=== PATIENT | male | born 1950 | race Two or more races ===

== ENCOUNTER 2020-05-08 06:04 | Inpatient (IN) | payer MEDICARE, OTHER ==
[2020-05-08] MEDS ORDERED: methylPREDNISolone SOD SUCCI 125 MG/2 ML VIAL IV STA (06:14)
[2020-05-08] MEDS ORDERED: IPRATROPIUM-ALBUTEROL 3 ML NEB INHALATION STA (06:14)
[2020-05-08] MEDS ORDERED: SODIUM CHLORIDE 0.9% 1,000 ML IV STA (06:14)
--- NOTE | 2020-05-08 06:22 | ED ---
SOB HPI <Alberto Lemus - Last Filed: 05/08/20 08:52> - General Source: RN notes reviewed, old records reviewed <Mounika Tran - Last Filed: 05/08/20 08:53> - General Stated Complaint: SOB Time Seen by Provider: 05/08/20 06:06 - History of Present Illness Initial Comments: Patient is a 69-year-old male who presents emergency room today with chief complaint of worsening shortness of breath for the past 2 days. Patient states that he does not typically wear oxygen. He reports that he has been wheezing and having productive cough. Patient states that he's had no history of sick contacts. He does not see a assistant surveyor at this time. Patient reports he did use an albuterol treatment prior to coming to the emergency Department via EMS. He denies any specific chest pain. He is current smoker. Patient states that his PCP is Dr. Santiago. He states that over the past couple of days ago had some episodes of vomiting. He states he believes he is withdrawing from his chronic pain medications. He's been out of them for the past 5 days. Pt was told to see a pain management doctor for further Rx. (Mounika Tran) - Related Data Home Medications Medication Instructions Recorded Confirmed Albuterol Nebulized [Ventolin 2.5 mg INHALATION RT-TID PRN 05/08/20 05/08/20 Nebulized] Albuterol Sulfate [Albuterol 2 puff PO RT-Q4H PRN 05/08/20 05/08/20 Sulfate Hfa] Arformoterol Tartrate [Brovana] 15 mcg INHALATION RT-BID 05/08/20 Budesonide [Pulmicort] 0.25 mg INHALATION RT-BID 05/08/20 Chlorthalidone [Hygroton] 25 mg PO DAILY 05/08/20 05/08/20 Diazepam [Valium] 5 mg PO BID PRN 05/08/20 05/08/20 Hydrocodone/Acetaminophen [[place] 1 tab PO Q6H PRN 05/08/20 05/08/20 10-325] Metoprolol Tartrate [Lopressor] 50 mg PO BID 05/08/20 05/08/20 Omeprazole 20 mg PO DAILY 05/08/20 05/08/20 Potassium Chloride ER [K-Dur 20] 20 meq PO DAILY 05/08/20 05/08/20 amLODIPine [Norvasc] 10 mg PO DAILY 05/08/20 metFORMIN HCL 500 mg PO BID-W/MEALS 05/08/20 05/08/20 Allergies Allergy/AdvReac Type Severity Reaction Status Date / Time Penicillins Allergy Unknown Verified 05/08/20 08:25 Review of Systems ROS Other: All systems not noted in ROS Statement are negative. <Alberto Lemus - Last Filed: 05/08/20 08:52> ROS Other: All systems not noted in ROS Statement are negative. Constitutional: Reports: chills. Denies: weakness, weight change, night sweats Eyes: Denies: eye pain ENT: Denies: ear pain, throat pain Respiratory: Reports: cough, dyspnea, wheezes. Denies: hemoptysis Cardiovascular: Denies: chest pain Endocrine: Reports: fatigue. Denies: heat or cold intolerance, polydipsia Gastrointestinal: Reports: nausea, vomiting. Denies: abdominal pain Genitourinary: Denies: urgency, dysuria Musculoskeletal: Denies: back pain Skin: Denies: rash, lesions Neurological: Denies: headache Psychiatric: Denies: anxiety, depression Hematological/Lymphatic: Denies: easy bleeding <Mounika Tran - Last Filed: 05/08/20 08:53> ROS Statement: Those systems with pertinent positive or pertinent negative responses have been documented in the HPI. Past Medical History Past Medical History: COPD History of Any Multi-Drug Resistant Organisms: None Reported Past Surgical History: Unable to Obtain Past Anesthesia/Blood Transfusion Reactions: Unable to Obtain Smoking Status: Current every day smoker <Mounika Tran - Last Filed: 05/08/20 08:53> General Exam General appearance: alert, in no apparent distress Head exam: Present: atraumatic, normocephalic, normal inspection Eye exam: Present: normal appearance, PERRL, EOMI. Absent: scleral icterus, conjunctival injection, periorbital swelling ENT exam: Present: normal exam, mucous membranes moist Neck exam: Present: normal inspection. Absent: tenderness, meningismus, lymphadenopathy Respiratory exam: Present: wheezes (Patient has diffuse wheezing and rhonchi.), rhonchi. Absent: normal lung sounds bilaterally Cardiovascular Exam: Present: regular rate, normal rhythm, normal heart sounds. Absent: systolic murmur, diastolic murmur, rubs, gallop, clicks GI/Abdominal exam: Present: soft, normal bowel sounds. Absent: distended, tenderness, guarding, rebound, rigid Extremities exam: Present: normal inspection, full ROM, normal capillary refill. Absent: tenderness, pedal edema, joint swelling, calf tenderness Back exam: Present: normal inspection, other (Some abrasions over the lower extremity) Neurological exam: Present: alert, oriented X3, CN II-XII intact Psychiatric exam: Present: normal affect, normal mood Skin exam: Present: warm, dry, intact, normal color. Absent: rash <Mounika Tran - Last Filed: 05/08/20 08:53> - General Exam Comments Initial Comments: This is a 69-year-old male. Alert and oriented 3. Patient is generally unkempt. (Mounika Tran) Course <Alberto Lemus - Last Filed: 05/08/20 08:52> <Mounika Tran - Last Filed: 05/08/20 08:53> Vital Signs 05/08/20 05/08/20 05/08/20 06:16 06:45 07:04 Temperature 97.6 F Pulse Rate 73 66 64 Respiratory 18 Rate Blood Pressure 168/79 O2 Sat by Pulse 95 Oximetry 05/08/20 08:25 Temperature Pulse Rate 67 Respiratory 18 Rate Blood Pressure 141/64 O2 Sat by Pulse 97 Oximetry - Reevaluation(s) Reevaluation #1: 05/08/20 08:52 Patient has gone to the floor. Repeat sodium level CXIII. Case was discussed with Dr. Brady who is okay with patient being at the floor and will call them for additional orders (Alberto Lemus) 05/08/20 08:21 EKG performed 8:01 AM shows sinus rhythm with premature atrial, axis. Nonspe cific intraventricular conduction delay. Borderline EKG. Ventricular rate is 71 bpm. Intervals 124 ms. QS duration is 122 ms. QT QTc is 438/475 ms. (Mounika Tran) Medical Decision Making - Lab Data Result diagrams: 05/08/20 06:45 05/08/20 08:14 <Alberto Lemus - Last Filed: 05/08/20 08:52> - Lab Data Result diagrams: 05/08/20 06:45 05/08/20 08:14 - Radiology Data Radiology results: report reviewed <ChelseaMounika - Last Filed: 05/08/20 08:53> - Medical Decision Making Patient reevaluated and reexamined by myself, Dr. Lemus. Reported low sodium. Patient has irregular heartbeat with appearance of A. fib on the monitor. Repeat EKG will be checked. Patient does have wheezing throughout lung mclaughlin. I do agree with PA findings. This includes diagnostic interpretation and treatment plan. Case was discussed in detail with Dr. Mcnair, who will admit covering for Dr. Santiago. Patient is updated. (Alberto Lemus) Patient is a 69-year-old male with a history of smoking and history of asthma and COPD. He presents emergency department today for concern for shortness of breath for the past 2 days. On exam his diffuse wheezing on his lung sounds. He reports productive cough. Patient is given DuoNeb treatments did have some improvement but continues to wheeze. Patient had lab work obtained. Is found to be significantly hyponatremic with sodium of 114. This appeared checked. He reports some vomiting this week in relation to concern for withdrawal from pain medication. He denies any abdominal pain or chest pains. Patient was given place him that of his magnesium and magnesium levels 1.3. He was started on azithromycin and Rocephin for COPD exacerbation as well as IV steroids. Patient initially arrived she was in sinus rhythm and on recheck by Dr. Lemus, saw that patient was to be on A. fib on the monitor. Repeat EKG performed did not show A. fib. I was initially going to put the Patient on heparin but with second EKG showing A. fib this was discontinued. We will also continue with a ca rdiology consult per Dr. Lemus for possible transient A. fib. We will also have consults to Dr. Jones for COPD exacerbation. (Mounika Tran) - Lab Data Lab Results 05/08/20 05/08/20 05/08/20 Range/Units 06:45 06:45 06:45 WBC 13.9 H (3.8-10.6) k/uL RBC 4.84 (4.30-5.90) m/uL Hgb 14.4 (13.0-17.5) gm/dL Hct 41.5 (39.0-53.0) % MCV 85.7 (80.0-100.0) fL MCH 29.8 (25.0-35.0) pg MCHC 34.7 (31.0-37.0) g/dL RDW 12.9 (11.5-15.5) % Plt Count 357 (150-450) k/uL Neutrophils % 80 % Lymphocytes % 11 % Monocytes % 7 % Eosinophils % 2 % Basophils % 0 % Neutrophils # 11.1 H (1.3-7.7) k/uL Lymphocytes # 1.5 (1.0-4.8) k/uL Monocytes # 0.9 (0-1.0) k/uL Eosinophils # 0.3 (0-0.7) k/uL Basophils # 0.1 (0-0.2) k/uL PT 9.7 (9.0-12.0) sec INR 0.9 (<1.2) APTT 25.2 (22.0-30.0) sec Sodium 114 L* (137-145) mmol/L Potassium 3.5 (3.5-5.1) mmol/L Chloride 74 L* (98-107) mmol/L Carbon Dioxide 30 (22-30) mmol/L Anion Gap 10 mmol/L BUN 8 L (9-20) mg/dL Creatinine 0.58 L (0.66-1.25) mg/dL Est GFR (CKD-EPI)AfAm >90 (>60 ml/min/1.73 sqM) Est GFR (CKD-EPI)NonAf >90 (>60 ml/min/1.73 sqM) Glucose 110 H (74-99) mg/dL Plasma Lactic Acid Wes (0.7-2.0) mmol/L Calcium 8.3 L (8.4-10.2) mg/dL Magnesium 1.3 L (1.6-2.3) mg/dL Total Bilirubin 1.4 H (0.2-1.3) mg/dL AST 29 (17-59) U/L ALT 19 (4-49) U/L Alkaline Phosphatase 69 (38-126) U/L Troponin I (0.000-0.034) ng/mL NT-Pro-B Natriuret Pep pg/mL Total Protein 6.2 L (6.3-8.2) g/dL Albumin 3.7 (3.5-5.0) g/dL 05/08/20 05/08/20 05/08/20 Range/Units 06:45 06:45 06:45 WBC (3.8-10.6) k/uL RBC (4.30-5.90) m/uL Hgb (13.0-17.5) gm/dL Hct (39.0-53.0) % MCV (80.0-100.0) fL MCH (25.0-35.0) pg MCHC (31.0-37.0) g/dL RDW (11.5-15.5) % Plt Count (150-450) k/uL Neutrophils % % Lymphocytes % % Monocytes % % Eosinophils % % Basophils % % Neutrophils # (1.3-7.7) k/uL Lymphocytes # (1.0-4.8) k/uL Monocytes # (0-1.0) k/uL Eosinophils # (0-0.7) k/uL Basophils # (0-0.2) k/uL PT (9.0-12.0) sec INR (<1.2) APTT (22.0-30.0) sec Sodium (137-145) mmol/L Potassium (3.5-5.1) mmol/L Chloride (98-107) mmol/L Carbon Dioxide (22-30) mmol/L Anion Gap mmol/L BUN (9-20) mg/dL Creatinine (0.66-1.25) mg/dL Est GFR (CKD-EPI)AfAm (>60 ml/min/1.73 sqM) Est GFR (CKD-EPI)NonAf (>60 ml/min/1.73 sqM) Glucose (74-99) mg/dL Plasma Lactic Acid Wes 1.0 (0.7-2.0) mmol/L Calcium (8.4-10.2) mg/dL Magnesium (1.6-2.3) mg/dL Total Bilirubin (0.2-1.3) mg/dL AST (17-59) U/L ALT (4-49) U/L Alkaline Phosphatase (38-126) U/L Troponin I <0.012 (0.000-0.034) ng/mL NT-Pro-B Natriuret Pep 82 pg/mL Total Protein (6.3-8.2) g/dL Albumin (3.5-5.0) g/dL 05/08/20 06:22 EKG performed at 6:18 AM shows sinus rhythm with PACs, specific intraventricular conduction delay. Borderline EKG. Ventricular rate of 73 bpm. ID interval is 194 ms. QRS ration is 120 ms. QT QTc is 432/475 ms. (Mounika Tran) - Radiology Data Mild interstitial density may chronic or technical. Correlate to exclude br onchitis or asthma. No focal infiltrate. (Mounika Tran) Critical Care Time Critical Care Time: Yes Total Critical Care Time: 32 <Mounika Tran - Last Filed: 05/08/20 08:53> Disposition <Alberto Lemus - Last Filed: 05/08/20 08:52> Is patient prescribed a controlled substance at d/c from ED?: No Time of Disposition: 07:59 <Mounika Tran - Last Filed: 05/08/20 08:53> Clinical Impression: COPD exacerbation, Hyponatremia, Hypomagnesemia, New onset a-fib Disposition: ADMITTED IP TO THIS HOSP Condition: Stable
[2020-05-08 07:07] LABS: Basophils # (A) 0.1 k/uL (0-0.2); Basophils % (A) 0 %; Eosinophils # (A) 0.3 k/uL (0-0.7); Eosinophils % (A) 2 %; HCT 41.5 % (39.0-53.0); HGB 14.4 gm/dL (13.0-17.5); Lymphocytes # (A) 1.5 k/uL (1.0-4.8); Lymphocytes % (A) 11 %; MCH 29.8 pg (25.0-35.0); MCHC 34.7 g/dL (31.0-37.0); MCV 85.7 fL (80.0-100.0); Mean Platelet Volume 6.8; Monocytes # (A) 0.9 k/uL (0-1.0); Monocytes % (A) 7 %; Neutrophils # (A) 11.1 k/uL (1.3-7.7); Neutrophils % (A) 80 %; Platelet Count 357 k/uL (150-450); RBC 4.84 m/uL (4.30-5.90); RDW 12.9 % (11.5-15.5); WBC 13.9 k/uL (3.8-10.6)
[2020-05-08 07:14] LABS: INR 0.9 (<1.2); Partial Thromboplastin Time 25.2 sec (22.0-30.0); Prothrombin Time 9.7 sec (9.0-12.0)
[2020-05-08 07:17] LABS: ALT 19 U/L (4-49); AST 29 U/L (17-59); African American GFR (CKD) >90 (>60 ml/min/1.73 sqM); Albumin 3.7 g/dL (3.5-5.0); Alkaline Phosphatase 69 U/L (38-126); Anion Gap 10 mmol/L; Blood Urea Nitrogen 8 mg/dL (9-20); Calcium 8.3 mg/dL (8.4-10.2); Carbon Dioxide 30 mmol/L (22-30); Glucose 110 mg/dL (74-99); Magnesium 1.3 mg/dL (1.6-2.3); Non-African American GFR(CKD) >90 (>60 ml/min/1.73 sqM); Potassium 3.5 mmol/L (3.5-5.1); Total Bilirubin 1.4 mg/dL (0.2-1.3); Total Protein 6.2 g/dL (6.3-8.2)
--- NOTE | 2020-05-08 07:22 | XR ---
EXAMINATION TYPE: XR chest 2V DATE OF EXAM: 05/08/2020 COMPARISON: None HISTORY: 69 year-old male shortness of breath, difficulty breathing TECHNIQUE: AP and lateral views FINDINGS: The cardiomediastinal silhouette, aorta, and pulmonary vasculature are within normal limits. Mild int erstitial prominence as a chronic appearance. No consolidation or pleural effusion seen. Diffuse hazy densities relating to large patient body habitus. IMPRESSION: Mild interstitial density may be chronic or technical. Correlate to exclude bronchitis or asthma. No focal infiltrate.
[2020-05-08 07:30] LABS: Chloride 74 mmol/L (98-107); Sodium 114 mmol/L (137-145)
[2020-05-08] MEDS ORDERED: cefTRIAXone IN SWFI 1,000 MG/10 ML SYRINGE IVP STA (07:40)
[2020-05-08] MEDS ORDERED: AZITHROMYCIN 500 MG TAB PO STA (07:40)
[2020-05-08] MEDS ORDERED: MAGNESIUM SULFATE-D5W PMX 1 GM in DEXTROSE/WATER 1 100ML.BAG IVPB ONE ×2 (07:55→09:30)
[2020-05-08] MEDS ORDERED: HEPARIN SODIUM,PORCINE 5,000 UNIT/ML 1 ML VIAL IV PRN (08:03)
[2020-05-08] MEDS ORDERED: HEPARIN SODIUM,PORCINE 5,000 UNIT/ML 1 ML VIAL IV ONE (08:03)
[2020-05-08] MEDS ORDERED: HEPARIN SOD,PORK IN 0.45% NACL 25,000 UNIT in 0.45% NACL 1 250ML.BAG IV SCH (08:15)
[2020-05-08] MEDS ORDERED: diazePAM 5 MG TAB PO PRN (08:33)
[2020-05-08] MEDS ORDERED: POTASSIUM CHLORIDE ER 20 MEQ TAB.ER PO SCH (09:00)
[2020-05-08] MEDS ORDERED: CHLORTHALIDONE 25 MG TAB PO SCH (09:00)
[2020-05-08 10:09] LABS: Uric Acid 3.1 mg/dL (3.5-8.5)
[2020-05-08] MEDS: HYDROcodone/APAP 10-325MG 1 EACH TAB PO PRN ×3 (10:40→20:22)
[2020-05-08] MEDS: METOPROLOL TARTRATE 50 MG TAB PO SCH ×2 (10:40→20:23)
[2020-05-08] MEDS: PANTOPRAZOLE 40 MG TABLET PO SCH (10:41)
[2020-05-08] MEDS: NICOTINE 21MG/24HR PATCH TRANSDERM SCH (10:41)
[2020-05-08] MEDS: amLODIPine 10 MG TAB PO SCH (10:41)
[2020-05-08] MEDS ORDERED: KETOROLAC 15 MG/ML 1 ML VIAL IVP PRN (10:46)
[2020-05-08 10:50] LABS: Appearance,Urine Clear (Clear); Bilirubin,Urine Negative (Negative); Blood,Urine Trace (Negative); Color,Urine Yellow; Glucose,Urine (UA) Negative (Negative); Ketones,Urine Negative (Negative); Leukocyte Esterase,Urine Negative (Negative); Mucus,Urine Rare /hpf; Nitrite,Urine Negative (Negative); PH, Urine 6.5 (5.0-8.0); Protein,Urine Trace (Negative); RBC,Urine 5 /hpf (0-5); Specific Gravity,Urine 1.015 (1.001-1.035); Squamous Epithelial Cell,Urine 2 /hpf (0-4); Urobilinogen,Urine <2.0 mg/dL (<2.0); WBC,Urine 1 /hpf (0-5)
[2020-05-08] MEDS ORDERED: methylPREDNISolone SOD SUCCI 125 MG/2 ML VIAL IV SCH (12:00)
--- NOTE | 2020-05-08 12:33 | P.HPIM ---
History of Present Illness patient is a pleasant 69-year-old male with known history of COPD came in with complaints of a shortness of breath found to be in COPD exacerbation does have wheezing on exam was started on steroids steroids and patient was started on oxygen was subsequently admitted.patient is also found to have severe hyponatremia with sodium of 140 and patient is on chlorthalidone at home. Patient also has low magnesium of 1.3 , patient the has not been taking his amlodipine as well which she was started on right now. Patient out of his in halers as well. She denied any fever chills. Chest x-ray did not show pneumonia it shows some chronic interstitial infiltrate. Patient was having suicidal ideations because of which patient has a sitter and the psychiatric was consulted.patient can use to smoke patient missed his appointment with his head neck surgeon. Review of Systems REVIEW OF SYSTEMS: CONSTITUTIONAL: No fever, no malaise, no fatigue. HEENT: No recent visual problems or hearing problems. Denied any sore throat. CARDIOVASCULAR: No chest pain, orthopnea, PND, no palpitations, no syncope. PULMONARY no cough, no hemoptysis. GASTROINTESTINAL: No diarrhea, no nausea, no vomiting, no abdominal pain. NEUROLOGICAL: No headaches, no weakness, no numbness. HEMATOLOGICAL: Denies any bleeding or petechiae. GENITOURINARY: Denies any burning micturition, frequency, or urgency. MUSCULOSKELETAL/RHEUMATOLOGICAL: Denies any joint pain, swelling, or any muscle pain. ENDOCRINE: Denies any polyuria or polydipsia. The rest of the 14-point review of systems is negative. Past Medical History Past Medical History: Asthma, COPD, Diabetes Mellitus, GERD/Reflux, Hyperlipidemia, Hypertension, Osteoarthritis (OA), Pneumonia Additional Past Medical History / Comment(s): Bronchitis, was using home oxygen but states machine is no longer working, chronic pain in hips/knees/elbows, falls, "borderline" diabetes, past ETOH abuse but states has not drank in 2 years. History of Any Multi-Drug Resistant Organisms: None Reported Past Surgical History: Appendectomy Additional Past Surgical History / Comment(s): Colonoscopy Past Anesthesia/Blood Transfusion Reactions: No Reported Reaction Smoking Status: Current every day smoker - Past Family History Father Additional Family Medical History / Comment(s): Father was an alcoholic but was able to quit drinking Mother Additional Family Medical History / Comment(s): Mother was an alcoholic. Medications and Allergies Home Medications Medication Instructions Recorded Confirmed Type Albuterol Nebulized [Ventolin 2.5 mg INHALATION RT-TID PRN 05/08/20 05/08/20 History Nebulized] Albuterol Sulfate [Albuterol 2 puff PO RT-Q4H PRN 05/08/20 05/08/20 History Sulfate Hfa] Chlorthalidone [Hygroton] 25 mg PO DAILY 05/08/20 05/08/20 History Diazepam [Valium] 5 mg PO BID PRN 05/08/20 05/08/20 History Hydrocodone/Acetaminophen [[place] 1 tab PO Q6H PRN 05/08/20 05/08/20 History 10-325] Metoprolol Tartrate [Lopressor] 50 mg PO BID 05/08/20 05/08/20 History Omeprazole 20 mg PO DAILY 05/08/20 05/08/20 History Potassium Chloride ER [K-Dur 20] 20 meq PO DAILY 05/08/20 05/08/20 History metFORMIN HCL 500 mg PO BID-W/MEALS 05/08/20 05/08/20 History Allergies Allergy/AdvReac Type Severity Reaction Status Date / Time Penicillins Allergy Unknown Verified 05/08/20 08:25 Physical Exam Vitals: Vital Signs Temp Pulse Resp BP Pulse Ox 05/08/20 08:25 67 18 141/64 97 05/08/20 07:04 64 05/08/20 06:45 66 05/08/20 06:16 97.6 F 73 18 168/79 95 Intake and Output 05/07/20 05/08/20 05/08/20 22:59 06:59 14:59 Intake Total 300 Output Total 400 Balance -100 Intake: Intake, IV Titration 100 Amount Magnesium Sulfate-D5w Pmx 100 1 gm In Dextrose/Water 1 100ml.bag @ 100 mls/hr IVPB ONCE ONE Rx#: [id number] Oral 200 Output: Urine 400 Other: # Voids 0 # Bowel Movements 0 Weight 124.738 kg 124.738 kg PHYSICAL EXAMINATION: GENERAL: The patient is alert and oriented x3, not in any acute distress. Well developed, well nourished. HEENT: Pupils are round and equally reacting to light. EOMI. No scleral icterus. No conjunctival pallor. Normocephalic, atraumatic. No pharyngeal erythema. No thyromegaly. CARDIOVASCULAR: S1 and S2 present. No murmurs, rubs, or gallops. PULMONARY:significant x-ray wheezing and decreased air entry into bilateral lung mclaughlin ABDOMEN: Soft, nontender, nondistended, normoactive bowel sounds. No palpable organomegaly. MUSCULOSKELETAL: No joint swelling or deformity. EXTREMITIES: No cyanosis, clubbing, or pedal edema. NEUROLOGICAL: Gross neurological examination did not reveal any focal deficits. SKIN: No rashes. Results CBC & Chem 7: 05/08/20 06:45 05/08/20 08:14 Labs: Abnormal Lab Results - Last 24 Hours (Table) 05/08/20 05/08/20 05/08/20 Range/Units 06:45 06:45 08:14 WBC 13.9 H (3.8-10.6) k/uL Neutrophils # 11.1 H (1.3-7.7) k/uL Sodium 114 L* 113 L* (137-145) mmol/L Chloride 74 L* (98-107) mmol/L BUN 8 L (9-20) mg/dL Creatinine 0.58 L (0.66-1.25) mg/dL Glucose 110 H (74-99) mg/dL Osmolality (280-301) mosm/kg Uric Acid (3.5-8.5) mg/dL Calcium 8.3 L (8.4-10.2) mg/dL Magnesium 1.3 L (1.6-2.3) mg/dL Total Bilirubin 1.4 H (0.2-1.3) mg/dL Total Protein 6.2 L (6.3-8.2) g/dL Urine Protein (Negative) Urine Blood (Negative) Urine Mucus (None) /hpf 05/08/20 05/08/20 Range/Units 08:14 10:30 WBC (3.8-10.6) k/uL Neutrophils # (1.3-7.7) k/uL Sodium (137-145) mmol/L Chloride (98-107) mmol/L BUN (9-20) mg/dL Creatinine (0.66-1.25) mg/dL Glucose (74-99) mg/dL Osmolality 231 L* (280-301) mosm/kg Uric Acid 3.1 L (3.5-8.5) mg/dL Calcium (8.4-10.2) mg/dL Magnesium (1.6-2.3) mg/dL Total Bilirubin (0.2-1.3) mg/dL Total Protein (6.3-8.2) g/dL Urine Protein Trace H (Negative) Urine Blood Trace H (Negative) Urine Mucus Rare H (None) /hpf Thrombosis Risk Factor Assmnt - Choose All That Apply Any of the Below Risk Factors Present?: Yes Each Factor Represents 1 point: Abnormal pulmonary function (COPD), Obesity (BMI >25) Other Risk Factors: Yes Each Risk Factor Represents 2 Points: Age 61-74 years Other congenital or acquired thrombophilia - If yes, enter type in comment: No Thrombosis Risk Factor Assessment Total Risk Factor Score: 4 Thrombosis Risk Factor Assessment Level: Moderate Risk Assessment and Plan Plan: -acute hypercapnic respiratory failure: Secondary to COPD exacerbation patient will continue on systemic steroids but will cut down discharge from every 6 hourly to twice a day 40 mg. Patient doesn't have any evidence of pneumonia p atient will be continued on azithromycin -Small ALLERGIC rash in the right arm will monitor this rash if , if it worsens will have to discontinue azithromycin -Severe hyponatremia: Secondary to chlorthalidone which was discontinued and patient is on IV fluids at this time. -Suicidal ideation: ordered sitter and second was consulted patient was having these ideations for about a week hypogastrics vinson's disease -Type 2 diabetes mellitus patient will be continued on home regimen along with sliding scale for steroids -Hyperlipidemia Hypertension -depression -continued nicotine abuse: Counseling was provided
[2020-05-08] MEDS: IPRATROPIUM 0.5 MG/2.5 ML NEBU INHALATION SCH ×3 (12:53→19:57)
--- NOTE | 2020-05-08 13:52 | P.CN ---
Psychiatric Consult - . Consult date: 05/08/20 Consult:: 05/08/20 13:37 IDENTIFYING DATA: This patient is a 69-year-old male who currently lives alone and is has 2 kids however his youngest daughter several years ago. HISTORY OF PRESENT ILLNESS: The patient presented to the hospital yesterday with the complaint of increasing shortness of breath for the past 2 days. Patient was reporting the ER that he is having wheezing and cough. Patient also stated that he has been out of his chronic pain medications for the past 5 days. Patient's sodium was 114 on admission and was admitted for COPD exacerbation and hyponatremia and new-onset A. fib. Psychiatry is consulted for suicidal ideations and as mentioned in the EMR patient stated to a staff member that he had thoughts of jumping out of a window. Patient was seen at the bedside with a sitter and was agreeable to seek a contract technical writer. He states that he is happy to speak with a psychiatrist today. He states that he currently is struggling living alone and feels "isolated" and states that he has family come up and visit him every 6 months. He states that he does have a good neighbor who helps him out and his is bored. He states that he is tired of his "pain all the time" and spoke about pain in most of his joints. He states that his doctor took him off his pain medications and is referring him to pain management. He claims that his dose of pain medications is "not high enough". When asked about his mood he states that "it's all related to my pain and my COPD, if that gets better I will feel much better". He claims that currently he is not feeling depressed however did report having chronic suicidal thoughts which have been fleeting for several years. He denied any previous suicide attempts. He denies any current plan for suicide in the hospital. He states that his sleep has been poor and his appetite has been fair. He claims that he does have a gun in his closet at home. At this time patient denies any homical ideations, intent or plan. Patient denies any auditory, visual hallucinations and denies any paranoia or delusions. Patients admits to using cigarettes daily and claims that he quit alcohol 2 years ago. PAST PSYCHIATRIC HISTORY: Patient has a a history of depression and chronic suicidal thoughts. He states that he has been on Valium for "my anxiety". Patient denies any previous psychiatric hospitalizations. Patient denies any psychiatric outpatient follow-up. Patient denies any history of suicide attempts in the past. PAST MEDICAL HISTORY: COPD, chronic pain, hypertension, diabetes mellitus. ALLERGIES: as per EMR. CHEMICAL DEPENDENCY HISTORY: as per HPI. FAMILY PSYCHIATRIC/SUBSTANCE USE HISTORY: denies SOCIAL HISTORY: Patient was born and raised in [place]. He states that he lives alone in a house and is has 2 kids and his youngest daughter from liver cancer. He states that he completed 1 year of college and worked in the "[employer]" working for [employer]. He states that he left the job 12 years ago. He denied any legal or history. MENTAL STATUS EXAM: General Appearance: Patient appears to be overweight, stated age is alert, pleasant, and attempts to be cooperative. Patient appears to have fair hygiene and grooming wearing hospital gown with fair eye contact. Behavior: Patient is calmly lying in bed without any agitated behavior. Attempts to be cooperative. Speech: Patient's speech is fluent and nonpressured. Mood/Affect: Patient reports their mood is "ok", affect is congruent Suicidality/Homicidality: Patient denies having any current suicidal or homicidal ideation intent or plan. He did mention that he has chronic suicidal ideations which have been fleeting. Perceptions: Patient denies any visual hallucinations and denies any auditory hallucinations Though content/process: There is no evidence of any delusional thought content and thought process is linear and tangential/circumstantial. Memory and concentration: AOX2, patient does not know the current date today and believes it is April 2020, grossly intact for the purposes of this session. Cannot spell "WORLD" backwards. He can list the previous 2 presidents. Fair abstraction. Judgment and insight: Limited IMPRESSIONS: Depressive disorder unspecified pain disorder with related psychological factors PLAN: -At this time patient DOES NOT meet criteria for inpatient psychiatric admission however will continue to follow along and help with treatment to see if patient will require psychiatric hospitalization or not. -Delirium precautions recommended with patient including - avoiding use of narcotics and BREAKFAST SERVER sedatives, limit anticholinergic medications when possible, frequent re-orientation, minimize use of restraints, open window shades during the day and close them at night -Would recommend the following medication changes/additions: Decreased Valium 2 mg 3 times a day when necessary for anxiety with plan to slowly titrated off. Started patient on Cymbalta 30 mg daily for mood/anxiety/pain. Will start patient on melatonin 5 mg nightly for insomnia. -Continue 1:1 sitter for safety, tomorrow we will reevaluate if this can be discontinued. -Will continue to follow along -Would recommend that air brake worker/case specialist to look into possible placement for patient as she is not able to care for himself at home alone due to his comorbidities and has access to a gun. -Please contact with any questions.
--- NOTE | 2020-05-08 14:40 | P.CNPUL ---
History of Present Illness Consult date: 05/08/20 Reason for consult: dyspnea, COPD History of present illness: 69-year-old morbidly obese male patient, a chronic smoker with known history of COPD, came into the hospital because of worsening shortness of breath, chest tightness and wheezing.. During this current admission the patient was also found to be hyponatremic. His sodium level was 113 and the patient was taking chlorthalidone on outpatient basis. Note that this patient has been followed up by Dr. Santiago his primary care physician. He has chronic arthritic pain for which she was being given hydrocodone outpatient basis at a dose of 10 mg 4 times a day. He was recently taken off the painkillers and he was asked to follow-up with pain management or pain. The patient has been able to establish himself with the pain service and is currently off treatment. He has been havin g arthritic pain in his hip ankle and knees bilaterally. No history of any spine injury or any other traumatic skeletal injuries. The patient's main concern during my interview was his pain control. He did not seem to be confused despite his lower sodium level. He seems to be appropriate. No ag itation. He is currently on a normal saline which is running at 100 mL an hour. Follow-up sodium level is pending for now. The patient was taken off the chlorthalidone. In terms of his COPD exacerbation, the patient remains on DuoNeb nebulized treatments around the clock and IV Solu Medrol 4 mg every 12 hours. Shows mild interstitial changes bilaterally. The cardiac structures were essentially within normal limits. There is mild interstitial prominence as there is no other consolidation or airspace disease. The patient has a large body habitus. Denies having any cardiac disease. Denies having any congestion heart failure. Most of the medial pulmonary embolism. The patient is obese with a BMI of 37.3. No history of alcohol drinking. He smokes cigarettes almost 1.5 pack of cigarettes on a daily basis. He is EKG is consistent with a normal sinus rhythm with premature atrial complexes. Review of Systems REVIEW OF SYSTEMS: CONSTITUTIONAL: No fever, no malaise, no fatigue. HEENT: No recent visual problems or hearing problems. Denied any sore throat. CARDIOVASCULAR: No chest pain, orthopnea, PND, no palpitations, no syncope. PULMONARY no cough, no hemoptysis. The patient has increased shortness of breath. His exercise capacity is quite limited and the patient states that he is unable to perform activities of daily today life without having trouble breathing. While doing his groceries, he uses a motorized scooter. His performance and functional status is essentially poor. GASTROINTESTINAL: No diarrhea, no nausea, no vomiting, no abdominal pain. NEUROLOGICAL: No headaches, no weakness, no numbness. HEMATOLOGICAL: Denies any bleeding or petechiae. GENITOURINARY: Denies any burning micturition, frequency, or urgency. MUSCULOSKELETAL/RHEUMATOLOGICAL: The patient has chronic pain involving various joints in his body which he attributes to osteoarthritis and the patient was taken narcotic medications an outpatient basis. ENDOCRINE: Denies any polyuria or polydipsia. The rest of the 14-point review of systems is negative. Past Medical History Past Medical History: COPD, Diabetes Mellitus, GERD/Reflux, Hyperlipidemia, Hypertension, Osteoarthritis (OA) Additional Past Medical History / Comment(s): COPD, chronic pain in hips/knees/elbows, falls, "borderline" diabetes, past ETOH abuse but states has not drank in 2 years. History of Any Multi-Drug Resistant Organisms: None Reported Past Surgical History: Appendectomy Additional Past Surgical History / Comment(s): Colonoscopy Past Anesthesia/Blood Transfusion Reactions: No Reported Reaction Smoking Status: Current every day smoker - Past Family History Father Additional Family Medical History / Comment(s): Father was an alcoholic but was able to quit drinking Mother Additional Family Medical History / Comment(s): Mother was an alcoholic. Medications and Allergies Home Medications Medication Instructions Recorded Confirmed Type Albuterol Nebulized [Ventolin 2.5 mg INHALATION RT-TID PRN 05/08/20 05/08/20 History Nebulized] Albuterol Sulfate [Albuterol 2 puff PO RT-Q4H PRN 05/08/20 05/08/20 History Sulfate Hfa] Chlorthalidone [Hygroton] 25 mg PO DAILY 05/08/20 05/08/20 History Diazepam [Valium] 5 mg PO BID PRN 05/08/20 05/08/20 History Hydrocodone/Acetaminophen [[place] 1 tab PO Q6H PRN 05/08/20 05/08/20 History 10-325] Metoprolol Tartrate [Lopressor] 50 mg PO BID 05/08/20 05/08/20 History Omeprazole 20 mg PO DAILY 05/08/20 05/08/20 History Potassium Chloride ER [K-Dur 20] 20 meq PO DAILY 05/08/20 05/08/20 History metFORMIN HCL 500 mg PO BID-W/MEALS 05/08/20 05/08/20 History Allergies Allergy/AdvReac Type Severity Reaction Status Date / Time Penicillins Allergy Unknown Verified 05/08/20 08:25 Physical Exam Vitals: Vital Signs Temp Pulse Resp BP Pulse Ox 05/08/20 13:09 68 05/08/20 12:54 72 05/08/20 08:25 67 18 141/64 97 05/08/20 07:04 64 05/08/20 06:45 66 05/08/20 06:16 97.6 F 73 18 168/79 95 Intake and Output 05/07/20 05/08/20 05/08/20 22:59 06:59 14:59 Intake Total 540 Output Total 400 Balance 140 Intake: Intake, IV Titration 100 Amount Magnesium Sulfate-D5w Pmx 100 1 gm In Dextrose/Water 1 100ml.bag @ 100 mls/hr IVPB ONCE ONE Rx#: [id number] Oral 440 Output: Urine 400 Other: # Voids 0 # Bowel Movements 0 Weight 124.738 kg 124.738 kg Gen. appearance obese, comfortable likely distress Head exam was generally normal. There was no scleral icterus or corneal arcus. Mucous membranes were moist. Neck was supple and without jugular venous distension, thyromegaly, or carotid bruits. Carotids were easily palpable bilaterally. There was no adenopathy. The patient is a metabolic S4 that is no goiter or neck masses Lung sounds are diminished and the patient scattered expiratory wheezes throughout the lung his bilaterally Cardiac exam revealed the PMI to be normally situated and sized. The rhythm was regular and no extrasystoles were noted during several minutes of auscultation. The first and second heart sounds were normal and physiologic splitting of the second heart sound was noted. There were no murmurs, rubs, clicks, or gallops. Abdominal exam revealed normal bowel sounds. The abdomen was soft, non-tender, and without masses, organomegaly, or appreciable enlargement of the abdominal aorta. Patient is overall obese and the patient's organs cannot be accurately palpated. Examination of the skin revealed no evidence of significant rashes, suspicious appearing nevi or other concerning lesions. Neurologically the patient is awake and alert and is no focal neurological deficits. Psychiatric examination the patient may have an underlying depression. Results - Laboratory Findings CBC and BMP: 05/08/20 06:45 05/08/20 08:14 PT/INR, D-dimer PT 9.7 sec (9.0-12.0) 05/08/20 06:45 INR 0.9 (<1.2) 05/08/20 06:45 Abnormal lab findings: Abnormal Labs 05/08/20 05/08/20 05/08/20 06:45 06:45 08:14 WBC 13.9 H Neutrophils # 11.1 H Sodium 114 L* 113 L* Chloride 74 L* BUN 8 L Creatinine 0.58 L Glucose 110 H Osmolality Uric Acid Calcium 8.3 L Magnesium 1.3 L Total Bilirubin 1.4 H Total Protein 6.2 L Urine Protein Urine Blood Urine Mucus 05/08/20 05/08/20 08:14 10:30 WBC Neutrophils # Sodium Chloride BUN Creatinine Glucose Osmolality 231 L* Uric Acid 3.1 L Calcium Magnesium Total Bilirubin Total Protein Urine Protein Trace H Urine Blood Trace H Urine Mucus Rare H - Diagnostic Findings Chest x-ray: image reviewed Assessment and Plan Plan: 1 acute COPD exacerbation with secondary shortness of breath 2 hyponatremia, chronicity is not known, probably chronic and the patient has been taken chlorthalidone outpatient basis. This was discontinued and the patient is currently on normal saline infusion. No altered mentation. No seizure activity. No confusion. 3 diabetes mellitus type 2 4 hypertension 5 hyperlipidemia 6 history of depression with questionable suicidal ideation the patient will be seen by psychiatry, and addition to history of anxiety. 7 obesity 8 chronic pain maintained on narcotic medication on outpatient basis in the form of hydrocodone. The pain medication was discontinued by his primary care physician and the patient is looking to get involved in a pain clinic regarding his chronic pain medication need. Plan Check sodium levels every 4 hours and will consider transferring this patient to the ICU if there is further drop in the sodium level or development of any new neurologic symptoms. Keep the chlorthalidone on hold Treat the COPD exacerbation with accommodation bronchodilators and steroids Psychiatric evaluation regarding the depression
--- NOTE | 2020-05-08 14:44 | P.NPCON ---
History of Present Illness - Reason for Consult hyponatremia - History of Present Illness Reason for consultation: Hyponatremia History of present illness: Patient is a 69-year-old male seen in consultation for hyponatremia. Patient's sodium level was 114 on admission and upon recheck it was 113. Patient is awake and alert. Patient presented to the hospital with worsening shortness of breath for the last 2-3 days. He does admit to a productive cough as well. Denies chest pain. Patient states his oral intake has been poor the last few days. He denies drinking excessive amounts of water but does admit to drinking about a gallon of iced tea every day. Additionally he was also on chlorthalidone outpatient. He denies any history of malignancy. No edema. Good urine output. No hematuria or dysuria. No personal or family history of renal disease. GFR at baseline. No evidence of fluid overload noted on chest x-ray. Patient does mention that he felt like shooting himself in the head if he did not come to the hospital. He's been followed by psychiatry. Vital signs are stable. General: The patient appeared well nourished and normally developed. HEENT: Head exam is unremarkable. Neck is without jugular venous distension. LUNGS: Breath sounds decreased. HEART: Rate and Rhythm are regular. ABDOMEN: Soft, nontender. EXTREMITITES: No clubbing, cyanosis, or edema. Past Medical History Past Medical History: Asthma, COPD, Diabetes Mellitus, GERD/Reflux, Hyperlipidemia, Hypertension, Osteoarthritis (OA), Pneumonia Additional Past Medical History / Comment(s): Bronchitis, was using home oxygen but states machine is no longer working, chronic pain in hips/knees/elbows, falls, "borderline" diabetes, past ETOH abuse but states has not drank in 2 years. History of Any Multi-Drug Resistant Organisms: None Reported Past Surgical History: Appendectomy Additional Past Surgical History / Comment(s): Colonoscopy Past Anesthesia/Blood Transfusion Reactions: No Reported Reaction Smoking Status: Current every day smoker - Past Family History Father Additional Family Medical History / Comment(s): Father was an alcoholic but was able to quit drinking Mother Additional Family Medical History / Comment(s): Mother was an alcoholic. Medications and Allergies Home Medications Medication Instructions Recorded Confirmed Type Albuterol Nebulized [Ventolin 2.5 mg INHALATION RT-TID PRN 05/08/20 05/08/20 History Nebulized] Albuterol Sulfate [Albuterol 2 puff PO RT-Q4H PRN 05/08/20 05/08/20 History Sulfate Hfa] Chlorthalidone [Hygroton] 25 mg PO DAILY 05/08/20 05/08/20 History Diazepam [Valium] 5 mg PO BID PRN 05/08/20 05/08/20 History Hydrocodone/Acetaminophen [[place] 1 tab PO Q6H PRN 05/08/20 05/08/20 History 10-325] Metoprolol Tartrate [Lopressor] 50 mg PO BID 05/08/20 05/08/20 History Omeprazole 20 mg PO DAILY 05/08/20 05/08/20 History Potassium Chloride ER [K-Dur 20] 20 meq PO DAILY 05/08/20 05/08/20 History metFORMIN HCL 500 mg PO BID-W/MEALS 05/08/20 05/08/20 History Allergies Allergy/AdvReac Type Severity Reaction Status Date / Time Penicillins Allergy Unknown Verified 05/08/20 08:25 Physical Exam Vitals: Vital Signs Temp Pulse Resp BP Pulse Ox 05/08/20 13:09 68 05/08/20 12:54 72 05/08/20 08:25 67 18 141/64 97 05/08/20 07:04 64 05/08/20 06:45 66 05/08/20 06:16 97.6 F 73 18 168/79 95 Intake and Output 05/07/20 05/08/20 05/08/20 22:59 06:59 14:59 Intake Total 540 Output Total 400 Balance 140 Intake: Intake, IV Titration 100 Amount Magnesium Sulfate-D5w Pmx 100 1 gm In Dextrose/Water 1 100ml.bag @ 100 mls/hr IVPB ONCE ONE Rx#: [id number] Oral 440 Output: Urine 400 Other: # Voids 0 # Bowel Movements 0 Weight 124.738 kg 124.738 kg Results - Lab Results Most recent lab results Calcium 8.3 mg/dL (8.4-10.2) L 05/08/20 06:45 Magnesium 1.3 mg/dL (1.6-2.3) L 05/08/20 06:45 05/08/20 06:45 05/08/20 08:14 Assessment and Plan Plan: Assessment: 1. Hypotonic hyponatremia. Patient appears euvolemic. Etiology is poor solute intake as well as excessive fluid intake. Also component of thiazide diuretic. Sodium level 113 this morning. Urine osmolality 480. Uric acid noted to be low which is seen in SIADH. No evidence of urinary retention. 2. Hypomagnesemia secondary to poor intake and diuretics. Status post placement. 3. Diabetes mellitus. 4. COPD exacerbation. 5. Benign hypertension. Stable. Plan: Hep-Lock IV fluids. 1200 mL fluid restriction. Check TSH. Discontinue nonsteroidals. Repeat sodium level this evening. Thank you for the consultation. I will continue to follow the patient with you during his hospital stay.
[2020-05-08] MEDS: HEPARIN SODIUM,PORCINE 5,000 UNIT/ML 1 ML VIAL SQ SCH ×2 (14:58→23:21)
[2020-05-08] MEDS: DULoxetine HCL 30 MG CAPSULE.DR PO SCH (14:59)
[2020-05-08 17:11] LABS: Glucose,Whole Blood 204 mg/dL (75-99)
[2020-05-08] MEDS: metFORMIN 500 MG TAB PO SCH (17:26)
[2020-05-08] MEDS: IPRATROPIUM-ALBUTEROL 3 ML NEB INHALATION PRN (18:02)
[2020-05-08] MEDS: FORMOTEROL FUMARATE 20 MCG/2 ML NEBU INHALATION SCH (18:02)
[2020-05-08] MEDS: BUDESONIDE 0.5 MG/2 ML NEBU INHALATION SCH (18:02)
[2020-05-08] MEDS ORDERED: BUDESONIDE 0.25 MG/2 ML NEBU INHALATION SCH (20:00)
[2020-05-08 20:14] LABS: Glucose,Whole Blood 208 mg/dL (75-99)
[2020-05-08] MEDS: INSULIN ASPART (NovoLOG) 100 UNIT/ML VIAL SQ SCH (20:24)
[2020-05-08] MEDS: methylPREDNISolone SOD SUCCI 40 MG/ML 1 ML VIAL IV SCH (20:24)
[2020-05-08] MEDS ORDERED: MELATONIN 5 MG TABLET PO SCH (21:00)
[2020-05-08] MEDS ORDERED: FAMOTIDINE 20 MG TAB PO SCH (21:00)
[2020-05-08] MEDS: diazePAM 2 MG TAB PO PRN (23:24)
[2020-05-09] MEDS: IPRATROPIUM-ALBUTEROL 3 ML NEB INHALATION PRN ×4 (02:04→16:31)
[2020-05-09] MEDS: HYDROcodone/APAP 10-325MG 1 EACH TAB PO PRN ×4 (03:29→23:16)
[2020-05-09 06:01] LABS: Glucose,Whole Blood 182 mg/dL (75-99)
[2020-05-09] MEDS: metFORMIN 500 MG TAB PO SCH ×2 (06:42→17:06)
[2020-05-09] MEDS: PANTOPRAZOLE 40 MG TABLET PO SCH (06:42)
[2020-05-09] MEDS: INSULIN ASPART (NovoLOG) 100 UNIT/ML VIAL SQ SCH ×4 (06:42→20:27)
[2020-05-09 07:16] LABS: Basophils % (A) 0 %; Eosinophils % (A) 0 %; HCT 42.8 % (39.0-53.0); HGB 14.4 gm/dL (13.0-17.5); Lymphocytes # (A) 0.8 k/uL (1.0-4.8); Lymphocytes % (A) 6 %; MCH 29.4 pg (25.0-35.0); MCHC 33.7 g/dL (31.0-37.0); MCV 87.2 fL (80.0-100.0); Mean Platelet Volume 7.4; Monocytes # (A) 0.8 k/uL (0-1.0); Monocytes % (A) 6 %; Neutrophils # (A) 11.7 k/uL (1.3-7.7); Neutrophils % (A) 87 %; Platelet Count 358 k/uL (150-450); RDW 12.9 % (11.5-15.5); WBC 13.5 k/uL (3.8-10.6)
[2020-05-09] MEDS: BUDESONIDE 0.5 MG/2 ML NEBU INHALATION SCH ×2 (07:22→20:14)
[2020-05-09] MEDS: FORMOTEROL FUMARATE 20 MCG/2 ML NEBU INHALATION SCH ×2 (07:22→20:14)
[2020-05-09 07:37] LABS: African American GFR (CKD) >90 (>60 ml/min/1.73 sqM); Anion Gap 12 mmol/L; Blood Urea Nitrogen 13 mg/dL (9-20); Calcium 8.4 mg/dL (8.4-10.2); Carbon Dioxide 30 mmol/L (22-30); Chloride 78 mmol/L (98-107); Glucose 149 mg/dL (74-99); Magnesium 1.7 mg/dL (1.6-2.3); Non-African American GFR(CKD) >90 (>60 ml/min/1.73 sqM); Potassium 3.9 mmol/L (3.5-5.1); Sodium 120 mmol/L (137-145)
[2020-05-09] MEDS: methylPREDNISolone SOD SUCCI 40 MG/ML 1 ML VIAL IV SCH (07:54)
[2020-05-09] MEDS: HEPARIN SODIUM,PORCINE 5,000 UNIT/ML 1 ML VIAL SQ SCH ×3 (07:54→23:16)
[2020-05-09] MEDS: NICOTINE 21MG/24HR PATCH TRANSDERM SCH (07:54)
[2020-05-09] MEDS: DULoxetine HCL 30 MG CAPSULE.DR PO SCH (07:56)
[2020-05-09] MEDS: amLODIPine 10 MG TAB PO SCH (07:56)
[2020-05-09] MEDS: METOPROLOL TARTRATE 50 MG TAB PO SCH ×2 (07:56→20:28)
[2020-05-09 08:55] LABS: T4, Free (Free Thyroxine) 1.38 ng/dL (0.78-2.19)
--- NOTE | 2020-05-09 10:30 | P.PN ---
Subjective 69-year-old male with known history of COPD came in with complaints of a shortness of breath found to be in COPD exacerbation does have wheezing on exam was started on steroids steroids and patient was started on oxygen was subsequently admitted.patient is also found to have severe hyponatremia with sodium of 140 and patient is on chlorthalidone at home. Patient also has low magnesium of 1.3 , patient the has not been taking his amlodipine as well which she was started on right now. Patient out of his inhalers as well. She denied any fever chills. Chest x-ray did not show pneumonia it shows some chronic interstitial infiltrate. 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 05/09/2020 Patient still wheezing serum sodium did improve to 120 patient remains on the IV fluids normal saline at 100 mL/h. Psychiatric eval and the patient they do not believe patient will need inpatient psychiatric admission. Constitutional: Denied any fatigue denied any fever. Cardio vascular: denied any chest pain, palpitations Gastrointestinal denied any nausea vomiting Pulmonary:still has significant shortness of breath Neurologic denied any new focal deficits All inpatient medications were reviewed and appropriate changes in these medications as dictated in the interval history and assessment and plan. Objective - Vital Signs Vital signs: Vital Signs Temp 97.7 F 05/09/20 07:41 Pulse 78 05/09/20 07:45 Resp 20 05/09/20 07:41 BP 146/75 05/09/20 07:41 Pulse Ox 95 05/09/20 07:41 Intake & Output 05/08/20 05/09/20 05/09/20 18:59 06:59 18:59 Intake Total 730 780 Output Total 3400 800 Balance -2669 Weight 124.738 kg 121.6 kg Intake: Intake, IV Titration 100 Amount Magnesium Sulfate-D5w Pmx 100 1 gm In Dextrose/Water 1 100ml.bag @ 100 mls/hr IVPB ONCE ONE Rx#: [id number] Oral 630 780 Output: Urine 3400 800 Other: # Voids 1 1 0 # Bowel Movements 0 - Exam PHYSICAL EXAMINATION: GENERAL: The patient is alert and oriented x3, not in any acute distress. Well d eveloped, well nourished. HEENT: Pupils are round and equally reacting to light. EOMI. No scleral icterus. No conjunctival pallor. Normocephalic, atraumatic. No pharyngeal erythema. No thyromegaly. CARDIOVASCULAR: S1 and S2 present. No murmurs, rubs, or gallops. PULMONARY:significantly extremity wheezing and decreased air entry into bilateral lung mclaughlin ABDOMEN: Soft, nontender, nondistended, normoactive bowel sounds. No palpable organomegaly. MUSCULOSKELETAL: No joint swelling or deformity. EXTREMITIES: No cyanosis, clubbing, or pedal edema. NEUROLOGICAL: Gross neurological examination did not reveal any focal deficits. SKIN: No rashes. - Labs CBC & Chem 7: 05/09/20 05:34 05/09/20 05:34 Labs: Abnormal Lab Results - Last 24 Hours (Table) 05/08/20 05/08/20 05/08/20 Range/Units 10:30 14:14 16:49 WBC (3.8-10.6) k/uL Neutrophils # (1.3-7.7) k/uL Lymphocytes # (1.0-4.8) k/uL Sodium 116 L* (137-145) mmol/L Chloride (98-107) mmol/L Creatinine (0.66-1.25) mg/dL Glucose (74-99) mg/dL POC Glucose (mg/dL) 204 H (75-99) mg/dL TSH (0.465-4.680) mIU/L Urine Protein Trace H (Negative) Urine Blood Trace H (Negative) Urine Mucus Rare H (None) /hpf 05/08/20 05/08/20 05/09/20 Range/Units 20:12 20:40 05:34 WBC 13.5 H (3.8-10.6) k/uL Neutrophils # 11.7 H (1.3-7.7) k/uL Lymphocytes # 0.8 L (1.0-4.8) k/uL Sodium 118 L* (137-145) mmol/L Chloride (98-107) mmol/L Creatinine (0.66-1.25) mg/dL Glucose (74-99) mg/dL POC Glucose (mg/dL) 208 H (75-99) mg/dL TSH (0.465-4.680) mIU/L Urine Protein (Negative) Urine Blood (Negative) Urine Mucus (None) /hpf 05/09/20 05/09/20 Range/Units 05:34 05:49 WBC (3.8-10.6) k/uL Neutrophils # (1.3-7.7) k/uL Lymphocytes # (1.0-4.8) k/uL Sodium 120 L (137-145) mmol/L Chloride 78 L (98-107) mmol/L Creatinine 0.48 L (0.66-1.25) mg/dL Glucose 149 H (74-99) mg/dL POC Glucose (mg/dL) 182 H (75-99) mg/dL TSH 0.235 L (0.465-4.680) mIU/L Urine Protein (Negative) Urine Blood (Negative) Urine Mucus (None) /hpf Microbiology - Last 24 Hours (Table) 05/08/20 06:45 Blood Culture - Preliminary Blood No Growth after 24 hours Assessment and Plan Plan: -acute hypercapnic respiratory failure: Secondary to COPD exacerbation patient will continue systemic steroids. Patient doesn't have any evidence of pneumonia patient will be continued on azithromycin -Severe hyponatremia: Secondary to chlorthalidone which was discontinued and patient is on IV fluids at this time. -Suicidal ideation: ordered sitter and second was consulted patient was having these ideations for about a week -gastroesophageal reflux disease -Type 2 diabetes mellitus patient will be continued on home regimen along with sliding scale for steroids -Hyperlipidemia Hypertension -depression -continued nicotine abuse: Counseling was provided
[2020-05-09] MEDS ORDERED: FUROSEMIDE 10 MG/ML 2 ML VIAL IV STA (11:08)
--- NOTE | 2020-05-09 11:09 | P.PN ---
Subjective Patient is seen in follow-up for hyponatremia. Currently maintained on fluid restriction. He is off all IV fluids. Sodium level 120 this morning. Complains of dyspnea and wheezing. No chest pain. Good urine output. Vital signs are stable. General: The patient appeared well nourished and normally developed. HEENT: Head exam is unremarkable. Neck is without jugular venous distension. LUNGS: Breath sounds decreased. Scattered wheezing. HEART: Rate and Rhythm are regular. First and second heart sounds normal. No murmurs, rubs or gallops. ABDOMEN: Soft, nontender. Obese. EXTREMITITES: Trace edema. Objective - Vital Signs Vital signs: Vital Signs Temp 97.7 F 05/09/20 07:41 Pulse 78 05/09/20 07:45 Resp 20 05/09/20 07:41 BP 146/75 05/09/20 07:41 Pulse Ox 95 05/09/20 07:41 Intake & Output 05/08/20 05/09/20 05/09/20 18:59 06:59 18:59 Intake Total 730 780 Output Total 3400 800 Balance -2669 Weight 124.738 kg 121.6 kg Intake: Intake, IV Titration 100 Amount Magnesium Sulfate-D5w Pmx 100 1 gm In Dextrose/Water 1 100ml.bag @ 100 mls/hr IVPB ONCE ONE Rx#: [id number] Oral 630 780 Output: Urine 3400 800 Other: # Voids 1 1 0 # Bowel Movements 0 - Labs CBC & Chem 7: 05/09/20 05:34 05/09/20 05:34 Labs: Abnormal Lab Results - Last 24 Hours (Table) 05/08/20 05/08/20 05/08/20 Range/Units 14:14 16:49 20:12 WBC (3.8-10.6) k/uL Neutrophils # (1.3-7.7) k/uL Lymphocytes # (1.0-4.8) k/uL Sodium 116 L* (137-145) mmol/L Chloride (98-107) mmol/L Creatinine (0.66-1.25) mg/dL Glucose (74-99) mg/dL POC Glucose (mg/dL) 204 H 208 H (75-99) mg/dL TSH (0.465-4.680) mIU/L 05/08/20 05/09/20 05/09/20 Range/Units 20:40 05:34 05:34 WBC 13.5 H (3.8-10.6) k/uL Neutrophils # 11.7 H (1.3-7.7) k/uL Lymphocytes # 0.8 L (1.0-4.8) k/uL Sodium 118 L* 120 L (137-145) mmol/L Chloride 78 L (98-107) mmol/L Creatinine 0.48 L (0.66-1.25) mg/dL Glucose 149 H (74-99) mg/dL POC Glucose (mg/dL) (75-99) mg/dL TSH 0.235 L (0.465-4.680) mIU/L 05/09/20 Range/Units 05:49 WBC (3.8-10.6) k/uL Neutrophils # (1.3-7.7) k/uL Lymphocytes # (1.0-4.8) k/uL Sodium (137-145) mmol/L Chloride (98-107) mmol/L Creatinine (0.66-1.25) mg/dL Glucose (74-99) mg/dL POC Glucose (mg/dL) 182 H (75-99) mg/dL TSH (0.465-4.680) mIU/L Microbiology - Last 24 Hours (Table) 05/08/20 06:45 Blood Culture - Preliminary Blood No Growth after 24 hours Assessment and Plan Plan: Assessment: 1. Hypotonic hyponatremia. Patient appears euvolemic. Etiology is poor solute intake as well as excessive fluid intake. Also component of thiazide diuretic. Sodium level 120 this morning. Urine osmolality 480. Uric acid noted to be low which is seen in SIADH. No evidence of urinary retention. 2. Hypomagnesemia secondary to poor intake and diuretics. Status post placement. Better. 3. Diabetes mellitus. 4. COPD exacerbation. 5. Benign hypertension. Stable. Plan: 1200 mL fluid restriction. Discontinued nonsteroidals. Lasix 20 mg IV once today. Repeat sodium level this evening.
[2020-05-09] MEDS: IPRATROPIUM 0.5 MG/2.5 ML NEBU INHALATION SCH ×4 (11:19→20:14)
--- NOTE | 2020-05-09 11:42 | P.PN ---
Subjective Progress Note Date: 05/09/20 Principal diagnosis: Acute exacerbation of chronic obstructive pulmonary disease 69-year-old morbidly obese male patient, a chronic smoker with known history of COPD, came into the hospital because of worsening shortness of breath, chest tightness and wheezing.. During this current admission the patient was also found to be hyponatremic. His sodium level was 113 and the patient was taking chlorthalidone on outpatient basis. Note that this patient has been followed up by Dr. Santiago his primary care physician. He has chronic arthritic pain for which she was being given hydrocodone outpatient basis at a dose of 10 mg 4 times a day. He was recently taken off the painkillers and he was asked to follow-up with pain management or pain. The patient has been able to establish himself with the pain service and is currently off treatment. He has been having arthritic pain in his hip ankle and knees bilaterally. No history of any spine injury or any other traumatic skeletal injuries. The patient's main concern during my interview was his pain control. He did not seem to be confused despite his lower sodium level. He seems to be appropriate. No agitation. He is currently on a normal saline which is running at 100 mL an hour. Follow-up sodium level is pending for now. The patient was taken off the chlorthalidone. In terms of his COPD exacerbation, the patient remains on DuoNeb nebulized treatments around the clock and IV Solu Medrol 4 mg every 12 hours. Shows mild interstitial changes bilaterally. The cardiac structures were essentially within normal limits. There is mild interstitial prominence as there is no other consolidation or airspace disease. The patient has a large body habitus. Denies having any cardiac disease. Denies having any congestion heart failure. Most of the medial pulmonary embolism. The patient is obese with a BMI of 37.3. No history of alcohol drinking. He smokes cigarettes almost 1.5 pack of cigarettes on a daily basis. He is EKG is consistent with a normal sinus rhythm with premature atrial complexes. The patient is seen today 05/09/2020 in follow-up on the selective care unit. He is currently awake and alert in no acute distress. Resting comfortably in bed. Still dyspneic with minimal exertion. Still bronchospastic and wheezy. He is currently maintaining O2 saturation in the mid 90s on 1 L/m per nasal cannula. He is afebrile. Hemodynamically stable. Blood culture reveals no growth to date. White count 13.5. Hemoglobin 14.4. Sodium 120. Creatinine 0.48. Potassium 3.9. TSH 0.235. T4 1.38. He remains on DuoNeb inhalations, Pulmicort and Perforomist inhalations, IV Solu-Medrol. NicoDerm patch is in place. Objective - Vital Signs Vital signs: Vital Signs Temp 97.7 F 05/09/20 07:41 Pulse 72 05/09/20 11:29 Resp 20 05/09/20 07:41 BP 146/75 05/09/20 07:41 Pulse Ox 95 05/09/20 07:41 Intake & Output 05/08/20 05/09/20 05/09/20 18:59 06:59 18:59 Intake Total 730 780 Output Total 3400 800 Balance -0 -20 Weight 124.738 kg 121.6 kg Intake: Intake, IV Titration 100 Amount Magnesium Sulfate-D5w Pmx 100 1 gm In Dextrose/Water 1 100ml.bag @ 100 mls/hr IVPB ONCE ONE Rx#: [id number] Oral 630 780 Output: Urine 3400 800 Other: # Voids 1 1 0 # Bowel Movements 0 - Exam Gen. appearance pleasant 69-year-old gentleman, morbidly obese, comfortable likely distress Head exam was generally normal. There was no scleral icterus or corneal arcus. Mucous membranes were moist. Neck was supple and without jugular venous distension, thyromegaly, or carotid bruits. Carotids were easily palpable bilaterally. There was no adenopathy. The patient is a metabolic S4 that is no goiter or neck masses Lung sounds are diminished and the patient scattered expiratory wheezes throughout the lung his bilaterally Cardiac exam revealed the PMI to be normally situated and sized. The rhythm was regular and no extrasystoles were noted during several minutes of auscultation. The first and second heart sounds were normal and physiologic splitting of the second heart sound was noted. There were no murmurs, rubs, clicks, or gallops. Abdominal exam revealed normal bowel sounds. The abdomen was soft, non-tender, and without masses, organomegaly, or appreciable enlargement of the abdominal aorta. Patient is overall obese and the patient's organs cannot be accurately palpated. Examination of the skin revealed no evidence of significant rashes, suspicious appearing nevi or other concerning lesions. Neurologically the patient is awake and alert and is no focal neurological deficits. Psychiatric examination the patient may have an underlying depression. - Labs CBC & Chem 7: 05/09/20 05:34 05/09/20 05:34 Labs: Abnormal Lab Results - Last 24 Hours (Table) 05/08/20 05/08/20 05/08/20 Range/Units 14:14 16:49 20:12 WBC (3.8-10.6) k/uL Neutrophils # (1.3-7.7) k/uL Lymphocytes # (1.0-4.8) k/uL Sodium 116 L* (137-145) mmol/L Chloride (98-107) mmol/L Creatinine (0.66-1.25) mg/dL Glucose (74-99) mg/dL POC Glucose (mg/dL) 204 H 208 H (75-99) mg/dL TSH (0.465-4.680) mIU/L 05/08/20 05/09/20 05/09/20 Range/Units 20:40 05:34 05:34 WBC 13.5 H (3.8-10.6) k/uL Neutrophils # 11.7 H (1.3-7.7) k/uL Lymphocytes # 0.8 L (1.0-4.8) k/uL Sodium 118 L* 120 L (137-145) mmol/L Chloride 78 L (98-107) mmol/L Creatinine 0.48 L (0.66-1.25) mg/dL Glucose 149 H (74-99) mg/dL POC Glucose (mg/dL) (75-99) mg/dL TSH 0.235 L (0.465-4.680) mIU/L 05/09/20 Range/Units 05:49 WBC (3.8-10.6) k/uL Neutrophils # (1.3-7.7) k/uL Lymphocytes # (1.0-4.8) k/uL Sodium (137-145) mmol/L Chloride (98-107) mmol/L Creatinine (0.66-1.25) mg/dL Glucose (74-99) mg/dL POC Glucose (mg/dL) 182 H (75-99) mg/dL TSH (0.465-4.680) mIU/L Microbiology - Last 24 Hours (Table) 05/08/20 06:45 Blood Culture - Preliminary Blood No Growth after 24 hours Assessment and Plan Assessment: 1 acute COPD exacerbation with secondary shortness of breath 2 hyponatremia, chronicity is not known, probably chronic and the patient has been taken chlorthalidone outpatient basis. This was discontinued and the patient is currently on normal saline infusion. No altered mentation. No seizure activity. No confusion. Improved and currently sodium level CXX 3 diabetes mellitus type 2 4 hypertension 5 hyperlipidemia 6 history of depression with questionable suicidal ideation the patient will be seen by psychiatry, and addition to history of anxiety. 7 obesity 8 chronic pain maintained on narcotic medication on outpatient basis in the form of hydrocodone. The pain medication was discontinued by his primary care physician and the patient is looking to get involved in a pain clinic regarding his chronic pain medication need. Plan The patient was seen and evaluated by Dr. Jones Increased IV Solu-Medrol 60 every 6 hours Continue bronchodilators Sodium gradually improving We will continue to follow I, the cosigning physician, performed a history & physical examination of the patient. Lungs sounds with bilateral end expiratory wheeze, diminished. Maintaining good O2 saturations in the 90s on 1 L/m per nasal cannula. I discussed the assessment and plan of care with my nurse practitioner, Kelley Haq. I attest to the above note as dictated by her.
[2020-05-09 12:20] LABS: Glucose,Whole Blood 157 mg/dL (75-99)
[2020-05-09] MEDS: methylPREDNISolone SOD SUCCI 125 MG/2 ML VIAL IV SCH ×3 (13:17→23:17)
[2020-05-09] MEDS: diazePAM 2 MG TAB PO PRN (13:20)
--- NOTE | 2020-05-09 14:04 | P.PN ---
Progress Note - Text Progress Note Date: 05/09/20 Interval History: Patient was seen today for psychiatric follow-up regarding patient's depression and suicidal statements upon admission. Patient was started on melatonin and Cymbalta yesterday and patient's Valium has been decreased. Patient's nurse states that patient continues to have difficulties with breathing however has not had any behavioral issue however continues to endorse some depression. Patient was seen at the bedside with his sitter and was agreeable to speak to documentation writer. Patient appears to be mildly improved in terms of his affect and continues to be wheezing and short of breath when he is speaking. Patient was watching the news on TV and spoke to documentation writer about the news and other global issues. Patient appeared to be more talkative today and spoke more about his medical condition and also the IV steroids that he received for his breathing. Patient spoke more about being hopeful about the future and taking care of himself at home. He states that he is continuing to feel depressed however believes that the Cymbalta has been helping so far. He was agreeable to have it increased. He states that he only slept 3 hours last night and was agreeable to have his melatonin increased. He has a fair appetite and energy level today. At this time patient denies any current suicidal or homical ideations, intent or plan. Patient denies any auditory, visual hallucinations and denies any paranoia or delusions. Patient denies any side effects from the medications and has been compliant with meds. Mental Status Exam: General Appearance: Patient appears to be overweight, stated age is alert, pleasant, and attempts to be cooperative. Patient appears to have fair hygiene and grooming wearing hospital gown with fair eye contact. Behavior: Patient is calmly lying in bed without any agitated behavior. Attempts to be cooperative. Talkative today. Speech: Patient's speech is fluent and nonpressured. Mood/Affect: Patient reports their mood is "depressed" however mildly improving, affect is congruent Suicidality/Homicidality: Patient denies having any current suicidal or homicidal ideation intent or plan. Perceptions: Patient denies any visual hallucinations and denies any auditory hallucinations Though content/process: There is no evidence of any delusional thought content and thought process is linear and tangential/circumstantial. More future oriented today. Memory and concentration: AOX3, grossly intact for the purposes of this session. Judgment and insight: Limited Assessment Depressive disorder unspecified pain disorder with related psychological factors Plan: -At this time patient DOES NOT meet criteria for inpatient psychiatric admission -Delirium precautions recommended with patient including - avoiding use of narcotics and SPA MANAGER/ESTHETICIAN sedatives, limit anticholinergic medications when possible, frequent re-orientation, minimize use of restraints, open window shades during the day and close them at night -Would recommend the following medication changes/additions: Continue with Valium 2 mg 3 times a day when necessary for anxiety with plan to slowly titrated off. Increased Cymbalta 60 mg daily for mood/anxiety/pain. Increased melatonin 10 mg nightly for insomnia. -Discontinue 1:1 sitter at this time as nurse has reported no behavioral issues and patient is denying any current suicidal thoughts or plans. -Will continue to follow along if patient is not discharged and remains in the hospital. Otherwise patient is cleared psychiatrically. -Spoke with social professionals Ryan over the phone and discussed placement options versus subacute rehab versus being discharged home and apparently patient will not qualify for placement or subacute rehab at this time according to social professionals. I addressed my concern about patient having a gun at home and social professionals will speak with patient prior to discharge about his gun and inquire if this can be removed from the house. -Please contact with any questions.
[2020-05-09 16:01] LABS: Hemoglobin A1C 6.4 % (4.0-6.0)
[2020-05-09] MEDS: guaiFENesin-DM 600/30MG 1 EACH TAB.ER.12H PO PRN (16:56)
[2020-05-09 17:13] LABS: Glucose,Whole Blood 161 mg/dL (75-99)
[2020-05-09 20:19] LABS: Glucose,Whole Blood 197 mg/dL (75-99)
[2020-05-09] MEDS: MELATONIN 5 MG TABLET PO SCH (20:28)
[2020-05-10] MEDS: HYDROcodone/APAP 10-325MG 1 EACH TAB PO PRN ×3 (05:13→20:11)
[2020-05-10] MEDS: methylPREDNISolone SOD SUCCI 125 MG/2 ML VIAL IV SCH ×4 (05:13→22:57)
[2020-05-10 07:22] LABS: Glucose,Whole Blood 173 mg/dL (75-99)
[2020-05-10] MEDS: IPRATROPIUM 0.5 MG/2.5 ML NEBU INHALATION SCH ×4 (07:38→19:31)
[2020-05-10] MEDS: BUDESONIDE 0.5 MG/2 ML NEBU INHALATION SCH ×2 (07:38→19:20)
[2020-05-10] MEDS: FORMOTEROL FUMARATE 20 MCG/2 ML NEBU INHALATION SCH ×2 (07:38→19:20)
[2020-05-10 08:09] LABS: African American GFR (CKD) >90 (>60 ml/min/1.73 sqM); Anion Gap 10 mmol/L; Blood Urea Nitrogen 17 mg/dL (9-20); Calcium 9.1 mg/dL (8.4-10.2); Carbon Dioxide 31 mmol/L (22-30); Chloride 81 mmol/L (98-107); Glucose 139 mg/dL (74-99); Magnesium 1.9 mg/dL (1.6-2.3); Non-African American GFR(CKD) >90 (>60 ml/min/1.73 sqM); Potassium 4.4 mmol/L (3.5-5.1); Sodium 122 mmol/L (137-145)
[2020-05-10] MEDS: INSULIN ASPART (NovoLOG) 100 UNIT/ML VIAL SQ SCH ×4 (09:48→21:39)
[2020-05-10] MEDS: diazePAM 2 MG TAB PO PRN (09:48)
[2020-05-10] MEDS: HEPARIN SODIUM,PORCINE 5,000 UNIT/ML 1 ML VIAL SQ SCH ×3 (09:49→22:57)
[2020-05-10] MEDS: amLODIPine 10 MG TAB PO SCH (09:49)
[2020-05-10] MEDS: NICOTINE 21MG/24HR PATCH TRANSDERM SCH (09:49)
[2020-05-10] MEDS: METOPROLOL TARTRATE 50 MG TAB PO SCH ×2 (09:49→21:38)
[2020-05-10] MEDS: DULoxetine HCL 60 MG CAPSULE.DR PO SCH (09:49)
[2020-05-10] MEDS: PANTOPRAZOLE 40 MG TABLET PO SCH (09:49)
[2020-05-10] MEDS: metFORMIN 500 MG TAB PO SCH ×2 (09:49→17:34)
[2020-05-10 11:10] LABS: Glucose,Whole Blood 182 mg/dL (75-99)
--- NOTE | 2020-05-10 11:20 | P.PN ---
Subjective Progress Note Date: 05/10/20 Principal diagnosis: Acute exacerbation of chronic obstructive pulmonary disease 69-year-old morbidly obese male patient, a chronic smoker with known history of COPD, came into the hospital because of worsening shortness of breath, chest tightness and wheezing.. During this current admission the patient was also found to be hyponatremic. His sodium level was 113 and the patient was taking chlorthalidone on outpatient basis. Note that this patient has been followed up by Dr. Santiago his primary care physician. He has chronic arthritic pain for which she was being given hydrocodone outpatient basis at a dose of 10 mg 4 times a day. He was recently taken off the painkillers and he was asked to follow-up with pain management or pain. The patient has been able to establish himself with the pain service and is currently off treatment. He has been having arthritic pain in his hip ankle and knees bilaterally. No history of any spine injury or any other traumatic skeletal injuries. The patient's main concern during my interview was his pain control. He did not seem to be confused despite his lower sodium level. He seems to be appropriate. No agitation. He is currently on a normal saline which is running at 100 mL an hour. Follow-up sodium level is pending for now. The patient was taken off the chlorthalidone. In terms of his COPD exacerbation, the patient remains on DuoNeb nebulized treatments around the clock and IV Solu Medrol 4 mg every 12 hours. Shows mild interstitial changes bilaterally. The cardiac structures were essentially within normal limits. There is mild interstitial prominence as there is no other consolidation or airspace disease. The patient has a large body habitus. Denies having any cardiac disease. Denies having any congestion heart failure. Most of the medial pulmonary embolism. The patient is obese with a BMI of 37.3. No history of alcohol drinking. He smokes cigarettes almost 1.5 pack of cigarettes on a daily basis. He is EKG is consistent with a normal sinus rhythm with premature atrial complexes. The patient is seen today 05/09/2020 in follow-up on the selective care unit. He is currently awake and alert in no acute distress. Resting comfortably in bed. Still dyspneic with minimal exertion. Still bronchospastic and wheezy. He is currently maintaining O2 saturation in the mid 90s on 1 L/m per nasal cannula. He is afebrile. Hemodynamically stable. Blood culture reveals no growth to date. White count 13.5. Hemoglobin 14.4. Sodium 120. Creatinine 0.48. Potassium 3.9. TSH 0.235. T4 1.38. He remains on DuoNeb inhalations, Pulmicort and Perforomist inhalations, IV Solu-Medrol. NicoDerm patch is in place. The patient is seen today 05/10/2020 in follow-up on the selective care unit. He is currently sitting up in a chair at the bedside. Awake and alert in no acute distress. Less bronchospastic and wheezy today. Maintaining O2 saturations in the 90s on 2 L/m per nasal cannula. He's been afebrile. Blood cultures reveal no growth. Sodium 122. Potassium 4.4. Creatinine 0.54. He remains on DuoNeb inhalations, Pulmicort and Perforomist inhalations, IV Solu- Medrol. NicoDerm patch is in place. Objective - Vital Signs Vital signs: Vital Signs Temp 98.2 F 05/10/20 07:00 Pulse 72 05/10/20 11:01 Resp 20 05/10/20 08:00 BP 173/83 05/10/20 07:00 Pulse Ox 92 L 05/10/20 07:00 Intake & Output 05/09/20 05/10/20 05/10/20 18:59 06:59 18:59 Intake Total 250 400 Output Total 1800 1035 Balance -1550 -635 Weight 119 kg Intake: Oral 250 400 Output: Urine 1800 1035 Other: # Voids 0 1 # Bowel Movements 0 - Exam Gen. appearance pleasant 69-year-old gentleman, morbidly obese, comfortable likely distress Head exam was generally normal. There was no scleral icterus or corneal arcus. Mucous membranes were moist. Neck was supple and without jugular venous distension, thyromegaly, or carotid bruits. Carotids were easily palpable bilaterally. There was no adenopathy. The patient is a metabolic S4 that is no goiter or neck masses Lung sounds are diminished and the patient scattered expiratory wheezes throughout the lung his bilaterally Cardiac exam revealed the PMI to be normally situated and sized. The rhythm was regular and no extrasystoles were noted during several minutes of auscultation. The first and second heart sounds were normal and physiologic splitting of the second heart sound was noted. There were no murmurs, rubs, clicks, or gallops. Abdominal exam revealed normal bowel sounds. The abdomen was soft, non-tender, and without masses, organomegaly, or appreciable enlargement of the abdominal aorta. Patient is overall obese and the patient's organs cannot be accurately palpated. Examination of the skin revealed no evidence of significant rashes, suspicious appearing nevi or other concerning lesions. Neurologically the patient is awake and alert and is no focal neurological deficits. Psychiatric examination the patient may have an underlying depression. - Labs CBC & Chem 7: 05/09/20 05:34 05/10/20 07:00 Labs: Abnormal Lab Results - Last 24 Hours (Table) 05/09/20 05/09/20 05/09/20 Range/Units 05:34 12:07 16:53 Sodium 120 L (137-145) mmol/L Chloride (98-107) mmol/L Carbon Dioxide (22-30) mmol/L Creatinine (0.66-1.25) mg/dL Glucose (74-99) mg/dL POC Glucose (mg/dL) 157 H (75-99) mg/dL Hemoglobin A1c 6.4 H (4.0-6.0) % 05/09/20 05/09/20 05/10/20 Range/Units 16:55 20:18 07:00 Sodium 122 L (137-145) mmol/L Chloride 81 L (98-107) mmol/L Carbon Dioxide 31 H (22-30) mmol/L Creatinine 0.54 L (0.66-1.25) mg/dL Glucose 139 H (74-99) mg/dL POC Glucose (mg/dL) 161 H 197 H (75-99) mg/dL Hemoglobin A1c (4.0-6.0) % 05/10/20 05/10/20 Range/Units 07:21 11:08 Sodium (137-145) mmol/L Chloride (98-107) mmol/L Carbon Dioxide (22-30) mmol/L Creatinine (0.66-1.25) mg/dL Glucose (74-99) mg/dL POC Glucose (mg/dL) 173 H 182 H (75-99) mg/dL Hemoglobin A1c (4.0-6.0) % Microbiology - Last 24 Hours (Table) 08/27/20 06:45 Blood Culture - Preliminary Blood No Growth after 48 hours Assessment and Plan Assessment: 1 acute COPD exacerbation with secondary shortness of breath 2 hyponatremia, chronicity is not known, probably chronic and the patient has been taken chlorthalidone outpatient basis. This was discontinued and the patient is currently on normal saline infusion. No altered mentation. No seizure activity. No confusion. Improved and currently sodium level 122 3 diabetes mellitus type 2 4 hypertension 5 hyperlipidemia 6 history of depression with questionable suicidal ideation the patient will be seen by psychiatry, and addition to history of anxiety. 7 obesity 8 chronic pain maintained on narcotic medication on outpatient basis in the form of hydrocodone. The pain medication was discontinued by his primary care physician and the patient is looking to get involved in a pain clinic regarding his chronic pain medication need. Plan The patient was seen and evaluated by Dr. Jones Improved today compared to yesterday. Less bronchospastic and wheezy Obtained the current treatment plan We will continue to follow I, the cosigning physician, performed a history & physical examination of the patient. Lungs sounds with bilateral end expiratory wheeze, diminished. Maintaining good O2 saturations in the 90s on 2 L/m per nasal cannula. I discussed the assessment and plan of care with my nurse practitioner, Kelley Haq. I attest to the above note as dictated by her.
--- NOTE | 2020-05-10 12:41 | PN ---
PROGRESS NOTE Patient is seen for followup for hyponatremia which is currently improving nicely with serum sodium up to 122 from 114 on initial admission. Overall, patient states he is feeling better. PHYSICAL EXAMINATION: On examination today, blood pressure was 173/83, heart rate of 92 per minute, patient is afebrile. Examination of the heart S1, S2. Examination of lungs, bilateral breath sounds are heard. Abdomen is soft, nontender. Examination of lower extremities shows no significant edema. DIRECTORY ASSISTANCE OPERATOR exam grossly intact. LABS: Show sodium 122, potassium 4.4, CO2 31, BUN 17, creatinine 0.54. ASSESSMENT: 1. Hyponatremia associated with decreased solute intake and a secondary to thiazide diuretics as well. Currently maintained on fluid restriction. Serum sodium continues to improve. The patient is advised to increase his oral protein intake. 2. Hypomagnesemia secondary to decreased oral intake and diuretics, status post replacement. 3. Chronic obstructive pulmonary disease exacerbation. 4. Type 2 diabetes. 5. Gastroesophageal reflux disease, maintained on proton pump inhibitors. 6. Hypertension, currently controlled. PLAN: Continue with fluid restriction. Repeat labs in a.m. Continue current antihypertensive therapy. If serum sodium does not increase further tomorrow, I will give him a dose of tolvaptan. MMODL / IJN: [id number] /
[2020-05-10 17:12] LABS: Glucose,Whole Blood 161 mg/dL (75-99)
--- NOTE | 2020-05-10 17:38 | PN ---
PROGRESS NOTE DATE OF SERVICE: 05/10/2020 DATE OF SERVICE: This 69-year-old gentleman who was admitted with COPD also had shortness of breath and significant wheezing. Also the patient is being closely monitored. The patient also had acute hypercarbic respiratory failure. The patient is on IV steroids as well. The patient also had some suicidal ideation. PAST MEDICAL HISTORY: Reviewed. REVIEW OF SYSTEMS: CARDIOVASCULAR SYSTEM: No angina. RESPIRATORY: As mentioned earlier. GI: As mentioned earlier. GI: As mentioned earlier. TAX PREPARER: No numbness or weakness. CURRENT MEDICATIONS: Reviewed and include [place] 10 mg, DuoNeb, Norvasc, Pulmicort, Valium, Cymbalta, Perforomist, NovoLog, Atrovent, melatonin, Glucophage, Solu-Medrol, Lopressor, Habitrol 21, Protonix. PHYSICAL EXAMINATION: The patient is alert and oriented x3. Pulse 85, blood pressure 143/81, respirations 16, temperature 97.4, pulse ox 92% on room air. HEENT: Conjunctivae normal. NECK: Supple. CARDIOVASCULAR: S1 and S2 muffled. RESPIRATORY: Breath sounds diminished in the bases. Bilateral scattered rhonchi and crackles. ABDOMEN: Soft, nontender. LEGS: No edema, no cyanosis. NERVOUS SYSTEM: No focal deficits. LABS: WBC 13.2, hemoglobin 14.4, sodium is 122, it was 118 on presentation. ASSESSMENT: 1. Chronic obstructive pulmonary disease exacerbation with acute hypoxic hypercarbic respiratory failure. 2. Severe hyponatremia possibly secondary to chlorthalidone. 3. Suicidal ideation. 4. Gastroesophageal reflux disease. 5. Diabetes mellitus type 2. 6. Hypertension. 7. Hyperlipidemia. 8. History of depression. 9. Continued ongoing nicotine dependence. 10.Hypochloremia. 11.Hypomagnesemia. 12.Increased WBC. 13.History of asthma, chronic obstructive pulmonary disease. 14.Hypertension. 15.History of degenerative joint disease. 16.History of anxiety, depression. RECOMMENDATIONS AND DISCUSSION: In this 69-year-old gentleman who presented with multiple complex medical issues, we will monitor the patient closely, continue the current management and continue the bronchodilators. Continue with IV steroids. Monitor blood sugars closely. Also recommend empiric antibiotics also. The chest x-ray which was reviewed done at the time of admission showed mild interstitial densities. I would also recommend Covid-19 testing also. Guarded prognosis. Further recommendations to follow. MMODL / IJN: [id number] / TRAVIS
[2020-05-10] MEDS: IPRATROPIUM-ALBUTEROL 3 ML NEB INHALATION PRN ×2 (19:20→23:57)
[2020-05-10 20:27] LABS: Glucose,Whole Blood 246 mg/dL (75-99)
[2020-05-10] MEDS: MELATONIN 5 MG TABLET PO SCH (21:38)
[2020-05-11] MEDS: HYDROcodone/APAP 10-325MG 1 EACH TAB PO PRN ×4 (02:07→21:52)
[2020-05-11] MEDS ORDERED: ACETAMINOPHEN TAB 325 MG TAB PO STA (05:06)
[2020-05-11] MEDS: methylPREDNISolone SOD SUCCI 125 MG/2 ML VIAL IV SCH ×4 (05:17→23:26)
[2020-05-11] MEDS: FORMOTEROL FUMARATE 20 MCG/2 ML NEBU INHALATION SCH ×2 (07:10→19:17)
[2020-05-11] MEDS: BUDESONIDE 0.5 MG/2 ML NEBU INHALATION SCH ×2 (07:10→19:17)
[2020-05-11] MEDS: IPRATROPIUM-ALBUTEROL 3 ML NEB INHALATION PRN ×4 (07:11→23:44)
[2020-05-11 07:22] LABS: Glucose,Whole Blood 151 mg/dL (75-99)
[2020-05-11] MEDS: HEPARIN SODIUM,PORCINE 5,000 UNIT/ML 1 ML VIAL SQ SCH ×3 (08:00→23:26)
[2020-05-11] MEDS: amLODIPine 10 MG TAB PO SCH (08:01)
[2020-05-11] MEDS: INSULIN ASPART (NovoLOG) 100 UNIT/ML VIAL SQ SCH ×4 (08:01→21:53)
[2020-05-11] MEDS: metFORMIN 500 MG TAB PO SCH ×2 (08:01→17:11)
[2020-05-11] MEDS: DULoxetine HCL 60 MG CAPSULE.DR PO SCH (08:01)
[2020-05-11] MEDS: METOPROLOL TARTRATE 50 MG TAB PO SCH ×2 (08:01→21:52)
[2020-05-11] MEDS: PANTOPRAZOLE 40 MG TABLET PO SCH (08:01)
[2020-05-11] MEDS: NICOTINE 21MG/24HR PATCH TRANSDERM SCH (08:01)
[2020-05-11 08:57] LABS: Basophils % (A) 0 %; Eosinophils # (A) 0.1 k/uL (0-0.7); Eosinophils % (A) 1 %; HCT 45.5 % (39.0-53.0); HGB 14.8 gm/dL (13.0-17.5); Lymphocytes # (A) 0.8 k/uL (1.0-4.8); Lymphocytes % (A) 6 %; MCH 29.4 pg (25.0-35.0); MCHC 32.5 g/dL (31.0-37.0); MCV 90.5 fL (80.0-100.0); Mean Platelet Volume 6.9; Monocytes # (A) 0.7 k/uL (0-1.0); Monocytes % (A) 5 %; Neutrophils # (A) 12.3 k/uL (1.3-7.7); Neutrophils % (A) 88 %; Platelet Count 400 k/uL (150-450); RBC 5.03 m/uL (4.30-5.90); RDW 12.9 % (11.5-15.5); WBC 13.9 k/uL (3.8-10.6)
[2020-05-11 09:05] LABS: African American GFR (CKD) >90 (>60 ml/min/1.73 sqM); Anion Gap 9 mmol/L; Blood Urea Nitrogen 21 mg/dL (9-20); Calcium 8.7 mg/dL (8.4-10.2); Carbon Dioxide 33 mmol/L (22-30); Chloride 83 mmol/L (98-107); Glucose 212 mg/dL (74-99); Non-African American GFR(CKD) >90 (>60 ml/min/1.73 sqM); Potassium 4.3 mmol/L (3.5-5.1); Sodium 125 mmol/L (137-145)
[2020-05-11] MEDS: IPRATROPIUM 0.5 MG/2.5 ML NEBU INHALATION SCH ×4 (09:09→19:19)
--- NOTE | 2020-05-11 10:41 | P.PN ---
Subjective Progress Note Date: 05/11/20 Principal diagnosis: Acute exacerbation of chronic obstructive pulmonary disease 69-year-old morbidly obese male patient, a chronic smoker with known history of COPD, came into the hospital because of worsening shortness of breath, chest tightness and wheezing.. During this current admission the patient was also found to be hyponatremic. His sodium level was 113 and the patient was taking chlorthalidone on outpatient basis. Note that this patient has been followed up by Dr. Santiago his primary care physician. He has chronic arthritic pain for which she was being given hydrocodone outpatient basis at a dose of 10 mg 4 times a day. He was recently taken off the painkillers and he was asked to follow-up with pain management or pain. The patient has been able to establish himself with the pain service and is currently off treatment. He has been having arthritic pain in his hip ankle and knees bilaterally. No history of any spine injury or any other traumatic skeletal injuries. The patient's main concern during my interview was his pain control. He did not seem to be confused despite his lower sodium level. He seems to be appropriate. No agitation. He is currently on a normal saline which is running at 100 mL an hour. Follow-up sodium level is pending for now. The patient was taken off the chlorthalidone. In terms of his COPD exacerbation, the patient remains on DuoNeb nebulized treatments around the clock and IV Solu Medrol 4 mg every 12 hours. Shows mild interstitial changes bilaterally. The cardiac structures were essentially within normal limits. There is mild interstitial prominence as there is no other consolidation or airspace disease. The patient has a large body habitus. Denies having any cardiac disease. Denies having any congestion heart failure. Most of the medial pulmonary embolism. The patient is obese with a BMI of 37.3. No history of alcohol drinking. He smokes cigarettes almost 1.5 pack of cigarettes on a daily basis. He is EKG is consistent with a normal sinus rhythm with premature atrial complexes. The patient is seen today 05/09/2020 in follow-up on the selective care unit. He is currently awake and alert in no acute distress. Resting comfortably in bed. Still dyspneic with minimal exertion. Still bronchospastic and wheezy. He is currently maintaining O2 saturation in the mid 90s on 1 L/m per nasal cannula. He is afebrile. Hemodynamically stable. Blood culture reveals no growth to date. White count 13.5. Hemoglobin 14.4. Sodium 120. Creatinine 0.48. Potassium 3.9. TSH 0.235. T4 1.38. He remains on DuoNeb inhalations, Pulmicort and Perforomist inhalations, IV Solu-Medrol. NicoDerm patch is in place. The patient is seen today 05/10/2020 in follow-up on the selective care unit. He is currently sitting up in a chair at the bedside. Awake and alert in no acute distress. Less bronchospastic and wheezy today. Maintaining O2 saturations in the 90s on 2 L/m per nasal cannula. He's been afebrile. Blood cultures reveal no growth. Sodium 122. Potassium 4.4. Creatinine 0.54. He remains on DuoNeb inhalations, Pulmicort and Perforomist inhalations, IV Solu- Medrol. NicoDerm patch is in place. The patient is seen today 05/11/2020 in follow-up on the selective care unit. He is currently sitting up in a chair at the bedside. Awake and alert in no acute distress. Maintaining O2 saturations in the upper 90s on 2 L/m per nasal cannula. He is afebrile. Blood culture reveals no growth. White count 13.9. Hemoglobin 14.8. Sodium 125. Potassium 4.3. Creatinine 0.65. He is still somewhat bronchospastic and wheezy. Remains on IV Solu-Medrol, bronchodilators, empiric antibiotics. NicoDerm patch is in place. Objective - Vital Signs Vital signs: Vital Signs Temp 97.4 F L 05/11/20 07:00 Pulse 76 05/11/20 09:12 Resp 20 05/11/20 07:00 BP 170/80 05/11/20 07:00 Pulse Ox 96 05/11/20 07:00 Intake & Output 05/10/20 05/11/20 05/11/20 18:59 06:59 18:59 Intake Total 250 350 250 Output Total 450 Balance 250 350 -200 Intake: Intake, IV Titration 100 Amount cefTRIAXone 1 gm In 100 Sodium Chloride 0.9% 50 ml @ 100 mls/hr IVPB Q24HR [facility] Rx#:[id number] Oral 250 250 250 Output: Urine 450 Other: Voiding Method Toilet # Voids 1 2 2 - Exam Gen. appearance: morbidly obese 69-year-old gentleman, comfortable in no acute distress Head exam was generally normal. There was no scleral icterus or corneal arcus. Mucous membranes were moist. Neck was supple and without jugular venous distension, thyromegaly, or carotid bruits. Carotids were easily palpable bilaterally. There was no adenopathy. The patient is a metabolic S4 that is no goiter or neck masses Lung sounds are diminished and the patient scattered expiratory wheezes throughout the lung his bilaterally Cardiac exam revealed the PMI to be normally situated and sized. The rhythm was regular and no extrasystoles were noted during several minutes of auscultation. The first and second heart sounds were normal and physiologic splitting of the second heart sound was noted. There were no murmurs, rubs, clicks, or gallops. Abdominal exam revealed normal bowel sounds. The abdomen was soft, non-tender, and without masses, organomegaly, or appreciable enlargement of the abdominal aorta. Patient is overall obese and the patient's organs cannot be accurately palpated. Examination of the skin revealed no evidence of significant rashes, suspicious appearing nevi or other concerning lesions. Neurologically the patient is awake and alert and is no focal neurological deficits. Psychiatric examination the patient may have an underlying depression. - Labs CBC & Chem 7: 05/11/20 08:35 05/11/20 08:35 Labs: Abnormal Lab Results - Last 24 Hours (Table) 05/10/20 05/10/20 05/10/20 Range/Units 11:08 17:10 20:26 WBC (3.8-10.6) k/uL Neutrophils # (1.3-7.7) k/uL Lymphocytes # (1.0-4.8) k/uL Sodium (137-145) mmol/L Chloride (98-107) mmol/L Carbon Dioxide (22-30) mmol/L BUN (9-20) mg/dL Creatinine (0.66-1.25) mg/dL Glucose (74-99) mg/dL POC Glucose (mg/dL) 182 H 161 H 246 H (75-99) mg/dL 05/11/20 05/11/20 05/11/20 Range/Units 07:21 08:35 08:35 WBC 13.9 H (3.8-10.6) k/uL Neutrophils # 12.3 H (1.3-7.7) k/uL Lymphocytes # 0.8 L (1.0-4.8) k/uL Sodium 125 L (137-145) mmol/L Chloride 83 L (98-107) mmol/L Carbon Dioxide 33 H (22-30) mmol/L BUN 21 H (9-20) mg/dL Creatinine 0.65 L (0.66-1.25) mg/dL Glucose 212 H (74-99) mg/dL POC Glucose (mg/dL) 151 H (75-99) mg/dL Microbiology - Last 24 Hours (Table) 05/08/20 06:45 Blood Culture - Preliminary Blood No Growth after 72 hours Assessment and Plan Assessment: 1 acute COPD exacerbation with secondary shortness of breath 2 hyponatremia, chronicity is not known, probably chronic and the patient has been taken chlorthalidone outpatient basis. This was discontinued and the patient is currently on normal saline infusion. No altered mentation. No seizure activity. No confusion. Improved and currently sodium level 125 3 diabetes mellitus type 2 4 hypertension 5 hyperlipidemia 6 history of depression with questionable suicidal ideation the patient will be seen by psychiatry, and addition to history of anxiety. 7 obesity 8 chronic pain maintained on narcotic medication on outpatient basis in the form of hydrocodone. The pain medication was discontinued by his primary care physician and the patient is looking to get involved in a pain clinic regarding his chronic pain medication need. Plan The patient was seen and evaluated by Dr. Jones Improved but not back to his baseline Continue the current treatment plan We will continue to follow I, the cosigning physician, performed a history & physical examination of the patient. Lungs sounds with bilateral end expiratory wheeze, diminished. Maintaining good O2 saturations in the 90s on 2 L/m per nasal cannula. I discussed the assessment and plan of care with my nurse practitioner, Kelley Haq. I attest to the above note as dictated by her.
[2020-05-11 12:18] LABS: Glucose,Whole Blood 168 mg/dL (75-99)
[2020-05-11] MEDS ORDERED: FUROSEMIDE 40 MG TAB PO STA (14:19)
--- NOTE | 2020-05-11 16:06 | PN ---
PROGRESS NOTE Patient is seen for followup for hyponatremia. His serum sodium continues to improve as his oral intake improves. Sodium is up to 125 today. PHYSICAL EXAMINATION: On examination today, blood pressure was 170/80, heart rate 72 per minute, patient is afebrile. Examination of the heart S1, S2. Examination of the lungs, bilateral breath sounds are heard. Decreased breath sounds at bases. Upper airway sounds are heard. Abdomen is soft, obese. Examination of lower extremities shows edema 1+ bilaterally. [employer] exam grossly intact. LABS: Show sodium of 125, potassium 4.3, BUN 21, creatinine 0.65, hemoglobin 14.8 g/dL. ASSESSMENT: 1. Hyponatremia associated with decreased solute intake and possibly also related to thiazide diuretics, currently improving. Patient is maintained on fluid restriction. I will give him a dose of p.o. Lasix as well as he appears to be mildly hypervolemic. 2. Hypomagnesemia associated with diuresis status post replacement. 3. Chronic obstructive pulmonary disease exacerbation, currently improved. 4. Type 2 diabetes. 5. Gastroesophageal reflux disease maintained on proton pump inhibitors. 6. Hypertension. Blood pressure was elevated today, however, it had been better. I will continue with the same antihypertensive medications. PLAN: Lasix p.o. 40 mg x1, continue with fluid restriction, repeat labs in a.m. MMODL / IJN: [id number] /
[2020-05-11 16:43] LABS: Glucose,Whole Blood 200 mg/dL (75-99)
[2020-05-11 20:30] LABS: Glucose,Whole Blood 189 mg/dL (75-99)
[2020-05-11] MEDS: MELATONIN 5 MG TABLET PO SCH (21:52)
--- NOTE | 2020-05-11 23:05 | PN ---
PROGRESS NOTE DATE OF SERVICE: 05/11/2020 This 69-year-old gentleman who was admitted with COPD also had acute hypoxic respiratory failure. The patient also has severe hyponatremia. The patient also is suspected to have obstructive sleep apnea. The patient was recommended BiPAP at night. Nephrology also following the patient closely. The sodium is improved to 125. PAST MEDICAL HISTORY: Reviewed. REVIEW OF SYSTEMS: CARDIOVASCULAR SYSTEM: No angina. RESPIRATORY SYSTEM: As mentioned earlier. GI: As mentioned earlier. : No dysuria. NERVOUS SYSTEM: Patient is drowsy. CURRENT MEDICATIONS: Current medications are reviewed and include Home, DuoNeb, Norvasc, Pulmicort, Rocephin, Valium, Cymbalta, Perforomist, heparin, NovoLog, Atrovent, melatonin, Glucophage, Solu-Medrol, Lopressor, Habitrol, Protonix. Doses are reviewed. PHYSICAL EXAMINATION: The patient is alert and oriented x3. Pulse 81, blood pressure 150/79, respirations 20, temperature 97.8, pulse ox 96% on 2 L. HEENT: Conjunctivae normal. NECK: No JVD. CARDIOVASCULAR: S1, S2 muffled. RESPIRATORY: Breath sounds diminished at the bases. A few scattered rhonchi and crackles. ABDOMEN: Soft, obese, nontender. No mass palpable. LEGS: No edema, no swelling. NERVOUS SYSTEM: Higher function as mentioned. Moves all 4 limbs. LYMPHATICS: No lymphadenopathy of the neck, axillae or groin. SKIN: No ulcer, rash or bleeding. JOINTS: No active deforming arthropathy. LABS: WBC 13.9, hemoglobin 14.8, sodium 125. ASSESSMENT: 1. Chronic obstructive pulmonary disease acute exacerbation acute hypoxic hypercarbic respiratory failure. 2. Rule out obstructive sleep apnea. 3. Severe hyponatremia, possibly secondary to chlorthalidone. 4. Suicidal ideation. 5. Gastroesophageal reflux disease. 6. Diabetes mellitus type 2. 7. Hypertension. 8. Hyperlipidemia. 9. History of depression. 10.Continued ongoing nicotine dependence. 11.Hypochloremia. 12.Hypomagnesemia. 13.Increased WBC. 14.History of asthma, chronic obstructive pulmonary disease. 15.History of degenerative joint disease. 16.History of anxiety, depression. RECOMMENDATIONS AND DISCUSSION: Recommend to continue current medications. Continue with monitoring and symptomatic treatment. Otherwise, at this time I would recommend continue with bronchodilators, IV steroids. I would also recommend a trial of BiPAP at night. Otherwise, guarded prognosis because of multiple complex medical issues. Further recommendations to follow. MMODL / IJN: [id number] /
[2020-05-12] MEDS: IPRATROPIUM-ALBUTEROL 3 ML NEB INHALATION PRN ×6 (03:24→23:28)
[2020-05-12] MEDS: methylPREDNISolone SOD SUCCI 125 MG/2 ML VIAL IV SCH ×4 (05:53→23:26)
[2020-05-12 07:28] LABS: Glucose,Whole Blood 172 mg/dL (75-99)
[2020-05-12] MEDS: INSULIN ASPART (NovoLOG) 100 UNIT/ML VIAL SQ SCH ×4 (08:05→20:11)
[2020-05-12] MEDS: NICOTINE 21MG/24HR PATCH TRANSDERM SCH (08:05)
[2020-05-12] MEDS: metFORMIN 500 MG TAB PO SCH ×2 (08:06→17:19)
[2020-05-12] MEDS: PANTOPRAZOLE 40 MG TABLET PO SCH (08:06)
[2020-05-12] MEDS: METOPROLOL TARTRATE 50 MG TAB PO SCH ×2 (08:06→20:11)
[2020-05-12] MEDS: amLODIPine 10 MG TAB PO SCH (08:06)
[2020-05-12] MEDS: HEPARIN SODIUM,PORCINE 5,000 UNIT/ML 1 ML VIAL SQ SCH ×3 (08:06→23:26)
[2020-05-12] MEDS: DULoxetine HCL 60 MG CAPSULE.DR PO SCH (08:06)
[2020-05-12] MEDS: HYDROcodone/APAP 10-325MG 1 EACH TAB PO PRN ×3 (08:17→23:51)
[2020-05-12] MEDS: IPRATROPIUM 0.5 MG/2.5 ML NEBU INHALATION SCH ×4 (08:20→20:21)
[2020-05-12] MEDS: BUDESONIDE 0.5 MG/2 ML NEBU INHALATION SCH (08:20)
[2020-05-12] MEDS: FORMOTEROL FUMARATE 20 MCG/2 ML NEBU INHALATION SCH ×2 (08:20→20:13)
[2020-05-12] MEDS: guaiFENesin 600 MG TABLET.ER PO SCH ×2 (10:58→20:11)
[2020-05-12 11:27] LABS: Glucose,Whole Blood 139 mg/dL (75-99)
[2020-05-12] MEDS: diazePAM 2 MG TAB PO PRN ×2 (12:02→20:11)
--- NOTE | 2020-05-12 12:02 | P.PN ---
Subjective Progress Note Date: 05/12/20 Principal diagnosis: Acute exacerbation of chronic obstructive pulmonary disease 69-year-old morbidly obese male patient, a chronic smoker with known history of COPD, came into the hospital because of worsening shortness of breath, chest tightness and wheezing.. During this current admission the patient was also found to be hyponatremic. His sodium level was 113 and the patient was taking chlorthalidone on outpatient basis. Note that this patient has been followed up by Dr. Santiago his primary care physician. He has chronic arthritic pain for which she was being given hydrocodone outpatient basis at a dose of 10 mg 4 times a day. He was recently taken off the painkillers and he was asked to follow-up with pain management or pain. The patient has been able to establish himself with the pain service and is currently off treatment. He has been having arthritic pain in his hip ankle and knees bilaterally. No history of any spine injury or any other traumatic skeletal injuries. The patient's main concern during my interview was his pain control. He did not seem to be confused despite his lower sodium level. He seems to be appropriate. No agitation. He is currently on a normal saline which is running at 100 mL an hour. Follow-up sodium level is pending for now. The patient was taken off the chlorthalidone. In terms of his COPD exacerbation, the patient remains on DuoNeb nebulized treatments around the clock and IV Solu Medrol 4 mg every 12 hours. Shows mild interstitial changes bilaterally. The cardiac structures were essentially within normal limits. There is mild interstitial prominence as there is no other consolidation or airspace disease. The patient has a large body habitus. Denies having any cardiac disease. Denies having any congestion heart failure. Most of the medial pulmonary embolism. The patient is obese with a BMI of 37.3. No history of alcohol drinking. He smokes cigarettes almost 1.5 pack of cigarettes on a daily basis. He is EKG is consistent with a normal sinus rhythm with premature atrial complexes. The patient is seen today 05/09/2020 in follow-up on the selective care unit. He is currently awake and alert in no acute distress. Resting comfortably in bed. Still dyspneic with minimal exertion. Still bronchospastic and wheezy. He is currently maintaining O2 saturation in the mid 90s on 1 L/m per nasal cannula. He is afebrile. Hemodynamically stable. Blood culture reveals no growth to date. White count 13.5. Hemoglobin 14.4. Sodium 120. Creatinine 0.48. Potassium 3.9. TSH 0.235. T4 1.38. He remains on DuoNeb inhalations, Pulmicort and Perforomist inhalations, IV Solu-Medrol. NicoDerm patch is in place. The patient is seen today 05/10/2020 in follow-up on the selective care unit. He is currently sitting up in a chair at the bedside. Awake and alert in no acute distress. Less bronchospastic and wheezy today. Maintaining O2 saturations in the 90s on 2 L/m per nasal cannula. He's been afebrile. Blood cultures reveal no growth. Sodium 122. Potassium 4.4. Creatinine 0.54. He remains on DuoNeb inhalations, Pulmicort and Perforomist inhalations, IV Solu- Medrol. NicoDerm patch is in place. The patient is seen today 05/11/2020 in follow-up on the selective care unit. He is currently sitting up in a chair at the bedside. Awake and alert in no acute distress. Maintaining O2 saturations in the upper 90s on 2 L/m per nasal cannula. He is afebrile. Blood culture reveals no growth. White count 13.9. Hemoglobin 14.8. Sodium 125. Potassium 4.3. Creatinine 0.65. He is still somewhat bronchospastic and wheezy. Remains on IV Solu-Medrol, bronchodilators, empiric antibiotics. NicoDerm patch is in place. On 05/12/2020 patient seen in follow-up on internal medical surgical floor. He is awake and alert, currently working with physical therapy, ambulating in the room, standing up with assistance, is quite bronchospastic and dyspneic with exertion. Currently on room air, earlier on 1/2 L patient sat was 94%. Afebrile. Patient is on IV Solu-Medrol 60 mg every 6 hours, he is on IV Rocephin, breathing treatments, Pulmicort and Perforomist. Today's labs are pending, yesterday's sodium was 125, and has been coming up since admission, patient remains on water restriction with a 1200 mL of water on a daily basis. Patient was in the dose of Lasix yesterday per nephrology. We'll obtain follow- up chest x-ray today. Objective - Vital Signs Vital signs: Vital Signs Temp 97.5 F L 05/12/20 07:00 Pulse 63 05/12/20 11:40 Resp 19 05/12/20 07:00 BP 164/75 05/12/20 07:00 Pulse Ox 94 L 05/12/20 08:33 Intake & Output 05/11/20 05/12/20 05/12/20 18:59 06:59 18:59 Intake Total 250 460 Output Total 450 Balance -200 460 Weight 120.5 kg Intake: Oral 250 460 Output: Urine 450 Other: Voiding Method Toilet Toilet # Voids 3 2 2 - Exam GENERAL EXAM: Alert, very pleasant, 69-year-old white male, on room air, dyspneic, and bronchospastic, working with physical therapy, ambulating in the room, improves with rest comfortable in no apparent distress. HEAD: Normocephalic/atraumatic. EYES: Normal reaction of pupils, equal size. Conjunctiva pink, sclera white. NOSE: Clear with pink turbinates. THROAT: No erythema or exudates. NECK: No masses, no JVD, no thyroid enlargement, no adenopathy. CHEST: No chest wall deformity. Symmetrical expansion. LUNGS: Equal air entry with no audible wheezes CVS: Regular rate and rhythm, normal S1 and S2, no gallops, no murmurs, no rubs ABDOMEN: Soft, nontender. No hepatosplenomegaly, normal bowel sounds, no guarding or rigidity. EXTREMITIES: No clubbing, no edema, no cyanosis, 2+ pulses and upper and lower extremities. MUSCULOSKELETAL: Muscle strength and tone normal. SPINE: No scoliosis or deformity SKIN: No rashes CENTRAL NERVOUS SYSTEM: Alert and oriented -3. No focal deficits, tone is normal in all 4 extremities. PSYCHIATRIC: Alert and oriented -3. Appropriate affect. Intact judgment and insight. - Labs CBC & Chem 7: 05/11/20 08:35 05/11/20 08:35 Labs: Abnormal Lab Results - Last 24 Hours (Table) 05/11/20 05/11/20 05/11/20 Range/Units 12:16 16:41 20:29 POC Glucose (mg/dL) 168 H 200 H 189 H (75-99) mg/dL 05/12/20 05/12/20 Range/Units 07:27 11:26 POC Glucose (mg/dL) 172 H 139 H (75-99) mg/dL Microbiology - Last 24 Hours (Table) 05/08/20 06:45 Blood Culture - Preliminary Blood No Growth after 96 hours Assessment and Plan Plan: Assessment: 1 acute COPD exacerbation with secondary shortness of breath 2 hyponatremia, chronicity is not known, probably chronic and the patient has been taken chlorthalidone outpatient basis. This was discontinued and the patient is currently on normal saline infusion. No altered mentation. No s eizure activity. No confusion. Improved and currently sodium level 125 3 diabetes mellitus type 2 4 hypertension 5 hyperlipidemia 6 history of depression with questionable suicidal ideation the patient will be seen by psychiatry, and addition to history of anxiety. 7 obesity 8 chronic pain maintained on narcotic medication on outpatient basis in the form of hydrocodone. The pain medication was discontinued by his primary care physician and the patient is looking to get involved in a pain clinic regarding his chronic pain medication need. Plan: We'll obtain follow-up chest x-ray today, will consider given a dose of IV Lasix if shows fluid overload, continue with current dose of IV steroids, we'll add Mucinex, patient is on Rocephin, nebulized bronchodilators, we'll continue to fo llow, awaiting results of the morning blood work, continue fluid restriction. Maintain safety precautions. I performed a history & physical examination of the patient and discussed their management with my nurse practitioner, Kailey Livingston. I reviewed the nurse practitioner's note and agree with the documented findings and plan of care. Lung sounds are positive for diffuse wheezes. The findings and the impression was discussed with the patient. I attest to the documentation by the nurse practitioner. Time with Patient: Less than 30
[2020-05-12 12:33] LABS: Basophils # (A) 0.1 k/uL (0-0.2); Basophils % (A) 1 %; Eosinophils % (A) 0 %; HCT 43.9 % (39.0-53.0); HGB 14.4 gm/dL (13.0-17.5); Lymphocytes # (A) 0.7 k/uL (1.0-4.8); Lymphocytes % (A) 7 %; MCH 29.8 pg (25.0-35.0); MCHC 32.9 g/dL (31.0-37.0); MCV 90.6 fL (80.0-100.0); Mean Platelet Volume 6.9; Monocytes # (A) 1.4 k/uL (0-1.0); Monocytes % (A) 13 %; Neutrophils # (A) 8.1 k/uL (1.3-7.7); Neutrophils % (A) 77 %; Platelet Count 418 k/uL (150-450); RBC 4.84 m/uL (4.30-5.90); WBC 10.5 k/uL (3.8-10.6)
--- NOTE | 2020-05-12 12:46 | XR ---
EXAMINATION TYPE: XR chest 1V portable DATE OF EXAM: 05/12/2020 CLINICAL HISTORY: CHF, shortness of breath TECHNIQUE: Portable upright view of the chest obtained COMPARISON: 05/08/2020 chest radiograph FINDINGS: The cardiomediastinal silhouette is within normal limits for size. Pulmonary vasculature i s normal. There is no focal air space opacity, pleural effusion, or pneumothorax seen. Degenerative c hanges of the bilateral shoulders. IMPRESSION: No acute cardiopulmonary process.
[2020-05-12 12:52] LABS: African American GFR (CKD) >90 (>60 ml/min/1.73 sqM); Anion Gap 9 mmol/L; Blood Urea Nitrogen 22 mg/dL (9-20); Calcium 9.1 mg/dL (8.4-10.2); Carbon Dioxide 34 mmol/L (22-30); Chloride 81 mmol/L (98-107); Glucose 131 mg/dL (74-99); Non-African American GFR(CKD) >90 (>60 ml/min/1.73 sqM); Sodium 124 mmol/L (137-145)
[2020-05-12 13:07] LABS: Potassium 4.8 mmol/L (3.5-5.1)
--- NOTE | 2020-05-12 14:46 | P.PN ---
Progress Note - Text Progress Note Date: 05/12/20 Interval History: Patient was seen today for psychiatric follow-up regarding patient's depression and suicidal statements upon admission. Patient continues to be on Cymbalta and melatonin for patient's depression and insomnia. Patient's nurse states that patient has been continuing to have respiratory issues however has been sleeping better and taking his medications. Nurse claims that patient has been denying suicidal thoughts. Patient was seen at the bedside today and he was sleeping w atching television. Patient appeared to have a brighter affect today and states that he is feeling better. He continues to have wheezing and difficulty with breathing and apparently has poor insight into his lung condition. He claims that his mood has been better on the medication and wants to continue it. Patient was talkative at times speaking about the future and good getting back home. He claims that he was able to sleep better for the past 2 nights sleeping approximately 6 hours "which is way better than what I get at home". He has a fair appetite and energy level today. At this time patient denies any current suicidal or homical ideations, intent or plan. Patient denies any auditory, visual hallucinations and denies any paranoia or delusions. Patient denies any side effects from the medications and has been compliant with meds. Mental Status Exam: General Appearance: Patient appears to be overweight, stated age is alert, pleasant, more cooperative. Patient appears to have fair hygiene and grooming wearing hospital gown with fair eye contact. Behavior: Patient is calmly lying in bed without any agitated behavior. More cooperative. Talkative today. Speech: Patient's speech is fluent and nonpressured. Mood/Affect: Patient reports their mood is "better", affect is congruent Suicidality/Homicidality: Patient denies having any current suicidal or homicidal ideation intent or plan. Perceptions: Patient denies any visual hallucinations and denies any auditory hallucinations Though content/process: There is no evidence of any delusional thought content and thought process is linear and rambles at times. More future oriented today. Memory and concentration: AOX3, grossly intact for the purposes of this session. Judgment and insight: Limited, improving mildly Assessment Depressive disorder unspecified pain disorder with related psychological factors Plan: -At this time patient DOES NOT meet criteria for inpatient psychiatric admission -Delirium precautions recommended with patient including - avoiding use of narcotics and ROUSTABOUT HEAD sedatives, limit anticholinergic medications when possible, frequent re-orientation, minimize use of restraints, open window shades during the day and close them at night -Would recommend the following medication changes/additions: Continue with Valium 2 mg 3 times a day when necessary for anxiety with plan to slowly titra arturo off. Continue with Cymbalta 60 mg daily for mood/anxiety/pain. Continue with melatonin 10 mg nightly for insomnia. -Patient did state that his neighbor went to his house and remove the guns and weapons. Will defer placement to primary team and social worker health services to decide given patient's poor health condition and inability to care for himself. -Psychiatry will sign off at this point. Please contact with any questions.
[2020-05-12] MEDS ORDERED: TOLVAPTAN 15 MG 1/2 TABLET PO ONE (15:15)
[2020-05-12 16:27] LABS: Glucose,Whole Blood 166 mg/dL (75-99)
--- NOTE | 2020-05-12 17:23 | PN ---
PROGRESS NOTE DATE OF SERVICE: 05/12/2020 This 69-year-old gentleman who was admitted with COPD and acute hypoxic respiratory failure also had possible acute purulent tracheobronchitis. The patient still has significant shortness of breath and wheezing also. Patient was started on empiric antibiotics. Patient is also on high-dose IV steroids. The most recent chest x- ray done today and reviewed personally by me showed some increased bronchovascular markings. No evidence of pneumonia is appreciated. Dr. Daniels is following the patient closely. Past medical history reviewed. REVIEW OF SYSTEMS: CARDIOVASCULAR SYSTEM: No angina, palpitations. RESPIRATORY SYSTEM: As mentioned earlier. GI: No nausea, vomiting. : No dysuria or retention. NERVOUS SYSTEM: No numbness, weakness. CURRENT MEDICATIONS: Reviewed. They include: 1. Ferriday 10 mg. 2. DuoNeb q.i.d. p.r.n. 3. Norvasc 10 mg. 4. Pulmicort 0.5 mg. 5. Rocephin 1 gram. 6. Valium 2 mg t.i.d. p.r.n. 7. Cymbalta. 8. Perforomist. 9. Mucinex. 10.Guaifenesin. 11.Heparin. 12.NovoLog. 13.Atrovent. 14.Melatonin. 15.Glucophage. 16.Solu-Medrol. 17.Lopressor. 18.Habitrol 12. 19.Protonix. PHYSICAL EXAMINATION: Alert and oriented x3. Pulse 72, blood pressure 164/75, respiration 19, temperature 97.5, pulse ox 95% on 1.5 L. HEENT: Conjunctivae normal. Oral mucosa moist. NECK: No jugular venous distention. No carotid bruit. No lymph node enlargement. CARDIOVASCULAR SYSTEM: S1, S2 muffled. RESPIRATORY SYSTEM: Breath sounds diminished at the bases. Scattered rhonchi and crackles. ABDOMEN: Soft, non-tender. LEGS: No edema. No swelling. NERVOUS SYSTEM: No focal deficit. LABS: CBC within normal limits. Sodium 125. ASSESSMENT: 1. Chronic obstructive pulmonary disease, acute exacerbation, with acute purulent tracheobronchitis, acute hypoxic hypercarbic respiratory failure. 2. Possible obstructive sleep apnea. 3. Severe hyponatremia, possibly secondary to chlorthalidone. 4. Suicidal ideations history. 5. History of gastroesophageal reflux disease. 6. Diabetes mellitus, type 2. 7. Hypertension. 8. Hyperlipidemia. 9. History of depression. 10.Continued ongoing nicotine dependence. 11.Hypochloremia. 12.Hypomagnesemia. 13.Increased white count. 14.History of asthma, chronic obstructive pulmonary disease. 15.History of degenerative joint disease. 16.History of anxiety, depression. RECOMMENDATIONS AND DISCUSSION: In this 69-year-old gentleman who presented with multiple complex medical issues, we will monitor the patient closely, continue the current medications, continue with symptomatic treatment. Continue the bronchodilators, empiric antibiotics. Continue with intensive bronchodilators. Otherwise, guarded prognosis because of multiple complex medical problems. Further recommendations to follow. We will increase Pulmicort to 1 mg b.i.d. Closely follow with Dr. Daniels. MMALANANL / FREDIN: [id number] / TRAVIS
--- NOTE | 2020-05-12 17:37 | PN ---
PROGRESS NOTE Patient is seen for followup for hyponatremia. His serum sodium had been improving. The patient was maintained on fluid restriction. However, today the serum sodium is at 124 from 125 yesterday. He is sitting up in a chair. He denies any significant complaints. I did give him a dose of p.o. Lasix yesterday. Urine osmolality was on the higher side at 480 on initial admission. PHYSICAL EXAMINATION: On examination, blood pressure today was 164/75, heart rate 72 per minute EXAMINATION OF THE HEART: S1 and S2. EXAMINATION OF LUNGS: Bilateral breath sounds are heard. ABDOMEN: Soft, non-tender, obese. Examination of lower extremities shows edema 1+ bilaterally. Chronic skin changes noted. [employer] exam is grossly intact. LAB: Labs show sodium 124, potassium 4.8, chloride 81, BUN 22, creatinine 0.57. ASSESSMENT: 1. Hyponatremia with elevated urine osmolality, currently not hypovolemic but appears to be mildly hypervolemic. Patient received a dose of p.o. Lasix yesterday. I will give him a dose of tolvaptan, as serum sodium is not further improved. 2. Chronic obstructive pulmonary disease exacerbation, currently improved. 3. Type 2 diabetes. 4. Gastroesophageal disease. 5. Hypertension. Blood pressure remains elevated. PLAN: Tolvaptan x1. Repeat sodium in a.m. Maintain fluid restriction. Increase Lopressor if blood pressure remains elevated. MMODL / IJN: [id number] /
[2020-05-12 19:59] LABS: Glucose,Whole Blood 219 mg/dL (75-99)
[2020-05-12] MEDS: MELATONIN 5 MG TABLET PO SCH (20:11)
[2020-05-12] MEDS: BUDESONIDE 1 MG/2 ML NEBU INHALATION SCH (20:13)
[2020-05-13] MEDS: IPRATROPIUM-ALBUTEROL 3 ML NEB INHALATION PRN ×4 (04:06→20:41)
[2020-05-13] MEDS: methylPREDNISolone SOD SUCCI 125 MG/2 ML VIAL IV SCH ×4 (05:24→23:15)
[2020-05-13] MEDS ORDERED: SIMETHICONE 40 MG/0.6 ML DROPS 2,000 MG/30 ML BOTTLE PO PRN (06:30)
[2020-05-13] MEDS ORDERED: SENNOSIDES 8.6 MG TAB PO PRN (06:30)
[2020-05-13 06:45] LABS: Glucose,Whole Blood 161 mg/dL (75-99)
[2020-05-13] MEDS: INSULIN ASPART (NovoLOG) 100 UNIT/ML VIAL SQ SCH ×4 (07:15→20:33)
[2020-05-13] MEDS: metFORMIN 500 MG TAB PO SCH ×2 (07:18→17:49)
[2020-05-13] MEDS: PANTOPRAZOLE 40 MG TABLET PO SCH (07:19)
[2020-05-13] MEDS: HYDROcodone/APAP 10-325MG 1 EACH TAB PO PRN ×2 (07:30→17:49)
[2020-05-13] MEDS: IPRATROPIUM 0.5 MG/2.5 ML NEBU INHALATION SCH ×5 (08:24→19:53)
[2020-05-13] MEDS: BUDESONIDE 1 MG/2 ML NEBU INHALATION SCH ×2 (08:24→20:41)
[2020-05-13] MEDS: FORMOTEROL FUMARATE 20 MCG/2 ML NEBU INHALATION SCH ×2 (08:24→20:41)
[2020-05-13 08:52] LABS: Basophils # (A) 0.1 k/uL (0-0.2); Basophils % (A) 1 %; Eosinophils % (A) 0 %; HCT 44.6 % (39.0-53.0); HGB 14.2 gm/dL (13.0-17.5); Lymphocytes # (A) 0.5 k/uL (1.0-4.8); Lymphocytes % (A) 6 %; MCHC 31.9 g/dL (31.0-37.0); Mean Platelet Volume 6.6; Monocytes # (A) 0.7 k/uL (0-1.0); Monocytes % (A) 9 %; Neutrophils % (A) 83 %; Platelet Count 412 k/uL (150-450); WBC 8.4 k/uL (3.8-10.6)
[2020-05-13 09:13] LABS: African American GFR (CKD) >90 (>60 ml/min/1.73 sqM); Anion Gap 6 mmol/L; Blood Urea Nitrogen 21 mg/dL (9-20); Calcium 8.9 mg/dL (8.4-10.2); Carbon Dioxide 38 mmol/L (22-30); Chloride 85 mmol/L (98-107); Glucose 195 mg/dL (74-99); Non-African American GFR(CKD) >90 (>60 ml/min/1.73 sqM); Potassium 4.3 mmol/L (3.5-5.1); Sodium 129 mmol/L (137-145)
[2020-05-13] MEDS: NICOTINE 21MG/24HR PATCH TRANSDERM SCH (09:23)
[2020-05-13] MEDS: HEPARIN SODIUM,PORCINE 5,000 UNIT/ML 1 ML VIAL SQ SCH ×3 (09:25→23:14)
[2020-05-13] MEDS: DULoxetine HCL 60 MG CAPSULE.DR PO SCH (09:32)
[2020-05-13] MEDS: amLODIPine 10 MG TAB PO SCH (09:32)
[2020-05-13] MEDS: guaiFENesin 600 MG TABLET.ER PO SCH ×2 (09:33→20:37)
[2020-05-13] MEDS: METOPROLOL TARTRATE 50 MG TAB PO SCH ×2 (09:33→20:37)
--- NOTE | 2020-05-13 11:23 | P.PN ---
Subjective Patient is seen in follow-up for hyponatremia. Currently maintained on fluid restriction. Also received a dose of Samsca yesterday. Sodium level 129 this morning. Good urine output. Oral intake fair. Currently on 1.5 L nasal cannula. Feels tired. Vital signs are stable. General: The patient appeared well nourished and normally developed. HEENT: Head exam is unremarkable. Neck is without jugular venous distension. LUNGS: Breath sounds decreased. HEART: Rate and Rhythm are regular. ABDOMEN: Soft, nontender. Obese. EXTREMITITES: Trace edema. Objective - Vital Signs Vital signs: Vital Signs Temp 97.3 F L 05/13/20 07:43 Pulse 83 05/13/20 09:21 Resp 16 05/13/20 09:21 BP 138/79 05/13/20 09:21 Pulse Ox 91 L 05/13/20 09:21 Intake & Output 05/12/20 05/13/20 05/13/20 18:59 06:59 18:59 Intake Total 1058 240 Balance 1058 240 Weight 120 kg Intake: Oral 1058 240 Other: Voiding Method Toilet Toilet Toilet # Voids 3 1 - Labs CBC & Chem 7: 05/13/20 08:34 05/13/20 08:34 Labs: Abnormal Lab Results - Last 24 Hours (Table) 05/12/20 05/12/20 05/12/20 Range/Units 11:26 11:56 11:56 Neutrophils # 8.1 H (1.3-7.7) k/uL Lymphocytes # 0.7 L (1.0-4.8) k/uL Monocytes # 1.4 H (0-1.0) k/uL Sodium 124 L (137-145) mmol/L Chloride 81 L (98-107) mmol/L Carbon Dioxide 34 H (22-30) mmol/L BUN 22 H (9-20) mg/dL Creatinine 0.57 L (0.66-1.25) mg/dL Glucose 131 H (74-99) mg/dL POC Glucose (mg/dL) 139 H (75-99) mg/dL 05/12/20 05/12/20 05/13/20 Range/Units 16:25 19:55 06:40 Neutrophils # (1.3-7.7) k/uL Lymphocytes # (1.0-4.8) k/uL Monocytes # (0-1.0) k/uL Sodium (137-145) mmol/L Chloride (98-107) mmol/L Carbon Dioxide (22-30) mmol/L BUN (9-20) mg/dL Creatinine (0.66-1.25) mg/dL Glucose (74-99) mg/dL POC Glucose (mg/dL) 166 H 219 H 161 H (75-99) mg/dL 05/13/20 05/13/20 Range/Units 08:34 08:34 Neutrophils # (1.3-7.7) k/uL Lymphocytes # 0.5 L (1.0-4.8) k/uL Monocytes # (0-1.0) k/uL Sodium 129 L (137-145) mmol/L Chloride 85 L (98-107) mmol/L Carbon Dioxide 38 H (22-30) mmol/L BUN 21 H (9-20) mg/dL Creatinine (0.66-1.25) mg/dL Glucose 195 H (74-99) mg/dL POC Glucose (mg/dL) (75-99) mg/dL Microbiology - Last 24 Hours (Table) 05/08/20 06:45 Blood Culture - Preliminary Blood No Growth after 120 hours Assessment and Plan Plan: Assessment: 1. Hypotonic hyponatremia. Patient appears euvolemic. Etiology is poor solute intake as well as excessive fluid intake. Also component of thiazide diuretic. Status post [facility] on May 12. Sodium level 129 this morning. Urine osmolality 480. 2. Hypomagnesemia secondary to poor intake and diuretics. Status post placement. Improved. 3. Diabetes mellitus. 4. COPD exacerbation. 5. Benign hypertension. Stable. Plan: Maintain 1200 mL fluid restriction. Encouraged oral intake, particularly protein. Repeat electrolytes in the morning.
[2020-05-13 11:32] LABS: Glucose,Whole Blood 133 mg/dL (75-99)
--- NOTE | 2020-05-13 11:44 | P.PN ---
Subjective Progress Note Date: 05/13/20 Principal diagnosis: Acute exacerbation of chronic obstructive pulmonary disease 69-year-old morbidly obese male patient, a chronic smoker with known history of COPD, came into the hospital because of worsening shortness of breath, chest tightness and wheezing.. During this current admission the patient was also found to be hyponatremic. His sodium level was 113 and the patient was taking chlorthalidone on outpatient basis. Note that this patient has been followed up by Dr. Santiago his primary care physician. He has chronic arthritic pain for which she was being given hydrocodone outpatient basis at a dose of 10 mg 4 times a day. He was recently taken off the painkillers and he was asked to follow-up with pain management or pain. The patient has been able to establish himself with the pain service and is currently off treatment. He has been having arthritic pain in his hip ankle and knees bilaterally. No history of any spine injury or any other traumatic skeletal injuries. The patient's main concern during my interview was his pain control. He did not seem to be confused despite his lower sodium level. He seems to be appropriate. No agitation. He is currently on a normal saline which is running at 100 mL an hour. Follow-up sodium level is pending for now. The patient was taken off the chlorthalidone. In terms of his COPD exacerbation, the patient remains on DuoNeb nebulized treatments around the clock and IV Solu Medrol 4 mg every 12 hours. Shows mild interstitial changes bilaterally. The cardiac structures were essentially within normal limits. There is mild interstitial prominence as there is no other consolidation or airspace disease. The patient has a large body habitus. Denies having any cardiac disease. Denies having any congestion heart failure. Most of the medial pulmonary embolism. The patient is obese with a BMI of 37.3. No history of alcohol drinking. He smokes cigarettes almost 1.5 pack of cigarettes on a daily basis. He is EKG is consistent with a normal sinus rhythm with premature atrial complexes. The patient is seen today 05/09/2020 in follow-up on the selective care unit. He is currently awake and alert in no acute distress. Resting comfortably in bed. Still dyspneic with minimal exertion. Still bronchospastic and wheezy. He is currently maintaining O2 saturation in the mid 90s on 1 L/m per nasal cannula. He is afebrile. Hemodynamically stable. Blood culture reveals no growth to date. White count 13.5. Hemoglobin 14.4. Sodium 120. Creatinine 0.48. Potassium 3.9. TSH 0.235. T4 1.38. He remains on DuoNeb inhalations, Pulmicort and Perforomist inhalations, IV Solu-Medrol. NicoDerm patch is in place. The patient is seen today 05/10/2020 in follow-up on the selective care unit. He is currently sitting up in a chair at the bedside. Awake and alert in no acute distress. Less bronchospastic and wheezy today. Maintaining O2 saturations in the 90s on 2 L/m per nasal cannula. He's been afebrile. Blood cultures reveal no growth. Sodium 122. Potassium 4.4. Creatinine 0.54. He remains on DuoNeb inhalations, Pulmicort and Perforomist inhalations, IV Solu- Medrol. NicoDerm patch is in place. The patient is seen today 05/11/2020 in follow-up on the selective care unit. He is currently sitting up in a chair at the bedside. Awake and alert in no acute distress. Maintaining O2 saturations in the upper 90s on 2 L/m per nasal cannula. He is afebrile. Blood culture reveals no growth. White count 13.9. Hemoglobin 14.8. Sodium 125. Potassium 4.3. Creatinine 0.65. He is still somewhat bronchospastic and wheezy. Remains on IV Solu-Medrol, bronchodilators, empiric antibiotics. NicoDerm patch is in place. On 05/12/2020 patient seen in follow-up on internal medical surgical floor. He is awake and alert, currently working with physical therapy, ambulating in the room, standing up with assistance, is quite bronchospastic and dyspneic with exertion. Currently on room air, earlier on 1/2 L patient sat was 94%. Afebrile. Patient is on IV Solu-Medrol 60 mg every 6 hours, he is on IV Rocephin, breathing treatments, Pulmicort and Perforomist. Today's labs are pending, yesterday's sodium was 125, and has been coming up since admission, patient remains on water restriction with a 1200 mL of water on a daily basis. Patient was in the dose of Lasix yesterday per nephrology. We'll obtain follow- up chest x-ray today. On 05/13/2020 patient seen in follow-up on general medical surgical floor. He is resting in a recliner, but sleepy today, but arouses easily to verbal stimuli, answering questions appropriately, he still feels very short of breath at rest and with any exertion, still audibly wheezing on today's exam, we increased the patient's dose of IV steroids yesterday and he remains on Solu- Medrol 60 mg every 6 hours, remains on nebulized bronchodilators, and empiric antibiotics, he has been afebrile, he is a 1-1/2 L of oxygen with a pulse ox of 91%, hemodynamically stable, no hemoptysis, no significant phlegm production, yesterday we added Mucinex. Repeat chest x-ray showed no acute cardiopulmonary process. He remains on fluid restriction at 1200 mL of oral fluids on a daily basis, his sodium is improving, and is up to 129 on today's labs, chloride is 85, CO2 is 38, BUN is 21 and creatinine 0.6. Objective - Vital Signs Vital signs: Vital Signs Temp 97.3 F L 05/13/20 07:43 Pulse 83 05/13/20 09:21 Resp 16 05/13/20 09:21 BP 138/79 05/13/20 09:21 Pulse Ox 91 L 05/13/20 09:21 Intake & Output 05/12/20 05/13/20 05/13/20 18:59 06:59 18:59 Intake Total 1058 240 Balance 1058 240 Weight 120 kg Intake: Oral 1058 240 Other: Voiding Method Toilet Toilet Toilet # Voids 3 1 - Exam GENERAL EXAM: Sleepy but arousable to verbal stimulus very pleasant, 69-year-old white male, on room air, dyspneic, and bronchospastic, on 1-1/2 L of oxygen per nasal cannula with a pulse ox of 91%, audibly wheezy, and dyspneic with any exertion HEAD: Normocephalic/atraumatic. EYES: Normal reaction of pupils, equal size. Conjunctiva pink, sclera white. NOSE: Clear with pink turbinates. THROAT: No erythema or exudates. NECK: No masses, no JVD, no thyroid enlargement, no adenopathy. CHEST: No chest wall deformity. Symmetrical expansion. LUNGS: Equal air entry with no audible wheezes CVS: Regular rate and rhythm, normal S1 and S2, no gallops, no murmurs, no rubs ABDOMEN: Soft, nontender. No hepatosplenomegaly, normal bowel sounds, no guarding or rigidity. EXTREMITIES: No clubbing, no edema, no cyanosis, 2+ pulses and upper and lower extremities. MUSCULOSKELETAL: Muscle strength and tone normal. SPINE: No scoliosis or deformity SKIN: No rashes CENTRAL NERVOUS SYSTEM: Sleepy but arousable to verbal stimuli and oriented -3. No focal deficits, tone is normal in all 4 extremities. - Labs CBC & Chem 7: 05/13/20 08:34 05/13/20 08:34 Labs: Abnormal Lab Results - Last 24 Hours (Table) 05/12/20 05/12/20 05/12/20 Range/Units 11:56 11:56 16:25 Neutrophils # 8.1 H (1.3-7.7) k/uL Lymphocytes # 0.7 L (1.0-4.8) k/uL Monocytes # 1.4 H (0-1.0) k/uL Sodium 124 L (137-145) mmol/L Chloride 81 L (98-107) mmol/L Carbon Dioxide 34 H (22-30) mmol/L BUN 22 H (9-20) mg/dL Creatinine 0.57 L (0.66-1.25) mg/dL Glucose 131 H (74-99) mg/dL POC Glucose (mg/dL) 166 H (75-99) mg/dL 05/12/20 05/13/20 05/13/20 Range/Units 19:55 06:40 08:34 Neutrophils # (1.3-7.7) k/uL Lymphocytes # 0.5 L (1.0-4.8) k/uL Monocytes # (0-1.0) k/uL Sodium (137-145) mmol/L Chloride (98-107) mmol/L Carbon Dioxide (22-30) mmol/L BUN (9-20) mg/dL Creatinine (0.66-1.25) mg/dL Glucose (74-99) mg/dL POC Glucose (mg/dL) 219 H 161 H (75-99) mg/dL 05/13/20 05/13/20 Range/Units 08:34 11:30 Neutrophils # (1.3-7.7) k/uL Lymphocytes # (1.0-4.8) k/uL Monocytes # (0-1.0) k/uL Sodium 129 L (137-145) mmol/L Chloride 85 L (98-107) mmol/L Carbon Dioxide 38 H (22-30) mmol/L BUN 21 H (9-20) mg/dL Creatinine (0.66-1.25) mg/dL Glucose 195 H (74-99) mg/dL POC Glucose (mg/dL) 133 H (75-99) mg/dL Microbiology - Last 24 Hours (Table) 05/08/20 06:45 Blood Culture - Preliminary Blood No Growth after 120 hours Assessment and Plan Plan: Assessment: 1 acute COPD exacerbation with secondary shortness of breath 2 hyponatremia, chronicity is not known, probably chronic and the patient has been taken chlorthalidone outpatient basis. This was discontinued and the patient is currently on normal saline infusion. No altered mentation. No seizure activity. No confusion. Improved and currently sodium level 129, patient remains on fluid restriction at 1200 mL of fluids in the 24-hour period 3 diabetes mellitus type 2 4 hypertension 5 hyperlipidemia 6 history of depression with questionable suicidal ideation the patient will be seen by psychiatry, and addition to history of anxiety. 7 obesity 8 chronic pain maintained on narcotic medication on outpatient basis in the form of hydrocodone. The pain medication was discontinued by his primary care physician and the patient is looking to get involved in a pain clinic regarding his chronic pain medication need. Plan: Chest x-ray has been reviewed, showing no acute pulmonary process, will continue same dose of IV steroids, patient is ready on antibiotics, will continue dose, neurologic bronchodilators, Mucinex, today's labs have been noted, no fever or chills, patient needs to wear his CPAP at night, apparently he is having trouble with the hospital CPAP and could not wear it for very long last night, he was advised to have the family bring his CPAP unit from home. I performed a history & physical examination of the patient and discussed their management with my nurse practitioner, Kailey Livingston. I reviewed the nurse practitioner's note and agree with the documented findings and plan of care. Lung sounds are positive for diffuse wheezes. The findings and the impression was discussed with the patient. I attest to the documentation by the nurse practitioner. Time with Patient: Less than 30
--- NOTE | 2020-05-13 15:44 | PN ---
PROGRESS NOTE DATE OF SERVICE: 05/13/2020 This is a 69-year-old gentleman who was admitted with COPD exacerbation, acute ventricular bronchitis, acute hypoxic respiratory failure, is being closely monitored at this time. Patient has significant shortness of breath. No chest pain. No palpitations. Dr. Daniels is following the patient closely. PHYSICAL EXAMINATION: Alert and oriented x3. Pulse is 83. Blood pressure 130/72, respirations 16, temperature normal, pulse ox 91% on 1.5 L. HEENT: Conjunctivae normal. NECK: No jugular venous distension. CARDIOVASCULAR SYSTEM: S1, S2, muffled. RESPIRATORY: Breath sounds diminished at the bases, a few scattered rhonchi. Expiratory wheezing extensive present. ABDOMEN: Soft, obese, nontender. LEGS: No edema, no swelling. NERVOUS SYSTEM: Diffusely weak. LABS: CBC within normal, sodium 129. ASSESSMENT: 1. Chronic obstructive pulmonary disease acute exacerbation with acute purulent tracheobronchitis with acute hypoxic hypercarbic respiratory failure. 2. Possible sleep apnea. 3. Severe hyponatremia possibly secondary to chlorthalidone. 4. Suicidal ideation history. 5. History of gastroesophageal reflux disease. 6. Diabetes mellitus type 2. 7. Hypertension. 8. Hyperlipidemia. 9. History of depression. 10.Continued ongoing nicotine dependence. 11.Hypochloremia. 12.Hypomagnesemia. 13.Increased WBC. 14.History of asthma, COPD. 15.History of DJD. 16.History of anxiety, depression. RECOMMENDATION: Recommend to continue current management and symptomatic treatment. Otherwise, at this time I would also recommend psychiatric evaluation for depression also. Otherwise, continue with the current medications. Further recommendations to follow. MMODL / IJN: [id number] /
[2020-05-13 16:41] LABS: Glucose,Whole Blood 180 mg/dL (75-99)
[2020-05-13 20:25] LABS: Glucose,Whole Blood 127 mg/dL (75-99)
[2020-05-13] MEDS: MELATONIN 5 MG TABLET PO SCH (20:37)
[2020-05-14] MEDS: guaiFENesin-DM 600/30MG 1 EACH TAB.ER.12H PO PRN (01:53)
[2020-05-14] MEDS: methylPREDNISolone SOD SUCCI 125 MG/2 ML VIAL IV SCH ×3 (05:16→17:45)
[2020-05-14 06:53] LABS: Glucose,Whole Blood 158 mg/dL (75-99)
[2020-05-14] MEDS: BUDESONIDE 1 MG/2 ML NEBU INHALATION SCH ×2 (07:51→19:44)
[2020-05-14] MEDS: IPRATROPIUM 0.5 MG/2.5 ML NEBU INHALATION SCH ×4 (07:51→19:45)
[2020-05-14] MEDS ORDERED: FUROSEMIDE 10 MG/ML 4 ML VIAL IV STA (08:34)
[2020-05-14] MEDS: INSULIN ASPART (NovoLOG) 100 UNIT/ML VIAL SQ SCH ×4 (08:37→21:29)
[2020-05-14] MEDS: amLODIPine 10 MG TAB PO SCH (08:38)
[2020-05-14] MEDS: HEPARIN SODIUM,PORCINE 5,000 UNIT/ML 1 ML VIAL SQ SCH ×2 (08:38→17:43)
[2020-05-14] MEDS: DULoxetine HCL 60 MG CAPSULE.DR PO SCH (08:38)
[2020-05-14] MEDS: NICOTINE 21MG/24HR PATCH TRANSDERM SCH (08:38)
[2020-05-14] MEDS: METOPROLOL TARTRATE 50 MG TAB PO SCH ×2 (08:38→19:32)
[2020-05-14] MEDS: HYDROcodone/APAP 10-325MG 1 EACH TAB PO PRN ×2 (08:38→19:31)
[2020-05-14] MEDS: metFORMIN 500 MG TAB PO SCH ×2 (08:38→17:43)
[2020-05-14] MEDS: PANTOPRAZOLE 40 MG TABLET PO SCH (08:39)
[2020-05-14] MEDS: guaiFENesin 600 MG TABLET.ER PO SCH ×2 (08:39→19:33)
--- NOTE | 2020-05-14 09:09 | XR ---
EXAMINATION TYPE: XR chest 1V portable DATE OF EXAM: 05/14/2020 COMPARISON: Prior chest x-ray 05/12/2020 HISTORY: Wheezing TECHNIQUE: Single frontal view of the chest is obtained. FINDINGS: There is no focal air space opacity, pleural effusion, or pneumothorax seen. The cardiac silhouette size is within normal limits. The osseous structures are intact. Prominent lung volume m ay be indicative of underlying COPD. Costophrenic angles are not included on exam. There is overlying artifact. Patient is rotated. Arthropathy present in the left shoulder. Suspect some mild prominence of interstitium as on prior exam. IMPRESSION: No acute process.
[2020-05-14] MEDS: FORMOTEROL FUMARATE 20 MCG/2 ML NEBU INHALATION SCH ×2 (09:10→19:44)
[2020-05-14 11:16] LABS: African American GFR (CKD) >90 (>60 ml/min/1.73 sqM); Anion Gap 10 mmol/L; Blood Urea Nitrogen 28 mg/dL (9-20); Calcium 9.1 mg/dL (8.4-10.2); Carbon Dioxide 34 mmol/L (22-30); Chloride 88 mmol/L (98-107); Glucose 199 mg/dL (74-99); Magnesium 1.8 mg/dL (1.6-2.3); Non-African American GFR(CKD) >90 (>60 ml/min/1.73 sqM); Potassium 3.9 mmol/L (3.5-5.1); Sodium 132 mmol/L (137-145)
[2020-05-14 11:41] LABS: Glucose,Whole Blood 150 mg/dL (75-99)
--- NOTE | 2020-05-14 12:55 | P.PN ---
Subjective Progress Note Date: 05/14/20 Principal diagnosis: Acute exacerbation of chronic obstructive pulmonary disease 69-year-old morbidly obese male patient, a chronic smoker with known history of COPD, came into the hospital because of worsening shortness of breath, chest tightness and wheezing.. During this current admission the patient was also found to be hyponatremic. His sodium level was 113 and the patient was taking chlorthalidone on outpatient basis. Note that this patient has been followed up by Dr. Santiago his primary care physician. He has chronic arthritic pain for which she was being given hydrocodone outpatient basis at a dose of 10 mg 4 times a day. He was recently taken off the painkillers and he was asked to follow-up with pain management or pain. The patient has been able to establish himself with the pain service and is currently off treatment. He has been having arthritic pain in his hip ankle and knees bilaterally. No history of any spine injury or any other traumatic skeletal injuries. The patient's main concern during my interview was his pain control. He did not seem to be confused despite his lower sodium level. He seems to be appropriate. No agitation. He is currently on a normal saline which is running at 100 mL an hour. Follow-up sodium level is pending for now. The patient was taken off the chlorthalidone. In terms of his COPD exacerbation, the patient remains on DuoNeb nebulized treatments around the clock and IV Solu Medrol 4 mg every 12 hours. Shows mild interstitial changes bilaterally. The cardiac structures were essentially within normal limits. There is mild interstitial prominence as there is no other consolidation or airspace disease. The patient has a large body habitus. Denies having any cardiac disease. Denies having any congestion heart failure. Most of the medial pulmonary embolism. The patient is obese with a BMI of 37.3. No history of alcohol drinking. He smokes cigarettes almost 1.5 pack of cigarettes on a daily basis. He is EKG is consistent with a normal sinus rhythm with premature atrial complexes. The patient is seen today 05/09/2020 in follow-up on the selective care unit. He is currently awake and alert in no acute distress. Resting comfortably in bed. Still dyspneic with minimal exertion. Still bronchospastic and wheezy. He is currently maintaining O2 saturation in the mid 90s on 1 L/m per nasal cannula. He is afebrile. Hemodynamically stable. Blood culture reveals no growth to date. White count 13.5. Hemoglobin 14.4. Sodium 120. Creatinine 0.48. Potassium 3.9. TSH 0.235. T4 1.38. He remains on DuoNeb inhalations, Pulmicort and Perforomist inhalations, IV Solu-Medrol. NicoDerm patch is in place. The patient is seen today 05/10/2020 in follow-up on the selective care unit. He is currently sitting up in a chair at the bedside. Awake and alert in no acute distress. Less bronchospastic and wheezy today. Maintaining O2 saturations in the 90s on 2 L/m per nasal cannula. He's been afebrile. Blood cultures reveal no growth. Sodium 122. Potassium 4.4. Creatinine 0.54. He remains on DuoNeb inhalations, Pulmicort and Perforomist inhalations, IV Solu- Medrol. NicoDerm patch is in place. The patient is seen today 05/11/2020 in follow-up on the selective care unit. He is currently sitting up in a chair at the bedside. Awake and alert in no acute distress. Maintaining O2 saturations in the upper 90s on 2 L/m per nasal cannula. He is afebrile. Blood culture reveals no growth. White count 13.9. Hemoglobin 14.8. Sodium 125. Potassium 4.3. Creatinine 0.65. He is still somewhat bronchospastic and wheezy. Remains on IV Solu-Medrol, bronchodilators, empiric antibiotics. NicoDerm patch is in place. On 05/12/2020 patient seen in follow-up on internal medical surgical floor. He is awake and alert, currently working with physical therapy, ambulating in the room, standing up with assistance, is quite bronchospastic and dyspneic with exertion. Currently on room air, earlier on 1/2 L patient sat was 94%. Afebrile. Patient is on IV Solu-Medrol 60 mg every 6 hours, he is on IV Rocephin, breathing treatments, Pulmicort and Perforomist. Today's labs are pending, yesterday's sodium was 125, and has been coming up since admission, patient remains on water restriction with a 1200 mL of water on a daily basis. Patient was in the dose of Lasix yesterday per nephrology. We'll obtain follow- up chest x-ray today. On 05/13/2020 patient seen in follow-up on general medical surgical floor. He is resting in a recliner, but sleepy today, but arouses easily to verbal stimuli, answering questions appropriately, he still feels very short of breath at rest and with any exertion, still audibly wheezing on today's exam, we increased the patient's dose of IV steroids yesterday and he remains on Solu- Medrol 60 mg every 6 hours, remains on nebulized bronchodilators, and empiric antibiotics, he has been afebrile, he is a 1-1/2 L of oxygen with a pulse ox of 91%, hemodynamically stable, no hemoptysis, no significant phlegm production, yesterday we added Mucinex. Repeat chest x-ray showed no acute cardiopulmonary process. He remains on fluid restriction at 1200 mL of oral fluids on a daily basis, his sodium is improving, and is up to 129 on today's labs, chloride is 85, CO2 is 38, BUN is 21 and creatinine 0.6. The patient is seen today 05/14/2020 in follow-up on the regular medical floor. He is currently sitting up at the bedside. Awake and alert in no acute distress. Presently working with physical therapy. Requiring 4 L/m per nasal cannula to maintain O2 saturation in the 90s. D-dimer 0.31. Still somewhat bronchospastic and wheezy. Chest x-ray shows no acute pulmonary process. Blood cultures reveal no growth. Sodium 132. Potassium 3.9. Creatinine 0.75. He is continued on DuoNeb inhalations, Pulmicort and Perforomist inhalations, IV Solu-Medrol, Mucinex, ceftriaxone. Nicotine patch is in place. Objective - Vital Signs Vital signs: Vital Signs Temp 97.7 F 05/14/20 07:07 Pulse 67 05/14/20 11:16 Resp 16 05/14/20 08:00 BP 160/75 05/14/20 07:07 Pulse Ox 88 L 05/14/20 07:52 Intake & Output 05/13/20 05/14/20 05/14/20 18:59 06:59 18:59 Intake Total 1252 600 80 Balance 1252 600 80 Weight 119.5 kg Intake: Intake, IV Titration 50 Amount cefTRIAXone 1 gm In 50 Sodium Chloride 0.9% 50 ml @ 100 mls/hr IVPB Q24HR [facility] Rx#:[id number] Oral 1202 600 80 Other: Voiding Method Toilet Toilet Toilet Urinal - Exam Gen. appearance: morbidly obese 69-year-old gentleman, on 4 L nasal cannula, comfortable in no acute distress Head exam was generally normal. There was no scleral icterus or corneal arcus. Mucous membranes were moist. Neck was supple and without jugular venous distension, thyromegaly, or carotid bruits. Carotids were easily palpable bilaterally. There was no adenopathy. The patient is a Mallapati 4 that is no goiter or neck masses Lung sounds are diminished and the patient scattered expiratory wheezes throughout the lung his bilaterally Cardiac exam revealed the PMI to be normally situated and sized. The rhythm was regular and no extrasystoles were noted during several minutes of auscultation. The first and second heart sounds were normal and physiologic splitting of the second heart sound was noted. There were no murmurs, rubs, clicks, or gallops. Abdominal exam revealed normal bowel sounds. The abdomen was soft, non-tender, and without masses, organomegaly, or appreciable enlargement of the abdominal aorta. Patient is overall obese and the patient's organs cannot be accurately palpated. Examination of the skin revealed no evidence of significant rashes, suspicious appearing nevi or other concerning lesions. Neurologically the patient is awake and alert and is no focal neurological de ficits. Psychiatric examination the patient may have an underlying depression. - Labs CBC & Chem 7: 05/13/20 08:34 05/14/20 10:31 Labs: Abnormal Lab Results - Last 24 Hours (Table) 05/13/20 05/13/20 05/14/20 Range/Units 16:39 20:17 06:52 Sodium (137-145) mmol/L Chloride (98-107) mmol/L Carbon Dioxide (22-30) mmol/L BUN (9-20) mg/dL Glucose (74-99) mg/dL POC Glucose (mg/dL) 180 H 127 H 158 H (75-99) mg/dL 05/14/20 05/14/20 Range/Units 10:31 11:23 Sodium 132 L (137-145) mmol/L Chloride 88 L (98-107) mmol/L Carbon Dioxide 34 H (22-30) mmol/L BUN 28 H (9-20) mg/dL Glucose 199 H (74-99) mg/dL POC Glucose (mg/dL) 150 H (75-99) mg/dL Microbiology - Last 24 Hours (Table) 05/08/20 06:45 Blood Culture - Final Blood No Growth after 144 hours Assessment and Plan Assessment: 1 acute COPD exacerbation with secondary shortness of breath 2 hyponatremia, chronicity is not known, probably chronic and the patient has been taken chlorthalidone outpatient basis. This was discontinued and the patient is currently on normal saline infusion. No altered mentation. No seizure activity. No confusion. Improved and currently sodium level 132 3 diabetes mellitus type 2 4 hypertension 5 hyperlipidemia 6 history of depression with questionable suicidal ideation the patient will be seen by psychiatry, and addition to history of anxiety. 7 obesity 8 chronic pain maintained on narcotic medication on outpatient basis in the form of hydrocodone. The pain medication was discontinued by his primary care physician and the patient is looking to get involved in a pain clinic regarding his chronic pain medication need. Plan The patient was seen and evaluated by Dr. Daniels Chest x-ray and labs reviewed Improved but not back to his baseline D-dimer negative Continue the current treatment plan We will continue to follow I, the cosigning physician, performed a history & physical examination of the patient. Lungs sounds with bilateral end expiratory wheeze, diminished. Maintaining good O2 saturations in the 90s on 4 L/m per nasal cannula. I discussed the assessment and plan of care with my nurse practitioner, Kelley Haq. I attest to the above note as dictated by her.
[2020-05-14] MEDS: IPRATROPIUM-ALBUTEROL 3 ML NEB INHALATION PRN ×2 (15:27→19:44)
--- NOTE | 2020-05-14 15:52 | P.PN ---
Subjective Principal diagnosis: This is a 69-year-old male who was recently admitted with COPD exacerbation, acute ventricular bronchitis, acute hypoxic respiratory failure and is being closely monitored. Following closely. Patient is maintained on IV steroids and will continue at this time. Patient continues to be extremely dyspneic and is currently maintained on oxygen via nasal cannula. Patient continues to refuse the CPAP and BiPAP. Patient's oxygen saturations dipped down into the 80s with exertion and a d-dimer is done which is negative. Patient states he does not wear oxygen in the outpatient setting as he is not able to afford it. Patient is also maintained on fluid restrictions and quite upset about that. Will continue to monitor closely. Patient is currently maintained on bronchodilators and will continue at this time. Review of systems: Constitutional: No reports of fatigue, fever, or chills Cardiovascular: No reports of chest pain or palpitations Respiratory: Reports continued shortness of breath and cough GI: No reports of nausea, vomiting, or diarrhea : No reports of dysuria or retention Neurovascular: No reports of weakness or numbness All medications have been reviewed. Objective - Vital Signs Vital signs: Vital Signs Temp 97.7 F 05/14/20 07:07 Pulse 75 05/14/20 15:28 Resp 16 05/14/20 13:03 BP 146/66 05/14/20 13:03 Pulse Ox 95 05/14/20 13:03 Intake & Output 05/13/20 05/14/20 05/14/20 18:59 06:59 18:59 Intake Total 1252 600 160 Balance 1252 600 160 Weight 119.5 kg Intake: Intake, IV Titration 50 Amount cefTRIAXone 1 gm In 50 Sodium Chloride 0.9% 50 ml @ 100 mls/hr IVPB Q24HR [facility] Rx#:[id number] Oral 1202 600 160 Other: Voiding Method Toilet Toilet Toilet Urinal - Exam Gen: This is a 69-year-old male sitting up in the chair, awake, alert and oriented 3, well-developed, well-nourished. HEENT: Head is atraumatic, normocephalic. Pupils equal, round. Sclerae is anicteric. NECK: Supple. No JVD. No lymphadenopathy. No thyromegaly. LUNGS: Diminished breath sounds bilaterally a few scattered rhonchi and expiratory wheezing noted on exam. No intercostal retractions. HEART: 1, S2 are muffled. ABDOMEN: Soft. Obese. Bowel sounds are present. No masses. No tenderness. EXTREMITIES: No pedal edema. No calf tenderness. NEUROLOGICAL: Patient is awake, alert and oriented x3. Diffuse weakness noted. - Labs CBC & Chem 7: 05/13/20 08:34 05/14/20 10:31 Labs: Abnormal Lab Results - Last 24 Hours (Table) 05/13/20 05/13/20 05/14/20 Range/Units 16:39 20:17 06:52 Sodium (137-145) mmol/L Chloride (98-107) mmol/L Carbon Dioxide (22-30) mmol/L BUN (9-20) mg/dL Glucose (74-99) mg/dL POC Glucose (mg/dL) 180 H 127 H 158 H (75-99) mg/dL 05/14/20 05/14/20 Range/Units 10:31 11:23 Sodium 132 L (137-145) mmol/L Chloride 88 L (98-107) mmol/L Carbon Dioxide 34 H (22-30) mmol/L BUN 28 H (9-20) mg/dL Glucose 199 H (74-99) mg/dL POC Glucose (mg/dL) 150 H (75-99) mg/dL Microbiology - Last 24 Hours (Table) 05/08/20 06:45 Blood Culture - Final Blood No Growth after 144 hours Assessment and Plan Assessment: Chronic obstructive pulmonary disease acute exacerbation with acute purulent tracheobronchitis with acute hypoxic hypercarbic respiratory failure Possible sleep apnea Severe hyponatremia possibly secondary to chlorthalidone Suicidal ideation history History of gastroesophageal reflux disease Diabetes mellitus type 2 Hypertension Hyperlipidemia History of depression Continued ongoing nicotine dependence Hypochloremia Increased white blood count History of asthma, COPD History of degenerative joint disease History of anxiety, depression Plan: Continue current medications, management, and symptomatic treatment. Pulmonary following closely. Patient continues to desat without oxygen and a d-dimer was done which was negative. Patient is currently maintained on IV steroids along with breathing inhalational treatments and will continue at this time. Patient was given a one-time dose of IV Lasix today for shortness of breath. Sodium slightly improved at 132 with a creatinine of 0.75. Blood sugars being closely monitored and will continue with sliding scale lung with oral antidiabetic medications. Patient is also maintained on antibiotics in the form of ceftriaxone and will continue at this time. Discussed with the patient about needing oxygen while at home and he states he is unable to afford this. Will discuss with case management and social work about discharge planning needs. Due to multiple complex medical issues, prognosis is guarded. Further recommendations to follow.
[2020-05-14 16:52] LABS: Glucose,Whole Blood 141 mg/dL (75-99)
--- NOTE | 2020-05-14 16:56 | PN ---
PROGRESS NOTE Patient is seen for followup for hyponatremia. His serum sodium has improved to 132 today. Patient did receive a dose of tolvaptan. He is maintained on fluid restriction. He got a dose of IV Lasix this morning. Overall, patient states that he is feeling better, but he is complaining about fluid restriction. PHYSICAL EXAMINATION: On examination today, blood pressure was 138/84, heart rate 68 per minute. He is afebrile. Examination of lower extremities shows edema 1+ bilaterally with chronic skin changes noted. Patient has audible wheeze. Abdomen is soft, obese, nontender. [employer] DEVEL[employer] exam grossly intact. LABS: Labs show sodium 132, potassium 3.9. BUN 28, creatinine 0.75. ASSESSMENT: 1. Hyponatremia, currently hypervolemic. Agree with Lasix. I will maintain patient on scheduled dose of loop diuretics. He should continue some degree of fluid restriction and maintain adequate protein intake. 2. Morbid obesity. 3. Chronic obstructive pulmonary disease with exacerbation, now improved. PLAN: Add scheduled dose of Lasix. Repeat labs in a.m. MMODL / IJN: [id number] /
[2020-05-14] MEDS: MELATONIN 5 MG TABLET PO SCH (19:32)
[2020-05-14 20:27] LABS: Glucose,Whole Blood 130 mg/dL (75-99)
[2020-05-15] MEDS: HEPARIN SODIUM,PORCINE 5,000 UNIT/ML 1 ML VIAL SQ SCH ×4 (00:58→23:18)
[2020-05-15] MEDS: methylPREDNISolone SOD SUCCI 125 MG/2 ML VIAL IV SCH ×5 (00:58→23:19)
[2020-05-15] MEDS: diazePAM 2 MG TAB PO PRN ×2 (01:05→22:01)
[2020-05-15] MEDS: HYDROcodone/APAP 10-325MG 1 EACH TAB PO PRN ×4 (01:05→22:01)
[2020-05-15 06:52] LABS: Glucose,Whole Blood 145 mg/dL (75-99)
[2020-05-15] MEDS: PANTOPRAZOLE 40 MG TABLET PO SCH (07:31)
[2020-05-15] MEDS: metFORMIN 500 MG TAB PO SCH ×2 (07:31→17:15)
[2020-05-15] MEDS: INSULIN ASPART (NovoLOG) 100 UNIT/ML VIAL SQ SCH ×4 (07:33→21:21)
[2020-05-15] MEDS: FORMOTEROL FUMARATE 20 MCG/2 ML NEBU INHALATION SCH ×2 (08:28→19:47)
[2020-05-15] MEDS: IPRATROPIUM 0.5 MG/2.5 ML NEBU INHALATION SCH ×4 (08:28→19:47)
[2020-05-15] MEDS: BUDESONIDE 1 MG/2 ML NEBU INHALATION SCH ×2 (08:28→19:47)
[2020-05-15] MEDS: amLODIPine 10 MG TAB PO SCH (09:24)
[2020-05-15] MEDS: guaiFENesin 600 MG TABLET.ER PO SCH ×2 (09:25→21:20)
[2020-05-15] MEDS: DULoxetine HCL 60 MG CAPSULE.DR PO SCH (09:25)
[2020-05-15] MEDS: METOPROLOL TARTRATE 50 MG TAB PO SCH ×2 (09:26→21:21)
[2020-05-15] MEDS: NICOTINE 21MG/24HR PATCH TRANSDERM SCH (09:27)
[2020-05-15 10:06] LABS: Basophils # (A) 0.1 k/uL (0-0.2); Basophils % (A) 0 %; Eosinophils # (A) 0.1 k/uL (0-0.7); Eosinophils % (A) 1 %; HCT 46.9 % (39.0-53.0); HGB 15.1 gm/dL (13.0-17.5); Lymphocytes # (A) 0.7 k/uL (1.0-4.8); Lymphocytes % (A) 3 %; MCH 29.7 pg (25.0-35.0); MCHC 32.2 g/dL (31.0-37.0); MCV 92.1 fL (80.0-100.0); Mean Platelet Volume 6.9; Monocytes # (A) 1.5 k/uL (0-1.0); Monocytes % (A) 6 %; Neutrophils # (A) 22.9 k/uL (1.3-7.7); Neutrophils % (A) 90 %; Platelet Count 403 k/uL (150-450); RBC 5.09 m/uL (4.30-5.90); RDW 13.2 % (11.5-15.5); WBC 25.3 k/uL (3.8-10.6)
[2020-05-15 10:18] LABS: African American GFR (CKD) >90 (>60 ml/min/1.73 sqM); Anion Gap 7 mmol/L; Blood Urea Nitrogen 30 mg/dL (9-20); Calcium 8.9 mg/dL (8.4-10.2); Carbon Dioxide 36 mmol/L (22-30); Chloride 89 mmol/L (98-107); Glucose 165 mg/dL (74-99); Non-African American GFR(CKD) >90 (>60 ml/min/1.73 sqM); Potassium 4.2 mmol/L (3.5-5.1); Sodium 132 mmol/L (137-145)
--- NOTE | 2020-05-15 11:28 | PN ---
PROGRESS NOTE Patient is seen for followup for hyponatremia. Currently he is hypervolemic and maintained on Lasix. Serum sodium is stable at 132. PHYSICAL EXAMINATION: Today blood pressure was 173/77, heart rate of 76 per minute, patient is afebrile. Examination of the heart S1, S2. Examination of the lungs, bilateral breath sounds are heard. Decreased breath sounds at bases. Abdomen is soft. Morbidly obese. Examination of the lower extremities shows chronic skin changes edema 1+ bilaterally. [employer]FT[employer]ERSON exam grossly intact. LABS: Show sodium 132, potassium 4.2, chloride 89, CO2 is 36, BUN 30, creatinine 0.69, hemoglobin 15.1. ASSESSMENT: 1. Hyponatremia currently hypervolemic and being diuresed. Continue with current dose of Lasix. Maintain some degree of free water restriction. Repeat labs in a.m. 2. Mild volume overload, currently improved. 3. Morbid obesity. 4. Chronic obstructive pulmonary disease with exacerbation, now improved. PLAN: Maintain patient on oral Lasix at a scheduled dose which he should continue as outpatient. MMODL / IJN: [id number] /
--- NOTE | 2020-05-15 11:42 | P.PN ---
Subjective Progress Note Date: 05/15/20 Principal diagnosis: Acute exacerbation of chronic obstructive pulmonary disease 69-year-old morbidly obese male patient, a chronic smoker with known history of COPD, came into the hospital because of worsening shortness of breath, chest tightness and wheezing.. During this current admission the patient was also found to be hyponatremic. His sodium level was 113 and the patient was taking chlorthalidone on outpatient basis. Note that this patient has been followed up by Dr. Santiago his primary care physician. He has chronic arthritic pain for which she was being given hydrocodone outpatient basis at a dose of 10 mg 4 times a day. He was recently taken off the painkillers and he was asked to follow-up with pain management or pain. The patient has been able to establish himself with the pain service and is currently off treatment. He has been having arthritic pain in his hip ankle and knees bilaterally. No history of any spine injury or any other traumatic skeletal injuries. The patient's main concern during my interview was his pain control. He did not seem to be confused despite his lower sodium level. He seems to be appropriate. No agitation. He is currently on a normal saline which is running at 100 mL an hour. Follow-up sodium level is pending for now. The patient was taken off the chlorthalidone. In terms of his COPD exacerbation, the patient remains on DuoNeb nebulized treatments around the clock and IV Solu Medrol 4 mg every 12 hours. Shows mild interstitial changes bilaterally. The cardiac structures were essentially within normal limits. There is mild interstitial prominence as there is no other consolidation or airspace disease. The patient has a large body habitus. Denies having any cardiac disease. Denies having any congestion heart failure. Most of the medial pulmonary embolism. The patient is obese with a BMI of 37.3. No history of alcohol drinking. He smokes cigarettes almost 1.5 pack of cigarettes on a daily basis. He is EKG is consistent with a normal sinus rhythm with premature atrial complexes. The patient is seen today 05/09/2020 in follow-up on the selective care unit. He is currently awake and alert in no acute distress. Resting comfortably in bed. Still dyspneic with minimal exertion. Still bronchospastic and wheezy. He is currently maintaining O2 saturation in the mid 90s on 1 L/m per nasal cannula. He is afebrile. Hemodynamically stable. Blood culture reveals no growth to date. White count 13.5. Hemoglobin 14.4. Sodium 120. Creatinine 0.48. Potassium 3.9. TSH 0.235. T4 1.38. He remains on DuoNeb inhalations, Pulmicort and Perforomist inhalations, IV Solu-Medrol. NicoDerm patch is in place. The patient is seen today 05/10/2020 in follow-up on the selective care unit. He is currently sitting up in a chair at the bedside. Awake and alert in no acute distress. Less bronchospastic and wheezy today. Maintaining O2 saturations in the 90s on 2 L/m per nasal cannula. He's been afebrile. Blood cultures reveal no growth. Sodium 122. Potassium 4.4. Creatinine 0.54. He remains on DuoNeb inhalations, Pulmicort and Perforomist inhalations, IV Solu- Medrol. NicoDerm patch is in place. The patient is seen today 05/11/2020 in follow-up on the selective care unit. He is currently sitting up in a chair at the bedside. Awake and alert in no acute distress. Maintaining O2 saturations in the upper 90s on 2 L/m per nasal cannula. He is afebrile. Blood culture reveals no growth. White count 13.9. Hemoglobin 14.8. Sodium 125. Potassium 4.3. Creatinine 0.65. He is still somewhat bronchospastic and wheezy. Remains on IV Solu-Medrol, bronchodilators, empiric antibiotics. NicoDerm patch is in place. On 05/12/2020 patient seen in follow-up on internal medical surgical floor. He is awake and alert, currently working with physical therapy, ambulating in the room, standing up with assistance, is quite bronchospastic and dyspneic with exertion. Currently on room air, earlier on 1/2 L patient sat was 94%. Afebrile. Patient is on IV Solu-Medrol 60 mg every 6 hours, he is on IV Rocephin, breathing treatments, Pulmicort and Perforomist. Today's labs are pending, yesterday's sodium was 125, and has been coming up since admission, patient remains on water restriction with a 1200 mL of water on a daily basis. Patient was in the dose of Lasix yesterday per nephrology. We'll obtain follow- up chest x-ray today. On 05/13/2020 patient seen in follow-up on general medical surgical floor. He is resting in a recliner, but sleepy today, but arouses easily to verbal stimuli, answering questions appropriately, he still feels very short of breath at rest and with any exertion, still audibly wheezing on today's exam, we increased the patient's dose of IV steroids yesterday and he remains on Solu- Medrol 60 mg every 6 hours, remains on nebulized bronchodilators, and empiric antibiotics, he has been afebrile, he is a 1-1/2 L of oxygen with a pulse ox of 91%, hemodynamically stable, no hemoptysis, no significant phlegm production, yesterday we added Mucinex. Repeat chest x-ray showed no acute cardiopulmonary process. He remains on fluid restriction at 1200 mL of oral fluids on a daily basis, his sodium is improving, and is up to 129 on today's labs, chloride is 85, CO2 is 38, BUN is 21 and creatinine 0.6. The patient is seen today 05/14/2020 in follow-up on the regular medical floor. He is currently sitting up at the bedside. Awake and alert in no acute distress. Presently working with physical therapy. Requiring 4 L/m per nasal cannula to maintain O2 saturation in the 90s. D-dimer 0.31. Still somewhat bronchospastic and wheezy. Chest x-ray shows no acute pulmonary process. Blood cultures reveal no growth. Sodium 132. Potassium 3.9. Creatinine 0.75. He is continued on DuoNeb inhalations, Pulmicort and Perforomist inhalations, IV Solu-Medrol, Mucinex, ceftriaxone. Nicotine patch is in place. The patient is seen today 05/15/2020 in follow-up on the regular medical floor. He is currently sitting up in a chair at the bedside. Awake and alert in no acute distress. Breathing easier today as compared to yesterday. Still not quite back to his baseline. Maintaining O2 saturations in the mid 90s on 4 L/m per nasal cannula. He is afebrile. White count 25.3. Hemoglobin 15.1. Sodium 132. Potassium 4.0. Bicarb 36. Creatinine 0.69. Objective - Vital Signs Vital signs: Vital Signs Temp 97.7 F 05/15/20 07:00 Pulse 80 05/15/20 08:49 Resp 16 05/15/20 08:00 BP 173/77 05/15/20 07:00 Pulse Ox 95 05/15/20 07:00 Intake & Output 05/14/20 05/15/20 05/15/20 18:59 06:59 18:59 Intake Total 160 200 Balance 160 200 Weight 120.5 kg Intake: Oral 160 200 Other: Voiding Method Toilet Toilet Toilet # Voids 1 - Exam Gen. appearance: morbidly obese 69-year-old gentleman, on 4 L nasal cannula, comfortable in no acute distress Head exam was generally normal. There was no scleral icterus or corneal arcus. Mucous membranes were moist. Neck was supple and without jugular venous distension, thyromegaly, or carotid bruits. Carotids were easily palpable bilaterally. There was no adenopathy. The patient is a Mallapati 4 that is no goiter or neck masses Lung sounds are diminished and the patient scattered expiratory wheezes throughout the lung his bilaterally Cardiac exam revealed the PMI to be normally situated and sized. The rhythm was regular and no extrasystoles were noted during several minutes of auscultation. The first and second heart sounds were normal and physiologic splitting of the second heart sound was noted. There were no murmurs, rubs, clicks, or gallops. Abdominal exam revealed normal bowel sounds. The abdomen was soft, non-tender, and without masses, organomegaly, or appreciable enlargement of the abdominal aorta. Patient is overall obese and the patient's organs cannot be accurately palpated. Examination of the skin revealed no evidence of significant rashes, suspicious appearing nevi or other concerning lesions. Neurologically the patient is awake and alert and is no focal neurological deficits. Psychiatric examination the patient may have an underlying depression. - Labs CBC & Chem 7: 05/15/20 09:43 05/15/20 09:43 Labs: Abnormal Lab Results - Last 24 Hours (Table) 05/14/20 05/14/20 05/14/20 Range/Units 11:23 16:49 20:26 WBC (3.8-10.6) k/uL Neutrophils # (1.3-7.7) k/uL Lymphocytes # (1.0-4.8) k/uL Monocytes # (0-1.0) k/uL Sodium (137-145) mmol/L Chloride (98-107) mmol/L Carbon Dioxide (22-30) mmol/L BUN (9-20) mg/dL Glucose (74-99) mg/dL POC Glucose (mg/dL) 150 H 141 H 130 H (75-99) mg/dL 05/15/20 05/15/20 05/15/20 Range/Units 06:50 09:43 09:43 WBC 25.3 H (3.8-10.6) k/uL Neutrophils # 22.9 H (1.3-7.7) k/uL Lymphocytes # 0.7 L (1.0-4.8) k/uL Monocytes # 1.5 H (0-1.0) k/uL Sodium 132 L (137-145) mmol/L Chloride 89 L (98-107) mmol/L Carbon Dioxide 36 H (22-30) mmol/L BUN 30 H (9-20) mg/dL Glucose 165 H (74-99) mg/dL POC Glucose (mg/dL) 145 H (75-99) mg/dL Microbiology - Last 24 Hours (Table) 05/08/20 06:45 Blood Culture - Final Blood No Growth after 144 hours Assessment and Plan Assessment: 1 acute COPD exacerbation with secondary shortness of breath 2 hyponatremia, chronicity is not known, probably chronic and the patient has been taken chlorthalidone outpatient basis. This was discontinued and the patient is currently on normal saline infusion. No altered mentation. No sei zure activity. No confusion. Improved and currently sodium level 132 3 diabetes mellitus type 2 4 hypertension 5 hyperlipidemia 6 history of depression with questionable suicidal ideation the patient will be seen by psychiatry, and addition to history of anxiety. 7 obesity 8 chronic pain maintained on narcotic medication on outpatient basis in the form of hydrocodone. The pain medication was discontinued by his primary care physician and the patient is looking to get involved in a pain clinic regarding his chronic pain medication need. Plan The patient was seen and evaluated by Dr. Daniels Improved but not back to his baseline Continue the current treatment plan Add theophylline Titrate down the FiO2 as tolerated We will continue to follow I, the cosigning physician, performed a history & physical examination of the patient. Lungs sounds with bilateral end expiratory wheeze, diminished. Maintaining good O2 saturations in the 90s on 3 L/m per nasal cannula. I discussed the assessment and plan of care with my nurse practitioner, Kelley Haq. I attest to the above note as dictated by her.
[2020-05-15 12:09] LABS: Glucose,Whole Blood 125 mg/dL (75-99)
[2020-05-15] MEDS: THEOPHYLLINE 24 HOUR 400 MG CAP.ER.24H PO SCH (12:12)
[2020-05-15] MEDS: FUROSEMIDE 40 MG TAB PO SCH ×2 (12:12→22:05)
--- NOTE | 2020-05-15 12:34 | P.PN ---
Subjective Progress Note Date: 05/15/20 Principal diagnosis: This is a 69-year-old male who was recently admitted with COPD exacerbation, acute ventricular bronchitis, acute hypoxic respiratory failure and is being closely monitored. Following closely. Patient is maintained on IV steroids and will continue at this time. Patient continues to be extremely dyspneic and is currently maintained on oxygen via nasal cannula. Patient continues to refuse the CPAP and BiPAP. Patient's oxygen saturations dipped down into the 80s with exertion and a d-dimer is done which is negative. Patient states he does not wear oxygen in the outpatient setting as he is not able to afford it. Patient is also maintained on fluid restrictions and quite upset about that. Will continue to monitor closely. Patient is currently maintained on bronchodilators and will continue at this time. Review of systems: Constitutional: No reports of fatigue, fever, or chills Cardiovascular: No reports of chest pain or palpitations Respiratory: Reports continued shortness of breath and cough GI: No reports of nausea, vomiting, or diarrhea : No reports of dysuria or retention Neurovascular: No reports of weakness or numbness All medications have been reviewed. 05/15/2020 Patient is seen and evaluated in follow-up continues to be dyspneic with exertion although states shortness of breath has slightly improved. Pulmonary and nephrology following closely. Patient is being maintained on oral Lasix 40 mg twice daily and will continue at this time. Patient is also receiving bronchodilators along with IV steroids and IV antibiotics in the form of ceftriaxone and will continue at this time. Theophylline has been added. Discussed with nursing staff about attempting to wean FiO2 as patient does not normally wear oxygen in the outpatient setting. Patient states he cannot afford it. Discussed this with case management and they are looking into cost and options of oxygen in the outpatient setting. Patient is a every day smoker and refuses to quit at this time. Sodium today is 132 with a potassium of 4.2 and current creatinine is 0.69. We'll continue to monitor blood sugars closely as well. Currently no reports of chest pain, worsening shortness of breath, or palpitations. Patient is afebrile. No reports of nausea or vomiting and patient is tolerating diet. Objective - Vital Signs Vital signs: Vital Signs Temp 97.7 F 05/15/20 07:00 Pulse 84 05/15/20 11:54 Resp 16 09/03/20 08:00 BP 173/77 05/15/20 07:00 Pulse Ox 95 05/15/20 07:00 Intake & Output 05/14/20 05/15/20 05/15/20 18:59 06:59 18:59 Intake Total 160 200 Balance 160 200 Weight 120.5 kg Intake: Oral 160 200 Other: Voiding Method Toilet Toilet Toilet # Voids 1 1 - Exam Gen: This is a 69-year-old male sitting up in the chair, awake, alert and oriented 3, well-developed, well-nourished. HEENT: Head is atraumatic, normocephalic. Pupils equal, round. Sclerae is anicteric. NECK: Supple. No JVD. No lymphadenopathy. No thyromegaly. LUNGS: Diminished breath sounds bilaterally a few scattered rhonchi and expiratory wheezing noted on exam. No intercostal retractions. HEART: S1, S2 are muffled. ABDOMEN: Soft. Obese. Bowel sounds are present. No masses. No tenderness. EXTREMITIES: No pedal edema. No calf tenderness. NEUROLOGICAL: Patient is awake, alert and oriented x3. Diffuse weakness noted. - Labs CBC & Chem 7: 05/15/20 09:43 05/15/20 09:43 Labs: Abnormal Lab Results - Last 24 Hours (Table) 05/14/20 05/14/20 05/15/20 Range/Units 16:49 20:26 06:50 WBC (3.8-10.6) k/uL Neutrophils # (1.3-7.7) k/uL Lymphocytes # (1.0-4.8) k/uL Monocytes # (0-1.0) k/uL Sodium (137-145) mmol/L Chloride (98-107) mmol/L Carbon Dioxide (22-30) mmol/L BUN (9-20) mg/dL Glucose (74-99) mg/dL POC Glucose (mg/dL) 141 H 130 H 145 H (75-99) mg/dL 05/15/20 05/15/20 05/15/20 Range/Units 09:43 09:43 12:07 WBC 25.3 H (3.8-10.6) k/uL Neutrophils # 22.9 H (1.3-7.7) k/uL Lymphocytes # 0.7 L (1.0-4.8) k/uL Monocytes # 1.5 H (0-1.0) k/uL Sodium 132 L (137-145) mmol/L Chloride 89 L (98-107) mmol/L Carbon Dioxide 36 H (22-30) mmol/L BUN 30 H (9-20) mg/dL Glucose 165 H (74-99) mg/dL POC Glucose (mg/dL) 125 H (75-99) mg/dL Microbiology - Last 24 Hours (Table) 05/08/20 06:45 Blood Culture - Final Blood No Growth after 144 hours Assessment and Plan Assessment: Chronic obstructive pulmonary disease acute exacerbation with acute purulent tracheobronchitis with acute hypoxic hypercarbic respiratory failure Possible sleep apnea Severe hyponatremia possibly secondary to chlorthalidone Suicidal ideation history History of gastroesophageal reflux disease Diabetes mellitus type 2 Hypertension Hyperlipidemia History of depression Continued ongoing nicotine dependence Hypochloremia Increased white blood count History of asthma, COPD History of degenerative joint disease History of anxiety, depression Plan: Continue current medications, management, and symptomatic treatment. Pulmonary following closely. Theophylline along with 40 mg twice daily of Lasix being added. Patient is currently maintained on IV steroids along with breathing inhalational treatments and will continue at this time. ood sugars being closely monitored and will continue with sliding scale along with oral antidiabetic medications. Patient is also maintained on antibiotics in the form of ceftriaxone and will continue at this time. Discussed with the patient about needing oxygen while at home and he states he is unable to afford this. Discussed with case management and social work about discharge planning needs impossibility of O2 needed in the home in case management looking into pricing. Due to multiple complex medical issues, prognosis is guarded. Further recommendations to follow.
[2020-05-15 14:55] VITALS: BMI 36.0
[2020-05-15 16:36] LABS: Glucose,Whole Blood 176 mg/dL (75-99)
[2020-05-15] MEDS: IPRATROPIUM-ALBUTEROL 3 ML NEB INHALATION PRN ×2 (16:57→19:47)
[2020-05-15 20:25] LABS: Glucose,Whole Blood 154 mg/dL (75-99)
[2020-05-15] MEDS: MELATONIN 5 MG TABLET PO SCH (21:20)
[2020-05-16 01:53] VITALS: RESP 18
[2020-05-16] MEDS: methylPREDNISolone SOD SUCCI 125 MG/2 ML VIAL IV SCH (05:21)
[2020-05-16 07:16] LABS: Glucose,Whole Blood 135 mg/dL (75-99)
[2020-05-16] MEDS: INSULIN ASPART (NovoLOG) 100 UNIT/ML VIAL SQ SCH ×2 (07:36→12:07)
[2020-05-16] MEDS: HYDROcodone/APAP 10-325MG 1 EACH TAB PO PRN (08:39)
[2020-05-16] MEDS: DULoxetine HCL 60 MG CAPSULE.DR PO SCH (08:39)
[2020-05-16] MEDS: amLODIPine 10 MG TAB PO SCH (08:39)
[2020-05-16] MEDS: NICOTINE 21MG/24HR PATCH TRANSDERM SCH (08:40)
[2020-05-16] MEDS: guaiFENesin 600 MG TABLET.ER PO SCH (08:40)
[2020-05-16] MEDS: metFORMIN 500 MG TAB PO SCH (08:40)
[2020-05-16] MEDS: THEOPHYLLINE 24 HOUR 400 MG CAP.ER.24H PO SCH (08:41)
[2020-05-16] MEDS: PANTOPRAZOLE 40 MG TABLET PO SCH (08:41)
[2020-05-16] MEDS: METOPROLOL TARTRATE 50 MG TAB PO SCH (08:41)
[2020-05-16] MEDS: FUROSEMIDE 40 MG TAB PO SCH ×2 (08:41→16:09)
[2020-05-16] MEDS: BUDESONIDE 1 MG/2 ML NEBU INHALATION SCH (08:49)
[2020-05-16] MEDS: IPRATROPIUM 0.5 MG/2.5 ML NEBU INHALATION SCH ×3 (08:50→15:55)
[2020-05-16] MEDS: FORMOTEROL FUMARATE 20 MCG/2 ML NEBU INHALATION SCH (09:01)
[2020-05-16] MEDS: HEPARIN SODIUM,PORCINE 5,000 UNIT/ML 1 ML VIAL SQ SCH ×2 (09:15→16:09)
--- NOTE | 2020-05-16 09:27 | P.PN ---
Progress Note - Text Progress Note Date: 05/16/20 This is 69 years old male who was admitted to [facility] with a diagnosis of COPD exacerbation, the patient had history of chronic pain and he was managed , his primary care doctor Pankaj , patient reported that he was on Buckner 10/325 every 6 hours at home, but his primary care recommend to stoped medication and he is asking me to provide prescription for Buckner, I explained to the patient that the [facility] pain clinic , we don't manage medication, we are mostly interventional pain clinic, for this reason I recommend once patient discharged from the hospital he could follow up with Dr. Alberts , for medication management
[2020-05-16] MEDS ORDERED: predniSONE 20 MG TAB PO SCH (10:45)
[2020-05-16 11:30] LABS: Glucose,Whole Blood 120 mg/dL (75-99)
--- NOTE | 2020-05-16 11:50 | P.PN ---
Subjective Progress Note Date: 05/16/20 Principal diagnosis: Acute exacerbation of chronic obstructive pulmonary disease 69-year-old morbidly obese male patient, a chronic smoker with known history of COPD, came into the hospital because of worsening shortness of breath, chest tightness and wheezing.. During this current admission the patient was also found to be hyponatremic. His sodium level was 113 and the patient was taking chlorthalidone on outpatient basis. Note that this patient has been followed up by Dr. Santiago his primary care physician. He has chronic arthritic pain for which she was being given hydrocodone outpatient basis at a dose of 10 mg 4 times a day. He was recently taken off the painkillers and he was asked to follow-up with pain management or pain. The patient has been able to establish himself with the pain service and is currently off treatment. He has been having arthritic pain in his hip ankle and knees bilaterally. No history of any spine injury or any other traumatic skeletal injuries. The patient's main concern during my interview was his pain control. He did not seem to be confused despite his lower sodium level. He seems to be appropriate. No agitation. He is currently on a normal saline which is running at 100 mL an hour. Follow-up sodium level is pending for now. The patient was taken off the chlorthalidone. In terms of his COPD exacerbation, the patient remains on DuoNeb nebulized treatments around the clock and IV Solu Medrol 4 mg every 12 hours. Shows mild interstitial changes bilaterally. The cardiac structures were essentially within normal limits. There is mild interstitial prominence as there is no other consolidation or airspace disease. The patient has a large body habitus. Denies having any cardiac disease. Denies having any congestion heart failure. Most of the medial pulmonary embolism. The patient is obese with a BMI of 37.3. No history of alcohol drinking. He smokes cigarettes almost 1.5 pack of cigarettes on a daily basis. He is EKG is consistent with a normal sinus rhythm with premature atrial complexes. The patient is seen today 05/09/2020 in follow-up on the selective care unit. He is currently awake and alert in no acute distress. Resting comfortably in bed. Still dyspneic with minimal exertion. Still bronchospastic and wheezy. He is currently maintaining O2 saturation in the mid 90s on 1 L/m per nasal cannula. He is afebrile. Hemodynamically stable. Blood culture reveals no growth to date. White count 13.5. Hemoglobin 14.4. Sodium 120. Creatinine 0.48. Potassium 3.9. TSH 0.235. T4 1.38. He remains on DuoNeb inhalations, Pulmicort and Perforomist inhalations, IV Solu-Medrol. NicoDerm patch is in place. The patient is seen today 05/10/2020 in follow-up on the selective care unit. He is currently sitting up in a chair at the bedside. Awake and alert in no acute distress. Less bronchospastic and wheezy today. Maintaining O2 saturations in the 90s on 2 L/m per nasal cannula. He's been afebrile. Blood cultures reveal no growth. Sodium 122. Potassium 4.4. Creatinine 0.54. He remains on DuoNeb inhalations, Pulmicort and Perforomist inhalations, IV Solu- Medrol. NicoDerm patch is in place. The patient is seen today 05/11/2020 in follow-up on the selective care unit. He is currently sitting up in a chair at the bedside. Awake and alert in no acute distress. Maintaining O2 saturations in the upper 90s on 2 L/m per nasal cannula. He is afebrile. Blood culture reveals no growth. White count 13.9. Hemoglobin 14.8. Sodium 125. Potassium 4.3. Creatinine 0.65. He is still somewhat bronchospastic and wheezy. Remains on IV Solu-Medrol, bronchodilators, empiric antibiotics. NicoDerm patch is in place. On 05/12/2020 patient seen in follow-up on internal medical surgical floor. He is awake and alert, currently working with physical therapy, ambulating in the room, standing up with assistance, is quite bronchospastic and dyspneic with exertion. Currently on room air, earlier on 1/2 L patient sat was 94%. Afebrile. Patient is on IV Solu-Medrol 60 mg every 6 hours, he is on IV Rocephin, breathing treatments, Pulmicort and Perforomist. Today's labs are pending, yesterday's sodium was 125, and has been coming up since admission, patient remains on water restriction with a 1200 mL of water on a daily basis. Patient was in the dose of Lasix yesterday per nephrology. We'll obtain follow- up chest x-ray today. On 05/13/2020 patient seen in follow-up on general medical surgical floor. He is resting in a recliner, but sleepy today, but arouses easily to verbal stimuli, answering questions appropriately, he still feels very short of breath at rest and with any exertion, still audibly wheezing on today's exam, we increased the patient's dose of IV steroids yesterday and he remains on Solu- Medrol 60 mg every 6 hours, remains on nebulized bronchodilators, and empiric antibiotics, he has been afebrile, he is a 1-1/2 L of oxygen with a pulse ox of 91%, hemodynamically stable, no hemoptysis, no significant phlegm production, yesterday we added Mucinex. Repeat chest x-ray showed no acute cardiopulmonary process. He remains on fluid restriction at 1200 mL of oral fluids on a daily basis, his sodium is improving, and is up to 129 on today's labs, chloride is 85, CO2 is 38, BUN is 21 and creatinine 0.6. The patient is seen today 05/14/2020 in follow-up on the regular medical floor. He is currently sitting up at the bedside. Awake and alert in no acute distress. Presently working with physical therapy. Requiring 4 L/m per nasal cannula to maintain O2 saturation in the 90s. D-dimer 0.31. Still somewhat bronchospastic and wheezy. Chest x-ray shows no acute pulmonary process. Blood cultures reveal no growth. Sodium 132. Potassium 3.9. Creatinine 0.75. He is continued on DuoNeb inhalations, Pulmicort and Perforomist inhalations, IV Solu-Medrol, Mucinex, ceftriaxone. Nicotine patch is in place. The patient is seen today 05/15/2020 in follow-up on the regular medical floor. He is currently sitting up in a chair at the bedside. Awake and alert in no acute distress. Breathing easier today as compared to yesterday. Still not quite back to his baseline. Maintaining O2 saturations in the mid 90s on 4 L/m per nasal cannula. He is afebrile. White count 25.3. Hemoglobin 15.1. Sodium 132. Potassium 4.0. Bicarb 36. Creatinine 0.69. The patient is seen today 05/16/2020 in follow-up on the regular medical floor. He is awake and alert in no acute distress. He is feeling back to his baseline as far as his pulmonary status is concerned. He is still requiring 4 L nasal cannula to maintain O2 saturations in the low 90s. He's been afebrile. Hemodynamically stable. Blood culture reveals no growth. Glucose 120. Continued on DuoNeb inhalations, Pulmicort and Perforomist inhalations, IV Solu-Medrol, theophylline. Antibiotics in the form of ceftriaxone. Nicotine patch in place. Objective - Vital Signs Vital signs: Vital Signs Temp 98.0 F 05/16/20 06:50 Pulse 76 05/16/20 09:10 Resp 18 05/16/20 08:00 BP 135/84 05/16/20 06:50 Pulse Ox 94 L 05/16/20 06:50 Intake & Output 05/15/20 05/16/20 05/16/20 18:59 06:59 18:59 Intake Total 1957 100 Balance 1957 Weight 120.5 kg 118.6 kg Intake: Oral 1957 Other: Voiding Method Toilet Toilet # Voids 1 2 # Bowel Movements 1 - Exam Gen. appearance: morbidly obese 69-year-old gentleman, on 4 L nasal cannula, comfortable in no acute distress Head exam was generally normal. There was no scleral icterus or corneal arcus. Mucous membranes were moist. Neck was supple and without jugular venous distension, thyromegaly, or carotid bruits. Carotids were easily palpable bilaterally. There was no adenopathy. The patient is a Mallampati 4. no goiter or neck masses Lung sounds are diminished and the patient has faint end expiratory wheeze bilaterally Cardiac exam revealed the PMI to be normally situated and sized. The rhythm was regular and no extrasystoles were noted during several minutes of auscultation. The first and second heart sounds were normal and physiologic splitting of the second heart sound was noted. There were no murmurs, rubs, clicks, or gallops. Abdominal exam revealed normal bowel sounds. The abdomen was soft, non-tender, and without masses, organomegaly, or appreciable enlargement of the abdominal aorta. Patient is overall obese and the patient's organs cannot be accurately palpated. Examination of the skin revealed no evidence of significant rashes, suspicious appearing nevi or other concerning lesions. Neurologically the patient is awake and alert and is no focal neurological deficits. Psychiatric examination the patient may have an underlying depression. - Labs CBC & Chem 7: 05/15/20 09:43 05/15/20 09:43 Labs: Abnormal Lab Results - Last 24 Hours (Table) 05/15/20 05/15/20 05/15/20 Range/Units 12:07 16:34 20:24 POC Glucose (mg/dL) 125 H 176 H 154 H (75-99) mg/dL 05/16/20 05/16/20 Range/Units 06:58 11:25 POC Glucose (mg/dL) 135 H 120 H (75-99) mg/dL Assessment and Plan Assessment: 1 acute hypoxic respiratory failure secondary to an acute COPD exacerbation 2 hyponatremia, chronicity is not known, probably chronic and the patient has been taken chlorthalidone outpatient basis. This was discontinued and the patient is currently on normal saline infusion. No altered mentation. No seizure activity. No confusion. Improved and currently sodium level 132 3 diabetes mellitus type 2 4 hypertension 5 hyperlipidemia 6 history of depression with questionable suicidal ideation the patient was seen by psychiatry, in addition to a history of anxiety. 7 obesity 8 chronic pain maintained on narcotic medication on outpatient basis in the form of hydrocodone. The pain medication was discontinued by his primary care physician and the patient is looking to get involved in a pain clinic regarding his chronic pain medication need. Plan The patient was seen and evaluated by Dr. Daniels Feeling back to his baseline from the pulmonary standpoint Cleared for discharge, continue bronchodilators, prednisone, theophylline Probable need for home oxygen Follow-up in our office in 1-2 weeks' time I, the cosigning physician, performed a history & physical examination of the patient. Lungs sounds with bilateral end expiratory wheeze, diminished. Maintaining good O2 saturations in the 90s on 4 L/m per nasal cannula. I discussed the assessment and plan of care with my nurse practitioner, Kelley Haq. I attest to the above note as dictated by her.
[2020-05-16 14:29] VITALS: BP 134/76; TEMP 97.6
--- NOTE | 2020-05-16 14:46 | PN ---
PROGRESS NOTE Patient is seen for followup for hyponatremia which is currently hypervolemic. Patient is maintained on oral Lasix. His sodium was 132 yesterday. Patient is being discharged. PHYSICAL EXAMINATION: He is comfortable. Blood pressure was 133/67, heart rate 56 per minute, patient is afebrile. Examination of the heart S1, S2. Examination of the lungs, bilateral breath sounds are heard. Abdomen is soft, obese. Examination of the lower extremities shows chronic skin changes. Trace edema noted. [employer] exam grossly intact. LABS: Show sodium 132 from yesterday, potassium 4.2, serum creatinine 0.69. ASSESSMENT: 1. Hyponatremia currently hypervolemic, maintained on oral Lasix which we can continue. Repeat labs as outpatient. 2. Volume overload, now improved. 3. Acute hypoxic respiratory failure secondary to COPD exacerbation, currently improved. PLAN: Continue with oral Lasix. Monitor labs as outpatient. Patient is stable for discharge from nephrology standpoint. MMODL / IJN: [id number] /
[2020-05-16 16:09] VITALS: PULSE 70
[2020-05-16 16:21] LABS: Glucose,Whole Blood 167 mg/dL (75-99)
[2020-05-16] MEDS: diazePAM 2 MG TAB PO PRN (17:12)
--- NOTE | 2020-05-19 08:50 | P.DS ---
Providers Date of admission: 05/08/20 07:54 Expected date of discharge: 05/16/20 Attending physician: Charissa Mcnair Consults: 05/08/20 08:01 Consult Physician Stat Consulting Provider: Tang Jones Consult Reason/Comments: COPD exacerbation Do you want consulting provider notified?: Yes 05/08/20 08:48 Consult Physician Stat Consulting Provider: Tc Brady Consult Reason/Comments: Hyponatremia Do you want consulting provider notified?: Yes 05/08/20 10:23 Consult Physician Routine Consulting Provider: Dung Long Consult Reason/Comments: suicidal ideation Do you want consulting provider notified?: Yes 05/15/20 14:06 Consult Physician Routine Consulting Provider: Anesthesia,Services Consult Reason/Comments: pain management Do you want consulting provider notified?: Yes Primary care physician: Elver Jackson [facility] Course: Final Diagnosis Chronic obstructive pulmonary disease acute exacerbation with acute purulent tracheobronchitis with acute hypoxic hypercarbic respiratory failure Possible sleep apnea Severe hyponatremia possibly secondary to chlorthalidone Suicidal ideation history History of gastroesophageal reflux disease Diabetes mellitus type 2 Hypertension Hyperlipidemia History of depression Continued ongoing nicotine dependence Hypochloremia Increased white blood count History of asthma, COPD History of degenerative joint disease History of anxiety, depression Discharge disposition Patient is being discharged in a stable condition with guarded prognosis to home. Patient will continue with home care in the outpatient setting. Patient will follow-up with Dr. Jackson along with pulmonary and pain management in the outpatient setting upon discharge. Patient is to continue with a short course of oral antibiotics in the form of Ceftin 500 mg twice daily for the next 3 days to complete the course. Patient will also continue on a prednisone taper and breathing inhalational treatments. Total time taken is greater than 35 minutes. History of present illness This is a 69-year-old male who was recently admitted with COPD exacerbation acute ventricular bronchitis, and acute hypoxic respiratory failure and was being closely monitored. Pulmonary was following. Patient remained on IV steroids along with breathing inhalational treatments and theophylline was initiated. Patient was also maintained on IV antibiotics and transition to oral antibiotics upon discharge. Patient will continue with Ceftin 500 mg twice daily for the next 3 days to complete the course. Patient will also be following up with pulmonary outpatient along with pain management and his primary care provider. Patient will also continue on a prednisone taper. Patient continued to slowly improve back to baseline and is extremely noncompl iant with medications and treatment plan. Patient refusing any form of CPAP or BiPAP and was initially refusing oxygen stating he could not afford it. Case management made arrangements for oxygen in the outpatient setting as patient continued to desat into the low 80s without oxygen at rest. Patient will continue with oxygen at 4 L via nasal cannula for COPD. Patient was also evaluated by PT/OT recommending subacute rehab all patient is refusing but is agreeable to home care in the outpatient setting. Discussed with the patient at length about continuing to avoid smoking and the risks of smoking with oxygen while in the home. Patient verbalized understanding stating he had a past girlfriend that due to smoking with oxygen. Patient will also be maintained on Lasix for fluid overload and prescriptions were provided for repeat labs in a few days. Discussed with the patient about maintaining fluid restrictions of 1500 mL's per day. Currently no reports of chest pain, worsening shortness of breath, or palpitations. Patient is afebrile. No reports of nausea or vomiting and patient is tolerating diet. Patient really expressing to go home today. Patient will be discharged home today. Guarded prognosis. On exam vital signs are stable. Temp is 97.6F, pulse is 70, respirations are 18, blood pressure is 134/76, oxygen saturation is 91% on 4 L via nasal cannula. Cardio S1, S2 are muffled. Respiratory system shows diminished breath sounds at the bases with some scattered rhonchi noted. Mild expiratory wheezing noted on exam. Abdomen is soft and nontender. Nervous system shows no focal deficits. Please refer to medication reconciliation sheet for a list of medications. Patient Condition at Discharge: Stable Plan - Discharge Summary Discharge Rx Participant: No New Discharge Prescriptions: New Cefuroxime Axetil [Ceftin] 500 mg PO BID 3 Days #6 tab DULoxetine HCL [Cymbalta] 60 mg PO DAILY 30 Days #30 capsule. Ipratropium-Albuterol Nebulize [Duoneb 0.5 mg-3 mg/3 ml Soln] 3 ml INHALATION RT-Q4H PRN 30 Days #90 ml PRN Reason: Shortness Of Breath Or Wheezing Nicotine 21Mg/24Hr Patch [Habitrol] 1 patch TRANSDERM DAILY #20 patch Furosemide [Lasix] 40 mg PO BID@0900,1600 30 Days #60 tab guaiFENesin [Mucinex] 600 mg PO Q12HR #20 tablet.er amLODIPine [Norvasc] 10 mg PO DAILY 30 Days #30 tab predniSONE 10 mg PO DIRECTED #30 tab Theophylline 24 Hour [Teddy-24] 400 mg PO DAILY 30 Days #30 cap.er.24h diazePAM [Valium] 2 mg PO TID PRN #12 tab PRN Reason: Anxiety Continue Potassium Chloride ER [K-Dur 20] 20 meq PO DAILY Omeprazole 20 mg PO DAILY Metoprolol Tartrate [Lopressor] 50 mg PO BID metFORMIN HCL 500 mg PO BID-W/MEALS Albuterol Sulfate [Albuterol Sulfate Hfa] 2 puff PO RT-Q4H PRN PRN Reason: Shortness Of Breath Or Wheezing Albuterol Nebulized [Ventolin Nebulized] 2.5 mg INHALATION RT-TID PRN PRN Reason: Wheezing Hydrocodone/Acetaminophen [[place] 10-325] 1 tab PO Q6H PRN #12 tab PRN Reason: Pain Discontinued Diazepam [Valium] 5 mg PO BID PRN PRN Reason: Anxiety Chlorthalidone [Hygroton] 25 mg PO DAILY Discharge Medication List Albuterol Nebulized [Ventolin Nebulized] 2.5 mg INHALATION RT-TID PRN 05/08/20 [History] Albuterol Sulfate [Albuterol Sulfate Hfa] 2 puff PO RT-Q4H PRN 05/08/20 [History] Metoprolol Tartrate [Lopressor] 50 mg PO BID 05/08/20 [History] Omeprazole 20 mg PO DAILY 05/08/20 [History] Potassium Chloride ER [K-Dur 20] 20 meq PO DAILY 05/08/20 [History] metFORMIN HCL 500 mg PO BID-W/MEALS 05/08/20 [History] Cefuroxime Axetil [Ceftin] 500 mg PO BID 3 Days #6 tab 05/16/20 [Rx] DULoxetine HCL [Cymbalta] 60 mg PO DAILY 30 Days #30 irvin. 05/16/20 [Rx] Furosemide [Lasix] 40 mg PO BID@0900,1600 30 Days #60 tab 05/16/20 [Rx] Hydrocodone/Acetaminophen [[place] 10-325] 1 tab PO Q6H PRN #12 tab 05/16/20 [Rx] Ipratropium-Albuterol Nebulize [Duoneb 0.5 mg-3 mg/3 ml Soln] 3 ml INHALATION RT-Q4H PRN 30 Days #90 ml 05/16/20 [Rx] Nicotine 21Mg/24Hr Patch [Habitrol] 1 patch TRANSDERM DAILY #20 patch 05/16/20 [Rx] Theophylline 24 Hour [[place]dy-24] 400 mg PO DAILY 30 Days #30 cap.er.24h 05/16/20 [Rx] amLODIPine [Norvasc] 10 mg PO DAILY 30 Days #30 tab 05/16/20 [Rx] diazePAM [Valium] 2 mg PO TID PRN #12 tab 05/16/20 [Rx] guaiFENesin [Mucinex] 600 mg PO Q12HR #20 tablet.er 05/16/20 [Rx] predniSONE 10 mg PO DIRECTED #30 tab 05/16/20 [Rx] Follow up Appointment(s)/Referral(s): [facility] [facility] [NON-STAFF] - Kelley Haq NPC [Nurse Practitioner] - 05/29/20 2:30 pm [facility], [NON-STAFF] - 1 Week Aleksandr Alberts MD [STAFF PHYSICIAN] - 1 Week (Office closed at time of discharge please call TuesdayMay 19 to set up a follow up appointment) Elver Jackson MD [Primary Care Provider] - 3 Days (Office closed at time of discharge please call TuesdayMay 19 to set up a follow up appointment) Patient Instructions/Handouts: COPD (Chronic Obstructive Pulmonary Disease) (DC) Activity/Diet/Wound Care/Special Instructions: [facility] will deliver a portable oxygen tank to the bedside before discharge. Please call them once home to arrange delivery of your oxygen concentrator tonight: [phone]. Activity Limited until follow-up Continue current consistent carb diet Continue to monitor and maintain fluid restriction some 1500 mL's per day Continue with Lasix and theophylline Continue with antibiotics until finished Continue prednisone taper Follow-up with home care Follow-up with primary care provider upon discharge Follow-up with pain management in the outpatient setting Follow-up with pulmonary in 1-2 weeks Continue to avoid smoking Do not smoke anywhere near oxygen or oxygen tanks Discharge Disposition: HOME WITH HOME HEALTH SERVICES
== END 2020-05-16 17:26 | disposition home health service (06) | DRG 190 ==
LOC: EC 06:04 → 3SCARD 07:54 → 4SSUR 05-09 18:31
PROVIDERS: ADMIT Internal Medicine; ATTEND Internal Medicine
PROC: 5A09457 Assistance with Respiratory Ventilation, 24-96 Consecutive Hours, Continuous Positive Airway Pressure (ICD-10-PCS; principal; 2020-05-10)
DX: J44.1 Chronic obstructive pulmonary disease with (acute) exacerbation (principal); J96.01 Acute respiratory failure with hypoxia; J96.02 Acute respiratory failure with hypercapnia; R45.851 Suicidal ideations; E87.1 Hypo-osmolality and hyponatremia; I10 Essential (primary) hypertension; F32.9 Major depressive disorder, single episode, unspecified; E78.5 Hyperlipidemia, unspecified; E83.42 Hypomagnesemia; K21.9 Gastro-esophageal reflux disease without esophagitis; E11.9 Type 2 diabetes mellitus without complications; T50.2X5A Adverse effect of carbonic-anhydrase inhibitors, benzothiadiazides and other diuretics, initial encounter; T78.40XA Allergy, unspecified, initial encounter; E66.01 Morbid (severe) obesity due to excess calories; Z20.828 Contact with and (suspected) exposure to other viral communicable diseases; J20.9 Acute bronchitis, unspecified; J44.0 Chronic obstructive pulmonary disease with (acute) lower respiratory infection; F17.210 Nicotine dependence, cigarettes, uncomplicated; I49.1 Atrial premature depolarization; G89.29 Other chronic pain; G47.00 Insomnia, unspecified; F45.42 Pain disorder with related psychological factors; F41.9 Anxiety disorder, unspecified; E87.8 Other disorders of electrolyte and fluid balance, not elsewhere classified; E87.70 Fluid overload, unspecified; G47.30 Sleep apnea, unspecified; I48.91 Unspecified atrial fibrillation; M19.90 Unspecified osteoarthritis, unspecified site; Z79.891 Long term (current) use of opiate analgesic; Z79.84 Long term (current) use of oral hypoglycemic drugs; Z79.52 Long term (current) use of systemic steroids; Z79.899 Other long term (current) drug therapy; Z88.0 Allergy status to penicillin; Z87.01 Personal history of pneumonia (recurrent); Z99.81 Dependence on supplemental oxygen; Z90.49 Acquired absence of other specified parts of digestive tract; Z98.890 Other specified postprocedural states; Z81.1 Family history of alcohol abuse and dependence; Z68.37 Body mass index [BMI] 37.0-37.9, adult; Z91.14 Patient's other noncompliance with medication regimen; Z91.19 Patient's noncompliance with other medical treatment and regimen
CPT/HCPCS: 36415; 71045; 71046; 80048; 80053; 81001; 83036; 83605; 83735; 83880; 83930; 83935; 84295; 84300; 84439; 84443; 84481; 84484; 84550; 85025; 85379; 85610; 85730; 87040; 93005; 94640; 94660; 94760; 96374; 96375; 99291

== ENCOUNTER 2020-06-04 18:10 | Inpatient (IN) | payer MEDICARE ==
--- NOTE | 2020-06-04 18:47 | ED ---
General Adult HPI - General Chief complaint: Dizziness Stated complaint: Dizziness Time Seen by Provider: 06/04/20 18:16 Source: patient, EMS, RN notes reviewed, old records reviewed Mode of arrival: EMS Limitations: no limitations - History of Present Illness Initial comments: Patient is a pleasant 69-year-old male presenting to the emergency Department with complaints of hyperkalemia. Patient did have abnormal lab results and his primary care physician was unable to get a hold of them and sent the police to get him. Patient states overall he feels fine. Patient does admit to feeling somewhat fatigued and drowsy today. Patient does have history of COPD however states his breathing is not really bothering him. No chest pain or palpitations. No weakness. Patient was recently in the hospital. - Related Data Home Medications Medication Instructions Recorded Confirmed Albuterol Nebulized [Ventolin 2.5 mg INHALATION RT-TID PRN 05/08/20 06/04/20 Nebulized] Albuterol Sulfate [Albuterol 2 puff INHALATION RT-Q4H PRN 05/08/20 06/04/20 Sulfate Hfa] Metoprolol Tartrate [Lopressor] 50 mg PO BID 05/08/20 06/04/20 Omeprazole 20 mg PO DAILY 05/08/20 06/04/20 Potassium Chloride ER [K-Dur 20] 20 meq PO DAILY 05/08/20 06/04/20 metFORMIN HCL 500 mg PO AC-BID 05/08/20 06/04/20 Hydrocodone/Acetaminophen [[place] 1 tab PO TID PRN 06/04/20 06/04/20 10-325] Potassium Chloride ER [K-Dur 20] 20 meq PO ONCE PRN 06/04/20 06/04/20 Previous Rx's Medication Instructions Recorded DULoxetine HCL [Cymbalta] 60 mg PO DAILY 30 Days #30 05/16/20 capsule. Furosemide [Lasix] 40 mg PO BID@0900,1600 30 Days #60 05/16/20 tab Ipratropium-Albuterol Nebulize 3 ml INHALATION RT-Q4H PRN 30 Days 05/16/20 [Duoneb 0.5 mg-3 mg/3 ml Soln] #90 ml Nicotine 21Mg/24Hr Patch [Habitrol] 1 patch TRANSDERM DAILY #20 patch 05/16/20 Theophylline 24 Hour [Teddy-24] 400 mg PO DAILY 30 Days #30 05/16/20 cap.er.24h amLODIPine [Norvasc] 10 mg PO DAILY 30 Days #30 tab 05/16/20 diazePAM [Valium] 2 mg PO TID PRN #12 tab 05/16/20 guaiFENesin [Mucinex] 600 mg PO Q12HR #20 tablet.er 05/16/20 Allergies Allergy/AdvReac Type Severity Reaction Status Date / Time doxycycline Allergy Anaphylaxis Verified 06/04/20 18:15 Penicillins Allergy Unknown Verified 05/08/20 08:25 Review of Systems ROS Statement: Those systems with pertinent positive or pertinent negative responses have been documented in the HPI. ROS Other: All systems not noted in ROS Statement are negative. Constitutional: Denies: fever Eyes: Denies: eye pain ENT: Denies: ear pain Respiratory: Denies: cough, dyspnea Cardiovascular: Denies: chest pain Endocrine: Reports: fatigue Gastrointestinal: Denies: abdominal pain Genitourinary: Denies: dysuria Musculoskeletal: Denies: back pain Skin: Denies: rash Neurological: Denies: headache Past Medical History Past Medical History: Asthma, COPD, Diabetes Mellitus, GERD/Reflux, Hyperlipidemia, Hypertension, Osteoarthritis (OA), Pneumonia Additional Past Medical History / Comment(s): Bronchitis, was using home oxygen but states machine is no longer working, chronic pain in hips/knees/elbows, falls, "borderline" diabetes, past ETOH abuse but states has not drank in 2 years. History of Any Multi-Drug Resistant Organisms: None Reported Past Surgical History: Appendectomy Additional Past Surgical History / Comment(s): Colonoscopy Past Anesthesia/Blood Transfusion Reactions: No Reported Reaction Past Psychological History: Anxiety, Depression Smoking Status: Former smoker Past Alcohol Use History: None Reported Past Drug Use History: None Reported - Past Family History Father Additional Family Medical History / Comment(s): Father was an alcoholic but was able to quit drinking Mother Additional Family Medical History / Comment(s): Mother was an alcoholic. General Exam Limitations: no limitations General appearance: alert, in no apparent distress Head exam: Present: normocephalic Eye exam: Present: normal appearance, PERRL, EOMI ENT exam: Present: normal oropharynx Neck exam: Present: normal inspection Respiratory exam: Present: decreased breath sounds Cardiovascular Exam: Present: regular rate, irregular rhythm GI/Abdominal exam: Present: soft. Absent: tenderness Extremities exam: Present: normal inspection, pedal edema (+1 bilateral, patient states chronic). Absent: calf tenderness Neurological exam: Present: alert, oriented X3, CN II-XII intact. Absent: motor sensory deficit Expanded Neurological exam: Present: protecting the airway Patient oriented to: Present: person, place, time Speech: Present: fluid speech Cranial nerves: EOM's Intact: Normal Motor strength exam: RUE: 5, LUE: 5, RLE: 5, LLE: 5 Eye Response: (4) open spontaneously Motor Response: (6) obeys commands Verbal Response: (5) oriented Psychiatric exam: Present: normal affect, normal mood Skin exam: Present: normal color Course Vital Signs 06/04/20 06/04/20 06/04/20 18:14 18:58 19:17 Temperature 98.6 F Pulse Rate 106 H 98 75 Respiratory 18 18 20 Rate Blood Pressure 144/66 105/64 O2 Sat by Pulse 90 L 98 Oximetry 06/04/20 19:25 Temperature Pulse Rate 78 Respiratory 20 Rate Blood Pressure O2 Sat by Pulse Oximetry - Reevaluation(s) Reevaluation #1: 06/04/20 20:53 Patient does not meet sepsis criteria. BNP will be added. Blood culture and IV antibiotics will be added. EKG Findings - EKG Comments: EKG Findings:: A. fib with rate of 91. QRS 108. QT 396. QTc 487. Normal axis. Normal QRS. No acute ST change. Procedures - ABG Interpretation Ph: 7.5 PCO2: 49.4 PO2: 53.8 Bicarbonate: 38.9 Interpretation: abnormal, metabolic alkalosis Medical Decision Making - Medical Decision Making Patient reevaluated and updated. Case was discussed in detail with Dr. Evangelista, covering for Dr. Santiago, who will admit. - Lab Data Result diagrams: 06/04/20 18:55 06/04/20 18:55 Lab Results 06/04/20 06/04/20 06/04/20 Range/Units 18:55 18:55 18:57 WBC 6.8 (3.8-10.6) k/uL RBC 3.99 L (4.30-5.90) m/uL Hgb 11.8 L D (13.0-17.5) gm/dL Hct 34.5 L (39.0-53.0) % MCV 86.4 D (80.0-100.0) fL MCH 29.7 (25.0-35.0) pg MCHC 34.4 (31.0-37.0) g/dL RDW 15.0 (11.5-15.5) % Plt Count 406 (150-450) k/uL Neutrophils % 54 % Lymphocytes % 25 % Monocytes % 10 % Eosinophils % 8 % Basophils % 1 % Neutrophils # 3.7 (1.3-7.7) k/uL Lymphocytes # 1.7 (1.0-4.8) k/uL Monocytes # 0.7 (0-1.0) k/uL Eosinophils # 0.5 (0-0.7) k/uL Basophils # 0.1 (0-0.2) k/uL PT (9.0-12.0) sec INR (<1.2) APTT (22.0-30.0) sec Sample Site ABG pH (7.35-7.45) ABG pCO2 (35-45) mmHg ABG pO2 (83-108) mmHg ABG HCO3 (21-25) mmol/L ABG Total CO2 (19-24) mmol/L ABG O2 Saturation (94-97) % ABG Base Excess mmol/L Mickey Test FiO2 % Sodium 123 L (137-145) mmol/L Potassium 3.3 L (3.5-5.1) mmol/L Chloride 81 L (98-107) mmol/L Carbon Dioxide 35 H (22-30) mmol/L Anion Gap 7 mmol/L BUN 10 (9-20) mg/dL Creatinine 0.73 (0.66-1.25) mg/dL Est GFR (CKD-EPI)AfAm >90 (>60 ml/min/1.73 sqM) Est GFR (CKD-EPI)NonAf >90 (>60 ml/min/1.73 sqM) Glucose 136 H (74-99) mg/dL Calcium 8.0 L (8.4-10.2) mg/dL Total Bilirubin 1.5 H (0.2-1.3) mg/dL AST 44 (17-59) U/L ALT 24 (4-49) U/L Alkaline Phosphatase 51 (38-126) U/L Total Protein 6.1 L (6.3-8.2) g/dL Albumin 3.5 (3.5-5.0) g/dL Urine Color Yellow Urine Appearance Clear (Clear) Urine pH 6.5 (5.0-8.0) Ur Specific [place] 1.014 (1.001-1.035) Urine Protein Negative (Negative) Urine Glucose (UA) Negative (Negative) Urine Ketones Negative (Negative) Urine Blood Negative (Negative) Urine Nitrite Negative (Negative) Urine Bilirubin Negative (Negative) Urine Urobilinogen <2.0 (<2.0) mg/dL Ur Leukocyte Esterase Negative (Negative) 06/04/20 06/04/20 Range/Units 19:00 19:06 WBC (3.8-10.6) k/uL RBC (4.30-5.90) m/uL Hgb (13.0-17.5) gm/dL Hct (39.0-53.0) % MCV (80.0-100.0) fL MCH (25.0-35.0) pg MCHC (31.0-37.0) g/dL RDW (11.5-15.5) % Plt Count (150-450) k/uL Neutrophils % % Lymphocytes % % Monocytes % % Eosinophils % % Basophils % % Neutrophils # (1.3-7.7) k/uL Lymphocytes # (1.0-4.8) k/uL Monocytes # (0-1.0) k/uL Eosinophils # (0-0.7) k/uL Basophils # (0-0.2) k/uL PT 9.6 (9.0-12.0) sec INR 0.9 (<1.2) APTT 23.7 (22.0-30.0) sec Sample Site Right Radial ABG pH 7.51 H (7.35-7.45) ABG pCO2 49 H (35-45) mmHg ABG pO2 54 L* (83-108) mmHg ABG HCO3 39 H (21-25) mmol/L ABG Total CO2 40 H (19-24) mmol/L ABG O2 Saturation 89.2 L (94-97) % ABG Base Excess 15.8 mmol/L Mickey Test Yes FiO2 28 % Sodium (137-145) mmol/L Potassium (3.5-5.1) mmol/L Chloride (98-107) mmol/L Carbon Dioxide (22-30) mmol/L Anion Gap mmol/L BUN (9-20) mg/dL Creatinine (0.66-1.25) mg/dL Est GFR (CKD-EPI)AfAm (>60 ml/min/1.73 sqM) Est GFR (CKD-EPI)NonAf (>60 ml/min/1.73 sqM) Glucose (74-99) mg/dL Calcium (8.4-10.2) mg/dL Total Bilirubin (0.2-1.3) mg/dL AST (17-59) U/L ALT (4-49) U/L Alkaline Phosphatase (38-126) U/L Total Protein (6.3-8.2) g/dL Albumin (3.5-5.0) g/dL Urine Color Urine Appearance (Clear) Urine pH (5.0-8.0) Ur Specific [place] (1.001-1.035) Urine Protein (Negative) Urine Glucose (UA) (Negative) Urine Ketones (Negative) Urine Blood (Negative) Urine Nitrite (Negative) Urine Bilirubin (Negative) Urine Urobilinogen (<2.0) mg/dL Ur Leukocyte Esterase (Negative) - Radiology Data Radiology results: image reviewed (Chest x-ray concerning for some increased initial markings, concern for developing heart failure. Also concern for developing right upper lobe infiltrate) Disposition Clinical Impression: Hyponatremia, COPD exacerbation Disposition: ADMITTED IP TO THIS [facility] Condition: Serious Is patient prescribed a controlled substance at d/c from ED?: No Decision Time: 20:11
[2020-06-04 19:03] LABS: ABG Base Excess 15.8 mmol/L; ABG HCO3 39 mmol/L (21-25); ABG Oxygen Saturation 89.2 % (94-97); ABG PCO2 49 mmHg (35-45); ABG PH 7.51 (7.35-7.45); ABG TCO2 40 mmol/L (19-24); Allen Test Performed? Yes
[2020-06-04 19:07] LABS: ABG PO2 54 mmHg (83-108)
[2020-06-04 19:11] LABS: Basophils # (A) 0.1 k/uL (0-0.2); Basophils % (A) 1 %; Eosinophils # (A) 0.5 k/uL (0-0.7); Eosinophils % (A) 8 %; HCT 34.5 % (39.0-53.0); Lymphocytes # (A) 1.7 k/uL (1.0-4.8); Lymphocytes % (A) 25 %; MCH 29.7 pg (25.0-35.0); MCHC 34.4 g/dL (31.0-37.0); Mean Platelet Volume 6.7; Monocytes # (A) 0.7 k/uL (0-1.0); Monocytes % (A) 10 %; Neutrophils # (A) 3.7 k/uL (1.3-7.7); Neutrophils % (A) 54 %; Platelet Count 406 k/uL (150-450); RBC 3.99 m/uL (4.30-5.90); WBC 6.8 k/uL (3.8-10.6)
[2020-06-04] MEDS ORDERED: IPRATROPIUM-ALBUTEROL 3 ML NEB INHALATION STA (19:16)
[2020-06-04 19:25] LABS: ALT 24 U/L (4-49); AST 44 U/L (17-59); African American GFR (CKD) >90 (>60 ml/min/1.73 sqM); Albumin 3.5 g/dL (3.5-5.0); Alkaline Phosphatase 51 U/L (38-126); Anion Gap 7 mmol/L; Blood Urea Nitrogen 10 mg/dL (9-20); Carbon Dioxide 35 mmol/L (22-30); Chloride 81 mmol/L (98-107); Glucose 136 mg/dL (74-99); HGB 11.8 gm/dL (13.0-17.5); MCV 86.4 fL (80.0-100.0); Non-African American GFR(CKD) >90 (>60 ml/min/1.73 sqM); Potassium 3.3 mmol/L (3.5-5.1); Sodium 123 mmol/L (137-145); Total Bilirubin 1.5 mg/dL (0.2-1.3); Total Protein 6.1 g/dL (6.3-8.2)
[2020-06-04 20:08] LABS: INR 0.9 (<1.2); Partial Thromboplastin Time 23.7 sec (22.0-30.0); Prothrombin Time 9.6 sec (9.0-12.0)
[2020-06-04] MEDS ORDERED: methylPREDNISolone SOD SUCCI 125 MG/2 ML VIAL IV STA (20:29)
[2020-06-04] MEDS ORDERED: IPRATROPIUM-ALBUTEROL 3 ML NEB INHALATION PRN ×2 (20:29→22:20)
[2020-06-04] MEDS ORDERED: NALOXONE 0.4 MG/ML 1 ML VIAL IV PRN (20:31)
[2020-06-04 20:37] LABS: Appearance,Urine Clear (Clear); Bilirubin,Urine Negative (Negative); Blood,Urine Negative (Negative); Color,Urine Yellow; Glucose,Urine (UA) Negative (Negative); Ketones,Urine Negative (Negative); Leukocyte Esterase,Urine Negative (Negative); Nitrite,Urine Negative (Negative); PH, Urine 6.5 (5.0-8.0); Protein,Urine Negative (Negative); Specific Gravity,Urine 1.014 (1.001-1.035); Urobilinogen,Urine <2.0 mg/dL (<2.0)
[2020-06-04] MEDS: SODIUM CHLORIDE 0.9% 1,000 ML IV SCH (20:39)
--- NOTE | 2020-06-04 20:48 | XR ---
EXAMINATION TYPE: XR chest 2V DATE OF EXAM: 06/04/2020 COMPARISON: 05/14/2020 INDICATION: Fatigue TECHNIQUE: Frontal and lateral views of the chest are obtained. FINDINGS: The heart size is normal. The pulmonary vasculature is prominent. Mild diffuse increased lung markings are in the right suprahilar region. Correlate for atypical pulmo nary edema. Overload should be considered. Developing pneumonia could be considered. IMPRESSION: 1. Developing infiltrate right upper lobe with some prominence of pulmonary vascular markings. Correl ate for atypical pulmonary edema and volume overload. Follow-up chest studies are recommended.
[2020-06-04] MEDS ORDERED: PNEUMONIA PROTOCOL UTILIZED 1 EACH MISC PO PRN (20:55)
[2020-06-04] MEDS ORDERED: AZITHROMYCIN 500 MG in SODIUM CHLORIDE 0.9% 250 ML IVPB STA (20:55)
[2020-06-04] MEDS ORDERED: HYDROcodone/APAP 10-325MG 1 EACH TAB PO PRN (22:20)
[2020-06-04] MEDS ORDERED: diazePAM 2 MG TAB PO PRN (22:20)
[2020-06-04] MEDS ORDERED: ALBUTEROL NEBULIZED 2.5 MG/3 ML INHALATION PRN ×2 (22:20)
[2020-06-04] MEDS: methylPREDNISolone SOD SUCCI 125 MG/2 ML VIAL IV SCH (22:56)
[2020-06-05] MEDS: PANTOPRAZOLE 40 MG TABLET PO SCH (06:58)
[2020-06-05] MEDS: metFORMIN 500 MG TAB PO SCH ×2 (06:58→18:20)
[2020-06-05 07:02] LABS: Glucose,Whole Blood 226 mg/dL (75-99)
[2020-06-05] MEDS: methylPREDNISolone SOD SUCCI 125 MG/2 ML VIAL IV SCH ×3 (07:03→18:21)
[2020-06-05] MEDS: SODIUM CHLORIDE 0.9% 1,000 ML IV SCH (07:03)
[2020-06-05] MEDS: IPRATROPIUM-ALBUTEROL 3 ML NEB INHALATION SCH ×4 (07:09→20:10)
[2020-06-05 07:53] LABS: Basophils % (A) 0 %; Eosinophils % (A) 0 %; HCT 36.5 % (39.0-53.0); HGB 12.3 gm/dL (13.0-17.5); Lymphocytes # (A) 0.7 k/uL (1.0-4.8); Lymphocytes % (A) 13 %; MCH 29.5 pg (25.0-35.0); MCHC 33.8 g/dL (31.0-37.0); MCV 87.1 fL (80.0-100.0); Monocytes # (A) 0.1 k/uL (0-1.0); Monocytes % (A) 2 %; Neutrophils # (A) 4.7 k/uL (1.3-7.7); Neutrophils % (A) 84 %; Platelet Count 445 k/uL (150-450); RBC 4.18 m/uL (4.30-5.90); RDW 15.4 % (11.5-15.5); WBC 5.5 k/uL (3.8-10.6)
[2020-06-05 08:05] LABS: African American GFR (CKD) >90 (>60 ml/min/1.73 sqM); Anion Gap 5 mmol/L; Blood Urea Nitrogen 9 mg/dL (9-20); Calcium 8.4 mg/dL (8.4-10.2); Carbon Dioxide 37 mmol/L (22-30); Chloride 82 mmol/L (98-107); Glucose 208 mg/dL (74-99); Non-African American GFR(CKD) >90 (>60 ml/min/1.73 sqM); Potassium 3.1 mmol/L (3.5-5.1); Sodium 124 mmol/L (137-145)
--- NOTE | 2020-06-05 08:40 | XR ---
EXAMINATION TYPE: XR chest 2V DATE OF EXAM: 06/05/2020 CLINICAL HISTORY: Pneumonia TECHNIQUE: Frontal and lateral views of the chest are obtained. COMPARISON: 06/04/2020 FINDINGS: The cardiomediastinal silhouette unchanged. There is redemonstrated diffuse increased inte rstitial markings. Subtle more focal opacity over the right upper lobe. No pleural effusion. No pneum othorax. IMPRESSION: Subtle focal airspace opacity over the right upper lobe.
--- NOTE | 2020-06-05 09:41 | P.HPIM ---
History of Present Illness This is a pleasant 69 years old male with past medical history of asthma/COPD, diabetes mellitus, GERD, hyponatremia, hyperlipidemia, hypertension, osteoarthritis. Chronic pain in hips/knees/elbows, anxiety and depression. He came to the hospital because of abnormal lab, he was recently discharged from the hospital where he had low sodium level, he went to see his PCP Dr. Alonzo for posthospitalization follow-up, he was asymptomatic he denies chest pain, no dyspnea, no confusion, no headache or weakness or numbness. His PCP called the police to bring him to the hospital for low sodium Patient states he has no symptoms today other than some little difficulty breathing, and some dry cough. patient states that he drinks a lot of fluids, he drinks more than half a gallon of iced tea every day. He's ex-smoker, quit about 3-4 weeks ago, he quit drinking alcohol about 2 years ago, no illicit drugs Vitals stable, blood pressure is slightly elevated at 161/74. CBC and BMP are unremarkable except for mild anemia with hemoglobin 12.3 and hyponatremia sodium 123, and today is 124, compared to last admission it was 113 and discharge with sodium of 132. At that time and his chlorthalidone was stopped. His liver enzymes AST/ALT are within normal limits. Urine analysis is still suspicious of infection. EKG showed atrial fibrillation at 91, his pro-BNP is 546 and 871 Chest x-ray: Developing infiltrate right upper lobe with some prominence of pulmonary vascular markings. Correlate for atypical pulmonary edema and volume overload. By medical doctor N emergency room patient received breathing treatments, Solu-Medrol and started on ceftriaxone and Zithromax one-time doses. Also was started on normal saline and 100 mL per hour Review of Systems CONSTITUTIONAL: No fever, no malaise, no fatigue. HEENT: No recent visual problems or hearing problems. Denied any sore throat. CARDIOVASCULAR: No orthopnea, PND, no palpitations, no syncope. PULMONARY: No shortness of breath, no cough, no hemoptysis. GASTROINTESTINAL: No diarrhea, no nausea, no vomiting, no abdominal pain. Normoa ctive bowel sounds. NEUROLOGICAL: No headaches, no weakness, no numbness. HEMATOLOGICAL: Denies any bleeding or petechiae. GENITOURINARY: Denies any burning micturition, frequency, or urgency. MUSCULOSKELETAL/RHEUMATOLOGICAL: Denies any joint pain, swelling, or any muscle pain. ENDOCRINE: Denies any polyuria or polydipsia. Past Medical History Past Medical History: Asthma, COPD, Diabetes Mellitus, GERD/Reflux, Hyperlipidemia, Hypertension, Osteoarthritis (OA), Pneumonia Additional Past Medical History / Comment(s): Bronchitis, was using home oxygen but states machine is no longer working, chronic pain in hips/knees/elbows, falls, "borderline" diabetes, past ETOH abuse but states has not drank in 2 years. History of Any Multi-Drug Resistant Organisms: None Reported Past Surgical History: Appendectomy Additional Past Surgical History / Comment(s): Colonoscopy Past Anesthesia/Blood Transfusion Reactions: No Reported Reaction Past Psychological History: Anxiety, Depression Additional Psychological History / Comment(s): Pt resides alone. He has a cane but currently is not using it. He has a nebulizer. He can drive. Pt states he has increased depression and in past week has thought of killing himself by using a shotgun/putting it in his mouth. Smoking Status: Former smoker Past Alcohol Use History: None Reported Additional Past Alcohol Use History / Comment(s): Pt started smoking in 1969 and smokes a ppd or alittle more. He states he has hx of ETOH abuse but has not drank in 2 years. Past Drug Use History: None Reported - Past Family History Father Additional Family Medical History / Comment(s): Father was an alcoholic but was able to quit drinking Mother Additional Family Medical History / Comment(s): Mother was an alcoholic. Medications and Allergies Home Medications Medication Instructions Recorded Confirmed Type Albuterol Nebulized [Ventolin 2.5 mg INHALATION RT-TID PRN 05/08/20 06/04/20 History Nebulized] Albuterol Sulfate [Albuterol 2 puff INHALATION RT-Q4H PRN 05/08/20 06/04/20 History Sulfate Hfa] Metoprolol Tartrate [Lopressor] 50 mg PO BID 05/08/20 06/04/20 History Omeprazole 20 mg PO DAILY 05/08/20 06/04/20 History Potassium Chloride ER [K-Dur 20] 20 meq PO DAILY 05/08/20 06/04/20 History metFORMIN HCL 500 mg PO AC-BID 05/08/20 06/04/20 History DULoxetine HCL [Cymbalta] 60 mg PO DAILY 30 Days #30 05/16/20 06/04/20 Rx capsule. Furosemide [Lasix] 40 mg PO BID@0900,1600 30 Days #60 05/16/20 06/04/20 Rx tab Ipratropium-Albuterol Nebulize 3 ml INHALATION RT-Q4H PRN 30 Days 05/16/20 06/04/20 Rx [Duoneb 0.5 mg-3 mg/3 ml Soln] #90 ml Nicotine 21Mg/24Hr Patch [Habitrol] 1 patch TRANSDERM DAILY #20 patch 05/16/20 06/04/20 Rx Theophylline 24 Hour [Teddy-24] 400 mg PO DAILY 30 Days #30 05/16/20 06/04/20 Rx cap.er.24h amLODIPine [Norvasc] 10 mg PO DAILY 30 Days #30 tab 05/16/20 06/04/20 Rx diazePAM [Valium] 2 mg PO TID PRN #12 tab 05/16/20 06/04/20 Rx guaiFENesin [Mucinex] 600 mg PO Q12HR #20 tablet.er 05/16/20 06/04/20 Rx Hydrocodone/Acetaminophen [[place] 1 tab PO TID PRN 06/04/20 06/04/20 History 10-325] Potassium Chloride ER [K-Dur 20] 20 meq PO ONCE PRN 06/04/20 06/04/20 History Allergies Allergy/AdvReac Type Severity Reaction Status Date / Time doxycycline Allergy Anaphylaxis Verified 06/04/20 18:15 Penicillins Allergy Unknown Verified 05/08/20 08:25 Physical Exam Vitals: Vital Signs Temp Pulse Pulse Resp BP BP Pulse Ox 06/05/20 07:23 92 06/05/20 07:13 96 06/05/20 04:00 95 22 161/74 92 L 06/05/20 00:00 98.3 F 94 22 124/70 94 L 06/04/20 21:17 98.1 F 90 18 114/67 96 06/04/20 21:14 98.7 F 92 20 114/67 06/04/20 21:11 98.1 F 90 20 110/63 92 L 06/04/20 19:25 78 20 06/04/20 19:17 75 20 06/04/20 18:58 98 18 105/64 98 06/04/20 18:14 98.6 F 106 H 18 144/66 90 L Intake and Output 06/04/20 06/05/20 06/05/20 22:59 06:59 14:59 Other: Voiding Method Toilet Weight 116.12 kg 118.9 kg GENERAL: The patient is alert and oriented x3, not in any acute distress. Well developed, well nourished. HEENT: Pupils are round and equally reacting to light. EOMI. No scleral icterus. No conjunctival pallor. Normocephalic, atraumatic. No pharyngeal erythema. No thyromegaly. CARDIOVASCULAR: S1 and S2 present. No murmurs, rubs, or gallops. PULMONARY: Chest is clear to auscultation, no wheezing or crackles. ABDOMEN: Soft, nontender, nondistended, normoactive bowel sounds. No palpable organomegaly. MUSCULOSKELETAL: No joint swelling or deformity. EXTREMITIES: No cyanosis, clubbing, or pedal edema. NEUROLOGICAL: Gross neurological examination did not reveal any focal deficits. SKIN: No rashes. No petechiae Results CBC & Chem 7: 06/05/20 07:28 06/05/20 07:28 Labs: Abnormal Lab Results - Last 24 Hours (Table) 06/04/20 06/04/20 06/04/20 Range/Units 18:55 18:55 19:00 RBC 3.99 L (4.30-5.90) m/uL Hgb 11.8 L D (13.0-17.5) gm/dL Hct 34.5 L (39.0-53.0) % Lymphocytes # (1.0-4.8) k/uL ABG pH 7.51 H (7.35-7.45) ABG pCO2 49 H (35-45) mmHg ABG pO2 54 L* (83-108) mmHg ABG HCO3 39 H (21-25) mmol/L ABG Total CO2 40 H (19-24) mmol/L ABG O2 Saturation 89.2 L (94-97) % Sodium 123 L (137-145) mmol/L Potassium 3.3 L (3.5-5.1) mmol/L Chloride 81 L (98-107) mmol/L Carbon Dioxide 35 H (22-30) mmol/L Glucose 136 H (74-99) mg/dL POC Glucose (mg/dL) (75-99) mg/dL Calcium 8.0 L (8.4-10.2) mg/dL Total Bilirubin 1.5 H (0.2-1.3) mg/dL Total Protein 6.1 L (6.3-8.2) g/dL 06/05/20 06/05/20 Range/Units 06:51 07:28 RBC 4.18 L (4.30-5.90) m/uL Hgb 12.3 L (13.0-17.5) gm/dL Hct 36.5 L (39.0-53.0) % Lymphocytes # 0.7 L (1.0-4.8) k/uL ABG pH (7.35-7.45) ABG pCO2 (35-45) mmHg ABG pO2 (83-108) mmHg ABG HCO3 (21-25) mmol/L ABG Total CO2 (19-24) mmol/L ABG O2 Saturation (94-97) % Sodium (137-145) mmol/L Potassium (3.5-5.1) mmol/L Chloride (98-107) mmol/L Carbon Dioxide (22-30) mmol/L Glucose (74-99) mg/dL POC Glucose (mg/dL) 226 H (75-99) mg/dL Calcium (8.4-10.2) mg/dL Total Bilirubin (0.2-1.3) mg/dL Total Protein (6.3-8.2) g/dL Thrombosis Risk Factor Assmnt - Choose All That Apply Each Factor Represents 1 point: Abnormal pulmonary function (COPD), Obesity (BMI >25) Other Risk Factors: Yes Each Risk Factor Represents 2 Points: Age 61-74 years Thrombosis Risk Factor Assessment Total Risk Factor Score: 4 Thrombosis Risk Factor Assessment Level: Moderate Risk Assessment and Plan Assessment: Acute on chronic hyponatremia Acute hypoxic respiratory failure Pulmonary congestion, rule out heart failure Diabetes mellitus Hypertension Hyperlipidemia Osteoarthritis Chronic pain in multiple joints including hips, knees and elbows Anxiety and depression, not an active issue Plan: This is a pleasant 69 years old male who presents with pulmonary congestion, respiratory failure and hyponatremia. Stop IV fluids. Check proBNP and monitor sodium level, consult nephrology, put the patient and her fluid restriction 1200 mL per day. Check echocardiogram, and pro-calcitonin. Patient counseled to restrict fluid, he was hesitant to comply Labs and medication were reviewed.. Continue same treatment. Continue with symptomatic treatment. Resume home medication. Monitor lytes and vitals. DVT and GI prophylaxis. Further recommendations depends on the clinical course of the patient DVT prophylaxis: Subcutaneous heparin GI Prophylaxis: Pepcid PT/OT: Pending Prognosis is guarded
[2020-06-05] MEDS: THEOPHYLLINE 24 HOUR 400 MG CAP.ER.24H PO SCH (09:57)
[2020-06-05] MEDS: DULoxetine HCL 60 MG CAPSULE.DR PO SCH ×2 (09:57→10:03)
[2020-06-05] MEDS: NICOTINE 21MG/24HR PATCH TRANSDERM SCH (09:57)
[2020-06-05] MEDS: POTASSIUM CHLORIDE ER 20 MEQ TAB.ER PO SCH (09:57)
[2020-06-05] MEDS: guaiFENesin 600 MG TABLET.ER PO SCH ×2 (09:57→21:18)
[2020-06-05 12:01] LABS: Glucose,Whole Blood 228 mg/dL (75-99)
[2020-06-05] MEDS ORDERED: POTASSIUM CHLORIDE ER 20 MEQ TAB.ER PO STA ×2 (12:03→22:16)
--- NOTE | 2020-06-05 12:07 | P.NPCON ---
History of Present Illness - Reason for Consult hyponatremia - History of Present Illness reason for consultation: Hyponatremia History of present illness: Patient is a 69-year-old male seen in renal consultation for hyponatremia. sodium level was 123 on admission and is 124 today. patient presented to the hospital due to abnormal blood work at his primary care physician's office. He was noted to have a low potassium level and was advised to go to the hospital. Potassium level was 3.3 on admission and is 3.1 today. Oral intake is good. Denies chest pain or shortness of breath. He does admit to drinking at least 100 ounces of fluids and a day. Oral intake has been good. Denies any vomiting or diarrhea. No hematuria or dysuria. No history of renal disease. he did receive IV fluids overnight. he denies history of malignancy. denies use of thiazide diuretics. He was maintained on Lasix 40 mg orally twice daily at home. patient does have history of COPD. hemodynamically stable. No fever or chills. No cough. Vital signs are stable. General: The patient appeared well nourished and normally developed. HEENT: Head exam is unremarkable. Neck is without jugular venous distension. LUNGS: Breath sounds decreased. HEART: Rate and Rhythm are regular. ABDOMEN: soft, nontender. Obese. EXTREMITITES: No clubbing, cyanosis, or edema. Past Medical History Past Medical History: Asthma, COPD, Diabetes Mellitus, GERD/Reflux, Hyperlipidemia, Hypertension, Osteoarthritis (OA), Pneumonia Additional Past Medical History / Comment(s): Bronchitis, was using home oxygen but states machine is no longer working, chronic pain in hips/knees/elbows, falls, "borderline" diabetes, past ETOH abuse but states has not drank in 2 years. History of Any Multi-Drug Resistant Organisms: None Reported Past Surgical History: Appendectomy Additional Past Surgical History / Comment(s): Colonoscopy Past Anesthesia/Blood Transfusion Reactions: No Reported Reaction Past Psychological History: Anxiety, Depression Additional Psychological History / Comment(s): Pt resides alone. He has a cane b ut currently is not using it. He has a nebulizer. He can drive. Pt states he has increased depression and in past week has thought of killing himself by using a shotgun/putting it in his mouth. Smoking Status: Former smoker Past Alcohol Use History: None Reported Additional Past Alcohol Use History / Comment(s): Pt started smoking in 1969 and smokes a ppd or alittle more. He states he has hx of ETOH abuse but has not d rank in 2 years. Past Drug Use History: None Reported - Past Family History Father Additional Family Medical History / Comment(s): Father was an alcoholic but was able to quit drinking Mother Additional Family Medical History / Comment(s): Mother was an alcoholic. Medications and Allergies Home Medications Medication Instructions Recorded Confirmed Type Albuterol Nebulized [Ventolin 2.5 mg INHALATION RT-TID PRN 05/08/20 06/04/20 History Nebulized] Albuterol Sulfate [Albuterol 2 puff INHALATION RT-Q4H PRN 05/08/20 06/04/20 Hi story Sulfate Hfa] Metoprolol Tartrate [Lopressor] 50 mg PO BID 05/08/20 06/04/20 History Omeprazole 20 mg PO DAILY 05/08/20 06/04/20 History Potassium Chloride ER [K-Dur 20] 20 meq PO DAILY 05/08/20 06/04/20 History metFORMIN HCL 500 mg PO AC-BID 05/08/20 06/04/20 History DULoxetine HCL [Cymbalta] 60 mg PO DAILY 30 Days #30 05/16/20 06/04/20 Rx capsule. Furosemide [Lasix] 40 mg PO BID@0900,1600 30 Days #60 05/16/20 06/04/20 Rx tab Ipratropium-Albuterol Nebulize 3 ml INHALATION RT-Q4H PRN 30 Days 05/16/20 06/04/20 Rx [Duoneb 0.5 mg-3 mg/3 ml Soln] #90 ml Nicotine 21Mg/24Hr Patch [Habitrol] 1 patch TRANSDERM DAILY #20 patch 05/16/20 06/04/20 Rx Theophylline 24 Hour [Teddy-24] 400 mg PO DAILY 30 Days #30 05/16/20 06/04/20 Rx cap.er.24h amLODIPine [Norvasc] 10 mg PO DAILY 30 Days #30 tab 05/16/20 06/04/20 Rx diazePAM [Valium] 2 mg PO TID PRN #12 tab 05/16/20 06/04/20 Rx guaiFENesin [Mucinex] 600 mg PO Q12HR #20 tablet.er 05/16/20 06/04/20 Rx Hydrocodone/Acetaminophen [Butler 1 tab PO TID PRN 06/04/20 06/04/20 History 10-325] Potassium Chloride ER [K-Dur 20] 20 meq PO ONCE PRN 06/04/20 06/04/20 History Allergies Allergy/AdvReac Type Severity Reaction Status Date / Time doxycycline Allergy Anaphylaxis Verified 06/04/20 18:15 Penicillins Allergy Unknown Verified 05/08/20 08:25 Physical Exam Vitals: Vital Signs Temp Pulse Pulse Resp BP BP Pulse Ox 06/05/20 10:58 92 06/05/20 10:47 88 06/05/20 08:28 97.6 F 102 H 20 116/63 93 L 06/05/20 08:00 102 H 20 06/05/20 07:23 92 06/05/20 07:13 96 06/05/20 04:00 95 22 161/74 92 L 06/05/20 00:00 98.3 F 94 22 124/70 94 L 06/04/20 21:17 98.1 F 90 18 114/67 96 06/04/20 21:14 98.7 F 92 20 114/67 06/04/20 21:11 98.1 F 90 20 110/63 92 L 06/04/20 19:25 78 20 06/04/20 19:17 75 20 06/04/20 18:58 98 18 105/64 98 06/04/20 18:14 98.6 F 106 H 18 144/66 90 L Intake and Output 06/04/20 06/05/20 06/05/20 22:59 06:59 14:59 Intake Total 240 Output Total 400 Balance -160 Intake: Oral 240 Output: Urine 400 Other: Voiding Method Toilet Weight 116.12 kg 118.9 kg Results - Lab Results Most recent lab results ABG pH 7.51 (7.35-7.45) H 06/04/20 19:00 ABG pCO2 49 mmHg (35-45) H 06/04/20 19:00 ABG pO2 54 mmHg (83-108) L* 06/04/20 19:00 ABG HCO3 39 mmol/L (21-25) H 06/04/20 19:00 ABG O2 Saturation 89.2 % (94-97) L 06/04/20 19:00 Calcium 8.4 mg/dL (8.4-10.2) 06/05/20 07:28 06/05/20 07:28 06/05/20 07:28 Assessment and Plan Plan: assessment: 1. Hyponatremia. slightly hypervolemic. also component of excess fluid intake. he is noted to be on Cymbalta which can induce SIADH. recent TSH normal. 2. Hypokalemia secondary to diuresis. 3. COPD exacerbation. plan: 2 L fluid restriction per day. Check serum and urine osmolality and urine sodium level. Samsca 15 mg once today. Replace potassium. 60 mg once today. follow-up echocardiogram. check magnesium level. Repeat electrolytes in the morning. thank you for the consultation. I will continue to follow the patient with you during her hospital stay.
[2020-06-05] MEDS ORDERED: TOLVAPTAN 15 MG 1/2 TABLET PO ONE (12:30)
--- NOTE | 2020-06-05 13:00 | ECHOF ---
Referral Reason:Rule out heart disease MEASUREMENTS -------- HEIGHT: 182.9 cm WEIGHT: 118.8 kg BP: 116/63 RVIDd: 3.4 cm (< 3.3) IVSd: 1.3 cm (0.6 - 1.1) LVIDd: 5.0 cm (3.9 - 5.3) LVPWd: 1.3 cm (0.6 - 1.1) IVSs: 1.9 cm LVIDs: 3.5 cm LVPWs: 1.8 cm LA Diam: 4.2 cm (2.7 - 3.8) LAESV Index (A-L): 31.74 ml/m Ao Diam: 3.6 cm (2.0 - 3.7) AV Cusp: 2.1 cm (1.5 - 2.6) MV EXCURSION: 16.009 mm (> 18.000) MV EF SLOPE: 58 mm/s (70 - 150) EPSS: 2.3 cm RAP: 15.00 mmHg RVSP: 45.06 mmHg FINDINGS -------- Atrial fibrillation. This was a technically difficult study with suboptimal views. The left ventricular size is normal. There is mild concentric left ventricular hypertrophy. Overa ll left ventricular systolic function is low-normal with, an EF between 50 - 55 %. The right ventricle is mildly enlarged. LA is midly dilated 29-33ml/m2. The right atrium is normal in size. Interatrial and interventricular septum intact. The aortic valve is trileaflet and appears structurally normal. There is trace to mild mitral regurgitation. Mild tricuspid regurgitation present. There is mild to moderate pulmonary hypertension. The right ventricular systolic pressure, as measured by Doppler, is 45.06mmHg. The pulmonic valve was not well visualized. The aortic root size is normal. The inferior vena cava is dilated with poor inspiratory collapse which is consistent with estimated r ight atrial pressure of 15 mmHg. There is no pericardial effusion. CONCLUSIONS -------- 1. The left ventricular size is normal. 2. There is mild concentric left ventricular hypertrophy. 3. Overall left ventricular systolic function is low-normal with, an EF between 50 - 55 %. 4. The right ventricle is mildly enlarged. 5. LA is midly dilated 29-33ml/m2. 6. There is trace to mild mitral regurgitation. 7. Mild tricuspid regurgitation present. 8. There is mild to moderate pulmonary hypertension. 9. The right ventricular systolic pressure, as measured by Doppler, is 45.06mmHg. 10. The inferior vena cava is dilated with poor inspiratory collapse which is consistent with estimat ed right atrial pressure of 15 mmHg. 11. There is no pericardial effusion. LIME TRIMMER: aJnet Tijerina RDCS
[2020-06-05 16:48] LABS: Glucose,Whole Blood 279 mg/dL (75-99)
[2020-06-05 20:47] LABS: Glucose,Whole Blood 259 mg/dL (75-99)
[2020-06-05] MEDS ORDERED: AZITHROMYCIN 500 MG TAB PO SCH (20:55)
[2020-06-05] MEDS: INSULIN ASPART (NovoLOG) 100 UNIT/ML VIAL SQ SCH (21:18)
[2020-06-05 21:36] LABS: African American GFR (CKD) >90 (>60 ml/min/1.73 sqM); Anion Gap 8 mmol/L; Blood Urea Nitrogen 13 mg/dL (9-20); Calcium 8.7 mg/dL (8.4-10.2); Carbon Dioxide 34 mmol/L (22-30); Chloride 86 mmol/L (98-107); Glucose 273 mg/dL (74-99); Non-African American GFR(CKD) 83 (>60 ml/min/1.73 sqM); Potassium 3.1 mmol/L (3.5-5.1); Sodium 128 mmol/L (137-145)
[2020-06-05 21:58] LABS: Glucose,Whole Blood 304 mg/dL (75-99)
[2020-06-05] MEDS ORDERED: POTASSIUM CHLORIDE ER 10 MEQ TAB.ER.PRT PO STA (22:16)
[2020-06-05] MEDS ORDERED: metFORMIN 500 MG TAB PO STA (22:18)
[2020-06-05] MEDS ORDERED: Magnesium Replacement Protocol 1 EACH MISC MISCELLANE PRN ×2 (22:18→22:46)
[2020-06-05] MEDS: MAGNESIUM SULFATE-D5W PMX 1 GM in DEXTROSE/WATER 1 100ML.BAG IVPB SCH (22:58)
[2020-06-06] MEDS: methylPREDNISolone SOD SUCCI 125 MG/2 ML VIAL IV SCH ×3 (00:08→11:37)
[2020-06-06] MEDS: MAGNESIUM SULFATE-D5W PMX 1 GM in DEXTROSE/WATER 1 100ML.BAG IVPB SCH (00:09)
[2020-06-06 06:38] LABS: Glucose,Whole Blood 208 mg/dL (75-99)
[2020-06-06] MEDS: PANTOPRAZOLE 40 MG TABLET PO SCH (06:45)
[2020-06-06] MEDS: INSULIN ASPART (NovoLOG) 100 UNIT/ML VIAL SQ SCH ×2 (06:46→12:28)
[2020-06-06] MEDS ORDERED: metFORMIN 500 MG TAB PO SCH (07:30)
[2020-06-06] MEDS: guaiFENesin 600 MG TABLET.ER PO SCH (07:58)
[2020-06-06] MEDS: THEOPHYLLINE 24 HOUR 400 MG CAP.ER.24H PO SCH (07:59)
[2020-06-06] MEDS: DULoxetine HCL 60 MG CAPSULE.DR PO SCH (07:59)
[2020-06-06] MEDS: NICOTINE 21MG/24HR PATCH TRANSDERM SCH (07:59)
[2020-06-06] MEDS: POTASSIUM CHLORIDE ER 20 MEQ TAB.ER PO SCH (07:59)
[2020-06-06 08:14] VITALS: TEMP 97.6
[2020-06-06] MEDS: IPRATROPIUM-ALBUTEROL 3 ML NEB INHALATION SCH ×2 (08:17→13:25)
[2020-06-06 09:03] LABS: African American GFR (CKD) >90 (>60 ml/min/1.73 sqM); Anion Gap 10 mmol/L; Blood Urea Nitrogen 12 mg/dL (9-20); Calcium 9.3 mg/dL (8.4-10.2); Carbon Dioxide 32 mmol/L (22-30); Chloride 90 mmol/L (98-107); Glucose 190 mg/dL (74-99); Magnesium 2.2 mg/dL (1.6-2.3); Non-African American GFR(CKD) >90 (>60 ml/min/1.73 sqM); Potassium 3.3 mmol/L (3.5-5.1); Sodium 132 mmol/L (137-145)
[2020-06-06] MEDS ORDERED: POTASSIUM CHLORIDE ER 20 MEQ TAB.ER PO STA (10:49)
--- NOTE | 2020-06-06 10:53 | P.PN ---
Subjective patient is seen in follow-up for hyponatremia. Sodium level 132 this morning. He received a dose of Samsca on June 05. no chest pain or shortness of breath. He is on 2 L fluid restriction but has already had 1700 mL so far this morning. oral intake is good. Vital signs are stable. General: The patient appeared well nourished and normally developed. HEENT: Head exam is unremarkable. Neck is without jugular venous distension. LUNGS: Breath sounds decreased. HEART: Rate and Rhythm are regular. ABDOMEN: soft, nontender. Obese. EXTREMITITES: No clubbing, cyanosis, or edema. Objective - Vital Signs Vital signs: Vital Signs Temp 97.6 F 06/06/20 08:09 Pulse 92 06/06/20 08:28 Resp 20 06/06/20 08:09 BP 148/76 06/06/20 08:09 Pulse Ox 95 06/06/20 08:09 Intake & Output 06/05/20 06/06/20 06/06/20 18:59 06:59 18:59 Intake Total 1095 300 600 Output Total 700 300 Balance 395 0 600 Weight 117.6 kg Intake: Oral 1095 300 600 Output: Urine 700 300 Other: Voiding Method Toilet - Labs CBC & Chem 7: 06/05/20 07:28 06/06/20 07:58 Labs: Abnormal Lab Results - Last 24 Hours (Table) 06/05/20 06/05/20 06/05/20 Range/Units 07:28 07:28 11:56 Sodium (137-145) mmol/L Potassium (3.5-5.1) mmol/L Chloride (98-107) mmol/L Carbon Dioxide (22-30) mmol/L Creatinine (0.66-1.25) mg/dL Glucose (74-99) mg/dL POC Glucose (mg/dL) 228 H (75-99) mg/dL Osmolality 261 L (280-301) mosm/kg Procalcitonin 0.11 H (0.02-0.09) ng/mL 06/05/20 06/05/20 06/05/20 Range/Units 16:46 17:25 20:31 Sodium (137-145) mmol/L Potassium 3.2 L (3.5-5.1) mmol/L Chloride (98-107) mmol/L Carbon Dioxide (22-30) mmol/L Creatinine (0.66-1.25) mg/dL Glucose (74-99) mg/dL POC Glucose (mg/dL) 279 H 259 H (75-99) mg/dL Osmolality (280-301) mosm/kg Procalcitonin (0.02-0.09) ng/mL 06/05/20 06/05/20 06/06/20 Range/Units 21:15 21:56 06:21 Sodium 128 L (137-145) mmol/L Potassium 3.1 L (3.5-5.1) mmol/L Chloride 86 L (98-107) mmol/L Carbon Dioxide 34 H (22-30) mmol/L Creatinine (0.66-1.25) mg/dL Glucose 273 H (74-99) mg/dL POC Glucose (mg/dL) 304 H 208 H (75-99) mg/dL Osmolality (280-301) mosm/kg Procalcitonin (0.02-0.09) ng/mL 06/06/20 Range/Units 07:58 Sodium 132 L (137-145) mmol/L Potassium 3.3 L (3.5-5.1) mmol/L Chloride 90 L (98-107) mmol/L Carbon Dioxide 32 H (22-30) mmol/L Creatinine 0.64 L (0.66-1.25) mg/dL Glucose 190 H (74-99) mg/dL POC Glucose (mg/dL) (75-99) mg/dL Osmolality (280-301) mosm/kg Procalcitonin (0.02-0.09) ng/mL Microbiology - Last 24 Hours (Table) 06/04/20 21:13 Blood Culture - Preliminary Blood No Growth after 24 hours Assessment and Plan Plan: assessment: 1. Hyponatremia. etiology is poor oral solute intake and excessive fluid intake. Urine sodium less than 10 and urine osmolality 366. Status post abscess June 05. Sodium level 132 this morning. 2. Hypokalemia secondary to diuresis. magnesium normal. Better post replacement. 3. COPD exacerbation. 4. Chronic diastolic CHF with mild to moderate pulmonary hypertension. plan: 2 L fluid restriction per day. replace potassium. 40 mg once today. encourage oral intake, particularly protein. Strongly advised patient to abide by the fluid restriction. I will avoid sodium chloride tablets due to history of CHF.
[2020-06-06 12:06] LABS: Glucose,Whole Blood 184 mg/dL (75-99)
[2020-06-06 12:21] VITALS: BP 116/67; RESP 19
[2020-06-06 13:37] VITALS: PULSE 112
[2020-06-06 14:02] VITALS: BMI 35.2
--- NOTE | 2020-06-06 14:40 | P.CN ---
Psychiatric Consult - . Consult date: 06/06/20 Consult:: 06/06/20 14:29 IDENTIFYING DATA: This patient is a 69-year-old male who currently lives alone and is has 2 kids however his youngest daughter several years ago. HISTORY OF PRESENT ILLNESS: The patient presented to the hospital after police were called along with EMS to his house by patient's primary care physician with regards to abnormal test results including hyperkalemia. Patient was found to have a sodium of 123 and a potassium of 3.3 on admission. Patient also complained of feeling somewhat fatigued and drowsy in the ER. After being admitted patient's sodium had improved to 132. Psychiatry is consulted for "Cymbalta being discontinued for ADHD". Nurse taking care patient did not have any complaints about patient's behavior and states that patient has not endorsed any suicidal thoughts. Patient was seen at the bedside and was watching TV. He was appropriate, and directable during conversation. Patient was tangential/circumstantial at times. He asked several questions about his medications and about possibly being discharged. He did not offer any complaints and states that he had some abnormal blood work that's why he was brought into the hospital. He claims that he has many things to do at home before the weekend. He states that his mood is "fine" denied any depression. He denies any anxiety at this time. He states that his sleep is "on and off" and claims that he usually takes melatonin at home. He denied any guns and weapons at his house and claims that those were removed and are with his neighbors. He did claim that he has an increase in his water intake and has been doing this for years now and claims that he also drinks about a half gallon of ice tea a day and 2 Pepsi's. Psychoeducation was provided to patient about hyponatremia and dilution from excessive water intake patient verbally understood and agreed to cut back significantly on his water intake. At this time patient denies any suicidal or homical ideations, intent or plan. Patient denies any auditory, visual hallucinations and denies any paranoia or delusions. Patients admits to using cigarettes daily and claims that he quit alcohol 2 years ago. PAST PSYCHIATRIC HISTORY: Patient has a a history of depression. He states that he has been on Valium for anxiety and also Cymbalta for mood. Patient denies any previous psychiatric hospitalizations. Patient denies any psychiatric out patient follow-up. Patient denies any history of suicide attempts in the past. PAST MEDICAL HISTORY: COPD, chronic pain, hypertension, diabetes mellitus. ALLERGIES: as per EMR. CHEMICAL DEPENDENCY HISTORY: as per HPI. FAMILY PSYCHIATRIC/SUBSTANCE USE HISTORY: denies SOCIAL HISTORY: Patient was born and raised in [place]. He states that he lives alone in a house and is has 2 kids and his youngest daughter from liver cancer. He states that he completed 1 year of college and worked in the "[employer]" working for [employer]. He states that he left the job 12 years ago. He denied any legal or history. MENTAL STATUS EXAM: General Appearance: Patient appears to be overweight, stated age is alert, pleasant, and attempts to be cooperative. Patient appears to have fair hygiene and grooming wearing hospital gown with fair eye contact. Behavior: Patient is calmly lying in bed without any agitated behavior. Attempts to be cooperative. Speech: Patient's speech is fluent and nonpressured. Talkative. Mood/Affect: Patient reports their mood is "good", affect is congruent Suicidality/Homicidality: Patient denies having any current suicidal or homicidal ideation intent or plan. Perceptions: Patient denies any visual hallucinations and denies any auditory hallucinations Though content/process: There is no evidence of any delusional thought content and thought process is linear and tangential/circumstantial. Memory and concentration: AOX3, Can spell "WORLD" backwards. Fair attention span. Fair abstraction. Judgment and insight: Chronically Limited, improving IMPRESSIONS: Major depressive disorder PLAN: -At this time patient DOES NOT meet criteria for inpatient psychiatric admission. -It is unlikely that patient's Cymbalta is currently causing SIADH. It is more likely that patient is excessively consuming water and other liquids which is diluting patient's sodium levels. Wash Barrel Leader sat and spoke with patient about this extensively and advised patient to cut back on his liquid intake during the day, patient was agreeable to this. Patient should have a follow-up basic metabolic panel to check sodium levels in one week and follow-up with his outpatient provider. -Would recommend the following medication changes/additions: Patient to be continued on his home dose of Cymbalta 60 mg daily for mood/pain/anxiety. Added on melatonin 3 mg nightly for insomnia. Can continue on with Valium when necessary for anxiety. -agriculture worker to provide patient with outpatient mental health/psychiatry resources for appropriate follow up upon discharge -Communicated plan to patient's nurse and hospitalist -Psychiatry will sign off at this time -Please contact with any questions. 06/06/20 14:30 06/06/20 14:38
[2020-06-06] MEDS ORDERED: MELATONIN 3 MG TABLET PO SCH (21:00)
--- NOTE | 2020-06-06 22:41 | P.DS ---
Providers Date of admission: 06/04/20 20:29 Attending physician: Tanvi Evangelista Consults: 06/05/20 08:09 Consult Physician Urgent Consulting Provider: Tc Brady Consult Reason/Comments: hyponatremia Do you want consulting provider notified?: Yes Primary care physician: Elver [facility] Course: Diagnoses: Acute on chronic hyponatremia , thought due to polydipsia and SIADH felt less likely. Improved prior to discharge Acute hypoxic respiratory failure, improved Possible mild pneumonia and COPD exacerbation. Improved with antibiotics and steroids and referred to shipmaster as an outpatient Diabetes mellitus Hypertension Hyperlipidemia Osteoarthritis Chronic pain in multiple joints including hips, knees and elbows Anxiety and depression, not an active issue Hospital course: This is a pleasant 69 years old male with past medical history of asthma/COPD, diabetes mellitus, GERD, hyponatremia, hyperlipidemia, hypertension, osteoarthritis. Chronic pain in hips/knees/elbows, anxiety and depression. He came to the hospital because of abnormal lab, he was recently discharged from the hospital where he had low sodium level, he went to see his PCP Dr. Jackson for post-hospitalization follow-up, he was asymptomatic he denies chest pain, no dyspnea, no confusion, no headache or weakness or numbness. His PCP called the police to bring him to the hospital for low sodium. patient states that he drinks a lot of fluids, he drinks more than half a gallon of iced tea every day. Patient counseled to restrict her fluids to 2 L per day as per patient preference is and nephrology recommendation. Patient got 1 dose of samsca, and his sodium improved from 123 upon admission 2 days ago to 132 today . The patient was cleared for discharge by revenue cycle consultant. Cymbalta was continued as it is felt it is unlikely contributing to patient's hyponatremia, and psychiatrist recommended to continue with Cymbalta otherwise he'll goes into significant depression, at this point benefits of the medication more than risks. Patient informed and he agrees. On the day of discharge patient remains asymptomatic Problems and management plan were discussed with the patient and he verbalized understanding and acceptance Patient was found stable and can be discharged home however he needs follow-up as an outpatient. Patient was instructed to follow up with PCP Dr. Jackson within one week and patient agrees. Patient states that he will call and make his own appointments. Patient was instructed to check his sodium is up with his doctor and he agrees. Also patient was instructed to follow up with shipmaster Dr. Jones in one week for his pneumonia and he agrees to call and make appointment. And he agrees with the appointments made for him with Dr. Mcmanus the revenue cycle consultant on 07/07. Gen: patient is a AAOx3, no distress CVS: S1-S2, RRR, no murmur Lungs: B/L CTA, no wheezing Abdomen: soft, no distention, no tenderness, positive bowel sounds Extremity: no leg edema or induration Time spent more than 35 minutes Patient Condition at Discharge: Serious Plan - Discharge Summary Discharge Rx Participant: No New Discharge Prescriptions: New Cefuroxime Axetil [Ceftin] 500 mg PO BID 3 Days #6 tab Azithromycin [Zithromax] 250 mg PO Q24H 3 Days #3 tab predniSONE 10 mg PO DIRECTED #18 tab Continue Potassium Chloride ER [K-Dur 20] 20 meq PO DAILY Omeprazole 20 mg PO DAILY metFORMIN HCL 500 mg PO AC-BID Albuterol Sulfate [Albuterol Sulfate Hfa] 2 puff INHALATION RT-Q4H PRN PRN Reason: Shortness Of Breath Or Wheezing Albuterol Nebulized [Ventolin Nebulized] 2.5 mg INHALATION RT-TID PRN PRN Reason: Wheezing DULoxetine HCL [Cymbalta] 60 mg PO DAILY 30 Days #30 capsule. Ipratropium-Albuterol Nebulize [Duoneb 0.5 mg-3 mg/3 ml Soln] 3 ml INHALATION RT-Q4H PRN 30 Days #90 ml PRN Reason: Shortness Of Breath Or Wheezing Nicotine 21Mg/24Hr Patch [Habitrol] 1 patch TRANSDERM DAILY #20 patch guaiFENesin [Mucinex] 600 mg PO Q12HR #20 tablet.er Theophylline 24 Hour [Teddy-24] 400 mg PO DAILY 30 Days #30 cap.er.24h diazePAM [Valium] 2 mg PO TID PRN #12 tab PRN Reason: Anxiety Hydrocodone/Acetaminophen [Kempton 10-325] 1 tab PO TID PRN PRN Reason: Pain Changed Metoprolol Tartrate [Lopressor] 25 mg PO BID #0 Discontinued Furosemide [Lasix] 40 mg PO BID@0900,1600 30 Days #60 tab amLODIPine [Norvasc] 10 mg PO DAILY 30 Days #30 tab Potassium Chloride ER [K-Dur 20] 20 meq PO ONCE PRN PRN Reason: LOW POTASSIUM PER PCP Discharge Medication List Albuterol Nebulized [Ventolin Nebulized] 2.5 mg INHALATION RT-TID PRN 05/08/20 [History] Albuterol Sulfate [Albuterol Sulfate Hfa] 2 puff INHALATION RT-Q4H PRN 05/08/20 [History] Omeprazole 20 mg PO DAILY 05/08/20 [History] Potassium Chloride ER [K-Dur 20] 20 meq PO DAILY 05/08/20 [History] metFORMIN HCL 500 mg PO AC-BID 05/08/20 [History] DULoxetine HCL [Cymbalta] 60 mg PO DAILY 30 Days #30 capsule.dr 05/16/20 [Rx] Ipratropium-Albuterol Nebulize [Duoneb 0.5 mg-3 mg/3 ml Soln] 3 ml INHALATION RT-Q4H PRN 30 Days #90 ml 05/16/20 [Rx] Nicotine 21Mg/24Hr Patch [Habitrol] 1 patch TRANSDERM DAILY #20 patch 05/16/20 [Rx] Theophylline 24 Hour [Teddy-24] 400 mg PO DAILY 30 Days #30 cap.er.24h 05/16/20 [Rx] diazePAM [Valium] 2 mg PO TID PRN #12 tab 05/16/20 [Rx] guaiFENesin [Mucinex] 600 mg PO Q12HR #20 tablet.er 05/16/20 [Rx] Hydrocodone/Acetaminophen [Kempton 10-325] 1 tab PO TID PRN 06/04/20 [History] Azithromycin [Zithromax] 250 mg PO Q24H 3 Days #3 tab 06/06/20 [Rx] Cefuroxime Axetil [Ceftin] 500 mg PO BID 3 Days #6 tab 06/06/20 [Rx] Metoprolol Tartrate [Lopressor] 25 mg PO BID #0 06/06/20 [Rx] predniSONE 10 mg PO DIRECTED #18 tab 06/06/20 [Rx] Follow up Appointment(s)/Referral(s): Tc Brady DO [STAFF PHYSICIAN] - 07/07/20 1:20 pm () Elver Jackson MD [Primary Care Provider] - 1-2 days (Office is closed - please call to schedule follow up appointment) Tang Jones MD [STAFF PHYSICIAN] - 1 Week (shipmaster for pneumonia ) Patient Instructions/Handouts: Hyponatremia (DC) Activity/Diet/Wound Care/Special Instructions: heart healthy diet , we recommend to restrict fluid intake to 2 liters per day activity is limited till you see your doctor Discharge Disposition: HOME SELF-CARE
--- NOTE | 2020-06-08 11:14 | CDI ---
Documentation Clarification Form Date: 06/08/20 From: Salome Maya Phone: If you have a question about this query, please contact Lela Pang [employer] Worker Supervisor at [phone] between 8am and 5pm. Admit Date: 06/04/20 Discharge Date:06/06/20 Patient Name: Olegario Villela Visit Number: [id number] ATTENTION: The Clinical Documentation Specialists (CDI) and [facility] Coding Staff appreciate your assistance in clarifying documentation. Please respond to the clarification below the line at the bottom and electronically sign. The CDI & [facility] Coding staff will review the response and follow-up if needed. Please note: Queries are made part of the Legal Health Record. If you have any questions, please contact the author of this message via ITS. Dear Dr. Geiger Your patient has a documented diagnosis of [acute hypoxic respiratory failure] - which may lack sufficient clinical evidence/support. History/Risk Factors: Hyponatremia, possible COPD exac, possible pneumonia Clinical Indicators: A little difficulty breathing, some dry cough Home oxygen: Was using home oxygen but patient states machine is no longer working Vital signs: T. 98.6, P. 106, R. 18, BP 144/66 Pulse Ox: 90% on 2 liters O2 per nasal cannula Lung/Breathing assessment: Decreased breath sounds per ED note. Chest is clear to auscultation, no wheezing or crackles per H&P documentation ABG: pH - 7.51, pO2 - 54, pCO2 - 49 Treatment: Breathing tx: Duoneb inhalation O2/Vent/Bipap: O2 2 l/min per nasal cannula Based on the clinical evidence and your professional judgment, do you feel [acute hypoxic respiratory failure] is a valid diagnosis? Yes, [acute hypoxic respiratory failure] present/active during this admission as evidence by (additional clinical support): No, [acute hypoxic respiratory failure] was ruled out. Other (please specify diagnosis) Unable to determine Patient had mild transient hypoxia, for example he was saturating 90% on 2 L oxygen, secondary to pneumonia and COPD. However it improved quickly so you can consider acute hypoxic respiratory failure rule out for documentation purpose MTDD
== END 2020-06-06 15:19 | disposition home or self-care (01) | DRG 640 ==
LOC: EC 18:10 → 3SCARD 20:29
PROVIDERS: ADMIT Internal Medicine; ATTEND Internal Medicine
DX: E87.1 Hypo-osmolality and hyponatremia (principal); J18.9 Pneumonia, unspecified organism; I50.32 Chronic diastolic (congestive) heart failure; J44.0 Chronic obstructive pulmonary disease with (acute) lower respiratory infection; J44.1 Chronic obstructive pulmonary disease with (acute) exacerbation; I27.20 Pulmonary hypertension, unspecified; I11.0 Hypertensive heart disease with heart failure; E11.9 Type 2 diabetes mellitus without complications; R09.02 Hypoxemia; D64.9 Anemia, unspecified; E66.9 Obesity, unspecified; E78.5 Hyperlipidemia, unspecified; E87.6 Hypokalemia; F32.9 Major depressive disorder, single episode, unspecified; F41.9 Anxiety disorder, unspecified; G89.29 Other chronic pain; M19.90 Unspecified osteoarthritis, unspecified site; T50.2X5A Adverse effect of carbonic-anhydrase inhibitors, benzothiadiazides and other diuretics, initial encounter; K21.9 Gastro-esophageal reflux disease without esophagitis; M25.552 Pain in left hip; M25.551 Pain in right hip; M25.562 Pain in left knee; M25.561 Pain in right knee; M25.522 Pain in left elbow; M25.521 Pain in right elbow; Z79.84 Long term (current) use of oral hypoglycemic drugs; Z79.899 Other long term (current) drug therapy; Z87.891 Personal history of nicotine dependence; Z90.49 Acquired absence of other specified parts of digestive tract; Z87.01 Personal history of pneumonia (recurrent); Z87.19 Personal history of other diseases of the digestive system; F10.11 Alcohol abuse, in remission; Z99.81 Dependence on supplemental oxygen; Z68.35 Body mass index [BMI] 35.0-35.9, adult; Z98.890 Other specified postprocedural states; Z88.1 Allergy status to other antibiotic agents; Z88.0 Allergy status to penicillin; Z91.81 History of falling; Z81.1 Family history of alcohol abuse and dependence
CPT/HCPCS: 36415; 36600; 71046; 80048; 80053; 81003; 82805; 83036; 83735; 83880; 83930; 83935; 84132; 84145; 84300; 85025; 85610; 85730; 87040; 93005; 93306; 94640; 96374; 99285

== ENCOUNTER 2020-07-07 13:53 | Inpatient (IN) | payer MEDICARE, OTHER ==
[2020-07-07] MEDS ORDERED: IPRATROPIUM-ALBUTEROL 3 ML NEB INHALATION STA ×2 (13:56→16:36)
[2020-07-07] MEDS ORDERED: SODIUM CHLORIDE 0.9% 1,000 ML IV STA (13:56)
[2020-07-07 14:44] LABS: Anisocytosis Slight; Basophils # (A) 0.1 k/uL (0-0.2); Basophils % (A) 1 %; Eosinophils # (A) 0.3 k/uL (0-0.7); Eosinophils % (A) 3 %; HCT 41.2 % (39.0-53.0); HGB 13.4 gm/dL (13.0-17.5); Lymphocytes # (A) 2.2 k/uL (1.0-4.8); Lymphocytes % (A) 22 %; MCHC 32.4 g/dL (31.0-37.0); Macrocytosis Slight; Mean Platelet Volume 7.4; Monocytes # (A) 0.8 k/uL (0-1.0); Monocytes % (A) 8 %; Neutrophils # (A) 6.3 k/uL (1.3-7.7); Neutrophils % (A) 64 %; Platelet Count 388 k/uL (150-450); RBC 4.31 m/uL (4.30-5.90); RDW 17.5 % (11.5-15.5); WBC 9.9 k/uL (3.8-10.6)
--- NOTE | 2020-07-07 14:44 | ED ---
SOB HPI - General Chief Complaint: Shortness of Breath Stated Complaint: SOB Time Seen by Provider: 07/07/20 13:56 Source: EMS, RN notes reviewed, old records reviewed Mode of arrival: EMS Limitations: no limitations - History of Present Illness Initial Comments: This is a 69-year-old male DF for evaluation patient presents today for evaluation regards to shortness of breath persistent shortness breath with cough or congestion no fevers no pain. Patient is nursing travel history or sick contacts. Denies that he has any fevers or coronavirus exposure MD Complaint: shortness of breath, cough -: days(s) Severity: moderate Severity scale (1-10): 4 Quality: aching, throbbing Consistency: constant Improves With: nothing Worsens With: exertion, movement Known History Of: COPD Context: recent URI, recent illness Associated Symptoms: denies other symptoms Treatments Prior to Arrival: none - Related Data Home Medications Medication Instructions Recorded Confirmed Albuterol Nebulized [Ventolin 2.5 mg INHALATION RT-TID PRN 05/08/20 06/04/20 Nebulized] Albuterol Sulfate [Albuterol 2 puff INHALATION RT-Q4H PRN 05/08/20 06/04/20 Sulfate Hfa] Omeprazole 20 mg PO DAILY 05/08/20 06/04/20 Potassium Chloride ER [K-Dur 20] 20 meq PO DAILY 05/08/20 06/04/20 metFORMIN HCL 500 mg PO AC-BID 05/08/20 06/04/20 Hydrocodone/Acetaminophen [[place] 1 tab PO TID PRN 06/04/20 06/04/20 10-325] Previous Rx's Medication Instructions Recorded DULoxetine HCL [Cymbalta] 60 mg PO DAILY 30 Days #30 05/16/20 capsule. Ipratropium-Albuterol Nebulize 3 ml INHALATION RT-Q4H PRN 30 Days 05/16/20 [Duoneb 0.5 mg-3 mg/3 ml Soln] #90 ml Nicotine 21Mg/24Hr Patch [Habitrol] 1 patch TRANSDERM DAILY #20 patch 05/16/20 Theophylline 24 Hour [Teddy-24] 400 mg PO DAILY 30 Days #30 05/16/20 cap.er.24h diazePAM [Valium] 2 mg PO TID PRN #12 tab 05/16/20 guaiFENesin [Mucinex] 600 mg PO Q12HR #20 tablet.er 05/16/20 Azithromycin [Zithromax] 250 mg PO Q24H 3 Days #3 tab 06/06/20 Cefuroxime Axetil [Ceftin] 500 mg PO BID 3 Days #6 tab 06/06/20 Metoprolol Tartrate [Lopressor] 25 mg PO BID #0 06/06/20 predniSONE 10 mg PO DIRECTED #18 tab 06/06/20 Allergies Allergy/AdvReac Type Severity Reaction Status Date / Time doxycycline Allergy Anaphylaxis Verified 07/07/20 14:02 Penicillins Allergy Unknown Verified 07/07/20 14:02 Review of Systems ROS Statement: Those systems with pertinent positive or pertinent negative responses have been documented in the HPI. ROS Other: All systems not noted in ROS Statement are negative. Past Medical History Past Medical History: Asthma, COPD, Diabetes Mellitus, GERD/Reflux, Hyp erlipidemia, Hypertension, Osteoarthritis (OA), Pneumonia Additional Past Medical History / Comment(s): Bronchitis, was using home oxygen but states machine is no longer working, chronic pain in hips/knees/elbows, falls, "borderline" diabetes, past ETOH abuse but states has not drank in 2 years. History of Any Multi-Drug Resistant Organisms: None Reported Past Surgical History: Appendectomy Additional Past Surgical History / Comment(s): Colonoscopy Past Anesthesia/Blood Transfusion Reactions: No Reported Reaction Past Psychological History: Anxiety, Depression Smoking Status: Former smoker Past Alcohol Use History: None Reported Past Drug Use History: None Reported - Past Family History Father Additional Family Medical History / Comment(s): Father was an alcoholic but was able to quit drinking Mother Additional Family Medical History / Comment(s): Mother was an alcoholic. General Exam Limitations: no limitations General appearance: alert, in no apparent distress Head exam: Present: atraumatic, normocephalic, normal inspection Eye exam: Present: normal appearance, PERRL, EOMI. Absent: scleral icterus, conjunctival injection, periorbital swelling ENT exam: Present: normal exam, mucous membranes moist Neck exam: Present: normal inspection. Absent: tenderness, meningismus, lymphadenopathy Respiratory exam: Present: respiratory distress, wheezes, accessory muscle use, decreased breath sounds, prolonged expiratory. Absent: rales, rhonchi, stridor Cardiovascular Exam: Present: normal rhythm, tachycardia, normal heart sounds. Absent: systolic murmur, diastolic murmur, rubs, gallop, clicks GI/Abdominal exam: Present: soft, normal bowel sounds. Absent: distended, tenderness, guarding, rebound, rigid Extremities exam: Present: normal inspection, full ROM, normal capillary refill. Absent: tenderness, pedal edema, joint swelling, calf tenderness Back exam: Present: normal inspection Neurological exam: Present: alert, oriented X3, CN II-XII intact Psychiatric exam: Present: normal affect, normal mood Skin exam: Present: warm, dry, intact, normal color. Absent: rash Course Vital Signs 07/07/20 07/07/20 07/07/20 14:02 14:23 14:38 Temperature 98.0 F Pulse Rate 114 H 112 H 116 H Respiratory 24 Rate Blood Pressure 140/79 O2 Sat by Pulse 92 L Oximetry 07/07/20 16:19 Temperature Pulse Rate 86 Respiratory 24 Rate Blood Pressure 136/89 O2 Sat by Pulse 95 Oximetry - Reevaluation(s) Reevaluation #1: 07/07/20 16:35 Medical records reviewed Reevaluation #2: 07/07/20 16:35 No improvement in symptoms Reevaluation #3: 07/07/20 16:35 Patient spoken with regarding results, questions answered [place] for continued breathing treatments and observation Medical Decision Making - Medical Decision Making 69 male DF for evaluation of shortness of breath patient will be admitted rule out pneumonia treatment of COPD exacerbation - Lab Data Result diagrams: 07/07/20 14:16 07/07/20 14:16 Lab Results 07/07/20 07/07/20 07/07/20 Range/Units 14:16 14:16 14:16 WBC 9.9 (3.8-10.6) k/uL RBC 4.31 (4.30-5.90) m/uL Hgb 13.4 (13.0-17.5) gm/dL Hct 41.2 (39.0-53.0) % MCV 95.6 D (80.0-100.0) fL MCH 31.0 (25.0-35.0) pg MCHC 32.4 (31.0-37.0) g/dL RDW 17.5 H (11.5-15.5) % Plt Count 388 (150-450) k/uL Neutrophils % 64 % Lymphocytes % 22 % Monocytes % 8 % Eosinophils % 3 % Basophils % 1 % Neutrophils # 6.3 (1.3-7.7) k/uL Lymphocytes # 2.2 (1.0-4.8) k/uL Monocytes # 0.8 (0-1.0) k/uL Eosinophils # 0.3 (0-0.7) k/uL Basophils # 0.1 (0-0.2) k/uL Manual Slide Review Performed Poikilocytosis (manual Present Anisocytosis Slight Macrocytosis Slight PT 9.8 (9.0-12.0) sec INR 0.9 (<1.2) APTT 22.1 (22.0-30.0) sec Sodium 130 L (137-145) mmol/L Potassium 3.8 (3.5-5.1) mmol/L Chloride 94 L (98-107) mmol/L Carbon Dioxide 28 (22-30) mmol/L Anion Gap 8 mmol/L BUN 8 L (9-20) mg/dL Creatinine 0.64 L (0.66-1.25) mg/dL Est GFR (CKD-EPI)AfAm >90 (>60 ml/min/1.73 sqM) Est GFR (CKD-EPI)NonAf >90 (>60 ml/min/1.73 sqM) Glucose 107 H (74-99) mg/dL Plasma Lactic Acid Wes (0.7-2.0) mmol/L Calcium 8.5 (8.4-10.2) mg/dL Total Bilirubin 0.7 (0.2-1.3) mg/dL AST 29 (17-59) U/L ALT 14 (4-49) U/L Alkaline Phosphatase 56 (38-126) U/L Creatine Kinase 54 L (55-170) U/L Troponin I (0.000-0.034) ng/mL Total Protein 6.1 L (6.3-8.2) g/dL Albumin 3.4 L (3.5-5.0) g/dL 07/07/20 07/07/20 Range/Units 14:16 14:16 WBC (3.8-10.6) k/uL RBC (4.30-5.90) m/uL Hgb (13.0-17.5) gm/dL Hct (39.0-53.0) % MCV (80.0-100.0) fL MCH (25.0-35.0) pg MCHC (31.0-37.0) g/dL RDW (11.5-15.5) % Plt Count (150-450) k/uL Neutrophils % % Lymphocytes % % Monocytes % % Eosinophils % % Basophils % % Neutrophils # (1.3-7.7) k/uL Lymphocytes # (1.0-4.8) k/uL Monocytes # (0-1.0) k/uL Eosinophils # (0-0.7) k/uL Basophils # (0-0.2) k/uL Manual Slide Review Poikilocytosis (manual Anisocytosis Macrocytosis PT (9.0-12.0) sec INR (<1.2) APTT (22.0-30.0) sec Sodium (137-145) mmol/L Potassium (3.5-5.1) mmol/L Chloride (98-107) mmol/L Carbon Dioxide (22-30) mmol/L Anion Gap mmol/L BUN (9-20) mg/dL Creatinine (0.66-1.25) mg/dL Est GFR (CKD-EPI)AfAm (>60 ml/min/1.73 sqM) Est GFR (CKD-EPI)NonAf (>60 ml/min/1.73 sqM) Glucose (74-99) mg/dL Plasma Lactic Acid Wes 2.0 (0.7-2.0) mmol/L Calcium (8.4-10.2) mg/dL Total Bilirubin (0.2-1.3) mg/dL AST (17-59) U/L ALT (4-49) U/L Alkaline Phosphatase (38-126) U/L Creatine Kinase (55-170) U/L Troponin I <0.012 (0.000-0.034) ng/mL Total Protein (6.3-8.2) g/dL Albumin (3.5-5.0) g/dL - Radiology Data Radiology results: report reviewed (Chest x-ray shows possible pneumonia), image reviewed Disposition Clinical Impression: Community acquired pneumonia, COPD exacerbation Disposition: ADMITTED IP TO THIS HOSP Condition: Good Is patient prescribed a controlled substance at d/c from ED?: No Referrals: Elver Jackson MD [Primary Care Provider] - 1-2 days
[2020-07-07 14:49] LABS: ALT 14 U/L (4-49); AST 29 U/L (17-59); African American GFR (CKD) >90 (>60 ml/min/1.73 sqM); Albumin 3.4 g/dL (3.5-5.0); Alkaline Phosphatase 56 U/L (38-126); Anion Gap 8 mmol/L; Blood Urea Nitrogen 8 mg/dL (9-20); Calcium 8.5 mg/dL (8.4-10.2); Carbon Dioxide 28 mmol/L (22-30); Chloride 94 mmol/L (98-107); Creatine Kinase 54 U/L (55-170); Glucose 107 mg/dL (74-99); MCV 95.6 fL (80.0-100.0); Non-African American GFR(CKD) >90 (>60 ml/min/1.73 sqM); Potassium 3.8 mmol/L (3.5-5.1); Sodium 130 mmol/L (137-145); Total Bilirubin 0.7 mg/dL (0.2-1.3); Total Protein 6.1 g/dL (6.3-8.2)
--- NOTE | 2020-07-07 14:55 | XR ---
EXAMINATION TYPE: XR chest 2V DATE OF EXAM: 07/07/2020 CLINICAL HISTORY: difficulty breathing. TECHNIQUE: Frontal and lateral view of the chest. COMPARISON: 06/05/20 chest radiograph FINDINGS: There is slightly of the hemidiaphragms and interstitial coarsening consistent with inters titial emphysematous change. The cardiomediastinal silhouette is within normal limits for size. Pulmo nary vasculature is normal. There is a focal airspace opacity over the right lung base. No pleural ef fusion, or pneumothorax seen. Degenerative changes of the shoulders. IMPRESSION: Emphysematous change. Focal airspace opacity over the right costophrenic angle may repre sent pneumonia or atelectasis.
[2020-07-07 14:56] LABS: INR 0.9 (<1.2); Partial Thromboplastin Time 22.1 sec (22.0-30.0); Prothrombin Time 9.8 sec (9.0-12.0)
[2020-07-07 15:09] LABS: Poikilocytosis (M) Present
[2020-07-07] MEDS ORDERED: methylPREDNISolone SOD SUCCI 125 MG/2 ML VIAL IV STA (16:32)
[2020-07-07] MEDS ORDERED: AZITHROMYCIN 500 MG in SODIUM CHLORIDE 0.9% 250 ML IVPB STA (16:36)
[2020-07-07] MEDS: IPRATROPIUM-ALBUTEROL 3 ML NEB INHALATION SCH (19:19)
[2020-07-07] MEDS: HYDROcodone/APAP 10-325MG 1 EACH TAB PO PRN (20:51)
[2020-07-07] MEDS: FUROSEMIDE 40 MG TAB PO SCH (20:51)
[2020-07-07] MEDS: BUPRENORPHINE HCL 300 MCG PO SCH (20:53)
[2020-07-08] MEDS: methylPREDNISolone SOD SUCCI 125 MG/2 ML VIAL IV SCH ×2 (01:37→06:17)
[2020-07-08] MEDS: HYDROcodone/APAP 10-325MG 1 EACH TAB PO PRN (06:24)
[2020-07-08] MEDS ORDERED: METOPROLOL TARTRATE 25 MG TAB PO SCH (07:30)
[2020-07-08] MEDS: IPRATROPIUM-ALBUTEROL 3 ML NEB INHALATION SCH ×4 (07:39→19:12)
[2020-07-08] MEDS: FUROSEMIDE 40 MG TAB PO SCH (07:47)
[2020-07-08] MEDS: BUPRENORPHINE HCL 300 MCG PO SCH ×2 (07:47→21:12)
[2020-07-08] MEDS: metFORMIN 500 MG TAB PO SCH ×2 (07:50→17:31)
[2020-07-08] MEDS: NICOTINE 21MG/24HR PATCH TRANSDERM SCH (07:50)
[2020-07-08] MEDS: DULoxetine HCL 60 MG CAPSULE.DR PO SCH (08:18)
[2020-07-08] MEDS: POTASSIUM CHLORIDE ER 20 MEQ TAB.ER PO SCH (08:18)
[2020-07-08] MEDS ORDERED: THEOPHYLLINE 24 HOUR 400 MG CAP.ER.24H PO SCH (09:00)
[2020-07-08] MEDS ORDERED: amLODIPine 10 MG TAB PO SCH (09:00)
[2020-07-08] MEDS: SPIRONOLACTONE 25 MG TAB PO SCH (12:12)
[2020-07-08] MEDS: FUROSEMIDE 10 MG/ML 4 ML VIAL IV SCH ×2 (12:13→21:12)
[2020-07-08] MEDS: APIXABAN 5 MG TAB PO SCH ×2 (12:13→21:12)
--- NOTE | 2020-07-08 12:17 | P.HPIM ---
History of Present Illness Patient is a pleasant 69-year-old male came in with complaints of cough without any significant sputum production patient does smoke a pack of cigarettes per day supposed to use oxygen at home doesn't use if she if he is feeling well. Patient is admitted for COPD exacerbation with systemic steroids although on exam patient doesn't have significant wheezing on exam patient does have significant bilateral pedal edema is presently volume overloaded patient had chronic diastolic dysfunction and normal ejection fraction the past. Patient is bit hyponatremic as well. Patient is presently in atrial fibrillation with rapid ventricular rate patient is presently on 2 L of oxygen. Patient metoprolol dose will be increased. Patient was never on anti-correlation patient will be started on Eliquis. Review of Systems REVIEW OF SYSTEMS: CONSTITUTIONAL: No fever, no malaise, no fatigue. HEENT: No recent visual problems or hearing problems. Denied any sore throat. CARDIOVASCULAR: No chest pain, no palpitations, no syncope. PULMONARY: no hemoptysis. GASTROINTESTINAL: No diarrhea, no nausea, no vomiting, no abdominal pain. NEUROLOGICAL: No headaches, no weakness, no numbness. HEMATOLOGICAL: Denies any bleeding or petechiae. GENITOURINARY: Denies any burning micturition, frequency, or urgency. MUSCULOSKELETAL/RHEUMATOLOGICAL: Denies any joint pain, swelling, or any muscle pain. ENDOCRINE: Denies any polyuria or polydipsia. The rest of the 14-point review of systems is negative. Past Medical History Past Medical History: Asthma, COPD, Diabetes Mellitus, GERD/Reflux, Hyperlipidemia, Hypertension, Osteoarthritis (OA), Pneumonia Additional Past Medical History / Comment(s): Bronchitis, was using home oxygen but states machine is no longer working, chronic pain in hips/knees/elbows, falls, "borderline" diabetes, past ETOH abuse but states has not drank in 2 years. History of Any Multi-Drug Resistant Organisms: None Reported Past Surgical History: Appendectomy Additional Past Surgical History / Comment(s): Colonoscopy Past Anesthesia/Blood Transfusion Reactions: No Reported Reaction Past Psychological History: Anxiety, Depression Additional Psychological History / Comment(s): Pt resides alone. He has a cane but currently is not using it. He has a nebulizer. He can drive. Pt states he has increased depression and in past week has thought of killing himself by using a shotgun/putting it in his mouth. Smoking Status: Former smoker Past Alcohol Use History: None Reported Additional Past Alcohol Use History / Comment(s): Pt started smoking in 1969 and smokes a ppd or alittle more. He states he has hx of ETOH abuse but has not drank in 2 years. Past Drug Use History: None Reported - Past Family History Father Additional Family Medical History / Comment(s): Father was an alcoholic but was able to quit drinking Mother Additional Family Medical History / Comment(s): Mother was an alcoholic. Medications and Allergies Home Medications Medication Instructions Recorded Confirmed Type Albuterol Nebulized [Ventolin 2.5 mg INHALATION RT-TID PRN 05/08/20 07/07/20 History Nebulized] Albuterol Sulfate [Albuterol 2 puff INHALATION RT-Q4H PRN 05/08/20 07/07/20 History Sulfate Hfa] Omeprazole 20 mg PO DAILY 05/08/20 07/07/20 History Potassium Chloride ER [K-Dur 20] 40 meq PO DAILY 05/08/20 07/07/20 History metFORMIN HCL 500 mg PO AC-BID 05/08/20 07/07/20 History DULoxetine HCL [Cymbalta] 60 mg PO DAILY 30 Days #30 05/16/20 07/07/20 Rx capsule. Ipratropium-Albuterol Nebulize 3 ml INHALATION RT-Q4H PRN 30 Days 05/16/20 07/07/20 Rx [Duoneb 0.5 mg-3 mg/3 ml Soln] #90 ml Nicotine 21Mg/24Hr Patch [Habitrol] 1 patch TRANSDERM DAILY #20 patch 05/16/20 07/07/20 Rx Theophylline 24 Hour [Teddy-24] 400 mg PO DAILY 30 Days #30 05/16/20 07/07/20 Rx cap.er.24h Hydrocodone/Acetaminophen [[place] 1 tab PO TID PRN 06/04/20 07/07/20 History 10-325] Buprenorphine HCl [[place]] 300 mcg PO BID 07/07/20 07/07/20 History Furosemide [Lasix] 40 mg PO BID 07/07/20 07/07/20 History Metoprolol Tartrate [Lopressor] 25 mg PO BID-W/MEALS 07/07/20 07/07/20 History amLODIPine [Norvasc] 10 mg PO DAILY 07/07/20 07/07/20 History Allergies Allergy/AdvReac Type Severity Reaction Status Date / Time doxycycline Allergy Anaphylaxis Verified 07/07/20 18:06 Penicillins Allergy Unknown Verified 07/07/20 18:06 Physical Exam Vitals: Vital Signs Temp Pulse Pulse Resp BP BP Pulse Ox 07/08/20 11:00 112 H 07/08/20 10:50 108 H 07/08/20 07:52 120 H 07/08/20 07:44 98.6 F 116 H 22 119/79 98 07/08/20 07:40 120 H 07/08/20 03:00 97.6 F 107 H 20 126/84 95 07/07/20 20:35 98.2 F 109 H 20 137/68 94 L 07/07/20 19:33 102 H 07/07/20 19:19 104 H 97 07/07/20 17:47 88 18 141/76 99 07/07/20 16:19 86 24 136/89 95 07/07/20 14:38 116 H 07/07/20 14:23 112 H 07/07/20 14:02 98.0 F 114 H 24 140/79 92 L Intake and Output 07/07/20 07/08/20 07/08/20 22:59 06:59 14:59 Intake Total 300 Balance 300 Intake: Oral 300 Other: Voiding Method Toilet Toilet Toilet # Voids 1 1 Weight 108.862 kg PHYSICAL EXAMINATION: GENERAL: The patient is alert and oriented x3, not in any acute distress. Well developed, well nourished. HEENT: Pupils are round and equally reacting to light. EOMI. No scleral icterus. No conjunctival pallor. Normocephalic, atraumatic. No pharyngeal erythema. No thyromegaly. CARDIOVASCULAR: S1 and S2 present. No murmurs, rubs, or gallops. Unable to assess for JVD because of his neck contour PULMONARY: No significant wheezing on exam fairly good air entry into bilateral lung mclaughlin there is very minimal wheezing in the lower lung bases. ABDOMEN: Soft, nontender, nondistended, normoactive bowel sounds. No palpable organomegaly. MUSCULOSKELETAL: No joint swelling or deformity. EXTREMITIES: No cyanosis, clubbing, does have 2+ pitting pedal edema in both extremities NEUROLOGICAL: Gross neurological examination did not reveal any focal deficits. SKIN: No rashes. Results CBC & Chem 7: 07/07/20 14:16 07/07/20 14:16 Labs: Abnormal Lab Results - Last 24 Hours (Table) 07/07/20 07/07/20 07/08/20 Range/Units 14:16 14:16 11:21 RDW 17.5 H (11.5-15.5) % Sodium 130 L (137-145) mmol/L Chloride 94 L (98-107) mmol/L BUN 8 L (9-20) mg/dL Creatinine 0.64 L (0.66-1.25) mg/dL Glucose 107 H (74-99) mg/dL Magnesium 1.3 L (1.6-2.3) mg/dL Creatine Kinase 54 L (55-170) U/L Total Protein 6.1 L (6.3-8.2) g/dL Albumin 3.4 L (3.5-5.0) g/dL Thrombosis Risk Factor Assmnt - Choose All That Apply Each Factor Represents 1 point: Abnormal pulmonary function (COPD), Obesity (BMI >25), Serious lung disease incl. pneumonia (< 1month), Swollen legs (current) Other Risk Factors: Yes Each Risk Factor Represents 2 Points: Age 61-74 years Thrombosis Risk Factor Assessment Total Risk Factor Score: 6 Thrombosis Risk Factor Assessment Level: High Risk Assessment and Plan Plan: - shortness of breath: Probably mild COPD exacerbation along with the CHF exacerbation chronic diastolic dysfunction with acute exacerbation. Patient will be started on Lasix patient will not require any systemic steroids, IV steroids will discontinue and patient was started on inhaled steroids and inhalational treatments, BNP will be obtained Rocephin will be discontinued and as there is no clinical evidence of pneumonia. Chest x-ray was read as possibly of pneumonia patient probably has mild atelectasis azithromycin will be continued. -Atrial fibrillation with rapid ventricular rate: Patient's beta marla dose will be increased and patient will be started on Eliquis -Low possibility of pneumonia patient probably has bronchitis continue with azithromycin discontinue Rocephin -Possible chronic diastolic dysfunction with mild acute exacerbation -COPD exacerbation -Hyponatremia: Hypervolemic hyponatremia patient was started on IV Lasix will recheck the sodium tomorrow. Patient does have significant pedal edema, which is probably secondary to diastolic dysfunction with acute exacerbation of right- sided heart failure patient had moderate pulmonary hypertension. -Nicotine abuse: Cessation counseling was provided -Hypertension next and-hyperlipoidemia -Gastroesophageal reflux disease -Type 2 diabetes mellitus -Depression
--- NOTE | 2020-07-08 12:56 | P.CRDCN ---
History of Present Illness Consult date: 07/08/20 History of present illness: CHIEF COMPLAINT: Afib HISTORY OF PRESENT ILLNESS: This is a 69-year old male with a past medical history significant for COPD, hyperlipidemia, hypertension, and diabetes mellitus. 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 We have been asked to see the patient in consultation for atrial fibrillation. Patient examined at the bedside. Patient states he has been feeling short of breath for the past couple days. He also reports increased swelling to his lower extremities. He denies fever, chills, or cough. He currently denies chest pain or pressure. EKG completed reveals atrial fibrillation. Patient was hospitalized in May and EKG at that time also showed atrial fibrillation. Patient was started on metoprolol. He was not started on anticoagulation at that time but the reason is not known. DIAGNOSTICS: EKG reveals atrial fibrillation. No acute ischemic changes Chest xray emphysematous changes. Focal airspace opacity over the right costophrenic angle may represent pneumonia or atelectasis Laboratory data: W BC 9.9. Hemoglobin 13.4. Platelet count 388. Sodium 1:30. Potassium 3.8. BUN 8. Creatinine 0.64. Troponin negative 1. BNP 1100. Current home cardiac medications include metoprolol 25 mg twice a day, Lasix 40 mg twice a day, Norvasc 10 mg daily Echocardiogram completed in May 2020 reveals ejection fraction between 50 and 55%, trace to mild mitral regurgitation, mild tricuspid regurgitation REVIEW OF SYSTEMS: At the time of my exam: CONSTITUTIONAL: Denies fever or chills. HEENT: Denies blurred vision, vision changes, or eye pain. Denies hemoptysis CARDIOVASCULAR: Denies chest pain, orthopnea, PND or palpitations RESPIRATORY: Reports shortness of breath. GASTROINTESTINAL: Denies abdominal pain. Denies nausea or vomiting. HEMATOLOGIC: Denies bleeding disorders. GENITOURINARY: Denies any blood in urine. SKIN: Denies pruitis. Denies rash. PHYSICAL EXAM: VITAL SIGNS: Reviewed. GENERAL: Well-developed in no acute distress. HEENT: Head is normocephalic. Pupils are equal, round. Sclerae anicteric. Mucous membranes of the mouth are moist. Neck supple. No JVD or thyromegaly LUNGS: Respirations even and unlabored. Lungs with rales to bilateral bases and slight expiratory wheezing HEART: Irregular rate and rhythm. S1 and S2 heard. ABDOMEN: Soft. Nondistended. Nontender. EXTREMITIES: Normal range of motion. No clubbing or cyanosis. Peripheral pulses intact. 2+ bilateral lower extremity edema NEUROLOGIC: Awake and alert. Oriented x 3. ASSESSMENT: Paroxysmal atrial fibrillation with RVR Acute exacerbation of chronic diastolic congestive heart failure Chronic obstructive pulmonary disease Heart pulmonary hypertension Hypertension Hyperlipidemia Nicotine dependence PLAN: Resume home cardiac medications No need to repeat echocardiogram as this was just performed in May 2020 Patient was started on IV Lasix 40 mg every 12 hours per medicine. Agreeable to continue IV Lasix Begin Aldactone 12.5 mg daily Monitor kidney function Daily weights Accurate I&O Continue telemetry monitoring. Patient's metoprolol has been increased to 50 mg twice a day Patient has been started on Eliquis 5mg PO BID. Case management consulted for insurance copay. Nurse practitioner note has been reviewed by physician. Signing provider agrees with the documented findings, assessment, and plan of care. Past Medical History Past Medical History: Asthma, COPD, Diabetes Mellitus, GERD/Reflux, Hyperlipidemia, Hypertension, Osteoarthritis (OA), Pneumonia Additional Past Medical History / Comment(s): Bronchitis, was using home oxygen but states machine is no longer working, chronic pain in hips/knees/elbows, falls, "borderline" diabetes, past ETOH abuse but states has not drank in 2 years. History of Any Multi-Drug Resistant Organisms: None Reported Past Surgical History: Appendectomy Additional Past Surgical History / Comment(s): Colonoscopy Past Anesthesia/Blood Transfusion Reactions: No Reported Reaction Past Psychological History: Anxiety, Depression Additional Psychological History / Comment(s): Pt resides alone. He has a cane but currently is not using it. He has a nebulizer. He can drive. Pt states he has increased depression and in past week has thought of killing himself by using a shotgun/putting it in his mouth. Smoking Status: Former smoker Past Alcohol Use History: None Reported Additional Past Alcohol Use History / Comment(s): Pt started smoking in 1969 and smokes a ppd or alittle more. He states he has hx of ETOH abuse but has not drank in 2 years. Past Drug Use History: None Reported - Past Family History Father Additional Family Medical History / Comment(s): Father was an alcoholic but was able to quit drinking Mother Additional Family Medical History / Comment(s): Mother was an alcoholic. Medications and Allergies Home Medications Medication Instructions Recorded Confirmed Type Albuterol Nebulized [Ventolin 2.5 mg INHALATION RT-TID PRN 05/08/20 07/07/20 History Nebulized] Albuterol Sulfate [Albuterol 2 puff INHALATION RT-Q4H PRN 05/08/20 07/07/20 History Sulfate Hfa] Omeprazole 20 mg PO DAILY 05/08/20 07/07/20 History Potassium Chloride ER [K-Dur 20] 40 meq PO DAILY 05/08/20 07/07/20 History metFORMIN HCL 500 mg PO AC-BID 05/08/20 07/07/20 History DULoxetine HCL [Cymbalta] 60 mg PO DAILY 30 Days #30 05/16/20 07/07/20 Rx capsule. Ipratropium-Albuterol Nebulize 3 ml INHALATION RT-Q4H PRN 30 Days 05/16/20 07/07/20 Rx [Duoneb 0.5 mg-3 mg/3 ml Soln] #90 ml Nicotine 21Mg/24Hr Patch [Habitrol] 1 patch TRANSDERM DAILY #20 patch 05/16/20 07/07/20 Rx Theophylline 24 Hour [Teddy-24] 400 mg PO DAILY 30 Days #30 05/16/20 07/07/20 Rx cap.er.24h Hydrocodone/Acetaminophen [Clio 1 tab PO TID PRN 06/04/20 07/07/20 History 10-325] Buprenorphine HCl [Belbuca] 300 mcg PO BID 07/07/20 07/07/20 History Furosemide [Lasix] 40 mg PO BID 07/07/20 07/07/20 History Metoprolol Tartrate [Lopressor] 25 mg PO BID-W/MEALS 07/07/20 07/07/20 History amLODIPine [Norvasc] 10 mg PO DAILY 07/07/20 07/07/20 History Allergies Allergy/AdvReac Type Severity Reaction Status Date / Time doxycycline Allergy Anaphylaxis Verified 07/07/20 18:06 Penicillins Allergy Unknown Verified 07/07/20 18:06 Physical Exam Vitals: Vital Signs Temp Pulse Pulse Resp BP BP Pulse Ox 07/08/20 11:00 112 H 07/08/20 10:50 108 H 07/08/20 07:52 120 H 07/08/20 07:44 98.6 F 116 H 22 119/79 98 07/08/20 07:40 120 H 07/08/20 03:00 97.6 F 107 H 20 126/84 95 07/07/20 20:35 98.2 F 109 H 20 137/68 94 L 07/07/20 19:33 102 H 07/07/20 19:19 104 H 97 07/07/20 17:47 88 18 141/76 99 07/07/20 16:19 86 24 136/89 95 07/07/20 14:38 116 H 07/07/20 14:23 112 H 07/07/20 14:02 98.0 F 114 H 24 140/79 92 L Intake and Output 07/07/20 07/08/20 07/08/20 22:59 06:59 14:59 Intake Total 300 Balance 300 Intake: Oral 300 Other: Voiding Method Toilet Toilet Toilet # Voids 1 1 Weight 108.862 kg Results 07/07/20 14:16 07/07/20 14:16 Cardiac Enzymes 07/07/20 07/07/20 Range/Units 14:16 14:16 AST 29 (17-59) U/L Troponin I <0.012 (0.000-0.034) ng/mL Coagulation 07/07/20 Range/Units 14:16 PT 9.8 (9.0-12.0) sec APTT 22.1 (22.0-30.0) sec CBC 07/07/20 Range/Units 14:16 WBC 9.9 (3.8-10.6) k/uL RBC 4.31 (4.30-5.90) m/uL Hgb 13.4 (13.0-17.5) gm/dL Hct 41.2 (39.0-53.0) % Plt Count 388 (150-450) k/uL Comprehensive Metabolic Panel 07/07/20 Range/Units 14:16 Sodium 130 L (137-145) mmol/L Potassium 3.8 (3.5-5.1) mmol/L Chloride 94 L (98-107) mmol/L Carbon Dioxide 28 (22-30) mmol/L BUN 8 L (9-20) mg/dL Creatinine 0.64 L (0.66-1.25) mg/dL Glucose 107 H (74-99) mg/dL Calcium 8.5 (8.4-10.2) mg/dL AST 29 (17-59) U/L ALT 14 (4-49) U/L Alkaline Phosphatase 56 (38-126) U/L Total Protein 6.1 L (6.3-8.2) g/dL Albumin 3.4 L (3.5-5.0) g/dL Current Medications Generic Name Dose Route Start Last Admin Trade Name Freq PRN Reason Stop Dose Admin Hydrocodone Bitart/Acetaminophen 1 each 07/07/20 18:45 07/08/20 06:24 Hydrocodone/Apap 10-325mg 1 Each Tab PO 1 each BID PRN Administration Pain Albuterol/Ipratropium 3 ml 07/07/20 20:00 07/08/20 10:49 Ipratropium-Albuterol 3 Ml Neb INHALATION 3 ml RT-QID ALESSIO Administration Apixaban 5 mg 07/08/20 11:15 Apixaban 5 Mg Tab PO BID ALESSIO Budesonide 0.5 mg 07/08/20 20:00 Budesonide 0.5 Mg/2 Ml Nebu INHALATION RT-BID ALESSIO Duloxetine HCl 60 mg 07/08/20 09:00 07/08/20 08:18 Duloxetine Hcl 60 Mg Capsule.Dr PO 60 mg DAILY ALESSIO Administration Furosemide 40 mg 07/08/20 11:15 Furosemide 10 Mg/Ml 4 Ml Vial IV Q12HR ALESSIO Azithromycin 500 mg/ Sodium 250 mls @ 250 mls/hr 07/08/20 16:00 Chloride IVPB DAILY@1600 [facility] Ceftriaxone Sodium 2 gm/ 50 mls @ 100 mls/hr 07/08/20 09:00 07/08/20 08:18 Sodium Chloride IVPB 100 mls/hr Q24HR ALESSIO Administration Metformin HCl 500 mg 07/08/20 07:30 07/08/20 07:50 Metformin 500 Mg Tab PO 500 mg AC-BID ALESSIO Administration Metoprolol Tartrate 50 mg 07/08/20 17:30 Metoprolol Tartrate 50 Mg Tab PO BID-W/MEALS ALESSIO Nicotine 1 patch 07/08/20 09:00 07/08/20 07:50 Nicotine 21mg/24hr Patch TRANSDERM 1 patch DAILY ALESSIO Administration Non-Formulary Medication 300 mcg 07/07/20 21:00 10/27/20 07:47 Buprenorphine Hcl [Belbuca] PO Not Given BID ALESSIO Potassium Chloride 40 meq 07/08/20 09:00 07/08/20 08:18 Potassium Chloride Er 20 Meq Tab.Er PO 40 meq DAILY ALESSIO Administration Intake and Output 07/07/20 07/08/20 07/08/20 22:59 06:59 14:59 Intake Total 300 Balance 300 Intake: Oral 300 Other: Voiding Method Toilet Toilet Toilet # Voids 1 1 Weight 108.862 kg 07/07/20 14:16 07/07/20 14:16
[2020-07-08] MEDS: MAGNESIUM SULFATE-D5W PMX 1 GM in DEXTROSE/WATER 1 100ML.BAG IVPB SCH ×2 (13:35→16:08)
[2020-07-08] MEDS: HYDROcodone/APAP 10-325MG 1 EACH TAB PO SCH ×2 (17:30→22:15)
[2020-07-08] MEDS: AZITHROMYCIN 500 MG in SODIUM CHLORIDE 0.9% 250 ML IVPB SCH (17:31)
[2020-07-08] MEDS: METOPROLOL TARTRATE 50 MG TAB PO SCH (17:31)
[2020-07-08] MEDS: BUDESONIDE 0.5 MG/2 ML NEBU INHALATION SCH (19:12)
[2020-07-09] MEDS ORDERED: IPRATROPIUM-ALBUTEROL 3 ML NEB INHALATION PRN (00:11)
[2020-07-09 06:16] LABS: Glucose,Whole Blood 156 mg/dL (75-99)
[2020-07-09 06:49] LABS: Anisocytosis Slight; HCT 35.8 % (39.0-53.0); HGB 11.6 gm/dL (13.0-17.5); MCH 30.8 pg (25.0-35.0); MCHC 32.3 g/dL (31.0-37.0); MCV 95.5 fL (80.0-100.0); Mean Platelet Volume 6.5; Platelet Count 370 k/uL (150-450); RBC 3.75 m/uL (4.30-5.90); RDW 16.9 % (11.5-15.5); WBC 12.5 k/uL (3.8-10.6)
[2020-07-09 06:56] LABS: African American GFR (CKD) >90 (>60 ml/min/1.73 sqM); Anion Gap 6 mmol/L; Blood Urea Nitrogen 11 mg/dL (9-20); Calcium 8.2 mg/dL (8.4-10.2); Carbon Dioxide 28 mmol/L (22-30); Chloride 94 mmol/L (98-107); Glucose 157 mg/dL (74-99); Non-African American GFR(CKD) >90 (>60 ml/min/1.73 sqM); Potassium 3.4 mmol/L (3.5-5.1); Sodium 128 mmol/L (137-145)
[2020-07-09] MEDS: BUDESONIDE 0.5 MG/2 ML NEBU INHALATION SCH ×2 (08:13→19:14)
[2020-07-09] MEDS: IPRATROPIUM-ALBUTEROL 3 ML NEB INHALATION SCH ×4 (08:13→19:14)
[2020-07-09] MEDS: APIXABAN 5 MG TAB PO SCH ×2 (08:17→21:02)
[2020-07-09] MEDS: POTASSIUM CHLORIDE ER 20 MEQ TAB.ER PO SCH (08:17)
[2020-07-09] MEDS: metFORMIN 500 MG TAB PO SCH ×2 (08:17→17:21)
[2020-07-09] MEDS: NICOTINE 21MG/24HR PATCH TRANSDERM SCH (08:17)
[2020-07-09] MEDS: HYDROcodone/APAP 10-325MG 1 EACH TAB PO SCH ×3 (08:18→21:02)
[2020-07-09] MEDS: FUROSEMIDE 10 MG/ML 4 ML VIAL IV SCH ×2 (08:18→21:01)
[2020-07-09] MEDS: SPIRONOLACTONE 25 MG TAB PO SCH (08:18)
[2020-07-09] MEDS: DULoxetine HCL 60 MG CAPSULE.DR PO SCH (08:18)
[2020-07-09] MEDS: METOPROLOL TARTRATE 50 MG TAB PO SCH ×2 (08:18→17:21)
[2020-07-09] MEDS: BUPRENORPHINE HCL 300 MCG PO SCH ×2 (08:18→21:04)
[2020-07-09] MEDS ORDERED: amLODIPine 5 MG TAB PO SCH (09:00)
[2020-07-09 11:28] LABS: Glucose,Whole Blood 166 mg/dL (75-99)
[2020-07-09] MEDS ORDERED: POTASSIUM CHLORIDE ER 20 MEQ TAB.ER PO STA (12:17)
--- NOTE | 2020-07-09 12:19 | P.PN ---
Subjective Progress Note Date: 07/09/20 CHIEF COMPLAINT: Afib HISTORY OF PRESENT ILLNESS: Patient examined at the bedside. He continues to report shortness of breath but states it is getting better. He is currently receiving a breathing treatment. Patient remains on IV Lasix. He reports he is urinating frequently. He continues to have lower extremity edema but it is really improved from yesterday. He remains in atrial fibrillation. Heart rate 90s to low 100s. PHYSICAL EXAM: VITAL SIGNS: Reviewed. GENERAL: Well-developed in no acute distress. HEENT: Head is normocephalic. Pupils are equal, round. Sclerae anicteric. Mucous membranes of the mouth are moist. Neck supple. No JVD or thyromegaly LUNGS: Respirations even and unlabored. Lungs with expiratory wheezing noted. HEART: Irregular rate and rhythm. S1 and S2 heard. ABDOMEN: Soft. Nondistended. Nontender. EXTREMITIES: Normal range of motion. No clubbing or cyanosis. Peripheral pulses intact. 2+ bilateral lower extremity edema NEUROLOGIC: Awake and alert. Oriented x 3. ASSESSMENT: Paroxysmal atrial fibrillation with RVR Acute exacerbation of chronic diastolic congestive heart failure Chronic obstructive pulmonary disease Heart pulmonary hypertension Hypertension Hyperlipidemia Nicotine dependence Hyponatremia Hypokalemia PLAN: Continue IV Lasix 40 mg every 12 hours Increase Aldactone to [address] patient on 2 L fluid restrictions Monitor kidney function Daily weights Accurate I&O Continue to monitor patient's heart rate. Continue current dose of metoprolol at this time Continue anticoagulation in the form of Eliquis Replace potassium Nurse practitioner note has been reviewed by physician. Signing provider agrees with the documented findings, assessment, and plan of care. Objective - Vital Signs Vital signs: Vital Signs Temp 97.8 F 07/09/20 08:11 Pulse 108 H 07/09/20 11:52 Resp 14 07/09/20 08:11 BP 116/59 07/09/20 08:11 Pulse Ox 95 07/09/20 08:21 Intake & Output 07/08/20 07/09/20 07/09/20 18:59 06:59 18:59 Intake Total 300 Balance 300 Weight 108 kg Intake: Oral 300 Other: Voiding Method Toilet Toilet # Voids 1 - Labs CBC & Chem 7: 07/09/20 06:28 07/09/20 06:28 Labs: Abnormal Lab Results - Last 24 Hours (Table) 07/09/20 07/09/20 07/09/20 Range/Units 06:15 06:28 06:28 WBC 12.5 H (3.8-10.6) k/uL RBC 3.75 L (4.30-5.90) m/uL Hgb 11.6 L (13.0-17.5) gm/dL Hct 35.8 L (39.0-53.0) % RDW 16.9 H (11.5-15.5) % Sodium 128 L (137-145) mmol/L Potassium 3.4 L (3.5-5.1) mmol/L Chloride 94 L (98-107) mmol/L Glucose 157 H (74-99) mg/dL POC Glucose (mg/dL) 156 H (75-99) mg/dL Calcium 8.2 L (8.4-10.2) mg/dL 07/09/20 Range/Units 11:27 WBC (3.8-10.6) k/uL RBC (4.30-5.90) m/uL Hgb (13.0-17.5) gm/dL Hct (39.0-53.0) % RDW (11.5-15.5) % Sodium (137-145) mmol/L Potassium (3.5-5.1) mmol/L Chloride (98-107) mmol/L Glucose (74-99) mg/dL POC Glucose (mg/dL) 166 H (75-99) mg/dL Calcium (8.4-10.2) mg/dL Microbiology - Last 24 Hours (Table) 07/07/20 18:08 Blood Culture - Preliminary Blood No Growth after 24 hours
[2020-07-09] MEDS: MAGNESIUM SULFATE-D5W PMX 1 GM in DEXTROSE/WATER 1 100ML.BAG IVPB SCH ×2 (13:01→14:39)
[2020-07-09] MEDS: AZITHROMYCIN 500 MG in SODIUM CHLORIDE 0.9% 250 ML IVPB SCH (15:59)
[2020-07-09 17:08] LABS: Glucose,Whole Blood 126 mg/dL (75-99)
[2020-07-09] MEDS ORDERED: MAGNESIUM SULFATE-D5W PMX 1 GM in DEXTROSE/WATER 1 100ML.BAG IVPB SCH (20:00)
[2020-07-09] MEDS ORDERED: ALPRAZolam 0.5 MG TAB PO STA (20:06)
[2020-07-09] MEDS: MELATONIN 5 MG TABLET PO SCH (21:02)
[2020-07-09 21:18] LABS: Glucose,Whole Blood 140 mg/dL (75-99)
--- NOTE | 2020-07-09 23:50 | P.PN ---
Subjective Progress Note Date: 07/09/20 Principal diagnosis: Paroxysmal atrial fibrillation with RVR Acute exacerbation of chronic diastolic congestive heart failure Chronic obstructive pulmonary disease Patient is a 69-year-old male was admitted to hospital due to acute CHF exacerbation and atrial fibrillation with rapid regular rate.. 07/09/2020 Patient is currently sitting in the chair still complaining of shortness of breath and exertional dyspnea. Significant swelling of the bilateral lower extremities. Patient is being continued on IV Lasix. Patient remaining atrial fibrillation. No complaints of chest pain.Laboratory data showed sodium 128, potassium 3.4 and chloride 94 Magnesium was 1.3 and BNP 1100 Cardiology is following. Current medications reviewed. Objective - Vital Signs Vital signs: Vital Signs Temp 98.0 F 07/09/20 14:43 Pulse 100 07/09/20 16:04 Resp 14 07/09/20 16:04 BP 144/70 07/09/20 14:43 Pulse Ox 93 L 07/09/20 14:43 Intake & Output 07/08/20 07/09/20 07/09/20 18:59 06:59 18:59 Intake Total 300 Balance 300 Weight 108 kg Intake: Oral 300 Other: Voiding Method Toilet Toilet # Voids 1 - Exam PHYSICAL EXAMINATION: Patient is lying in the bed comfortably, no acute distress, awake alert and oriented.. HEENT: Normocephalic. Neck is supple. Pupils reactive. Nostrils clear. Oral cavity is moist. Ears reveal no drainage. Neck reveals no JVD, carotid bruits, or thyromegaly. CHEST EXAMINATION: Trachea is central. Symmetrical expansion.Bilateral diffuse wheezing and diminished bibasilar sounds CARDIAC: Normal S1, S2 with no gallops. No murmurs ABDOMEN: Soft. Bowel sounds normal. No organomegaly. No abdominal bruits. Extremities: 2+ pedal edema. No clubbing or cyanosis Neurologically awake, alert, oriented x3 with well-coordinated movements. No focal deficits noted Skin: No rash or skin lesions. Psychiatric: Coperative. Nonsuicidal Musculoskeletal: No joint swelling or deformity. Normal range of motion. - Labs CBC & Chem 7: 07/09/20 06:28 07/09/20 06:28 Labs: Abnormal Lab Results - Last 24 Hours (Table) 07/09/20 07/09/20 07/09/20 Range/Units 06:15 06:28 06:28 WBC 12.5 H (3.8-10.6) k/uL RBC 3.75 L (4.30-5.90) m/uL Hgb 11.6 L (13.0-17.5) gm/dL Hct 35.8 L (39.0-53.0) % RDW 16.9 H (11.5-15.5) % Sodium 128 L (137-145) mmol/L Potassium 3.4 L (3.5-5.1) mmol/L Chloride 94 L (98-107) mmol/L Glucose 157 H (74-99) mg/dL POC Glucose (mg/dL) 156 H (75-99) mg/dL Calcium 8.2 L (8.4-10.2) mg/dL 07/09/20 07/09/20 Range/Units 11:27 17:06 WBC (3.8-10.6) k/uL RBC (4.30-5.90) m/uL Hgb (13.0-17.5) gm/dL Hct (39.0-53.0) % RDW (11.5-15.5) % Sodium (137-145) mmol/L Potassium (3.5-5.1) mmol/L Chloride (98-107) mmol/L Glucose (74-99) mg/dL POC Glucose (mg/dL) 166 H 126 H (75-99) mg/dL Calcium (8.4-10.2) mg/dL Microbiology - Last 24 Hours (Table) 07/07/20 18:08 Blood Culture - Preliminary Blood No Growth after 24 hours Assessment and Plan Assessment: - shortness of breath: Probably mild COPD exacerbation along with acute CHF exacerbation on chronic diastolic dysfunction with acute exacerbation. Patient will be continued on Lasix patient. patient was started on inhaled steroids and inhalational treatments, BNP will be obtained Rocephin will be discontinued and as there is no clinical evidence of pneumonia. Chest x-ray was read as possibly of pneumonia patient probably has mild atelectasis azithromycin will be continued. added prednisone 40mg daily -Atrial fibrillation with rapid ventricular rate: Patient is on beta marla dose and on Eliquis - Hypokalemia and hypomagnesemia. Replaced. -Low possibility of pneumonia patient probably has bronchitis continue with azithromycin discontinue Rocephin -Possible chronic diastolic dysfunction with mild acute exacerbation -COPD exacerbation -Hyponatremia: Hypervolemic hyponatremia patient was started on IV Lasix will recheck the sodium tomorrow. Patient does have significant pedal edema, which is probably secondary to diastolic dysfunction with acute exacerbation of right- sided heart failure patient had moderate pulmonary hypertension. -Nicotine abuse: Cessation counseling was provided -Hypertension next and-hyperlipoidemia -Gastroesophageal reflux disease -Type 2 diabetes mellitus -Depression Time with Patient: Greater than 30
[2020-07-10 06:31] LABS: Glucose,Whole Blood 106 mg/dL (75-99)
[2020-07-10] MEDS: MAGNESIUM SULFATE-D5W PMX 1 GM in DEXTROSE/WATER 1 100ML.BAG IVPB SCH ×2 (07:03→07:04)
[2020-07-10 07:11] LABS: Anisocytosis Slight; Basophils # (A) 0.1 k/uL (0-0.2); Basophils % (A) 1 %; Eosinophils # (A) 0.1 k/uL (0-0.7); Eosinophils % (A) 1 %; HCT 38.7 % (39.0-53.0); HGB 12.5 gm/dL (13.0-17.5); Hypochromasia Slight; Lymphocytes # (A) 1.7 k/uL (1.0-4.8); Lymphocytes % (A) 20 %; MCH 31.3 pg (25.0-35.0); MCHC 32.2 g/dL (31.0-37.0); Macrocytosis Slight; Mean Platelet Volume 6.3; Monocytes # (A) 0.7 k/uL (0-1.0); Monocytes % (A) 8 %; Neutrophils # (A) 5.8 k/uL (1.3-7.7); Neutrophils % (A) 69 %; Platelet Count 361 k/uL (150-450); RBC 3.99 m/uL (4.30-5.90); RDW 16.8 % (11.5-15.5); WBC 8.4 k/uL (3.8-10.6)
[2020-07-10 07:29] LABS: African American GFR (CKD) >90 (>60 ml/min/1.73 sqM); Anion Gap 5 mmol/L; Blood Urea Nitrogen 12 mg/dL (9-20); Calcium 8.2 mg/dL (8.4-10.2); Carbon Dioxide 29 mmol/L (22-30); Chloride 96 mmol/L (98-107); Glucose 100 mg/dL (74-99); Magnesium 1.9 mg/dL (1.6-2.3); Non-African American GFR(CKD) >90 (>60 ml/min/1.73 sqM); Potassium 3.8 mmol/L (3.5-5.1); Sodium 130 mmol/L (137-145)
[2020-07-10] MEDS: NICOTINE 21MG/24HR PATCH TRANSDERM SCH (08:14)
[2020-07-10] MEDS: DULoxetine HCL 60 MG CAPSULE.DR PO SCH (08:14)
[2020-07-10] MEDS: SPIRONOLACTONE 25 MG TAB PO SCH (08:14)
[2020-07-10] MEDS: POTASSIUM CHLORIDE ER 20 MEQ TAB.ER PO SCH (08:14)
[2020-07-10] MEDS: FUROSEMIDE 10 MG/ML 4 ML VIAL IV SCH ×2 (08:15→20:41)
[2020-07-10] MEDS: METOPROLOL TARTRATE 50 MG TAB PO SCH ×2 (08:15→16:32)
[2020-07-10] MEDS: APIXABAN 5 MG TAB PO SCH ×2 (08:15→20:40)
[2020-07-10] MEDS: HYDROcodone/APAP 10-325MG 1 EACH TAB PO SCH ×3 (08:15→20:40)
[2020-07-10] MEDS: BUPRENORPHINE HCL 300 MCG PO SCH ×2 (08:16→20:29)
[2020-07-10] MEDS: metFORMIN 500 MG TAB PO SCH ×2 (08:16→16:32)
[2020-07-10] MEDS: IPRATROPIUM-ALBUTEROL 3 ML NEB INHALATION SCH ×4 (08:20→19:08)
[2020-07-10] MEDS: BUDESONIDE 0.5 MG/2 ML NEBU INHALATION SCH ×2 (08:20→19:08)
--- NOTE | 2020-07-10 08:50 | XR ---
EXAMINATION TYPE: XR chest 1V DATE OF EXAM: 07/10/2020 COMPARISON: 07/07/2020 HISTORY: 69 year-old male shortness of breath TECHNIQUE: Single frontal view of the chest is obtained. FINDINGS: Heart borderline in size. Hyperinflation. Some patchy peripheral densities in the right mi dlung and patchy bibasilar opacities persist. No sizable effusion. IMPRESSION: COPD with some patchy peripheral and basilar densities which appear increased from prior. Correlate f or CHF with early atypical pulmonary edema, multifocal pneumonia, or atypical pneumonias.
[2020-07-10] MEDS ORDERED: bisacodyL 5 MG TABLET.DR PO PRN (11:21)
[2020-07-10 11:33] LABS: Glucose,Whole Blood 103 mg/dL (75-99)
--- NOTE | 2020-07-10 12:22 | P.PN ---
Subjective Progress Note Date: 07/10/20 CHIEF COMPLAINT: Afib HISTORY OF PRESENT ILLNESS: Patient examined at the bedside. Patient states his shortness of breath has improved today. He denies chest pain or pressure. He is complaining of constipation. He remains on IV Lasix 40 mg IV every 12 hours. Urine output has not been documented in EMR, the patient states he is urinating frequently. Creatinine 0.69 today. Sodium 1:30. PHYSICAL EXAM: VITAL SIGNS: Reviewed. GENERAL: Well-developed in no acute distress. HEENT: Head is normocephalic. Pupils are equal, round. Sclerae anicteric. Mucous membranes of the mouth are moist. Neck supple. No JVD or thyromegaly LUNGS: Respirations even and unlabored. Lungs diminished. HEART: Irregular rate and rhythm. S1 and S2 heard. ABDOMEN: Soft. Nondistended. Nontender. EXTREMITIES: Normal range of motion. No clubbing or cyanosis. Peripheral pulses intact. 1-2+ bilateral lower extremity edema NEUROLOGIC: Awake and alert. Oriented x 3. ASSESSMENT: Paroxysmal atrial fibrillation with RVR Acute exacerbation of chronic diastolic congestive heart failure, EF 50-55% Chronic obstructive pulmonary disease Moderate pulmonary hypertension Hypertension Hyperlipidemia Nicotine dependence Hyponatremia Hypokalemia PLAN: Continue IV Lasix 40 mg every 12 hours Continue Aldactone 25 mg daily Monitor kidney function Daily weights Accurate I&O Continue to monitor patient's heart rate. Continue current dose of metoprolol at this time Continue anticoagulation in the form of Eliquis Nurse practitioner note has been reviewed by physician. Signing provider agrees with the documented findings, assessment, and plan of care. Objective - Vital Signs Vital signs: Vital Signs Temp 97.4 F L 07/10/20 08:11 Pulse 95 07/10/20 11:26 Resp 14 07/10/20 08:13 BP 144/74 07/10/20 08:11 Pulse Ox 96 07/10/20 08:20 Intake & Output 07/09/20 07/10/20 07/10/20 18:59 06:59 18:59 Other: Voiding Method Toilet Toilet - Labs CBC & Chem 7: 07/10/20 06:56 07/10/20 06:56 Labs: Abnormal Lab Results - Last 24 Hours (Table) 07/09/20 07/09/20 07/10/20 Range/Units 17:06 21:16 06:28 RBC (4.30-5.90) m/uL Hgb (13.0-17.5) gm/dL Hct (39.0-53.0) % RDW (11.5-15.5) % Sodium (137-145) mmol/L Chloride (98-107) mmol/L Glucose (74-99) mg/dL POC Glucose (mg/dL) 126 H 140 H 106 H (75-99) mg/dL Calcium (8.4-10.2) mg/dL 07/10/20 07/10/20 07/10/20 Range/Units 06:56 06:56 11:31 RBC 3.99 L (4.30-5.90) m/uL Hgb 12.5 L (13.0-17.5) gm/dL Hct 38.7 L (39.0-53.0) % RDW 16.8 H (11.5-15.5) % Sodium 130 L (137-145) mmol/L Chloride 96 L (98-107) mmol/L Glucose 100 H (74-99) mg/dL POC Glucose (mg/dL) 103 H (75-99) mg/dL Calcium 8.2 L (8.4-10.2) mg/dL Microbiology - Last 24 Hours (Table) 07/07/20 18:08 Blood Culture - Preliminary Blood No Growth after 48 hours
[2020-07-10] MEDS: predniSONE 20 MG TAB PO SCH (16:33)
[2020-07-10] MEDS: AZITHROMYCIN 500 MG TAB PO SCH (16:34)
[2020-07-10 17:17] LABS: Glucose,Whole Blood 107 mg/dL (75-99)
[2020-07-10] MEDS: diazePAM 5 MG TAB PO PRN (17:51)
[2020-07-10] MEDS: MELATONIN 5 MG TABLET PO SCH (20:40)
[2020-07-10 20:43] LABS: Glucose,Whole Blood 145 mg/dL (75-99)
[2020-07-11 06:19] LABS: Glucose,Whole Blood 129 mg/dL (75-99)
[2020-07-11] MEDS: metFORMIN 500 MG TAB PO SCH ×2 (06:20→16:38)
[2020-07-11] MEDS: METOPROLOL TARTRATE 50 MG TAB PO SCH ×2 (06:20→16:38)
[2020-07-11] MEDS: HYDROcodone/APAP 10-325MG 1 EACH TAB PO SCH ×3 (06:22→20:23)
[2020-07-11 07:01] LABS: Anisocytosis Slight; Basophils % (A) 0 %; Eosinophils # (A) 0.1 k/uL (0-0.7); Eosinophils % (A) 0 %; HCT 40.6 % (39.0-53.0); Lymphocytes # (A) 1.6 k/uL (1.0-4.8); Lymphocytes % (A) 14 %; MCH 30.8 pg (25.0-35.0); MCHC 32.1 g/dL (31.0-37.0); Mean Platelet Volume 6.4; Monocytes # (A) 0.8 k/uL (0-1.0); Monocytes % (A) 7 %; Neutrophils # (A) 8.6 k/uL (1.3-7.7); Neutrophils % (A) 77 %; Platelet Count 380 k/uL (150-450); RBC 4.23 m/uL (4.30-5.90); RDW 16.5 % (11.5-15.5); WBC 11.1 k/uL (3.8-10.6)
[2020-07-11 07:10] LABS: African American GFR (CKD) >90 (>60 ml/min/1.73 sqM); Anion Gap 6 mmol/L; Blood Urea Nitrogen 15 mg/dL (9-20); Calcium 8.8 mg/dL (8.4-10.2); Carbon Dioxide 30 mmol/L (22-30); Chloride 95 mmol/L (98-107); Glucose 121 mg/dL (74-99); Non-African American GFR(CKD) >90 (>60 ml/min/1.73 sqM); Potassium 4.4 mmol/L (3.5-5.1); Sodium 131 mmol/L (137-145)
[2020-07-11] MEDS: BUDESONIDE 0.5 MG/2 ML NEBU INHALATION SCH ×2 (08:54→21:05)
[2020-07-11] MEDS: IPRATROPIUM-ALBUTEROL 3 ML NEB INHALATION SCH ×4 (08:54→21:05)
[2020-07-11] MEDS: POTASSIUM CHLORIDE ER 20 MEQ TAB.ER PO SCH (09:15)
[2020-07-11] MEDS: SPIRONOLACTONE 25 MG TAB PO SCH (09:15)
[2020-07-11] MEDS: DULoxetine HCL 60 MG CAPSULE.DR PO SCH (09:15)
[2020-07-11] MEDS: FUROSEMIDE 10 MG/ML 4 ML VIAL IV SCH ×2 (09:16→20:23)
[2020-07-11] MEDS: APIXABAN 5 MG TAB PO SCH ×2 (09:16→20:23)
[2020-07-11] MEDS: AZITHROMYCIN 500 MG TAB PO SCH (09:16)
[2020-07-11] MEDS: NICOTINE 21MG/24HR PATCH TRANSDERM SCH (09:16)
[2020-07-11] MEDS: BUPRENORPHINE HCL 300 MCG PO SCH ×2 (09:16→19:52)
[2020-07-11] MEDS: predniSONE 20 MG TAB PO SCH (09:16)
[2020-07-11 11:47] LABS: Glucose,Whole Blood 112 mg/dL (75-99)
--- NOTE | 2020-07-11 12:26 | P.PN ---
Subjective Progress Note Date: 07/11/20 this is a 69-year-old gentleman with history of nicotine dependence, COPD,diabetes, hypertension, hyperlipidemia, GERD, chronic pain, history of prior EtOH use but he has not drank for several years.the patient initially presented to the hospital with shortness of breath and swelling in his lower extremities. A cardiology consultation was requested, patient was seen by Dr. Zapien for atrial fibrillation and congestive cardiac failure. Patient was initiated on IV diuretics. Overall he's been diuresing well.an echocardiogram with Doppler study was performed which revealed an ejection fraction of 50- 55%.chest x-ray performed today showed COPD with some patchy peripheral and basal densities which appear to be increased from prior. Correlate for CHF with early atypical pulmonary edema, multifocal pneumonia or atypical pneumonia .blood pressure this morning 125/70 with a heart rate in the 90s, 99% on room air.White blood cell count 11.1, Hemoccult and 13, platelet count 380.sodium 131, potassium 4.4, BUN 15, creatinine 0.7. Patient's weight is down a kilograms today, he's been diuresing well over the night last night. Objective - Vital Signs Vital signs: Vital Signs Temp 98.3 F 07/11/20 03:00 Pulse 87 07/11/20 11:56 Resp 24 07/11/20 08:00 BP 125/70 07/11/20 08:00 Pulse Ox 93 L 07/11/20 08:57 Intake & Output 07/10/20 07/11/20 07/11/20 18:59 06:59 18:59 Intake Total 236 240 Output Total 400 2350 Balance -164 -2350 240 Weight 122.5 kg 121.2 kg Intake: Oral 236 240 Output: Urine 400 2350 Other: Voiding Method Toilet Toilet - Exam PHYSICAL EXAMINATION: GENERAL:69-year-old gentleman in no acute distress at the time of my examination HEENT: Head is atraumatic, normocephalic. Pupils equal, round. Sclera anicteric. Conjunctiva are clear. Mucous membranes of the mouth are moist. Neck is supple. There is no elevated jugular venous pressure.no carotid bruit is heard. HEART EXAMINATION: [Heart S1, S2 irregularly irregular. No murmur or gallop heard.] CHEST EXAMINATION:[ Lungs reveal diminished air entry to the bases bilaterally, rales heard bilaterally to the bases ABDOMEN: [ Soft,obese, nontender. Bowel sounds are heard. No organomegaly noted]. EXTREMITIES:[ 2+ peripheral pulses with 2+ evidence of peripheral edema , evidence of a chronic venous stasis. Patient does have a black area on his third toe, right foot NEUROLOGIC [patient is awake, alert and oriented 3 . - Labs CBC & Chem 7: 07/11/20 06:34 07/11/20 06:34 Labs: Abnormal Lab Results - Last 24 Hours (Table) 07/10/20 07/10/20 07/11/20 Range/Units 17:10 20:42 06:18 WBC (3.8-10.6) k/uL RBC (4.30-5.90) m/uL RDW (11.5-15.5) % Neutrophils # (1.3-7.7) k/uL Sodium (137-145) mmol/L Chloride (98-107) mmol/L Glucose (74-99) mg/dL POC Glucose (mg/dL) 107 H 145 H 129 H (75-99) mg/dL 07/11/20 07/11/20 07/11/20 Range/Units 06:34 06:34 11:42 WBC 11.1 H (3.8-10.6) k/uL RBC 4.23 L (4.30-5.90) m/uL RDW 16.5 H (11.5-15.5) % Neutrophils # 8.6 H (1.3-7.7) k/uL Sodium 131 L (137-145) mmol/L Chloride 95 L (98-107) mmol/L Glucose 121 H (74-99) mg/dL POC Glucose (mg/dL) 112 H (75-99) mg/dL Microbiology - Last 24 Hours (Table) 07/07/20 18:08 Blood Culture - Preliminary Blood No Growth after 72 hours Assessment and Plan Plan: assessment and plan #1 diastolic congestive heart failure acute on chronic #2 COPD with home O2 use #3 hypertension #4 diabetes #5 hyperlipidemia #6 nicotine dependence #7 paroxysmal atrial fibrillation, on Eliquis for anticoagulation Plan We will continue current dose of IV Lasix.continue metoprololVickie milligrams one tablet by mouth twice a day, increase Aldactone to 50 mg daily, decrease potassium to 20 mg once daily. Check lytes BUN creatinine and daily weights.We will also check a TSH level. DNP note has been reviewed, I agree with a documented findings and plan of care. Patient was seen and examined.
[2020-07-11] MEDS: diazePAM 5 MG TAB PO PRN (16:38)
[2020-07-11 17:22] LABS: Glucose,Whole Blood 204 mg/dL (75-99)
[2020-07-11 19:56] LABS: Glucose,Whole Blood 191 mg/dL (75-99)
[2020-07-11] MEDS: MELATONIN 5 MG TABLET PO SCH (20:23)
--- NOTE | 2020-07-11 23:49 | P.PN ---
Subjective Progress Note Date: 07/10/20 Principal diagnosis: Paroxysmal atrial fibrillation with RVR Acute exacerbation of chronic diastolic congestive heart failure Chronic obstructive pulmonary disease Patient is a 69-year-old male was admitted to hospital due to acute CHF exacerbation and atrial fibrillation with rapid regular rate.. 07/09/2020 Patient is currently sitting in the chair still complaining of shortness of breath and exertional dyspnea. Significant swelling of the bilateral lower extremities. Patient is being continued on IV Lasix. Patient remaining atrial fibrillation. No complaints of chest pain.Laboratory data showed sodium 128, potassium 3.4 and chloride 94 Magnesium was 1.3 and BNP 1100 Cardiology is following. 07/10/2020 Patient is currently sitting in the chair still having exertional dyspnea and at rest. Leg swelling is improved very minimally. Patient is being continued on IV Lasix 40 mg every 12. Patient was wheezing on examination and was started on prednisone 40 mg daily for 5 days. Sodium level improved to 130 today. Magnesium 1.9 Hemoglobin 12.5 and WBC 8.4 and platelets 361 patient has been afebrile. Cardiology is on board. Continued on Aldactone 25 mg daily as well. Current medications reviewed. Objective - Vital Signs Vital signs: Vital Signs Temp 98.1 F 07/10/20 12:50 Pulse 96 07/10/20 19:18 Resp 18 07/10/20 12:50 BP 131/72 07/10/20 12:50 Pulse Ox 92 L 07/10/20 12:50 Intake & Output 07/10/20 07/10/20 07/11/20 06:59 18:59 06:59 Intake Total 236 Output Total 400 Balance -164 Weight 122.5 kg Intake: Oral 236 Output: Urine 400 Other: Voiding Method Toilet Toilet - Exam PHYSICAL EXAMINATION: Patient is lying in the bed comfortably, no acute distress, awake alert and oriented.. HEENT: Normocephalic. Neck is supple. Pupils reactive. Nostrils clear. Oral cavity is moist. Ears reveal no drainage. Neck reveals no JVD, carotid bruits, or thyromegaly. CHEST EXAMINATION: Trachea is central. Symmetrical expansion.Bilateral diffuse wheezing and diminished bibasilar sounds CARDIAC: Normal S1, S2 with no gallops. No murmurs ABDOMEN: Soft. Bowel sounds normal. No organomegaly. No abdominal bruits. Extremities: 2+ pedal edema. No clubbing or cyanosis Neurologically awake, alert, oriented x3 with well-coordinated movements. No focal deficits noted Skin: No rash or skin lesions. Psychiatric: Coperative. Nonsuicidal Musculoskeletal: No joint swelling or deformity. Normal range of motion. - Labs CBC & Chem 7: 07/11/20 06:34 07/11/20 06:34 Labs: Abnormal Lab Results - Last 24 Hours (Table) 07/09/20 07/10/20 07/10/20 Range/Units 21:16 06:28 06:56 RBC (4.30-5.90) m/uL Hgb (13.0-17.5) gm/dL Hct (39.0-53.0) % RDW (11.5-15.5) % Sodium 130 L (137-145) mmol/L Chloride 96 L (98-107) mmol/L Glucose 100 H (74-99) mg/dL POC Glucose (mg/dL) 140 H 106 H (75-99) mg/dL Calcium 8.2 L (8.4-10.2) mg/dL 07/10/20 07/10/20 07/10/20 Range/Units 06:56 11:31 17:10 RBC 3.99 L (4.30-5.90) m/uL Hgb 12.5 L (13.0-17.5) gm/dL Hct 38.7 L (39.0-53.0) % RDW 16.8 H (11.5-15.5) % Sodium (137-145) mmol/L Chloride (98-107) mmol/L Glucose (74-99) mg/dL POC Glucose (mg/dL) 103 H 107 H (75-99) mg/dL Calcium (8.4-10.2) mg/dL 07/10/20 Range/Units 20:42 RBC (4.30-5.90) m/uL Hgb (13.0-17.5) gm/dL Hct (39.0-53.0) % RDW (11.5-15.5) % Sodium (137-145) mmol/L Chloride (98-107) mmol/L Glucose (74-99) mg/dL POC Glucose (mg/dL) 145 H (75-99) mg/dL Calcium (8.4-10.2) mg/dL Microbiology - Last 24 Hours (Table) 07/07/20 18:08 Blood Culture - Preliminary Blood No Growth after 72 hours Assessment and Plan Assessment: - shortness of breath: Probably mild COPD exacerbation along with acute CHF exacerbation on chronic diastolic dysfunction with acute exacerbation. Patient will be continued on Lasix patient. patient was started on inhaled steroids and inhalational treatments, BNP will be obtained Rocephin will be discontinued and as there is no clinical evidence of pneumonia. Chest x-ray was read as possibly of pneumonia patient probably has mild atelectasis azithromycin will be continued. added prednisone 40mg daily -Atrial fibrillation with rapid ventricular rate: Patient is on beta marla dose and on Eliquis - Hypokalemia and hypomagnesemia. Replaced. -Low possibility of pneumonia patient probably has bronchitis continue with azithromycin discontinue Rocephin -Possible chronic diastolic dysfunction with mild acute exacerbation -COPD exacerbation -Hyponatremia: Hypervolemic hyponatremia patient was started on IV Lasix will recheck the sodium tomorrow. Patient does have significant pedal edema, which is probably secondary to diastolic dysfunction with acute exacerbation of right- sided heart failure patient had moderate pulmonary hypertension. -Nicotine abuse: Cessation counseling was provided -Hypertension next and-hyperlipoidemia -Gastroesophageal reflux disease -Type 2 diabetes mellitus -Depression Time with Patient: Greater than 30
--- NOTE | 2020-07-11 23:51 | P.PN ---
Subjective Progress Note Date: 07/11/20 Principal diagnosis: Paroxysmal atrial fibrillation with RVR Acute exacerbation of chronic diastolic congestive heart failure Chronic obstructive pulmonary disease Patient is a 69-year-old male was admitted to hospital due to acute CHF exacerbation and atrial fibrillation with rapid regular rate.. 07/09/2020 Patient is currently sitting in the chair still complaining of shortness of breath and exertional dyspnea. Significant swelling of the bilateral lower extremities. Patient is being continued on IV Lasix. Patient remaining atrial fibrillation. No complaints of chest pain.Laboratory data showed sodium 128, potassium 3.4 and chloride 94 Magnesium was 1.3 and BNP 1100 Cardiology is following. 07/10/2020 Patient is currently sitting in the chair still having exertional dyspnea and at rest. Leg swelling is improved very minimally. Patient is being continued on IV Lasix 40 mg every 12. Patient was wheezing on examination and was started on prednisone 40 mg daily for 5 days. Sodium level improved to 130 today. Magnesium 1.9 Hemoglobin 12.5 and WBC 8.4 and platelets 361 patient has been afebrile. Cardiology is on board. Continued on Aldactone 25 mg daily as well. 07/11/2020 Patient is currently sitting in the chair comfortably. Still having bilateral lower extremity leg swelling which is improving. Currently being continued on IV Lasix and Aldactone. Breathing status is improved today. Bilateral air entry is also improved. 2D echocardiogram showed ejection fraction 50 to 12%. Chest x-ray showed COPD with patchy peripheral and basilar densities which appear increased from prior. Correlate for CHF with fairly atypical pulmonary edema, multifocal pneumonia or atypical pneumonia. Laboratory data showed WBC 11.1, hemoglobin 13.0 and platelets 380 Sodium 131, chloride 95, TSH 1.6 blood sugar is controlled. No chest pain. No nausea vomiting abdominal pain or diarrhea. Complete review of systems negative except as above Current medications reviewed. Current medications reviewed. Objective - Vital Signs Vital signs: Vital Signs Temp 98.3 F 07/11/20 19:30 Pulse 92 07/11/20 21:20 Resp 18 07/11/20 20:00 BP 126/79 07/11/20 19:30 Pulse Ox 94 L 07/11/20 19:30 Intake & Output 07/11/20 07/11/20 07/12/20 06:59 18:59 06:59 Intake Total 698 Output Total 2350 1100 Balance -2350 -402 Weight 121.2 kg Intake: Oral 698 Output: Urine 2350 1100 Other: Voiding Method Toilet Toilet # Voids 1 - Exam PHYSICAL EXAMINATION: Patient is lying in the bed comfortably, no acute distress, awake alert and oriented.. HEENT: Normocephalic. Neck is supple. Pupils reactive. Nostrils clear. Oral cavity is moist. Ears reveal no drainage. Neck reveals no JVD, carotid bruits, or thyromegaly. CHEST EXAMINATION: Trachea is central. Symmetrical expansion.Bilateral diffuse w heezing and diminished bibasilar sounds CARDIAC: Normal S1, S2 with no gallops. No murmurs ABDOMEN: Soft. Bowel sounds normal. No organomegaly. No abdominal bruits. Extremities: 2+ pedal edema. No clubbing or cyanosis Neurologically awake, alert, oriented x3 with well-coordinated movements. No f ocal deficits noted Skin: No rash or skin lesions. Psychiatric: Coperative. Nonsuicidal Musculoskeletal: No joint swelling or deformity. Normal range of motion. - Labs CBC & Chem 7: 07/11/20 06:34 07/11/20 06:34 Labs: Abnormal Lab Results - Last 24 Hours (Table) 07/11/20 07/11/20 07/11/20 Range/Units 06:18 06:34 06:34 WBC 11.1 H (3.8-10.6) k/uL RBC 4.23 L (4.30-5.90) m/uL RDW 16.5 H (11.5-15.5) % Neutrophils # 8.6 H (1.3-7.7) k/uL Sodium 131 L (137-145) mmol/L Chloride 95 L (98-107) mmol/L Glucose 121 H (74-99) mg/dL POC Glucose (mg/dL) 129 H (75-99) mg/dL 07/11/20 07/11/20 07/11/20 Range/Units 11:42 17:18 19:54 WBC (3.8-10.6) k/uL RBC (4.30-5.90) m/uL RDW (11.5-15.5) % Neutrophils # (1.3-7.7) k/uL Sodium (137-145) mmol/L Chloride (98-107) mmol/L Glucose (74-99) mg/dL POC Glucose (mg/dL) 112 H 204 H 191 H (75-99) mg/dL Microbiology - Last 24 Hours (Table) 07/07/20 18:08 Blood Culture - Preliminary Blood No Growth after 96 hours Assessment and Plan Assessment: - shortness of breath: Probably mild COPD exacerbation along with acute CHF exacerbation on chronic diastolic dysfunction with acute exacerbation. Patient will be continued on Lasix patient. patient was started on inhaled steroids and inhalational treatments, BNP will be obtained Rocephin will be discontinued and as there is no clinical evidence of pneumonia. Chest x-ray was read as possibly of pneumonia patient probably has mild atelectasis azithromycin will be continued. added prednisone 40mg daily -Atrial fibrillation with rapid ventricular rate: Patient is on beta marla dose and on Eliquis - Hypokalemia and hypomagnesemia. Replaced. -Low possibility of pneumonia patient probably has bronchitis continue with azithromycin discontinue Rocephin -Possible chronic diastolic dysfunction with mild acute exacerbation -COPD exacerbation -Hyponatremia: Hypervolemic hyponatremia patient was started on IV Lasix will recheck the sodium tomorrow. Patient does have significant pedal edema, which is probably secondary to diastolic dysfunction with acute exacerbation of right- sided heart failure patient had moderate pulmonary hypertension. -Nicotine abuse: Cessation counseling was provided -Hypertension next and-hyperlipoidemia -Gastroesophageal reflux disease -Type 2 diabetes mellitus -Depression Time with Patient: Greater than 30
[2020-07-12 06:11] LABS: Glucose,Whole Blood 110 mg/dL (75-99)
[2020-07-12] MEDS: HYDROcodone/APAP 10-325MG 1 EACH TAB PO SCH ×3 (06:18→20:43)
[2020-07-12] MEDS: METOPROLOL TARTRATE 50 MG TAB PO SCH ×2 (06:19→16:13)
[2020-07-12] MEDS: metFORMIN 500 MG TAB PO SCH ×2 (06:19→16:13)
[2020-07-12] MEDS: BUDESONIDE 0.5 MG/2 ML NEBU INHALATION SCH ×2 (07:54→19:00)
[2020-07-12] MEDS: IPRATROPIUM-ALBUTEROL 3 ML NEB INHALATION SCH ×4 (07:54→18:58)
[2020-07-12 08:33] LABS: African American GFR (CKD) >90 (>60 ml/min/1.73 sqM); Anion Gap 3 mmol/L; Blood Urea Nitrogen 17 mg/dL (9-20); Carbon Dioxide 34 mmol/L (22-30); Chloride 95 mmol/L (98-107); Glucose 102 mg/dL (74-99); Non-African American GFR(CKD) 90 (>60 ml/min/1.73 sqM); Potassium 4.3 mmol/L (3.5-5.1); Sodium 132 mmol/L (137-145)
[2020-07-12] MEDS: predniSONE 20 MG TAB PO SCH (10:32)
[2020-07-12] MEDS: AZITHROMYCIN 500 MG TAB PO SCH (10:32)
[2020-07-12] MEDS: POTASSIUM CHLORIDE ER 20 MEQ TAB.ER PO SCH (10:32)
[2020-07-12] MEDS: DULoxetine HCL 60 MG CAPSULE.DR PO SCH (10:32)
[2020-07-12] MEDS: APIXABAN 5 MG TAB PO SCH ×2 (10:32→20:44)
[2020-07-12] MEDS: SPIRONOLACTONE 25 MG TAB PO SCH (10:32)
[2020-07-12] MEDS: NICOTINE 21MG/24HR PATCH TRANSDERM SCH (10:32)
[2020-07-12] MEDS: BUPRENORPHINE HCL 300 MCG PO SCH ×2 (10:34→20:47)
[2020-07-12] MEDS: FUROSEMIDE 10 MG/ML 4 ML VIAL IV SCH ×2 (10:34→20:44)
[2020-07-12 11:53] LABS: Glucose,Whole Blood 80 mg/dL (75-99)
--- NOTE | 2020-07-12 13:41 | P.PN ---
Subjective Progress Note Date: 07/12/20 this is a 69-year-old gentleman with history of nicotine dependence, COPD,diabetes, hypertension, hyperlipidemia, GERD, chronic pain, history of prior EtOH use but he has not drank for several years.the patient initially presented to the hospital with shortness of breath and swelling in his lower extremities. A cardiology consultation was requested, patient was seen by Dr. Zapien for atrial fibrillation and congestive cardiac failure. Patient was initiated on IV diuretics. Overall he's been diuresing well.an echocardiogram with Doppler study was performed which revealed an ejection fraction of 50- 55%.chest x-ray performed today showed COPD with some patchy peripheral and basal densities which appear to be increased from prior. Correlate for CHF with early atypical pulmonary edema, multifocal pneumonia or atypical pneumonia .blood pressure this morning 125/70 with a heart rate in the 90s, 99% on room air.White blood cell count 11.1, Hemoccult and 13, platelet count 380.sodium 131, potassium 4.4, BUN 15, creatinine 0.7. Patient's weight is down a kilograms today, he's been diuresing well over the night last night. 07/11: Patient is currently on Lasix 40 mg IV every 12 hours and has been diuresing well. Weight is down 2 kg. Potassium today of 4.3. Patient states he has walked to the door and also to the bathroom and denies shortness of breath. He continues to have lower extremity edema. TSH is 1.6. Objective - Vital Signs Vital signs: Vital Signs Temp 98 F 07/11/20 23:46 Pulse 90 07/12/20 08:08 Resp 18 07/11/20 23:46 BP 124/78 07/11/20 23:46 Pulse Ox 94 L 07/11/20 23:46 Intake & Output 07/11/20 07/12/20 07/12/20 18:59 06:59 18:59 Intake Total 698 Output Total 1100 1800 Balance -402 -1800 Weight 120.1 kg Intake: Oral 698 Output: Urine 1100 1800 Other: Voiding Method Toilet # Voids 1 1 - Exam PHYSICAL EXAMINATION: GENERAL:69-year-old gentleman in no acute distress while resting in chair at the time of my examination HEENT: Head is atraumatic, normocephalic. Pupils equal, round. Sclera anicteric. Conjunctiva are clear. Mucous membranes of the mouth are moist. Neck is supple. There is no elevated jugular venous pressure.no carotid bruit is heard. HEART EXAMINATION: [Heart S1, S2 irregularly irregular. No murmur or gallop heard.] CHEST EXAMINATION:[ Lungs reveal diminished air entry to the bases bilaterally, rales heard bilaterally and worse to the left base ABDOMEN: [ Soft,obese, nontender. Bowel sounds are heard. No organomegaly noted]. EXTREMITIES:[ 2+ peripheral pulses with 2+ evidence of peripheral edema , evidence of a chronic venous stasis. Patient does have a black area on his third toe, right foot NEUROLOGIC [patient is awake, alert and oriented 3 - Labs CBC & Chem 7: 07/11/20 06:34 07/12/20 07:29 Labs: Abnormal Lab Results - Last 24 Hours (Table) 07/11/20 07/11/20 07/11/20 Range/Units 11:42 17:18 19:54 Sodium (137-145) mmol/L Chloride (98-107) mmol/L Carbon Dioxide (22-30) mmol/L Glucose (74-99) mg/dL POC Glucose (mg/dL) 112 H 204 H 191 H (75-99) mg/dL 07/12/20 07/12/20 Range/Units 06:09 07:29 Sodium 132 L (137-145) mmol/L Chloride 95 L (98-107) mmol/L Carbon Dioxide 34 H (22-30) mmol/L Glucose 102 H (74-99) mg/dL POC Glucose (mg/dL) 110 H (75-99) mg/dL Microbiology - Last 24 Hours (Table) 07/07/20 18:08 Blood Culture - Preliminary Blood No Growth after 96 hours Assessment and Plan Plan: #1 diastolic congestive heart failure acute on chronic #2 COPD with home O2 use #3 hypertension #4 diabetes #5 hyperlipidemia #6 nicotine dependence #7 paroxysmal atrial fibrillation, on Eliquis for anticoagulation Plan Continue Lasix at 40 mg IV every 12 hours, Lopressor 50 mg twice daily, Aldactone had been increased during this hospitalization to 50 mg daily, potassium was decreased to 20 mg once daily. Check lytes BUN creatinine and daily weights. Nurse practitioner note has been reviewed, I agree with documented findings and plan of care. Patient was seen and examined.
[2020-07-12] MEDS: diazePAM 5 MG TAB PO PRN (16:15)
[2020-07-12 16:55] LABS: Glucose,Whole Blood 159 mg/dL (75-99)
[2020-07-12] MEDS: MELATONIN 5 MG TABLET PO SCH (20:44)
[2020-07-12 20:48] LABS: Glucose,Whole Blood 123 mg/dL (75-99)
[2020-07-13] MEDS: METOPROLOL TARTRATE 50 MG TAB PO SCH ×2 (06:19→16:51)
[2020-07-13] MEDS: metFORMIN 500 MG TAB PO SCH ×2 (06:19→16:51)
[2020-07-13] MEDS: HYDROcodone/APAP 10-325MG 1 EACH TAB PO SCH ×3 (06:19→23:08)
[2020-07-13 06:23] LABS: Glucose,Whole Blood 103 mg/dL (75-99)
[2020-07-13] MEDS: IPRATROPIUM-ALBUTEROL 3 ML NEB INHALATION SCH ×4 (07:25→21:09)
[2020-07-13] MEDS: BUDESONIDE 0.5 MG/2 ML NEBU INHALATION SCH ×2 (07:25→21:09)
[2020-07-13 07:38] LABS: Anisocytosis Slight; Basophils # (A) 0.1 k/uL (0-0.2); Basophils % (A) 0 %; Eosinophils # (A) 0.1 k/uL (0-0.7); Eosinophils % (A) 1 %; HGB 13.2 gm/dL (13.0-17.5); Lymphocytes # (A) 2.4 k/uL (1.0-4.8); Lymphocytes % (A) 20 %; MCH 31.1 pg (25.0-35.0); MCHC 32.2 g/dL (31.0-37.0); MCV 96.4 fL (80.0-100.0); Mean Platelet Volume 6.5; Monocytes # (A) 0.8 k/uL (0-1.0); Monocytes % (A) 7 %; Neutrophils # (A) 8.1 k/uL (1.3-7.7); Neutrophils % (A) 69 %; Platelet Count 335 k/uL (150-450); RBC 4.25 m/uL (4.30-5.90); RDW 16.8 % (11.5-15.5); WBC 11.7 k/uL (3.8-10.6)
[2020-07-13 07:49] LABS: African American GFR (CKD) >90 (>60 ml/min/1.73 sqM); Anion Gap 8 mmol/L; Blood Urea Nitrogen 21 mg/dL (9-20); Calcium 9.1 mg/dL (8.4-10.2); Carbon Dioxide 29 mmol/L (22-30); Chloride 96 mmol/L (98-107); Glucose 94 mg/dL (74-99); Non-African American GFR(CKD) 89 (>60 ml/min/1.73 sqM); Potassium 4.1 mmol/L (3.5-5.1); Sodium 133 mmol/L (137-145)
[2020-07-13] MEDS: APIXABAN 5 MG TAB PO SCH ×2 (08:15→20:53)
[2020-07-13] MEDS: AZITHROMYCIN 500 MG TAB PO SCH (08:15)
[2020-07-13] MEDS: DULoxetine HCL 60 MG CAPSULE.DR PO SCH (08:16)
[2020-07-13] MEDS: SPIRONOLACTONE 25 MG TAB PO SCH (08:16)
[2020-07-13] MEDS: predniSONE 20 MG TAB PO SCH (08:16)
[2020-07-13] MEDS: POTASSIUM CHLORIDE ER 20 MEQ TAB.ER PO SCH (08:16)
[2020-07-13] MEDS: FUROSEMIDE 10 MG/ML 4 ML VIAL IV SCH ×2 (08:17→13:12)
[2020-07-13] MEDS: NICOTINE 21MG/24HR PATCH TRANSDERM SCH (08:17)
[2020-07-13] MEDS: BUPRENORPHINE HCL 300 MCG PO SCH ×2 (09:07→20:52)
[2020-07-13 11:40] LABS: Glucose,Whole Blood 132 mg/dL (75-99)
--- NOTE | 2020-07-13 13:24 | P.PN ---
Subjective Progress Note Date: 07/13/20 Patient interviewed and examined sitting up comfortably in the recliner chair. He states he did experience some fogginess in his head this morning. According to the nursing staff he did have positive orthostatic blood pressures. He denies any chest pain or chest pressure. He does occasionally have some shortness of breath, however it is overall improved. He is getting breathing treatments [id number]. He denies a palpitations, dizziness, or lightheadedness. GENERAL: Well-appearing, well-nourished obese male and in no acute distress. NECK: Supple without JVD or thyromegaly. LUNGS: Breath sounds clear to auscultation bilaterally. Diminished in the bases. Respiration equal and unlabored. No wheezes, rales or rhonchi. HEART: Irregular rate and rhythm without murmurs, rubs or gallops. S1 and S2 heard. EXTREMITIES: Normal range of motion. 3+ lower extremity edema. No clubbing or cyanosis. Peripheral pulses intact and strong. VITALS: Blood pressure 8457, respiratory rate 18, pulse rate 109, 93% on room air TELEMETRY: Rate controlled atrial fibrillation LABS: WBC 11.7, hemoglobin 13.2, hematocrit 41.0, platelet 335, sodium 133, potassium 4.1, BUN 21, creatinine 0.83 IMPRESSION: #1 diastolic heart failure #2 COPD, home oxygen use #3 hypertension #4 diabetes #5 paroxysmal atrial fibrillation, on Eliquis #6 chronic venous insufficiency #7 dyslipidemia #8 smoking history PLAN: Transition to oral Lasix. Encourage ambulation around the unit and leg elevati on/compression pumps when lying in bed. If blood pressures and labs continue to be stable, he may be discharged from the cardiac standpoint. Objective - Vital Signs Vital signs: Vital Signs Temp 97.5 F L 07/13/20 07:00 Pulse 109 H 07/13/20 12:00 Resp 16 07/13/20 12:00 BP 131/87 07/13/20 12:00 Pulse Ox 91 L 07/13/20 12:00 Intake & Output 07/12/20 07/13/20 07/13/20 19:59 06:59 18:59 Intake Total Output Total Balance Weight Intake: Oral Output: Urine Other: Voiding Method Toilet # Voids - Labs CBC & Chem 7: 07/13/20 06:59 07/13/20 06:59 Labs: Abnormal Lab Results - Last 24 Hours (Table) 07/12/20 07/12/20 07/13/20 Range/Units 16:53 20:38 06:12 WBC (3.8-10.6) k/uL RBC (4.30-5.90) m/uL RDW (11.5-15.5) % Neutrophils # (1.3-7.7) k/uL Sodium (137-145) mmol/L Chloride (98-107) mmol/L BUN (9-20) mg/dL POC Glucose (mg/dL) 159 H 123 H 103 H (75-99) mg/dL 07/13/20 07/13/20 07/13/20 Range/Units 06:59 06:59 11:39 WBC 11.7 H (3.8-10.6) k/uL RBC 4.25 L (4.30-5.90) m/uL RDW 16.8 H (11.5-15.5) % Neutrophils # 8.1 H (1.3-7.7) k/uL Sodium 133 L (137-145) mmol/L Chloride 96 L (98-107) mmol/L BUN 21 H (9-20) mg/dL POC Glucose (mg/dL) 132 H (75-99) mg/dL Microbiology - Last 24 Hours (Table) 07/07/20 18:08 Blood Culture - Preliminary Blood No Growth after 120 hours
[2020-07-13] MEDS: FUROSEMIDE 40 MG TAB PO SCH (14:19)
[2020-07-13 16:38] LABS: Glucose,Whole Blood 152 mg/dL (75-99)
--- NOTE | 2020-07-13 17:16 | XR ---
EXAMINATION TYPE: XR chest 1V DATE OF EXAM: 07/13/2020 CLINICAL HISTORY: Difficulty breathing progress study. TECHNIQUE: Single AP portable upright view of the chest is obtained. COMPARISON: Chest x-ray from 3 days earlier FINDINGS: There is chronic parenchymal change greatest in the bases without new suspicious focal air space opacity, pleural effusion, or pneumothorax. Cardiac silhouette size stable and within normal li mits with atherosclerotic change thoracic aorta. Degenerative change bilateral glenohumeral joints re demonstrated. IMPRESSION: Chronic changes without new acute pulmonary process.
[2020-07-13 20:46] LABS: Glucose,Whole Blood 150 mg/dL (75-99)
[2020-07-13] MEDS: MELATONIN 5 MG TABLET PO SCH (20:53)
[2020-07-13] MEDS: diazePAM 5 MG TAB PO PRN (20:53)
--- NOTE | 2020-07-14 00:18 | P.PN ---
Subjective Progress Note Date: 07/12/20 Principal diagnosis: Paroxysmal atrial fibrillation with RVR Acute exacerbation of chronic diastolic congestive heart failure Chronic obstructive pulmonary disease Patient is a 69-year-old male was admitted to hospital due to acute CHF exacerbation and atrial fibrillation with rapid regular rate.. 07/09/2020 Patient is currently sitting in the chair still complaining of shortness of breath and exertional dyspnea. Significant swelling of the bilateral lower extremities. Patient is being continued on IV Lasix. Patient remaining atrial fibrillation. No complaints of chest pain.Laboratory data showed sodium 128, potassium 3.4 and chloride 94 Magnesium was 1.3 and BNP 1100 Cardiology is following. 07/10/2020 Patient is currently sitting in the chair still having exertional dyspnea and at rest. Leg swelling is improved very minimally. Patient is being continued on IV Lasix 40 mg every 12. Patient was wheezing on examination and was started on prednisone 40 mg daily for 5 days. Sodium level improved to 130 today. Magnesium 1.9 Hemoglobin 12.5 and WBC 8.4 and platelets 361 patient has been afebrile. Cardiology is on board. Continued on Aldactone 25 mg daily as well. 07/11/2020 Patient is currently sitting in the chair comfortably. Still having bilateral lower extremity leg swelling which is improving. Currently being continued on IV Lasix and Aldactone. Breathing status is improved today. Bilateral air entry is also improved. 2D echocardiogram showed ejection fraction 50 to 12%. Chest x-ray showed COPD with patchy peripheral and basilar densities which appear increased from prior. Correlate for CHF with fairly atypical pulmonary edema, multifocal pneumonia or atypical pneumonia. Laboratory data showed WBC 11.1, hemoglobin 13.0 and platelets 380 Sodium 131, chloride 95, TSH 1.6 blood sugar is controlled. No chest pain. No nausea vomiting abdominal pain or diarrhea. 07/12/2020 Patient is currently sitting in the chair comfortably. Currently being continued on IV Lasix and leg swelling is improving. Breathing status is improving with minimal wheezing noted. Bilateral air entry is also improved. Laboratory data showed sodium 132 and potassium 4.3 and bicarb 34 No fever no chills. No nausea vomiting or abdominal pain or diarrhea. Complete review of systems negative except as above Current medications reviewed. Objective - Vital Signs Vital signs: Vital Signs Temp 97.4 F L 07/12/20 19:30 Pulse 90 07/12/20 19:30 Resp 18 07/12/20 19:30 BP 144/81 10/31/20 19:30 Pulse Ox 94 L 07/12/20 19:30 Intake & Output 07/12/20 07/12/20 07/13/20 06:59 18:59 05:59 Intake Total 1080 Output Total 1800 3750 Balance -1800 -2670 Weight 120.1 kg Intake: Oral 1080 Output: Urine 1800 3750 Other: Voiding Method Toilet Toilet # Voids 1 2 - Exam PHYSICAL EXAMINATION: Patient is lying in the bed comfortably, no acute distress, awake alert and oriented.. HEENT: Normocephalic. Neck is supple. Pupils reactive. Nostrils clear. Oral cavity is moist. Ears reveal no drainage. Neck reveals no JVD, carotid bruits, or thyromegaly. CHEST EXAMINATION: Trachea is central. Symmetrical expansion.Bilateral diffuse wheezing and diminished bibasilar sounds CARDIAC: Normal S1, S2 with no gallops. No murmurs ABDOMEN: Soft. Bowel sounds normal. No organomegaly. No abdominal bruits. Extremities: 2+ pedal edema. No clubbing or cyanosis Neurologically awake, alert, oriented x3 with well-coordinated movements. No focal deficits noted Skin: No rash or skin lesions. Psychiatric: Coperative. Nonsuicidal Musculoskeletal: No joint swelling or deformity. Normal range of motion. - Labs CBC & Chem 7: 07/13/20 06:59 07/13/20 06:59 Labs: Abnormal Lab Results - Last 24 Hours (Table) 07/12/20 07/12/20 07/12/20 Range/Units 06:09 07:29 16:53 Sodium 132 L (137-145) mmol/L Chloride 95 L (98-107) mmol/L Carbon Dioxide 34 H (22-30) mmol/L Glucose 102 H (74-99) mg/dL POC Glucose (mg/dL) 110 H 159 H (75-99) mg/dL 07/12/20 Range/Units 20:38 Sodium (137-145) mmol/L Chloride (98-107) mmol/L Carbon Dioxide (22-30) mmol/L Glucose (74-99) mg/dL POC Glucose (mg/dL) 123 H (75-99) mg/dL Microbiology - Last 24 Hours (Table) 07/07/20 18:08 Blood Culture - Preliminary Blood No Growth after 120 hours Assessment and Plan Assessment: - shortness of breath: Probably mild COPD exacerbation along with acute CHF exacerbation on chronic diastolic dysfunction with acute exacerbation. Patient will be continued on Lasix patient. patient was started on inhaled steroids and inhalational treatments, BNP will be obtained Rocephin will be discontinued and as there is no clinical evidence of pneumonia. Chest x-ray was read as possibly of pneumonia patient probably has mild atelectasis azithromycin will be continued. added prednisone 40mg daily -Atrial fibrillation with rapid ventricular rate: Patient is on beta marla dose and on Eliquis - Hypokalemia and hypomagnesemia. Replaced. -Low possibility of pneumonia patient probably has bronchitis continue with azithromycin discontinue Rocephin -Possible chronic diastolic dysfunction with mild acute exacerbation -COPD exacerbation -Hyponatremia: Hypervolemic hyponatremia patient was started on IV Lasix will recheck the sodium tomorrow. Patient does have significant pedal edema, which is probably secondary to diastolic dysfunction with acute exacerbation of right- sided heart failure patient had moderate pulmonary hypertension. -Nicotine abuse: Cessation counseling was provided -Hypertension next and-hyperlipoidemia -Gastroesophageal reflux disease -Type 2 diabetes mellitus -Depression Time with Patient: Greater than 30
--- NOTE | 2020-07-14 00:20 | P.PN ---
Subjective Progress Note Date: 07/13/20 Principal diagnosis: Paroxysmal atrial fibrillation with RVR Acute exacerbation of chronic diastolic congestive heart failure Chronic obstructive pulmonary disease Patient is a 69-year-old male was admitted to hospital due to acute CHF exacerbation and atrial fibrillation with rapid regular rate.. 07/09/2020 Patient is currently sitting in the chair still complaining of shortness of breath and exertional dyspnea. Significant swelling of the bilateral lower extremities. Patient is being continued on IV Lasix. Patient remaining atrial fibrillation. No complaints of chest pain.Laboratory data showed sodium 128, potassium 3.4 and chloride 94 Magnesium was 1.3 and BNP 1100 Cardiology is following. 07/10/2020 Patient is currently sitting in the chair still having exertional dyspnea and at rest. Leg swelling is improved very minimally. Patient is being continued on IV Lasix 40 mg every 12. Patient was wheezing on examination and was started on prednisone 40 mg daily for 5 days. Sodium level improved to 130 today. Magnesium 1.9 Hemoglobin 12.5 and WBC 8.4 and platelets 361 patient has been afebrile. Cardiology is on board. Continued on Aldactone 25 mg daily as well. 07/11/2020 Patient is currently sitting in the chair comfortably. Still having bilateral lower extremity leg swelling which is improving. Currently being continued on IV Lasix and Aldactone. Breathing status is improved today. Bilateral air entry is also improved. 2D echocardiogram showed ejection fraction 50 to 12%. Chest x-ray showed COPD with patchy peripheral and basilar densities which appear increased from prior. Correlate for CHF with fairly atypical pulmonary edema, multifocal pneumonia or atypical pneumonia. Laboratory data showed WBC 11.1, hemoglobin 13.0 and platelets 380 Sodium 131, chloride 95, TSH 1.6 blood sugar is controlled. No chest pain. No nausea vomiting abdominal pain or diarrhea. 07/12/2020 Patient is currently sitting in the chair comfortably. Currently being continued on IV Lasix and leg swelling is improving. Breathing status is improving with minimal wheezing noted. Bilateral air entry is also improved. Laboratory data showed sodium 132 and potassium 4.3 and bicarb 34 No fever no chills. No nausea vomiting or abdominal pain or diarrhea. 07/13/2020 Patient is currently sitting in the chair comfortably. Leg swelling is improving slowly. Lasix was changed to by mouth. Otherwise patient denied any complaints of chest pain or shortness of breath. No nausea vomiting or abdominal pain or diarrhea. Laboratory data showed sodium 133 and bicarb 29 today. Hemodynamically stable and saturating well on room air. Anticipate discharge in the next 24 hours with more clinical improvement. Patient did have some dizziness and lightheaded this morning. Orthostatic vitals were checked for positive as per nursing staff. Currently patient denied any dizziness or lightheadedness. No chest pain. Complete review of systems negative except as above Current medications reviewed. Objective - Vital Signs Vital signs: Vital Signs Temp 98.1 F 07/13/20 20:00 Pulse 100 07/13/20 21:27 Resp 18 07/13/20 20:00 BP 130/58 07/13/20 20:00 Pulse Ox 95 07/13/20 20:00 Intake & Output 07/13/20 07/13/20 07/14/20 06:59 18:59 06:59 Intake Total 1200 Output Total 1600 Balance -400 Weight Intake: Oral 1200 Output: Urine 1600 Other: Voiding Method Toilet Toilet # Voids - Exam PHYSICAL EXAMINATION: Patient is lying in the bed comfortably, no acute distress, awake alert and oriented.. HEENT: Normocephalic. Neck is supple. Pupils reactive. Nostrils clear. Oral cavity is moist. Ears reveal no drainage. Neck reveals no JVD, carotid bruits, or thyromegaly. CHEST EXAMINATION: Trachea is central. Symmetrical expansion.Bilateral diffuse wheezing and diminished bibasilar sounds CARDIAC: Normal S1, S2 with no gallops. No murmurs ABDOMEN: Soft. Bowel sounds normal. No organomegaly. No abdominal bruits. Extremities: 2+ pedal edema. No clubbing or cyanosis Neurologically awake, alert, oriented x3 with well-coordinated movements. No focal deficits noted Skin: No rash or skin lesions. Psychiatric: Coperative. Nonsuicidal Musculoskeletal: No joint swelling or deformity. Normal range of motion. - Labs CBC & Chem 7: 07/13/20 06:59 07/13/20 06:59 Labs: Abnormal Lab Results - Last 24 Hours (Table) 07/13/20 07/13/20 07/13/20 Range/Units 06:12 06:59 06:59 WBC 11.7 H (3.8-10.6) k/uL RBC 4.25 L (4.30-5.90) m/uL RDW 16.8 H (11.5-15.5) % Neutrophils # 8.1 H (1.3-7.7) k/uL Sodium 133 L (137-145) mmol/L Chloride 96 L (98-107) mmol/L BUN 21 H (9-20) mg/dL POC Glucose (mg/dL) 103 H (75-99) mg/dL 07/13/20 07/13/20 07/13/20 Range/Units 11:39 16:37 20:31 WBC (3.8-10.6) k/uL RBC (4.30-5.90) m/uL RDW (11.5-15.5) % Neutrophils # (1.3-7.7) k/uL Sodium (137-145) mmol/L Chloride (98-107) mmol/L BUN (9-20) mg/dL POC Glucose (mg/dL) 132 H 152 H 150 H (75-99) mg/dL Microbiology - Last 24 Hours (Table) 07/07/20 18:08 Blood Culture - Final Blood No Growth after 144 hours Assessment and Plan Assessment: - shortness of breath: Probably mild COPD exacerbation along with acute CHF exacerbation on chronic diastolic dysfunction with acute exacerbation. Patient will be continued on Lasix patient. patient was started on inhaled steroids and inhalational treatments, BNP will be obtained Rocephin will be discontinued and as there is no clinical evidence of pneumonia. Chest x-ray was read as possibly of pneumonia patient probably has mild atelectasis azithromycin will be continued. added prednisone 40mg daily -Atrial fibrillation with rapid ventricular rate: Patient is on beta marla dose and on Eliquis - Hypokalemia and hypomagnesemia. Replaced. -Low possibility of pneumonia patient probably has bronchitis continue with azit hromycin discontinue Rocephin -Possible chronic diastolic dysfunction with mild acute exacerbation -COPD exacerbation -Hyponatremia: Hypervolemic hyponatremia patient was started on IV Lasix will recheck the sodium tomorrow. Patient does have significant pedal edema, which is probably secondary to diastolic dysfunction with acute exacerbation of right- sided heart failure patient had moderate pulmonary hypertension. -Nicotine abuse: Cessation counseling was provided -Hypertension next and-hyperlipoidemia -Gastroesophageal reflux disease -Type 2 diabetes mellitus -Depression Time with Patient: Greater than 30
[2020-07-14 04:54] VITALS: RESP 17; TEMP 98.1
[2020-07-14] MEDS: metFORMIN 500 MG TAB PO SCH ×2 (06:29→17:06)
[2020-07-14] MEDS: METOPROLOL TARTRATE 50 MG TAB PO SCH ×2 (06:29→17:06)
[2020-07-14 06:30] LABS: Glucose,Whole Blood 90 mg/dL (75-99)
[2020-07-14] MEDS: HYDROcodone/APAP 10-325MG 1 EACH TAB PO SCH ×2 (06:38→17:06)
[2020-07-14] MEDS: BUDESONIDE 0.5 MG/2 ML NEBU INHALATION SCH (07:37)
[2020-07-14] MEDS: IPRATROPIUM-ALBUTEROL 3 ML NEB INHALATION SCH ×3 (07:37→15:21)
[2020-07-14] MEDS: SPIRONOLACTONE 25 MG TAB PO SCH (08:39)
[2020-07-14] MEDS: NICOTINE 21MG/24HR PATCH TRANSDERM SCH (08:39)
[2020-07-14] MEDS: predniSONE 20 MG TAB PO SCH (08:39)
[2020-07-14] MEDS: APIXABAN 5 MG TAB PO SCH (08:40)
[2020-07-14] MEDS: AZITHROMYCIN 500 MG TAB PO SCH (08:40)
[2020-07-14] MEDS: DULoxetine HCL 60 MG CAPSULE.DR PO SCH (08:40)
[2020-07-14] MEDS: FUROSEMIDE 40 MG TAB PO SCH ×2 (08:40→17:07)
[2020-07-14] MEDS: POTASSIUM CHLORIDE ER 20 MEQ TAB.ER PO SCH (08:40)
[2020-07-14 10:21] VITALS: BP 104/62
[2020-07-14 11:33] LABS: Glucose,Whole Blood 102 mg/dL (75-99)
--- NOTE | 2020-07-14 11:41 | P.PN ---
Subjective Progress Note Date: 07/14/20 HISTORY OF PRESENT ILLNESS: Patient examined this morning. He is sitting in the chair. He states his breathing feels "tight" this morning. He is receiving oral steroids and breathing treatments. He denies chest pain or pressure. He continues to have lower extremity edema which is significantly improved since admission. He remains on oral Lasix. PHYSICAL EXAM: VITAL SIGNS: Reviewed. GENERAL: Well-developed in no acute distress. HEENT: Head is normocephalic. Pupils are equal, round. Sclerae anicteric. Mucous membranes of the mouth are moist. Neck supple. No JVD or thyromegaly LUNGS: Respirations even and unlabored. Lungs diminished. HEART: Irregular rate and rhythm. S1 and S2 heard. ABDOMEN: Soft. Nondistended. Nontender. EXTREMITIES: Normal range of motion. No clubbing or cyanosis. Peripheral pulses intact. 2+ bilateral lower extremity edema NEUROLOGIC: Awake and alert. Oriented x 3. ASSESSMENT: Paroxysmal atrial fibrillation with RVR, heart rate currently controlled Acute exacerbation of chronic diastolic congestive heart failure, EF 50-55% Chronic obstructive pulmonary disease Moderate pulmonary hypertension Hypertension Hyperlipidemia Nicotine dependence PLAN: Continue anticoagulation in the form of Eliquis Continue oral Lasix 40 mg twice a day and on Aldactone 50 mg daily Monitor kidney function Daily weight Accurate I&O Patient to follow up outpatient with Dr. Zapien Nurse practitioner note has been reviewed by physician. Signing provider agrees with the documented findings, assessment, and plan of care. Objective - Vital Signs Vital signs: Vital Signs Temp 98.1 F 07/14/20 04:00 Pulse 100 07/14/20 11:01 Resp 17 07/14/20 08:00 BP 104/62 07/14/20 07:00 Pulse Ox 96 07/14/20 07:00 Intake & Output 07/13/20 07/14/20 07/14/20 18:59 06:59 18:59 Intake Total 1200 480 Output Total 1600 1000 Balance -400 -1000 480 Weight 116.8 kg Intake: Oral 1200 480 Output: Urine 1600 1000 Other: Voiding Method Toilet Toilet # Voids 3 - Labs CBC & Chem 7: 07/13/20 06:59 07/13/20 06:59 Labs: Abnormal Lab Results - Last 24 Hours (Table) 07/13/20 07/13/20 07/13/20 Range/Units 11:39 16:37 20:31 POC Glucose (mg/dL) 132 H 152 H 150 H (75-99) mg/dL 07/14/20 Range/Units 11:30 POC Glucose (mg/dL) 102 H (75-99) mg/dL Microbiology - Last 24 Hours (Table) 07/07/20 18:08 Blood Culture - Final Blood No Growth after 144 hours
[2020-07-14 16:20] VITALS: PULSE 98
[2020-07-14] MEDS: BUPRENORPHINE HCL 300 MCG PO SCH (17:07)
== END 2020-07-14 18:54 | disposition home health service (06) | DRG 292 ==
LOC: EC 13:53 → 1SOBS 16:32 → OBSVTOIN 07-08 11:15 → 3SCARD 07-10 11:57
PROVIDERS: ADMIT Hospitalist; ATTEND Hospitalist
DX: I11.0 Hypertensive heart disease with heart failure (principal); E87.1 Hypo-osmolality and hyponatremia; J44.1 Chronic obstructive pulmonary disease with (acute) exacerbation; J98.11 Atelectasis; F41.9 Anxiety disorder, unspecified; I50.33 Acute on chronic diastolic (congestive) heart failure; I27.20 Pulmonary hypertension, unspecified; I48.0 Paroxysmal atrial fibrillation; E78.5 Hyperlipidemia, unspecified; E87.6 Hypokalemia; F17.200 Nicotine dependence, unspecified, uncomplicated; E83.42 Hypomagnesemia; F32.9 Major depressive disorder, single episode, unspecified; E66.9 Obesity, unspecified; M19.90 Unspecified osteoarthritis, unspecified site; E11.9 Type 2 diabetes mellitus without complications; I87.2 Venous insufficiency (chronic) (peripheral); K59.00 Constipation, unspecified; J40 Bronchitis, not specified as acute or chronic; K21.9 Gastro-esophageal reflux disease without esophagitis; Z79.84 Long term (current) use of oral hypoglycemic drugs; Z79.899 Other long term (current) drug therapy; Z79.01 Long term (current) use of anticoagulants; Z88.0 Allergy status to penicillin; Z88.1 Allergy status to other antibiotic agents; Z68.34 Body mass index [BMI] 34.0-34.9, adult; Z87.01 Personal history of pneumonia (recurrent); Z90.49 Acquired absence of other specified parts of digestive tract; Z98.890 Other specified postprocedural states; Z81.1 Family history of alcohol abuse and dependence
CPT/HCPCS: 36415; 71045; 71046; 80048; 80053; 82550; 83605; 83735; 83880; 84443; 84484; 85025; 85027; 85610; 85730; 87040; 93005; 94640; 94760; 96374; 99285

== ENCOUNTER 2021-01-11 22:09 | Inpatient (IN) | payer MEDICARE, OTHER ==
[2021-01-11] MEDS ORDERED: predniSONE 20 MG TAB PO STA (23:00)
[2021-01-11] MEDS ORDERED: ALBUTEROL NEBULIZED 2.5 MG/3 ML INHALATION STA (23:00)
[2021-01-11] MEDS ORDERED: IPRATROPIUM-ALBUTEROL 3 ML NEB INHALATION STA (23:00)
--- NOTE | 2021-01-11 23:06 | ED ---
SOB HPI - General Chief Complaint: Shortness of Breath Stated Complaint: SOB, COPD Time Seen by Provider: 01/11/21 22:21 Source: patient, EMS Mode of arrival: EMS Limitations: no limitations - History of Present Illness Initial Comments: this patient is 70-year-old man who presents to be evaluated for shortness of breath and productive cough. He states that this is been going on for about 4 days now. He was seen the previous 2 days at [facility], or he states he received breathing treatments, was given steroids, and is continuing on oral steroids. Today he states that he just feels like he is not able to cough up sputum that is in his chest. He continues to have a little shortness of breath. He has not noted fever or chills. Patient denies having had covid infection. he did complete the vaccination series 20 days ago. MD Complaint: shortness of breath, cough Onset/Timin -: days(s) Severity scale (1-10): 0 Consistency: constant Improves With: oxygen Worsens With: exertion, coughing Known History Of: COPD Associated Symptoms: cough, sputum production Treatments Prior to Arrival: oxygen - Related Data Home Oxygen Therapy: Yes Home Oxygen Amount: 2 Liters Home Medications Medication Instructions Recorded Confirmed Albuterol Nebulized [Ventolin 2.5 mg INHALATION RT-TID PRN 05/08/20 07/07/20 Nebulized] Albuterol Sulfate [Albuterol 2 puff INHALATION RT-Q4H PRN 05/08/20 07/07/20 Sulfate Hfa] Omeprazole 20 mg PO DAILY 05/08/20 07/07/20 metFORMIN HCL 500 mg PO AC-BID 05/08/20 07/07/20 Hydrocodone/Acetaminophen [[place] 1 tab PO TID PRN 06/04/20 07/07/20 10-325] Buprenorphine HCl [Belbuca] 300 mcg PO BID 07/07/20 07/07/20 Furosemide [Lasix] 40 mg PO BID 07/07/20 07/07/20 Metoprolol Tartrate [Lopressor] 50 mg PO BID-W/MEALS 07/07/20 07/08/20 Diazepam [Valium] 5 mg PO DAILY PRN 07/10/20 07/10/20 Previous Rx's Medication Instructions Recorded DULoxetine HCL [Cymbalta] 60 mg PO DAILY 30 Days #30 05/16/20 capsule. Ipratropium-Albuterol Nebulize 3 ml INHALATION RT-Q4H PRN 30 Days 05/16/20 [Duoneb 0.5 mg-3 mg/3 ml Soln] #90 ml Nicotine 21Mg/24Hr Patch [Habitrol] 1 patch TRANSDERM DAILY #20 patch 05/16/20 Theophylline 24 Hour [Teddy-24] 400 mg PO DAILY 30 Days #30 05/16/20 cap.er.24h Apixaban [Eliquis] 5 mg PO BID #60 tab 07/08/20 Potassium Chloride ER [K-Dur 20] 20 meq PO DAILY #0 07/14/20 Spironolactone [Aldactone] 50 mg PO DAILY #60 tab 07/14/20 Allergies Allergy/AdvReac Type Severity Reaction Status Date / Time doxycycline Allergy Anaphylaxis Verified 07/07/20 18:06 Penicillins Allergy Unknown Verified 07/07/20 18:06 Review of Systems ROS Statement: Those systems with pertinent positive or pertinent negative responses have been documented in the HPI. ROS Other: All systems not noted in ROS Statement are negative. Constitutional: Denies: fever, chills Respiratory: Reports: cough, dyspnea, wheezes. Denies: hemoptysis Cardiovascular: Reports: dyspnea on exertion. Denies: chest pain, palpitations, orthopnea, edema, syncope Gastrointestinal: Denies: abdominal pain, nausea, vomiting, diarrhea, melena, hematochezia Genitourinary: Denies: dysuria, hematuria Musculoskeletal: Denies: back pain Skin: Denies: rash Neurological: Denies: headache, weakness, numbness Past Medical History Past Medical History: Atrial Fibrillation, Asthma, COPD, Diabetes Mellitus, GERD/Reflux, Hyperlipidemia, Hypertension, Osteoarthritis (OA), Pneumonia Additional Past Medical History / Comment(s): Bronchitis, was using home oxygen but states machine is no longer working, chronic pain in hips/knees/elbows, falls, "borderline" diabetes, past ETOH abuse but states has not drank in 2 years. History of Any Multi-Drug Resistant Organisms: None Reported Past Surgical History: Appendectomy Additional Past Surgical History / Comment(s): Colonoscopy Past Anesthesia/Blood Transfusion Reactions: No Reported Reaction Past Psychological History: Anxiety, Depression Smoking Status: Current every day smoker Past Alcohol Use History: None Reported Past Drug Use History: None Reported - Past Family History Father Additional Family Medical History / Comment(s): Father was an alcoholic but was able to quit drinking Mother Additional Family Medical History / Comment(s): Mother was an alcoholic. General Exam Limitations: no limitations General appearance: alert, in no apparent distress Head exam: Present: atraumatic, normocephalic Eye exam: Present: normal appearance. Absent: scleral icterus, conjunctival injection ENT exam: Present: normal oropharynx Neck exam: Present: normal inspection Respiratory exam: Present: wheezes. Absent: respiratory distress, rales, rhonchi, stridor, accessory muscle use, decreased breath sounds, prolonged expiratory Cardiovascular Exam: Present: regular rate, normal rhythm, normal heart sounds. Absent: systolic murmur, diastolic murmur, rubs, gallop GI/Abdominal exam: Present: soft. Absent: distended, tenderness, guarding, rebound, rigid, mass Extremities exam: Present: normal inspection, normal capillary refill. Absent: pedal edema, calf tenderness Back exam: Present: normal inspection. Absent: CVA tenderness (R), CVA tenderness (L) Neurological exam: Present: alert Skin exam: Present: warm, dry, intact, normal color. Absent: rash Course Vital Signs 01/11/21 01/11/21 01/11/21 22:11 23:02 23:19 Temperature 97.5 F L Pulse Rate 92 98 Respiratory 18 18 Rate Blood Pressure 146/89 O2 Sat by Pulse 97 Oximetry 01/11/21 01/12/21 23:31 00:49 Temperature Pulse Rate 90 96 Respiratory 18 Rate Blood Pressure 149/85 O2 Sat by Pulse 95 Oximetry Medical Decision Making - Lab Data Result diagrams: 01/11/21 22:49 01/11/21 22:49 Lab Results 01/11/21 01/11/21 01/11/21 Range/Units 22:49 22:49 22:49 WBC 16.0 H (3.8-10.6) k/uL RBC 4.54 (4.30-5.90) m/uL Hgb 14.2 (13.0-17.5) gm/dL Hct 40.3 (39.0-53.0) % MCV 88.7 (80.0-100.0) fL MCH 31.3 (25.0-35.0) pg MCHC 35.3 (31.0-37.0) g/dL RDW 15.0 (11.5-15.5) % Plt Count 283 (150-450) k/uL MPV 6.8 Neutrophils % 73 % Lymphocytes % 16 % Monocytes % 8 % Eosinophils % 1 % Basophils % 0 % Neutrophils # 11.7 H (1.3-7.7) k/uL Lymphocytes # 2.6 (1.0-4.8) k/uL Monocytes # 1.4 H (0-1.0) k/uL Eosinophils # 0.2 (0-0.7) k/uL Basophils # 0.1 (0-0.2) k/uL PT 9.5 (9.0-12.0) sec INR 0.9 (<1.2) APTT 22.5 (22.0-30.0) sec D-Dimer 0.26 (<0.60) mg/L FEU Sodium 128 L (137-145) mmol/L Potassium 4.0 (3.5-5.1) mmol/L Chloride 90 L (98-107) mmol/L Carbon Dioxide 30 (22-30) mmol/L Anion Gap 8 mmol/L BUN 11 (9-20) mg/dL Creatinine 1.09 (0.66-1.25) mg/dL Est GFR (CKD-EPI)AfAm 79 (>60 ml/min/1.73 sqM) Est GFR (CKD-EPI)NonAf 68 (>60 ml/min/1.73 sqM) Glucose 93 (74-99) mg/dL Plasma Lactic Acid Wes (0.7-2.0) mmol/L Calcium 9.3 (8.4-10.2) mg/dL Total Bilirubin 0.6 (0.2-1.3) mg/dL AST 21 (17-59) U/L ALT 16 (4-49) U/L Alkaline Phosphatase 62 (38-126) U/L Troponin I (0.000-0.034) ng/mL NT-Pro-B Natriuret Pep pg/mL Total Protein 6.0 L (6.3-8.2) g/dL Albumin 3.7 (3.5-5.0) g/dL Influenza Type A (PCR) (Not Detectd) Influenza Type B (PCR) (Not Detectd) RSV (PCR) (Not Detectd) SARS-CoV-2 (PCR) (Not Detectd) 01/11/21 01/11/21 01/11/21 Range/Units 22:49 22:49 22:49 WBC (3.8-10.6) k/uL RBC (4.30-5.90) m/uL Hgb (13.0-17.5) gm/dL Hct (39.0-53.0) % MCV (80.0-100.0) fL MCH (25.0-35.0) pg MCHC (31.0-37.0) g/dL RDW (11.5-15.5) % Plt Count (150-450) k/uL MPV Neutrophils % % Lymphocytes % % Monocytes % % Eosinophils % % Basophils % % Neutrophils # (1.3-7.7) k/uL Lymphocytes # (1.0-4.8) k/uL Monocytes # (0-1.0) k/uL Eosinophils # (0-0.7) k/uL Basophils # (0-0.2) k/uL PT (9.0-12.0) sec INR (<1.2) APTT (22.0-30.0) sec D-Dimer (<0.60) mg/L FEU Sodium (137-145) mmol/L Potassium (3.5-5.1) mmol/L Chloride (98-107) mmol/L Carbon Dioxide (22-30) mmol/L Anion Gap mmol/L BUN (9-20) mg/dL Creatinine (0.66-1.25) mg/dL Est GFR (CKD-EPI)AfAm (>60 ml/min/1.73 sqM) Est GFR (CKD-EPI)NonAf (>60 ml/min/1.73 sqM) Glucose (74-99) mg/dL Plasma Lactic Acid Wes 1.0 (0.7-2.0) mmol/L Calcium (8.4-10.2) mg/dL Total Bilirubin (0.2-1.3) mg/dL AST (17-59) U/L ALT (4-49) U/L Alkaline Phosphatase (38-126) U/L Troponin I <0.012 (0.000-0.034) ng/mL NT-Pro-B Natriuret Pep 358 pg/mL Total Protein (6.3-8.2) g/dL Albumin (3.5-5.0) g/dL Influenza Type A (PCR) (Not Detectd) Influenza Type B (PCR) (Not Detectd) RSV (PCR) (Not Detectd) SARS-CoV-2 (PCR) (Not Detectd) 01/11/21 Range/Units 23:01 WBC (3.8-10.6) k/uL RBC (4.30-5.90) m/uL Hgb (13.0-17.5) gm/dL Hct (39.0-53.0) % MCV (80.0-100.0) fL MCH (25.0-35.0) pg MCHC (31.0-37.0) g/dL RDW (11.5-15.5) % Plt Count (150-450) k/uL MPV Neutrophils % % Lymphocytes % % Monocytes % % Eosinophils % % Basophils % % Neutrophils # (1.3-7.7) k/uL Lymphocytes # (1.0-4.8) k/uL Monocytes # (0-1.0) k/uL Eosinophils # (0-0.7) k/uL Basophils # (0-0.2) k/uL PT (9.0-12.0) sec INR (<1.2) APTT (22.0-30.0) sec D-Dimer (<0.60) mg/L FEU Sodium (137-145) mmol/L Potassium (3.5-5.1) mmol/L Chloride (98-107) mmol/L Carbon Dioxide (22-30) mmol/L Anion Gap mmol/L BUN (9-20) mg/dL Creatinine (0.66-1.25) mg/dL Est GFR (CKD-EPI)AfAm (>60 ml/min/1.73 sqM) Est GFR (CKD-EPI)NonAf (>60 ml/min/1.73 sqM) Glucose (74-99) mg/dL Plasma Lactic Acid Wes (0.7-2.0) mmol/L Calcium (8.4-10.2) mg/dL Total Bilirubin (0.2-1.3) mg/dL AST (17-59) U/L ALT (4-49) U/L Alkaline Phosphatase (38-126) U/L Troponin I (0.000-0.034) ng/mL NT-Pro-B Natriuret Pep pg/mL Total Protein (6.3-8.2) g/dL Albumin (3.5-5.0) g/dL Influenza Type A (PCR) Not Detected (Not Detectd) Influenza Type B (PCR) Not Detected (Not Detectd) RSV (PCR) Not Detected (Not Detectd) SARS-CoV-2 (PCR) Not Detected (Not Detectd) - EKG Data EKG shows normal: axis (normal), intervals (normal), QRS complexes (normal), ST- T waves (normal) Rate: normal Interpretation: other (underlying rhythm appears to be atrial fibrillation) Disposition Clinical Impression: COPD exacerbation Disposition: ADMITTED IP TO THIS [facility] Condition: Fair Referrals: Elver Jackson MD [Primary Care Provider] - 1-2 days
[2021-01-11 23:13] LABS: Basophils # (A) 0.1 k/uL (0-0.2); Basophils % (A) 0 %; Eosinophils # (A) 0.2 k/uL (0-0.7); Eosinophils % (A) 1 %; HCT 40.3 % (39.0-53.0); HGB 14.2 gm/dL (13.0-17.5); Lymphocytes # (A) 2.6 k/uL (1.0-4.8); Lymphocytes % (A) 16 %; MCH 31.3 pg (25.0-35.0); MCHC 35.3 g/dL (31.0-37.0); MCV 88.7 fL (80.0-100.0); Mean Platelet Volume 6.8; Monocytes # (A) 1.4 k/uL (0-1.0); Monocytes % (A) 8 %; Neutrophils # (A) 11.7 k/uL (1.3-7.7); Neutrophils % (A) 73 %; Platelet Count 283 k/uL (150-450); RBC 4.54 m/uL (4.30-5.90)
[2021-01-11 23:31] LABS: D-Dimer 0.26 mg/L FEU (<0.60); INR 0.9 (<1.2); Partial Thromboplastin Time 22.5 sec (22.0-30.0); Prothrombin Time 9.5 sec (9.0-12.0)
[2021-01-11 23:36] LABS: Albumin 3.7 g/dL (3.5-5.0); Calcium 9.3 mg/dL (8.4-10.2); Total Bilirubin 0.6 mg/dL (0.2-1.3)
--- NOTE | 2021-01-11 23:48 | XR ---
EXAMINATION TYPE: XR chest 2V DATE OF EXAM: 01/11/2021 COMPARISON: 07/13/2020 HISTORY: Short of breath TECHNIQUE: FINDINGS: Heart is normal. Lungs are clear of consolidation. There are no hilar masses. Costophrenic angles are clear. There are chest leads. Mediastinum is within normal limits. Thoracic spine is intac t. IMPRESSION: No active cardiopulmonary disease. There is clearing of some infiltrate lateral left lowe r lobe compared to old exam.
[2021-01-12] MEDS: HYDROcodone/APAP 10-325MG 1 EACH TAB PO PRN ×4 (02:44→20:08)
[2021-01-12] MEDS: IPRATROPIUM-ALBUTEROL 3 ML NEB INHALATION PRN (02:58)
[2021-01-12] MEDS ORDERED: methylPREDNISolone SOD SUCCI 125 MG/2 ML VIAL IV SCH ×2 (06:00→12:00)
[2021-01-12] MEDS ORDERED: ALBUTEROL NEBULIZED 2.5 MG/3 ML INHALATION SCH (08:00)
[2021-01-12] MEDS: METOPROLOL TARTRATE 50 MG TAB PO SCH ×2 (08:17→18:18)
[2021-01-12] MEDS: PANTOPRAZOLE 40 MG TABLET PO SCH (08:18)
[2021-01-12] MEDS: metFORMIN 500 MG TAB PO SCH ×2 (08:18→18:18)
[2021-01-12] MEDS: diazePAM 5 MG TAB PO PRN (08:22)
[2021-01-12 08:23] LABS: Glucose,Whole Blood 204 mg/dL (75-99)
[2021-01-12] MEDS ORDERED: NICOTINE 21MG/24HR PATCH TRANSDERM SCH (09:00)
[2021-01-12] MEDS ORDERED: FUROSEMIDE 40 MG TAB PO SCH (09:00)
[2021-01-12] MEDS ORDERED: SPIRONOLACTONE 25 MG TAB PO SCH (09:00)
[2021-01-12] MEDS ORDERED: HEPARIN SODIUM,PORCINE/PF 5,000 UNIT/0.5 ML SYRINGE SQ SCH (09:00)
[2021-01-12] MEDS ORDERED: FLUCONAZOLE 100 MG TAB PO ONE (09:05)
--- NOTE | 2021-01-12 09:08 | P.CNPUL ---
History of Present Illness Consult date: 01/12/21 Reason for consult: COPD History of present illness: 69-year-old male patient known history of COPD maintained on a combination of Brovana, budesonide and theophylline outpatient basis in addition to albuterol nebulized treatments on an as-needed basis. The patient was getting short of breath approximately a week ago and he was trying to get to my office and he failed to do so and ultimately came into the emergency department for further ev aluation. The patient is a chronic cigarette smoker. His last admission to the hospital was back in April 2024 and acute COPD exacerbation. He has been followed up with Dr. Santiago on outpatient basis. During this current admission, the patient had a chest x-ray that showed COPD without any acute abnormalities. His sodium level is again down at 128 and the patient had similar admissions for hyponatremia. ProBNP level is at 358, viral screen including COVID-19 was negative. He is afebrile. D-dimer is at 0.26. One set of troponin is negative. EKG is consistent with atrial fibrillation. Currently the patient is on room air oxygen with a pulse ox of 96%. Review of Systems CONSTITUTIONAL: No fever, no malaise, no fatigue. HEENT: No recent visual problems or hearing problems. Denied any sore throat. CARDIOVASCULAR: No chest pain, orthopnea, PND, no palpitations, no syncope. PULMONARY no cough, no hemoptysis. The patient has increased shortness of br eath. His exercise capacity is quite limited and the patient states that he is unable to perform activities of daily today life without having trouble breathing. While doing his groceries, he uses a motorized scooter. His performance and functional status is essentially poor. GASTROINTESTINAL: No diarrhea, no nausea, no vomiting, no abdominal pain. NEUROLOGICAL: No headaches, no weakness, no numbness. HEMATOLOGICAL: Denies any bleeding or petechiae. GENITOURINARY: Denies any burning micturition, frequency, or urgency. MUSCULOSKELETAL/RHEUMATOLOGICAL: The patient has chronic pain involving various joints in his body which he attributes to osteoarthritis and the patient was taken narcotic medications an outpatient basis. ENDOCRINE: Denies any polyuria or polydipsia. Past Medical History Past Medical History: Atrial Fibrillation, COPD, Diabetes Mellitus, GERD/Reflux, Hyperlipidemia, Hypertension, Osteoarthritis (OA) Additional Past Medical History / Comment(s): Bronchitis, was using home oxygen but states machine is no longer working, chronic pain in hips/knees/elbows, falls, "borderline" diabetes, past ETOH abuse but states has not drank in 2 years. History of Any Multi-Drug Resistant Organisms: None Reported Past Surgical History: Appendectomy Additional Past Surgical History / Comment(s): Colonoscopy Past Anesthesia/Blood Transfusion Reactions: No Reported Reaction Past Psychological History: Anxiety, Depression Smoking Status: Current every day smoker Past Alcohol Use History: None Reported Past Drug Use History: None Reported - Past Family History Father Additional Family Medical History / Comment(s): Father was an alcoholic but was able to quit drinking Mother Additional Family Medical History / Comment(s): Mother was an alcoholic. Medications and Allergies Home Medications Medication Instructions Recorded Confirmed Type Albuterol Nebulized [Ventolin 2.5 mg INHALATION RT-QID PRN 05/08/20 01/12/21 History Nebulized] Albuterol Sulfate [Albuterol 2 puff INHALATION RT-Q4H PRN 05/08/20 01/12/21 History Sulfate Hfa] Omeprazole 20 mg PO DAILY 05/08/20 01/12/21 History metFORMIN HCL 500 mg PO AC-BID 05/08/20 01/12/21 History Theophylline 24 Hour [Teddy-24] 400 mg PO DAILY 30 Days #30 05/16/20 01/12/21 Rx cap.er.24h Hydrocodone/Acetaminophen [[place] 1 tab PO BID PRN 06/04/20 01/12/21 History 10-325] Furosemide [Lasix] 40 mg PO BID 07/07/20 01/12/21 History Metoprolol Tartrate [Lopressor] 50 mg PO AC-BID 07/07/20 01/12/21 History Apixaban [Eliquis] 5 mg PO BID #60 tab 07/08/20 01/12/21 Rx Atorvastatin [Lipitor] 20 mg PO DAILY 01/12/21 01/12/21 History Potassium Chloride ER [K-Dur 20] 20 meq PO DAILY 01/12/21 01/12/21 History Spironolactone [Aldactone] 25 mg PO DAILY 01/12/21 01/12/21 History amLODIPine [Norvasc] 10 mg PO DAILY 01/12/21 01/12/21 History Allergies Allergy/AdvReac Type Severity Reaction Status Date / Time doxycycline Allergy Anaphylaxis Verified 01/12/21 07:22 Penicillins Allergy Unknown Verified 01/12/21 07:22 Physical Exam Vitals: Vital Signs Temp Pulse Resp BP Pulse Ox 01/12/21 08:25 18 01/12/21 08:15 87 18 142/89 96 01/12/21 08:09 100 01/12/21 08:04 101 H 01/12/21 06:00 101 H 18 139/75 93 L 01/12/21 03:10 90 01/12/21 03:01 83 01/12/21 02:00 92 18 144/78 100 01/12/21 00:49 96 18 149/85 95 01/11/21 23:31 90 01/11/21 23:19 98 01/11/21 23:02 18 01/11/21 22:11 97.5 F L 92 18 146/89 97 Intake and Output 01/11/21 01/12/21 01/12/21 22:59 06:59 14:59 Other: Weight 108.409 kg Gen. appearance obese, comfortable likely distress Head exam was generally normal. There was no scleral icterus or corneal arcus. Mucous membranes were moist. Neck was supple and without jugular venous distension, thyromegaly, or carotid bruits. Carotids were easily palpable bilaterally. There was no adenopathy. The patient is a metabolic S4 that is no goiter or neck masses, extensive thrush and oropharyngeal candidiasis in the back of his throat. Lung sounds are diminished and the patient scattered expiratory wheezes throughout the lung his bilaterally Cardiac exam revealed the PMI to be normally situated and sized. The rhythm was regular and no extrasystoles were noted during several minutes of auscultation. The first and second heart sounds were normal and physiologic splitting of the second heart sound was noted. There were no murmurs, rubs, clicks, or gallops. Abdominal exam revealed normal bowel sounds. The abdomen was soft, non-tender, and without masses, organomegaly, or appreciable enlargement of the abdominal aorta. Patient is overall obese and the patient's organs cannot be accurately palpated. Examination of the skin revealed no evidence of significant rashes, suspicious appearing nevi or other concerning lesions. Neurologically the patient is awake and alert and is no focal neurological deficits. Psychiatric examination the patient may have an underlying depression. Results - Laboratory Findings CBC and BMP: 01/11/21 22:49 01/11/21 22:49 PT/INR, D-dimer PT 9.5 sec (9.0-12.0) 01/11/21 22:49 INR 0.9 (<1.2) 01/11/21 22:49 D-Dimer 0.26 mg/L FEU (<0.60) 01/11/21 22:49 Abnormal lab findings: Abnormal Labs 01/11/21 01/11/21 05 22:49 22:49 08:16 WBC 16.0 H Neutrophils # 11.7 H Monocytes # 1.4 H Sodium 128 L Chloride 90 L POC Glucose (mg/dL) 204 H Total Protein 6.0 L - Diagnostic Findings Chest x-ray: image reviewed Assessment and Plan Plan: 1 acute COPD exacerbation with secondary shortness of breath, and the patient is hospitalized for an acute COPD exacerbation. He has been maintained on a combination of Brovana, Pulmicort and theophylline on outpatient basis. His last hospitalization for COPD exacerbation was in April 2020. He smokes one pack of cigarettes a day. COVID-19 testing was negative. The patient is fully vaccinated for COVID-19. 2 hyponatremia, chronicity is not known, probably chronic , the patient used to take hydrochlorothiazide/chlorthalidone that was switched to Lasix. 3 diabetes mellitus type 2 4 hypertension 5 hyperlipidemia 6 history of depression in addition to history of anxiety. 7 obesity 8 chronic pain maintained on narcotic medication on outpatient basis in the form of hydrocodone. The pain medication was discontinued by his primary care physician and the patient is looking to get involved in a pain clinic regarding his chronic pain medication need. 9 extensive oropharyngeal candidiasis on physical examination 10 chronic atrial fibrillation, rate is controlled and the patient is currently on Eliquis Plan DuoNeb nebulized treatments around the clock 4 times a day IV Solu Medrol 60 mg every 6 hours No need for antibiotics Flovent 200 mg right now and 100 mg on a daily basis for the next 7 days Restrict IV fluids monitor sodium level smoking cessation counseling resume all medications We'll continue to follow Monitor blood sugar and put him on a sliding scale coverage Nicotine patch
--- NOTE | 2021-01-12 10:29 | P.HPIM ---
History of Present Illness Patient with a known history of COPD given with complaints of shortness of breath cough with whitish sputum production. Patient has extensive smoking history. Patient is presently on room air but wheezing quite a bit. Patient's serum sodium although his lower patient is on Aldactone and Lasix patient had a BNP of only 358, patient had a normal ejection fraction the past. Patient was treated for diastolic dysfunction the past and was discharged on Lasix at the time. Patient used to be on her hydrochlorothiazide triamterene combination which was discontinued at that time. Review of Systems REVIEW OF SYSTEMS: CONSTITUTIONAL: No fever, no malaise, no fatigue. HEENT: No recent visual problems or hearing problems. Denied any sore throat. CARDIOVASCULAR: No chest pain, orthopnea, PND, no palpitations, no syncope. PULMONARY: As mentioned in HPI GASTROINTESTINAL: No diarrhea, no nausea, no vomiting, no abdominal pain. NEUROLOGICAL: No headaches, no weakness, no numbness. HEMATOLOGICAL: Denies any bleeding or petechiae. GENITOURINARY: Denies any burning micturition, frequency, or urgency. MUSCULOSKELETAL/RHEUMATOLOGICAL: Denies any joint pain, swelling, or any muscle pain. ENDOCRINE: Denies any polyuria or polydipsia. The rest of the 14-point review of systems is negative. Past Medical History Past Medical History: Atrial Fibrillation, COPD, Diabetes Mellitus, GERD/Reflux, Hyperlipidemia, Hypertension, Osteoarthritis (OA) Additional Past Medical History / Comment(s): Bronchitis, was using home oxygen but states machine is no longer working, chronic pain in hips/knees/elbows, falls, "borderline" diabetes, past ETOH abuse but states has not drank in 2 years. History of Any Multi-Drug Resistant Organisms: None Reported Past Surgical History: Appendectomy Additional Past Surgical History / Comment(s): Colonoscopy Past Anesthesia/Blood Transfusion Reactions: No Reported Reaction Past Psychological History: Anxiety, Depression Smoking Status: Current every day smoker Past Alcohol Use History: None Reported Past Drug Use History: None Reported - Past Family History Father Additional Family Medical History / Comment(s): Father was an alcoholic but was able to quit drinking Mother Additional Family Medical History / Comment(s): Mother was an alcoholic. Medications and Allergies Home Medications Medication Instructions Recorded Confirmed Type Albuterol Nebulized [Ventolin 2.5 mg INHALATION RT-QID PRN 05/08/20 01/12/21 History Nebulized] Albuterol Sulfate [Albuterol 2 puff INHALATION RT-Q4H PRN 05/08/20 01/12/21 History Sulfate Hfa] Omeprazole 20 mg PO DAILY 05/08/20 01/12/21 History metFORMIN HCL 500 mg PO AC-BID 05/08/20 01/12/21 History Theophylline 24 Hour [[place]-24] 400 mg PO DAILY 30 Days #30 05/16/20 01/12/21 Rx cap.er.24h Hydrocodone/Acetaminophen [[place] 1 tab PO BID PRN 06/04/20 01/12/21 History 10-325] Furosemide [Lasix] 40 mg PO BID 07/07/20 01/12/21 History Metoprolol Tartrate [Lopressor] 50 mg PO AC-BID 07/07/20 01/12/21 History Apixaban [Eliquis] 5 mg PO BID #60 tab 07/08/20 01/12/21 Rx Atorvastatin [Lipitor] 20 mg PO DAILY 01/12/21 01/12/21 History Potassium Chloride ER [K-Dur 20] 20 meq PO DAILY 01/12/21 01/12/21 History Spironolactone [Aldactone] 25 mg PO DAILY 01/12/21 01/12/21 History amLODIPine [Norvasc] 10 mg PO DAILY 01/12/21 01/12/21 History Allergies Allergy/AdvReac Type Severity Reaction Status Date / Time doxycycline Allergy Anaphylaxis Verified 01/12/21 07:22 Penicillins Allergy Unknown Verified 01/12/21 07:22 Physical Exam Vitals: Vital Signs Temp Pulse Resp BP Pulse Ox 01/12/21 08:25 18 01/12/21 08:15 87 18 142/89 96 01/12/21 08:09 100 01/12/21 08:04 101 H 01/12/21 06:00 101 H 18 139/75 93 L 01/12/21 03:10 90 01/12/21 03:01 83 01/12/21 02:00 92 18 144/78 100 01/12/21 00:49 96 18 149/85 95 01/11/21 23:31 90 01/11/21 23:19 98 01/11/21 23:02 18 01/11/21 22:11 97.5 F L 92 18 146/89 97 Intake and Output 01/11/21 01/12/21 01/12/21 22:59 06:59 14:59 Other: Weight 108.409 kg PHYSICAL EXAMINATION: GENERAL: The patient is alert and oriented x3, not in any acute distress. Well developed, well nourished. HEENT: Pupils are round and equally reacting to light. EOMI. No scleral icterus. No conjunctival pallor. Normocephalic, atraumatic. No pharyngeal erythema. No thyromegaly. CARDIOVASCULAR: S1 and S2 present. No murmurs, rubs, or gallops. PULMONARY: Significant expiratory wheezing decreased air entry into bilateral lung mclaughlin ABDOMEN: Soft, nontender, nondistended, normoactive bowel sounds. No palpable organomegaly. MUSCULOSKELETAL: No joint swelling or deformity. EXTREMITIES: No cyanosis, clubbing, or pedal edema. NEUROLOGICAL: Gross neurological examination did not reveal any focal deficits. SKIN: No rashes. Results CBC & Chem 7: 01/11/21 22:49 01/11/21 22:49 Labs: Abnormal Lab Results - Last 24 Hours (Table) 01/11/21 01/11/21 01/12/21 Range/Units 22:49 22:49 08:16 WBC 16.0 H (3.8-10.6) k/uL Neutrophils # 11.7 H (1.3-7.7) k/uL Monocytes # 1.4 H (0-1.0) k/uL Sodium 128 L (137-145) mmol/L Chloride 90 L (98-107) mmol/L POC Glucose (mg/dL) 204 H (75-99) mg/dL Total Protein 6.0 L (6.3-8.2) g/dL Assessment and Plan Plan: -COPD exacerbation: Patient was started on prednisone continue with inhalational treatments. Hyponatremia secondary to diuretics which will be held -His heart failure chronic diastolic dysfunction without any acute exacerbation patient will be monitored for any heart failure exacerbation -Type 2 diabetes mellitus patient will be resumed on metformin patient that sugars are expected to go because of systemic steroids will treat with sliding scale insulin -Hypertension -Hyperlipidemia Hypertension depression Obesity -Chronic low back pain -Oropharyngeal candidiasis for which she we'll use nystatin swish and swallow -Atrial fibrillation presently rate controlled on Effexor been will be continued patient probably has paroxysmal A. fib patient is also on metoprolol which will be continued -GI prophylaxis with Protonix DVT prophylaxis patient is on Eliquis as mentioned
[2021-01-12] MEDS: amLODIPine 10 MG TAB PO SCH (10:48)
[2021-01-12] MEDS: APIXABAN 5 MG TAB PO SCH ×2 (10:48→20:08)
[2021-01-12] MEDS: POTASSIUM CHLORIDE ER 20 MEQ TAB.ER PO SCH (10:48)
[2021-01-12] MEDS: predniSONE 20 MG TAB PO SCH (10:48)
[2021-01-12] MEDS: NICOTINE 14MG/24HR PATCH TRANSDERM SCH (10:56)
[2021-01-12] MEDS: DULoxetine HCL 60 MG CAPSULE.DR PO SCH (10:56)
[2021-01-12] MEDS: IPRATROPIUM-ALBUTEROL 3 ML NEB INHALATION SCH ×3 (11:21→20:37)
[2021-01-12] MEDS: BUPRENORPHINE HCL 300 MCG PO SCH ×2 (12:14→20:09)
[2021-01-12 12:16] LABS: Glucose,Whole Blood 121 mg/dL (75-99)
[2021-01-12] MEDS: THEOPHYLLINE 24 HOUR 400 MG CAP.ER.24H PO SCH (12:31)
[2021-01-12] MEDS: INSULIN ASPART (NovoLOG) 100 UNIT/ML VIAL SQ SCH ×3 (12:34→20:16)
[2021-01-12] MEDS: NYSTATIN 100,000 UNIT/ML SUSP 500,000 UNIT/5 ML CUP PO SCH ×3 (16:07→22:00)
[2021-01-12 20:14] LABS: Glucose,Whole Blood 189 mg/dL (75-99)
[2021-01-13] MEDS: diazePAM 5 MG TAB PO PRN ×2 (00:06→12:58)
[2021-01-13] MEDS: IPRATROPIUM-ALBUTEROL 3 ML NEB INHALATION PRN (04:51)
[2021-01-13 07:12] LABS: Glucose,Whole Blood 123 mg/dL (75-99)
[2021-01-13] MEDS: INSULIN ASPART (NovoLOG) 100 UNIT/ML VIAL SQ SCH ×4 (07:36→20:39)
[2021-01-13] MEDS: IPRATROPIUM-ALBUTEROL 3 ML NEB INHALATION SCH ×4 (07:48→20:06)
[2021-01-13] MEDS: NICOTINE 14MG/24HR PATCH TRANSDERM SCH (07:57)
[2021-01-13] MEDS: ATORVASTATIN 20 MG TAB PO SCH (07:59)
[2021-01-13] MEDS: BUPRENORPHINE HCL 300 MCG PO SCH ×2 (07:59→20:41)
[2021-01-13] MEDS: DULoxetine HCL 60 MG CAPSULE.DR PO SCH (07:59)
[2021-01-13] MEDS: APIXABAN 5 MG TAB PO SCH ×2 (07:59→20:58)
[2021-01-13] MEDS: amLODIPine 10 MG TAB PO SCH (07:59)
[2021-01-13] MEDS: predniSONE 20 MG TAB PO SCH (07:59)
[2021-01-13] MEDS: metFORMIN 500 MG TAB PO SCH ×2 (07:59→17:20)
[2021-01-13] MEDS: PANTOPRAZOLE 40 MG TABLET PO SCH (07:59)
[2021-01-13] MEDS: POTASSIUM CHLORIDE ER 20 MEQ TAB.ER PO SCH (07:59)
[2021-01-13] MEDS: METOPROLOL TARTRATE 50 MG TAB PO SCH ×2 (07:59→17:20)
[2021-01-13] MEDS: FLUCONAZOLE 100 MG TAB PO SCH (08:00)
[2021-01-13] MEDS: THEOPHYLLINE 24 HOUR 400 MG CAP.ER.24H PO SCH (08:00)
[2021-01-13] MEDS: NYSTATIN 100,000 UNIT/ML SUSP 500,000 UNIT/5 ML CUP PO SCH ×4 (08:00→21:55)
[2021-01-13] MEDS: HYDROcodone/APAP 10-325MG 1 EACH TAB PO PRN ×3 (08:05→21:00)
[2021-01-13 10:42] LABS: African American GFR (CKD) >90 (>60 ml/min/1.73 sqM); Anion Gap 8 mmol/L; Blood Urea Nitrogen 12 mg/dL (9-20); Calcium 9.1 mg/dL (8.4-10.2); Carbon Dioxide 28 mmol/L (22-30); Chloride 91 mmol/L (98-107); Glucose 117 mg/dL (74-99); Non-African American GFR(CKD) >90 (>60 ml/min/1.73 sqM); Potassium 4.1 mmol/L (3.5-5.1); Sodium 127 mmol/L (137-145)
[2021-01-13 12:15] LABS: Hemoglobin A1C 5.8 % (4.0-6.0)
[2021-01-13 12:18] LABS: Glucose,Whole Blood 168 mg/dL (75-99)
--- NOTE | 2021-01-13 12:34 | P.PN ---
Subjective Patient with a known history of COPD given with complaints of shortness of breath cough with whitish sputum production. Patient has extensive smoking history. Patient is presently on room air but wheezing quite a bit. Patient's serum sodium although his lower patient is on Aldactone and Lasix patient had a BNP of only 358, patient had a normal ejection fraction the past. Patient was treated for diastolic dysfunction the past and was discharged on Lasix at the time. Patient used to be on her hydrochlorothiazide triamterene combination whi ch was discontinued at that time. 01/13/2021 Patient remains hyponatremic. Presently patient is not on IV fluids patient was started on IV fluids continue to hold off on diuretics and will recheck the sodium tomorrow. Patient is still wheezing does have significant wheezing up in the patient was smoking about a pack of cigarettes per day until he came to the hospital. Blood sugars are fairly well controlled at this time Constitutional: Denied any fatigue denied any fever. Cardio vascular: denied any chest pain, palpitations Gastrointestinal denied any nausea vomiting Pulmonary: Significantly short of breath Neurologic denied any new focal deficits All inpatient medications were reviewed and appropriate changes in these medications as dictated in the interval history and assessment and plan. Objective - Vital Signs Vital signs: Vital Signs Temp 97.8 F 01/13/21 07:00 Pulse 96 01/13/21 11:15 Resp 16 01/13/21 08:00 BP 158/83 01/13/21 07:00 Pulse Ox 89 L 01/13/21 10:41 Intake & Output 01/12/21 01/13/21 01/13/21 18:59 06:59 18:59 Intake Total 400 Balance 400 Weight 108.409 kg Intake: Oral 400 Other: # Voids 3 - Exam PHYSICAL EXAMINATION: GENERAL: The patient is alert and oriented x3, not in any acute distress. Well developed, well nourished. HEENT: Pupils are round and equally reacting to light. EOMI. No scleral icterus. No conjunctival pallor. Normocephalic, atraumatic. No pharyngeal erythema. No thyromegaly. he does have oral thrush CARDIOVASCULAR: S1 and S2 present. No murmurs, rubs, or gallops. PULMONARY: Significant expiratory wheezing decreased air entry into bilateral lung mclaughlin ABDOMEN: Soft, nontender, nondistended, normoactive bowel sounds. No palpable organomegaly. MUSCULOSKELETAL: No joint swelling or deformity. EXTREMITIES: No cyanosis, clubbing, or pedal edema. NEUROLOGICAL: Gross neurological examination did not reveal any focal deficits. SKIN: No rashes. - Labs CBC & Chem 7: 01/11/21 22:49 01/13/21 05:29 Labs: Abnormal Lab Results - Last 24 Hours (Table) 01/12/21 01/13/21 01/13/21 Range/Units 20:12 05:29 07:03 Sodium 127 L (137-145) mmol/L Chloride 91 L (98-107) mmol/L Creatinine 0.62 L (0.66-1.25) mg/dL Glucose 117 H (74-99) mg/dL POC Glucose (mg/dL) 189 H 123 H (75-99) mg/dL 01/13/21 Range/Units 12:16 Sodium (137-145) mmol/L Chloride (98-107) mmol/L Creatinine (0.66-1.25) mg/dL Glucose (74-99) mg/dL POC Glucose (mg/dL) 168 H (75-99) mg/dL Assessment and Plan Plan: -COPD exacerbation: Patient was started on prednisone continue with inhalational treatments. Hyponatremia secondary to diuretics which held up without any significant improvement in serum sodium patient will be started on gentle hydration will recheck the serum sodium tomorrow -Congestive heart failure chronic diastolic dysfunction without any acute exacerbation patient will be monitored for any heart failure exacerbation -Type 2 diabetes mellitus patient will be resumed on metformin blood sugars are well controlled at this time -Hypertension -Hyperlipidemia Hypertension depression Obesity -Chronic low back pain -Oropharyngeal candidiasis for which she we'll use nystatin swish and swallow -Atrial fibrillation presently rate controlled on Effexor been will be continued patient probably has paroxysmal A. fib patient is also on metoprolol which will be continued -GI prophylaxis with Protonix DVT prophylaxis patient is on Eliquis as mentioned
[2021-01-13] MEDS: SODIUM CHLORIDE 0.9% 1,000 ML IV SCH ×2 (12:53→21:56)
--- NOTE | 2021-01-13 16:15 | P.PN ---
Subjective Progress Note Date: 01/13/21 69-year-old male patient known history of COPD maintained on a combination of Brovana, budesonide and theophylline outpatient basis in addition to albuterol nebulized treatments on an as-needed basis. The patient was getting short of breath approximately a week ago and he was trying to get to my office and he failed to do so and ultimately came into the emergency department for further evaluation. The patient is a chronic cigarette smoker. His last admission to the hospital was back in April 2024 and acute COPD exacerbation. He has been followed up with Dr. Santiago on outpatient basis. During this current admission, the patient had a chest x-ray that showed COPD without any acute abnormalities. His sodium level is again down at 128 and the patient had similar admissions for hyponatremia. ProBNP level is at 358, viral screen including COVID-19 was negative. He is afebrile. D-dimer is at 0.26. One set of troponin is negative. EKG is consistent with atrial fibrillation. Currently the patient is on room air oxygen with a pulse ox of 96%. On evaluation of 01/13/2021, I'm seeing this patient for a follow-up. Slightly improved compared to yesterday. Slightly less bronchospastic and wheezy compared to yesterday. He is having some increased tremors and shakiness probably related to the steroids and antibiotics. His thrush has cleared and the patient remains on Diflucan for now. No chest pain. No angina. No palpitation. No other complaints. Objective - Vital Signs Vital signs: Vital Signs Temp 97.9 F 01/13/21 13:40 Pulse 112 H 01/13/21 13:40 Resp 16 01/13/21 13:40 BP 158/66 01/13/21 13:40 Pulse Ox 93 L 01/13/21 13:40 Intake & Output 01/12/21 01/13/21 01/13/21 18:59 06:59 18:59 Intake Total 500 Balance 500 Weight 108.409 kg Intake: IV 100 Sodium Chloride 0.9% 1, 100 000 ml @ 75 mls/hr IV . [id number] [facility] Rx#:[id number] Oral 400 Other: # Voids 3 - Exam Gen. appearance obese, comfortable likely distress Head exam was generally normal. There was no scleral icterus or corneal arcus. Mucous membranes were moist. Neck was supple and without jugular venous distension, thyromegaly, or carotid bruits. Carotids were easily palpable bilaterally. There was no adenopathy. The patient is a metabolic S4 that is no goiter or neck masses, extensive thrush and oropharyngeal candidiasis in the back of his throat improved Lung sounds are diminished and the patient scattered expiratory wheezes throughout the lung his bilaterally Cardiac exam revealed the PMI to be normally situated and sized. The rhythm was regular and no extrasystoles were noted during several minutes of auscultation. The first and second heart sounds were normal and physiologic splitting of the second heart sound was noted. There were no murmurs, rubs, clicks, or gallops. Abdominal exam revealed normal bowel sounds. The abdomen was soft, non-tender, and without masses, organomegaly, or appreciable enlargement of the abdominal aorta. Patient is overall obese and the patient's organs cannot be accurately palpated. Examination of the skin revealed no evidence of significant rashes, suspicious appearing nevi or other concerning lesions. Neurologically the patient is awake and alert and is no focal neurological deficits. Psychiatric examination the patient may have an underlying depression. - Labs CBC & Chem 7: 01/11/21 22:49 01/13/21 05:29 Labs: Abnormal Lab Results - Last 24 Hours (Table) 01/12/21 01/13/21 01/13/21 Range/Units 20:12 05:29 07:03 Sodium 127 L (137-145) mmol/L Chloride 91 L (98-107) mmol/L Creatinine 0.62 L (0.66-1.25) mg/dL Glucose 117 H (74-99) mg/dL POC Glucose (mg/dL) 189 H 123 H (75-99) mg/dL 01/13/21 Range/Units 12:16 Sodium (137-145) mmol/L Chloride (98-107) mmol/L Creatinine (0.66-1.25) mg/dL Glucose (74-99) mg/dL POC Glucose (mg/dL) 168 H (75-99) mg/dL Assessment and Plan Plan: 1 acute COPD exacerbation with secondary shortness of breath, and the patient is hospitalized for an acute COPD exacerbation. He has been maintained on a combination of Brovana, Pulmicort and theophylline on outpatient basis. His last hospitalization for COPD exacerbation was in April 2020. He smokes one pack of cigarettes a day. COVID-19 testing was negative. The patient is fully vaccinated for COVID-19. 2 hyponatremia, chronicity is not known, probably chronic , the patient used to take hydrochlorothiazide/chlorthalidone that was switched to Lasix. 3 diabetes mellitus type 2 4 hypertension 5 hyperlipidemia 6 history of depression in addition to history of anxiety. 7 obesity 8 chronic pain maintained on narcotic medication on outpatient basis in the form of hydrocodone. The pain medication was discontinued by his primary care physician and the patient is looking to get involved in a pain clinic regarding his chronic pain medication need. 9 extensive oropharyngeal candidiasis on physical examination 10 chronic atrial fibrillation, rate is controlled and the patient is currently on Eliquis Plan DuoNeb nebulized treatments around the clock 4 times a day IV Solu Medrol 60 mg every 6 hours No need for antibiotics Diflucan 100 mg on a daily basis for the next 7 days Restrict IV fluids smoking cessation counseling We'll continue to follow
[2021-01-13 17:19] LABS: Glucose,Whole Blood 127 mg/dL (75-99)
[2021-01-13 20:38] LABS: Glucose,Whole Blood 108 mg/dL (75-99)
[2021-01-14] MEDS: HYDROcodone/APAP 10-325MG 1 EACH TAB PO PRN ×3 (03:35→19:50)
[2021-01-14] MEDS: IPRATROPIUM-ALBUTEROL 3 ML NEB INHALATION PRN (04:24)
[2021-01-14 07:43] LABS: Glucose,Whole Blood 99 mg/dL (75-99)
[2021-01-14] MEDS: BUPRENORPHINE HCL 300 MCG PO SCH ×2 (07:52→19:48)
[2021-01-14] MEDS: INSULIN ASPART (NovoLOG) 100 UNIT/ML VIAL SQ SCH ×4 (07:52→19:49)
[2021-01-14] MEDS: IPRATROPIUM-ALBUTEROL 3 ML NEB INHALATION SCH ×4 (07:57→19:05)
[2021-01-14] MEDS: amLODIPine 10 MG TAB PO SCH (08:03)
[2021-01-14] MEDS: DULoxetine HCL 60 MG CAPSULE.DR PO SCH (08:03)
[2021-01-14] MEDS: PANTOPRAZOLE 40 MG TABLET PO SCH (08:03)
[2021-01-14] MEDS: METOPROLOL TARTRATE 50 MG TAB PO SCH ×2 (08:03→17:14)
[2021-01-14] MEDS: NICOTINE 14MG/24HR PATCH TRANSDERM SCH (08:03)
[2021-01-14] MEDS: diazePAM 5 MG TAB PO PRN (08:03)
[2021-01-14] MEDS: POTASSIUM CHLORIDE ER 20 MEQ TAB.ER PO SCH (08:04)
[2021-01-14] MEDS: metFORMIN 500 MG TAB PO SCH ×2 (08:04→17:14)
[2021-01-14] MEDS: FLUCONAZOLE 100 MG TAB PO SCH (08:04)
[2021-01-14] MEDS: APIXABAN 5 MG TAB PO SCH ×2 (08:04→19:49)
[2021-01-14] MEDS: NYSTATIN 100,000 UNIT/ML SUSP 500,000 UNIT/5 ML CUP PO SCH ×4 (08:04→19:49)
[2021-01-14] MEDS: THEOPHYLLINE 24 HOUR 400 MG CAP.ER.24H PO SCH (08:04)
[2021-01-14] MEDS: predniSONE 20 MG TAB PO SCH (08:04)
[2021-01-14] MEDS: ATORVASTATIN 20 MG TAB PO SCH (08:04)
[2021-01-14] MEDS ORDERED: DOXYCYCLINE 100 MG CAP PO SCH (11:00)
--- NOTE | 2021-01-14 11:14 | XR ---
EXAMINATION TYPE: XR chest 1V DATE OF EXAM: 01/14/2021 CLINICAL HISTORY: Difficulty breathing and cough progress study. TECHNIQUE: Single AP portable upright view of the chest is obtained. COMPARISON: Chest x-ray from 3 days earlier and older studies. FINDINGS: Background chronic changes bilaterally without suspicious new focal airspace opacity, pleu ral effusion, or pneumothorax seen. Cardiac silhouette size stable and mildly enlarged with atheroscl erotic change aortic knob. Osseous structures are demineralized with advanced degenerative changes bi lateral glenohumeral joints. IMPRESSION: Chronic changes and mild cardiomegaly without acute pulmonary process.
[2021-01-14 11:38] LABS: Glucose,Whole Blood 110 mg/dL (75-99)
[2021-01-14] MEDS: SODIUM CHLORIDE 0.9% 1,000 ML IV SCH (12:15)
--- NOTE | 2021-01-14 12:18 | P.PN ---
Subjective Patient with a known history of COPD given with complaints of shortness of breath cough with whitish sputum production. Patient has extensive smoking history. Patient is presently on room air but wheezing quite a bit. Patient's serum sodium although his lower patient is on Aldactone and Lasix patient had a BNP of only 358, patient had a normal ejection fraction the past. Patient was treated for diastolic dysfunction the past and was discharged on Lasix at the time. Patient used to be on her hydrochlorothiazide triamterene combination whi ch was discontinued at that time. 01/13/2021 Patient remains hyponatremic. Presently patient is not on IV fluids patient was started on IV fluids continue to hold off on diuretics and will recheck the sodium tomorrow. Patient is still wheezing does have significant wheezing up in the patient was smoking about a pack of cigarettes per day until he came to the hospital. Blood sugars are fairly well controlled at this time 01/14/2021 Patient is feeling better, his wheezing is better as well patient is not requiring oxygen his oral thrush is better as well. Most probably patient can be discharged tomorrow. Patient is able to cough up significant phlegm. Constitutional: Denied any fatigue denied any fever. Cardio vascular: denied any chest pain, palpitations Gastrointestinal denied any nausea vomiting Pulmonary: Shortness of breath is better Neurologic denied any new focal deficits All inpatient medications were reviewed and appropriate changes in these medications as dictated in the interval history and assessment and plan. Objective - Vital Signs Vital signs: Vital Signs Temp 97.5 F L 01/14/21 07:00 Pulse 106 H 01/14/21 08:08 Resp 18 01/14/21 08:00 BP 134/84 01/14/21 07:00 Pulse Ox 92 L 01/14/21 07:00 Intake & Output 01/13/21 01/14/21 01/14/21 18:59 06:59 18:59 Intake Total 500 Balance 500 Intake: IV 100 Sodium Chloride 0.9% 1, 100 000 ml @ 75 mls/hr IV . [id number] [facility] Rx#:[id number] Oral 400 Other: Voiding Method Toilet Toilet # Voids 1 - Exam PHYSICAL EXAMINATION: GENERAL: The patient is alert and oriented x3, not in any acute distress. Well developed, well nourished. HEENT: Pupils are round and equally reacting to light. EOMI. No scleral icterus. No conjunctival pallor. Normocephalic, atraumatic. No pharyngeal erythema. No thyromegaly. he does have oral thrush CARDIOVASCULAR: S1 and S2 present. No murmurs, rubs, or gallops. PULMONARY: expiratory wheezing decreased air entry into bilateral lung mclaughlin, improvement competitors today ABDOMEN: Soft, nontender, nondistended, normoactive bowel sounds. No palpable organomegaly. MUSCULOSKELETAL: No joint swelling or deformity. EXTREMITIES: No cyanosis, clubbing, or pedal edema. NEUROLOGICAL: Gross neurological examination did not reveal any focal deficits. SKIN: No rashes. - Labs CBC & Chem 7: 01/11/21 22:49 01/13/21 05:29 Labs: Abnormal Lab Results - Last 24 Hours (Table) 01/13/21 01/13/21 01/13/21 Range/Units 12:16 17:17 20:37 POC Glucose (mg/dL) 168 H 127 H 108 H (75-99) mg/dL 01/14/21 Range/Units 11:37 POC Glucose (mg/dL) 110 H (75-99) mg/dL Assessment and Plan Plan: -COPD exacerbation: Patient was started on prednisone continue with inhalational treatments. Hyponatremia secondary to diuretics which held up without any significant improvement in serum sodium patient received IV normal saline. serum sodium is still pending -Congestive heart failure chronic diastolic dysfunction without any acute exacerbation patient will be monitored for any heart failure exacerbation -Type 2 diabetes mellitus patient will be resumed on metformin blood sugars are well controlled at this time -Hypertension -Hyperlipidemia Hypertension depression Obesity -Chronic low back pain -Oropharyngeal candidiasis for which patient was started on flucanazole by Pu lmonary -Atrial fibrillation presently rate controlled on Effexor been will be continued patient probably has paroxysmal A. fib patient is also on metoprolol which will be continued -GI prophylaxis with Protonix DVT prophylaxis patient is on Eliquis as mentioned
--- NOTE | 2021-01-14 12:30 | P.PN ---
Subjective Progress Note Date: 01/14/21 69-year-old male patient known history of COPD maintained on a combination of Brovana, budesonide and theophylline outpatient basis in addition to albuterol nebulized treatments on an as-needed basis. The patient was getting short of breath approximately a week ago and he was trying to get to my office and he failed to do so and ultimately came into the emergency department for further evaluation. The patient is a chronic cigarette smoker. His last admission to the hospital was back in April 2024 and acute COPD exacerbation. He has been followed up with Dr. Santiago on outpatient basis. During this current admission, the patient had a chest x-ray that showed COPD without any acute abnormalities. His sodium level is again down at 128 and the patient had similar admissions for hyponatremia. ProBNP level is at 358, viral screen including COVID-19 was negative. He is afebrile. D-dimer is at 0.26. One set of troponin is negative. EKG is consistent with atrial fibrillation. Currently the patient is on room air oxygen with a pulse ox of 96%. On evaluation of 01/13/2021, I'm seeing this patient for a follow-up. Slightly improved compared to yesterday. Slightly less bronchospastic and wheezy compared to yesterday. He is having some increased tremors and shakiness probably related to the steroids and antibiotics. His thrush has cleared and the patient remains on Diflucan for now. No chest pain. No angina. No palpitation. No other complaints. 01/14/2021, clinically the patient is still being treated for an acute COPD exacerbation. Doing well. Still elevated shaky related to steroids and bronchodilators. Currently is on oral prednisone. Candidiasis improving. He w as to swallow without any major difficulties. He is on room air oxygen. No nausea. No vomiting. No diarrhea. He has chronic knee pain related to osteoarthritis. Objective - Vital Signs Vital signs: Vital Signs Temp 97.5 F L 01/14/21 07:00 Pulse 106 H 01/14/21 08:08 Resp 18 01/14/21 08:00 BP 134/84 01/14/21 07:00 Pulse Ox 92 L 01/14/21 07:00 Intake & Output 01/13/21 01/14/21 01/14/21 18:59 06:59 18:59 Intake Total 500 Balance 500 Intake: IV 100 Sodium Chloride 0.9% 1, 100 000 ml @ 75 mls/hr IV . [id number] REPLACED BY [facility] Rx#:[id number] Oral 400 Other: Voiding Method Toilet Toilet # Voids 1 - Exam Gen. appearance obese, comfortable likely distress Head exam was generally normal. There was no scleral icterus or corneal arcus. Mucous membranes were moist. Neck was supple and without jugular venous distension, thyromegaly, or carotid bruits. Carotids were easily palpable bilaterally. There was no adenopathy. The patient is a metabolic S4 that is no goiter or neck masses, extensive thrush and oropharyngeal candidiasis in the back of his throat improved Lung sounds are diminished and the patient scattered expiratory wheezes throughout the lung his bilaterally Cardiac exam revealed the PMI to be normally situated and sized. The rhythm was regular and no extrasystoles were noted during several minutes of auscultation. The first and second heart sounds were normal and physiologic splitting of the second heart sound was noted. There were no murmurs, rubs, clicks, or gallops. Abdominal exam revealed normal bowel sounds. The abdomen was soft, non-tender, and without masses, organomegaly, or appreciable enlargement of the abdominal aorta. Patient is overall obese and the patient's organs cannot be accurately palpated. Examination of the skin revealed no evidence of significant rashes, suspicious appearing nevi or other concerning lesions. Neurologically the patient is awake and alert and is no focal neurological deficits. Psychiatric examination the patient may have an underlying depression. - Labs CBC & Chem 7: 01/11/21 22:49 01/13/21 05:29 Labs: Abnormal Lab Results - Last 24 Hours (Table) 01/13/21 01/13/21 01/14/21 Range/Units 17:17 20:37 11:37 POC Glucose (mg/dL) 127 H 108 H 110 H (75-99) mg/dL Assessment and Plan Plan: 1 acute COPD exacerbation with secondary shortness of breath, and the patient is hospitalized for an acute COPD exacerbation. He has been maintained on a combination of Brovana, Pulmicort and theophylline on outpatient basis. His last hospitalization for COPD exacerbation was in April 2020. He smokes one pack of cigarettes a day. COVID-19 testing was negative. The patient is fully vaccinated for COVID-19. 2 hyponatremia, chronicity is not known, probably chronic , the patient used to take hydrochlorothiazide/chlorthalidone that was switched to Lasix. 3 diabetes mellitus type 2 4 hypertension 5 hyperlipidemia 6 history of depression in addition to history of anxiety. 7 obesity 8 chronic pain maintained on narcotic medication on outpatient basis in the form of hydrocodone. The pain medication was discontinued by his primary care physician and the patient is looking to get involved in a pain clinic regarding his chronic pain medication need. 9 extensive oropharyngeal candidiasis on physical examination 10 chronic atrial fibrillation, rate is controlled and the patient is currently on Eliquis Plan Clinically improving Continue steroids DuoNeb nebulized treatments around the clock 4 times a day Diflucan 100 mg on a daily basis for the next 7 days Restrict IV fluids Follow-up sodium level smoking cessation counseling Home tomorrow
[2021-01-14 13:22] LABS: African American GFR (CKD) 104.2 (60.0-200.0); Anion Gap 12.7 mmol/L (4.00-12.00); BUN/Creat Ratio 16.25 Ratio (12.00-20.00); Calcium 8.5 mg/dL (8.7-10.3); Carbon Dioxide 22.3 mmol/L (21.6-31.8); Non-African American GFR(CKD) 89.9 (60.0-200.0); Potassium 4.2 mmol/L (3.5-5.5)
[2021-01-14 17:14] LABS: Glucose,Whole Blood 176 mg/dL (75-99)
[2021-01-14 19:43] LABS: Glucose,Whole Blood 150 mg/dL (75-99)
[2021-01-15] MEDS: IPRATROPIUM-ALBUTEROL 3 ML NEB INHALATION PRN (03:25)
[2021-01-15 07:09] LABS: Glucose,Whole Blood 91 mg/dL (75-99)
[2021-01-15] MEDS: INSULIN ASPART (NovoLOG) 100 UNIT/ML VIAL SQ SCH ×2 (07:38→12:45)
[2021-01-15 07:45] VITALS: BP 155/84; TEMP 97.4
[2021-01-15] MEDS: HYDROcodone/APAP 10-325MG 1 EACH TAB PO PRN (07:51)
[2021-01-15] MEDS: PANTOPRAZOLE 40 MG TABLET PO SCH (07:51)
[2021-01-15] MEDS: APIXABAN 5 MG TAB PO SCH (07:51)
[2021-01-15] MEDS: DULoxetine HCL 60 MG CAPSULE.DR PO SCH (07:52)
[2021-01-15] MEDS: amLODIPine 10 MG TAB PO SCH (07:52)
[2021-01-15] MEDS: metFORMIN 500 MG TAB PO SCH (07:52)
[2021-01-15] MEDS: ATORVASTATIN 20 MG TAB PO SCH (07:52)
[2021-01-15] MEDS: POTASSIUM CHLORIDE ER 20 MEQ TAB.ER PO SCH (07:52)
[2021-01-15] MEDS: THEOPHYLLINE 24 HOUR 400 MG CAP.ER.24H PO SCH (07:52)
[2021-01-15] MEDS: NICOTINE 14MG/24HR PATCH TRANSDERM SCH (07:52)
[2021-01-15] MEDS: METOPROLOL TARTRATE 50 MG TAB PO SCH (07:52)
[2021-01-15] MEDS: predniSONE 20 MG TAB PO SCH (07:52)
[2021-01-15] MEDS: NYSTATIN 100,000 UNIT/ML SUSP 500,000 UNIT/5 ML CUP PO SCH (07:53)
[2021-01-15] MEDS: FLUCONAZOLE 100 MG TAB PO SCH (07:53)
[2021-01-15] MEDS: BUPRENORPHINE HCL 300 MCG PO SCH (07:53)
[2021-01-15] MEDS: IPRATROPIUM-ALBUTEROL 3 ML NEB INHALATION SCH ×3 (08:28→15:29)
[2021-01-15 09:56] LABS: Anion Gap 9.1 mmol/L (4.00-12.00); BUN/Creat Ratio 17.14 Ratio (12.00-20.00); Calcium 8.8 mg/dL (8.7-10.3); Carbon Dioxide 27.9 mmol/L (21.6-31.8); Non-African American GFR(CKD) 94.9 (60.0-200.0)
[2021-01-15 11:17] LABS: Glucose,Whole Blood 125 mg/dL (75-99)
[2021-01-15 11:54] VITALS: RESP 12
[2021-01-15 12:00] VITALS: PULSE 68
[2021-01-15] MEDS ORDERED: FUROSEMIDE 10 MG/ML 4 ML VIAL IV STA (12:27)
--- NOTE | 2021-01-15 12:36 | P.PN ---
Subjective Progress Note Date: 01/15/21 69-year-old male patient known history of COPD maintained on a combination of Brovana, budesonide and theophylline outpatient basis in addition to albuterol nebulized treatments on an as-needed basis. The patient was getting short of breath approximately a week ago and he was trying to get to my office and he failed to do so and ultimately came into the emergency department for further evaluation. The patient is a chronic cigarette smoker. His last admission to the hospital was back in April 2024 and acute COPD exacerbation. He has been followed up with Dr. Santiago on outpatient basis. During this current admission, the patient had a chest x-ray that showed COPD without any acute abnormalities. His sodium level is again down at 128 and the patient had similar admissions for hyponatremia. ProBNP level is at 358, viral screen including COVID-19 was negative. He is afebrile. D-dimer is at 0.26. One set of troponin is negative. EKG is consistent with atrial fibrillation. Currently the patient is on room air oxygen with a pulse ox of 96%. On evaluation of 01/13/2021, I'm seeing this patient for a follow-up. Slightly improved compared to yesterday. Slightly less bronchospastic and wheezy compared to yesterday. He is having some increased tremors and shakiness probably related to the steroids and antibiotics. His thrush has cleared and the patient remains on Diflucan for now. No chest pain. No angina. No palpitation. No other complaints. 01/14/2021, clinically the patient is still being treated for an acute COPD exacerbation. Doing well. Still elevated shaky related to steroids and bronchodilators. Currently is on oral prednisone. Candidiasis improving. He w as to swallow without any major difficulties. He is on room air oxygen. No nausea. No vomiting. No diarrhea. He has chronic knee pain related to osteoarthritis. 01/15/2021, no new complaints. Less short of breath. Less bronchospastic and wheezy. Thrush has recovered. Ambulating. He has developed some increased swelling lower extremities will be given a dose of Lasix. No other new compl aints otherwise for now. No shakiness. No tremors. Sodium level is up to 129. Normal renal function. Glucose is at 125. Objective - Vital Signs Vital signs: Vital Signs Temp 97.4 F L 01/15/21 07:00 Pulse 68 01/15/21 11:59 Resp 12 01/15/21 11:51 BP 155/84 01/15/21 07:00 Pulse Ox 94 L 01/15/21 07:00 Intake & Output 01/14/21 01/15/21 01/15/21 18:59 06:59 18:59 Intake Total 150 Balance 150 Intake: IV 150 Sodium Chloride 0.9% 1, 150 000 ml @ 75 mls/hr IV . [id number] [facility] Rx#:[id number] Other: Voiding Method Toilet Toilet Toilet # Voids 3 - Exam Gen. appearance obese, comfortable likely distress Head exam was generally normal. There was no scleral icterus or corneal arcus. Mucous membranes were moist. Neck was supple and without jugular venous distension, thyromegaly, or carotid bruits. Carotids were easily palpable bilaterally. There was no adenopathy. The patient is a metabolic S4 that is no goiter or neck masses, extensive thrush and oropharyngeal candidiasis in the back of his throat improved Lung sounds are diminished and the patient scattered expiratory wheezes throughout the lung his bilaterally Cardiac exam revealed the PMI to be normally situated and sized. The rhythm was regular and no extrasystoles were noted during several minutes of auscultation. The first and second heart sounds were normal and physiologic splitting of the second heart sound was noted. There were no murmurs, rubs, clicks, or gallops. Abdominal exam revealed normal bowel sounds. The abdomen was soft, non-tender, and without masses, organomegaly, or appreciable enlargement of the abdominal aorta. Patient is overall obese and the patient's organs cannot be accurately palpated. Examination of the skin revealed no evidence of significant rashes, suspicious appearing nevi or other concerning lesions. Neurologically the patient is awake and alert and is no focal neurological deficits. Psychiatric examination the patient may have an underlying depression. - Labs CBC & Chem 7: 01/11/21 22:49 01/15/21 04:49 Labs: Abnormal Lab Results - Last 24 Hours (Table) 01/14/21 01/14/21 01/14/21 Range/Units 06:02 17:12 19:42 Sodium 130 L (135-145) mmol/L Chloride 95 L (96-109) mmol/L Anion Gap 12.70 H (4.00-12.00) mmol/L Glucose 68 L (70-110) mg/dL POC Glucose (mg/dL) 176 H 150 H (75-99) mg/dL Calcium 8.5 L (8.7-10.3) mg/dL 01/15/21 01/15/21 Range/Units 04:49 11:15 Sodium 129 L (135-145) mmol/L Chloride 92 L (96-109) mmol/L Anion Gap (4.00-12.00) mmol/L Glucose (70-110) mg/dL POC Glucose (mg/dL) 125 H (75-99) mg/dL Calcium (8.7-10.3) mg/dL Assessment and Plan Plan: 1 acute COPD exacerbation with secondary shortness of breath, and the patient is hospitalized for an acute COPD exacerbation. He has been maintained on a combination of Brovana, Pulmicort and theophylline on outpatient basis. His last hospitalization for COPD exacerbation was in April 2020. He smokes one pack of cigarettes a day. COVID-19 testing was negative. The patient is fully vaccinated for COVID-19. 2 hyponatremia, chronicity is not known, probably chronic , the patient used to take hydrochlorothiazide/chlorthalidone that was switched to Lasix. 3 diabetes mellitus type 2 4 hypertension 5 hyperlipidemia 6 history of depression in addition to history of anxiety. 7 obesity 8 chronic pain maintained on narcotic medication on outpatient basis in the form of hydrocodone. The pain medication was discontinued by his primary care physician and the patient is looking to get involved in a pain clinic regarding his chronic pain medication need. 9 extensive oropharyngeal candidiasis on physical examination 10 chronic atrial fibrillation, rate is controlled and the patient is currently on Eliquis Plan The patient is improved and he is back to his baseline or near completely recovered. We'll complete a prednisone burst taper on outpatient basis. He'll be discharged home today on DuoNeb neb last treatment [id number]. The patient also has a combination of Brovana and budesonide the last treatment twice a day. He often will be continued and the patient will be given a prednisone burst taper. Also completed total of seven-day carousel Diflucan 100 mg by mouth daily. Smoking cessation counseling was done. We'll be given a dose of Lasix 40 mg IV prior to his discharge as the patient developed some increased lower extremity edema. Follow-up on outpatient basis. Clear for discharge from the pulmonary standpoint.
--- NOTE | 2021-01-16 09:03 | P.DS ---
Providers Date of admission: 01/13/21 11:06 Expected date of discharge: 01/15/21 Attending physician: Kay Monsalve MD Consults: 01/12/21 01:49 Consult Physician Routine Consulting Provider: Tang Jones Consult Reason/Comments: your patient. COPD exacerbation Do you want consulting provider notified?: Yes Primary care physician: Elver Jackson [place] Hospital Course: Final diagnosis -COPD exacerbation -Hyponatremia secondary to diuretics -Congestive heart failure chronic diastolic dysfunction without any acute exacerbation -Type 2 diabetes mellitus -Hypertension -Hyperlipidemia -depression -Obesity -Chronic low back pain -Oropharyngeal candidiasis -Atrial fibrillation presently rate controlled on anticoagulant. probably has paroxysmal A. fib -GI prophylaxis -Continued ongoing nicotine dependence -DVT prophylaxis Discharge disposition Patient is being discharged in a stable condition with guarded prognosis to home. Patient will follow-up with Dr. Jackson in the outpatient setting. Patient also instructed to follow-up with pulmonary Dr. Jones in the outpatient setting. Patient will continue with home care upon discharge. Patient will continue on Diflucan for the next few days for oral thrush. Total time taken is greater than 35 minutes. Hospital course Patient with a known history of COPD given with complaints of shortness of breath cough with whitish sputum production. Patient has extensive smoking history. Patient is presently on room air but wheezing quite a bit. Patient's serum sodium although his lower patient is on Aldactone and Lasix patient had a BNP of only 358, patient had a normal ejection fraction the past. Patient was treated for diastolic dysfunction the past and was discharged on Lasix at the time. Patient used to be on her hydrochlorothiazide triamterene combination which was discontinued at that time. 01/13/2021 Patient remains hyponatremic. Presently patient is not on IV fluids patient was started on IV fluids continue to hold off on diuretics and will recheck the sodium tomorrow. Patient is still wheezing does have significant wheezing up in the patient was smoking about a pack of cigarettes per day until he came to the hospital. Blood sugars are fairly well controlled at this time 01/14/2021 Patient is feeling better, his wheezing is better as well patient is not requiring oxygen his oral thrush is better as well. Most probably patient can be discharged tomorrow. Patient is able to cough up significant phlegm. 01/15/2021 Patient is seen in follow-up today and did receive a dose of Lasix IV today and is maintained on breathing inhalational treatments along with steroids and being evaluated by pulmonary. Patient is back to baseline and is requesting to go home. He shouldn't instructed to follow-up with pulmonary outpatient for further testing and COPD management. Patient also instructed to avoid tobacco use and states he has multiple nicotine patches at home. Patient will continue on a prednisone taper upon discharge and nebulize treatments were sent to the pharmacy. Currently no reports of chest pain, worsening shortness of breath, or palpitations. Patient is afebrile. No reports of nausea or vomiting and patient is tolerating diet. Patient will be discharged to home today. Guarded prognosis secondary to high risk for readmissions. On exam vital signs are stable. Cardio S1, S2 are muffled. Respiratory shows diminished breath sounds at the bases with no wheezing or rhonchi noted. Abdomen is soft and nontender. Nervous system shows no focal deficits. Please refer to medication reconciliation sheet for a list of medications. Patient Condition at Discharge: Fair Plan - Discharge Summary Discharge Rx Participant: No New Discharge Prescriptions: New DULoxetine HCL [Cymbalta] 60 mg PO DAILY 30 Days #30 capsule. Ipratropium-Albuterol Nebulize [Duoneb 0.5 mg-3 mg/3 ml Soln] 3 ml INHALATION RT-QID 30 Days #120 ml Ipratropium-Albuterol Nebulize [Duoneb 0.5 mg-3 mg/3 ml Soln] 3 ml INHALATION RT-Q4H PRN ml PRN Reason: Shortness Of Breath Or Wheezing HYDROcodone/APAP 10-325MG [[place] 10-325] 1 each PO TID PRN #16 tab PRN Reason: Pain predniSONE 10 mg PO DIRECTED #30 tab Fluconazole [Diflucan] 100 mg PO DAILY 4 Days #4 tab Nicotine 14Mg/24Hr Patch [Habitrol] 1 patch TRANSDERM DAILY patch Continue Omeprazole 20 mg PO DAILY metFORMIN HCL 500 mg PO AC-BID Albuterol Sulfate [Albuterol Sulfate Hfa] 2 puff INHALATION RT-Q4H PRN PRN Reason: Shortness Of Breath Or Wheezing Albuterol Nebulized [Ventolin Nebulized] 2.5 mg INHALATION RT-QID PRN PRN Reason: Shortness Of Breath Theophylline 24 Hour [Teddy-24] 400 mg PO DAILY 30 Days #30 cap.er.24h Metoprolol Tartrate [Lopressor] 50 mg PO AC-BID Apixaban [Eliquis] 5 mg PO BID #60 tab Atorvastatin [Lipitor] 20 mg PO DAILY amLODIPine [Norvasc] 10 mg PO DAILY Discontinued Hydrocodone/Acetaminophen [[place] 10-325] 1 tab PO BID PRN PRN Reason: Pain Furosemide [Lasix] 40 mg PO BID Spironolactone [Aldactone] 25 mg PO DAILY Potassium Chloride ER [K-Dur 20] 20 meq PO DAILY Discharge Medication List Albuterol Nebulized [Ventolin Nebulized] 2.5 mg INHALATION RT-QID PRN 05/08/20 [History] Albuterol Sulfate [Albuterol Sulfate Hfa] 2 puff INHALATION RT-Q4H PRN 05/08/20 [History] Omeprazole 20 mg PO DAILY 05/08/20 [History] metFORMIN HCL 500 mg PO AC-BID 05/08/20 [History] Theophylline 24 Hour [Teddy-24] 400 mg PO DAILY 30 Days #30 cap.er.24h 05/16/20 [Rx] Metoprolol Tartrate [Lopressor] 50 mg PO AC-BID 07/07/20 [History] Apixaban [Eliquis] 5 mg PO BID #60 tab 07/08/20 [Rx] Atorvastatin [Lipitor] 20 mg PO DAILY 01/12/21 [History] amLODIPine [Norvasc] 10 mg PO DAILY 01/12/21 [History] DULoxetine HCL [Cymbalta] 60 mg PO DAILY 30 Days #30 01/15/21 [Rx] Fluconazole [Diflucan] 100 mg PO DAILY 4 Days #4 tab 01/15/21 [Rx] HYDROcodone/APAP 10-325MG [[place] 10-325] 1 each PO TID PRN #16 tab 01/15/21 [Rx] Ipratropium-Albuterol Nebulize [Duoneb 0.5 mg-3 mg/3 ml Soln] 3 ml INHALATION RT-Q4H PRN ml 01/15/21 [Rx] Ipratropium-Albuterol Nebulize [Duoneb 0.5 mg-3 mg/3 ml Soln] 3 ml INHALATION RT-QID 30 Days #120 ml 01/15/21 [Rx] Nicotine 14Mg/24Hr Patch [Habitrol] 1 patch TRANSDERM DAILY patch 01/15/21 [Rx] predniSONE 10 mg PO DIRECTED #30 tab 01/15/21 [Rx] Follow up Appointment(s)/Referral(s): [facility], [NON-STAFF] - 1-2 Days Elver Jackson MD [Primary Care Provider] - 1-2 days Tang Jones MD [STAFF PHYSICIAN] - 2 Weeks Ambulatory/Diagnostic Orders: Basic Metabolic Panel [LAB.AMB] Time Frame: 3 Days, Location: None Selected Patient Instructions/Handouts: How to Stop Smoking (DC) Activity/Diet/Wound Care/Special Instructions: Activity Limited until follow-up Follow-up with primary care provider upon discharge continue with prednisone taper until finished continue with breathing inhalational treatments Follow-up with pulmonary outpatient Continue to hold Aldactone and Lasix until primary care follow-up Avoid tobacco use continue current diet Repeat labs in 2-3 days to monitor sodium levels Discharge Disposition: HOME WITH HOME HEALTH SERVICES
== END 2021-01-15 15:31 | disposition home health service (06) | DRG 191 ==
LOC: EC 22:09 → 1SOBS 01-12 01:49 → 6NMEDSUR 01-12 12:06 → OBSVTOIN 01-13 11:06
PROVIDERS: ADMIT Internal Medicine; ATTEND Internal Medicine
DX: J44.1 Chronic obstructive pulmonary disease with (acute) exacerbation (principal); I50.32 Chronic diastolic (congestive) heart failure; B37.0 Candidal stomatitis; B37.89 Other sites of candidiasis; E87.1 Hypo-osmolality and hyponatremia; T38.0X5A Adverse effect of glucocorticoids and synthetic analogues, initial encounter; R25.1 Tremor, unspecified; M19.90 Unspecified osteoarthritis, unspecified site; T50.2X5A Adverse effect of carbonic-anhydrase inhibitors, benzothiadiazides and other diuretics, initial encounter; Z20.822 Contact with and (suspected) exposure to COVID-19; E11.9 Type 2 diabetes mellitus without complications; E66.9 Obesity, unspecified; G89.29 Other chronic pain; M54.5 Low back pain; M25.552 Pain in left hip; M25.551 Pain in right hip; M25.562 Pain in left knee; M25.561 Pain in right knee; M25.522 Pain in left elbow; M25.521 Pain in right elbow; E78.5 Hyperlipidemia, unspecified; F17.210 Nicotine dependence, cigarettes, uncomplicated; F32.9 Major depressive disorder, single episode, unspecified; F41.9 Anxiety disorder, unspecified; I11.0 Hypertensive heart disease with heart failure; I48.0 Paroxysmal atrial fibrillation; Z79.01 Long term (current) use of anticoagulants; Z79.52 Long term (current) use of systemic steroids; Z79.84 Long term (current) use of oral hypoglycemic drugs; Z79.899 Other long term (current) drug therapy; Z81.1 Family history of alcohol abuse and dependence; F10.11 Alcohol abuse, in remission; Z68.32 Body mass index [BMI] 32.0-32.9, adult; Z88.1 Allergy status to other antibiotic agents; Z88.0 Allergy status to penicillin
CPT/HCPCS: 36415; 71045; 71046; 80048; 80053; 83036; 83605; 83880; 84484; 85025; 85379; 85610; 85730; 87636; 93005; 94640; 99285

== ENCOUNTER 2021-02-05 08:40 | Observation (INO) | payer MEDICARE, OTHER ==
--- NOTE | 2021-02-05 09:01 | ED ---
General Adult HPI - General Chief complaint: Shortness of Breath Stated complaint: SOB Time Seen by Provider: 02/05/21 08:51 Source: patient, EMS, RN notes reviewed Mode of arrival: EMS Limitations: no limitations - History of Present Illness Initial comments: Patient is a pleasant 70-year-old male presenting to the emergency Department with complaints of shortness of breath. Symptoms have progressed over the past week or so. Patient was in the hospital prior to that. He should does have occasional cough. Patient does have history of similar symptoms previously associated with COPD. Patient also has history of CHF. Patient states his legs may be a little bit swollen. No calf pain. No chest pain. No fevers. Patient had oxygen saturation 88 per EMS. - Related Data Home Medications Medication Instructions Recorded Confirmed Albuterol Nebulized [Ventolin 2.5 mg INHALATION RT-QID PRN 05/08/20 01/12/21 Nebulized] Albuterol Sulfate [Albuterol 2 puff INHALATION RT-Q4H PRN 05/08/20 01/12/21 Sulfate Hfa] Omeprazole 20 mg PO DAILY 05/08/20 01/12/21 metFORMIN HCL 500 mg PO AC-BID 05/08/20 01/12/21 Metoprolol Tartrate [Lopressor] 50 mg PO AC-BID 07/07/20 01/12/21 Atorvastatin [Lipitor] 20 mg PO DAILY 01/12/21 01/12/21 amLODIPine [Norvasc] 10 mg PO DAILY 01/12/21 01/12/21 Previous Rx's Medication Instructions Recorded Theophylline 24 Hour [Teddy-24] 400 mg PO DAILY 30 Days #30 05/16/20 cap.er.24h Apixaban [Eliquis] 5 mg PO BID #60 tab 07/08/20 DULoxetine HCL [Cymbalta] 60 mg PO DAILY 30 Days #30 01/15/21 capsule.dr Fluconazole [Diflucan] 100 mg PO DAILY 4 Days #4 tab 01/15/21 HYDROcodone/APAP 10-325MG [[place] 1 each PO TID PRN #16 tab 01/15/21 10-325] Ipratropium-Albuterol Nebulize 3 ml INHALATION RT-Q4H PRN ml 01/15/21 [Duoneb 0.5 mg-3 mg/3 ml Soln] Ipratropium-Albuterol Nebulize 3 ml INHALATION RT-QID 30 Days 01/15/21 [Duoneb 0.5 mg-3 mg/3 ml Soln] #120 ml Nicotine 14Mg/24Hr Patch [Habitrol] 1 patch TRANSDERM DAILY patch 01/15/21 predniSONE 10 mg PO DIRECTED #30 tab 01/15/21 Allergies Allergy/AdvReac Type Severity Reaction Status Date / Time doxycycline Allergy Anaphylaxis Verified 02/05/21 11:11 Penicillins Allergy Unknown Verified 02/05/21 11:11 Review of Systems ROS Statement: Those systems with pertinent positive or pertinent negative responses have been documented in the HPI. ROS Other: All systems not noted in ROS Statement are negative. Constitutional: Denies: fever, chills Eyes: Denies: eye pain ENT: Denies: ear pain Respiratory: Reports: cough, dyspnea Cardiovascular: Denies: chest pain Endocrine: Reports: fatigue Gastrointestinal: Denies: abdominal pain Genitourinary: Denies: dysuria Musculoskeletal: Denies: back pain Skin: Denies: rash Neurological: Denies: weakness Past Medical History Past Medical History: Atrial Fibrillation, Asthma, COPD, Diabetes Mellitus, GERD/Reflux, Hyperlipidemia, Hypertension, Osteoarthritis (OA), Pneumonia Additional Past Medical History / Comment(s): Afib RVR, home oxygen prn, bronchitis, pt states he is on metformin to prevent becoming diabetic, neuropathy bilateral feet/L hand, chronic pain bilateral hips/knees/elbows and shoulders, L heel pain, FALLS, cataracts. History of Any Multi-Drug Resistant Organisms: None Reported Past Surgical History: Appendectomy Additional Past Surgical History / Comment(s): Colonoscopy Past Anesthesia/Blood Transfusion Reactions: No Reported Reaction Past Psychological History: Anxiety, Depression Smoking Status: Former smoker - Past Family History Father Additional Family Medical History / Comment(s): Father was an alcoholic but was able to quit drinking Mother Additional Family Medical History / Comment(s): Mother was an alcoholic. General Exam Limitations: no limitations General appearance: alert, in no apparent distress Head exam: Present: normocephalic Eye exam: Present: normal appearance Neck exam: Present: normal inspection Respiratory exam: Present: wheezes Cardiovascular Exam: Present: tachycardia, irregular rhythm GI/Abdominal exam: Present: soft. Absent: tenderness Extremities exam: Present: normal inspection. Absent: calf tenderness Back exam: Present: normal inspection Neurological exam: Present: alert Psychiatric exam: Present: normal affect, normal mood Skin exam: Present: normal color Course Vital Signs 02/05/21 02/05/21 08:43 10:38 Temperature 97.2 F L 97.7 F Pulse Rate 104 H 104 H Respiratory 22 18 Rate Blood Pressure 142/84 O2 Sat by Pulse 98 96 Oximetry EKG Findings - EKG Comments: EKG Findings:: A. fib with RVR, rate 109. QRS 90. QT 344. QTC 463. Normal axis. Normal QRS. No acute ST change. Medical Decision Making - Medical Decision Making Patient had received DuoNeb by EMS prior to arrival. Patient states breathing is concerned worsen. Patient does have increased wheezing with minimal respiratory distress. Patient does not feel comfortable with discharge home. DuoNeb ordered. Case discussed with Dr. Barton, who will admit covered for hospital call. Patient adds that he also sees Dr. Tayo Rivers in. - Lab Data Result diagrams: 02/05/21 09:13 02/05/21 09:13 Lab Results 02/05/21 02/05/21 02/05/21 Range/Units 09:13 09:13 09:13 WBC 12.6 H (3.8-10.6) k/uL RBC 4.98 (4.30-5.90) m/uL Hgb 14.9 (13.0-17.5) gm/dL Hct 45.3 (39.0-53.0) % MCV 91.1 (80.0-100.0) fL MCH 30.0 (25.0-35.0) pg MCHC 32.9 (31.0-37.0) g/dL RDW 15.7 H (11.5-15.5) % Plt Count 361 (150-450) k/uL MPV 6.7 Neutrophils % 89 % Lymphocytes % 6 % Monocytes % 4 % Eosinophils % 0 % Basophils % 0 % Neutrophils # 11.2 H (1.3-7.7) k/uL Lymphocytes # 0.8 L (1.0-4.8) k/uL Monocytes # 0.5 (0-1.0) k/uL Eosinophils # 0.0 (0-0.7) k/uL Basophils # 0.0 (0-0.2) k/uL PT 9.7 (9.0-12.0) sec INR 0.9 (<1.2) APTT 23.3 (22.0-30.0) sec Sodium 132 L (137-145) mmol/L Potassium 4.1 (3.5-5.1) mmol/L Chloride 93 L (98-107) mmol/L Carbon Dioxide 29 (22-30) mmol/L Anion Gap 10 mmol/L BUN 14 (9-20) mg/dL Creatinine 0.65 L (0.66-1.25) mg/dL Est GFR (CKD-EPI)AfAm >90 (>60 ml/min/1.73 sqM) Est GFR (CKD-EPI)NonAf >90 (>60 ml/min/1.73 sqM) Glucose 145 H (74-99) mg/dL Plasma Lactic Acid Wes (0.7-2.0) mmol/L Calcium 9.5 (8.4-10.2) mg/dL Magnesium 1.5 L (1.6-2.3) mg/dL Total Bilirubin 0.5 (0.2-1.3) mg/dL AST 22 (17-59) U/L ALT 19 (4-49) U/L Alkaline Phosphatase 70 (38-126) U/L Lactate Dehydrogenase 616 (313-618) U/L C-Reactive Protein 3.4 H (<1.0) mg/dL NT-Pro-B Natriuret Pep pg/mL Total Protein 6.9 (6.3-8.2) g/dL Albumin 4.5 (3.5-5.0) g/dL Theophylline 3.7 ug/mL Coronavirus (PCR) (Not Detectd) 02/05/21 02/05/21 02/05/21 Range/Units 09:13 09:13 09:13 WBC (3.8-10.6) k/uL RBC (4.30-5.90) m/uL Hgb (13.0-17.5) gm/dL Hct (39.0-53.0) % MCV (80.0-100.0) fL MCH (25.0-35.0) pg MCHC (31.0-37.0) g/dL RDW (11.5-15.5) % Plt Count (150-450) k/uL MPV Neutrophils % % Lymphocytes % % Monocytes % % Eosinophils % % Basophils % % Neutrophils # (1.3-7.7) k/uL Lymphocytes # (1.0-4.8) k/uL Monocytes # (0-1.0) k/uL Eosinophils # (0-0.7) k/uL Basophils # (0-0.2) k/uL PT (9.0-12.0) sec INR (<1.2) APTT (22.0-30.0) sec Sodium (137-145) mmol/L Potassium (3.5-5.1) mmol/L Chloride (98-107) mmol/L Carbon Dioxide (22-30) mmol/L Anion Gap mmol/L BUN (9-20) mg/dL Creatinine (0.66-1.25) mg/dL Est GFR (CKD-EPI)AfAm (>60 ml/min/1.73 sqM) Est GFR (CKD-EPI)NonAf (>60 ml/min/1.73 sqM) Glucose (74-99) mg/dL Plasma Lactic Acid Wes 3.0 H* (0.7-2.0) mmol/L Calcium (8.4-10.2) mg/dL Magnesium (1.6-2.3) mg/dL Total Bilirubin (0.2-1.3) mg/dL AST (17-59) U/L ALT (4-49) U/L Alkaline Phosphatase (38-126) U/L Lactate Dehydrogenase (313-618) U/L C-Reactive Protein (<1.0) mg/dL NT-Pro-B Natriuret Pep 376 pg/mL Total Protein (6.3-8.2) g/dL Albumin (3.5-5.0) g/dL Theophylline ug/mL Coronavirus (PCR) Not Detected (Not Detectd) - Radiology Data Radiology results: image reviewed (Chest x-ray without acute abnormality) Disposition Clinical Impression: COPD exacerbation Disposition: ADMITTED IP TO THIS HOSP Is patient prescribed a controlled substance at d/c from ED?: No Referrals: Nonstaff,Physician [REFERRING] - 1-2 days Decision Time: 11:18
[2021-02-05 09:31] LABS: Basophils % (A) 0 %; Eosinophils % (A) 0 %; HCT 45.3 % (39.0-53.0); HGB 14.9 gm/dL (13.0-17.5); Lymphocytes # (A) 0.8 k/uL (1.0-4.8); Lymphocytes % (A) 6 %; MCHC 32.9 g/dL (31.0-37.0); MCV 91.1 fL (80.0-100.0); Mean Platelet Volume 6.7; Monocytes # (A) 0.5 k/uL (0-1.0); Monocytes % (A) 4 %; Neutrophils # (A) 11.2 k/uL (1.3-7.7); Neutrophils % (A) 89 %; Platelet Count 361 k/uL (150-450); RBC 4.98 m/uL (4.30-5.90); RDW 15.7 % (11.5-15.5); WBC 12.6 k/uL (3.8-10.6)
[2021-02-05 09:47] LABS: ALT 19 U/L (4-49); AST 22 U/L (17-59); African American GFR (CKD) >90 (>60 ml/min/1.73 sqM); Albumin 4.5 g/dL (3.5-5.0); Alkaline Phosphatase 70 U/L (38-126); Anion Gap 10 mmol/L; Blood Urea Nitrogen 14 mg/dL (9-20); C Reactive Protein 3.4 mg/dL (<1.0); Calcium 9.5 mg/dL (8.4-10.2); Carbon Dioxide 29 mmol/L (22-30); Chloride 93 mmol/L (98-107); Glucose 145 mg/dL (74-99); LDH 616 U/L (313-618); Magnesium 1.5 mg/dL (1.6-2.3); Non-African American GFR(CKD) >90 (>60 ml/min/1.73 sqM); Potassium 4.1 mmol/L (3.5-5.1); Sodium 132 mmol/L (137-145); Theophylline 3.7 ug/mL; Total Bilirubin 0.5 mg/dL (0.2-1.3); Total Protein 6.9 g/dL (6.3-8.2)
--- NOTE | 2021-02-05 09:51 | XR ---
EXAMINATION TYPE: XR chest 2V DATE OF EXAM: 02/05/2021 COMPARISON: January 14, 2021 HISTORY: Shortness of breath TECHNIQUE: Frontal and lateral views of the chest are obtained. FINDINGS: There are chronic emphysematous and parenchymal changes bilaterally without suspicious foc al air space opacity, pleural effusion, or pneumothorax seen. The cardiac silhouette size is within normal limits, less prominent than prior. The osseous structures are somewhat demineralized with mi ld multilevel height loss mid to lower thoracic spine. IMPRESSION: Chronic changes without acute pulmonary process.
[2021-02-05 10:01] LABS: INR 0.9 (<1.2)
[2021-02-05 10:02] LABS: Partial Thromboplastin Time 23.3 sec (22.0-30.0); Prothrombin Time 9.7 sec (9.0-12.0)
[2021-02-05] MEDS ORDERED: IPRATROPIUM-ALBUTEROL 3 ML NEB INHALATION STA (11:17)
[2021-02-05] MEDS ORDERED: HYDROcodone/APAP 5-325MG 1 EACH TAB PO STA (11:17)
[2021-02-05] MEDS ORDERED: methylPREDNISolone SOD SUCCI 125 MG/2 ML VIAL IV STA (11:18)
[2021-02-05] MEDS ORDERED: IPRATROPIUM-ALBUTEROL 3 ML NEB INHALATION PRN (11:18)
[2021-02-05] MEDS ORDERED: LEVOFLOXACIN 500MG-D5W PMX 500 MG in DEXTROSE/WATER 1 100ML.BAG IVPB STA (11:19)
[2021-02-05] MEDS ORDERED: ALBUTEROL HFA INHALER INHALATION STA (11:25)
[2021-02-05] MEDS ORDERED: LEVOFLOXACIN 500MG-D5W PMX 500 MG in DEXTROSE/WATER 1 100ML.BAG IVPB SCH (11:30)
--- NOTE | 2021-02-05 13:06 | P.HPIM ---
History of Present Illness H&P Date: 02/05/21 Chief Complaint: Shortness of breath This is a 70-year-old male with complex past medical history noted below significant for severe COPD the presented to the emergency room with shortness of breath. Patient said that his symptoms started few days ago and is being getting worse. Patient reports having constant cough that is mostly productive of white phlegm. He denies any fevers or chills. He said that phlegm is occasionally yellow. Patient still smoking one pack of cigarettes per day. He has been using his nebulizers at home with minimal relief. Patient was yahaira luated in the ER and be placed on observation for further management Review of Systems Review of system: 14 points review of systems were obtained and were negative except to what were mentioned in the HPI. Past Medical History Past Medical History: Atrial Fibrillation, Asthma, COPD, Diabetes Mellitus, GERD/Reflux, Hyperlipidemia, Hypertension, Osteoarthritis (OA), Pneumonia Additional Past Medical History / Comment(s): Afib RVR, home oxygen prn, bronchitis, pt states he is on metformin to prevent becoming diabetic, neuropathy bilateral feet/L hand, chronic pain bilateral hips/knees/elbows and shoulders, L heel pain, FALLS, cataracts. History of Any Multi-Drug Resistant Organisms: None Reported Past Surgical History: Appendectomy Additional Past Surgical History / Comment(s): Colonoscopy Past Anesthesia/Blood Transfusion Reactions: No Reported Reaction Past Psychological History: Anxiety, Depression Smoking Status: Former smoker - Past Family History Father Additional Family Medical History / Comment(s): Father was an alcoholic but was able to quit drinking Mother Additional Family Medical History / Comment(s): Mother was an alcoholic. Medications and Allergies Home Medications Medication Instructions Recorded Confirmed Type Albuterol Nebulized [Ventolin 2.5 mg INHALATION RT-QID PRN 05/08/20 02/05/21 History Nebulized] Albuterol Sulfate [Albuterol 2 puff INHALATION RT-Q4H PRN 05/08/20 02/05/21 History Sulfate Hfa] Omeprazole 20 mg PO DAILY 05/08/20 02/05/21 History metFORMIN HCL 500 mg PO AC-BID 05/08/20 02/05/21 History Theophylline 24 Hour [[place]eddy-24] 400 mg PO DAILY 30 Days #30 05/16/20 02/05/21 Rx cap.er.24h Metoprolol Tartrate [Lopressor] 50 mg PO AC-BID 07/07/20 02/05/21 History Apixaban [Eliquis] 5 mg PO BID #60 tab 07/08/20 02/05/21 Rx Atorvastatin [Lipitor] 20 mg PO DAILY 01/12/21 02/05/21 History amLODIPine [Norvasc] 10 mg PO DAILY 01/12/21 02/05/21 History DULoxetine HCL [Cymbalta] 60 mg PO DAILY 30 Days #30 01/15/21 02/05/21 Rx capsule. Ipratropium-Albuterol Nebulize 3 ml INHALATION RT-Q4H PRN ml 01/15/21 02/05/21 Rx [Duoneb 0.5 mg-3 mg/3 ml Soln] Ipratropium-Albuterol Nebulize 3 ml INHALATION RT-QID 30 Days 01/15/21 02/05/21 Rx [Duoneb 0.5 mg-3 mg/3 ml Soln] #120 ml HYDROcodone/APAP 5-325MG [[place] 1 tab PO BID 02/05/21 02/05/21 History 5-325] predniSONE [Deltasone] 20 mg PO DAILY 02/05/21 02/05/21 History Allergies Allergy/AdvReac Type Severity Reaction Status Date / Time doxycycline Allergy Anaphylaxis Verified 02/05/21 11:11 Penicillins Allergy Unknown Verified 02/05/21 11:11 Physical Exam Vitals: Vital Signs Temp Pulse Resp BP Pulse Ox 02/05/21 10:38 97.7 F 104 H 18 142/84 96 02/05/21 08:43 97.2 F L 104 H 22 98 Intake and Output 02/04/21 02/05/21 02/05/21 22:59 06:59 14:59 Other: Weight 107.501 kg General: The patient is awake and alert, in no distress Eye: there is normal conjunctiva bilaterally. Neck: The neck is supple, there is no JVD. Cardiovascular: Normal S1-S2, no S3-S4, no murmurs. Respiratory: Lungs with diffuse wheezing all over the chest Gastrointestinal: Abdomen is soft, nontender Musculoskeletal: There is no pedal edema. Neurological:. Speech is normal. Skin: Skin is warm and dry Results CBC & Chem 7: 02/05/21 09:13 02/05/21 09:13 Labs: Abnormal Lab Results - Last 24 Hours (Table) 02/05/21 02/05/21 02/05/21 Range/Units 09:13 09:13 09:13 WBC 12.6 H (3.8-10.6) k/uL RDW 15.7 H (11.5-15.5) % Neutrophils # 11.2 H (1.3-7.7) k/uL Lymphocytes # 0.8 L (1.0-4.8) k/uL Sodium 132 L (137-145) mmol/L Chloride 93 L (98-107) mmol/L Creatinine 0.65 L (0.66-1.25) mg/dL Glucose 145 H (74-99) mg/dL Plasma Lactic Acid Wes 3.0 H* (0.7-2.0) mmol/L Magnesium 1.5 L (1.6-2.3) mg/dL C-Reactive Protein 3.4 H (<1.0) mg/dL Assessment and Plan Assessment: This is a 70-year-old male with past medical history noted below Presented to the emergency room with worsening shortness of breath, wheezing, and cough. Patient was evaluated in the ER and placed on observation for further management of his medical problems noted below: 1. Acute COPD exacerbation 2. Acute on chronic hypoxic respiratory failure 3. Tobacco abuse 4. Chronic diastolic heart failure with no evidence of exacerbation 5. Chronic atrial fibrillation on anticoagulation with Eliquis 6. Type 2 diabetes 7. Essential hypertension 8. Patient is full code Today, I reviewed his medication list and lab work results. IV Solu-Medrol 60 mg every 6 hours. Continue duo nebs every 6 hours scheduled and every 4 hours when necessary. Mucinex 1200 mg twice daily. Patient was counseled extensively regarding tobacco cessation. Nicotine patch ordered. Continue supportive care otherwise. Wean off O2 as tolerated for O2 sats greater than 88%. Awaiting pulmonology evaluation
--- NOTE | 2021-02-05 13:08 | P.PN ---
Progress Note - Text Progress Note Date: 02/05/21 Advanced Care Planning Active Diagnosis: Acute COPD exacerbation with hypoxic respiratory failure Persons present: Patient Summary: Discussed the patient's goals of care in detail. We discussed the meaning of cardiac resuscitation including chest compression and or electric shock if needed. We also discussed the possibility of worsening respiratory status requiring intubation and mechanical ventilation. Patient verbalized to me that he would like to get any resuscitation effort possible to keep him alive. He does not want to be kept alive on machines for a prolonged period of time. He designated his daughter as a decision maker in the event. Patient code status is full code Time spent: Total time spent face to face in education and discussion directly related to advanced care plannin minutes
[2021-02-05] MEDS: guaiFENesin 600 MG TABLET.ER PO SCH (14:08)
[2021-02-05] MEDS: NICOTINE 21MG/24HR PATCH TRANSDERM SCH (14:08)
--- NOTE | 2021-02-05 14:54 | P.CNPUL ---
History of Present Illness Consult date: 02/05/21 Reason for consult: dyspnea, COPD History of present illness: 70-year-old male patient with known history of COPD and this patient is coming into the emergency for another COPD exacerbation with worsening shortness of breath increased dyspnea cough chest tightness and wheeze. The patient was on FiO2 2020. He was discharged home on a prednisone burst taper. He tells the that immediately once he came off the prednisone his disease exacerbated. He is a chronic smoker and continues to smoke 1 pack of cigarettes a day. He is known to have chronic atrial fibrillation maintained on long-term anticoagulation. He has diabetes hypertension hyperlipidemia as comorbid conditions. He has also chronic issues with pain involving the back and the patient alsohas history of alcoholism and he quit drinking approximately 2 years ago. His current oxygenation is adequate at 3 L nasal cannula with a pulse ox of 96%. Hemodynamically stable. Cardiac rhythm is atrial fibrillation. He is afebrile. His COVID-19 testing was negative. His chest x-rays consistent with COPD. Noairspace disease. White cell count is at 12.6. Hemoglobin is at 14.9. Normal coagulation profile. Lactic acid level was sedated the time of admission and dropped down to 1.3. Normal renal function. Normal sodium level at 132. Theophylline level is 3.7 Review of Systems CONSTITUTIONAL: No fever, no malaise, no fatigue. HEENT: No recent visual problems or hearing problems. Denied any sore throat. CARDIOVASCULAR: No chest pain, orthopnea, PND, no palpitations, no syncope. PULMONARY no cough, no hemoptysis. The patient has increased shortness of breath. His exercise capacity is quite limited and the patient states that he is unable to perform activities of daily today life without having trouble breathing. While doing his groceries, he uses a motorized scooter. His performance and functional status is essentially poor. GASTROINTESTINAL: No diarrhea, no nausea, no vomiting, no abdominal pain. NEUROLOGICAL: No headaches, no weakness, no numbness. HEMATOLOGICAL: Denies any bleeding or petechiae. GENITOURINARY: Denies any burning micturition, frequency, or urgency. MUSCULOSKELETAL/RHEUMATOLOGICAL: The patient has chronic pain involving various joints in his body which he attributes to osteoarthritis and the patient was taken narcotic medications an outpatient basis. ENDOCRINE: Denies any polyuria or polydipsia. Past Medical History Past Medical History: Atrial Fibrillation, Asthma, COPD, Diabetes Mellitus, GERD/Reflux, Hyperlipidemia, Hypertension, Osteoarthritis (OA), Pneumonia Additional Past Medical History / Comment(s): Afib RVR, home oxygen prn, bronchitis, pt states he is on metformin to prevent becoming diabetic, neuropathy bilateral feet/L hand, chronic pain back,/bilateral hips/knees/elbows and shoulders, L heel pain, FALLS, cataracts. History of Any Multi-Drug Resistant Organisms: None Reported Past Surgical History: Appendectomy Additional Past Surgical History / Comment(s): Colonoscopy Past Anesthesia/Blood Transfusion Reactions: No Reported Reaction Past Psychological History: Anxiety, Depression Additional Psychological History / Comment(s): Pt resides alone. He has [facility] home care. He has a cane he uses prn. He has a nebulizer and home oxygen. He can drive. Smoking Status: Former smoker Past Alcohol Use History: None Reported Additional Past Alcohol Use History / Comment(s): Pt started smoking in 1969 and smokes a ppd or alittle more. He states he has hx of ETOH abuse but has not drank in 2 years. Past Drug Use History: None Reported Additional Drug Use History / Comment(s): Pt states he did take drugs when he was a young man. - Past Family History Father Additional Family Medical History / Comment(s): Father was an alcoholic but was able to quit drinking Mother Additional Family Medical History / Comment(s): Mother was an alcoholic. Medications and Allergies Home Medications Medication Instructions Recorded Confirmed Type Albuterol Nebulized [Ventolin 2.5 mg INHALATION RT-QID PRN 05/08/20 02/05/21 History Nebulized] Albuterol Sulfate [Albuterol 2 puff INHALATION RT-Q4H PRN 05/08/20 02/05/21 History Sulfate Hfa] Omeprazole 20 mg PO DAILY 05/08/20 02/05/21 History metFORMIN HCL 500 mg PO AC-BID 05/08/20 02/05/21 History Theophylline 24 Hour [[place]-24] 400 mg PO DAILY 30 Days #30 05/16/20 02/05/21 Rx cap.er.24h Metoprolol Tartrate [Lopressor] 50 mg PO AC-BID 07/07/20 02/05/21 History Apixaban [Eliquis] 5 mg PO BID #60 tab 07/08/20 02/05/21 Rx Atorvastatin [Lipitor] 20 mg PO DAILY 01/12/21 02/05/21 History amLODIPine [Norvasc] 10 mg PO DAILY 01/12/21 02/05/21 History DULoxetine HCL [Cymbalta] 60 mg PO DAILY 30 Days #30 01/15/21 02/05/21 Rx capsule. Ipratropium-Albuterol Nebulize 3 ml INHALATION RT-Q4H PRN ml 01/15/21 02/05/21 Rx [Duoneb 0.5 mg-3 mg/3 ml Soln] Ipratropium-Albuterol Nebulize 3 ml INHALATION RT-QID 30 Days 01/15/21 02/05/21 Rx [Duoneb 0.5 mg-3 mg/3 ml Soln] #120 ml HYDROcodone/APAP 5-325MG [[place] 1 tab PO BID 02/05/21 02/05/21 History 5-325] predniSONE [Deltasone] 20 mg PO DAILY 02/05/21 02/05/21 History Allergies Allergy/AdvReac Type Severity Reaction Status Date / Time doxycycline Allergy Anaphylaxis Verified 02/05/21 11:11 Penicillins Allergy Unknown Verified 02/05/21 11:11 Physical Exam Vitals: Vital Signs Temp Pulse Resp BP Pulse Ox 02/05/21 14:09 97.7 F 104 H 18 142/84 96 02/05/21 10:38 97.7 F 104 H 18 142/84 96 02/05/21 08:43 97.2 F L 104 H 22 98 Intake and Output 02/04/21 02/05/21 02/05/21 22:59 06:59 14:59 Other: Weight 107.501 kg Gen. appearance obese, comfortable likely distress, not using for muscle breathing and currently on 3 L 02 nasal cannula Head exam was generally normal. There was no scleral icterus or corneal arcus. Mucous membranes were moist. Neck was supple and without jugular venous distension, thyromegaly, or carotid bruits. Carotids were easily palpable bilaterally. There was no adenopathy. The patient is a metabolic S4 that is no goiter or neck masses, extensive thrush and oropharyngeal candidiasis in the back of his throat. Lung sounds are diminished and the patient scattered expiratory wheezes throughout the lung his bilaterally Cardiac exam revealed the PMI to be normally situated and sized. The rhythm was regular and no extrasystoles were noted during several minutes of auscultation. The first and second heart sounds were normal and physiologic splitting of the s econd heart sound was noted. There were no murmurs, rubs, clicks, or gallops. Abdominal exam revealed normal bowel sounds. The abdomen was soft, non-tender, and without masses, organomegaly, or appreciable enlargement of the abdominal aorta. Patient is overall obese and the patient's organs cannot be accurately palpated. Examination of the skin revealed no evidence of significant rashes, suspicious appearing nevi or other concerning lesions. Neurologically the patient is awake and alert and is no focal neurological deficits. Psychiatric examination the patient may have an underlying depression. Results - Laboratory Findings CBC and BMP: 02/05/21 09:13 02/05/21 09:13 PT/INR, D-dimer PT 9.7 sec (9.0-12.0) 02/05/21 09:13 INR 0.9 (<1.2) 02/05/21 09:13 Abnormal lab findings: Abnormal Labs 02/05/21 02/05/21 02/05/21 09:13 09:13 09:13 WBC 12.6 H RDW 15.7 H Neutrophils # 11.2 H Lymphocytes # 0.8 L Sodium 132 L Chloride 93 L Creatinine 0.65 L Glucose 145 H Plasma Lactic Acid Wes 3.0 H* Magnesium 1.5 L C-Reactive Protein 3.4 H - Diagnostic Findings Chest x-ray: image reviewed Assessment and Plan Plan: 1 acute COPD exacerbation with secondary shortness of breath, and the patient is hospitalized for an acute COPD exacerbation. His last hospitalization for COPD exacerbation was in 2020 and prior to that he another hospitalization back inAugust 2019. He smokes one pack of cigarettes a day. COVID-19 testing was negative. The patient is fully vaccinated for COVID-19.his COPD exacerba tion/related to his chronic smoking. Basline pulmonary function test has not been done as the patient has not seen us in the office for outpatient follow-up on his COPD. No signs of any clear pneumonia and infections presentation is typical of an acute COPD exacerbation. 2 shortness of breath secondary to above 3 diabetes mellitus type 2 4 hypertension 5 hyperlipidemia 6 history of depression in addition to history of anxiety. 7 obesity 8 chronic pain maintained on narcotic medication on outpatient basis in the form of hydrocodone. The pain medication was discontinued by his primary care physician and the patient is looking to get involved in a pain clinic regarding his chronic pain medication need. 9 history of oropharyngeal candidiasis, treated Plan DuoNeb nebulized treatments around the clock 4 times a day IV Solu Medrol 60 mg every 6 hours resumed No need for antibiotics smoking cessation counseling resume all medications, including theophylline We'll continue to follow Monitor blood sugar and put him on a sliding scale coverage Nicotine patch outpatient for function test We'll continue to follow
[2021-02-05] MEDS ORDERED: IPRATROPIUM-ALBUTEROL 3 ML NEB INHALATION SCH (16:00)
[2021-02-05] MEDS: IPRATROPIUM-ALBUTEROL 3 ML NEB INHALATION SCH ×2 (16:26→20:10)
[2021-02-05 17:33] LABS: Glucose,Whole Blood 140 mg/dL (75-99)
[2021-02-05] MEDS: methylPREDNISolone SOD SUCCI 125 MG/2 ML VIAL IV SCH (17:41)
[2021-02-05] MEDS: INSULIN ASPART (NovoLOG) 100 UNIT/ML VIAL SQ SCH ×2 (17:41→20:43)
[2021-02-05] MEDS: METOPROLOL TARTRATE 50 MG TAB PO SCH (17:41)
[2021-02-05 20:25] LABS: Glucose,Whole Blood 189 mg/dL (75-99)
[2021-02-05] MEDS: APIXABAN 5 MG TAB PO SCH (20:41)
[2021-02-05] MEDS: HYDROcodone/APAP 5-325MG 1 EACH TAB PO SCH (20:42)
[2021-02-05 22:02] LABS: Ferritin 136.5 ng/mL (22.0-322.0)
[2021-02-06] MEDS: guaiFENesin 600 MG TABLET.ER PO SCH ×3 (00:15→21:00)
[2021-02-06] MEDS: methylPREDNISolone SOD SUCCI 125 MG/2 ML VIAL IV SCH ×3 (00:16→12:45)
[2021-02-06 07:36] LABS: Glucose,Whole Blood 168 mg/dL (75-99)
[2021-02-06] MEDS: IPRATROPIUM-ALBUTEROL 3 ML NEB INHALATION SCH ×4 (07:42→20:14)
[2021-02-06] MEDS: THEOPHYLLINE 24 HOUR 400 MG CAP.ER.24H PO SCH (07:49)
[2021-02-06] MEDS: ATORVASTATIN 20 MG TAB PO SCH (07:49)
[2021-02-06] MEDS: amLODIPine 10 MG TAB PO SCH (07:50)
[2021-02-06] MEDS: DULoxetine HCL 60 MG CAPSULE.DR PO SCH (07:50)
[2021-02-06] MEDS: PANTOPRAZOLE 40 MG TABLET PO SCH (07:50)
[2021-02-06] MEDS: METOPROLOL TARTRATE 50 MG TAB PO SCH ×2 (07:50→17:54)
[2021-02-06] MEDS: APIXABAN 5 MG TAB PO SCH ×2 (07:50→21:01)
[2021-02-06] MEDS: HYDROcodone/APAP 5-325MG 1 EACH TAB PO SCH ×2 (07:51→17:54)
[2021-02-06] MEDS: NICOTINE 21MG/24HR PATCH TRANSDERM SCH (07:54)
[2021-02-06] MEDS: INSULIN ASPART (NovoLOG) 100 UNIT/ML VIAL SQ SCH ×4 (07:57→21:01)
[2021-02-06 11:34] LABS: Anion Gap 10.8 mmol/L (4.00-12.00); Calcium 9.6 mg/dL (8.7-10.3); Carbon Dioxide 25.2 mmol/L (21.6-31.8); Non-African American GFR(CKD) 94.9 (60.0-200.0); Potassium 4.4 mmol/L (3.5-5.5)
[2021-02-06] MEDS ORDERED: LEVOFLOXACIN 500MG-D5W PMX 500 MG in DEXTROSE/WATER 1 100ML.BAG IVPB SCH (12:00)
--- NOTE | 2021-02-06 12:00 | P.PN ---
Subjective Progress Note Date: 02/06/21 Principal diagnosis: COPD exacerbation 70-year-old male patient with known history of COPD and this patient is coming into the emergency for another COPD exacerbation with worsening shortness of breath increased dyspnea cough chest tightness and wheeze. The patient was on FiO2 2020. He was discharged home on a prednisone burst taper. He tells the that immediately once he came off the prednisone his disease exacerbated. He is a chronic smoker and continues to smoke 1 pack of cigarettes a day. He is known to have chronic atrial fibrillation maintained on long-term anticoagulation. He has diabetes hypertension hyperlipidemia as comorbid conditions. He has also chronic issues with pain involving the back and the patient alsohas history of alcoholism and he quit drinking approximately 2 years ago. His current oxygenation is adequate at 3 L nasal cannula with a pulse ox of 96%. Hemodynamically stable. Cardiac rhythm is atrial fibrillation. He is afebrile. His COVID-19 testing was negative. His chest x-rays consistent with COPD. Noairspace disease. White cell count is at 12.6. Hemoglobin is at 14.9. Normal coagulation profile. Lactic acid level was sedated the time of admission and dropped down to 1.3. Normal renal function. Normal sodium level at 132. Theophylline level is 3.7 The patient is seen today 02/06/2021 in follow-up on the regular medical floor. He is currently sitting up in a chair at the bedside. Awake and alert in no acute distress. Breathing a bit better today compared to yesterday. He is maintaining O2 saturations in the upper 90s on 3 L/m per nasal cannula. He is afebrile. Hemodynamically stable. Sodium 133. Potassium 4.4. Creatinine 0.7. Glucose 160. He is continued on DuoNeb inhalations, IV Solu-Medrol, t heophylline, Mucinex. NicoDerm patch in place. Anticoagulated with Eliquis. Objective - Vital Signs Vital signs: Vital Signs Temp 97.6 F 02/06/21 07:00 Pulse 97 02/06/21 11:37 Resp 18 02/06/21 07:00 BP 135/77 02/06/21 07:00 Pulse Ox 99 02/06/21 07:00 Intake & Output 02/05/21 02/06/21 02/06/21 18:59 06:59 18:59 Intake Total 600 200 Balance 600 200 Weight 107.501 kg Intake: Oral 600 200 Other: Voiding Method Toilet # Voids 2 - Exam GENERAL EXAM: Alert, 70-year-old gentleman, on 3 L nasal cannula, up in a chair, comfortable in no apparent distress. HEAD: Normocephalic. EYES: Normal reaction of pupils, equal size. NOSE: Clear with pink turbinates. THROAT: No erythema or exudates. NECK: No masses, no JVD. CHEST: No chest wall deformity. LUNGS: Equal air entry with bilateral end expiratory wheeze, diminished CVS: S1 and S2 normal with no audible murmur, regular rhythm. ABDOMEN: No hepatosplenomegaly, normal bowel sounds, no guarding or rigidity. SPINE: No scoliosis or deformity SKIN: No rashes CENTRAL NERVOUS SYSTEM: No focal deficits, tone is normal in all 4 extremities. EXTREMITIES: There is trace peripheral edema. No clubbing, no cyanosis. Peripheral pulses are intact. - Labs CBC & Chem 7: 02/05/21 09:13 02/06/21 04:57 Labs: Abnormal Lab Results - Last 24 Hours (Table) 02/05/21 02/05/21 02/06/21 Range/Units 17:32 20:24 04:57 Sodium 133 L (135-145) mmol/L Glucose 160 H (70-110) mg/dL POC Glucose (mg/dL) 140 H 189 H (75-99) mg/dL 02/06/21 Range/Units 07:35 Sodium (135-145) mmol/L Glucose (70-110) mg/dL POC Glucose (mg/dL) 168 H (75-99) mg/dL Assessment and Plan Assessment: 1 acute COPD exacerbation with secondary shortness of breath, and the patient is hospitalized for an acute COPD exacerbation. His last hospitalization for [employer] D exacerbation was earlier this month and prior to that he another hospitalization back in April 2020. He smokes one pack of cigarettes a day. COVID-19 testing was negative. The patient is fully vaccinated for COVID-19. His COPD exacerbation/related to his chronic smoking. Basline pulmonary fun ction test has not been done as the patient has not seen us in the office for outpatient follow-up on his COPD. No signs of any clear pneumonia and infections presentation is typical of an acute COPD exacerbation. 2 shortness of breath secondary to above 3 diabetes mellitus type 2 4 hypertension 5 hyperlipidemia 6 history of depression in addition to history of anxiety. 7 obesity 8 chronic pain maintained on narcotic medication on outpatient basis in the form of hydrocodone. The pain medication was discontinued by his primary care physician and the patient is looking to get involved in a pain clinic regarding his chronic pain medication need. 9 history of oropharyngeal candidiasis, treated Plan: The patient was seen by Dr. Jones He is improved today compared to yesterday Not quite back to his baseline Continue the current treatment plan Add Pulmicort and Perforomist Again educated regarding the importance of complete smoking cessation Probable discharge in the a.m. I, the cosigning physician, performed a history & physical examination of the patient. Lungs sounds are lateral end expiratory wheeze, diminished. Maintaining good O2 saturations in the 90s on 3 L/m per nasal cannula. I discussed the assessment and plan of care with my nurse practitioner, Kelley Haq. I attest to the above note as dictated by her.
--- NOTE | 2021-02-06 12:14 | P.PN ---
Subjective Progress Note Date: 02/06/21 Patient is feeling better today. Wheezing improved significantly. Patient said that his shortness of breath is not back to baseline yet. He is still struggling to get to the bathroom. No acute events overnight reported by nursing staff. Objective - Vital Signs Vital signs: Vital Signs Temp 97.6 F 02/06/21 07:00 Pulse 97 02/06/21 11:37 Resp 18 02/06/21 07:00 BP 135/77 02/06/21 07:00 Pulse Ox 99 02/06/21 07:00 Intake & Output 02/05/21 02/06/21 02/06/21 18:59 06:59 18:59 Intake Total 600 200 Balance 600 200 Weight 107.501 kg Intake: Oral 600 200 Other: Voiding Method Toilet # Voids 2 - Exam General: The patient is awake and alert, in no distress Eye: there is normal conjunctiva bilaterally. Neck: The neck is supple, there is no JVD. Cardiovascular: Normal S1-S2, no S3-S4, no murmurs. Respiratory: Lungs with mild end expiratory wheezing Gastrointestinal: Abdomen is soft, nontender Musculoskeletal: There is no pedal edema. Neurological:. Speech is normal. Skin: Skin is warm and dry - Labs CBC & Chem 7: 02/05/21 09:13 02/06/21 04:57 Labs: Abnormal Lab Results - Last 24 Hours (Table) 02/05/21 02/05/21 02/06/21 Range/Units 17:32 20:24 04:57 Sodium 133 L (135-145) mmol/L Glucose 160 H (70-110) mg/dL POC Glucose (mg/dL) 140 H 189 H (75-99) mg/dL 02/06/21 Range/Units 07:35 Sodium (135-145) mmol/L Glucose (70-110) mg/dL POC Glucose (mg/dL) 168 H (75-99) mg/dL Assessment and Plan Assessment: This is a 70-year-old male with past medical history noted below Presented to the emergency room with worsening shortness of breath, wheezing, and cough. Patient was evaluated in the ER and placed on observation for further management of his medical problems noted below: 1. Acute COPD exacerbation 2. Acute on chronic hypoxic respiratory failure 3. Tobacco abuse 4. Chronic diastolic heart failure with no evidence of exacerbation 5. Chronic atrial fibrillation on anticoagulation with Eliquis 6. Type 2 diabetes 7. Essential hypertension 8. Patient is full code Today, I reviewed his medication list and lab work results. Decrease Solu- Medrol dose to 40 mg IV twice daily. Continue duo nebs every 6 hours scheduled and every 4 hours when necessary. Mucinex 1200 mg twice daily. Patient was counseled extensively regarding tobacco cessation. Nicotine patch ordered. Sliding scale insulin per protocol. Continue supportive care otherwise. Wean off O2 as tolerated for O2 sats greater than 88%. Anticipate discharge home in the morning
[2021-02-06 12:36] LABS: Glucose,Whole Blood 132 mg/dL (75-99)
[2021-02-06 14:02] VITALS: BMI 32.1
[2021-02-06 17:49] LABS: Glucose,Whole Blood 149 mg/dL (75-99)
[2021-02-06 20:20] LABS: Glucose,Whole Blood 215 mg/dL (75-99)
[2021-02-06] MEDS: methylPREDNISolone SOD SUCCI 40 MG/ML 1 ML VIAL IV SCH (21:01)
[2021-02-07] MEDS: HYDROcodone/APAP 5-325MG 1 EACH TAB PO SCH ×2 (00:22→05:59)
[2021-02-07 02:31] VITALS: RESP 20
[2021-02-07 07:15] LABS: Glucose,Whole Blood 140 mg/dL (75-99)
[2021-02-07] MEDS: IPRATROPIUM-ALBUTEROL 3 ML NEB INHALATION SCH (07:44)
[2021-02-07 07:49] VITALS: BP 159/75; TEMP 97.7
[2021-02-07 07:56] VITALS: PULSE 84
[2021-02-07] MEDS: DULoxetine HCL 60 MG CAPSULE.DR PO SCH (08:04)
[2021-02-07] MEDS: PANTOPRAZOLE 40 MG TABLET PO SCH (08:04)
[2021-02-07] MEDS: METOPROLOL TARTRATE 50 MG TAB PO SCH (08:04)
[2021-02-07] MEDS: THEOPHYLLINE 24 HOUR 400 MG CAP.ER.24H PO SCH (08:04)
[2021-02-07] MEDS: APIXABAN 5 MG TAB PO SCH (08:04)
[2021-02-07] MEDS: guaiFENesin 600 MG TABLET.ER PO SCH (08:04)
[2021-02-07] MEDS: amLODIPine 10 MG TAB PO SCH (08:04)
[2021-02-07] MEDS: ATORVASTATIN 20 MG TAB PO SCH (08:04)
[2021-02-07] MEDS: methylPREDNISolone SOD SUCCI 40 MG/ML 1 ML VIAL IV SCH (08:05)
[2021-02-07] MEDS: NICOTINE 21MG/24HR PATCH TRANSDERM SCH (08:05)
[2021-02-07] MEDS: INSULIN ASPART (NovoLOG) 100 UNIT/ML VIAL SQ SCH (08:06)
--- NOTE | 2021-02-07 09:44 | P.DS ---
Providers Date of admission: 02/05/21 11:18 Expected date of discharge: 02/07/21 Attending physician: Francisca Liu Consults: 02/05/21 11:18 Consult Physician Routine Consulting Provider: Tang Jones Consult Reason/Comments: dyspnea Do you want consulting provider notified?: Yes Primary care physician: [facility] Course: This is a 70-year-old male with past medical history noted below Presented to the emergency room with worsening shortness of breath, wheezing, and cough. Patient was evaluated in the ER and placed on observation for further management of his medical problems noted below: 1. Acute COPD exacerbation 2. Acute on chronic hypoxic respiratory failure 3. Tobacco abuse 4. Chronic diastolic heart failure with no evidence of exacerbation 5. Chronic atrial fibrillation on anticoagulation with Eliquis 6. Type 2 diabetes 7. Essential hypertension 8. Patient is full code Patient was treated in the hospital with bronchodilators and IV steroids. His overall condition improved. He will be given a prescription for a tapered course of prednisone. He was advised to continue duo nebs at home every 4 hours for the next few days. He was counseled extensively regarding tobacco cessation. He verbalized understanding of the importance of that. He was given a prescription for a nicotine patch. He is also advised to maintain his oxygen at home around 88-90%. He will follow-up with his heat treat puller in the office as directed next week. He will be discharged home in a stable condition. Physical exam: General: The patient is awake and alert, in no distress Eye: there is normal conjunctiva bilaterally. Neck: The neck is supple, there is no JVD. Cardiovascular: Normal S1-S2, no S3-S4, no murmurs. Respiratory: Lungs with mild end expiratory wheezing Gastrointestinal: Abdomen is soft, nontender Musculoskeletal: There is no pedal edema. Neurological:. Speech is normal. Skin: Skin is warm and dry Patient Condition at Discharge: Stable Plan - Discharge Summary Discharge Rx Participant: No New Discharge Prescriptions: New predniSONE 0 mg PO DIRECTED #30 tab Nicotine 14Mg/24Hr Patch [Habitrol] 1 patch TRANSDERM DAILY #30 patch Continue Omeprazole 20 mg PO DAILY metFORMIN HCL 500 mg PO AC-BID Albuterol Sulfate [Albuterol Sulfate Hfa] 2 puff INHALATION RT-Q4H PRN PRN Reason: Shortness Of Breath Or Wheezing Albuterol Nebulized [Ventolin Nebulized] 2.5 mg INHALATION RT-QID PRN PRN Reason: Shortness Of Breath Theophylline 24 Hour [Teddy-24] 400 mg PO DAILY 30 Days #30 cap.er.24h Metoprolol Tartrate [Lopressor] 50 mg PO AC-BID Apixaban [Eliquis] 5 mg PO BID #60 tab DULoxetine HCL [Cymbalta] 60 mg PO DAILY 30 Days #30 capsule. Ipratropium-Albuterol Nebulize [Duoneb 0.5 mg-3 mg/3 ml Soln] 3 ml INHALATION RT-QID 30 Days #120 ml Ipratropium-Albuterol Nebulize [Duoneb 0.5 mg-3 mg/3 ml Soln] 3 ml INHALATION RT-Q4H PRN ml PRN Reason: Shortness Of Breath Or Wheezing HYDROcodone/APAP 5-325MG [[place] 5-325] 1 tab PO BID Atorvastatin [Lipitor] 20 mg PO DAILY amLODIPine [Norvasc] 10 mg PO DAILY predniSONE [Deltasone] 20 mg PO DAILY Discharge Medication List Albuterol Nebulized [Ventolin Nebulized] 2.5 mg INHALATION RT-QID PRN 05/08/20 [History] Albuterol Sulfate [Albuterol Sulfate Hfa] 2 puff INHALATION RT-Q4H PRN 05/08/20 [History] Omeprazole 20 mg PO DAILY 05/08/20 [History] metFORMIN HCL 500 mg PO AC-BID 05/08/20 [History] Theophylline 24 Hour [Teddy-24] 400 mg PO DAILY 30 Days #30 cap.er.24h 05/16/20 [Rx] Metoprolol Tartrate [Lopressor] 50 mg PO AC-BID 07/07/20 [History] Apixaban [Eliquis] 5 mg PO BID #60 tab 07/08/20 [Rx] Atorvastatin [Lipitor] 20 mg PO DAILY 01/12/21 [History] amLODIPine [Norvasc] 10 mg PO DAILY 01/12/21 [History] DULoxetine HCL [Cymbalta] 60 mg PO DAILY 30 Days #30 irvin. 01/15/21 [Rx] Ipratropium-Albuterol Nebulize [Duoneb 0.5 mg-3 mg/3 ml Soln] 3 ml INHALATION RT-Q4H PRN ml 01/15/21 [Rx] Ipratropium-Albuterol Nebulize [Duoneb 0.5 mg-3 mg/3 ml Soln] 3 ml INHALATION RT-QID 30 Days #120 ml 01/15/21 [Rx] HYDROcodone/APAP 5-325MG [[place] 5-325] 1 tab PO BID 02/05/21 [History] predniSONE [Deltasone] 20 mg PO DAILY 02/05/21 [History] Nicotine 14Mg/24Hr Patch [Habitrol] 1 patch TRANSDERM DAILY #30 patch 02/07/21 [Rx] predniSONE 0 mg PO DIRECTED #30 tab 02/07/21 [Rx] Follow up Appointment(s)/Referral(s): Calvin Martin DO [Doctor of Osteopathic Medicine] - 1 Week Nonstaff,Physician [REFERRING] - 1-2 days Discharge Disposition: HOME SELF-CARE
== END 2021-02-07 10:57 | disposition home or self-care (01) ==
LOC: EC 08:40 → 6NMEDSUR 11:18
PROVIDERS: ADMIT Internal Medicine; ATTEND Internal Medicine
DX: J44.1 Chronic obstructive pulmonary disease with (acute) exacerbation (principal); J96.21 Acute and chronic respiratory failure with hypoxia; I11.0 Hypertensive heart disease with heart failure; I50.32 Chronic diastolic (congestive) heart failure; I48.20 Chronic atrial fibrillation, unspecified; E11.9 Type 2 diabetes mellitus without complications; F17.210 Nicotine dependence, cigarettes, uncomplicated; E11.42 Type 2 diabetes mellitus with diabetic polyneuropathy; E78.5 Hyperlipidemia, unspecified; K21.9 Gastro-esophageal reflux disease without esophagitis; M19.90 Unspecified osteoarthritis, unspecified site; B37.89 Other sites of candidiasis; F32.9 Major depressive disorder, single episode, unspecified; F41.9 Anxiety disorder, unspecified; F10.21 Alcohol dependence, in remission; H26.9 Unspecified cataract; G89.29 Other chronic pain; M25.552 Pain in left hip; M25.551 Pain in right hip; M25.562 Pain in left knee; M25.561 Pain in right knee; M25.522 Pain in left elbow; M25.521 Pain in right elbow; M25.512 Pain in left shoulder; M25.511 Pain in right shoulder; M79.672 Pain in left foot; E66.9 Obesity, unspecified; Z68.32 Body mass index [BMI] 32.0-32.9, adult; Z20.822 Contact with and (suspected) exposure to COVID-19; Z79.01 Long term (current) use of anticoagulants; Z79.891 Long term (current) use of opiate analgesic; Z79.84 Long term (current) use of oral hypoglycemic drugs; Z79.52 Long term (current) use of systemic steroids; Z79.899 Other long term (current) drug therapy; Z88.0 Allergy status to penicillin; Z88.1 Allergy status to other antibiotic agents; Z87.01 Personal history of pneumonia (recurrent); Z90.49 Acquired absence of other specified parts of digestive tract; Z98.890 Other specified postprocedural states; Z81.1 Family history of alcohol abuse and dependence
CPT/HCPCS: 96376 ×3; 96365; 96375; 99291; 36415; 94640 ×6; 93005; 83880; 80053; 80048; 82728; 83605; 83615; 83735; 80198; 85025; 85610; 85730; 86140; 84145; 87635; 71046; G0378 ×3; S4990 ×3; J2920 ×2; J2930 ×2; J1956

== ENCOUNTER 2021-05-01 22:32 | Inpatient (IN) | payer MEDICARE ==
[2021-05-01] MEDS ORDERED: ALBUTEROL NEBULIZED 2.5 MG/3 ML INHALATION STA (22:40)
[2021-05-01] MEDS ORDERED: LORazepam 2 MG/ML INJ IV STA (22:40)
[2021-05-01] MEDS ORDERED: methylPREDNISolone SOD SUCCI 125 MG/2 ML VIAL IV STA (22:40)
[2021-05-01] MEDS ORDERED: SODIUM CHLORIDE 0.9% 1,000 ML IV STA (22:40)
[2021-05-01] MEDS ORDERED: IPRATROPIUM 0.5 MG/2.5 ML NEBU INHALATION STA (22:40)
[2021-05-01] MEDS ORDERED: MORPHINE SULFATE 2 MG/ML SYRINGE IVP STA (22:41)
--- NOTE | 2021-05-01 23:12 | ED ---
SOB HPI - General Chief Complaint: Shortness of Breath Stated Complaint: SAMIR Time Seen by Provider: 05/01/21 22:40 Source: patient, EMS, RN notes reviewed, old records reviewed Mode of arrival: EMS Limitations: no limitations - History of Present Illness Initial Comments: This is a 70-year-old male to the ER for evaluation patient is brought in by EMS on BiPAP for severe COPD exacerbation. Patient is planning on a recent getting of covert vaccine. Patient denies any chest pain but feels significantly short of breath no fevers no travel history no sick contacts otherwise. Symptoms have been progressing significantly over the past 2 days MD Complaint: shortness of breath, cough -: days(s) (2) Severity: severe Severity scale (1-10): 9 Consistency: constant Improves With: nothing Worsens With: exertion Known History Of: COPD, congestive heart failure Context: recent URI, recent illness, other (recent COVID vaccine) Associated Symptoms: cough, sputum production, palpitations Treatments Prior to Arrival: oxygen, bronchodilator, NIPPV - Related Data Home Medications Medication Instructions Recorded Confirmed Albuterol Nebulized [Ventolin 2.5 mg INHALATION RT-QID PRN 05/08/20 02/05/21 Nebulized] Albuterol Sulfate [Albuterol 2 puff INHALATION RT-Q4H PRN 05/08/20 02/05/21 Sulfate Hfa] Omeprazole 20 mg PO DAILY 05/08/20 02/05/21 metFORMIN HCL 500 mg PO AC-BID 05/08/20 02/05/21 Metoprolol Tartrate [Lopressor] 50 mg PO AC-BID 07/07/20 02/05/21 Atorvastatin [Lipitor] 20 mg PO DAILY 01/12/21 02/05/21 amLODIPine [Norvasc] 10 mg PO DAILY 01/12/21 02/05/21 HYDROcodone/APAP 5-325MG [[place] 1 tab PO BID 02/05/21 02/05/21 5-325] predniSONE [Deltasone] 20 mg PO DAILY 02/05/21 02/05/21 Previous Rx's Medication Instructions Recorded Theophylline 24 Hour [Teddy-24] 400 mg PO DAILY 30 Days #30 05/16/20 cap.er.24h Apixaban [Eliquis] 5 mg PO BID #60 tab 07/08/20 DULoxetine HCL [Cymbalta] 60 mg PO DAILY 30 Days #30 01/15/21 capsule. Ipratropium-Albuterol Nebulize 3 ml INHALATION RT-Q4H PRN ml 01/15/21 [Duoneb 0.5 mg-3 mg/3 ml Soln] Ipratropium-Albuterol Nebulize 3 ml INHALATION RT-QID 30 Days 01/15/21 [Duoneb 0.5 mg-3 mg/3 ml Soln] #120 ml Nicotine 14Mg/24Hr Patch [Habitrol] 1 patch TRANSDERM DAILY #30 patch 02/07/21 predniSONE 0 mg PO DIRECTED #30 tab 02/07/21 Allergies Allergy/AdvReac Type Severity Reaction Status Date / Time doxycycline Allergy Anaphylaxis Verified 02/05/21 11:11 Penicillins Allergy Unknown Verified 02/05/21 11:11 Review of Systems ROS Statement: Those systems with pertinent positive or pertinent negative responses have been documented in the HPI. ROS Other: All systems not noted in ROS Statement are negative. Past Medical History Past Medical History: Atrial Fibrillation, Asthma, COPD, Diabetes Mellitus, GERD/Reflux, Hyperlipidemia, Hypertension, Osteoarthritis (OA), Pneumonia Additional Past Medical History / Comment(s): Afib RVR, home oxygen prn, bronchitis, pt states he is on metformin to prevent becoming diabetic, neuropathy bilateral feet/L hand, chronic pain back,/bilateral hips/knees/elbows and shoulders, L heel pain, FALLS, cataracts. History of Any Multi-Drug Resistant Organisms: None Reported Past Surgical History: Appendectomy Additional Past Surgical History / Comment(s): Colonoscopy Past Anesthesia/Blood Transfusion Reactions: No Reported Reaction Past Psychological History: Anxiety, Depression Smoking Status: Current every day smoker Past Alcohol Use History: Occasional Past Drug Use History: None Reported - Past Family History Father Additional Family Medical History / Comment(s): Father was an alcoholic but was able to quit drinking Mother Additional Family Medical History / Comment(s): Mother was an alcoholic. General Exam Limitations: no limitations General appearance: alert, in no apparent distress Head exam: Present: atraumatic, normocephalic, normal inspection Eye exam: Present: normal appearance, PERRL, EOMI. Absent: scleral icterus, conjunctival injection, periorbital swelling ENT exam: Present: normal exam, mucous membranes moist Neck exam: Present: normal inspection. Absent: tenderness, meningismus, lymphadenopathy Respiratory exam: Present: respiratory distress, wheezes, accessory muscle use, decreased breath sounds, prolonged expiratory. Absent: rales, rhonchi, stridor Cardiovascular Exam: Present: regular rate, normal rhythm, normal heart sounds. Absent: systolic murmur, diastolic murmur, rubs, gallop, clicks GI/Abdominal exam: Present: soft, normal bowel sounds. Absent: distended, tenderness, guarding, rebound, rigid Extremities exam: Present: normal inspection, full ROM, normal capillary refill. Absent: tenderness, pedal edema, joint swelling, calf tenderness Back exam: Present: normal inspection Neurological exam: Present: alert, oriented X3, CN II-XII intact Psychiatric exam: Present: normal affect, normal mood Skin exam: Present: warm, dry, intact, normal color. Absent: rash Course Vital Signs 05/01/21 05/01/21 05/01/21 22:36 22:54 23:09 Temperature 97.9 F Pulse Rate 100 104 H 95 Respiratory 24 20 Rate Blood Pressure 137/101 130/77 O2 Sat by Pulse 97 99 Oximetry 05/01/21 05/02/21 23:27 00:20 Temperature Pulse Rate 101 H Respiratory Rate Blood Pressure O2 Sat by Pulse 95 Oximetry - Reevaluation(s) Reevaluation #1: 05/02/21 01:00 Medical record is reviewed Medical Decision Making - Medical Decision Making 70 male to the ER for evaluation of severe COPD exacerbation and hypoxia. At this point patient will be admitted for further evaluation management regarding supportive care supplemental O2 and continued breathing treatments and steroids - Lab Data Result diagrams: 05/01/21 22:47 05/01/21 22:47 Lab Results 05/01/21 05/01/21 05/01/21 Range/Units 22:47 22:47 22:47 WBC 11.5 H (3.8-10.6) k/uL RBC 4.29 L (4.30-5.90) m/uL Hgb 13.5 (13.0-17.5) gm/dL Hct 40.4 (39.0-53.0) % MCV 94.0 (80.0-100.0) fL MCH 31.4 (25.0-35.0) pg MCHC 33.4 (31.0-37.0) g/dL RDW 15.1 (11.5-15.5) % Plt Count 247 (150-450) k/uL MPV 7.2 Neutrophils % 79 % Lymphocytes % 11 % Monocytes % 7 % Eosinophils % 1 % Basophils % 0 % Neutrophils # 9.0 H (1.3-7.7) k/uL Lymphocytes # 1.3 (1.0-4.8) k/uL Monocytes # 0.8 (0-1.0) k/uL Eosinophils # 0.1 (0-0.7) k/uL Basophils # 0.0 (0-0.2) k/uL PT 9.7 (9.0-12.0) sec INR 0.9 (<1.2) APTT 23.3 (22.0-30.0) sec Sodium 132 L (137-145) mmol/L Potassium 4.2 (3.5-5.1) mmol/L Chloride 94 L (98-107) mmol/L Carbon Dioxide 30 (22-30) mmol/L Anion Gap 8 mmol/L BUN 17 (9-20) mg/dL Creatinine 0.89 (0.66-1.25) mg/dL Est GFR (CKD-EPI)AfAm >90 (>60 ml/min/1.73 sqM) Est GFR (CKD-EPI)NonAf 86 (>60 ml/min/1.73 sqM) Glucose 155 H (74-99) mg/dL Plasma Lactic Acid Wes (0.7-2.0) mmol/L Calcium 8.9 (8.4-10.2) mg/dL Magnesium 2.3 (1.6-2.3) mg/dL Total Bilirubin 0.3 (0.2-1.3) mg/dL AST 21 (17-59) U/L ALT 17 (4-49) U/L Alkaline Phosphatase 59 (38-126) U/L Creatine Kinase 82 (55-170) U/L Troponin I (0.000-0.034) ng/mL NT-Pro-B Natriuret Pep pg/mL Total Protein 6.2 L (6.3-8.2) g/dL Albumin 3.9 (3.5-5.0) g/dL 05/01/21 05/01/21 05/01/21 Range/Units 22:47 22:47 22:47 WBC (3.8-10.6) k/uL RBC (4.30-5.90) m/uL Hgb (13.0-17.5) gm/dL Hct (39.0-53.0) % MCV (80.0-100.0) fL MCH (25.0-35.0) pg MCHC (31.0-37.0) g/dL RDW (11.5-15.5) % Plt Count (150-450) k/uL MPV Neutrophils % % Lymphocytes % % Monocytes % % Eosinophils % % Basophils % % Neutrophils # (1.3-7.7) k/uL Lymphocytes # (1.0-4.8) k/uL Monocytes # (0-1.0) k/uL Eosinophils # (0-0.7) k/uL Basophils # (0-0.2) k/uL PT (9.0-12.0) sec INR (<1.2) APTT (22.0-30.0) sec Sodium (137-145) mmol/L Potassium (3.5-5.1) mmol/L Chloride (98-107) mmol/L Carbon Dioxide (22-30) mmol/L Anion Gap mmol/L BUN (9-20) mg/dL Creatinine (0.66-1.25) mg/dL Est GFR (CKD-EPI)AfAm (>60 ml/min/1.73 sqM) Est GFR (CKD-EPI)NonAf (>60 ml/min/1.73 sqM) Glucose (74-99) mg/dL Plasma Lactic Acid Wes 1.3 (0.7-2.0) mmol/L Calcium (8.4-10.2) mg/dL Magnesium (1.6-2.3) mg/dL Total Bilirubin (0.2-1.3) mg/dL AST (17-59) U/L ALT (4-49) U/L Alkaline Phosphatase (38-126) U/L Creatine Kinase (55-170) U/L Troponin I <0.012 (0.000-0.034) ng/mL NT-Pro-B Natriuret Pep 597 pg/mL Total Protein (6.3-8.2) g/dL Albumin (3.5-5.0) g/dL - EKG Data -: EKG Interpreted by Me (EKG shows A. fib 91 QRS 14 QTC 460) - Radiology Data Radiology results: report reviewed (Chest x-rays negative for acute disease), image reviewed Critical Care Time Critical Care Time: Yes Total Critical Care Time: 31 Disposition Clinical Impression: COPD exacerbation, COPD with acute exacerbation, Hypoxia Disposition: ADMITTED IP TO THIS [facility] Condition: Fair Is patient prescribed a controlled substance at d/c from ED?: No Referrals: Elver Jackson MD [Primary Care Provider] - 1-2 days
[2021-05-01 23:26] LABS: Basophils % (A) 0 %; Eosinophils # (A) 0.1 k/uL (0-0.7); Eosinophils % (A) 1 %; HCT 40.4 % (39.0-53.0); HGB 13.5 gm/dL (13.0-17.5); Lymphocytes # (A) 1.3 k/uL (1.0-4.8); Lymphocytes % (A) 11 %; MCH 31.4 pg (25.0-35.0); MCHC 33.4 g/dL (31.0-37.0); Mean Platelet Volume 7.2; Monocytes # (A) 0.8 k/uL (0-1.0); Monocytes % (A) 7 %; Neutrophils % (A) 79 %; Platelet Count 247 k/uL (150-450); RBC 4.29 m/uL (4.30-5.90); RDW 15.1 % (11.5-15.5); WBC 11.5 k/uL (3.8-10.6)
[2021-05-01 23:35] LABS: INR 0.9 (<1.2); Partial Thromboplastin Time 23.3 sec (22.0-30.0); Prothrombin Time 9.7 sec (9.0-12.0)
--- NOTE | 2021-05-01 23:49 | XR ---
EXAMINATION TYPE: XR chest 1V portable DATE OF EXAM: 05/01/2021 COMPARISON: NONE HISTORY: Short of breath TECHNIQUE: Single view FINDINGS: There is no heart failure nor confluent pneumonic infiltrate. Costophrenic angles are clear . There are no hilar masses. There are chest leads. Bony thorax is intact. IMPRESSION: No active cardiopulmonary disease. No change.
[2021-05-01 23:53] LABS: ALT 17 U/L (4-49); AST 21 U/L (17-59); African American GFR (CKD) >90 (>60 ml/min/1.73 sqM); Albumin 3.9 g/dL (3.5-5.0); Alkaline Phosphatase 59 U/L (38-126); Anion Gap 8 mmol/L; Blood Urea Nitrogen 17 mg/dL (9-20); Calcium 8.9 mg/dL (8.4-10.2); Carbon Dioxide 30 mmol/L (22-30); Chloride 94 mmol/L (98-107); Creatine Kinase 82 U/L (55-170); Glucose 155 mg/dL (74-99); Magnesium 2.3 mg/dL (1.6-2.3); Non-African American GFR(CKD) 86 (>60 ml/min/1.73 sqM); Potassium 4.2 mmol/L (3.5-5.1); Sodium 132 mmol/L (137-145); Total Bilirubin 0.3 mg/dL (0.2-1.3); Total Protein 6.2 g/dL (6.3-8.2)
[2021-05-02] MEDS: SODIUM CHLORIDE 0.9% 1,000 ML IV SCH ×3 (02:19→21:33)
[2021-05-02] MEDS: IPRATROPIUM-ALBUTEROL 3 ML NEB INHALATION PRN ×4 (02:30→23:02)
[2021-05-02] MEDS: MORPHINE SULFATE 4 MG/ML SYRINGE IVP PRN ×3 (02:57→22:29)
[2021-05-02] MEDS: methylPREDNISolone SOD SUCCI 125 MG/2 ML VIAL IV SCH ×3 (07:19→17:46)
[2021-05-02] MEDS: ALBUTEROL NEBULIZED 2.5 MG/3 ML INHALATION SCH ×2 (08:08→11:40)
[2021-05-02] MEDS: FORMOTEROL FUMARATE 20 MCG/2 ML NEBU INHALATION SCH ×2 (08:33→19:43)
[2021-05-02] MEDS: BUDESONIDE 1 MG/2 ML NEBU INHALATION SCH ×2 (08:33→19:27)
[2021-05-02] MEDS ORDERED: IPRATROPIUM-ALBUTEROL 3 ML NEB INHALATION PRN (12:17)
[2021-05-02] MEDS: NICOTINE 14MG/24HR PATCH TRANSDERM SCH (12:20)
--- NOTE | 2021-05-02 12:53 | P.CNPUL ---
History of Present Illness Consult date: 05/02/21 Requesting physician: Victor Hugo Fagan Reason for consult: dyspnea, cough, COPD, hypoxemia Chief complaint: dyspnea, cough, wheezing History of present illness: This is a 70-year-old white male patient with past medical history of COPD, usually not oxygen dependent at baseline, current and ongoing history of smoking, still smoking around a pack a day, hypertension, hyperlipidemia, diabetes mellitus type II, chronic pain, anxiety and depression. Patient presented to the emergency department on 05/01/2021 with complaints of worsening shortness of breath, coughing, and wheezing. He was seen at an urgent care clinic yesterday in , she was prescribed a Z-Amish, and a prednisone taper. He states he took his first 2 pills of the Z-Amish, and first dose of prednisone 40 mg. Patient is blaming it on his recent COVID-19 booster shot 2 days prior. States he received a Pfizer booster shot at a [employer] 2 days ago, and shortly after started getting short of breath, coughing and wheezing, denies any fever or chills, denies any chest pain, no hemoptysis, no increased swelling in his bilateral lower extremities. Patient completed his initial COVID 19 vaccination with Moderna vaccine. Admission chest x-ray showed no active cardiopulmonary disease. Patient has been afebrile, his currently on 4 L of oxygen his pulse ox is 97%, he is A. fib with a controlled rate on the monitor, he is on Eliquis for anticoagulation. His admission blood work showed a white blood cell count of 11.5, hemoglobin of 13.5, sodium is 132, potassium is 4.2, chloride is 94, CO2 30, BUN is 17, creatinine 0.89, troponin is less than 0.012, proBNP was 597. Review of Systems All systems: negative Constitutional: Denies chills, Denies fever Eyes: denies blurred vision, denies pain Ears, nose, mouth and throat: Denies headache, Denies sore throat Cardiovascular: Denies chest pain, Denies shortness of breath Respiratory: Reports congestion, Reports cough, Reports dyspnea, Reports wheezing Gastrointestinal: Denies abdominal pain, Denies diarrhea, Denies nausea, Denies vomiting Musculoskeletal: Denies myalgias Integumentary: Denies pruritus, Denies rash Neurological: Denies numbness, Denies weakness Psychiatric: Denies anxiety, Denies depression Endocrine: Denies fatigue, Denies weight change Past Medical History Past Medical History: Atrial Fibrillation, Asthma, COPD, Diabetes Mellitus, GERD/Reflux, Hyperlipidemia, Hypertension, Osteoarthritis (OA), Pneumonia Additional Past Medical History / Comment(s): Afib RVR, home oxygen prn, bronchitis, pt states he is on metformin to prevent becoming diabetic, neuropathy bilateral feet/L hand, chronic pain back,/bilateral hips/knees/elbows and shoulders, L heel pain, FALLS, cataracts. History of Any Multi-Drug Resistant Organisms: None Reported Past Surgical History: Appendectomy Additional Past Surgical History / Comment(s): Colonoscopy Past Anesthesia/Blood Transfusion Reactions: No Reported Reaction Past Psychological History: Anxiety, Depression Smoking Status: Current every day smoker Past Alcohol Use History: Occasional Past Drug Use History: None Reported - Past Family History Father Additional Family Medical History / Comment(s): Father was an alcoholic but was able to quit drinking Mother Additional Family Medical History / Comment(s): Mother was an alcoholic. Medications and Allergies Home Medications Medication Instructions Recorded Confirmed Type Albuterol Nebulized [Ventolin 2.5 mg INHALATION RT-QID PRN 05/08/20 05/02/21 History Nebulized] Albuterol Sulfate [Albuterol 2 puff INHALATION RT-QID PRN 05/08/20 05/02/21 History Sulfate Hfa] Omeprazole 20 mg PO DAILY 05/08/20 05/02/21 History metFORMIN HCL 500 mg PO BID 05/08/20 05/02/21 History Theophylline 24 Hour [[place]dy-24] 400 mg PO DAILY 30 Days #30 05/16/20 05/02/21 Rx cap.er.24h Metoprolol Tartrate [Lopressor] 50 mg PO BID 07/07/20 05/02/21 History Apixaban [Eliquis] 5 mg PO BID #60 tab 07/08/20 05/02/21 Rx Atorvastatin [Lipitor] 20 mg PO DAILY 01/12/21 05/02/21 History amLODIPine [Norvasc] 10 mg PO DAILY 01/12/21 05/02/21 History HYDROcodone/APAP 5-325MG [[place] 1 tab PO TID PRN 02/05/21 05/02/21 History 5-325] Azithromycin [Zithromax Z-pack (6 See Taper PO DAILY 05/02/21 05/02/21 History tabs)] Budesonide/Formoterol Fumarate 2 puff INHALATION RT-BID 05/02/21 05/02/21 History [Symbicort 160-4.5 Mcg Inhaler] Furosemide [Lasix] 40 mg PO BID@0900,1600 05/02/21 05/02/21 History Ibuprofen [Motrin] 800 mg PO TID PRN 05/02/21 05/02/21 History Ipratropium-Albuterol Nebulize 3 ml INHALATION RT-QID PRN 05/02/21 05/02/21 History [Duoneb 0.5 mg-3 mg/3 ml Soln] Nicotine 21Mg/24Hr Patch [Habitrol] 1 patch TRANSDERM DAILY 05/02/21 05/02/21 History Potassium Chloride ER [K-Dur 20] 20 meq PO TID 05/02/21 05/02/21 History Spironolactone [Aldactone] 25 mg PO DAILY 05/02/21 05/02/21 History predniSONE [Deltasone] 40 mg PO DAILY 05/02/21 05/02/21 History Allergies Allergy/AdvReac Type Severity Reaction Status Date / Time doxycycline Allergy Anaphylaxis Verified 05/02/21 10:20 Penicillins Allergy Anaphylaxis Verified 05/02/21 10:20 Physical Exam Vitals: Vital Signs Temp Pulse Resp BP Pulse Ox 05/02/21 11:50 96 05/02/21 11:39 90 05/02/21 11:30 98.4 F 92 18 149/72 97 05/02/21 08:50 104 H 05/02/21 08:42 96 05/02/21 08:41 96 05/02/21 08:35 102 H 05/02/21 08:22 90 05/02/21 08:09 98 05/02/21 07:00 98.2 F 98 22 149/72 96 05/02/21 04:30 90 24 96 05/02/21 02:42 91 05/02/21 02:32 85 05/02/21 02:27 89 24 135/68 97 05/02/21 01:00 90 24 94 L 05/02/21 00:20 95 05/01/21 23:27 101 H 05/01/21 23:09 95 20 130/77 99 05/01/21 22:54 104 H 05/01/21 22:36 97.9 F 100 24 137/101 97 Intake and Output 05/01/21 05/02/21 05/02/21 22:59 06:59 14:59 Other: Weight 110.223 kg GENERAL EXAM: Alert, pleasant, 70-year-old white male, sitting up in the chair in the emergency department, currently on 4 L of oxygen pulse ox of 97%, audibly wheezy, comfortable in no apparent distress. HEAD: Normocephalic/atraumatic. EYES: Normal reaction of pupils, equal size. Conjunctiva pink, sclera white. NOSE: Clear with pink turbinates. THROAT: No erythema or exudates. NECK: No masses, no JVD, no thyroid enlargement, no adenopathy. CHEST: No chest wall deformity. Symmetrical expansion. LUNGS: Equal air entry with diffuse wheezes CVS: Irregular rate and rhythm, normal S1 and S2, no gallops, no murmurs, no ru bs ABDOMEN: Soft, nontender. No hepatosplenomegaly, normal bowel sounds, no guarding or rigidity. EXTREMITIES: No clubbing, no edema, there is chronic venous stasis changes to bilateral lower extremities, with discoloration of the skin of bilateral legs. no cyanosis, 2+ pulses and upper and lower extremities. MUSCULOSKELETAL: Muscle strength and tone normal. SPINE: No scoliosis or deformity SKIN: No rashes CENTRAL NERVOUS SYSTEM: Alert and oriented -3. No focal deficits, tone is normal in all 4 extremities. PSYCHIATRIC: Alert and oriented -3. Appropriate affect. Intact judgment and insight. Results - Laboratory Findings CBC and BMP: 05/01/21 22:47 05/01/21 22:47 PT/INR, D-dimer PT 9.7 sec (9.0-12.0) 05/01/21 22:47 INR 0.9 (<1.2) 05/01/21 22:47 Abnormal lab findings: Abnormal Labs 05/01/21 05/01/21 22:47 22:47 WBC 11.5 H RBC 4.29 L Neutrophils # 9.0 H Sodium 132 L Chloride 94 L Glucose 155 H Total Protein 6.2 L - Diagnostic Findings Chest x-ray: report reviewed, image reviewed Additional studies: EKG reviewed Assessment and Plan Plan: Assessment: #1. Acute on chronic dyspnea related to acute exacerbation of COPD. Chest x- ray showed no acute pulmonary process #2. Completed COVID 19 vaccination with Moderna vaccine, status post Booster shot a few days ago with Pfizer vaccine #3. Chronic and ongoing history of smoking, patient is smoking half a pack a day #4. Acute hypoxic respiratory failure related to acute exacerbation of COPD, usually wears oxygen only on as-needed basis at home #5. Chronic A. fib on Eliquis #6. Chronic diastolic heart failure with no evidence of exacerbation #7. Type 2 diabetes mellitus with diabetic neuropathy #8. Essential hypertension #9. Chronic pain syndrome #10. Anxiety/depression #11. Hyperlipidemia Plan: Continue nebulized bronchodilators, We'll add azithromycin Continue IV steroids Added Pulmicort and Perforomist Chest x-ray reviewed showing no evidence of pulmonary process We'll continue to follow Time with Patient: Greater than 30
[2021-05-02] MEDS: APIXABAN 5 MG TAB PO SCH ×2 (13:34→21:27)
[2021-05-02] MEDS: THEOPHYLLINE 24 HOUR 400 MG CAP.ER.24H PO SCH (13:34)
[2021-05-02] MEDS: HYDROcodone/APAP 5-325MG 1 EACH TAB PO PRN ×2 (13:35→21:27)
[2021-05-02] MEDS: AZITHROMYCIN 500 MG TAB PO SCH (13:35)
[2021-05-02] MEDS: SPIRONOLACTONE 25 MG TAB PO SCH (13:35)
[2021-05-02] MEDS: FUROSEMIDE 40 MG TAB PO SCH (14:54)
[2021-05-02] MEDS: IPRATROPIUM-ALBUTEROL 3 ML NEB INHALATION SCH ×2 (15:52→19:26)
[2021-05-02 16:52] LABS: Glucose,Whole Blood 219 mg/dL (75-99)
[2021-05-02] MEDS: INSULIN ASPART (NovoLOG) 100 UNIT/ML VIAL SQ SCH ×2 (17:45→22:31)
[2021-05-02 21:17] LABS: Glucose,Whole Blood 147 mg/dL (75-99)
[2021-05-02] MEDS: metFORMIN 500 MG TAB PO SCH (21:27)
[2021-05-02] MEDS: METOPROLOL TARTRATE 50 MG TAB PO SCH (21:27)
--- NOTE | 2021-05-02 23:50 | P.HPIM ---
History of Present Illness H&P Date: 05/02/21 Chief Complaint: Shortness of breath Mr. Villela is a 70-year-old male with a past medical history of COPD on 2 to 3 L of oxygen at home, atrial fibrillation, diabetes mellitus, hypertension, hyperlipidemia, GERD, osteoarthritis, chronic low back pain coming in the hospital with the chief complaint of difficulty in breathing. Patient was recently seen in an urgent care clinic where he was prescribed Z-Amish and tapering dose of steroid, he states that he took couple of his medication doses and still was having difficulty in breathing along with wheezing and so came in for further evaluation. Patient states that he received his third dose of [employer] booster COVID-19 vaccine couple of days back. And since then he noticed increased difficulty in breathing along with cough and wheezing. Patient denies having any chest pain or palpitations. He states that he tried to use his inhalers at home but did not show any improvement in his symptoms. Patient den ies having any abdominal pain nausea vomiting or diarrhea. No dysuria or hematuria. Patient denies having any swelling of his lower extremities. He denies having any recent sick contacts or travel. In the ED at the time of admission patient's vitals temperature 97.9, heart rate 100, respiratory rate 24, blood pressure 137/101, saturating at 97% on 4 L of nasal cannula. Patient had a chest x-ray done showing no acute cardiopulmonary process and an EKG done showing atrial fibrillation. And on reviewing his labs white count of 11.5, hemoglobin 13.5, platelets 247. Sodium 132, potassium 4.2, chloride 94, bicarb 30, BUN 17, creatinine 0.89. Troponin less than 0.012. Albumin 3.9. Review of Systems REVIEW OF SYSTEMS: CONSTITUTIONAL: No fever, no malaise, no fatigue. HEENT: No headache, no neck stiffness, no blurring of vision CARDIOVASCULAR: No chest pain, no palpitations PULMONARY: As per HPI GASTROINTESTINAL: No Abdominal pain nausea vomiting or diarrhea NEUROLOGICAL: No weakness of extremities HEMATOLOGICAL: Denies any bleeding or petechiae. GENITOURINARY: Denies any burning micturition, frequency, or urgency. MUSCULOSKELETAL/RHEUMATOLOGICAL: Multiple joint pains ENDOCRINE: Denies polyuria polydipsia or heat or cold intolerance The rest of the 14-point review of systems is negative. Past Medical History Past Medical History: Atrial Fibrillation, Asthma, COPD, Diabetes Mellitus, GERD/Reflux, Hyperlipidemia, Hypertension, Osteoarthritis (OA), Pneumonia Additional Past Medical History / Comment(s): Afib RVR, home oxygen prn, bronchitis, pt states he is on metformin to prevent becoming diabetic, neuropathy bilateral feet/L hand, chronic pain back,/bilateral hips/knees/elbows and shoulders, L heel pain, FALLS, cataracts. History of Any Multi-Drug Resistant Organisms: None Reported Past Surgical History: Appendectomy Additional Past Surgical History / Comment(s): Colonoscopy Past Anesthesia/Blood Transfusion Reactions: No Reported Reaction Past Psychological History: Anxiety, Depression Smoking Status: Current every day smoker Past Alcohol Use History: Occasional Past Drug Use History: None Reported - Past Family History Father Additional Family Medical History / Comment(s): Father was an alcoholic but was able to quit drinking Mother Additional Family Medical History / Comment(s): Mother was an alcoholic. Daughter(s) Additional Family Medical History / Comment(s): Liver cancer Medications and Allergies Home Medications Medication Instructions Recorded Confirmed Type RX: Albuterol Nebulized [Ventolin 2.5 mg INHALATION RT-QID PRN 05/08/20 05/02/21 History Nebulized] RX: Albuterol Sulfate [Albuterol 2 puff INHALATION RT-QID PRN 05/08/20 05/02/21 History Sulfate Hfa] RX: Omeprazole 20 mg PO DAILY 05/08/20 05/02/21 History RX: metFORMIN HCL 500 mg PO BID 05/08/20 05/02/21 History RX: Theophylline 24 Hour [[place]eddy-24] 400 mg PO DAILY 30 Days #30 05/16/20 05/02/21 Rx cap.er.24h RX: Metoprolol Tartrate [Lopressor] 50 mg PO BID 07/07/20 05/02/21 History RX: Apixaban [Eliquis] 5 mg PO BID #60 tab 07/08/20 05/02/21 Rx RX: Atorvastatin [Lipitor] 20 mg PO DAILY 01/12/21 05/02/21 History RX: amLODIPine [Norvasc] 10 mg PO DAILY 01/12/21 05/02/21 History RX: HYDROcodone/APAP 5-325MG 1 tab PO TID PRN 02/05/21 05/02/21 History [[place] 5-325] Azithromycin [Zithromax Z-pack (6 See Taper PO DAILY 05/02/21 05/02/21 History tabs)] Budesonide/Formoterol Fumarate 2 puff INHALATION RT-BID 05/02/21 05/02/21 History [Symbicort 160-4.5 Mcg Inhaler] Furosemide [Lasix] 40 mg PO BID@0900,1600 05/02/21 05/02/21 History Ibuprofen [Motrin] 800 mg PO TID PRN 05/02/21 05/02/21 History Nicotine 21Mg/24Hr Patch [Habitrol] 1 patch TRANSDERM DAILY 05/02/21 05/02/21 History Potassium Chloride ER [K-Dur 20] 20 meq PO TID 05/02/21 05/02/21 History RX: Ipratropium-Albuterol Nebulize 3 ml INHALATION RT-QID PRN 05/02/21 05/02/21 History [Duoneb 0.5 mg-3 mg/3 ml Soln] Spironolactone [Aldactone] 25 mg PO DAILY 05/02/21 05/02/21 History predniSONE [Deltasone] 40 mg PO DAILY 05/02/21 05/02/21 History Allergies Allergy/AdvReac Type Severity Reaction Status Date / Time doxycycline Allergy Anaphylaxis Verified 05/02/21 10:20 Penicillins Allergy Anaphylaxis Verified 05/02/21 10:20 Physical Exam Vitals: Vital Signs Temp Pulse Resp BP Pulse Ox 05/02/21 14:15 108 H 20 149/72 99 05/02/21 11:50 96 05/02/21 11:39 90 05/02/21 11:30 98.4 F 92 18 149/72 97 05/02/21 08:50 104 H 05/02/21 08:42 96 05/02/21 08:41 96 05/02/21 08:35 102 H 05/02/21 08:22 90 05/02/21 08:09 98 05/02/21 07:00 98.2 F 98 22 149/72 96 05/02/21 04:30 90 24 96 05/02/21 02:42 91 05/02/21 02:32 85 05/02/21 02:27 89 24 135/68 97 05/02/21 01:00 90 24 94 L 05/02/21 00:20 95 08/20/21 23:27 101 H 05/01/21 23:09 95 20 130/77 99 05/01/21 22:54 104 H 05/01/21 22:36 97.9 F 100 24 137/101 97 PHYSICAL EXAMINATION: GENERAL: Comfortably lying up in the bed appears to be no acute distress. Chronically ill-appearing HEENT: Pupils are round and equally reacting to light. EOMI. No scleral icterus. No conjunctival pallor. CARDIOVASCULAR: S1 and S2 present. No murmurs, rubs, or gallops. PULMONARY: Bilateral wheezin and coarse breath sounds in all lung [place] ABDOMEN: Soft,non -tender, normal bowel sounds. No guarding or rigidity. MUSCULOSKELETAL: No joint swelling or deformity. EXTREMITIES: No edema NEUROLOGICAL: Gross neurological examination did not reveal any focal deficits. SKIN:No rash Results CBC & Chem 7: 05/01/21 22:47 05/01/21 22:47 Labs: Abnormal Lab Results - Last 24 Hours (Table) 05/01/21 05/01/21 Range/Units 22:47 22:47 WBC 11.5 H (3.8-10.6) k/uL RBC 4.29 L (4.30-5.90) m/uL Neutrophils # 9.0 H (1.3-7.7) k/uL Sodium 132 L (137-145) mmol/L Chloride 94 L (98-107) mmol/L Glucose 155 H (74-99) mg/dL Total Protein 6.2 L (6.3-8.2) g/dL Assessment and Plan Assessment: ASSESSMENT Acute COPD exacerbation Status post third dose of booster shot of Pfizer Covid 19 vaccine Acute on chronic hypoxic respiratory failure History of atrial fibrillation on anticoagulation with Eliquis Hypertension Hyperlipidemia Chronic pain syndrome Type 2 diabetes mellitus Diabetic neuropathy Current active smoker Anxiety with depression Chronic low back pain History of multiple joint osteoarthritis History of cataract surgery PLAN patient has been started on breathing treatments and Solu-Medrol. He has been initiated on anticoagulation with Eliquis for his history of atrial fibrillation. Patient has been restarted on his home medications. Patient wants to be a no code. Overall prognosis is guarded secondary to chronic multiple medical conditions further recommendations to follow depending on the progress of the patient.
[2021-05-03] MEDS: guaiFENesin 600 MG TABLET.ER PO SCH ×3 (01:08→22:43)
[2021-05-03] MEDS: methylPREDNISolone SOD SUCCI 125 MG/2 ML VIAL IV SCH ×5 (01:08→23:52)
[2021-05-03] MEDS: IPRATROPIUM-ALBUTEROL 3 ML NEB INHALATION PRN (03:26)
[2021-05-03 06:53] LABS: Glucose,Whole Blood 150 mg/dL (75-99)
[2021-05-03] MEDS: SODIUM CHLORIDE 0.9% 1,000 ML IV SCH ×2 (07:18→18:05)
[2021-05-03] MEDS: IPRATROPIUM-ALBUTEROL 3 ML NEB INHALATION SCH ×4 (07:48→19:47)
[2021-05-03] MEDS: FORMOTEROL FUMARATE 20 MCG/2 ML NEBU INHALATION SCH ×2 (07:48→20:02)
[2021-05-03] MEDS: BUDESONIDE 1 MG/2 ML NEBU INHALATION SCH ×2 (07:48→19:47)
[2021-05-03] MEDS: INSULIN ASPART (NovoLOG) 100 UNIT/ML VIAL SQ SCH ×4 (07:49→22:43)
[2021-05-03] MEDS: NICOTINE 14MG/24HR PATCH TRANSDERM SCH (07:49)
[2021-05-03] MEDS: amLODIPine 10 MG TAB PO SCH (07:50)
[2021-05-03] MEDS: ATORVASTATIN 20 MG TAB PO SCH (07:50)
[2021-05-03] MEDS: FUROSEMIDE 40 MG TAB PO SCH ×2 (07:50→17:15)
[2021-05-03] MEDS: THEOPHYLLINE 24 HOUR 400 MG CAP.ER.24H PO SCH (07:50)
[2021-05-03] MEDS: metFORMIN 500 MG TAB PO SCH ×2 (07:50→22:43)
[2021-05-03] MEDS: METOPROLOL TARTRATE 50 MG TAB PO SCH ×2 (07:50→22:43)
[2021-05-03] MEDS: AZITHROMYCIN 500 MG TAB PO SCH (07:51)
[2021-05-03] MEDS: APIXABAN 5 MG TAB PO SCH ×2 (07:51→22:43)
[2021-05-03] MEDS: HYDROcodone/APAP 5-325MG 1 EACH TAB PO PRN ×3 (07:51→23:51)
[2021-05-03] MEDS: SPIRONOLACTONE 25 MG TAB PO SCH (08:09)
[2021-05-03] MEDS: PANTOPRAZOLE 40 MG TABLET PO SCH (08:09)
[2021-05-03 11:41] LABS: Glucose,Whole Blood 143 mg/dL (75-99)
--- NOTE | 2021-05-03 11:41 | P.PN ---
Subjective Progress Note Date: 05/03/21 This is a 70-year-old white male patient with past medical history of COPD, usu ally not oxygen dependent at baseline, current and ongoing history of smoking, still smoking around a pack a day, hypertension, hyperlipidemia, diabetes mellitus type II, chronic pain, anxiety and depression. Patient presented to the emergency department on 05/01/2021 with complaints of worsening shortness of breath, coughing, and wheezing. He was seen at an urgent care clinic yesterday in , she was prescribed a Z-Amish, and a prednisone taper. He states he took his first 2 pills of the Z-Amish, and first dose of prednisone 40 mg. Patient is blaming it on his recent COVID-19 booster shot 2 days prior. States he received a Pfizer booster shot at a [employer] 2 days ago, and shortly after started getting short of breath, coughing and wheezing, denies any fever or chills, denies any chest pain, no hemoptysis, no increased swelling in his bilateral lower extremities. Patient completed his initial COVID 19 vaccination with Moderna vaccine. Admission chest x-ray showed no active cardiopulmonary disease. Patient has been afebrile, his currently on 4 L of oxygen his pulse ox is 97%, he is A. fib with a controlled rate on the monitor, he is on Eliquis for anticoagulation. His admission blood work showed a white blood cell count of 11.5, hemoglobin of 13.5, sodium is 132, potassium is 4.2, chloride is 94, CO2 30, BUN is 17, creatinine 0.89, troponin is less than 0.012, proBNP was 597. On today's evaluation of 05/03/2021, the patient is doing essentially the same with probably some slight improvement. Still bronchospastic and wheezy. He remains on a combination of bronchodilators steroids. No altered mentation. Objective - Vital Signs Vital signs: Vital Signs Temp 97.7 F 05/03/21 07:23 Pulse 93 05/03/21 11:34 Resp 18 05/03/21 07:23 BP 151/77 05/03/21 07:23 Pulse Ox 97 05/03/21 07:48 Intake & Output 05/02/21 05/03/21 05/03/21 18:59 06:59 18:59 Output Total 600 Balance -600 Weight 110.223 kg Output: Urine 600 Other: Voiding Method Urinal Urinal # Voids 3 - Exam GENERAL EXAM: Alert, pleasant, 70-year-old white male, sitting up in the chair in the emergency department, currently on 4 L of oxygen pulse ox of 97%, audibly wheezy, comfortable in no apparent distress. HEAD: Normocephalic/atraumatic. EYES: Normal reaction of pupils, equal size. Conjunctiva pink, sclera white. NOSE: Clear with pink turbinates. THROAT: No erythema or exudates. NECK: No masses, no JVD, no thyroid enlargement, no adenopathy. CHEST: No chest wall deformity. Symmetrical expansion. LUNGS: Equal air entry with diffuse wheezes CVS: Irregular rate and rhythm, normal S1 and S2, no gallops, no murmurs, no rubs ABDOMEN: Soft, nontender. No hepatosplenomegaly, normal bowel sounds, no guarding or rigidity. EXTREMITIES: No clubbing, no edema, there is chronic venous stasis changes to bilateral lower extremities, with discoloration of the skin of bilateral legs. no cyanosis, 2+ pulses and upper and lower extremities. MUSCULOSKELETAL: Muscle strength and tone normal. SPINE: No scoliosis or deformity SKIN: No rashes CENTRAL NERVOUS SYSTEM: Alert and oriented -3. No focal deficits, tone is normal in all 4 extremities. PSYCHIATRIC: Alert and oriented -3. Appropriate affect. Intact judgment and insight. - Labs CBC & Chem 7: 05/01/21 22:47 05/01/21 22:47 Labs: Abnormal Lab Results - Last 24 Hours (Table) 05/02/21 05/02/21 05/03/21 Range/Units 16:49 21:15 06:51 POC Glucose (mg/dL) 219 H 147 H 150 H (75-99) mg/dL Assessment and Plan Plan: #1. Acute on chronic dyspnea related to acute exacerbation of COPD. Chest x- ray showed no acute pulmonary process #2. Completed COVID 19 vaccination with Moderna vaccine, status post Booster shot a few days ago with Pfizer vaccine #3. Chronic and ongoing history of smoking, patient is smoking half a pack a day #4. Acute hypoxic respiratory failure related to acute exacerbation of COPD, usually wears oxygen only on as-needed basis at home #5. Chronic A. fib on Eliquis #6. Chronic diastolic heart failure with no evidence of exacerbation #7. Type 2 diabetes mellitus with diabetic neuropathy #8. Essential hypertension #9. Chronic pain syndrome #10. Anxiety/depression #11. Hyperlipidemia Plan: Slight improvement compared to yesterday. We'll continue bronchodilators. We'll continue steroids. We'll continue to follow.
[2021-05-03] MEDS: MORPHINE SULFATE 4 MG/ML SYRINGE IVP PRN ×2 (11:49→22:44)
[2021-05-03 13:40] LABS: Hemoglobin A1C 5.7 % (4.0-6.0)
[2021-05-03 16:41] LABS: Glucose,Whole Blood 193 mg/dL (75-99)
[2021-05-03 20:46] LABS: Glucose,Whole Blood 142 mg/dL (75-99)
[2021-05-04] MEDS: SODIUM CHLORIDE 0.9% 1,000 ML IV SCH ×2 (01:24→13:48)
--- NOTE | 2021-05-04 01:42 | P.PN ---
Subjective Progress Note Date: 05/03/21 Principal diagnosis: COPD Exacerbation Mr. Villela is a 70-year-old male with a past medical history of COPD on 2 to 3 L of oxygen at home, atrial fibrillation, diabetes mellitus, hypertension, hyperlipidemia, GERD, osteoarthritis, chronic low back pain coming in the hospital with the chief complaint of difficulty in breathing. Patient was recently seen in an urgent care clinic where he was prescribed Z-Amish and tapering dose of steroid, he states that he took couple of his medication doses and still was having difficulty in breathing along with wheezing and so came in for further evaluation. Patient states that he received his third dose of [employer] booster COVID-19 vaccine couple of days back. And since then he noticed increased difficulty in breathing along with cough and wheezing. Patient denies having any chest pain or palpitations. He states that he tried to use his inhalers at home but did not show any improvement in his symptoms. Patient pearl es having any abdominal pain nausea vomiting or diarrhea. No dysuria or hematuria. Patient denies having any swelling of his lower extremities. He denies having any recent sick contacts or travel. In the ED at the time of admission patient's vitals temperature 97.9, heart rate 100, respiratory rate 24, blood pressure 137/101, saturating at 97% on 4 L of nasal cannula. Patient had a chest x-ray done showing no acute cardiopulmonary process and an EKG done showing atrial fibrillation. And on reviewing his labs white count of 11.5, hemoglobin 13.5, platelets 247. Sodium 132, potassium 4.2, chloride 94, bicarb 30, BUN 17, creatinine 0.89. Troponin less than 0.012. Albumin 3.9. On 05/03/2021 -patient is sitting in a chair by the bedside. He still complains of difficulty in breathing and wheezing. Patient also complains of ongoing chronic low back pain. He states that he has cough but is not able to bring up anything as the secretions are very thick. Patient denies having any chest pain or palpitations. No abdominal pain nausea vomiting or diarrhea. On reviewing his vitals temperature 97.4, heart rate between 90s 200s, respiratory rate 17, blood pressure 107/60, saturating at 92% on 2 L of oxygen. No new labs from this morning. Patient's medications - [facility] DuoNeb breathing treatments, Norvasc, Lipitor, was Pulmicort, Lasix, Solu-Medrol, Lopressor, pain, Protonix, spironolactone. Objective - Vital Signs Vital signs: Vital Signs Temp 97.7 F 05/03/21 07:23 Pulse 101 H 05/03/21 11:45 Resp 18 05/03/21 07:23 BP 151/77 05/03/21 07:23 Pulse Ox 97 05/03/21 07:48 Intake & Output 05/02/21 05/03/21 05/03/21 18:59 06:59 18:59 Output Total 600 Balance -600 Weight 110.223 kg Output: Urine 600 Other: Voiding Method Urinal Urinal # Voids 3 - Exam GENERAL: Comfortably lying up in the bed appears to be no acute distress. Chronically ill-appearing HEENT: Pupils are round and equally reacting to light. EOMI. No scleral icterus. No conjunctival pallor. CARDIOVASCULAR: S1 and S2 present. No murmurs, rubs, or gallops. PULMONARY: Bilateral wheezin and coarse breath sounds in all lung mclaughlin ABDOMEN: Soft,non -tender, normal bowel sounds. No guarding or rigidity. MUSCULOSKELETAL: No joint swelling or deformity. EXTREMITIES: No edema NEUROLOGICAL: Gross neurological examination did not reveal any focal deficits. SKIN:No rash - Labs CBC & Chem 7: 05/01/21 22:47 05/01/21 22:47 Labs: Abnormal Lab Results - Last 24 Hours (Table) 05/02/21 05/02/21 05/03/21 Range/Units 16:49 21:15 06:51 POC Glucose (mg/dL) 219 H 147 H 150 H (75-99) mg/dL 05/03/21 Range/Units 11:39 POC Glucose (mg/dL) 143 H (75-99) mg/dL Assessment and Plan Assessment: ASSESSMENT Acute COPD exacerbation Status post third dose of booster shot of Pfizer Covid 19 vaccine Acute on chronic hypoxic respiratory failure History of atrial fibrillation on anticoagulation with Eliquis Hypertension Hyperlipidemia Chronic pain syndrome Type 2 diabetes mellitus Diabetic neuropathy Current active smoker Anxiety with depression Chronic low back pain History of multiple joint osteoarthritis History of cataract surgery PLAN patient has been started on breathing treatments and Solu-Medrol. He has been initiated on anticoagulation with Eliquis for his history of atrial fibrillation. Patient has been restarted on his home medications. Patient wants to be a no code. Mucinex to help with his secretions. Overall prognosis is guarded secondary to chronic multiple medical conditions further recommendations to follow depending on the progress of the patient.
[2021-05-04] MEDS: methylPREDNISolone SOD SUCCI 125 MG/2 ML VIAL IV SCH ×3 (06:14→18:00)
[2021-05-04 07:02] LABS: Glucose,Whole Blood 138 mg/dL (75-99)
[2021-05-04] MEDS: INSULIN ASPART (NovoLOG) 100 UNIT/ML VIAL SQ SCH ×3 (07:17→16:56)
[2021-05-04] MEDS: FUROSEMIDE 40 MG TAB PO SCH ×2 (07:18→16:52)
[2021-05-04] MEDS: THEOPHYLLINE 24 HOUR 400 MG CAP.ER.24H PO SCH (07:18)
[2021-05-04] MEDS: guaiFENesin 600 MG TABLET.ER PO SCH (07:18)
[2021-05-04] MEDS: APIXABAN 5 MG TAB PO SCH (07:18)
[2021-05-04] MEDS: NICOTINE 14MG/24HR PATCH TRANSDERM SCH (07:18)
[2021-05-04] MEDS: ATORVASTATIN 20 MG TAB PO SCH (07:18)
[2021-05-04] MEDS: AZITHROMYCIN 500 MG TAB PO SCH (07:18)
[2021-05-04] MEDS: METOPROLOL TARTRATE 50 MG TAB PO SCH (07:18)
[2021-05-04] MEDS: SPIRONOLACTONE 25 MG TAB PO SCH (07:18)
[2021-05-04] MEDS: amLODIPine 10 MG TAB PO SCH (07:19)
[2021-05-04] MEDS: PANTOPRAZOLE 40 MG TABLET PO SCH (07:19)
[2021-05-04] MEDS: HYDROcodone/APAP 5-325MG 1 EACH TAB PO PRN ×2 (07:26→16:55)
[2021-05-04 07:48] VITALS: RESP 18; TEMP 97.5
[2021-05-04] MEDS: IPRATROPIUM-ALBUTEROL 3 ML NEB INHALATION SCH ×3 (08:03→16:10)
[2021-05-04] MEDS: BUDESONIDE 1 MG/2 ML NEBU INHALATION SCH (08:03)
[2021-05-04] MEDS: FORMOTEROL FUMARATE 20 MCG/2 ML NEBU INHALATION SCH (08:03)
--- NOTE | 2021-05-04 08:19 | XR ---
EXAMINATION TYPE: XR chest 1V portable DATE OF EXAM: 05/04/2021 Comparison: 05/01/2021 Clinical History: 70-year-old male ICU follow-up, protocol Findings: Heart upper limits of normal in size. The peripheral lung opacities likely relate to portable techniq ue and patient body habitus. Underlying subtle peripheral infiltrates would be difficult to exclude b ut the appearance is unchanged from 05/01/2021. No sizable pleural effusion. Mild hyperinflation. Impression: Suspect underlying COPD. Peripheral opacities likely related largely to portable technique and patien t body habitus. The appearance is unchanged from 05/01/2021. Subtle underlying infiltrates would be di fficult to exclude.
[2021-05-04 09:19] LABS: Basophils # (A) 0.01 X 10*3/uL (0.00-0.10); Basophils % (A) 0.1 %; Eosinophils # (A) 0 X 10*3/uL (0.04-0.35); Eosinophils % (A) 0 %; HCT 42.6 % (39.6-50.0); HGB 13.8 g/dL (13.0-17.0); Lymphocytes # (A) 0.37 X 10*3/uL (0.90-5.00); Lymphocytes % (A) 3.9 %; MCH 30.5 pg (27.0-32.0); MCHC 32.4 g/dL (32.0-37.0); Mean Platelet Volume 9.8 fL (9.5-12.2); Monocytes # (A) 0.44 X 10*3/uL (0.20-1.00); Monocytes % (A) 4.6 %; Neutrophils # (A) 8.67 X 10*3/uL (1.80-7.70); Neutrophils % (A) 90.9 %; Platelet Count 260 X 10*3/uL (140-440); RBC 4.53 X 10*6/uL (4.40-5.60); RDW 14.6 % (11.5-14.5); WBC 9.54 X 10*3/uL (4.50-10.00)
[2021-05-04 11:27] LABS: Glucose,Whole Blood 145 mg/dL (75-99)
[2021-05-04 12:23] LABS: Anion Gap 12.9 mmol/L (4.00-12.00); BUN/Creat Ratio 21.43 Ratio (12.00-20.00); Calcium 9.1 mg/dL (8.7-10.3); Carbon Dioxide 30.1 mmol/L (21.6-31.8); Non-African American GFR(CKD) 94.9 (60.0-200.0); Potassium 3.9 mmol/L (3.5-5.5)
[2021-05-04 14:22] VITALS: BMI 32.9
[2021-05-04 14:38] VITALS: BP 121/65
[2021-05-04 16:22] VITALS: PULSE 96
--- NOTE | 2021-05-04 16:37 | P.PN ---
Subjective Progress Note Date: 05/04/21 Principal diagnosis: Acute exacerbation of COPD This is a 70-year-old white male patient with past medical history of COPD, usually not oxygen dependent at baseline, current and ongoing history of smoking, still smoking around a pack a day, hypertension, hyperlipidemia, diabetes mellitus type II, chronic pain, anxiety and depression. Patient presented to the emergency department on 05/01/2021 with complaints of worsening shortness of breath, coughing, and wheezing. He was seen at an urgent care clinic yesterday in , she was prescribed a Z-Amish, and a prednisone taper. He states he took his first 2 pills of the Z-Amish, and first dose of prednisone 40 mg. Patient is blaming it on his recent COVID-19 booster shot 2 days prior. States he received a Pfizer booster shot at a [employer] 2 days ago, and shortly after started getting short of breath, coughing and wheezing, denies any fever or chills, denies any chest pain, no hemoptysis, no increased swelling in his bilateral lower extremities. Patient completed his initial COVID 19 vaccination with Moderna vaccine. Admission chest x-ray showed no active cardiopulmonary disease. Patient has been afebrile, his currently on 4 L of oxygen his pulse ox is 97%, he is A. fib with a controlled rate on the monitor, he is on Eliquis for anticoagulation. His admission blood work showed a white blood cell count of 11.5, hemoglobin of 13.5, sodium is 132, potassium is 4.2, chloride is 94, CO2 30, BUN is 17, creatinine 0.89, troponin is less than 0.012, proBNP was 597. On today's evaluation of 05/03/2021, the patient is doing essentially the same with probably some slight improvement. Still bronchospastic and wheezy. He remains on a combination of bronchodilators steroids. No altered mentation. On 05/04/2001 patient seen in follow-up on medical surgical floor. He states he is more than 50% improved in terms of his breathing, less dyspneic, less bronchospastic, he remains on 3 L of oxygen pulse ox is 97%. Vital signs have been stable, he has had no fever or chills. His follow-up chest x-ray today shows peripheral opacities possibly related to portable technique, but overall is unchanged compared to most previous chest x-ray. Patient has been treated with high-dose IV steroids, neb was bronchodilators, he is on Pulmicort and Perforomist, he is on home dose Lasix. Is on home dose theophylline. No co mplaint of chest discomfort, no hemoptysis, he sitting up in the recliner, breathing comfortably, he states he is improving, he would like to go home today. Objective - Vital Signs Vital signs: Vital Signs Temp 97.5 F L 05/04/21 14:00 Pulse 96 05/04/21 16:20 Resp 18 05/04/21 14:00 BP 121/65 05/04/21 14:00 Pulse Ox 97 05/04/21 14:00 Intake & Output 05/03/21 05/04/21 05/04/21 18:59 06:59 18:59 Weight 110.223 kg Other: Voiding Method Toilet Urinal # Voids 2 3 - Exam GENERAL EXAM: Alert, very pleasant, 70-year-old white male, sitting up in the recliner, on 3 L of oxygen pulse ox 97% comfortable in no apparent distress. HEAD: Normocephalic/atraumatic. EYES: Normal reaction of pupils, equal size. Conjunctiva pink, sclera white. NOSE: Clear with pink turbinates. THROAT: No erythema or exudates. NECK: No masses, no JVD, no thyroid enlargement, no adenopathy. CHEST: No chest wall deformity. Symmetrical expansion. LUNGS: Equal air entry with diffuse wheezes CVS: Regular rate and rhythm, normal S1 and S2, no gallops, no murmurs, no rubs ABDOMEN: Soft, nontender. No hepatosplenomegaly, normal bowel sounds, no guarding or rigidity. EXTREMITIES: No clubbing, no edema, no cyanosis, 2+ pulses and upper and lower extremities. MUSCULOSKELETAL: Muscle strength and tone normal. SPINE: No scoliosis or deformity SKIN: No rashes CENTRAL NERVOUS SYSTEM: Alert and oriented -3. No focal deficits, tone is normal in all 4 extremities. PSYCHIATRIC: Alert and oriented -3. Appropriate affect. Intact judgment and insight. - Labs CBC & Chem 7: 05/04/21 05:50 05/04/21 05:50 Labs: Abnormal Lab Results - Last 24 Hours (Table) 08/22/21 08/22/21 08/23/21 Range/Units 16:39 20:45 05:50 RDW 14.6 H (11.5-14.5) % Immature Gran # 0.05 H (0.00-0.04) X 10*3/uL Neutrophils # 8.67 H (1.80-7.70) X 10*3/uL Lymphocytes # 0.37 L (0.90-5.00) X 10*3/uL Eosinophils # 0 L (0.04-0.35) X 10*3/uL Chloride (96-109) mmol/L Anion Gap (4.00-12.00) mmol/L BUN/Creatinine Ratio (12.00-20.00) Ratio Glucose (70-110) mg/dL POC Glucose (mg/dL) 193 H 142 H (75-99) mg/dL 05/04/21 05/04/21 05/04/21 Range/Units 05:50 06:53 11:24 RDW (11.5-14.5) % Immature Gran # (0.00-0.04) X 10*3/uL Neutrophils # (1.80-7.70) X 10*3/uL Lymphocytes # (0.90-5.00) X 10*3/uL Eosinophils # (0.04-0.35) X 10*3/uL Chloride 94 L (96-109) mmol/L Anion Gap 12.90 H (4.00-12.00) mmol/L BUN/Creatinine Ratio 21.43 H (12.00-20.00) Ratio Glucose 143 H (70-110) mg/dL POC Glucose (mg/dL) 138 H 145 H (75-99) mg/dL Assessment and Plan Plan: Assessment: #1. Acute on chronic dyspnea related to acute exacerbation of COPD. Chest x- ray showed no acute pulmonary process #2. Completed COVID 19 vaccination with Moderna vaccine, status post Booster shot a few days ago with Pfizer vaccine #3. Chronic and ongoing history of smoking, patient is smoking half a pack a day #4. Acute hypoxic respiratory failure related to acute exacerbation of COPD, usually wears oxygen only on as-needed basis at home #5. Chronic A. fib on Eliquis #6. Chronic diastolic heart failure with no evidence of exacerbation #7. Type 2 diabetes mellitus with diabetic neuropathy #8. Essential hypertension #9. Chronic pain syndrome #10. Anxiety/depression #11. Hyperlipidemia Plan: Today's chest x-ray has been reviewed Clinical patient is improving, Vital signs are stable Patient is requesting to go home He was recommended to wait another 24 hours However if he insists on going home it would be okay from pulmonary perspective He can complete Z-Amish for another 3 days, prednisone taper, he can resume his breathing treatments He has home oxygen Time with Patient: Less than 30
[2021-05-04 16:46] LABS: Glucose,Whole Blood 163 mg/dL (75-99)
== END 2021-05-04 17:55 | disposition home or self-care (01) | DRG 291 ==
LOC: EC 22:32 → 4SSUR 05-02 00:58
PROVIDERS: ADMIT Hospitalist; ATTEND Hospitalist
DX: I11.0 Hypertensive heart disease with heart failure (principal); J96.01 Acute respiratory failure with hypoxia; J96.21 Acute and chronic respiratory failure with hypoxia; I48.20 Chronic atrial fibrillation, unspecified; J44.1 Chronic obstructive pulmonary disease with (acute) exacerbation; E11.40 Type 2 diabetes mellitus with diabetic neuropathy, unspecified; I50.32 Chronic diastolic (congestive) heart failure; E78.5 Hyperlipidemia, unspecified; F17.200 Nicotine dependence, unspecified, uncomplicated; F41.8 Other specified anxiety disorders; G89.4 Chronic pain syndrome; Z79.01 Long term (current) use of anticoagulants; Z79.51 Long term (current) use of inhaled steroids; Z79.84 Long term (current) use of oral hypoglycemic drugs; Z79.899 Other long term (current) drug therapy; Z80.0 Family history of malignant neoplasm of digestive organs; Z81.1 Family history of alcohol abuse and dependence; K21.9 Gastro-esophageal reflux disease without esophagitis; M19.90 Unspecified osteoarthritis, unspecified site; M54.5 Low back pain
CPT/HCPCS: 36415; 71045; 80048; 80053; 82550; 83036; 83605; 83735; 83880; 84484; 85025; 85610; 85730; 93005; 94640; 94760; 96361; 96374; 96375; 99291

== ENCOUNTER 2021-06-06 18:39 | Inpatient (IN) | payer MEDICARE ==
[2021-06-06] MEDS ORDERED: IPRATROPIUM-ALBUTEROL 3 ML NEB INHALATION STA (18:49)
[2021-06-06] MEDS ORDERED: NICOTINE 21MG/24HR PATCH TRANSDERM STA (19:01)
--- NOTE | 2021-06-06 19:03 | ED ---
SOB HPI - General Chief Complaint: Shortness of Breath Stated Complaint: Shortness of breath Time Seen by Provider: 06/06/21 18:39 Source: patient, EMS, RN notes reviewed Mode of arrival: EMS Limitations: no limitations - History of Present Illness Initial Comments: This is a 70-year-old male with a known history of COPD and A. fib who presented by EMS to [facility] shortness of breath. He did have hypoxemia he did require BiPAP. He was transferred here for further care. He does relatively well with BiPAP at 1 no BiPAP was present he is very hypoxic. He denies any chest pain fevers chills nausea vomiting sweats she is still a smoker. He also has chronic atrial fibrillation he denies any overt chest pain. MD Complaint: shortness of breath - Related Data Home Medications Medication Instructions Recorded Confirmed Albuterol Nebulized [Ventolin 2.5 mg INHALATION RT-QID PRN 05/08/20 06/06/21 Nebulized] Albuterol Sulfate [Albuterol 2 puff INHALATION RT-QID PRN 05/08/20 06/06/21 Sulfate Hfa] Omeprazole 20 mg PO DAILY 05/08/20 06/06/21 metFORMIN HCL 500 mg PO BID 05/08/20 06/06/21 Metoprolol Tartrate [Lopressor] 50 mg PO BID 07/07/20 06/06/21 Atorvastatin [Lipitor] 20 mg PO DAILY 01/12/21 06/06/21 amLODIPine [Norvasc] 10 mg PO DAILY 01/12/21 06/06/21 HYDROcodone/APAP 5-325MG [[place] 1 tab PO TID PRN 02/05/21 06/06/21 5-325] Budesonide/Formoterol Fumarate 2 puff INHALATION RT-BID 05/02/21 06/06/21 [Symbicort 160-4.5 Mcg Inhaler] Furosemide [Lasix] 40 mg PO BID@0900,1600 05/02/21 06/06/21 Ibuprofen [Motrin] 800 mg PO TID PRN 05/02/21 06/06/21 Ipratropium-Albuterol Nebulize 3 ml INHALATION RT-QID PRN 05/02/21 06/06/21 [Duoneb 0.5 mg-3 mg/3 ml Soln] Nicotine 21Mg/24Hr Patch [Habitrol] 1 patch TRANSDERM DAILY 05/02/21 06/06/21 Potassium Chloride ER [K-Dur 20] 20 meq PO TID 05/02/21 06/06/21 Spironolactone [Aldactone] 25 mg PO DAILY 05/02/21 06/06/21 Fluticasone Nasal Galva [Flonase 2 spr EA NOSTRIL DAILY 06/06/21 06/06/21 Nasal Galva] Levofloxacin [Levaquin] 750 mg PO DAILY 06/06/21 06/06/21 methylPREDNISolone [Medrol Dose See Taper PO DAILY 06/06/21 06/06/21 Pack] Previous Rx's Medication Instructions Recorded Theophylline 24 Hour [Teddy-24] 400 mg PO DAILY 30 Days #30 05/16/20 cap.er.24h Apixaban [Eliquis] 5 mg PO BID #60 tab 07/08/20 Allergies Allergy/AdvReac Type Severity Reaction Status Date / Time doxycycline Allergy Anaphylaxis Verified 06/06/21 20:18 Penicillins Allergy Anaphylaxis Verified 06/06/21 20:18 Review of Systems ROS Statement: Those systems with pertinent positive or pertinent negative responses have been documented in the HPI. ROS Other: All systems not noted in ROS Statement are negative. Past Medical History Past Medical History: Atrial Fibrillation, Asthma, COPD, Diabetes Mellitus, GERD/Reflux, Hyperlipidemia, Hypertension, Osteoarthritis (OA), Pneumonia Additional Past Medical History / Comment(s): Afib RVR, home oxygen prn, bronchitis, pt states he is on metformin to prevent becoming diabetic, neuropathy bilateral feet/L hand, chronic pain back,/bilateral hips/knees/elbows and shoulders, L heel pain, FALLS, cataracts. History of Any Multi-Drug Resistant Organisms: None Reported Past Surgical History: Appendectomy Additional Past Surgical History / Comment(s): Colonoscopy Past Anesthesia/Blood Transfusion Reactions: No Reported Reaction Past Psychological History: Anxiety, Depression Smoking Status: Current every day smoker Past Alcohol Use History: Occasional Past Drug Use History: None Reported - Past Family History Father Family Medical History: Congestive Heart Failure (CHF), COPD Additional Family Medical History / Comment(s): Father was an alcoholic but was able to quit drinking Mother Family Medical History: Congestive Heart Failure (CHF), COPD Additional Family Medical History / Comment(s): Mother was an alcoholic. Daughter(s) Additional Family Medical History / Comment(s): Liver cancer General Exam - General Exam Comments Initial Comments: This is a well-developed well-nourished awake alert oriented 3 male Limitations: no limitations General appearance: alert, anxious, in distress Head exam: Present: atraumatic, normocephalic, normal inspection Eye exam: Present: normal appearance, PERRL, EOMI. Absent: scleral icterus, conjunctival injection, periorbital swelling ENT exam: Present: mucous membranes dry Neck exam: Present: normal inspection, full ROM, other (Historyofbruits). Absent: tenderness, meningismus, lymphadenopathy Respiratory exam: Present: wheezes, decreased breath sounds. Absent: respiratory distress, rales, rhonchi, stridor Cardiovascular Exam: Present: tachycardia, irregular rhythm. Absent: systolic murmur, diastolic murmur, rubs, gallop, clicks GI/Abdominal exam: Present: soft, normal bowel sounds. Absent: distended, tenderness, guarding, rebound, rigid Extremities exam: Present: normal inspection, full ROM, normal capillary refill. Absent: tenderness, pedal edema, joint swelling, calf tenderness Back exam: Present: normal inspection Neurological exam: Present: alert, oriented X3, CN II-XII intact Psychiatric exam: Present: normal affect, normal mood Skin exam: Present: warm, dry, intact, normal color. Absent: rash Course Vital Signs 06/06/21 06/06/21 06/06/21 18:42 19:01 19:12 Temperature 98.2 F Pulse Rate 105 H 107 H 102 H Respiratory 32 H Rate Blood Pressure 131/89 O2 Sat by Pulse 100 Oximetry Medical Decision Making - Medical Decision Making I did review the materials from [facility]. Patient is improving after the treatment rendered to either but also in this facility. He will be admitted I did discuss findings with the patient as well as with Dr. Munoz's group. Pulmonary medicine will be consulted. The presentation is consistent with a COPD exacerbation and chronic atrial fibrillation. - EKG Data -: EKG Interpreted by Me EKG Comments: Atrial fibrillation rate of 104 QRS 90 QT since QTC 344/[address]-T wave changes Disposition Clinical Impression: Encounter for observation due to foreign body in airway, Chronic atrial fibrillation Disposition: ADMITTED IP TO THIS HOSP Condition: Fair Referrals: None,Stated [Primary Care Provider] - 1-2 days
[2021-06-06] MEDS ORDERED: IPRATROPIUM-ALBUTEROL 3 ML NEB INHALATION PRN (20:35)
[2021-06-06] MEDS ORDERED: IBUPROFEN 800 MG TAB PO PRN (20:35)
[2021-06-06] MEDS: APIXABAN 5 MG TAB PO SCH (23:49)
[2021-06-06] MEDS: metFORMIN 500 MG TAB PO SCH (23:49)
[2021-06-06] MEDS: METOPROLOL TARTRATE 50 MG TAB PO SCH (23:49)
[2021-06-06] MEDS: methylPREDNISolone SOD SUCCI 125 MG/2 ML VIAL IV SCH (23:50)
[2021-06-06] MEDS: SODIUM CHLORIDE 0.9% 1,000 ML IV SCH (23:50)
[2021-06-06] MEDS: POTASSIUM CHLORIDE ER 20 MEQ TAB.ER PO SCH (23:50)
[2021-06-06] MEDS: HYDROcodone/APAP 5-325MG 1 EACH TAB PO PRN (23:51)
[2021-06-07] MEDS: IPRATROPIUM-ALBUTEROL 3 ML NEB INHALATION PRN ×5 (00:45→20:14)
[2021-06-07] MEDS ORDERED: LORazepam 2 MG/ML INJ IV PRN (01:54)
[2021-06-07] MEDS: methylPREDNISolone SOD SUCCI 125 MG/2 ML VIAL IV SCH ×4 (07:11→23:07)
[2021-06-07] MEDS: metFORMIN 500 MG TAB PO SCH ×2 (07:58→20:55)
[2021-06-07] MEDS: APIXABAN 5 MG TAB PO SCH ×2 (07:58→20:54)
[2021-06-07] MEDS: amLODIPine 10 MG TAB PO SCH (07:59)
[2021-06-07] MEDS: HYDROcodone/APAP 5-325MG 1 EACH TAB PO PRN ×3 (07:59→23:06)
[2021-06-07] MEDS: METOPROLOL TARTRATE 50 MG TAB PO SCH ×2 (07:59→20:55)
[2021-06-07] MEDS: PANTOPRAZOLE 40 MG TABLET PO SCH (07:59)
[2021-06-07] MEDS: POTASSIUM CHLORIDE ER 20 MEQ TAB.ER PO SCH ×3 (07:59→20:55)
[2021-06-07] MEDS: ATORVASTATIN 20 MG TAB PO SCH (07:59)
[2021-06-07] MEDS: NICOTINE 21MG/24HR PATCH TRANSDERM SCH (07:59)
[2021-06-07] MEDS: SPIRONOLACTONE 25 MG TAB PO SCH (07:59)
[2021-06-07] MEDS: FUROSEMIDE 40 MG TAB PO SCH ×2 (07:59→15:43)
[2021-06-07] MEDS: LEVOFLOXACIN 750 MG TAB PO SCH (08:00)
[2021-06-07] MEDS: THEOPHYLLINE 24 HOUR 400 MG CAP.ER.24H PO SCH (08:00)
[2021-06-07] MEDS ORDERED: SYMBICORT 160-4.5 MCG INHALER INHALATION SCH (08:00)
[2021-06-07] MEDS: FLUTICASONE 50MCG/SPRAY NASAL 16GM EA NOSTRIL SCH (08:09)
[2021-06-07] MEDS: SODIUM CHLORIDE 0.9% 1,000 ML IV SCH (08:10)
--- NOTE | 2021-06-07 12:50 | P.CNPUL ---
History of Present Illness Consult date: 06/07/21 Requesting physician: Gisela Munoz Reason for consult: dyspnea, cough, COPD, hypoxemia, abnormal CXR/CT Chief complaint: Shortness of breath. History of present illness: Pulmonary/critical care consultation dated 06/07/2021. This is a 70-year-old male with a history of COPD from ongoing tobacco use and nicotine addiction, who initially presented to the emergency department at [facility], and was transferred here to our facility for further treatment and management. The patient has a history of atrial fibrillation as well. It's not clear to me why the patient was transferred from the outside hospital. The patient states that for the last number of days, he's been having some issues with increasing shortness of breath, cough, and clear to white phlegm production. No fever or chills. No nausea, vomiting, diarrhea, or abdominal pain. No complaints. The patient denied any chest pain or pressure. The patient was seen in the emergency room by Dr. Calvin jones with a diagnosis of COPD exacerbation. Currently, the patient's on a couple of liters of oxygen. He was recently in the hospital back in April. He is fully vaccinated against coronavirus. In addition to COPD and atrial fibrillation, the patient has a history of diabetes, acid reflux disease, hyperlipidemia, hypertension, and chronic nicotine dependence. There are no labs or x-rays from this institution. I will order a chest x-ray and labs on this patient. Review of Systems REVIEW OF SYSTEMS: CONSTITUTIONAL: [Negative.] NEUROLOGIC: [ Negative.] HEENT: [ Negative.] CARDIAC: [Negative.] PULMONARY: Shortness of breath, chest congestion, cough, and clear to white phlegm production. GI: [Negative.] : [Negative.] RHEUMATOLOGIC: [ Negative.] IMMUNOLOGIC: [ Negative.] ENDOCRINE: [Negative. ] DERMATOLOGIC: [Negative.] Past Medical History Past Medical History: Atrial Fibrillation, Asthma, COPD, Diabetes Mellitus, GERD/Reflux, Hyperlipidemia, Hypertension, Osteoarthritis (OA), Pneumonia Additional Past Medical History / Comment(s): Afib RVR, home oxygen prn, bronchitis, pt states he is on metformin to prevent becoming diabetic, neuropathy bilateral feet/L hand, chronic pain back,/bilateral hips/knees/elbows and shoulders, L heel pain, FALLS, cataracts. History of Any Multi-Drug Resistant Organisms: None Reported Past Surgical History: Appendectomy Additional Past Surgical History / Comment(s): Colonoscopy Past Anesthesia/Blood Transfusion Reactions: No Reported Reaction Past Psychological History: Anxiety, Depression Additional Psychological History / Comment(s): Pt resides alone. He has [facility] home care. He has a cane he uses prn. He has a nebulizer and home oxygen. He can drive. Smoking Status: Current every day smoker Past Alcohol Use History: Occasional Additional Past Alcohol Use History / Comment(s): Pt started smoking in 1969 and smokes a ppd or a little more. He states he has hx of ETOH abuse but has not drank in 2 years. Past Drug Use History: None Reported Additional Drug Use History / Comment(s): Patient reports being a heavy marijuana smoker in the 1969" - Past Family History Father Family Medical History: Congestive Heart Failure (CHF), COPD Additional Family Medical History / Comment(s): Father was an alcoholic but was able to quit drinking Mother Family Medical History: Congestive Heart Failure (CHF), COPD Additional Family Medical History / Comment(s): Mother was an alcoholic. Daughter(s) Additional Family Medical History / Comment(s): Liver cancer Medications and Allergies Home Medications Medication Instructions Recorded Confirmed Type Albuterol Nebulized [Ventolin 2.5 mg INHALATION RT-QID PRN 05/08/20 06/06/21 History Nebulized] Albuterol Sulfate [Albuterol 2 puff INHALATION RT-QID PRN 05/08/20 06/06/21 History Sulfate Hfa] Omeprazole 20 mg PO DAILY 05/08/20 06/06/21 History metFORMIN HCL 500 mg PO BID 05/08/20 06/06/21 History Theophylline 24 Hour [[place]-24] 400 mg PO DAILY 30 Days #30 05/16/20 06/06/21 Rx cap.er.24h Metoprolol Tartrate [Lopressor] 50 mg PO BID 07/07/20 06/06/21 History Apixaban [Eliquis] 5 mg PO BID #60 tab 07/08/20 06/06/21 Rx Atorvastatin [Lipitor] 20 mg PO DAILY 01/12/21 06/06/21 History amLODIPine [Norvasc] 10 mg PO DAILY 01/12/21 06/06/21 History HYDROcodone/APAP 5-325MG [[place] 1 tab PO TID PRN 02/05/21 06/06/21 History 5-325] Budesonide/Formoterol Fumarate 2 puff INHALATION RT-BID 05/02/21 06/06/21 History [Symbicort 160-4.5 Mcg Inhaler] Furosemide [Lasix] 40 mg PO BID@0900,1600 05/02/21 06/06/21 History Ibuprofen [Motrin] 800 mg PO TID PRN 05/02/21 06/06/21 History Ipratropium-Albuterol Nebulize 3 ml INHALATION RT-QID PRN 05/02/21 06/06/21 History [Duoneb 0.5 mg-3 mg/3 ml Soln] Nicotine 21Mg/24Hr Patch [Habitrol] 1 patch TRANSDERM DAILY 05/02/21 06/06/21 History Potassium Chloride ER [K-Dur 20] 20 meq PO TID 05/02/21 06/06/21 History Spironolactone [Aldactone] 25 mg PO DAILY 05/02/21 06/06/21 History Fluticasone Nasal [place] [Flonase 2 spr EA NOSTRIL DAILY 06/06/21 06/06/21 History Nasal [place]] Levofloxacin [Levaquin] 750 mg PO DAILY 06/06/21 06/06/21 History methylPREDNISolone [Medrol Dose See Taper PO DAILY 06/06/21 06/06/21 History Pack] Allergies Allergy/AdvReac Type Severity Reaction Status Date / Time doxycycline Allergy Anaphylaxis Verified 06/06/21 20:18 Penicillins Allergy Anaphylaxis Verified 06/06/21 20:18 Physical Exam Osteopathic Statement: *. No significant issues noted on an osteopathic structural exam other than those noted in the History and Physical/Consult. Vitals: Vital Signs Temp Pulse Pulse Resp BP BP Pulse Ox 06/07/21 11:46 96 06/07/21 11:40 95 06/07/21 08:48 96 06/07/21 08:37 99 98 06/07/21 07:00 96.8 F L 95 17 147/85 100 06/07/21 01:43 96.5 F L 95 14 118/76 98 06/07/21 01:03 99 06/07/21 00:52 94 06/06/21 23:38 97.7 F 98 22 146/73 98 09/25/21 23:24 92 24 06/06/21 21:00 96 18 135/67 99 06/06/21 19:12 102 H 06/06/21 19:01 107 H 06/06/21 18:42 98.2 F 105 H 32 H 131/89 100 Intake and Output 06/06/21 06/07/21 06/07/21 22:59 06:59 14:59 Intake Total 500 Output Total 500 Balance 0 Intake: Intake, IV Titration 500 Amount Sodium Chloride 0.9% 1, 500 000 ml @ 100 mls/hr IV . Q10H [facility] Rx#:[id number] Output: Urine 500 Other: Voiding Method Urinal Urinal # Voids 2 Weight 108.409 kg 108.409 kg No acute distress, oriented 3. No use of accessory muscles or conversational dyspnea. She does have a very wet congested cough. Currently on 4 L nasal cannula with a saturation of 98%. HEENT examination is grossly unremarkable. Neck supple. Full range of motion. No adenopathy thyromegaly or neck vein distention. Cardiovascular examination reveals regular rhythm rate. S1-S2 normal. No S3 or S4. No discernible murmur noted. Heart sounds are very distant. Heart rate 96 bpm. Lungs reveal coarse bilateral expiratory rhonchi and expiratory wheezes. There is prolongation on forced maneuver. Adventitious lung sounds are more prominent on forced maneuver. There are no crackles. Breath sounds are equal bilaterally. Abdomen soft bowel sounds are heard. No masses or tenderness. Extremities are intact. No cyanosis or clubbing. Minimal edema noted. Skin is without rash or lesion. Neurologic examination is brief but nonfocal. Results - Diagnostic Findings Chest x-ray: image reviewed Assessment and Plan Assessment: Acute exacerbation of COPD. Ongoing tobacco use with nicotine addiction. History of atrial fibrillation. History of osteoarthritis. Chronic hypoxemic respiratory failure. History of cataracts. History of gastroesophageal reflux disease. History of diabetes mellitus, with diabetic neuropathy. History of hypertension. History of hyperlipidemia. Plan: Plan dated 06/07/2021. The patient is placed on Pulmicort 1 mg mixed with formoterol 20 g, twice a day. The patient also getting duo nebs 4 times a day and when necessary. He's placed on Levaquin 750 mg daily, Solu-Medrol 60 mg every 6 hours, and a 21 mg nicotine patch. In addition, he takes theophylline, 400 mg daily. Additional recommendations and suggestions are forthcoming. Prognosis is guarded. The patient is counseled about the importance of smoking cessation and was recently in the hospital for a similar presentation. We will continue to follow and make recommendations where appropriate. Time with Patient: Greater than 30
[2021-06-07 14:52] LABS: Glucose,Whole Blood 212 mg/dL (75-99)
[2021-06-07] MEDS ORDERED: ALPRAZolam 0.25 MG TAB PO PRN (16:39)
--- NOTE | 2021-06-07 17:27 | XR ---
EXAMINATION TYPE: XR chest 1V portable DATE OF EXAM: 06/07/2021 COMPARISON: 05/04/2021 HISTORY: Pneumonia TECHNIQUE: FINDINGS: There is no heart failure nor confluent pneumonic infiltrate. Costophrenic angles are clear . Heart size is normal. Bony thorax is intact. IMPRESSION: No active cardiopulmonary disease. Normal heart.
[2021-06-07 18:07] LABS: Glucose,Whole Blood 170 mg/dL (75-99)
[2021-06-07] MEDS: INSULIN ASPART (NovoLOG) 100 UNIT/ML VIAL SQ SCH ×2 (18:09→23:07)
--- NOTE | 2021-06-07 19:08 | HP ---
HISTORY AND PHYSICAL CHIEF COMPLAINT: Shortness of breath. HISTORY OF PRESENT ILLNESS: This 70-year-old gentleman with a past medical history of atrial fibrillation, history of asthma, COPD, diabetes mellitus, GERD, hypertension, hyperlipidemia, DJD, being followed by Dr. Jackson recently, was complaining of shortness of breath. The patient apparently continues to smoke and the patient had significant shortness of breath. The patient was taken to [facility] and admitted for evaluation. On BiPAP, the patient's saturation was sufficient. Currently the patient is on intensive bronchodilators, steroids and antibiotics and Dr. Martin is following the patient closely also. There is no history of any fever, rigors or chills. No history of headache, loss of consciousness, seizures at this time. PAST MEDICAL HISTORY: History of asthma, COPD, diabetes mellitus, GERD, hypertension, hyperlipidemia, DJD. MEDICATIONS: Home medications include Medrol Dosepak, metformin, Norvasc, Teddy-24, Aldactone, K-Dur, omeprazole, albuterol metoprolol, Levaquin, DuoNeb, Motrin, [place], Lasix, Flonase, fumarate, Lipitor, Eliquis, albuterol, Ventolin. Doses are reviewed. ALLERGIES: DOXYCYCLINE, PENICILLIN. FAMILY HISTORY: History of CHF, COPD. SOCIAL HISTORY: History of heroin apparently in the chart. REVIEW OF SYSTEMS: ENT: No diminished hearing. No diminished vision. CARDIOVASCULAR SYSTEM: As mentioned earlier. RESPIRATORY SYSTEM: As mentioned earlier. GI: As mentioned earlier. : No dysuria. NERVOUS SYSTEM: No numbness, weakness. ALLERGY/IMMUNOLOGY: No asthma or hay fever. MUSCULOSKELETAL: As mentioned earlier. HEMATOLOGY/ONCOLOGY: No history of anemia. ENDOCRINE: As mentioned earlier. CONSTITUTIONAL: As mentioned earlier. DERMATOLOGY: Negative. RHEUMATOLOGY: Negative. PSYCHIATRY: As mentioned earlier. PHYSICAL EXAMINATION: The patient is alert and oriented x3. Pulse is 91, blood pressure 139/64, respiration 18, temperature 97.8, pulse ox 97% on room air. HEENT: Conjunctivae normal. NECK: No jugular venous distention. CARDIOVASCULAR: S1, S2 muffled. RESPIRATION: Breath sounds diminished at the bases. Bilateral scattered rhonchi and crackles. Expiratory wheezing also present. ABDOMEN: Soft, nontender. No mass palpable. LEGS: No edema. No swelling. NERVOUS SYSTEM: Higher functions as mentioned earlier. Moves all 4 limbs. No focal motor or sensory deficit. LYMPHATICS: No lymph node palpable in neck, axillae or groin. SKIN: No ulcer, rash, bleeding. JOINTS: No active deforming arthropathy. LABS: Labs at this time show glucose 212. ASSESSMENT: 1. Chronic obstructive pulmonary disease, acute exacerbation, with acute purulent tracheobronchitis with acute hypoxic respiratory failure. 2. Atrial fibrillation. 3. History of asthma, chronic obstructive pulmonary disease. 4. Diabetes mellitus, type 2. 5. Gastroesophageal reflux disease. 6. Hypertension. 7. Hyperlipidemia. 8. History of degenerative joint disease. 9. History of pneumonia. 10.History of bronchitis. 11.History of anxiety, depression. 12.History of continued ongoing nicotine dependence. 13.Obesity with body mass index of 32.4. 14.FULL CODE. RECOMMENDATIONS AND DISCUSSION: In this 70-year-old gentleman who presented with multiple complex medical issues, we will monitor the patient closely, continue the current medications, continue symptomatic treatment. Intensive bronchodilator treatment, empiric antibiotics, steroids, pulmonary consultation. Monitor blood sugars closely. DVT prophylaxis. Resume the home medications. Prognosis guarded because of multiple complex medical issues. Further recommendations to follow. MMODL / IJN: [id number] / TRAVIS
[2021-06-07] MEDS: FORMOTEROL FUMARATE 20 MCG/2 ML NEBU INHALATION SCH (20:14)
[2021-06-07] MEDS: BUDESONIDE 1 MG/2 ML NEBU INHALATION SCH (20:14)
[2021-06-07] MEDS: ACETAMINOPHEN TAB 500 MG TAB PO PRN (20:54)
[2021-06-07] MEDS: MELATONIN 5 MG TABLET PO SCH (20:54)
[2021-06-07 21:26] LABS: Glucose,Whole Blood 199 mg/dL (75-99)
[2021-06-08] MEDS: methylPREDNISolone SOD SUCCI 125 MG/2 ML VIAL IV SCH ×4 (05:11→22:59)
[2021-06-08] MEDS: ACETAMINOPHEN TAB 500 MG TAB PO PRN (05:31)
[2021-06-08 07:15] LABS: Glucose,Whole Blood 173 mg/dL (75-99)
[2021-06-08] MEDS: FORMOTEROL FUMARATE 20 MCG/2 ML NEBU INHALATION SCH ×2 (07:22→19:12)
[2021-06-08] MEDS: BUDESONIDE 1 MG/2 ML NEBU INHALATION SCH ×2 (07:22→19:11)
[2021-06-08] MEDS: IPRATROPIUM-ALBUTEROL 3 ML NEB INHALATION PRN ×5 (07:22→23:32)
[2021-06-08] MEDS: HYDROcodone/APAP 5-325MG 1 EACH TAB PO PRN ×3 (07:29→18:55)
[2021-06-08] MEDS: PANTOPRAZOLE 40 MG TABLET PO SCH (07:30)
[2021-06-08] MEDS: POTASSIUM CHLORIDE ER 20 MEQ TAB.ER PO SCH ×3 (07:30→20:39)
[2021-06-08] MEDS: ATORVASTATIN 20 MG TAB PO SCH (07:30)
[2021-06-08] MEDS: LEVOFLOXACIN 750 MG TAB PO SCH (07:30)
[2021-06-08] MEDS: SPIRONOLACTONE 25 MG TAB PO SCH (07:30)
[2021-06-08] MEDS: METOPROLOL TARTRATE 50 MG TAB PO SCH ×2 (07:30→20:38)
[2021-06-08] MEDS: THEOPHYLLINE 24 HOUR 400 MG CAP.ER.24H PO SCH (07:30)
[2021-06-08] MEDS: FUROSEMIDE 40 MG TAB PO SCH ×2 (07:30→15:40)
[2021-06-08] MEDS: amLODIPine 10 MG TAB PO SCH (07:31)
[2021-06-08] MEDS: APIXABAN 5 MG TAB PO SCH ×2 (07:31→20:39)
[2021-06-08] MEDS: INSULIN ASPART (NovoLOG) 100 UNIT/ML VIAL SQ SCH ×4 (07:31→20:39)
[2021-06-08] MEDS: NICOTINE 21MG/24HR PATCH TRANSDERM SCH (07:31)
[2021-06-08] MEDS: metFORMIN 500 MG TAB PO SCH ×2 (07:31→20:38)
[2021-06-08] MEDS: FLUTICASONE 50MCG/SPRAY NASAL 16GM EA NOSTRIL SCH (07:32)
[2021-06-08 09:17] LABS: Basophils # (A) 0.01 X 10*3/uL (0.00-0.10); Basophils % (A) 0.1 %; Eosinophils # (A) 0 X 10*3/uL (0.04-0.35); Eosinophils % (A) 0 %; HCT 40.7 % (39.6-50.0); HGB 13.8 g/dL (13.0-17.0); Lymphocytes # (A) 0.69 X 10*3/uL (0.90-5.00); Lymphocytes % (A) 6.1 %; MCH 30.6 pg (27.0-32.0); MCHC 33.9 g/dL (32.0-37.0); MCV 90.2 fL (80.0-97.0); Mean Platelet Volume 9.8 fL (9.5-12.2); Monocytes # (A) 0.56 X 10*3/uL (0.20-1.00); Neutrophils # (A) 9.88 X 10*3/uL (1.80-7.70); Neutrophils % (A) 88.1 %; Platelet Count 273 X 10*3/uL (140-440); RBC 4.51 X 10*6/uL (4.40-5.60); RDW 14.5 % (11.5-14.5); WBC 11.22 X 10*3/uL (4.50-10.00)
[2021-06-08 10:51] LABS: African American GFR (CKD) 104.2 (60.0-200.0); Anion Gap 19.4 mmol/L (4.00-12.00); BUN/Creat Ratio 22.5 Ratio (12.00-20.00); Calcium 9.5 mg/dL (8.7-10.3); Carbon Dioxide 21.6 mmol/L (21.6-31.8); Non-African American GFR(CKD) 89.9 (60.0-200.0); Potassium 4.7 mmol/L (3.5-5.5)
[2021-06-08 12:17] LABS: Glucose,Whole Blood 178 mg/dL (75-99)
[2021-06-08] MEDS: NYSTATIN 100,000 UNIT/ML SUSP 500,000 UNIT/5 ML CUP PO SCH ×3 (12:31→20:39)
--- NOTE | 2021-06-08 14:10 | P.PN ---
Subjective Progress Note Date: 06/08/21 This is a 70-year-old male with a history of COPD from ongoing tobacco use and nicotine addiction, who initially presented to the emergency department at [facility], and was transferred here to our facility for further treatment and management. The patient has a history of atrial fibrillation as well. It's not clear to me why the patient was transferred from the outside hospital. The patient states that for the last number of days, he's been having some issues with increasing shortness of breath, cough, and clear to white phlegm production. No fever or chills. No nausea, vomiting, diarrhea, or abdominal pain. No complaints. The patient denied any chest pain or pressure. The patient was seen in the emergency room by Dr. Calvin Valle admitted with a diagnosis of COPD exacerbation. Currently, the patient's on a couple of liters of oxygen. He was recently in the hospital back in April. He is fully vaccinated against coronavirus. In addition to COPD and atrial fibril lation, the patient has a history of diabetes, acid reflux disease, hyperlipidemia, hypertension, and chronic nicotine dependence. There are no labs or x-rays from this institution. I will order a chest x-ray and labs on this patient. On today's evaluation of 06/08/2021, the patient is still having increased shortness of breath and his lungs are still tight chest is sore. He is having significant cough and and his right chest wall including the area around his nipple is quite sore to touch. No lesions or nodules identified on physical examination. He is vaccinated for COVID-19. Is known to have COPD. He has chronic atrial fibrillation. He has also diabetes hypertension hyperlipidemia. Is a chronic smoker. His blood work from today shows a white cell count of 11.2. His sodium level is at 133 with a potassium level of 4.7. Glucose is 145. Calcium level is 9.5. No other significant abnormalities in his blood work. He remains on long-term and evaluation with [facility]. He remains on bronchodilators with DuoNeb nebulized treatment [id number] and IV Solu Medrol 40 mg every 6 hours. He is also on theophylline 400 mg by mouth daily and a nicotine patch was also provided to him. Objective - Vital Signs Vital signs: Vital Signs Temp 97.5 F L 06/08/21 07:00 Pulse 72 06/08/21 11:24 Resp 20 06/08/21 07:00 BP 124/77 06/08/21 07:00 Pulse Ox 99 06/08/21 07:22 Intake & Output 06/07/21 06/08/21 06/08/21 18:59 06:59 18:59 Intake Total 140 Balance 140 Intake: Intake, IV Titration 140 Amount Sodium Chloride 0.9% 1, 140 000 ml @ 100 mls/hr IV . Q10H [facility] Rx#:[id number] Other: Voiding Method Urinal Urinal Urinal # Voids 2 3 - Exam No acute distress, oriented 3. No use of accessory muscles or conversational dyspnea. She does have a very wet congested cough. Currently on 4 L nasal cannula with a saturation of 98%. HEENT examination is grossly unremarkable. Poor dental hygiene and multiple decayed teeth Neck supple. Full range of motion. No adenopathy thyromegaly or neck vein distention. Cardiovascular examination reveals regular rhythm rate. S1-S2 normal. No S3 or S4. No discernible murmur noted. Heart sounds are very distant. Lungs reveal coarse bilateral expiratory rhonchi and expiratory wheezes. There is prolongation on forced maneuver. Adventitious lung sounds are more prominent on forced maneuver. There are no crackles. Breath sounds are equal bilaterally. Abdomen soft bowel sounds are heard. No masses or tenderness. Large umbilical hernia which is easily reducible and there is no incarceration or strangulation Extremities are intact. No cyanosis or clubbing. Minimal edema noted. Skin is without rash or lesion. Neurologic examination is brief but nonfocal. - Labs CBC & Chem 7: 06/08/21 05:18 06/08/21 05:18 Labs: Abnormal Lab Results - Last 24 Hours (Table) 06/07/21 06/07/21 06/07/21 Range/Units 14:46 18:05 21:25 WBC (4.50-10.00) X 10*3/uL Immature Gran # (0.00-0.04) X 10*3/uL Neutrophils # (1.80-7.70) X 10*3/uL Lymphocytes # (0.90-5.00) X 10*3/uL Eosinophils # (0.04-0.35) X 10*3/uL Sodium (135-145) mmol/L Chloride (96-109) mmol/L Anion Gap (4.00-12.00) mmol/L BUN/Creatinine Ratio (12.00-20.00) Ratio Glucose (70-110) mg/dL POC Glucose (mg/dL) 212 H 170 H 199 H (75-99) mg/dL 06/08/21 06/08/21 06/08/21 Range/Units 05:18 05:18 07:06 WBC 11.22 H (4.50-10.00) X 10*3/uL Immature Gran # 0.08 H (0.00-0.04) X 10*3/uL Neutrophils # 9.88 H (1.80-7.70) X 10*3/uL Lymphocytes # 0.69 L (0.90-5.00) X 10*3/uL Eosinophils # 0 L (0.04-0.35) X 10*3/uL Sodium 133 L (135-145) mmol/L Chloride 92 L (96-109) mmol/L Anion Gap 19.40 H (4.00-12.00) mmol/L BUN/Creatinine Ratio 22.50 H (12.00-20.00) Ratio Glucose 145 H (70-110) mg/dL POC Glucose (mg/dL) 173 H (75-99) mg/dL 06/08/21 Range/Units 12:12 WBC (4.50-10.00) X 10*3/uL Immature Gran # (0.00-0.04) X 10*3/uL Neutrophils # (1.80-7.70) X 10*3/uL Lymphocytes # (0.90-5.00) X 10*3/uL Eosinophils # (0.04-0.35) X 10*3/uL Sodium (135-145) mmol/L Chloride (96-109) mmol/L Anion Gap (4.00-12.00) mmol/L BUN/Creatinine Ratio (12.00-20.00) Ratio Glucose (70-110) mg/dL POC Glucose (mg/dL) 178 H (75-99) mg/dL Assessment and Plan Plan: 1 Acute exacerbation of COPD. 2 Ongoing tobacco use with nicotine addiction. 3 History of atrial fibrillation. 4 History of osteoarthritis. 5 Chronic hypoxemic respiratory failure. 6 History of cataracts. 7 History of gastroesophageal reflux disease. 8 History of diabetes mellitus, with diabetic neuropathy. 9 History of hypertension. 10 History of hyperlipidemia. Plan Clinically symptomatic. Chest x-ray was reviewed to continue same bronchodilators and steroid regimen. I'll patient medication be resumed including his Eliquis. His chest wall is sore. No need for any further intervention unless his condition changes. Anticipate some further improvement over the next 24 hours. We'll continue to follow.
--- NOTE | 2021-06-08 16:08 | P.PN ---
Subjective Progress Note Date: 06/08/21 This is a 70-year-old male who was recently admitted with COPD exacerbation and is being closely monitored. Patient was having worsening shortness of breath requiring more oxygen as he currently uses 2 L and upon admission in the ED patient was placed on BiPAP briefly and is continued on 4 L via nasal cannula. Pulmonary consulted and following and patient is maintained on IV steroids along with breathing inhalational treatments and bronchodilators and will continue. Patient with significant chronic back pain takes [place] at home and will resume home dose. Recommend continue with Accu-Cheks before meals and at bedtime and use sliding scale as needed. Patient to continue on empiric anabiotics for possible purulent tracheobronchitis. Review of systems: Constitutional: No reports of fatigue, fever, or chills Cardiovascular: No reports of chest pain or palpitations Respiratory: reports worsening shortness of breath and continued dry hacking cough with chest wall pain secondary to cough GI: No reports of nausea, vomiting, or diarrhea : No reports of dysuria or retention Neurovascular: No reports of weakness or numbness All medications have been reviewed Active Medications Acetaminophen (Acetaminophen Tab 500 Mg Tab) 500 mg PO Q6HR PRN PRN Reason: Fever and/ or mild Pain Last Admin: 06/08/21 05:31 Dose: 500 mg Documented by: Hydrocodone Bitart/Acetaminophen (Hydrocodone/Apap 5-325mg 1 Each Tab) 1 each PO Q6HR PRN PRN Reason: Severe Pain Last Admin: 06/08/21 12:41 Dose: 1 each Documented by: Albuterol/Ipratropium (Ipratropium-Albuterol 3 Ml Neb) 3 ml INHALATION RT-Q4H PRN PRN Reason: Shortness Of Breath Or Wheezing Last Admin: 06/08/21 15:31 Dose: 3 ml Documented by: Alprazolam (Alprazolam 0.25 Mg Tab) 0.25 mg PO TID PRN PRN Reason: Anxiety Last Admin: 06/07/21 20:55 Dose: 0.25 mg Documented by: Amlodipine Besylate (Amlodipine 10 Mg Tab) 10 mg PO DAILY [facility] Last Admin: 06/08/21 07:31 Dose: 10 mg Documented by: Apixaban (Apixaban 5 Mg Tab) 5 mg PO BID [facility]; Protocol Last Admin: 06/08/21 07:31 Dose: 5 mg Documented by: Atorvastatin Calcium (Atorvastatin 20 Mg Tab) 20 mg PO DAILY [facility] Last Admin: 06/08/21 07:30 Dose: 20 mg Documented by: Budesonide (Budesonide 1 Mg/2 Ml Nebu) 1 mg INHALATION RT-BID [facility] Last Admin: 06/08/21 07:22 Dose: 1 mg Documented by: Fluticasone Propionate (Fluticasone 50mcg/[place] Nasal 16gm) 2 spray EA NOSTRIL DAILY [facility] Last Admin: 06/08/21 07:32 Dose: 2 spray Documented by: Formoterol Fumarate (Formoterol Fumarate 20 Mcg/2 Ml Nebu) 20 mcg INHALATION RT-BID [facility] Last Admin: 06/08/21 07:22 Dose: 20 mcg Documented by: Furosemide (Furosemide 40 Mg Tab) 40 mg PO BID@0900,1600 [facility] Last Admin: 06/08/21 15:40 Dose: 40 mg Documented by: Ibuprofen (Ibuprofen 800 Mg Tab) 800 mg PO TID PRN PRN Reason: Moderate pain Insulin Aspart (Insulin Aspart (Novolog) 100 Unit/Ml Vial) [address] [facility]; Protocol Last Admin: 06/08/21 12:31 Dose: 3 unit Documented by: Levofloxacin (Levofloxacin 750 Mg Tab) 750 mg PO DAILY [facility] Last Admin: 06/08/21 07:30 Dose: 750 mg Documented by: Lorazepam (Lorazepam 2 Mg/Ml Inj) 0.5 mg IV Q6HR PRN PRN Reason: Anxiety Last Admin: 06/07/21 02:14 Dose: 0.5 mg Documented by: Melatonin (Melatonin 5 Mg Tablet) 5 mg PO HS [facility] Last Admin: 06/07/21 20:54 Dose: 5 mg Documented by: Metformin HCl (Metformin 500 Mg Tab) 500 mg PO BID [facility] Last Admin: 06/08/21 07:31 Dose: 500 mg Documented by: Methylprednisolone Sodium Succinate (Methylprednisolone Sod Succi 125 Mg/2 Ml Vial) 40 mg IV Q8HR [facility] Last Admin: 06/08/21 15:40 Dose: 40 mg Documented by: Metoprolol Tartrate (Metoprolol Tartrate 50 Mg Tab) 50 mg PO BID [facility] Last Admin: 06/08/21 07:30 Dose: 50 mg Documented by: Nicotine (Nicotine 21mg/24hr Patch) 1 patch TRANSDERM DAILY [facility] Last Admin: 06/08/21 07:31 Dose: 1 patch Documented by: Nystatin (Nystatin 100,000 Unit/Ml Susp 500,000 Unit/5 Ml Cup) 500,000 unit PO QID [facility] Last Admin: 06/08/21 12:31 Dose: 500,000 unit Documented by: Pantoprazole Sodium (Pantoprazole 40 Mg Tablet) 40 mg PO AC-BRKFST [facility] Last Admin: 06/08/21 07:30 Dose: 40 mg Documented by: Potassium Chloride (Potassium Chloride Er 20 Meq Tab.Er) 20 meq PO TID [facility] Last Admin: 06/08/21 15:40 Dose: 20 meq Documented by: Spironolactone (Spironolactone 25 Mg Tab) 25 mg PO DAILY [facility] Last Admin: 06/08/21 07:30 Dose: 25 mg Documented by: Theophylline (Theophylline 24 Hour 400 Mg Cap.Er.24h) 400 mg PO DAILY [facility] Last Admin: 06/08/21 07:30 Dose: 400 mg Documented by: Physical Exam: Gen: This is a 70-year-old male awake, alert and oriented 3, well-developed, well-nourished, obese. Sitting up in the chair. HEENT: Head is atraumatic, normocephalic. Pupils equal, round. Sclerae is anicteric. NECK: Supple. No JVD. No lymphadenopathy. No thyromegaly. LUNGS: Diminished breath sounds bilaterally with inspiratory and expiratory wheezing noted on exam on with some scattered rhonchi noted throughout. No intercostal retractions. HEART: Regular rate and rhythm. No murmur. ABDOMEN: Soft. Obese. Bowel sounds are present. No masses. No tenderness. EXTREMITIES: No pedal edema. No calf tenderness. NEUROLOGICAL: Patient is awake, alert and oriented x3. Cranial nerves 2 through 12 are grossly intact. Assessment: Chronic obstructive pulmonary disease, acute exacerbation with acute purulent tracheobronchitis with acute hypoxic respiratory failure Atrial fibrillation History of asthma, COPD Diabetes mellitus type 2 GERD Hypertension Hyperlipidemia History of degenerative joint disease history of anxiety, depression history of continued ongoing nicotine dependence Obesity with a BMI of 32.4 Full code Plan: Recommend continue with breathing inhalational treatments along with IV steroids and encouraged increased activity as tolerated. Patient continues on 4 L via nasal cannula and normally wears 2 L at home and recommend to continue with bronchodilators as well. Appropriate home medications have been resumed. Patient with chronic back pain and will increase his [place] to his home dose. Pulmonary following closely. We'll continue to monitor blood sugars and treat accordingly as needed with sliding scale. We'll continue to monitor closely and observe for improvement in COPD. Patient will require inpatient hospitalization secondary to COPD exacerbation and will require more than 2 night hospitalization for this. Prognosis is guarded. Possible discharge in 24-48 hours. Objective - Vital Signs Vital signs: Vital Signs Temp 97.5 F L 06/08/21 07:00 Pulse 84 06/08/21 07:52 Resp 20 06/08/21 07:00 BP 124/77 06/08/21 07:00 Pulse Ox 99 06/08/21 07:22 Intake & Output 06/07/21 06/08/21 06/08/21 18:59 06:59 18:59 Intake Total 140 Balance 140 Intake: Intake, IV Titration 140 Amount Sodium Chloride 0.9% 1, 140 000 ml @ 100 mls/hr IV . Q10H [facility] Rx#:[id number] Other: Voiding Method Urinal Urinal Urinal # Voids 2 3 - Labs CBC & Chem 7: 06/08/21 05:18 06/08/21 05:18 Labs: Abnormal Lab Results - Last 24 Hours (Table) 06/07/21 06/07/21 06/07/21 Range/Units 14:46 18:05 21:25 WBC (4.50-10.00) X 10*3/uL Immature Gran # (0.00-0.04) X 10*3/uL Neutrophils # (1.80-7.70) X 10*3/uL Lymphocytes # (0.90-5.00) X 10*3/uL Eosinophils # (0.04-0.35) X 10*3/uL POC Glucose (mg/dL) 212 H 170 H 199 H (75-99) mg/dL 06/08/21 06/08/21 Range/Units 05:18 07:06 WBC 11.22 H (4.50-10.00) X 10*3/uL Immature Gran # 0.08 H (0.00-0.04) X 10*3/uL Neutrophils # 9.88 H (1.80-7.70) X 10*3/uL Lymphocytes # 0.69 L (0.90-5.00) X 10*3/uL Eosinophils # 0 L (0.04-0.35) X 10*3/uL POC Glucose (mg/dL) 173 H (75-99) mg/dL
[2021-06-08 17:12] LABS: Glucose,Whole Blood 231 mg/dL (75-99)
[2021-06-08 20:24] LABS: Glucose,Whole Blood 223 mg/dL (75-99)
[2021-06-08] MEDS: MELATONIN 5 MG TABLET PO SCH (20:39)
[2021-06-09] MEDS: HYDROcodone/APAP 5-325MG 1 EACH TAB PO PRN ×4 (01:17→20:23)
[2021-06-09] MEDS: IPRATROPIUM-ALBUTEROL 3 ML NEB INHALATION PRN ×3 (03:18→11:42)
[2021-06-09 07:22] LABS: Glucose,Whole Blood 138 mg/dL (75-99)
[2021-06-09] MEDS: INSULIN ASPART (NovoLOG) 100 UNIT/ML VIAL SQ SCH ×4 (08:08→20:24)
[2021-06-09] MEDS: LEVOFLOXACIN 750 MG TAB PO SCH (08:08)
[2021-06-09] MEDS: methylPREDNISolone SOD SUCCI 125 MG/2 ML VIAL IV SCH ×3 (08:08→16:03)
[2021-06-09] MEDS: POTASSIUM CHLORIDE ER 20 MEQ TAB.ER PO SCH ×3 (08:09→20:23)
[2021-06-09] MEDS: NYSTATIN 100,000 UNIT/ML SUSP 500,000 UNIT/5 ML CUP PO SCH ×4 (08:09→20:24)
[2021-06-09] MEDS: PANTOPRAZOLE 40 MG TABLET PO SCH (08:09)
[2021-06-09] MEDS: SPIRONOLACTONE 25 MG TAB PO SCH (08:09)
[2021-06-09] MEDS: amLODIPine 10 MG TAB PO SCH (08:09)
[2021-06-09] MEDS: THEOPHYLLINE 24 HOUR 400 MG CAP.ER.24H PO SCH (08:09)
[2021-06-09] MEDS: METOPROLOL TARTRATE 50 MG TAB PO SCH ×2 (08:09→20:23)
[2021-06-09] MEDS: APIXABAN 5 MG TAB PO SCH ×2 (08:09→20:24)
[2021-06-09] MEDS: FLUTICASONE 50MCG/SPRAY NASAL 16GM EA NOSTRIL SCH (08:09)
[2021-06-09] MEDS: ATORVASTATIN 20 MG TAB PO SCH (08:09)
[2021-06-09] MEDS: FUROSEMIDE 40 MG TAB PO SCH ×2 (08:09→15:39)
[2021-06-09] MEDS: metFORMIN 500 MG TAB PO SCH ×2 (08:09→20:23)
[2021-06-09] MEDS: NICOTINE 21MG/24HR PATCH TRANSDERM SCH (08:10)
[2021-06-09] MEDS: BUDESONIDE 1 MG/2 ML NEBU INHALATION SCH ×2 (08:33→19:40)
[2021-06-09] MEDS: FORMOTEROL FUMARATE 20 MCG/2 ML NEBU INHALATION SCH ×2 (08:33→19:40)
[2021-06-09 12:10] LABS: Glucose,Whole Blood 105 mg/dL (75-99)
[2021-06-09] MEDS ORDERED: ALBUTEROL HFA INHALER INHALATION PRN (12:52)
--- NOTE | 2021-06-09 14:20 | P.PN ---
Subjective Progress Note Date: 06/09/21 This is a 70-year-old male who was recently admitted with COPD exacerbation and is being closely monitored. Patient was having worsening shortness of breath requiring more oxygen as he currently uses 2 L and upon admission in the ED patient was placed on BiPAP briefly and is continued on 4 L via nasal cannula. Pulmonary consulted and following and patient is maintained on IV steroids along with breathing inhalational treatments and bronchodilators and will continue. Patient with significant chronic back pain takes [place] at home and will resume home dose. Recommend continue with Accu-Cheks before meals and at bedtime and use sliding scale as needed. Patient to continue on empiric anabiotics for possible purulent tracheobronchitis. 06/09/2021 Patient was seen and evaluated in follow-up continues to have dyspnea and short of breath with minimal exertion. Patient states he feels somewhat improved today although not quite back to baseline. Patient continues to be bronchospastic with auditory inspiratory and expiratory wheezing noted on exam. Patient continues on breathing inhalational treatments along with Pulmicort and pulmonary following closely. Patient also continues on IV steroids and will continue for now. No new labs today and will repeat labs. Wean FiO2 as tolerated patient is maintaining 3 L via nasal cannula 94%. Patient normally wears 2 L in the outpatient setting. Review of systems: Constitutional: No reports of fatigue, fever, or chills Cardiovascular: No reports of chest pain or palpitations Respiratory: No reports of worsening shortness of breath and continued dry hacking cough with chest wall pain secondary to cough GI: No reports of nausea, vomiting, or diarrhea : No reports of dysuria or retention Neurovascular: No reports of weakness or numbness All medications have been reviewed Active Medications Acetaminophen (Acetaminophen Tab 500 Mg Tab) 500 mg PO Q6HR PRN PRN Reason: Fever and/ or mild Pain Last Admin: 06/08/21 05:31 Dose: 500 mg Documented by: Hydrocodone Bitart/Acetaminophen (Hydrocodone/Apap 5-325mg 1 Each Tab) 1 each PO Q6HR PRN PRN Reason: Severe Pain Last Admin: 06/09/21 08:18 Dose: 1 each Documented by: Albuterol Sulfate (Albuterol Hfa Inhaler) 2 puff INHALATION RT-QID PRN PRN Reason: Shortness Of Breath Or Wheezing Albuterol/Ipratropium (Ipratropium-Albuterol 3 Ml Neb) 3 ml INHALATION RT-Q4H PRN PRN Reason: Shortness Of Breath Or Wheezing Last Admin: 06/09/21 11:42 Dose: 3 ml Documented by: Alprazolam (Alprazolam 0.25 Mg Tab) 0.25 mg PO TID PRN PRN Reason: Anxiety Last Admin: 06/07/21 20:55 Dose: 0.25 mg Documented by: Amlodipine Besylate (Amlodipine 10 Mg Tab) 10 mg PO DAILY [facility] Last Admin: 06/09/21 08:09 Dose: 10 mg Documented by: Apixaban (Apixaban 5 Mg Tab) 5 mg PO BID [facility]; Protocol Last Admin: 06/09/21 08:09 Dose: 5 mg Documented by: Atorvastatin Calcium (Atorvastatin 20 Mg Tab) 20 mg PO DAILY [facility] Last Admin: 06/09/21 08:09 Dose: 20 mg Documented by: Budesonide (Budesonide 1 Mg/2 Ml Nebu) 1 mg INHALATION RT-BID [facility] Last Admin: 06/09/21 08:33 Dose: 1 mg Documented by: Fluticasone Propionate (Fluticasone 50mcg/[place] Nasal 16gm) 2 spray EA NOSTRIL DAILY [facility] Last Admin: 06/09/21 08:09 Dose: 2 spray Documented by: Formoterol Fumarate (Formoterol Fumarate 20 Mcg/2 Ml Nebu) 20 mcg INHALATION RT-BID [facility] Last Admin: 06/09/21 08:33 Dose: 20 mcg Documented by: Furosemide (Furosemide 40 Mg Tab) 40 mg PO BID@0900,1600 [facility] Last Admin: 06/09/21 08:09 Dose: 40 mg Documented by: Ibuprofen (Ibuprofen 800 Mg Tab) 800 mg PO TID PRN PRN Reason: Moderate pain Insulin Aspart (Insulin Aspart (Novolog) 100 Unit/Ml Vial) 0 unit SQ ACHS [facility]; Protocol Last Admin: 06/09/21 14:01 Dose: Not Given Documented by: Levofloxacin (Levofloxacin 750 Mg Tab) 750 mg PO DAILY [facility] Last Admin: 06/09/21 08:08 Dose: 750 mg Documented by: Lorazepam (Lorazepam 2 Mg/Ml Inj) 0.5 mg IV Q6HR PRN PRN Reason: Anxiety Last Admin: 06/07/21 02:14 Dose: 0.5 mg Documented by: Melatonin (Melatonin 5 Mg Tablet) 5 mg PO HS [facility] Last Admin: 06/08/21 20:39 Dose: 5 mg Documented by: Metformin HCl (Metformin 500 Mg Tab) 500 mg PO BID [facility] Last Admin: 06/09/21 08:09 Dose: 500 mg Documented by: Methylprednisolone Sodium Succinate (Methylprednisolone Sod Succi 125 Mg/2 Ml Vial) 40 mg IV Q8HR [facility] Last Admin: 06/09/21 08:08 Dose: 40 mg Documented by: Metoprolol Tartrate (Metoprolol Tartrate 50 Mg Tab) 50 mg PO BID [facility] Last Admin: 06/09/21 08:09 Dose: 50 mg Documented by: Nicotine (Nicotine 21mg/24hr Patch) 1 patch TRANSDERM DAILY [facility] Last Admin: 06/09/21 08:10 Dose: 1 patch Documented by: Nystatin (Nystatin 100,000 Unit/Ml Susp 500,000 Unit/5 Ml Cup) 500,000 unit PO QID [facility] Last Admin: 06/09/21 08:09 Dose: 500,000 unit Documented by: Pantoprazole Sodium (Pantoprazole 40 Mg Tablet) 40 mg PO AC-BRKFST [facility] Last Admin: 06/09/21 08:09 Dose: 40 mg Documented by: Potassium Chloride (Potassium Chloride Er 20 Meq Tab.Er) 20 meq PO TID [facility] Last Admin: 06/09/21 08:09 Dose: 20 meq Documented by: Spironolactone (Spironolactone 25 Mg Tab) 25 mg PO DAILY [facility] Last Admin: 06/09/21 08:09 Dose: 25 mg Documented by: Theophylline (Theophylline 24 Hour 400 Mg Cap.Er.24h) 400 mg PO DAILY [facility] Last Admin: 06/09/21 08:09 Dose: 400 mg Documented by: Physical Exam: Gen: This is a 70-year-old male awake, alert and oriented 3, well-developed, well-nourished, obese. Sitting up in the chair. HEENT: Head is atraumatic, normocephalic. Pupils equal, round. Sclerae is anicteric. NECK: Supple. No JVD. No lymphadenopathy. No thyromegaly. LUNGS: Diminished breath sounds bilaterally at the bases with inspiratory and expiratory wheezing noted on exam on with some scattered rhonchi noted throughout. No intercostal retractions. HEART: Regular rate and rhythm. No murmur. ABDOMEN: Soft. Obese. Bowel sounds are present. No masses. No tenderness. EXTREMITIES: No pedal edema. No calf tenderness. NEUROLOGICAL: Patient is awake, alert and oriented x3. Cranial nerves 2 through 12 are grossly intact. Assessment: Chronic obstructive pulmonary disease, acute exacerbation with acute purulent tracheobronchitis with acute hypoxic respiratory failure Atrial fibrillation History of asthma, COPD Diabetes mellitus type 2 GERD Hypertension Hyperlipidemia History of degenerative joint disease history of anxiety, depression history of continued ongoing nicotine dependence Obesity with a BMI of 32.4 Full code Plan: Recommend continue with breathing inhalational treatments along with IV steroids and encouraged increased activity as tolerated. Patient continues on 3 L via nasal cannula and normally wears 2 L at home and recommend to continue with bronchodilators as well. Appropriate home medications have been resumed. Will add rescue inhaler at the bedside. Pulmonary following closely. We'll continue to monitor blood sugars and treat accordingly as needed with sliding scale. We'll continue to monitor closely and observe for improvement in COPD. Not quite back to baseline. Possible discharge in 24-48 hours. Objective - Vital Signs Vital signs: Vital Signs Temp 97.6 F 06/09/21 07:00 Pulse 101 H 06/09/21 08:50 Resp 18 06/09/21 08:50 BP 133/77 06/09/21 07:00 Pulse Ox 94 L 06/09/21 08:33 Intake & Output 06/08/21 06/09/21 06/09/21 18:59 06:59 18:59 Other: Voiding Method Urinal Toilet Urinal # Voids 3 3 - Labs CBC & Chem 7: 06/08/21 05:18 06/08/21 05:18 Labs: Abnormal Lab Results - Last 24 Hours (Table) 06/08/21 06/08/21 06/08/21 Range/Units 05:18 05:18 12:12 WBC 11.22 H (4.50-10.00) X 10*3/uL Immature Gran # 0.08 H (0.00-0.04) X 10*3/uL Neutrophils # 9.88 H (1.80-7.70) X 10*3/uL Lymphocytes # 0.69 L (0.90-5.00) X 10*3/uL Eosinophils # 0 L (0.04-0.35) X 10*3/uL Sodium 133 L (135-145) mmol/L Chloride 92 L (96-109) mmol/L Anion Gap 19.40 H (4.00-12.00) mmol/L BUN/Creatinine Ratio 22.50 H (12.00-20.00) Ratio Glucose 145 H (70-110) mg/dL POC Glucose (mg/dL) 178 H (75-99) mg/dL 06/08/21 06/08/21 06/09/21 Range/Units 17:11 20:22 06:59 WBC (4.50-10.00) X 10*3/uL Immature Gran # (0.00-0.04) X 10*3/uL Neutrophils # (1.80-7.70) X 10*3/uL Lymphocytes # (0.90-5.00) X 10*3/uL Eosinophils # (0.04-0.35) X 10*3/uL Sodium (135-145) mmol/L Chloride (96-109) mmol/L Anion Gap (4.00-12.00) mmol/L BUN/Creatinine Ratio (12.00-20.00) Ratio Glucose (70-110) mg/dL POC Glucose (mg/dL) 231 H 223 H 138 H (75-99) mg/dL
--- NOTE | 2021-06-09 15:49 | P.PN ---
Subjective Progress Note Date: 06/09/21 This is a 70-year-old male with a history of COPD from ongoing tobacco use and nicotine addiction, who initially presented to the emergency department at [facility], and was transferred here to our facility for further treatment and management. The patient has a history of atrial fibrillation as well. It's not clear to me why the patient was transferred from the outside hospital. The patient states that for the last number of days, he's been having some issues with increasing shortness of breath, cough, and clear to white phlegm production. No fever or chills. No nausea, vomiting, diarrhea, or abdominal pain. No complaints. The patient denied any chest pain or pressure. The patient was seen in the emergency room by Dr. Calvin Valle admitted with a diagnosis of COPD exacerbation. Currently, the patient's on a couple of liters of oxygen. He was recently in the hospital back in April. He is fully vaccinated against coronavirus. In addition to COPD and atrial fibril lation, the patient has a history of diabetes, acid reflux disease, hyperlipidemia, hypertension, and chronic nicotine dependence. There are no labs or x-rays from this institution. I will order a chest x-ray and labs on this patient. On today's evaluation of 06/08/2021, the patient is still having increased shortness of breath and his lungs are still tight chest is sore. He is having significant cough and and his right chest wall including the area around his nipple is quite sore to touch. No lesions or nodules identified on physical examination. He is vaccinated for COVID-19. Is known to have COPD. He has chronic atrial fibrillation. He has also diabetes hypertension hyperlipidemia. Is a chronic smoker. His blood work from today shows a white cell count of 11.2. His sodium level is at 133 with a potassium level of 4.7. Glucose is 145. Calcium level is 9.5. No other significant abnormalities in his blood work. He remains on long-term and evaluation with [facility]. He remains on bronchodilators with DuoNeb nebulized treatment [id number] and IV Solu Medrol 40 mg every 6 hours. He is also on theophylline 400 mg by mouth daily and a nicotine patch was also provided to him. 06/09/2021, the patient is not much happy with his progress. He still having cough and congestion and chest tightness and wheezing, unable to bring up much of sputum. He remains on DuoNeb nebulized treatments around the clock. He is on Solu-Medrol at a dose of 40 mg IV every 6 hours. He remains on theophylline. No new complaints otherwise for now. His chronic A. fib. He is blood work showing no major abnormalities and this is essentially from yesterday. No major hypoglycemia this point in time. Objective - Vital Signs Vital signs: Vital Signs Temp 97.5 F L 06/09/21 14:00 Pulse 111 H 06/09/21 14:00 Resp 18 06/09/21 14:00 BP 111/63 06/09/21 14:00 Pulse Ox 96 06/09/21 14:00 Intake & Output 06/08/21 06/09/21 06/09/21 18:59 06:59 18:59 Intake Total 240 Balance 240 Intake: Oral 240 Other: Voiding Method Urinal Toilet Urinal # Voids 3 3 1 - Exam No acute distress, oriented 3. No use of accessory muscles or conversational dyspnea. She does have a very wet congested cough. Currently on 4 L nasal cannula with a saturation of 98%. HEENT examination is grossly unremarkable. Poor dental hygiene and multiple decayed teeth Neck supple. Full range of motion. No adenopathy thyromegaly or neck vein distention. Cardiovascular examination reveals regular rhythm rate. S1-S2 normal. No S3 or S4. No discernible murmur noted. Heart sounds are very distant. Lungs reveal coarse bilateral expiratory rhonchi and expiratory wheezes. There is prolongation on forced maneuver. Adventitious lung sounds are more prominent on forced maneuver. There are no crackles. Breath sounds are equal bilaterally. Abdomen soft bowel sounds are heard. No masses or tenderness. Large umbilical hernia which is easily reducible and there is no incarceration or strangulation Extremities are intact. No cyanosis or clubbing. Minimal edema noted. Skin is without rash or lesion. Neurologic examination is brief but nonfocal. - Labs CBC & Chem 7: 06/08/21 05:18 06/08/21 05:18 Labs: Abnormal Lab Results - Last 24 Hours (Table) 06/08/21 06/08/21 06/09/21 Range/Units 17:11 20:22 06:59 POC Glucose (mg/dL) 231 H 223 H 138 H (75-99) mg/dL 06/09/21 Range/Units 12:03 POC Glucose (mg/dL) 105 H (75-99) mg/dL Assessment and Plan Plan: 1 Acute exacerbation of COPD. clinically unchanged, probably slightly improved compared to yesterday, nevertheless, no major progress. 2 Ongoing tobacco use with nicotine addiction. 3 History of atrial fibrillation. 4 History of osteoarthritis. 5 Chronic hypoxemic respiratory failure. 6 History of cataracts. 7 History of gastroesophageal reflux disease. 8 History of diabetes mellitus, with diabetic neuropathy. 9 History of hypertension. 10 History of hyperlipidemia. Plan Clinically symptomatic. Recommend increasing the IV Solu-Medrol to 60 mg every 6 hours Recommend adding Perforomist and Pulmicort neb last treatment twice a day Continue DuoNeb nebulized treatments 4 times a day Continue anticoagulation with Eliquis We'll give the patient another 24 hours.
[2021-06-09 17:42] LABS: Glucose,Whole Blood 185 mg/dL (75-99)
[2021-06-09] MEDS: MELATONIN 5 MG TABLET PO SCH (20:24)
[2021-06-09 20:28] LABS: Glucose,Whole Blood 200 mg/dL (75-99)
[2021-06-10] MEDS: methylPREDNISolone SOD SUCCI 125 MG/2 ML VIAL IV SCH ×3 (00:14→15:45)
[2021-06-10] MEDS: HYDROcodone/APAP 5-325MG 1 EACH TAB PO PRN ×4 (02:55→19:46)
[2021-06-10] MEDS: IPRATROPIUM-ALBUTEROL 3 ML NEB INHALATION PRN ×6 (03:55→20:29)
[2021-06-10 07:20] LABS: Glucose,Whole Blood 147 mg/dL (75-99)
[2021-06-10] MEDS: FORMOTEROL FUMARATE 20 MCG/2 ML NEBU INHALATION SCH ×2 (07:30→20:30)
[2021-06-10] MEDS: BUDESONIDE 1 MG/2 ML NEBU INHALATION SCH ×2 (07:30→20:30)
[2021-06-10] MEDS: INSULIN ASPART (NovoLOG) 100 UNIT/ML VIAL SQ SCH ×4 (08:20→21:07)
[2021-06-10] MEDS: POTASSIUM CHLORIDE ER 20 MEQ TAB.ER PO SCH ×3 (08:22→21:07)
[2021-06-10] MEDS: PANTOPRAZOLE 40 MG TABLET PO SCH (08:22)
[2021-06-10] MEDS: NYSTATIN 100,000 UNIT/ML SUSP 500,000 UNIT/5 ML CUP PO SCH ×4 (08:22→21:39)
[2021-06-10] MEDS: THEOPHYLLINE 24 HOUR 400 MG CAP.ER.24H PO SCH (08:22)
[2021-06-10] MEDS: FUROSEMIDE 40 MG TAB PO SCH (08:22)
[2021-06-10] MEDS: NICOTINE 21MG/24HR PATCH TRANSDERM SCH (08:22)
[2021-06-10] MEDS: ATORVASTATIN 20 MG TAB PO SCH (08:22)
[2021-06-10] MEDS: metFORMIN 500 MG TAB PO SCH ×2 (08:22→21:07)
[2021-06-10] MEDS: METOPROLOL TARTRATE 50 MG TAB PO SCH ×2 (08:22→21:07)
[2021-06-10] MEDS: APIXABAN 5 MG TAB PO SCH ×2 (08:23→21:07)
[2021-06-10] MEDS: LEVOFLOXACIN 750 MG TAB PO SCH (08:23)
[2021-06-10] MEDS: amLODIPine 10 MG TAB PO SCH (08:23)
[2021-06-10] MEDS: SPIRONOLACTONE 25 MG TAB PO SCH (08:23)
[2021-06-10] MEDS: FLUTICASONE 50MCG/SPRAY NASAL 16GM EA NOSTRIL SCH (08:23)
[2021-06-10 09:54] LABS: Basophils % (A) 0 %; Eosinophils % (A) 0 %; HCT 43.3 % (39.0-53.0); HGB 14.3 gm/dL (13.0-17.5); Lymphocytes # (A) 0.2 k/uL (1.0-4.8); Lymphocytes % (A) 2 %; MCH 30.7 pg (25.0-35.0); MCHC 33.1 g/dL (31.0-37.0); MCV 92.7 fL (80.0-100.0); Mean Platelet Volume 7.1; Monocytes # (A) 0.7 k/uL (0-1.0); Monocytes % (A) 6 %; Neutrophils # (A) 10.8 k/uL (1.3-7.7); Neutrophils % (A) 91 %; Platelet Count 285 k/uL (150-450); RBC 4.67 m/uL (4.30-5.90); RDW 14.6 % (11.5-15.5); WBC 11.8 k/uL (3.8-10.6)
[2021-06-10 10:41] LABS: African American GFR (CKD) >90 (>60 ml/min/1.73 sqM); Anion Gap 10 mmol/L; Blood Urea Nitrogen 29 mg/dL (9-20); Calcium 9.4 mg/dL (8.4-10.2); Carbon Dioxide 30 mmol/L (22-30); Chloride 87 mmol/L (98-107); Glucose 231 mg/dL (74-99); Non-African American GFR(CKD) 88 (>60 ml/min/1.73 sqM); Potassium 4.5 mmol/L (3.5-5.1); Sodium 127 mmol/L (137-145)
--- NOTE | 2021-06-10 12:39 | P.PN ---
Subjective Progress Note Date: 06/10/21 Principal diagnosis: COPD exacerbation This is a 70-year-old male with a history of COPD from ongoing tobacco use and nicotine addiction, who initially presented to the emergency department at [facility], and was transferred here to our facility for further treatmen t and management. The patient has a history of atrial fibrillation as well. It's not clear to me why the patient was transferred from the outside hospital. The patient states that for the last number of days, he's been having some issues with increasing shortness of breath, cough, and clear to white phlegm production. No fever or chills. No nausea, vomiting, diarrhea, or abdominal pain. No complaints. The patient denied any chest pain or pressure. The patient was seen in the emergency room by Dr. Calvin Valle admitted with a diagnosis of COPD exacerbation. Currently, the patient's on a couple of liters of oxygen. He was recently in the hospital back in April. He is fully vacci nated against coronavirus. In addition to COPD and atrial fibrillation, the patient has a history of diabetes, acid reflux disease, hyperlipidemia, hypertension, and chronic nicotine dependence. There are no labs or x-rays from this institution. I will order a chest x-ray and labs on this patient. On today's evaluation of 06/08/2021, the patient is still having increased shortness of breath and his lungs are still tight chest is sore. He is having significant cough and and his right chest wall including the area around his nipple is quite sore to touch. No lesions or nodules identified on physical examination. He is vaccinated for COVID-19. Is known to have COPD. He has chronic atrial fibrillation. He has also diabetes hypertension hyperlipidemia. Is a chronic smoker. His blood work from today shows a white cell count of 11.2. His sodium level is at 133 with a potassium level of 4.7. Glucose is 145. Calcium level is 9.5. No other significant abnormalities in his blood w ork. He remains on long-term and evaluation with Eliminnie. He remains on bronchodilators with DuoNeb nebulized treatment [id number] and IV Solu Medrol 40 mg every 6 hours. He is also on theophylline 400 mg by mouth daily and a nicotine patch was also provided to him. 06/09/2021, the patient is not much happy with his progress. He still having cough and congestion and chest tightness and wheezing, unable to bring up much of sputum. He remains on DuoNeb nebulized treatments around the clock. He is on Solu-Medrol at a dose of 40 mg IV every 6 hours. He remains on theophylline. No new complaints otherwise for now. His chronic A. fib. He is blood work showing no major abnormalities and this is essentially from yesterday. No major hypoglycemia this point in time. The patient is seen today 06/10/2021 in follow-up on the regular medical floor. He is currently sitting up in a chair at the bedside. Awake and alert in no acute distress. Breathing a bit easier today compared to yesterday. Continues with a loose nonproductive cough. No fever or chills. Continue good O2 sat uration in the mid 90s on 3 L/m per nasal cannula. He's been afebrile. Hemodynamically stable. White count 11.8. Hemoglobin 14.3. Sodium 127. Potassium 4.5. Creatinine 0.84. He remains on DuoNeb inhalations, Pulmicort and Perforomist inhalations, IV Solu-Medrol, theophylline, low 90s. Empiric antibiotics in the form of Levaquin. He remains on oral diuretics. NicoDerm patches in place Anticoagulated with Eliquis. Objective - Vital Signs Vital signs: Vital Signs Temp 97.5 F L 06/10/21 07:56 Pulse 92 06/10/21 11:27 Resp 16 06/10/21 07:56 BP 150/71 06/10/21 07:56 Pulse Ox 96 06/10/21 07:56 Intake & Output 06/09/21 06/10/21 06/10/21 18:59 06:59 18:59 Intake Total 360 658 Balance 360 658 Intake: Oral 360 658 Other: Voiding Method Toilet Urinal # Voids 1 3 - Exam GENERAL EXAM: Alert, obese 70-year-old male patient, on 3 L nasal cannula, comfortable in no apparent distress. HEAD: Normocephalic. EYES: Normal reaction of pupils, equal size. NOSE: Clear with pink turbinates. THROAT: No erythema or exudates. NECK: No masses, no JVD. CHEST: No chest wall deformity. LUNGS: Equal air entry with with bilateral end expiratory wheeze, diminished. CVS: S1 and S2 normal with no audible murmur, regular rhythm. ABDOMEN: No hepatosplenomegaly, normal bowel sounds, no guarding or rigidity. SPINE: No scoliosis or deformity SKIN: No rashes CENTRAL NERVOUS SYSTEM: No focal deficits, tone is normal in all 4 extremities. EXTREMITIES: There is trace peripheral edema. No clubbing, no cyanosis. Peripheral pulses are intact. - Labs CBC & Chem 7: 06/10/21 09:37 06/10/21 09:37 Labs: Abnormal Lab Results - Last 24 Hours (Table) 06/09/21 06/09/21 06/10/21 Range/Units 17:31 20:15 07:08 WBC (3.8-10.6) k/uL Neutrophils # (1.3-7.7) k/uL Lymphocytes # (1.0-4.8) k/uL Sodium (137-145) mmol/L Chloride (98-107) mmol/L BUN (9-20) mg/dL Glucose (74-99) mg/dL POC Glucose (mg/dL) 185 H 200 H 147 H (75-99) mg/dL 06/10/21 06/10/21 Range/Units 09:37 09:37 WBC 11.8 H (3.8-10.6) k/uL Neutrophils # 10.8 H (1.3-7.7) k/uL Lymphocytes # 0.2 L (1.0-4.8) k/uL Sodium 127 L (137-145) mmol/L Chloride 87 L (98-107) mmol/L BUN 29 H (9-20) mg/dL Glucose 231 H (74-99) mg/dL POC Glucose (mg/dL) (75-99) mg/dL Assessment and Plan Assessment: 1 Acute exacerbation of COPD. clinically unchanged, probably slightly improved compared to yesterday 2 Ongoing tobacco use with nicotine addiction. NicoDerm patches in place. 3 History of atrial fibrillation. Anticoagulated with Eliquis. 4 History of osteoarthritis. 5 Chronic hypoxemic respiratory failure. 6 History of cataracts. 7 History of gastroesophageal reflux disease. 8 History of diabetes mellitus, with diabetic neuropathy. 9 History of hypertension. 10 History of hyperlipidemia. Lam[place]: The patient was seen and evaluated by Dr. Jones He is improved today but not quite back to his baseline Continue the current treatment plan Titrate the FiO2 as tolerated Increase his activity as tolerated Again educated regarding the importance of complete smoking cessation Plan for discharge in the a.m. We'll continue to follow I, the cosigning physician, performed a history & physical examination of the patient. Lungs sounds with bilateral end expiratory wheeze, diminished. Maintaining good O2 saturations in the 90s on 3 L/m per nasal cannula. I discussed the assessment and plan of care with my nurse practitioner, Kelley Haq . I attest to the above note as dictated by her.
[2021-06-10 12:47] LABS: Glucose,Whole Blood 131 mg/dL (75-99)
[2021-06-10] MEDS: FUROSEMIDE 10 MG/ML 4 ML VIAL IV SCH ×2 (13:55→21:07)
[2021-06-10 17:45] LABS: Glucose,Whole Blood 167 mg/dL (75-99)
[2021-06-10 20:19] LABS: Glucose,Whole Blood 241 mg/dL (75-99)
[2021-06-10] MEDS: MELATONIN 5 MG TABLET PO SCH (21:07)
[2021-06-11] MEDS: HYDROcodone/APAP 5-325MG 1 EACH TAB PO PRN ×4 (00:55→21:03)
[2021-06-11] MEDS: methylPREDNISolone SOD SUCCI 125 MG/2 ML VIAL IV SCH ×4 (00:56→23:12)
[2021-06-11] MEDS: IPRATROPIUM-ALBUTEROL 3 ML NEB INHALATION PRN ×4 (01:12→19:27)
--- NOTE | 2021-06-11 05:23 | P.PN ---
Subjective Progress Note Date: 06/10/21 This is a 70-year-old male who was recently admitted with COPD exacerbation and is being closely monitored. Patient was having worsening shortness of breath requiring more oxygen as he currently uses 2 L and upon admission in the ED patient was placed on BiPAP briefly and is continued on 4 L via nasal cannula. Pulmonary consulted and following and patient is maintained on IV steroids along with breathing inhalational treatments and bronchodilators and will continue. Patient with significant chronic back pain takes [place] at home and will resume home dose. Recommend continue with Accu-Cheks before meals and at bedtime and use sliding scale as needed. Patient to continue on empiric anabiotics for possible purulent tracheobronchitis. 06/09/2021 Patient was seen and evaluated in follow-up continues to have dyspnea and short of breath with minimal exertion. Patient states he feels somewhat improved today although not quite back to baseline. Patient continues to be bronchospastic with auditory inspiratory and expiratory wheezing noted on exam. Patient continues on breathing inhalational treatments along with Pulmicort and pulmonary following closely. Patient also continues on IV steroids and will continue for now. No new labs today and will repeat labs. Wean FiO2 as tolerated patient is maintaining 3 L via nasal cannula 94%. Patient normally wears 2 L in the outpatient setting. 06/10/2021 Patient is seen this morning in follow up continues to be short of breath with wheezing and states he continues to feel tight and not back to baseline. Patient is also having some dependent edema of bilateral lower extremities. Sodium is slightly low at 127. Will start IV lasix 40mg IV q12 and repeat am labs. Pulmonary is following and maintained on IV steroids along with bronchodilators and will continue. Review of systems: Constitutional: No reports of fatigue, fever, or chills Cardiovascular: No reports of chest pain or palpitations Respiratory: No reports of worsening shortness of breath and continued dry hacking cough with chest wall pain secondary to cough GI: No reports of nausea, vomiting, or diarrhea : No reports of dysuria or retention Neurovascular: No reports of weakness or numbness, reports some swelling of the lower extremities All medications have been reviewed Active Medications Acetaminophen (Acetaminophen Tab 500 Mg Tab) 500 mg PO Q6HR PRN PRN Reason: Fever and/ or mild Pain Last Admin: 06/08/21 05:31 Dose: 500 mg Documented by: Hydrocodone Bitart/Acetaminophen (Hydrocodone/Apap 5-325mg 1 Each Tab) 1 each PO Q6HR PRN PRN Reason: Severe Pain Last Admin: 06/11/21 00:55 Dose: 1 each Documented by: Albuterol Sulfate (Albuterol Hfa Inhaler) 2 puff INHALATION RT-QID PRN PRN Reason: Shortness Of Breath Or Wheezing Albuterol/Ipratropium (Ipratropium-Albuterol 3 Ml Neb) 3 ml INHALATION RT-Q4H PRN PRN Reason: Shortness Of Breath Or Wheezing Last Admin: 06/11/21 04:37 Dose: 3 ml Documented by: Alprazolam (Alprazolam 0.25 Mg Tab) 0.25 mg PO TID PRN PRN Reason: Anxiety Last Admin: 06/07/21 20:55 Dose: 0.25 mg Documented by: Amlodipine Besylate (Amlodipine 10 Mg Tab) 10 mg PO DAILY [facility] Last Admin: 06/10/21 08:23 Dose: 10 mg Documented by: Apixaban (Apixaban 5 Mg Tab) 5 mg PO BID [facility]; Protocol Last Admin: 06/10/21 21:07 Dose: 5 mg Documented by: Atorvastatin Calcium (Atorvastatin 20 Mg Tab) 20 mg PO DAILY [facility] Last Admin: 06/10/21 08:22 Dose: 20 mg Documented by: Budesonide (Budesonide 1 Mg/2 Ml Nebu) 1 mg INHALATION RT-BID [facility] Last Admin: 06/10/21 20:30 Dose: 1 mg Documented by: Fluticasone Propionate (Fluticasone 50mcg/[place] Nasal 16gm) 2 spray EA NOSTRIL DAILY [facility] Last Admin: 06/10/21 08:23 Dose: 2 spray Documented by: Formoterol Fumarate (Formoterol Fumarate 20 Mcg/2 Ml Nebu) 20 mcg INHALATION RT-BID [facility] Last Admin: 06/10/21 20:30 Dose: 20 mcg Documented by: Furosemide (Furosemide 10 Mg/Ml 4 Ml Vial) 40 mg IV Q12HR [facility] Last Admin: 06/10/21 21:07 Dose: 40 mg Documented by: Ibuprofen (Ibuprofen 800 Mg Tab) 800 mg PO TID PRN PRN Reason: Moderate pain Insulin Aspart (Insulin Aspart (Novolog) 100 Unit/Ml Vial) 0 unit SQ ACHS ALESSIO; Protocol Last Admin: 06/10/21 21:07 Dose: 5 unit Documented by: Levofloxacin (Levofloxacin 750 Mg Tab) 750 mg PO DAILY [facility] Last Admin: 06/10/21 08:23 Dose: 750 mg Documented by: Lorazepam (Lorazepam 2 Mg/Ml Inj) 0.5 mg IV Q6HR PRN PRN Reason: Anxiety Last Admin: 06/07/21 02:14 Dose: 0.5 mg Documented by: Melatonin (Melatonin 5 Mg Tablet) 5 mg PO HS [facility] Last Admin: 06/10/21 21:07 Dose: 5 mg Documented by: Metformin HCl (Metformin 500 Mg Tab) 500 mg PO BID [facility] Last Admin: 06/10/21 21:07 Dose: 500 mg Documented by: Methylprednisolone Sodium Succinate (Methylprednisolone Sod Succi 125 Mg/2 Ml Vial) 60 mg IV Q8HR [facility] Last Admin: 06/11/21 00:56 Dose: 60 mg Documented by: Metoprolol Tartrate (Metoprolol Tartrate 50 Mg Tab) 50 mg PO BID [facility] Last Admin: 06/10/21 21:07 Dose: 50 mg Documented by: Nicotine (Nicotine 21mg/24hr Patch) 1 patch TRANSDERM DAILY [facility] Last Admin: 06/10/21 08:22 Dose: 1 patch Documented by: Nystatin (Nystatin 100,000 Unit/Ml Susp 500,000 Unit/5 Ml Cup) 500,000 unit PO QID [facility] Last Admin: 06/10/21 21:39 Dose: 500,000 unit Documented by: Pantoprazole Sodium (Pantoprazole 40 Mg Tablet) 40 mg PO AC-BRKFST [facility] Last Admin: 06/10/21 08:22 Dose: 40 mg Documented by: Potassium Chloride (Potassium Chloride Er 20 Meq Tab.Er) 20 meq PO TID [facility] Last Admin: 06/10/21 21:07 Dose: 20 meq Documented by: Spironolactone (Spironolactone 25 Mg Tab) 25 mg PO DAILY [facility] Last Admin: 06/10/21 08:23 Dose: 25 mg Documented by: Theophylline (Theophylline 24 Hour 400 Mg Cap.Er.24h) 400 mg PO DAILY [facility] Last Admin: 06/10/21 08:22 Dose: 400 mg Documented by: Physical Exam: Gen: This is a 70-year-old male awake, alert and oriented 3, well-developed, well-nourished, obese. Sitting up in the chair. HEENT: Head is atraumatic, normocephalic. Pupils equal, round. Sclerae is anicteric. NECK: Supple. No JVD. No lymphadenopathy. No thyromegaly. LUNGS: Diminished breath sounds bilaterally at the bases with inspiratory and expiratory wheezing noted on exam on with some scattered rhonchi noted throughout. No intercostal retractions. HEART: Regular rate and rhythm. No murmur. ABDOMEN: Soft. Obese. Bowel sounds are present. No masses. No tenderness. EXTREMITIES: No pedal edema. No calf tenderness. mild bilateral lower extremity edema noted. NEUROLOGICAL: Patient is awake, alert and oriented x3. Cranial nerves 2 through 12 are grossly intact. Assessment: Chronic obstructive pulmonary disease, acute exacerbation with acute purulent tracheobronchitis with acute hypoxic respiratory failure Atrial fibrillation hypervolemic hyponatremia History of asthma, COPD Diabetes mellitus type 2 GERD Hypertension Hyperlipidemia History of degenerative joint disease history of anxiety, depression history of continued ongoing nicotine dependence Obesity with a BMI of 32.4 Full code Plan: Recommend continue with breathing inhalational treatments along with IV steroids and encouraged increased activity as tolerated. Patient continues on 3 L via nasal cannula and normally wears 2 L at home and recommend to continue with bronchodilators as well. Appropriate home medications have been resumed. Pulmonary following closely. Patient having some dependent edema and will add barb wraps to the lower extremities and encouraged elevating them while at rest. Add IV lasix and will repeat am labs. We'll continue to monitor closely and observe for improvement in COPD. Not quite back to baseline. Possible discharge in 24 hours. Objective - Vital Signs Vital signs: Vital Signs Temp 97.5 F L 06/10/21 07:56 Pulse 108 H 06/10/21 08:13 Resp 16 06/10/21 07:56 BP 150/71 06/10/21 07:56 Pulse Ox 96 06/10/21 07:56 Intake & Output 06/09/21 06/10/21 06/10/21 18:59 06:59 18:59 Intake Total 360 658 Balance 360 658 Intake: Oral 360 658 Other: Voiding Method Toilet Urinal # Voids 1 3 - Labs CBC & Chem 7: 06/10/21 09:37 06/10/21 09:37 Labs: Abnormal Lab Results - Last 24 Hours (Table) 0906/09/21 06/09/21 Range/Units 12:03 17:31 20:15 POC Glucose (mg/dL) 105 H 185 H 200 H (75-99) mg/dL 06/10/21 Range/Units 07:08 POC Glucose (mg/dL) 147 H (75-99) mg/dL
[2021-06-11 07:13] LABS: Glucose,Whole Blood 146 mg/dL (75-99)
[2021-06-11] MEDS: BUDESONIDE 1 MG/2 ML NEBU INHALATION SCH ×2 (07:54→19:27)
[2021-06-11] MEDS: FORMOTEROL FUMARATE 20 MCG/2 ML NEBU INHALATION SCH ×2 (07:57→19:27)
[2021-06-11 08:06] VITALS: RESP 18
[2021-06-11] MEDS: INSULIN ASPART (NovoLOG) 100 UNIT/ML VIAL SQ SCH ×4 (08:07→21:03)
[2021-06-11] MEDS: SPIRONOLACTONE 25 MG TAB PO SCH (08:08)
[2021-06-11] MEDS: metFORMIN 500 MG TAB PO SCH ×2 (08:08→21:02)
[2021-06-11] MEDS: amLODIPine 10 MG TAB PO SCH (08:08)
[2021-06-11] MEDS: POTASSIUM CHLORIDE ER 20 MEQ TAB.ER PO SCH ×3 (08:08→21:02)
[2021-06-11] MEDS: FUROSEMIDE 10 MG/ML 4 ML VIAL IV SCH ×2 (08:08→21:03)
[2021-06-11] MEDS: APIXABAN 5 MG TAB PO SCH ×2 (08:08→21:02)
[2021-06-11] MEDS: METOPROLOL TARTRATE 50 MG TAB PO SCH ×2 (08:08→21:02)
[2021-06-11] MEDS: NICOTINE 21MG/24HR PATCH TRANSDERM SCH (08:08)
[2021-06-11] MEDS: ATORVASTATIN 20 MG TAB PO SCH (08:08)
[2021-06-11] MEDS: PANTOPRAZOLE 40 MG TABLET PO SCH (08:09)
[2021-06-11] MEDS: LEVOFLOXACIN 750 MG TAB PO SCH (08:10)
[2021-06-11] MEDS: NYSTATIN 100,000 UNIT/ML SUSP 500,000 UNIT/5 ML CUP PO SCH ×4 (08:11→21:04)
[2021-06-11] MEDS: THEOPHYLLINE 24 HOUR 400 MG CAP.ER.24H PO SCH (08:11)
[2021-06-11 08:45] LABS: African American GFR (CKD) >90 (>60 ml/min/1.73 sqM); Anion Gap 11 mmol/L; Blood Urea Nitrogen 33 mg/dL (9-20); Calcium 9.2 mg/dL (8.4-10.2); Carbon Dioxide 31 mmol/L (22-30); Chloride 88 mmol/L (98-107); Glucose 150 mg/dL (74-99); Non-African American GFR(CKD) 88 (>60 ml/min/1.73 sqM); Potassium 4.4 mmol/L (3.5-5.1); Sodium 130 mmol/L (137-145)
[2021-06-11] MEDS: FLUTICASONE 50MCG/SPRAY NASAL 16GM EA NOSTRIL SCH (09:28)
--- NOTE | 2021-06-11 11:16 | CDI ---
Documentation Clarification Form Date: 06/11/2021 11:08:04 AM From: Teresa Carlisle RN, CCDS Admit Date: 06/08/2021 12:13:00 PM Patient Name: Olegario Villela Visit Number: [id number] Discharge Date: ATTENTION: The Clinical Documentation Specialists (CDI) and [facility] Coding Staff appreciate your assistance in clarifying documentation. Please respond to the clarification below the line at the bottom and electronically sign. The CDI & [facility] Coding staff will review the response and follow-up if needed. Please note: Queries are made part of the Legal Health Record. If you have any questions, please contact the author of this message via ITS. Dr. Tanvi Evangelista Atrial Fibrillation is documented in the past medical history, H/P and subsequent progress notes. Additional clarification regarding the type of atrial fibrillation is requested. History/Risk Factors: Atrial fibrillation, COPD, Asthma, Hypertension Clinical Indicators: 70-year-old male with history of atrial fibrillation with ongoing treatment with Eliquis present to ED on 06/06/21 and admitted on 06/08/2106/06 EKG/telemetry: Atrial fibrillation rate of 104 Treatment: Eliquis 5 MG PO BID Lopressor 50 MG PO BID Please clarify the type of atrial fibrillation, if known: [ ] Chronic [ ] Permanent [ x] Paroxysmal [ ] Persistent [ ] Other, please specify [ ] Unable to determine (Template Last Revised: January 2021) Paroxysmal Atrial fibrillation Dictated By: Agne Becerra Signed By: <Electronically signed by Ange LION> [facility]/11/21 [facility]1 [facility]
[2021-06-11 11:25] LABS: Glucose,Whole Blood 147 mg/dL (75-99)
--- NOTE | 2021-06-11 12:43 | P.PN ---
Subjective Progress Note Date: 06/11/21 Principal diagnosis: COPD exacerbation This is a 70-year-old male with a history of COPD from ongoing tobacco use and nicotine addiction, who initially presented to the emergency department at [facility], and was transferred here to our facility for further treatmen t and management. The patient has a history of atrial fibrillation as well. It's not clear to me why the patient was transferred from the outside hospital. The patient states that for the last number of days, he's been having some issues with increasing shortness of breath, cough, and clear to white phlegm production. No fever or chills. No nausea, vomiting, diarrhea, or abdominal pain. No complaints. The patient denied any chest pain or pressure. The patient was seen in the emergency room by Dr. Calvin Valle admitted with a diagnosis of COPD exacerbation. Currently, the patient's on a couple of liters of oxygen. He was recently in the hospital back in April. He is fully vacci nated against coronavirus. In addition to COPD and atrial fibrillation, the patient has a history of diabetes, acid reflux disease, hyperlipidemia, hypertension, and chronic nicotine dependence. There are no labs or x-rays from this institution. I will order a chest x-ray and labs on this patient. On today's evaluation of 06/08/2021, the patient is still having increased shortness of breath and his lungs are still tight chest is sore. He is having significant cough and and his right chest wall including the area around his nipple is quite sore to touch. No lesions or nodules identified on physical examination. He is vaccinated for COVID-19. Is known to have COPD. He has chronic atrial fibrillation. He has also diabetes hypertension hyperlipidemia. Is a chronic smoker. His blood work from today shows a white cell count of 11.2. His sodium level is at 133 with a potassium level of 4.7. Glucose is 145. Calcium level is 9.5. No other significant abnormalities in his blood w ork. He remains on long-term and evaluation with Eliminnie. He remains on bronchodilators with DuoNeb nebulized treatment [id number] and IV Solu Medrol 40 mg every 6 hours. He is also on theophylline 400 mg by mouth daily and a nicotine patch was also provided to him. 06/09/2021, the patient is not much happy with his progress. He still having cough and congestion and chest tightness and wheezing, unable to bring up much of sputum. He remains on DuoNeb nebulized treatments around the clock. He is on Solu-Medrol at a dose of 40 mg IV every 6 hours. He remains on theophylline. No new complaints otherwise for now. His chronic A. fib. He is blood work showing no major abnormalities and this is essentially from yesterday. No major hypoglycemia this point in time. The patient is seen today 06/10/2021 in follow-up on the regular medical floor. He is currently sitting up in a chair at the bedside. Awake and alert in no acute distress. Breathing a bit easier today compared to yesterday. Continues with a loose nonproductive cough. No fever or chills. Continue good O2 sat uration in the mid 90s on 3 L/m per nasal cannula. He's been afebrile. Hemodynamically stable. White count 11.8. Hemoglobin 14.3. Sodium 127. Potassium 4.5. Creatinine 0.84. He remains on DuoNeb inhalations, Pulmicort and Perforomist inhalations, IV Solu-Medrol, theophylline, low 90s. Empiric antibiotics in the form of Levaquin. He remains on oral diuretics. NicoDerm patches in place Anticoagulated with Eliquis. The patient is seen today 06/11/2021 in follow-up on the regular medical floor. He is awake and alert in no acute distress. Sitting up in a chair at the bedside. Breathing easier today compared to yesterday. Maintaining good O2 saturations in the 90s on 2 L/m per nasal cannula. He is afebrile. Hemodynamically stable. Sodium 1:30. Potassium 4.4. Bicarb 31. Creatinine 0.84. Glucose 150. He remains on DuoNeb inhalations, Pulmicort and Perforomist inhalations, IV Solu-Medrol, theophylline, low 90s. Empiric antibiotics in the form of Levaquin. He remains on oral diuretics. NicoDerm patches in place Anticoagulated with Eliquis. Objective - Vital Signs Vital signs: Vital Signs Temp 98.3 F 06/11/21 08:00 Pulse 96 06/11/21 08:30 Resp 18 06/11/21 08:00 BP 124/75 06/11/21 08:00 Pulse Ox 94 L 06/11/21 08:00 Intake & Output 06/10/21 06/11/21 06/11/21 18:59 06:59 18:59 Intake Total 776 Balance 776 Intake: Oral 776 Other: Voiding Method Toilet Toilet Urinal Urinal # Voids 1 - Exam GENERAL EXAM: Alert, obese 70-year-old male patient, on 2 L nasal cannula, comfortable in no apparent distress. HEAD: Normocephalic. EYES: Normal reaction of pupils, equal size. NOSE: Clear with pink turbinates. THROAT: No erythema or exudates. NECK: No masses, no JVD. CHEST: No chest wall deformity. LUNGS: Equal air entry with with bilateral end expiratory wheeze, diminished. CVS: S1 and S2 normal with no audible murmur, regular rhythm. ABDOMEN: No hepatosplenomegaly, normal bowel sounds, no guarding or rigidity. SPINE: No scoliosis or deformity SKIN: No rashes CENTRAL NERVOUS SYSTEM: No focal deficits, tone is normal in all 4 extremities. EXTREMITIES: There is trace peripheral edema. No clubbing, no cyanosis. Peripheral pulses are intact. - Labs CBC & Chem 7: 06/10/21 09:37 06/11/21 07:06 Labs: Abnormal Lab Results - Last 24 Hours (Table) 06/10/21 06/10/21 06/10/21 Range/Units 12:45 17:44 20:18 Sodium (137-145) mmol/L Chloride (98-107) mmol/L Carbon Dioxide (22-30) mmol/L BUN (9-20) mg/dL Glucose (74-99) mg/dL POC Glucose (mg/dL) 131 H 167 H 241 H (75-99) mg/dL 06/11/21 06/11/21 06/11/21 Range/Units 07:06 07:12 11:23 Sodium 130 L (137-145) mmol/L Chloride 88 L (98-107) mmol/L Carbon Dioxide 31 H (22-30) mmol/L BUN 33 H (9-20) mg/dL Glucose 150 H (74-99) mg/dL POC Glucose (mg/dL) 146 H 147 H (75-99) mg/dL Assessment and Plan Assessment: 1 Acute exacerbation of COPD. 2 Ongoing tobacco use with nicotine addiction. NicoDerm patches in place. 3 History of atrial fibrillation. Anticoagulated with Eliquis. 4 History of osteoarthritis. 5 Chronic hypoxemic respiratory failure. 6 History of cataracts. 7 History of gastroesophageal reflux disease. 8 History of diabetes mellitus, with diabetic neuropathy. 9 History of hypertension. 10 History of hyperlipidemia. [place]: The patient was seen and evaluated by Dr. Jones He is cleared for discharge from the pulmonary standpoint Continue his home pulmonary medications Complete a prednisone taper starting at 40 mg daily for 4 days Complete a total of 7 day course of antibiotics Follow-up in the office in 1-2 weeks if transportation available I, the cosigning physician, performed a history & physical examination of the patient. Lungs sounds with bilateral end expiratory wheeze, diminished. Maintaining good O2 saturations in the 90s on 3 L/m per nasal cannula. I discussed the assessment and plan of care with my nurse practitioner, Kelley Haq. I attest to the above note as dictated by her.
[2021-06-11 13:02] VITALS: BMI 32.4
--- NOTE | 2021-06-11 16:41 | P.PN ---
Subjective Progress Note Date: 06/11/21 This is a 70-year-old male who was recently admitted with COPD exacerbation and is being closely monitored. Patient was having worsening shortness of breath requiring more oxygen as he currently uses 2 L and upon admission in the ED patient was placed on BiPAP briefly and is continued on 4 L via nasal cannula. Pulmonary consulted and following and patient is maintained on IV steroids along with breathing inhalational treatments and bronchodilators and will continue. Patient with significant chronic back pain takes [place] at home and will resume home dose. Recommend continue with Accu-Cheks before meals and at bedtime and use sliding scale as needed. Patient to continue on empiric anabiotics for possible purulent tracheobronchitis. 06/09/2021 Patient was seen and evaluated in follow-up continues to have dyspnea and short of breath with minimal exertion. Patient states he feels somewhat improved today although not quite back to baseline. Patient continues to be bronchospastic with auditory inspiratory and expiratory wheezing noted on exam. Patient continues on breathing inhalational treatments along with Pulmicort and pulmonary following closely. Patient also continues on IV steroids and will continue for now. No new labs today and will repeat labs. Wean FiO2 as tolerated patient is maintaining 3 L via nasal cannula 94%. Patient normally wears 2 L in the outpatient setting. 06/10/2021 Patient is seen this morning in follow up continues to be short of breath with wheezing and states he continues to feel tight and not back to baseline. Patient is also having some dependent edema of bilateral lower extremities. Sodium is slightly low at 127. Will start IV lasix 40mg IV q12 and repeat am labs. Pulmonary is following and maintained on IV steroids along with bronchodilators and will continue. 06/11/2021 Patient is seen and evaluated in follow-up this morning continues to have some wheezing and shortness of breath and has been maintained on IV Lasix since yesterday with improvements in his lower extremity edema. Miguel wraps have been applied and instructed nursing staff to Miguel wrap up to the knees and patient is to continue elevating while at rest. Pulmonary following closely recommending outpatient follow-up and continuing on current medications. Patient will have a prednisone taper as he is maintained on IV steroids at this time. Sodium has improved and is 130 today. Patient is having difficulty with arranging for transportation to and from appointments in case management following. Will continue on IV Lasix and closely monitor overnight with possibility of discharge in the morning. Review of systems: Constitutional: No reports of fatigue, fever, or chills Cardiovascular: No reports of chest pain or palpitations Respiratory: No reports of worsening shortness of breath and continued dry hacking cough with chest wall pain secondary to cough, reports of not being able to expectorate phlegm just small amounts GI: No reports of nausea, vomiting, or diarrhea : No reports of dysuria or retention Neurovascular: No reports of weakness or numbness, reports some swelling of the lower extremities that has slightly improved All medications have been reviewed Active Medications Acetaminophen (Acetaminophen Tab 500 Mg Tab) 500 mg PO Q6HR PRN PRN Reason: Fever and/ or mild Pain Last Admin: 06/08/21 05:31 Dose: 500 mg Documented by: Hydrocodone Bitart/Acetaminophen (Hydrocodone/Apap 5-325mg 1 Each Tab) 1 each PO Q6HR PRN PRN Reason: Severe Pain Last Admin: 06/11/21 13:44 Dose: 1 each Documented by: Albuterol/Ipratropium (Ipratropium-Albuterol 3 Ml Neb) 3 ml INHALATION RT-QID PRN PRN Reason: Shortness Of Breath Or Wheezing Alprazolam (Alprazolam 0.25 Mg Tab) 0.25 mg PO TID PRN PRN Reason: Anxiety Last Admin: 06/07/21 20:55 Dose: 0.25 mg Documented by: Amlodipine Besylate (Amlodipine 10 Mg Tab) 10 mg PO DAILY [facility] Last Admin: 06/11/21 08:08 Dose: 10 mg Documented by: Apixaban (Apixaban 5 Mg Tab) 5 mg PO BID [facility]; Protocol Last Admin: 06/11/21 08:08 Dose: 5 mg Documented by: Atorvastatin Calcium (Atorvastatin 20 Mg Tab) 20 mg PO DAILY [facility] Last Admin: 06/11/21 08:08 Dose: 20 mg Documented by: Budesonide (Budesonide 1 Mg/2 Ml Nebu) 1 mg INHALATION RT-BID [facility] Last Admin: 06/11/21 07:54 Dose: 1 mg Documented by: Fluticasone Propionate (Fluticasone 50mcg/[place] Nasal 16gm) 2 spray EA NOSTRIL DAILY [facility] Last Admin: 06/11/21 09:28 Dose: Not Given Documented by: Formoterol Fumarate (Formoterol Fumarate 20 Mcg/2 Ml Nebu) 20 mcg INHALATION RT-BID [facility] Last Admin: 06/11/21 07:57 Dose: 20 mcg Documented by: Furosemide (Furosemide 10 Mg/Ml 4 Ml Vial) 40 mg IV Q12HR [facility] Last Admin: 06/11/21 08:08 Dose: 40 mg Documented by: Ibuprofen (Ibuprofen 800 Mg Tab) 800 mg PO TID PRN PRN Reason: Moderate pain Insulin Aspart (Insulin Aspart (Novolog) 100 Unit/Ml Vial) 0 unit SQ ACHS [facility]; Protocol Last Admin: 06/11/21 13:44 Dose: 1 unit Documented by: Levofloxacin (Levofloxacin 750 Mg Tab) 750 mg PO DAILY [facility] Last Admin: 06/11/21 08:10 Dose: 750 mg Documented by: Lorazepam (Lorazepam 2 Mg/Ml Inj) 0.5 mg IV Q6HR PRN PRN Reason: Anxiety Last Admin: 06/07/21 02:14 Dose: 0.5 mg Documented by: Melatonin (Melatonin 5 Mg Tablet) 5 mg PO HS [facility] Last Admin: 06/10/21 21:07 Dose: 5 mg Documented by: Metformin HCl (Metformin 500 Mg Tab) 500 mg PO BID [facility] Last Admin: 06/11/21 08:08 Dose: 500 mg Documented by: Methylprednisolone Sodium Succinate (Methylprednisolone Sod Succi 125 Mg/2 Ml Vial) 60 mg IV Q8HR [facility] Last Admin: 06/11/21 16:12 Dose: 60 mg Documented by: Metoprolol Tartrate (Metoprolol Tartrate 50 Mg Tab) 50 mg PO BID [facility] Last Admin: 06/11/21 08:08 Dose: 50 mg Documented by: Nicotine (Nicotine 21mg/24hr Patch) 1 patch TRANSDERM DAILY [facility] Last Admin: 06/11/21 08:08 Dose: 1 patch Documented by: Nystatin (Nystatin 100,000 Unit/Ml Susp 500,000 Unit/5 Ml Cup) 500,000 unit PO QID [facility] Last Admin: 06/11/21 13:44 Dose: 500,000 unit Documented by: Pantoprazole Sodium (Pantoprazole 40 Mg Tablet) 40 mg PO AC-BRKFST [facility] Last Admin: 06/11/21 08:09 Dose: 40 mg Documented by: Potassium Chloride (Potassium Chloride Er 20 Meq Tab.Er) 20 meq PO TID [facility] Last Admin: 06/11/21 16:13 Dose: 20 meq Documented by: Spironolactone (Spironolactone 25 Mg Tab) 25 mg PO DAILY [facility] Last Admin: 06/11/21 08:08 Dose: 25 mg Documented by: Theophylline (Theophylline 24 Hour 400 Mg Cap.Er.24h) 400 mg PO DAILY [facility] Last Admin: 06/11/21 08:11 Dose: 400 mg Documented by: Physical Exam: Gen: This is a 70-year-old male awake, alert and oriented 3, well-developed, well-nourished, obese. Sitting up in the chair. HEENT: Head is atraumatic, normocephalic. Pupils equal, round. Sclerae is anicteric. NECK: Supple. No JVD. No lymphadenopathy. No thyromegaly. LUNGS: Diminished breath sounds bilaterally at the bases with inspiratory and expiratory wheezing noted on exam on with some scattered rhonchi noted through out. No intercostal retractions. HEART: Regular rate and rhythm. No murmur. ABDOMEN: Soft. Obese. Bowel sounds are present. No masses. No tenderness. EXTREMITIES: No pedal edema. No calf tenderness. mild bilateral lower extremity edema noted. NEUROLOGICAL: Patient is awake, alert and oriented x3. Cranial nerves 2 through 12 are grossly intact. Assessment: Chronic obstructive pulmonary disease, acute exacerbation with acute purulent tracheobronchitis with acute hypoxic respiratory failure Paroxysmal Atrial fibrillation hypervolemic hyponatremia, improving History of asthma, COPD Diabetes mellitus type 2 GERD Hypertension Hyperlipidemia History of degenerative joint disease history of anxiety, depression history of continued ongoing nicotine dependence Obesity with a BMI of 32.4 Full code Plan: Recommend continue with breathing inhalational treatments along with IV steroids and encouraged increased activity as tolerated. Patient continues on 2-3 L via nasal cannula and normally wears 2 L at home and recommend to continue with bronchodilators as well. Appropriate home medications have been resumed. Pulmonary following closely. Patient having some dependent edema and have started on IV Lasix along with Miguel wraps showing improvement and will continue for another 24 hours, encouraged elevating while at rest as patient was found to have them dependent on exam. Not quite back to baseline. Anticipate discharge in 24 hours. His management following and making arrangements for possible transportation home along with other resources for transport to and from [facility]. Objective - Vital Signs Vital signs: Vital Signs Temp 98.3 F 06/11/21 08:00 Pulse 96 09/30/21 08:30 Resp 18 06/11/21 08:00 BP 124/75 06/11/21 08:00 Pulse Ox 94 L 06/11/21 08:00 Intake & Output 06/10/21 06/11/21 06/11/21 18:59 06:59 18:59 Intake Total 776 Balance 776 Intake: Oral 776 Other: Voiding Method Toilet Urinal # Voids 1 - Labs CBC & Chem 7: 06/10/21 09:37 06/11/21 07:06 Labs: Abnormal Lab Results - Last 24 Hours (Table) 06/10/21 06/10/21 06/10/21 Range/Units 09:37 09:37 12:45 WBC 11.8 H (3.8-10.6) k/uL Neutrophils # 10.8 H (1.3-7.7) k/uL Lymphocytes # 0.2 L (1.0-4.8) k/uL Sodium 127 L (137-145) mmol/L Chloride 87 L (98-107) mmol/L Carbon Dioxide (22-30) mmol/L BUN 29 H (9-20) mg/dL Glucose 231 H (74-99) mg/dL POC Glucose (mg/dL) 131 H (75-99) mg/dL 06/10/21 06/10/21 06/11/21 Range/Units 17:44 20:18 07:06 WBC (3.8-10.6) k/uL Neutrophils # (1.3-7.7) k/uL Lymphocytes # (1.0-4.8) k/uL Sodium 130 L (137-145) mmol/L Chloride 88 L (98-107) mmol/L Carbon Dioxide 31 H (22-30) mmol/L BUN 33 H (9-20) mg/dL Glucose 150 H (74-99) mg/dL POC Glucose (mg/dL) 167 H 241 H (75-99) mg/dL 06/11/21 Range/Units 07:12 WBC (3.8-10.6) k/uL Neutrophils # (1.3-7.7) k/uL Lymphocytes # (1.0-4.8) k/uL Sodium (137-145) mmol/L Chloride (98-107) mmol/L Carbon Dioxide (22-30) mmol/L BUN (9-20) mg/dL Glucose (74-99) mg/dL POC Glucose (mg/dL) 146 H (75-99) mg/dL
[2021-06-11 17:24] LABS: Glucose,Whole Blood 232 mg/dL (75-99)
[2021-06-11] MEDS: ACETAMINOPHEN TAB 500 MG TAB PO PRN (18:33)
[2021-06-11 20:34] LABS: Glucose,Whole Blood 190 mg/dL (75-99)
[2021-06-11] MEDS: MELATONIN 5 MG TABLET PO SCH (21:02)
[2021-06-12] MEDS: HYDROcodone/APAP 5-325MG 1 EACH TAB PO PRN ×3 (03:32→14:41)
[2021-06-12] MEDS: IPRATROPIUM-ALBUTEROL 3 ML NEB INHALATION PRN ×4 (03:37→11:06)
[2021-06-12 07:32] LABS: Glucose,Whole Blood 118 mg/dL (75-99)
[2021-06-12] MEDS: BUDESONIDE 1 MG/2 ML NEBU INHALATION SCH (07:45)
[2021-06-12] MEDS: FORMOTEROL FUMARATE 20 MCG/2 ML NEBU INHALATION SCH (07:45)
[2021-06-12] MEDS: INSULIN ASPART (NovoLOG) 100 UNIT/ML VIAL SQ SCH ×2 (08:25→13:40)
[2021-06-12] MEDS: PANTOPRAZOLE 40 MG TABLET PO SCH (08:41)
[2021-06-12] MEDS: SPIRONOLACTONE 25 MG TAB PO SCH (08:41)
[2021-06-12] MEDS: methylPREDNISolone SOD SUCCI 125 MG/2 ML VIAL IV SCH (08:41)
[2021-06-12] MEDS: amLODIPine 10 MG TAB PO SCH (08:41)
[2021-06-12] MEDS: POTASSIUM CHLORIDE ER 20 MEQ TAB.ER PO SCH (08:41)
[2021-06-12] MEDS: NICOTINE 21MG/24HR PATCH TRANSDERM SCH (08:41)
[2021-06-12] MEDS: METOPROLOL TARTRATE 50 MG TAB PO SCH (08:42)
[2021-06-12] MEDS: metFORMIN 500 MG TAB PO SCH (08:42)
[2021-06-12] MEDS: ATORVASTATIN 20 MG TAB PO SCH (08:42)
[2021-06-12] MEDS: APIXABAN 5 MG TAB PO SCH (08:42)
[2021-06-12] MEDS: NYSTATIN 100,000 UNIT/ML SUSP 500,000 UNIT/5 ML CUP PO SCH ×2 (08:43→13:42)
[2021-06-12] MEDS: FUROSEMIDE 10 MG/ML 4 ML VIAL IV SCH (08:43)
[2021-06-12] MEDS: THEOPHYLLINE 24 HOUR 400 MG CAP.ER.24H PO SCH (08:44)
[2021-06-12] MEDS: LEVOFLOXACIN 750 MG TAB PO SCH (08:44)
[2021-06-12] MEDS: FLUTICASONE 50MCG/SPRAY NASAL 16GM EA NOSTRIL SCH (08:44)
[2021-06-12 08:59] VITALS: BP 128/83; TEMP 97.5
[2021-06-12 11:24] VITALS: PULSE 105
[2021-06-12] MEDS: ACETAMINOPHEN TAB 500 MG TAB PO PRN (11:29)
--- NOTE | 2021-06-12 12:06 | P.PN ---
Subjective Progress Note Date: 06/12/21 Principal diagnosis: COPD exacerbation This is a 70-year-old male with a history of COPD from ongoing tobacco use and nicotine addiction, who initially presented to the emergency department at [facility], and was transferred here to our facility for further treatmen t and management. The patient has a history of atrial fibrillation as well. It's not clear to me why the patient was transferred from the outside hospital. The patient states that for the last number of days, he's been having some issues with increasing shortness of breath, cough, and clear to white phlegm production. No fever or chills. No nausea, vomiting, diarrhea, or abdominal pain. No complaints. The patient denied any chest pain or pressure. The patient was seen in the emergency room by Dr. Calvin Valle admitted with a diagnosis of COPD exacerbation. Currently, the patient's on a couple of liters of oxygen. He was recently in the hospital back in April. He is fully vacci nated against coronavirus. In addition to COPD and atrial fibrillation, the patient has a history of diabetes, acid reflux disease, hyperlipidemia, hypertension, and chronic nicotine dependence. There are no labs or x-rays from this institution. I will order a chest x-ray and labs on this patient. On today's evaluation of 06/08/2021, the patient is still having increased shortness of breath and his lungs are still tight chest is sore. He is having significant cough and and his right chest wall including the area around his nipple is quite sore to touch. No lesions or nodules identified on physical examination. He is vaccinated for COVID-19. Is known to have COPD. He has chronic atrial fibrillation. He has also diabetes hypertension hyperlipidemia. Is a chronic smoker. His blood work from today shows a white cell count of 11.2. His sodium level is at 133 with a potassium level of 4.7. Glucose is 145. Calcium level is 9.5. No other significant abnormalities in his blood w ork. He remains on long-term and evaluation with [facility]. He remains on bronchodilators with DuoNeb nebulized treatment [id number] and IV Solu Medrol 40 mg every 6 hours. He is also on theophylline 400 mg by mouth daily and a nicotine patch was also provided to him. 06/09/2021, the patient is not much happy with his progress. He still having cough and congestion and chest tightness and wheezing, unable to bring up much of sputum. He remains on DuoNeb nebulized treatments around the clock. He is on Solu-Medrol at a dose of 40 mg IV every 6 hours. He remains on theophylline. No new complaints otherwise for now. His chronic A. fib. He is blood work showing no major abnormalities and this is essentially from yesterday. No major hypoglycemia this point in time. The patient is seen today 06/10/2021 in follow-up on the regular medical floor. He is currently sitting up in a chair at the bedside. Awake and alert in no acute distress. Breathing a bit easier today compared to yesterday. Continues with a loose nonproductive cough. No fever or chills. Continue good O2 sat uration in the mid 90s on 3 L/m per nasal cannula. He's been afebrile. Hemodynamically stable. White count 11.8. Hemoglobin 14.3. Sodium 127. Potassium 4.5. Creatinine 0.84. He remains on DuoNeb inhalations, Pulmicort and Perforomist inhalations, IV Solu-Medrol, theophylline, low 90s. Empiric antibiotics in the form of Levaquin. He remains on oral diuretics. NicoDerm patches in place Anticoagulated with Eliquis. The patient is seen today 06/11/2021 in follow-up on the regular medical floor. He is awake and alert in no acute distress. Sitting up in a chair at the bedside. Breathing easier today compared to yesterday. Maintaining good O2 saturations in the 90s on 2 L/m per nasal cannula. He is afebrile. Hemodynamically stable. Sodium 1:30. Potassium 4.4. Bicarb 31. Creatinine 0.84. Glucose 150. He remains on DuoNeb inhalations, Pulmicort and Perforomist inhalations, IV Solu-Medrol, theophylline, low 90s. Empiric antibiotics in the form of Levaquin. He remains on oral diuretics. NicoDerm patches in place. Anticoagulated with Eliquis. The patient is seen today at her first 2020 in follow-up on the regular medical floor. He is currently up ambulating in his room. No worsening shortness of breath, cough or congestion. He is maintaining good O2 saturations up to 96% on 2 L/m per nasal cannula. He's been afebrile. Blood glucose 118. He remains on IV Cymetra, DuoNeb inhalations, Pulmicort and Perforomist inhalations, theophylline. IV Lasix. Oral Aldactone. NicoDerm patch in place. Anticoagulated with Eliquis. Antibiotics in the form of Levaquin. Less bronchospastic and wheezy today. Objective - Vital Signs Vital signs: Vital Signs Temp 97.5 F L 06/12/21 08:00 Pulse 105 H 06/12/21 11:19 Resp 18 06/12/21 08:00 BP 128/83 06/12/21 08:00 Pulse Ox 96 06/12/21 08:00 Intake & Output 06/11/21 06/12/21 06/12/21 18:59 06:59 18:59 Weight 108.409 kg Other: Voiding Method Toilet Toilet Urinal Urinal # Voids 2 1 - Exam GENERAL EXAM: Alert, obese 70-year-old male patient, on 2 L nasal cannula, comf ortable in no apparent distress. HEAD: Normocephalic. EYES: Normal reaction of pupils, equal size. NOSE: Clear with pink turbinates. THROAT: No erythema or exudates. NECK: No masses, no JVD. CHEST: No chest wall deformity. LUNGS: Equal air entry with with faint bilateral end expiratory wheeze, dimin ished. CVS: S1 and S2 normal with no audible murmur, regular rhythm. ABDOMEN: No hepatosplenomegaly, normal bowel sounds, no guarding or rigidity. SPINE: No scoliosis or deformity SKIN: No rashes CENTRAL NERVOUS SYSTEM: No focal deficits, tone is normal in all 4 extremities. EXTREMITIES: There is trace peripheral edema. Miguel wraps to lower extremity No clubbing, no cyanosis. Peripheral pulses are intact. - Labs CBC & Chem 7: 06/10/21 09:37 06/11/21 07:06 Labs: Abnormal Lab Results - Last 24 Hours (Table) 06/11/21 06/11/21 06/12/21 Range/Units 17:22 20:33 07:20 POC Glucose (mg/dL) 232 H 190 H 118 H (75-99) mg/dL Assessment and Plan Assessment: 1 Acute exacerbation of COPD, recovered in stable on his 2 L nasal cannula. 2 Ongoing tobacco use with nicotine addiction. NicoDerm patches in place. 3 History of atrial fibrillation. Anticoagulated with Eliquis. 4 History of osteoarthritis. 5 Chronic hypoxemic respiratory failure. 6 History of cataracts. 7 History of gastroesophageal reflux disease. 8 History of diabetes mellitus, with diabetic neuropathy. 9 History of hypertension. 10 History of hyperlipidemia. Plan: The patient was seen and evaluated by Dr. Jones He is cleared for discharge from the pulmonary standpoint Again educated regarding the importance of complete smoking cessation Continue NicoDerm patches Continue his home pulmonary medications Complete a prednisone taper starting at 40 mg daily for 4 days Complete a total of 7 day course of antibiotics Follow-up in the office in 1-2 weeks if transportation available I, the cosigning physician, performed a history & physical examination of the patient. Lungs sounds with faint bilateral end expiratory wheeze, diminished. Maintaining good O2 saturations in the 90s on 2 L/m per nasal cannula. I discussed the assessment and plan of care with my nurse practitioner, Kelley Haq. I attest to the above note as dictated by her.
[2021-06-12 12:24] LABS: Glucose,Whole Blood 157 mg/dL (75-99)
--- NOTE | 2021-06-15 08:58 | P.DS ---
Providers Date of admission: 06/08/21 12:13 Expected date of discharge: 06/12/21 Attending physician: Gisela Munoz Consults: 06/06/21 21:21 Consult Physician Routine Consulting Provider: Calvin Martin Reason/Comments: COPD exacerbation Do you want consulting provider notified?: Yes Primary care physician: Stated None Hospital Course: Final diagnosis Chronic obstructive pulmonary disease, acute exacerbation with acute purulent tracheobronchitis with acute hypoxic respiratory failure Paroxysmal Atrial fibrillation hypervolemic hyponatremia, improving History of asthma, COPD Diabetes mellitus type 2 GERD Hypertension Hyperlipidemia History of degenerative joint disease history of anxiety, depression history of continued ongoing nicotine dependence Obesity with a BMI of 32.4 Full code Discharge disposition Patient is being discharged in a stable condition with guarded prognosis to home. Patient will follow-up with visiting physicians and palliative upon d ischarge. Patient will also follow-up with pulmonary Dr. Martin for further testing. Patient will continue on oral Levaquin for the next 5 days to complete the course. Total time taken is greater than 35 minutes. Hospital course This is a 70-year-old male who was recently admitted with COPD exacerbation and is being closely monitored. Patient was having worsening shortness of breath requiring more oxygen as he currently uses 2 L and upon admission in the ED patient was placed on BiPAP briefly and is continued on 4 L via nasal cannula. Pulmonary consulted and following and patient is maintained on IV steroids along with breathing inhalational treatments and bronchodilators and will continue. Patient with significant chronic back pain takes [place] at home and will resume home dose. Recommend continue with Accu-Cheks before meals and at bedtime and use sliding scale as needed. Patient to continue on empiric anabiotics for possible purulent tracheobronchitis. 06/09/2021 Patient was seen and evaluated in follow-up continues to have dyspnea and short of breath with minimal exertion. Patient states he feels somewhat improved today although not quite back to baseline. Patient continues to be bronchospastic with auditory inspiratory and expiratory wheezing noted on exam. Patient continues on breathing inhalational treatments along with Pulmicort and pulmonary following closely. Patient also continues on IV steroids and will continue for now. No new labs today and will repeat labs. Wean FiO2 as tolerated patient is maintaining 3 L via nasal cannula 94%. Patient normally wears 2 L in the outpatient setting. 06/10/2021 Patient is seen this morning in follow up continues to be short of breath with wheezing and states he continues to feel tight and not back to baseline. Patient is also having some dependent edema of bilateral lower extremities. Sodium is slightly low at 127. Will start IV lasix 40mg IV q12 and repeat am labs. Pulmonary is following and maintained on IV steroids along with bronchodilators and will continue. 06/11/2021 Patient is seen and evaluated in follow-up this morning continues to have some wheezing and shortness of breath and has been maintained on IV Lasix since yesterday with improvements in his lower extremity edema. Miguel wraps have been applied and instructed nursing staff to Miguel wrap up to the knees and patient is to continue elevating while at rest. Pulmonary following closely recommending outpatient follow-up and continuing on current medications. Patient will have a prednisone taper as he is maintained on IV steroids at this time. Sodium has improved and is 130 today. Patient is having difficulty with arranging for transportation to and from appointments in case management following. Will continue on IV Lasix and closely monitor overnight with possibility of discharge in the morning. 06/12/2021 Patient seen and evaluated in follow-up this morning continues to have some shortness of breath and was evaluated for home oxygen and is 88-89% with exercise and will continue on 3 L via nasal cannula. Patient will continue on oral Levaquin along with a prednisone taper and continued bronchodilators along with nebulized treatments. Patient instructed to follow up with pulmonary in the outpatient setting for further testing. Patient does have visiting physicians along with palliative and will continue. Again extensively discussed about discontinuing smoking on discharge. Currently no reports of chest pain, shortness of breath, or palpitations. Patient is afebrile. No reports of nausea or vomiting and patient is tolerating diet. Patient will be discharged home today. Guarded prognosis. Gen: This is a 70-year-old male awake, alert and oriented 3, well-developed, well-nourished, obese. Sitting up in the chair. HEENT: Head is atraumatic, normocephalic. Pupils equal, round. Sclerae is anicteric. NECK: Supple. No JVD. No lymphadenopathy. No thyromegaly. LUNGS: Diminished breath sounds bilaterally at the bases with inspiratory and expiratory wheezing noted on exam on with some scattered rhonchi noted throughout. No intercostal retractions. HEART: Regular rate and rhythm. No murmur. ABDOMEN: Soft. Obese. Bowel sounds are present. No masses. No tenderness. EXTREMITIES: No pedal edema. No calf tenderness. mild bilateral lower extremity edema noted. NEUROLOGICAL: Patient is awake, alert and oriented x3. Cranial nerves 2 through 12 are grossly intact. Please refer to medication reconciliation sheet for a list of medications. Patient Condition at Discharge: Fair Plan - Discharge Summary Discharge Rx Participant: Yes New Discharge Prescriptions: New Budesonide 1 mg INHALATION BID 30 Days #30 each predniSONE 10 mg PO DIRECTED #30 tab Acetaminophen Tab [Tylenol] 500 mg PO Q6HR PRN tab PRN Reason: Fever and/ or mild Pain Continue Omeprazole 20 mg PO DAILY metFORMIN HCL 500 mg PO BID Albuterol Sulfate [Albuterol Sulfate Hfa] 2 puff INHALATION RT-QID PRN PRN Reason: Shortness Of Breath Or Wheezing Albuterol Nebulized [Ventolin Nebulized] 2.5 mg INHALATION RT-QID PRN PRN Reason: Shortness Of Breath Theophylline 24 Hour [[place]-24] 400 mg PO DAILY 30 Days #30 cap.er.24h Metoprolol Tartrate [Lopressor] 50 mg PO BID Apixaban [Eliquis] 5 mg PO BID #60 tab HYDROcodone/APAP 5-325MG [[place] 5-325] 1 tab PO TID PRN PRN Reason: Pain Budesonide/Formoterol Fumarate [Symbicort 160-4.5 Mcg Inhaler] 2 puff INHALATION RT-BID Ibuprofen [Motrin] 800 mg PO TID PRN PRN Reason: Pain Nicotine 21Mg/24Hr Patch [Habitrol] 1 patch TRANSDERM DAILY Spironolactone [Aldactone] 25 mg PO DAILY Fluticasone Nasal [place] [Flonase Nasal [place]] 2 spr EA NOSTRIL DAILY Atorvastatin [Lipitor] 20 mg PO DAILY amLODIPine [Norvasc] 10 mg PO DAILY Furosemide [Lasix] 40 mg PO BID@0900,1600 Ipratropium-Albuterol Nebulize [Duoneb 0.5 mg-3 mg/3 ml Soln] 3 ml INHALATION RT-QID PRN PRN Reason: Shortness Of Breath Or Wheezing Levofloxacin [Levaquin] 750 mg PO DAILY 5 Days #5 tab Changed Potassium Chloride ER [K-Dur 20] 20 meq PO BID #0 Discontinued methylPREDNISolone [Medrol Dose Pack] See Taper PO DAILY Discharge Medication List Albuterol Nebulized [Ventolin Nebulized] 2.5 mg INHALATION RT-QID PRN 05/08/20 [History] Albuterol Sulfate [Albuterol Sulfate Hfa] 2 puff INHALATION RT-QID PRN 05/08/20 [History] Omeprazole 20 mg PO DAILY 05/08/20 [History] metFORMIN HCL 500 mg PO BID 05/08/20 [History] Theophylline 24 Hour [[place]-24] 400 mg PO DAILY 30 Days #30 cap.er.24h 05/16/20 [Rx] Metoprolol Tartrate [Lopressor] 50 mg PO BID 07/07/20 [History] Apixaban [Eliquis] 5 mg PO BID #60 tab 07/08/20 [Rx] Atorvastatin [Lipitor] 20 mg PO DAILY 01/12/21 [History] amLODIPine [Norvasc] 10 mg PO DAILY 01/12/21 [History] HYDROcodone/APAP 5-325MG [[place] 5-325] 1 tab PO TID PRN 02/05/21 [History] Budesonide/Formoterol Fumarate [Symbicort 160-4.5 Mcg Inhaler] 2 puff INHALATION RT-BID 05/02/21 [History] Furosemide [Lasix] 40 mg PO BID@0900,1600 05/02/21 [History] Ibuprofen [Motrin] 800 mg PO TID PRN 05/02/21 [History] Ipratropium-Albuterol Nebulize [Duoneb 0.5 mg-3 mg/3 ml Soln] 3 ml INHALATION RT-QID PRN 05/02/21 [History] Nicotine 21Mg/24Hr Patch [Habitrol] 1 patch TRANSDERM DAILY 05/02/21 [History] Spironolactone [Aldactone] 25 mg PO DAILY 05/02/21 [History] Fluticasone Nasal [place] [Flonase Nasal [place]] 2 spr EA NOSTRIL DAILY 06/06/21 [History] Acetaminophen Tab [Tylenol] 500 mg PO Q6HR PRN tab 06/11/21 [Rx] Budesonide 1 mg INHALATION BID 30 Days #30 each 06/11/21 [Rx] Levofloxacin [Levaquin] 750 mg PO DAILY 5 Days #5 tab 06/11/21 [Rx] Potassium Chloride ER [K-Dur 20] 20 meq PO BID #0 06/11/21 [Rx] predniSONE 10 mg PO DIRECTED #30 tab 06/12/21 [Rx] Follow up Appointment(s)/Referral(s): Calvin Martin DO [Doctor of Osteopathic Medicine] - 06/26/21 3:00 pm (Appointment is with Kelley Haq [employer]) [facility], [NON-STAFF] - 1 Week None,Stated [Primary Care Provider] - 1-2 days Patient Instructions/Handouts: How to Stop Smoking (DC), Using Oxygen at Home (DC), COPD (Chronic Obstructive Pulmonary Disease) (DC) Activity/Diet/Wound Care/Special Instructions: Activity Limited until follow-up Follow-up with primary care provider on discharge Follow-up with pulmonary outpatient Continue his medications as prescribed Continue with Medrol Dosepak and antibiotics until finished Continue with Miguel wraps to bilateral lower extremities for compression stockings and elevate lower extremities while at rest Continue with palliative care Discharge Disposition: HOME WITH HOME HEALTH SERVICES
== END 2021-06-12 14:46 | disposition home health service (06) | DRG 190 ==
LOC: EC 18:39 → 6NMEDSUR 21:23 → OBSVTOIN 06-08 12:13 → 6NMEDSUR 06-12 00:25
PROVIDERS: ADMIT Hospitalist; ATTEND Hospitalist
DX: J44.1 Chronic obstructive pulmonary disease with (acute) exacerbation (principal); J96.21 Acute and chronic respiratory failure with hypoxia; E87.1 Hypo-osmolality and hyponatremia; K21.9 Gastro-esophageal reflux disease without esophagitis; E78.5 Hyperlipidemia, unspecified; I10 Essential (primary) hypertension; M19.90 Unspecified osteoarthritis, unspecified site; G89.29 Other chronic pain; E11.40 Type 2 diabetes mellitus with diabetic neuropathy, unspecified; E66.9 Obesity, unspecified; F32.9 Major depressive disorder, single episode, unspecified; I48.0 Paroxysmal atrial fibrillation; F41.9 Anxiety disorder, unspecified; F17.210 Nicotine dependence, cigarettes, uncomplicated; Z87.01 Personal history of pneumonia (recurrent); Z99.81 Dependence on supplemental oxygen; Z90.49 Acquired absence of other specified parts of digestive tract; Z68.32 Body mass index [BMI] 32.0-32.9, adult; Z79.01 Long term (current) use of anticoagulants; Z79.51 Long term (current) use of inhaled steroids; Z79.52 Long term (current) use of systemic steroids; Z79.84 Long term (current) use of oral hypoglycemic drugs; Z79.899 Other long term (current) drug therapy; Z80.0 Family history of malignant neoplasm of digestive organs; Z81.1 Family history of alcohol abuse and dependence; Z82.49 Family history of ischemic heart disease and other diseases of the circulatory system; Z82.5 Family history of asthma and other chronic lower respiratory diseases; Z91.81 History of falling
CPT/HCPCS: 71045; 80048; 85025; 93005; 94640; 94660; 94667; 94760; 99285

== ENCOUNTER 2021-12-07 11:23 | Inpatient (IN) | payer MEDICARE ==
[2021-12-07] MEDS ORDERED: IPRATROPIUM-ALBUTEROL 3 ML NEB INHALATION STA (12:06)
[2021-12-07] MEDS ORDERED: ASPIRIN 81 MG PO STA (12:08)
[2021-12-07 12:43] LABS: Anisocytosis Slight; Basophils % (A) 0 %; Eosinophils # (A) 0.1 k/uL (0-0.7); Eosinophils % (A) 1 %; HCT 43.6 % (39.0-53.0); Lymphocytes % (A) 8 %; MCH 30.8 pg (25.0-35.0); MCHC 32.1 g/dL (31.0-37.0); MCV 96.2 fL (80.0-100.0); Mean Platelet Volume 7.4; Monocytes # (A) 0.7 k/uL (0-1.0); Monocytes % (A) 5 %; Neutrophils # (A) 10.3 k/uL (1.3-7.7); Neutrophils % (A) 84 %; Platelet Count 253 k/uL (150-450); RBC 4.54 m/uL (4.30-5.90); RDW 16.4 % (11.5-15.5); WBC 12.3 k/uL (3.8-10.6)
--- NOTE | 2021-12-07 13:03 | ED ---
General Adult HPI - General Chief complaint: Shortness of Breath Stated complaint: SOB Time Seen by Provider: 12/07/21 11:39 Source: EMS, RN notes reviewed, old records reviewed Mode of arrival: EMS Limitations: no limitations - History of Present Illness Initial comments: Patient is a 71-year-old male with past history remarkable for heart failure, COPD, atrial fibrillation, diabetes, chronic hypoxic respiratory failure on home nasal cannula who presents emergency Department complaining of increased shortness breath over the last 4 days. Endorses worsening exertional dyspnea. Nurses slightly worsening lower extremity edema. Denies any fevers, but does endorse a cough that is productive of some mucus. Denies any abdominal pain, nausea, vomiting. Has no other acute complaint at this time. Is concerned regarding [place] PD. In route to the hospital he did receive IV steroids as well as a DuoNeb. He is to plan to liters nasal cannula at home and is currently saturating well on 6 L nasal cannula. Patient also endorses attempting to shoot himself last week. He'll then unloaded gun at home and states that he has been having thoughts last week of 100 himself due to his chronic respiratory disease. He states he currently does not have those thoughts. He did not shoot himself successfully because someone remove the bolts from the gun. His no other acute complaints at this time. No history of suicide attempts. Denies any homicidal ideations, and at times, plans. Denies any visual or auditory hallucinations. He presents over concern for his breathing. Patient did receive the Covid and flu vaccines. No known sick contacts. - Related Data Home Medications Medication Instructions Recorded Confirmed Albuterol Nebulized [Ventolin 2.5 mg INHALATION RT-QID PRN 05/08/20 12/07/21 Nebulized] Albuterol Sulfate [Albuterol 2 puff INHALATION RT-Q4H PRN 05/08/20 12/07/21 Sulfate Hfa] Omeprazole 20 mg PO DAILY 05/08/20 12/07/21 metFORMIN HCL 500 mg PO BID 05/08/20 12/07/21 Metoprolol Tartrate [Lopressor] 50 mg PO BID-W/MEALS 07/07/20 12/07/21 Atorvastatin [Lipitor] 20 mg PO DAILY 01/12/21 12/07/21 amLODIPine [Norvasc] 10 mg PO DAILY 01/12/21 12/07/21 HYDROcodone/APAP 5-325MG [[place] 1 tab PO Q4-6H PRN 02/05/21 12/07/21 5-325] Budesonide/Formoterol Fumarate 2 puff INHALATION RT-BID 05/02/21 12/07/21 [Symbicort 160-4.5 Mcg Inhaler] Furosemide [Lasix] 40 mg PO DAILY 05/02/21 12/07/21 Ipratropium-Albuterol Nebulize 3 ml INHALATION RT-Q4H PRN 05/02/21 12/07/21 [Duoneb 0.5 mg-3 mg/3 ml Soln] Spironolactone [Aldactone] 25 mg PO DAILY 05/02/21 12/07/21 Fluticasone Nasal [place] [Flonase 1 spr EA NOSTRIL DAILY 06/06/21 12/07/21 Nasal [place]] Gabapentin [Neurontin] 100 mg PO BID 12/07/21 12/07/21 Moxifloxacin HCl [Moxifloxacin 1 drop RIGHT EYE Q6H 12/07/21 12/07/21 0.5%] Potassium Chloride ER [K-Dur 10] 10 meq PO DAILY 12/07/21 12/07/21 Tamsulosin [Flomax] 0.4 mg PO DAILY 12/07/21 12/07/21 Theophylline Er 400mg Tablet 400 mg PO DAILY 12/07/21 12/07/21 diazePAM [Valium] 5 mg PO DAILY PRN 12/07/21 12/07/21 predniSONE 10 mg PO DAILY 12/07/21 12/07/21 Previous Rx's Medication Instructions Recorded Apixaban [Eliquis] 5 mg PO BID #60 tab 07/08/20 Allergies Allergy/AdvReac Type Severity Reaction Status Date / Time doxycycline Allergy Anaphylaxis Verified 12/07/21 14:56 Penicillins Allergy Anaphylaxis Verified 12/07/21 14:56 Review of Systems ROS Statement: Those systems with pertinent positive or pertinent negative responses have been documented in the HPI. Review of Systems: CONST: Denies fever EYES: Denies blurry vision ENT: Denies nasal congestion C/V: Denies Chest pain RESP: Endorses shortness of breath GI: Denies abdominal pain : Denies dysuria SKIN: Denies rash. MSK: Denies joint pain. NEURO: Denies headache PSYCH: Denies homicidal ideations/plans/attempts. Denies visual or auditory hallucinations. He endorses suicidal ideations last week as well as an attempt with a gun. Was unsuccessful. ROS Other: All systems not noted in ROS Statement are negative. Past Medical History Past Medical History: Atrial Fibrillation, Asthma, COPD, Diabetes Mellitus, GERD/Reflux, Hyperlipidemia, Hypertension, Osteoarthritis (OA), Pneumonia Additional Past Medical History / Comment(s): Afib RVR, home oxygen prn, bronchitis, pt states he is on metformin to prevent becoming diabetic, ne uropathy bilateral feet/L hand, chronic pain back,/bilateral hips/knees/elbows and shoulders, L heel pain, FALLS, cataracts. History of Any Multi-Drug Resistant Organisms: None Reported Past Surgical History: Appendectomy Additional Past Surgical History / Comment(s): Colonoscopy Past Anesthesia/Blood Transfusion Reactions: No Reported Reaction Past Psychological History: Anxiety, Depression Smoking Status: Current every day smoker Past Alcohol Use History: Occasional Past Drug Use History: None Reported - Past Family History Father Family Medical History: Congestive Heart Failure (CHF), COPD Additional Family Medical History / Comment(s): Father was an alcoholic but was able to quit drinking Mother Family Medical History: Congestive Heart Failure (CHF), COPD Additional Family Medical History / Comment(s): Mother was an alcoholic. Daughter(s) Additional Family Medical History / Comment(s): Liver cancer General Exam - General Exam Comments Initial Comments: General: Appears in mild respiratory distress with mild increased respiratory effort. HEAD: Normal with no signs of head trauma. EYES: PERRLA, EOMI, conjunctiva normal, no discharge. ENT: Hearing grossly intact, normal oropharynx. RESPIRATORY: Bilateral end expiratory wheezing. No obvious rhonchi. Mildly increased work of breathing. Saturating 96% on 6 L nasal cannula. Typically on 2 L nasal cannula. C/V: Atrial fibrillation rate controlled. S1 and S2 auscultated. Peripheral pulses 2+ intact throughout. 1+ pitting edema in bilateral lower extremities. ABD: Abd is soft, nontender, nondistended EXT: Normal range of motion, no obvious deformity SKIN: No rashes or lesions observed on exposed skin. NEURO: Alert and oriented 4. No focal deficits. Limitations: no limitations Course Vital Signs 12/07/21 12/07/21 12/07/21 11:24 12:05 12:54 Temperature 98.1 F Pulse Rate 97 84 94 Respiratory 28 H 28 H 24 Rate Blood Pressure 134/88 116/76 O2 Sat by Pulse 94 L 97 96 Oximetry 12/07/21 12/07/21 12/07/21 13:00 13:17 13:26 Temperature Pulse Rate 85 86 80 Respiratory 22 Rate Blood Pressure O2 Sat by Pulse 97 Oximetry 12/07/21 12/07/21 14:00 15:07 Temperature Pulse Rate 84 81 Respiratory 22 22 Rate Blood Pressure 142/67 132/87 O2 Sat by Pulse 96 96 Oximetry Medical Decision Making - Medical Decision Making Is in the patient's presentation and physical exam, I'm concerned for possible cardiopulmonary etiology for his current acute on chronic hypoxic respiratory failure requiring increased nasal oxygenation. Does appear to be a COPD exacerbation. Cannot rule out possibly of heart failure exacerbation. He also had an suicide attempt last week and seems to be feeling suicidal at home. Therefore suicide precautions will be placed as well as a sitter. Psychiatry will be consulted to evaluate the patient on an inpatient basis. He will be a dmitted following workup. He was in agreement this plan. Patient will receive breathing treatments, and he already received steroids. He will be given a aspirin. He was in agreement this plan. EKG showed no signs of acute ischemia. Chest x-ray revealed findings consistent for bronchitis which fits his clinical picture. Laboratory studies were remarkable for a mild leukocytosis of 12.3. Troponin is negative. BNP is 431. Covid influenza negative. Remainder the labs are unremarkable. On reevaluation, patient's wheezing is improved. I would like to admit the hospital at this time he was in agreement this plan. We'll continue IV steroids as well as breathing treatments. He'll be started on azithromycin for acute bronchitis. Psychiatry was consulted. Sitter was ordered. He was in agreement this plan. I spoke with the admitting team under who accepted the patient. Dr. Martin of pulmonology was also consulted to evaluate the patient. - Lab Data Result diagrams: 12/07/21 12:15 12/07/21 13:09 Lab Results 12/07/21 12/07/21 12/07/21 Range/Units 12:15 12:15 12:15 WBC 12.3 H (3.8-10.6) k/uL RBC 4.54 (4.30-5.90) m/uL Hgb 14.0 (13.0-17.5) gm/dL Hct 43.6 (39.0-53.0) % MCV 96.2 (80.0-100.0) fL MCH 30.8 (25.0-35.0) pg MCHC 32.1 (31.0-37.0) g/dL RDW 16.4 H (11.5-15.5) % Plt Count 253 (150-450) k/uL MPV 7.4 Neutrophils % 84 % Lymphocytes % 8 % Monocytes % 5 % Eosinophils % 1 % Basophils % 0 % Neutrophils # 10.3 H (1.3-7.7) k/uL Lymphocytes # 1.0 (1.0-4.8) k/uL Monocytes # 0.7 (0-1.0) k/uL Eosinophils # 0.1 (0-0.7) k/uL Basophils # 0.0 (0-0.2) k/uL Anisocytosis Slight PT 10.1 (9.0-12.0) sec INR 0.9 (<1.2) APTT 24.7 (22.0-30.0) sec Sodium (137-145) mmol/L Potassium (3.5-5.1) mmol/L Chloride (98-107) mmol/L Carbon Dioxide (22-30) mmol/L Anion Gap mmol/L BUN (9-20) mg/dL Creatinine (0.66-1.25) mg/dL Est GFR (CKD-EPI)AfAm (>60 ml/min/1.73 sqM) Est GFR (CKD-EPI)NonAf (>60 ml/min/1.73 sqM) Glucose (74-99) mg/dL Calcium (8.4-10.2) mg/dL Total Bilirubin (0.2-1.3) mg/dL AST (17-59) U/L ALT (4-49) U/L Alkaline Phosphatase (38-126) U/L Troponin I (0.000-0.034) ng/mL NT-Pro-B Natriuret Pep 431 pg/mL Total Protein (6.3-8.2) g/dL Albumin (3.5-5.0) g/dL Coronavirus (PCR) (Not Detectd) Influenza Type A RNA (Not Detectd) Influenza Type B (PCR) (Not Detectd) 12/07/21 12/07/21 12/07/21 Range/Units 12:15 12:15 13:09 WBC (3.8-10.6) k/uL RBC (4.30-5.90) m/uL Hgb (13.0-17.5) gm/dL Hct (39.0-53.0) % MCV (80.0-100.0) fL MCH (25.0-35.0) pg MCHC (31.0-37.0) g/dL RDW (11.5-15.5) % Plt Count (150-450) k/uL MPV Neutrophils % % Lymphocytes % % Monocytes % % Eosinophils % % Basophils % % Neutrophils # (1.3-7.7) k/uL Lymphocytes # (1.0-4.8) k/uL Monocytes # (0-1.0) k/uL Eosinophils # (0-0.7) k/uL Basophils # (0-0.2) k/uL Anisocytosis PT (9.0-12.0) sec INR (<1.2) APTT (22.0-30.0) sec Sodium (137-145) mmol/L Potassium (3.5-5.1) mmol/L Chloride (98-107) mmol/L Carbon Dioxide (22-30) mmol/L Anion Gap mmol/L BUN (9-20) mg/dL Creatinine (0.66-1.25) mg/dL Est GFR (CKD-EPI)AfAm (>60 ml/min/1.73 sqM) Est GFR (CKD-EPI)NonAf (>60 ml/min/1.73 sqM) Glucose (74-99) mg/dL Calcium (8.4-10.2) mg/dL Total Bilirubin (0.2-1.3) mg/dL AST (17-59) U/L ALT (4-49) U/L Alkaline Phosphatase (38-126) U/L Troponin I <0.012 (0.000-0.034) ng/mL NT-Pro-B Natriuret Pep pg/mL Total Protein (6.3-8.2) g/dL Albumin (3.5-5.0) g/dL Coronavirus (PCR) Not Detected (Not Detectd) Influenza Type A RNA Not Detected (Not Detectd) Influenza Type B (PCR) Not Detected (Not Detectd) 12/07/21 Range/Units 13:09 WBC (3.8-10.6) k/uL RBC (4.30-5.90) m/uL Hgb (13.0-17.5) gm/dL Hct (39.0-53.0) % MCV (80.0-100.0) fL MCH (25.0-35.0) pg MCHC (31.0-37.0) g/dL RDW (11.5-15.5) % Plt Count (150-450) k/uL MPV Neutrophils % % Lymphocytes % % Monocytes % % Eosinophils % % Basophils % % Neutrophils # (1.3-7.7) k/uL Lymphocytes # (1.0-4.8) k/uL Monocytes # (0-1.0) k/uL Eosinophils # (0-0.7) k/uL Basophils # (0-0.2) k/uL Anisocytosis PT (9.0-12.0) sec INR (<1.2) APTT (22.0-30.0) sec Sodium 133 L (137-145) mmol/L Potassium 4.9 (3.5-5.1) mmol/L Chloride 95 L (98-107) mmol/L Carbon Dioxide 33 H (22-30) mmol/L Anion Gap 5 mmol/L BUN 14 (9-20) mg/dL Creatinine 0.71 (0.66-1.25) mg/dL Est GFR (CKD-EPI)AfAm >90 (>60 ml/min/1.73 sqM) Est GFR (CKD-EPI)NonAf >90 (>60 ml/min/1.73 sqM) Glucose 113 H (74-99) mg/dL Calcium 8.6 (8.4-10.2) mg/dL Total Bilirubin 0.8 (0.2-1.3) mg/dL AST 15 L (17-59) U/L ALT 17 (4-49) U/L Alkaline Phosphatase 46 (38-126) U/L Troponin I (0.000-0.034) ng/mL NT-Pro-B Natriuret Pep pg/mL Total Protein 6.3 (6.3-8.2) g/dL Albumin 3.7 (3.5-5.0) g/dL Coronavirus (PCR) (Not Detectd) Influenza Type A RNA (Not Detectd) Influenza Type B (PCR) (Not Detectd) - EKG Data -: EKG Interpreted by Me EKG Comments: 12-lead Electrocardiogram Interpretation Note EKG was reviewed and interpreted by myself. 12-lead ECG performed at 1239 is interpreted by me as revealing atrial fibrillation, rate controlled at a rate of 84 beats per minute. [place] is normal. MD interval is unobtainable, QRS duration is 90 ms, QTc is 397 ms.. There were no ST or T wave abnormalities to suggest myocardial ischemia or injury. R wave progression across the precordium was satisfactory. By my interpretation this EKG is non-diagnostic for acute ischemia. There is a good deal of baseline artifact secondary to patient's respiratory rate in breathing. Disposition Clinical Impression: COPD exacerbation, Acute and chronic respiratory failure with hypoxia, Suicidal ideation Disposition: ADMITTED IP TO THIS HOSP Condition: Serious
--- NOTE | 2021-12-07 13:19 | XR ---
EXAMINATION TYPE: XR chest 2V DATE OF EXAM: 12/07/2021 COMPARISON: 06/07/2021 HISTORY: 71 year-old male shortness of breath, difficulty breathing TECHNIQUE: PA and lateral views FINDINGS: Heart is borderline in size. Hyperinflation. Increased interstitial density. No norma consolidation o r pleural effusion. IMPRESSION: COPD. Borderline cardiomegaly and some increasing interstitial density. Correlate for possible bronch itis or mild CHF with pulmonary vascular congestion. There is no norma airspace disease or pleural ef fusion.
[2021-12-07 13:44] LABS: INR 0.9 (<1.2); Partial Thromboplastin Time 24.7 sec (22.0-30.0); Prothrombin Time 10.1 sec (9.0-12.0)
[2021-12-07 13:48] LABS: ALT 17 U/L (4-49); AST 15 U/L (17-59); African American GFR (CKD) >90 (>60 ml/min/1.73 sqM); Albumin 3.7 g/dL (3.5-5.0); Alkaline Phosphatase 46 U/L (38-126); Anion Gap 5 mmol/L; Blood Urea Nitrogen 14 mg/dL (9-20); Calcium 8.6 mg/dL (8.4-10.2); Carbon Dioxide 33 mmol/L (22-30); Chloride 95 mmol/L (98-107); Glucose 113 mg/dL (74-99); Non-African American GFR(CKD) >90 (>60 ml/min/1.73 sqM); Potassium 4.9 mmol/L (3.5-5.1); Sodium 133 mmol/L (137-145); Total Bilirubin 0.8 mg/dL (0.2-1.3); Total Protein 6.3 g/dL (6.3-8.2)
[2021-12-07] MEDS ORDERED: NALOXONE 0.4 MG/ML 1 ML VIAL IV PRN (14:15)
[2021-12-07] MEDS ORDERED: MOXIFLOXACIN HCL 0.5% DROPS 3 ML BTL RIGHT EYE SCH (15:45)
[2021-12-07] MEDS ORDERED: IPRATROPIUM-ALBUTEROL 3 ML NEB INHALATION SCH (16:00)
[2021-12-07] MEDS: AZITHROMYCIN 500 MG in SODIUM CHLORIDE 0.9% 250 ML IVPB SCH (16:37)
[2021-12-07] MEDS: diazePAM 5 MG TAB PO PRN (16:38)
[2021-12-07] MEDS: HYDROcodone/APAP 5-325MG 1 EACH TAB PO PRN (16:38)
[2021-12-07] MEDS: METOPROLOL TARTRATE 50 MG TAB PO SCH (16:39)
[2021-12-07] MEDS: metFORMIN 500 MG TAB PO SCH (16:39)
[2021-12-07] MEDS ORDERED: methylPREDNISolone SOD SUCCI 40 MG/ML 1 ML VIAL IV SCH (18:00)
[2021-12-07] MEDS: NICOTINE 21MG/24HR PATCH TRANSDERM SCH (18:24)
[2021-12-07] MEDS: methylPREDNISolone SOD SUCCI 125 MG/2 ML VIAL IV SCH (18:35)
--- NOTE | 2021-12-07 19:15 | HP ---
HISTORY AND PHYSICAL DATE OF SERVICE: 12/07/2021 CHIEF COMPLAINTS: Shortness of breath and suicidal ideations. HISTORY OF PRESENT ILLNESS: This 71-year-old gentleman with a past medical history of atrial fibrillation, history of asthma, COPD, being followed Dr. Jackson and Dr. Jones in the outpatient setting, was complaining of increasing shortness of breath and inability to perform activities of daily living. The patient apparently continues to smoke. Because of increasing difficulties, the patient came to [facility] and was admitted for further evaluation and treatment. The patient had some suicidal ideation. Basic labs are noted. COVID-19 was negative. Chest x-ray, which was reviewed personally by me, showed features of COPD, emphysematous chest and increased bronchovascular markings without any evidence of any pneumonia at this time. There is no history of any fever, rigor or chills. PAST MEDICAL HISTORY: Atrial fibrillation, asthma, COPD, diabetes mellitus. HOME MEDICATIONS: Home medications include prednisone, metformin. Doses and other medications are reviewed. See list. ALLERGIES: DOXYCYCLINE AND PENICILLIN. FAMILY HISTORY: History of COPD and CHF. SOCIAL HISTORY: History of smoking. Occasional alcohol intake. REVIEW OF SYSTEMS: Fourteen-point review of systems negative except as mentioned earlier. PHYSICAL EXAMINATION: Pulse is 81, blood pressure 144/60, respiration 20. NECK: No jugular venous distention, but breathing efforts are markedly increased. CARDIOVASCULAR: S1, S2 muffled. RESPIRATION: Breathing efforts are markedly increased. Bilateral scattered rhonchi and crackles and expiratory wheezing also present. ABDOMEN: Soft, obese. LEGS: No edema. No swelling. NERVOUS SYSTEM: Diffusely weak. LABS: WBC 12.2, hemoglobin 14, sodium 133. ASSESSMENT: 1. Chronic obstructive pulmonary disease, acute exacerbation, with acute purulent tracheobronchitis. 2. Suicidal ideations. 3. Atrial fibrillation. 4. Diabetes mellitus, type 2. 5. Hypertension. 6. Hyperlipidemia. RECOMMENDATIONS AND DISCUSSION: In this 71-year-old gentleman who presented with multiple complex medical issues, at this time I recommend to continue current medications, intensive bronchodilator treatment, empiric antibiotics, IV steroids. Monitor blood sugars closely. Pulmonary and psychiatric consultations. Suicidal precautions. Prognosis guarded because of multiple complex medical issues. A copy of this dictation is being forwarded to Dr. Jackson. MMODL / IJN: [id number] /
[2021-12-07] MEDS: FORMOTEROL FUMARATE 20 MCG/2 ML NEBU INHALATION SCH (19:21)
[2021-12-07] MEDS: IPRATROPIUM-ALBUTEROL 3 ML NEB INHALATION SCH (19:22)
[2021-12-07] MEDS: BUDESONIDE 1 MG/2 ML NEBU INHALATION SCH (19:22)
[2021-12-07] MEDS ORDERED: SYMBICORT 160-4.5 MCG INHALER INHALATION SCH (20:00)
[2021-12-07 20:22] LABS: Glucose,Whole Blood 161 mg/dL (75-99)
[2021-12-07] MEDS: INSULIN ASPART (NovoLOG) 100 UNIT/ML VIAL SQ SCH (20:43)
[2021-12-07] MEDS: GABAPENTIN 100 MG CAP PO SCH (20:44)
[2021-12-07] MEDS: APIXABAN 5 MG TAB PO SCH (20:44)
[2021-12-08] MEDS: methylPREDNISolone SOD SUCCI 125 MG/2 ML VIAL IV SCH ×5 (01:00→23:37)
[2021-12-08] MEDS: IPRATROPIUM-ALBUTEROL 3 ML NEB INHALATION PRN (03:27)
[2021-12-08] MEDS: HYDROcodone/APAP 5-325MG 1 EACH TAB PO PRN ×5 (03:49→21:11)
[2021-12-08] MEDS: diazePAM 5 MG TAB PO PRN (04:18)
[2021-12-08 07:08] LABS: Glucose,Whole Blood 279 mg/dL (75-99)
[2021-12-08] MEDS: APIXABAN 5 MG TAB PO SCH ×2 (07:12→20:18)
[2021-12-08] MEDS: amLODIPine 10 MG TAB PO SCH (07:12)
[2021-12-08] MEDS: THEOPHYLLINE 24 HOUR 400 MG CAP.ER.24H PO SCH (07:13)
[2021-12-08] MEDS: ATORVASTATIN 20 MG TAB PO SCH (07:13)
[2021-12-08] MEDS: METOPROLOL TARTRATE 50 MG TAB PO SCH ×2 (07:13→16:51)
[2021-12-08] MEDS: POTASSIUM CHLORIDE ER 10 MEQ TAB.ER.PRT PO SCH (07:13)
[2021-12-08] MEDS: SPIRONOLACTONE 25 MG TAB PO SCH (07:13)
[2021-12-08] MEDS: GABAPENTIN 100 MG CAP PO SCH ×2 (07:13→20:19)
[2021-12-08] MEDS: metFORMIN 500 MG TAB PO SCH ×2 (07:13→16:51)
[2021-12-08] MEDS: PANTOPRAZOLE 40 MG TABLET PO SCH (07:13)
[2021-12-08] MEDS: TAMSULOSIN 0.4 MG CAP.ER.24H PO SCH (07:13)
[2021-12-08] MEDS: NICOTINE 21MG/24HR PATCH TRANSDERM SCH (07:13)
[2021-12-08] MEDS: INSULIN ASPART (NovoLOG) 100 UNIT/ML VIAL SQ SCH ×4 (07:18→20:24)
[2021-12-08] MEDS: IPRATROPIUM-ALBUTEROL 3 ML NEB INHALATION SCH ×4 (08:17→20:20)
[2021-12-08] MEDS: BUDESONIDE 1 MG/2 ML NEBU INHALATION SCH ×2 (08:17→20:20)
[2021-12-08] MEDS: FORMOTEROL FUMARATE 20 MCG/2 ML NEBU INHALATION SCH ×2 (08:17→20:19)
[2021-12-08] MEDS: FLUTICASONE 50MCG/SPRAY NASAL 16GM EA NOSTRIL SCH (08:48)
[2021-12-08] MEDS ORDERED: FUROSEMIDE 40 MG TAB PO SCH (09:00)
[2021-12-08 10:13] LABS: Basophils # (A) 0.02 X 10*3/uL (0.00-0.10); Basophils % (A) 0.1 %; Eosinophils # (A) 0 X 10*3/uL (0.04-0.35); Eosinophils % (A) 0 %; HCT 42.5 % (39.6-50.0); HGB 13.2 g/dL (13.0-17.0); Immature Grans, Automated 0.9 %; Lymphocytes # (A) 0.47 X 10*3/uL (0.90-5.00); Lymphocytes % (A) 3.5 %; MCH 29.7 pg (27.0-32.0); MCHC 31.1 g/dL (32.0-37.0); MCV 95.5 fL (80.0-97.0); Monocytes # (A) 0.29 X 10*3/uL (0.20-1.00); Monocytes % (A) 2.1 %; NRBC Per 100 WBC 0 /100 WBCS (0.0-0.0); Neutrophils % (A) 93.4 %; Platelet Count 238 X 10*3/uL (140-440); RBC 4.45 X 10*6/uL (4.40-5.60); RDW 15.8 % (11.5-14.5)
[2021-12-08 10:30] LABS: African American GFR (CKD) 109.3 (60.0-200.0); Albumin/Globulin Ratio 2.11 (1.60-3.17); Anion Gap 11.6 mmol/L (10.00-18.00); BUN/Creat Ratio 17.57 Ratio (12.00-20.00); Blood Urea Nitrogen 12.3 mg/dL (9.0-27.0); Carbon Dioxide 28.4 mmol/L (20.0-27.5); Globulin 1.9 g/dL (1.6-3.3); Non-African American GFR(CKD) 94.3 (60.0-200.0); Potassium 4.8 mmol/L (3.5-5.5); Total Bilirubin 0.5 mg/dL (0.30-1.20); Total Protein 5.9 g/dL (6.2-8.2)
--- NOTE | 2021-12-08 10:52 | P.CNPUL ---
History of Present Illness Consult date: 12/08/21 Requesting physician: Tigre E Juanjo Reason for consult: dyspnea, COPD Chief complaint: Shortness of breath History of present illness: This is a 71-year-old male patient who follows with Dr. Jackson with a known history of morbid obesity, diabetes mellitus, hypertension, hyperlipidemia, osteoarthritis, atrial fibrillation, diabetic neuropathy, chronic pain syndrome, anxiety/depression with previous suicidal ideations as recent as last week and an apparent attempt to shoot himself or someone had remove the bullet from his gun. He also has a history of severe chronic obstructive pulmonary disease, oxygen dependent and chronic and ongoing tobacco dependence of greater than 50 years. He has not followed up in the pulmonary office post previous discharges for COPD exacerbations. The patient has received Moderna CoVID vaccines and flu vaccines. He feels his shortness of breath and COPD exacerbations could be related to the vaccines as well as the addicting nicotine content levels in his cigarettes. He also states he is in palliative care and has been spoken to in the past regarding possible hospice care. Chest x-ray shows evidence of COPD and borderline cardiomegaly with some increasing interstitial densities. Mild CHF with pulmonary vascular congestion and possible bronchitis within the differential. No norma airspace disease or pleural effusions. EKG reveals evidence of atrial fibrillation with controlled ventricular response. White count 13.5. Hemoglobin 13.2. Sodium 132. Potassium 4.8. BUN 12. Creatinine 0.7. AST 9. ALT 17. He is initiated on DuoNeb inhalations, Pulmicort and Perforomist inhalations, IV Solu-Medrol. He is also on theophylline and empiric antibiotics in the form of azithromycin. NicoDerm patch in place. He is anticoagulated with Eliquis. Review of Systems REVIEW OF SYSTEMS: CONSTITUTIONAL: Denies any recent significant weight loss or weight gain. EYES: Denies change in vision. EARS, NOSE, MOUTH, THROAT: Denies headaches, denies sore throat. CARDIOVASCULAR: Denies chest pain, palpitations or syncopal episodes. RESPIRATORY: Positive for shortness of breath, cough, congestion no hemoptysis. GASTROINTESTINAL: Denies change in appetite, denies abdominal pain GENITOURINARY: Denies hematuria, denies infections. MUSKULOSKELETAL: Denies pain, denies swelling. INTEGUMENTARY: Denies rash, denies eczema. NEUROLOGICAL: Denies recent memory loss, no recent seizure activity. PSYCHIATRIC: Positive for depression. HEMATOLOGIC/LYMPHATIC: Denies anemia, denies enlarged lymph nodes. Past Medical History Past Medical History: Atrial Fibrillation, Asthma, COPD, Diabetes Mellitus, GERD/Reflux, Hyperlipidemia, Hypertension, Osteoarthritis (OA), Pneumonia Additional Past Medical History / Comment(s): Afib RVR, home oxygen prn, bronchitis, pt states he is on metformin to prevent becoming diabetic, neuropathy bilateral feet/L hand, chronic pain back,/bilateral hips/knees/elbows and shoulders, L heel pain, FALLS, cataracts. History of Any Multi-Drug Resistant Organisms: None Reported Past Surgical History: Appendectomy Additional Past Surgical History / Comment(s): Colonoscopy Past Anesthesia/Blood Transfusion Reactions: No Reported Reaction Past Psychological History: Anxiety, Depression Smoking Status: Current every day smoker Past Alcohol Use History: Occasional Past Drug Use History: None Reported - Past Family History Father Family Medical History: Congestive Heart Failure (CHF), COPD Additional Family Medical History / Comment(s): Father was an alcoholic but was able to quit drinking Mother Family Medical History: Congestive Heart Failure (CHF), COPD Additional Family Medical History / Comment(s): Mother was an alcoholic. Daughter(s) Additional Family Medical History / Comment(s): Liver cancer Medications and Allergies Home Medications Medication Instructions Recorded Confirmed Type Albuterol Nebulized [Ventolin 2.5 mg INHALATION RT-QID PRN 05/08/20 12/07/21 History Nebulized] Albuterol Sulfate [Albuterol 2 puff INHALATION RT-Q4H PRN 05/08/20 12/07/21 History Sulfate Hfa] Omeprazole 20 mg PO DAILY 05/08/20 12/07/21 History metFORMIN HCL 500 mg PO BID 05/08/20 12/07/21 History Metoprolol Tartrate [Lopressor] 50 mg PO BID-W/MEALS 07/07/20 12/07/21 History Apixaban [Eliquis] 5 mg PO BID #60 tab 07/08/20 12/07/21 Rx Atorvastatin [Lipitor] 20 mg PO DAILY 01/12/21 12/07/21 History amLODIPine [Norvasc] 10 mg PO DAILY 01/12/21 12/07/21 History HYDROcodone/APAP 5-325MG [[place] 1 tab PO Q4-6H PRN 02/05/21 12/07/21 History 5-325] Budesonide/Formoterol Fumarate 2 puff INHALATION RT-BID 05/02/21 12/07/21 History [Symbicort 160-4.5 Mcg Inhaler] Furosemide [Lasix] 40 mg PO DAILY 05/02/21 12/07/21 History Ipratropium-Albuterol Nebulize 3 ml INHALATION RT-Q4H PRN 05/02/21 12/07/21 History [Duoneb 0.5 mg-3 mg/3 ml Soln] Spironolactone [Aldactone] 25 mg PO DAILY 05/02/21 12/07/21 History Fluticasone Nasal [place] [Flonase 1 spr EA NOSTRIL DAILY 06/06/21 12/07/21 History Nasal [place]] Gabapentin [Neurontin] 100 mg PO BID 12/07/21 12/07/21 History Moxifloxacin HCl [Moxifloxacin 1 drop RIGHT EYE Q6H 12/07/21 12/07/21 History 0.5%] Potassium Chloride ER [K-Dur 10] 10 meq PO DAILY 12/07/21 12/07/21 History Tamsulosin [Flomax] 0.4 mg PO DAILY 12/07/21 12/07/21 History Theophylline Er 400mg Tablet 400 mg PO DAILY 12/07/21 12/07/21 History diazePAM [Valium] 5 mg PO DAILY PRN 12/07/21 12/07/21 History predniSONE 10 mg PO DAILY 12/07/21 12/07/21 History Allergies Allergy/AdvReac Type Severity Reaction Status Date / Time doxycycline Allergy Anaphylaxis Verified 12/07/21 14:56 Penicillins Allergy Anaphylaxis Verified 12/07/21 14:56 Physical Exam Vitals: Vital Signs Temp Pulse Pulse Resp BP BP Pulse Ox 12/08/21 08:39 84 12/08/21 08:28 80 12/08/21 08:27 80 12/08/21 08:17 80 12/08/21 07:02 97.9 F 95 20 152/76 100 12/08/21 03:37 80 12/08/21 03:28 82 12/08/21 02:17 98.6 F 86 13 136/77 96 12/07/21 19:39 80 12/07/21 19:33 98.0 F 79 20 133/69 98 12/07/21 19:32 80 12/07/21 19:31 80 12/07/21 19:22 76 12/07/21 18:27 98.4 F 76 20 124/64 94 L 12/07/21 18:00 70 20 93 L 12/07/21 17:00 73 20 94 L 12/07/21 16:36 81 20 144/68 96 12/07/21 16:27 82 12/07/21 16:19 76 12/07/21 15:07 81 22 132/87 96 12/07/21 14:00 84 22 142/67 96 12/07/21 13:26 80 12/07/21 13:17 86 12/07/21 13:00 85 22 97 12/07/21 12:54 94 24 96 12/07/21 12:05 84 28 H 116/76 97 12/07/21 11:24 98.1 F 97 28 H 134/88 94 L Intake and Output 12/07/21 12/08/21 12/08/21 22:59 06:59 14:59 Intake Total 540 180 Balance 540 180 Intake: Intake, IV Titration 300 Amount Azithromycin 500 mg In 250 Sodium Chloride 0.9% 250 ml @ 250 mls/hr IVPB DAILY@1600 [facility] Rx#: [id number] cefTRIAXone 1 gm In 50 Sodium Chloride 0.9% 50 ml @ 100 mls/hr IVPB Q24HR [facility] Rx#:[id number] Oral 240 180 Other: Voiding Method Toilet Toilet # Voids 3 Weight 113.398 kg GENERAL EXAM: Alert, obese 71-year-old male patient, on 4 L nasal cannula, comfortable in no apparent distress. HEAD: Normocephalic. EYES: Normal reaction of pupils, equal size. NOSE: Clear with pink turbinates. THROAT: No erythema or exudates. NECK: No masses, no JVD. CHEST: No chest wall deformity. LUNGS: Equal air entry with bilateral end expiratory wheeze, diminished. CVS: S1 and S2 normal with no audible murmur, irregular rhythm. ABDOMEN: No hepatosplenomegaly, normal bowel sounds, no guarding or rigidity. SPINE: No scoliosis or deformity SKIN: No rashes CENTRAL NERVOUS SYSTEM: No focal deficits, tone is normal in all 4 extremities. EXTREMITIES: There is 1+ peripheral edema. Ages of chronic venous stasis. No clubbing, no cyanosis. Peripheral pulses are intact. Results - Laboratory Findings CBC and BMP: 12/08/21 07:21 12/08/21 07:21 PT/INR, D-dimer PT 10.1 sec (9.0-12.0) 12/07/21 12:15 INR 0.9 (<1.2) 12/07/21 12:15 Abnormal lab findings: Abnormal Labs 12/07/21 12/07/21 12/07/21 12:15 13:09 20:20 WBC 12.3 H MCHC RDW 16.4 H Immature Gran # Neutrophils # 10.3 H Lymphocytes # Eosinophils # Sodium 133 L Chloride 95 L Carbon Dioxide 33 H Glucose 113 H POC Glucose (mg/dL) 161 H AST 15 L Total Protein 12/08/21 12/08/21 12/08/21 07:05 07:21 07:21 WBC 13.50 H MCHC 31.1 L RDW 15.8 H Immature Gran # 0.12 H Neutrophils # 12.60 H Lymphocytes # 0.47 L Eosinophils # 0 L Sodium 132 L Chloride 92 L Carbon Dioxide 28.4 H Glucose 269 H POC Glucose (mg/dL) 279 H AST 9 L Total Protein 5.9 L - Diagnostic Findings Chest x-ray: image reviewed Assessment and Plan Assessment: 1 Acute exacerbation of severe, oxygen dependent, chronic obstructive pulmonary disease 2 Chronic and ongoing tobacco dependence of greater than 50 years 3 Recent suicidal ideations 4 Atrial fibrillation, anticoagulated with Eliquis 5 Hyperlipidemia 6 Diabetes mellitus 7 Diabetic neuropathy 8 Hypertension 9 Gastroesophageal reflux disease 10 Osteoarthritis 11 Anxiety/depression Plan: The patient was seen and evaluated Chest x-ray and labs reviewed Continue bronchodilators, IV Solu-Medrol Continue empiric antibiotics Titrate down the FiO2 as tolerated Educated regarding the importance of complete smoking cessation NicoDerm patch has been applied puppy sitter at the bedside Psychiatry consult pending We will continue to follow and make further recommendations based on his clinical status I have personally seen and examined the patient, performed the documentation and the assessment and plan as written. Number of minutes spent on the visit: 20. Time with Patient: Greater than 30
[2021-12-08 11:16] LABS: Glucose,Whole Blood 152 mg/dL (75-99)
[2021-12-08] MEDS: FUROSEMIDE 10 MG/ML 4 ML VIAL IV SCH (13:00)
--- NOTE | 2021-12-08 13:48 | CDI ---
Documentation Clarification Form Date: 12/08/2021 01:31:13 PM From: Snow Singh CCS, CCDS Admit Date: 12/07/2021 02:16:00 PM Patient Name: Olegario Villela Visit Number: [id number] Discharge Date: ATTENTION: The Clinical Documentation Specialists (CDI) and [facility] Coding Staff appreciate your assistance in clarifying documentation. Please respond to the clarification below the line at the bottom and electronically sign. The CDI & [facility] Coding staff will review the response and follow-up if needed. Please note: Queries are made part of the Legal Health Record. If you have any questions, please contact the author of this message via ITS. Dr. Gisela Munoz: Heart failure and possible heart failure exacerbation is documented in the 12/07 ED Note. Additional information regarding the Acuity & Type of CHF is requested. History/Risk Factors per the 12/07 H/P: COPD, Bronchitis, Asthma, Diabetes Mellitus, Pneumonia, Smoker, Atrial Fibrillation, Clinical Indicators: Presented to the ED on 12/07 via EMS with SOB with history of Heart Failure, COPD, A Fib, DM & Chronic Hypoxic Respiratory Failure on Home O2 and also with worsening lower extremity edema & worsening dyspnea & productive mucus. Patient admitted to suicidal ideation. Admit with COPD Exacerbation, Acute & Chronic Respiratory Failure with Hypoxia and Suicidal Ideation 12/07 VS: T 98.1, P 97, R 28 (sob, tachypnea), BP 134/88, PO 94 6Lnc, BMI: 33.9 12/07 LAB: BNP 431 12/07 CXR: COPD. Borderline cardiomegaly and some increasing interstitial density. Correlate for possible bronchitis or mild CHF with pulmonary vascular congestion. There is no norma airspace disease or pleural effusion. Echocardiogram Results (Most Recent: 06/05/2020): Mild LVH, Left systolic function is low normal w/EF 50-55%, right ventricle is mildly enlarged, Tract- mild MR, Mild TR, Mild-moderate pulmonary hypertension. Treatment: INH Duoneb 3 ml x1, INH Duoneb 3mL q4H/prn, INH Duoneb 3mL q4H, IV Azithromycin 250 mls @ 250 mls/hr Daily, Habitrol patch, IV Solumedrol 60 mg q6H, INH Pulmicort BID, INH symbicort 2 puffs BID, INH Perforomist 20 mcg BID 12/08: po Lasix 40 mg Daily, IV Lasix 40 mg Daily. Home meds: Prednisone, Metformin, Lasix 40 mg daily, INH Symbicort, INH Albuterol, INH Ventolin, Home O2 In your professional opinion, can you please clarify the Acuity & type of CHF if known? [ ] Acute Systolic Heart Failure [ ] Chronic Systolic Heart Failure [ ] Acute on Chronic Systolic Heart Failure [ ] Other CHF specificity, please specify: [ ] Heart Failure ruled out this admission [ ] Unable to determine (Template Last Revised: October 2020) chronic diastolic chf MTDD
--- NOTE | 2021-12-08 14:15 | PN ---
PROGRESS NOTE DATE OF SERVICE: 12/08/2021 This 71-year-old gentleman who was admitted with COPD, acute exacerbation, with suicidal ideation, is being closely monitored. No chest pain. No palpitations. No fever. PHYSICAL EXAMINATION: Pulse is 80, blood pressure 152/76, respiration 20. HEENT: Conjunctivae normal. NECK: No jugular venous distention. CARDIOVASCULAR: S1, S2 muffled. RESPIRATION: Bilateral scattered rhonchi and crackles. ABDOMEN: Soft. LEGS: No edema. No swelling. NERVOUS SYSTEM: No focal deficit. LABS: Reviewed. ASSESSMENT: 1. Chronic obstructive pulmonary disease, acute exacerbation, with acute purulent tracheobronchitis. 2. Suicidal ideation. 3. Atrial fibrillation. 4. Diabetes mellitus, type 2. 5. Hypertension. 6. Hyperlipidemia. RECOMMENDATIONS AND DISCUSSION: I recommend to continue current medications, continue with the monitoring, symptomatic treatment. Continue with the bronchodilators, empiric antibiotics, steroids. Pulmonary consultation. Psychiatric evaluation. Further recommendations to follow. MMODL / IJN: [id number] /
--- NOTE | 2021-12-08 15:33 | P.CN ---
Psychiatric Consult - . Consult date: 12/08/21 Consult:: 12/08/21 15:33 IDENTIFYING DATA: This patient is a , retired, 71-year-old male with a significant history of heart failure, COPD, age of fibrillation, COPD on home oxygen, who presented to the hospital with a chief complaint of shortness of breath over the past 4 days. HISTORY OF PRESENT ILLNESS: The patient presented to the hospital on 12/07/2021, brought into the emergency department by EMS for shortness of breath. The patient informed his nurse that he has been experiencing suicidal ideation and last week had an attempt to try and shoot himself however someone had remove the bullet from his gun. Psychiatry has been consulted for evaluation of suicidal ideation and recent attempt. On evaluation on the medical floor, the patient reports that he was feeling extremity frustrated with his inability to breathe and he felt that he could no longer stand to suffer and therefore he attempted to shoot himself. He reports that he has never had any prior attempts at suicide. He is currently denying any significant depressive symptoms. He is not reporting any anhedonia, hopelessness, helplessness, change in sleep, change in appetite, or excessive feelings of guilt. He reports that he was only trying to end his suffering. He does express a strong desire to live at this time. He states that he would like to be put on a ventilator if he is unable to breathe. He reports he wants to live for his daughter and his 2 grandchildren. He hopes that he has a third grandchild on the way. The patient reports a significant traumatic history. He reports that at the age of 4, he began drinking alcohol as both of his parents were heavy alcoholics. He reports a significant amount of trauma however states that he does not have time to elaborate on all of it. Despite his traumatic history, and the patient does not endorse any hypervigilance, arousal, expressing phenomena, or avoidance symptoms. He does however report significant symptoms of cluster B personality disorder including instability in relationships, splitting, issues with self- esteem, and mood dysregulation. In regards other mood disorders, the patient denies any significant history of bipolar disorder. He reports no grandiosity, increased goal-directed activity, or periods of excessive energy. He denies any significant history of auditory or visual hallucinations. He reports no paranoia or other delusions. PAST PSYCHIATRIC HISTORY: Patient reports no significant psychiatric history aside from alcoholism. He reports being peers who prescribed Elavil in the distant past. Patient denies any previous psychiatric hospitalizations. Patient denies any psychiatric outpatient follow-up. Patient denies any history of suicide attempts in the past. PAST MEDICAL HISTORY: Past Medical History: Atrial Fibrillation, Asthma, COPD, Diabetes Mellitus, GERD/Reflux, Hyperlipidemia, Hypertension, Osteoarthritis (OA), Pneumonia Additional Past Medical History / Comment(s): Afib RVR, home oxygen prn, bronchitis, pt states he is on metformin to prevent becoming diabetic, neuropathy bilateral feet/L hand, chronic pain back,/bilateral hips/knees/elbows and shoulders, L heel pain, FALLS, cataracts. History of Any Multi-Drug Resistant Organisms: None Reported Past Surgical History: Appendectomy Additional Past Surgical History / Comment(s): Colonoscopy Past Anesthesia/Blood Transfusion Reactions: No Reported Reaction Past Psychological History: Anxiety, Depression Smoking Status: Current every day smoker Past Alcohol Use History: Occasional Past Drug Use History: None Reported ALLERGIES: Doxycycline, penicillin CHEMICAL DEPENDENCY HISTORY: Patient reports that he was previously an alcoholic and quit alcohol approximately 3 years ago. He reports that in the 70s, he used methamphetamines and heroin. He states that he has not used since then. He does report that he smokes 1.5 - 2 packs of cigarettes per day. He denies any m arijuana use. FAMILY PSYCHIATRIC/SUBSTANCE USE HISTORY: Patient reports both his parents were alcoholics. He states that his sister has depression. He reports that he has 2 brothers who by suicide. SOCIAL HISTORY: Patient was born in [place] and raised in [place], [place]. He has 2 children, with one who from liver poisoning. He has daughter is living and has given him 2 grandchildren. He currently lives alone. He does report significant support from friends including his best friend Inge Wan and his neighbor Zane Del Angel. He does admit to owning to firearms however states that his neighbor knows where they are is able to remove them. MENTAL STATUS EXAM: General Appearance: Patient appears to be stated age is alert, and nitially ornery but later cooperative on approach.. Patient appears to have fair hygiene and grooming wearing hospital gown with fair eye contact. Behavior: Patient is calmly lying in bed without any agitated behavior. Speech: Patient's speech is fluent and nonpressured. Mood/Affect: Patient reports their mood is "frustrated", affect is congruent and later polite and friendly Suicidality/Homicidality: Patient denies having any suicidal or homicidal ideation intent or plan. Perceptions: Patient denies any visual hallucinations and denies any auditory hallucinations Though content/process: There is no evidence of any delusional thought content and thought process is linear and goal-directed. Memory and concentration: AOX3, grossly intact for the purposes of this session. Can spell "WORLD" backwards Judgment and insight: Fair IMPRESSIONS: Cluster B personality disorder Nicotine dependence Alcohol use disorder, in remission PLAN: -Continue your medical management. -At this time patient DOES NOT meet criteria for inpatient psychiatric admission. We were able to safety plan with the patient. This provider was able to contact his neighbor Zane Del Angel ([phone]) who confirmed that there are firearms in the home and he knows where they are and he can remove them for the time being. The patient is agreeable to this. -Delirium precautions recommended with patient including - avoiding use of narcotics and [employer] sedatives, limit anticholinergic medications when possible, frequent re-orientation, minimize use of restraints, open window shades during the day and close them at night -Would recommend the following medication changes/additions: No medication recommendations are made at this time. Patient does not wish to start any antidepressant medications. -Discontinue one-to-one sitter -Recommend outpatient psychotherapy for this patient -Psychiatry will sign off at this point, please contact with any questions. 12/08/21 15:33
[2021-12-08 16:34] LABS: Glucose,Whole Blood 217 mg/dL (75-99)
[2021-12-08] MEDS: AZITHROMYCIN 500 MG in SODIUM CHLORIDE 0.9% 250 ML IVPB SCH (16:52)
[2021-12-08 20:00] LABS: Glucose,Whole Blood 156 mg/dL (75-99)
[2021-12-09] MEDS: IPRATROPIUM-ALBUTEROL 3 ML NEB INHALATION PRN (01:24)
[2021-12-09] MEDS: methylPREDNISolone SOD SUCCI 125 MG/2 ML VIAL IV SCH ×3 (05:06→17:39)
[2021-12-09 06:58] LABS: Glucose,Whole Blood 148 mg/dL (75-99)
[2021-12-09] MEDS: INSULIN ASPART (NovoLOG) 100 UNIT/ML VIAL SQ SCH ×4 (07:42→21:15)
[2021-12-09] MEDS: NICOTINE 21MG/24HR PATCH TRANSDERM SCH (07:43)
[2021-12-09] MEDS: diazePAM 5 MG TAB PO PRN (07:44)
[2021-12-09] MEDS: metFORMIN 500 MG TAB PO SCH ×2 (07:44→17:28)
[2021-12-09] MEDS: TAMSULOSIN 0.4 MG CAP.ER.24H PO SCH (07:44)
[2021-12-09] MEDS: amLODIPine 10 MG TAB PO SCH (07:44)
[2021-12-09] MEDS: HYDROcodone/APAP 5-325MG 1 EACH TAB PO PRN ×4 (07:44→21:16)
[2021-12-09] MEDS: METOPROLOL TARTRATE 50 MG TAB PO SCH ×2 (07:44→17:28)
[2021-12-09] MEDS: GABAPENTIN 100 MG CAP PO SCH ×2 (07:44→21:15)
[2021-12-09] MEDS: FUROSEMIDE 10 MG/ML 4 ML VIAL IV SCH (07:45)
[2021-12-09] MEDS: ATORVASTATIN 20 MG TAB PO SCH (07:45)
[2021-12-09] MEDS: APIXABAN 5 MG TAB PO SCH ×2 (07:45→21:15)
[2021-12-09] MEDS: THEOPHYLLINE 24 HOUR 400 MG CAP.ER.24H PO SCH (07:45)
[2021-12-09] MEDS: SPIRONOLACTONE 25 MG TAB PO SCH (07:45)
[2021-12-09] MEDS: POTASSIUM CHLORIDE ER 10 MEQ TAB.ER.PRT PO SCH (07:45)
[2021-12-09] MEDS: PANTOPRAZOLE 40 MG TABLET PO SCH (07:45)
[2021-12-09] MEDS: FLUTICASONE 50MCG/SPRAY NASAL 16GM EA NOSTRIL SCH (07:45)
[2021-12-09] MEDS: BUDESONIDE 1 MG/2 ML NEBU INHALATION SCH ×2 (08:04→20:22)
[2021-12-09] MEDS: FORMOTEROL FUMARATE 20 MCG/2 ML NEBU INHALATION SCH ×2 (08:04→20:21)
[2021-12-09] MEDS: IPRATROPIUM-ALBUTEROL 3 ML NEB INHALATION SCH ×4 (08:04→20:22)
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
[2021-12-09 11:14] LABS: Glucose,Whole Blood 276 mg/dL (75-99)
[2021-12-09] MEDS: AZITHROMYCIN 500 MG in SODIUM CHLORIDE 0.9% 250 ML IVPB SCH (15:45)
[2021-12-09 16:36] LABS: Glucose,Whole Blood 138 mg/dL (75-99)
--- NOTE | 2021-12-09 18:09 | P.PN ---
Subjective Progress Note Date: 12/09/21 This is a 71-year-old male who was recently admitted with COPD acute exacerbation and is being closely monitored. Pulmonary following and patient to continue on breathing inhalational treatments, IV steroids, and IV lasix. Patient having some lower extremity swelling and reports to some improvement today. Encouraged the patient to continue elevating extremities while at rest. Patient was evaluated by psychiatry for possible suicidal ideation on admission and sitter has been removed. Patient to follow up outpatient with psychiatric services. Patient continues with shortness of breath and wheezing. Patient denies chest pain or palpitations. Patient is afebrile. Recommend to continue accuchecks achs and sliding scale. Encouraged increased activity. Patient is weak. Will have PT/OT evaluate. Podiatry consulted for poorly kempt toenails. Review of systems: Constitutional: No reports of fatigue, fever, or chills Cardiovascular: No reports of chest pain or palpitations Respiratory: No reports of worsening shortness of breath GI: no reports of nausea, no reports of of vomiting, No reports of diarrhea : No reports of dysuria or retention Neurovascular: reports of generalized weakness Active Medications Hydrocodone Bitart/Acetaminophen (Hydrocodone/Apap 5-325mg 1 Each Tab) 1 each PO Q4H PRN PRN Reason: Moderate Pain Last Admin: 12/09/21 07:44 Dose: 1 each Documented by: Albuterol/Ipratropium (Ipratropium-Albuterol 3 Ml Neb) 3 ml INHALATION RT-Q4H PRN PRN Reason: Shortness Of Breath Or Wheezing Last Admin: 12/09/21 01:24 Dose: 3 ml Documented by: Albuterol/Ipratropium (Ipratropium-Albuterol 3 Ml Neb) 3 ml INHALATION RT-QID [facility] Last Admin: 12/09/21 08:04 Dose: 3 ml Documented by: Amlodipine Besylate (Amlodipine 10 Mg Tab) 10 mg PO DAILY [facility] Last Admin: 12/09/21 07:44 Dose: 10 mg Documented by: Apixaban (Apixaban 5 Mg Tab) 5 mg PO BID [facility]; Protocol Last Admin: 12/09/21 07:45 Dose: 5 mg Documented by: Atorvastatin Calcium (Atorvastatin 20 Mg Tab) 20 mg PO DAILY [facility] Last Admin: 12/09/21 07:45 Dose: 20 mg Documented by: Budesonide (Budesonide 1 Mg/2 Ml Nebu) 1 mg INHALATION RT-BID [facility] Last Admin: 12/09/21 08:04 Dose: 1 mg Documented by: Diazepam (Diazepam 5 Mg Tab) 5 mg PO DAILY PRN PRN Reason: Anxiety Last Admin: 12/09/21 07:44 Dose: 5 mg Documented by: Fluticasone Propionate (Fluticasone 50mcg/[place] Nasal 16gm) 1 spray EA NOSTRIL DAILY [facility] Last Admin: 12/09/21 07:45 Dose: Not Given Documented by: Formoterol Fumarate (Formoterol Fumarate 20 Mcg/2 Ml Nebu) 20 mcg INHALATION RT-BID [facility] Last Admin: 12/09/21 08:04 Dose: 20 mcg Documented by: Furosemide (Furosemide 10 Mg/Ml 4 Ml Vial) 40 mg IV DAILY [facility] Last Admin: 12/09/21 07:45 Dose: 40 mg Documented by: Gabapentin (Gabapentin 100 Mg Cap) 100 mg PO BID [facility] Last Admin: 12/09/21 07:44 Dose: 100 mg Documented by: Azithromycin 500 mg/ Sodium (Chloride) 250 mls @ 250 mls/hr IVPB DAILY@1600 [facility]; Protocol Stop: 12/09/21 16:59 Last Admin: 12/08/21 16:52 Dose: 250 mls/hr Documented by: Insulin Aspart (Insulin Aspart (Novolog) 100 Unit/Ml Vial) 0 unit SQ ACHS [facility]; Protocol Last Admin: 12/09/21 07:42 Dose: 1 unit Documented by: Metformin HCl (Metformin 500 Mg Tab) 500 mg PO AC-BID [facility] Last Admin: 12/09/21 07:44 Dose: 500 mg Documented by: Methylprednisolone Sodium Succinate (Methylprednisolone Sod Succi 125 Mg/2 Ml Vial) 60 mg IV Q6HR [facility] Last Admin: 12/09/21 05:06 Dose: 60 mg Documented by: Metoprolol Tartrate (Metoprolol Tartrate 50 Mg Tab) 50 mg PO BID-W/MEALS [facility] Last Admin: 12/09/21 07:44 Dose: 50 mg Documented by: Naloxone HCl (Naloxone 0.4 Mg/Ml 1 Ml Vial) 0.2 mg IV Q2M PRN PRN Reason: Opioid Reversal Nicotine (Nicotine 21mg/24hr Patch) 1 patch TRANSDERM DAILY [facility] Last Admin: 12/09/21 07:43 Dose: 1 patch Documented by: Pantoprazole Sodium (Pantoprazole 40 Mg Tablet) 40 mg PO AC-BRKFST [facility] Last Admin: 12/09/21 07:45 Dose: 40 mg Documented by: Potassium Chloride (Potassium Chloride Er 10 Meq Tab.Er.Prt) 10 meq PO DAILY [facility] Last Admin: 12/09/21 07:45 Dose: 10 meq Documented by: Spironolactone (Spironolactone 25 Mg Tab) 25 mg PO DAILY [facility] Last Admin: 12/09/21 07:45 Dose: 25 mg Documented by: Tamsulosin HCl (Tamsulosin 0.4 Mg Cap.Er.24h) 0.4 mg PO DAILY [facility] Last Admin: 12/09/21 07:44 Dose: 0.4 mg Documented by: Theophylline (Theophylline 24 Hour 400 Mg Cap.Er.24h) 400 mg PO DAILY [facility] Last Admin: 12/09/21 07:45 Dose: 400 mg Documented by: PHYSICAL EXAMINATION: GENERAL: The patient is alert and oriented x4, Well developed, well nourished. HEENT: Pupils are round and equally reacting to light. EOMI. no scleral icterus. No conjunctival pallor. Normocephalic, atraumatic. No pharyngeal erythema. No thyromegaly. CARDIOVASCULAR: S1 and S2 muffled PULMONARY: diminished breath sounds bilaterally with expiratory wheezing and rhonchi noted. ABDOMEN: soft. Nontender on exam. obese. non-distended, normoactive bowel sounds. No palpable organomegaly. MUSCULOSKELETAL: No joint swelling or deformity. EXTREMITIES: No cyanosis, clubbing, or pedal edema. unkempt toenails NEUROLOGICAL: Gross neurological examination did not reveal any focal deficits. Diffuse weakness SKIN: No rashes. Assessment: Copd acute exacerbation with acute purulent tracheobronchitis Suicidal ideation Atrial fibrillation Diabetes mellitus, type 2 Chronic diastolic congestive heart failure hypertension Hyperlipidemia GI prophylaxis DVT prophylaxis Full code Plan: Recommend to continue with current medications and management. Patient has been seen and evaluated by psychiatry and does not meet inpatient psychiatric unit criteria and suicide sitter discontinued. Patient to follow up outpatient with psychiatric services. Patient with continued wheezing and tightness of the chest on exam and will continue IV steroids and breathing inhalational treatments. Patient also with some lower extremity swelling and improved on IV lasix. Will continue for now and repeat am labs. Encouraged increased activity as tolerated. PT/OT to evaluate the patient as he reports continued weakness. Podiatry consulted for evaluation as patient reports pain with walking due to toenails. Due to multiple complex medical issues, prognosis is guarded. The impression and plan of care has been dictated by Ange Becerra, nurse practitioner as directed. MD Jeremy I have performed a history and examination and MDM of this patient, discussed the same with the dictator, and agree with the dictator's assessment and plan as written ,documented as a scribe. Based on total visit time, I have performed more than 50% of the visit. Any additional findings or plans will be noted. Objective - Vital Signs Vital signs: Vital Signs Temp 98.7 F 12/09/21 07:58 Pulse 91 12/09/21 08:32 Resp 16 12/09/21 07:58 BP 122/73 12/09/21 07:58 Pulse Ox 96 12/09/21 08:09 Intake & Output 12/08/21 12/09/21 12/09/21 18:59 06:59 18:59 Intake Total 360 Output Total 325 Balance 35 Intake: Oral 360 Output: Urine 325 Other: Voiding Method Toilet Toilet # Voids 2 - Labs CBC & Chem 7: 12/08/21 07:21 12/08/21 07:21 Labs: Abnormal Lab Results - Last 24 Hours (Table) 12/08/21 12/08/21 12/08/21 Range/Units 07:21 07:21 11:14 WBC 13.50 H (4.50-10.00) X 10*3/uL MCHC 31.1 L (32.0-37.0) g/dL RDW 15.8 H (11.5-14.5) % Immature Gran # 0.12 H (0.00-0.04) X 10*3/uL Neutrophils # 12.60 H (1.80-7.70) X 10*3/uL Lymphocytes # 0.47 L (0.90-5.00) X 10*3/uL Eosinophils # 0 L (0.04-0.35) X 10*3/uL Sodium 132 L (135-145) mmol/L Chloride 92 L (96-109) mmol/L Carbon Dioxide 28.4 H (20.0-27.5) mmol/L Glucose 269 H (70-110) mg/dL POC Glucose (mg/dL) 152 H (75-99) mg/dL AST 9 L (14-35) U/L Total Protein 5.9 L (6.2-8.2) g/dL 12/08/21 12/08/21 12/09/21 Range/Units 16:32 19:57 06:56 WBC (4.50-10.00) X 10*3/uL MCHC (32.0-37.0) g/dL RDW (11.5-14.5) % Immature Gran # (0.00-0.04) X 10*3/uL Neutrophils # (1.80-7.70) X 10*3/uL Lymphocytes # (0.90-5.00) X 10*3/uL Eosinophils # (0.04-0.35) X 10*3/uL Sodium (135-145) mmol/L Chloride (96-109) mmol/L Carbon Dioxide (20.0-27.5) mmol/L Glucose (70-110) mg/dL POC Glucose (mg/dL) 217 H 156 H 148 H (75-99) mg/dL AST (14-35) U/L Total Protein (6.2-8.2) g/dL Microbiology - Last 24 Hours (Table) 12/07/21 16:00 Blood Culture - Preliminary Blood No Growth after 24 hours 12/07/21 16:15 Blood Culture - Preliminary Blood No Growth after 24 hours
[2021-12-09 20:25] LABS: Glucose,Whole Blood 272 mg/dL (75-99)
[2021-12-10] MEDS: methylPREDNISolone SOD SUCCI 125 MG/2 ML VIAL IV SCH ×4 (02:00→17:51)
[2021-12-10] MEDS: HYDROcodone/APAP 5-325MG 1 EACH TAB PO PRN ×4 (02:01→21:31)
[2021-12-10] MEDS: IPRATROPIUM-ALBUTEROL 3 ML NEB INHALATION PRN (05:32)
[2021-12-10 07:04] LABS: Glucose,Whole Blood 179 mg/dL (75-99)
[2021-12-10] MEDS: FUROSEMIDE 10 MG/ML 4 ML VIAL IV SCH (07:35)
[2021-12-10] MEDS: INSULIN ASPART (NovoLOG) 100 UNIT/ML VIAL SQ SCH ×4 (08:24→21:32)
[2021-12-10] MEDS: NICOTINE 21MG/24HR PATCH TRANSDERM SCH (08:24)
[2021-12-10] MEDS: amLODIPine 10 MG TAB PO SCH (08:25)
[2021-12-10] MEDS: METOPROLOL TARTRATE 50 MG TAB PO SCH ×2 (08:25→16:42)
[2021-12-10] MEDS: TAMSULOSIN 0.4 MG CAP.ER.24H PO SCH (08:25)
[2021-12-10] MEDS: metFORMIN 500 MG TAB PO SCH ×2 (08:25→16:42)
[2021-12-10] MEDS: GABAPENTIN 100 MG CAP PO SCH ×2 (08:25→21:32)
[2021-12-10] MEDS: APIXABAN 5 MG TAB PO SCH ×2 (08:25→21:32)
[2021-12-10] MEDS: ATORVASTATIN 20 MG TAB PO SCH (08:25)
[2021-12-10] MEDS: SPIRONOLACTONE 25 MG TAB PO SCH (08:25)
[2021-12-10] MEDS: POTASSIUM CHLORIDE ER 10 MEQ TAB.ER.PRT PO SCH (08:25)
[2021-12-10] MEDS: PANTOPRAZOLE 40 MG TABLET PO SCH (08:25)
[2021-12-10] MEDS: THEOPHYLLINE 24 HOUR 400 MG CAP.ER.24H PO SCH (08:26)
[2021-12-10] MEDS: FLUTICASONE 50MCG/SPRAY NASAL 16GM EA NOSTRIL SCH (08:27)
[2021-12-10 09:09] LABS: African American GFR (CKD) >90 (>60 ml/min/1.73 sqM); Anion Gap 8 mmol/L; Blood Urea Nitrogen 20 mg/dL (9-20); Calcium 8.7 mg/dL (8.4-10.2); Carbon Dioxide 32 mmol/L (22-30); Chloride 91 mmol/L (98-107); Glucose 161 mg/dL (74-99); Non-African American GFR(CKD) >90 (>60 ml/min/1.73 sqM); Potassium 4.3 mmol/L (3.5-5.1); Sodium 131 mmol/L (137-145)
--- NOTE | 2021-12-10 09:19 | CDI ---
Documentation Clarification Form Date: 12/10/2021 09:12:00 AM From: Snow Singh CCS, CCDS Admit Date: 12/07/2021 02:16:00 PM Patient Name: Olegario Villela Visit Number: [id number] Discharge Date: ATTENTION: The Clinical Documentation Specialists (CDI) and [facility] Coding Staff appreciate your assistance in clarifying documentation. Please respond to the clarification below the line at the bottom and electronically sign. The CDI & [facility] Coding staff will review the response and follow-up if needed. Please note: Queries are made part of the Legal Health Record. If you have any questions, please contact the author of this message via ITS. Dr. Gisela Munoz: Atrial Fibrillation is documented in the 12/07 ED Note, the 12/07 History & Physical, the 12/08 Pulmonary Consult and in subsequent Progress Notes without further specificity. Cardiology has not been consulted. Additional clarification regarding the type of Atrial Fibrillation is requested. History/Risk Factors per the 12/07 H/P: COPD, Bronchitis, Asthma, Diabetes Mellitus, Pneumonia, Smoker, Atrial Fibrillation, Clinical Indicators: Presented to the ED on 12/07 via EMS with SOB with history of Heart Failure, COPD, A Fib, DM & Chronic Hypoxic Respiratory Failure on Home O2 and also with worsening lower extremity edema & worsening dyspnea & productive mucus. Patient admitted to suicidal ideation. Admit with COPD Exacerbation, Acute & Chronic Respiratory Failure with Hypoxia and Suicidal Ideation 12/07 VS: T 98.1, P 97, R 28 (sob, tachypnea), BP 134/88, PO 94 6Lnc, BMI: 33.9 12/07 LAB: BNP 431 12/07 CXR: COPD. Borderline cardiomegaly and some increasing interstitial density. Correlate for possible bronchitis or mild CHF with pulmonary vascular congestion. There is no norma airspace disease or pleural effusion. Echocardiogram Results (Most Recent: 06/05/2020): Mild LVH, Left systolic function is low normal w/EF 50-55%, right ventricle is mildly enlarged, Tract- mild MR, Mild TR, Mild-moderate pulmonary hypertension. Treatment: INH Duoneb 3 ml x1, INH Duoneb 3mL q4H/prn, INH Duoneb 3mL q4H, IV Azithromycin 250 mls @ 250 mls/hr Daily, Habitrol patch, IV Solumedrol 60 mg q6H, INH Pulmicort BID, INH symbicort 2 puffs BID, INH Perforomist 20 mcg BID 12/08: po Lasix 40 mg Daily, IV Lasix 40 mg Daily. Home meds: Prednisone, Metformin, Lasix 40 mg daily, INH Symbicort, INH Albuterol, INH Ventolin, Home O2 Please clarify the type of atrial fibrillation, if known: [ ] Chronic [ ] Permanent [ ] Paroxysmal [ ] Persistent [ ] Other, please specify [ ] Unable to determine (Template Last Revised: January 2021) Chronic MTDD
[2021-12-10] MEDS: IPRATROPIUM-ALBUTEROL 3 ML NEB INHALATION SCH ×4 (09:20→20:21)
[2021-12-10] MEDS: BUDESONIDE 1 MG/2 ML NEBU INHALATION SCH ×2 (09:20→20:21)
[2021-12-10] MEDS: FORMOTEROL FUMARATE 20 MCG/2 ML NEBU INHALATION SCH ×2 (09:20→20:21)
[2021-12-10 11:45] LABS: Glucose,Whole Blood 134 mg/dL (75-99)
--- NOTE | 2021-12-10 13:52 | P.PN ---
Subjective Progress Note Date: 12/10/21 This is a 71-year-old male who was recently admitted with COPD acute exacerbation and is being closely monitored. Pulmonary following and patient to continue on breathing inhalational treatments, IV steroids, and IV lasix. Patient having some lower extremity swelling and reports to some improvement today. Encouraged the patient to continue elevating extremities while at rest. Patient was evaluated by psychiatry for possible suicidal ideation on admission and sitter has been removed. Patient to follow up outpatient with psychiatric services. Patient continues with shortness of breath and wheezing. Patient denies chest pain or palpitations. Patient is afebrile. Recommend to continue accuchecks achs and sliding scale. Encouraged increased activity. Patient is weak. Will have PT/OT evaluate. Podiatry consulted for poorly kempt toenails. 12/10/2021 Patient is seen in follow up today for COPD acute exacerbation and continues on his 4 L via NC and continues on IV steroids and bronchodilators with pulmonary following. Patient continues with wheezing and shortness of breath. Awaiting sputum culture. Patient is afebrile. Encouraged increased activity. Will continue IV lasix for 24 hours. Review of systems: Constitutional: No reports of fatigue, fever, or chills Cardiovascular: No reports of chest pain or palpitations Respiratory: No reports of worsening shortness of breath GI: no reports of nausea, no reports of of vomiting, No reports of diarrhea : No reports of dysuria or retention Neurovascular: reports of generalized weakness Active Medications Hydrocodone Bitart/Acetaminophen (Hydrocodone/Apap 5-325mg 1 Each Tab) 1 each PO Q4H PRN PRN Reason: Moderate Pain Last Admin: 12/10/21 06:00 Dose: 1 each Documented by: Albuterol/Ipratropium (Ipratropium-Albuterol 3 Ml Neb) 3 ml INHALATION RT-Q4H PRN PRN Reason: Shortness Of Breath Or Wheezing Last Admin: 12/10/21 05:32 Dose: 3 ml Documented by: Albuterol/Ipratropium (Ipratropium-Albuterol 3 Ml Neb) 3 ml INHALATION RT-QID [facility] Last Admin: 12/10/21 12:37 Dose: 3 ml Documented by: Amlodipine Besylate (Amlodipine 10 Mg Tab) 10 mg PO DAILY [facility] Last Admin: 12/10/21 08:25 Dose: 10 mg Documented by: Apixaban (Apixaban 5 Mg Tab) 5 mg PO BID [facility]; Protocol Last Admin: 12/10/21 08:25 Dose: 5 mg Documented by: Atorvastatin Calcium (Atorvastatin 20 Mg Tab) 20 mg PO DAILY [facility] Last Admin: 12/10/21 08:25 Dose: 20 mg Documented by: Budesonide (Budesonide 1 Mg/2 Ml Nebu) 1 mg INHALATION RT-BID [facility] Last Admin: 12/10/21 09:20 Dose: 1 mg Documented by: Diazepam (Diazepam 5 Mg Tab) 5 mg PO DAILY PRN PRN Reason: Anxiety Last Admin: 12/09/21 07:44 Dose: 5 mg Documented by: Fluticasone Propionate (Fluticasone 50mcg/[place] Nasal 16gm) 1 spray EA NOSTRIL DAILY [facility] Last Admin: 12/10/21 08:27 Dose: Not Given Documented by: Formoterol Fumarate (Formoterol Fumarate 20 Mcg/2 Ml Nebu) 20 mcg INHALATION RT-BID [facility] Last Admin: 12/10/21 09:20 Dose: 20 mcg Documented by: Furosemide (Furosemide 10 Mg/Ml 4 Ml Vial) 40 mg IV DAILY [facility] Last Admin: 12/10/21 07:35 Dose: 40 mg Documented by: Gabapentin (Gabapentin 100 Mg Cap) 100 mg PO BID [facility] Last Admin: 12/10/21 08:25 Dose: 100 mg Documented by: Insulin Aspart (Insulin Aspart (Novolog) 100 Unit/Ml Vial) 0 unit SQ ACHS [facility]; Protocol Last Admin: 12/10/21 12:04 Dose: Not Given Documented by: Metformin HCl (Metformin 500 Mg Tab) 500 mg PO AC-BID [facility] Last Admin: 12/10/21 08:25 Dose: 500 mg Documented by: Methylprednisolone Sodium Succinate (Methylprednisolone Sod Succi 125 Mg/2 Ml Vial) 60 mg IV Q6HR [facility] Last Admin: 12/10/21 12:04 Dose: 60 mg Documented by: Metoprolol Tartrate (Metoprolol Tartrate 50 Mg Tab) 50 mg PO BID-W/MEALS [facility] Last Admin: 12/10/21 08:25 Dose: 50 mg Documented by: Naloxone HCl (Naloxone 0.4 Mg/Ml 1 Ml Vial) 0.2 mg IV Q2M PRN PRN Reason: Opioid Reversal Nicotine (Nicotine 21mg/24hr Patch) 1 patch TRANSDERM DAILY [facility] Last Admin: 12/10/21 08:24 Dose: 1 patch Documented by: Pantoprazole Sodium (Pantoprazole 40 Mg Tablet) 40 mg PO AC-BRKFST [facility] Last Admin: 12/10/21 08:25 Dose: 40 mg Documented by: Potassium Chloride (Potassium Chloride Er 10 Meq Tab.Er.Prt) 10 meq PO DAILY [facility] Last Admin: 12/10/21 08:25 Dose: 10 meq Documented by: Spironolactone (Spironolactone 25 Mg Tab) 25 mg PO DAILY [facility] Last Admin: 12/10/21 08:25 Dose: 25 mg Documented by: Tamsulosin HCl (Tamsulosin 0.4 Mg Cap.Er.24h) 0.4 mg PO DAILY [facility] Last Admin: 12/10/21 08:25 Dose: 0.4 mg Documented by: Theophylline (Theophylline 24 Hour 400 Mg Cap.Er.24h) 400 mg PO DAILY [facility] Last Admin: 12/10/21 08:26 Dose: 400 mg Documented by: PHYSICAL EXAMINATION: GENERAL: The patient is alert and oriented x4, Well developed, well nourished. HEENT: Pupils are round and equally reacting to light. EOMI. no scleral icterus. No conjunctival pallor. Normocephalic, atraumatic. No pharyngeal erythema. No thyromegaly. CARDIOVASCULAR: S1 and S2 muffled PULMONARY: diminished breath sounds bilaterally with expiratory wheezing and rhonchi noted. ABDOMEN: soft. Nontender on exam. obese. non-distended, normoactive bowel sounds. No palpable organomegaly. MUSCULOSKELETAL: No joint swelling or deformity. EXTREMITIES: No cyanosis, clubbing, or pedal edema. unkempt toenails NEUROLOGICAL: Gross neurological examination did not reveal any focal deficits. SKIN: No rashes. Assessment: Copd acute exacerbation with acute purulent tracheobronchitis Suicidal ideation Atrial fibrillation Diabetes mellitus, type 2 Chronic diastolic congestive heart failure hypertension Hyperlipidemia GI prophylaxis DVT prophylaxis Full code Plan: Recommend to continue with current medications and management. Patient has been seen and evaluated by psychiatry and does not meet inpatient psychiatric unit criteria and suicide sitter discontinued. Patient to follow up outpatient with psychiatric services. Patient with continued wheezing on exam and will continue IV steroids and breathing inhalational treatments. Patient also with some lower extremity swelling and improved on IV lasix. Will continue for now and transition to oral on discharge. Encouraged increased activity as tolerated. PT/OT to evaluate the patient as he reports continued weakness. Podiatry consu lted for evaluation as patient reports pain with walking due to toenails. May need outpatient follow up. Patient to follow up with opthalmology outpatient as well. Due to multiple complex medical issues, prognosis is guarded. Possible discharge in 24-48 hours. The impression and plan of care has been dictated as a scribe by Ange Becerra, nurse practitioner as directed. MD Jeremy I have performed a history and examination and MDM of this patient, discussed the same with the dictator, documented as a scribe. Based on total visit time, I have performed more than 50% of the visit. Objective - Vital Signs Vital signs: Vital Signs Temp 97.8 F 12/10/21 08:00 Pulse 103 H 12/10/21 09:48 Resp 18 12/10/21 08:00 BP 145/77 12/10/21 08:00 Pulse Ox 98 12/10/21 09:22 Intake & Output 12/09/21 12/10/21 12/10/21 18:59 06:59 18:59 Intake Total 1020 Balance 1020 Intake: Oral 1020 Other: Voiding Method Toilet Toilet # Voids 4 - Labs CBC & Chem 7: 12/08/21 07:21 12/10/21 07:52 Labs: Abnormal Lab Results - Last 24 Hours (Table) 12/09/21 12/09/21 12/09/21 Range/Units 11:13 16:34 20:24 Sodium (137-145) mmol/L Chloride (98-107) mmol/L Carbon Dioxide (22-30) mmol/L Glucose (74-99) mg/dL POC Glucose (mg/dL) 276 H 138 H 272 H (75-99) mg/dL 12/10/21 12/10/21 Range/Units 07:02 07:52 Sodium 131 L (137-145) mmol/L Chloride 91 L (98-107) mmol/L Carbon Dioxide 32 H (22-30) mmol/L Glucose 161 H (74-99) mg/dL POC Glucose (mg/dL) 179 H (75-99) mg/dL Microbiology - Last 24 Hours (Table) 12/07/21 16:00 Blood Culture - Preliminary Blood No Growth after 48 hours 12/07/21 16:15 Blood Culture - Preliminary Blood No Growth after 48 hours
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
[2021-12-10] MEDS ORDERED: ALBUTEROL HFA INHALER INHALATION SCH (16:00)
[2021-12-10 16:28] LABS: Glucose,Whole Blood 220 mg/dL (75-99)
[2021-12-10 20:30] LABS: Glucose,Whole Blood 167 mg/dL (75-99)
[2021-12-11] MEDS: methylPREDNISolone SOD SUCCI 125 MG/2 ML VIAL IV SCH ×3 (01:16→11:42)
[2021-12-11] MEDS: HYDROcodone/APAP 5-325MG 1 EACH TAB PO PRN ×2 (01:16→06:16)
[2021-12-11] MEDS: IPRATROPIUM-ALBUTEROL 3 ML NEB INHALATION PRN (01:26)
[2021-12-11 07:01] LABS: Glucose,Whole Blood 189 mg/dL (75-99)
[2021-12-11] MEDS: METOPROLOL TARTRATE 50 MG TAB PO SCH (08:05)
[2021-12-11] MEDS: PANTOPRAZOLE 40 MG TABLET PO SCH (08:05)
[2021-12-11] MEDS: amLODIPine 10 MG TAB PO SCH (08:05)
[2021-12-11] MEDS: FUROSEMIDE 10 MG/ML 4 ML VIAL IV SCH (08:05)
[2021-12-11] MEDS: APIXABAN 5 MG TAB PO SCH (08:05)
[2021-12-11] MEDS: metFORMIN 500 MG TAB PO SCH (08:05)
[2021-12-11] MEDS: POTASSIUM CHLORIDE ER 10 MEQ TAB.ER.PRT PO SCH (08:05)
[2021-12-11] MEDS: ATORVASTATIN 20 MG TAB PO SCH (08:05)
[2021-12-11] MEDS: SPIRONOLACTONE 25 MG TAB PO SCH (08:05)
[2021-12-11] MEDS: GABAPENTIN 100 MG CAP PO SCH (08:05)
[2021-12-11] MEDS: TAMSULOSIN 0.4 MG CAP.ER.24H PO SCH (08:05)
[2021-12-11] MEDS: INSULIN ASPART (NovoLOG) 100 UNIT/ML VIAL SQ SCH ×2 (08:05→11:34)
[2021-12-11] MEDS: NICOTINE 21MG/24HR PATCH TRANSDERM SCH (08:06)
[2021-12-11] MEDS: FLUTICASONE 50MCG/SPRAY NASAL 16GM EA NOSTRIL SCH (08:06)
[2021-12-11] MEDS: THEOPHYLLINE 24 HOUR 400 MG CAP.ER.24H PO SCH (08:06)
[2021-12-11] MEDS: FORMOTEROL FUMARATE 20 MCG/2 ML NEBU INHALATION SCH (08:26)
[2021-12-11] MEDS: BUDESONIDE 1 MG/2 ML NEBU INHALATION SCH (08:26)
[2021-12-11] MEDS: IPRATROPIUM-ALBUTEROL 3 ML NEB INHALATION SCH ×3 (08:26→15:24)
[2021-12-11 11:08] LABS: Glucose,Whole Blood 134 mg/dL (75-99)
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
[2021-12-11 12:46] VITALS: BP 155/80; PULSE 102; RESP 18; TEMP 97.6
[2021-12-11 13:10] LABS: Basophils # (A) 0.1 k/uL (0-0.2); Basophils % (A) 1 %; Eosinophils % (A) 0 %; HCT 49.2 % (39.0-53.0); HGB 15.5 gm/dL (13.0-17.5); Lymphocytes # (A) 0.3 k/uL (1.0-4.8); Lymphocytes % (A) 3 %; MCHC 31.4 g/dL (31.0-37.0); MCV 95.6 fL (80.0-100.0); Mean Platelet Volume 7.2; Monocytes # (A) 0.6 k/uL (0-1.0); Monocytes % (A) 5 %; Neutrophils # (A) 9.4 k/uL (1.3-7.7); Neutrophils % (A) 90 %; Platelet Count 258 k/uL (150-450); RBC 5.15 m/uL (4.30-5.90); RDW 15.7 % (11.5-15.5); WBC 10.4 k/uL (3.8-10.6)
[2021-12-11 13:29] LABS: African American GFR (CKD) >90 (>60 ml/min/1.73 sqM); Anion Gap 5 mmol/L; Blood Urea Nitrogen 26 mg/dL (9-20); Calcium 8.9 mg/dL (8.4-10.2); Carbon Dioxide 37 mmol/L (22-30); Chloride 87 mmol/L (98-107); Glucose 111 mg/dL (74-99); Non-African American GFR(CKD) >90 (>60 ml/min/1.73 sqM); Sodium 129 mmol/L (137-145)
[2021-12-11 13:34] LABS: Potassium 4.4 mmol/L (3.5-5.1)
--- NOTE | 2021-12-13 14:30 | P.DS ---
Providers Date of admission: 12/07/21 14:16 Attending physician: Tigre Geiger MD Consults: 12/07/21 14:17 Consult Physician Routine Consulting Provider: Calvin Martin Consult Reason/Comments: COPD exacerbation, acute on chronic hypoxic respiratory failure Do you want consulting provider notified?: Yes 12/07/21 14:18 Consult Physician Routine Consulting Provider: Leonard Haas Consult Reason/Comments: Suicidal ideations/attempt Do you want consulting provider notified?: Already Contacted 12/09/21 11:26 Consult Physician Routine Consulting Provider: Sajan Haile Consult Reason/Comments: Toenail problems Do you want consulting provider notified?: Yes [facility] Course: Final Diagnosis Copd acute exacerbation with acute purulent tracheobronchitis Suicidal ideation, cleared by psychiatry will follow outpatient with services Atrial fibrillation Diabetes mellitus, type 2 Chronic diastolic congestive heart failure hypertension Hyperlipidemia Discharge Disposition Patient discharged in fair condition, at baseline as far as home oxygen needs. High risk for readmission, verbalizes understanding for need of total smoking cessation. Hospital Course This is a pleasant 71 year old male who presents with increased shortness of breath over the last 4 days with exertional dyspnea as well as worsening lower extremity edema. There have been no fevers patient does have a cough that is productive. Patient was brought to the hospital by EMS received IV steroids and DuoNeb, needing 6 L of nasal cannula on admission. Patient also states he had attempted to shoot himself last week has an unloaded gun at home has been having thoughts of suicide due to his chronic respiratory disease however currently states that he is not having those thoughts. States he had someone remove the bullets from his gun. Currently no homicidal ideations. There have been no hallucinations. Patient was evaluated by psychiatry was not recommending inpatient treatment this admission will follow-up outpatient with psychiatric services. Patient with past medical history significant for heart failure, COPD, atrial fibrillation, diabetes, chronic hypoxic respiratory failure on home oxygen. Patient does state that he feels helpless as he has no hobbies and nothing to keep his mind busy. Continues to smoke as this is more of a habit and gives him something to do with his hands when he is sitting. He was evaluated by pulmonary services this admission and treated with IV steroids, breathing treatments, as well as IV lasix. Patient did have some improvement in his lower extremity edema. Sodium on the lower side and patient will hold his aldactone on discharge and continue on lasix. Recheck labs in 2-3 days and follow up with primary care. Chest xray on admission shows COPD with possible bronchitis or mild CHF with pulmonary vascular congestion. Labs on admission show WBC 12.3, sodium 133, Troponin negative, BNP 431. COVID negative, Influenza A/B negative. 12/11/2021 Patient evaluated with family at the bedside. On home oxygen dosing. Patient does have some faint wheezing today, however states his breathing is much improved. Lower extremity edema is also improving however still with 2+ pitting. Continue on oral lasix on discharge. Aldactone stopped and recheck sodium tuesday and follow up closely with primary provider. Patient will also be discharged on oral prednisone taper and than can continue back on home dose of prednisone 10 mg po daily. Patients family is at the bedside and will be taking home. Patient counseled extensively on smoking cessation and the importance of not smoking. Discussed danger of smoking with oxygen in the house as well. Patient verbalizes understanding. Labs today show sodium 129. Blood sugar in the 130s. Afebrile, blood pressure 155/80. S1 S2 auscultated, abdomen is soft and nontender, focal neurological exam is negative. Please see medication reconciliation for a list of current medications. Thank you for allowing us to participate in the care of this patient. The impression and plan of care has been dictated by Geetha Domingo, Nurse Practitioner as directed. Dr. Jean Carlos MD I have performed a history and physical examination and medical decision making of this patient, discussed the same with the dictator, and agree with the dictators assessment and plan as written, documented as a scribe. Based on total visit time, I have performed more than 50% of this visit. Patient Condition at Discharge: Fair Plan - Discharge Summary Discharge Rx Participant: No New Discharge Prescriptions: New Nicotine 21Mg/24Hr Patch [Habitrol] 1 patch TRANSDERM DAILY patch predniSONE 0 mg PO DIRECTED 8 Days #26 tab Continue Omeprazole 20 mg PO DAILY metFORMIN HCL 500 mg PO BID Albuterol Sulfate [Albuterol Sulfate Hfa] 2 puff INHALATION RT-Q4H PRN PRN Reason: Shortness Of Breath Or Wheezing Albuterol Nebulized [Ventolin Nebulized] 2.5 mg INHALATION RT-QID PRN PRN Reason: Shortness Of Breath Metoprolol Tartrate [Lopressor] 50 mg PO BID-W/MEALS Apixaban [Eliquis] 5 mg PO BID #60 tab HYDROcodone/APAP 5-325MG [[place] 5-325] 1 tab PO Q4-6H PRN PRN Reason: Pain Budesonide/Formoterol Fumarate [Symbicort 160-4.5 Mcg Inhaler] 2 puff INHALATION RT-BID Fluticasone Nasal [place] [Flonase Nasal [place]] 1 spr EA NOSTRIL DAILY diazePAM [Valium] 5 mg PO DAILY PRN PRN Reason: Anxiety Atorvastatin [Lipitor] 20 mg PO DAILY amLODIPine [Norvasc] 10 mg PO DAILY Furosemide [Lasix] 40 mg PO DAILY Ipratropium-Albuterol Nebulize [Duoneb 0.5 mg-3 mg/3 ml Soln] 3 ml INHALATION RT-Q4H PRN PRN Reason: Shortness Of Breath Or Wheezing Tamsulosin [Flomax] 0.4 mg PO DAILY Moxifloxacin HCl [Moxifloxacin 0.5%] 1 drop RIGHT EYE Q6H Gabapentin [Neurontin] 100 mg PO BID Theophylline Er 400mg Tablet 400 mg PO DAILY Changed predniSONE 10 mg PO DAILY #0 Discontinued Spironolactone [Aldactone] 25 mg PO DAILY Potassium Chloride ER [K-Dur 10] 10 meq PO DAILY Discharge Medication List Albuterol Nebulized [Ventolin Nebulized] 2.5 mg INHALATION RT-QID PRN 05/08/20 [History] Albuterol Sulfate [Albuterol Sulfate Hfa] 2 puff INHALATION RT-Q4H PRN 05/08/20 [History] Omeprazole 20 mg PO DAILY 05/08/20 [History] metFORMIN HCL 500 mg PO BID 05/08/20 [History] Metoprolol Tartrate [Lopressor] 50 mg PO BID-W/MEALS 07/07/20 [History] Apixaban [Eliquis] 5 mg PO BID #60 tab 07/08/20 [Rx] Atorvastatin [Lipitor] 20 mg PO DAILY 01/12/21 [History] amLODIPine [Norvasc] 10 mg PO DAILY 01/12/21 [History] HYDROcodone/APAP 5-325MG [[place] 5-325] 1 tab PO Q4-6H PRN 02/05/21 [History] Budesonide/Formoterol Fumarate [Symbicort 160-4.5 Mcg Inhaler] 2 puff INHALATION RT-BID 05/02/21 [History] Furosemide [Lasix] 40 mg PO DAILY 05/02/21 [History] Ipratropium-Albuterol Nebulize [Duoneb 0.5 mg-3 mg/3 ml Soln] 3 ml INHALATION RT-Q4H PRN 05/02/21 [History] Fluticasone Nasal [place] [Flonase Nasal [place]] 1 spr EA NOSTRIL DAILY 06/06/21 [History] Gabapentin [Neurontin] 100 mg PO BID 12/07/21 [History] Moxifloxacin HCl [Moxifloxacin 0.5%] 1 drop RIGHT EYE Q6H 12/07/21 [History] Tamsulosin [Flomax] 0.4 mg PO DAILY 12/07/21 [History] Theophylline Er 400mg Tablet 400 mg PO DAILY 12/07/21 [History] diazePAM [Valium] 5 mg PO DAILY PRN 12/07/21 [History] Nicotine 21Mg/24Hr Patch [Habitrol] 1 patch TRANSDERM DAILY patch 12/11/21 [Rx] predniSONE 0 mg PO DIRECTED 8 Days #26 tab 12/11/21 [Rx] predniSONE 10 mg PO DAILY #0 12/11/21 [Rx] Follow up Appointment(s)/Referral(s): Calvin Martin DO [Doctor of Osteopathic Medicine] - 12/25/21 10:00 am [facility], [NON-STAFF] - As Needed Care,[facility] [NON-STAFF] - As Needed Elver Jackson MD [Primary Care Provider] - 1-2 days (Please call office Tuesday for appointment) Ambulatory/Diagnostic Orders: Basic Metabolic Panel [LAB.AMB] Time Frame: 2 Days, Location: None Selected Patient Instructions/Handouts: How to Stop Smoking (DC), COPD (Chronic Obstructive Pulmonary Disease) (DC) Activity/Diet/Wound Care/Special Instructions: Patient to take predisone taper, once completed resume prednisone 10 mg po daily home maintenance medication Advised on total smoking cessation Follow up with Dr Martin with pulmonary services in the office in 1-2 weeks Repeat sodium in 2 days Hold aldactone until follow up with primary care and sodium level is rechecked and within normal range Elevate lower extremities while sitting Discharge Disposition: HOME SELF-CARE
== END 2021-12-11 16:13 | disposition home or self-care (01) | DRG 190 ==
LOC: EC 11:23 → 4SSUR 14:16
PROVIDERS: ADMIT Internal Medicine; ATTEND Internal Medicine
DX: J44.1 Chronic obstructive pulmonary disease with (acute) exacerbation (principal); J96.21 Acute and chronic respiratory failure with hypoxia; I50.32 Chronic diastolic (congestive) heart failure; I48.20 Chronic atrial fibrillation, unspecified; R45.851 Suicidal ideations; J44.0 Chronic obstructive pulmonary disease with (acute) lower respiratory infection; J20.9 Acute bronchitis, unspecified; E11.40 Type 2 diabetes mellitus with diabetic neuropathy, unspecified; E78.5 Hyperlipidemia, unspecified; Z71.6 Tobacco abuse counseling; F17.210 Nicotine dependence, cigarettes, uncomplicated; F32.A Depression, unspecified; E11.36 Type 2 diabetes mellitus with diabetic cataract; F41.9 Anxiety disorder, unspecified; G89.4 Chronic pain syndrome; I11.0 Hypertensive heart disease with heart failure; H26.9 Unspecified cataract; Z79.01 Long term (current) use of anticoagulants; K21.9 Gastro-esophageal reflux disease without esophagitis; Z68.33 Body mass index [BMI] 33.0-33.9, adult; Z99.81 Dependence on supplemental oxygen; M19.90 Unspecified osteoarthritis, unspecified site; Z51.5 Encounter for palliative care; Z91.51 Personal history of suicidal behavior; Z20.822 Contact with and (suspected) exposure to COVID-19; Z79.51 Long term (current) use of inhaled steroids; Z79.84 Long term (current) use of oral hypoglycemic drugs; Z79.899 Other long term (current) drug therapy; Z80.0 Family history of malignant neoplasm of digestive organs; Z81.1 Family history of alcohol abuse and dependence; Z82.49 Family history of ischemic heart disease and other diseases of the circulatory system; Z82.5 Family history of asthma and other chronic lower respiratory diseases; Z87.01 Personal history of pneumonia (recurrent); Z91.81 History of falling; Z90.49 Acquired absence of other specified parts of digestive tract; Z81.8 Family history of other mental and behavioral disorders; Z88.0 Allergy status to penicillin; Z88.1 Allergy status to other antibiotic agents
CPT/HCPCS: 36415; 71046; 80048; 80053; 82075; 83880; 84484; 85025; 85610; 85730; 87040; 87502; 87635; 93005; 94640; 94760; 96365; 96366; 96375; 99285

== ENCOUNTER 2022-01-27 16:06 | Emergency (ER) | payer MEDICARE ==
[2022-01-27 16:26] VITALS: TEMP 98.3
[2022-01-27] MEDS ORDERED: IPRATROPIUM-ALBUTEROL 3 ML NEB INHALATION STA (16:28)
[2022-01-27] MEDS ORDERED: methylPREDNISolone SOD SUCCI 125 MG/2 ML VIAL IV STA (16:28)
[2022-01-27] MEDS ORDERED: MORPHINE SULFATE 4 MG/ML SYRINGE IVP STA (16:30)
--- NOTE | 2022-01-27 17:05 | ED ---
General Adult HPI - General Chief complaint: Chest Pain Stated complaint: SOB Time Seen by Provider: 01/27/22 16:15 Source: patient, EMS, RN notes reviewed, old records reviewed Mode of arrival: EMS Limitations: no limitations - History of Present Illness Initial comments: Patient is a 71-year-old male on hospice with a history of COPD on 2 L nasal cannula presents emergency department for evaluation. Patient also has a history of atrial fibrillation on Eliquis. He states he smoked more tobacco yesterday than he normally does. Specific read's. States this triggers his COPD acting up. States he was having a long coughing exacerbation while walking when he felt weak and fell to the ground. Patient states that while he was coughing he was having scattered chest discomfort. States it was in a localized chest pain. States he wasn't feeling lightheaded or that he was going to pass out. Patient did not pass out. He felt weak after coughing. Patient fell onto bilateral knees. EMS was called and he was brought to the emergency department further evaluation. EMS did provide him with a aspirin. He states he was using breathing treatments at home with some improvement. He received some breathing treatments in route to the hospital. States he normally coughs up mucus and states this is continuing at this time. Endorses some mild shortness of breath. He endorses coughing. Believes his COPD is acting up. Currently denies any chest pain. Denies any nausea, vomiting. Was vaccinated for COVID-19 flu. Denies any lower extremity swelling beyond baseline. Does have chronic lower extremity swelling with wraps in place which is being seen by nursing. Patient would like to remain on hospice at this time. Is seeking evaluation. Is complaining of left knee pain. - Related Data Home Medications Medication Instructions Recorded Confirmed Albuterol Nebulized [Ventolin 2.5 mg INHALATION RT-QID PRN 05/08/20 12/07/21 Nebulized] Albuterol Sulfate [Albuterol 2 puff INHALATION RT-Q4H PRN 05/08/20 12/07/21 Sulfate Hfa] Omeprazole 20 mg PO DAILY 05/08/20 12/07/21 metFORMIN HCL 500 mg PO BID 05/08/20 12/07/21 Metoprolol Tartrate [Lopressor] 50 mg PO BID-W/MEALS 07/07/20 12/07/21 Atorvastatin [Lipitor] 20 mg PO DAILY 01/12/21 12/07/21 amLODIPine [Norvasc] 10 mg PO DAILY 01/12/21 12/07/21 HYDROcodone/APAP 5-325MG [[place] 1 tab PO Q4-6H PRN 02/05/21 12/07/21 5-325] Budesonide/Formoterol Fumarate 2 puff INHALATION RT-BID 05/02/21 12/07/21 [Symbicort 160-4.5 Mcg Inhaler] Furosemide [Lasix] 40 mg PO DAILY 05/02/21 12/07/21 Ipratropium-Albuterol Nebulize 3 ml INHALATION RT-Q4H PRN 05/02/21 12/07/21 [Duoneb 0.5 mg-3 mg/3 ml Soln] Fluticasone Nasal [place] [Flonase 1 spr EA NOSTRIL DAILY 06/06/21 12/07/21 Nasal [place]] Gabapentin [Neurontin] 100 mg PO BID 12/07/21 12/07/21 Moxifloxacin HCl [Moxifloxacin 1 drop RIGHT EYE Q6H 12/07/21 12/07/21 0.5%] Tamsulosin [Flomax] 0.4 mg PO DAILY 12/07/21 12/07/21 Theophylline Er 400mg Tablet 400 mg PO DAILY 12/07/21 12/07/21 diazePAM [Valium] 5 mg PO DAILY PRN 12/07/21 12/07/21 Previous Rx's Medication Instructions Recorded Apixaban [Eliquis] 5 mg PO BID #60 tab 07/08/20 Nicotine 21Mg/24Hr Patch [Habitrol] 1 patch TRANSDERM DAILY patch 12/11/21 predniSONE 0 mg PO DIRECTED 8 Days #26 tab 12/11/21 predniSONE 10 mg PO DAILY #0 12/11/21 Albuterol Inhaler [Ventolin Hfa 1 puff INHALATION RT-TID #8 gm 01/27/22 Inhaler] Azithromycin 250 mg PO DAILY 4 Days #4 tab 01/27/22 predniSONE [Deltasone] 40 mg PO DAILY 5 Days #10 tab 01/27/22 Allergies Allergy/AdvReac Type Severity Reaction Status Date / Time doxycycline Allergy Anaphylaxis Verified 01/27/22 16:29 Penicillins Allergy Anaphylaxis Verified 01/27/22 16:29 Review of Systems ROS Statement: Those systems with pertinent positive or pertinent negative responses have been documented in the HPI. Review of Systems: CONST: Denies fever EYES: Denies blurry vision ENT: Denies nasal congestion C/V: Denies Chest pain RESP: Endorses wheezing GI: Denies abdominal pain : Denies dysuria SKIN: Denies rash. MSK: Endorses left knee pain NEURO: Denies headache ROS Other: All systems not noted in ROS Statement are negative. Past Medical History Past Medical History: Atrial Fibrillation, Asthma, COPD, Diabetes Mellitus, GERD/Reflux, Hyperlipidemia, Hypertension, Osteoarthritis (OA), Pneumonia Additional Past Medical History / Comment(s): Afib RVR, home oxygen prn, bronchitis, pt states he is on metformin to prevent becoming diabetic, neuropathy bilateral feet/L hand, chronic pain back,/bilateral hips/knees/elbows and shoulders, L heel pain, FALLS, cataracts. History of Any Multi-Drug Resistant Organisms: None Reported Past Surgical History: Appendectomy Additional Past Surgical History / Comment(s): Colonoscopy Past Anesthesia/Blood Transfusion Reactions: No Reported Reaction Past Psychological History: Anxiety, Depression Smoking Status: Current every day smoker Past Alcohol Use History: Occasional Past Drug Use History: None Reported - Past Family History Father Family Medical History: Congestive Heart Failure (CHF), COPD Additional Family Medical History / Comment(s): Father was an alcoholic but was able to quit drinking Mother Family Medical History: Congestive Heart Failure (CHF), COPD Additional Family Medical History / Comment(s): Mother was an alcoholic. Daughter(s) Additional Family Medical History / Comment(s): Liver cancer General Exam - General Exam Comments Initial Comments: General: Appears in no acute distress. HEAD: Normal with no signs of head trauma. EYES: PERRLA, EOMI, conjunctiva normal, no discharge. ENT: Hearing grossly intact, normal oropharynx. RESPIRATORY: Bilateral end expiratory wheezing. No increased work of breathing. Mild hypoxia, with baseline on 3 L nasal cannula C/V: Regular rate and rhythm. S1 and S2 auscultated, no edema, peripheral pulses 2+ and intact throughout ABD: Abd is soft, nontender, nondistended EXT: Normal range of motion. No obvious deformity. Tenderness palpation over the left patella. Able to extend knee in full extension. Pain with flexion of the left knee. SKIN: No rashes or lesions observed on exposed skin. NEURO: Alert and oriented 4. Limitations: no limitations Course Vital Signs 01/27/22 01/27/22 01/27/22 16:13 17:31 17:41 Temperature 98.3 F Pulse Rate 109 H 100 101 H Respiratory 20 18 Rate Blood Pressure 137/86 O2 Sat by Pulse 91 L Oximetry 01/27/22 19:41 Temperature Pulse Rate 91 Respiratory 20 Rate Blood Pressure 129/70 O2 Sat by Pulse 91 L Oximetry Medical Decision Making - Medical Decision Making Based on the patient's presentation and physical exam, we will obtain basic laboratory studies, chest x-ray, EKG. X-ray of the left knee will also be obtained. He has a COPD exacerbation this time and we will treated with steroids as well as breathing treatments. He did reveal that reason he was on hospice at this time for his cardiac disease as well as COPD. We did contact the hospice nurse who presents to the emergency department. We jointly decided not to obtain blood work, as the patient would like to be discharged home on hospice. I believe this is reasonable at this time. We will also obtain screening EKG, x-rays and we'll treat him for COPD. He was in agreement this plan. EKG showed atrial fibrillation which is a history of is rate controlled. Chest x-ray reveals atelectasis. Left knee x-ray reveals a suprapatellar enthensophyte fracture. Following breathing treatments, patient's wheezing is improved. Pulse ox remained stable. He would like to go home. I did update him on the results of his imaging. I spoke with orthopedics on-call, who requested that due to the patient having full extensor function, he follow up outpatient and a knee immobilizer will be placed. Patient was in agreement this plan. He will provided with steroids, inhaler, as well as antibiotics for bronchitis. He was in agreement this plan. He'll be discharged home and remain on hospice. I will provide the patient with a prescription for azithromycin, prednisone, albuterol inhaler. I instructed the patient to follow up with their PCP in the next 3 days. I provided contact information for follow up with orthopedic surgery. I explained that the patient should return to the emergency department if they experience any worsening symptoms. Strict return precautions were discussed with the patient. The patient expressed understanding of these instructions. I answered all questions that the patient had. The patient was discharged home in fair condition with their prescriptions and follow up information. - EKG Data -: EKG Interpreted by Me EKG Comments: 12-lead Electrocardiogram Interpretation Note EKG was reviewed and interpreted by myself. 12-lead ECG performed at 1632 is interpreted by me as revealing atrial fibrillation at a rate of 103 beats per minute. Left axis deviation. OR interval is unobtainable, QRS duration is 125 ms, QTc is 344 ms.. There were no ST or T wave abnormalities to suggest myocardial ischemia or injury. R wave progression across the precordium was satisfactory. By my interpretation this EKG is non-diagnostic for acute ischemia. Reveals chronic atrial flutter fibrillation. Disposition Clinical Impression: COPD exacerbation, Fall, Patella fracture, Bronchitis, Hospice care patient Disposition: HOME SELF-CARE Condition: Fair Instructions (If sedation given, give patient instructions): Acute Bronchitis (ED), COPD (Chronic Obstructive Pulmonary Disease) (ED), Patellar Fracture (ED) Prescriptions: Azithromycin 250 mg PO DAILY 4 Days #4 tab predniSONE [Deltasone] 40 mg PO DAILY 5 Days #10 tab Albuterol Inhaler [Ventolin Hfa Inhaler] 1 puff INHALATION RT-TID #8 gm Is patient prescribed a controlled substance at d/c from ED?: No Referrals: Elver Jackson MD [Primary Care Provider] - 1-2 days Benson Purcell MD [STAFF PHYSICIAN] - 1-2 days Time of Disposition: 18:30
[2022-01-27] MEDS ORDERED: IPRATROPIUM-ALBUTEROL 3 ML NEB INHALATION ONE (17:15)
--- NOTE | 2022-01-27 17:18 | XR ---
EXAMINATION TYPE: XR chest 2V DATE OF EXAM: 01/27/2022 COMPARISON: 11/29/2021 HISTORY: Chest pain status post fall TECHNIQUE: Frontal and lateral views of the chest are obtained. FINDINGS: There is mild interstitial edema with superimposed hazy opacity. No pleural effusion, or p neumothorax seen. The cardiac silhouette size is mildly enlarged. The osseous structures are intac t. IMPRESSION: Interstitial edema/atelectasis
--- NOTE | 2022-01-27 17:22 | XR ---
RESULT: HISTORY: pain TECHNIQUE: 3 views of the left knee were obtained. COMPARISON: None. FINDINGS: There is small fracture of the suprapatellar enthesophyte. There is small knee joint effusion and pre patellar soft tissue edema. No evidence of dislocation. There is mild tricompartmental osteoarthritis . Atherosclerotic ossification seen. IMPRESSION: Suprapatellar enthesophyte fracture.
[2022-01-27] MEDS ORDERED: AZITHROMYCIN 500 MG TAB PO STA (18:34)
[2022-01-27 19:42] VITALS: BP 129/70; PULSE 91; RESP 20
== END 2022-01-27 20:02 | disposition home or self-care (01) ==
LOC: EC 16:06
DX: S82.002A Unspecified fracture of left patella, initial encounter for closed fracture (principal); J44.1 Chronic obstructive pulmonary disease with (acute) exacerbation; E11.9 Type 2 diabetes mellitus without complications; E78.5 Hyperlipidemia, unspecified; F17.200 Nicotine dependence, unspecified, uncomplicated; I10 Essential (primary) hypertension; I48.91 Unspecified atrial fibrillation; K21.9 Gastro-esophageal reflux disease without esophagitis; M19.90 Unspecified osteoarthritis, unspecified site; Z51.5 Encounter for palliative care; Z79.51 Long term (current) use of inhaled steroids; Z79.84 Long term (current) use of oral hypoglycemic drugs; Z88.1 Allergy status to other antibiotic agents; Z79.899 Other long term (current) drug therapy; Z88.0 Allergy status to penicillin; W19.XXXA Unspecified fall, initial encounter
CPT/HCPCS: 94640; 93005; 73562; 71046; 99285; 96374; 96375; L1830; J2270; J2930

== ENCOUNTER 2022-02-18 12:46 | Emergency (ER) | payer MEDICARE ==
[2022-02-18] MEDS ORDERED: KETOROLAC 15 MG/ML 1 ML VIAL IVP STA (12:58)
[2022-02-18 13:00] VITALS: TEMP 98.3
--- NOTE | 2022-02-18 13:01 | ED ---
General Adult HPI - General Stated complaint: L wrist Injury Time Seen by Provider: 02/18/22 12:55 Source: patient, RN notes reviewed, old records reviewed - History of Present Illness Initial comments: This is a 71-year-old male who presents emergency Department after he fell. According to the report the patient had an x-ray at the residential and they saw fractures of the symptoms emergency department. Patient states he went to visit and he lost his balance and fell to the ground. Patient states he brushed his head up against the door but did not hit his head hard he has no headache he has no loss of consciousness. Patient denies any neck pain patient denies numbness weakness. Patient denies any chest or upper back pain. Patient states she has some lower back pain and pain in the left wrist. Patient denies any other areas of injury or pain. - Related Data Home Medications Medication Instructions Recorded Confirmed Albuterol Nebulized [Ventolin 2.5 mg INHALATION RT-QID PRN 05/08/20 02/18/22 Nebulized] Omeprazole 20 mg PO DAILY 05/08/20 02/18/22 metFORMIN HCL 500 mg PO BID 05/08/20 02/18/22 Metoprolol Tartrate [Lopressor] 50 mg PO BID 07/07/20 02/18/22 Atorvastatin [Lipitor] 20 mg PO HS 01/12/21 02/18/22 amLODIPine [Norvasc] 10 mg PO DAILY 01/12/21 02/18/22 Furosemide [Lasix] 40 mg PO HS 05/02/21 02/18/22 Ipratropium-Albuterol Nebulize 3 ml INHALATION RT-Q6H PRN 05/02/21 02/18/22 [Duoneb 0.5 mg-3 mg/3 ml Soln] Gabapentin [Neurontin] 100 mg PO TID@0600,1300,2100 12/07/21 02/18/22 Tamsulosin [Flomax] 0.4 mg PO DAILY 12/07/21 02/18/22 Albuterol Sulfate [Proair Hfa] 2 puff INHALATION RT-Q12H PRN 02/18/22 02/18/22 Calcium Carb-Vit D 500Mg-5Mcg 1 tab PO DAILY 02/18/22 02/18/22 [Oscal 500+D 5 Mcg (200 Iu)] Cyanocobalamin [Vitamin B-12] 500 mcg PO DAILY 02/18/22 02/18/22 Fluticasone Nasal [place] [Flonase 1 spray EA NOSTRIL Q12H PRN 02/18/22 02/18/22 Nasal [place]] Guaifenesin/Dextrothorphan 1 tab PO Q8H PRN 02/18/22 02/18/22 HYDROcodone/APAP 7.5-325MG [[place] 1 tab PO Q4H PRN 02/18/22 02/18/22 7.5-325] Ipratropium-Albuterol Nebulize 3 ml INHALATION RT-Q4H PRN 02/18/22 02/18/22 [Duoneb 0.5 mg-3 mg/3 ml Soln] LORazepam [Ativan] 0.5 mg PO Q4H PRN 02/18/22 02/18/22 Loratadine [Claritin] 10 mg PO DAILY 02/18/22 02/18/22 Magnesium 250 mg PO DAILY 02/18/22 02/18/22 Melatonin 3 - 6 mg PO HS PRN 02/18/22 02/18/22 Morphine Sulfate [Morphine Sulfate 5 mg PO Q4H PRN 02/18/22 02/18/22 Oral Soln Concentrate] [place]-3 Fatty Acids/Fish Oil [Fish 1 cap PO DAILY 02/18/22 02/18/22 Oil 1,000 mg Softgel] Phenylephrine HCl/Prometh HCl 10 ml PO Q6H PRN 02/18/22 02/18/22 [Promethazine Vc Syrup] Potassium Chloride [Klor-Con 10 ER] 10 meq PO BID 02/18/22 02/18/22 Sennosides/Docusate Sodium [Senna 1 tab PO BID@0800,1600 02/18/22 02/18/22 Plus 8.6-50 mg Tablet] Sodium Chloride 0.65% Nasal [Deep 1 spray NASAL Q6H PRN 02/18/22 02/18/22 Sea (Saline)] Theophylline Anhydrous 400 mg PO DAILY 02/18/22 02/18/22 [Theophylline] metOLazone [Zaroxolyn] 10 mg PO BID 02/18/22 02/18/22 Previous Rx's Medication Instructions Recorded Apixaban [Eliquis] 5 mg PO BID #60 tab 07/08/20 Nicotine 21Mg/24Hr Patch [Habitrol] 1 patch TRANSDERM DAILY patch 12/11/21 predniSONE 10 mg PO DAILY #0 12/11/21 Allergies Allergy/AdvReac Type Severity Reaction Status Date / Time ANJU Inhibitors Allergy Unknown - Verified 02/18/22 13:26 per [facility] doxycycline Allergy Anaphylaxis Verified 02/18/22 13:26 Penicillins Allergy Anaphylaxis Verified 02/18/22 13:26 Review of Systems ROS Statement: Those systems with pertinent positive or pertinent negative responses have been documented in the HPI. ROS Other: All systems not noted in ROS Statement are negative. Past Medical History Past Medical History: Atrial Fibrillation, Asthma, COPD, Diabetes Mellitus, GERD/Reflux, Hyperlipidemia, Hypertension, Osteoarthritis (OA), Pneumonia Additional Past Medical History / Comment(s): Afib RVR, home oxygen prn, bronchitis, pt states he is on metformin to prevent becoming diabetic, neuropathy bilateral feet/L hand, chronic pain back,/bilateral hips/knees/elbows and shoulders, L heel pain, FALLS, cataracts. History of Any Multi-Drug Resistant Organisms: None Reported Past Surgical History: Appendectomy Additional Past Surgical History / Comment(s): Colonoscopy Past Anesthesia/Blood Transfusion Reactions: No Reported Reaction Past Psychological History: Anxiety, Depression Smoking Status: Current every day smoker Past Alcohol Use History: Occasional Past Drug Use History: None Reported - Past Family History Father Family Medical History: Congestive Heart Failure (CHF), COPD Additional Family Medical History / Comment(s): Father was an alcoholic but was able to quit drinking Mother Family Medical History: Congestive Heart Failure (CHF), COPD Additional Family Medical History / Comment(s): Mother was an alcoholic. Daughter(s) Additional Family Medical History / Comment(s): Liver cancer General Exam - General Exam Comments Initial Comments: GENERAL: Patient is well-developed and well-nourished. Patient is nontoxic and well- hydrated and is in mild distress. ENT: Neck is soft and supple. No significant lymphadenopathy is noted. Oropharynx is clear. Moist mucous membranes. Neck has full range of motion without elicit ing any pain. EYES: The sclera were anicteric and conjunctiva were pink and moist. Extraocular movements were intact and pupils were equal round and reactive to light. Eyelids were unremarkable. PULMONARY: Unlabored respirations. Good breath sounds bilaterally. Slight respiratory wheezing. CARDIOVASCULAR: There is a regular rate and rhythm without any murmurs gallops or rubs. ABDOMEN: Soft and nontender with normal bowel sounds. SKIN: Skin is clear with no lesions or rashes and otherwise unremarkable. NEUROLOGIC: Patient is alert and oriented x3. Cranial nerves II through XII are grossly intact. Motor and sensory are also intact. Normal speech, volume and content. Symmetrical smile. MUSCULOSKELETAL: Patient has gross deformity of the left wrist. Patient has normal sensation to the fingertips patient has good cap refill of the fingertips. Patient has some lumbar tenderness on palpation. No abrasions bruises or swelling in the area. LYMPHATICS: No significant lymphadenopathy is noted PSYCHIATRIC: Normal psychiatric evaluation. Course Vital Signs 02/18/22 02/18/22 12:51 14:27 Temperature 98.3 F Pulse Rate 94 90 Respiratory 17 14 Rate Blood Pressure 126/73 111/67 O2 Sat by Pulse 97 92 L Oximetry Procedures - Orthopedic Joint Reduction Joint #1 Consent Obtained: verbal consent Side: left Joint Reduction Location: wrist Analgesia: procedural sedation Technique Used: traction/counter-traction Post-Reduction Neuro Exam: intact Post-Reduction Vascular Exam: intact Post Reduction X-Ray Obtained: Yes Post Reduction X-Ray Results: other (Improved alignment but not anatomic) Splint Applied: Yes Patient Tolerated Procedure: well - Orthopedic Splinting/Casting Injury #1 Side: left Upper Extremity Injury Location: short arm Upper Extremity Immobilizer: volar splint - Procedural Sedation Procedural Sedation Start Time: 14:32 Procedural Sedation Stop Time: 15:00 ASA Class: II Mallampati Airway Score: 2 Preparation: environmental monitoring technician applied, pulse oximeter, supplemental O2 applied IV Etomidate Dose (mgs): 15 Complications: none Patient Tolerated Procedure: well Medical Decision Making - Medical Decision Making Lumbosacral spine x-ray shows no acute abnormality. X-ray of the wrist shows a displaced distal fracture of the radius Repeat x-ray after the procedure shows good alignment of the wrist. Disposition Clinical Impression: Distal radius fracture, Lumbar strain Disposition: HOME SELF-CARE Instructions (If sedation given, give patient instructions): Wrist Fracture in Adults (ED) Additional Instructions: Patient should follow-up with orthopedics Is patient prescribed a controlled substance at d/c from ED?: No Referrals: Elver Jackson MD [Primary Care Provider] - 1-2 days Mounika Grace DO [Doctor of Osteopathic Medicine] - 1-2 days Time of Disposition: 15:10
[2022-02-18] MEDS ORDERED: ETOMIDATE 2 MG/ML 10 ML VIAL IVP STA (13:52)
[2022-02-18] MEDS ORDERED: HYDROmorphone 0.5 MG/0.5 ML SYRINGE IM STA (13:55)
[2022-02-18] MEDS ORDERED: HYDROmorphone 0.5 MG/0.5 ML SYRINGE IVP STA ×2 (14:00→14:54)
--- NOTE | 2022-02-18 14:12 | XR ---
EXAMINATION TYPE: XR wrist complete LT DATE OF EXAM: 02/18/2022 COMPARISON: None available INDICATION: Trauma TECHNIQUE: 3 views of the left wrist FINDINGS: Comminuted displaced fracture of the distal radial metaphysis with lateral displacement of the distal fracture fragment. The fracture likely extends into the radiocarpal articulation. Complete dislocati on of the distal radioulnar articulation. Severe degenerative changes of the first carpometacarpal ar ticulation. IMPRESSION: Distal radial fracture as described above, for orthopedic consultation.
--- NOTE | 2022-02-18 14:45 | XR ---
EXAMINATION TYPE: XR lumbosacral spine min 4V DATE OF EXAM: 02/18/2022 COMPARISON: None available INDICATION: Trauma TECHNIQUE: 5 views of the lumbar spine. FINDINGS: Osteopenia. Preserved lumbar lordosis. Mild retrolisthesis of L5 over S1. No definite vertebral body collapse or acute displaced fracture however a subtle nondisplaced fracture can't be excluded. Degenerative changes of the lumbar spine with multilevel opposing endplate osteophytosis, degenerated L5-S1 disc and multilevel facet osteoarthropathy. Grossly unremarkable sacroiliac joints. Extensive arterial atherosclerotic calcifications with infrar enal abdominal aortic aneurysm measuring 4.9 cm. Bilateral pelvic phleboliths or other than urinary c alculi. IMPRESSION: No definite acute vertebral body collapse or obvious displaced fracture. Osteopenia. Other findings a s described above.
--- NOTE | 2022-02-18 14:54 | XR ---
EXAMINATION TYPE: XR wrist limited LT DATE OF EXAM: 02/18/2022 COMPARISON: X-ray performed earlier same day INDICATION: Post reduction TECHNIQUE: 2 views of the left wrist FINDINGS: Again noted is the fractured distal radial metaphysis with better alignment appreciated in the postre duction images. The left wrist is seen in a palmar cast. No new fracture line identified. IMPRESSION: As above.
[2022-02-18] MEDS ORDERED: HYDROcodone/APAP 7.5-325MG 1 EACH TAB PO ONE ×2 (15:32→19:02)
[2022-02-18 15:53] VITALS: BP 129/73; PULSE 95; RESP 13
== END 2022-02-18 19:27 | disposition home or self-care (01) ==
LOC: EC 12:46
DX: S52.502A Unspecified fracture of the lower end of left radius, initial encounter for closed fracture (principal); S39.012A Strain of muscle, fascia and tendon of lower back, initial encounter; J44.9 Chronic obstructive pulmonary disease, unspecified; E11.9 Type 2 diabetes mellitus without complications; E07.9 Disorder of thyroid, unspecified; E78.5 Hyperlipidemia, unspecified; I10 Essential (primary) hypertension; K21.9 Gastro-esophageal reflux disease without esophagitis; Z79.83 Long term (current) use of bisphosphonates; Z79.899 Other long term (current) drug therapy; F17.200 Nicotine dependence, unspecified, uncomplicated; Z88.8 Allergy status to other drugs, medicaments and biological substances; Z88.1 Allergy status to other antibiotic agents; Z88.0 Allergy status to penicillin; W01.0XXA Fall on same level from slipping, tripping and stumbling without subsequent striking against object, initial encounter
CPT/HCPCS: 25605; 99284; 96374; 96375; 96372; 72110; 73100; 73110; J1885; J1170

== ENCOUNTER 2022-03-03 05:14 | Inpatient (IN) | payer MEDICARE ==
[2022-03-03 06:51] LABS: Anisocytosis Slight; Basophils # (A) 0.2 k/uL (0-0.2); Basophils % (A) 1 %; Eosinophils # (A) 0.3 k/uL (0-0.7); Eosinophils % (A) 2 %; HCT 35.6 % (39.0-53.0); HGB 12.4 gm/dL (13.0-17.5); Lymphocytes # (A) 1.9 k/uL (1.0-4.8); Lymphocytes % (A) 12 %; MCH 30.7 pg (25.0-35.0); MCHC 34.9 g/dL (31.0-37.0); Mean Platelet Volume 6.8; Monocytes % (A) 7 %; Neutrophils # (A) 11.6 k/uL (1.3-7.7); Neutrophils % (A) 76 %; Platelet Count 279 k/uL (150-450); RBC 4.04 m/uL (4.30-5.90); RDW 16.5 % (11.5-15.5); WBC 15.2 k/uL (3.8-10.6)
[2022-03-03 07:20] LABS: Partial Thromboplastin Time 22.1 sec (22.0-30.0); Prothrombin Time 10.5 sec (9.0-12.0)
--- NOTE | 2022-03-03 07:39 | XR ---
EXAM: XR Chest, 2 Views CLINICAL HISTORY: Chest Pain TECHNIQUE: Frontal and lateral views of the chest. COMPARISON: 01/27/2022. FINDINGS: Lungs: Right upper lobe atelectasis and/or infiltrates. Pleural space: Unremarkable. No pneumothorax. Heart: Mild cardiomegaly with mild pulmonary interstitial edema is likely present. Mediastinum: Unremarkable. Bones/joints: Unremarkable. IMPRESSION: 1. Right upper lobe atelectasis and/or infiltrates. CT of the chest is recommended for further evaluation. 2. Mild cardiomegaly with mild pulmonary interstitial edema is likely present.
[2022-03-03 07:54] LABS: ALT 15 U/L (4-49); AST 19 U/L (17-59); African American GFR (CKD) >90 (>60 ml/min/1.73 sqM); Albumin 3.5 g/dL (3.5-5.0); Alkaline Phosphatase 75 U/L (38-126); Blood Urea Nitrogen 19 mg/dL (9-20); Calcium 7.2 mg/dL (8.4-10.2); Glucose 127 mg/dL (74-99); Non-African American GFR(CKD) >90 (>60 ml/min/1.73 sqM); Sodium 121 mmol/L (137-145); Total Bilirubin 1.7 mg/dL (0.2-1.3); Total Protein 5.9 g/dL (6.3-8.2)
[2022-03-03] MEDS ORDERED: MORPHINE SULFATE 4 MG/ML SYRINGE IVP STA (07:57)
[2022-03-03 08:00] LABS: Anion Gap 8 mmol/L
[2022-03-03 08:01] LABS: Chloride 71 mmol/L (98-107); Potassium 1.7 mmol/L (3.5-5.1)
[2022-03-03 08:07] LABS: Carbon Dioxide 42 mmol/L (22-30)
[2022-03-03] MEDS ORDERED: POTASSIUM CHLORIDE 20 MEQ in WATER FOR INJECTION 1 100ML.BAG IVPB STA ×2 (08:07→09:24)
[2022-03-03] MEDS ORDERED: POTASSIUM CHLORIDE ER 20 MEQ TAB.ER PO STA ×2 (08:07→20:11)
[2022-03-03] MEDS ORDERED: SODIUM CHLORIDE 0.9% 1,000 ML IV ONE (08:08)
--- NOTE | 2022-03-03 09:09 | CT ---
EXAMINATION TYPE: CT chest angio for PE DATE OF EXAM: 03/03/2022 COMPARISON: No previous CT scan is available for comparison HISTORY: chest pain, SOB CT DLP: 538.5 mGy.cm. Automated Exposure Control for Dose Reduction was Utilized. TECHNIQUE AND CONTRAST: CTA scan of the thorax is performed with IV Contrast, patient injected with 100 mL of Isovue 370, pul monary embolism protocol. MIP Images are created on an independent workstation and reviewed. FINDINGS: Tiny nonocclusive filling defects are seen within the right lower lobe lateral subsegmental pulmonary arteries with questionable similar finding in the left lower lobe posterior subsegmental arteries, p ossibly artifactual versus nonocclusive pulmonary emboli. No definite filling defect within the pulmonary trunk, main pulmonary arteries, lobar, segmental and proximal subsegmental branches to suggest pulmonary embolism. Distal subsegmental branches are subopt imally assessed. The pulmonary trunk measures 3.1 cm suggesting pulmonary hypertension. No signs of r ight cardiac strain. 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 COPD changes with centrilobular emphysematous changes mainly involvin g the upper lobes. Scattered subsegmental pulmonary atelectasis with subtle areas of groundglass opac ities and peripheral reticulations. Suspected mild fibrotic changes in the left lung base. No pleural or pericardial effusion. No gross cardiomegaly. Coronary and arterial atherosclerotic calc ifications. No pathologically enlarged lymph nodes in the chest. Grossly unremarkable upper abdomen. Right gynecomastia changes. Degenerative changes of the thoracic spine and glenohumeral articulations , more on the right side. IMPRESSION: The described filling defects within the bilateral lower lobe distal subsegmental pulmonary arteries are probably artifactual versus nonocclusive pulmonary emboli. No major or central pulmonary embolism . No signs of right cardiac strain. Other findings as described above.
[2022-03-03] MEDS ORDERED: HYDROmorphone 1 MG/ML 1 ML SYRINGE IVP STA (09:11)
--- NOTE | 2022-03-03 09:12 | ED ---
General Adult HPI - General Chief complaint: Chest Pain Stated complaint: Chest Pain Time Seen by Provider: 03/03/22 07:08 Source: patient, EMS Mode of arrival: EMS Limitations: no limitations - History of Present Illness Initial comments: 71-year-old male with past medical history of COPD, A. fib, diabetes presents to the emergency department from [facility] care facility. States that he was having chest pain and shortness of breath this morning and therefore called an ambulance to bring him into the emergency department. Patient does have COPD and is chronically on oxygen. Reports that he had increased secretions with a pleuritic left-sided chest pain. Denies fevers. No nausea or vomiting. No ripping or tearing sensation to his back. No history of DVT. Patient recently fell at his extended care facility and suffered a left arm fracture. No other alleviating, precipitating or modifying factors - Related Data Home Medications Medication Instructions Recorded Confirmed Albuterol Nebulized [Ventolin 2.5 mg INHALATION RT-QID PRN 05/08/20 02/18/22 Nebulized] Omeprazole 20 mg PO DAILY 05/08/20 02/18/22 metFORMIN HCL 500 mg PO BID 05/08/20 02/18/22 Metoprolol Tartrate [Lopressor] 50 mg PO BID 07/07/20 02/18/22 Atorvastatin [Lipitor] 20 mg PO HS 01/12/21 02/18/22 amLODIPine [Norvasc] 10 mg PO DAILY 01/12/21 02/18/22 Furosemide [Lasix] 40 mg PO HS 05/02/21 02/18/22 Ipratropium-Albuterol Nebulize 3 ml INHALATION RT-Q6H PRN 05/02/21 02/18/22 [Duoneb 0.5 mg-3 mg/3 ml Soln] Gabapentin [Neurontin] 100 mg PO TID@0600,1300,2100 12/07/21 02/18/22 Tamsulosin [Flomax] 0.4 mg PO DAILY 12/07/21 02/18/22 Albuterol Sulfate [Proair Hfa] 2 puff INHALATION RT-Q12H PRN 02/18/22 02/18/22 Calcium Carb-Vit D 500Mg-5Mcg 1 tab PO DAILY 02/18/22 02/18/22 [Oscal 500+D 5 Mcg (200 Iu)] Cyanocobalamin [Vitamin B-12] 500 mcg PO DAILY 02/18/22 02/18/22 Fluticasone Nasal [place] [Flonase 1 spray EA NOSTRIL Q12H PRN 02/18/22 02/18/22 Nasal [place]] Guaifenesin/Dextrothorphan 1 tab PO Q8H PRN 02/18/22 02/18/22 HYDROcodone/APAP 7.5-325MG [[place] 1 tab PO Q4H PRN 02/18/22 02/18/22 7.5-325] Ipratropium-Albuterol Nebulize 3 ml INHALATION RT-Q4H PRN 02/18/22 02/18/22 [Duoneb 0.5 mg-3 mg/3 ml Soln] LORazepam [Ativan] 0.5 mg PO Q4H PRN 02/18/22 02/18/22 Loratadine [Claritin] 10 mg PO DAILY 02/18/22 02/18/22 Magnesium 250 mg PO DAILY 02/18/22 02/18/22 Melatonin 3 - 6 mg PO HS PRN 02/18/22 02/18/22 Morphine Sulfate [Morphine Sulfate 5 mg PO Q4H PRN 02/18/22 02/18/22 Oral Soln Concentrate] [place]-3 Fatty Acids/Fish Oil [Fish 1 cap PO DAILY 02/18/22 02/18/22 Oil 1,000 mg Softgel] Phenylephrine HCl/Prometh HCl 10 ml PO Q6H PRN 02/18/22 02/18/22 [Promethazine Vc Syrup] Potassium Chloride [Klor-Con 10 ER] 10 meq PO BID 02/18/22 02/18/22 Sennosides/Docusate Sodium [Senna 1 tab PO BID@0800,1600 02/18/22 02/18/22 Plus 8.6-50 mg Tablet] Sodium Chloride 0.65% Nasal [Deep 1 spray NASAL Q6H PRN 02/18/22 02/18/22 Sea (Saline)] Theophylline Anhydrous 400 mg PO DAILY 02/18/22 02/18/22 [Theophylline] metOLazone [Zaroxolyn] 10 mg PO BID 02/18/22 02/18/22 Previous Rx's Medication Instructions Recorded Apixaban [Eliquis] 5 mg PO BID #60 tab 10/27/20 Nicotine 21Mg/24Hr Patch [Habitrol] 1 patch TRANSDERM DAILY patch 12/11/21 predniSONE 10 mg PO DAILY #0 12/11/21 Allergies Allergy/AdvReac Type Severity Reaction Status Date / Time ANJU Inhibitors Allergy Unknown - Verified 02/18/22 13:26 per [facility] doxycycline Allergy Anaphylaxis Verified 02/18/22 13:26 Penicillins Allergy Anaphylaxis Verified 02/18/22 13:26 Review of Systems ROS Statement: Those systems with pertinent positive or pertinent negative responses have been documented in the HPI. ROS Other: All systems not noted in ROS Statement are negative. Past Medical History Past Medical History: Atrial Fibrillation, Asthma, COPD, Diabetes Mellitus, GERD/Reflux, Hyperlipidemia, Hypertension, Osteoarthritis (OA), Pneumonia Additional Past Medical History / Comment(s): Afib RVR, home oxygen prn, bronchitis, pt states he is on metformin to prevent becoming diabetic, neuropathy bilateral feet/L hand, chronic pain back,/bilateral hips/knees/elbows and shoulders, L heel pain, FALLS, cataracts. History of Any Multi-Drug Resistant Organisms: None Reported Past Surgical History: Appendectomy Additional Past Surgical History / Comment(s): Colonoscopy Past Anesthesia/Blood Transfusion Reactions: No Reported Reaction Past Psychological History: Anxiety, Depression Smoking Status: Current every day smoker Past Alcohol Use History: Occasional Past Drug Use History: None Reported - Past Family History Father Family Medical History: Congestive Heart Failure (CHF), COPD Additional Family Medical History / Comment(s): Father was an alcoholic but was able to quit drinking Mother Family Medical History: Congestive Heart Failure (CHF), COPD Additional Family Medical History / Comment(s): Mother was an alcoholic. Daughter(s) Additional Family Medical History / Comment(s): Liver cancer General Exam Limitations: no limitations Course Vital Signs 03/03/22 05:21 Temperature 97.9 F Pulse Rate 112 H Respiratory 20 Rate Blood Pressure 136/81 O2 Sat by Pulse 93 L Oximetry EKG Findings - EKG Comments: EKG Findings:: EKG demonstrates A. fib with a rapid rate of 108. QRS 128. QTC of 434. Mild ST depression V3 through V6 as well as 2, 3 and aVF. Medical Decision Making - Medical Decision Making Upon arrival the patient was placed into trauma 2. A thorough history and physical exam was performed. Laboratory studies were conducted. I did get the patient's CMP results. These were reviewed and reordered as they were markedly low. Repeat labs continue to demonstrate a low potassium of 1.7 and a sodium of 121. Review the patient's chart demonstrates that he has had hyponatremia before. Previously attributed to Cymbalta and chlorthalidone. Patient has RD received 1 L bolus of normal saline. Physical exam does demonstrate mild h ypervolemia and therefore we will hold off on fluids at this time and consult nephrology. Patient did give 40 mEq of oral potassium and 40 mEq through the IV. He is sent over for a CT of his chest which demonstrates questionable filling defects in the lower lobes artifactual. Patient is already on Eliquis and therefore I will continue this. I spoke with Dr. ureña who will admit the patient. Patient awaiting a bed on the floor in stable condition - Lab Data Result diagrams: 03/03/22 06:35 03/03/22 07:36 Lab Results 03/03/22 03/03/22 03/03/22 Range/Units 06:35 06:35 06:35 WBC 15.2 H (3.8-10.6) k/uL RBC 4.04 L (4.30-5.90) m/uL Hgb 12.4 L (13.0-17.5) gm/dL Hct 35.6 L (39.0-53.0) % MCV 88.0 (80.0-100.0) fL MCH 30.7 (25.0-35.0) pg MCHC 34.9 (31.0-37.0) g/dL RDW 16.5 H (11.5-15.5) % Plt Count 279 (150-450) k/uL MPV 6.8 Neutrophils % 76 % Lymphocytes % 12 % Monocytes % 7 % Eosinophils % 2 % Basophils % 1 % Neutrophils # 11.6 H (1.3-7.7) k/uL Lymphocytes # 1.9 (1.0-4.8) k/uL Monocytes # 1.0 (0-1.0) k/uL Eosinophils # 0.3 (0-0.7) k/uL Basophils # 0.2 (0-0.2) k/uL Anisocytosis Slight PT 10.5 (9.0-12.0) sec INR 1.0 (<1.2) APTT 22.1 (22.0-30.0) sec Sodium (137-145) mmol/L Potassium (3.5-5.1) mmol/L Chloride (98-107) mmol/L Carbon Dioxide (22-30) mmol/L Anion Gap mmol/L BUN (9-20) mg/dL Creatinine (0.66-1.25) mg/dL Est GFR (CKD-EPI)AfAm (>60 ml/min/1.73 sqM) Est GFR (CKD-EPI)NonAf (>60 ml/min/1.73 sqM) Glucose (74-99) mg/dL Calcium (8.4-10.2) mg/dL Total Bilirubin (0.2-1.3) mg/dL AST (17-59) U/L ALT (4-49) U/L Alkaline Phosphatase (38-126) U/L Troponin I 0.022 (0.000-0.034) ng/mL Total Protein (6.3-8.2) g/dL Albumin (3.5-5.0) g/dL 03/03/22 Range/Units 07:36 WBC (3.8-10.6) k/uL RBC (4.30-5.90) m/uL Hgb (13.0-17.5) gm/dL Hct (39.0-53.0) % MCV (80.0-100.0) fL MCH (25.0-35.0) pg MCHC (31.0-37.0) g/dL RDW (11.5-15.5) % Plt Count (150-450) k/uL MPV Neutrophils % % Lymphocytes % % Monocytes % % Eosinophils % % Basophils % % Neutrophils # (1.3-7.7) k/uL Lymphocytes # (1.0-4.8) k/uL Monocytes # (0-1.0) k/uL Eosinophils # (0-0.7) k/uL Basophils # (0-0.2) k/uL Anisocytosis PT (9.0-12.0) sec INR (<1.2) APTT (22.0-30.0) sec Sodium 121 L (137-145) mmol/L Potassium 1.7 L* (3.5-5.1) mmol/L Chloride 71 L* (98-107) mmol/L Carbon Dioxide 42 H* (22-30) mmol/L Anion Gap 8 mmol/L BUN 19 (9-20) mg/dL Creatinine 0.61 L (0.66-1.25) mg/dL Est GFR (CKD-EPI)AfAm >90 (>60 ml/min/1.73 sqM) Est GFR (CKD-EPI)NonAf >90 (>60 ml/min/1.73 sqM) Glucose 127 H (74-99) mg/dL Calcium 7.2 L (8.4-10.2) mg/dL Total Bilirubin 1.7 H (0.2-1.3) mg/dL AST 19 (17-59) U/L ALT 15 (4-49) U/L Alkaline Phosphatase 75 (38-126) U/L Troponin I (0.000-0.034) ng/mL Total Protein 5.9 L (6.3-8.2) g/dL Albumin 3.5 (3.5-5.0) g/dL Disposition Clinical Impression: Chronic atrial fibrillation, Acute and chronic respiratory failure with hypoxia, Hyponatremia, Hypokalemia Disposition: ADMITTED IP TO THIS [facility] Condition: Serious Is patient prescribed a controlled substance at d/c from ED?: No Referrals: Elver Jackson MD [Primary Care Provider] - 1-2 days Time of Disposition: 09:30 Decision to Admit Reason: Admit from EC Decision Date: 03/03/22 Decision Time: 09:30
[2022-03-03] MEDS ORDERED: NALOXONE 0.4 MG/ML 1 ML VIAL IV PRN (09:31)
[2022-03-03] MEDS ORDERED: HYDROmorphone 1 MG/ML 1 ML SYRINGE IVP PRN (09:31)
[2022-03-03 10:16] LABS: Magnesium 0.9 mg/dL (1.6-2.3)
--- NOTE | 2022-03-03 10:34 | P.HPIM ---
History of Present Illness This is a pleasant 71 years old male with past medical history of Atrial Fibrillation, on liquids, COPD, Diabetes Mellitus, GERD/Reflux, Hyperlipidemia, Hypertension, Osteoarthritis, home oxygen prn, bronchitis, diabetic neuropathy bilateral feet/L hand, chronic pain back,/bilateral hips/knees/elbows and shoulders, L heel pain, FALLS, cataracts. from extended care facility. He presents because of chest pain or dyspnea of 1- 2 days duration, chest pain was severe to the left side, nonradiating, but now is gone. No dizziness or lightheadedness. Patient also has been complaining of from dyspnea cough with sticky phlegm for the last 2 days. 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 Jones and he is on 2 L of her significant is AT HOME. HE STATES HE QUIT SMOKING ABOUT A MONTH AGO, USED TO SMOKE 2 PACKS PER DAY. He denies abdominal pain or vomiting or diarrhea. No urinary complaints. No fever. Patient was found to be severely hypokalemic and hypernatremic most likely secondary to diuretic. Lasix was listed on of his home medication. Also there is mention of chlorthalidone. Patient is tachycardic 112, rest of vitals are stable and patient is afebrile Labs showing severe carpal natremia 121 and hypokalemia 1.7. Carbon dioxide elevated 42, creatinine normal 0.6. Liver enzymes are not elevated. Bilirubin is slightly elevated at 1.7. Glucose is 127. CBC showed leukocytosis of 15.2. He has chronic leukocytosis Hemoglobin is 12.4. Platelet count 279. Troponin is -0.02 Chest CTA.: The filling defects within the bilateral lower lobe distal subsegmental pulmonary arteries are probably artifact versus nonocclusive pulmonary emboli. No major central pulmonary embolism. No signs of cardiac strain. Review of Systems CONSTITUTIONAL: No fever, no malaise, no fatigue. HEENT: No recent visual problems or hearing problems. Denied any sore throat. CARDIOVASCULAR: No orthopnea, PND, no palpitations, no syncope. PULMONARY: No chest wall tenderness, no hemoptysis. GASTROINTESTINAL: No diarrhea, no nausea, no vomiting, no abdominal pain. Normoactive bowel sounds. NEUROLOGICAL: No headaches, no weakness, no numbness. HEMATOLOGICAL: Denies any bleeding or petechiae. GENITOURINARY: Denies any burning micturition, frequency, or urgency. MUSCULOSKELETAL/RHEUMATOLOGICAL: Denies any joint pain, swelling, or any muscle pain. ENDOCRINE: Denies any polyuria or polydipsia. Past Medical History Past Medical History: Atrial Fibrillation, Asthma, COPD, Diabetes Mellitus, GERD/Reflux, Hyperlipidemia, Hypertension, Osteoarthritis (OA), Pneumonia Additional Past Medical History / Comment(s): Afib RVR, home oxygen prn, bron chitis, pt states he is on metformin to prevent becoming diabetic, neuropathy bilateral feet/L hand, chronic pain back,/bilateral hips/knees/elbows and shoulders, L heel pain, FALLS, cataracts. History of Any Multi-Drug Resistant Organisms: None Reported Past Surgical History: Appendectomy Additional Past Surgical History / Comment(s): Colonoscopy Past Anesthesia/Blood Transfusion Reactions: No Reported Reaction Past Psychological History: Anxiety, Depression Smoking Status: Current every day smoker Past Alcohol Use History: Occasional Past Drug Use History: None Reported - Past Family History Father Family Medical History: Congestive Heart Failure (CHF), COPD Additional Family Medical History / Comment(s): Father was an alcoholic but was able to quit drinking Mother Family Medical History: Congestive Heart Failure (CHF), COPD Additional Family Medical History / Comment(s): Mother was an alcoholic. Daughter(s) Additional Family Medical History / Comment(s): Liver cancer Medications and Allergies Home Medications Medication Instructions Recorded Confirmed Type Albuterol Nebulized [Ventolin 2.5 mg INHALATION RT-QID PRN 05/08/20 02/18/22 History Nebulized] Omeprazole 20 mg PO DAILY 05/08/20 02/18/22 History metFORMIN HCL 500 mg PO BID 05/08/20 02/18/22 History Metoprolol Tartrate [Lopressor] 50 mg PO BID 07/07/20 02/18/22 History Apixaban [Eliquis] 5 mg PO BID #60 tab 07/08/20 02/18/22 Rx Atorvastatin [Lipitor] 20 mg PO HS 01/12/21 02/18/22 History amLODIPine [Norvasc] 10 mg PO DAILY 01/12/21 02/18/22 History Furosemide [Lasix] 40 mg PO HS 05/02/21 02/18/22 History Ipratropium-Albuterol Nebulize 3 ml INHALATION RT-Q6H PRN 05/02/21 02/18/22 History [Duoneb 0.5 mg-3 mg/3 ml Soln] Gabapentin [Neurontin] 100 mg PO TID@0600,1300,2100 12/07/21 02/18/22 History Tamsulosin [Flomax] 0.4 mg PO DAILY 12/07/21 02/18/22 History Nicotine 21Mg/24Hr Patch [Habitrol] 1 patch TRANSDERM DAILY patch 12/11/21 02/18/22 Rx predniSONE 10 mg PO DAILY #0 12/11/21 02/18/22 Rx Albuterol Sulfate [Proair Hfa] 2 puff INHALATION RT-Q12H PRN 02/18/22 02/18/22 History Calcium Carb-Vit D 500Mg-5Mcg 1 tab PO DAILY 02/18/22 02/18/22 History [Oscal 500+D 5 Mcg (200 Iu)] Cyanocobalamin [Vitamin B-12] 500 mcg PO DAILY 02/18/22 02/18/22 History Fluticasone Nasal [place] [Flonase 1 spray EA NOSTRIL Q12H PRN 02/18/22 02/18/22 History Nasal [place]] Guaifenesin/Dextrothorphan 1 tab PO Q8H PRN 02/18/22 02/18/22 History HYDROcodone/APAP 7.5-325MG [[place] 1 tab PO Q4H PRN 02/18/22 02/18/22 History 7.5-325] Ipratropium-Albuterol Nebulize 3 ml INHALATION RT-Q4H PRN 02/18/22 02/18/22 History [Duoneb 0.5 mg-3 mg/3 ml Soln] LORazepam [Ativan] 0.5 mg PO Q4H PRN 02/18/22 02/18/22 History Loratadine [Claritin] 10 mg PO DAILY 02/18/22 02/18/22 History Magnesium 250 mg PO DAILY 02/18/22 02/18/22 History Melatonin 3 - 6 mg PO HS PRN 02/18/22 02/18/22 History Morphine Sulfate [Morphine Sulfate 5 mg PO Q4H PRN 02/18/22 02/18/22 History Oral Soln Concentrate] [place]-3 Fatty Acids/Fish Oil [Fish 1 cap PO DAILY 02/18/22 02/18/22 History Oil 1,000 mg Softgel] Phenylephrine HCl/Prometh HCl 10 ml PO Q6H PRN 02/18/22 02/18/22 History [Promethazine Vc Syrup] Potassium Chloride [Klor-Con 10 ER] 10 meq PO BID 02/18/22 02/18/22 History Sennosides/Docusate Sodium [Senna 1 tab PO BID@0800,1600 02/18/22 02/18/22 History Plus 8.6-50 mg Tablet] Sodium Chloride 0.65% Nasal [Deep 1 spray NASAL Q6H PRN 02/18/22 02/18/22 History Sea (Saline)] Theophylline Anhydrous 400 mg PO DAILY 02/18/22 02/18/22 History [Theophylline] metOLazone [Zaroxolyn] 10 mg PO BID 02/18/22 02/18/22 History Allergies Allergy/AdvReac Type Severity Reaction Status Date / Time ANJU Inhibitors Allergy Unknown - Verified 02/18/22 13:26 per [facility] doxycycline Allergy Anaphylaxis Verified 02/18/22 13:26 Penicillins Allergy Anaphylaxis Verified 02/18/22 13:26 Physical Exam Vitals: Vital Signs Temp Pulse Resp BP Pulse Ox 03/03/22 05:21 97.9 F 112 H 20 136/81 93 L Intake and Output 03/02/22 03/03/22 03/03/22 22:59 06:59 14:59 Other: Weight 110 kg -GENERAL: The patient is alert and oriented x3, not in any acute distress. Obese HEENT: Pupils are round and equally reacting to light. EOMI. No scleral icterus. No conjunctival pallor. Normocephalic, atraumatic. No pharyngeal erythema. No thyromegaly. CARDIOVASCULAR: S1 and S2 present. No murmurs, rubs, or gallops. -PULMONARY: Chest is clear to auscultation, bilateral expiratory wheezing. No crackles or crackles. ABDOMEN: Soft, nontender, nondistended, normoactive bowel sounds. No palpable organomegaly. MUSCULOSKELETAL: No joint swelling or deformity. EXTREMITIES: No cyanosis, clubbing, or pedal edema. NEUROLOGICAL: Gross neurological examination did not reveal any focal deficits. SKIN: No rashes. No petechiae Results CBC & Chem 7: 03/03/22 06:35 03/03/22 07:36 Labs: Abnormal Lab Results - Last 24 Hours (Table) 03/03/22 03/03/22 Range/Units 06:35 07:36 WBC 15.2 H (3.8-10.6) k/uL RBC 4.04 L (4.30-5.90) m/uL Hgb 12.4 L (13.0-17.5) gm/dL Hct 35.6 L (39.0-53.0) % RDW 16.5 H (11.5-15.5) % Neutrophils # 11.6 H (1.3-7.7) k/uL Sodium 121 L (137-145) mmol/L Potassium 1.7 L* (3.5-5.1) mmol/L Chloride 71 L* (98-107) mmol/L Carbon Dioxide 42 H* (22-30) mmol/L Creatinine 0.61 L (0.66-1.25) mg/dL Glucose 127 H (74-99) mg/dL Calcium 7.2 L (8.4-10.2) mg/dL Total Bilirubin 1.7 H (0.2-1.3) mg/dL Total Protein 5.9 L (6.3-8.2) g/dL Assessment and Plan Assessment: Acute hyponatremia and acute hypokalemia most likely secondary to diuretics Acute COPD exacerbation Chest pain, secondary COPD. Resolved Chronic hypoxemic respiratory failure, ventilator oxygen via nasal cannula Chronic atrial fibrillation on liquids Hypertension Diabetes mellitus Hyperlipidemia History of GERD History of osteoarthritis Diabetic neuropathy Chronic back pain Obesity with BMI of 32.9 Plan: This is A pleasant 71 years old male who presents because of chest pain Also he has a productive and hypokalemia Please electrolytes per protocol. Start Solu-Medrol, breathing treatment. Pulmonary consult Labs and medication were reviewed.. Continue same treatment. Continue with symptomatic treatment. Resume home medication. Monitor lytes and vitals. DVT and GI prophylaxis. Further recommendations depends on the clinical course of the patient DVT prophylaxis: Eliquis GI Prophylaxis: Pepcid PT/OT: Pending Prognosis is guarded
[2022-03-03] MEDS: MAGNESIUM SULFATE-D5W PMX 1 GM in DEXTROSE/WATER 1 100ML.BAG IVPB SCH ×4 (10:51→17:29)
[2022-03-03] MEDS: APIXABAN 5 MG TAB PO SCH ×2 (10:52→20:41)
[2022-03-03 10:55] LABS: Creatinine,Urine Random 32.9 mg/dL
[2022-03-03] MEDS ORDERED: CALCIUM GLUCONATE IN NACL 1 GM in SALINE 1 100ML.BAG IVPB ONE (11:47)
--- NOTE | 2022-03-03 11:48 | P.NPCON ---
History of Present Illness - Reason for Consult hyponatremia, hypokalemia - History of Present Illness Reason for consultation: Electrolyte imbalance History of present illness: Patient is a 71-year-old male seen in consultation for electrolyte imbalance. Patient presented to the hospital due to chest pain or shortness of breath that he developed last night. Patient states he could not find an aide to help so he called EMS to come to the hospital. Patient states he was having a cough but was unable to bring up phlegm. Patient was taking Lasix as well as high-dose metolazone outpatient. Patient was noted to be hyponatremic with sodium level of 121. Potassium level was 1.7. He was alkalotic with a bicarb level of 42 and magnesium was low at 0.9. Patient denies any vomiting or diarrhea. States he's been eating and drinking fairly well. No hematuria or dysuria. GFR is at baseline. Creatinine 0.6. He denies any history of cardiac stenting. He denies history of diabetes however to see metformin and his home medication list. No fever or chills. CTA showed no major central PE. He is receiving steroids for COPD exacerbation. Vital signs are stable. General: No acute distress. HEENT: Head exam is unremarkable. LUNGS: Breath sounds decreased. HEART: Rate and Rhythm are regular. ABDOMEN: Soft, obese. EXTREMITITES: No edema. Wound on his foot noted. No drainage. Past Medical History Past Medical History: Atrial Fibrillation, Asthma, COPD, Diabetes Mellitus, GERD/Reflux, Hyperlipidemia, Hypertension, Osteoarthritis (OA), Pneumonia Additional Past Medical History / Comment(s): Afib RVR, home oxygen prn, br onchitis, pt states he is on metformin to prevent becoming diabetic, neuropathy bilateral feet/L hand, chronic pain back,/bilateral hips/knees/elbows and shoulders, L heel pain, FALLS, cataracts. History of Any Multi-Drug Resistant Organisms: None Reported Past Surgical History: Appendectomy Additional Past Surgical History / Comment(s): Colonoscopy Past Anesthesia/Blood Transfusion Reactions: No Reported Reaction Past Psychological History: Anxiety, Depression Smoking Status: Current every day smoker Past Alcohol Use History: Occasional Past Drug Use History: None Reported - Past Family History Father Family Medical History: Congestive Heart Failure (CHF), COPD Additional Family Medical History / Comment(s): Father was an alcoholic but was able to quit drinking Mother Family Medical History: Congestive Heart Failure (CHF), COPD Additional Family Medical History / Comment(s): Mother was an alcoholic. Daughter(s) Additional Family Medical History / Comment(s): Liver cancer Medications and Allergies Home Medications Medication Instructions Recorded Confirmed Type Albuterol Nebulized [Ventolin 2.5 mg INHALATION RT-Q6H PRN 05/08/20 03/03/22 History Nebulized] Omeprazole 20 mg PO DAILY 05/08/20 03/03/22 History metFORMIN HCL 500 mg PO BID 05/08/20 03/03/22 History Metoprolol Tartrate [Lopressor] 50 mg PO BID 07/07/20 03/03/22 History Apixaban [Eliquis] 5 mg PO BID #60 tab 07/08/20 03/03/22 Rx Atorvastatin [Lipitor] 20 mg PO HS 01/12/21 03/03/22 History amLODIPine [Norvasc] 10 mg PO DAILY 01/12/21 03/03/22 History Furosemide [Lasix] 40 mg PO HS 05/02/21 03/03/22 History Ipratropium-Albuterol Nebulize 3 ml INHALATION RT-Q6H PRN 05/02/21 03/03/22 History [Duoneb 0.5 mg-3 mg/3 ml Soln] Gabapentin [Neurontin] 100 mg PO TID@0500,1300,2100 12/07/21 03/03/22 History Tamsulosin [Flomax] 0.4 mg PO HS 12/07/21 03/03/22 History Nicotine 21Mg/24Hr Patch [Habitrol] 1 patch TRANSDERM DAILY patch 12/11/21 03/03/22 Rx predniSONE 10 mg PO DAILY #0 12/11/21 03/03/22 Rx Albuterol Sulfate [Proair Hfa] 2 puff INHALATION RT-Q12H PRN 02/18/22 03/03/22 History Calcium Carb-Vit D 500Mg-5Mcg 1 tab PO DAILY 02/18/22 03/03/22 History [Oscal 500+D 5 Mcg (200 Iu)] Cyanocobalamin [Vitamin B-12] 500 mcg PO DAILY 02/18/22 03/03/22 History Fluticasone Nasal [place] [Flonase 1 spray EA NOSTRIL Q12H PRN 02/18/22 03/03/22 History Nasal [place]] Guaifenesin/Dextrothorphan 1 tab PO Q8H PRN 02/18/22 03/03/22 History HYDROcodone/APAP 7.5-325MG [[place] 1 tab PO Q4H PRN 02/18/22 03/03/22 History 7.5-325] Ipratropium-Albuterol Nebulize 3 ml INHALATION RT-Q4H PRN 02/18/22 03/03/22 History [Duoneb 0.5 mg-3 mg/3 ml Soln] LORazepam [Ativan] 0.5 mg PO Q4H PRN 02/18/22 03/03/22 History Loratadine [Claritin] 10 mg PO DAILY 02/18/22 03/03/22 History Magnesium 250 mg PO DAILY 02/18/22 03/03/22 History Melatonin 3 mg PO HS PRN 02/18/22 03/03/22 History [place]-3 Fatty Acids/Fish Oil [Fish 1 cap PO DAILY 02/18/22 03/03/22 History Oil 1,000 mg Softgel] Phenylephrine HCl/Prometh HCl 10 ml PO Q6H PRN 02/18/22 03/03/22 History [Promethazine Vc Syrup] Potassium Chloride [Klor-Con 10 ER] 10 meq PO BID 02/18/22 03/03/22 History Sennosides/Docusate Sodium [Senna 1 tab PO BID@0800,1600 02/18/22 03/03/22 History Plus 8.6-50 mg Tablet] Sodium Chloride 0.65% Nasal [Deep 1 spray NASAL Q6H PRN 02/18/22 03/03/22 History Sea (Saline)] Theophylline Anhydrous 400 mg PO DAILY 02/18/22 03/03/22 History [Theophylline] metOLazone [Zaroxolyn] 10 mg PO BID 02/18/22 03/03/22 History Allergies Allergy/AdvReac Type Severity Reaction Status Date / Time ANJU Inhibitors Allergy Unknown - Verified 03/03/22 11:06 per [facility] doxycycline Allergy Anaphylaxis Verified 03/03/22 11:06 Penicillins Allergy Anaphylaxis Verified 03/03/22 11:06 Physical Exam Vitals: Vital Signs Temp Pulse Resp BP Pulse Ox 03/03/22 05:21 97.9 F 112 H 20 136/81 93 L Intake and Output 03/02/22 03/03/22 03/03/22 22:59 06:59 14:59 Other: Weight 110 kg Results - Lab Results Most recent lab results Calcium 7.2 mg/dL (8.4-10.2) L 03/03/22 07:36 Magnesium 0.9 mg/dL (1.6-2.3) L* 03/03/22 07:36 03/03/22 06:35 03/03/22 07:36 Assessment and Plan Plan: Assessment: 1. Hyponatremia secondary to overdiuresis. Patient was taking Lasix as well as metolazone outpatient. Sodium level 121 on admission this morning. 2. Hypokalemia secondary to diuretics and hypomagnesemia. 3. Hypomagnesemia secondary to diuretics. No diarrhea. 4. Metabolic alkalosis. This is mostly compensatory for underlying respiratory acidosis as well as component of contraction alkalosis from diuretics. 5. Hypocalcemia secondary to diuretics. 6. COPD exacerbation. Plan: Potassium is being replaced. Replace magnesium as well. 4 g IV magnesium sulfate today. Hold all diuretics. Start normal saline at 50 mL an hour. Repeat BMP and magnesium level at 5 PM today. Check serum and urine osmolality. Check urine sodium level. Check TSH. 1 g IV calcium gluconate today. Thank you for the consultation. I will continue to follow the patient with you during his hospital stay.
[2022-03-03 12:16] LABS: Glucose,Whole Blood 157 mg/dL (70-110)
[2022-03-03] MEDS: SODIUM CHLORIDE 0.9% 1,000 ML IV SCH (13:33)
[2022-03-03 15:08] LABS: ALT 17 U/L (4-49); AST 20 U/L (17-59); African American GFR (CKD) >90 (>60 ml/min/1.73 sqM); Albumin 3.7 g/dL (3.5-5.0); Alkaline Phosphatase 83 U/L (38-126); Anion Gap 9 mmol/L; Blood Urea Nitrogen 18 mg/dL (9-20); Calcium 7.3 mg/dL (8.4-10.2); Carbon Dioxide 37 mmol/L (22-30); Chloride 76 mmol/L (98-107); Glucose 128 mg/dL (74-99); Non-African American GFR(CKD) >90 (>60 ml/min/1.73 sqM); Sodium 122 mmol/L (137-145); Total Bilirubin 1.5 mg/dL (0.2-1.3); Total Protein 6.2 g/dL (6.3-8.2)
[2022-03-03 15:10] LABS: Potassium 1.9 mmol/L (3.5-5.1)
--- NOTE | 2022-03-03 15:36 | P.CNPUL ---
History of Present Illness Consult date: 03/03/22 Requesting physician: Elver Jackson Reason for consult: dyspnea, cough, chest pain, COPD, hypoxemia Chief complaint: Chest pain and chest congestion. History of present illness: Pulmonary consultation dated 03/03/2022. 71-year-old male well-known to our service. The patient has a history of COPD, chronic hypoxemic respiratory failure, atrial fibrillation, diabetes, and obesity. The patient was brought in to the emergency room on March 03, from the [facility], because of chest pain and shortness of breath, and chest congestion. The patient's pain according the ER physician was described as pleuritic in nature. The patient is not having chest pain we see him today. He seen in the emergency room, room 25. The patient recently fell at the [facility], and suffered a left arm fracture. The patient is hoping to return to his own home, after discharge from the hospital. He apparently was initially a hospice patient, but apparently has decided against being a hospice patient. Cu rrently, white count is 15.2, hemoglobin 12.4, hematocrit 35.6, platelet count 279,000. PT/INR and PTT are all normal. Sodium 122, potassium 1.9, chloride 76, CO2 37, anion gap is 9, BUN 18, creatinine 0.61. The patient's calcium is 7.3. Albumin is 3.7. EKG was consistent with atrial fibrillation with rapid ventricular response of about 110 beats a minute. The patient's chest x-ray shows some right upper lobe atelectasis and some mild cardiomegaly. CAT scan is reviewed. The findings are suggestive of COPD, saber sheath trachea, and scattered atelectasis and some ground glass particularly she is consistent with mild fibrotic changes. No large central emboli are seen. Review of Systems REVIEW OF SYSTEMS: CONSTITUTIONAL: [Negative.] NEUROLOGIC: [ Negative.] HEENT: [ Negative.] CARDIAC: Chest pain. PULMONARY: Shortness of breath chest congestion. GI: [Negative.] : [Negative.] RHEUMATOLOGIC: [ Negative.] IMMUNOLOGIC: [ Negative.] ENDOCRINE: [Negative. ] DERMATOLOGIC: [Negative.] Past Medical History Past Medical History: Atrial Fibrillation, Asthma, COPD, Diabetes Mellitus, GERD/Reflux, Hyperlipidemia, Hypertension, Osteoarthritis (OA), Pneumonia Additional Past Medical History / Comment(s): Afib RVR, home oxygen prn, bronchitis, pt states he is on metformin to prevent becoming diabetic, neuropathy bilateral feet/L hand, chronic pain back,/bilateral hips/knees/elbows and shoulders, L heel pain, FALLS, cataracts. History of Any Multi-Drug Resistant Organisms: None Reported Past Surgical History: Appendectomy Additional Past Surgical History / Comment(s): Colonoscopy Past Anesthesia/Blood Transfusion Reactions: No Reported Reaction Past Psychological History: Anxiety, Depression Smoking Status: Current every day smoker Past Alcohol Use History: Occasional Past Drug Use History: None Reported - Past Family History Father Family Medical History: Congestive Heart Failure (CHF), COPD Additional Family Medical History / Comment(s): Father was an alcoholic but was able to quit drinking Mother Family Medical History: Congestive Heart Failure (CHF), COPD Additional Family Medical History / Comment(s): Mother was an alcoholic. Daughter(s) Additional Family Medical History / Comment(s): Liver cancer Medications and Allergies Home Medications Medication Instructions Recorded Confirmed Type Albuterol Nebulized [Ventolin 2.5 mg INHALATION RT-Q6H PRN 05/08/20 03/03/22 History Nebulized] Omeprazole 20 mg PO DAILY 05/08/20 03/03/22 History metFORMIN HCL 500 mg PO BID 05/08/20 03/03/22 History Metoprolol Tartrate [Lopressor] 50 mg PO BID 07/07/20 03/03/22 History Apixaban [Eliquis] 5 mg PO BID #60 tab 07/08/20 03/03/22 Rx Atorvastatin [Lipitor] 20 mg PO HS 01/12/21 03/03/22 History amLODIPine [Norvasc] 10 mg PO DAILY 01/12/21 03/03/22 History Furosemide [Lasix] 40 mg PO HS 05/02/21 03/03/22 History Ipratropium-Albuterol Nebulize 3 ml INHALATION RT-Q6H PRN 05/02/21 03/03/22 History [Duoneb 0.5 mg-3 mg/3 ml Soln] Gabapentin [Neurontin] 100 mg PO TID@0500,1300,2100 12/07/21 03/03/22 History Tamsulosin [Flomax] 0.4 mg PO HS 12/07/21 03/03/22 History Nicotine 21Mg/24Hr Patch [Habitrol] 1 patch TRANSDERM DAILY patch 12/11/21 03/03/22 Rx predniSONE 10 mg PO DAILY #0 12/11/21 03/03/22 Rx Albuterol Sulfate [Proair Hfa] 2 puff INHALATION RT-Q12H PRN 02/18/22 03/03/22 History Calcium Carb-Vit D 500Mg-5Mcg 1 tab PO DAILY 02/18/22 03/03/22 History [Oscal 500+D 5 Mcg (200 Iu)] Cyanocobalamin [Vitamin B-12] 500 mcg PO DAILY 02/18/22 03/03/22 History Fluticasone Nasal [place] [Flonase 1 spray EA NOSTRIL Q12H PRN 02/18/22 03/03/22 History Nasal [place]] Guaifenesin/Dextrothorphan 1 tab PO Q8H PRN 02/18/22 03/03/22 History HYDROcodone/APAP 7.5-325MG [[place] 1 tab PO Q4H PRN 02/18/22 03/03/22 History 7.5-325] Ipratropium-Albuterol Nebulize 3 ml INHALATION RT-Q4H PRN 02/18/22 03/03/22 History [Duoneb 0.5 mg-3 mg/3 ml Soln] LORazepam [Ativan] 0.5 mg PO Q4H PRN 02/18/22 03/03/22 History Loratadine [Claritin] 10 mg PO DAILY 02/18/22 03/03/22 History Magnesium 250 mg PO DAILY 02/18/22 03/03/22 History Melatonin 3 mg PO HS PRN 02/18/22 03/03/22 History [place]-3 Fatty Acids/Fish Oil [Fish 1 cap PO DAILY 02/18/22 03/03/22 History Oil 1,000 mg Softgel] Phenylephrine HCl/Prometh HCl 10 ml PO Q6H PRN 02/18/22 03/03/22 History [Promethazine Vc Syrup] Potassium Chloride [Klor-Con 10 ER] 10 meq PO BID 02/18/22 03/03/22 History Sennosides/Docusate Sodium [Senna 1 tab PO BID@0800,1600 02/18/22 03/03/22 History Plus 8.6-50 mg Tablet] Sodium Chloride 0.65% Nasal [Deep 1 spray NASAL Q6H PRN 02/18/22 03/03/22 History Sea (Saline)] Theophylline Anhydrous 400 mg PO DAILY 02/18/22 03/03/22 History [Theophylline] metOLazone [Zaroxolyn] 10 mg PO BID 02/18/22 03/03/22 History Allergies Allergy/AdvReac Type Severity Reaction Status Date / Time ANJU Inhibitors Allergy Unknown - Verified 03/03/22 11:06 per [facility] doxycycline Allergy Anaphylaxis Verified 03/03/22 11:06 Penicillins Allergy Anaphylaxis Verified 03/03/22 11:06 Physical Exam Osteopathic Statement: *. No significant issues noted on an osteopathic structural exam other than those noted in the History and Physical/Consult. Vitals: Vital Signs Temp Pulse Pulse Resp BP BP Pulse Ox 03/03/22 13:43 96 16 03/03/22 12:00 96 16 116/70 94 L 03/03/22 11:30 102 H 16 100 03/03/22 11:00 89 18 110/76 96 03/03/22 08:30 91/65 03/03/22 08:00 114 H 121/85 91 L 03/03/22 07:35 126/90 94 L 03/03/22 05:21 97.9 F 112 H 20 136/81 93 L Intake and Output 03/03/22 03/03/22 03/03/22 06:59 14:59 22:59 Other: Voiding Method Urinal Weight 110 kg No acute distress, oriented 3. Currently on 4 L nasal cannula. HEENT examination is grossly unremarkable. Neck supple. Full range of motion. No adenopathy thyromegaly or neck vein distention. Cardiovascular examination reveals regular rhythm rate. S1-S2 normal. No S3 or S4. No discernible murmur noted. Heart rate 96 bpm. Lungs reveal scattered bilateral rhonchi and very mild expiratory wheezes. No crackles. Breath sounds equal bilaterally. 4 L saturation is 100%. Abdomen soft bowel sounds are heard. No masses or tenderness. Extremities are intact. No cyanosis clubbing or edema. There is a cast on the left forearm. Skin is without rash or lesion. Neurologic examination is brief but nonfocal. Results - Laboratory Findings CBC and BMP: 03/03/22 06:35 03/03/22 10:28 PT/INR, D-dimer PT 10.5 sec (9.0-12.0) 03/03/22 06:35 INR 1.0 (<1.2) 03/03/22 06:35 Abnormal lab findings: Abnormal Labs 03/03/22 03/03/22 03/03/22 06:35 07:35 07:36 WBC 15.2 H RBC 4.04 L Hgb 12.4 L Hct 35.6 L RDW 16.5 H Neutrophils # 11.6 H Sodium 121 L Potassium 1.7 L* Chloride 71 L* Carbon Dioxide 42 H* Creatinine 0.61 L Glucose 127 H POC Glucose (mg/dL) Osmolality 251 L Calcium 7.2 L Magnesium 0.9 L* Total Bilirubin 1.7 H Total Protein 5.9 L 03/03/22 03/03/22 10:28 12:13 WBC RBC Hgb Hct RDW Neutrophils # Sodium 122 L Potassium 1.9 L* Chloride 76 L Carbon Dioxide 37 H Creatinine 0.61 L Glucose 128 H POC Glucose (mg/dL) 157 H Osmolality Calcium 7.3 L Magnesium Total Bilirubin 1.5 H Total Protein 6.2 L - Diagnostic Findings Chest x-ray: image reviewed CT scan - chest: image reviewed Assessment and Plan Assessment: Chest pain, somewhat atypical, currently being evaluated by the primary service. Shortness of breath and chest congestion, consistent with the patient's known history of COPD, and chronic hypoxemic respiratory failure. History of hypertension. History of diabetes mellitus and diabetic neuropathy. History of hyperlipidemia. History of chronic atrial fibrillation. History of gastroesophageal reflux disease. Morbid obesity. DJD. Ongoing tobacco use with nicotine addiction. Recent fall and left forearm fracture. Plan: Plan dated 03/03/2022. The patient's COPD is pretty much at baseline. The patient will get DuoNeb's 4 times a day and when necessary, as well as Symbicort 160/4.5, 2 puffs twice a day, and prednisone 40 mg a day. Additional recommendations and suggestions are forthcoming. The primary service is evaluating the patient's atrial fibr illation with RVR, and atypical chest pain. We will continue to follow make recommendations where appropriate. Prognosis is guarded. The patient is counseled about the importance of smoking cessation. Time with Patient: Greater than 30
[2022-03-03] MEDS ORDERED: methylPREDNISolone SOD SUCCI 40 MG/ML 1 ML VIAL IV SCH (16:00)
[2022-03-03 16:28] LABS: Glucose,Whole Blood 123 mg/dL (70-110)
[2022-03-03] MEDS: IPRATROPIUM-ALBUTEROL 3 ML NEB INHALATION PRN (17:12)
[2022-03-03 18:54] LABS: African American GFR (CKD) >90 (>60 ml/min/1.73 sqM); Anion Gap 7 mmol/L; Blood Urea Nitrogen 13 mg/dL (9-20); Calcium 7.6 mg/dL (8.4-10.2); Carbon Dioxide 38 mmol/L (22-30); Chloride 77 mmol/L (98-107); Glucose 134 mg/dL (74-99); Magnesium 2.3 mg/dL (1.6-2.3); Non-African American GFR(CKD) >90 (>60 ml/min/1.73 sqM); Sodium 122 mmol/L (137-145)
[2022-03-03 19:12] LABS: Potassium 2.1 mmol/L (3.5-5.1)
[2022-03-03] MEDS: SYMBICORT 160-4.5 MCG INHALER INHALATION SCH (20:13)
[2022-03-03] MEDS ORDERED: Potassium Replacement Protocol 1 EACH MISC MISCELLANE PRN (20:13)
[2022-03-03] MEDS: METOPROLOL TARTRATE 50 MG TAB PO SCH (20:41)
[2022-03-03] MEDS: FAMOTIDINE 20 MG/2 ML VIAL IV SCH (20:42)
[2022-03-03] MEDS: GABAPENTIN 100 MG CAP PO SCH (20:42)
[2022-03-03 20:47] LABS: Glucose,Whole Blood 145 mg/dL (70-110)
[2022-03-03 23:40] LABS: Glucose,Whole Blood 114 mg/dL (70-110)
[2022-03-04 01:39] LABS: African American GFR (CKD) >90 (>60 ml/min/1.73 sqM); Anion Gap 4 mmol/L; Blood Urea Nitrogen 9 mg/dL (9-20); Calcium 7.5 mg/dL (8.4-10.2); Carbon Dioxide 38 mmol/L (22-30); Chloride 82 mmol/L (98-107); Glucose 101 mg/dL (74-99); Non-African American GFR(CKD) >90 (>60 ml/min/1.73 sqM); Sodium 124 mmol/L (137-145)
[2022-03-04 01:59] LABS: Potassium 2.5 mmol/L (3.5-5.1)
[2022-03-04] MEDS: POTASSIUM CHLORIDE ER 20 MEQ TAB.ER PO SCH ×5 (02:10→17:24)
[2022-03-04] MEDS: GABAPENTIN 100 MG CAP PO SCH ×3 (04:44→20:39)
[2022-03-04] MEDS: HYDROcodone/APAP 7.5-325MG 1 EACH TAB PO PRN ×5 (05:56→22:20)
[2022-03-04 06:04] LABS: Glucose,Whole Blood 125 mg/dL (70-110)
[2022-03-04] MEDS: SYMBICORT 160-4.5 MCG INHALER INHALATION SCH ×2 (08:38→20:49)
[2022-03-04] MEDS: METOPROLOL TARTRATE 50 MG TAB PO SCH ×2 (09:34→20:39)
[2022-03-04] MEDS: APIXABAN 5 MG TAB PO SCH ×2 (09:34→20:39)
[2022-03-04] MEDS: amLODIPine 10 MG TAB PO SCH (09:34)
[2022-03-04] MEDS: predniSONE 10 MG TAB PO SCH (09:34)
[2022-03-04] MEDS: THEOPHYLLINE 24 HOUR 400 MG CAP.ER.24H PO SCH (09:34)
[2022-03-04] MEDS: SODIUM CHLORIDE 0.9% 1,000 ML IV SCH (09:35)
[2022-03-04] MEDS: FAMOTIDINE 20 MG TAB PO SCH ×2 (09:37→20:39)
[2022-03-04] MEDS: FAMOTIDINE 20 MG/2 ML VIAL IV SCH (09:50)
--- NOTE | 2022-03-04 09:56 | P.PN ---
Subjective Patient is seen in follow-up for electrolyte imbalance. Receiving normal saline. Potassium being replaced. Has been voiding. Oral intake fair. No vomiting or diarrhea. Vital signs are stable. General: Awake. No acute distress. HEENT: Head exam is unremarkable. LUNGS: Breath sounds decreased. HEART: Rate and Rhythm are regular. ABDOMEN: Soft, no distention. EXTREMITITES: No edema. Chronic changes noted. No drainage. Objective - Vital Signs Vital signs: Vital Signs Temp 97.5 F L 03/04/22 08:00 Pulse 96 03/04/22 08:00 Resp 15 03/04/22 08:00 BP 112/68 03/04/22 08:00 Pulse Ox 96 03/04/22 08:00 FiO2 Intake & Output 03/03/22 03/04/22 03/04/22 18:59 06:59 18:59 Intake Total 400 740 Output Total 450 650 Balance -450 -250 740 Weight 110 kg Intake: Intake, IV Titration 400 Amount Sodium Chloride 0.9% 1, 400 000 ml @ 50 mls/hr IV . Q20H [facility] Rx#:[id number] Oral 740 Output: Urine 450 650 Other: Voiding Method Urinal Urinal # Voids 2 - Labs CBC & Chem 7: 03/03/22 06:35 03/04/22 00:32 Labs: Abnormal Lab Results - Last 24 Hours (Table) 03/03/22 03/03/22 03/03/22 Range/Units 07:35 07:36 09:46 Sodium 121 L (137-145) mmol/L Potassium 1.7 L* (3.5-5.1) mmol/L Chloride 71 L* (98-107) mmol/L Carbon Dioxide 42 H* (22-30) mmol/L Creatinine 0.61 L (0.66-1.25) mg/dL Glucose 127 H (74-99) mg/dL POC Glucose (mg/dL) (70-110) mg/dL Osmolality 251 L (280-301) mosm/kg Calcium 7.2 L (8.4-10.2) mg/dL Magnesium 0.9 L* (1.6-2.3) mg/dL Total Bilirubin 1.7 H (0.2-1.3) mg/dL Total Protein 5.9 L (6.3-8.2) g/dL Ur Random Sodium 28 L (40-220) mmol/L 03/03/22 03/03/22 03/03/22 Range/Units 10:28 12:13 16:24 Sodium 122 L (137-145) mmol/L Potassium 1.9 L* (3.5-5.1) mmol/L Chloride 76 L (98-107) mmol/L Carbon Dioxide 37 H (22-30) mmol/L Creatinine 0.61 L (0.66-1.25) mg/dL Glucose 128 H (74-99) mg/dL POC Glucose (mg/dL) 157 H 123 H (70-110) mg/dL Osmolality (280-301) mosm/kg Calcium 7.3 L (8.4-10.2) mg/dL Magnesium (1.6-2.3) mg/dL Total Bilirubin 1.5 H (0.2-1.3) mg/dL Total Protein 6.2 L (6.3-8.2) g/dL Ur Random Sodium (40-220) mmol/L 03/03/22 03/03/22 03/03/22 Range/Units 17:59 20:45 23:38 Sodium 122 L (137-145) mmol/L Potassium 2.1 L* (3.5-5.1) mmol/L Chloride 77 L (98-107) mmol/L Carbon Dioxide 38 H (22-30) mmol/L Creatinine 0.51 L (0.66-1.25) mg/dL Glucose 134 H (74-99) mg/dL POC Glucose (mg/dL) 145 H 114 H (70-110) mg/dL Osmolality (280-301) mosm/kg Calcium 7.6 L (8.4-10.2) mg/dL Magnesium (1.6-2.3) mg/dL Total Bilirubin (0.2-1.3) mg/dL Total Protein (6.3-8.2) g/dL Ur Random Sodium (40-220) mmol/L 03/04/22 03/04/22 Range/Units 00:32 06:02 Sodium 124 L (137-145) mmol/L Potassium 2.5 L* (3.5-5.1) mmol/L Chloride 82 L (98-107) mmol/L Carbon Dioxide 38 H (22-30) mmol/L Creatinine 0.47 L (0.66-1.25) mg/dL Glucose 101 H (74-99) mg/dL POC Glucose (mg/dL) 125 H (70-110) mg/dL Osmolality (280-301) mosm/kg Calcium 7.5 L (8.4-10.2) mg/dL Magnesium (1.6-2.3) mg/dL Total Bilirubin (0.2-1.3) mg/dL Total Protein (6.3-8.2) g/dL Ur Random Sodium (40-220) mmol/L Assessment and Plan Plan: Assessment: 1. Hyponatremia secondary to overdiuresis. Patient was taking Lasix as well as metolazone outpatient. Sodium level 121 on admission - 124 last night. Urine sodium 28 and urine osmolality 254. 2. Hypokalemia secondary to diuretics and hypomagnesemia. Being replaced. 3. Hypomagnesemia secondary to diuretics. No diarrhea. Replaced. Better. 4. Metabolic alkalosis. This is mostly compensatory for underlying respiratory acidosis as well as component of contraction alkalosis from diuretics. Better. 5. Hypocalcemia secondary to diuretics. Improved. 6. COPD exacerbation. Plan: Hold all diuretics. Maintain normal saline at 50 mL an hour. Follow-up TSH. Follow-up morning labs. Continue to replace potassium and magnesium as needed.
[2022-03-04 10:52] LABS: Anisocytosis Slight; Basophils # (A) 0.1 k/uL (0-0.2); Basophils % (A) 1 %; Eosinophils # (A) 0.3 k/uL (0-0.7); Eosinophils % (A) 3 %; HCT 36.3 % (39.0-53.0); HGB 12.3 gm/dL (13.0-17.5); Lymphocytes # (A) 1.6 k/uL (1.0-4.8); Lymphocytes % (A) 15 %; MCH 31.2 pg (25.0-35.0); MCHC 33.9 g/dL (31.0-37.0); MCV 91.8 fL (80.0-100.0); Mean Platelet Volume 6.8; Monocytes # (A) 0.8 k/uL (0-1.0); Monocytes % (A) 7 %; Neutrophils # (A) 7.6 k/uL (1.3-7.7); Neutrophils % (A) 72 %; Platelet Count 319 k/uL (150-450); RBC 3.96 m/uL (4.30-5.90); RDW 16.7 % (11.5-15.5); WBC 10.6 k/uL (3.8-10.6)
--- NOTE | 2022-03-04 10:54 | XR ---
EXAMINATION TYPE: XR wrist complete LT DATE OF EXAM: 03/04/2022 COMPARISON: X-ray dated 02/18/2022 INDICATION: Follow-up fracture TECHNIQUE: 3 views of the left wrist FINDINGS: Again noted is the comminuted fracture involving the distal radial metaphysis. There is interval more lateral and dorsal displacement of the distal fracture fragment for up to 16mm, with significant mal alignment. Osteopenia. Marked degenerative changes of the first carpometacarpal articulation. IMPRESSION: Progressive displacement of the distal fracture fragment of the known distal radial fracture as descr ibed above. Recommend orthopedic consultation.
--- NOTE | 2022-03-04 10:57 | XR ---
EXAMINATION TYPE: XR foot complete LT DATE OF EXAM: 03/04/2022 COMPARISON: NONE INDICATION: Pain TECHNIQUE: 3 views of the left foot. FINDINGS: Diffuse osteopenia. Osteophytosis of the first metatarsal head. No definite acute fracture line ident ified. Soft tissue swelling and possible ulcer of the dorsum of the foot distally. No soft tissue gas. Tiny inferior calcaneal spur. IMPRESSION: No definite acute fracture or dislocation. Soft tissue swelling of the dorsum of the foot as describe d above.
[2022-03-04 11:03] LABS: African American GFR (CKD) >90 (>60 ml/min/1.73 sqM); Anion Gap 8 mmol/L; Blood Urea Nitrogen 9 mg/dL (9-20); Calcium 7.8 mg/dL (8.4-10.2); Carbon Dioxide 34 mmol/L (22-30); Chloride 84 mmol/L (98-107); Glucose 113 mg/dL (74-99); Magnesium 2.1 mg/dL (1.6-2.3); Non-African American GFR(CKD) >90 (>60 ml/min/1.73 sqM); Sodium 126 mmol/L (137-145)
[2022-03-04 12:05] LABS: Glucose,Whole Blood 203 mg/dL (70-110)
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
[2022-03-04] MEDS ORDERED: Potassium Replacement Protocol 1 EACH MISC MISCELLANE PRN (13:02)
--- NOTE | 2022-03-04 13:11 | P.PN ---
Subjective Progress Note Date: 03/04/22 Principal diagnosis: Chest pain. Pulmonary consultation dated 03/03/2022. 71-year-old male well-known to our service. The patient has a history of COPD, chronic hypoxemic respiratory failure, atrial fibrillation, diabetes, and obesity. The patient was brought in to the emergency room on March 03, from the correction, because of chest pain and shortness of breath, and chest congestion. The patient's pain according the ER physician was described as pleuritic in nature. The patient is not having chest pain we see him today. He seen in the emergency room, room 25. The patient recently fell at the correction, and suffered a left arm fracture. The patient is hoping to return to his own home, after discharge from the hospital. He apparently was initially a hospice patient, but apparently has decided against being a hospice patient. Currently, white count is 15.2, hemoglobin 12.4, hematocrit 35.6, platelet count 279,000. PT/INR and PTT are all normal. Sodium 122, potassium 1.9, chloride 76, CO2 37, anion gap is 9, BUN 18, creatinine 0.61. The patient's calcium is 7.3. Albumin is 3.7. EKG was consistent with atrial fibrillation with rapid ventricular response of about 110 beats a minute. The patient's chest x-ray shows some right upper lobe atelectasis and some mild cardiomegaly. CAT scan is reviewed. The findings are suggestive of COPD, saber sheath trachea, and scattered atelectasis and some ground glass particularly she is consistent with mild fibrotic changes. No large central emboli are seen. Progress note dated 03/04/2022. This is a 71-year-old male well-known to her service. He was seen yesterday in consultation. Please see my note above. The patient's primary complaint was chest pain. He's on 2 L nasal cannula. He is getting saline at 50 mL an hour. He apparently fell and broke his left forearm wrist, and had a cast on a yesterday, we saw him in the emergency room. For some reason, may be because he wasn't getting his pain medication, he got angry and rib cast off. He's been complaining all morning about his pain medications. White count 10.6, hemoglobin 12.3, hematocrit 36.3, white count normal. Sodium 126, potassium 3, chloride 84, CO2 34, BUN 9, with creatinine 0.50. X-ray of the forearm shows progressive displacement of the distal fracture fragment of the known distal radial fracture. The foot x-ray was negative. Objective - Vital Signs Vital signs: Vital Signs Temp 97.5 F L 03/04/22 11:38 Pulse 76 03/04/22 11:38 Resp 16 03/04/22 11:38 BP 128/74 03/04/22 11:38 Pulse Ox 98 03/04/22 11:38 FiO2 Intake & Output 03/03/22 03/04/22 03/04/22 18:59 06:59 18:59 Intake Total 400 740 Output Total 450 650 Balance -450 -250 740 Weight 110 kg Intake: Intake, IV Titration 400 Amount Sodium Chloride 0.9% 1, 400 000 ml @ 50 mls/hr IV . Q20H [facility] Rx#:[id number] Oral 740 Output: Urine 450 650 Other: Voiding Method Urinal Urinal Urinal # Voids 2 - Exam No acute distress, oriented 3. Currently on 2 L nasal cannula. No conversational dyspnea or use of accessory muscles. HEENT examination is grossly unremarkable. Neck supple. Full range of motion. No adenopathy thyromegaly or neck vein distention. Cardiovascular examination reveals regular rhythm rate. S1-S2 normal. No S3 or S4. No discernible murmur noted. Heart rate 76 bpm. Lungs reveal scattered bilateral rhonchi and very mild expiratory wheezes. No crackles. Breath sounds equal bilaterally. 2 L saturation is 98 %. Abdomen soft bowel sounds are heard. No masses or tenderness. Extremities reveal 1+ edema, and some chronic venous stasis changes of the lower extremities. No cyanosis or clubbing. Skin is without rash or lesion. Neurologic examination is brief but nonfocal. - Labs CBC & Chem 7: 03/04/22 10:11 03/04/22 10:11 Labs: Abnormal Lab Results - Last 24 Hours (Table) 03/03/22 03/03/22 03/03/22 Range/Units 09:46 10:28 16:24 RBC (4.30-5.90) m/uL Hgb (13.0-17.5) gm/dL Hct (39.0-53.0) % RDW (11.5-15.5) % Sodium 122 L (137-145) mmol/L Potassium 1.9 L* (3.5-5.1) mmol/L Chloride 76 L (98-107) mmol/L Carbon Dioxide 37 H (22-30) mmol/L Creatinine 0.61 L (0.66-1.25) mg/dL Glucose 128 H (74-99) mg/dL POC Glucose (mg/dL) 123 H (70-110) mg/dL Calcium 7.3 L (8.4-10.2) mg/dL Total Bilirubin 1.5 H (0.2-1.3) mg/dL Total Protein 6.2 L (6.3-8.2) g/dL Ur Random Sodium 28 L (40-220) mmol/L 03/03/22 03/03/22 03/03/22 Range/Units 17:59 20:45 23:38 RBC (4.30-5.90) m/uL Hgb (13.0-17.5) gm/dL Hct (39.0-53.0) % RDW (11.5-15.5) % Sodium 122 L (137-145) mmol/L Potassium 2.1 L* (3.5-5.1) mmol/L Chloride 77 L (98-107) mmol/L Carbon Dioxide 38 H (22-30) mmol/L Creatinine 0.51 L (0.66-1.25) mg/dL Glucose 134 H (74-99) mg/dL POC Glucose (mg/dL) 145 H 114 H (70-110) mg/dL Calcium 7.6 L (8.4-10.2) mg/dL Total Bilirubin (0.2-1.3) mg/dL Total Protein (6.3-8.2) g/dL Ur Random Sodium (40-220) mmol/L 03/04/22 03/04/22 03/04/22 Range/Units 00:32 06:02 10:11 RBC 3.96 L (4.30-5.90) m/uL Hgb 12.3 L (13.0-17.5) gm/dL Hct 36.3 L (39.0-53.0) % RDW 16.7 H (11.5-15.5) % Sodium 124 L (137-145) mmol/L Potassium 2.5 L* (3.5-5.1) mmol/L Chloride 82 L (98-107) mmol/L Carbon Dioxide 38 H (22-30) mmol/L Creatinine 0.47 L (0.66-1.25) mg/dL Glucose 101 H (74-99) mg/dL POC Glucose (mg/dL) 125 H (70-110) mg/dL Calcium 7.5 L (8.4-10.2) mg/dL Total Bilirubin (0.2-1.3) mg/dL Total Protein (6.3-8.2) g/dL Ur Random Sodium (40-220) mmol/L 03/04/22 03/04/22 Range/Units 10:11 12:00 RBC (4.30-5.90) m/uL Hgb (13.0-17.5) gm/dL Hct (39.0-53.0) % RDW (11.5-15.5) % Sodium 126 L (137-145) mmol/L Potassium 3.0 L (3.5-5.1) mmol/L Chloride 84 L (98-107) mmol/L Carbon Dioxide 34 H (22-30) mmol/L Creatinine 0.50 L (0.66-1.25) mg/dL Glucose 113 H (74-99) mg/dL POC Glucose (mg/dL) 203 H (70-110) mg/dL Calcium 7.8 L (8.4-10.2) mg/dL Total Bilirubin (0.2-1.3) mg/dL Total Protein (6.3-8.2) g/dL Ur Random Sodium (40-220) mmol/L Assessment and Plan Assessment: Chest pain, somewhat atypical, currently being evaluated by the primary service. Shortness of breath and chest congestion, consistent with the patient's known history of COPD, and chronic hypoxemic respiratory failure. History of hypertension. History of diabetes mellitus and diabetic neuropathy. History of hyperlipidemia. History of chronic atrial fibrillation. History of gastroesophageal reflux disease. Morbid obesity. DJD. Ongoing tobacco use with nicotine addiction. Recent fall and left forearm fracture. Plan: Plan dated 03/03/2022. The patient's COPD is pretty much at baseline. The patient will get DuoNeb's 4 times a day and when necessary, as well as Symbicort 160/4.5, 2 puffs twice a day, and prednisone 40 mg a day. Additional recommendations and suggestions are forthcoming. The primary service is evaluating the patient's atrial fibrillation with RVR, and atypical chest pain. We will continue to follow make recommendations where appropriate. Prognosis is guarded. The patient is counseled about the importance of smoking cessation. Progress note dated 03/04/2022. The patient is currently on Symbicort, prednisone, theophylline, and duo nebs. His respiratory status in my opinion is relatively stable. We will follow the patient, and make recommendations where appropriate. Prognosis is guarded. The patient was very angry today about his pain medication, so much so, that he ripped his cast off. Time with Patient: Less than 30
[2022-03-04] MEDS: LORazepam 0.5 MG TAB PO PRN ×2 (13:37→17:40)
[2022-03-04] MEDS: IPRATROPIUM-ALBUTEROL 3 ML NEB INHALATION PRN (16:16)
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
[2022-03-04 16:50] LABS: Glucose,Whole Blood 163 mg/dL (70-110)
[2022-03-04] MEDS ORDERED: MORPHINE SULFATE 2 MG/ML SYRINGE IVP PRN (19:29)
--- NOTE | 2022-03-04 19:45 | P.PN ---
Subjective This is a pleasant 71 years old male with past medical history of Atrial Fibrillation, on liquids, COPD, Diabetes Mellitus, GERD/Reflux, Hyperlipidemia, Hypertension, Osteoarthritis, home oxygen prn, bronchitis, diabetic neuropathy bilateral feet/L hand, chronic pain back,/bilateral hips/knees/elbows and shoulders, L heel pain, FALLS, cataracts. from extended care facility. He presents because of chest pain or dyspnea of 1- 2 days duration, chest pain was severe to the left side, nonradiating, but now is gone. No dizziness or lightheadedness. Patient also has been complaining of from dyspnea cough with sticky phlegm for the last 2 days. 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 Jones and he is on 2 L of her significant is AT HOME. HE STATES HE QUIT SMOKING ABOUT A MONTH AGO, USED TO SMOKE 2 PACKS PER DAY. He denies abdominal pain or vomiting or diarrhea. No urinary complaints. No fever. Patient was found to be severely hypokalemic and hypernatremic most likely secondary to diuretic. Lasix was listed on of his home medication. Also there is mention of chlorthalidone. Patient is tachycardic 112, rest of vitals are stable and patient is afebrile Labs showing severe carpal natremia 121 and hypokalemia 1.7. Carbon dioxide elevated 42, creatinine normal 0.6. Liver enzymes are not elevated. Bilirubin is slightly elevated at 1.7. Glucose is 127. CBC showed leukocytosis of 15.2. He has chronic leukocytosis Hemoglobin is 12.4. Platelet count 279. Troponin is -0.02 Chest CTA.: The filling defects within the bilateral lower lobe distal subsegmental pulmonary arteries are probably artifact versus nonocclusive pulmonary emboli. No major central pulmonary embolism. No signs of cardiac strain. 03/04/2022 Patient awake and alert, sitting in chair looks upset. He is not in respiratory distress and breathing quietly. He denies chest pain or significant dyspnea today. No coughing. No abdominal pain or vomiting. No diarrhea or urinary complaints. Patient complaining from pain in his left wrist area where he has a hard cast, also in the left foot where there is soft tissue swelling and superficial ulcer, looks like hematoma. No surrounding cellulitis or erythema. He is hemodynamically stable. Labs showing improvement with sodium up to 126, potassium up to 3.0, CBC normal WBC. Left foot x-ray showing no fracture or dislocation. Soft tissue swelling on the dorsum of the foot with ulcer. Left foot soft tissue swelling with ulcer, most likely hematoma Orthopedic team were consulted as well as Wound team consult. Orthopedic team recommended to continue with nonoperative treatment based upon patient wishes, they recommended to continue with heart cast and follow-up outpatient with Dr. ely [employer] Reports Developer evaluated the patient and acute coronary syndrome has been ruled out area echocardiogram is recommended Review of systems CONSTITUTIONAL: No fever, no malaise, no fatigue. HEENT: No recent visual problems or hearing problems. Denied any sore throat. CARDIOVASCULAR: No orthopnea, PND, no palpitations, no syncope. PULMONARY: No shortness of breath, no cough, no hemoptysis. GASTROINTESTINAL: No diarrhea, no nausea, no vomiting, no abdominal pain. Normoactive bowel sounds. NEUROLOGICAL: No headaches, no weakness, no numbness. Active Medications Generic Name Dose Route Start Last Admin Trade Name Freq PRN Reason Stop Dose Admin Hydrocodone Bitart/Acetaminophen 1 each 03/03/22 15:38 03/04/22 17:20 Hydrocodone/Apap 7.5-325mg 1 Each Tab PO 1 each Q4H PRN Administration Pain Albuterol/Ipratropium 3 ml 03/03/22 10:33 03/04/22 16:16 Ipratropium-Albuterol 3 Ml Neb INHALATION 3 ml RT-QID PRN Administration Shortness Of Breath Or Wheezing Amlodipine Besylate 10 mg 03/04/22 09:00 03/04/22 09:34 Amlodipine 10 Mg Tab PO 10 mg DAILY ALESSIO Administration Apixaban 5 mg 03/03/22 09:45 03/04/22 09:34 Apixaban 5 Mg Tab PO 5 mg BID ALESSIO Administration Protocol Budesonide/Formoterol Fumarate 2 puff 03/03/22 20:00 03/04/22 08:38 Symbicort 160-4.5 Mcg Inhaler INHALATION 2 puff RT-BID ALESSIO Administration Famotidine 20 mg 03/04/22 09:15 03/04/22 09:37 Famotidine 20 Mg Tab PO 20 mg BID ALESSIO Administration Gabapentin 100 mg 03/03/22 21:00 03/04/22 13:35 Gabapentin 100 Mg Cap PO 100 mg TID@0500,1300,2100 ALESSIO Administration Sodium Chloride 1,000 mls @ 50 mls/hr 03/03/22 12:00 03/04/22 09:35 Saline 0.9% IV 50 mls/hr .Q20H ALESSIO Administration Lorazepam 0.5 mg 03/03/22 15:38 03/04/22 17:40 Lorazepam 0.5 Mg Tab PO 0.5 mg Q4H PRN Administration Anxiety Metoprolol Tartrate 50 mg 03/03/22 21:00 03/04/22 09:34 Metoprolol Tartrate 50 Mg Tab PO 50 mg BID ALESSIO Administration Miscellaneous Information 1 each 03/03/22 20:13 Potassium Replacement Protocol 1 Each Misc MISCELLANE DAILY PRN Per Protocol Protocol Miscellaneous Information 1 each 03/04/22 13:02 Potassium Replacement Protocol 1 Each Misc MISCELLANE DAILY PRN Per Protocol Protocol Morphine Sulfate 2 mg 03/04/22 19:29 Morphine Sulfate 2 Mg/Ml Syringe IVP Q4HR PRN Pain/Discomfort Naloxone HCl 0.2 mg 03/03/22 09:31 Naloxone 0.4 Mg/Ml 1 Ml Vial IV Q2M PRN Opioid Reversal Prednisone 30 mg 03/04/22 09:00 03/04/22 09:34 Prednisone 10 Mg Tab PO 30 mg DAILY ALESSIO Administration Theophylline 400 mg 03/04/22 09:00 03/04/22 09:34 Theophylline 24 Hour 400 Mg Cap.Er.24h PO 400 mg DAILY ALESSIO Administration Objective - Vital Signs Vital signs: Vital Signs Temp 97.5 F L 03/04/22 08:00 Pulse 96 03/04/22 08:00 Resp 15 03/04/22 08:00 BP 112/68 03/04/22 08:00 Pulse Ox 96 03/04/22 08:00 FiO2 Intake & Output 03/03/22 03/04/22 03/04/22 18:59 06:59 18:59 Intake Total 400 740 Output Total 450 650 Balance -450 -250 740 Weight 110 kg Intake: Intake, IV Titration 400 Amount Sodium Chloride 0.9% 1, 400 000 ml @ 50 mls/hr IV . Q20H ALESSIO Rx#:[id number] Oral 740 Output: Urine 450 650 Other: Voiding Method Urinal Urinal # Voids 2 - Exam -GENERAL: The patient is alert and oriented x3, not in any acute distress. O bese HEENT: Pupils are round and equally reacting to light. EOMI. No scleral icterus. No conjunctival pallor. Normocephalic, atraumatic. No pharyngeal erythema. No thyromegaly. CARDIOVASCULAR: S1 and S2 present. No murmurs, rubs, or gallops. PULMONARY: Chest is clear to auscultation, no wheezing or crackles. ABDOMEN: Soft, nontender, nondistended, normoactive bowel sounds. No palpable organomegaly. MUSCULOSKELETAL: No joint swelling or deformity. -EXTREMITIES: No cyanosis, clubbing, or pedal edema. Left forearm hard cast in place. Patient can move his hand and drape. Left foot soft tissue swelling on the dorsum, suspicious hematoma with superficial ulceration, no surrounding cellulitis NEUROLOGICAL: Gross neurological examination did not reveal any focal deficits. SKIN: No rashes. no petechiae. - Labs CBC & Chem 7: 03/04/22 10:11 03/04/22 10:11 Labs: Abnormal Lab Results - Last 24 Hours (Table) 03/03/22 03/03/22 03/03/22 Range/Units 07:35 09:46 10:28 RBC (4.30-5.90) m/uL Hgb (13.0-17.5) gm/dL Hct (39.0-53.0) % RDW (11.5-15.5) % Sodium 122 L (137-145) mmol/L Potassium 1.9 L* (3.5-5.1) mmol/L Chloride 76 L (98-107) mmol/L Carbon Dioxide 37 H (22-30) mmol/L Creatinine 0.61 L (0.66-1.25) mg/dL Glucose 128 H (74-99) mg/dL POC Glucose (mg/dL) (70-110) mg/dL Osmolality 251 L (280-301) mosm/kg Calcium 7.3 L (8.4-10.2) mg/dL Total Bilirubin 1.5 H (0.2-1.3) mg/dL Total Protein 6.2 L (6.3-8.2) g/dL Ur Random Sodium 28 L (40-220) mmol/L 03/03/22 03/03/22 03/03/22 Range/Units 12:13 16:24 17:59 RBC (4.30-5.90) m/uL Hgb (13.0-17.5) gm/dL Hct (39.0-53.0) % RDW (11.5-15.5) % Sodium 122 L (137-145) mmol/L Potassium 2.1 L* (3.5-5.1) mmol/L Chloride 77 L (98-107) mmol/L Carbon Dioxide 38 H (22-30) mmol/L Creatinine 0.51 L (0.66-1.25) mg/dL Glucose 134 H (74-99) mg/dL POC Glucose (mg/dL) 157 H 123 H (70-110) mg/dL Osmolality (280-301) mosm/kg Calcium 7.6 L (8.4-10.2) mg/dL Total Bilirubin (0.2-1.3) mg/dL Total Protein (6.3-8.2) g/dL Ur Random Sodium (40-220) mmol/L 03/03/22 03/03/22 03/04/22 Range/Units 20:45 23:38 00:32 RBC (4.30-5.90) m/uL Hgb (13.0-17.5) gm/dL Hct (39.0-53.0) % RDW (11.5-15.5) % Sodium 124 L (137-145) mmol/L Potassium 2.5 L* (3.5-5.1) mmol/L Chloride 82 L (98-107) mmol/L Carbon Dioxide 38 H (22-30) mmol/L Creatinine 0.47 L (0.66-1.25) mg/dL Glucose 101 H (74-99) mg/dL POC Glucose (mg/dL) 145 H 114 H (70-110) mg/dL Osmolality (280-301) mosm/kg Calcium 7.5 L (8.4-10.2) mg/dL Total Bilirubin (0.2-1.3) mg/dL Total Protein (6.3-8.2) g/dL Ur Random Sodium (40-220) mmol/L 03/04/22 03/04/22 Range/Units 06:02 10:11 RBC 3.96 L (4.30-5.90) m/uL Hgb 12.3 L (13.0-17.5) gm/dL Hct 36.3 L (39.0-53.0) % RDW 16.7 H (11.5-15.5) % Sodium (137-145) mmol/L Potassium (3.5-5.1) mmol/L Chloride (98-107) mmol/L Carbon Dioxide (22-30) mmol/L Creatinine (0.66-1.25) mg/dL Glucose (74-99) mg/dL POC Glucose (mg/dL) 125 H (70-110) mg/dL Osmolality (280-301) mosm/kg Calcium (8.4-10.2) mg/dL Total Bilirubin (0.2-1.3) mg/dL Total Protein (6.3-8.2) g/dL Ur Random Sodium (40-220) mmol/L Assessment and Plan Assessment: -Acute hyponatremia and acute hypokalemia most likely secondary to diuretics -Left wrist fracture with persistent displacement of the distal radius even after her to cast placement, patient declined surgical treatment and wants to continue with conservative management per orthopedic team -Mild Acute COPD exacerbation -Chest pain, secondary COPD. Resolved -Chronic hypoxemic respiratory failure, ventilator oxygen via nasal cannula -Chronic atrial fibrillation on liquids -Hypertension -Diabetes mellitus -Hyperlipidemia -History of GERD -History of osteoarthritis -Diabetic neuropathy -Chronic back pain -Obesity with BMI of 32.9 Plan: This is A pleasant 71 years old male who presents because of chest pain Continue to monitor electrolytes, continue with normal saline at 50 mL per hour. Continue holding Lasix and metolazone. The first team on the case Orthopedic team input is appreciated, recommended conservative treatment with hard cast, patient declined surgery. Follow up outpatient in 2-3 weeks 1 team consult for left foot wound Pulmonary consult and cardiology consult on the case Labs and medication were reviewed.. Continue same treatment. Continue with symptomatic treatment. Resume home medication. Monitor lytes and vitals. DVT and GI prophylaxis. Further recommendations depends on the clinical course of the patient DVT prophylaxis: Eliquis GI Prophylaxis: Pepcid PT/OT: Recommended home health care Prognosis is guarded
[2022-03-04 20:42] LABS: Glucose,Whole Blood 147 mg/dL (70-110)
[2022-03-05 03:40] VITALS: RESP 18
[2022-03-05] MEDS: SODIUM CHLORIDE 0.9% 1,000 ML IV SCH (04:46)
[2022-03-05] MEDS: GABAPENTIN 100 MG CAP PO SCH ×2 (04:47→12:19)
[2022-03-05] MEDS: HYDROcodone/APAP 7.5-325MG 1 EACH TAB PO PRN ×3 (05:14→14:26)
[2022-03-05 06:22] LABS: Glucose,Whole Blood 108 mg/dL (70-110)
[2022-03-05] MEDS: IPRATROPIUM-ALBUTEROL 3 ML NEB INHALATION PRN ×2 (07:35→15:24)
[2022-03-05] MEDS: SYMBICORT 160-4.5 MCG INHALER INHALATION SCH ×2 (07:35→20:01)
--- NOTE | 2022-03-05 08:43 | P.PN ---
Subjective Patient is seen in follow-up for electrolyte imbalance. Receiving normal saline. Potassium and magnesium have been replaced. Has been voiding. Urine output documented is 1.9 L. Oral intake fair. No vomiting or diarrhea. Vital signs are stable. General: Awake. No acute distress. HEENT: Head exam is unremarkable. LUNGS: Breath sounds decreased. HEART: Rate and Rhythm are regular. ABDOMEN: Soft, no distention. EXTREMITITES: No edema. Chronic changes noted. No drainage. Objective - Vital Signs Vital signs: Vital Signs Temp 97.5 F L 03/05/22 03:39 Pulse 101 H 03/05/22 07:47 Resp 18 03/05/22 03:39 BP 129/83 03/05/22 03:39 Pulse Ox 96 03/05/22 03:39 FiO2 Intake & Output 03/04/22 03/05/22 03/05/22 18:59 06:59 18:59 Intake Total 1820 400 Output Total 675 1225 Balance 1145 -825 Intake: Intake, IV Titration 400 Amount Sodium Chloride 0.9% 1, 400 000 ml @ 50 mls/hr IV . Q20H [facility] Rx#:[id number] Oral 1820 Output: Urine 675 1225 Other: Voiding Method Urinal Urinal # Voids 1 - Labs CBC & Chem 7: 03/04/22 10:11 03/04/22 10:11 Labs: Abnormal Lab Results - Last 24 Hours (Table) 03/04/22 03/04/22 03/04/22 Range/Units 10:11 10:11 12:00 RBC 3.96 L (4.30-5.90) m/uL Hgb 12.3 L (13.0-17.5) gm/dL Hct 36.3 L (39.0-53.0) % RDW 16.7 H (11.5-15.5) % Sodium 126 L (137-145) mmol/L Potassium 3.0 L (3.5-5.1) mmol/L Chloride 84 L (98-107) mmol/L Carbon Dioxide 34 H (22-30) mmol/L Creatinine 0.50 L (0.66-1.25) mg/dL Glucose 113 H (74-99) mg/dL POC Glucose (mg/dL) 203 H (70-110) mg/dL Calcium 7.8 L (8.4-10.2) mg/dL 03/04/22 03/04/22 Range/Units 16:39 20:40 RBC (4.30-5.90) m/uL Hgb (13.0-17.5) gm/dL Hct (39.0-53.0) % RDW (11.5-15.5) % Sodium (137-145) mmol/L Potassium (3.5-5.1) mmol/L Chloride (98-107) mmol/L Carbon Dioxide (22-30) mmol/L Creatinine (0.66-1.25) mg/dL Glucose (74-99) mg/dL POC Glucose (mg/dL) 163 H 147 H (70-110) mg/dL Calcium (8.4-10.2) mg/dL Assessment and Plan Plan: Assessment: 1. Hyponatremia secondary to overdiuresis. Patient was taking Lasix as well as metolazone outpatient. Sodium level 121 on admission - 126 yesterday. Urine sodium 28 and urine osmolality 254. TSH normal. 2. Hypokalemia secondary to diuretics and hypomagnesemia. Replaced. 3. Hypomagnesemia secondary to diuretics. No diarrhea. Replaced. Better. 4. Metabolic alkalosis. This is mostly compensatory for underlying respiratory acidosis as well as component of contraction alkalosis from diuretics. Better. 5. Hypocalcemia secondary to diuretics. Improved. 6. COPD exacerbation. Plan: Continue to hold all diuretics. Maintain normal saline at 50 mL an hour. Follow-up morning labs. Continue to replace potassium and magnesium as needed.
[2022-03-05 08:59] VITALS: TEMP 98.1
[2022-03-05] MEDS: APIXABAN 5 MG TAB PO SCH (09:00)
[2022-03-05] MEDS: amLODIPine 10 MG TAB PO SCH (09:00)
[2022-03-05] MEDS: FAMOTIDINE 20 MG TAB PO SCH (09:00)
[2022-03-05] MEDS: THEOPHYLLINE 24 HOUR 400 MG CAP.ER.24H PO SCH (09:01)
[2022-03-05] MEDS: METOPROLOL TARTRATE 50 MG TAB PO SCH (09:01)
[2022-03-05] MEDS: predniSONE 10 MG TAB PO SCH (09:01)
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
--- NOTE | 2022-03-05 09:46 | CA ---
Transthoracic Echo Report Name: Olegario Villela Age: 71 Gender: M : 1950 Exam Date: 03/04/2022 13:17 Exam Location: [place] [facility] Ht (in): 72 Wt (lb): 242 Ordering Physician: Ameena Bradshaw Attending/Referring Phys: [id number], Leeann Honing Machine Try Out Setter Janet Tijerina, MARGARETTE Procedure CPT: Indications: LV function Cardiac Hx: Technical Quality: Fair Contrast 1: Total Dose (mL): Contrast 2: Total Dose (mL): MEASUREMENTS (Male / Female) Normal Values 2D ECHO LV Diastolic Diameter PLAX 4.8 cm 4.2 - 5.9 / 3.9 - 5.3 cm LV Systolic Diameter PLAX 3.6 cm IVS Diastolic Thickness 1.3 cm 0.6 - 1.0 / 0.6 - 0.9 cm LVPW Diastolic Thickness 1.3 cm 0.6 - 1.0 / 0.6 - 0.9 cm LV Relative Wall Thickness 0.5 RV Internal Dim ED PLAX 3.2 cm LA Systolic Diameter LX 4.3 cm 3.0 - 4.0 / 2.7 - 3.8 cm M-MODE Aortic Root Diameter MM 3.5 cm MV E Point Septal Separation 0.4 cm AV Cusp Separation MM 1.9 cm DOPPLER AV Peak Velocity 100.4 cm/s AV Peak Gradient 4.0 mmHg MV Area PHT 4.3 cm??? MV Deceleration Time 148.5 ms TR Peak Velocity 264.8 cm/s TR Peak Gradient 28.0 mmHg Right Ventricular Systolic Press 32.6 mmHg FINDINGS Left Ventricle Left ventricular ejection fraction is estimated at 40-45 %. Left ventricular cavity size normal. Mild concentric left ventricular hypertrophy. Right Ventricle Normal right ventricular size and function. Borderline RVSP Right Atrium Normal right atrial size. Left Atrium Mild left atrial dilatation. Mitral Valve Mitral annular calcification. No mitral stenosis, regurgitation or prolapse. Aortic Valve Trileaflet aortic valve. No aortic valve stenosis or regurgitation. Tricuspid Valve Mild tricuspid regurgitation. Pulmonic Valve Structurally normal pulmonic valve. Pericardium Normal pericardium. No pericardial effusion. Aorta Normal size aortic root and proximal ascending aorta. CONCLUSIONS Reduced LV systolic function ejection fraction of about 40% with anterior/anteroseptal wall hypokinesis Previewed by: Dr. Phong Shaikh MD (Electronically Signed) Final Date: 05 March 2022 09:45
[2022-03-05] MEDS: LORazepam 0.5 MG TAB PO PRN ×2 (09:50→17:25)
[2022-03-05 10:48] LABS: African American GFR (CKD) >90 (>60 ml/min/1.73 sqM); Anion Gap 8 mmol/L; Blood Urea Nitrogen 7 mg/dL (9-20); Calcium 8.1 mg/dL (8.4-10.2); Carbon Dioxide 33 mmol/L (22-30); Chloride 85 mmol/L (98-107); Glucose 180 mg/dL (74-99); Magnesium 1.5 mg/dL (1.6-2.3); Non-African American GFR(CKD) >90 (>60 ml/min/1.73 sqM); Sodium 126 mmol/L (137-145)
[2022-03-05 11:06] LABS: Potassium 2.6 mmol/L (3.5-5.1)
[2022-03-05] MEDS: POTASSIUM CHLORIDE ER 20 MEQ TAB.ER PO SCH ×3 (11:16→14:16)
--- NOTE | 2022-03-05 12:11 | P.PN ---
Subjective Progress Note Date: 03/05/22 Principal diagnosis: Chest pain. Pulmonary consultation dated 03/03/2022. 71-year-old male well-known to our service. The patient has a history of COPD, chronic hypoxemic respiratory failure, atrial fibrillation, diabetes, and obesity. The patient was brought in to the emergency room on March 03, from the retirement, because of chest pain and shortness of breath, and chest congestion. The patient's pain according the ER physician was described as pleuritic in nature. The patient is not having chest pain we see him today. He seen in the emergency room, room 25. The patient recently fell at the retirement, and suffered a left arm fracture. The patient is hoping to return to his own home, after discharge from the hospital. He apparently was initially a hospice patient, but apparently has decided against being a hospice patient. Currently, white count is 15.2, hemoglobin 12.4, hematocrit 35.6, platelet count 279,000. PT/INR and PTT are all normal. Sodium 122, potassium 1.9, chloride 76, CO2 37, anion gap is 9, BUN 18, creatinine 0.61. The patient's calcium is 7.3. Albumin is 3.7. EKG was consistent with atrial fibrillation with rapid ventricular response of about 110 beats a minute. The patient's chest x-ray shows some right upper lobe atelectasis and some mild cardiomegaly. CAT scan is reviewed. The findings are suggestive of COPD, saber sheath trachea, and scattered atelectasis and some ground glass particularly she is consistent with mild fibrotic changes. No large central emboli are seen. Progress note dated 03/04/2022. This is a 71-year-old male well-known to her service. He was seen yesterday in consultation. Please see my note above. The patient's primary complaint was chest pain. He's on 2 L nasal cannula. He is getting saline at 50 mL an hour. He apparently fell and broke his left forearm wrist, and had a cast on a yesterday, we saw him in the emergency room. For some reason, may be because he wasn't getting his pain medication, he got angry and rib cast off. He's been complaining all morning about his pain medications. White count 10.6, hemoglobin 12.3, hematocrit 36.3, white count normal. Sodium 126, potassium 3, chloride 84, CO2 34, BUN 9, with creatinine 0.50. X-ray of the forearm shows progressive displacement of the distal fracture fragment of the known distal radial fracture. The foot x-ray was negative. Progress note dated 03/05/2022. 71-year-old male, seen again in room 373. The patient remains on 2 L nasal cannula. The patient ripped off his left forearm cast yesterday, but, it was replaced. Clinically he is doing well, and he mentions that he would like to be discharged. He states he ripped off his cast, because nobody was getting him his pain medication. Sodium 126, potassium 2.6, chloride 85, CO2 33, BUN 7, creatinine 0.54.. Glucose 180. Magnesium 1.5. Objective - Vital Signs Vital signs: Vital Signs Temp 98.1 F 03/05/22 08:55 Pulse 78 03/05/22 11:52 Resp 18 03/05/22 11:52 BP 117/69 03/05/22 11:52 Pulse Ox 94 L 03/05/22 11:52 FiO2 Intake & Output 03/04/22 03/05/22 03/05/22 18:59 06:59 18:59 Intake Total 1820 400 Output Total 675 1225 375 Balance 1145 -825 -375 Intake: Intake, IV Titration 400 Amount Sodium Chloride 0.9% 1, 400 000 ml @ 50 mls/hr IV . Q20H [facility] Rx#:[id number] Oral 1820 Output: Urine 675 1225 375 Other: Voiding Method Urinal Urinal Urinal # Voids 1 - Exam No acute distress, oriented 3. Currently on 2 L nasal cannula. No conversational dyspnea or use of accessory muscles. HEENT examination is grossly unremarkable. Neck supple. Full range of motion. No adenopathy thyromegaly or neck vein distention. Cardiovascular examination reveals regular rhythm rate. S1-S2 normal. No S3 or S4. No discernible murmur noted. Heart rate 78 bpm. Lungs reveal scattered bilateral rhonchi and very mild expiratory wheezes. No crackles. Breath sounds equal bilaterally. 2 L saturation is 94 %. Abdomen soft bowel sounds are heard. No masses or tenderness. Extremities reveal 1+ edema, and some chronic venous stasis changes of the lower extremities. No cyanosis or clubbing. Cast again noted on left forearm. Skin is without rash or lesion. Neurologic examination is brief but nonfocal. - Labs CBC & Chem 7: 03/04/22 10:11 03/05/22 09:39 Labs: Abnormal Lab Results - Last 24 Hours (Table) 03/04/22 03/04/22 03/05/22 Range/Units 16:39 20:40 09:39 Sodium 126 L (137-145) mmol/L Potassium 2.6 L* (3.5-5.1) mmol/L Chloride 85 L (98-107) mmol/L Carbon Dioxide 33 H (22-30) mmol/L BUN 7 L (9-20) mg/dL Creatinine 0.54 L (0.66-1.25) mg/dL Glucose 180 H (74-99) mg/dL POC Glucose (mg/dL) 163 H 147 H (70-110) mg/dL Calcium 8.1 L (8.4-10.2) mg/dL Magnesium 1.5 L (1.6-2.3) mg/dL Assessment and Plan Assessment: Chest pain, somewhat atypical, currently being evaluated by the primary service. Shortness of breath and chest congestion, consistent with the patient's known history of COPD, and chronic hypoxemic respiratory failure. History of hypertension. Hyponatremia and hypokalemia. History of diabetes mellitus and diabetic neuropathy. History of hyperlipidemia. History of chronic atrial fibrillation. History of gastroesophageal reflux disease. Morbid obesity. DJD. Ongoing tobacco use with nicotine addiction. Recent fall and left forearm fracture. Plan: Plan dated 03/03/2022. The patient's COPD is pretty much at baseline. The patient will get DuoNeb's 4 times a day and when necessary, as well as Symbicort 160/4.5, 2 puffs twice a day, and prednisone 40 mg a day. Additional recommendations and suggestions are forthcoming. The primary service is evaluating the patient's atrial fibrillation with RVR, and atypical chest pain. We will continue to follow make recommendations where appropriate. Prognosis is guarded. The patient is counseled about the importance of smoking cessation. Plan dated 03/04/2022. The patient is currently on Symbicort, prednisone, theophylline, and duo nebs. His respiratory status in my opinion is relatively stable. We will follow the patient, and make recommendations where appropriate. Prognosis is guarded. The patient was very angry today about his pain medication, so much so, that he ripped his cast off. Plan dated 03/05/2022. From the pulmonary standpoint, the patient could be discharged. Unfortunately, the patient's sodium is 126, and potassium is also low. The patient's breathing is stable. He is down to 2 L nasal cannula. He denies any additional chest pain or chest discomfort. Labs, x-rays, and medications are reviewed. The primary service will decide about discharge. From the pulmonary standpoint, the patient is stable. Time with Patient: Less than 30
[2022-03-05 12:41] LABS: Glucose,Whole Blood 275 mg/dL (70-110)
[2022-03-05] MEDS ORDERED: POTASSIUM CHLORIDE ER 20 MEQ TAB.ER PO STA ×2 (13:09→16:16)
--- NOTE | 2022-03-05 13:54 | P.PN ---
Subjective Progress Note Date: 03/05/22 HISTORY OF PRESENT ILLNESS: This is a 71-year-old male with a past medical history significant for paroxysmal atrial fibrillation, COPD with home oxygen use, congestive heart failure, hypertension, and hyperlipidemia. 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 We have been asked to see the patient in consultation for chest pain. Patient examined at the bedside. Patient states over the past 2-3 days he has been having chest discomfort. He states the pain is on the left side of his chest. He states the pain will only last for a few seconds and then it goes away on its own. He reports the pain feels like a sharp pain and also a burning sensation. The patient denies any pain at the time of my examination. * EKG reveals atrial fibrillation with controlled ventricular rate * Chest xray right upper lobe atelectasis and/or infiltrates. Mild cardiomegaly with mild pulmonary interstitial edema is likely present. * Laboratory data: WBC 10.6. Hemoglobin 12.3. Platelet count 319. Sodium 126. Potassium 3.0. BUN 9. Creatinine 0.50. Troponin negative 3. * Current home cardiac medications include ELiquis 5mg BID, Norvasc 10 mg daily, metoprolol titrate 50 mg twice a day, Lasix 40 mg at night, Lipitor 20 mg at night * Most recent echocardiogram obtained in May 2022 revealed mild LVH, ejection fraction 50-55%, mild MR, mild TR, mild to moderate pulmonary hypert ension * Cardiac catheterization history: Unknown 03/05/2022 Patient examined this morning at the bedside. Patient denies any further episodes of chest discomfort. He denies shortness of breath. Echocardiogram completed revealing ejection fraction 40% with anterior/anteroseptal wall LV hypokinesis. Vital signs are stable. PHYSICAL EXAM: VITAL SIGNS: Reviewed. GENERAL: Well-developed in no acute distress. HEENT: Head is normocephalic. Pupils are equal, round. Sclerae anicteric. Mucous membranes of the mouth are moist. Neck supple. No JVD or thyromegaly LUNGS: Respirations even and unlabored. Lungs essentially clear to auscultation bilaterally. HEART: Irregular rate and rhythm. S1 and S2 heard. ABDOMEN: Soft. Nondistended. Nontender. EXTREMITIES: Normal range of motion. No clubbing or cyanosis. Peripheral pulses intact. Trace bilateral lower extremity edema with chronic discoloration noted. NEUROLOGIC: Awake and alert. Oriented x 3. ASSESSMENT: Chest pain, noncardiac, troponin negative 3 Hypokalemia Paroxysmal atrial fibrillation COPD with home oxygen use Chronic congestive heart failure with preserved ejection fraction Hypertension Hyperlipidemia Mild cardiomyopathy, etiology unclear PLAN: Continue current cardiac medications Patient is hoping to be discharged home today. He has had no further episodes of chest discomfort. Per Dr. Galvan, patient may be discharged home today with close outpatient follow-up. Discussed possible stress test versus outpatient cardiac catheteriza tion with patient who is agreeable We will sign off. Please reconsult if needed. Nurse practitioner note has been reviewed by physician. Signing provider agrees with the documented findings, assessment, and plan of care. Objective - Vital Signs Vital signs: Vital Signs Temp 98.1 F 03/05/22 08:55 Pulse 78 03/05/22 11:52 Resp 18 03/05/22 11:52 BP 117/69 03/05/22 11:52 Pulse Ox 94 L 03/05/22 11:52 FiO2 Intake & Output 03/04/22 03/05/22 03/05/22 18:59 06:59 18:59 Intake Total 1820 400 Output Total 675 1225 375 Balance 1145 -825 -375 Intake: Intake, IV Titration 400 Amount Sodium Chloride 0.9% 1, 400 000 ml @ 50 mls/hr IV . Q20H [facility] Rx#:[id number] Oral 1820 Output: Urine 675 1225 375 Other: Voiding Method Urinal Urinal Urinal # Voids 1 - Labs CBC & Chem 7: 03/04/22 10:11 03/05/22 09:39 Labs: Abnormal Lab Results - Last 24 Hours (Table) 03/04/22 03/04/22 03/05/22 Range/Units 16:39 20:40 09:39 Sodium 126 L (137-145) mmol/L Potassium 2.6 L* (3.5-5.1) mmol/L Chloride 85 L (98-107) mmol/L Carbon Dioxide 33 H (22-30) mmol/L BUN 7 L (9-20) mg/dL Creatinine 0.54 L (0.66-1.25) mg/dL Glucose 180 H (74-99) mg/dL POC Glucose (mg/dL) 163 H 147 H (70-110) mg/dL Calcium 8.1 L (8.4-10.2) mg/dL Magnesium 1.5 L (1.6-2.3) mg/dL 03/05/22 Range/Units 12:40 Sodium (137-145) mmol/L Potassium (3.5-5.1) mmol/L Chloride (98-107) mmol/L Carbon Dioxide (22-30) mmol/L BUN (9-20) mg/dL Creatinine (0.66-1.25) mg/dL Glucose (74-99) mg/dL POC Glucose (mg/dL) 275 H (70-110) mg/dL Calcium (8.4-10.2) mg/dL Magnesium (1.6-2.3) mg/dL
[2022-03-05] MEDS: MAGNESIUM SULFATE-D5W PMX 1 GM in DEXTROSE/WATER 1 100ML.BAG IVPB SCH ×2 (14:17→15:26)
[2022-03-05] MEDS ORDERED: NICOTINE 21MG/24HR PATCH TRANSDERM SCH (14:45)
[2022-03-05 17:05] LABS: Glucose,Whole Blood 278 mg/dL (70-110)
[2022-03-05 17:29] VITALS: BP 127/69; PULSE 97
--- NOTE | 2022-03-05 19:24 | P.PN ---
Subjective This is a pleasant 71 years old male with past medical history of Atrial Fibrillation, on liquids, COPD, Diabetes Mellitus, GERD/Reflux, Hyperlipidemia, Hypertension, Osteoarthritis, home oxygen prn, bronchitis, diabetic neuropathy bilateral feet/L hand, chronic pain back,/bilateral hips/knees/elbows and shoulders, L heel pain, FALLS, cataracts. from extended care facility. He presents because of chest pain or dyspnea of 1- 2 days duration, chest pain was severe to the left side, nonradiating, but now is gone. No dizziness or lightheadedness. Patient also has been complaining of from dyspnea cough with sticky phlegm for the last 2 days. His asp net mvc developer is Dr. Jones and he is on 2 L of her significant is AT HOME. HE STATES HE QUIT SMOKING ABOUT A MONTH AGO, USED TO SMOKE 2 PACKS PER DAY. He denies abdominal pain or vomiting or diarrhea. No urinary complaints. No fever. Patient was found to be severely hypokalemic and hypernatremic most likely secondary to diuretic. Lasix was listed on of his home medication. Also there is mention of chlorthalidone. Patient is tachycardic 112, rest of vitals are stable and patient is afebrile Labs showing severe carpal natremia 121 and hypokalemia 1.7. Carbon dioxide elevated 42, creatinine normal 0.6. Liver enzymes are not elevated. Bilirubin is slightly elevated at 1.7. Glucose is 127. CBC showed leukocytosis of 15.2. He has chronic leukocytosis Hemoglobin is 12.4. Platelet count 279. Troponin is -0.02 Chest CTA.: The filling defects within the bilateral lower lobe distal subsegmental pulmonary arteries are probably artifact versus nonocclusive pulmonary emboli. No major central pulmonary embolism. No signs of cardiac strain. 03/04/2022 Patient awake and alert, sitting in chair looks upset. He is not in respiratory distress and breathing quietly. He denies chest pain or significant dyspnea today. No coughing. No abdominal pain or vomiting. No diarrhea or urinary complaints. Patient complaining from pain in his left wrist area where he has a hard cast, also in the left foot where there is soft tissue swelling and superficial ulcer, looks like hematoma. No surrounding cellulitis or erythema. He is hemodynamically stable. Labs showing improvement with sodium up to 126, potassium up to 3.0, CBC normal WBC. Left foot x-ray showing no fracture or dislocation. Soft tissue swelling on the dorsum of the foot with ulcer. Left foot soft tissue swelling with ulcer, most likely hematoma Orthopedic team were consulted as well as Wound team consult. Orthopedic team recommended to continue with nonoperative treatment based upon patient wishes, they recommended to continue with heart cast and follow-up outpatient with Dr. ely Leasing Agent evaluated the patient and acute coronary syndrome has been ruled out area echocardiogram is recommended 03/05/2022 patient today was doing well, he states that his pain is much controlled and he does not have significant symptoms. His left foot hematoma also stable and patient was asking to be discharged today. Also has been cleared for discharge by muscle the consultants including director of sustainability recommended outpatient stress test versus cardiac cath, asp net mvc developer and orthopedic team recommended follow-up with Dr. Ely as patient refused surgery for his displaced left radial fracture. I asked the patient bymyself and he confirmed he does he not want surgery and he was to keep the heart rate cast and follow-up outpatient. However patient still has electrolyte abnormalities with hyponatremia 126, hypok alemia 2.6 and 3.6 and hypomagnesemia 1.5. These been replaced with continued with IV fluid. I told the patient to stop taking diuretics including Lasix and metolazone and he agrees. helmet binder still on the case Repeat labs in the morning as patient is not medically stable for discharge Possible discharge in 24-48 hours if he keeps improving. Objective - Vital Signs Vital signs: Vital Signs Temp 98.1 F 03/05/22 08:55 Pulse 102 H 03/05/22 15:40 Resp 18 03/05/22 15:16 BP 117/69 03/05/22 11:52 Pulse Ox 94 L 03/05/22 11:52 FiO2 Intake & Output 03/04/22 03/05/22 03/05/22 18:59 06:59 18:59 Intake Total 1820 400 Output Total 675 1225 625 Balance 6867 -590 -124 Intake: Intake, IV Titration 400 Amount Sodium Chloride 0.9% 1, 400 000 ml @ 75 mls/hr IV . [id number] ALESSIO Rx#:[id number] Oral 1820 Output: Urine 675 1225 625 Other: Voiding Method Urinal Urinal Urinal # Voids 1 - Exam -GENERAL: The patient is alert and oriented x3, not in any acute distress. Obese HEENT: Pupils are round and equally reacting to light. EOMI. No scleral icterus. No conjunctival pallor. Normocephalic, atraumatic. No pharyngeal erythema. No thyromegaly. CARDIOVASCULAR: S1 and S2 present. No murmurs, rubs, or gallops. PULMONARY: Chest is clear to auscultation, no wheezing or crackles. ABDOMEN: Soft, nontender, nondistended, normoactive bowel sounds. No palpable organomegaly. MUSCULOSKELETAL: No joint swelling or deformity. -EXTREMITIES: No cyanosis, clubbing, or pedal edema. Left forearm hard cast in place. Patient can move his hand and drape. Left foot soft tissue swelling on the dorsum, suspicious hematoma with superficial ulceration, no surrounding cellulitis NEUROLOGICAL: Gross neurological examination did not reveal any focal deficits. SKIN: No rashes. no petechiae. - Labs CBC & Chem 7: 03/04/22 10:11 03/05/22 15:10 Labs: Abnormal Lab Results - Last 24 Hours (Table) 03/04/22 03/04/22 03/05/22 Range/Units 16:39 20:40 09:39 Sodium 126 L (137-145) mmol/L Potassium 2.6 L* (3.5-5.1) mmol/L Chloride 85 L (98-107) mmol/L Carbon Dioxide 33 H (22-30) mmol/L BUN 7 L (9-20) mg/dL Creatinine 0.54 L (0.66-1.25) mg/dL Glucose 180 H (74-99) mg/dL POC Glucose (mg/dL) 163 H 147 H (70-110) mg/dL Calcium 8.1 L (8.4-10.2) mg/dL Magnesium 1.5 L (1.6-2.3) mg/dL 03/05/22 Range/Units 12:40 Sodium (137-145) mmol/L Potassium (3.5-5.1) mmol/L Chloride (98-107) mmol/L Carbon Dioxide (22-30) mmol/L BUN (9-20) mg/dL Creatinine (0.66-1.25) mg/dL Glucose (74-99) mg/dL POC Glucose (mg/dL) 275 H (70-110) mg/dL Calcium (8.4-10.2) mg/dL Magnesium (1.6-2.3) mg/dL Assessment and Plan Assessment: -Acute hyponatremia and acute hypokalemia most likely secondary to diuretics -Left wrist fracture with persistent displacement of the distal radius even after her to cast placement, patient declined surgical treatment and wants to continue with conservative management per orthopedic team -Mild Acute COPD exacerbation -Chest pain, secondary COPD. Resolved -Chronic hypoxemic respiratory failure, ventilator oxygen via nasal cannula -Chronic atrial fibrillation on liquids -Hypertension -Diabetes mellitus -Hyperlipidemia -History of GERD -History of osteoarthritis -Diabetic neuropathy -Chronic back pain -Obesity with BMI of 32.9 Plan: This is A pleasant 71 years old male who presents because of chest pain Continue to monitor electrolytes, continue with normal saline at 50 mL per hour. Continue holding Lasix and metolazone. The first team on the case Patient was cleared for discharge, by pulmonary, director of sustainability on the orthopedic team Wound 1 team consult for left foot wound The first chemo on the manager rn case electrolytes Labs and medication were reviewed.. Continue same treatment. Continue with sy mptomatic treatment. Resume home medication. Monitor lytes and vitals. DVT and GI prophylaxis. Further recommendations depends on the clinical course of the patient DVT prophylaxis: Eliquis GI Prophylaxis: Pepcid PT/OT: Recommended home health care Prognosis is guarded
--- NOTE | 2022-03-06 06:32 | P.DS ---
Providers Date of admission: 03/03/22 09:31 Attending physician: Tigre Geiger MD Consults: 03/03/22 09:23 Consult Physician Urgent Consulting Provider: Tc Brady Consult Reason/Comments: hyponatremia and hypokalemia Do you want consulting provider notified?: Yes 03/03/22 10:30 Consult Physician Urgent Consulting Provider: Calvin Martin Consult Reason/Comments: copd Do you want consulting provider notified?: Yes 03/04/22 08:13 Consult Physician Urgent Consulting Provider: Rambo Jaeger Consult Reason/Comments: left wrist cast & left foot swelling Do you want consulting provider notified?: Yes Primary care physician: [facility] Course: Please note patient was not discharged but he left AMA before I have chance to see him and talk to him. Yesterday after rounding bedside nurse contacted me patient wanted because he claimed he has no transportation over the weekend, we explained to him that hospital can provide transportation like taxi Car for him upon discharge over the weekend and he agrees to stay. Patient explained for him he is not indicated ready for discharge and need to monitor his electrolytes like sodium and potassium besides other thinks and problems. It looks like better on patient decided to leave AMA. Risks and benefits are explained to him by staff Based upon my evaluation earlier patient has capacity to make his own decision. Please refer to yesterday note for more details Patient Condition at Discharge: Serious Plan - Discharge Summary Discharge Rx Participant: Yes New Discharge Prescriptions: No Action Omeprazole 20 mg PO DAILY metFORMIN HCL 500 mg PO BID Albuterol Nebulized [Ventolin Nebulized] 2.5 mg INHALATION RT-Q6H PRN PRN Reason: Shortness Of Breath Metoprolol Tartrate [Lopressor] 50 mg PO BID Apixaban [Eliquis] 5 mg PO BID #60 tab Melatonin 3 mg PO HS PRN PRN Reason: Insomnia LORazepam [Ativan] 0.5 mg PO Q4H PRN PRN Reason: Anxiety Ipratropium-Albuterol Nebulize [Duoneb 0.5 mg-3 mg/3 ml Soln] 3 ml INHALATION RT-Q4H PRN PRN Reason: Shortness Of Breath Guaifenesin/Dextrothorphan 1 tab PO Q8H PRN PRN Reason: COPD HYDROcodone/APAP 7.5-325MG [[place] 7.5-325] 1 tab PO Q4H PRN PRN Reason: Pain Calcium Carb-Vit D 500Mg-5Mcg [Oscal 500+D 5 Mcg (200 Iu)] 1 tab PO DAILY Magnesium 250 mg PO DAILY Loratadine [Claritin] 10 mg PO DAILY Atorvastatin [Lipitor] 20 mg PO HS amLODIPine [Norvasc] 10 mg PO DAILY Furosemide [Lasix] 40 mg PO HS Ipratropium-Albuterol Nebulize [Duoneb 0.5 mg-3 mg/3 ml Soln] 3 ml INHALATION RT-Q6H PRN PRN Reason: Shortness Of Breath Or Wheezing Tamsulosin [Flomax] 0.4 mg PO HS Gabapentin [Neurontin] 100 mg PO TID@0500,1300,2100 Nicotine 21Mg/24Hr Patch [Habitrol] 1 patch TRANSDERM DAILY patch predniSONE 10 mg PO DAILY #0 Fluticasone Nasal [place] [Flonase Nasal Rose Bud] 1 spray EA NOSTRIL Q12H PRN PRN Reason: nasal drainage Sodium Chloride 0.65% Nasal [Deep Sea (Saline)] 1 spray NASAL Q6H PRN PRN Reason: Dry Nasal Passages Sennosides/Docusate Sodium [Senna Plus 8.6-50 mg Tablet] 1 tab PO BID@0800,1600 Potassium Chloride [Klor-Con 10 ER] 10 meq PO BID metOLazone [Zaroxolyn] 10 mg PO BID Cyanocobalamin [Vitamin B-12] 500 mcg PO DAILY Theophylline Anhydrous [Theophylline] 400 mg PO DAILY Presho-3 Fatty Acids/Fish Oil [Fish Oil 1,000 mg Softgel] 1 cap PO DAILY Albuterol Sulfate [Proair Hfa] 2 puff INHALATION RT-Q12H PRN PRN Reason: Shortness Of Breath Phenylephrine HCl/Prometh HCl [Promethazine Vc Syrup] 10 ml PO Q6H PRN PRN Reason: Nausea Discharge Medication List Albuterol Nebulized [Ventolin Nebulized] 2.5 mg INHALATION RT-Q6H PRN 05/08/20 [History] Omeprazole 20 mg PO DAILY 05/08/20 [History] metFORMIN HCL 500 mg PO BID 05/08/20 [History] Metoprolol Tartrate [Lopressor] 50 mg PO BID 07/07/20 [History] Apixaban [Eliquis] 5 mg PO BID #60 tab 07/08/20 [Rx] Atorvastatin [Lipitor] 20 mg PO HS 01/12/21 [History] amLODIPine [Norvasc] 10 mg PO DAILY 01/12/21 [History] Furosemide [Lasix] 40 mg PO HS 05/02/21 [History] Ipratropium-Albuterol Nebulize [Duoneb 0.5 mg-3 mg/3 ml Soln] 3 ml INHALATION RT-Q6H PRN 05/02/21 [History] Gabapentin [Neurontin] 100 mg PO TID@0500,1300,2100 12/07/21 [History] Tamsulosin [Flomax] 0.4 mg PO HS 12/07/21 [History] Nicotine 21Mg/24Hr Patch [Habitrol] 1 patch TRANSDERM DAILY patch 12/11/21 [Rx] predniSONE 10 mg PO DAILY #0 12/11/21 [Rx] Albuterol Sulfate [Proair Hfa] 2 puff INHALATION RT-Q12H PRN 02/18/22 [History] Calcium Carb-Vit D 500Mg-5Mcg [Oscal 500+D 5 Mcg (200 Iu)] 1 tab PO DAILY 02/18/22 [History] Cyanocobalamin [Vitamin B-12] 500 mcg PO DAILY 02/18/22 [History] Fluticasone Nasal [place] [Flonase Nasal Rose Bud] 1 spray EA NOSTRIL Q12H PRN 02/18/22 [History] Guaifenesin/Dextrothorphan 1 tab PO Q8H PRN 02/18/22 [History] HYDROcodone/APAP 7.5-325MG [[place] 7.5-325] 1 tab PO Q4H PRN 02/18/22 [History] Ipratropium-Albuterol Nebulize [Duoneb 0.5 mg-3 mg/3 ml Soln] 3 ml INHALATION RT-Q4H PRN 02/18/22 [History] LORazepam [Ativan] 0.5 mg PO Q4H PRN 02/18/22 [History] Loratadine [Claritin] 10 mg PO DAILY 02/18/22 [History] Magnesium 250 mg PO DAILY 02/18/22 [History] Melatonin 3 mg PO HS PRN 02/18/22 [History] Presho-3 Fatty Acids/Fish Oil [Fish Oil 1,000 mg Softgel] 1 cap PO DAILY 02/18/22 [History] Phenylephrine HCl/Prometh HCl [Promethazine Vc Syrup] 10 ml PO Q6H PRN 02/18/22 [History] Potassium Chloride [Klor-Con 10 ER] 10 meq PO BID 02/18/22 [History] Sennosides/Docusate Sodium [Senna Plus 8.6-50 mg Tablet] 1 tab PO BID@0800,1600 02/18/22 [History] Sodium Chloride 0.65% Nasal [Deep Sea (Saline)] 1 spray NASAL Q6H PRN 02/18/22 [History] Theophylline Anhydrous [Theophylline] 400 mg PO DAILY 02/18/22 [History] metOLazone [Zaroxolyn] 10 mg PO BID 02/18/22 [History] Follow up Appointment(s)/Referral(s): Talha Infante MD [STAFF PHYSICIAN] - 1 Week (we recommend stress test versus outpatient cardiac catheterization ) Mounika Grace DO [Doctor of Osteopathic Medicine] - 2 Weeks [facility], [NON-STAFF] - [facility] [NON-STAFF] - Elver Jackson MD [Primary Care Provider] - 1-2 days Activity/Diet/Wound Care/Special Instructions: Keep cast clean and dry. Discharge Disposition: Left Against Medical Advice
== END 2022-03-05 20:45 | disposition left against medical advice (07) | DRG 640 ==
LOC: EC 05:14 → 3SCARD 09:31
PROVIDERS: ADMIT Internal Medicine; ATTEND Internal Medicine
DX: E87.6 Hypokalemia (principal); J96.21 Acute and chronic respiratory failure with hypoxia; S52.502A Unspecified fracture of the lower end of left radius, initial encounter for closed fracture; I42.9 Cardiomyopathy, unspecified; I50.32 Chronic diastolic (congestive) heart failure; J44.1 Chronic obstructive pulmonary disease with (acute) exacerbation; J98.11 Atelectasis; E87.1 Hypo-osmolality and hyponatremia; T50.2X5A Adverse effect of carbonic-anhydrase inhibitors, benzothiadiazides and other diuretics, initial encounter; D72.829 Elevated white blood cell count, unspecified; E11.40 Type 2 diabetes mellitus with diabetic neuropathy, unspecified; E11.621 Type 2 diabetes mellitus with foot ulcer; E66.01 Morbid (severe) obesity due to excess calories; E83.51 Hypocalcemia; E87.4 Mixed disorder of acid-base balance; F17.210 Nicotine dependence, cigarettes, uncomplicated; F32.A Depression, unspecified; Z99.81 Dependence on supplemental oxygen; F41.9 Anxiety disorder, unspecified; G89.29 Other chronic pain; I11.0 Hypertensive heart disease with heart failure; Z68.32 Body mass index [BMI] 32.0-32.9, adult; I48.0 Paroxysmal atrial fibrillation; L97.522 Non-pressure chronic ulcer of other part of left foot with fat layer exposed; M19.90 Unspecified osteoarthritis, unspecified site; S90.32XA Contusion of left foot, initial encounter; K21.9 Gastro-esophageal reflux disease without esophagitis; W19.XXXA Unspecified fall, initial encounter; Y92.129 Unspecified place in nursing home as the place of occurrence of the external cause; E78.5 Hyperlipidemia, unspecified; E83.42 Hypomagnesemia; Z53.29 Procedure and treatment not carried out because of patient's decision for other reasons; R29.6 Repeated falls; Z91.81 History of falling; Z63.72 Alcoholism and drug addiction in family; Z79.01 Long term (current) use of anticoagulants; Z79.84 Long term (current) use of oral hypoglycemic drugs; Z79.899 Other long term (current) drug therapy; Z80.0 Family history of malignant neoplasm of digestive organs; Z81.1 Family history of alcohol abuse and dependence; Z82.49 Family history of ischemic heart disease and other diseases of the circulatory system; Z82.5 Family history of asthma and other chronic lower respiratory diseases; M25.562 Pain in left knee; M25.561 Pain in right knee; M25.552 Pain in left hip; M25.551 Pain in right hip; M25.522 Pain in left elbow; M25.521 Pain in right elbow; M25.512 Pain in left shoulder; M25.511 Pain in right shoulder; Z90.49 Acquired absence of other specified parts of digestive tract; Z60.2 Problems related to living alone; M54.9 Dorsalgia, unspecified; H26.9 Unspecified cataract; Z88.1 Allergy status to other antibiotic agents; Z88.0 Allergy status to penicillin; Z88.8 Allergy status to other drugs, medicaments and biological substances
CPT/HCPCS: 36415; 71046; 71275; 80048; 80053; 82570; 83735; 83880; 83930; 83935; 84132; 84300; 84443; 84484; 85025; 85610; 85730; 93005; 93306; 94640; 96361; 96365; 96366; 96367; 96368; 96375; 96376; 99285

== ENCOUNTER 2022-08-29 10:10 | Inpatient (IN) | payer MEDICARE, OTHER ==
[2022-08-29] MEDS ORDERED: methylPREDNISolone SOD SUCCI 125 MG/2 ML VIAL IV STA (10:26)
[2022-08-29] MEDS ORDERED: ALBUTEROL HFA INHALER INHALATION STA (10:27)
--- NOTE | 2022-08-29 10:44 | ED ---
General Adult HPI - General Chief complaint: Shortness of Breath Stated complaint: SAMIR Time Seen by Provider: 08/29/22 10:25 Source: patient, EMS, RN notes reviewed, old records reviewed Mode of arrival: EMS Limitations: no limitations - History of Present Illness Initial comments: Patient is a 71-year-old female with past medical history remarkable for atrial fibrillation, CHF, asthma, COPD, diabetes who at home was on 3 L nasal cannula at baseline presents emergency Department complaining of a multiweek history of progressively worsening shortness of breath. He has noticed that has gotten worse over the last few days more so. Has chronic orthopnea that is unchanged. His chronic cough productive of a creamy mucus which is unchanged. Denies any fevers, chills, sick contacts. Denies any chest pain. Denies any abdominal pain, nausea, vomiting. Believes he may have slightly increased lower extremity pitting edema. Endorses chronic PND. Endorses worsening exertional dyspnea. He is concerned his COPD or CHF may be acting up. Presents for further evaluation at this time. States he is compliant with his blood thinning medication. - Related Data Home Medications Medication Instructions Recorded Confirmed Albuterol Nebulized [Ventolin 2.5 mg INHALATION RT-Q6H PRN 05/08/20 03/03/22 Nebulized] Omeprazole 20 mg PO DAILY 05/08/20 03/03/22 metFORMIN HCL 500 mg PO BID 05/08/20 03/03/22 Metoprolol Tartrate [Lopressor] 50 mg PO BID 07/07/20 03/03/22 Atorvastatin [Lipitor] 20 mg PO HS 01/12/21 03/03/22 amLODIPine [Norvasc] 10 mg PO DAILY 01/12/21 03/03/22 Furosemide [Lasix] 40 mg PO HS 05/02/21 03/03/22 Ipratropium-Albuterol Nebulize 3 ml INHALATION RT-Q6H PRN 05/02/21 03/03/22 [Duoneb 0.5 mg-3 mg/3 ml Soln] Gabapentin [Neurontin] 100 mg PO TID@0500,1300,2100 12/07/21 03/03/22 Tamsulosin [Flomax] 0.4 mg PO HS 12/07/21 03/03/22 Albuterol Sulfate [Proair Hfa] 2 puff INHALATION RT-Q12H PRN 02/18/22 03/03/22 Calcium Carb-Vit D 500Mg-5Mcg 1 tab PO DAILY 02/18/22 03/03/22 [Oscal 500+D 5 Mcg (200 Iu)] Cyanocobalamin [Vitamin B-12] 500 mcg PO DAILY 02/18/22 03/03/22 Fluticasone Nasal [place] [Flonase 1 spray EA NOSTRIL Q12H PRN 02/18/22 03/03/22 Nasal [place]] Guaifenesin/Dextrothorphan 1 tab PO Q8H PRN 02/18/22 03/03/22 HYDROcodone/APAP 7.5-325MG [[place] 1 tab PO Q4H PRN 02/18/22 03/03/22 7.5-325] Ipratropium-Albuterol Nebulize 3 ml INHALATION RT-Q4H PRN 02/18/22 03/03/22 [Duoneb 0.5 mg-3 mg/3 ml Soln] LORazepam [Ativan] 0.5 mg PO Q4H PRN 02/18/22 03/03/22 Loratadine [Claritin] 10 mg PO DAILY 02/18/22 03/03/22 Magnesium 250 mg PO DAILY 02/18/22 03/03/22 Melatonin 3 mg PO HS PRN 02/18/22 03/03/22 [place]-3 Fatty Acids/Fish Oil [Fish 1 cap PO DAILY 02/18/22 03/03/22 Oil 1,000 mg Softgel] Phenylephrine HCl/Prometh HCl 10 ml PO Q6H PRN 02/18/22 03/03/22 [Promethazine Vc Syrup] Potassium Chloride [Klor-Con 10 ER] 10 meq PO BID 02/18/22 03/03/22 Sennosides/Docusate Sodium [Senna 1 tab PO BID@0800,1600 02/18/22 03/03/22 Plus 8.6-50 mg Tablet] Sodium Chloride 0.65% Nasal [Deep 1 spray NASAL Q6H PRN 02/18/22 03/03/22 Sea (Saline)] Theophylline Anhydrous 400 mg PO DAILY 02/18/22 03/03/22 [Theophylline] metOLazone [Zaroxolyn] 10 mg PO BID 02/18/22 03/03/22 Previous Rx's Medication Instructions Recorded Apixaban [Eliquis] 5 mg PO BID #60 tab 07/08/20 Nicotine 21Mg/24Hr Patch [Habitrol] 1 patch TRANSDERM DAILY patch 12/11/21 predniSONE 10 mg PO DAILY #0 12/11/21 Allergies Allergy/AdvReac Type Severity Reaction Status Date / Time ANJU Inhibitors Allergy Unknown - Verified 08/29/22 10:21 per [facility] doxycycline Allergy Anaphylaxis Verified 08/29/22 10:21 Penicillins Allergy Anaphylaxis Verified 08/29/22 10:21 Review of Systems ROS Statement: Those systems with pertinent positive or pertinent negative responses have been documented in the HPI. Review of Systems: CONST: Denies fever EYES: Denies blurry vision ENT: Denies nasal congestion C/V: Denies Chest pain RESP: Endorses shortness of breath GI: Denies abdominal pain : Denies dysuria SKIN: Denies rash. MSK: Denies joint pain. NEURO: Denies headache ROS Other: All systems not noted in ROS Statement are negative. Past Medical History Past Medical History: Atrial Fibrillation, Asthma, COPD, Diabetes Mellitus, GERD/Reflux, Hyperlipidemia, Hypertension, Osteoarthritis (OA), Pneumonia Additional Past Medical History / Comment(s): Afib RVR, home oxygen prn, bronchitis, pt states he is on metformin to prevent becoming diabetic, neuropathy bilateral feet/L hand, chronic pain back,/bilateral hips/knees/elbows and shoulders, L heel pain, FALLS, cataracts. History of Any Multi-Drug Resistant Organisms: None Reported Past Surgical History: Appendectomy Additional Past Surgical History / Comment(s): Colonoscopy Past Anesthesia/Blood Transfusion Reactions: No Reported Reaction Past Psychological History: Anxiety, Depression Smoking Status: Current every day smoker Past Alcohol Use History: Occasional Past Drug Use History: None Reported - Past Family History Father Family Medical History: Congestive Heart Failure (CHF), COPD Additional Family Medical History / Comment(s): Father was an alcoholic but was able to quit drinking Mother Family Medical History: Congestive Heart Failure (CHF), COPD Additional Family Medical History / Comment(s): Mother was an alcoholic. Daughter(s) Additional Family Medical History / Comment(s): Liver cancer General Exam - General Exam Comments Initial Comments: General: Appears in no acute distress. HEAD: Normal with no signs of head trauma. EYES: PERRLA, EOMI, conjunctiva normal, no discharge. ENT: Hearing grossly intact, normal oropharynx. RESPIRATORY: Bilateral end expiratory wheezing. No hypoxia and his baseline 3 L nasal cannula. No increased work of breathing. C/V: Irregular rate and rhythm. S1 and S2 auscultated, bilateral symmetrical pitting edema in the lower extremities, peripheral pulses 2+ and intact throughout ABD: Abd is soft, nontender, nondistended. Easily reducible umbilical hernia. EXT: Normal range of motion, no obvious deformity SKIN: No rashes or lesions observed on exposed skin. NEURO: Alert and oriented x 4. Cranial nerves II-XII intact. No focal sensory or strength deficits. Limitations: no limitations Course Vital Signs 08/29/22 10:14 Temperature 98.3 F Pulse Rate 89 Respiratory 20 Rate Blood Pressure 146/73 O2 Sat by Pulse 96 Oximetry Medical Decision Making - Medical Decision Making Based on the patient's presentation and physical exam, I'm concerned for cardiopulmonary etiology for his current symptoms. History having CHF versus COPD exacerbation versus mixed picture. Cannot rule out infectious etiology at this time. Therefore we will obtain cardiopulmonary labs, chest x-ray, EKG. We'll also obtain Covid and flu swabs. He already received Solu-Medrol from EMS. We will continue breathing treatments with albuterol inhaler for now. He is on his home 3 L nasal cannula. Vital signs are within except for limits at this time. He was in agreement with this plan. He is asking for some food. EKG showed atrial fibrillation with no evidence of acute ischemia.Chest x-ray as interpreted by myself reveals no evidence of acute cardio pulmonary process, infiltrate. Laboratory studies are remarkable for a hyponatremia of 124, hypochloremia of 86, an elevated carbon dioxide at 36 in the setting of a COPD exacerbation, troponin is undetectable. BNP is within normal limits. Patient is Covid and flu negative. Remainder of the laboratory studies are unremarkable. I updated the patient. Wheezing is improved. I believe he is having in acute exacerbation of his COPD and also appears mildly dehydrated with hyponatremia. He will be given some IV fluids but we will monitor closely as we do not want to put him in volume overload. He was in agreement this plan. We'll continue IV steroids, breathing treatments. He'll be given a small fluid bolus at this time and we'll continue to monitor. No concern for bronchitis at this time as he normally has a productive sputum cough that is unchanged from baseline. Patient was in agreement this plan. I spoke with the admitting physician, Dr. ureña who accepted the patient. Patient was admitted in stable condition. - Lab Data Result diagrams: 08/29/22 10:32 08/29/22 10:32 Lab Results 08/29/22 08/29/22 08/29/22 Range/Units 10:32 10:32 10:32 WBC 10.0 (3.8-10.6) k/uL RBC 4.58 (4.30-5.90) m/uL Hgb 13.7 (13.0-17.5) gm/dL Hct 39.5 (39.0-53.0) % MCV 86.2 (80.0-100.0) fL MCH 29.9 (25.0-35.0) pg MCHC 34.7 (31.0-37.0) g/dL RDW 16.2 H (11.5-15.5) % Plt Count 238 (150-450) k/uL MPV 6.9 Neutrophils % 67 % Lymphocytes % 22 % Monocytes % 5 % Eosinophils % 4 % Basophils % 1 % Neutrophils # 6.7 (1.3-7.7) k/uL Lymphocytes # 2.2 (1.0-4.8) k/uL Monocytes # 0.5 (0-1.0) k/uL Eosinophils # 0.4 (0-0.7) k/uL Basophils # 0.1 (0-0.2) k/uL Anisocytosis Slight PT 9.5 (9.0-12.0) sec INR 0.9 (<1.2) APTT 25.1 (22.0-30.0) sec Sodium 124 L (137-145) mmol/L Potassium 3.7 (3.5-5.1) mmol/L Chloride 86 L (98-107) mmol/L Carbon Dioxide 36 H (22-30) mmol/L Anion Gap 2 mmol/L BUN 7 L (9-20) mg/dL Creatinine 0.53 L (0.66-1.25) mg/dL Est GFR (CKD-EPI)AfAm >90 (>60 ml/min/1.73 sqM) Est GFR (CKD-EPI)NonAf >90 (>60 ml/min/1.73 sqM) Glucose 113 H (74-99) mg/dL Calcium 8.1 L (8.4-10.2) mg/dL Magnesium 1.8 (1.6-2.3) mg/dL Total Bilirubin 1.0 (0.2-1.3) mg/dL AST 16 L (17-59) U/L ALT 16 (4-49) U/L Alkaline Phosphatase 67 (38-126) U/L Troponin I (0.000-0.034) ng/mL NT-Pro-B Natriuret Pep pg/mL Total Protein 5.9 L (6.3-8.2) g/dL Albumin 3.6 (3.5-5.0) g/dL Urine Color Urine Appearance (Clear) Urine pH (5.0-8.0) Ur Specific [place] (1.001-1.035) Urine Protein (Negative) Urine Glucose (UA) (Negative) Urine Ketones (Negative) Urine Blood (Negative) Urine Nitrite (Negative) Urine Bilirubin (Negative) Urine Urobilinogen (<2.0) mg/dL Ur Leukocyte Esterase (Negative) Urine RBC (0-5) /hpf Urine WBC (0-5) /hpf Coronavirus (PCR) (Not Detectd) Influenza Type A RNA (Not Detectd) Influenza Type B (PCR) (Not Detectd) 08/29/22 08/29/22 08/29/22 Range/Units 10:32 10:32 10:32 WBC (3.8-10.6) k/uL RBC (4.30-5.90) m/uL Hgb (13.0-17.5) gm/dL Hct (39.0-53.0) % MCV (80.0-100.0) fL MCH (25.0-35.0) pg MCHC (31.0-37.0) g/dL RDW (11.5-15.5) % Plt Count (150-450) k/uL MPV Neutrophils % % Lymphocytes % % Monocytes % % Eosinophils % % Basophils % % Neutrophils # (1.3-7.7) k/uL Lymphocytes # (1.0-4.8) k/uL Monocytes # (0-1.0) k/uL Eosinophils # (0-0.7) k/uL Basophils # (0-0.2) k/uL Anisocytosis PT (9.0-12.0) sec INR (<1.2) APTT (22.0-30.0) sec Sodium (137-145) mmol/L Potassium (3.5-5.1) mmol/L Chloride (98-107) mmol/L Carbon Dioxide (22-30) mmol/L Anion Gap mmol/L BUN (9-20) mg/dL Creatinine (0.66-1.25) mg/dL Est GFR (CKD-EPI)AfAm (>60 ml/min/1.73 sqM) Est GFR (CKD-EPI)NonAf (>60 ml/min/1.73 sqM) Glucose (74-99) mg/dL Calcium (8.4-10.2) mg/dL Magnesium (1.6-2.3) mg/dL Total Bilirubin (0.2-1.3) mg/dL AST (17-59) U/L ALT (4-49) U/L Alkaline Phosphatase (38-126) U/L Troponin I <0.012 (0.000-0.034) ng/mL NT-Pro-B Natriuret Pep 233 pg/mL Total Protein (6.3-8.2) g/dL Albumin (3.5-5.0) g/dL Urine Color Yellow Urine Appearance Clear (Clear) Urine pH 7.5 (5.0-8.0) Ur Specific [place] 1.010 (1.001-1.035) Urine Protein Negative (Negative) Urine Glucose (UA) Negative (Negative) Urine Ketones Negative (Negative) Urine Blood Trace H (Negative) Urine Nitrite Negative (Negative) Urine Bilirubin Negative (Negative) Urine Urobilinogen <2.0 (<2.0) mg/dL Ur Leukocyte Esterase Negative (Negative) Urine RBC 7 H (0-5) /hpf Urine WBC <1 (0-5) /hpf Coronavirus (PCR) (Not Detectd) Influenza Type A RNA (Not Detectd) Influenza Type B (PCR) (Not Detectd) 08/29/22 08/29/22 Range/Units 10:32 10:32 WBC (3.8-10.6) k/uL RBC (4.30-5.90) m/uL Hgb (13.0-17.5) gm/dL Hct (39.0-53.0) % MCV (80.0-100.0) fL MCH (25.0-35.0) pg MCHC (31.0-37.0) g/dL RDW (11.5-15.5) % Plt Count (150-450) k/uL MPV Neutrophils % % Lymphocytes % % Monocytes % % Eosinophils % % Basophils % % Neutrophils # (1.3-7.7) k/uL Lymphocytes # (1.0-4.8) k/uL Monocytes # (0-1.0) k/uL Eosinophils # (0-0.7) k/uL Basophils # (0-0.2) k/uL Anisocytosis PT (9.0-12.0) sec INR (<1.2) APTT (22.0-30.0) sec Sodium (137-145) mmol/L Potassium (3.5-5.1) mmol/L Chloride (98-107) mmol/L Carbon Dioxide (22-30) mmol/L Anion Gap mmol/L BUN (9-20) mg/dL Creatinine (0.66-1.25) mg/dL Est GFR (CKD-EPI)AfAm (>60 ml/min/1.73 sqM) Est GFR (CKD-EPI)NonAf (>60 ml/min/1.73 sqM) Glucose (74-99) mg/dL Calcium (8.4-10.2) mg/dL Magnesium (1.6-2.3) mg/dL Total Bilirubin (0.2-1.3) mg/dL AST (17-59) U/L ALT (4-49) U/L Alkaline Phosphatase (38-126) U/L Troponin I (0.000-0.034) ng/mL NT-Pro-B Natriuret Pep pg/mL Total Protein (6.3-8.2) g/dL Albumin (3.5-5.0) g/dL Urine Color Urine Appearance (Clear) Urine pH (5.0-8.0) Ur Specific [place] (1.001-1.035) Urine Protein (Negative) Urine Glucose (UA) (Negative) Urine Ketones (Negative) Urine Blood (Negative) Urine Nitrite (Negative) Urine Bilirubin (Negative) Urine Urobilinogen (<2.0) mg/dL Ur Leukocyte Esterase (Negative) Urine RBC (0-5) /hpf Urine WBC (0-5) /hpf Coronavirus (PCR) Not Detected (Not Detectd) Influenza Type A RNA Not Detected (Not Detectd) Influenza Type B (PCR) Not Detected (Not Detectd) - EKG Data -: EKG Interpreted by Me EKG Comments: 12-lead Electrocardiogram Interpretation Note EKG was reviewed and interpreted by myself. 12-lead ECG performed at 1026 is interpreted by me as revealing atrial fibrillation at a rate of 79 beats per minute. [place] is leftward deviated. QRS duration is 119 ms, QTc is 428 ms.. There were no ST or T wave abnormalities to suggest myocardial ischemia or injury. R wave progression across the precordium was satisfactory. By my interpretation this EKG is non-diagnostic for acute ischemia. When compared with EKG from February 2022,no significant change. Disposition Clinical Impression: COPD exacerbation, Hyponatremia Disposition: ADMITTED IP TO THIS HOSP Condition: Stable Referrals: Elver Jackson MD [Primary Care Provider] - 1-2 days Time of Disposition: 11:35
[2022-08-29 10:47] LABS: Anisocytosis Slight; Basophils # (A) 0.1 k/uL (0-0.2); Basophils % (A) 1 %; Eosinophils # (A) 0.4 k/uL (0-0.7); Eosinophils % (A) 4 %; HCT 39.5 % (39.0-53.0); HGB 13.7 gm/dL (13.0-17.5); Lymphocytes # (A) 2.2 k/uL (1.0-4.8); Lymphocytes % (A) 22 %; MCH 29.9 pg (25.0-35.0); MCHC 34.7 g/dL (31.0-37.0); MCV 86.2 fL (80.0-100.0); Mean Platelet Volume 6.9; Monocytes # (A) 0.5 k/uL (0-1.0); Monocytes % (A) 5 %; Neutrophils # (A) 6.7 k/uL (1.3-7.7); Neutrophils % (A) 67 %; Platelet Count 238 k/uL (150-450); RBC 4.58 m/uL (4.30-5.90); RDW 16.2 % (11.5-15.5)
[2022-08-29 10:56] LABS: INR 0.9 (<1.2); Partial Thromboplastin Time 25.1 sec (22.0-30.0); Prothrombin Time 9.5 sec (9.0-12.0)
[2022-08-29 11:04] LABS: ALT 16 U/L (4-49); AST 16 U/L (17-59); African American GFR (CKD) >90 (>60 ml/min/1.73 sqM); Albumin 3.6 g/dL (3.5-5.0); Alkaline Phosphatase 67 U/L (38-126); Anion Gap 2 mmol/L; Blood Urea Nitrogen 7 mg/dL (9-20); Calcium 8.1 mg/dL (8.4-10.2); Carbon Dioxide 36 mmol/L (22-30); Chloride 86 mmol/L (98-107); Glucose 113 mg/dL (74-99); Magnesium 1.8 mg/dL (1.6-2.3); Non-African American GFR(CKD) >90 (>60 ml/min/1.73 sqM); Potassium 3.7 mmol/L (3.5-5.1); Sodium 124 mmol/L (137-145); Total Protein 5.9 g/dL (6.3-8.2)
--- NOTE | 2022-08-29 11:14 | XR ---
EXAMINATION TYPE: XR chest 2V DATE OF EXAM: 08/29/2022 10:58 AM COMPARISON: Chest radiographs from 08/29/2022. TECHNIQUE: XR chest 2V Frontal and lateral views of the chest. CLINICAL INDICATION:Male, 71 years old with history of difficulty breathing; FINDINGS: Lungs/Pleura: There is no evidence of pleural effusion, focal consolidation, or pneumothorax. Pulmonary vascularity: Unremarkable. Heart/mediastinum: Cardiomediastinal silhouette is unremarkable. Musculoskeletal: No acute osseous pathology. IMPRESSION: No acute cardiopulmonary disease/process.
[2022-08-29] MEDS ORDERED: SODIUM CHLORIDE 0.9% 1,000 ML IV STA (11:17)
[2022-08-29 11:33] LABS: Appearance,Urine Clear (Clear); Bilirubin,Urine Negative (Negative); Blood,Urine Trace (Negative); Color,Urine Yellow; Glucose,Urine (UA) Negative (Negative); Ketones,Urine Negative (Negative); Leukocyte Esterase,Urine Negative (Negative); Nitrite,Urine Negative (Negative); PH, Urine 7.5 (5.0-8.0); Protein,Urine Negative (Negative); RBC,Urine 7 /hpf (0-5); Urobilinogen,Urine <2.0 mg/dL (<2.0); WBC,Urine <1 /hpf (0-5)
[2022-08-29] MEDS ORDERED: NALOXONE 0.4 MG/ML 1 ML VIAL IV PRN (11:44)
[2022-08-29] MEDS: IPRATROPIUM-ALBUTEROL 3 ML NEB INHALATION SCH ×4 (12:41→23:18)
[2022-08-29] MEDS ORDERED: MELATONIN 3 MG TABLET PO PRN (13:27)
[2022-08-29] MEDS: HYDROcodone/APAP 7.5-325MG 1 EACH TAB PO PRN ×2 (14:44→20:51)
[2022-08-29] MEDS: NICOTINE 21MG/24HR PATCH TRANSDERM SCH (14:45)
[2022-08-29] MEDS ORDERED: IPRATROPIUM-ALBUTEROL 3 ML NEB INHALATION PRN (15:28)
[2022-08-29] MEDS ORDERED: DEXTROSE 50% SYRINGE 50 ML IVP PRN ×2 (15:29)
[2022-08-29 16:53] LABS: Glucose,Whole Blood 221 mg/dL (70-110)
[2022-08-29] MEDS ORDERED: BUDESONIDE 0.5 MG/2 ML NEBU INHALATION PRN (17:31)
--- NOTE | 2022-08-29 17:37 | P.HPIM ---
History of Present Illness This is a pleasant 71 years old male with multiple medical problems including COPD he presents because of worsening dyspnea Present because of progressive dyspnea for about 3 weeks, slowly progressive associated with cough and age phlegm as patient is guarded, but denies any current chest pain. Patient states that yesterday he had chest pain for about an hour on his left side but bows. And treated as 0/10. Patient looks pretty comfortable in bed, he denies any headache weakness numbness or dizziness. No abdominal pain vomiting . No urinary complaint Patient admits having little diarrhea for 1 day duration but no fever Patient smokes about 1.5 pack per day he was counseled to quit but he declines and he agrees to nicotine patch At home he is on oxygen at 3 L/m, he states that he follows up with Dr. Robert Ott looks stable and his saturation 94% at 4 L oxygen via nasal cannula CBC is unremarkable, as well as INR. Sodium 124, patient has chronic hyponatremia with range 122-1:30. Creatinine 0.5. Liver enzymes not elevated. Urine analysis is negative. Coronavirus and influenza virus is are negative. EKG showing atrial fibrillation with rate control at [address]-T changes Chest x-ray: No acute cardiopulmonary process Patient is started on IV Solu-Medrol and breathing treatment patient also r eceived 1 L of normal saline in the emergency room Review of Systems Review of systems CONSTITUTIONAL: No fever, no malaise, no fatigue. HEENT: No recent visual problems or hearing problems. Denied any sore throat. CARDIOVASCULAR: No orthopnea, PND, no palpitations, no syncope. PULMONARY: No chest wall tenderness, no hemoptysis. GASTROINTESTINAL: No diarrhea, no nausea, no vomiting, no abdominal pain. Normoactive bowel sounds. NEUROLOGICAL: No headaches, no weakness, no numbness. HEMATOLOGICAL: Denies any bleeding or petechiae. GENITOURINARY: Denies any burning micturition, frequency, or urgency. MUSCULOSKELETAL/RHEUMATOLOGICAL: Denies any joint pain, swelling, or any muscle pain. ENDOCRINE: Denies any polyuria or polydipsia. Past Medical History Past Medical History: Atrial Fibrillation, Asthma, COPD, Diabetes Mellitus, GERD/Reflux, Hyperlipidemia, Hypertension, Osteoarthritis (OA), Pneumonia Additional Past Medical History / Comment(s): Afib RVR, home oxygen prn, bronchitis, pt states he is on metformin to prevent becoming diabetic, neuropathy bilateral feet/L hand, chronic pain back,/bilateral hips/knees/elbows and shoulders, L heel pain, FALLS, cataracts. History of Any Multi-Drug Resistant Organisms: None Reported Past Surgical History: Appendectomy Additional Past Surgical History / Comment(s): Colonoscopy Past Anesthesia/Blood Transfusion Reactions: No Reported Reaction Past Psychological History: Anxiety, Depression Smoking Status: Current every day smoker Past Alcohol Use History: Occasional Past Drug Use History: None Reported - Past Family History Father Family Medical History: Congestive Heart Failure (CHF), COPD Additional Family Medical History / Comment(s): Father was an alcoholic but was able to quit drinking Mother Family Medical History: Congestive Heart Failure (CHF), COPD Additional Family Medical History / Comment(s): Mother was an alcoholic. Daughter(s) Additional Family Medical History / Comment(s): Liver cancer Medications and Allergies Home Medications Medication Instructions Recorded Confirmed Type Albuterol Nebulized [Ventolin 2.5 mg INHALATION RT-Q6H PRN 05/08/20 08/29/22 History Nebulized] Apixaban [Eliquis] 5 mg PO BID #60 tab 07/08/20 08/29/22 Rx Atorvastatin [Lipitor] 20 mg PO HS 01/12/21 08/29/22 History amLODIPine [Norvasc] 10 mg PO DAILY 01/12/21 08/29/22 History Furosemide [Lasix] 40 mg PO BID 05/02/21 08/29/22 History Ipratropium-Albuterol Nebulize 3 ml INHALATION RT-Q6H PRN 05/02/21 08/29/22 History [Duoneb 0.5 mg-3 mg/3 ml Soln] Gabapentin [Neurontin] 100 mg PO BID 12/07/21 08/29/22 History Tamsulosin [Flomax] 0.4 mg PO DAILY 12/07/21 08/29/22 History Albuterol Sulfate [Proair Hfa] 2 puff INHALATION RT-Q6H PRN 02/18/22 08/29/22 History Fluticasone Nasal [place] [Flonase 1 spray EA NOSTRIL Q12H PRN 02/18/22 08/29/22 History Nasal [place]] HYDROcodone/APAP 7.5-325MG [[place] 1 tab PO Q4H PRN 02/18/22 08/29/22 History 7.5-325] Melatonin 3 mg PO HS PRN 02/18/22 08/29/22 History Potassium Chloride [Klor-Con 10 ER] 10 meq PO DAILY 02/18/22 08/29/22 History Theophylline Anhydrous 400 mg PO DAILY 02/18/22 08/29/22 History [Theophylline] Budesonide 0.5 mg INHALATION RT-BID PRN 08/29/22 08/29/22 History Escitalopram [Lexapro] 5 mg PO DAILY 08/29/22 08/29/22 History Omeprazole 40 mg PO DAILY 08/29/22 08/29/22 History Allergies Allergy/AdvReac Type Severity Reaction Status Date / Time ANJU Inhibitors Allergy Unknown - Verified 08/29/22 13:25 per [facility] doxycycline Allergy Anaphylaxis Verified 08/29/22 13:25 Penicillins Allergy Anaphylaxis, Verified 08/29/22 13:25 Seizure Physical Exam Vitals: Vital Signs Temp Pulse Resp BP Pulse Ox 08/29/22 10:14 98.3 F 89 20 146/73 96 Intake and Output 08/28/22 08/29/22 08/29/22 22:59 06:59 14:59 Other: Weight 112.491 kg -GENERAL: The patient is alert and oriented x3, not in any acute distress. Obese HEENT: Pupils are round and equally reacting to light. EOMI. No scleral icterus. No conjunctival pallor. Normocephalic, atraumatic. No pharyngeal erythema. No thyromegaly. CARDIOVASCULAR: S1 and S2 present. No murmurs, rubs, or gallops. -PULMONARY: Chest is clear to auscultation, no crackles. Bilateral leg wheezing ABDOMEN: Soft, nontender, nondistended, normoactive bowel sounds. No palpable organomegaly. MUSCULOSKELETAL: No joint swelling or deformity. EXTREMITIES: No cyanosis, clubbing, or pedal edema. NEUROLOGICAL: Gross neurological examination did not reveal any focal deficits. SKIN: No rashes. no petechiae. Results CBC & Chem 7: 08/29/22 10:32 08/29/22 10:32 Labs: Abnormal Lab Results - Last 24 Hours (Table) 08/29/22 08/29/22 08/29/22 Range/Units 10:32 10:32 10:32 RDW 16.2 H (11.5-15.5) % Sodium 124 L (137-145) mmol/L Chloride 86 L (98-107) mmol/L Carbon Dioxide 36 H (22-30) mmol/L BUN 7 L (9-20) mg/dL Creatinine 0.53 L (0.66-1.25) mg/dL Glucose 113 H (74-99) mg/dL Calcium 8.1 L (8.4-10.2) mg/dL AST 16 L (17-59) U/L Total Protein 5.9 L (6.3-8.2) g/dL Urine Blood Trace H (Negative) Urine RBC 7 H (0-5) /hpf Assessment and Plan Assessment: Acute COPD exacerbation Hyponatremia, chronic Nicotine dependence Diabetes mellitus Hypertension Hyperlipidemia History of osteoarthritis History of GERD Diabetic neuropathy of feet and hands Chronic back pain Polyarthralgia History of falls History of anxiety and depression, not in activation Plan: Continue with IV steroids, currently Solu-Medrol 60 mg Continue with bronchodilator Pulmonary consult Monitor sodium on palpation of fluid restriction Labs and medication were reviewed.. Continue same treatment. Continue with symptomatic treatment. Resume home medication. Monitor labs and vitals. DVT and GI prophylaxis. Further recommendations as per clinical course of the patient DVT prophylaxis: Eliquis GI Prophylaxis: Pepcid PT/OT: Pending Prognosis is guarded
[2022-08-29] MEDS: methylPREDNISolone SOD SUCCI 125 MG/2 ML VIAL IV SCH (17:50)
[2022-08-29] MEDS: INSULIN ASPART (NovoLOG) 100 UNIT/ML VIAL SQ SCH ×2 (17:50→21:01)
[2022-08-29 20:47] LABS: Glucose,Whole Blood 163 mg/dL (70-110)
[2022-08-29] MEDS: metFORMIN 500 MG TAB PO SCH (20:51)
[2022-08-29] MEDS: GABAPENTIN 100 MG CAP PO SCH (20:51)
[2022-08-29] MEDS: FUROSEMIDE 40 MG TAB PO SCH (20:51)
[2022-08-29] MEDS: APIXABAN 5 MG TAB PO SCH (20:51)
[2022-08-29] MEDS: TAMSULOSIN 0.4 MG CAP.ER.24H PO SCH (20:51)
[2022-08-29] MEDS: ATORVASTATIN 20 MG TAB PO SCH (20:51)
[2022-08-29] MEDS: METOPROLOL TARTRATE 50 MG TAB PO SCH (21:01)
[2022-08-30] MEDS: methylPREDNISolone SOD SUCCI 125 MG/2 ML VIAL IV SCH ×5 (00:17→23:42)
[2022-08-30] MEDS: HYDROcodone/APAP 7.5-325MG 1 EACH TAB PO PRN ×5 (03:12→22:13)
[2022-08-30] MEDS: IPRATROPIUM-ALBUTEROL 3 ML NEB INHALATION SCH ×6 (03:51→22:58)
[2022-08-30 05:55] LABS: Glucose,Whole Blood 191 mg/dL (70-110)
[2022-08-30] MEDS: GABAPENTIN 100 MG CAP PO SCH ×3 (06:21→21:40)
[2022-08-30] MEDS: INSULIN ASPART (NovoLOG) 100 UNIT/ML VIAL SQ SCH ×4 (06:21→21:40)
[2022-08-30 08:53] LABS: Basophils # (A) 0.01 X 10*3/uL (0.00-0.10); Basophils % (A) 0.1 %; Eosinophils # (A) 0 X 10*3/uL (0.04-0.35); Eosinophils % (A) 0 %; HCT 39.1 % (39.6-50.0); HGB 12.9 g/dL (13.0-17.0); Immature Grans, Automated 0.6 %; Lymphocytes # (A) 0.73 X 10*3/uL (0.90-5.00); Lymphocytes % (A) 9.3 %; MCH 29.3 pg (27.0-32.0); MCV 88.7 fL (80.0-97.0); Mean Platelet Volume 10.1 fL (9.5-12.2); Monocytes # (A) 0.18 X 10*3/uL (0.20-1.00); Monocytes % (A) 2.3 %; NRBC Per 100 WBC 0 /100 WBCS (0.0-0.0); Neutrophils # (A) 6.91 X 10*3/uL (1.80-7.70); Neutrophils % (A) 87.7 %; Platelet Count 244 X 10*3/uL (140-440); RBC 4.41 X 10*6/uL (4.40-5.60); RDW 16.1 % (11.5-14.5); WBC 7.88 X 10*3/uL (4.50-10.00)
[2022-08-30] MEDS: APIXABAN 5 MG TAB PO SCH ×2 (08:59→21:40)
[2022-08-30] MEDS: metFORMIN 500 MG TAB PO SCH ×2 (08:59→21:40)
[2022-08-30] MEDS: ESCITALOPRAM 5 MG TAB PO SCH (08:59)
[2022-08-30] MEDS: NICOTINE 21MG/24HR PATCH TRANSDERM SCH (08:59)
[2022-08-30] MEDS: amLODIPine 10 MG TAB PO SCH (08:59)
[2022-08-30] MEDS: METOPROLOL TARTRATE 50 MG TAB PO SCH ×2 (08:59→21:40)
[2022-08-30] MEDS ORDERED: methylPREDNISolone SOD SUCCI 40 MG/ML 1 ML VIAL IV SCH (09:00)
[2022-08-30 09:24] LABS: African American GFR (CKD) 113.2 (60.0-200.0); Anion Gap 9.9 mmol/L (10.00-18.00); BUN/Creat Ratio 18.04 Ratio (12.00-20.00); Blood Urea Nitrogen 11.6 mg/dL (9.0-27.0); Carbon Dioxide 31.8 mmol/L (20.0-27.5); Non-African American GFR(CKD) 97.6 (60.0-200.0); Potassium 4.6 mmol/L (3.5-5.5)
[2022-08-30 11:33] LABS: Glucose,Whole Blood 161 mg/dL (70-110)
[2022-08-30] MEDS: AZITHROMYCIN 500 MG in SODIUM CHLORIDE 0.9% 250 ML IVPB SCH (12:56)
--- NOTE | 2022-08-30 13:27 | P.CNPUL ---
History of Present Illness Consult date: 08/30/22 Requesting physician: Tigre Geiger Reason for consult: dyspnea, COPD Chief complaint: Shortness of breath History of present illness: This is 71-year-old male patient with a history of morbid obesity, diabetes mellitus, atrial fibrillation, hypertension, hyperlipidemia, diabetic neuropathy, anxiety/depression, chronic hypoxemic respiratory failure secondary to chronic obstructive pulmonary disease from chronic tobacco dependence. He has oxygen dependent. He does continue to smoke. He's had multiple admissions for COPD exacerbations. He has not been to our office due to transportation issues according to him. He presented here to the emergency room yesterday with complaints of increasing shortness of breath, cough and congestion. Chest x-ray reveals no acute pulmonary process. White count 7.8. He will 12.9. Platelets 244. Sodium 132. Potassium 4.6. BUN 11. Creatinine 0.6. Verdin virus not detected. Influenza screen negative. ProBNP 233. He is initiated on DuoNeb i nhalations, Pulmicort and Perforomist inhalations, IV Solu-Medrol. Empiric antibiotics in the form of azithromycin. NicoDerm patch applied. He is seen today in consultation on the regular medical floor. He sitting up in bed. Awake and alert in no acute distress. Breathing a bit easier today compared to yesterday. Maintaining good O2 saturations in the 90s on 2 L/m nasal cannula. Review of Systems REVIEW OF SYSTEMS: CONSTITUTIONAL: Denies any recent significant weight loss or weight gain. EYES: Denies change in vision. EARS, NOSE, MOUTH, THROAT: Denies headaches, denies sore throat. CARDIOVASCULAR: Denies chest pain, palpitations or syncopal episodes. RESPIRATORY: Positive for shortness of breath, cough, congestion no hemoptysis. GASTROINTESTINAL: Denies change in appetite, denies abdominal pain GENITOURINARY: Denies hematuria, denies infections. MUSKULOSKELETAL: Denies pain, denies swelling. INTEGUMENTARY: Denies rash, denies eczema. NEUROLOGICAL: Denies recent memory loss, no recent seizure activity. PSYCHIATRIC: Denies anxiety, denies depression. HEMATOLOGIC/LYMPHATIC: Denies anemia, denies enlarged lymph nodes. Past Medical History Past Medical History: Atrial Fibrillation, Asthma, COPD, Diabetes Mellitus, GERD/Reflux, Hyperlipidemia, Hypertension, Osteoarthritis (OA), Pneumonia Additional Past Medical History / Comment(s): Afib RVR, home oxygen prn, bronchitis, pt states he is on metformin to prevent becoming diabetic, neuropathy bilateral feet/L hand, chronic pain back,/bilateral hips/knees/elbows and shoulders, L heel pain, FALLS, cataracts. History of Any Multi-Drug Resistant Organisms: None Reported Past Surgical History: Appendectomy Additional Past Surgical History / Comment(s): Colonoscopy Past Anesthesia/Blood Transfusion Reactions: No Reported Reaction Past Psychological History: Anxiety, Depression Smoking Status: Current every day smoker Past Alcohol Use History: Occasional Past Drug Use History: None Reported - Past Family History Father Family Medical History: Congestive Heart Failure (CHF), COPD Additional Family Medical History / Comment(s): Father was an alcoholic but was able to quit drinking Mother Family Medical History: Congestive Heart Failure (CHF), COPD Additional Family Medical History / Comment(s): Mother was an alcoholic. Daughter(s) Additional Family Medical History / Comment(s): Liver cancer Medications and Allergies Home Medications Medication Instructions Recorded Confirmed Type Albuterol Nebulized [Ventolin 2.5 mg INHALATION RT-Q6H PRN 05/08/20 08/29/22 History Nebulized] Apixaban [Eliquis] 5 mg PO BID #60 tab 07/08/20 08/29/22 Rx Atorvastatin [Lipitor] 20 mg PO HS 01/12/21 08/29/22 History amLODIPine [Norvasc] 10 mg PO DAILY 01/12/21 08/29/22 History Furosemide [Lasix] 40 mg PO BID 05/02/21 08/29/22 History Ipratropium-Albuterol Nebulize 3 ml INHALATION RT-Q6H PRN 05/02/21 08/29/22 History [Duoneb 0.5 mg-3 mg/3 ml Soln] Gabapentin [Neurontin] 100 mg PO BID 12/07/21 08/29/22 History Tamsulosin [Flomax] 0.4 mg PO DAILY 12/07/21 08/29/22 History Albuterol Sulfate [Proair Hfa] 2 puff INHALATION RT-Q6H PRN 02/18/22 08/29/22 History Fluticasone Nasal [place] [Flonase 1 spray EA NOSTRIL Q12H PRN 02/18/22 08/29/22 History Nasal [place]] HYDROcodone/APAP 7.5-325MG [[place] 1 tab PO Q4H PRN 02/18/22 08/29/22 History 7.5-325] Melatonin 3 mg PO HS PRN 02/18/22 08/29/22 History Potassium Chloride [Klor-Con 10 ER] 10 meq PO DAILY 02/18/22 08/29/22 History Theophylline Anhydrous 400 mg PO DAILY 02/18/22 08/29/22 History [Theophylline] Budesonide 0.5 mg INHALATION RT-BID PRN 08/29/22 08/29/22 History Escitalopram [Lexapro] 5 mg PO DAILY 08/29/22 08/29/22 History Omeprazole 40 mg PO DAILY 08/29/22 08/29/22 History Allergies Allergy/AdvReac Type Severity Reaction Status Date / Time ANJU Inhibitors Allergy Unknown - Verified 08/29/22 13:25 per [facility] doxycycline Allergy Anaphylaxis Verified 08/29/22 13:25 Penicillins Allergy Anaphylaxis, Verified 08/29/22 13:25 Seizure Physical Exam Vitals: Vital Signs Temp Pulse Pulse Resp BP Pulse Ox 08/30/22 13:05 85 08/30/22 12:55 86 08/30/22 08:53 84 08/30/22 08:40 84 08/30/22 07:58 98.0 F 75 126/73 97 08/30/22 04:02 84 08/30/22 03:51 84 08/30/22 02:03 97.9 F 85 17 122/71 96 08/29/22 23:31 80 08/29/22 23:18 76 08/29/22 20:52 80 08/29/22 20:32 75 95 08/29/22 20:24 97.9 F 89 18 157/77 94 L 08/29/22 15:20 92 L 08/29/22 15:19 84 18 08/29/22 15:06 83 18 08/29/22 14:57 98.0 F 80 19 135/78 93 L Intake and Output 08/29/22 08/30/22 08/30/22 22:59 06:59 14:59 Other: Voiding Method Toilet Toilet Urinal # Voids 4 GENERAL EXAM: Alert, obese 71-year-old male on 2 L nasal cannula, comfortable in no apparent distress. HEAD: Normocephalic. EYES: Normal reaction of pupils, equal size. NOSE: Clear with pink turbinates. THROAT: No erythema or exudates. NECK: No masses, no JVD. CHEST: No chest wall deformity. LUNGS: Equal air entry with faint end expiratory wheeze, diminished. CVS: S1 and S2 normal with no audible murmur, regular rhythm. ABDOMEN: No hepatosplenomegaly, normal bowel sounds, no guarding or rigidity. SPINE: No scoliosis or deformity SKIN: No rashes CENTRAL NERVOUS SYSTEM: No focal deficits, tone is normal in all 4 extremities. EXTREMITIES: Changes of chronic venous stasis. There is no peripheral edema. No clubbing, no cyanosis. Peripheral pulses are intact. Results - Laboratory Findings CBC and BMP: 08/30/22 05:09 08/30/22 05:09 PT/INR, D-dimer PT 9.5 sec (9.0-12.0) 08/29/22 10:32 INR 0.9 (<1.2) 08/29/22 10:32 Abnormal lab findings: Abnormal Labs 08/29/22 08/29/22 08/29/22 10:32 10:32 10:32 Hgb Hct RDW 16.2 H Immature Gran # Lymphocytes # Monocytes # Eosinophils # Sodium 124 L Chloride 86 L Carbon Dioxide 36 H Anion Gap BUN 7 L Creatinine 0.53 L Glucose 113 H POC Glucose (mg/dL) Calcium 8.1 L AST 16 L Total Protein 5.9 L Urine Blood Trace H Urine RBC 7 H 08/29/22 08/29/22 08/30/22 16:51 20:45 05:09 Hgb 12.9 L Hct 39.1 L RDW 16.1 H Immature Gran # 0.05 H Lymphocytes # 0.73 L Monocytes # 0.18 L Eosinophils # 0 L Sodium Chloride Carbon Dioxide Anion Gap BUN Creatinine Glucose POC Glucose (mg/dL) 221 H 163 H Calcium AST Total Protein Urine Blood Urine RBC 08/30/22 08/30/22 08/30/22 05:09 05:54 11:32 Hgb Hct RDW Immature Gran # Lymphocytes # Monocytes # Eosinophils # Sodium 132 L Chloride 90 L Carbon Dioxide 31.8 H Anion Gap 9.90 L BUN Creatinine Glucose 173 H POC Glucose (mg/dL) 191 H 161 H Calcium AST Total Protein Urine Blood Urine RBC - Diagnostic Findings Chest x-ray: image reviewed (No acute pulmonary process) Assessment and Plan Assessment: Acute exacerbation of chronic obstructive pulmonary disease Acute on chronic hypoxemic respiratory failure secondary to above Chronic and ongoing tobacco dependence of 50+ years Morbid obesity Hypertension Hyperlipidemia Atrial fibrillation, anticoagulated with Eliquis Diabetes mellitus Diabetic neuropathy History of noncompliance History of diastolic congestive heart failure Plan: The patient was seen and evaluated Chest x-ray, labs and medications reviewed Educated regarding the importance of complete smoking cessation NicoDerm patch applied Empiric antibiotics in the form of azithromycin Continue DuoNeb inhalations, Pulmicort and Perforomist inhalations, IV Solu- Medrol Probable discharge in the next 24-48 hours We'll continue to follow and make further recommendations based on his clinical status I have personally seen and examined the patient, performed the documentation and the assessment and plan as written. Number of minutes spent on the visit: 20.
--- NOTE | 2022-08-30 13:28 | P.PN ---
Subjective This is a pleasant 71 years old male with multiple medical problems including COPD he presents because of worsening dyspnea Present because of progressive dyspnea for about 3 weeks, slowly progressive associated with cough and age phlegm as patient is guarded, but denies any current chest pain. Patient states that yesterday he had chest pain for about an hour on his left side but bows. And treated as 0/10. Patient looks pretty comfortable in bed, he denies any headache weakness numbness or dizziness. No abdominal pain vomiting . No urinary complaint Patient admits having little diarrhea for 1 day duration but no fever Patient smokes about 1.5 pack per day he was counseled to quit but he declines and he agrees to nicotine patch At home he is on oxygen at 3 L/m, he states that he follows up with Dr. Robert Ott looks stable and his saturation 94% at 4 L oxygen via nasal cannula CBC is unremarkable, as well as INR. Sodium 124, patient has chronic hyponatremia with range 122-1:30. Creatinine 0.5. Liver enzymes not elevated. Urine analysis is negative. Coronavirus and influenza virus is are negative. EKG showing atrial fibrillation with rate control at [address]-T changes Chest x-ray: No acute cardiopulmonary process Patient is started on IV Solu-Medrol and breathing treatment patient also received 1 L of normal saline in the emergency room 08/30/2022 Patient breathing improving gradually and he's feeling better today Oxygen requirement went down to 2 L/m. Continue with Solu-Medrol, Zithromax added today which looks appropriate Sodium improved to 132 Patient is counseled to quit smoking Possible discharge in 24-40 [facility] if he keeps improving Objective - Vital Signs Vital signs: Vital Signs Temp 98.0 F 08/30/22 07:58 Pulse 85 08/30/22 13:05 Resp 17 08/30/22 02:03 BP 126/73 08/30/22 07:58 Pulse Ox 97 08/30/22 07:58 FiO2 Intake & Output 08/29/22 08/30/22 08/30/22 18:59 06:59 18:59 Weight 112.491 kg Other: Voiding Method Toilet Toilet Urinal # Voids 4 - Exam GENERAL: The patient is alert and oriented x3, not in any acute distress. Well developed, well nourished. HEENT: Pupils are round and equally reacting to light. EOMI. No scleral icterus. No conjunctival pallor. Normocephalic, atraumatic. No pharyngeal erythema. No thyromegaly. CARDIOVASCULAR: S1 and S2 present. No murmurs, rubs, or gallops. PULMONARY: Chest is clear to auscultation, no wheezing or crackles. ABDOMEN: Soft, nontender, nondistended, normoactive bowel sounds. No palpable organomegaly. MUSCULOSKELETAL: No joint swelling or deformity. EXTREMITIES: No cyanosis, clubbing, or pedal edema. NEUROLOGICAL: Gross neurological examination did not reveal any focal deficits. SKIN: No rashes. no petechiae. - Labs CBC & Chem 7: 08/30/22 05:09 08/30/22 05:09 Labs: Abnormal Lab Results - Last 24 Hours (Table) 08/29/22 08/29/22 08/30/22 Range/Units 16:51 20:45 05:09 Hgb 12.9 L (13.0-17.0) g/dL Hct 39.1 L (39.6-50.0) % RDW 16.1 H (11.5-14.5) % Immature Gran # 0.05 H (0.00-0.04) X 10*3/uL Lymphocytes # 0.73 L (0.90-5.00) X 10*3/uL Monocytes # 0.18 L (0.20-1.00) X 10*3/uL Eosinophils # 0 L (0.04-0.35) X 10*3/uL Sodium (135-145) mmol/L Chloride (96-109) mmol/L Carbon Dioxide (20.0-27.5) mmol/L Anion Gap (10.00-18.00) mmol/L Glucose (70-110) mg/dL POC Glucose (mg/dL) 221 H 163 H (70-110) mg/dL 08/30/22 08/30/22 08/30/22 Range/Units 05:09 05:54 11:32 Hgb (13.0-17.0) g/dL Hct (39.6-50.0) % RDW (11.5-14.5) % Immature Gran # (0.00-0.04) X 10*3/uL Lymphocytes # (0.90-5.00) X 10*3/uL Monocytes # (0.20-1.00) X 10*3/uL Eosinophils # (0.04-0.35) X 10*3/uL Sodium 132 L (135-145) mmol/L Chloride 90 L (96-109) mmol/L Carbon Dioxide 31.8 H (20.0-27.5) mmol/L Anion Gap 9.90 L (10.00-18.00) mmol/L Glucose 173 H (70-110) mg/dL POC Glucose (mg/dL) 191 H 161 H (70-110) mg/dL Assessment and Plan Assessment: Acute COPD exacerbation Hyponatremia, chronic Nicotine dependence Diabetes mellitus Hypertension Hyperlipidemia History of osteoarthritis History of GERD Diabetic neuropathy of feet and hands Chronic back pain Polyarthralgia History of falls History of anxiety and depression, not in activation Plan: Continue with IV steroids, currently Solu-Medrol 60 mg Continue with bronchodilator Pulmonary consult Monitor sodium on palpation of fluid restriction Labs and medication were reviewed.. Continue same treatment. Continue with symptomatic treatment. Resume home medication. Monitor labs and vitals. DVT and GI prophylaxis. Further recommendations as per clinical course of the pablo borges DVT prophylaxis: Eliquis GI Prophylaxis: Pepcid PT/OT: Pending Prognosis is guarded
[2022-08-30 16:47] LABS: Glucose,Whole Blood 111 mg/dL (70-110)
[2022-08-30 20:30] LABS: Glucose,Whole Blood 200 mg/dL (70-110)
[2022-08-30] MEDS: FORMOTEROL FUMARATE 20 MCG/2 ML NEBU INHALATION SCH (20:52)
[2022-08-30] MEDS: FUROSEMIDE 40 MG TAB PO SCH (21:40)
[2022-08-30] MEDS: TAMSULOSIN 0.4 MG CAP.ER.24H PO SCH (21:40)
[2022-08-30] MEDS: ATORVASTATIN 20 MG TAB PO SCH (21:40)
[2022-08-31] MEDS: IPRATROPIUM-ALBUTEROL 3 ML NEB INHALATION SCH ×6 (03:43→23:38)
[2022-08-31] MEDS: HYDROcodone/APAP 7.5-325MG 1 EACH TAB PO PRN ×3 (04:29→15:39)
[2022-08-31] MEDS: GABAPENTIN 100 MG CAP PO SCH ×3 (04:29→20:20)
[2022-08-31 05:50] LABS: Glucose,Whole Blood 163 mg/dL (70-110)
[2022-08-31] MEDS: INSULIN ASPART (NovoLOG) 100 UNIT/ML VIAL SQ SCH ×4 (05:59→20:19)
[2022-08-31] MEDS: methylPREDNISolone SOD SUCCI 125 MG/2 ML VIAL IV SCH ×4 (06:00→23:41)
[2022-08-31] MEDS: metFORMIN 500 MG TAB PO SCH ×2 (08:00→20:20)
[2022-08-31] MEDS: ESCITALOPRAM 5 MG TAB PO SCH (08:00)
[2022-08-31] MEDS: amLODIPine 10 MG TAB PO SCH (08:00)
[2022-08-31] MEDS: APIXABAN 5 MG TAB PO SCH ×2 (08:00→20:20)
[2022-08-31] MEDS: METOPROLOL TARTRATE 50 MG TAB PO SCH ×2 (08:00→20:20)
[2022-08-31] MEDS: AZITHROMYCIN 500 MG in SODIUM CHLORIDE 0.9% 250 ML IVPB SCH (08:00)
[2022-08-31] MEDS: NICOTINE 21MG/24HR PATCH TRANSDERM SCH (08:00)
[2022-08-31] MEDS: FORMOTEROL FUMARATE 20 MCG/2 ML NEBU INHALATION SCH ×2 (10:41→19:45)
[2022-08-31 11:44] LABS: Glucose,Whole Blood 129 mg/dL (70-110)
--- NOTE | 2022-08-31 13:08 | P.PN ---
Subjective This is a pleasant 71 years old male with multiple medical problems including COPD he presents because of worsening dyspnea Present because of progressive dyspnea for about 3 weeks, slowly progressive associated with cough and age phlegm as patient is guarded, but denies any current chest pain. Patient states that yesterday he had chest pain for about an hour on his left side but bows. And treated as 0/10. Patient looks pretty comfortable in bed, he denies any headache weakness numbness or dizziness. No abdominal pain vomiting . No urinary complaint Patient admits having little diarrhea for 1 day duration but no fever Patient smokes about 1.5 pack per day he was counseled to quit but he declines and he agrees to nicotine patch At home he is on oxygen at 3 L/m, he states that he follows up with Dr. Robert Ott looks stable and his saturation 94% at 4 L oxygen via nasal cannula CBC is unremarkable, as well as INR. Sodium 124, patient has chronic hyponatremia with range 122-1:30. Creatinine 0.5. Liver enzymes not elevated. Urine analysis is negative. Coronavirus and influenza virus is are negative. EKG showing atrial fibrillation with rate control at [address]-T changes Chest x-ray: No acute cardiopulmonary process Patient is started on IV Solu-Medrol and breathing treatment patient also received 1 L of normal saline in the emergency room 08/30/2022 Patient breathing improving gradually and he's feeling better today Oxygen requirement went down to 2 L/m. Continue with Solu-Medrol, Zithromax added today which looks appropriate Sodium improved to 132 Patient is counseled to quit smoking Possible discharge in 24-40 [facility] if he keeps improving 08/31/2022 Patient still wheezing and filling dyspneic, on exam also has prolonged expiration. He's on 3 L oxygen via nasal cannula which is his home dose. Patient currently on Solu-Medrol 60 mg, oral Zithromax and his home dose of Eliquis. Home health care is ordered for him Objective - Vital Signs Vital signs: Vital Signs Temp 97.6 F 08/31/22 08:00 Pulse 84 08/31/22 10:58 Resp 14 08/31/22 08:00 BP 154/68 08/31/22 08:00 Pulse Ox 97 08/31/22 08:00 FiO2 Intake & Output 08/30/22 08/31/2208/31/22 18:59 06:59 18:59 Other: Voiding Method Toilet Toilet # Voids 4 3 - Exam GENERAL: The patient is alert and oriented x3, not in any acute distress. Well developed, well nourished. HEENT: Pupils are round and equally reacting to light. EOMI. No scleral icterus. No conjunctival pallor. Normocephalic, atraumatic. No pharyngeal erythema. No thyromegaly. CARDIOVASCULAR: S1 and S2 present. No murmurs, rubs, or gallops. PULMONARY: Chest is clear to auscultation, no wheezing or crackles. ABDOMEN: Soft, nontender, nondistended, normoactive bowel sounds. No palpable organomegaly. MUSCULOSKELETAL: No joint swelling or deformity. EXTREMITIES: No cyanosis, clubbing, or pedal edema. NEUROLOGICAL: Gross neurological examination did not reveal any focal deficits. SKIN: No rashes. no petechiae. - Labs CBC & Chem 7: 08/30/22 05:09 08/30/22 05:09 Labs: Abnormal Lab Results - Last 24 Hours (Table) 08/30/22 08/30/22 08/31/22 Range/Units 16:45 20:28 05:49 POC Glucose (mg/dL) 111 H 200 H 163 H (70-110) mg/dL 08/31/22 Range/Units 11:43 POC Glucose (mg/dL) 129 H (70-110) mg/dL Assessment and Plan Assessment: Acute COPD exacerbation Hyponatremia, chronic Nicotine dependence Diabetes mellitus Hypertension Hyperlipidemia History of osteoarthritis History of GERD Diabetic neuropathy of feet and hands Chronic back pain Polyarthralgia History of falls History of anxiety and depression, not in activation Plan: Continue with IV steroids, currently Solu-Medrol 60 mg Continue with bronchodilator Pulmonary consult Monitor sodium on palpation of fluid restriction Labs and medication were reviewed.. Continue same treatment. Continue with symptomatic treatment. Resume home medication. Monitor labs and vitals. DVT and GI prophylaxis. Further recommendations as per clinical course of the patient DVT prophylaxis: Eliquis GI Prophylaxis: Pepcid PT/OT: Pending Prognosis is guarded
--- NOTE | 2022-08-31 13:17 | P.PN ---
Subjective Principal diagnosis: Dyspnea, COPD This is 71-year-old male patient with a history of morbid obesity, diabetes mellitus, atrial fibrillation, hypertension, hyperlipidemia, diabetic neuropathy, anxiety/depression, chronic hypoxemic respiratory failure secondary to chronic obstructive pulmonary disease from chronic tobacco dependence. He has oxygen dependent. He does continue to smoke. He's had multiple admissions for COPD exacerbations. He has not been to our office due to transportation issues according to him. He presented here to the emergency room yesterday with complaints of increasing shortness of breath, cough and congestion. Chest x-ray reveals no acute pulmonary process. White count 7.8. He will 12.9. Platelets 244. Sodium 132. Potassium 4.6. BUN 11. Creatinine 0.6. Verdin virus not detected. Influenza screen negative. ProBNP 233. He is initiated on DuoNeb inhalations, Pulmicort and Perforomist inhalations, IV Solu-Medrol. Empiric antibiotics in the form of azithromycin. NicoDerm patch applied. He is seen today in consultation on the regular medical floor. He sitting up in bed. Awake and alert in no acute distress. Breathing a bit easier today compared to yesterday. Maintaining good O2 saturations in the 90s on 2 L/m nasal cannula. I'm evaluating this patient today on 08/31/2022. He appears quite comfortable lying in bed. He is maintained on 3 L nasal cannula. Denies any significant shortness of breath or fevers. No new CBC or BMP today. Most recent chest x- ray from 08/29/2022 revealed no acute cardiopulmonary process. Patient is maintained on DuoNeb inhalations every 4 hours, budesonide inhalation twice a day, and Perforomist. He is also receiving IV Solu-Medrol. She is empirically covered with Zithromax. Patient does have history of atrial fibrillation and is anticoagulated on Eliquis. Vital signs are stable. Objective - Vital Signs Vital signs: Vital Signs Temp 97.6 F 08/31/22 08:00 Pulse 84 08/31/22 10:58 Resp 14 08/31/22 08:00 BP 154/68 08/31/22 08:00 Pulse Ox 97 08/31/22 08:00 FiO2 Intake & Output 08/30/22 08/31/22 08/31/22 18:59 06:59 18:59 Other: Voiding Method Toilet Toilet # Voids 4 3 - Exam GENERAL EXAM: Alert, obese male, appears stated age, comfortable in no apparent distress. HEAD: Normocephalic. EYES: Normal reaction of pupils, equal size. NOSE: Clear with pink turbinates. THROAT: No erythema or exudates. NECK: No masses, no JVD. CHEST: No chest wall deformity. LUNGS: Equal air entry with no crackles, rhonchi or dullness. There are faint expiratory wheezes throughout. Increase aeration. CVS: S1 and S2 normal with no audible murmur, irregular rhythm. ABDOMEN: No hepatosplenomegaly, normal bowel sounds, no guarding or rigidity. SPINE: No scoliosis or deformity SKIN: No rashes CENTRAL NERVOUS SYSTEM: No focal deficits, tone is normal in all 4 extremities. EXTREMITIES: There is no peripheral edema. No clubbing, no cyanosis. Peripheral pulses are intact. - Labs CBC & Chem 7: 08/30/22 05:09 08/30/22 05:09 Labs: Abnormal Lab Results - Last 24 Hours (Table) 08/30/22 08/30/22 08/31/22 Range/Units 16:45 20:28 05:49 POC Glucose (mg/dL) 111 H 200 H 163 H (70-110) mg/dL 08/31/22 Range/Units 11:43 POC Glucose (mg/dL) 129 H (70-110) mg/dL Assessment and Plan Assessment: Acute exacerbation of chronic obstructive pulmonary disease Acute on chronic hypoxemic respiratory failure secondary to above Chronic and ongoing tobacco dependence of 50+ years Morbid obesity Hypertension Hyperlipidemia Atrial fibrillation, anticoagulated with Eliquis Diabetes mellitus Diabetic neuropathy History of noncompliance History of diastolic congestive heart failure Plan: The patient was seen and evaluated Chest x-ray, labs and medications reviewed Educated regarding the importance of complete smoking cessation NicoDerm patch applied Empiric antibiotics in the form of Zithromax Continue DuoNeb inhalations, Pulmicort and Perforomist inhalations, IV Solu- Medrol Probable discharge in the next 24-48 hours We'll continue to follow and make further recommendations based on his clinical status I have personally seen and examined the patient, performed the documentation and the assessment and plan as written. Number of minutes spent on the visit: [10 ]. Time with Patient: Less than 30
[2022-08-31 15:59] LABS: Glucose,Whole Blood 234 mg/dL (70-110)
[2022-08-31] MEDS: BUDESONIDE 1 MG/2 ML NEBU INHALATION SCH (19:45)
[2022-08-31 19:49] LABS: Glucose,Whole Blood 167 mg/dL (70-110)
[2022-08-31] MEDS: MELATONIN 3 MG TABLET PO PRN (20:19)
[2022-08-31] MEDS: TAMSULOSIN 0.4 MG CAP.ER.24H PO SCH (20:19)
[2022-08-31] MEDS: FUROSEMIDE 40 MG TAB PO SCH (20:20)
[2022-08-31] MEDS: ATORVASTATIN 20 MG TAB PO SCH (20:20)
[2022-09-01] MEDS: HYDROcodone/APAP 7.5-325MG 1 EACH TAB PO PRN ×4 (03:05→20:23)
[2022-09-01] MEDS: IPRATROPIUM-ALBUTEROL 3 ML NEB INHALATION SCH ×5 (03:10→20:53)
[2022-09-01] MEDS: GABAPENTIN 100 MG CAP PO SCH ×3 (05:24→20:23)
[2022-09-01] MEDS: methylPREDNISolone SOD SUCCI 125 MG/2 ML VIAL IV SCH ×3 (05:24→17:54)
[2022-09-01 05:55] LABS: Glucose,Whole Blood 178 mg/dL (70-110)
[2022-09-01] MEDS: INSULIN ASPART (NovoLOG) 100 UNIT/ML VIAL SQ SCH ×4 (06:09→22:03)
[2022-09-01] MEDS: BUDESONIDE 1 MG/2 ML NEBU INHALATION SCH ×2 (07:21→20:53)
[2022-09-01] MEDS: FORMOTEROL FUMARATE 20 MCG/2 ML NEBU INHALATION SCH ×2 (07:21→20:53)
[2022-09-01] MEDS: ESCITALOPRAM 5 MG TAB PO SCH (09:02)
[2022-09-01] MEDS: APIXABAN 5 MG TAB PO SCH ×2 (09:02→20:23)
[2022-09-01] MEDS: AZITHROMYCIN 500 MG in SODIUM CHLORIDE 0.9% 250 ML IVPB SCH (09:02)
[2022-09-01] MEDS: METOPROLOL TARTRATE 50 MG TAB PO SCH ×2 (09:02→20:23)
[2022-09-01] MEDS: NICOTINE 21MG/24HR PATCH TRANSDERM SCH (09:03)
[2022-09-01] MEDS: amLODIPine 10 MG TAB PO SCH (09:03)
[2022-09-01] MEDS: metFORMIN 500 MG TAB PO SCH ×2 (09:03→20:23)
[2022-09-01 11:42] LABS: Glucose,Whole Blood 188 mg/dL (70-110)
--- NOTE | 2022-09-01 14:30 | P.PN ---
Subjective This is a pleasant 71 years old male with multiple medical problems including COPD he presents because of worsening dyspnea Present because of progressive dyspnea for about 3 weeks, slowly progressive associated with cough and age phlegm as patient is guarded, but denies any current chest pain. Patient states that yesterday he had chest pain for about an hour on his left side but bows. And treated as 0/10. Patient looks pretty comfortable in bed, he denies any headache weakness numbness or dizziness. No abdominal pain vomiting . No urinary complaint Patient admits having little diarrhea for 1 day duration but no fever Patient smokes about 1.5 pack per day he was counseled to quit but he declines and he agrees to nicotine patch At home he is on oxygen at 3 L/m, he states that he follows up with Dr. Robert Ott looks stable and his saturation 94% at 4 L oxygen via nasal cannula CBC is unremarkable, as well as INR. Sodium 124, patient has chronic hyponatremia with range 122-1:30. Creatinine 0.5. Liver enzymes not elevated. Urine analysis is negative. Coronavirus and influenza virus is are negative. EKG showing atrial fibrillation with rate control at [address]-T changes Chest x-ray: No acute cardiopulmonary process Patient is started on IV Solu-Medrol and breathing treatment patient also received 1 L of normal saline in the emergency room 08/30/2022 Patient breathing improving gradually and he's feeling better today Oxygen requirement went down to 2 L/m. Continue with Solu-Medrol, Zithromax added today which looks appropriate Sodium improved to 132 Patient is counseled to quit smoking Possible discharge in 24-40 [facility] if he keeps improving 08/31/2022 Patient still wheezing and filling dyspneic, on exam also has prolonged expiration. He's on 3 L oxygen via nasal cannula which is his home dose. Patient currently on Solu-Medrol 60 mg, oral Zithromax and his home dose of Eliquis. Home health care is ordered for him 09/01/2022 Patient still significantly wheezing and shortness of breath, he is in the 3 L oxygen He remains on the same treatment of IV Solu-Medrol and Zithromax Patient slept better after increasing his melatonin to 9 mg upon his request. He requested Valium, MAPS was checked last time he received Valium was on June more than 2 months ago, Xanax effort anesthetic and he declines. I explained for the patient Valium has more risk than benefit and he agrees to hold for now Objective - Vital Signs Vital signs: Vital Signs Temp 98.1 F 09/01/22 07:43 Pulse 86 09/01/22 11:31 Resp 20 09/01/22 07:43 BP 158/74 09/01/22 07:43 Pulse Ox 96 09/01/22 09:46 FiO2 Intake & Output 08/31/22 09/01/22 09/01/22 18:59 06:59 18:59 Intake Total 1080 400 Balance 1080 400 Intake: Oral 1080 400 Other: Voiding Method Toilet # Voids 3 # Bowel Movements 0 - Exam GENERAL: The patient is alert and oriented x3, not in any acute distress. Well developed, well nourished. HEENT: Pupils are round and equally reacting to light. EOMI. No scleral icterus. No conjunctival pallor. Normocephalic, atraumatic. No pharyngeal erythema. No thyromegaly. CARDIOVASCULAR: S1 and S2 present. No murmurs, rubs, or gallops. PULMONARY: Chest is clear to auscultation, no wheezing or crackles. ABDOMEN: Soft, nontender, nondistended, normoactive bowel sounds. No palpable organomegaly. MUSCULOSKELETAL: No joint swelling or deformity. EXTREMITIES: No cyanosis, clubbing, or pedal edema. NEUROLOGICAL: Gross neurological examination did not reveal any focal deficits. SKIN: No rashes. no petechiae. - Labs CBC & Chem 7: 08/30/22 05:09 08/30/22 05:09 Labs: Abnormal Lab Results - Last 24 Hours (Table) 08/31/22 08/31/22 09/01/22 Range/Units 15:58 19:43 05:54 POC Glucose (mg/dL) 234 H 167 H 178 H (70-110) mg/dL 09/01/22 Range/Units 11:41 POC Glucose (mg/dL) 188 H (70-110) mg/dL Assessment and Plan Assessment: Acute COPD exacerbation Hyponatremia, chronic Nicotine dependence Diabetes mellitus Hypertension Hyperlipidemia History of osteoarthritis History of GERD Diabetic neuropathy of feet and hands Chronic back pain Polyarthralgia History of falls History of anxiety and depression, not in activation Plan: Continue with IV steroids, currently Solu-Medrol 60 mg Continue with bronchodilator Pulmonary consult Monitor sodium on palpation of fluid restriction Labs and medication were reviewed.. Continue same treatment. Continue with symptomatic treatment. Resume home medication. Monitor labs and vitals. DVT and GI prophylaxis. Further recommendations as per clinical course of the patient DVT prophylaxis: Eliquis GI Prophylaxis: Pepcid PT/OT: Pending Prognosis is guarded
--- NOTE | 2022-09-01 15:07 | P.PN ---
Subjective Progress Note Date: 09/01/22 Principal diagnosis: Dyspnea, COPD This is 71-year-old male patient with a history of morbid obesity, diabetes mellitus, atrial fibrillation, hypertension, hyperlipidemia, diabetic neuropathy, anxiety/depression, chronic hypoxemic respiratory failure secondary to chronic obstructive pulmonary disease from chronic tobacco dependence. He has oxygen dependent. He does continue to smoke. He's had multiple admissions for COPD exacerbations. He has not been to our office due to transportation issues according to him. He presented here to the emergency room yesterday with complaints of increasing shortness of breath, cough and congestion. Chest x-ray reveals no acute pulmonary process. White count 7.8. He will 12.9. Platelets 244. Sodium 132. Potassium 4.6. BUN 11. Creatinine 0.6. Verdin virus not detected. Influenza screen negative. ProBNP 233. He is initiated on DuoNeb inhalations, Pulmicort and Perforomist inhalations, IV Solu-Medrol. Empiric antibiotics in the form of azithromycin. NicoDerm patch applied. He is seen today in consultation on the regular medical floor. He sitting up in bed. Awake and alert in no acute distress. Breathing a bit easier today compared to yesterday. Maintaining good O2 saturations in the 90s on 2 L/m nasal cannula. I'm evaluating this patient today on 08/31/2022. He appears quite comfortable lying in bed. He is maintained on 3 L nasal cannula. Denies any significant shortness of breath or fevers. No new CBC or BMP today. Most recent chest x- ray from 08/29/2022 revealed no acute cardiopulmonary process. Patient is maintained on DuoNeb inhalations every 4 hours, budesonide inhalation twice a day, and Perforomist. He is also receiving IV Solu-Medrol. She is empirically covered with Zithromax. Patient does have history of atrial fibrillation and is anticoagulated on Eliquis. Vital signs are stable. Normal I'm reevaluating this patient today on 09/01/2022. He appears fairly comfortable in bed, however, his oxygen requirements have increased. He is currently maintained on 8 L nasal cannula. Denies significant shortness of breath or fevers. No new labs today. No new chest x-ray today. Continues to be maintained on DuoNeb inhalations, budesonide inhalation, and Perforomist inhalation. Continues to receive IV Solu-Medrol. Course of Zithromax has been completed. Continues to be anticoagulated with Eliquis 2 history of A. fib. Being diuresed with 40 mg by mouth Lasix daily. Does not appear there is accurate intake and output documentation. Vital signs are stable. Objective - Vital Signs Vital signs: Vital Signs Temp 98.1 F 09/01/22 14:35 Pulse 80 09/01/22 14:35 Resp 18 09/01/22 14:35 BP 123/78 09/01/22 14:35 Pulse Ox 98 09/01/22 14:35 FiO2 Intake & Output 08/31/22 09/01/22 09/01/22 18:59 06:59 18:59 Intake Total 1080 400 Balance 1080 400 Intake: Oral 1080 400 Other: Voiding Method Toilet # Voids 3 # Bowel Movements 0 - Exam GENERAL EXAM: Alert, obese male, appears stated age, comfortable in no apparent distress. HEAD: Normocephalic. EYES: Normal reaction of pupils, equal size. NOSE: Clear with pink turbinates. THROAT: No erythema or exudates. NECK: No masses, no JVD. CHEST: No chest wall deformity. LUNGS: Equal air entry with no crackles, rhonchi or dullness. There are faint expiratory wheezes throughout. Increase aeration. CVS: S1 and S2 normal with no audible murmur, irregular rhythm. ABDOMEN: No hepatosplenomegaly, normal bowel sounds, no guarding or rigidity. SPINE: No scoliosis or deformity SKIN: No rashes CENTRAL NERVOUS SYSTEM: No focal deficits, tone is normal in all 4 extremities. EXTREMITIES: There is no peripheral edema. No clubbing, no cyanosis. Peripheral pulses are intact. - Labs CBC & Chem 7: 08/30/22 05:09 08/30/22 05:09 Labs: Abnormal Lab Results - Last 24 Hours (Table) 08/31/22 08/31/22 09/01/22 Range/Units 15:58 19:43 05:54 POC Glucose (mg/dL) 234 H 167 H 178 H (70-110) mg/dL 09/01/22 Range/Units 11:41 POC Glucose (mg/dL) 188 H (70-110) mg/dL Assessment and Plan Assessment: Acute exacerbation of chronic obstructive pulmonary disease Acute on chronic hypoxemic respiratory failure secondary to above Chronic and ongoing tobacco dependence of 50+ years hyponatremia Morbid obesity Hypertension Hyperlipidemia Atrial fibrillation, anticoagulated with Eliquis Diabetes mellitus Diabetic neuropathy History of noncompliance History of diastolic congestive heart failure Plan: The patient was seen and evaluated Educated regarding the importance of complete smoking cessation NicoDerm patch applied Course of Zithromax completed Continue DuoNeb inhalations, Pulmicort and Perforomist inhalations, IV Solu- Medrol Hyponatremia improved, last serum sodium level 132. Probable discharge in the next 24-48 hours We'll continue to follow and make further recommendations based on his clinical status I have personally seen and examined the patient, performed the documentation and the assessment and plan as written. Number of minutes spent on the visit: [10 ]. Time with Patient: Less than 30
[2022-09-01 16:49] LABS: Glucose,Whole Blood 144 mg/dL (70-110)
[2022-09-01 19:24] LABS: Glucose,Whole Blood 254 mg/dL (70-110)
[2022-09-01] MEDS: ATORVASTATIN 20 MG TAB PO SCH (20:23)
[2022-09-01] MEDS: MELATONIN 3 MG TABLET PO PRN (20:23)
[2022-09-01] MEDS: TAMSULOSIN 0.4 MG CAP.ER.24H PO SCH (20:23)
[2022-09-01] MEDS: FUROSEMIDE 40 MG TAB PO SCH (20:23)
[2022-09-01 21:51] LABS: Glucose,Whole Blood 206 mg/dL (70-110)
[2022-09-02] MEDS: methylPREDNISolone SOD SUCCI 125 MG/2 ML VIAL IV SCH ×4 (00:09→18:02)
[2022-09-02] MEDS: HYDROcodone/APAP 7.5-325MG 1 EACH TAB PO PRN ×4 (00:10→16:27)
[2022-09-02] MEDS: IPRATROPIUM-ALBUTEROL 3 ML NEB INHALATION SCH ×6 (01:38→21:40)
[2022-09-02 06:11] LABS: Glucose,Whole Blood 153 mg/dL (70-110)
[2022-09-02] MEDS: INSULIN ASPART (NovoLOG) 100 UNIT/ML VIAL SQ SCH ×4 (07:15→19:56)
[2022-09-02] MEDS: GABAPENTIN 100 MG CAP PO SCH ×3 (07:15→19:56)
[2022-09-02] MEDS: BUDESONIDE 1 MG/2 ML NEBU INHALATION SCH ×2 (07:53→21:40)
[2022-09-02] MEDS: FORMOTEROL FUMARATE 20 MCG/2 ML NEBU INHALATION SCH ×2 (07:53→21:40)
[2022-09-02 09:11] LABS: African American GFR (CKD) 109.3 (60.0-200.0); Anion Gap 8.9 mmol/L (10.00-18.00); BUN/Creat Ratio 26.29 Ratio (12.00-20.00); Blood Urea Nitrogen 18.4 mg/dL (9.0-27.0); Calcium 8.9 mg/dL (8.7-10.3); Carbon Dioxide 33.1 mmol/L (20.0-27.5); Non-African American GFR(CKD) 94.3 (60.0-200.0); Potassium 4.5 mmol/L (3.5-5.5)
[2022-09-02] MEDS ORDERED: guaiFENesin-DM 600/30MG 1 EACH TAB.ER.12H PO PRN (09:20)
[2022-09-02] MEDS: APIXABAN 5 MG TAB PO SCH ×2 (09:35→19:56)
[2022-09-02] MEDS: metFORMIN 500 MG TAB PO SCH ×2 (09:35→19:56)
[2022-09-02] MEDS: amLODIPine 10 MG TAB PO SCH (09:35)
[2022-09-02] MEDS: ESCITALOPRAM 5 MG TAB PO SCH (09:35)
[2022-09-02] MEDS: METOPROLOL TARTRATE 50 MG TAB PO SCH ×2 (09:35→19:56)
[2022-09-02] MEDS: NICOTINE 21MG/24HR PATCH TRANSDERM SCH (09:36)
[2022-09-02 10:52] LABS: Glucose,Whole Blood 174 mg/dL (70-110)
[2022-09-02] MEDS: LEVOFLOXACIN 750 MG TAB PO SCH (11:10)
--- NOTE | 2022-09-02 12:49 | P.PN ---
Subjective Progress Note Date: 09/02/22 Principal diagnosis: Dyspnea, COPD This is 71-year-old male patient with a history of morbid obesity, diabetes mellitus, atrial fibrillation, hypertension, hyperlipidemia, diabetic neuropathy, anxiety/depression, chronic hypoxemic respiratory failure secondary to chronic obstructive pulmonary disease from chronic tobacco dependence. He has oxygen dependent. He does continue to smoke. He's had multiple admissions for COPD exacerbations. He has not been to our office due to transportation issues according to him. He presented here to the emergency room yesterday with complaints of increasing shortness of breath, cough and congestion. Chest x-ray reveals no acute pulmonary process. White count 7.8. He will 12.9. Platelets 244. Sodium 132. Potassium 4.6. BUN 11. Creatinine 0.6. Verdin virus not detected. Influenza screen negative. ProBNP 233. He is initiated on DuoNeb inhalations, Pulmicort and Perforomist inhalations, IV Solu-Medrol. Empiric antibiotics in the form of azithromycin. NicoDerm patch applied. He is seen today in consultation on the regular medical floor. He sitting up in bed. Awake and alert in no acute distress. Breathing a bit easier today compared to yesterday. Maintaining good O2 saturations in the 90s on 2 L/m nasal cannula. I'm evaluating this patient today on 08/31/2022. He appears quite comfortable lying in bed. He is maintained on 3 L nasal cannula. Denies any significant shortness of breath or fevers. No new CBC or BMP today. Most recent chest x- ray from 08/29/2022 revealed no acute cardiopulmonary process. Patient is maintained on DuoNeb inhalations every 4 hours, budesonide inhalation twice a day, and Perforomist. He is also receiving IV Solu-Medrol. She is empirically covered with Zithromax. Patient does have history of atrial fibrillation and is anticoagulated on Eliquis. Vital signs are stable. Normal I'm reevaluating this patient today on 09/01/2022. He appears fairly comfortable in bed, however, his oxygen requirements have increased. He is currently maintained on 8 L nasal cannula. Denies significant shortness of breath or fevers. No new labs today. No new chest x-ray today. Continues to be maintained on DuoNeb inhalations, budesonide inhalation, and Perforomist inhalation. Continues to receive IV Solu-Medrol. Course of Zithromax has been completed. Continues to be anticoagulated with Eliquis 2 history of A. fib. Being diuresed with 40 mg by mouth Lasix daily. Does not appear there is accurate intake and output documentation. Vital signs are stable. Reevaluating this patient today on 09/02/2022. He appears comfortable and then, and his oxygen requirements have decreased. He is currently on 3 L nasal cannula. He denies any significant shortness of breath or fevers. He continues to have a nonproductive, congested cough. We are continuing DuoNeb inhalations, budesonide inhalation, Perforomist inhalation. Continues on Solu-Medrol. has been diuresed with Lasix 40 mg daily. BMP from today shows a sodium of 135, potassium 4.5, chloride 93, serum CO2 33, BUN 18, creatinine 0.7. Anticoagulated on Eliquis. Vital signs remained stable, and heart rate is controlled at 88 bpm. Objective - Vital Signs Vital signs: Vital Signs Temp 97.9 F 09/02/22 08:00 Pulse 82 09/02/22 12:06 Resp 16 09/02/22 08:00 BP 117/70 09/02/22 08:00 Pulse Ox 96 09/02/22 08:00 FiO2 Intake & Output 09/01/22 09/02/22 09/02/22 18:59 06:59 18:59 Other: Voiding Method Toilet # Voids 3 1 - Exam GENERAL EXAM: Alert, obese male, appears stated age, comfortable in no apparent distress. HEAD: Normocephalic. EYES: Normal reaction of pupils, equal size. NOSE: Clear with pink turbinates. THROAT: No erythema or exudates. NECK: No masses, no JVD. CHEST: No chest wall deformity. LUNGS: Equal air entry with no crackles, rhonchi or dullness. There are expirahertory wheezes throughout. There is a congested nonproductive cough. CVS: S1 and S2 normal with no audible murmur, irregular rhythm. ABDOMEN: No hepatosplenomegaly, normal bowel sounds, no guarding or rigidity. SPINE: No scoliosis or deformity SKIN: No rashes CENTRAL NERVOUS SYSTEM: No focal deficits, tone is normal in all 4 extremities. EXTREMITIES: There is no peripheral edema. No clubbing, no cyanosis. Peripheral pulses are intact. - Labs CBC & Chem 7: 08/30/22 05:09 09/02/22 05:55 Labs: Abnormal Lab Results - Last 24 Hours (Table) 09/01/22 09/01/22 09/01/22 Range/Units 16:48 19:20 21:50 Chloride (96-109) mmol/L Carbon Dioxide (20.0-27.5) mmol/L Anion Gap (10.00-18.00) mmol/L BUN/Creatinine Ratio (12.00-20.00) Ratio Glucose (70-110) mg/dL POC Glucose (mg/dL) 144 H 254 H 206 H (70-110) mg/dL 09/02/22 09/02/22 09/02/22 Range/Units 05:55 06:10 10:51 Chloride 93 L (96-109) mmol/L Carbon Dioxide 33.1 H (20.0-27.5) mmol/L Anion Gap 8.90 L (10.00-18.00) mmol/L BUN/Creatinine Ratio 26.29 H (12.00-20.00) Ratio Glucose 155 H (70-110) mg/dL POC Glucose (mg/dL) 153 H 174 H (70-110) mg/dL Assessment and Plan Assessment: Acute exacerbation of chronic obstructive pulmonary disease Acute on chronic hypoxemic respiratory failure secondary to above Chronic and ongoing tobacco dependence of 50+ years hyponatremia improved Morbid obesity Hypertension Hyperlipidemia Atrial fibrillation, anticoagulated with Eliquis Diabetes mellitus Diabetic neuropathy History of noncompliance History of diastolic congestive heart failure. Stable receiving home dose of Lasix. Plan: The patient was seen and evaluated May consider bronchoscopy if no improvement in 24-48 hours. Will add Levaquin We will add Mucinex and flutter valve Continue DuoNeb inhalations, Pulmicort and Perforomist inhalations, IV Solu- Medrol Educated regarding the importance of complete smoking cessation NicoDerm patch applied Hyponatremia improved, last serum sodium level 135. We'll continue to follow and make further recommendations based on his clinical status I have personally seen and examined the patient, performed the documentation and the assessment and plan as written. Number of minutes spent on the visit: [10 ]. Time with Patient: Less than 30
[2022-09-02 16:46] LABS: Glucose,Whole Blood 176 mg/dL (70-110)
[2022-09-02 19:48] LABS: Glucose,Whole Blood 209 mg/dL (70-110)
[2022-09-02] MEDS: FUROSEMIDE 40 MG TAB PO SCH (19:56)
[2022-09-02] MEDS: MELATONIN 3 MG TABLET PO PRN (19:56)
[2022-09-02] MEDS: TAMSULOSIN 0.4 MG CAP.ER.24H PO SCH (19:56)
[2022-09-02] MEDS: ATORVASTATIN 20 MG TAB PO SCH (19:56)
[2022-09-03] MEDS: methylPREDNISolone SOD SUCCI 125 MG/2 ML VIAL IV SCH ×4 (00:29→18:10)
[2022-09-03] MEDS: IPRATROPIUM-ALBUTEROL 3 ML NEB INHALATION SCH ×7 (00:58→23:46)
[2022-09-03] MEDS: HYDROcodone/APAP 7.5-325MG 1 EACH TAB PO PRN ×3 (05:40→16:52)
[2022-09-03] MEDS: GABAPENTIN 100 MG CAP PO SCH ×3 (05:40→20:15)
[2022-09-03 05:55] LABS: Glucose,Whole Blood 179 mg/dL (70-110)
[2022-09-03] MEDS: INSULIN ASPART (NovoLOG) 100 UNIT/ML VIAL SQ SCH ×4 (06:23→20:15)
[2022-09-03 08:13] VITALS: BMI 33.6
[2022-09-03] MEDS: metFORMIN 500 MG TAB PO SCH ×2 (08:45→20:15)
[2022-09-03] MEDS: ESCITALOPRAM 5 MG TAB PO SCH (08:45)
[2022-09-03] MEDS: NICOTINE 21MG/24HR PATCH TRANSDERM SCH (08:45)
[2022-09-03] MEDS: amLODIPine 10 MG TAB PO SCH (08:45)
[2022-09-03] MEDS: METOPROLOL TARTRATE 50 MG TAB PO SCH ×2 (08:45→20:14)
[2022-09-03] MEDS: APIXABAN 5 MG TAB PO SCH ×2 (08:45→20:14)
[2022-09-03] MEDS: LEVOFLOXACIN 750 MG TAB PO SCH (08:45)
[2022-09-03] MEDS: FORMOTEROL FUMARATE 20 MCG/2 ML NEBU INHALATION SCH ×2 (08:57→20:43)
[2022-09-03] MEDS: BUDESONIDE 1 MG/2 ML NEBU INHALATION SCH ×2 (08:57→20:43)
--- NOTE | 2022-09-03 09:08 | P.PN ---
Subjective This is a pleasant 71 years old male with multiple medical problems including COPD he presents because of worsening dyspnea Present because of progressive dyspnea for about 3 weeks, slowly progressive associated with cough and age phlegm as patient is guarded, but denies any current chest pain. Patient states that yesterday he had chest pain for about an hour on his left side but bows. And treated as 0/10. Patient looks pretty comfortable in bed, he denies any headache weakness numbness or dizziness. No abdominal pain vomiting . No urinary complaint Patient admits having little diarrhea for 1 day duration but no fever Patient smokes about 1.5 pack per day he was counseled to quit but he declines and he agrees to nicotine patch At home he is on oxygen at 3 L/m, he states that he follows up with Dr. Robert Ott looks stable and his saturation 94% at 4 L oxygen via nasal cannula CBC is unremarkable, as well as INR. Sodium 124, patient has chronic hyponatremia with range 122-1:30. Creatinine 0.5. Liver enzymes not elevated. Urine analysis is negative. Coronavirus and influenza virus is are negative. EKG showing atrial fibrillation with rate control at [address]-T changes Chest x-ray: No acute cardiopulmonary process Patient is started on IV Solu-Medrol and breathing treatment patient also received 1 L of normal saline in the emergency room 08/30/2022 Patient breathing improving gradually and he's feeling better today Oxygen requirement went down to 2 L/m. Continue with Solu-Medrol, Zithromax added today which looks appropriate Sodium improved to 132 Patient is counseled to quit smoking Possible discharge in 24-40 [facility] if he keeps improving 08/31/2022 Patient still wheezing and filling dyspneic, on exam also has prolonged expiration. He's on 3 L oxygen via nasal cannula which is his home dose. Patient currently on Solu-Medrol 60 mg, oral Zithromax and his home dose of Eliquis. Home health care is ordered for him 09/01/2022 Patient still significantly wheezing and shortness of breath, he is in the 3 L oxygen He remains on the same treatment of IV Solu-Medrol and Zithromax Patient slept better after increasing his melatonin to 9 mg upon his request. He requested Valium, MAPS was checked last time he received Valium was on June more than 2 months ago, Xanax effort anesthetic and he declines. I explained for the patient Valium has more risk than benefit and he agrees to hold for now 09/02/2022 Patient with no significant improvement, still complain from dyspnea and wheezing. Is currently on IV Solu-Medrol and antibiotic with Levaquin. Continue with present treatment He is at baseline of oxygen requirement of 3 L/m Sodium improved to 135 Objective - Vital Signs Vital signs: Vital Signs Temp 98.1 F 09/02/22 13:33 Pulse 94 09/02/22 13:33 Resp 16 09/02/22 13:33 BP 118/60 09/02/22 13:33 Pulse Ox 98 09/02/22 13:33 FiO2 Intake & Output 09/01/22 09/02/22 09/02/22 18:59 06:59 18:59 Other: Voiding Method Toilet # Voids 3 1 - Exam GENERAL: The patient is alert and oriented x3, not in any acute distress. Well developed, well nourished. HEENT: Pupils are round and equally reacting to light. EOMI. No scleral icterus. No conjunctival pallor. Normocephalic, atraumatic. No pharyngeal erythema. No thyromegaly. CARDIOVASCULAR: S1 and S2 present. No murmurs, rubs, or gallops. PULMONARY: Chest is clear to auscultation, no wheezing or crackles. ABDOMEN: Soft, nontender, nondistended, normoactive bowel sounds. No palpable organomegaly. MUSCULOSKELETAL: No joint swelling or deformity. EXTREMITIES: No cyanosis, clubbing, or pedal edema. NEUROLOGICAL: Gross neurological examination did not reveal any focal deficits. SKIN: No rashes. no petechiae. - Labs CBC & Chem 7: 08/30/22 05:09 09/02/22 05:55 Labs: Abnormal Lab Results - Last 24 Hours (Table) 09/01/22 09/01/22 09/01/22 Range/Units 16:48 19:20 21:50 Chloride (96-109) mmol/L Carbon Dioxide (20.0-27.5) mmol/L Anion Gap (10.00-18.00) mmol/L BUN/Creatinine Ratio (12.00-20.00) Ratio Glucose (70-110) mg/dL POC Glucose (mg/dL) 144 H 254 H 206 H (70-110) mg/dL 09/02/22 09/02/22 09/02/22 Range/Units 05:55 06:10 10:51 Chloride 93 L (96-109) mmol/L Carbon Dioxide 33.1 H (20.0-27.5) mmol/L Anion Gap 8.90 L (10.00-18.00) mmol/L BUN/Creatinine Ratio 26.29 H (12.00-20.00) Ratio Glucose 155 H (70-110) mg/dL POC Glucose (mg/dL) 153 H 174 H (70-110) mg/dL Assessment and Plan Assessment: Acute COPD exacerbation Hyponatremia, chronic Nicotine dependence Diabetes mellitus Hypertension Hyperlipidemia History of osteoarthritis History of GERD Diabetic neuropathy of feet and hands Chronic back pain Polyarthralgia History of falls History of anxiety and depression, not in activation Plan: Continue with IV steroids, currently Solu-Medrol 60 mg Continue with bronchodilator Pulmonary consult Continue with antibiotic Labs and medication were reviewed.. Continue same treatment. Continue with s ymptomatic treatment. Resume home medication. Monitor labs and vitals. DVT and GI prophylaxis. Further recommendations as per clinical course of the patient DVT prophylaxis: Eliquis GI Prophylaxis: Pepcid PT/OT: Pending Prognosis is guarded
[2022-09-03 11:46] LABS: Glucose,Whole Blood 146 mg/dL (70-110)
--- NOTE | 2022-09-03 12:08 | P.PN ---
Subjective Progress Note Date: 09/03/22 This is 71-year-old male patient with a history of morbid obesity, diabetes mellitus, atrial fibrillation, hypertension, hyperlipidemia, diabetic neuropathy, anxiety/depression, chronic hypoxemic respiratory failure secondary to chronic obstructive pulmonary disease from chronic tobacco dependence. He goldstein s oxygen dependent. He does continue to smoke. He's had multiple admissions for COPD exacerbations. He has not been to our office due to transportation issues according to him. He presented here to the emergency room yesterday with complaints of increasing shortness of breath, cough and congestion. Chest x-ray reveals no acute pulmonary process. White count 7.8. He will 12.9. Platelets 244. Sodium 132. Potassium 4.6. BUN 11. Creatinine 0.6. Verdin virus not detected. Influenza screen negative. ProBNP 233. He is initiated on DuoNeb inhalations, Pulmicort and Perforomist inhalations, IV Solu-Medrol. Empiric antibiotics in the form of azithromycin. NicoDerm patch applied. He is seen today in consultation on the regular medical floor. He sitting up in bed. Awake and alert in no acute distress. Breathing a bit easier today compared to yesterday. Maintaining good O2 saturations in the 90s on 2 L/m nasal cannula. I'm evaluating this patient today on 08/31/2022. He appears quite comfortable lying in bed. He is maintained on 3 L nasal cannula. Denies any significant shortness of breath or fevers. No new CBC or BMP today. Most recent chest x- ray from 08/29/2022 revealed no acute cardiopulmonary process. Patient is maintained on DuoNeb inhalations every 4 hours, budesonide inhalation twice a day, and Perforomist. He is also receiving IV Solu-Medrol. She is empirically covered with Zithromax. Patient does have history of atrial fibrillation and is anticoagulated on Eliquis. Vital signs are stable. Normal I'm reevaluating this patient today on 09/01/2022. He appears fairly comfortable in bed, however, his oxygen requirements have increased. He is currently maintained on 8 L nasal cannula. Denies significant shortness of breath or fevers. No new labs today. No new chest x-ray today. Continues to be maintained on DuoNeb inhalations, budesonide inhalation, and Perforomist inhalation. Continues to receive IV Solu-Medrol. Course of Zithromax has been completed. Continues to be anticoagulated with Eliquis 2 history of A. fib. Being diuresed with 40 mg by mouth Lasix daily. Does not appear there is accurate intake and output documentation. Vital signs are stable. Reevaluating this patient today on 09/02/2022. He appears comfortable and then, and his oxygen requirements have decreased. He is currently on 3 L nasal cannula. He denies any significant shortness of breath or fevers. He continues to have a nonproductive, congested cough. We are continuing DuoNeb inhalations, budesonide inhalation, Perforomist inhalation. Continues on Solu-Medrol. has been diuresed with Lasix 40 mg daily. BMP from today shows a sodium of 135, potassium 4.5, chloride 93, serum CO2 33, BUN 18, creatinine 0.7. Anticoagulated on Eliquis. Vital signs remained stable, and heart rate is controlled at 88 bpm. The patient is seen today 09/03/2022 in follow-up on the regular medical floor. He is currently sitting up in a chair at the bedside. Awake and alert in no acute distress. He has been slow to progress. Continues to eat 3 L nasal cannula with O2 saturations at 97%. Afebrile. Hemodynamically stable. Blood sugar 146. Remains on Pulmicort and Perforomist inhalations, DuoNeb inhalations, IV Solu-Medrol. Antibiotics in form of Levaquin. NicoDerm patch in place. Objective - Vital Signs Vital signs: Vital Signs Temp 97.7 F 09/03/22 07:30 Pulse 85 09/03/22 09:25 Resp 16 09/03/22 07:30 BP 108/69 09/03/22 07:30 Pulse Ox 97 09/03/22 09:01 FiO2 Intake & Output 09/02/22 09/03/22 09/03/22 18:59 06:59 18:59 Weight 112.491 kg Other: # Voids 0 4 - Exam GENERAL EXAM: Alert, obese, 71-year-old male, appears stated age, comfortable in no apparent distress. HEAD: Normocephalic. EYES: Normal reaction of pupils, equal size. NOSE: Clear with pink turbinates. THROAT: No erythema or exudates. NECK: No masses, no JVD. CHEST: No chest wall deformity. LUNGS: Equal air entry with no crackles, rhonchi or dullness. There are expiratory wheezes throughout. CVS: S1 and S2 normal with no audible murmur, irregular rhythm. ABDOMEN: No hepatosplenomegaly, normal bowel sounds, no guarding or rigidity. SPINE: No scoliosis or deformity SKIN: No rashes CENTRAL NERVOUS SYSTEM: No focal deficits, tone is normal in all 4 extremities. EXTREMITIES: There is one plus peripheral edema. No clubbing, no cyanosis. Peripheral pulses are intact. - Labs CBC & Chem 7: 08/30/22 05:09 09/02/22 05:55 Labs: Abnormal Lab Results - Last 24 Hours (Table) 09/02/22 09/02/22 09/03/22 Range/Units 16:44 19:47 05:54 POC Glucose (mg/dL) 176 H 209 H 179 H (70-110) mg/dL 09/03/22 Range/Units 11:46 POC Glucose (mg/dL) 146 H (70-110) mg/dL Assessment and Plan Assessment: Acute exacerbation of chronic obstructive pulmonary disease Acute on chronic hypoxemic respiratory failure secondary to above Chronic and ongoing tobacco dependence of 50+ years Morbid obesity Hypertension Hyperlipidemia Atrial fibrillation, anticoagulated with Eliquis Diabetes mellitus Diabetic neuropathy History of noncompliance History of diastolic congestive heart failure Plan: The patient was seen and evaluated Medications reviewed Remains on bronchodilators, mucinex, steroids, Continue Levaquin, chech a procalcitonin NicoDerm patch in place We'll continue to follow I have personally seen and examined the patient, performed the documentation and the assessment and plan as written. Number of minutes spent on the visit: 10.
[2022-09-03 16:11] LABS: Glucose,Whole Blood 216 mg/dL (70-110)
[2022-09-03 19:35] LABS: Glucose,Whole Blood 236 mg/dL (70-110)
[2022-09-03] MEDS: ATORVASTATIN 20 MG TAB PO SCH (20:14)
[2022-09-03] MEDS: MELATONIN 3 MG TABLET PO PRN (20:15)
[2022-09-03] MEDS: TAMSULOSIN 0.4 MG CAP.ER.24H PO SCH (20:15)
[2022-09-03] MEDS: FUROSEMIDE 40 MG TAB PO SCH (20:15)
[2022-09-04] MEDS: methylPREDNISolone SOD SUCCI 125 MG/2 ML VIAL IV SCH ×5 (00:14→23:07)
[2022-09-04] MEDS: HYDROcodone/APAP 7.5-325MG 1 EACH TAB PO PRN ×3 (00:47→13:22)
[2022-09-04] MEDS: IPRATROPIUM-ALBUTEROL 3 ML NEB INHALATION SCH ×5 (03:12→20:38)
[2022-09-04] MEDS: GABAPENTIN 100 MG CAP PO SCH ×3 (05:14→20:50)
[2022-09-04 06:07] LABS: Glucose,Whole Blood 188 mg/dL (70-110)
[2022-09-04] MEDS: INSULIN ASPART (NovoLOG) 100 UNIT/ML VIAL SQ SCH ×4 (06:14→20:51)
[2022-09-04] MEDS: BUDESONIDE 1 MG/2 ML NEBU INHALATION SCH ×2 (07:39→20:38)
[2022-09-04] MEDS: FORMOTEROL FUMARATE 20 MCG/2 ML NEBU INHALATION SCH ×2 (07:39→20:38)
[2022-09-04] MEDS: NICOTINE 21MG/24HR PATCH TRANSDERM SCH (08:36)
[2022-09-04] MEDS: amLODIPine 10 MG TAB PO SCH (08:37)
[2022-09-04] MEDS: APIXABAN 5 MG TAB PO SCH ×2 (08:37→20:50)
[2022-09-04] MEDS: metFORMIN 500 MG TAB PO SCH ×2 (08:37→20:50)
[2022-09-04] MEDS: ESCITALOPRAM 5 MG TAB PO SCH (08:37)
[2022-09-04] MEDS: LEVOFLOXACIN 750 MG TAB PO SCH (08:37)
[2022-09-04] MEDS: METOPROLOL TARTRATE 50 MG TAB PO SCH ×2 (08:37→20:50)
[2022-09-04 11:23] LABS: Glucose,Whole Blood 179 mg/dL (70-110)
[2022-09-04 11:56] LABS: Basophils # (A) 0.01 X 10*3/uL (0.00-0.10); Basophils % (A) 0.1 %; Eosinophils # (A) 0 X 10*3/uL (0.04-0.35); Eosinophils % (A) 0 %; HCT 36.8 % (39.6-50.0); HGB 12.3 g/dL (13.0-17.0); Immature Grans, Automated 0.9 %; Lymphocytes # (A) 0.27 X 10*3/uL (0.90-5.00); Lymphocytes % (A) 2.6 %; MCH 28.9 pg (27.0-32.0); MCHC 33.4 g/dL (32.0-37.0); MCV 86.6 fL (80.0-97.0); Mean Platelet Volume 9.8 fL (9.5-12.2); Monocytes # (A) 0.59 X 10*3/uL (0.20-1.00); Monocytes % (A) 5.6 %; NRBC Per 100 WBC 0 /100 WBCS (0.0-0.0); Neutrophils # (A) 9.61 X 10*3/uL (1.80-7.70); Neutrophils % (A) 90.8 %; Platelet Count 251 X 10*3/uL (140-440); RBC 4.25 X 10*6/uL (4.40-5.60); RDW 16.3 % (11.5-14.5); WBC 10.57 X 10*3/uL (4.50-10.00)
[2022-09-04 12:24] LABS: African American GFR (CKD) 107.2 (60.0-200.0); Anion Gap 9.8 mmol/L (10.00-18.00); BUN/Creat Ratio 30.15 Ratio (12.00-20.00); Blood Urea Nitrogen 22.1 mg/dL (9.0-27.0); Calcium 8.5 mg/dL (8.7-10.3); Carbon Dioxide 35.6 mmol/L (20.0-27.5); Non-African American GFR(CKD) 92.5 (60.0-200.0); Potassium 4.4 mmol/L (3.5-5.5)
--- NOTE | 2022-09-04 13:12 | P.PN ---
Subjective Progress Note Date: 09/04/22 This is 71-year-old male patient with a history of morbid obesity, diabetes mellitus, atrial fibrillation, hypertension, hyperlipidemia, diabetic neuropathy, anxiety/depression, chronic hypoxemic respiratory failure secondary to chronic obstructive pulmonary disease from chronic tobacco dependence. He goldstein s oxygen dependent. He does continue to smoke. He's had multiple admissions for COPD exacerbations. He has not been to our office due to transportation issues according to him. He presented here to the emergency room yesterday with complaints of increasing shortness of breath, cough and congestion. Chest x-ray reveals no acute pulmonary process. White count 7.8. He will 12.9. Platelets 244. Sodium 132. Potassium 4.6. BUN 11. Creatinine 0.6. Verdin virus not detected. Influenza screen negative. ProBNP 233. He is initiated on DuoNeb inhalations, Pulmicort and Perforomist inhalations, IV Solu-Medrol. Empiric antibiotics in the form of azithromycin. NicoDerm patch applied. He is seen today in consultation on the regular medical floor. He sitting up in bed. Awake and alert in no acute distress. Breathing a bit easier today compared to yesterday. Maintaining good O2 saturations in the 90s on 2 L/m nasal cannula. I'm evaluating this patient today on 08/31/2022. He appears quite comfortable lying in bed. He is maintained on 3 L nasal cannula. Denies any significant shortness of breath or fevers. No new CBC or BMP today. Most recent chest x- ray from 08/29/2022 revealed no acute cardiopulmonary process. Patient is maintained on DuoNeb inhalations every 4 hours, budesonide inhalation twice a day, and Perforomist. He is also receiving IV Solu-Medrol. She is empirically covered with Zithromax. Patient does have history of atrial fibrillation and is anticoagulated on Eliquis. Vital signs are stable. Normal I'm reevaluating this patient today on 09/01/2022. He appears fairly comfortable in bed, however, his oxygen requirements have increased. He is currently maintained on 8 L nasal cannula. Denies significant shortness of breath or fevers. No new labs today. No new chest x-ray today. Continues to be maintained on DuoNeb inhalations, budesonide inhalation, and Perforomist inhalation. Continues to receive IV Solu-Medrol. Course of Zithromax has been completed. Continues to be anticoagulated with Eliquis 2 history of A. fib. Being diuresed with 40 mg by mouth Lasix daily. Does not appear there is accurate intake and output documentation. Vital signs are stable. Reevaluating this patient today on 09/02/2022. He appears comfortable and then, and his oxygen requirements have decreased. He is currently on 3 L nasal cannula. He denies any significant shortness of breath or fevers. He continues to have a nonproductive, congested cough. We are continuing DuoNeb inhalations, budesonide inhalation, Perforomist inhalation. Continues on Solu-Medrol. has been diuresed with Lasix 40 mg daily. BMP from today shows a sodium of 135, potassium 4.5, chloride 93, serum CO2 33, BUN 18, creatinine 0.7. Anticoagulated on Eliquis. Vital signs remained stable, and heart rate is controlled at 88 bpm. The patient is seen today 09/03/2022 in follow-up on the regular medical floor. He is currently sitting up in a chair at the bedside. Awake and alert in no acute distress. He has been slow to progress. Continues to eat 3 L nasal cannula with O2 saturations at 97%. Afebrile. Hemodynamically stable. Blood sugar 146. Remains on Pulmicort and Perforomist inhalations, DuoNeb inhalations, IV Solu-Medrol. Antibiotics in form of Levaquin. NicoDerm patch in place. The patient is seen today 09/04/2022 in follow-up on the regular medical floor. He is currently sitting up in a chair at the bedside. Awake and alert in no acu te distress. Continues to state he is still having some shortness of breath with minimal exertion. He is continued on DuoNeb inhalations, Pulmicort and Perforomist inhalations, IV Solu-Medrol. NicoDerm patch in place. Anticoagulated with Eliquis. Maintaining good O2 saturations in the mid to up per 90s on 3 L/m per nasal cannula. Afebrile. Hemodynamically stable. White count 10.5. Hemoglobin 12.3. Sodium 133. Potassium 4.4. BUN 22. Creatinine 0.7. Glucose 198. Objective - Vital Signs Vital signs: Vital Signs Temp 98.1 F 09/04/22 07:53 Pulse 90 09/04/22 11:21 Resp 14 09/04/22 07:53 BP 148/87 09/04/22 07:53 Pulse Ox 97 09/04/22 07:53 FiO2 Intake & Output 09/03/22 09/04/22 09/04/22 18:59 06:59 18:59 Intake Total 1440 Output Total 1200 750 Balance -1200 690 Weight 112.491 kg Intake: Oral 1440 Output: Urine 1200 750 Other: # Voids 6 2 1 - Exam GENERAL EXAM: Alert, obese, 71-year-old male, appears stated age, up in a chair at the bedside, on 3 L nasal cannula, comfortable in no apparent distress. HEAD: Normocephalic. EYES: Normal reaction of pupils, equal size. NOSE: Clear with pink turbinates. THROAT: No erythema or exudates. NECK: No masses, no JVD. CHEST: No chest wall deformity. LUNGS: Equal air entry with no crackles, rhonchi or dullness. There are expiratory wheezes throughout. CVS: S1 and S2 normal with no audible murmur, irregular rhythm. ABDOMEN: No hepatosplenomegaly, normal bowel sounds, no guarding or rigidity. SPINE: No scoliosis or deformity SKIN: No rashes CENTRAL NERVOUS SYSTEM: No focal deficits, tone is normal in all 4 extremities. EXTREMITIES: There is one plus peripheral edema. No clubbing, no cyanosis. Peripheral pulses are intact. - Labs CBC & Chem 7: 09/04/22 06:40 09/04/22 06:40 Labs: Abnormal Lab Results - Last 24 Hours (Table) 09/03/22 09/03/22 09/04/22 Range/Units 16:10 19:33 06:05 WBC (4.50-10.00) X 10*3/uL RBC (4.40-5.60) X 10*6/uL Hgb (13.0-17.0) g/dL Hct (39.6-50.0) % RDW (11.5-14.5) % Immature Gran # (0.00-0.04) X 10*3/uL Neutrophils # (1.80-7.70) X 10*3/uL Lymphocytes # (0.90-5.00) X 10*3/uL Eosinophils # (0.04-0.35) X 10*3/uL Sodium (135-145) mmol/L Chloride (96-109) mmol/L Carbon Dioxide (20.0-27.5) mmol/L Anion Gap (10.00-18.00) mmol/L BUN/Creatinine Ratio (12.00-20.00) Ratio Glucose (70-110) mg/dL POC Glucose (mg/dL) 216 H 236 H 188 H (70-110) mg/dL Calcium (8.7-10.3) mg/dL 09/04/22 09/04/22 09/04/22 Range/Units 06:40 06:40 11:21 WBC 10.57 H (4.50-10.00) X 10*3/uL RBC 4.25 L (4.40-5.60) X 10*6/uL Hgb 12.3 L (13.0-17.0) g/dL Hct 36.8 L (39.6-50.0) % RDW 16.3 H (11.5-14.5) % Immature Gran # 0.09 H (0.00-0.04) X 10*3/uL Neutrophils # 9.61 H (1.80-7.70) X 10*3/uL Lymphocytes # 0.27 L (0.90-5.00) X 10*3/uL Eosinophils # 0 L (0.04-0.35) X 10*3/uL Sodium 133 L (135-145) mmol/L Chloride 88 L (96-109) mmol/L Carbon Dioxide 35.6 H (20.0-27.5) mmol/L Anion Gap 9.80 L (10.00-18.00) mmol/L BUN/Creatinine Ratio 30.15 H (12.00-20.00) Ratio Glucose 198 H (70-110) mg/dL POC Glucose (mg/dL) 179 H (70-110) mg/dL Calcium 8.5 L (8.7-10.3) mg/dL Assessment and Plan Assessment: Acute exacerbation of chronic obstructive pulmonary disease Acute on chronic hypoxemic respiratory failure secondary to above Chronic and ongoing tobacco dependence of 50+ years Morbid obesity Hypertension Hyperlipidemia Atrial fibrillation, anticoagulated with Eliquis Diabetes mellitus Diabetic neuropathy History of noncompliance History of diastolic congestive heart failure Plan: The patient was seen and evaluated Medications and labs reviewed Remains on bronchodilators, mucinex, steroids Again educated regarding the importance of complete smoking cessation NicoDerm patch in place We'll continue to follow I have personally seen and examined the patient, performed the documentation and the assessment and plan as written. Number of minutes spent on the visit: 10.
[2022-09-04] MEDS ORDERED: LORazepam 0.5 MG TAB PO STA (15:21)
[2022-09-04] MEDS: MAG HYDROX/AL HYDROX/SIMETH 30 ML CUP PO PRN (15:31)
[2022-09-04 16:29] LABS: Glucose,Whole Blood 193 mg/dL (70-110)
[2022-09-04 19:31] LABS: Glucose,Whole Blood 224 mg/dL (70-110)
[2022-09-04] MEDS: ATORVASTATIN 20 MG TAB PO SCH (20:50)
[2022-09-04] MEDS: FAMOTIDINE 20 MG TAB PO SCH (20:50)
[2022-09-04] MEDS: FUROSEMIDE 40 MG TAB PO SCH (20:50)
[2022-09-04] MEDS: TAMSULOSIN 0.4 MG CAP.ER.24H PO SCH (20:50)
[2022-09-05] MEDS: IPRATROPIUM-ALBUTEROL 3 ML NEB INHALATION SCH ×7 (01:43→23:40)
[2022-09-05] MEDS: methylPREDNISolone SOD SUCCI 125 MG/2 ML VIAL IV SCH ×4 (06:01→23:13)
[2022-09-05] MEDS: GABAPENTIN 100 MG CAP PO SCH ×3 (06:02→21:42)
[2022-09-05] MEDS: HYDROcodone/APAP 7.5-325MG 1 EACH TAB PO PRN ×2 (06:09→13:54)
[2022-09-05 06:26] LABS: Glucose,Whole Blood 145 mg/dL (70-110)
[2022-09-05] MEDS: INSULIN ASPART (NovoLOG) 100 UNIT/ML VIAL SQ SCH ×4 (06:29→21:43)
[2022-09-05] MEDS: BUDESONIDE 1 MG/2 ML NEBU INHALATION SCH ×2 (07:34→19:50)
[2022-09-05] MEDS: FORMOTEROL FUMARATE 20 MCG/2 ML NEBU INHALATION SCH ×2 (07:34→19:50)
[2022-09-05] MEDS: metFORMIN 500 MG TAB PO SCH ×2 (08:55→21:42)
[2022-09-05] MEDS: ESCITALOPRAM 5 MG TAB PO SCH (08:55)
[2022-09-05] MEDS: FAMOTIDINE 20 MG TAB PO SCH ×2 (08:55→21:42)
[2022-09-05] MEDS: amLODIPine 10 MG TAB PO SCH (08:55)
[2022-09-05] MEDS: NICOTINE 21MG/24HR PATCH TRANSDERM SCH (08:55)
[2022-09-05] MEDS: METOPROLOL TARTRATE 50 MG TAB PO SCH ×2 (08:55→21:42)
[2022-09-05] MEDS: APIXABAN 5 MG TAB PO SCH ×2 (08:55→21:42)
[2022-09-05 09:36] LABS: Basophils # (A) 0.01 X 10*3/uL (0.00-0.10); Basophils % (A) 0.1 %; Eosinophils # (A) 0 X 10*3/uL (0.04-0.35); Eosinophils % (A) 0 %; HCT 36.6 % (39.6-50.0); HGB 12.2 g/dL (13.0-17.0); Immature Grans, Automated 1.1 %; MCH 28.8 pg (27.0-32.0); MCHC 33.3 g/dL (32.0-37.0); MCV 86.5 fL (80.0-97.0); Mean Platelet Volume 10.1 fL (9.5-12.2); Monocytes # (A) 0.53 X 10*3/uL (0.20-1.00); Monocytes % (A) 5.2 %; NRBC Per 100 WBC 0 /100 WBCS (0.0-0.0); Neutrophils # (A) 9.18 X 10*3/uL (1.80-7.70); Neutrophils % (A) 90.6 %; Platelet Count 253 X 10*3/uL (140-440); RBC 4.23 X 10*6/uL (4.40-5.60); RDW 16.2 % (11.5-14.5); WBC 10.13 X 10*3/uL (4.50-10.00)
[2022-09-05 09:39] LABS: African American GFR (CKD) 109.3 (60.0-200.0); Anion Gap 6.9 mmol/L (10.00-18.00); BUN/Creat Ratio 31.86 Ratio (12.00-20.00); Blood Urea Nitrogen 22.3 mg/dL (9.0-27.0); Calcium 8.6 mg/dL (8.7-10.3); Carbon Dioxide 38.1 mmol/L (20.0-27.5); Non-African American GFR(CKD) 94.3 (60.0-200.0); Potassium 4.5 mmol/L (3.5-5.5)
[2022-09-05 11:30] LABS: Glucose,Whole Blood 186 mg/dL (70-110)
--- NOTE | 2022-09-05 13:21 | P.PN ---
Subjective Progress Note Date: 09/05/22 Principal diagnosis: Acute exacerbation of COPD This is 71-year-old male patient with a history of morbid obesity, diabetes mellitus, atrial fibrillation, hypertension, hyperlipidemia, diabetic neuropathy, anxiety/depression, chronic hypoxemic respiratory failure secondary to chronic obstructive pulmonary disease from chronic tobacco dependence. He has oxygen dependent. He does continue to smoke. He's had multiple admissions for COPD exacerbations. He has not been to our office due to transportation issues according to him. He presented here to the emergency room yesterday with complaints of increasing shortness of breath, cough and congestion. Chest x-ray reveals no acute pulmonary process. White count 7.8. He will 12.9. Platelets 244. Sodium 132. Potassium 4.6. BUN 11. Creatinine 0.6. Verdin virus not detected. Influenza screen negative. ProBNP 233. He is initiated on DuoNeb inhalations, Pulmicort and Perforomist inhalations, IV Solu-Medrol. Empiric antibiotics in the form of azithromycin. NicoDerm patch applied. He is seen today in consultation on the regular medical floor. He sitting up in bed. Awake and alert in no acute distress. Breathing a bit easier today compared to yesterday. Maintaining good O2 saturations in the 90s on 2 L/m nasal cannula. I'm evaluating this patient today on 08/31/2022. He appears quite comfortable lying in bed. He is maintained on 3 L nasal cannula. Denies any significant shortness of breath or fevers. No new CBC or BMP today. Most recent chest x- ray from 08/29/2022 revealed no acute cardiopulmonary process. Patient is maintained on DuoNeb inhalations every 4 hours, budesonide inhalation twice a day, and Perforomist. He is also receiving IV Solu-Medrol. She is empirically covered with Zithromax. Patient does have history of atrial fibrillation and is anticoagulated on Eliquis. Vital signs are stable. Normal I'm reevaluating this patient today on 09/01/2022. He appears fairly comfortable in bed, however, his oxygen requirements have increased. He is currently maintained on 8 L nasal cannula. Denies significant shortness of breath or fevers. No new labs today. No new chest x-ray today. Continues to be maintained on DuoNeb inhalations, budesonide inhalation, and Perforomist inhalation. Continues to receive IV Solu-Medrol. Course of Zithromax has been completed. Continues to be anticoagulated with Eliquis 2 history of A. fib. Being diuresed with 40 mg by mouth Lasix daily. Does not appear there is accurate intake and output documentation. Vital signs are stable. The patient is seen today 09/03/2022 in follow-up on the regular medical floor. He is currently sitting up in a chair at the bedside. Awake and alert in no acute distress. He has been slow to progress. Continues to eat 3 L nasal cannula with O2 saturations at 97%. Afebrile. Hemodynamically stable. Blood sugar 146. Remains on Pulmicort and Perforomist inhalations, DuoNeb inhalations, IV Solu-Medrol. Antibiotics in form of Levaquin. NicoDerm patch in place. The patient is seen today 09/04/2022 in follow-up on the regular medical floor. He is currently sitting up in a chair at the bedside. Awake and alert in no acute distress. Continues to state he is still having some shortness of breath with minimal exertion. He is continued on DuoNeb inhalations, Pulmicort and Perforomist inhalations, IV Solu-Medrol. NicoDerm patch in place. Anticoagulated with Eliquis. Maintaining good O2 saturations in the mid to upper 90s on 3 L/m per nasal cannula. Afebrile. Hemodynamically stable. White count 10.5. Hemoglobin 12.3. Sodium 133. Potassium 4.4. BUN 22. Creatinine 0.7. Glucose 198. Reevaluated today on 09/05/22, patient is basically about the same, continues to cough and wheeze, continues to have shortness of breath, very minimal improvement over the last few days, I have a feeling the patient may eventually require bronchoscopy and lavage if he continues to be about the same. Not much of a change, patient is obviously not ready to be discharged home. Patient is maximized on bronchodilators, antibiotics, and steroids Objective - Vital Signs Vital signs: Vital Signs Temp 97.5 F L 09/05/22 08:00 Pulse 92 09/05/22 11:39 Resp 18 09/05/22 08:00 BP 119/71 09/05/22 08:00 Pulse Ox 95 09/05/22 08:00 FiO2 Intake & Output 09/04/22 09/05/22 09/05/22 18:59 06:59 18:59 Intake Total 480 Balance 480 Intake: Oral 480 Other: # Voids 1 4 - Exam GENERAL EXAM: Alert, obese male, appears stated age, comfortable in no apparent distress. HEAD: Normocephalic. EYES: Normal reaction of pupils, equal size. NOSE: Clear with pink turbinates. THROAT: No erythema or exudates. NECK: No masses, no JVD. CHEST: No chest wall deformity. LUNGS: Diffuse rhonchi and wheezes persist bilaterally. CVS: S1 and S2 normal with no audible murmur, irregular rhythm. ABDOMEN: No hepatosplenomegaly, normal bowel sounds, no guarding or rigidity. SKIN: No rashes CENTRAL NERVOUS SYSTEM: No focal deficits, tone is normal in all 4 extremities. EXTREMITIES: There is no peripheral edema. No clubbing, no cyanosis. Peripheral pulses are intact. - Labs CBC & Chem 7: 09/05/22 04:40 09/05/22 04:40 Labs: Abnormal Lab Results - Last 24 Hours (Table) 09/04/22 09/04/22 09/05/22 Range/Units 16:28 19:25 04:40 WBC 10.13 H (4.50-10.00) X 10*3/uL RBC 4.23 L (4.40-5.60) X 10*6/uL Hgb 12.2 L (13.0-17.0) g/dL Hct 36.6 L (39.6-50.0) % RDW 16.2 H (11.5-14.5) % Immature Gran # 0.11 H (0.00-0.04) X 10*3/uL Neutrophils # 9.18 H (1.80-7.70) X 10*3/uL Lymphocytes # 0.30 L (0.90-5.00) X 10*3/uL Eosinophils # 0 L (0.04-0.35) X 10*3/uL Chloride (96-109) mmol/L Carbon Dioxide (20.0-27.5) mmol/L Anion Gap (10.00-18.00) mmol/L BUN/Creatinine Ratio (12.00-20.00) Ratio Glucose (70-110) mg/dL POC Glucose (mg/dL) 193 H 224 H (70-110) mg/dL Calcium (8.7-10.3) mg/dL 09/05/22 09/05/22 09/05/22 Range/Units 04:40 06:22 11:28 WBC (4.50-10.00) X 10*3/uL RBC (4.40-5.60) X 10*6/uL Hgb (13.0-17.0) g/dL Hct (39.6-50.0) % RDW (11.5-14.5) % Immature Gran # (0.00-0.04) X 10*3/uL Neutrophils # (1.80-7.70) X 10*3/uL Lymphocytes # (0.90-5.00) X 10*3/uL Eosinophils # (0.04-0.35) X 10*3/uL Chloride 90 L (96-109) mmol/L Carbon Dioxide 38.1 H (20.0-27.5) mmol/L Anion Gap 6.90 L (10.00-18.00) mmol/L BUN/Creatinine Ratio 31.86 H (12.00-20.00) Ratio Glucose 135 H (70-110) mg/dL POC Glucose (mg/dL) 145 H 186 H (70-110) mg/dL Calcium 8.6 L (8.7-10.3) mg/dL Assessment and Plan Assessment: Impression: Acute exacerbation of chronic obstructive pulmonary disease Acute on chronic hypoxemic respiratory failure secondary to above Chronic and ongoing tobacco dependence of 50+ years hyponatremia Morbid obesity Hypertension Hyperlipidemia Atrial fibrillation, anticoagulated with Eliquis Diabetes mellitus Diabetic neuropathy History of noncompliance History of diastolic congestive heart failure Recommendation: Repeat chest x-ray in a.m. Continue bronchodilators Continue antibiotics and/Levaquin empirically Continue Solu-Medrol Not quite ready for any discharge planning Sputum sample if possible We will continue to follow Time with Patient: Less than 30
[2022-09-05] MEDS: LEVOFLOXACIN 500MG-D5W PMX 500 MG in DEXTROSE/WATER 1 100ML.BAG IVPB SCH (14:04)
--- NOTE | 2022-09-05 14:48 | XR ---
EXAMINATION TYPE: XR chest 1V portable DATE OF EXAM: 09/05/2022 COMPARISON: 08/29/2022 HISTORY: Short of breath TECHNIQUE: Single view FINDINGS: There is no heart failure nor confluent pneumonic infiltrate. Costophrenic angles are clear . The bony thorax is intact. IMPRESSION: No active cardiopulmonary disease. No change.
[2022-09-05] MEDS: MAG HYDROX/AL HYDROX/SIMETH 30 ML CUP PO PRN ×2 (16:12→21:39)
[2022-09-05 16:37] LABS: Glucose,Whole Blood 175 mg/dL (70-110)
[2022-09-05 19:53] LABS: Glucose,Whole Blood 201 mg/dL (70-110)
[2022-09-05] MEDS: ATORVASTATIN 20 MG TAB PO SCH (21:42)
[2022-09-05] MEDS: FUROSEMIDE 40 MG TAB PO SCH (21:42)
[2022-09-05] MEDS: MELATONIN 3 MG TABLET PO PRN (21:42)
[2022-09-05] MEDS: TAMSULOSIN 0.4 MG CAP.ER.24H PO SCH (21:42)
--- NOTE | 2022-09-05 22:12 | P.PN ---
Subjective Progress Note Date: 09/03/22 This is a pleasant 71 years old male with multiple medical problems including COPD he presents because of worsening dyspnea Present because of progressive dyspnea for about 3 weeks, slowly progressive associated with cough and age phlegm as patient is guarded, but denies any current chest pain. Patient states that yesterday he had chest pain for about an hour on his left side but bows. And treated as 0/10. Patient looks pretty comfortable in bed, he denies any headache weakness numbness or dizziness. No abdominal pain vomiting . No urinary complaint Patient admits having little diarrhea for 1 day duration but no fever Patient smokes about 1.5 pack per day he was counseled to quit but he declines and he agrees to nicotine patch At home he is on oxygen at 3 L/m, he states that he follows up with Dr. Robert Ott looks stable and his saturation 94% at 4 L oxygen via nasal cannula CBC is unremarkable, as well as INR. Sodium 124, patient has chronic hyponatremia with range 122-1:30. Creatinine 0.5. Liver enzymes not elevated. Urine analysis is negative. Coronavirus and influenza virus is are negative. EKG showing atrial fibrillation with rate control at [address]-T changes Chest x-ray: No acute cardiopulmonary process Patient is started on IV Solu-Medrol and breathing treatment patient also received 1 L of normal saline in the emergency room 08/30/2022 Patient breathing improving gradually and he's feeling better today Oxygen requirement went down to 2 L/m. Continue with Solu-Medrol, Zithromax added today which looks appropriate Sodium improved to 132 Patient is counseled to quit smoking Possible discharge in 24-40 [facility] if he keeps improving 08/31/2022 Patient still wheezing and filling dyspneic, on exam also has prolonged expiration. He's on 3 L oxygen via nasal cannula which is his home dose. Patient currently on Solu-Medrol 60 mg, oral Zithromax and his home dose of Eliquis. Home health care is ordered for him 09/01/2022 Patient still significantly wheezing and shortness of breath, he is in the 3 L oxygen He remains on the same treatment of IV Solu-Medrol and Zithromax Patient slept better after increasing his melatonin to 9 mg upon his request. He requested Valium, MAPS was checked last time he received Valium was on June more than 2 months ago, Xanax effort anesthetic and he declines. I explained for the patient Valium has more risk than benefit and he agrees to hold for now 09/02/2022 Patient with no significant improvement, still complain from dyspnea and wheezing. Is currently on IV Solu-Medrol and antibiotic with Levaquin. Continue with present treatment He is at baseline of oxygen requirement of 3 L/m Sodium improved to 135 09/03/2022 Patient is currently sitting in the recliner. Awake alert and oriented. Still having exertional dyspnea and diffuse wheezing on exam. Requiring oxygen 3 L via nasal cannula. Patient is being treated on IV Solu-Medrol, Pulmicort and Perforomist and DuoNeb inhalations. Also on antibiotics in the form of Levaquin. Laboratory data reviewed. Procalcitonin level is 0.03. Current medications reviewed. Objective - Vital Signs Vital signs: Vital Signs Temp 98.4 F 09/03/22 20:00 Pulse 101 H 09/03/22 21:05 Resp 18 09/03/22 21:05 BP 146/53 09/03/22 20:00 Pulse Ox 95 09/03/22 20:00 FiO2 Intake & Output 09/03/22 09/03/22 09/04/22 06:59 18:59 06:59 Output Total 1200 Balance -1200 Weight 112.491 kg Output: Urine 1200 Other: # Voids 4 6 - Exam - Exam GENERAL: The patient is alert and oriented x3, not in any acute distress. Well developed, well nourished. HEENT: Pupils are round and equally reacting to light. EOMI. No scleral icterus. No conjunctival pallor. Normocephalic, atraumatic. No pharyngeal erythema. No thyromegaly. CARDIOVASCULAR: S1 and S2 present. No murmurs, rubs, or gallops. PULMONARY: Chest is clear to auscultation, nay diffuse wheezing . no crackles. ABDOMEN: Soft, nontender, nondistended, normoactive bowel sounds. No palpable organomegaly. MUSCULOSKELETAL: No joint swelling or deformity. EXTREMITIES: No cyanosis, clubbing, or pedal edema. NEUROLOGICAL: Gross neurological examination did not reveal any focal deficits. SKIN: No rashes. no petechiae. - Labs CBC & Chem 7: 09/05/22 04:40 09/05/22 04:40 Labs: Abnormal Lab Results - Last 24 Hours (Table) 09/03/22 09/03/22 09/03/22 Range/Units 05:54 11:46 16:10 POC Glucose (mg/dL) 179 H 146 H 216 H (70-110) mg/dL 09/03/22 Range/Units 19:33 POC Glucose (mg/dL) 236 H (70-110) mg/dL Assessment and Plan Assessment: Acute COPD exacerbation Hyponatremia, chronic Nicotine dependence Diabetes mellitus Hypertension Hyperlipidemia History of osteoarthritis History of GERD Diabetic neuropathy of feet and hands Chronic back pain Polyarthralgia History of falls History of anxiety and depression, not in activation Plan: Continue with IV steroids, currently Solu-Medrol 60 mg IV Q6. Also on Pulmicort and Perforomist. Antibiotics in form of Levaquin. Continue with bronchodilator Pulmonary is on board DVT prophylaxis: Eliquis GI Prophylaxis: Pepcid PT/OT: Pending Prognosis is guarded
--- NOTE | 2022-09-05 22:23 | P.PN ---
Subjective Progress Note Date: 09/04/22 This is a pleasant 71 years old male with multiple medical problems including COPD he presents because of worsening dyspnea Present because of progressive dyspnea for about 3 weeks, slowly progressive associated with cough and age phlegm as patient is guarded, but denies any current chest pain. Patient states that yesterday he had chest pain for about an hour on his left side but bows. And treated as 0/10. Patient looks pretty comfortable in bed, he denies any headache weakness numbness or dizziness. No abdominal pain vomiting . No urinary complaint Patient admits having little diarrhea for 1 day duration but no fever Patient smokes about 1.5 pack per day he was counseled to quit but he declines and he agrees to nicotine patch At home he is on oxygen at 3 L/m, he states that he follows up with Dr. Robert Ott looks stable and his saturation 94% at 4 L oxygen via nasal cannula CBC is unremarkable, as well as INR. Sodium 124, patient has chronic hyponatremia with range 122-1:30. Creatinine 0.5. Liver enzymes not elevated. Urine analysis is negative. Coronavirus and influenza virus is are negative. EKG showing atrial fibrillation with rate control at [address]-T changes Chest x-ray: No acute cardiopulmonary process Patient is started on IV Solu-Medrol and breathing treatment patient also received 1 L of normal saline in the emergency room 08/30/2022 Patient breathing improving gradually and he's feeling better today Oxygen requirement went down to 2 L/m. Continue with Solu-Medrol, Zithromax added today which looks appropriate Sodium improved to 132 Patient is counseled to quit smoking Possible discharge in 24-40 [facility] if he keeps improving 08/31/2022 Patient still wheezing and filling dyspneic, on exam also has prolonged expiration. He's on 3 L oxygen via nasal cannula which is his home dose. Patient currently on Solu-Medrol 60 mg, oral Zithromax and his home dose of Eliquis. Home health care is ordered for him 09/01/2022 Patient still significantly wheezing and shortness of breath, he is in the 3 L oxygen He remains on the same treatment of IV Solu-Medrol and Zithromax Patient slept better after increasing his melatonin to 9 mg upon his request. He requested Valium, MAPS was checked last time he received Valium was on June more than 2 months ago, Xanax effort anesthetic and he declines. I explained for the patient Valium has more risk than benefit and he agrees to hold for now 09/02/2022 Patient with no significant improvement, still complain from dyspnea and wheezing. Is currently on IV Solu-Medrol and antibiotic with Levaquin. Continue with present treatment He is at baseline of oxygen requirement of 3 L/m Sodium improved to 135 09/03/2022 Patient is currently sitting in the recliner. Awake alert and oriented. Still having exertional dyspnea and diffuse wheezing on exam. Requiring oxygen 3 L via nasal cannula. Patient is being treated on IV Solu-Medrol, Pulmicort and Perforomist and DuoNeb inhalations. Also on antibiotics in the form of Levaquin. Laboratory data reviewed. Procalcitonin level is 0.03. 09/04/2022 Patient is currently sitting in recliner. Awake alert and oriented. Still having bilateral diffuse wheezing and rhonchi. Shortness of breath with minimal exertion. Patient was complaining of gastric upset and was started on Maalox. Otherwise patient is being current on DuoNebs, Pulmicort, Perforomist, IV Solu- Medrol and also on anticoagulation with Eliquis. Laboratory data showed WBC 10.4 hemoglobin 12.3 and platelets 251 Sodium 133 potassium 4.4 chloride 88 bicarb is 35.6 BUN 22.1 and creatinine 0.7 and blood sugar is 198 and calcium 8.5. Current medications reviewed. Objective - Vital Signs Vital signs: Vital Signs Temp 98.3 F 09/04/22 19:55 Pulse 92 09/04/22 20:56 Resp 20 09/04/22 19:55 BP 134/70 09/04/22 19:55 Pulse Ox 94 L 09/04/22 19:55 FiO2 Intake & Output 09/04/22 09/04/22 09/05/22 06:59 18:59 06:59 Intake Total 1440 Output Total 750 Balance 690 Intake: Oral 1440 Output: Urine 750 Other: # Voids 2 1 - Exam - Exam GENERAL: The patient is alert and oriented x3, not in any acute distress. Well developed, well nourished. HEENT: Pupils are round and equally reacting to light. EOMI. No scleral icterus. No conjunctival pallor. Normocephalic, atraumatic. No pharyngeal erythema. No thyromegaly. CARDIOVASCULAR: S1 and S2 present. No murmurs, rubs, or gallops. PULMONARY: Chest is clear to auscultation, nay diffuse wheezing . no crackles. ABDOMEN: Soft, nontender, nondistended, normoactive bowel sounds. No palpable organomegaly. MUSCULOSKELETAL: No joint swelling or deformity. EXTREMITIES: No cyanosis, clubbing, or pedal edema. NEUROLOGICAL: Gross neurological examination did not reveal any focal deficits. SKIN: No rashes. no petechiae. - Labs CBC & Chem 7: 09/05/22 04:40 09/05/22 04:40 Labs: Abnormal Lab Results - Last 24 Hours (Table) 09/04/22 09/04/22 09/04/22 Range/Units 06:05 06:40 06:40 WBC 10.57 H (4.50-10.00) X 10*3/uL RBC 4.25 L (4.40-5.60) X 10*6/uL Hgb 12.3 L (13.0-17.0) g/dL Hct 36.8 L (39.6-50.0) % RDW 16.3 H (11.5-14.5) % Immature Gran # 0.09 H (0.00-0.04) X 10*3/uL Neutrophils # 9.61 H (1.80-7.70) X 10*3/uL Lymphocytes # 0.27 L (0.90-5.00) X 10*3/uL Eosinophils # 0 L (0.04-0.35) X 10*3/uL Sodium 133 L (135-145) mmol/L Chloride 88 L (96-109) mmol/L Carbon Dioxide 35.6 H (20.0-27.5) mmol/L Anion Gap 9.80 L (10.00-18.00) mmol/L BUN/Creatinine Ratio 30.15 H (12.00-20.00) Ratio Glucose 198 H (70-110) mg/dL POC Glucose (mg/dL) 188 H (70-110) mg/dL Calcium 8.5 L (8.7-10.3) mg/dL 09/04/22 09/04/22 09/04/22 Range/Units 11:21 16:28 19:25 WBC (4.50-10.00) X 10*3/uL RBC (4.40-5.60) X 10*6/uL Hgb (13.0-17.0) g/dL Hct (39.6-50.0) % RDW (11.5-14.5) % Immature Gran # (0.00-0.04) X 10*3/uL Neutrophils # (1.80-7.70) X 10*3/uL Lymphocytes # (0.90-5.00) X 10*3/uL Eosinophils # (0.04-0.35) X 10*3/uL Sodium (135-145) mmol/L Chloride (96-109) mmol/L Carbon Dioxide (20.0-27.5) mmol/L Anion Gap (10.00-18.00) mmol/L BUN/Creatinine Ratio (12.00-20.00) Ratio Glucose (70-110) mg/dL POC Glucose (mg/dL) 179 H 193 H 224 H (70-110) mg/dL Calcium (8.7-10.3) mg/dL Assessment and Plan Assessment: Acute COPD exacerbation Hyponatremia, chronic Nicotine dependence Diabetes mellitus Hypertension Hyperlipidemia History of osteoarthritis History of GERD Diabetic neuropathy of feet and hands Chronic back pain Polyarthralgia History of falls History of anxiety and depression, not in activation Chronic atrial fibrillation anticoagulated with Eliquis. Plan: Continue with IV steroids, currently Solu-Medrol 60 mg IV Q6. Also on Pulmicort and Perforomist. Antibiotics in form of Levaquin. Continue with bronchodilator Pulmonary is on board DVT prophylaxis: Eliquis GI Prophylaxis: Pepcid PT/OT: Pending Prognosis is guarded Time with Patient: Greater than 30
--- NOTE | 2022-09-05 22:25 | P.PN ---
Subjective Progress Note Date: 09/05/22 This is a pleasant 71 years old male with multiple medical problems including COPD he presents because of worsening dyspnea Present because of progressive dyspnea for about 3 weeks, slowly progressive associated with cough and age phlegm as patient is guarded, but denies any current chest pain. Patient states that yesterday he had chest pain for about an hour on his left side but bows. And treated as 0/10. Patient looks pretty comfortable in bed, he denies any headache weakness numbness or dizziness. No abdominal pain vomiting . No urinary complaint Patient admits having little diarrhea for 1 day duration but no fever Patient smokes about 1.5 pack per day he was counseled to quit but he declines and he agrees to nicotine patch At home he is on oxygen at 3 L/m, he states that he follows up with Dr. Robert Ott looks stable and his saturation 94% at 4 L oxygen via nasal cannula CBC is unremarkable, as well as INR. Sodium 124, patient has chronic hyponatremia with range 122-1:30. Creatinine 0.5. Liver enzymes not elevated. Urine analysis is negative. Coronavirus and influenza virus is are negative. EKG showing atrial fibrillation with rate control at [address]-T changes Chest x-ray: No acute cardiopulmonary process Patient is started on IV Solu-Medrol and breathing treatment patient also received 1 L of normal saline in the emergency room 08/30/2022 Patient breathing improving gradually and he's feeling better today Oxygen requirement went down to 2 L/m. Continue with Solu-Medrol, Zithromax added today which looks appropriate Sodium improved to 132 Patient is counseled to quit smoking Possible discharge in 24-40 [facility] if he keeps improving 08/31/2022 Patient still wheezing and filling dyspneic, on exam also has prolonged expiration. He's on 3 L oxygen via nasal cannula which is his home dose. Patient currently on Solu-Medrol 60 mg, oral Zithromax and his home dose of Eliquis. Home health care is ordered for him 09/01/2022 Patient still significantly wheezing and shortness of breath, he is in the 3 L oxygen He remains on the same treatment of IV Solu-Medrol and Zithromax Patient slept better after increasing his melatonin to 9 mg upon his request. He requested Valium, MAPS was checked last time he received Valium was on June more than 2 months ago, Xanax effort anesthetic and he declines. I explained for the patient Valium has more risk than benefit and he agrees to hold for now 09/02/2022 Patient with no significant improvement, still complain from dyspnea and wheezing. Is currently on IV Solu-Medrol and antibiotic with Levaquin. Continue with present treatment He is at baseline of oxygen requirement of 3 L/m Sodium improved to 135 09/03/2022 Patient is currently sitting in the recliner. Awake alert and oriented. Still having exertional dyspnea and diffuse wheezing on exam. Requiring oxygen 3 L via nasal cannula. Patient is being treated on IV Solu-Medrol, Pulmicort and Perforomist and DuoNeb inhalations. Also on antibiotics in the form of Levaquin. Laboratory data reviewed. Procalcitonin level is 0.03. 09/04/2022 Patient is currently sitting in recliner. Awake alert and oriented. Still having bilateral diffuse wheezing and rhonchi. Shortness of breath with minimal exertion. Patient was complaining of gastric upset and was started on Maalox. Otherwise patient is being current on DuoNebs, Pulmicort, Perforomist, IV Solu- Medrol and also on anticoagulation with Eliquis. Laboratory data showed WBC 10.4 hemoglobin 12.3 and platelets 251 Sodium 133 potassium 4.4 chloride 88 bicarb is 35.6 BUN 22.1 and creatinine 0.7 and blood sugar is 198 and calcium 8.5. 09/05/2022 Patient is currently sitting in the chair. Awake alert and oriented. Continues to have wheezing and exertional shortness of breath. Continued on IV Solu- Medrol, duo nebs and antibiotics in the form of Levaquin. Pulmonary is on boar d. Considering bronchoscopy. Breathing status remains the same. Patient has been afebrile. No nausea vomiting abdominal pain or diarrhea. Cough without any sputum production. No headache or dizziness or lightheadedness. Laboratory pressure WBC 10.1 hemoglobin 12.1 platelets 253 Sodium 134 potassium 4.5 chloride 90 bicarb is 38.1 BUN 22.3 and creatinine 0.7 and blood sugar is 135 and calcium 8.6. Current medications reviewed. Objective - Vital Signs Vital signs: Vital Signs Temp 97.9 F 09/05/22 19:50 Pulse 96 09/05/22 20:22 Resp 20 09/05/22 19:50 BP 133/74 09/05/22 19:50 Pulse Ox 97 09/05/22 19:50 FiO2 Intake & Output 09/05/22 09/05/22 09/06/22 06:59 18:59 06:59 Intake Total 480 950 Balance 480 950 Intake: Intake, IV Titration 100 Amount Levofloxacin 500Mg-D5w 100 Pmx 500 mg In Dextrose/ Water 1 100ml.bag @ 100 mls/hr IVPB Q24H [facility] Rx#: [id number] Oral 480 850 Other: # Voids 4 3 # Bowel Movements 0 - Exam - Exam GENERAL: The patient is alert and oriented x3, not in any acute distress. Well developed, well nourished. HEENT: Pupils are round and equally reacting to light. EOMI. No scleral icterus. No conjunctival pallor. Normocephalic, atraumatic. No pharyngeal erythema. No thyromegaly. CARDIOVASCULAR: S1 and S2 present. No murmurs, rubs, or gallops. PULMONARY: Chest is clear to auscultation, nay diffuse wheezing . no crackles. ABDOMEN: Soft, nontender, nondistended, normoactive bowel sounds. No palpable o rganomegaly. MUSCULOSKELETAL: No joint swelling or deformity. EXTREMITIES: No cyanosis, clubbing, or pedal edema. NEUROLOGICAL: Gross neurological examination did not reveal any focal deficits. SKIN: No rashes. no petechiae. - Labs CBC & Chem 7: 09/05/22 04:40 09/05/22 04:40 Labs: Abnormal Lab Results - Last 24 Hours (Table) 09/05/22 09/05/22 09/05/22 Range/Units 04:40 04:40 06:22 WBC 10.13 H (4.50-10.00) X 10*3/uL RBC 4.23 L (4.40-5.60) X 10*6/uL Hgb 12.2 L (13.0-17.0) g/dL Hct 36.6 L (39.6-50.0) % RDW 16.2 H (11.5-14.5) % Immature Gran # 0.11 H (0.00-0.04) X 10*3/uL Neutrophils # 9.18 H (1.80-7.70) X 10*3/uL Lymphocytes # 0.30 L (0.90-5.00) X 10*3/uL Eosinophils # 0 L (0.04-0.35) X 10*3/uL Chloride 90 L (96-109) mmol/L Carbon Dioxide 38.1 H (20.0-27.5) mmol/L Anion Gap 6.90 L (10.00-18.00) mmol/L BUN/Creatinine Ratio 31.86 H (12.00-20.00) Ratio Glucose 135 H (70-110) mg/dL POC Glucose (mg/dL) 145 H (70-110) mg/dL Calcium 8.6 L (8.7-10.3) mg/dL 09/05/22 09/05/22 09/05/22 Range/Units 11:28 16:34 19:52 WBC (4.50-10.00) X 10*3/uL RBC (4.40-5.60) X 10*6/uL Hgb (13.0-17.0) g/dL Hct (39.6-50.0) % RDW (11.5-14.5) % Immature Gran # (0.00-0.04) X 10*3/uL Neutrophils # (1.80-7.70) X 10*3/uL Lymphocytes # (0.90-5.00) X 10*3/uL Eosinophils # (0.04-0.35) X 10*3/uL Chloride (96-109) mmol/L Carbon Dioxide (20.0-27.5) mmol/L Anion Gap (10.00-18.00) mmol/L BUN/Creatinine Ratio (12.00-20.00) Ratio Glucose (70-110) mg/dL POC Glucose (mg/dL) 186 H 175 H 201 H (70-110) mg/dL Calcium (8.7-10.3) mg/dL Assessment and Plan Assessment: Acute COPD exacerbation Acute hypoxic respiratory failure secondary above Hyponatremia, chronic Nicotine dependence Diabetes mellitus Hypertension Hyperlipidemia History of osteoarthritis History of GERD Diabetic neuropathy of feet and hands Chronic back pain Polyarthralgia History of falls History of anxiety and depression, not in activation Chronic atrial fibrillation anticoagulated with Eliquis. Plan: Continue with IV steroids, currently Solu-Medrol 60 mg IV Q6. Also on Pulmicort and Perforomist. Antibiotics in form of Levaquin. Continue with bronchodilator Pulmonary is on board DVT prophylaxis: Eliquis GI Prophylaxis: Pepcid PT/OT: Pending Prognosis is guarded Time with Patient: Greater than 30
[2022-09-05] MEDS: PANTOPRAZOLE 40 MG TABLET PO SCH (23:13)
[2022-09-06] MEDS: IPRATROPIUM-ALBUTEROL 3 ML NEB INHALATION SCH ×6 (04:03→23:48)
[2022-09-06] MEDS: GABAPENTIN 100 MG CAP PO SCH ×3 (05:46→20:23)
[2022-09-06] MEDS: methylPREDNISolone SOD SUCCI 125 MG/2 ML VIAL IV SCH ×4 (05:47→22:37)
[2022-09-06 06:07] LABS: Glucose,Whole Blood 166 mg/dL (70-110)
[2022-09-06] MEDS: INSULIN ASPART (NovoLOG) 100 UNIT/ML VIAL SQ SCH ×4 (06:33→22:36)
[2022-09-06] MEDS: METOPROLOL TARTRATE 50 MG TAB PO SCH ×2 (08:10→20:24)
[2022-09-06] MEDS: amLODIPine 10 MG TAB PO SCH (08:10)
[2022-09-06] MEDS: ESCITALOPRAM 5 MG TAB PO SCH (08:10)
[2022-09-06] MEDS: APIXABAN 5 MG TAB PO SCH ×2 (08:10→20:24)
[2022-09-06] MEDS: NICOTINE 21MG/24HR PATCH TRANSDERM SCH (08:10)
[2022-09-06] MEDS: PANTOPRAZOLE 40 MG TABLET PO SCH (08:10)
[2022-09-06] MEDS: HYDROcodone/APAP 7.5-325MG 1 EACH TAB PO PRN ×3 (08:10→20:24)
[2022-09-06] MEDS: FAMOTIDINE 20 MG TAB PO SCH ×2 (08:10→20:24)
[2022-09-06] MEDS: metFORMIN 500 MG TAB PO SCH ×2 (08:10→20:24)
[2022-09-06] MEDS: FORMOTEROL FUMARATE 20 MCG/2 ML NEBU INHALATION SCH ×2 (08:53→21:09)
[2022-09-06] MEDS: BUDESONIDE 1 MG/2 ML NEBU INHALATION SCH ×2 (08:53→21:09)
[2022-09-06 09:25] LABS: Basophils # (A) 0.01 X 10*3/uL (0.00-0.10); Basophils % (A) 0.1 %; Eosinophils # (A) 0 X 10*3/uL (0.04-0.35); Eosinophils % (A) 0 %; HCT 36.8 % (39.6-50.0); HGB 12.2 g/dL (13.0-17.0); Immature Grans, Automated 1.2 %; Lymphocytes # (A) 0.28 X 10*3/uL (0.90-5.00); Lymphocytes % (A) 2.9 %; MCH 28.6 pg (27.0-32.0); MCHC 33.2 g/dL (32.0-37.0); MCV 86.4 fL (80.0-97.0); Mean Platelet Volume 9.7 fL (9.5-12.2); Monocytes % (A) 4.2 %; NRBC Per 100 WBC 0 /100 WBCS (0.0-0.0); Neutrophils # (A) 8.76 X 10*3/uL (1.80-7.70); Neutrophils % (A) 91.6 %; Platelet Count 244 X 10*3/uL (140-440); RBC 4.26 X 10*6/uL (4.40-5.60); RDW 16.2 % (11.5-14.5); WBC 9.56 X 10*3/uL (4.50-10.00)
[2022-09-06 09:27] LABS: African American GFR (CKD) 109.3 (60.0-200.0); Anion Gap 7.6 mmol/L (10.00-18.00); BUN/Creat Ratio 31.14 Ratio (12.00-20.00); Blood Urea Nitrogen 21.8 mg/dL (9.0-27.0); Calcium 8.3 mg/dL (8.7-10.3); Carbon Dioxide 36.4 mmol/L (20.0-27.5); Non-African American GFR(CKD) 94.3 (60.0-200.0); Potassium 4.3 mmol/L (3.5-5.5)
[2022-09-06 10:42] LABS: Glucose,Whole Blood 192 mg/dL (70-110)
[2022-09-06] MEDS: LEVOFLOXACIN 500MG-D5W PMX 500 MG in DEXTROSE/WATER 1 100ML.BAG IVPB SCH (13:15)
--- NOTE | 2022-09-06 13:32 | P.PN ---
Subjective Progress Note Date: 09/06/22 This is 71-year-old male patient with a history of morbid obesity, diabetes mellitus, atrial fibrillation, hypertension, hyperlipidemia, diabetic neuropathy, anxiety/depression, chronic hypoxemic respiratory failure secondary to chronic obstructive pulmonary disease from chronic tobacco dependence. He goldstein s oxygen dependent. He does continue to smoke. He's had multiple admissions for COPD exacerbations. He has not been to our office due to transportation issues according to him. He presented here to the emergency room yesterday with complaints of increasing shortness of breath, cough and congestion. Chest x-ray reveals no acute pulmonary process. White count 7.8. He will 12.9. Platelets 244. Sodium 132. Potassium 4.6. BUN 11. Creatinine 0.6. Verdin virus not detected. Influenza screen negative. ProBNP 233. He is initiated on DuoNeb inhalations, Pulmicort and Perforomist inhalations, IV Solu-Medrol. Empiric antibiotics in the form of azithromycin. NicoDerm patch applied. He is seen today in consultation on the regular medical floor. He sitting up in bed. Awake and alert in no acute distress. Breathing a bit easier today compared to yesterday. Maintaining good O2 saturations in the 90s on 2 L/m nasal cannula. I'm evaluating this patient today on 08/31/2022. He appears quite comfortable lying in bed. He is maintained on 3 L nasal cannula. Denies any significant shortness of breath or fevers. No new CBC or BMP today. Most recent chest x- ray from 08/29/2022 revealed no acute cardiopulmonary process. Patient is maintained on DuoNeb inhalations every 4 hours, budesonide inhalation twice a day, and Perforomist. He is also receiving IV Solu-Medrol. She is empirically covered with Zithromax. Patient does have history of atrial fibrillation and is anticoagulated on Eliquis. Vital signs are stable. Normal I'm reevaluating this patient today on 09/01/2022. He appears fairly comfortable in bed, however, his oxygen requirements have increased. He is currently maintained on 8 L nasal cannula. Denies significant shortness of breath or fevers. No new labs today. No new chest x-ray today. Continues to be maintained on DuoNeb inhalations, budesonide inhalation, and Perforomist inhalation. Continues to receive IV Solu-Medrol. Course of Zithromax has been completed. Continues to be anticoagulated with Eliquis 2 history of A. fib. Being diuresed with 40 mg by mouth Lasix daily. Does not appear there is accurate intake and output documentation. Vital signs are stable. Reevaluating this patient today on 09/02/2022. He appears comfortable and then, and his oxygen requirements have decreased. He is currently on 3 L nasal cannula. He denies any significant shortness of breath or fevers. He continues to have a nonproductive, congested cough. We are continuing DuoNeb inhalations, budesonide inhalation, Perforomist inhalation. Continues on Solu-Medrol. has been diuresed with Lasix 40 mg daily. BMP from today shows a sodium of 135, potassium 4.5, chloride 93, serum CO2 33, BUN 18, creatinine 0.7. Anticoagulated on Eliquis. Vital signs remained stable, and heart rate is controlled at 88 bpm. The patient is seen today 09/03/2022 in follow-up on the regular medical floor. He is currently sitting up in a chair at the bedside. Awake and alert in no acute distress. He has been slow to progress. Continues to eat 3 L nasal cannula with O2 saturations at 97%. Afebrile. Hemodynamically stable. Blood sugar 146. Remains on Pulmicort and Perforomist inhalations, DuoNeb inhalations, IV Solu-Medrol. Antibiotics in form of Levaquin. NicoDerm patch in place. The patient is seen today 09/04/2022 in follow-up on the regular medical floor. He is currently sitting up in a chair at the bedside. Awake and alert in no acu te distress. Continues to state he is still having some shortness of breath with minimal exertion. He is continued on DuoNeb inhalations, Pulmicort and Perforomist inhalations, IV Solu-Medrol. NicoDerm patch in place. Anticoagulated with Eliquis. Maintaining good O2 saturations in the mid to up per 90s on 3 L/m per nasal cannula. Afebrile. Hemodynamically stable. White count 10.5. Hemoglobin 12.3. Sodium 133. Potassium 4.4. BUN 22. Creatinine 0.7. Glucose 198. The patient is seen today 09/06/2022 in follow-up on the regular medical floor. He is awake and alert in no acute distress. He sitting up in a chair at the bedside. Feeling a bit better today. He has been slow to progress. He's been maintained on bronchodilators, IV Solu-Medrol, diuretics. He is on Eliquis. NicoDerm patch in place. Currently on antibiotics in the form of Levaquin. Follow-up chest x-ray reveals no acute pulmonary disease. Evidence of COPD. White count 9.5. Hemoglobin 12.2. Platelets 244. Sodium 134. Potassium 4.3. BUN 22. Creatinine 0.7. Glucose 140. Objective - Vital Signs Vital signs: Vital Signs Temp 99 F 09/06/22 08:00 Pulse 103 H 09/06/22 12:48 Resp 17 09/06/22 08:00 BP 112/66 09/06/22 08:00 Pulse Ox 99 09/06/22 08:56 FiO2 Intake & Output 09/05/22 09/06/22 09/06/22 18:59 06:59 18:59 Intake Total 950 Balance 950 Intake: Intake, IV Titration 100 Amount Levofloxacin 500Mg-D5w 100 Pmx 500 mg In Dextrose/ Water 1 100ml.bag @ 100 mls/hr IVPB Q24H [facility] Rx#: [id number] Oral 850 Other: Voiding Method Toilet # Voids 3 4 # Bowel Movements 0 - Exam GENERAL EXAM: Alert, obese, 71-year-old male, appears stated age, up in a chair at the bedside, on 3 L nasal cannula, comfortable in no apparent distress. HEAD: Normocephalic. EYES: Normal reaction of pupils, equal size. NOSE: Clear with pink turbinates. THROAT: No erythema or exudates. NECK: No masses, no JVD. CHEST: No chest wall deformity. LUNGS: Equal air entry with no crackles, rhonchi or dullness. There are expiratory wheezes throughout. Diminished. CVS: S1 and S2 normal with no audible murmur, irregular rhythm. ABDOMEN: No hepatosplenomegaly, normal bowel sounds, no guarding or rigidity. SPINE: No scoliosis or deformity SKIN: No rashes CENTRAL NERVOUS SYSTEM: No focal deficits, tone is normal in all 4 extremities. EXTREMITIES: There is one plus peripheral edema. No clubbing, no cyanosis. Peripheral pulses are intact. - Labs CBC & Chem 7: 09/06/22 03:22 09/06/22 03:22 Labs: Abnormal Lab Results - Last 24 Hours (Table) 09/05/22 09/05/22 09/06/22 Range/Units 16:34 19:52 03:22 RBC 4.26 L (4.40-5.60) X 10*6/uL Hgb 12.2 L (13.0-17.0) g/dL Hct 36.8 L (39.6-50.0) % RDW 16.2 H (11.5-14.5) % Immature Gran # 0.11 H (0.00-0.04) X 10*3/uL Neutrophils # 8.76 H (1.80-7.70) X 10*3/uL Lymphocytes # 0.28 L (0.90-5.00) X 10*3/uL Eosinophils # 0 L (0.04-0.35) X 10*3/uL Sodium (135-145) mmol/L Chloride (96-109) mmol/L Carbon Dioxide (20.0-27.5) mmol/L Anion Gap (10.00-18.00) mmol/L BUN/Creatinine Ratio (12.00-20.00) Ratio Glucose (70-110) mg/dL POC Glucose (mg/dL) 175 H 201 H (70-110) mg/dL Calcium (8.7-10.3) mg/dL 09/06/22 09/06/22 09/06/22 Range/Units 03:22 06:06 10:41 RBC (4.40-5.60) X 10*6/uL Hgb (13.0-17.0) g/dL Hct (39.6-50.0) % RDW (11.5-14.5) % Immature Gran # (0.00-0.04) X 10*3/uL Neutrophils # (1.80-7.70) X 10*3/uL Lymphocytes # (0.90-5.00) X 10*3/uL Eosinophils # (0.04-0.35) X 10*3/uL Sodium 134 L (135-145) mmol/L Chloride 90 L (96-109) mmol/L Carbon Dioxide 36.4 H (20.0-27.5) mmol/L Anion Gap 7.60 L (10.00-18.00) mmol/L BUN/Creatinine Ratio 31.14 H (12.00-20.00) Ratio Glucose 140 H (70-110) mg/dL POC Glucose (mg/dL) 166 H 192 H (70-110) mg/dL Calcium 8.3 L (8.7-10.3) mg/dL Assessment and Plan Assessment: Acute exacerbation of chronic obstructive pulmonary disease or a chest x-ray reveals no acute pulmonary process. Pro-calcitonin 0.03. Acute on chronic hypoxemic respiratory failure secondary to above Chronic and ongoing tobacco dependence of 50+ years Morbid obesity Hypertension Hyperlipidemia Atrial fibrillation, anticoagulated with Eliquis Diabetes mellitus Diabetic neuropathy History of noncompliance History of diastolic congestive heart failure Plan: The patient was seen and evaluated Medications and labs reviewed Improved and nearly back to his baseline Remains on bronchodilators, mucinex, steroids Empiric antibiotics in the form of Levaquin Again educated regarding the importance of complete smoking cessation NicoDerm patch in place Possible discharge in a.m. We'll continue to follow I have personally seen and examined the patient, performed the documentation and the assessment and plan as written. Number of minutes spent on the visit: 10.
[2022-09-06] MEDS ORDERED: MELATONIN 3 MG TABLET PO PRN (14:03)
[2022-09-06 16:42] LABS: Glucose,Whole Blood 181 mg/dL (70-110)
[2022-09-06] MEDS: MELATONIN 3 MG TABLET PO PRN ×2 (18:00→20:24)
[2022-09-06] MEDS: FUROSEMIDE 40 MG TAB PO SCH (20:24)
[2022-09-06] MEDS: ATORVASTATIN 20 MG TAB PO SCH (20:24)
[2022-09-06] MEDS: TAMSULOSIN 0.4 MG CAP.ER.24H PO SCH (20:24)
[2022-09-06 21:14] LABS: Glucose,Whole Blood 244 mg/dL (70-110)
[2022-09-07 01:40] VITALS: RESP 19
[2022-09-07] MEDS: IPRATROPIUM-ALBUTEROL 3 ML NEB INHALATION SCH ×3 (04:14→12:34)
[2022-09-07] MEDS: methylPREDNISolone SOD SUCCI 125 MG/2 ML VIAL IV SCH (05:11)
[2022-09-07] MEDS: HYDROcodone/APAP 7.5-325MG 1 EACH TAB PO PRN ×2 (05:11→12:34)
[2022-09-07] MEDS: GABAPENTIN 100 MG CAP PO SCH ×2 (05:11→12:36)
[2022-09-07 06:04] LABS: Glucose,Whole Blood 169 mg/dL (70-110)
[2022-09-07] MEDS: INSULIN ASPART (NovoLOG) 100 UNIT/ML VIAL SQ SCH ×2 (06:55→12:35)
[2022-09-07 07:52] VITALS: BP 113/71; TEMP 97.9
[2022-09-07] MEDS: METOPROLOL TARTRATE 50 MG TAB PO SCH (08:21)
[2022-09-07] MEDS: metFORMIN 500 MG TAB PO SCH (08:21)
[2022-09-07] MEDS: APIXABAN 5 MG TAB PO SCH (08:21)
[2022-09-07] MEDS: amLODIPine 10 MG TAB PO SCH (08:21)
[2022-09-07] MEDS: PANTOPRAZOLE 40 MG TABLET PO SCH (08:21)
[2022-09-07] MEDS: ESCITALOPRAM 5 MG TAB PO SCH (08:21)
[2022-09-07] MEDS: FAMOTIDINE 20 MG TAB PO SCH (08:21)
[2022-09-07] MEDS: NICOTINE 21MG/24HR PATCH TRANSDERM SCH (08:21)
[2022-09-07 08:54] LABS: Basophils # (A) 0.01 X 10*3/uL (0.00-0.10); Basophils % (A) 0.1 %; Eosinophils # (A) 0 X 10*3/uL (0.04-0.35); Eosinophils % (A) 0 %; HCT 38.9 % (39.6-50.0); HGB 12.9 g/dL (13.0-17.0); Immature Grans, Automated 1.8 %; Lymphocytes # (A) 0.34 X 10*3/uL (0.90-5.00); Lymphocytes % (A) 3.5 %; MCH 28.7 pg (27.0-32.0); MCHC 33.2 g/dL (32.0-37.0); MCV 86.6 fL (80.0-97.0); Mean Platelet Volume 9.5 fL (9.5-12.2); Monocytes # (A) 0.46 X 10*3/uL (0.20-1.00); Monocytes % (A) 4.8 %; NRBC Per 100 WBC 0 /100 WBCS (0.0-0.0); Neutrophils # (A) 8.65 X 10*3/uL (1.80-7.70); Neutrophils % (A) 89.8 %; Platelet Count 253 X 10*3/uL (140-440); RBC 4.49 X 10*6/uL (4.40-5.60); RDW 16.1 % (11.5-14.5); WBC 9.63 X 10*3/uL (4.50-10.00)
[2022-09-07] MEDS: BUDESONIDE 1 MG/2 ML NEBU INHALATION SCH (09:01)
[2022-09-07] MEDS: FORMOTEROL FUMARATE 20 MCG/2 ML NEBU INHALATION SCH (09:01)
[2022-09-07 09:11] LABS: African American GFR (CKD) 108.1 (60.0-200.0); Anion Gap 10.8 mmol/L (10.00-18.00); BUN/Creat Ratio 30.74 Ratio (12.00-20.00); Blood Urea Nitrogen 22.1 mg/dL (9.0-27.0); Calcium 8.2 mg/dL (8.7-10.3); Carbon Dioxide 34.5 mmol/L (20.0-27.5); Non-African American GFR(CKD) 93.3 (60.0-200.0); Potassium 4.3 mmol/L (3.5-5.5)
--- NOTE | 2022-09-07 11:11 | P.PN ---
Subjective Progress Note Date: 09/06/22 This is a pleasant 71 years old male with multiple medical problems including COPD he presents because of worsening dyspnea Present because of progressive dyspnea for about 3 weeks, slowly progressive associated with cough and age phlegm as patient is guarded, but denies any current chest pain. Patient states that yesterday he had chest pain for about an hour on his left side but bows. And treated as 0/10. Patient looks pretty comfortable in bed, he denies any headache weakness numbness or dizziness. No abdominal pain vomiting . No urinary complaint Patient admits having little diarrhea for 1 day duration but no fever Patient smokes about 1.5 pack per day he was counseled to quit but he declines and he agrees to nicotine patch At home he is on oxygen at 3 L/m, he states that he follows up with Dr. Robert Ott looks stable and his saturation 94% at 4 L oxygen via nasal cannula CBC is unremarkable, as well as INR. Sodium 124, patient has chronic hyponatremia with range 122-1:30. Creatinine 0.5. Liver enzymes not elevated. Urine analysis is negative. Coronavirus and influenza virus is are negative. EKG showing atrial fibrillation with rate control at [address]-T changes Chest x-ray: No acute cardiopulmonary process Patient is started on IV Solu-Medrol and breathing treatment patient also received 1 L of normal saline in the emergency room 08/30/2022 Patient breathing improving gradually and he's feeling better today Oxygen requirement went down to 2 L/m. Continue with Solu-Medrol, Zithromax added today which looks appropriate Sodium improved to 132 Patient is counseled to quit smoking Possible discharge in 24-40 Actos if he keeps improving 08/31/2022 Patient still wheezing and filling dyspneic, on exam also has prolonged expiration. He's on 3 L oxygen via nasal cannula which is his home dose. Patient currently on Solu-Medrol 60 mg, oral Zithromax and his home dose of Eliquis. Home health care is ordered for him 09/01/2022 Patient still significantly wheezing and shortness of breath, he is in the 3 L oxygen He remains on the same treatment of IV Solu-Medrol and Zithromax Patient slept better after increasing his melatonin to 9 mg upon his request. He requested Valium, MAPS was checked last time he received Valium was on June more than 2 months ago, Xanax effort anesthetic and he declines. I explained for the patient Valium has more risk than benefit and he agrees to hold for now 09/02/2022 Patient with no significant improvement, still complain from dyspnea and wheezing. Is currently on IV Solu-Medrol and antibiotic with Levaquin. Continue with present treatment He is at baseline of oxygen requirement of 3 L/m Sodium improved to 135 09/03/2022 Patient is currently sitting in the recliner. Awake alert and oriented. Still having exertional dyspnea and diffuse wheezing on exam. Requiring oxygen 3 L via nasal cannula. Patient is being treated on IV Solu-Medrol, Pulmicort and Perforomist and DuoNeb inhalations. Also on antibiotics in the form of Levaquin. Laboratory data reviewed. Procalcitonin level is 0.03. 09/04/2022 Patient is currently sitting in recliner. Awake alert and oriented. Still having bilateral diffuse wheezing and rhonchi. Shortness of breath with minimal exertion. Patient was complaining of gastric upset and was started on Maalox. Otherwise patient is being current on DuoNebs, Pulmicort, Perforomist, IV Solu- Medrol and also on anticoagulation with Eliquis. Laboratory data showed WBC 10.4 hemoglobin 12.3 and platelets 251 Sodium 133 potassium 4.4 chloride 88 bicarb is 35.6 BUN 22.1 and creatinine 0.7 and blood sugar is 198 and calcium 8.5. 09/05/2022 Patient is currently sitting in the chair. Awake alert and oriented. Continues to have wheezing and exertional shortness of breath. Continued on IV Solu- Medrol, duo nebs and antibiotics in the form of Levaquin. Pulmonary is on boar d. Considering bronchoscopy. Breathing status remains the same. Patient has been afebrile. No nausea vomiting abdominal pain or diarrhea. Cough without any sputum production. No headache or dizziness or lightheadedness. Laboratory pressure WBC 10.1 hemoglobin 12.1 platelets 253 Sodium 134 potassium 4.5 chloride 90 bicarb is 38.1 BUN 22.3 and creatinine 0.7 and blood sugar is 135 and calcium 8.6. 09/06/22 Patient is currently sitting in the chair. Awake alert and oriented. Patient states that his breathing is better today. Still having bilateral wheezing. No complains of chest pain. Patient is being continued on IV Solu-Medrol, DuoNeb's and also antibiotic of Levaquin. Patient has been afebrile. Cough without any sputum production. Laboratory data showed there was 9.4 hemoglobin 12.2 and platelets 244 sodium 134 potassium 4.3 chloride 90 bicarb is 36.4 BUN 21.8 and creatinine 2.7 and blood sugar is 140 Current medications reviewed. Objective - Vital Signs Vital signs: Vital Signs Temp 98.2 F 09/06/22 20:00 Pulse 92 09/06/22 21:29 Resp 18 09/06/22 20:00 BP 120/63 09/06/22 20:00 Pulse Ox 94 L 09/06/22 20:00 FiO2 Intake & Output 09/06/22 09/06/22 09/07/22 06:59 18:59 06:59 Other: Voiding Method Toilet # Voids 4 - Exam - Exam GENERAL: The patient is alert and oriented x3, not in any acute distress. Well developed, well nourished. HEENT: Pupils are round and equally reacting to light. EOMI. No scleral icterus. No conjunctival pallor. Normocephalic, atraumatic. No pharyngeal erythema. No thyromegaly. CARDIOVASCULAR: S1 and S2 present. No murmurs, rubs, or gallops. PULMONARY: Chest is clear to auscultation, nay diffuse wheezing . No rhonchi. no crackles. ABDOMEN: Soft, nontender, nondistended, normoactive bowel sounds. No palpable organomegaly. MUSCULOSKELETAL: No joint swelling or deformity. EXTREMITIES: No cyanosis, clubbing, or pedal edema. NEUROLOGICAL: Gross neurological examination did not reveal any focal deficits. SKIN: No rashes. no petechiae. - Labs CBC & Chem 7: 09/07/22 06:10 09/07/22 06:10 Labs: Abnormal Lab Results - Last 24 Hours (Table) 09/06/22 09/06/22 09/06/22 Range/Units 03:22 03:22 06:06 RBC 4.26 L (4.40-5.60) X 10*6/uL Hgb 12.2 L (13.0-17.0) g/dL Hct 36.8 L (39.6-50.0) % RDW 16.2 H (11.5-14.5) % Immature Gran # 0.11 H (0.00-0.04) X 10*3/uL Neutrophils # 8.76 H (1.80-7.70) X 10*3/uL Lymphocytes # 0.28 L (0.90-5.00) X 10*3/uL Eosinophils # 0 L (0.04-0.35) X 10*3/uL Sodium 134 L (135-145) mmol/L Chloride 90 L (96-109) mmol/L Carbon Dioxide 36.4 H (20.0-27.5) mmol/L Anion Gap 7.60 L (10.00-18.00) mmol/L BUN/Creatinine Ratio 31.14 H (12.00-20.00) Ratio Glucose 140 H (70-110) mg/dL POC Glucose (mg/dL) 166 H (70-110) mg/dL Calcium 8.3 L (8.7-10.3) mg/dL 09/06/22 09/06/22 09/06/22 Range/Units 10:41 16:40 21:13 RBC (4.40-5.60) X 10*6/uL Hgb (13.0-17.0) g/dL Hct (39.6-50.0) % RDW (11.5-14.5) % Immature Gran # (0.00-0.04) X 10*3/uL Neutrophils # (1.80-7.70) X 10*3/uL Lymphocytes # (0.90-5.00) X 10*3/uL Eosinophils # (0.04-0.35) X 10*3/uL Sodium (135-145) mmol/L Chloride (96-109) mmol/L Carbon Dioxide (20.0-27.5) mmol/L Anion Gap (10.00-18.00) mmol/L BUN/Creatinine Ratio (12.00-20.00) Ratio Glucose (70-110) mg/dL POC Glucose (mg/dL) 192 H 181 H 244 H (70-110) mg/dL Calcium (8.7-10.3) mg/dL Assessment and Plan Assessment: Acute COPD exacerbation. Slow improvement. Acute hypoxic respiratory failure secondary above Hyponatremia Nicotine dependence Diabetes mellitus Hypertension Hyperlipidemia History of osteoarthritis History of GERD Diabetic neuropathy of feet and hands Chronic back pain Polyarthralgia History of falls History of anxiety and depression, not in activation Chronic atrial fibrillation anticoagulated with Eliquis. Plan: Continue with IV steroids, currently Solu-Medrol 60 mg IV Q6. Also on Pulmicort and Perforomist. Antibiotics in form of Levaquin. Continue with bronchodilator Pulmonary is on board DVT prophylaxis: Eliquis GI Prophylaxis: Pepcid PT/OT: Pending Prognosis is guarded
[2022-09-07 11:35] LABS: Glucose,Whole Blood 140 mg/dL (70-110)
[2022-09-07] MEDS ORDERED: predniSONE 20 MG TAB PO SCH (12:00)
[2022-09-07 12:43] VITALS: PULSE 93
--- NOTE | 2022-09-07 14:34 | P.PN ---
Subjective Progress Note Date: 09/07/22 Principal diagnosis: Dyspnea, COPD This is 71-year-old male patient with a history of morbid obesity, diabetes mellitus, atrial fibrillation, hypertension, hyperlipidemia, diabetic neuropathy, anxiety/depression, chronic hypoxemic respiratory failure secondary to chronic obstructive pulmonary disease from chronic tobacco dependence. He has oxygen dependent. He does continue to smoke. He's had multiple admissions for COPD exacerbations. He has not been to our office due to transportation issues according to him. He presented here to the emergency room yesterday with complaints of increasing shortness of breath, cough and congestion. Chest x-ray reveals no acute pulmonary process. White count 7.8. He will 12.9. Platelets 244. Sodium 132. Potassium 4.6. BUN 11. Creatinine 0.6. Verdin virus not detected. Influenza screen negative. ProBNP 233. He is initiated on DuoNeb inhalations, Pulmicort and Perforomist inhalations, IV Solu-Medrol. Empiric antibiotics in the form of azithromycin. NicoDerm patch applied. He is seen today in consultation on the regular medical floor. He sitting up in bed. Awake and alert in no acute distress. Breathing a bit easier today compared to yesterday. Maintaining good O2 saturations in the 90s on 2 L/m nasal cannula. I'm evaluating this patient today on 08/31/2022. He appears quite comfortable lying in bed. He is maintained on 3 L nasal cannula. Denies any significant shortness of breath or fevers. No new CBC or BMP today. Most recent chest x- ray from 08/29/2022 revealed no acute cardiopulmonary process. Patient is maintained on DuoNeb inhalations every 4 hours, budesonide inhalation twice a day, and Perforomist. He is also receiving IV Solu-Medrol. She is empirically covered with Zithromax. Patient does have history of atrial fibrillation and is anticoagulated on Eliquis. Vital signs are stable. Normal I'm reevaluating this patient today on 09/01/2022. He appears fairly comfortable in bed, however, his oxygen requirements have increased. He is currently maintained on 8 L nasal cannula. Denies significant shortness of breath or fevers. No new labs today. No new chest x-ray today. Continues to be maintained on DuoNeb inhalations, budesonide inhalation, and Perforomist inhalation. Continues to receive IV Solu-Medrol. Course of Zithromax has been completed. Continues to be anticoagulated with Eliquis 2 history of A. fib. Being diuresed with 40 mg by mouth Lasix daily. Does not appear there is accurate intake and output documentation. Vital signs are stable. Reevaluating this patient today on 09/02/2022. He appears comfortable and then, and his oxygen requirements have decreased. He is currently on 3 L nasal cannula. He denies any significant shortness of breath or fevers. He continues to have a nonproductive, congested cough. We are continuing DuoNeb inhalations, budesonide inhalation, Perforomist inhalation. Continues on Solu-Medrol. has been diuresed with Lasix 40 mg daily. BMP from today shows a sodium of 135, potassium 4.5, chloride 93, serum CO2 33, BUN 18, creatinine 0.7. Anticoagulated on Eliquis. Vital signs remained stable, and heart rate is controlled at 88 bpm. The patient is seen today 09/03/2022 in follow-up on the regular medical floor. He is currently sitting up in a chair at the bedside. Awake and alert in no acute distress. He has been slow to progress. Continues to eat 3 L nasal cannula with O2 saturations at 97%. Afebrile. Hemodynamically stable. Blood sugar 146. Remains on Pulmicort and Perforomist inhalations, DuoNeb inhalations, IV Solu-Medrol. Antibiotics in form of Levaquin. NicoDerm patch in place. The patient is seen today 09/04/2022 in follow-up on the regular medical floor. He is currently sitting up in a chair at the bedside. Awake and alert in no acute distress. Continues to state he is still having some shortness of breath with minimal exertion. He is continued on DuoNeb inhalations, Pulmicort and Perforomist inhalations, IV Solu-Medrol. NicoDerm patch in place. Anticoagulated with Eliquis. Maintaining good O2 saturations in the mid to upper 90s on 3 L/m per nasal cannula. Afebrile. Hemodynamically stable. White count 10.5. Hemoglobin 12.3. Sodium 133. Potassium 4.4. BUN 22. Creatinine 0.7. Glucose 198. The patient is seen today 09/06/2022 in follow-up on the regular medical floor. He is awake and alert in no acute distress. He sitting up in a chair at the bedside. Feeling a bit better today. He has been slow to progress. He's been maintained on bronchodilators, IV Solu-Medrol, diuretics. He is on Eliquis. NicoDerm patch in place. Currently on antibiotics in the form of Levaquin. Follow-up chest x-ray reveals no acute pulmonary disease. Evidence of COPD. White count 9.5. Hemoglobin 12.2. Platelets 244. Sodium 134. Potassium 4.3. BUN 22. Creatinine 0.7. Glucose 140. I'm reevaluating this patient today on 09/07/2022 on a regular medical floor. He is awake, in bed, on 3 L nasal cannula, and in no acute distress. patient denies shortness of breath, cough, fever, or chest pain. patient feels that he is ready for discharge. no new chest x-ray to review today. CBC stable with a WBC count of 9.6, hemoglobin 13, hematocrit 38.9, platelets 253,000.BMP from today also quite stable with a sodium of 133, potassium 4.3, chloride 87, serum CO2 34.5, BUN 22, creatinine 0.7, glucose 169.patient currently managed on DuoNeb inhalation, Pulmicort inhalation, Perforomist inhalation, IV Solu-Medrol, and empiric Levaquin. vital signs stable on 3 L nasal cannula. Objective - Vital Signs Vital signs: Vital Signs Temp 97.9 F 09/07/22 07:51 Pulse 93 09/07/22 12:43 Resp 19 09/07/22 07:51 BP 113/71 09/07/22 07:51 Pulse Ox 97 09/07/22 09:03 FiO2 Intake & Output 09/06/22 09/07/22 09/07/22 18:59 06:59 18:59 Other: # Voids 4 - Exam GENERAL EXAM: Alert, obese male, appears stated age, comfortable in no apparent distress. HEAD: Normocephalic. EYES: Normal reaction of pupils, equal size. NOSE: Clear with pink turbinates. THROAT: No erythema or exudates. NECK: No masses, no JVD. CHEST: No chest wall deformity. LUNGS: Equal air entry with no crackles, rhonchi or dullness. no cough CVS: S1 and S2 normal with no audible murmur, irregular rhythm. ABDOMEN: No hepatosplenomegaly, normal bowel sounds, no guarding or rigidity. SPINE: No scoliosis or deformity SKIN: No rashes CENTRAL NERVOUS SYSTEM: No focal deficits, tone is normal in all 4 extremities. EXTREMITIES: There is no peripheral edema. No clubbing, no cyanosis. Peripheral pulses are intact. - Labs CBC & Chem 7: 09/07/22 06:10 09/07/22 06:10 Labs: Abnormal Lab Results - Last 24 Hours (Table) 09/06/22 09/06/22 09/07/22 Range/Units 16:40 21:13 06:02 Hgb (13.0-17.0) g/dL Hct (39.6-50.0) % RDW (11.5-14.5) % Immature Gran # (0.00-0.04) X 10*3/uL Neutrophils # (1.80-7.70) X 10*3/uL Lymphocytes # (0.90-5.00) X 10*3/uL Eosinophils # (0.04-0.35) X 10*3/uL Sodium (135-145) mmol/L Chloride (96-109) mmol/L Carbon Dioxide (20.0-27.5) mmol/L BUN/Creatinine Ratio (12.00-20.00) Ratio Glucose (70-110) mg/dL POC Glucose (mg/dL) 181 H 244 H 169 H (70-110) mg/dL Calcium (8.7-10.3) mg/dL 09/07/22 09/07/22 09/07/22 Range/Units 06:10 06:10 11:34 Hgb 12.9 L (13.0-17.0) g/dL Hct 38.9 L (39.6-50.0) % RDW 16.1 H (11.5-14.5) % Immature Gran # 0.17 H (0.00-0.04) X 10*3/uL Neutrophils # 8.65 H (1.80-7.70) X 10*3/uL Lymphocytes # 0.34 L (0.90-5.00) X 10*3/uL Eosinophils # 0 L (0.04-0.35) X 10*3/uL Sodium 133 L (135-145) mmol/L Chloride 87 L (96-109) mmol/L Carbon Dioxide 34.5 H (20.0-27.5) mmol/L BUN/Creatinine Ratio 30.74 H (12.00-20.00) Ratio Glucose 188 H (70-110) mg/dL POC Glucose (mg/dL) 140 H (70-110) mg/dL Calcium 8.2 L (8.7-10.3) mg/dL Assessment and Plan Assessment: Acute exacerbation of chronic obstructive pulmonary disease Acute on chronic hypoxemic respiratory failure secondary to above Chronic and ongoing tobacco dependence of 50+ years hyponatremia improved Morbid obesity Hypertension Hyperlipidemia Atrial fibrillation, anticoagulated with Eliquis Diabetes mellitus Diabetic neuropathy History of noncompliance History of diastolic congestive heart failure. Plan: The patient was seen and evaluated Medications and labs reviewed continue bronchodilators May taper steroids to oral prednisone Empiric antibiotics in the form of Levaquin Again educated regarding the importance of complete smoking cessation NicoDerm patch in place home 02 patient is cleared for discharge from a pulmonary standpoint. I have personally seen and examined the patient, performed the documentation and the assessment and plan as written. Number of minutes spent on the visit: [10 ]. Time with Patient: Less than 30
== END 2022-09-07 13:10 | disposition home health service (06) | DRG 190 ==
LOC: EC 10:10 → 4SSUR 11:44
PROVIDERS: ADMIT Internal Medicine; ATTEND Internal Medicine
DX: J44.1 Chronic obstructive pulmonary disease with (acute) exacerbation (principal); J96.21 Acute and chronic respiratory failure with hypoxia; E87.1 Hypo-osmolality and hyponatremia; I48.20 Chronic atrial fibrillation, unspecified; I50.32 Chronic diastolic (congestive) heart failure; E11.40 Type 2 diabetes mellitus with diabetic neuropathy, unspecified; E86.0 Dehydration; E66.01 Morbid (severe) obesity due to excess calories; I11.0 Hypertensive heart disease with heart failure; Z20.822 Contact with and (suspected) exposure to COVID-19; E87.8 Other disorders of electrolyte and fluid balance, not elsewhere classified; E78.5 Hyperlipidemia, unspecified; M19.90 Unspecified osteoarthritis, unspecified site; K21.9 Gastro-esophageal reflux disease without esophagitis; K42.9 Umbilical hernia without obstruction or gangrene; F17.210 Nicotine dependence, cigarettes, uncomplicated; Z71.6 Tobacco abuse counseling; F32.A Depression, unspecified; F41.9 Anxiety disorder, unspecified; G89.29 Other chronic pain; M54.9 Dorsalgia, unspecified; Z68.33 Body mass index [BMI] 33.0-33.9, adult; Z91.199 Patient's noncompliance with other medical treatment and regimen due to unspecified reason; Z99.81 Dependence on supplemental oxygen; Z79.01 Long term (current) use of anticoagulants; Z79.84 Long term (current) use of oral hypoglycemic drugs; Z79.899 Other long term (current) drug therapy; Z91.81 History of falling; Z71.3 Dietary counseling and surveillance; Z88.1 Allergy status to other antibiotic agents; Z88.0 Allergy status to penicillin; Z88.8 Allergy status to other drugs, medicaments and biological substances; Z82.5 Family history of asthma and other chronic lower respiratory diseases
CPT/HCPCS: 36415; 71045; 71046; 80048; 80053; 81001; 83036; 83735; 83880; 84145; 84484; 85025; 85610; 85730; 87502; 87635; 93005; 94640; 94760; 96360; 96361; 99285

== ENCOUNTER 2022-11-23 16:31 | Inpatient (IN) | payer MEDICARE, OTHER ==
[2022-11-23] MEDS ORDERED: FUROSEMIDE 10 MG/ML 4 ML VIAL IV STA (17:03)
[2022-11-23] MEDS ORDERED: IPRATROPIUM-ALBUTEROL 3 ML NEB INHALATION STA (17:03)
--- NOTE | 2022-11-23 17:04 | ED ---
General Adult HPI - General Chief complaint: Shortness of Breath Stated complaint: swelling Time Seen by Provider: 11/23/22 16:53 Source: patient, EMS, RN notes reviewed Mode of arrival: EMS Limitations: physical limitation - History of Present Illness Initial comments: Patient is a pleasant 72-year-old male presenting to emergency Department with chief complaint leg edema. Patient is somewhat a poor historian. Patient states that is causing some discomfort. Patient also has chronic pain and requests his [place] 7.5. Patient admits to having some source of breath. Patient has exertional dyspnea and orthopnea. No chest pain. - Related Data Home Medications Medication Instructions Recorded Confirmed Albuterol Nebulized [Ventolin 2.5 mg INHALATION RT-Q6H PRN 05/08/20 11/23/22 Nebulized] Atorvastatin [Lipitor] 20 mg PO HS 01/12/21 11/23/22 amLODIPine [Norvasc] 10 mg PO DAILY 01/12/21 11/23/22 Furosemide [Lasix] 40 mg PO BID 05/02/21 11/23/22 Ipratropium-Albuterol Nebulize 3 ml INHALATION RT-Q6H PRN 05/02/21 11/23/22 [Duoneb 0.5 mg-3 mg/3 ml Soln] Gabapentin [Neurontin] 100 mg PO TID 12/07/21 11/23/22 Tamsulosin [Flomax] 0.4 mg PO DAILY 12/07/21 11/23/22 Albuterol Sulfate [Proair Hfa] 2 puff INHALATION RT-Q6H PRN 02/18/22 11/23/22 Fluticasone Nasal [place] [Flonase 1 spray EA NOSTRIL Q12H PRN 02/18/22 11/23/22 Nasal [place]] HYDROcodone/APAP 7.5-325MG [[place] 1 tab PO Q4H PRN 02/18/22 11/23/22 7.5-325] Potassium Chloride [Klor-Con 10 ER] 10 meq PO DAILY 02/18/22 11/23/22 Theophylline Anhydrous 400 mg PO DAILY 02/18/22 11/23/22 [Theophylline] Escitalopram [Lexapro] 5 mg PO DAILY 08/29/22 11/23/22 Omeprazole 40 mg PO DAILY 08/29/22 11/23/22 hydrALAZINE HCL [Apresoline] 25 mg PO BID 11/23/22 11/23/22 predniSONE 5 mg PO DAILY 11/23/22 11/23/22 predniSONE [Deltasone] 20 mg PO DIRECTED 11/23/22 11/23/22 Previous Rx's Medication Instructions Recorded Apixaban [Eliquis] 5 mg PO BID #60 tab 07/08/20 Metoprolol Tartrate [Lopressor] 50 mg PO BID tab 09/07/22 metFORMIN HCL [Glucophage] 500 mg PO BID tab 09/07/22 Allergies Allergy/AdvReac Type Severity Reaction Status Date / Time ANJU Inhibitors Allergy Unknown - Verified 11/23/22 19:42 per [facility] doxycycline Allergy Anaphylaxis Verified 11/23/22 19:42 Penicillins Allergy Anaphylaxis, Verified 11/23/22 19:42 Seizure Review of Systems ROS Statement: Those systems with pertinent positive or pertinent negative responses have been documented in the HPI. ROS Other: All systems not noted in ROS Statement are negative. Constitutional: Denies: fever Eyes: Denies: eye pain ENT: Denies: ear pain Respiratory: Reports: as per HPI, dyspnea Cardiovascular: Reports: dyspnea on exertion, orthopnea, edema. Denies: chest pain Endocrine: Denies: fatigue Gastrointestinal: Denies: abdominal pain Genitourinary: Denies: dysuria Musculoskeletal: Denies: back pain Skin: Denies: rash Neurological: Denies: weakness Past Medical History Past Medical History: Atrial Fibrillation, Asthma, COPD, Diabetes Mellitus, GERD/Reflux, Hyperlipidemia, Hypertension, Osteoarthritis (OA), Pneumonia Additional Past Medical History / Comment(s): Afib RVR, home oxygen prn, bronchitis, pt states he is on metformin to prevent becoming diabetic, neuropathy bilateral feet/L hand, chronic pain back,/bilateral hips/knees/elbows and shoulders, L heel pain, FALLS, cataracts. History of Any Multi-Drug Resistant Organisms: None Reported Past Surgical History: Appendectomy Additional Past Surgical History / Comment(s): Colonoscopy Past Anesthesia/Blood Transfusion Reactions: No Reported Reaction Past Psychological History: Anxiety, Depression Smoking Status: Current every day smoker Past Alcohol Use History: None Reported Past Drug Use History: None Reported - Past Family History Father Family Medical History: Congestive Heart Failure (CHF), COPD Additional Family Medical History / Comment(s): Father was an alcoholic but was able to quit drinking Mother Family Medical History: Congestive Heart Failure (CHF), COPD Additional Family Medical History / Comment(s): Mother was an alcoholic. Daughter(s) Additional Family Medical History / Comment(s): Liver cancer General Exam Limitations: physical limitation General appearance: alert, in no apparent distress Head exam: Present: normocephalic Eye exam: Present: normal appearance Neck exam: Present: normal inspection Respiratory exam: Present: wheezes, rales, decreased breath sounds Cardiovascular Exam: Present: regular rate, irregular rhythm GI/Abdominal exam: Present: soft. Absent: tenderness Extremities exam: Present: pedal edema. Absent: calf tenderness Neurological exam: Present: alert Psychiatric exam: Present: normal affect, normal mood Skin exam: Present: normal color Course Vital Signs 11/23/22 11/23/22 11/23/22 16:37 19:39 19:40 Temperature 98.0 F Pulse Rate 78 90 80 Respiratory 18 26 H Rate Blood Pressure 118/76 112/60 O2 Sat by Pulse 97 99 Oximetry 11/23/22 11/23/22 11/23/22 19:52 20:00 20:01 Temperature Pulse Rate 87 73 Respiratory 22 Rate Blood Pressure 134/62 132/51 O2 Sat by Pulse 100 Oximetry EKG Findings - EKG Results: EKG: interpreted by ERMD (Low QRS voltage. Septal Q waves.), normal axis, normal ST/T EKG shows: atrial fibrillation Medical Decision Making - Medical Decision Making Was pt. sent in by a medical professional or institution (, PA, AROMATHERAPIST, urgent care, hospital, or fpc...) When possible be specific @ -No Did you speak to anyone other than the patient for history (EMS, parent, family, police, friend...)? What history was obtained from this source @ -No Did you review nursing and triage notes (agree or disagree)? Why? @ -I reviewed and agree with nursing and triage notes Were old charts reviewed (outside hosp., previous admission, EMS record, old EKG, old radiological studies, urgent care reports/EKG's, fpc records)? Report findings @ -Previous admission reviewed Differential Diagnosis (chest pain, altered mental status, abdominal pain women, abdominal pain men, vaginal bleeding, weakness, fever, dyspnea, syncope, headache, dizziness, GI bleed, back pain, seizure, CVA, palpatations, mental health)? @ -Differential Dyspnea: Coronary syndrome, arrhythmia, tamponade, asthma, COPD, pulmonary embolism, pneumonia, pneumothorax, pulmonary effusion, anaphylaxis, diabetic ketoacidosis, flailed chest, pulmonary contusion, diaphragmatic rupture, anemia, neuromuscular, this is not meant to be an all-inclusive list. EKG interpreted by me (3pts min.). @ -As above X-rays interpreted by me (1pt min.). @ -Chest x-ray shows increased interstitial markings consistent with CHF CT interpreted by me (1pt min.). @ -None done U/S interpreted by me (1pt. min.). @ -None done What testing was considered but not performed or refused? (CT, X-rays, U/S, labs)? Why? @ -None What meds were considered but not given or refused? Why? @ -None Did you discuss the management of the patient with other professionals (professionals i.e. , PA, AROMATHERAPIST, lab, RT, psych nurse, psychiatric social worker supervisor, airline station agent, teacher, police booking officer, mattress spring encaser)? Give summary @ -Case discussed with practitioner Tim Sal who will admit covering Dr. Mcnair, who will admit covering hospital call Was smoking cessation discussed for >3mins.? @ -No Was critical care preformed (if so, how long)? @ -No Were there social determinants of health that impacted care today? How? (Homelessness, low income, unemployed, alcoholism, drug addiction, transportation, low edu. Level, literacy, decrease access to med. care, retirement, rehab)? @ -No Was there de-escalation of care discussed even if they declined (Discuss DNR or withdrawal of care, Hospice)? DNR status @ -No What co-morbidities impacted this encounter? (DM, HTN, Smoking, COPD, CAD, Cancer, CVA, ARF, Chemo, Hep., AIDS, mental health diagnosis, sleep apnea, morbid obesity)? @ -None Was patient admitted / discharged? Hospital course, mention meds given and r oute, prescriptions, significant lab abnormalities, going to OR and other pertinent info. @ -Patient will be admitted for diuresis and COPD/CHF treatment. Admission orders written. Undiagnosed new problem with uncertain prognosis? @ -No Drug Therapy requiring intensive monitoring for toxicity (Heparin, Nitro, Insulin, Cardizem)? @ -No Were any procedures done? @ -No Diagnosis/symptom? @ -CHF, COPD Acute, or Chronic, or Acute on Chronic? @ -Acute on chronic, acute on chronic Uncomplicated (without systemic symptoms) or Complicated (systemic symptoms)? @ -default Side effects of treatment? @ -No Exacerbation, Progression, or Severe Exacerbation? @ -No Poses a threat to life or bodily function? How? (Chest pain, [place], ND, pneumonia, PE, COPD, DKA, ARF, appy, cholecystitis, CVA, Diverticulitis, Homicidal, Suicidal, threat to staff... and all critical care pts) @ -No - Lab Data Result diagrams: 11/23/22 19:23 11/23/22 19: Lab Results 11/23/22 11/23/22 11/23/22 Range/Units 19:23 19: 19:23 WBC 9.5 (3.8-10.6) k/uL RBC 3.98 L (4.30-5.90) m/uL Hgb 11.7 L (13.0-17.5) gm/dL Hct 36.1 L (39.0-53.0) % MCV 90.8 (80.0-100.0) fL MCH 29.4 (25.0-35.0) pg MCHC 32.4 (31.0-37.0) g/dL RDW 17.0 H (11.5-15.5) % Plt Count 228 (150-450) k/uL MPV 7.3 Neutrophils % 77 % Lymphocytes % 12 % Monocytes % 6 % Eosinophils % 2 % Basophils % 1 % Neutrophils # 7.3 (1.3-7.7) k/uL Lymphocytes # 1.1 (1.0-4.8) k/uL Monocytes # 0.6 (0-1.0) k/uL Eosinophils # 0.2 (0-0.7) k/uL Basophils # 0.0 (0-0.2) k/uL Anisocytosis Slight PT 9.3 (9.0-12.0) sec INR 0.9 (<1.2) APTT 19.5 L (22.0-30.0) sec Sodium 134 L (137-145) mmol/L Potassium 4.4 (3.5-5.1) mmol/L Chloride 90 L (98-107) mmol/L Carbon Dioxide 38 H (22-30) mmol/L Anion Gap 6 mmol/L BUN 8 L (9-20) mg/dL Creatinine 0.47 L (0.66-1.25) mg/dL Est GFR (CKD-EPI)AfAm >90 (>60 ml/min/1.73 sqM) Est GFR (CKD-EPI)NonAf >90 (>60 ml/min/1.73 sqM) Glucose 114 H (74-99) mg/dL Plasma Lactic Acid Wes (0.7-2.0) mmol/L Calcium 8.4 (8.4-10.2) mg/dL Magnesium 1.9 (1.6-2.3) mg/dL Total Bilirubin 0.5 (0.2-1.3) mg/dL AST 24 (17-59) U/L ALT 27 (4-49) U/L Alkaline Phosphatase 52 (38-126) U/L Troponin I (0.000-0.034) ng/mL NT-Pro-B Natriuret Pep pg/mL Total Protein 5.9 L (6.3-8.2) g/dL Albumin 3.5 (3.5-5.0) g/dL 11/23/22 11/23/22 11/23/22 Range/Units 19:23 19:23 19:23 WBC (3.8-10.6) k/uL RBC (4.30-5.90) m/uL Hgb (13.0-17.5) gm/dL Hct (39.0-53.0) % MCV (80.0-100.0) fL MCH (25.0-35.0) pg MCHC (31.0-37.0) g/dL RDW (11.5-15.5) % Plt Count (150-450) k/uL MPV Neutrophils % % Lymphocytes % % Monocytes % % Eosinophils % % Basophils % % Neutrophils # (1.3-7.7) k/uL Lymphocytes # (1.0-4.8) k/uL Monocytes # (0-1.0) k/uL Eosinophils # (0-0.7) k/uL Basophils # (0-0.2) k/uL Anisocytosis PT (9.0-12.0) sec INR (<1.2) APTT (22.0-30.0) sec Sodium (137-145) mmol/L Potassium (3.5-5.1) mmol/L Chloride (98-107) mmol/L Carbon Dioxide (22-30) mmol/L Anion Gap mmol/L BUN (9-20) mg/dL Creatinine (0.66-1.25) mg/dL Est GFR (CKD-EPI)AfAm (>60 ml/min/1.73 sqM) Est GFR (CKD-EPI)NonAf (>60 ml/min/1.73 sqM) Glucose (74-99) mg/dL Plasma Lactic Acid Wes 1.2 (0.7-2.0) mmol/L Calcium (8.4-10.2) mg/dL Magnesium (1.6-2.3) mg/dL Total Bilirubin (0.2-1.3) mg/dL AST (17-59) U/L ALT (4-49) U/L Alkaline Phosphatase (38-126) U/L Troponin I <0.012 (0.000-0.034) ng/mL NT-Pro-B Natriuret Pep 652 pg/mL Total Protein (6.3-8.2) g/dL Albumin (3.5-5.0) g/dL Disposition Clinical Impression: Congestive heart failure, COPD exacerbation Disposition: ADMITTED IP TO THIS [facility] Is patient prescribed a controlled substance at d/c from ED?: No Referrals: Cosmo Quick MD [REFERRING] - 1-2 days Time of Disposition: 20:30
--- NOTE | 2022-11-23 17:35 | XR ---
EXAMINATION TYPE: XR chest 2V DATE OF EXAM: 11/23/2022 COMPARISON: 09/05/2022 HISTORY: Difficulty breathing TECHNIQUE: 2 views FINDINGS: There is some mild coarsening of interstitial markings. There are no hilar masses. No pleur al effusion. Bony thorax is intact. IMPRESSION: There is some mild pulmonary interstitial edema which is new compared to old exam and cou ld be chronic fibrosis or mild acute heart failure. No significant pleural fluid.
[2022-11-23 19:37] LABS: Anisocytosis Slight; Basophils % (A) 1 %; Eosinophils # (A) 0.2 k/uL (0-0.7); Eosinophils % (A) 2 %; HCT 36.1 % (39.0-53.0); HGB 11.7 gm/dL (13.0-17.5); Lymphocytes # (A) 1.1 k/uL (1.0-4.8); Lymphocytes % (A) 12 %; MCH 29.4 pg (25.0-35.0); MCHC 32.4 g/dL (31.0-37.0); MCV 90.8 fL (80.0-100.0); Mean Platelet Volume 7.3; Monocytes # (A) 0.6 k/uL (0-1.0); Monocytes % (A) 6 %; Neutrophils # (A) 7.3 k/uL (1.3-7.7); Neutrophils % (A) 77 %; Platelet Count 228 k/uL (150-450); RBC 3.98 m/uL (4.30-5.90); WBC 9.5 k/uL (3.8-10.6)
[2022-11-23 19:52] LABS: ALT 27 U/L (4-49); AST 24 U/L (17-59); African American GFR (CKD) >90 (>60 ml/min/1.73 sqM); Albumin 3.5 g/dL (3.5-5.0); Alkaline Phosphatase 52 U/L (38-126); Blood Urea Nitrogen 8 mg/dL (9-20); Calcium 8.4 mg/dL (8.4-10.2); Chloride 90 mmol/L (98-107); Glucose 114 mg/dL (74-99); Magnesium 1.9 mg/dL (1.6-2.3); Non-African American GFR(CKD) >90 (>60 ml/min/1.73 sqM); Potassium 4.4 mmol/L (3.5-5.1); Sodium 134 mmol/L (137-145); Total Bilirubin 0.5 mg/dL (0.2-1.3); Total Protein 5.9 g/dL (6.3-8.2)
[2022-11-23 19:53] LABS: INR 0.9 (<1.2); Prothrombin Time 9.3 sec (9.0-12.0)
[2022-11-23 19:55] LABS: Partial Thromboplastin Time 19.5 sec (22.0-30.0)
[2022-11-23 19:58] LABS: Anion Gap 6 mmol/L; Carbon Dioxide 38 mmol/L (22-30)
[2022-11-23] MEDS ORDERED: methylPREDNISolone SOD SUCCI 125 MG/2 ML VIAL IV STA (20:31)
[2022-11-23] MEDS ORDERED: IPRATROPIUM-ALBUTEROL 3 ML NEB INHALATION PRN (20:31)
[2022-11-23] MEDS ORDERED: ASPIRIN 325 MG TAB PO STA (20:31)
[2022-11-23] MEDS ORDERED: NALOXONE 0.4 MG/ML 1 ML VIAL IVP PRN (20:31)
[2022-11-23] MEDS: NITROGLYCERIN OINT 1 INCH/GM PACKET TOPICAL SCH (21:14)
[2022-11-23] MEDS: methylPREDNISolone SOD SUCCI 125 MG/2 ML VIAL IV SCH (23:48)
[2022-11-23] MEDS: FUROSEMIDE 10 MG/ML 4 ML VIAL IV SCH (23:48)
[2022-11-24] MEDS: methylPREDNISolone SOD SUCCI 125 MG/2 ML VIAL IV SCH ×4 (06:07→23:41)
[2022-11-24] MEDS: FUROSEMIDE 10 MG/ML 4 ML VIAL IV SCH (06:07)
[2022-11-24 06:08] LABS: Glucose,Whole Blood 183 mg/dL (70-110)
[2022-11-24] MEDS ORDERED: IPRATROPIUM-ALBUTEROL 3 ML NEB INHALATION SCH (08:00)
[2022-11-24] MEDS: NITROGLYCERIN OINT 1 INCH/GM PACKET TOPICAL SCH ×4 (08:32→21:34)
[2022-11-24] MEDS: TIOTROPIUM 2.5 MCG INHALER INHALATION SCH (08:57)
[2022-11-24] MEDS: ALBUTEROL HFA INHALER INHALATION SCH ×4 (08:57→20:09)
[2022-11-24] MEDS ORDERED: ASPIRIN 325 MG TAB PO SCH (09:00)
[2022-11-24] MEDS: ESCITALOPRAM 5 MG TAB PO SCH (10:26)
[2022-11-24] MEDS: POTASSIUM CHLORIDE ER 10 MEQ TAB.ER.PRT PO SCH (10:26)
[2022-11-24] MEDS: METOPROLOL TARTRATE 50 MG TAB PO SCH ×2 (10:26→21:41)
[2022-11-24] MEDS: TAMSULOSIN 0.4 MG CAP.ER.24H PO SCH (10:26)
[2022-11-24 10:35] VITALS: BMI 33.9
--- NOTE | 2022-11-24 11:32 | CONS ---
CONSULTATION HISTORY OF PRESENT ILLNESS: This is a gentleman, who is not very cooperative when I came in to see him. He does not communicate well. He states he is not in any distress. He has no chest pain and his shortness of breath has also improved. He has a history of oxygen-requiring COPD and has been under the care of Informatics Consultant. He uses oxygen at home on a regular basis. He also has a chronic atrial fibrillation. I was asked to see him for possible congestive heart failure. The patient is not clinically in heart failure. His troponin is normal. BNP is normal. Electrolytes are better. After receiving some breathing treatments, he actually feels better today. The patient also complains of some lower extremity edema that seems to be somewhat chronic. He came in seeking pain medications. PAST MEDICAL HISTORY: Remarkable for chronic atrial fibrillation, bronchial asthma, type 2 diabetes, hypertension, hyperlipidemia, and also oxygen-requiring COPD, current history of smoking 2 packs a day. He also has history of anxiety and depression. MEDICATIONS: Medications at home include, 1. 5 mg of prednisone. 2. Neurontin. 3. Long-acting Teddy-Dur preparation. 4. Flomax. 5. Metoprolol tartrate 50 mg b.i.d. 6. Lasix 40 mg b.i.d. 7. Apixaban 5 mg b.i.d. EKG revealed atrial fibrillation, controlled rate, baseline artifact, nonspecific ST-T changes. PHYSICAL EXAMINATION: VITAL SIGNS: Blood pressure is 150/80, pulse rate is about 78 per minute, irregular. HEENT: Unremarkable. Fundus was not examined by me. NECK: Supple. No significant JVD is evident. HEART: Reveals S1, S2 with irregular rhythm. Distant heart sounds. LUNGS: Revealed bilateral diminished air entry. ABDOMEN: Soft. EXTREMITIES: Lower extremities revealed bilateral edema. Diminished pulses. CENTRAL NERVOUS SYSTEM: Did not do a detailed exam. IMPRESSION: 1. Exacerbation of chronic obstructive pulmonary disease. 2. No evidence of clinical heart failure. 3. Chronic atrial fibrillation. 4. Chronic nicotine use. 5. Oxygen-dependent chronic obstructive pulmonary disease. RECOMMENDATIONS: I am recommending that we resume his home medications, and discontinue the aspirin, switch his Lasix from 40 mg IV q.12 hours to 40 mg p.o. b.i.d. Continue all medications including metoprolol. I have no new specific suggestions. I will see the patient as needed. MMODL / IJN: [id number] /
[2022-11-24 11:44] LABS: ABG Oxygen Saturation 97.8 % (94-97); ABG PCO2 63 mmHg (35-45); ABG PH 7.45 (7.35-7.45); ABG PO2 87 mmHg (83-108); ABG TCO2 45 mmol/L (19-24); Allen Test Performed? Yes
[2022-11-24 11:46] LABS: ABG HCO3 43 mmol/L (21-25)
[2022-11-24 11:47] LABS: Glucose,Whole Blood 156 mg/dL (70-110)
[2022-11-24] MEDS: HYDROcodone/APAP 7.5-325MG 1 EACH TAB PO PRN ×3 (13:12→23:41)
--- NOTE | 2022-11-24 14:17 | P.CNPUL ---
History of Present Illness Consult date: 11/24/22 Requesting physician: Charissa Mcnair Reason for consult: COPD Chief complaint: Shortness of breath, cough, wheezing History of present illness: This is a 72-year-old white male with history of multiple medical problems including severe COPD, chronic hypoxic respiratory failure, chronic atrial fibrillation, hypertension, degenerative joint disease, continues to smoke and the patient had multiple admissions to different hospitals including [facility] and [facility] with COPD exacerbations. Patient does not follow up in our office on a regular bases mostly because of transportation issues according to him. He was recently at [facility] with acute exacerbation of COPD. Patient was seen in the ER at [facility] yesterday, and his symptoms were mostly symptoms of shortness of breath cough and wheezing. Worsening over the last few days since he was discharged from [facility]. Chest x-ray showed COPD, mild interstitial lung disease, no evidence of infiltrate, no evidence of pneumonia. Patient was admitted and this consult was initiated. He had a relatively normal CBC. Normal basic metabolic profile. ABG showed a pO2 of 87 pCO2 of 63 pH of 7.45 and this was on 32% FiO2. Patient is not a great historian, and does not seem to be very cooperative as far as history taking. Review of Systems Could not obtain an adequate review of system as the patient is not cooperative. Past Medical History Past Medical History: Atrial Fibrillation, Asthma, COPD, Diabetes Mellitus, GERD/Reflux, Hyperlipidemia, Hypertension, Osteoarthritis (OA), Pneumonia Additional Past Medical History / Comment(s): Afib RVR, home oxygen prn, bronchitis, pt states he is on metformin to prevent becoming diabetic, neuropathy bilateral feet/L hand, chronic pain back,/bilateral hips/knees/elbows and shoulders, L heel pain, FALLS, cataracts. 11/23/22 ex-spouse phylicia Waterman reports history is accurate to her knowledge. current adominal hernia noted History of Any Multi-Drug Resistant Organisms: None Reported Past Surgical History: Appendectomy Additional Past Surgical History / Comment(s): Colonoscopy. 11/23/22 ex-spouse phylicia Waterman reports history is accurate to her knowledge. Past Anesthesia/Blood Transfusion Reactions: No Reported Reaction Past Psychological History: Unable to Obtain, Anxiety, Depression Additional Psychological History / Comment(s): 11/23/22 ex-spouse phylicia christine history is accurate to her knowledge. Smoking Status: Current every day smoker Past Alcohol Use History: None Reported Additional Past Alcohol Use History / Comment(s): Pt started smoking in 1969 and smokes 2 ppd or a little more. He states he has hx of ETOH abuse but has not drank in a few years. Past Drug Use History: None Reported Additional Drug Use History / Comment(s): Patient reports being a heavy marijuana smoker in the 1969" - Past Family History Father Family Medical History: Congestive Heart Failure (CHF), COPD Additional Family Medical History / Comment(s): Father was an alcoholic but was able to quit drinking Mother Family Medical History: Congestive Heart Failure (CHF), COPD Additional Family Medical History / Comment(s): Mother was an alcoholic. Daughter(s) Additional Family Medical History / Comment(s): Liver cancer Medications and Allergies Home Medications Medication Instructions Recorded Confirmed Type Albuterol Nebulized [Ventolin 2.5 mg INHALATION RT-Q6H PRN 05/08/20 11/23/22 History Nebulized] Apixaban [Eliquis] 5 mg PO BID #60 tab 07/08/20 11/23/22 Rx Atorvastatin [Lipitor] 20 mg PO HS 01/12/21 11/23/22 History amLODIPine [Norvasc] 10 mg PO DAILY 01/12/21 11/23/22 History Furosemide [Lasix] 40 mg PO BID 05/02/21 11/23/22 History Ipratropium-Albuterol Nebulize 3 ml INHALATION RT-Q6H PRN 05/02/21 11/23/22 History [Duoneb 0.5 mg-3 mg/3 ml Soln] Gabapentin [Neurontin] 100 mg PO TID 12/07/21 11/23/22 History Tamsulosin [Flomax] 0.4 mg PO DAILY 12/07/21 11/23/22 History Albuterol Sulfate [Proair Hfa] 2 puff INHALATION RT-Q6H PRN 02/18/22 11/23/22 History Fluticasone Nasal [place] [Flonase 1 spray EA NOSTRIL Q12H PRN 02/18/22 11/23/22 History Nasal [place]] HYDROcodone/APAP 7.5-325MG [[place] 1 tab PO Q4H PRN 02/18/22 11/23/22 History 7.5-325] Potassium Chloride [Klor-Con 10 ER] 10 meq PO DAILY 02/18/22 11/23/22 History Theophylline Anhydrous 400 mg PO DAILY 02/18/22 11/23/22 History [Theophylline] Escitalopram [Lexapro] 5 mg PO DAILY 08/29/22 11/23/22 History Omeprazole 40 mg PO DAILY 08/29/22 11/23/22 History Metoprolol Tartrate [Lopressor] 50 mg PO BID tab 09/07/22 11/23/22 Rx metFORMIN HCL [Glucophage] 500 mg PO BID tab 09/07/22 11/23/22 Rx hydrALAZINE HCL [Apresoline] 25 mg PO BID 11/23/22 11/23/22 History predniSONE 5 mg PO DAILY 11/23/22 11/23/22 History predniSONE [Deltasone] 20 mg PO DIRECTED 11/23/22 11/23/22 History Allergies Allergy/AdvReac Type Severity Reaction Status Date / Time ANJU Inhibitors Allergy Unknown - Verified 11/23/22 19:42 [facility] do[facility] Allergy Anaphylaxis Verified 11/23/22 19:42 Penicillins Allergy Anaphylaxis, Verified 11/23/22 19:42 Seizure Physical Exam Vitals: Vital Signs Temp Pulse Pulse Resp BP BP Pulse Ox 11/24/22 08:00 98.1 F 88 18 151/88 92 L 11/24/22 05:00 88 20 98 11/23/22 22:22 98.2 F 74 20 152/84 97 11/23/22 21:50 77 21 140/58 93 L 11/23/22 21:40 79 141/60 93 L 11/23/22 21:31 97.8 F 74 18 141/60 95 11/23/22 21:30 82 21 138/74 11/23/22 21:20 100 45 H 138/74 76 L 11/23/22 21:10 98 24 143/72 86 L 11/23/22 21:00 92 16 130/68 94 L 11/23/22 20:50 80 16 130/68 94 L 11/23/22 20:40 81 15 152/71 96 11/23/22 20:30 75 14 153/78 11/23/22 20:20 23 153/78 94 L 11/23/22 20:10 15 132/51 97 11/23/22 20:01 73 22 132/51 100 11/23/22 20:00 87 30 H 134/62 11/23/22 19:52 134/62 11/23/22 19:50 84 20 84/60 99 11/23/22 19:40 80 36 H 112/60 98 11/23/22 19:39 90 26 H 112/60 99 11/23/22 19:30 98 16 112/60 97 11/23/22 19:20 69 16 11/23/22 19:10 19 11/23/22 19:00 85 16 98 11/23/22 18:50 84 12 97 11/23/22 18:40 88 14 97 11/23/22 18:30 76 17 96 11/23/22 18:20 80 19 97 11/23/22 18:16 93 L 11/23/22 17:50 100 11/23/22 17:44 91 L 11/23/22 16:37 98.0 F 78 18 118/76 97 Intake and Output 11/23/22 11/24/22 11/24/22 22:59 06:59 14:59 Output Total 1400 1100 1050 Balance -1400 -1100 -1050 Output: Urine 1400 1100 1050 Other: Voiding Method Urinal Urinal Diaper Diaper # Voids 1 Weight 113.398 kg 113.398 kg GENERAL EXAM: Revealed 72-year-old white male in no distress, on 4 L nasal cannula. HEENT: PERRLA, EOMI, anicteric, no neck masses no JVD. Head: Atraumatic normocephalic. CHEST: No chest wall deformity. LUNGS: Equal air entry rhonchi and wheezes noted bilaterally. CVS: S1 and S2 normal with no audible murmur, regular rhythm. ABDOMEN: No hepatosplenomegaly, normal bowel sounds, no guarding or rigidity. SKIN: No rashes CENTRAL NERVOUS SYSTEM: Patient is sleepy, but arousable, follows simple instructions. EXTREMITIES: Changes of chronic venous stasis. Peripheral pulses are intact. Results - Laboratory Findings CBC and BMP: 11/23/22 19:23 11/23/22 19:23 ABG ABG pH 7.45 (7.35-7.45) 11/24/22 11:38 ABG pCO2 63 mmHg (35-45) H 11/24/22 11:38 ABG pO2 87 mmHg (83-108) 11/24/22 11:38 ABG O2 Saturation 97.8 % (94-97) H 11/24/22 11:38 PT/INR, D-dimer PT 9.3 sec (9.0-12.0) 11/23/22 19:23 INR 0.9 (<1.2) 11/23/22 19:23 Abnormal lab findings: Abnormal Labs 11/23/22 11/23/22 11/23/22 19:23 19:23 19:23 RBC 3.98 L Hgb 11.7 L Hct 36.1 L RDW 17.0 H APTT 19.5 L ABG pCO2 ABG HCO3 ABG Total CO2 ABG O2 Saturation Sodium 134 L Chloride 90 L Carbon Dioxide 38 H BUN 8 L Creatinine 0.47 L Glucose 114 H POC Glucose (mg/dL) Total Protein 5.9 L 11/24/22 11/24/22 11/24/22 06:06 11:38 11:46 RBC Hgb Hct RDW APTT ABG pCO2 63 H ABG HCO3 43 H* ABG Total CO2 45 H ABG O2 Saturation 97.8 H Sodium Chloride Carbon Dioxide BUN Creatinine Glucose POC Glucose (mg/dL) 183 H 156 H Total Protein - Diagnostic Findings Chest x-ray: image reviewed (As noted in HPI.) Assessment and Plan Assessment: Impression: Acute exacerbation of COPD Chronic hypoxic respiratory failure Acute tracheobronchitis no clear-cut evidence of pneumonia Suspect mild interstitial lung disease History of diastolic congestive heart failure Tobacco dependence syndrome Benign essential hypertension Chronic atrial fibrillation Diabetes with diabetic neuropathy History of noncompliance Chronic pain syndrome Recommendation: Continue present meds Continue antibiotics/empiric Continue steroids continue oxygen and titrate accordingly Continue eliquis NicoDerm patches Continue DuoNeb, and other bronchodilators as well as IV Solu-Medrol. We will continue to follow Time with Patient: Greater than 30
[2022-11-24 16:49] LABS: Glucose,Whole Blood 153 mg/dL (70-110)
[2022-11-24] MEDS: GABAPENTIN 100 MG CAP PO SCH ×2 (18:13→21:41)
[2022-11-24] MEDS: metFORMIN 500 MG TAB PO SCH (18:14)
[2022-11-24] MEDS: THEOPHYLLINE 24 HOUR 400 MG CAP.ER.24H PO SCH (18:14)
[2022-11-24] MEDS: FUROSEMIDE 40 MG TAB PO SCH (18:14)
[2022-11-24 19:57] LABS: Glucose,Whole Blood 506 mg/dL (70-110)
[2022-11-24 19:59] LABS: Glucose,Whole Blood 361 mg/dL (70-110)
[2022-11-24 20:01] LABS: Glucose,Whole Blood 358 mg/dL (70-110)
[2022-11-24] MEDS: SYMBICORT 160-4.5 MCG INHALER INHALATION SCH (20:09)
[2022-11-24] MEDS ORDERED: FUROSEMIDE 10 MG/ML 4 ML VIAL IV SCH (21:00)
[2022-11-24] MEDS: INSULIN ASPART (NovoLOG) 100 UNIT/ML VIAL SQ SCH (21:40)
[2022-11-24] MEDS: ATORVASTATIN 20 MG TAB PO SCH (21:41)
[2022-11-24] MEDS: APIXABAN 5 MG TAB PO SCH (21:41)
--- NOTE | 2022-11-24 22:43 | P.HPIM ---
History of Present Illness H&P Date: 11/24/22 Chief Complaint: Shortness of breath Patient is a 72-year-old male with a known history of hypertension, hyperlipidemia, GERD, diabetes type 2 [id number], COPD on home oxygen at 3 L via nasal cannula, atrial fibrillation on anticoagulation with Eliquis, osteoarthritis, anxiety/depression currently everyday smoker presents to ER with complaints of shortness of breath and worsening leg swelling. Patient had trouble breathing and exertional dyspnea. Was also complaining of worsening leg swelling. Patient states that he was having shortness of breath with laying flat and has been sitting in the recliner most of the time. No complaints of chest pain. No fever no chills. Cough without much sputum production. Chest x-ray showed there is some mild pulmonary interstitial edema which is new compared to old exam and could be chronic fibrosis mild acute heart failure. No significant pleural fluid. EKG showed atrial fibrillation with controlled heart rate Laboratory data showed WBC 9.2 hemoglobin 11.7 and platelets 228 ABG showed pH of 7.45 PCO2 63 PO2 87 and bicarb 43 Sodium 134 potassium 4.1 chloride 90 bicarb is 38 BUN 8 and creatinine 47 Loramyc are not elevated and proBNP is 652 and troponin x1 negative and procalcitonin level is 0.08 Review of Systems Constitutional: Patient denies any fever or chills . no Generalized weakness. Abdomen: Patient denied any nausea or vomiting or abd. pain Cardiovascular: Patient denies any chest pain. Does have short of breath no palpitations. Worsening leg swelling Respiratory: Cough without sputum production and shortness of breath.. Neurologic: Patient denied any numbness or tingling headache. Musculoskeletal: Patient denies any complaints of joint swelling or deformity. Skin: Negative Psychiatric: Negative Endocrine: No heat or cold intolerance. No recent weight gain. Genitourinary: No dysuria or hematuria. All other 14 point ROS negative except the above Past Medical History Past Medical History: Atrial Fibrillation, Asthma, COPD, Diabetes Mellitus, GERD/Reflux, Hyperlipidemia, Hypertension, Osteoarthritis (OA), Pneumonia Additional Past Medical History / Comment(s): Afib RVR, home oxygen prn, bronchitis, pt states he is on metformin to prevent becoming diabetic, neuropathy bilateral feet/L hand, chronic pain back,/bilateral hips/knees/elbows and shoulders, L heel pain, FALLS, cataracts. 11/23/22 ex-spouse phylicia Waterman reports history is accurate to her knowledge. current adominal hernia noted History of Any Multi-Drug Resistant Organisms: None Reported Past Surgical History: Appendectomy Additional Past Surgical History / Comment(s): Colonoscopy. 11/23/22 ex-spouse phylicia Waterman reports history is accurate to her knowledge. Past Anesthesia/Blood Transfusion Reactions: No Reported Reaction Past Psychological History: Unable to Obtain, Anxiety, Depression Additional Psychological History / Comment(s): 11/23/22 ex-spouse phylicia Waterman repor ts history is accurate to her knowledge. Smoking Status: Current every day smoker Past Alcohol Use History: None Reported Additional Past Alcohol Use History / Comment(s): Pt started smoking in 1969 and smokes 2 ppd or a little more. He states he has hx of ETOH abuse but has not drank in a few years. Past Drug Use History: None Reported Additional Drug Use History / Comment(s): Patient reports being a heavy marijuana smoker in the 1969" - Past Family History Father Family Medical History: Congestive Heart Failure (CHF), COPD Additional Family Medical History / Comment(s): Father was an alcoholic but was able to quit drinking Mother Family Medical History: Congestive Heart Failure (CHF), COPD Additional Family Medical History / Comment(s): Mother was an alcoholic. Daughter(s) Additional Family Medical History / Comment(s): Liver cancer Medications and Allergies Home Medications Medication Instructions Recorded Confirmed Type Albuterol Nebulized [Ventolin 2.5 mg INHALATION RT-Q6H PRN 05/08/20 11/23/22 History Nebulized] Apixaban [Eliquis] 5 mg PO BID #60 tab 07/08/20 11/23/22 Rx Atorvastatin [Lipitor] 20 mg PO HS 01/12/21 11/23/22 History amLODIPine [Norvasc] 10 mg PO DAILY 01/12/21 11/23/22 History Furosemide [Lasix] 40 mg PO BID 05/02/21 11/23/22 History Ipratropium-Albuterol Nebulize 3 ml INHALATION RT-Q6H PRN 05/02/21 11/23/22 History [Duoneb 0.5 mg-3 mg/3 ml Soln] Gabapentin [Neurontin] 100 mg PO TID 12/07/21 11/23/22 History Tamsulosin [Flomax] 0.4 mg PO DAILY 12/07/21 11/23/22 History Albuterol Sulfate [Proair Hfa] 2 puff INHALATION RT-Q6H PRN 02/18/22 11/23/22 History Fluticasone Nasal [place] [Flonase 1 spray EA NOSTRIL Q12H PRN 02/18/22 11/23/22 History Nasal [place]] HYDROcodone/APAP 7.5-325MG [[place] 1 tab PO Q4H PRN 02/18/22 11/23/22 History 7.5-325] Potassium Chloride [Klor-Con 10 ER] 10 meq PO DAILY 02/18/22 11/23/22 History Theophylline Anhydrous 400 mg PO DAILY 02/18/22 11/23/22 History [Theophylline] Escitalopram [Lexapro] 5 mg PO DAILY 08/29/22 11/23/22 History Omeprazole 40 mg PO DAILY 08/29/22 11/23/22 History Metoprolol Tartrate [Lopressor] 50 mg PO BID tab 09/07/22 11/23/22 Rx metFORMIN HCL [Glucophage] 500 mg PO BID tab 09/07/22 11/23/22 Rx hydrALAZINE HCL [Apresoline] 25 mg PO BID 11/23/22 11/23/22 History predniSONE 5 mg PO DAILY 11/23/22 11/23/22 History predniSONE [Deltasone] 20 mg PO DIRECTED 11/23/22 11/23/22 History Allergies Allergy/AdvReac Type Severity Reaction Status Date / Time ANJU Inhibitors Allergy Unknown - Verified 11/23/22 19:42 per [facility] doxycycline Allergy Anaphylaxis Verified 11/23/22 19:42 Penicillins Allergy Anaphylaxis, Verified 11/23/22 19:42 Seizure Physical Exam Vitals: Vital Signs Temp Pulse Pulse Resp BP BP Pulse Ox 11/24/22 05:00 88 20 98 11/23/22 22:22 98.2 F 74 20 152/84 97 11/23/22 21:50 77 21 140/58 93 L 11/23/22 21:40 79 141/60 93 L 11/23/22 21:31 97.8 F 74 18 141/60 95 11/23/22 21:30 82 21 138/74 11/23/22 21:20 100 45 H 138/74 76 L 11/23/22 21:10 98 24 143/72 86 L 11/23/22 21:00 92 16 130/68 94 L 11/23/22 20:50 80 16 130/68 94 L 11/23/22 20:40 81 15 152/71 96 11/23/22 20:30 75 14 153/78 11/23/22 20:20 23 153/78 94 L 11/23/22 20:10 15 132/51 97 11/23/22 20:01 73 22 132/51 100 11/23/22 20:00 87 30 H 134/62 11/23/22 19:52 134/62 11/23/22 19:50 84 20 84/60 99 11/23/22 19:40 80 36 H 112/60 98 11/23/22 19:39 90 26 H 112/60 99 11/23/22 19:30 98 16 112/60 97 11/23/22 19:20 69 16 11/23/22 19:10 19 11/23/22 19:00 85 16 98 11/23/22 18:50 84 12 97 11/23/22 18:40 88 14 97 11/23/22 18:30 76 17 96 11/23/22 18:20 80 19 97 11/23/22 18:16 93 L 11/23/22 17:50 100 11/23/22 17:44 91 L 11/23/22 16:37 98.0 F 78 18 118/76 97 Intake and Output 11/23/22 11/24/22 11/24/22 22:59 06:59 14:59 Output Total 1400 1100 800 Balance -1400 -1100 -800 Output: Urine 1400 1100 800 Other: Voiding Method Urinal Diaper # Voids 1 Weight 113.398 kg PHYSICAL EXAMINATION: Patient is lying in the bed comfortably, no acute distress, awake alert and oriented.. HEENT: Normocephalic. Neck is supple. Pupils reactive. Nostrils clear. Oral cavity is moist. Neck reveals no JVD, carotid bruits, or thyromegaly. CHEST EXAMINATION: Trachea is central. Symmetrical expansion. Bilateral diffuse wheezing and rhonchi. Nonlabored breathing.. CARDIAC: Normal S1, S2 with no gallops. No murmurs ABDOMEN: Soft. Bowel sounds present. Nontender. No organomegaly. No abdominal bruits. Extremities: Bilateral lower extremity 3+ edema. No clubbing or cyanosis Neurologically awake, alert, oriented x3 with well-coordinated movements. No focal deficits noted Skin: No rash or skin lesions. Psychiatric: Coperative. Nonsuicidal, rude sometimes with the staff. Musculoskeletal: No joint swelling or deformity. Normal range of motion. Results CBC & Chem 7: 11/23/22 19:23 11/23/22 19:23 Labs: Abnormal Lab Results - Last 24 Hours (Table) 11/23/22 11/23/22 11/23/22 Range/Units 19:23 19:23 19: RBC 3.98 L (4.30-5.90) m/uL Hgb 11.7 L (13.0-17.5) gm/dL Hct 36.1 L (39.0-53.0) % RDW 17.0 H (11.5-15.5) % APTT 19.5 L (22.0-30.0) sec Sodium 134 L (137-145) mmol/L Chloride 90 L (98-107) mmol/L Carbon Dioxide 38 H (22-30) mmol/L BUN 8 L (9-20) mg/dL Creatinine 0.47 L (0.66-1.25) mg/dL Glucose 114 H (74-99) mg/dL POC Glucose (mg/dL) (70-110) mg/dL Total Protein 5.9 L (6.3-8.2) g/dL 11/24/22 Range/Units 06:06 RBC (4.30-5.90) m/uL Hgb (13.0-17.5) gm/dL Hct (39.0-53.0) % RDW (11.5-15.5) % APTT (22.0-30.0) sec Sodium (137-145) mmol/L Chloride (98-107) mmol/L Carbon Dioxide (22-30) mmol/L BUN (9-20) mg/dL Creatinine (0.66-1.25) mg/dL Glucose (74-99) mg/dL POC Glucose (mg/dL) 183 H (70-110) mg/dL Total Protein (6.3-8.2) g/dL Thrombosis Risk Factor Assmnt - DVT/VTE Prophylaxis DVT/VTE Prophylaxis: Pharmacologic Prophylaxis ordered - Choose All That Apply Any of the Below Risk Factors Present?: Yes Each Factor Represents 1 point: Abnormal pulmonary function (COPD), Heart failure (<1month), Obesity (BMI >25), Swollen legs (current) Other Risk Factors: Yes Each Risk Factor Represents 2 Points: Age 61-74 years Other congenital or acquired thrombophilia - If yes, enter type in comment: No Thrombosis Risk Factor Assessment Total Risk Factor Score: 6 Thrombosis Risk Factor Assessment Level: High Risk Assessment and Plan Assessment: Worsening shortness of breath secondary to acute COPD exacerbation Acute on chronic hypoxic and hypercapnic respiratory failure on home oxygen at 3 L via nasal cannula Bilateral lower extremity significant edema. Unlikely CHF exacerbation. Chronic CHF with diastolic dysfunction Acute tracheobronchitis. No evidence of pneumonia. Chronic atrial fibrillation on anticoagulation with Eliquis Diabetes type 2 Diabetic peripheral neuropathy Chronic pain syndrome Ongoing lipid addiction Noncompliance with medications and follow-up. Plan: Patient will be continued on IV Solu-Medrol 60 mg every 6 hourly and continue with Symbicort, albuterol and Spiriva. Continue with oxygen supplementation. Was given a dose of IV Lasix in the ER. Continue with Lasix 40 mg twice daily. Leg elevation Current home medications and blood sugar control with insulin sliding scale. Follow-up closely. Cardiology and pulmonary is on board. Prognosis guarded with multiple medical problems and comorbid conditions. Time with Patient: Greater than 30
[2022-11-24] MEDS: ALBUTEROL HFA INHALER INHALATION PRN (23:40)
[2022-11-25 06:04] LABS: Glucose,Whole Blood 189 mg/dL (70-110)
[2022-11-25] MEDS: INSULIN ASPART (NovoLOG) 100 UNIT/ML VIAL SQ SCH ×4 (06:30→21:05)
[2022-11-25] MEDS: methylPREDNISolone SOD SUCCI 125 MG/2 ML VIAL IV SCH ×4 (06:35→23:28)
[2022-11-25] MEDS: metFORMIN 500 MG TAB PO SCH ×2 (06:37→17:20)
[2022-11-25] MEDS: HYDROcodone/APAP 7.5-325MG 1 EACH TAB PO PRN ×4 (06:37→21:05)
[2022-11-25] MEDS: TIOTROPIUM 2.5 MCG INHALER INHALATION SCH (07:53)
[2022-11-25] MEDS: ALBUTEROL HFA INHALER INHALATION SCH ×4 (07:53→18:07)
[2022-11-25] MEDS: SYMBICORT 160-4.5 MCG INHALER INHALATION SCH ×2 (07:54→18:07)
[2022-11-25 08:03] LABS: Anisocytosis Slight; Basophils % (A) 0 %; Eosinophils % (A) 0 %; HCT 36.6 % (39.0-53.0); HGB 11.7 gm/dL (13.0-17.5); Lymphocytes # (A) 0.5 k/uL (1.0-4.8); Lymphocytes % (A) 6 %; MCH 29.2 pg (25.0-35.0); MCHC 32.1 g/dL (31.0-37.0); Mean Platelet Volume 7.2; Monocytes # (A) 0.3 k/uL (0-1.0); Monocytes % (A) 3 %; Neutrophils # (A) 8.3 k/uL (1.3-7.7); Neutrophils % (A) 90 %; Platelet Count 229 k/uL (150-450); RBC 4.02 m/uL (4.30-5.90); RDW 16.7 % (11.5-15.5); WBC 9.2 k/uL (3.8-10.6)
[2022-11-25] MEDS: NITROGLYCERIN OINT 1 INCH/GM PACKET TOPICAL SCH ×4 (08:04→21:06)
[2022-11-25 08:31] LABS: African American GFR (CKD) >90 (>60 ml/min/1.73 sqM); Blood Urea Nitrogen 15 mg/dL (9-20); Calcium 8.2 mg/dL (8.4-10.2); Chloride 89 mmol/L (98-107); Glucose 170 mg/dL (74-99); Non-African American GFR(CKD) >90 (>60 ml/min/1.73 sqM); Potassium 4.3 mmol/L (3.5-5.1); Sodium 132 mmol/L (137-145)
[2022-11-25 08:40] LABS: Anion Gap 4 mmol/L; Carbon Dioxide 39 mmol/L (22-30)
[2022-11-25] MEDS: ESCITALOPRAM 5 MG TAB PO SCH (09:56)
[2022-11-25] MEDS: GABAPENTIN 100 MG CAP PO SCH ×3 (09:56→21:10)
[2022-11-25] MEDS: amLODIPine 10 MG TAB PO SCH (09:56)
[2022-11-25] MEDS: APIXABAN 5 MG TAB PO SCH ×2 (09:56→21:03)
[2022-11-25] MEDS: FUROSEMIDE 40 MG TAB PO SCH ×2 (09:57→17:20)
[2022-11-25] MEDS: TAMSULOSIN 0.4 MG CAP.ER.24H PO SCH (09:57)
[2022-11-25] MEDS: METOPROLOL TARTRATE 50 MG TAB PO SCH ×2 (09:57→21:10)
[2022-11-25] MEDS: POTASSIUM CHLORIDE ER 10 MEQ TAB.ER.PRT PO SCH (09:57)
[2022-11-25] MEDS: THEOPHYLLINE 24 HOUR 400 MG CAP.ER.24H PO SCH (09:57)
[2022-11-25 11:36] LABS: Glucose,Whole Blood 165 mg/dL (70-110)
--- NOTE | 2022-11-25 13:33 | P.PN ---
Subjective Progress Note Date: 11/25/22 This is a 72-year-old white male with history of multiple medical problems including severe COPD, chronic hypoxic respiratory failure, chronic atrial fibrillation, hypertension, degenerative joint disease, continues to smoke and the patient had multiple admissions to different hospitals including [facility] and [facility] with COPD exacerbations. Patient does not follow up in our office on a regular bases mostly because of transportation issues according to him. He was recently at [facility] with acute exacerbation of COPD. Patient was seen in the ER at [facility] yesterday, and his symptoms were mostly symptoms of shortness of breath cough and wheezing. Worsening over the last few days since he was discharged from [facility]. Chest x-ray showed COPD, mild interstitial lung disease, no evidence of infiltrate, no evidence of pneumonia. Patient was admitted and this consult was initiated. He had a relatively normal CBC. Normal basic metabolic profile. ABG showed a pO2 of 87 pCO2 of 63 pH of 7.45 and this was on 32% FiO2. Patient is not a great historian, and does not seem to be very cooperative as far as history taking. The patient is seen today 11/25/2022 in follow-up on the selective care unit. He is awake and alert and cooperative this morning. He sitting up in a chair at the bedside. Denies any worsening shortness of breath, cough or congestion. 18 O2 saturations in the high 90s on 4 L/m per nasal cannula. Afebrile. Hemodynamically stable. White count 9.2. Hemoglobin 11.7. Sodium 132. Potassium 4.3. Bicarb 39. BUN 15. Creatinine 0.54. Glucose 170. Pro- calcitonin 0.08. He remains on Symbicort, albuterol and Spiriva, IV Solu- Medrol, theophylline. Continued on oral diuretics. Anticoagulated with Eliquis. Objective - Vital Signs Vital signs: Vital Signs Temp 98.4 F 11/25/22 08:00 Pulse 81 11/25/22 11:57 Resp 18 11/25/22 11:57 BP 124/74 11/25/22 11:57 Pulse Ox 98 11/25/22 11:57 FiO2 Intake & Output 11/24/22 11/25/22 11/25/22 18:59 06:59 18:59 Intake Total 240 Output Total 1051 950 600 Balance -1051 -950 -360 Weight 113.398 kg Intake: Oral 240 Output: Urine 1057 433 600 Other: Voiding Method Urinal Urinal Urinal Diaper Diaper Diaper - Exam GENERAL EXAM: Alert, 72-year-old male, up in a chair, on 4 L nasal cannula, comfortable in no apparent distress. HEAD: Normocephalic. EYES: Normal reaction of pupils, equal size. NOSE: Clear with pink turbinates. THROAT: No erythema or exudates. NECK: No masses, no JVD. CHEST: No chest wall deformity. LUNGS: Equal air entry with bilateral end expiratory wheeze, diminished. CVS: S1 and S2 normal with no audible murmur, regular rhythm. ABDOMEN: No hepatosplenomegaly, normal bowel sounds, no guarding or rigidity. SPINE: No scoliosis or deformity SKIN: No rashes CENTRAL NERVOUS SYSTEM: No focal deficits, tone is normal in all 4 extremities. EXTREMITIES: Changes of chronic venous stasis in the lower extremities. There is 1+ peripheral edema. Peripheral pulses are intact. - Labs CBC & Chem 7: 11/25/22 07:45 11/25/22 07:45 Labs: Abnormal Lab Results - Last 24 Hours (Table) 11/24/22 11/24/22 11/24/22 Range/Units 16:46 19:55 19:57 RBC (4.30-5.90) m/uL Hgb (13.0-17.5) gm/dL Hct (39.0-53.0) % RDW (11.5-15.5) % Neutrophils # (1.3-7.7) k/uL Lymphocytes # (1.0-4.8) k/uL Sodium (137-145) mmol/L Chloride (98-107) mmol/L Carbon Dioxide (22-30) mmol/L Creatinine (0.66-1.25) mg/dL Glucose (74-99) mg/dL POC Glucose (mg/dL) 153 H 506 H 361 H (70-110) mg/dL Calcium (8.4-10.2) mg/dL 11/24/22 11/25/22 11/25/22 Range/Units 19:59 06:02 07:45 RBC 4.02 L (4.30-5.90) m/uL Hgb 11.7 L (13.0-17.5) gm/dL Hct 36.6 L (39.0-53.0) % RDW 16.7 H (11.5-15.5) % Neutrophils # 8.3 H (1.3-7.7) k/uL Lymphocytes # 0.5 L (1.0-4.8) k/uL Sodium (137-145) mmol/L Chloride (98-107) mmol/L Carbon Dioxide (22-30) mmol/L Creatinine (0.66-1.25) mg/dL Glucose (74-99) mg/dL POC Glucose (mg/dL) 358 H 189 H (70-110) mg/dL Calcium (8.4-10.2) mg/dL 11/25/22 11/25/22 Range/Units 07:45 11:34 RBC (4.30-5.90) m/uL Hgb (13.0-17.5) gm/dL Hct (39.0-53.0) % RDW (11.5-15.5) % Neutrophils # (1.3-7.7) k/uL Lymphocytes # (1.0-4.8) k/uL Sodium 132 L (137-145) mmol/L Chloride 89 L (98-107) mmol/L Carbon Dioxide 39 H (22-30) mmol/L Creatinine 0.54 L (0.66-1.25) mg/dL Glucose 170 H (74-99) mg/dL POC Glucose (mg/dL) 165 H (70-110) mg/dL Calcium 8.2 L (8.4-10.2) mg/dL Assessment and Plan Assessment: Acute on chronic hypoxemic respiratory failure secondary to an acute exacerbation of chronic obstructive pulmonary disease Chronic diastolic congestive heart failure Mild interstitial lung disease Chronic tobacco dependence Hypertension Chronic atrial fibrillation, anticoagulated with Eliquis Diabetes mellitus Diabetic neuropathy Chronic pain syndrome History of noncompliance History of multiple hospitalizations at several local hospitals Plan: The patient was seen and evaluated Medications and labs reviewed Procalcitonin within normal limits No need for antibiotics Continue the current treatment plan Titrate down the FiO2 as tolerated Probable discharge in the next 24 hours We will continue to follow I have personally seen and examined the patient, performed the documentation and the assessment and plan as written. Number of minutes spent on the visit: 10.
[2022-11-25 16:34] LABS: Glucose,Whole Blood 244 mg/dL (70-110)
[2022-11-25] MEDS ORDERED: ACETAMINOPHEN TAB 325 MG TAB PO PRN (19:30)
[2022-11-25 19:47] LABS: Glucose,Whole Blood 265 mg/dL (70-110)
[2022-11-25] MEDS: ATORVASTATIN 20 MG TAB PO SCH (21:03)
[2022-11-26] MEDS: PANTOPRAZOLE 40 MG TABLET PO SCH (01:20)
[2022-11-26] MEDS: HYDROcodone/APAP 7.5-325MG 1 EACH TAB PO PRN ×5 (01:21→21:28)
[2022-11-26] MEDS: methylPREDNISolone SOD SUCCI 125 MG/2 ML VIAL IV SCH ×4 (05:23→23:43)
[2022-11-26] MEDS: ALBUTEROL HFA INHALER INHALATION PRN (05:39)
[2022-11-26 05:54] LABS: Glucose,Whole Blood 189 mg/dL (70-110)
[2022-11-26] MEDS: metFORMIN 500 MG TAB PO SCH ×2 (06:01→17:45)
[2022-11-26] MEDS: INSULIN ASPART (NovoLOG) 100 UNIT/ML VIAL SQ SCH ×4 (06:01→20:46)
[2022-11-26 07:54] LABS: Anisocytosis Slight; Basophils % (A) 0 %; Eosinophils % (A) 0 %; HCT 34.5 % (39.0-53.0); HGB 11.3 gm/dL (13.0-17.5); Lymphocytes # (A) 0.4 k/uL (1.0-4.8); Lymphocytes % (A) 5 %; MCH 29.5 pg (25.0-35.0); MCHC 32.8 g/dL (31.0-37.0); MCV 90.1 fL (80.0-100.0); Mean Platelet Volume 7.1; Monocytes # (A) 0.3 k/uL (0-1.0); Monocytes % (A) 3 %; Neutrophils # (A) 7.5 k/uL (1.3-7.7); Neutrophils % (A) 92 %; Platelet Count 212 k/uL (150-450); RBC 3.83 m/uL (4.30-5.90); RDW 16.4 % (11.5-15.5); WBC 8.2 k/uL (3.8-10.6)
[2022-11-26 08:16] LABS: African American GFR (CKD) >90 (>60 ml/min/1.73 sqM); Blood Urea Nitrogen 21 mg/dL (9-20); Calcium 8.1 mg/dL (8.4-10.2); Chloride 88 mmol/L (98-107); Glucose 171 mg/dL (74-99); Non-African American GFR(CKD) >90 (>60 ml/min/1.73 sqM); Potassium 4.3 mmol/L (3.5-5.1); Sodium 130 mmol/L (137-145)
[2022-11-26] MEDS: NITROGLYCERIN OINT 1 INCH/GM PACKET TOPICAL SCH ×4 (08:26→19:51)
[2022-11-26 08:37] LABS: Anion Gap 6 mmol/L; Carbon Dioxide 36 mmol/L (22-30)
[2022-11-26] MEDS: TIOTROPIUM 2.5 MCG INHALER INHALATION SCH (09:12)
[2022-11-26] MEDS: SYMBICORT 160-4.5 MCG INHALER INHALATION SCH ×2 (09:12→19:44)
[2022-11-26] MEDS: ALBUTEROL HFA INHALER INHALATION SCH ×4 (09:12→19:44)
[2022-11-26] MEDS: METOPROLOL TARTRATE 50 MG TAB PO SCH ×2 (10:08→19:51)
[2022-11-26] MEDS: THEOPHYLLINE 24 HOUR 400 MG CAP.ER.24H PO SCH (10:08)
[2022-11-26] MEDS: GABAPENTIN 100 MG CAP PO SCH ×3 (10:08→19:51)
[2022-11-26] MEDS: ESCITALOPRAM 5 MG TAB PO SCH (10:08)
--- NOTE | 2022-11-26 10:08 | P.CONS ---
History of Present Illness - Reason for Consult Consult date: 11/26/22 wound care - History of Present Illness This is a 72-year-old gentleman being seen by the wound care center on [address] for blistering and open ulceration to the left medial malleolus. Patient states that he is had edema to the lower extremities for a while now. The blistering just started recently. Patient has an ulceration that measures approximately 3.5 x 3.5 x 0.1 cm with granulation seen throughout his Limited to skin breakdown with listed areas and ecchymosis noted to the left dorsal foot. Patient's past medical history is significant for atrial fibrillation with RVR, diabetes mellitus, GERD, hyperlipidemia, hypertension, asthma, COPD, chronic back pain he is a current every day smoker. Review Of Systems: Constitutional: No fever, no chills, no night sweats. No weight change. No weakness, fatigue or lethargy. No daytime sleepiness. Integumentary:reports wounds, no lesions. No rash or pruritus. No unusual bruising. No change in hair or nails. Physical exam: General Appearance: Alert, cooperative, no distress, appears stated age. Skin: See HPI all other Skin color, texture, tugor normal, no rashes or lesions. Neurologic: Alert oriented x3 Assessment: 1. Nonhealing ulceration Limited to skin breakdown left ankle 2. Chronic venous hypertension with ulceration and inflammation left lower extremity 2. Diabetes with skin ulceration Plan: 1. Apply triad to the open ulceration wrapped with cleaning and wrap with Miguel wrap change daily. Thank you for the consultation any questions please contact the wound care center DNP note has been reviewed and discussed with Dr. Tomas and the impression and plan of care has been directed as dictated. Past Medical History Past Medical History: Atrial Fibrillation, Asthma, COPD, Diabetes Mellitus, G ERD/Reflux, Hyperlipidemia, Hypertension, Osteoarthritis (OA), Pneumonia Additional Past Medical History / Comment(s): Afib RVR, home oxygen prn, bronchitis, pt states he is on metformin to prevent becoming diabetic, neuropathy bilateral feet/L hand, chronic pain back,/bilateral hips/knees/elbows and shoulders, L heel pain, FALLS, cataracts. 11/23/22 ex-spouse phylicia wise history is accurate to her knowledge. current adominal hernia noted History of Any Multi-Drug Resistant Organisms: None Reported Past Surgical History: Appendectomy Additional Past Surgical History / Comment(s): Colonoscopy. 11/23/22 ex-spouse phylicia Waterman reports history is accurate to her knowledge. Past Anesthesia/Blood Transfusion Reactions: No Reported Reaction Past Psychological History: Unable to Obtain, Anxiety, Depression Additional Psychological History / Comment(s): 11/23/22 ex-spouse phylicia Waterman reports history is accurate to her knowledge. Smoking Status: Current every day smoker Past Alcohol Use History: None Reported Additional Past Alcohol Use History / Comment(s): Pt started smoking in 1969 and smokes 2 ppd or a little more. He states he has hx of ETOH abuse but has not drank in a few years. Past Drug Use History: None Reported Additional Drug Use History / Comment(s): Patient reports being a heavy marijuana smoker in the 1969" - Past Family History Father Family Medical History: Congestive Heart Failure (CHF), COPD Additional Family Medical History / Comment(s): Father was an alcoholic but was able to quit drinking Mother Family Medical History: Congestive Heart Failure (CHF), COPD Additional Family Medical History / Comment(s): Mother was an alcoholic. Daughter(s) Additional Family Medical History / Comment(s): Liver cancer Medications and Allergies Home Medications Medication Instructions Recorded Confirmed Type Albuterol Nebulized [Ventolin 2.5 mg INHALATION RT-Q6H PRN 05/08/20 11/23/22 History Nebulized] Apixaban [Eliquis] 5 mg PO BID #60 tab 07/08/20 11/23/22 Rx Atorvastatin [Lipitor] 20 mg PO HS 01/12/21 11/23/22 History amLODIPine [Norvasc] 10 mg PO DAILY 01/12/21 11/23/22 History Furosemide [Lasix] 40 mg PO BID 05/02/21 11/23/22 History Ipratropium-Albuterol Nebulize 3 ml INHALATION RT-Q6H PRN 05/02/21 11/23/22 History [Duoneb 0.5 mg-3 mg/3 ml Soln] Gabapentin [Neurontin] 100 mg PO TID 12/07/21 11/23/22 History Tamsulosin [Flomax] 0.4 mg PO DAILY 12/07/21 11/23/22 History Albuterol Sulfate [Proair Hfa] 2 puff INHALATION RT-Q6H PRN 02/18/22 11/23/22 History Fluticasone Nasal [place] [Flonase 1 spray EA NOSTRIL Q12H PRN 02/18/22 11/23/22 History Nasal [place]] HYDROcodone/APAP 7.5-325MG [[place] 1 tab PO Q4H PRN 02/18/22 11/23/22 History 7.5-325] Potassium Chloride [Klor-Con 10 ER] 10 meq PO DAILY 02/18/22 11/23/22 History Theophylline Anhydrous 400 mg PO DAILY 02/18/22 11/23/22 History [Theophylline] Escitalopram [Lexapro] 5 mg PO DAILY 08/29/22 11/23/22 History Omeprazole 40 mg PO DAILY 08/29/22 11/23/22 History Metoprolol Tartrate [Lopressor] 50 mg PO BID tab 09/07/22 11/23/22 Rx metFORMIN HCL [Glucophage] 500 mg PO BID tab 09/07/22 11/23/22 Rx hydrALAZINE HCL [Apresoline] 25 mg PO BID 11/23/22 11/23/22 History predniSONE 5 mg PO DAILY 11/23/22 11/23/22 History predniSONE [Deltasone] 20 mg PO DIRECTED 11/23/22 11/23/22 History Allergies Allergy/AdvReac Type Severity Reaction Status Date / Time MIGUEL Inhibitors Allergy Unknown - Verified 11/23/22 19:42 per [facility] doxycycline Allergy Anaphylaxis Verified 11/23/22 19:42 Penicillins Allergy Anaphylaxis, Verified 11/23/22 19:42 Seizure Physical Exam Vitals: Vital Signs Temp Pulse Resp BP Pulse Ox 11/26/22 09:17 98 11/26/22 04:00 83 18 136/65 95 11/26/22 02:00 20 11/25/22 23:31 87 18 130/58 97 11/25/22 20:00 20 11/25/22 19:59 98.2 F 92 18 138/58 95 11/25/22 16:00 79 18 121/73 98 11/25/22 14:00 81 18 11/25/22 11:57 81 18 124/74 98 Intake and Output 11/25/22 11/26/22 11/26/22 22:59 06:59 14:59 Output Total 850 925 325 Balance -850 -925 -325 Output: Urine 799 817 124 Other: Voiding Method Urinal Urinal Diaper Diaper Results CBC & Chem 7: 11/26/22 07:20 11/26/22 07:20 Labs: Abnormal Lab Results - Last 24 Hours (Table) 11/25/22 11/25/22 11/25/22 Range/Units 11:34 16:32 19:45 RBC (4.30-5.90) m/uL Hgb (13.0-17.5) gm/dL Hct (39.0-53.0) % RDW (11.5-15.5) % Lymphocytes # (1.0-4.8) k/uL Sodium (137-145) mmol/L Chloride (98-107) mmol/L Carbon Dioxide (22-30) mmol/L BUN (9-20) mg/dL Creatinine (0.66-1.25) mg/dL Glucose (74-99) mg/dL POC Glucose (mg/dL) 165 H 244 H 265 H (70-110) mg/dL Calcium (8.4-10.2) mg/dL 11/26/22 11/26/22 11/26/22 Range/Units 05:39 07:20 07:20 RBC 3.83 L (4.30-5.90) m/uL Hgb 11.3 L (13.0-17.5) gm/dL Hct 34.5 L (39.0-53.0) % RDW 16.4 H (11.5-15.5) % Lymphocytes # 0.4 L (1.0-4.8) k/uL Sodium 130 L (137-145) mmol/L Chloride 88 L (98-107) mmol/L Carbon Dioxide 36 H (22-30) mmol/L BUN 21 H (9-20) mg/dL Creatinine 0.65 L (0.66-1.25) mg/dL Glucose 171 H (74-99) mg/dL POC Glucose (mg/dL) 189 H (70-110) mg/dL Calcium 8.1 L (8.4-10.2) mg/dL Assessment and Plan (1) Non-pressure chronic ulcer of left ankle limited to breakdown of skin Current Visit: Yes Status: Acute Code(s): L97.321 - NON-PRS CHRONIC ULCER OF LEFT ANKLE LIMITED TO BRKDWN SKIN SNOMED Code(s): 91889709883136870 (2) Chronic venous hypertension (idiopathic) with ulcer and inflammation of left lower extremity Current Visit: Yes Status: Acute Code(s): I87.332 - CHRONIC VENOUS HTN W ULCER AND INFLAMMATION OF L LOW EXTREM SNOMED Code(s): 582371167670373 (3) Type 2 diabetes mellitus with other skin ulcer Current Visit: Yes Status: Acute Code(s): E11.622 - TYPE 2 DIABETES MELLITUS WITH OTHER SKIN ULCER; L98.499 - NON-PRESSURE CHRONIC ULCER OF SKIN OF SITES W UNSP SEVERITY SNOMED Code(s): 656132152
[2022-11-26] MEDS: FUROSEMIDE 40 MG TAB PO SCH ×2 (10:09→17:44)
[2022-11-26] MEDS: APIXABAN 5 MG TAB PO SCH ×2 (10:09→19:51)
[2022-11-26] MEDS: POTASSIUM CHLORIDE ER 10 MEQ TAB.ER.PRT PO SCH (10:09)
[2022-11-26] MEDS: amLODIPine 10 MG TAB PO SCH (10:09)
[2022-11-26] MEDS: TAMSULOSIN 0.4 MG CAP.ER.24H PO SCH (10:09)
[2022-11-26 11:59] LABS: Glucose,Whole Blood 212 mg/dL (70-110)
--- NOTE | 2022-11-26 13:32 | P.PN ---
Subjective Progress Note Date: 11/26/22 This is a 72-year-old white male with history of multiple medical problems including severe COPD, chronic hypoxic respiratory failure, chronic atrial fibrillation, hypertension, degenerative joint disease, continues to smoke and the patient had multiple admissions to different hospitals including [facility] and [facility] with COPD exacerbations. Patient does not follow up in our office on a regular bases mostly because of transportation issues according to him. He was recently at [facility] with acute exacerbation of COPD. Patient was seen in the ER at [facility] yesterday, and his symptoms were mostly symptoms of shortness of breath cough and wheezing. Worsening over the last few days since he was discharged from [facility]. Chest x-ray showed COPD, mild interstitial lung disease, no evidence of infiltrate, no evidence of pneumonia. Patient was admitted and this consult was initiated. He had a relatively normal CBC. Normal basic metabolic profile. ABG showed a pO2 of 87 pCO2 of 63 pH of 7.45 and this was on 32% FiO2. Patient is not a great historian, and does not seem to be very cooperative as far as history taking. The patient is seen today 11/25/2022 in follow-up on the selective care unit. He is awake and alert and cooperative this morning. He sitting up in a chair at the bedside. Denies any worsening shortness of breath, cough or congestion. 18 O2 saturations in the high 90s on 4 L/m per nasal cannula. Afebrile. Hemodynamically stable. White count 9.2. Hemoglobin 11.7. Sodium 132. Potassium 4.3. Bicarb 39. BUN 15. Creatinine 0.54. Glucose 170. Pro- calcitonin 0.08. He remains on Symbicort, albuterol and Spiriva, IV Solu- Medrol, theophylline. Continued on oral diuretics. Anticoagulated with Eliquis. The patient is seen today 11/26/2022 in follow-up on the selective care unit. He is sitting up in a chair at the bedside. Awake and alert in no acute distress. No worsening shortness of breath, cough or congestion. Maintaining good O2 saturations in the 90s on 4 L/m per nasal cannula. He's been afebrile. Hemodynamically stable. Wound healthcare administration intern following regarding nonhealing ulcers of the left ankle and the chronic venous stasis with ulcerations of the l eft lower extremity. White count 8.2. Hemoglobin 11.3. Platelets 212. Sodium 130. Potassium 4.3. Bicarb 36. BUN 21. Creatinine 0.65. Glucose 171. He remains on Symbicort, albuterol and Spiriva, IV Solu-Medrol, theophylline. Continued on oral diuretics. Anticoagulated with Eliquis. Objective - Vital Signs Vital signs: Vital Signs Temp 97.4 F L 11/26/22 08:00 Pulse 81 11/26/22 12:00 Resp 18 11/26/22 12:00 BP 114/68 11/26/22 12:00 Pulse Ox 94 L 11/26/22 12:00 FiO2 Intake & Output 11/25/22 11/26/22 11/26/22 18:59 06:59 18:59 Intake Total 240 1000 Output Total 1200 1175 325 Balance -960 -1175 675 Intake: Oral 240 1000 Output: Urine 1200 1175 325 Other: Voiding Method Urinal Urinal Urinal Diaper Diaper Diaper # Voids 200 - Exam GENERAL EXAM: Alert, 72-year-old male, on 4 L nasal cannula, comfortable in no apparent distress. HEAD: Normocephalic. EYES: Normal reaction of pupils, equal size. NOSE: Clear with pink turbinates. THROAT: No erythema or exudates. NECK: No masses, no JVD. CHEST: No chest wall deformity. LUNGS: Equal air entry with bilateral end expiratory wheeze, diminished. CVS: S1 and S2 normal with no audible murmur, regular rhythm. ABDOMEN: No hepatosplenomegaly, normal bowel sounds, no guarding or rigidity. SPINE: No scoliosis or deformity SKIN: No rashes CENTRAL NERVOUS SYSTEM: No focal deficits, tone is normal in all 4 extremities. EXTREMITIES: Open wound of the left ankle. Changes of chronic venous stasis in the lower extremities. There is 1+ peripheral edema. Peripheral pulses are intact. - Labs CBC & Chem 7: 11/26/22 07:20 11/26/22 07:20 Labs: Abnormal Lab Results - Last 24 Hours (Table) 11/25/22 11/25/22 11/26/22 Range/Units 16:32 19:45 05:39 RBC (4.30-5.90) m/uL Hgb (13.0-17.5) gm/dL Hct (39.0-53.0) % RDW (11.5-15.5) % Lymphocytes # (1.0-4.8) k/uL Sodium (137-145) mmol/L Chloride (98-107) mmol/L Carbon Dioxide (22-30) mmol/L BUN (9-20) mg/dL Creatinine (0.66-1.25) mg/dL Glucose (74-99) mg/dL POC Glucose (mg/dL) 244 H 265 H 189 H (70-110) mg/dL Calcium (8.4-10.2) mg/dL 11/26/22 11/26/22 11/26/22 Range/Units 07:20 07:20 11:57 RBC 3.83 L (4.30-5.90) m/uL Hgb 11.3 L (13.0-17.5) gm/dL Hct 34.5 L (39.0-53.0) % RDW 16.4 H (11.5-15.5) % Lymphocytes # 0.4 L (1.0-4.8) k/uL Sodium 130 L (137-145) mmol/L Chloride 88 L (98-107) mmol/L Carbon Dioxide 36 H (22-30) mmol/L BUN 21 H (9-20) mg/dL Creatinine 0.65 L (0.66-1.25) mg/dL Glucose 171 H (74-99) mg/dL POC Glucose (mg/dL) 212 H (70-110) mg/dL Calcium 8.1 L (8.4-10.2) mg/dL Assessment and Plan Assessment: Acute on chronic hypoxemic respiratory failure secondary to an acute exacerbation of chronic obstructive pulmonary disease Chronic diastolic congestive heart failure Mild interstitial lung disease Chronic tobacco dependence Hypertension Chronic atrial fibrillation, anticoagulated with Eliquis Diabetes mellitus Diabetic neuropathy Open wounds of the left ankle and changes of chronic venous stasis of lower extremity Chronic pain syndrome History of noncompliance History of multiple hospitalizations at several local hospitals Plan: The patient was seen and evaluated Medications and labs reviewed Continue the current treatment plan Titrate down the FiO2 as tolerated Home once cleared by medicine We will continue to follow I have personally seen and examined the patient, performed the documentation and the assessment and plan as written. Number of minutes spent on the visit: 10.
[2022-11-26 16:18] LABS: Glucose,Whole Blood 318 mg/dL (70-110)
[2022-11-26] MEDS: HYDROPHILIC CREAM 180 GM TUBE TOPICAL SCH (17:45)
[2022-11-26] MEDS: NICOTINE 21MG/24HR PATCH TRANSDERM SCH (18:26)
[2022-11-26] MEDS: ATORVASTATIN 20 MG TAB PO SCH (19:51)
[2022-11-26 20:24] LABS: Glucose,Whole Blood 301 mg/dL (70-110)
--- NOTE | 2022-11-26 23:34 | P.PN ---
Subjective Progress Note Date: 11/25/22 Patient is a 72-year-old male with a known history of hypertension, hyperlipidemia, GERD, diabetes type 2 [id number], COPD on home oxygen at 3 L via nasal cannula, atrial fibrillation on anticoagulation with Eliquis, osteoarthritis, anxiety/depression currently everyday smoker presents to ER with complaints of shortness of breath and worsening leg swelling. Patient had trouble breathing and exertional dyspnea. Was also complaining of worsening leg swelling. Patient states that he was having shortness of breath with laying flat and has been sitting in the recliner most of the time. No complaints of chest pain. No fever no chills. Cough without much sputum production. Chest x-ray showed there is some mild pulmonary interstitial edema which is new compared to old exam and could be chronic fibrosis mild acute heart failure. No significant pleural fluid. EKG showed atrial fibrillation with controlled heart rate Laboratory data showed WBC 9.2 hemoglobin 11.7 and platelets 228 ABG showed pH of 7.45 PCO2 63 PO2 87 and bicarb 43 Sodium 134 potassium 4.1 chloride 90 bicarb is 38 BUN 8 and creatinine 47 Loramyc are not elevated and proBNP is 652 and troponin x1 negative and procal citonin level is 0.08 11/25/2022 Patient is currently sitting in the chair. Still having shortness of breath and bilateral diffuse wheezing and rhonchi present. Requiring 4 L oxygen via nasal cannula. Continues to have bilateral leg swelling with minimal improvement. Denies any chest pain. No nausea vomiting abdominal pain or diarrhea. Cough without any sputum production. Patient is being continued on IV Solu-Medrol, albuterol Atrovent inhalations and Lasix 40 mg twice daily. Also on anticoagulation with Eliquis. Laboratory test showed WBC 9.2 hemoglobin 11.7 platelets 229, sodium 132 po tassium 4.3 chloride 89 bicarb is 39 BUN 15 and creatinine 0.54 and blood sugar is 117 calcium 8.2. Pulmonary is on board. Current medications reviewed.. Objective - Vital Signs Vital signs: Vital Signs Temp 98.4 F 11/25/22 08:00 Pulse 92 11/25/22 19:59 Resp 18 11/25/22 19:59 BP 138/58 11/25/22 19:59 Pulse Ox 95 11/25/22 19:59 FiO2 Intake & Output 11/25/22 11/25/22 11/26/22 06:59 18:59 06:59 Intake Total 240 Output Total 950 1200 250 Balance -779 -115 -906 Intake: Oral 240 Output: Urine 950 1200 250 Other: Voiding Method Urinal Urinal Diaper Diaper # Voids 200 - Exam PHYSICAL EXAMINATION: Patient is lying in the bed comfortably, no acute distress, awake alert and oriented.. HEENT: Normocephalic. Neck is supple. Pupils reactive. Nostrils clear. Oral cavity is moist. Neck reveals no JVD, carotid bruits, or thyromegaly. CHEST EXAMINATION: Trachea is central. Symmetrical expansion. Bilateral diffuse wheezing and rhonchi. Nonlabored breathing.. CARDIAC: Normal S1, S2 with no gallops. No murmurs ABDOMEN: Soft. Bowel sounds present. Nontender. No organomegaly. No abdominal bruits. Extremities: Bilateral lower extremity 3+ edema. No clubbing or cyanosis Neurologically awake, alert, oriented x3 with well-coordinated movements. No focal deficits noted Skin: No rash or skin lesions. Psychiatric: Coperative. Nonsuicidal, rude sometimes with the staff. Musculoskeletal: No joint swelling or deformity. Normal range of motion. - Labs CBC & Chem 7: 11/26/22 07:20 11/26/22 07:20 Labs: Abnormal Lab Results - Last 24 Hours (Table) 11/25/22 11/25/22 11/25/22 Range/Units 06:02 07:45 07:45 RBC 4.02 L (4.30-5.90) m/uL Hgb 11.7 L (13.0-17.5) gm/dL Hct 36.6 L (39.0-53.0) % RDW 16.7 H (11.5-15.5) % Neutrophils # 8.3 H (1.3-7.7) k/uL Lymphocytes # 0.5 L (1.0-4.8) k/uL Sodium 132 L (137-145) mmol/L Chloride 89 L (98-107) mmol/L Carbon Dioxide 39 H (22-30) mmol/L Creatinine 0.54 L (0.66-1.25) mg/dL Glucose 170 H (74-99) mg/dL POC Glucose (mg/dL) 189 H (70-110) mg/dL Calcium 8.2 L (8.4-10.2) mg/dL 11/25/22 11/25/22 11/25/22 Range/Units 11:34 16:32 19:45 RBC (4.30-5.90) m/uL Hgb (13.0-17.5) gm/dL Hct (39.0-53.0) % RDW (11.5-15.5) % Neutrophils # (1.3-7.7) k/uL Lymphocytes # (1.0-4.8) k/uL Sodium (137-145) mmol/L Chloride (98-107) mmol/L Carbon Dioxide (22-30) mmol/L Creatinine (0.66-1.25) mg/dL Glucose (74-99) mg/dL POC Glucose (mg/dL) 165 H 244 H 265 H (70-110) mg/dL Calcium (8.4-10.2) mg/dL Assessment and Plan Assessment: Worsening shortness of breath secondary to acute COPD exacerbation Acute on chronic hypoxic and hypercapnic respiratory failure on home oxygen at 3 L via nasal cannula Bilateral lower extremity significant edema. Unlikely CHF exacerbation. Chronic CHF with diastolic dysfunction Acute tracheobronchitis. No evidence of pneumonia. Chronic atrial fibrillation on anticoagulation with Eliquis Diabetes type 2 Diabetic peripheral neuropathy Chronic pain syndrome Ongoing lipid addiction Noncompliance with medications and follow-up. Plan: Patient will be continued on IV Solu-Medrol 60 mg every 6 hourly and continue with Symbicort, albuterol and Spiriva. Continue with oxygen supplementation. Was given a dose of IV Lasix in the ER. Continue with Lasix 40 mg twice daily. Leg elevation Procalcitonin level is 0.08. Antibiotics have been discontinued. Current home medications and blood sugar control with insulin sliding scale. Follow-up closely. Cardiology and pulmonary is on board. Prognosis guarded with multiple medical problems and comorbid conditions. Time with Patient: Greater than 30
--- NOTE | 2022-11-26 23:38 | P.PN ---
Subjective Progress Note Date: 11/26/22 Patient is a 72-year-old male with a known history of hypertension, hyperlipidemia, GERD, diabetes type 2 [id number], COPD on home oxygen at 3 L via nasal cannula, atrial fibrillation on anticoagulation with Eliquis, osteoarthritis, anxiety/depression currently everyday smoker presents to ER with complaints of shortness of breath and worsening leg swelling. Patient had trouble breathing and exertional dyspnea. Was also complaining of worsening leg swelling. Patient states that he was having shortness of breath with laying flat and has been sitting in the recliner most of the time. No complaints of chest pain. No fever no chills. Cough without much sputum production. Chest x-ray showed there is some mild pulmonary interstitial edema which is new compared to old exam and could be chronic fibrosis mild acute heart failure. No significant pleural fluid. EKG showed atrial fibrillation with controlled heart rate Laboratory data showed WBC 9.2 hemoglobin 11.7 and platelets 228 ABG showed pH of 7.45 PCO2 63 PO2 87 and bicarb 43 Sodium 134 potassium 4.1 chloride 90 bicarb is 38 BUN 8 and creatinine 47 Loramyc are not elevated and proBNP is 652 and troponin x1 negative and procal citonin level is 0.08 11/25/2022 Patient is currently sitting in the chair. Still having shortness of breath and bilateral diffuse wheezing and rhonchi present. Requiring 4 L oxygen via nasal cannula. Continues to have bilateral leg swelling with minimal improvement. Denies any chest pain. No nausea vomiting abdominal pain or diarrhea. Cough without any sputum production. Patient is being continued on IV Solu-Medrol, albuterol Atrovent inhalations and Lasix 40 mg twice daily. Also on anticoagulation with Eliquis. Laboratory test showed WBC 9.2 hemoglobin 11.7 platelets 229, sodium 132 p otassium 4.3 chloride 89 bicarb is 39 BUN 15 and creatinine 0.54 and blood sugar is 117 calcium 8.2. Pulmonary is on board. 11/26/2022 Patient is currently resting in bed. Awake alert and oriented x3. No complaints of chest pain or worsening shortness of breath. Complains of cough with congestion and still having bilateral diffuse wheezing and rhonchi. Requiring oxygen at 4 L via nasal cannula. Otherwise laboratory data showed WBC 8.2 hemoglobin 11.3 and platelets 212 Sodium 130 potassium 4.3 chloride 88 bicarb is 36 BUN 21 and creatinine 0.65 and calcium 8.1. Blood sugar is 171. Current medications reviewed.. Objective - Vital Signs Vital signs: Vital Signs Temp 97.9 F 11/26/22 20:00 Pulse 84 11/26/22 20:00 Resp 18 11/26/22 20:00 BP 135/62 11/26/22 20:00 Pulse Ox 95 11/26/22 20:00 FiO2 Intake & Output 11/26/22 11/26/22 11/27/22 06:59 18:59 06:59 Intake Total 1000 220 Output Total 1175 775 Balance -1175 225 220 Intake: Oral 1000 220 Output: Urine 1175 775 Other: Voiding Method Urinal Urinal Urinal Diaper Diaper Diaper # Voids 1 # Bowel Movements 1 - Exam PHYSICAL EXAMINATION: Patient is lying in the bed comfortably, no acute distress, awake alert and oriented.. HEENT: Normocephalic. Neck is supple. Pupils reactive. Nostrils clear. Oral cavity is moist. Neck reveals no JVD, carotid bruits, or thyromegaly. CHEST EXAMINATION: Trachea is central. Symmetrical expansion. Bilateral diffuse wheezing. Nonlabored breathing.. CARDIAC: Normal S1, S2 with no gallops. No murmurs ABDOMEN: Soft. Bowel sounds present. Nontender. No organomegaly. No abdominal bruits. Extremities: Bilateral lower extremity 3+ edema. No clubbing or cyanosis Neurologically awake, alert, oriented x3 with well-coordinated movements. No focal deficits noted Skin: No rash or skin lesions. Psychiatric: Coperative. Nonsuicidal, rude sometimes with the staff. Musculoskeletal: No joint swelling or deformity. Normal range of motion. - Labs CBC & Chem 7: 11/27/22 07:16 11/27/22 07:16 Labs: Abnormal Lab Results - Last 24 Hours (Table) 11/26/22 11/26/22 11/26/22 Range/Units 05:39 07:20 07:20 RBC 3.83 L (4.30-5.90) m/uL Hgb 11.3 L (13.0-17.5) gm/dL Hct 34.5 L (39.0-53.0) % RDW 16.4 H (11.5-15.5) % Lymphocytes # 0.4 L (1.0-4.8) k/uL Sodium 130 L (137-145) mmol/L Chloride 88 L (98-107) mmol/L Carbon Dioxide 36 H (22-30) mmol/L BUN 21 H (9-20) mg/dL Creatinine 0.65 L (0.66-1.25) mg/dL Glucose 171 H (74-99) mg/dL POC Glucose (mg/dL) 189 H (70-110) mg/dL Calcium 8.1 L (8.4-10.2) mg/dL 11/26/22 11/26/22 11/26/22 Range/Units 11:57 16:16 20:23 RBC (4.30-5.90) m/uL Hgb (13.0-17.5) gm/dL Hct (39.0-53.0) % RDW (11.5-15.5) % Lymphocytes # (1.0-4.8) k/uL Sodium (137-145) mmol/L Chloride (98-107) mmol/L Carbon Dioxide (22-30) mmol/L BUN (9-20) mg/dL Creatinine (0.66-1.25) mg/dL Glucose (74-99) mg/dL POC Glucose (mg/dL) 212 H 318 H 301 H (70-110) mg/dL Calcium (8.4-10.2) mg/dL Assessment and Plan Assessment: Worsening shortness of breath secondary to acute COPD exacerbation Acute on chronic hypoxic and hypercapnic respiratory failure on home oxygen at 3 L via nasal cannula Bilateral lower extremity significant edema. Unlikely CHF exacerbation. Chronic CHF with diastolic dysfunction Acute tracheobronchitis. No evidence of pneumonia. Chronic atrial fibrillation on anticoagulation with Eliquis Diabetes type 2 Diabetic peripheral neuropathy Chronic pain syndrome Ongoing lipid addiction Noncompliance with medications and follow-up. Plan: Patient will be continued on IV Solu-Medrol 60 mg every 6 hourly and continue with Symbicort, albuterol and Spiriva. Continue with oxygen supplementation. Was given a dose of IV Lasix in the ER. Continue with Lasix 40 mg twice daily. Leg elevation and acewrapped Procalcitonin level is 0.08. Antibiotics have been discontinued. Current home medications and blood sugar control with insulin sliding scale. Follow-up closely. Cardiology and pulmonary is on board. PT OT consult and possible discharge to home with home PT in the next 24 hours. Prognosis guarded with multiple medical problems and comorbid conditions. Time with Patient: Greater than 30
[2022-11-27] MEDS: HYDROcodone/APAP 7.5-325MG 1 EACH TAB PO PRN ×5 (00:51→20:57)
[2022-11-27] MEDS: ALBUTEROL HFA INHALER INHALATION PRN (05:34)
[2022-11-27 06:09] LABS: Glucose,Whole Blood 190 mg/dL (70-110)
[2022-11-27] MEDS: INSULIN ASPART (NovoLOG) 100 UNIT/ML VIAL SQ SCH ×4 (06:35→20:59)
[2022-11-27] MEDS: methylPREDNISolone SOD SUCCI 125 MG/2 ML VIAL IV SCH ×4 (06:36→23:23)
[2022-11-27] MEDS: metFORMIN 500 MG TAB PO SCH ×2 (06:36→17:05)
[2022-11-27 07:45] LABS: Anisocytosis Slight; Basophils % (A) 0 %; Eosinophils % (A) 0 %; HCT 34.4 % (39.0-53.0); HGB 11.3 gm/dL (13.0-17.5); Lymphocytes # (A) 0.3 k/uL (1.0-4.8); Lymphocytes % (A) 4 %; MCH 29.5 pg (25.0-35.0); MCHC 32.8 g/dL (31.0-37.0); Mean Platelet Volume 7.1; Monocytes # (A) 0.3 k/uL (0-1.0); Monocytes % (A) 5 %; Neutrophils # (A) 6.2 k/uL (1.3-7.7); Neutrophils % (A) 91 %; Platelet Count 206 k/uL (150-450); RBC 3.82 m/uL (4.30-5.90); RDW 16.6 % (11.5-15.5); WBC 6.8 k/uL (3.8-10.6)
[2022-11-27 08:04] LABS: African American GFR (CKD) >90 (>60 ml/min/1.73 sqM); Blood Urea Nitrogen 23 mg/dL (9-20); Chloride 89 mmol/L (98-107); Glucose 168 mg/dL (74-99); Non-African American GFR(CKD) >90 (>60 ml/min/1.73 sqM); Potassium 4.4 mmol/L (3.5-5.1); Sodium 132 mmol/L (137-145)
[2022-11-27 08:11] LABS: Anion Gap 2 mmol/L
[2022-11-27 08:26] LABS: Carbon Dioxide 41 mmol/L (22-30)
[2022-11-27] MEDS: SYMBICORT 160-4.5 MCG INHALER INHALATION SCH ×2 (08:33→20:16)
[2022-11-27] MEDS: ALBUTEROL HFA INHALER INHALATION SCH ×4 (08:33→20:15)
[2022-11-27] MEDS: TIOTROPIUM 2.5 MCG INHALER INHALATION SCH (08:35)
[2022-11-27] MEDS: METOPROLOL TARTRATE 50 MG TAB PO SCH ×2 (10:05→21:08)
[2022-11-27] MEDS: TAMSULOSIN 0.4 MG CAP.ER.24H PO SCH (10:05)
[2022-11-27] MEDS: APIXABAN 5 MG TAB PO SCH ×2 (10:05→20:57)
[2022-11-27] MEDS: FUROSEMIDE 40 MG TAB PO SCH ×2 (10:05→16:05)
[2022-11-27] MEDS: NICOTINE 21MG/24HR PATCH TRANSDERM SCH (10:05)
[2022-11-27] MEDS: THEOPHYLLINE 24 HOUR 400 MG CAP.ER.24H PO SCH (10:05)
[2022-11-27] MEDS: ESCITALOPRAM 5 MG TAB PO SCH (10:05)
[2022-11-27] MEDS: PANTOPRAZOLE 40 MG TABLET PO SCH (10:05)
[2022-11-27] MEDS: amLODIPine 10 MG TAB PO SCH (10:07)
[2022-11-27] MEDS: GABAPENTIN 100 MG CAP PO SCH ×3 (10:07→23:23)
[2022-11-27] MEDS: POTASSIUM CHLORIDE ER 10 MEQ TAB.ER.PRT PO SCH (10:07)
[2022-11-27] MEDS: NITROGLYCERIN OINT 1 INCH/GM PACKET TOPICAL SCH ×4 (11:23→21:34)
[2022-11-27 11:40] LABS: Glucose,Whole Blood 173 mg/dL (70-110)
--- NOTE | 2022-11-27 13:09 | P.PN ---
Subjective Progress Note Date: 11/27/22 This is a 72-year-old white male with history of multiple medical problems including severe COPD, chronic hypoxic respiratory failure, chronic atrial fibrillation, hypertension, degenerative joint disease, continues to smoke and the patient had multiple admissions to different hospitals including [facility] and [facility] with COPD exacerbations. Patient does not follow up in our office on a regular bases mostly because of transportation issues according to him. He was recently at [facility] with acute exacerbation of COPD. Patient was seen in the ER at [facility] yesterday, and his symptoms were mostly symptoms of shortness of breath cough and wheezing. Worsening over the last few days since he was discharged from [facility]. Chest x-ray showed COPD, mild interstitial lung disease, no evidence of infiltrate, no evidence of pneumonia. Patient was admitted and this consult was initiated. He had a relatively normal CBC. Normal basic metabolic profile. ABG showed a pO2 of 87 pCO2 of 63 pH of 7.45 and this was on 32% FiO2. Patient is not a great historian, and does not seem to be very cooperative as far as history taking. The patient is seen today 11/25/2022 in follow-up on the selective care unit. He is awake and alert and cooperative this morning. He sitting up in a chair at the bedside. Denies any worsening shortness of breath, cough or congestion. 18 O2 saturations in the high 90s on 4 L/m per nasal cannula. Afebrile. Hemodynamically stable. White count 9.2. Hemoglobin 11.7. Sodium 132. Potassium 4.3. Bicarb 39. BUN 15. Creatinine 0.54. Glucose 170. Pro- calcitonin 0.08. He remains on Symbicort, albuterol and Spiriva, IV Solu- Medrol, theophylline. Continued on oral diuretics. Anticoagulated with Eliquis. The patient is seen today 11/26/2022 in follow-up on the selective care unit. He is sitting up in a chair at the bedside. Awake and alert in no acute distress. No worsening shortness of breath, cough or congestion. Maintaining good O2 saturations in the 90s on 4 L/m per nasal cannula. He's been afebrile. Hemodynamically stable. Wound home care aide following regarding nonhealing ulcers of the left ankle and the chronic venous stasis with ulcerations of the l eft lower extremity. White count 8.2. Hemoglobin 11.3. Platelets 212. Sodium 130. Potassium 4.3. Bicarb 36. BUN 21. Creatinine 0.65. Glucose 171. He remains on Symbicort, albuterol and Spiriva, IV Solu-Medrol, theophylline. Continued on oral diuretics. Anticoagulated with Eliquis. The patient is seen today 11/27/2022 in follow-up on the selective care unit. Awake and alert in no acute distress. Sitting up in a chair at the bedside. No worsening shortness of breath, cough or congestion. Maintaining O2 saturations in the 90s on 4 L/m per nasal cannula. Less wheezing and bronchospasm. White count 6.8. Hemoglobin 11.3. Platelets 206. Sodium 132. Potassium 4.4. Bicarb 41. BUN 23. Creatinine 0.69. Glucose 168. He remains on Symbicort, albuterol and Spiriva, IV Solu-Medrol, theophylline. Continued on oral diuretics. Anticoagulated with Eliquis. Receiving Triad cream to the lower extremity ulcers. Objective - Vital Signs Vital signs: Vital Signs Temp 98.1 F 11/27/22 08:00 Pulse 72 11/27/22 08:00 Resp 18 11/27/22 08:00 BP 152/69 11/27/22 08:00 Pulse Ox 98 11/27/22 08:33 FiO2 Intake & Output 11/26/22 11/27/22 11/27/22 18:59 06:59 18:59 Intake Total 2620 486 2622 Output Total 775 300 Balance 225 -80 1440 Weight 119.8 kg Intake: Oral 4408 306 2947 Output: Urine 775 300 Other: Voiding Method Urinal Urinal Urinal Diaper Diaper Diaper # Voids 1 # Bowel Movements 1 - Exam GENERAL EXAM: Alert, 72-year-old male, up in a chair at the bedside, on 4 L nasal cannula, comfortable in no apparent distress. HEAD: Normocephalic. EYES: Normal reaction of pupils, equal size. NOSE: Clear with pink turbinates. THROAT: No erythema or exudates. NECK: No masses, no JVD. CHEST: No chest wall deformity. LUNGS: Equal air entry with bilateral end expiratory wheeze, diminished. CVS: S1 and S2 normal with no audible murmur, regular rhythm. ABDOMEN: No hepatosplenomegaly, normal bowel sounds, no guarding or rigidity. SPINE: No scoliosis or deformity SKIN: No rashes CENTRAL NERVOUS SYSTEM: No focal deficits, tone is normal in all 4 extremities. EXTREMITIES: Open wound of the left ankle. Changes of chronic venous stasis in the lower extremities. There is 1+ peripheral edema. Peripheral pulses are intact. - Labs CBC & Chem 7: 11/27/22 07:16 11/27/22 07:16 Labs: Abnormal Lab Results - Last 24 Hours (Table) 11/26/22 11/26/22 11/27/22 Range/Units 16:16 20:23 06:05 RBC (4.30-5.90) m/uL Hgb (13.0-17.5) gm/dL Hct (39.0-53.0) % RDW (11.5-15.5) % Lymphocytes # (1.0-4.8) k/uL Sodium (137-145) mmol/L Chloride (98-107) mmol/L Carbon Dioxide (22-30) mmol/L BUN (9-20) mg/dL Glucose (74-99) mg/dL POC Glucose (mg/dL) 318 H 301 H 190 H (70-110) mg/dL Calcium (8.4-10.2) mg/dL 11/27/22 11/27/22 11/27/22 Range/Units 07:16 07:16 11:38 RBC 3.82 L (4.30-5.90) m/uL Hgb 11.3 L (13.0-17.5) gm/dL Hct 34.4 L (39.0-53.0) % RDW 16.6 H (11.5-15.5) % Lymphocytes # 0.3 L (1.0-4.8) k/uL Sodium 132 L (137-145) mmol/L Chloride 89 L (98-107) mmol/L Carbon Dioxide 41 H* (22-30) mmol/L BUN 23 H (9-20) mg/dL Glucose 168 H (74-99) mg/dL POC Glucose (mg/dL) 173 H (70-110) mg/dL Calcium 8.0 L (8.4-10.2) mg/dL Assessment and Plan Assessment: Acute on chronic hypoxemic respiratory failure secondary to an acute exacerbation of chronic obstructive pulmonary disease Chronic diastolic congestive heart failure Mild interstitial lung disease Chronic tobacco dependence Hypertension Chronic atrial fibrillation, anticoagulated with Eliquis Diabetes mellitus Diabetic neuropathy Open wounds of the lower extremities and changes of chronic venous stasis of lower extremity Chronic pain syndrome History of noncompliance History of multiple hospitalizations at several local hospitals Plan: The patient was seen and evaluated Medications and labs reviewed Continue bronchodilators, IV Solu-Medrol Titrate down the FiO2 as tolerated Quite adamant about not going to subacute rehab We will continue to follow I have personally seen and examined the patient, performed the documentation and the assessment and plan as written. Number of minutes spent on the visit: 10.
[2022-11-27] MEDS: HYDROPHILIC CREAM 180 GM TUBE TOPICAL SCH (14:46)
[2022-11-27 16:29] LABS: Glucose,Whole Blood 449 mg/dL (70-110)
[2022-11-27 16:35] LABS: Glucose,Whole Blood 387 mg/dL (70-110)
[2022-11-27 20:18] LABS: Glucose,Whole Blood 241 mg/dL (70-110)
[2022-11-27] MEDS: ATORVASTATIN 20 MG TAB PO SCH (20:57)
[2022-11-28] MEDS: HYDROcodone/APAP 7.5-325MG 1 EACH TAB PO PRN ×4 (01:42→21:15)
[2022-11-28] MEDS: ALBUTEROL HFA INHALER INHALATION PRN (05:12)
[2022-11-28] MEDS: methylPREDNISolone SOD SUCCI 125 MG/2 ML VIAL IV SCH ×4 (05:28→23:48)
[2022-11-28 05:53] LABS: Glucose,Whole Blood 248 mg/dL (70-110)
[2022-11-28] MEDS: INSULIN ASPART (NovoLOG) 100 UNIT/ML VIAL SQ SCH ×4 (06:36→21:15)
[2022-11-28] MEDS: metFORMIN 500 MG TAB PO SCH ×2 (06:37→17:47)
[2022-11-28] MEDS: SYMBICORT 160-4.5 MCG INHALER INHALATION SCH ×2 (08:15→20:02)
[2022-11-28] MEDS: TIOTROPIUM 2.5 MCG INHALER INHALATION SCH (08:15)
[2022-11-28] MEDS: ALBUTEROL HFA INHALER INHALATION SCH ×4 (08:15→20:02)
[2022-11-28] MEDS: NITROGLYCERIN OINT 1 INCH/GM PACKET TOPICAL SCH ×4 (09:49→21:18)
[2022-11-28] MEDS: amLODIPine 10 MG TAB PO SCH (09:58)
[2022-11-28] MEDS: FUROSEMIDE 40 MG TAB PO SCH ×2 (09:58→17:47)
[2022-11-28] MEDS: TAMSULOSIN 0.4 MG CAP.ER.24H PO SCH (09:58)
[2022-11-28] MEDS: ESCITALOPRAM 5 MG TAB PO SCH (09:59)
[2022-11-28] MEDS: METOPROLOL TARTRATE 50 MG TAB PO SCH ×2 (09:59→21:15)
[2022-11-28] MEDS: APIXABAN 5 MG TAB PO SCH ×2 (09:59→21:14)
[2022-11-28] MEDS: THEOPHYLLINE 24 HOUR 400 MG CAP.ER.24H PO SCH (09:59)
[2022-11-28] MEDS: POTASSIUM CHLORIDE ER 10 MEQ TAB.ER.PRT PO SCH (09:59)
[2022-11-28] MEDS: NICOTINE 21MG/24HR PATCH TRANSDERM SCH (09:59)
[2022-11-28] MEDS: PANTOPRAZOLE 40 MG TABLET PO SCH (09:59)
[2022-11-28] MEDS: GABAPENTIN 100 MG CAP PO SCH ×3 (09:59→21:14)
[2022-11-28 11:30] LABS: Glucose,Whole Blood 254 mg/dL (70-110)
[2022-11-28] MEDS: HYDROPHILIC CREAM 180 GM TUBE TOPICAL SCH (11:50)
--- NOTE | 2022-11-28 13:17 | P.PN ---
Subjective Progress Note Date: 11/28/22 This is a 72-year-old white male with history of multiple medical problems including severe COPD, chronic hypoxic respiratory failure, chronic atrial fibrillation, hypertension, degenerative joint disease, continues to smoke and the patient had multiple admissions to different hospitals including [facility] and [facility] with COPD exacerbations. Patient does not follow up in our office on a regular bases mostly because of transportation issues according to him. He was recently at [facility] with acute exacerbation of COPD. Patient was seen in the ER at [facility] yesterday, and his symptoms were mostly symptoms of shortness of breath cough and wheezing. Worsening over the last few days since he was discharged from [facility]. Chest x-ray showed COPD, mild interstitial lung disease, no evidence of infiltrate, no evidence of pneumonia. Patient was admitted and this consult was initiated. He had a relatively normal CBC. Normal basic metabolic profile. ABG showed a pO2 of 87 pCO2 of 63 pH of 7.45 and this was on 32% FiO2. Patient is not a great historian, and does not seem to be very cooperative as far as history taking. The patient is seen today 11/25/2022 in follow-up on the selective care unit. He is awake and alert and cooperative this morning. He sitting up in a chair at the bedside. Denies any worsening shortness of breath, cough or congestion. 18 O2 saturations in the high 90s on 4 L/m per nasal cannula. Afebrile. Hemodynamically stable. White count 9.2. Hemoglobin 11.7. Sodium 132. Potassium 4.3. Bicarb 39. BUN 15. Creatinine 0.54. Glucose 170. Pro- calcitonin 0.08. He remains on Symbicort, albuterol and Spiriva, IV Solu- Medrol, theophylline. Continued on oral diuretics. Anticoagulated with Eliquis. The patient is seen today 11/26/2022 in follow-up on the selective care unit. He is sitting up in a chair at the bedside. Awake and alert in no acute distress. No worsening shortness of breath, cough or congestion. Maintaining good O2 saturations in the 90s on 4 L/m per nasal cannula. He's been afebrile. Hemodynamically stable. Wound career technology teacher following regarding nonhealing ulcers of the left ankle and the chronic venous stasis with ulcerations of the l eft lower extremity. White count 8.2. Hemoglobin 11.3. Platelets 212. Sodium 130. Potassium 4.3. Bicarb 36. BUN 21. Creatinine 0.65. Glucose 171. He remains on Symbicort, albuterol and Spiriva, IV Solu-Medrol, theophylline. Continued on oral diuretics. Anticoagulated with Eliquis. The patient is seen today 11/27/2022 in follow-up on the selective care unit. Awake and alert in no acute distress. Sitting up in a chair at the bedside. No worsening shortness of breath, cough or congestion. Maintaining O2 saturations in the 90s on 4 L/m per nasal cannula. Less wheezing and bronchospasm. White count 6.8. Hemoglobin 11.3. Platelets 206. Sodium 132. Potassium 4.4. Bicarb 41. BUN 23. Creatinine 0.69. Glucose 168. He remains on Symbicort, albuterol and Spiriva, IV Solu-Medrol, theophylline. Continued on oral diuretics. Anticoagulated with Eliquis. Receiving Triad cream to the lower extremity ulcers. Patient is seen today 11/28/2022 in follow-up on the regular medical floor. He sitting up in a chair at bedside. Awake and alert in no acute distress. Denies any worsening shortness of breath, cough or congestion. Feeling back to his baseline. Maintaining good O2 saturations in the 90s on 2 L/m per nasal cannula. He is continued on Symbicort, theophylline, albuterol and Spiriva, IV Solu-Medrol. Anticoagulated with Eliquis. Remains on oral diuretics. Objective - Vital Signs Vital signs: Vital Signs Temp 97.6 F 11/28/22 08:04 Pulse 53 L 11/28/22 08:04 Resp 17 11/28/22 08:04 BP 129/70 11/28/22 08:04 Pulse Ox 96 11/28/22 08:15 FiO2 Intake & Output 11/27/22 11/28/22 11/28/22 18:59 06:59 18:59 Intake Total 1440 720 Output Total 400 1900 Balance 1040 -1180 Weight 120.8 kg Intake: Oral 1440 720 Output: Urine 400 1900 Other: Voiding Method Urinal Diaper # Bowel Movements 1 - Exam GENERAL EXAM: Alert, 72-year-old male, up in a chair at the bedside, on 2 L nasal cannula, comfortable in no apparent distress. HEAD: Normocephalic. EYES: Normal reaction of pupils, equal size. NOSE: Clear with pink turbinates. THROAT: No erythema or exudates. NECK: No masses, no JVD. CHEST: No chest wall deformity. LUNGS: Equal air entry with bilateral end expiratory wheeze, diminished. CVS: S1 and S2 normal with no audible murmur, regular rhythm. ABDOMEN: No hepatosplenomegaly, normal bowel sounds, no guarding or rigidity. SPINE: No scoliosis or deformity SKIN: No rashes CENTRAL NERVOUS SYSTEM: No focal deficits, tone is normal in all 4 extremities. EXTREMITIES: Open wound of the left ankle. Changes of chronic venous stasis in the lower extremities. There is 1+ peripheral edema. Peripheral pulses are intact. - Labs CBC & Chem 7: 11/27/22 07:16 11/27/22 07:16 Labs: Abnormal Lab Results - Last 24 Hours (Table) 11/27/22 11/27/22 11/27/22 Range/Units 16:28 16:33 20:15 POC Glucose (mg/dL) 449 H 387 H 241 H (70-110) mg/dL 11/28/22 11/28/22 Range/Units 05:51 11:27 POC Glucose (mg/dL) 248 H 254 H (70-110) mg/dL Assessment and Plan Assessment: Acute on chronic hypoxemic respiratory failure secondary to an acute exacerba tion of chronic obstructive pulmonary disease Chronic diastolic congestive heart failure Mild interstitial lung disease Chronic tobacco dependence Open wounds of the lower extremities and changes of chronic venous stasis of lower extremity Hypertension Chronic atrial fibrillation, anticoagulated with Eliquis Diabetes mellitus Diabetic neuropathy Chronic pain syndrome History of noncompliance History of multiple hospitalizations at several local hospitals Plan: The patient was seen and evaluated Medications and labs reviewed Continue bronchodilators, IV Solu-Medrol Titrate down the FiO2 as tolerated Quite adamant about not going to subacute rehab Probable discharge in the a.m. We will continue to follow I have personally seen and examined the patient, performed the documentation and the assessment and plan as written. Number of minutes spent on the visit: 10.
[2022-11-28 17:04] LABS: Glucose,Whole Blood 198 mg/dL (70-110)
[2022-11-28 20:30] LABS: Glucose,Whole Blood 226 mg/dL (70-110)
[2022-11-28] MEDS: ATORVASTATIN 20 MG TAB PO SCH (21:15)
[2022-11-28] MEDS ORDERED: HYDROmorphone 0.5 MG/0.5 ML SYRINGE IVP STA (23:19)
[2022-11-28] MEDS ORDERED: MELATONIN 3 MG TABLET PO PRN (23:20)
[2022-11-28] MEDS ORDERED: GABAPENTIN 100 MG CAP PO ONE (23:30)
[2022-11-29] MEDS: HYDROcodone/APAP 7.5-325MG 1 EACH TAB PO PRN ×4 (01:06→15:18)
--- NOTE | 2022-11-29 02:26 | P.PN ---
Subjective Progress Note Date: 11/27/22 Patient is a 72-year-old male with a known history of hypertension, hyperlipidemia, GERD, diabetes type 2 [id number], COPD on home oxygen at 3 L via nasal cannula, atrial fibrillation on anticoagulation with Eliquis, osteoarthritis, anxiety/depression currently everyday smoker presents to ER with complaints of shortness of breath and worsening leg swelling. Patient had trouble breathing and exertional dyspnea. Was also complaining of worsening leg swelling. Patient states that he was having shortness of breath with laying flat and has been sitting in the recliner most of the time. No complaints of chest pain. No fever no chills. Cough without much sputum production. Chest x-ray showed there is some mild pulmonary interstitial edema which is new compared to old exam and could be chronic fibrosis mild acute heart failure. No significant pleural fluid. EKG showed atrial fibrillation with controlled heart rate Laboratory data showed WBC 9.2 hemoglobin 11.7 and platelets 228 ABG showed pH of 7.45 PCO2 63 PO2 87 and bicarb 43 Sodium 134 potassium 4.1 chloride 90 bicarb is 38 BUN 8 and creatinine 47 Loramyc are not elevated and proBNP is 652 and troponin x1 negative and procal citonin level is 0.08 11/25/2022 Patient is currently sitting in the chair. Still having shortness of breath and bilateral diffuse wheezing and rhonchi present. Requiring 4 L oxygen via nasal cannula. Continues to have bilateral leg swelling with minimal improvement. Denies any chest pain. No nausea vomiting abdominal pain or diarrhea. Cough without any sputum production. Patient is being continued on IV Solu-Medrol, albuterol Atrovent inhalations and Lasix 40 mg twice daily. Also on anticoagulation with Eliquis. Laboratory test showed WBC 9.2 hemoglobin 11.7 platelets 229, sodium 132 p otassium 4.3 chloride 89 bicarb is 39 BUN 15 and creatinine 0.54 and blood sugar is 117 calcium 8.2. Pulmonary is on board. 11/26/2022 Patient is currently resting in bed. Awake alert and oriented x3. No complaints of chest pain or worsening shortness of breath. Complains of cough with congestion and still having bilateral diffuse wheezing and rhonchi. Requiring oxygen at 4 L via nasal cannula. Otherwise laboratory data showed WBC 8.2 hemoglobin 11.3 and platelets 212 Sodium 130 potassium 4.3 chloride 88 bicarb is 36 BUN 21 and creatinine 0.65 and calcium 8.1. Blood sugar is 171. 11/27/2022 Patient is currently sitting in the chair. Awake alert and oriented x3. Breathing status is better. Patient does have bilateral wheezing but air entry is improving. Less bronchospastic. Currently on 4 L oxygen via nasal cannula. Patient is being continued on IV Solu-Medrol and oral diuretics. On anticoagulation with Eliquis. Patient is still having significant lower extremity swelling and wound care is being done. Current medications reviewed.. Objective - Vital Signs Vital signs: Vital Signs Temp 97.3 F L 11/27/22 19:42 Pulse 83 11/27/22 19:42 Resp 18 11/27/22 19:42 BP 137/76 11/27/22 19:42 Pulse Ox 97 11/27/22 19:42 FiO2 Intake & Output 11/27/22 11/27/22 11/28/22 06:59 18:59 06:59 Intake Total 220 1440 Output Total 300 400 900 Balance -80 1040 -900 Weight 119.8 kg Intake: Oral 220 1440 Output: Urine 300 400 900 Other: Voiding Method Urinal Urinal Diaper Diaper # Voids 1 # Bowel Movements 1 1 - Exam PHYSICAL EXAMINATION: Patient is lying in the bed comfortably, no acute distress, awake alert and oriented.. HEENT: Normocephalic. Neck is supple. Pupils reactive. Nostrils clear. Oral cavity is moist. Neck reveals no JVD, carotid bruits, or thyromegaly. CHEST EXAMINATION: Trachea is central. Symmetrical expansion. Bilateral diffuse wheezing. Nonlabored breathing.. CARDIAC: Normal S1, S2 with no gallops. No murmurs ABDOMEN: Soft. Bowel sounds present. Nontender. No organomegaly. No abdominal bruits. Extremities: Bilateral lower extremity 3+ edema. No clubbing or cyanosis Neurologically awake, alert, oriented x3 with well-coordinated movements. No focal deficits noted Skin: No rash or skin lesions. Psychiatric: Coperative. Nonsuicidal, rude sometimes with the staff. Musculoskeletal: No joint swelling or deformity. Normal range of motion. - Labs CBC & Chem 7: 11/27/22 07:16 11/27/22 07:16 Labs: Abnormal Lab Results - Last 24 Hours (Table) 11/27/22 11/27/22 11/27/22 Range/Units 06:05 07:16 07:16 RBC 3.82 L (4.30-5.90) m/uL Hgb 11.3 L (13.0-17.5) gm/dL Hct 34.4 L (39.0-53.0) % RDW 16.6 H (11.5-15.5) % Lymphocytes # 0.3 L (1.0-4.8) k/uL Sodium 132 L (137-145) mmol/L Chloride 89 L (98-107) mmol/L Carbon Dioxide 41 H* (22-30) mmol/L BUN 23 H (9-20) mg/dL Glucose 168 H (74-99) mg/dL POC Glucose (mg/dL) 190 H (70-110) mg/dL Calcium 8.0 L (8.4-10.2) mg/dL 11/27/22 11/27/22 11/27/22 Range/Units 11:38 16:28 16:33 RBC (4.30-5.90) m/uL Hgb (13.0-17.5) gm/dL Hct (39.0-53.0) % RDW (11.5-15.5) % Lymphocytes # (1.0-4.8) k/uL Sodium (137-145) mmol/L Chloride (98-107) mmol/L Carbon Dioxide (22-30) mmol/L BUN (9-20) mg/dL Glucose (74-99) mg/dL POC Glucose (mg/dL) 173 H 449 H 387 H (70-110) mg/dL Calcium (8.4-10.2) mg/dL 11/27/22 Range/Units 20:15 RBC (4.30-5.90) m/uL Hgb (13.0-17.5) gm/dL Hct (39.0-53.0) % RDW (11.5-15.5) % Lymphocytes # (1.0-4.8) k/uL Sodium (137-145) mmol/L Chloride (98-107) mmol/L Carbon Dioxide (22-30) mmol/L BUN (9-20) mg/dL Glucose (74-99) mg/dL POC Glucose (mg/dL) 241 H (70-110) mg/dL Calcium (8.4-10.2) mg/dL Assessment and Plan Assessment: Worsening shortness of breath secondary to acute COPD exacerbation Acute on chronic hypoxic and hypercapnic respiratory failure on home oxygen at 3 L via nasal cannula Bilateral lower extremity significant edema. Unlikely CHF exacerbation. Chronic CHF with diastolic dysfunction Acute tracheobronchitis. No evidence of pneumonia. Chronic atrial fibrillation on anticoagulation with Eliquis Diabetes type 2 Diabetic peripheral neuropathy Chronic pain syndrome Ongoing lipid addiction Noncompliance with medications and follow-up. Plan: Patient will be continued on IV Solu-Medrol 60 mg every 6 hourly and continue with Symbicort, albuterol and Spiriva. Continue with oxygen supplementation.Titrate down to 3 L. Was given a dose of IV Lasix in the ER. Continue with Lasix 40 mg twice daily. Leg elevation and acewrapped and wound care Procalcitonin level is 0.08. Antibiotics have been discontinued. Current home medications and blood sugar control with insulin sliding scale. Follow-up closely. Cardiology and pulmonary is on board. PT OT consult and possible discharge. Patient does not want to go to rehab. Prognosis guarded with multiple medical problems and comorbid conditions. Time with Patient: Greater than 30
--- NOTE | 2022-11-29 02:28 | P.PN ---
Subjective Progress Note Date: 11/28/22 Patient is a 72-year-old male with a known history of hypertension, hyperlipidemia, GERD, diabetes type 2 [id number], COPD on home oxygen at 3 L via nasal cannula, atrial fibrillation on anticoagulation with Eliquis, osteoarthritis, anxiety/depression currently everyday smoker presents to ER with complaints of shortness of breath and worsening leg swelling. Patient had trouble breathing and exertional dyspnea. Was also complaining of worsening leg swelling. Patient states that he was having shortness of breath with laying flat and has been sitting in the recliner most of the time. No complaints of chest pain. No fever no chills. Cough without much sputum production. Chest x-ray showed there is some mild pulmonary interstitial edema which is new compared to old exam and could be chronic fibrosis mild acute heart failure. No significant pleural fluid. EKG showed atrial fibrillation with controlled heart rate Laboratory data showed WBC 9.2 hemoglobin 11.7 and platelets 228 ABG showed pH of 7.45 PCO2 63 PO2 87 and bicarb 43 Sodium 134 potassium 4.1 chloride 90 bicarb is 38 BUN 8 and creatinine 47 Loramyc are not elevated and proBNP is 652 and troponin x1 negative and procal citonin level is 0.08 11/25/2022 Patient is currently sitting in the chair. Still having shortness of breath and bilateral diffuse wheezing and rhonchi present. Requiring 4 L oxygen via nasal cannula. Continues to have bilateral leg swelling with minimal improvement. Denies any chest pain. No nausea vomiting abdominal pain or diarrhea. Cough without any sputum production. Patient is being continued on IV Solu-Medrol, albuterol Atrovent inhalations and Lasix 40 mg twice daily. Also on anticoagulation with Eliquis. Laboratory test showed WBC 9.2 hemoglobin 11.7 platelets 229, sodium 132 p otassium 4.3 chloride 89 bicarb is 39 BUN 15 and creatinine 0.54 and blood sugar is 117 calcium 8.2. Pulmonary is on board. 11/26/2022 Patient is currently resting in bed. Awake alert and oriented x3. No complaints of chest pain or worsening shortness of breath. Complains of cough with congestion and still having bilateral diffuse wheezing and rhonchi. Requiring oxygen at 4 L via nasal cannula. Otherwise laboratory data showed WBC 8.2 hemoglobin 11.3 and platelets 212 Sodium 130 potassium 4.3 chloride 88 bicarb is 36 BUN 21 and creatinine 0.65 and calcium 8.1. Blood sugar is 171. 11/27/2022 Patient is currently sitting in the chair. Awake alert and oriented x3. Breathing status is better. Patient does have bilateral wheezing but air entry is improving. Less bronchospastic. Currently on 4 L oxygen via nasal cannula. Patient is being continued on IV Solu-Medrol and oral diuretics. On anticoagulation with Eliquis. Patient is still having significant lower extremity swelling and wound care is being done. 11/28/2022 Patient is currently sitting in a chair. Awake alert and oriented x3. Still having bilateral lower extremity swelling and wound care is being done. Continue with leg elevation and also on oral diuretics. Breathing status is better and less bronchospastic. Currently on 2 L oxygen via nasal cannula. Denies any chest pain or worsening shortness of breath. No cough or sputum production. Patient is being current on IV steroids. Anticipate discharge in the next 24 hours with home PT and [facility]ci arrangement as well as wound care. Patient does not want to go to rehab. Current medications reviewed.. Objective - Vital Signs Vital signs: Vital Signs Temp 97.6 F 11/28/22 08:04 Pulse 53 L 11/28/22 08:04 Resp 17 11/28/22 08:04 BP 129/70 11/28/22 08:04 Pulse Ox 96 11/28/22 08:15 FiO2 Intake & Output 11/27/22 11/28/22 11/28/22 18:59 06:59 18:59 Intake Total 1440 720 Output Total 400 1900 Balance 1040 -1180 Weight 120.8 kg Intake: Oral 1440 720 Output: Urine 400 1900 Other: Voiding Method Urinal Diaper # Bowel Movements 1 - Exam PHYSICAL EXAMINATION: Patient is lying in the bed comfortably, no acute distress, awake alert and oriented.. HEENT: Normocephalic. Neck is supple. Pupils reactive. Nostrils clear. Oral cavity is moist. Neck reveals no JVD, carotid bruits, or thyromegaly. CHEST EXAMINATION: Trachea is central. Symmetrical expansion. Bilateral diffuse wheezing. Nonlabored breathing.. CARDIAC: Normal S1, S2 with no gallops. No murmurs ABDOMEN: Soft. Bowel sounds present. Nontender. No organomegaly. No abdominal bruits. Extremities: Bilateral lower extremity 3+ edema. No clubbing or cyanosis Neurologically awake, alert, oriented x3 with well-coordinated movements. No focal deficits noted Skin: No rash or skin lesions. Psychiatric: Coperative. Nonsuicidal, rude sometimes with the staff. Musculoskeletal: No joint swelling or deformity. Normal range of motion. - Labs CBC & Chem 7: 11/27/22 07:16 11/27/22 07:16 Labs: Abnormal Lab Results - Last 24 Hours (Table) 11/27/22 11/27/22 11/27/22 Range/Units 16:28 16:33 20:15 POC Glucose (mg/dL) 449 H 387 H 241 H (70-110) mg/dL 11/28/22 11/28/22 Range/Units 05:51 11:27 POC Glucose (mg/dL) 248 H 254 H (70-110) mg/dL Assessment and Plan Assessment: Worsening shortness of breath secondary to acute COPD exacerbation Acute on chronic hypoxic and hypercapnic respiratory failure on home oxygen at 2-3 L via nasal cannula Bilateral lower extremity significant edema. Unlikely CHF exacerbation. Chronic CHF with diastolic dysfunction Acute tracheobronchitis. No evidence of pneumonia. Chronic atrial fibrillation on anticoagulation with Eliquis Diabetes type 2 Diabetic peripheral neuropathy Chronic pain syndrome Ongoing lipid addiction Noncompliance with medications and follow-up. Plan: Patient will be continued on IV Solu-Medrol 60 mg every 6 hourly and continue with Symbicort, albuterol and Spiriva. Continue with oxygen supplementation.Titrate down to 2 L. Was given a dose of IV Lasix in the ER. Continue with Lasix 40 mg twice daily. Leg elevation and acewrapped and wound care Procalcitonin level is 0.08. Antibiotics have been discontinued. Current home medications and blood sugar control with insulin sliding scale. Follow-up closely. Cardiology and pulmonary is on board. PT OT consult and possible discharge. Patient does not want to go to rehab. Prognosis guarded with multiple medical problems and comorbid conditions. Time with Patient: Greater than 30
[2022-11-29] MEDS: ALBUTEROL HFA INHALER INHALATION PRN (04:44)
[2022-11-29] MEDS: metFORMIN 500 MG TAB PO SCH ×2 (05:57→17:45)
[2022-11-29] MEDS: methylPREDNISolone SOD SUCCI 125 MG/2 ML VIAL IV SCH ×2 (05:57→12:29)
[2022-11-29 06:17] LABS: Glucose,Whole Blood 184 mg/dL (70-110)
[2022-11-29] MEDS: INSULIN ASPART (NovoLOG) 100 UNIT/ML VIAL SQ SCH ×3 (06:27→17:45)
[2022-11-29] MEDS: amLODIPine 10 MG TAB PO SCH (09:06)
[2022-11-29] MEDS: APIXABAN 5 MG TAB PO SCH (09:06)
[2022-11-29] MEDS: TAMSULOSIN 0.4 MG CAP.ER.24H PO SCH (09:06)
[2022-11-29] MEDS: GABAPENTIN 100 MG CAP PO SCH (09:06)
[2022-11-29] MEDS: METOPROLOL TARTRATE 50 MG TAB PO SCH (09:06)
[2022-11-29] MEDS: FUROSEMIDE 40 MG TAB PO SCH ×2 (09:06→15:14)
[2022-11-29] MEDS: POTASSIUM CHLORIDE ER 10 MEQ TAB.ER.PRT PO SCH (09:06)
[2022-11-29] MEDS: NICOTINE 21MG/24HR PATCH TRANSDERM SCH (09:07)
[2022-11-29] MEDS: PANTOPRAZOLE 40 MG TABLET PO SCH (09:07)
[2022-11-29] MEDS: NITROGLYCERIN OINT 1 INCH/GM PACKET TOPICAL SCH ×3 (09:07→17:44)
[2022-11-29] MEDS: HYDROPHILIC CREAM 180 GM TUBE TOPICAL SCH (09:08)
[2022-11-29] MEDS: ESCITALOPRAM 5 MG TAB PO SCH (09:08)
[2022-11-29] MEDS: THEOPHYLLINE 24 HOUR 400 MG CAP.ER.24H PO SCH (09:09)
[2022-11-29 09:17] LABS: African American GFR (CKD) 115.6 (60.0-200.0); Anion Gap 11.2 mmol/L (10.00-18.00); BUN/Creat Ratio 40.17 Ratio (12.00-20.00); Blood Urea Nitrogen 24.1 mg/dL (9.0-27.0); Calcium 8.6 mg/dL (8.7-10.3); Carbon Dioxide 34.8 mmol/L (20.0-27.5); Non-African American GFR(CKD) 99.7 (60.0-200.0); Potassium 4.8 mmol/L (3.5-5.5)
[2022-11-29 09:42] LABS: Basophils # (A) 0 X 10*3/uL (0.00-0.10); Basophils % (A) 0 %; Eosinophils # (A) 0 X 10*3/uL (0.04-0.35); Eosinophils % (A) 0 %; HCT 34.8 % (39.6-50.0); HGB 11.1 g/dL (13.0-17.0); Immature Grans, Automated 0.6 %; Lymphocytes # (A) 0.31 X 10*3/uL (0.90-5.00); Lymphocytes % (A) 4.6 %; MCHC 31.9 g/dL (32.0-37.0); MCV 87.9 fL (80.0-97.0); Monocytes # (A) 0.27 X 10*3/uL (0.20-1.00); NRBC Per 100 WBC 0 /100 WBCS (0.0-0.0); Neutrophils # (A) 6.14 X 10*3/uL (1.80-7.70); Neutrophils % (A) 90.8 %; Platelet Count 195 X 10*3/uL (140-440); RBC 3.96 X 10*6/uL (4.40-5.60); RDW 15.6 % (11.5-14.5); WBC 6.76 X 10*3/uL (4.50-10.00)
[2022-11-29] MEDS: ALBUTEROL HFA INHALER INHALATION SCH ×4 (10:08→20:52)
[2022-11-29] MEDS: TIOTROPIUM 2.5 MCG INHALER INHALATION SCH (10:09)
[2022-11-29] MEDS: SYMBICORT 160-4.5 MCG INHALER INHALATION SCH ×2 (10:09→20:52)
[2022-11-29] MEDS: PREGABALIN 50 MG CAP PO SCH ×2 (10:29→15:14)
[2022-11-29 12:01] LABS: Glucose,Whole Blood 233 mg/dL (70-110)
--- NOTE | 2022-11-29 13:53 | P.PN ---
Subjective Progress Note Date: 11/29/22 HISTORY OF PRESENT ILLNESS: This is a 72-year-old male with a past medical history significant for chronic atrial fibrillation on eliquis, COPD with home oxygen use, hypertension, hyperlipidemia, diabetes, active tobacco use and dependence. 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 Patient presented to the hospital on 11/23 due to increasing shortness of breath and lower leg swelling, exertional dyspnea, orthopnea. He has been followed by pulmonary medicine and treated with nebulizer treatments and IV Solu-Medrol, oral diuretics. We have been asked to reevaluate the patient regarding heart failure prior to his discharge which is scheduled today. Patient was seen by Dr. SWAPNA Hines on 11/24 and found to have no evidence of clinical heart failure at that time and Dr. Hines recommended to dis continue aspirin, switch IV Lasix to oral 40 mg twice daily and continue all other cardiac medications including metoprolol. He at that time has signed off and followed on an as-needed basis. The patient states that last evening he started having more edema to the lower extremities and then subsequently they burst open and started draining. He states his breathing is stable today. No chest pain. 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 PHYSICAL EXAM: VITAL SIGNS: Reviewed. GENERAL: Well-developed in no acute distress. HEENT: Head is normocephalic. Pupils are equal, round. Sclerae anicteric. Mucous membranes of the mouth are moist. LUNGS: Respirations even and unlabored. Lungs essentially clear to auscultation bilaterally. HEART: Irregular rate and rhythm. S1 and S2 heard. Distant heart sounds. ABDOMEN: Soft. Nondistended. Nontender. EXTREMITIES: Normal range of motion. No clubbing or cyanosis. Peripheral pulses intact. +bilateral lower extremity edema with chronic discoloration noted. NEUROLOGIC: Awake and alert. Oriented x 3. ASSESSMENT: Acute on chronic systolic heart failure Acute on chronic hypoxic respiratory failure secondary to acute exacerbation of COPD Mild interstitial lung disease Chronic atrial fibrillation on eliquis Hypertension Hyperlipidemia Diabetes Active tobacco use and dependence PLAN: Continue patient's home cardiac medications Continue Lasix at 40 mg twice daily and add Aldactone 25 mg daily Follow-up with Dr. Hines in one week, repeat BMP as an outpatient Patient is cleared from cardiology for discharge home. Nurse practitioner note has been reviewed by physician. Signing provider agrees with the documented findings, assessment, and plan of care. Objective - Vital Signs Vital signs: Vital Signs Temp 98.2 F 11/29/22 07:20 Pulse 69 11/29/22 07:20 Resp 20 11/29/22 07:20 BP 153/77 11/29/22 07:20 Pulse Ox 97 11/29/22 12:34 FiO2 Intake & Output 11/28/22 11/29/22 11/29/22 18:59 06:59 18:59 Intake Total 960 540 Output Total 2300 1225 725 Balance -2300 -265 -185 Weight 80.4 kg Intake: Oral 960 540 Output: Urine 2300 1225 725 Other: Voiding Method Urinal Diaper - Labs CBC & Chem 7: 11/29/22 05:27 11/29/22 05:27 Labs: Abnormal Lab Results - Last 24 Hours (Table) 11/28/22 11/28/22 11/29/22 Range/Units 17:03 20:29 05:27 RBC 3.96 L (4.40-5.60) X 10*6/uL Hgb 11.1 L (13.0-17.0) g/dL Hct 34.8 L (39.6-50.0) % MCHC 31.9 L (32.0-37.0) g/dL RDW 15.6 H (11.5-14.5) % Lymphocytes # 0.31 L (0.90-5.00) X 10*3/uL Eosinophils # 0 L (0.04-0.35) X 10*3/uL Chloride (96-109) mmol/L Carbon Dioxide (20.0-27.5) mmol/L BUN/Creatinine Ratio (12.00-20.00) Ratio Glucose (70-110) mg/dL POC Glucose (mg/dL) 198 H 226 H (70-110) mg/dL Calcium (8.7-10.3) mg/dL 11/29/22 11/29/22 11/29/22 Range/Units 05:27 06:16 12:00 RBC (4.40-5.60) X 10*6/uL Hgb (13.0-17.0) g/dL Hct (39.6-50.0) % MCHC (32.0-37.0) g/dL RDW (11.5-14.5) % Lymphocytes # (0.90-5.00) X 10*3/uL Eosinophils # (0.04-0.35) X 10*3/uL Chloride 90 L (96-109) mmol/L Carbon Dioxide 34.8 H (20.0-27.5) mmol/L BUN/Creatinine Ratio 40.17 H (12.00-20.00) Ratio Glucose 183 H (70-110) mg/dL POC Glucose (mg/dL) 184 H 233 H (70-110) mg/dL Calcium 8.6 L (8.7-10.3) mg/dL
[2022-11-29] MEDS ORDERED: SPIRONOLACTONE 25 MG TAB PO SCH (14:30)
--- NOTE | 2022-11-29 14:49 | P.PN ---
Subjective Progress Note Date: 11/29/22 This is a 72-year-old white male with history of multiple medical problems including severe COPD, chronic hypoxic respiratory failure, chronic atrial fibrillation, hypertension, degenerative joint disease, continues to smoke and the patient had multiple admissions to different hospitals including [facility] and [facility] with COPD exacerbations. Patient does not follow up in our office on a regular bases mostly because of transportation issues according to him. He was recently at [facility] with acute exacerbation of COPD. Patient was seen in the ER at [facility] yesterday, and his symptoms were mostly symptoms of shortness of breath cough and wheezing. Worsening over the last few days since he was discharged from [facility]. Chest x-ray showed COPD, mild interstitial lung disease, no evidence of infiltrate, no evidence of pneumonia. Patient was admitted and this consult was initiated. He had a relatively normal CBC. Normal basic metabolic profile. ABG showed a pO2 of 87 pCO2 of 63 pH of 7.45 and this was on 32% FiO2. Patient is not a great historian, and does not seem to be very cooperative as far as history taking. The patient is seen today 11/25/2022 in follow-up on the selective care unit. He is awake and alert and cooperative this morning. He sitting up in a chair at the bedside. Denies any worsening shortness of breath, cough or congestion. 18 O2 saturations in the high 90s on 4 L/m per nasal cannula. Afebrile. Hemodynamically stable. White count 9.2. Hemoglobin 11.7. Sodium 132. Potassium 4.3. Bicarb 39. BUN 15. Creatinine 0.54. Glucose 170. Pro- calcitonin 0.08. He remains on Symbicort, albuterol and Spiriva, IV Solu- Medrol, theophylline. Continued on oral diuretics. Anticoagulated with Eliquis. The patient is seen today 11/26/2022 in follow-up on the selective care unit. He is sitting up in a chair at the bedside. Awake and alert in no acute distress. No worsening shortness of breath, cough or congestion. Maintaining good O2 saturations in the 90s on 4 L/m per nasal cannula. He's been afebrile. Hemodynamically stable. Wound palliative care specialist following regarding nonhealing ulcers of the left ankle and the chronic venous stasis with ulcerations of the l eft lower extremity. White count 8.2. Hemoglobin 11.3. Platelets 212. Sodium 130. Potassium 4.3. Bicarb 36. BUN 21. Creatinine 0.65. Glucose 171. He remains on Symbicort, albuterol and Spiriva, IV Solu-Medrol, theophylline. Continued on oral diuretics. Anticoagulated with Eliquis. The patient is seen today 11/27/2022 in follow-up on the selective care unit. Awake and alert in no acute distress. Sitting up in a chair at the bedside. No worsening shortness of breath, cough or congestion. Maintaining O2 saturations in the 90s on 4 L/m per nasal cannula. Less wheezing and bronchospasm. White count 6.8. Hemoglobin 11.3. Platelets 206. Sodium 132. Potassium 4.4. Bicarb 41. BUN 23. Creatinine 0.69. Glucose 168. He remains on Symbicort, albuterol and Spiriva, IV Solu-Medrol, theophylline. Continued on oral diuretics. Anticoagulated with Eliquis. Receiving Triad cream to the lower extremity ulcers. Patient is seen today 11/28/2022 in follow-up on the regular medical floor. He sitting up in a chair at bedside. Awake and alert in no acute distress. Denies any worsening shortness of breath, cough or congestion. Feeling back to his baseline. Maintaining good O2 saturations in the 90s on 2 L/m per nasal cannula. He is continued on Symbicort, theophylline, albuterol and Spiriva, IV Solu-Medrol. Anticoagulated with Eliquis. Remains on oral diuretics. The patient is seen today 11/29/2022 in follow-up on the regular medical floor. He is awake and alert in no acute distress. Sitting up in a chair at the bedside. Denies any worsening shortness of breath, cough or congestion. Maintaining good O2 saturations in the upper 90s on 3 L/m per nasal cannula. Afebrile. Hemodynamically stable. White count 6.7. Hemoglobin 11.1. Platelet count 195. Sodium 136. Potassium 4.8. Bicarb 35. BUN 24. Creatinine 0.6. Glucose 183. He is continued on Symbicort, theophylline, albuterol and Spiriva, IV Solu-Medrol. Anticoagulated with Eliquis. Remains on oral diuretics. Currently in a negative balance. Objective - Vital Signs Vital signs: Vital Signs Temp 98.2 F 11/29/22 07:20 Pulse 69 11/29/22 07:20 Resp 20 11/29/22 07:20 BP 153/77 11/29/22 07:20 Pulse Ox 97 11/29/22 12:34 FiO2 Intake & Output 11/28/22 11/29/22 11/29/22 18:59 06:59 18:59 Intake Total 960 540 Output Total 2300 1225 725 Balance -2300 -265 -185 Weight 80.4 kg Intake: Oral 960 540 Output: Urine 2300 1225 725 Other: Voiding Method Urinal Diaper - Exam GENERAL EXAM: Alert, 72-year-old male, on 3 L nasal cannula, comfortable in no apparent distress. HEAD: Normocephalic. EYES: Normal reaction of pupils, equal size. NOSE: Clear with pink turbinates. THROAT: No erythema or exudates. NECK: No masses, no JVD. CHEST: No chest wall deformity. LUNGS: Equal air entry with bilateral end expiratory wheeze, diminished. CVS: S1 and S2 normal with no audible murmur, regular rhythm. ABDOMEN: No hepatosplenomegaly, normal bowel sounds, no guarding or rigidity. SPINE: No scoliosis or deformity SKIN: No rashes CENTRAL NERVOUS SYSTEM: No focal deficits, tone is normal in all 4 extremities. EXTREMITIES: Open wound of the left ankle. Changes of chronic venous stasis in the lower extremities. There is 1+ peripheral edema. Peripheral pulses are intact. - Labs CBC & Chem 7: 11/29/22 05:27 11/29/22 05:27 Labs: Abnormal Lab Results - Last 24 Hours (Table) 11/28/22 11/28/22 11/29/22 Range/Units 17:03 20:29 05:27 RBC 3.96 L (4.40-5.60) X 10*6/uL Hgb 11.1 L (13.0-17.0) g/dL Hct 34.8 L (39.6-50.0) % MCHC 31.9 L (32.0-37.0) g/dL RDW 15.6 H (11.5-14.5) % Lymphocytes # 0.31 L (0.90-5.00) X 10*3/uL Eosinophils # 0 L (0.04-0.35) X 10*3/uL Chloride (96-109) mmol/L Carbon Dioxide (20.0-27.5) mmol/L BUN/Creatinine Ratio (12.00-20.00) Ratio Glucose (70-110) mg/dL POC Glucose (mg/dL) 198 H 226 H (70-110) mg/dL Calcium (8.7-10.3) mg/dL 11/29/22 11/29/22 11/29/22 Range/Units 05:27 06:16 12:00 RBC (4.40-5.60) X 10*6/uL Hgb (13.0-17.0) g/dL Hct (39.6-50.0) % MCHC (32.0-37.0) g/dL RDW (11.5-14.5) % Lymphocytes # (0.90-5.00) X 10*3/uL Eosinophils # (0.04-0.35) X 10*3/uL Chloride 90 L (96-109) mmol/L Carbon Dioxide 34.8 H (20.0-27.5) mmol/L BUN/Creatinine Ratio 40.17 H (12.00-20.00) Ratio Glucose 183 H (70-110) mg/dL POC Glucose (mg/dL) 184 H 233 H (70-110) mg/dL Calcium 8.6 L (8.7-10.3) mg/dL Assessment and Plan Assessment: Acute on chronic hypoxemic respiratory failure secondary to an acute exacerbation of chronic obstructive pulmonary disease Chronic diastolic congestive heart failure Mild interstitial lung disease Chronic tobacco dependence Open wounds of the lower extremities and changes of chronic venous stasis of lower extremity Hypertension Chronic atrial fibrillation, anticoagulated with Eliquis Diabetes mellitus Diabetic neuropathy Chronic pain syndrome History of noncompliance History of multiple hospitalizations at several local hospitals Plan: The patient was seen and evaluated Medications and labs reviewed Continue bronchodilators, Discontinue IV Solu-Medrol, prednisone taper Titrate down the FiO2 as tolerated Quite adamant about not going to subacute rehab Cleared for discharge from the pulmonary standpoint I have personally seen and examined the patient, performed the documentation and the assessment and plan as written. Number of minutes spent on the visit: 10.
[2022-11-29 15:19] VITALS: BP 123/72; PULSE 71; RESP 19; TEMP 98.1
[2022-11-29 17:02] LABS: Glucose,Whole Blood 342 mg/dL (70-110)
--- NOTE | 2022-11-29 22:20 | P.DS ---
Providers Date of admission: 11/23/22 20:33 Attending physician: Charissa Mcnair Consults: 11/23/22 20:31 Consult Physician Routine Consulting Provider: Lucille Daniels Consult Reason/Comments: dyspnea Do you want consulting provider notified?: Yes 11/29/22 10:19 Consult Physician Urgent Consulting Provider: Jesse Hines Consult Reason/Comments: chf, can not follow up as outpt Do you want consulting provider notified?: Yes 11/29/22 10:58 Consult Physician Urgent Consulting Provider: Paulo De Anda Consult Reason/Comments: b/l leg wounds Do you want consulting provider notified?: Yes Primary care physician: [facility] Course: Diagnoses: Worsening shortness of breath secondary to acute COPD exacerbation Acute on chronic hypoxic and hypercapnic respiratory failure on home oxygen at 2-3 L via nasal cannula Bilateral lower extremity significant edema. Unlikely CHF exacerbation. Chronic CHF with diastolic dysfunction Acute tracheobronchitis. No evidence of pneumonia. Chronic atrial fibrillation on anticoagulation with Eliquis Diabetes type 2 Diabetic peripheral neuropathy Chronic pain syndrome Ongoing lipid addiction Noncompliance with medications and follow-up. Hospital Course: Patient is a 72-year-old male with a known history of hypertension, hyperlipidemia, GERD, diabetes type 2 [id number], COPD on home oxygen at 3 L via nasal cannula, atrial fibrillation on anticoagulation with Eliquis, osteoarthritis, anxiety/depression currently everyday smoker presents to ER with complaints of shortness of breath and worsening leg swelling. Patient was then months with CHF and more with COPD exacerbation and he was treated with IV Solu- Medrol, his been evaluated by historic sites registrar and sales associate. Patient showed interval improvement but today he is fully awake and oriented, denies chest pain or dyspnea, sitting in chair most of the time. He has significant bilateral pitting leg edema. Also he developed bilateral lower extremity ulcers about 3-4 inches in diameter just above the ankle in both legs, there is no evidence of surrounding cellulitis of infection. No need for antibiotics. Ulcers are superficial, with care and ID team evaluated him for this purpose. I then that patient says she is back to baseline and he wants to go home. Patient was instructed to follow up outpatient with his PCP. Physician he says that his PCP Dr. Santiago comes to him and almost he doesn't follow up with any doctor,, risks and benefits are explained for him. Patient denies abdominal pain, vomiting or diarrhea, no urinary complaints. No headache dizziness weakness or numbness. Patient was cleared for discharge by all consultants pulmonology and cardiology. Problems and management plan were discussed with the patient and he verbalized understanding and acceptance Patient was found stable and can be discharged home in guarded prognosis however he needs follow-up as an outpatient. Patient was instructed to follow up with PCP Dr. Santiago within one week and patient agrees Patient was instructed to follow up with his sales associate Dr. Sanders in 1-2 weeks, historic sites registrar Dr. Hines 1-2 weeks [address] disease [address] De Anda in one to 2 weeks for his leg wounds. Prescription and understands and topical care for his once a provided for him breast. Upon discharge Physical exam Gen: patient is a AAOx3, no distress. CVS: S1-S2, RRR, no murmur Lungs: B/L CTA, no wheezing Abdomen: soft, no distention, no tenderness, positive bowel sounds --Extremity: Bilateral pitting leg edema, no induration. Bilateral distal leg superficial wounds with no cellulitis Time spent more than 35 minutes Plan - Discharge Summary Discharge Rx Participant: Yes New Discharge Prescriptions: New Spironolactone [Aldactone] 25 mg PO DAILY #30 tab Pregabalin [Lyrica] 50 mg PO TID #90 cap predniSONE 10 mg PO DIRECTED #40 tab Nicotine 21Mg/24Hr Patch [Habitrol] 1 patch TRANSDERM DAILY #3 patch Melatonin 6 mg PO HS PRN 10 Days #20 tab PRN Reason: Insomnia Tiotropium 2.5 Mcg/Puff [Spiriva Respimat 2.5 Mcg] 2 puff INHALATION RT-DAILY #1 each Continue Albuterol Nebulized [Ventolin Nebulized] 2.5 mg INHALATION RT-Q6H PRN PRN Reason: Shortness Of Breath Apixaban [Eliquis] 5 mg PO BID #60 tab HYDROcodone/APAP 7.5-325MG [[place] 7.5-325] 1 tab PO Q4H PRN PRN Reason: Pain Omeprazole 40 mg PO DAILY Escitalopram [Lexapro] 5 mg PO DAILY metFORMIN HCL [Glucophage] 500 mg PO BID tab predniSONE 5 mg PO DAILY predniSONE [Deltasone] 20 mg PO DIRECTED Furosemide [Lasix] 40 mg PO BID #60 tab Atorvastatin [Lipitor] 20 mg PO HS amLODIPine [Norvasc] 10 mg PO DAILY Ipratropium-Albuterol Nebulize [Duoneb 0.5 mg-3 mg/3 ml Soln] 3 ml INHALATION RT-Q6H PRN PRN Reason: Shortness Of Breath Or Wheezing Tamsulosin [Flomax] 0.4 mg PO DAILY Fluticasone Nasal [place] [Flonase Nasal [place]] 1 spray EA NOSTRIL Q12H PRN PRN Reason: nasal drainage Potassium Chloride [Klor-Con 10 ER] 10 meq PO DAILY Theophylline Anhydrous [Theophylline] 400 mg PO DAILY Albuterol Sulfate [Proair Hfa] 2 puff INHALATION RT-Q6H PRN PRN Reason: Shortness Of Breath Metoprolol Tartrate [Lopressor] 50 mg PO BID tab Discontinued hydrALAZINE HCL [Apresoline] 25 mg PO BID Gabapentin [Neurontin] 100 mg PO TID Discharge Medication List Albuterol Nebulized [Ventolin Nebulized] 2.5 mg INHALATION RT-Q6H PRN 05/08/20 [History] Apixaban [Eliquis] 5 mg PO BID #60 tab 07/08/20 [Rx] Atorvastatin [Lipitor] 20 mg PO HS 01/12/21 [History] amLODIPine [Norvasc] 10 mg PO DAILY 01/12/21 [History] Ipratropium-Albuterol Nebulize [Duoneb 0.5 mg-3 mg/3 ml Soln] 3 ml INHALATION RT-Q6H PRN 05/02/21 [History] Tamsulosin [Flomax] 0.4 mg PO DAILY 12/07/21 [History] Albuterol Sulfate [Proair Hfa] 2 puff INHALATION RT-Q6H PRN 02/18/22 [History] Fluticasone Nasal [place] [Flonase Nasal [place]] 1 spray EA NOSTRIL Q12H PRN 02/18/22 [History] HYDROcodone/APAP 7.5-325MG [[place] 7.5-325] 1 tab PO Q4H PRN 02/18/22 [History] Potassium Chloride [Klor-Con 10 ER] 10 meq PO DAILY 02/18/22 [History] Theophylline Anhydrous [Theophylline] 400 mg PO DAILY 02/18/22 [History] Escitalopram [Lexapro] 5 mg PO DAILY 08/29/22 [History] Omeprazole 40 mg PO DAILY 08/29/22 [History] Metoprolol Tartrate [Lopressor] 50 mg PO BID tab 09/07/22 [Rx] metFORMIN HCL [Glucophage] 500 mg PO BID tab 09/07/22 [Rx] predniSONE 5 mg PO DAILY 11/23/22 [History] predniSONE [Deltasone] 20 mg PO DIRECTED 11/23/22 [History] Furosemide [Lasix] 40 mg PO BID #60 tab 11/29/22 [Rx] Melatonin 6 mg PO HS PRN 10 Days #20 tab 11/29/22 [Rx] Nicotine 21Mg/24Hr Patch [Habitrol] 1 patch TRANSDERM DAILY #3 patch 11/29/22 [Rx] Pregabalin [Lyrica] 50 mg PO TID #90 cap 11/29/22 [Rx] Spironolactone [Aldactone] 25 mg PO DAILY #30 tab 11/29/22 [Rx] Tiotropium 2.5 Mcg/Puff [Spiriva Respimat 2.5 Mcg] 2 puff INHALATION RT-DAILY #1 each 11/29/22 [Rx] predniSONE 10 mg PO DIRECTED #40 tab 11/29/22 [Rx] Follow up Appointment(s)/Referral(s): Lucille Daniels MD [STAFF PHYSICIAN] - 12/23/22 9:45 am Jesse Hines MD [STAFF PHYSICIAN] - 1 Week (Office will call you with appointment.) Cosmo Quick MD [REFERRING] - 1-2 days (Please call office to make your appointment) [facility], [NON-STAFF] - As Needed Paulo De Anda MD [STAFF PHYSICIAN] - 12/06/22 2:30 pm (wound doctor ) Ambulatory/Diagnostic Orders: Basic Metabolic Panel [LAB.AMB] Location: None Selected Activity/Diet/Wound Care/Special Instructions: heart healthy diet , low carbohydrate 1600 k bc per day opticell silver to bilateral legs and wrapped in barb wrap activity is restricted till you see your doctor Discharge Disposition: HOME WITH HOME HEALTH SERVICES
[2022-11-30] MEDS ORDERED: predniSONE 20 MG TAB PO SCH (09:00)
== END 2022-11-29 21:36 | disposition home health service (06) | DRG 190 ==
LOC: EC 16:31 → 3SCARD 20:33 → 4SSUR 11-27 15:09
PROVIDERS: ADMIT Internal Medicine; ATTEND Internal Medicine
DX: J44.1 Chronic obstructive pulmonary disease with (acute) exacerbation (principal); J96.21 Acute and chronic respiratory failure with hypoxia; J96.22 Acute and chronic respiratory failure with hypercapnia; I50.32 Chronic diastolic (congestive) heart failure; I48.20 Chronic atrial fibrillation, unspecified; I87.332 Chronic venous hypertension (idiopathic) with ulcer and inflammation of left lower extremity; J84.9 Interstitial pulmonary disease, unspecified; L97.321 Non-pressure chronic ulcer of left ankle limited to breakdown of skin; L97.919 Non-pressure chronic ulcer of unspecified part of right lower leg with unspecified severity; J44.0 Chronic obstructive pulmonary disease with (acute) lower respiratory infection; E11.42 Type 2 diabetes mellitus with diabetic polyneuropathy; E11.622 Type 2 diabetes mellitus with other skin ulcer; E78.5 Hyperlipidemia, unspecified; Z99.81 Dependence on supplemental oxygen; F17.210 Nicotine dependence, cigarettes, uncomplicated; F32.A Depression, unspecified; F41.9 Anxiety disorder, unspecified; G89.4 Chronic pain syndrome; I11.0 Hypertensive heart disease with heart failure; F10.11 Alcohol abuse, in remission; J20.9 Acute bronchitis, unspecified; Z91.14 Patient's other noncompliance with medication regimen; M19.90 Unspecified osteoarthritis, unspecified site; K21.9 Gastro-esophageal reflux disease without esophagitis; I87.8 Other specified disorders of veins; Z63.72 Alcoholism and drug addiction in family; Z79.899 Other long term (current) drug therapy; Z81.1 Family history of alcohol abuse and dependence; Z82.49 Family history of ischemic heart disease and other diseases of the circulatory system; Z79.84 Long term (current) use of oral hypoglycemic drugs; Z79.4 Long term (current) use of insulin; Z91.199 Patient's noncompliance with other medical treatment and regimen due to unspecified reason; Z82.5 Family history of asthma and other chronic lower respiratory diseases; Z79.01 Long term (current) use of anticoagulants; Z28.21 Immunization not carried out because of patient refusal; Z91.81 History of falling; Z87.01 Personal history of pneumonia (recurrent); Z88.1 Allergy status to other antibiotic agents; Z88.0 Allergy status to penicillin; Z88.8 Allergy status to other drugs, medicaments and biological substances
CPT/HCPCS: 36415; 36600; 71046; 80048; 80053; 82805; 83605; 83735; 83880; 84145; 84484; 85025; 85610; 85730; 93005; 94640; 94760; 96374; 96375; 99285

== ENCOUNTER 2022-12-31 10:59 | Inpatient (IN) | payer MEDICARE, OTHER ==
[2022-12-31] MEDS ORDERED: FUROSEMIDE 10 MG/ML 10 ML VIAL IV STA (11:43)
[2022-12-31 11:53] LABS: Anisocytosis Slight; Basophils % (A) 0 %; Eosinophils # (A) 0.2 k/uL (0-0.7); Eosinophils % (A) 1 %; HCT 33.2 % (39.0-53.0); HGB 10.8 gm/dL (13.0-17.5); Lymphocytes # (A) 1.4 k/uL (1.0-4.8); Lymphocytes % (A) 13 %; MCH 29.4 pg (25.0-35.0); MCHC 32.5 g/dL (31.0-37.0); MCV 90.3 fL (80.0-100.0); Mean Platelet Volume 7.1; Monocytes # (A) 0.7 k/uL (0-1.0); Monocytes % (A) 7 %; Neutrophils % (A) 76 %; Platelet Count 266 k/uL (150-450); Poikilocytosis Slight; RBC 3.67 m/uL (4.30-5.90); RDW 18.7 % (11.5-15.5); WBC 10.5 k/uL (3.8-10.6)
--- NOTE | 2022-12-31 12:04 | XR ---
EXAMINATION TYPE: XR chest 2V DATE OF EXAM: 12/31/2022 COMPARISON: 11/23/2022 HISTORY: Lower extremity swelling TECHNIQUE: Frontal and lateral views of the chest are obtained. FINDINGS: The heart size is at the upper limits of normal to borderline enlarged. The cardiac mediast inal silhouette is within normal limits for there is distention of the pulmonary vasculature with inc reased interstitial opacities bilaterally. There is slight elevation of the left hemidiaphragm which is not significantly changed when compared to previous examination. There are a few linear opacity at the left lung base, which are not significantly changed when compared to previous examination and li tani relate to minimal subsegmental atelectasis. There is no focal consolidation, significant pleural effusion, or pneumothorax. IMPRESSION: Findings suggestive of mild pulmonary edema, as described above.
[2022-12-31 12:06] LABS: INR 0.9 (<1.2); Partial Thromboplastin Time 22.2 sec (22.0-30.0); Prothrombin Time 9.4 sec (9.0-12.0)
[2022-12-31 12:26] LABS: ALT 19 U/L (4-49); AST 17 U/L (17-59); African American GFR (CKD) >90 (>60 ml/min/1.73 sqM); Albumin 3.1 g/dL (3.5-5.0); Alkaline Phosphatase 67 U/L (38-126); Anion Gap 4 mmol/L; Blood Urea Nitrogen 12 mg/dL (9-20); Calcium 8.7 mg/dL (8.4-10.2); Carbon Dioxide 33 mmol/L (22-30); Chloride 98 mmol/L (98-107); Glucose 119 mg/dL (74-99); Non-African American GFR(CKD) >90 (>60 ml/min/1.73 sqM); Potassium 4.3 mmol/L (3.5-5.1); Sodium 135 mmol/L (137-145); Total Bilirubin 0.5 mg/dL (0.2-1.3); Total Protein 5.4 g/dL (6.3-8.2)
--- NOTE | 2022-12-31 12:58 | ED ---
General Adult HPI - General Chief complaint: Recheck/Abnormal Lab/Rx Stated complaint: failure to thrive Time Seen by Provider: 12/31/22 11:10 Source: patient, RN notes reviewed, old records reviewed Mode of arrival: ambulatory Limitations: no limitations - History of Present Illness Initial comments: This is a 72-year-old male presents emergency room complaining that he is unable take care of himself because his legs are so swollen he can't even get around anymore. Patient states the swelling is drastically increased over the last week or 2. Patient denies any shortness of breath or difficulty breathing. Patient denies any chest pain or palpitations. Patient states she's also noticed an increase in redness of the legs as well. Patient denies any recent injury or trauma. Patient denies lightheadedness or dizziness. Patient denies any other symptoms. - Related Data Home Medications Medication Instructions Recorded Confirmed Albuterol Nebulized [Ventolin 2.5 mg INHALATION RT-Q6H PRN 05/08/20 12/31/22 Nebulized] amLODIPine [Norvasc] 10 mg PO DAILY 01/12/21 12/31/22 Ipratropium-Albuterol Nebulize 3 ml INHALATION RT-Q6H PRN 05/02/21 12/31/22 [Duoneb 0.5 mg-3 mg/3 ml Soln] Tamsulosin [Flomax] 0.4 mg PO DAILY 12/07/21 12/31/22 Albuterol Sulfate [Proair Hfa] 2 puff INHALATION RT-Q6H PRN 02/18/22 12/31/22 Fluticasone Nasal [place] [Flonase 1 spray EA NOSTRIL Q12H PRN 02/18/22 12/31/22 Nasal [place]] HYDROcodone/APAP 7.5-325MG [[place] 1 tab PO Q4H PRN 02/18/22 12/31/22 7.5-325] Potassium Chloride [Klor-Con 10 ER] 10 meq PO DAILY 02/18/22 12/31/22 Theophylline Anhydrous 400 mg PO DAILY 02/18/22 12/31/22 [Theophylline] Escitalopram [Lexapro] 5 mg PO DAILY 08/29/22 12/31/22 Omeprazole 40 mg PO DAILY 08/29/22 12/31/22 predniSONE 5 mg PO DAILY 11/23/22 12/31/22 Atorvastatin Calcium [Lipitor] 40 mg PO HS 12/31/22 12/31/22 Clopidogrel [Plavix] 75 mg PO DAILY 12/31/22 12/31/22 DULoxetine HCL [Cymbalta] 30 mg PO DAILY 12/31/22 12/31/22 Fluticasone/Vilanterol [Breo 1 puff INHALATION RT-DAILY 12/31/22 12/31/22 Ellipta 100-25 Mcg Inhaler] Pregabalin [Lyrica] 75 mg PO BID 12/31/22 12/31/22 Umeclidinium [place] [Incruse 1 puff INHALATION RT-DAILY 12/31/22 12/31/22 Ellipta] Previous Rx's Medication Instructions Recorded Apixaban [Eliquis] 5 mg PO BID #60 tab 07/08/20 Metoprolol Tartrate [Lopressor] 50 mg PO BID tab 09/07/22 metFORMIN HCL [Glucophage] 500 mg PO BID tab 09/07/22 Furosemide [Lasix] 40 mg PO BID #60 tab 11/29/22 Melatonin 6 mg PO HS PRN 10 Days #20 tab 11/29/22 Nicotine 21Mg/24Hr Patch [Habitrol] 1 patch TRANSDERM DAILY #3 patch 11/29/22 Spironolactone [Aldactone] 25 mg PO DAILY #30 tab 11/29/22 Allergies Allergy/AdvReac Type Severity Reaction Status Date / Time ANJU Inhibitors Allergy Unknown - Verified 12/31/22 12:30 per [facility] doxycycline Allergy Anaphylaxis Verified 12/31/22 12:30 Penicillins Allergy Anaphylaxis, Verified 12/31/22 12:30 Seizure Review of Systems ROS Statement: Those systems with pertinent positive or pertinent negative responses have been documented in the HPI. ROS Other: All systems not noted in ROS Statement are negative. Past Medical History Past Medical History: Atrial Fibrillation, Asthma, COPD, Diabetes Mellitus, GERD/Reflux, Hyperlipidemia, Hypertension, Osteoarthritis (OA), Pneumonia Additional Past Medical History / Comment(s): Afib RVR, home oxygen prn, bronchitis, pt states he is on metformin to prevent becoming diabetic, neuro shreyas bilateral feet/L hand, chronic pain back,/bilateral hips/knees/elbows and shoulders, L heel pain, FALLS, cataracts. 11/23/22 ex-spouse phylicia Waterman reports history is accurate to her knowledge. current adominal hernia noted History of Any Multi-Drug Resistant Organisms: None Reported Past Surgical History: Appendectomy Additional Past Surgical History / Comment(s): Colonoscopy. 11/23/22 ex-spouse phylicia Waterman reports history is accurate to her knowledge. Past Anesthesia/Blood Transfusion Reactions: No Reported Reaction Past Psychological History: Unable to Obtain, Anxiety, Depression Smoking Status: Current every day smoker Past Alcohol Use History: None Reported Past Drug Use History: None Reported - Past Family History Father Family Medical History: Congestive Heart Failure (CHF), COPD Additional Family Medical History / Comment(s): Father was an alcoholic but was able to quit drinking Mother Family Medical History: Congestive Heart Failure (CHF), COPD Additional Family Medical History / Comment(s): Mother was an alcoholic. Daughter(s) Additional Family Medical History / Comment(s): Liver cancer General Exam - General Exam Comments Initial Comments: GENERAL: Patient is well-developed and well-nourished. Patient is nontoxic and well-hydrated and is in mild distress. ENT: Neck is soft and supple. No significant lymphadenopathy is noted. Oropharynx is clear. Moist mucous membranes. Neck has full range of motion without eliciting any pain. EYES: The sclera were anicteric and conjunctiva were pink and moist. Extraocular movements were intact and pupils were equal round and reactive to light. Eyelids were unremarkable. PULMONARY: Unlabored respirations. Good breath sounds bilaterally. No audible rales rhonchi or wheezing was noted. CARDIOVASCULAR: There is a regular rate and rhythm without any murmurs gallops or rubs. ABDOMEN: Soft and nontender with normal bowel sounds. SKIN: Skin is clear with no lesions or rashes and otherwise unremarkable. NEUROLOGIC: Patient is alert and oriented x3. Cranial nerves II through XII are grossly intact. Motor and sensory are also intact. Normal speech, volume and content. Symmetrical smile. MUSCULOSKELETAL: Normal extremities with adequate strength and full range of motion. Patient has 3+ edema bilaterally patient has chronic erythema to both legs there is one toe on the right foot that is a little more reddened and the rest and there is a small abrasion on the toe.. LYMPHATICS: No significant lymphadenopathy is noted PSYCHIATRIC: Normal psychiatric evaluation. Limitations: no limitations Course Vital Signs 04/21/23 11:00 Temperature 98.1 F Pulse Rate 70 Respiratory 22 Rate Blood Pressure 107/72 O2 Sat by Pulse 97 Oximetry Medical Decision Making - Medical Decision Making Patient's EKG was interpreted by myself shows atrial fibrillation at 69 bpm QRS is 170 Q-T intervals 411 QTC is 422. Patient's EKG shows no ST segment elevation or depression. Was pt. sent in by a medical professional or institution (, [facility], NODE JS DEVELOPER, urgent care, hospital, or longterm...) When possible be specific @ -Patient's home health nurse sent him in the hospital Did you speak to anyone other than the patient for history (EMS, parent, family, police, friend...)? What history was obtained from this source @ -No Did you review nursing and triage notes (agree or disagree)? Why? @ -I reviewed and agree with nursing and triage notes Were old charts reviewed (outside hosp., previous admission, EMS record, old EKG, old radiological studies, urgent care reports/EKG's, longterm records)? Report findings @ -I reviewed prior lab work in prior charts on this patient Differential Diagnosis (chest pain, altered mental status, abdominal pain women, abdominal pain men, vaginal bleeding, weakness, fever, dyspnea, syncope, headache, dizziness, GI bleed, back pain, seizure, CVA, palpatations, mental health, musculoskeletal)? @ -Pedal edema, cellulitis, chronic cellulitis this is not an all inclusive list EKG interpreted by me (3pts min.). @ -As above X-rays interpreted by me (1pt min.). @ -Chest x-ray is interpreted by myself. X-ray shows mild pulmonary edema CT interpreted by me (1pt min.). @ -None done U/S interpreted by me (1pt. min.). @ -None done What testing was considered but not performed or refused? (CT, X-rays, U/S, labs)? Why? @ -None What meds were considered but not given or refused? Why? @ -None Did you discuss the management of the patient with other professionals (professionals i.e. [facility] George, NODE JS DEVELOPER, lab, RT, psych nurse, social media editor, sales incentive analyst, teacher, wildlife conservation officer, manager case)? Give summary @ -I spoke with Dr. mead he agreed to admit the patient he admitted the patient and wrote admitting orders she also saw the patient in the emergency department. Was smoking cessation discussed for >3mins.? @ -No Was critical care preformed (if so, how long)? @ -No Were there social determinants of health that impacted care today? How? (Homelessness, low income, unemployed, alcoholism, drug addiction, transportation, low edu. Level, literacy, decrease access to med. care, correction, rehab)? @ -No Was there de-escalation of care discussed even if they declined (Discuss DNR or withdrawal of care, Hospice)? DNR status @ -No What co-morbidities impacted this encounter? (DM, HTN, Smoking, COPD, CAD, Cancer, CVA, ARF, Chemo, Hep., AIDS, mental health diagnosis, sleep apnea, morbid obesity)? @ -None Was patient admitted / discharged? Hospital course, mention meds given and route, prescriptions, significant lab abnormalities, going to OR and other pertinent info. @ -Patient was given Lasix on arrival because of the significant swelling of the legs. Patient's chest x-ray showed mild pulmonary edema and Lasix will benefit as well. I spoke with Dr. Astudillo was in agreement to admit the patient admitted the patient wrote admitting orders. Undiagnosed new problem with uncertain prognosis? @ -No Drug Therapy requiring intensive monitoring for toxicity (Heparin, Nitro, Insulin, Cardizem)? @ -No Were any procedures done? @ -No Diagnosis/symptom? @ -Pedal edema Acute, or Chronic, or Acute on Chronic? @ -Acute on chronic Uncomplicated (without systemic symptoms) or Complicated (systemic symptoms)? @ -Complicated Side effects of treatment? @ -No Exacerbation, Progression, or Severe Exacerbation? @ -Severe exacerbation Poses a threat to life or bodily function? How? (Chest pain, USA, VT, pneumonia, PE, COPD, DKA, ARF, appy, cholecystitis, CVA, Diverticulitis, Homicidal, Suicidal, threat to staff... and all critical care pts) @ -No Diagnosis/symptom? @ -Pulmonary edema Acute, or Chronic, or Acute on Chronic? @ -Acute on chronic Uncomplicated (without systemic symptoms) or Complicated (systemic symptoms)? @ -Complicated Side effects of treatment? @ -none Exacerbation, Progression, or Severe Exacerbation] @ -no Poses a threat to life or bodily function? @ -Yes this could lead to hypoxia and organ dysfunction - Lab Data Result diagrams: 12/31/22 11:33 12/31/22 11:33 Lab Results 12/31/22 12/31/22 12/31/22 Range/Units 11:33 11:33 11:33 WBC 10.5 (3.8-10.6) k/uL RBC 3.67 L (4.30-5.90) m/uL Hgb 10.8 L (13.0-17.5) gm/dL Hct 33.2 L (39.0-53.0) % MCV 90.3 (80.0-100.0) fL MCH 29.4 (25.0-35.0) pg MCHC 32.5 (31.0-37.0) g/dL RDW 18.7 H (11.5-15.5) % Plt Count 266 (150-450) k/uL MPV 7.1 Neutrophils % 76 % Lymphocytes % 13 % Monocytes % 7 % Eosinophils % 1 % Basophils % 0 % Neutrophils # 8.0 H (1.3-7.7) k/uL Lymphocytes # 1.4 (1.0-4.8) k/uL Monocytes # 0.7 (0-1.0) k/uL Eosinophils # 0.2 (0-0.7) k/uL Basophils # 0.0 (0-0.2) k/uL Poikilocytosis Slight Anisocytosis Slight PT 9.4 (9.0-12.0) sec INR 0.9 (<1.2) APTT 22.2 (22.0-30.0) sec Sodium 135 L (137-145) mmol/L Potassium 4.3 (3.5-5.1) mmol/L Chloride 98 (98-107) mmol/L Carbon Dioxide 33 H (22-30) mmol/L Anion Gap 4 mmol/L BUN 12 (9-20) mg/dL Creatinine 0.61 L (0.66-1.25) mg/dL Est GFR (CKD-EPI)AfAm >90 (>60 ml/min/1.73 sqM) Est GFR (CKD-EPI)NonAf >90 (>60 ml/min/1.73 sqM) Glucose 119 H (74-99) mg/dL Calcium 8.7 (8.4-10.2) mg/dL Total Bilirubin 0.5 (0.2-1.3) mg/dL AST 17 (17-59) U/L ALT 19 (4-49) U/L Alkaline Phosphatase 67 (38-126) U/L Troponin I (0.000-0.034) ng/mL Total Protein 5.4 L (6.3-8.2) g/dL Albumin 3.1 L (3.5-5.0) g/dL 12/31/22 Range/Units 11:33 WBC (3.8-10.6) k/uL RBC (4.30-5.90) m/uL Hgb (13.0-17.5) gm/dL Hct (39.0-53.0) % MCV (80.0-100.0) fL MCH (25.0-35.0) pg MCHC (31.0-37.0) g/dL RDW (11.5-15.5) % Plt Count (150-450) k/uL MPV Neutrophils % % Lymphocytes % % Monocytes % % Eosinophils % % Basophils % % Neutrophils # (1.3-7.7) k/uL Lymphocytes # (1.0-4.8) k/uL Monocytes # (0-1.0) k/uL Eosinophils # (0-0.7) k/uL Basophils # (0-0.2) k/uL Poikilocytosis Anisocytosis PT (9.0-12.0) sec INR (<1.2) APTT (22.0-30.0) sec Sodium (137-145) mmol/L Potassium (3.5-5.1) mmol/L Chloride (98-107) mmol/L Carbon Dioxide (22-30) mmol/L Anion Gap mmol/L BUN (9-20) mg/dL Creatinine (0.66-1.25) mg/dL Est GFR (CKD-EPI)AfAm (>60 ml/min/1.73 sqM) Est GFR (CKD-EPI)NonAf (>60 ml/min/1.73 sqM) Glucose (74-99) mg/dL Calcium (8.4-10.2) mg/dL Total Bilirubin (0.2-1.3) mg/dL AST (17-59) U/L ALT (4-49) U/L Alkaline Phosphatase (38-126) U/L Troponin I <0.012 (0.000-0.034) ng/mL Total Protein (6.3-8.2) g/dL Albumin (3.5-5.0) g/dL Disposition Clinical Impression: Pedal edema, Pulmonary edema, acute Disposition: ADMITTED IP TO THIS HOSP Referrals: Elver Jackson MD [Primary Care Provider] - 1-2 days Time of Disposition: 13:38
[2022-12-31] MEDS ORDERED: FLUTICASONE 50MCG/SPRAY NASAL 16GM EA NOSTRIL PRN (13:19)
--- NOTE | 2022-12-31 13:30 | P.HPIM ---
History of Present Illness This is a pleasant 71 years old male with multiple medical problems including COPD, diabetes mellitus, hypertension, hyperlipidemia, osteoarthritis, GERD, diabetic neuropathy, chronic back pain, joint disease and falls He was recently in the hospital for COPD exacerbation and bilateral lower extremity edema and chronic CHF Patient presents because of bilateral patellar leg edema swelling and redness and erythema slowly get worse. He denies dyspnea. No chest pain. No change in urine or bowel habits Denies smoking alcohol or illicit drugs He is on 3 L oxygen at home. He is also on a prednisone 5 mg daily placed by his PCP Dr. Alfredo Vitals are stable Labs showing mild anemia with hemoglobin 10.8, rest of CBC, BMP and liver enzymes are unremarkable. Troponin is negative. Chest x-ray: Findings are consistent with mild pulmonary congestion EKG showing atrial fibrillation with controlled rate at 65 with no significant S T-T changes and QTC 422. Review of Systems Review of systems CONSTITUTIONAL: No fever, no malaise, no fatigue. HEENT: No recent visual problems or hearing problems. Denied any sore throat. CARDIOVASCULAR: No orthopnea, PND, no palpitations, no syncope. PULMONARY: No shortness of breath, no cough, no hemoptysis. GASTROINTESTINAL: No diarrhea, no nausea, no vomiting, no abdominal pain. Normoactive bowel sounds. NEUROLOGICAL: No headaches, no weakness, no numbness. HEMATOLOGICAL: Denies any bleeding or petechiae. GENITOURINARY: Denies any burning micturition, frequency, or urgency. MUSCULOSKELETAL/RHEUMATOLOGICAL: Denies any joint pain, swelling, or any muscle pain. ENDOCRINE: Denies any polyuria or polydipsia. Past Medical History Past Medical History: Atrial Fibrillation, Asthma, COPD, Diabetes Mellitus, GERD/Reflux, Hyperlipidemia, Hypertension, Osteoarthritis (OA), Pneumonia Additional Past Medical History / Comment(s): Afib RVR, home oxygen prn, bronchi tis, pt states he is on metformin to prevent becoming diabetic, neuropathy bilateral feet/L hand, chronic pain back,/bilateral hips/knees/elbows and shoulders, L heel pain, FALLS, cataracts. 11/23/22 ex-spouse phylicia Waterman reports history is accurate to her knowledge. current adominal hernia noted History of Any Multi-Drug Resistant Organisms: None Reported Past Surgical History: Appendectomy Additional Past Surgical History / Comment(s): Colonoscopy. 11/23/22 ex-spouse phylicia Waterman reports history is accurate to her knowledge. Past Anesthesia/Blood Transfusion Reactions: No Reported Reaction Past Psychological History: Unable to Obtain, Anxiety, Depression Smoking Status: Current every day smoker Past Alcohol Use History: None Reported Past Drug Use History: None Reported - Past Family History Father Family Medical History: Congestive Heart Failure (CHF), COPD Additional Family Medical History / Comment(s): Father was an alcoholic but was able to quit drinking Mother Family Medical History: Congestive Heart Failure (CHF), COPD Additional Family Medical History / Comment(s): Mother was an alcoholic. Daughter(s) Additional Family Medical History / Comment(s): Liver cancer Medications and Allergies Home Medications Medication Instructions Recorded Confirmed Type Albuterol Nebulized [Ventolin 2.5 mg INHALATION RT-Q6H PRN 05/08/20 12/31/22 History Nebulized] Apixaban [Eliquis] 5 mg PO BID #60 tab 07/08/20 12/31/22 Rx amLODIPine [Norvasc] 10 mg PO DAILY 01/12/21 12/31/22 History Ipratropium-Albuterol Nebulize 3 ml INHALATION RT-Q6H PRN 05/02/21 12/31/22 History [Duoneb 0.5 mg-3 mg/3 ml Soln] Tamsulosin [Flomax] 0.4 mg PO DAILY 12/07/21 12/31/22 History Albuterol Sulfate [Proair Hfa] 2 puff INHALATION RT-Q6H PRN 02/18/22 12/31/22 History Fluticasone Nasal [place] [Flonase 1 spray EA NOSTRIL Q12H PRN 02/18/22 12/31/22 History Nasal [place]] HYDROcodone/APAP 7.5-325MG [[place] 1 tab PO Q4H PRN 02/18/22 12/31/22 History 7.5-325] Potassium Chloride [Klor-Con 10 ER] 10 meq PO DAILY 02/18/22 12/31/22 History Theophylline Anhydrous 400 mg PO DAILY 02/18/22 12/31/22 History [Theophylline] Escitalopram [Lexapro] 5 mg PO DAILY 08/29/22 12/31/22 History Omeprazole 40 mg PO DAILY 08/29/22 12/31/22 History Metoprolol Tartrate [Lopressor] 50 mg PO BID tab 09/07/22 12/31/22 Rx metFORMIN HCL [Glucophage] 500 mg PO BID tab 09/07/22 12/31/22 Rx predniSONE 5 mg PO DAILY 11/23/22 12/31/22 History Furosemide [Lasix] 40 mg PO BID #60 tab 11/29/22 12/31/22 Rx Melatonin 6 mg PO HS PRN 10 Days #20 tab 11/29/22 12/31/22 Rx Nicotine 21Mg/24Hr Patch [Habitrol] 1 patch TRANSDERM DAILY #3 patch 11/29/22 12/31/22 Rx Spironolactone [Aldactone] 25 mg PO DAILY #30 tab 11/29/22 12/31/22 Rx Atorvastatin Calcium [Lipitor] 40 mg PO HS 12/31/22 12/31/22 History Clopidogrel [Plavix] 75 mg PO DAILY 12/31/22 12/31/22 History DULoxetine HCL [Cymbalta] 30 mg PO DAILY 12/31/22 12/31/22 History Fluticasone/Vilanterol [Breo 1 puff INHALATION RT-DAILY 12/31/22 12/31/22 History Ellipta 100-25 Mcg Inhaler] Pregabalin [Lyrica] 75 mg PO BID 12/31/22 12/31/22 History Umeclidinium [place] [Incruse 1 puff INHALATION RT-DAILY 12/31/22 12/31/22 History Ellipta] Allergies Allergy/AdvReac Type Severity Reaction Status Date / Time ANJU Inhibitors Allergy Unknown - Verified 12/31/22 12:30 per [facility] doxycycline Allergy Anaphylaxis Verified 12/31/22 12:30 Penicillins Allergy Anaphylaxis, Verified 12/31/22 12:30 Seizure Physical Exam Vitals: Vital Signs Temp Pulse Resp BP Pulse Ox 12/31/22 11:00 98.1 F 70 22 107/72 97 Intake and Output 12/30/22 12/31/22 12/31/22 22:59 06:59 14:59 Other: Weight 128.82 kg GENERAL: The patient is alert and oriented x3, not in any acute distress. Well developed, well nourished. HEENT: Pupils are round and equally reacting to light. EOMI. No scleral icterus. No conjunctival pallor. Normocephalic, atraumatic. No pharyngeal erythema. No thyromegaly. CARDIOVASCULAR: S1 and S2 present. No murmurs, rubs, or gallops. PULMONARY: Chest is clear to auscultation, no wheezing or crackles. ABDOMEN: Soft, nontender, nondistended, normoactive bowel sounds. No palpable organomegaly. MUSCULOSKELETAL: No joint swelling or deformity. -EXTREMITIES: No cyanosis, clubbing, bilateral pitting like and pedal edema. Red and swollen but nontender not warm, but nails are overgrown NEUROLOGICAL: Gross neurological examination did not reveal any focal deficits. SKIN: No rashes. no petechiae. Results CBC & Chem 7: 12/31/22 11:33 12/31/22 11:33 Labs: Abnormal Lab Results - Last 24 Hours (Table) 12/31/22 12/31/22 Range/Units 11:33 11:33 RBC 3.67 L (4.30-5.90) m/uL Hgb 10.8 L (13.0-17.5) gm/dL Hct 33.2 L (39.0-53.0) % RDW 18.7 H (11.5-15.5) % Neutrophils # 8.0 H (1.3-7.7) k/uL Sodium 135 L (137-145) mmol/L Carbon Dioxide 33 H (22-30) mmol/L Creatinine 0.61 L (0.66-1.25) mg/dL Glucose 119 H (74-99) mg/dL Total Protein 5.4 L (6.3-8.2) g/dL Albumin 3.1 L (3.5-5.0) g/dL Assessment and Plan Assessment: Acute on chronic diastolic CHF Bilateral pitting leg edema, acute on chronic chronic atrial fibrillation on Eliquis and the rate is controlled Chronic hypoxic respiratory failure with related to her oxygen via nasal cannula Diabetes mellitus Hypertension Hyperlipidemia History of osteoarthritis History of GERD Diabetic neuropathy of feet and hands Chronic back pain Polyarthralgia History of falls History of anxiety and depression, not in activation Obese with BMI 38.5 Plan: Start the patient on IV Lasix Check lower extremity ultrasound Check proBNP Discontinue prednisone which might contribute to his leg edema Discontinue Norvasc as it might contribute to the like edema. An can be started on ANJU inhibitor as his ALLERGIC to it Labs and medication were reviewed.. Continue same treatment. Continue with symptomatic treatment. Resume home medication. Monitor labs and vitals. DVT and GI prophylaxis. Further recommendations as per clinical course of the patient DVT prophylaxis: Eliquis GI Prophylaxis: Pepcid PT/OT: Pending Prognosis is guarded
[2022-12-31 16:24] LABS: Glucose,Whole Blood 156 mg/dL (70-110)
[2022-12-31] MEDS: metFORMIN 500 MG TAB PO SCH (16:40)
[2022-12-31] MEDS: FUROSEMIDE 80 MG TAB PO SCH (16:42)
--- NOTE | 2022-12-31 17:46 | P.GSHP ---
History of Present Illness H&P Date: 12/31/22 Chief Complaint: Venous insufficiency bilateral This is a pleasant 71 years old male with multiple medical problems including COPD, diabetes mellitus, hypertension, hyperlipidemia, osteoarthritis, GERD, diabetic neuropathy, chronic back pain, joint disease and falls He was recently in the hospital for COPD exacerbation and bilateral lower extremity edema and chronic CHF Patient presents because of bilateral patellar leg edema swelling and redness and erythema slowly get worse. He denies dyspnea. No chest pain. No change in urine or bowel habits Denies smoking alcohol or illicit drugs He is on 3 L oxygen at home. He is also on a prednisone 5 mg daily placed by his PCP Dr. Alfredo Podiatry is being consulted for edema bilateral lower extremities Past Medical History Past Medical History: Atrial Fibrillation, Asthma, COPD, Diabetes Mellitus, GERD/Reflux, Hyperlipidemia, Hypertension, Osteoarthritis (OA), Pneumonia Additional Past Medical History / Comment(s): Afib RVR, home oxygen prn, bronchitis, pt states he is on metformin to prevent becoming diabetic, neuropathy bilateral feet/L hand, chronic pain back,/bilateral hips/knees/elbows and shoulders, L heel pain, FALLS, cataracts. 11/23/22 ex-spouse phylicia Waterman reports history is accurate to her knowledge. current adominal hernia noted History of Any Multi-Drug Resistant Organisms: None Reported Past Surgical History: Appendectomy Additional Past Surgical History / Comment(s): Colonoscopy. 11/23/22 ex-spouse phylicia Waterman reports history is accurate to her knowledge. Past Anesthesia/Blood Transfusion Reactions: No Reported Reaction Past Psychological History: Unable to Obtain, Anxiety, Depression Additional Psychological History / Comment(s): 11/23/22 ex-spouse phyilcia Waterman reports history is accurate to her knowledge. Smoking Status: Current every day smoker Past Alcohol Use History: None Reported Additional Past Alcohol Use History / Comment(s): Pt started smoking in 1969 and smokes 2 ppd or a little more. He states he has hx of ETOH abuse but has not drank in a few years. Past Drug Use History: None Reported Additional Drug Use History / Comment(s): Patient reports being a heavy marijuana smoker in the 1969" - Past Family History Father Family Medical History: Congestive Heart Failure (CHF), COPD Additional Family Medical History / Comment(s): Father was an alcoholic but was able to quit drinking Mother Family Medical History: Congestive Heart Failure (CHF), COPD Additional Family Medical History / Comment(s): Mother was an alcoholic. Daughter(s) Additional Family Medical History / Comment(s): Liver cancer Medications and Allergies Home Medications Medication Instructions Recorded Confirmed Type Albuterol Nebulized [Ventolin 2.5 mg INHALATION RT-Q6H PRN 05/08/20 12/31/22 History Nebulized] Apixaban [Eliquis] 5 mg PO BID #60 tab 07/08/20 12/31/22 Rx amLODIPine [Norvasc] 10 mg PO DAILY 01/12/21 12/31/22 History Ipratropium-Albuterol Nebulize 3 ml INHALATION RT-Q6H PRN 05/02/21 12/31/22 History [Duoneb 0.5 mg-3 mg/3 ml Soln] Tamsulosin [Flomax] 0.4 mg PO DAILY 12/07/21 12/31/22 History Albuterol Sulfate [Proair Hfa] 2 puff INHALATION RT-Q6H PRN 02/18/22 12/31/22 History Fluticasone Nasal [place] [Flonase 1 spray EA NOSTRIL Q12H PRN 02/18/22 12/31/22 History Nasal [place]] HYDROcodone/APAP 7.5-325MG [[place] 1 tab PO Q4H PRN 02/18/22 12/31/22 History 7.5-325] Potassium Chloride [Klor-Con 10 ER] 10 meq PO DAILY 02/18/22 12/31/22 History Theophylline Anhydrous 400 mg PO DAILY 02/18/22 12/31/22 History [Theophylline] Escitalopram [Lexapro] 5 mg PO DAILY 08/29/22 12/31/22 History Omeprazole 40 mg PO DAILY 08/29/22 12/31/22 History Metoprolol Tartrate [Lopressor] 50 mg PO BID tab 09/07/22 12/31/22 Rx metFORMIN HCL [Glucophage] 500 mg PO BID tab 09/07/22 12/31/22 Rx predniSONE 5 mg PO DAILY 11/23/22 12/31/22 History Furosemide [Lasix] 40 mg PO BID #60 tab 11/29/22 12/31/22 Rx Melatonin 6 mg PO HS PRN 10 Days #20 tab 11/29/22 12/31/22 Rx Nicotine 21Mg/24Hr Patch [Habitrol] 1 patch TRANSDERM DAILY #3 patch 11/29/22 12/31/22 Rx Spironolactone [Aldactone] 25 mg PO DAILY #30 tab 11/29/22 12/31/22 Rx Atorvastatin Calcium [Lipitor] 40 mg PO HS 12/31/22 12/31/22 History Clopidogrel [Plavix] 75 mg PO DAILY 12/31/22 12/31/22 History DULoxetine HCL [Cymbalta] 30 mg PO DAILY 12/31/22 12/31/22 History Fluticasone/Vilanterol [Breo 1 puff INHALATION RT-DAILY 12/31/22 12/31/22 History Ellipta 100-25 Mcg Inhaler] Pregabalin [Lyrica] 75 mg PO BID 12/31/22 12/31/22 History Umeclidinium [place] [Incruse 1 puff INHALATION RT-DAILY 12/31/22 12/31/22 History Ellipta] Allergies Allergy/AdvReac Type Severity Reaction Status Date / Time MIGUEL Inhibitors Allergy Unknown - Verified 12/31/22 12:30 per [facility] doxycycline Allergy Anaphylaxis Verified 12/31/22 12:30 Penicillins Allergy Anaphylaxis, Verified 12/31/22 12:30 Seizure Surgical - Exam Vital Signs Temp Pulse Resp BP Pulse Ox 98.1 F 70 22 107/72 97 12/31/22 11:00 12/31/22 11:00 12/31/22 11:00 12/31/22 11:00 12/31/22 11:00 Patient Seen Date: 12/31/22 Patient Seen Time: 17:40 - Cardiovascular Pedal pulses are not palpable secondary to edema bilateral feet and lower extremity. Pitting edema is noted 5/7 bilateral there are vesicles forming secondary to the edema bilateral feet and lower legs. There is drainage serosanguineous. There is no digital hair extremities are warm to warm bilateral with possible some increase in temperature distally consistent with cellulitis - Integumentary Integument is intact however there is no vesicles forming secondary to venous congestion of bilateral lower extremities. Mycotic nails elongated 10 no ulce rations noted - Neurologic Decreased epicritic and pallesthetic sensations bilateral consistent with diabetic neuropathy - Musculoskeletal All inverters everters plantar flexed dorsiflexors grossly intact symmetrical bilateral range of motion ankle joint subtalar joint and midtarsal joint grossly normal symmetrical bilateral difficulties to evaluate with certainty due to edema and pain bilateral Results - Labs 12/31/22 11:33 12/31/22 11:33 Abnormal Lab Results - Last 24 Hours (Table) 12/31/22 12/31/22 12/31/22 Range/Units 11:33 11:33 16:22 RBC 3.67 L (4.30-5.90) m/uL Hgb 10.8 L (13.0-17.5) gm/dL Hct 33.2 L (39.0-53.0) % RDW 18.7 H (11.5-15.5) % Neutrophils # 8.0 H (1.3-7.7) k/uL Sodium 135 L (137-145) mmol/L Carbon Dioxide 33 H (22-30) mmol/L Creatinine 0.61 L (0.66-1.25) mg/dL Glucose 119 H (74-99) mg/dL POC Glucose (mg/dL) 156 H (70-110) mg/dL Total Protein 5.4 L (6.3-8.2) g/dL Albumin 3.1 L (3.5-5.0) g/dL Diabetes panel 12/31/22 Range/Units 11:33 Sodium 135 L (137-145) mmol/L Potassium 4.3 (3.5-5.1) mmol/L Chloride 98 (98-107) mmol/L Carbon Dioxide 33 H (22-30) mmol/L BUN 12 (9-20) mg/dL Creatinine 0.61 L (0.66-1.25) mg/dL Glucose 119 H (74-99) mg/dL Calcium 8.7 (8.4-10.2) mg/dL AST 17 (17-59) U/L ALT 19 (4-49) U/L Alkaline Phosphatase 67 (38-126) U/L Total Protein 5.4 L (6.3-8.2) g/dL Albumin 3.1 L (3.5-5.0) g/dL Calcium panel 12/31/22 Range/Units 11:33 Calcium 8.7 (8.4-10.2) mg/dL Albumin 3.1 L (3.5-5.0) g/dL Pituitary panel 12/31/22 Range/Units 11:33 Sodium 135 L (137-145) mmol/L Potassium 4.3 (3.5-5.1) mmol/L Chloride 98 (98-107) mmol/L Carbon Dioxide 33 H (22-30) mmol/L BUN 12 (9-20) mg/dL Creatinine 0.61 L (0.66-1.25) mg/dL Glucose 119 H (74-99) mg/dL Calcium 8.7 (8.4-10.2) mg/dL Adrenal panel 12/31/22 Range/Units 11:33 Sodium 135 L (137-145) mmol/L Potassium 4.3 (3.5-5.1) mmol/L Chloride 98 (98-107) mmol/L Carbon Dioxide 33 H (22-30) mmol/L BUN 12 (9-20) mg/dL Creatinine 0.61 L (0.66-1.25) mg/dL Glucose 119 H (74-99) mg/dL Calcium 8.7 (8.4-10.2) mg/dL Total Bilirubin 0.5 (0.2-1.3) mg/dL AST 17 (17-59) U/L ALT 19 (4-49) U/L Alkaline Phosphatase 67 (38-126) U/L Total Protein 5.4 L (6.3-8.2) g/dL Albumin 3.1 L (3.5-5.0) g/dL Assessment and Plan Assessment: Venous insufficiency bilateral with pre-ulcerative lesions bilateral lower extremities Plan: Exam patient should get an arterial Doppler to provide information as to appropriate compression patient can tolerate. At this time will treat and support the developing wounds with Silvadene and an Miguel wrap to bilateral lower extremities with mild compression suggest possible infectious disease consult to see evaluate for possible cellulitis as well as cardiology. We will follow thank you for this consult Time with Patient: Greater than 30
--- NOTE | 2022-12-31 18:18 | US ---
EXAMINATION TYPE: US venous doppler duplex LE BI DATE OF EXAM: 12/31/2022 1:33 PM COMPARISON: NONE CLINICAL INDICATION: Male, 72 years old with history of leg swelling; Leg swelling SIDE PERFORMED: Bilateral TECHNIQUE: The lower extremity deep venous system is examined utilizing real time linear array sonog brien with graded compression, doppler sonography and color-flow sonography. VESSELS IMAGED: Common Femoral Vein Deep Femoral Vein Greater Saphenous Vein * Femoral Vein Popliteal Vein Small Saphenous Vein * Proximal Calf Veins (* superficial vessels) Right Leg: Negative for DVT Left Leg: Negative for DVT IMPRESSION: No evidence of DVT.
[2022-12-31] MEDS: HYDROcodone/APAP 7.5-325MG 1 EACH TAB PO PRN (19:54)
[2022-12-31] MEDS: ATORVASTATIN 40 MG TAB PO SCH (19:54)
[2022-12-31] MEDS: APIXABAN 5 MG TAB PO SCH (19:54)
[2022-12-31] MEDS: METOPROLOL TARTRATE 50 MG TAB PO SCH (19:54)
[2022-12-31] MEDS: PREGABALIN 75 MG CAP PO SCH (19:54)
[2022-12-31 20:03] LABS: Glucose,Whole Blood 166 mg/dL (70-110)
[2023-01-01] MEDS: FUROSEMIDE 80 MG TAB PO SCH ×2 (00:30→09:08)
[2023-01-01] MEDS ORDERED: MORPHINE SULFATE 4 MG/ML SYRINGE IVP STA (00:33)
[2023-01-01] MEDS: HYDROcodone/APAP 7.5-325MG 1 EACH TAB PO PRN ×5 (02:58→20:40)
[2023-01-01 06:07] LABS: Glucose,Whole Blood 166 mg/dL (70-110)
[2023-01-01] MEDS: metFORMIN 500 MG TAB PO SCH ×2 (06:50→17:09)
[2023-01-01] MEDS: SYMBICORT 80-4.5 MCG INHALER INHALATION SCH ×2 (07:57→21:15)
[2023-01-01] MEDS: IPRATROPIUM-ALBUTEROL 3 ML NEB INHALATION PRN (07:57)
[2023-01-01] MEDS ORDERED: predniSONE 5 MG TAB PO SCH (09:00)
[2023-01-01] MEDS ORDERED: CLOPIDOGREL 75 MG TAB PO SCH (09:00)
[2023-01-01] MEDS: NICOTINE 21MG/24HR PATCH TRANSDERM SCH (09:08)
[2023-01-01] MEDS: APIXABAN 5 MG TAB PO SCH ×2 (09:08→20:40)
[2023-01-01] MEDS: TAMSULOSIN 0.4 MG CAP.ER.24H PO SCH (09:09)
[2023-01-01] MEDS: SPIRONOLACTONE 25 MG TAB PO SCH (09:09)
[2023-01-01] MEDS: METOPROLOL TARTRATE 50 MG TAB PO SCH ×2 (09:09→20:40)
[2023-01-01] MEDS: PREGABALIN 75 MG CAP PO SCH ×2 (09:09→20:40)
[2023-01-01] MEDS: ESCITALOPRAM 5 MG TAB PO SCH (09:09)
[2023-01-01] MEDS: DULoxetine HCL 30 MG CAPSULE.DR PO SCH (09:09)
[2023-01-01 09:25] LABS: Anisocytosis Slight; Basophils # (A) 0.1 k/uL (0-0.2); Basophils % (A) 1 %; Eosinophils # (A) 0.1 k/uL (0-0.7); Eosinophils % (A) 1 %; HCT 34.8 % (39.0-53.0); HGB 11.1 gm/dL (13.0-17.5); Lymphocytes # (A) 1.8 k/uL (1.0-4.8); Lymphocytes % (A) 20 %; MCH 29.3 pg (25.0-35.0); MCHC 32.1 g/dL (31.0-37.0); MCV 91.3 fL (80.0-100.0); Monocytes # (A) 0.8 k/uL (0-1.0); Monocytes % (A) 8 %; Neutrophils # (A) 6.3 k/uL (1.3-7.7); Neutrophils % (A) 67 %; Platelet Count 248 k/uL (150-450); RBC 3.81 m/uL (4.30-5.90); RDW 18.8 % (11.5-15.5); WBC 9.4 k/uL (3.8-10.6)
[2023-01-01 10:01] LABS: African American GFR (CKD) >90 (>60 ml/min/1.73 sqM); Blood Urea Nitrogen 11 mg/dL (9-20); Calcium 8.1 mg/dL (8.4-10.2); Chloride 92 mmol/L (98-107); Glucose 173 mg/dL (74-99); Non-African American GFR(CKD) >90 (>60 ml/min/1.73 sqM); Potassium 3.3 mmol/L (3.5-5.1); Sodium 135 mmol/L (137-145)
[2023-01-01 10:17] LABS: Anion Gap 5 mmol/L; Carbon Dioxide 38 mmol/L (22-30)
[2023-01-01] MEDS ORDERED: Potassium Replacement Protocol 1 EACH MISC MISCELLANE PRN ×2 (10:33→16:01)
[2023-01-01 11:34] LABS: C Reactive Protein 3.7 mg/dL (<1.0)
[2023-01-01] MEDS: POTASSIUM CHLORIDE ER 20 MEQ TAB.ER PO SCH ×2 (11:38→12:28)
[2023-01-01 11:47] LABS: Glucose,Whole Blood 135 mg/dL (70-110)
--- NOTE | 2023-01-01 14:09 | P.CRDCN ---
History of Present Illness Consult date: 01/01/23 Requesting physician: Tigre E Sheet Reason for Consult (text): CHF Chief complaint: lower extremity edema History of present illness: This is 72-year-old gentleman who is somewhat of a poor historian. Has a history of hypertension, COPD requiring home oxygen, atrial fibrillation that is chronic and he is anticoagulated, type 2 diabetes, hypertension, hyperlipidemia 2 packs per day smoking which he quit 10 days ago. Had a recent admission last month for lower extremity edema and shortness of breath but did not follow-up. Had an echocardiogram with Doppler study done in February 2022 which showed an ejection fraction of 40-45% with mild TR. According to the patient he underwent cardiac catheterization many years ago in [place] showed no evidence of CAD. 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 Presented for progressively worsening lower extremity edema. He feels his breathing has been better since he quit smoking. He does not follow a low-sodium diet. He feels he has been compliant with his medications at home. Chest x-ray on admission showed findings suggestive of mild pulmonary edema. EKG showed atrial fibrillation with controlled ventricular response. BS duplex study was negative for DVTs. Labs showed a hemoglobin of 10.8, sodium 135, potassium is morning 3.3, normal renal function. Troponin negative 1. NT proBNP 585. Total protein and albumin low. He is currently on Lasix 80 mg by mouth every 8 hours was on 40 mg by mouth twice a day at home. Denies any current or recent complaints of chest discomfort. Denies any dizziness or lightheadedness. He's had no syncope. He denies any PND. Past Medical History Past Medical History: Atrial Fibrillation, Asthma, COPD, Diabetes Mellitus, GERD/Reflux, Hyperlipidemia, Hypertension, Osteoarthritis (OA), Pneumonia Additional Past Medical History / Comment(s): Afib RVR, home oxygen prn, bronchitis, pt states he is on metformin to prevent becoming diabetic, neuropathy bilateral feet/L hand, chronic pain back,/bilateral hips/knees/elbows and shoulders, L heel pain, FALLS, cataracts. 11/23/22 ex-spouse phylicia Waterman reports history is accurate to her knowledge. current adominal hernia noted History of Any Multi-Drug Resistant Organisms: None Reported Past Surgical History: Appendectomy Additional Past Surgical History / Comment(s): Colonoscopy. 11/23/22 ex-spouse phylicia Waterman reports history is accurate to her knowledge. Past Anesthesia/Blood Transfusion Reactions: No Reported Reaction Past Psychological History: Unable to Obtain, Anxiety, Depression Additional Psychological History / Comment(s): 11/23/22 ex-spouse phylicia Waterman reports history is accurate to her knowledge. Smoking Status: Current every day smoker Past Alcohol Use History: None Reported Additional Past Alcohol Use History / Comment(s): Pt started smoking in 1969 and smokes 2 ppd or a little more. He states he has hx of ETOH abuse but has not d rank in a few years. Past Drug Use History: None Reported Additional Drug Use History / Comment(s): Patient reports being a heavy marijuana smoker in the 1969" - Past Family History Father Family Medical History: Congestive Heart Failure (CHF), COPD Additional Family Medical History / Comment(s): Father was an alcoholic but was able to quit drinking Mother Family Medical History: Congestive Heart Failure (CHF), COPD Additional Family Medical History / Comment(s): Mother was an alcoholic. Daughter(s) Additional Family Medical History / Comment(s): Liver cancer Medications and Allergies Home Medications Medication Instructions Recorded Confirmed Type Albuterol Nebulized [Ventolin 2.5 mg INHALATION RT-Q6H PRN 05/08/20 12/31/22 History Nebulized] Apixaban [Eliquis] 5 mg PO BID #60 tab 07/08/20 12/31/22 Rx amLODIPine [Norvasc] 10 mg PO DAILY 01/12/21 12/31/22 History Ipratropium-Albuterol Nebulize 3 ml INHALATION RT-Q6H PRN 05/02/21 12/31/22 History [Duoneb 0.5 mg-3 mg/3 ml Soln] Tamsulosin [Flomax] 0.4 mg PO DAILY 12/07/21 12/31/22 History Albuterol Sulfate [Proair Hfa] 2 puff INHALATION RT-Q6H PRN 02/18/22 12/31/22 History Fluticasone Nasal [place] [Flonase 1 spray EA NOSTRIL Q12H PRN 02/18/22 12/31/22 History Nasal [place]] HYDROcodone/APAP 7.5-325MG [[place] 1 tab PO Q4H PRN 02/18/22 12/31/22 History 7.5-325] Potassium Chloride [Klor-Con 10 ER] 10 meq PO DAILY 02/18/22 12/31/22 History Theophylline Anhydrous 400 mg PO DAILY 02/18/22 12/31/22 History [Theophylline] Escitalopram [Lexapro] 5 mg PO DAILY 08/29/22 12/31/22 History Omeprazole 40 mg PO DAILY 08/29/22 12/31/22 History Metoprolol Tartrate [Lopressor] 50 mg PO BID tab 09/07/22 12/31/22 Rx metFORMIN HCL [Glucophage] 500 mg PO BID tab 09/07/22 12/31/22 Rx predniSONE 5 mg PO DAILY 11/23/22 12/31/22 History Furosemide [Lasix] 40 mg PO BID #60 tab 11/29/22 12/31/22 Rx Melatonin 6 mg PO HS PRN 10 Days #20 tab 11/29/22 12/31/22 Rx Nicotine 21Mg/24Hr Patch [Habitrol] 1 patch TRANSDERM DAILY #3 patch 11/29/22 12/31/22 Rx Spironolactone [Aldactone] 25 mg PO DAILY #30 tab 11/29/22 12/31/22 Rx Atorvastatin Calcium [Lipitor] 40 mg PO HS 12/31/22 12/31/22 History Clopidogrel [Plavix] 75 mg PO DAILY 12/31/22 12/31/22 History DULoxetine HCL [Cymbalta] 30 mg PO DAILY 12/31/22 12/31/22 History Fluticasone/Vilanterol [Breo 1 puff INHALATION RT-DAILY 12/31/22 12/31/22 History Ellipta 100-25 Mcg Inhaler] Pregabalin [Lyrica] 75 mg PO BID 12/31/22 12/31/22 History Umeclidinium [place] [Incruse 1 puff INHALATION RT-DAILY 12/31/22 12/31/22 History Ellipta] Allergies Allergy/AdvReac Type Severity Reaction Status Date / Time MIGUEL Inhibitors Allergy Unknown - Verified 12/31/22 12:30 per [facility] doxycycline Allergy Anaphylaxis Verified 12/31/22 12:30 Penicillins Allergy Anaphylaxis, Verified 12/31/22 12:30 Seizure Physical Exam Vitals: Vital Signs Temp Pulse Pulse Resp BP BP Pulse Ox 01/01/23 12:00 98.1 F 67 18 122/67 99 01/01/23 08:19 80 01/01/23 08:04 98 01/01/23 08:00 98.4 F 89 20 125/69 98 01/01/23 07:58 78 01/01/23 04:00 98.3 F 97 20 126/74 95 01/01/23 02:00 80 22 01/01/23 00:00 97.9 F 80 22 132/73 98 12/31/22 20:00 97.3 F L 75 18 135/77 98 12/31/22 16:00 98.1 F 100 19 123/71 100 12/31/22 15:46 98 12/31/22 15:21 98.1 F 72 21 110/68 99 12/31/22 13:39 98.0 F 74 20 117/77 99 Intake and Output 12/31/22 01/01/23 01/01/23 22:59 06:59 14:59 Intake Total 430 10 540 Output Total 900 1400 375 Balance -470 -1390 165 Intake: IV 10 10 Invasive Line 1 10 10 Oral 420 540 Output: Urine 900 1400 375 Other: Voiding Method Urinal External Catheter External Catheter Weight 128.82 kg PHYSICAL EXAMINATION: This is a 72-year-old gentleman in no apparent distress at the time of my examination. HEENT: Head is atraumatic, normocephalic. Pupils are equal, round. Sclerae anicteric. Conjunctivae are clear. Mucous membranes of the mouth are moist. Neck is supple. There is no elevated jugular venous pressure. No carotid bruit is heard. CHEST EXAMINATION: Lungs reveal diminished air entry bilaterally. No wheezes rales or rhonchi. Respirations even and nonlabored. HEART EXAMINATION: Heart irregular rate and rhythm, positive S1 and S2. No S3. No S4. No clicks, rubs or murmurs. ABDOMEN: Soft, obese, nontender. Bowel sounds are heard. No organomegaly noted. EXTREMITIES: Bilateral Miguel wraps present with moderate amount of edema and eryt janneth with blistering noted to the feet and toes. NEUROLOGIC EXAMINATION: Patient is awake, alert and oriented x3. Results 01/01/23 08:52 01/01/23 08:52 CBC 01/01/23 Range/Units 08:52 WBC 9.4 (3.8-10.6) k/uL RBC 3.81 L (4.30-5.90) m/uL Hgb 11.1 L (13.0-17.5) gm/dL Hct 34.8 L (39.0-53.0) % Plt Count 248 (150-450) k/uL Comprehensive Metabolic Panel 01/01/23 Range/Units 08:52 Sodium 135 L (137-145) mmol/L Potassium 3.3 L (3.5-5.1) mmol/L Chloride 92 L (98-107) mmol/L Carbon Dioxide 38 H (22-30) mmol/L BUN 11 (9-20) mg/dL Creatinine 0.72 (0.66-1.25) mg/dL Glucose 173 H (74-99) mg/dL Calcium 8.1 L (8.4-10.2) mg/dL Current Medications Generic Name Dose Route Start Last Admin Trade Name Freq PRN Reason Stop Dose Admin Hydrocodone Bitart/Acetaminophen 1 each 12/31/22 13:19 01/01/23 11:38 Hydrocodone/Apap 7.5-325mg 1 Each Tab PO 1 each Q4H PRN Administration Pain Albuterol/Ipratropium 3 ml 12/31/22 13:19 01/01/23 07:57 Ipratropium-Albuterol 3 Ml Neb INHALATION 3 ml RT-Q6H PRN Administration Shortness Of Breath Or Wheezing Apixaban 5 mg 12/31/22 21:00 01/01/23 09:08 Apixaban 5 Mg Tab PO 5 mg BID ALESSIO Administration Protocol Atorvastatin Calcium 40 mg 12/31/22 21:00 12/31/22 19:54 Atorvastatin 40 Mg Tab PO 40 mg HS ALESSIO Administration Budesonide/Formoterol Fumarate 2 puff 01/01/23 08:00 01/01/23 07:57 Symbicort 80-4.5 Mcg Inhaler INHALATION Not Given RT-BID ALESSIO Clopidogrel Bisulfate 75 mg 01/01/23 09:00 01/01/23 09:08 Clopidogrel 75 Mg Tab PO 75 mg DAILY ALESSIO Administration Duloxetine HCl 30 mg 01/01/23 09:00 01/01/23 09:09 Duloxetine Hcl 30 Mg Capsule.Dr PO 30 mg DAILY ALESSIO Administration Escitalopram Oxalate 5 mg 01/01/23 09:00 01/01/23 09:09 Escitalopram 5 Mg Tab PO 5 mg DAILY ALESSIO Administration Fluticasone Propionate 1 spray 12/31/22 13:19 Fluticasone 50mcg/[place] Nasal 16gm EA NOSTRIL Q12H PRN nasal drainage Furosemide 80 mg 12/31/22 16:00 01/01/23 09:08 Furosemide 80 Mg Tab PO 80 mg Q8HR ALESSIO Administration Cefazolin Sodium 2 gm/ Sodium 50 mls @ 100 mls/hr 01/01/23 10:45 01/01/23 11: 38 Chloride IVPB 100 mls/hr Q8HR ALESSIO Administration Protocol Melatonin 6 mg 12/31/22 13:19 Melatonin 3 Mg Tablet PO HS PRN Insomnia Metformin HCl 500 mg 12/31/22 17:30 01/01/23 06:50 Metformin 500 Mg Tab PO 500 mg BID-W/MEALS ALESSIO Administration Metoprolol Tartrate 50 mg 12/31/22 21:00 01/01/23 09:09 Metoprolol Tartrate 50 Mg Tab PO 50 mg BID ALESSIO Administration Miscellaneous Information 1 each 01/01/23 10:33 Potassium Replacement Protocol 1 Each Misc MISCELLANE DAILY PRN Per Protocol Protocol Nicotine 1 patch 01/01/23 09:00 01/01/23 09:08 Nicotine 21mg/24hr Patch TRANSDERM 1 patch DAILY ALESSIO Administration Nitroglycerin 1 inch 01/01/23 18:00 Nitroglycerin Oint 1 Inch/Gm Packet TOPICAL QID ALESSIO Pregabalin 75 mg 12/31/22 21:00 01/01/23 09:09 Pregabalin 75 Mg Cap PO 75 mg BID ALESSIO Administration Silver Sulfadiazine 1 applic 12/31/22 20:00 01/01/23 09:09 Silver Sulfadiazine 1% Cream 25 Gm Tube TOPICAL 1 applic DAILY ALESSIO Administration Protocol Spironolactone 25 mg 01/01/23 09:00 01/01/23 09:09 Spironolactone 25 Mg Tab PO 25 mg DAILY ALESSIO Administration Tamsulosin HCl 0.4 mg 01/01/23 09:00 01/01/23 09:09 Tamsulosin 0.4 Mg Cap.Er.24h PO 0.4 mg DAILY ALESSIO Administration Intake and Output 12/31/22 01/01/23 01/01/23 22:59 06:59 14:59 Intake Total 430 10 540 Output Total 900 1400 375 Balance -470 -1390 165 Intake: IV 10 10 Invasive Line 1 10 10 Oral 420 540 Output: Urine 900 1400 375 Other: Voiding Method Urinal External Catheter External Catheter Weight 128.82 kg 01/01/23 08:52 01/01/23 08:52 Assessment and Plan Assessment: #1 lower extremity edema with normal BNP which could be somewhat inaccurate due to patient's underlying obesity #2 chronic atrial fibrillation #3 hypertension #4 hyperlipidemia #5 COPD #6 diabetes mellitus 7 nicotine dependence #8 noncompliant Plan: From cardiology perspective will obtain a 2-D echo with Doppler study to assess cardiac structure and function. We will discontinue Plavix as there is no clear indication for this. Avoid MIGUEL inhibitor or ARB as well as Entresto due to MIGUEL inhibitor ALLERGY of unclear significance. We will try to clarify the allergy. We'll switch the patient to IV Lasix. We will add Farxiga. Continue to monitor renal function, electrolytes and daily weights. As well as intake and output. Discussed with the patient the importance of smoking cessation, medication compliance as well as low-sodium diet. We will continue to follow the patient and provide further recommendations accordingly. DIRECTOR OF HEALTH EDUCATION note has been reviewed, I agree with a documented findings and plan of care. Patient was seen and examined.
[2023-01-01] MEDS: FUROSEMIDE 10 MG/ML 4 ML VIAL IV SCH ×2 (15:39→23:32)
[2023-01-01] MEDS: DAPAGLIFLOZIN PROPANEDIOL 10 MG TABLET PO SCH (15:39)
--- NOTE | 2023-01-01 16:05 | P.PN ---
Subjective This is a pleasant 71 years old male with multiple medical problems including COPD, diabetes mellitus, hypertension, hyperlipidemia, osteoarthritis, GERD, diabetic neuropathy, chronic back pain, joint disease and falls He was recently in the hospital for COPD exacerbation and bilateral lower extremity edema and chronic CHF Patient presents because of bilateral patellar leg edema swelling and redness and erythema slowly get worse. He denies dyspnea. No chest pain. No change in urine or bowel habits Denies smoking alcohol or illicit drugs He is on 3 L oxygen at home. He is also on a prednisone 5 mg daily placed by his PCP Dr. Alfredo Vitals are stable Labs showing mild anemia with hemoglobin 10.8, rest of CBC, BMP and liver enzymes are unremarkable. Troponin is negative. Chest x-ray: Findings are consistent with mild pulmonary congestion EKG showing atrial fibrillation with controlled rate at [address]-T changes and QTC 422. 01/01/2023 Patient with bilateral leg swelling and redness but likely secondary to medicat ion effect as well as mild diastolic CHF. I don't think the patient has actual infection or cellulitis. Patient has good urine output on 80 mg by mouth every 8 hours. This was transcribed goes by senior loan processor Also patient placed on cefazolin by ID team Continue to discontinue Norvasc and prednisone. Objective - Vital Signs Vital signs: Vital Signs Temp 98.1 F 01/01/23 12:00 Pulse 67 01/01/23 12:00 Resp 18 01/01/23 12:00 BP 122/67 01/01/23 12:00 Pulse Ox 99 01/01/23 12:00 FiO2 Intake & Output 12/31/22 01/01/23 01/01/23 18:59 06:59 18:59 Intake Total 180 260 540 Output Total 1250 1850 375 Balance -1070 -1590 165 Weight 128.82 kg 128.82 kg Intake: IV 20 Invasive Line 1 20 Oral 180 240 540 Output: Urine 1250 1850 375 Other: Voiding Method External Catheter External Catheter - Exam GENERAL: The patient is alert and oriented x3, not in any acute distress. Well developed, well nourished. HEENT: Pupils are round and equally reacting to light. EOMI. No scleral icterus. No conjunctival pallor. Normocephalic, atraumatic. No pharyngeal erythema. No thyromegaly. CARDIOVASCULAR: S1 and S2 present. No murmurs, rubs, or gallops. PULMONARY: Chest is clear to auscultation, no wheezing or crackles. ABDOMEN: Soft, nontender, nondistended, normoactive bowel sounds. No palpable organomegaly. MUSCULOSKELETAL: No joint swelling or deformity. -EXTREMITIES: No cyanosis, clubbing, bilateral pitting like and pedal edema. Red and swollen but nontender not warm, but nails are overgrown NEUROLOGICAL: Gross neurological examination did not reveal any focal deficits. SKIN: No rashes. no petechiae. - Labs CBC & Chem 7: 01/01/23 08:52 01/01/23 08:52 Labs: Abnormal Lab Results - Last 24 Hours (Table) 12/31/22 12/31/22 01/01/23 Range/Units 16:22 20:02 06:05 RBC (4.30-5.90) m/uL Hgb (13.0-17.5) gm/dL Hct (39.0-53.0) % RDW (11.5-15.5) % Sodium (137-145) mmol/L Potassium (3.5-5.1) mmol/L Chloride (98-107) mmol/L Carbon Dioxide (22-30) mmol/L Glucose (74-99) mg/dL POC Glucose (mg/dL) 156 H 166 H 166 H (70-110) mg/dL Calcium (8.4-10.2) mg/dL C-Reactive Protein (<1.0) mg/dL 01/01/23 01/01/23 01/01/23 Range/Units 08:52 08:52 11:39 RBC 3.81 L (4.30-5.90) m/uL Hgb 11.1 L (13.0-17.5) gm/dL Hct 34.8 L (39.0-53.0) % RDW 18.8 H (11.5-15.5) % Sodium 135 L (137-145) mmol/L Potassium 3.3 L (3.5-5.1) mmol/L Chloride 92 L (98-107) mmol/L Carbon Dioxide 38 H (22-30) mmol/L Glucose 173 H (74-99) mg/dL POC Glucose (mg/dL) 135 H (70-110) mg/dL Calcium 8.1 L (8.4-10.2) mg/dL C-Reactive Protein 3.7 H (<1.0) mg/dL Assessment and Plan Assessment: Acute on chronic diastolic CHF Bilateral pitting leg edema, acute on chronic chronic atrial fibrillation on Eliquis and the rate is controlled Chronic hypoxic respiratory failure with related to her oxygen via nasal cannula Diabetes mellitus Hypertension Hyperlipidemia History of osteoarthritis History of GERD Diabetic neuropathy of feet and hands Chronic back pain Polyarthralgia History of falls History of anxiety and depression, not in activation Obese with BMI 38.5 Plan: Start the patient on IV Lasix Discontinue prednisone which might contribute to his leg edema Discontinue Norvasc as it might contribute to the like edema. An can be started on ANJU inhibitor as his ALLERGIC to it Labs and medication were reviewed.. Continue same treatment. Continue with symptomatic treatment. Resume home medication. Monitor labs and vitals. DVT and GI prophylaxis. Further recommendations as per clinical course of the patient DVT prophylaxis: Eliquis GI Prophylaxis: Pepcid PT/OT: Pending Prognosis is guarded
[2023-01-01 16:49] LABS: Glucose,Whole Blood 207 mg/dL (70-110)
--- NOTE | 2023-01-01 16:58 | P.CONS ---
History of Present Illness - Reason for Consult Consult date: 01/01/23 Lower extremity redness and swelling Requesting physician: Sajan Haile - Chief Complaint Increasing shortness of breath and leg swelling x few days - History of Present Illness Patient is a 72-year-old male with a past medical history significant for atrial fibrillation diabetes mellitus COPD hypertension hyperlipidemia and diabetic neuropathy patient did have a history of bilateral lower extremity venous stasis ulceration and cellulitis, patient presenting to the hospital for evaluation of increasing shortness of breath and bilateral extremity swelling in this patient symptoms has been going on for days before presentation to the hospital patient complaining of unable to take care of himself legs are getting swollen and the patient able to wrap them around apparently swelling has been getting worse for the last week or 2 did have some superficial ulceration with some clear drainage also with erythema did have some dull aching pain 4-5 out of 10 no radiation patient on presentation to the hospital was afebrile and no fever has been recorded subsequently patient did have a normal white count with a left shift kidney function has been normal CRP is elevated at 3.7 infectious he was consulted with concern for possible cellulitis patient did have bilateral lower extremity Doppler that has been negative for DVT Review of Systems Positive point and negatives has been mentioned in the HPI, complete review of systems was performed and all other systems are negative Past Medical History Past Medical History: Atrial Fibrillation, Asthma, COPD, Diabetes Mellitus, GERD/Reflux, Hyperlipidemia, Hypertension, Osteoarthritis (OA), Pneumonia Additional Past Medical History / Comment(s): Afib RVR, home oxygen prn, bronchitis, pt states he is on metformin to prevent becoming diabetic, neuropathy bilateral feet/L hand, chronic pain back,/bilateral hips/knees/elbows and shoulders, L heel pain, FALLS, cataracts. 11/23/22 ex-spouse phylicia Waterman reports history is accurate to her knowledge. current adominal hernia noted History of Any Multi-Drug Resistant Organisms: None Reported Past Surgical History: Appendectomy Additional Past Surgical History / Comment(s): Colonoscopy. 11/23/22 ex-spouse phylicia Guevara reports history is accurate to her knowledge. Past Anesthesia/Blood Transfusion Reactions: No Reported Reaction Past Psychological History: Unable to Obtain, Anxiety, Depression Additional Psychological History / Comment(s): 11/23/22 ex-spouse phylicia Waterman reports history is accurate to her knowledge. Smoking Status: Current every day smoker Past Alcohol Use History: None Reported Additional Past Alcohol Use History / Comment(s): Pt started smoking in 1969 and smokes 2 ppd or a little more. He states he has hx of ETOH abuse but has not drank in a few years. Past Drug Use History: None Reported Additional Drug Use History / Comment(s): Patient reports being a heavy mariju rodriguez smoker in the 1969" - Past Family History Father Family Medical History: Congestive Heart Failure (CHF), COPD Additional Family Medical History / Comment(s): Father was an alcoholic but was able to quit drinking Mother Family Medical History: Congestive Heart Failure (CHF), COPD Additional Family Medical History / Comment(s): Mother was an alcoholic. Daughter(s) Additional Family Medical History / Comment(s): Liver cancer Medications and Allergies Home Medications Medication Instructions Recorded Confirmed Type Albuterol Nebulized [Ventolin 2.5 mg INHALATION RT-Q6H PRN 05/08/20 12/31/22 History Nebulized] Apixaban [Eliquis] 5 mg PO BID #60 tab 07/08/20 12/31/22 Rx Ipratropium-Albuterol Nebulize 3 ml INHALATION RT-Q6H PRN 05/02/21 12/31/22 History [Duoneb 0.5 mg-3 mg/3 ml Soln] Tamsulosin [Flomax] 0.4 mg PO DAILY 12/07/21 12/31/22 History Albuterol Sulfate [Proair Hfa] 2 puff INHALATION RT-Q6H PRN 02/18/22 12/31/22 History Fluticasone Nasal [place] [Flonase 1 spray EA NOSTRIL Q12H PRN 02/18/22 12/31/22 History Nasal [place]] Potassium Chloride [Klor-Con 10 ER] 10 meq PO DAILY 02/18/22 12/31/22 History Theophylline Anhydrous 400 mg PO DAILY 02/18/22 12/31/22 History [Theophylline] Escitalopram [Lexapro] 5 mg PO DAILY 08/29/22 12/31/22 History Omeprazole 40 mg PO DAILY 08/29/22 12/31/22 History Metoprolol Tartrate [Lopressor] 50 mg PO BID tab 09/07/22 12/31/22 Rx metFORMIN HCL [Glucophage] 500 mg PO BID tab 09/07/22 12/31/22 Rx Melatonin 6 mg PO HS PRN 10 Days #20 tab 11/29/22 12/31/22 Rx Nicotine 21Mg/24Hr Patch [Habitrol] 1 patch TRANSDERM DAILY #3 patch 11/29/22 12/31/22 Rx Spironolactone [Aldactone] 25 mg PO DAILY #30 tab 11/29/22 12/31/22 Rx Atorvastatin Calcium [Lipitor] 40 mg PO HS 12/31/22 12/31/22 History Clopidogrel [Plavix] 75 mg PO DAILY 12/31/22 12/31/22 History DULoxetine HCL [Cymbalta] 30 mg PO DAILY 12/31/22 12/31/22 History Fluticasone/Vilanterol [Breo 1 puff INHALATION RT-DAILY 12/31/22 12/31/22 History Ellipta 100-25 Mcg Inhaler] Umeclidinium [place] [Incruse 1 puff INHALATION RT-DAILY 12/31/22 12/31/22 History Ellipta] Acetaminophen Tab [Tylenol] 650 mg PO Q6HR PRN tab 01/05/23 Rx Budesonide-Formot 160-4.5 Mcg 2 puff INHALATION RT-BID each 01/05/23 Rx [Symbicort 160-4.5 Mcg Inhaler] Cephalexin [Keflex] 500 mg PO TID 10 Days #30 cap 01/05/23 Rx Dapagliflozin Propanediol [Farxiga] 10 mg PO DAILY tab 01/05/23 Rx Furosemide [Lasix] 40 mg PO DAILY tab 01/05/23 Rx HYDROcodone/APAP 7.5-325MG [[place] 1 each PO Q4H PRN #4 tab 01/05/23 Rx 7.5-325] HYDROcodone/APAP 7.5-325MG [[place] 1 tab PO Q4H PRN #4 tab 01/05/23 Rx 7.5-325] Pregabalin [Lyrica] 75 mg PO BID #6 cap 01/05/23 Rx SILVER sulfADIAZINE CREAM 1 applic TOPICAL DAILY each 01/05/23 Rx [Silvadene Cream] Sennosides [Senokot] 8.6 mg PO BID tab 01/05/23 Rx Allergies Allergy/AdvReac Type Severity Reaction Status Date / Time MIGUEL Inhibitors Allergy Unknown - Verified 12/31/22 12:30 per [facility] doxycycline Allergy Anaphylaxis Verified 12/31/22 12:30 Penicillins Allergy Anaphylaxis, Verified 12/31/22 12:30 Seizure Physical Exam Vitals: Vital Signs Temp Pulse Pulse Resp BP BP Pulse Ox 01/01/23 08:19 80 01/01/23 08:04 98 01/01/23 07:58 78 01/01/23 04:00 98.3 F 97 20 126/74 95 01/01/23 02:00 80 22 01/01/23 00:00 97.9 F 80 22 132/73 98 12/31/22 20:00 97.3 F L 75 18 135/77 98 12/31/22 16:00 98.1 F 100 19 123/71 100 12/31/22 15:46 98 12/31/22 15:21 98.1 F 72 21 110/68 99 12/31/22 13:39 98.0 F 74 20 117/77 99 12/31/22 11:00 98.1 F 70 22 107/72 97 Intake and Output 12/31/22 01/01/23 01/01/23 22:59 06:59 14:59 Intake Total 430 10 Output Total 900 1400 Balance -470 -1390 Intake: IV 10 10 Invasive Line 1 10 10 Oral 420 Output: Urine 900 1400 Other: Voiding Method Urinal External Catheter Weight 128.82 kg Elderly male lying in bed in no distress Lungs diminished breath sounds Abdomen soft and no distention Bilaterally extremity with swelling redness and warmth to touch Exam completed with the help of MECHANICAL SYSTEMS DESIGNER Results CBC & Chem 7: 01/04/23 08:20 01/04/23 08:20 Labs: Abnormal Lab Results - Last 24 Hours (Table) 12/31/22 12/31/22 12/31/22 Range/Units 11:33 11:33 16:22 RBC 3.67 L (4.30-5.90) m/uL Hgb 10.8 L (13.0-17.5) gm/dL Hct 33.2 L (39.0-53.0) % RDW 18.7 H (11.5-15.5) % Neutrophils # 8.0 H (1.3-7.7) k/uL Sodium 135 L (137-145) mmol/L Carbon Dioxide 33 H (22-30) mmol/L Creatinine 0.61 L (0.66-1.25) mg/dL Glucose 119 H (74-99) mg/dL POC Glucose (mg/dL) 156 H (70-110) mg/dL Total Protein 5.4 L (6.3-8.2) g/dL Albumin 3.1 L (3.5-5.0) g/dL 12/31/22 01/01/23 Range/Units 20:02 06:05 RBC (4.30-5.90) m/uL Hgb (13.0-17.5) gm/dL Hct (39.0-53.0) % RDW (11.5-15.5) % Neutrophils # (1.3-7.7) k/uL Sodium (137-145) mmol/L Carbon Dioxide (22-30) mmol/L Creatinine (0.66-1.25) mg/dL Glucose (74-99) mg/dL POC Glucose (mg/dL) 166 H 166 H (70-110) mg/dL Total Protein (6.3-8.2) g/dL Albumin (3.5-5.0) g/dL Assessment and Plan (1) Bilateral lower leg cellulitis Current Visit: Yes Status: Acute Code(s): L03.116 - CELLULITIS OF LEFT LOWER LIMB; L03.115 - CELLULITIS OF RIGHT LOWER LIMB SNOMED Code(s): 205089903 Plan: 1patient was in the hospital with increasing shortness of breath also with increasing bilateral lower extremity swelling superficial saturation patient did have evidence of erythema warm to touch elevated inflammatory markers and a left shift on WBC of concern for possible cellulitis likely from gram-positive skin xu. 2patient with multiple antibiotic allergies that would limit the number of antibiotics safe to use 3-we will start the patient cefazolin 2 g every 8 hours and marked the area of the redness 4-continue with Miguel wrap to the leg to keep the swelling down This was a tele health consult We will follow on clinical condition and cultures to further adjust medication if needed Thank you for this consultation we will follow the patient along with you Time with Patient: Greater than 30
[2023-01-01] MEDS ORDERED: NITROGLYCERIN OINT 1 INCH/GM PACKET TOPICAL SCH (18:00)
[2023-01-01 20:04] LABS: Glucose,Whole Blood 137 mg/dL (70-110)
[2023-01-01] MEDS: ATORVASTATIN 40 MG TAB PO SCH (20:40)
[2023-01-02] MEDS: HYDROcodone/APAP 7.5-325MG 1 EACH TAB PO PRN ×2 (03:59→19:47)
[2023-01-02 05:58] LABS: Glucose,Whole Blood 131 mg/dL (70-110)
[2023-01-02] MEDS: ACETAMINOPHEN TAB 325 MG TAB PO PRN (06:09)
[2023-01-02] MEDS: metFORMIN 500 MG TAB PO SCH ×2 (06:10→17:19)
[2023-01-02] MEDS: NICOTINE 21MG/24HR PATCH TRANSDERM SCH (08:46)
[2023-01-02] MEDS: METOPROLOL TARTRATE 50 MG TAB PO SCH ×2 (08:47→20:31)
[2023-01-02] MEDS: TAMSULOSIN 0.4 MG CAP.ER.24H PO SCH (08:47)
[2023-01-02] MEDS: ESCITALOPRAM 5 MG TAB PO SCH (08:47)
[2023-01-02] MEDS: PREGABALIN 75 MG CAP PO SCH ×2 (08:47→20:31)
[2023-01-02] MEDS: SPIRONOLACTONE 25 MG TAB PO SCH (08:47)
[2023-01-02] MEDS: DULoxetine HCL 30 MG CAPSULE.DR PO SCH (08:47)
[2023-01-02] MEDS: FUROSEMIDE 10 MG/ML 4 ML VIAL IV SCH ×2 (08:47→17:19)
[2023-01-02] MEDS: APIXABAN 5 MG TAB PO SCH ×2 (08:47→20:31)
[2023-01-02] MEDS: DAPAGLIFLOZIN PROPANEDIOL 10 MG TABLET PO SCH (08:47)
[2023-01-02 08:49] LABS: African American GFR (CKD) >90 (>60 ml/min/1.73 sqM); Anion Gap 4 mmol/L; Blood Urea Nitrogen 14 mg/dL (9-20); Calcium 7.9 mg/dL (8.4-10.2); Carbon Dioxide 38 mmol/L (22-30); Chloride 90 mmol/L (98-107); Glucose 95 mg/dL (74-99); Non-African American GFR(CKD) >90 (>60 ml/min/1.73 sqM); Potassium 3.9 mmol/L (3.5-5.1); Sodium 132 mmol/L (137-145)
[2023-01-02] MEDS: SYMBICORT 80-4.5 MCG INHALER INHALATION SCH ×2 (09:45→20:50)
[2023-01-02 12:35] LABS: Glucose,Whole Blood 108 mg/dL (70-110)
[2023-01-02] MEDS: SENNOSIDES 8.6 MG TAB PO SCH ×2 (12:41→20:30)
--- NOTE | 2023-01-02 13:31 | P.PN ---
Subjective Progress Note Date: 01/02/23 This is 72-year-old gentleman who is somewhat of a poor historian. Has a history of hypertension, COPD requiring home oxygen, atrial fibrillation that is chronic and he is anticoagulated, type 2 diabetes, hypertension, hyperlipidemia 2 packs per day smoking which he quit 10 days ago. Had a recent admission last month for lower extremity edema and shortness of breath but did not follow-up. Had an echocardiogram with Doppler study done in February 2022 which showed an ejection fraction of 40-45% with mild TR. According to the patient he underwent cardiac catheterization many years ago in [place] showed no evidence of CAD. He does not follow with a wildlife science professor. Presented for progressively worsening lower extremity edema. He feels his breathing has been better since he quit smoking. He does not follow a low-sodium diet. He feels he has been compliant with his medications at home. Chest x-ray on admission showed findings suggestive of mild pulmonary edema. EKG showed atrial fibrillation with controlled ventricular response. BS duplex study was negative for DVTs. Labs showed a hemoglobin of 10.8, sodium 135, potassium is morning 3.3, normal renal function. Troponin negative 1. NT proBNP 585. Total protein and albumin low. He is currently on Lasix 80 mg by mouth every 8 hours was on 40 mg by mouth twice a day at home. Denies any current or recent complaints of chest discomfo rt. Denies any dizziness or lightheadedness. He's had no syncope. He denies any PND. 01/02/2023 Patient was seen and examined resting comfortably in a recliner. He overall says he doesn't feel any better and doesn't think his edema has improved but that the edema doesn't appear to be significantly improved compared to yesterday. Echocardiogram is pending. He remains on IV Lasix 40 mg every 8 hours. Renal function is stable. Objective - Vital Signs Vital signs: Vital Signs Temp 98.2 F 01/02/23 04:00 Pulse 89 01/02/23 08:00 Resp 16 01/02/23 08:00 BP 131/68 01/02/23 08:00 Pulse Ox 91 L 01/02/23 08:00 FiO2 Intake & Output 01/01/23 01/02/23 01/02/23 18:59 06:59 18:59 Intake Total 1980 780 180 Output Total 1600 1850 500 Balance 380 1070 -320 Weight 128.82 kg Intake: Oral 1979 780 180 Output: Urine 1600 1850 500 Other: Voiding Method External Catheter External Catheter External Catheter # Bowel Movements 1 - Exam PHYSICAL EXAMINATION: This is a 72-year-old gentleman in no apparent distress at the time of my examination. HEENT: Head is atraumatic, normocephalic. Pupils are equal, round. Sclerae anic teric. Conjunctivae are clear. Mucous membranes of the mouth are moist. Neck is supple. There is no elevated jugular venous pressure. No carotid bruit is heard. CHEST EXAMINATION: Lungs reveal diminished air entry bilaterally. No wheezes rales or rhonchi. Respirations even and nonlabored. HEART EXAMINATION: Heart irregular rate and rhythm, positive S1 and S2. No S3. No S4. No clicks, rubs or murmurs. ABDOMEN: Soft, obese, nontender. Bowel sounds are heard. No organomegaly noted. EXTREMITIES: Bilateral Miguel wraps present with improving edema and erythema with blistering noted to the feet and toes. NEUROLOGIC EXAMINATION: Patient is awake, alert and oriented x3. - Labs CBC & Chem 7: 01/01/23 08:52 01/02/23 07:40 Labs: Abnormal Lab Results - Last 24 Hours (Table) 01/01/23 01/01/23 01/02/23 Range/Units 16:42 20:02 05:57 Sodium (137-145) mmol/L Chloride (98-107) mmol/L Carbon Dioxide (22-30) mmol/L POC Glucose (mg/dL) 207 H 137 H 131 H (70-110) mg/dL Calcium (8.4-10.2) mg/dL 01/02/23 Range/Units 07:40 Sodium 132 L (137-145) mmol/L Chloride 90 L (98-107) mmol/L Carbon Dioxide 38 H (22-30) mmol/L POC Glucose (mg/dL) (70-110) mg/dL Calcium 7.9 L (8.4-10.2) mg/dL Assessment and Plan Assessment: #1 lower extremity edema with normal BNP which could be somewhat inaccurate due to patient's underlying obesity #2 chronic atrial fibrillation #3 hypertension #4 hyperlipidemia #5 COPD #6 diabetes mellitus 7 nicotine dependence #8 noncompliant Plan: From cardiology perspective will obtain a 2-D echo with Doppler study to assess cardiac structure and function. We will continue IV Lasix. Continue monitor renal function, electrolytes and intake and output as well as daily weights. Continue to attempt to clarify MIGUEL inhibitor ALLERGY as ideally we'd like to add Entresto. We will continue to follow the patient and provide further recommendations accordingly. ACCOUNTS PAYABLES CLERK note has been reviewed, I agree with a documented findings and plan of care. Patient was seen and examined.
[2023-01-02 16:40] LABS: Glucose,Whole Blood 110 mg/dL (70-110)
--- NOTE | 2023-01-02 20:11 | P.PN ---
Subjective Progress Note Date: 01/02/23 Principal diagnosis: Bilateral lower extremity cellulitis Patient is a 72-year-old male with a past medical history significant for atrial fibrillation diabetes mellitus COPD hypertension hyperlipidemia and diabetic neuropathy patient did have a history of bilateral lower extremity venous stasis ulceration and cellulitis, patient presenting to the hospital for evaluation of increasing shortness of breath and bilateral extremity swelling, and concern for bilateral lower extremity cellulitis On today's evaluation that is 01/02/2023, the patient denies having any fever or any chills the previous sciatic comfortably no chest pain occasional cough no abdominal pain and no worsening pain to bilateral lower extremity Objective - Vital Signs Vital signs: Vital Signs Temp 98.2 F 01/02/23 04:00 Pulse 85 01/02/23 04:00 Resp 20 01/02/23 04:00 BP 126/65 01/02/23 04:00 Pulse Ox 94 L 01/02/23 04:00 FiO2 Intake & Output 01/01/23 01/02/23 01/02/23 18:59 06:59 18:59 Intake Total 1979 780 Output Total 1600 1850 Balance 380 -1070 Weight 128.82 kg Intake: Oral 1979 Output: Urine 1600 1850 Other: Voiding Method External Catheter External Catheter - Exam GENERAL DESCRIPTION: An elderly male lying in bed in no distress RESPIRATORY SYSTEM: Unlabored breathing , decreased breath sounds at bases HEART: S1 S2 regular rate and rhythm , EXTREMITIES: Bilateral laser currently wrapped in Miguel wrap no drainage of the dressing Exam completed with the help of CINDER WORKER - Labs CBC & Chem 7: 01/01/23 08:52 01/02/23 07:40 Labs: Abnormal Lab Results - Last 24 Hours (Table) 01/01/23 01/01/23 01/01/23 Range/Units 08:52 08:52 11:39 RBC 3.81 L (4.30-5.90) m/uL Hgb 11.1 L (13.0-17.5) gm/dL Hct 34.8 L (39.0-53.0) % RDW 18.8 H (11.5-15.5) % Sodium 135 L (137-145) mmol/L Potassium 3.3 L (3.5-5.1) mmol/L Chloride 92 L (98-107) mmol/L Carbon Dioxide 38 H (22-30) mmol/L Glucose 173 H (74-99) mg/dL POC Glucose (mg/dL) 135 H (70-110) mg/dL Calcium 8.1 L (8.4-10.2) mg/dL C-Reactive Protein 3.7 H (<1.0) mg/dL 01/01/23 01/01/23 01/02/23 Range/Units 16:42 20:02 05:57 RBC (4.30-5.90) m/uL Hgb (13.0-17.5) gm/dL Hct (39.0-53.0) % RDW (11.5-15.5) % Sodium (137-145) mmol/L Potassium (3.5-5.1) mmol/L Chloride (98-107) mmol/L Carbon Dioxide (22-30) mmol/L Glucose (74-99) mg/dL POC Glucose (mg/dL) 207 H 137 H 131 H (70-110) mg/dL Calcium (8.4-10.2) mg/dL C-Reactive Protein (<1.0) mg/dL Assessment and Plan (1) Bilateral lower leg cellulitis Current Visit: Yes Status: Acute Code(s): L03.116 - CELLULITIS OF LEFT LOWER LIMB; L03.115 - CELLULITIS OF RIGHT LOWER LIMB SNOMED Code(s): 753368154 Plan: 1patient was in the hospital with increasing shortness of breath also with increasing bilateral lower extremity swelling superficial ulceration, patient did have evidence of erythema warm to touch elevated inflammatory markers and a left shift on WBC of concern for possible cellulitis likely from gram-positive skin xu. 2patient with multiple antibiotic allergies that would limit the number of antibiotics safe to use 3-patient to continue cefazolin 2 g every 8 hours and continue with Miguel wrap to the leg to keep the swelling down This was a tele health visit Time with Patient: Less than 30
[2023-01-02 20:14] LABS: Glucose,Whole Blood 133 mg/dL (70-110)
[2023-01-02] MEDS: ATORVASTATIN 40 MG TAB PO SCH (20:31)
--- NOTE | 2023-01-02 21:05 | P.PN ---
Subjective This is a pleasant 71 years old male with multiple medical problems including COPD, diabetes mellitus, hypertension, hyperlipidemia, osteoarthritis, GERD, diabetic neuropathy, chronic back pain, joint disease and falls He was recently in the hospital for COPD exacerbation and bilateral lower extremity edema and chronic CHF Patient presents because of bilateral patellar leg edema swelling and redness and erythema slowly get worse. He denies dyspnea. No chest pain. No change in urine or bowel habits Denies smoking alcohol or illicit drugs He is on 3 L oxygen at home. He is also on a prednisone 5 mg daily placed by his PCP Dr. Alfredo Vitals are stable Labs showing mild anemia with hemoglobin 10.8, rest of CBC, BMP and liver enzymes are unremarkable. Troponin is negative. Chest x-ray: Findings are consistent with mild pulmonary congestion EKG showing atrial fibrillation with controlled rate at [address]-T changes and QTC 422. 01/01/2023 Patient with bilateral leg swelling and redness but likely secondary to medicat ion effect as well as mild diastolic CHF. I don't think the patient has actual infection or cellulitis. Patient has good urine output on 80 mg by mouth every 8 hours. This was transcribed goes by drill grinder Also patient placed on cefazolin by ID team Continue to discontinue Norvasc and prednisone. 01/02/2023 Patient has no new complaint His leg swelling is improving slowly and gradually, both legs are wrapped with Miguel bandage today He remains on IV Lasix 80 mg 3 times a day and cefazolin DC Norvasc and prednisone Is also on the [facility] Objective - Vital Signs Vital signs: Vital Signs Temp 98.2 F 01/02/23 04:00 Pulse 79 01/02/23 12:00 Resp 16 01/02/23 12:00 BP 113/69 01/02/23 12:00 Pulse Ox 96 01/02/23 12:36 FiO2 Intake & Output 01/01/23 01/02/23 01/02/23 18:59 06:59 18:59 Intake Total 1979 780 180 Output Total 1600 1850 500 Balance 380 -1070 -320 Weight 128.82 kg Intake: Oral 1979 780 180 Output: Urine 1600 1850 500 Other: Voiding Method External Catheter External Catheter External Catheter # Bowel Movements 1 - Exam GENERAL: The patient is alert and oriented x3, not in any acute distress. Well developed, well nourished. HEENT: Pupils are round and equally reacting to light. EOMI. No scleral icterus. No conjunctival pallor. Normocephalic, atraumatic. No pharyngeal erythema. No t hyromegaly. CARDIOVASCULAR: S1 and S2 present. No murmurs, rubs, or gallops. PULMONARY: Chest is clear to auscultation, no wheezing or crackles. ABDOMEN: Soft, nontender, nondistended, normoactive bowel sounds. No palpable organomegaly. MUSCULOSKELETAL: No joint swelling or deformity. -EXTREMITIES: No cyanosis, clubbing, bilateral pitting like and pedal edema. Red and swollen but nontender not warm, but nails are overgrown NEUROLOGICAL: Gross neurological examination did not reveal any focal deficits. SKIN: No rashes. no petechiae. - Labs CBC & Chem 7: 01/01/23 08:52 01/02/23 07:40 Labs: Abnormal Lab Results - Last 24 Hours (Table) 01/01/23 01/01/23 01/02/23 Range/Units 16:42 20:02 05:57 Sodium (137-145) mmol/L Chloride (98-107) mmol/L Carbon Dioxide (22-30) mmol/L POC Glucose (mg/dL) 207 H 137 H 131 H (70-110) mg/dL Calcium (8.4-10.2) mg/dL 01/02/23 Range/Units 07:40 Sodium 132 L (137-145) mmol/L Chloride 90 L (98-107) mmol/L Carbon Dioxide 38 H (22-30) mmol/L POC Glucose (mg/dL) (70-110) mg/dL Calcium 7.9 L (8.4-10.2) mg/dL Assessment and Plan Assessment: Acute on chronic diastolic CHF Bilateral pitting leg edema, acute on chronic chronic atrial fibrillation on Eliquis and the rate is controlled Chronic hypoxic respiratory failure with related to her oxygen via nasal cannula Diabetes mellitus Hypertension Hyperlipidemia History of osteoarthritis History of GERD Diabetic neuropathy of feet and hands Chronic back pain Polyarthralgia History of falls History of anxiety and depression, not in activation Obese with BMI 38.5 Plan: Start the patient on IV Lasix Discontinue prednisone which might contribute to his leg edema Discontinue Norvasc as it might contribute to the like edema. An can be started on MIGUEL inhibitor as his ALLERGIC to it Labs and medication were reviewed.. Continue same treatment. Continue with symptomatic treatment. Resume home medication. Monitor labs and vitals. DVT and GI prophylaxis. Further recommendations as per clinical course of the patient DVT prophylaxis: Eliquis GI Prophylaxis: Pepcid PT/OT: Pending Prognosis is guarded
[2023-01-03] MEDS: FUROSEMIDE 10 MG/ML 4 ML VIAL IV SCH ×4 (00:21→23:31)
--- NOTE | 2023-01-03 05:12 | US ---
EXAMINATION TYPE: US arterial LE multi level DATE OF EXAM: 12/31/2022 8:56 PM CLINICAL INDICATION: Male, 72 years old with history of lower extremity edema; edema. History of hype rtension, hyperlipidemia, and diabetes. Right Brachial Pressure: 132 Left Brachial Pressure: Deferred due to IV Ankle-Brachial Indices: Right: 0.66 calf Left: 0.65 calf Toe Brachial Indices: Right: 0.33 Left: 0.23 Pt could not tolerate lower thigh pressures bilaterally Loss of phasicity is present. Diminished bilateral GRACE and TBI values noted. IMPRESSION: Suboptimal study. There is at least moderate peripheral arterial disease in the bilatera l lower extremities. Follow-up advised.
[2023-01-03] MEDS: HYDROcodone/APAP 7.5-325MG 1 EACH TAB PO PRN ×4 (05:46→21:06)
[2023-01-03 06:03] LABS: Glucose,Whole Blood 105 mg/dL (70-110)
--- NOTE | 2023-01-03 06:39 | P.CNPUL ---
History of Present Illness Consult date: 01/03/23 Requesting physician: Ange Becerra Reason for consult: dyspnea Chief complaint: Bilateral lower extremity swelling History of present illness: I'm seeing this patient in new consultation today 01/03/2023 for an acute exacerbation of the patient's systolic congestive heart failure. Patient is a 72-year-old white male with history of multiple medical problems including severe COPD, 3 L nasal cannula oxygen dependence, systolic congestive heart failure, chronic atrial fibrillation, hypertension, diabetes mellitus, degenerative joint disease, current smoker. Patient has had multiple admissions over the past year. He was recently discharged home on 11/29/2022 after treatment for an acute COPD exacerbation. He does not follow up in the office. Patient did come back to the emergency room on 12/31/2022 stating that he is unable to take care of himself because his legs are swollen and he cannot move around. Bilateral lower extremity venous Dopplers were negative for DVT. Ankle branchial index was a suboptimal study and follow-up was recommended. There was at least moderate peripheral arterial disease identified. Chest x-ray on admission showed pulmonary vascular congestion and increased interstitial opacities bilaterally. No focal consolidation noted. An echocardiogram is pending. NT proBNP was non-elevated on admission at 585. Patient is receiving Lasix 40 mg 3 times a day and Aldactone. Most recent CBC from 2 days ago was unremarkable. Patient's BMP from yesterday showed a sodium 132, potassium 3.9, chloride 90, serum CO2 chronically elevated at 38, BUN 14, creatinine 0.76, glucose 133. Troponin negative 1. We were consulted earlier this morning due to the patient having increasing lethargy. The patient is currently lying in bed, on 3 L nasal cannula, in no acute distress. Oxygenating at 99%. He does awaken and answer questions. He is oriented to self and place. He is asking for [place]. He denies any shortness breath, cough, fever, chest pain. He also denies any palpitations or syncope. His legs are currently wrapped with Miguel wrap, swollen, and erythemic. Patient denies any recent injury or trauma to his lower extremities. Currently has Silvadene cream and IV cefazolin ordered. Vital signs are stable. Review of Systems REVIEW OF SYSTEMS: CONSTITUTIONAL: Denies any recent significant weight loss or weight gain. EYES: Denies change in vision. EARS, NOSE, MOUTH, THROAT: Denies headaches, denies sore throat. CARDIOVASCULAR: Denies chest pain, palpitations or syncopal episodes. RESPIRATORY: Denies shortness of breath, cough, congestion or hemoptysis. GASTROINTESTINAL: Denies change in appetite, abdominal pain, nausea and vomiting, or diarrhea GENITOURINARY: Denies hematuria, denies infections. MUSKULOSKELETAL: Denies pain, denies swelling. INTEGUMENTARY: Denies rash, denies eczema. Admits bilateral lower extremity redness and swelling NEUROLOGICAL: Denies recent memory loss, no recent seizure activity. PSYCHIATRIC: Denies anxiety, denies depression. HEMATOLOGIC/LYMPHATIC: Denies anemia, denies enlarged lymph node Past Medical History Past Medical History: Atrial Fibrillation, Asthma, COPD, Diabetes Mellitus, GERD/Reflux, Hyperlipidemia, Hypertension, Osteoarthritis (OA), Pneumonia Additional Past Medical History / Comment(s): Afib RVR, home oxygen prn, bronchitis, pt states he is on metformin to prevent becoming diabetic, neuropathy bilateral feet/L hand, chronic pain back,/bilateral hips/knees/elbows and shoulders, L heel pain, FALLS, cataracts. 11/23/22 ex-spouse phylicia Waterman reports history is accurate to her knowledge. current adominal hernia noted History of Any Multi-Drug Resistant Organisms: None Reported Past Surgical History: Appendectomy Additional Past Surgical History / Comment(s): Colonoscopy. 11/23/22 ex-spouse phylicia Waterman reports history is accurate to her knowledge. Past Anesthesia/Blood Transfusion Reactions: No Reported Reaction Past Psychological History: Unable to Obtain, Anxiety, Depression Additional Psychological History / Comment(s): 11/23/22 ex-spouse phylicia Waterman reports history is accurate to her knowledge. Smoking Status: Current every day smoker Past Alcohol Use History: None Reported Additional Past Alcohol Use History / Comment(s): Pt started smoking in 1969 and smokes 2 ppd or a little more. He states he has hx of ETOH abuse but has not drank in a few years. Past Drug Use History: None Reported Additional Drug Use History / Comment(s): Patient reports being a heavy hema mag smoker in the 1969" - Past Family History Father Family Medical History: Congestive Heart Failure (CHF), COPD Additional Family Medical History / Comment(s): Father was an alcoholic but was able to quit drinking Mother Family Medical History: Congestive Heart Failure (CHF), COPD Additional Family Medical History / Comment(s): Mother was an alcoholic. Daughter(s) Additional Family Medical History / Comment(s): Liver cancer Medications and Allergies Home Medications Medication Instructions Recorded Confirmed Type Albuterol Nebulized [Ventolin 2.5 mg INHALATION RT-Q6H PRN 05/08/20 12/31/22 History Nebulized] Apixaban [Eliquis] 5 mg PO BID #60 tab 07/08/20 12/31/22 Rx amLODIPine [Norvasc] 10 mg PO DAILY 01/12/21 12/31/22 History Ipratropium-Albuterol Nebulize 3 ml INHALATION RT-Q6H PRN 05/02/21 12/31/22 History [Duoneb 0.5 mg-3 mg/3 ml Soln] Tamsulosin [Flomax] 0.4 mg PO DAILY 12/07/21 12/31/22 History Albuterol Sulfate [Proair Hfa] 2 puff INHALATION RT-Q6H PRN 02/18/22 12/31/22 History Fluticasone Nasal [place] [Flonase 1 spray EA NOSTRIL Q12H PRN 02/18/22 12/31/22 History Nasal [place]] HYDROcodone/APAP 7.5-325MG [[place] 1 tab PO Q4H PRN 02/18/22 12/31/22 History 7.5-325] Potassium Chloride [Klor-Con 10 ER] 10 meq PO DAILY 02/18/22 12/31/22 History Theophylline Anhydrous 400 mg PO DAILY 02/18/22 12/31/22 History [Theophylline] Escitalopram [Lexapro] 5 mg PO DAILY 08/29/22 12/31/22 History Omeprazole 40 mg PO DAILY 08/29/22 12/31/22 History Metoprolol Tartrate [Lopressor] 50 mg PO BID tab 09/07/22 12/31/22 Rx metFORMIN HCL [Glucophage] 500 mg PO BID tab 09/07/22 12/31/22 Rx predniSONE 5 mg PO DAILY 11/23/22 12/31/22 History Furosemide [Lasix] 40 mg PO BID #60 tab 11/29/22 12/31/22 Rx Melatonin 6 mg PO HS PRN 10 Days #20 tab 11/29/22 12/31/22 Rx Nicotine 21Mg/24Hr Patch [Habitrol] 1 patch TRANSDERM DAILY #3 patch 11/29/22 12/31/22 Rx Spironolactone [Aldactone] 25 mg PO DAILY #30 tab 11/29/22 12/31/22 Rx Atorvastatin Calcium [Lipitor] 40 mg PO HS 12/31/22 12/31/22 History Clopidogrel [Plavix] 75 mg PO DAILY 12/31/22 12/31/22 History DULoxetine HCL [Cymbalta] 30 mg PO DAILY 12/31/22 12/31/22 History Fluticasone/Vilanterol [Breo 1 puff INHALATION RT-DAILY 12/31/22 12/31/22 Hist ory Ellipta 100-25 Mcg Inhaler] Pregabalin [Lyrica] 75 mg PO BID 12/31/22 12/31/22 History Umeclidinium [place] [Incruse 1 puff INHALATION RT-DAILY 12/31/22 12/31/22 History Ellipta] Allergies Allergy/AdvReac Type Severity Reaction Status Date / Time MIGUEL Inhibitors Allergy Unknown - Verified 12/31/22 12:30 per [facility] doxycycline Allergy Anaphylaxis Verified 12/31/22 12:30 Penicillins Allergy Anaphylaxis, Verified 12/31/22 12:30 Seizure Physical Exam Vitals: Vital Signs Temp Pulse Resp BP Pulse Ox 01/03/23 05:41 90 L 01/03/23 04:00 98.5 F 62 14 111/64 95 01/03/23 00:00 99.2 F 68 14 118/78 99 01/02/23 20:00 97.8 F 71 14 117/73 99 01/02/23 16:00 100 16 122/66 96 01/02/23 12:36 96 01/02/23 12:00 79 16 113/69 100 01/02/23 08:00 89 16 131/68 91 L Intake and Output 01/02/23 01/02/23 01/03/23 14:59 22:59 06:59 Intake Total 360 380 Output Total 500 1250 650 Balance -140 -310 650 Intake: Intake, IV Titration 200 Amount ceFAZolin 2 gm In Sodium 200 Chloride 0.9% 50 ml @ 100 mls/hr IVPB Q8HR [facility] Rx# :[id number] Oral 360 180 Output: Urine 500 1250 650 Other: Voiding Method External Catheter Urinal Urinal # Voids 1 # Bowel Movements 1 GENERAL EXAM: Drowsy, but arousable 72-year-old male, comfortable in no apparent distress. HEAD: Normocephalic and atraumatic EYES: Normal reaction of pupils, equal size. NOSE: Clear with pink turbinates. THROAT: No erythema or exudates. Poor dentition NECK: No masses, no JVD. CHEST: No chest wall deformity. LUNGS: Equal air entry with end expiratory wheeze. no crackles, rhonchi or dullness. On 3 L nasal cannula oxygen at 99%. No conversational dyspnea or accessory muscle use.. CVS: S1 and S2 normal with no audible murmur, regular rhythm. No extra heart sounds ABDOMEN: Obese abdomen with a umbilical hernia. No hepatosplenomegaly, active bowel sounds, no guarding or rigidity. SPINE: No scoliosis or deformity SKIN: Bilateral lower extremity erythema CENTRAL NERVOUS SYSTEM: No focal deficits, tone is normal in all 4 extremities. EXTREMITIES: There is bilateral lower extremity pitting edema. No clubbing, or cyanosis. Peripheral pulses are intact. Results - Laboratory Findings CBC and BMP: 01/01/23 08:52 01/02/23 07:40 PT/INR, D-dimer PT 9.4 sec (9.0-12.0) 12/31/22 11:33 INR 0.9 (<1.2) 12/31/22 11:33 Abnormal lab findings: Abnormal Labs 12/31/22 12/31/22 12/31/22 11:33 11:33 16:22 RBC 3.67 L Hgb 10.8 L Hct 33.2 L RDW 18.7 H Neutrophils # 8.0 H Sodium 135 L Potassium Chloride Carbon Dioxide 33 H Creatinine 0.61 L Glucose 119 H POC Glucose (mg/dL) 156 H Calcium C-Reactive Protein Total Protein 5.4 L Albumin 3.1 L 12/31/22 01/01/23 01/01/23 20:02 06:05 08:52 RBC 3.81 L Hgb 11.1 L Hct 34.8 L RDW 18.8 H Neutrophils # Sodium Potassium Chloride Carbon Dioxide Creatinine Glucose POC Glucose (mg/dL) 166 H 166 H Calcium C-Reactive Protein Total Protein Albumin 01/01/23 01/01/23 01/01/23 08:52 11:39 16:42 RBC Hgb Hct RDW Neutrophils # Sodium 135 L Potassium 3.3 L Chloride 92 L Carbon Dioxide 38 H Creatinine Glucose 173 H POC Glucose (mg/dL) 135 H 207 H Calcium 8.1 L C-Reactive Protein 3.7 H Total Protein Albumin 01/01/23 01/02/23 01/02/23 20:02 05:57 07:40 RBC Hgb Hct RDW Neutrophils # Sodium 132 L Potassium Chloride 90 L Carbon Dioxide 38 H Creatinine Glucose POC Glucose (mg/dL) 137 H 131 H Calcium 7.9 L C-Reactive Protein Total Protein Albumin 01/02/23 20:13 RBC Hgb Hct RDW Neutrophils # Sodium Potassium Chloride Carbon Dioxide Creatinine Glucose POC Glucose (mg/dL) 133 H Calcium C-Reactive Protein Total Protein Albumin - Diagnostic Findings Chest x-ray: image reviewed Assessment and Plan Assessment: Acute exacerbation of the patient's known systolic congestive heart failure. Stable severe COPD Chronic hypoxic and hypercapnic respiratory failure secondary to above. Currently on 3 L nasal cannula Possible bilateral lower extremity cellulitis, patient does have history of chronic venous stasis. Tobacco dependence Primary hypertension Chronic atrial fibrillation Diabetes mellitus type 2 with diabetic neuropathy Chronic pain Morbid obesity with a BMI of 38.5 Plan: Patient's medications, labs, chest x-ray reviewed Patient is more alert, responding to questions, and following commands Continue Lasix Repeat chest x-ray this morning Anticoagulated on Eliquis Continue supplemental oxygen Continue Symbicort Continue bronchodilators Nicotine replacement offered Receiving Silvadene and cefazolin We will continue to follow I have personally seen and examined the patient, performed the documentation and the assessment and plan as written. Number of minutes spent on the visit:20 Time with Patient: Greater than 30
[2023-01-03] MEDS: metFORMIN 500 MG TAB PO SCH ×2 (06:59→16:08)
--- NOTE | 2023-01-03 08:06 | XR ---
EXAMINATION TYPE: XR chest 1V portable DATE OF EXAM: 01/03/2023 6:58 AM COMPARISON: Chest radiographs from 12/31/2022 TECHNIQUE: XR chest 1V portable Frontal view of the chest. CLINICAL INDICATION:Male, 72 years old with history of pulmonary edema; FINDINGS: Lungs/Pleura: There is flattening of the diaphragm with increased lucency of the lungs. No evidence o f pneumothorax, pleural effusion or focal consolidation. Pulmonary vascularity: Pulmonary vascular congestion. Heart/mediastinum: Cardiomediastinal silhouette is enlarged and stable. Atherosclerotic calcificatio ns are seen in the aorta. Musculoskeletal: No acute osseous pathology. IMPRESSION: 1. Mild pulmonary vascular congestion. 2. COPD changes.
[2023-01-03] MEDS: SYMBICORT 160-4.5 MCG INHALER INHALATION SCH ×2 (08:28→20:20)
[2023-01-03] MEDS: TAMSULOSIN 0.4 MG CAP.ER.24H PO SCH (08:58)
[2023-01-03] MEDS: APIXABAN 5 MG TAB PO SCH ×2 (08:58→21:07)
[2023-01-03] MEDS: ESCITALOPRAM 5 MG TAB PO SCH (08:58)
[2023-01-03] MEDS: SPIRONOLACTONE 25 MG TAB PO SCH (08:58)
[2023-01-03] MEDS: SENNOSIDES 8.6 MG TAB PO SCH ×2 (08:58→21:07)
[2023-01-03] MEDS: DULoxetine HCL 30 MG CAPSULE.DR PO SCH (08:58)
[2023-01-03] MEDS: METOPROLOL TARTRATE 50 MG TAB PO SCH ×2 (08:58→21:07)
[2023-01-03] MEDS: PREGABALIN 75 MG CAP PO SCH ×2 (08:58→21:07)
[2023-01-03] MEDS: NICOTINE 21MG/24HR PATCH TRANSDERM SCH (08:58)
[2023-01-03 09:01] LABS: African American GFR (CKD) >90 (>60 ml/min/1.73 sqM); Anion Gap 6 mmol/L; Blood Urea Nitrogen 13 mg/dL (9-20); Calcium 8.1 mg/dL (8.4-10.2); Carbon Dioxide 38 mmol/L (22-30); Chloride 89 mmol/L (98-107); Glucose 90 mg/dL (74-99); Non-African American GFR(CKD) >90 (>60 ml/min/1.73 sqM); Potassium 3.6 mmol/L (3.5-5.1); Sodium 133 mmol/L (137-145)
--- NOTE | 2023-01-03 10:28 | CA ---
Transthoracic Echo Report Name: Olegario Villela Age: 72 Gender: M : 1950 Exam Date: 01/03/2023 07:56 Exam Location: [facility] Ht (in): 72 Wt (lb): 284 Ordering Physician: Marylou Morrison Attending/Referring Phys: [id number], [employer] Processing Technologist Janet Tijerina, RDCS Procedure CPT: Indications: chf Cardiac Hx: Technical Quality: Technically difficult study Contrast 1: Lumason Total Dose (mL): 3 Contrast 2: Total Dose (mL): MEASUREMENTS (Male / Female) Normal Values 2D ECHO LV Diastolic Diameter PLAX 5.7 cm 4.2 - 5.9 / 3.9 - 5.3 cm LV Systolic Diameter PLAX 4.5 cm IVS Diastolic Thickness 1.4 cm 0.6 - 1.0 / 0.6 - 0.9 cm LVPW Diastolic Thickness 1.5 cm 0.6 - 1.0 / 0.6 - 0.9 cm LV Relative Wall Thickness 0.5 RV Internal Dim ED PLAX 3.8 cm LA Volume 41.8 cm??? 18 - 58 / 22 - 52 cm??? M-MODE Aortic Root Diameter MM 3.4 cm MV E Point Septal Separation 2.3 cm AV Cusp Separation MM 1.9 cm DOPPLER AV Peak Velocity 122.1 cm/s AV Peak Gradient 6.0 mmHg MV Area PHT 6.3 cm??? MV Deceleration Time 160.9 ms MV E' Velocity 10.4 cm/s TR Peak Velocity 324.6 cm/s TR Peak Gradient 42.2 mmHg Right Ventricular Systolic Press 47.2 mmHg FINDINGS Left Ventricle Left ventricular ejection fraction is estimated at 40-45 %. Left ventricular cavity size normal. Moderate concentric left ventricular hypertrophy. Right Ventricle Mild right ventricular dilatation. Moderate pulmonary hypertension. Right Atrium Normal right atrial size. Left Atrium Normal left atrial size. Mitral Valve Structurally normal mitral valve. Mild mitral annular calcification. Aortic Valve Aortic valve not well visualized. No aortic valve stenosis or regurgitation. Tricuspid Valve Structurally normal tricuspid valve. Mild tricuspid regurgitation. Pulmonic Valve Structurally normal pulmonic valve. No pulmonic regurgitation. Pericardium Small pericardial effusion. Aorta Normal size aortic root and proximal ascending aorta. CONCLUSIONS Impaired LV function with EF between 40-45% Moderate concentric LVH Moderate pulmonary hypertension Mildly dilated right ventricle Previewed by: Dr. Talha Infante MD (Electronically Signed) Final Date: 03 January 2023 10:27
--- NOTE | 2023-01-03 11:18 | P.PN ---
Subjective Progress Note Date: 01/03/23 Principal diagnosis: Bilateral lower extremity cellulitis Patient is a 72-year-old male with a past medical history significant for atrial fibrillation diabetes mellitus COPD hypertension hyperlipidemia and diabetic neuropathy patient did have a history of bilateral lower extremity venous stasis ulceration and cellulitis, patient presenting to the hospital for evaluation of increasing shortness of breath and bilateral extremity swelling, and concern for bilateral lower extremity cellulitis On today's evaluation that is 01/03/2023, the patient remains to be afebrile, the patient is breathing comfortably on 2 L nasal cannula oxygen, no chest pain occasional cough no abdominal pain, swelling and pain to the lower extremity has decreased Objective - Vital Signs Vital signs: Vital Signs Temp 97.3 F L 01/03/23 08:00 Pulse 75 01/03/23 08:00 Resp 18 01/03/23 08:00 BP 106/70 01/03/23 08:00 Pulse Ox 95 01/03/23 08:00 FiO2 Intake & Output 01/02/23 01/03/23 01/03/23 18:59 06:59 18:59 Intake Total 740 360 Output Total 1450 950 Balance -710 -950 360 Intake: Intake, IV Titration 200 Amount ceFAZolin 2 gm In Sodium 200 Chloride 0.9% 50 ml @ 100 mls/hr IVPB Q8HR [facility] Rx# :[id number] Oral 540 360 Output: Urine 1450 950 Other: Voiding Method External Catheter Urinal # Voids 1 # Bowel Movements 1 - Exam GENERAL DESCRIPTION: An elderly male up in the chair in no distress RESPIRATORY SYSTEM: Unlabored breathing , decreased breath sounds at bases HEART: S1 S2 regular rate and rhythm , ABDOMEN: Soft no tenderness EXTREMITIES: Bilateral laser currently wrapped in Miguel wrap no drainage of the dressing, and redness decreased - Labs CBC & Chem 7: 01/01/23 08:52 01/03/23 07:16 Labs: Abnormal Lab Results - Last 24 Hours (Table) 01/02/23 01/03/23 Range/Units 20:13 07:16 Sodium 133 L (137-145) mmol/L Chloride 89 L (98-107) mmol/L Carbon Dioxide 38 H (22-30) mmol/L POC Glucose (mg/dL) 133 H (70-110) mg/dL Calcium 8.1 L (8.4-10.2) mg/dL Assessment and Plan (1) Bilateral lower leg cellulitis Current Visit: Yes Status: Acute Code(s): L03.116 - CELLULITIS OF LEFT LOWER LIMB; L03.115 - CELLULITIS OF RIGHT LOWER LIMB SNOMED Code(s): 654290334 Plan: 1patient was in the hospital with increasing shortness of breath also with increasing bilateral lower extremity swelling superficial ulceration, patient did have evidence of erythema warm to touch elevated inflammatory markers and a left shift on WBC of concern for possible cellulitis likely from gram-positive skin xu. 2patient with multiple antibiotic allergies that would limit the number of antibiotics safe to use 3-patient seemed to have some clinical improvement and will continue cefazolin 2 g every 8 hours and continue with Miguel wrap to the leg to keep the swelling down, patient did have multiple questions concerned those were answered Time with Patient: Less than 30
[2023-01-03 11:25] LABS: Glucose,Whole Blood 239 mg/dL (70-110)
[2023-01-03] MEDS: DAPAGLIFLOZIN PROPANEDIOL 10 MG TABLET PO SCH (12:20)
[2023-01-03 16:25] LABS: Glucose,Whole Blood 104 mg/dL (70-110)
--- NOTE | 2023-01-03 19:15 | P.PN ---
Subjective HISTORY OF PRESENTING ILLNESS Progress Note Date: 01/02/23 This is 72-year-old gentleman who is somewhat of a poor historian. Has a history of hypertension, COPD requiring home oxygen, atrial fibrillation that is chronic and he is anticoagulated, type 2 diabetes, hypertension, hyperlipidemia 2 packs per day smoking which he quit 10 days ago. Had a recent admission last month for lower extremity edema and shortness of breath but did not follow-up. Had an echocardiogram with Doppler study done in February 2022 which showed an ejection fraction of 40-45% with mild TR. According to the patient he underwent cardiac catheterization many years ago in [place] showed no evidence of CAD. He does not follow with a public relations assistant. Presented for progressively worsening lower extremity edema. He feels his breathing has been better since he quit smo isidro. He does not follow a low-sodium diet. He feels he has been compliant with his medications at home. Chest x-ray on admission showed findings suggestive of mild pulmonary edema. EKG showed atrial fibrillation with controlled ventricular response. BS duplex study was negative for DVTs. Labs showed a hemoglobin of 10.8, sodium 135, potassium is morning 3.3, normal renal function. Troponin negative 1. NT proBNP 585. Total protein and albumin low. He is currently on Lasix 80 mg by mouth every 8 hours was on 40 mg by mouth twice a day at home. Denies any current or recent complaints of chest discomfort. Denies any dizziness or lightheadedness. He's had no syncope. He denies any PND. 01/02/2023 Patient was seen and examined resting comfortably in a recliner. He overall says he doesn't feel any better and doesn't think his edema has improved but that the edema doesn't appear to be significantly improved compared to yesterday. Echocardiogram is pending. He remains on IV Lasix 40 mg every 8 hours. Renal function is stable. 01/03 Patient seen and examined. Patient states he has a good urine output. Echocardiogram performed and shows left ventricular ejection fraction 40-45% with mild LVH, RVSP 47, mild tricuspid regurgitation and small pericardial effusion. Patient on good heart failure regimen with Farxiga, Lasix 40 mg IV every 8 hours, metoprolol 50 mg twice a day, spironolactone. Creatinine stable 0.7. PHYSICAL EXAMINATION Vital signs reviewed. CONSTITUTIONAL: No apparent distress. HEENT: Head is normocephalic. Pupils are equal, round. Sclerae anicteric. Mucous membranes of the mouth are moist. No JVD. No carotid bruit. CHEST EXAMINATION: Lungs are clear to auscultation. No chest wall tenderness is noted on palpation or with deep breathing. HEART EXAMINATION: Regular rate and rhythm. S1, S2 heard. No murmurs, gallops or rub. ABDOMEN: Soft, nontender. Positive bowel sounds. EXTREMITIES: 2+ peripheral pulses, no lower extremity edema and no calf tenderness. NEUROLOGIC EXAMINATION: Patient is awake, alert and oriented x3. Assessment: #1 lower extremity edema with normal BNP which could be somewhat inaccurate due to patient's underlying obesity #2 chronic atrial fibrillation #3 hypertension #4 hyperlipidemia #5 COPD #6 diabetes mellitus 7 nicotine dependence #8 noncompliant Plan: Patient appears to be improving with similar cardiomyopathy ejection fraction 40-45% and has had good urine output with diuretics. Continue IV Lasix for another day and monitor response. Ideally losartan or Entresto however evaluate what allergy to ACEi is. Hopeful DC tomorrow if continues to improve. Objective - Vital Signs Vital signs: Vital Signs Temp 97.3 F L 01/03/23 08:00 Pulse 79 01/03/23 16:00 Resp 18 01/03/23 16:00 BP 115/59 01/03/23 16:00 Pulse Ox 95 01/03/23 16:00 FiO2 Intake & Output 01/03/23 01/03/23 01/04/23 06:59 18:59 06:59 Intake Total 600 Output Total 950 Balance -950 600 Intake: Oral 600 Output: Urine 950 Other: Voiding Method Urinal # Voids 1 - Labs CBC & Chem 7: 01/01/23 08:52 01/03/23 07:16 Labs: Abnormal Lab Results - Last 24 Hours (Table) 01/02/23 01/03/23 01/03/23 Range/Units 20:13 07:16 11:24 Sodium 133 L (137-145) mmol/L Chloride 89 L (98-107) mmol/L Carbon Dioxide 38 H (22-30) mmol/L POC Glucose (mg/dL) 133 H 239 H (70-110) mg/dL Calcium 8.1 L (8.4-10.2) mg/dL
[2023-01-03 19:52] LABS: Glucose,Whole Blood 163 mg/dL (70-110)
[2023-01-03] MEDS: ATORVASTATIN 40 MG TAB PO SCH (21:07)
[2023-01-04] MEDS: HYDROcodone/APAP 7.5-325MG 1 EACH TAB PO PRN ×5 (01:18→21:22)
--- NOTE | 2023-01-04 06:09 | P.PN ---
Subjective Progress Note Date: 01/03/23 This is a pleasant 71 years old male with multiple medical problems including COPD, diabetes mellitus, hypertension, hyperlipidemia, osteoarthritis, GERD, diabetic neuropathy, chronic back pain, joint disease and falls He was recently in the hospital for COPD exacerbation and bilateral lower extremity edema and chronic CHF Patient presents because of bilateral patellar leg edema swelling and redness a nd erythema slowly get worse. He denies dyspnea. No chest pain. No change in urine or bowel habits Denies smoking alcohol or illicit drugs He is on 3 L oxygen at home. He is also on a prednisone 5 mg daily placed by his PCP Dr. Alfredo Vitals are stable Labs showing mild anemia with hemoglobin 10.8, rest of CBC, BMP and liver enzymes are unremarkable. Troponin is negative. Chest x-ray: Findings are consistent with mild pulmonary congestion EKG showing atrial fibrillation with controlled rate at [address]-T changes and QTC 422. 01/01/2023 Patient with bilateral leg swelling and redness but likely secondary to medication effect as well as mild diastolic CHF. I don't think the patient has actual infection or cellulitis. Patient has good urine output on 80 mg by mouth every 8 hours. This was transcribed goes by services clerk Also patient placed on cefazolin by ID team Continue to discontinue Norvasc and prednisone. 01/02/2023 Patient has no new complaint His leg swelling is improving slowly and gradually, both legs are wrapped with Miguel bandage today He remains on IV Lasix 80 mg 3 times a day and cefazolin DC Norvasc and prednisone Is also on the farxiga 01/03/2023 Patient is seen in follow-up today sleeping although easily arousable being followed by cardiology along with pulmonary and infectious disease. Patient is maintained on IV cefazolin with concerns of cellulitis of bilateral lower extremities. Patient does have chronic venous stasis along with generalized edema and edema is significantly improved. No active drainage noted and will continue IV cefazolin. Patient with chronic COPD as well as chest pain and shortness of breath being evaluated by cardiology and pulmonary recommend to continue with breathing treatments and will continue oral prednisone. Patient continues to endorse poor nail hygiene requesting podiatry to address this. Johanna burnett was consulted and evaluated by podiatry initially and will need outpatient follow-up to perform this is extensive nail care. This was discussed with the patient. Patient to continue on IV Lasix and will follow-up with repeat labs. To discuss further with pulmonary as well as cardiology about discharge planning. Review of systems: Constitutional: No reports of fatigue, fever, or chills Cardiovascular: No reports of chest pain or palpitations Respiratory: reports of shortness of breath feels improved GI: No reports of nausea, vomiting, or diarrhea : No reports of dysuria or retention Neurovascular: reports of generalized weakness and difficulty walking due to his continued swelling of the lower extremities and poorly kept toenails All medications have been reviewed Active Medications Acetaminophen (Acetaminophen Tab 325 Mg Tab) 650 mg PO Q6HR PRN PRN Reason: Fever and/ or Pain Last Admin: 01/02/23 06:09 Dose: 650 mg Hydrocodone Bitart/Acetaminophen (Hydrocodone/Apap 7.5-325mg 1 Each Tab) 1 each PO Q4H PRN PRN Reason: Pain Last Admin: 01/03/23 16:08 Dose: 1 each Albuterol/Ipratropium (Ipratropium-Albuterol 3 Ml Neb) 3 ml INHALATION RT-Q6H PRN PRN Reason: Shortness Of Breath Or Wheezing Last Admin: 01/01/23 07:57 Dose: 3 ml Apixaban (Apixaban 5 Mg Tab) 5 mg PO BID [facility]; Protocol Last Admin: 01/03/23 08:58 Dose: 5 mg Atorvastatin Calcium (Atorvastatin 40 Mg Tab) 40 mg PO HS [facility] Last Admin: 01/02/23 20:31 Dose: 40 mg Budesonide/Formoterol Fumarate (Symbicort 160-4.5 Mcg Inhaler) 2 puff INHALATION RT-BID [facility] Last Admin: 01/03/23 08:28 Dose: 2 puff Dapagliflozin (Dapagliflozin Propanediol 10 Mg Tablet) 10 mg PO DAILY [facility] Last Admin: 01/03/23 12:20 Dose: 10 mg Duloxetine HCl (Duloxetine Hcl 30 Mg Capsule.Dr) 30 mg PO DAILY [facility] Last Admin: 01/03/23 08:58 Dose: 30 mg Escitalopram Oxalate (Escitalopram 5 Mg Tab) 5 mg PO DAILY [facility] Last Admin: 01/03/23 08:58 Dose: 5 mg Fluticasone Propionate (Fluticasone 50mcg/[place] Nasal 16gm) 1 spray EA NOSTRIL Q12H PRN PRN Reason: nasal drainage Furosemide (Furosemide 10 Mg/Ml 4 Ml Vial) 40 mg IV Q8HR [facility] Last Admin: 01/03/23 16:08 Dose: 40 mg Cefazolin Sodium 2 gm/ Sodium (Chloride) 50 mls @ 100 mls/hr IVPB Q8HR [facility]; Protocol Last Admin: 01/03/23 16:09 Dose: 100 mls/hr Melatonin (Melatonin 3 Mg Tablet) 6 mg PO HS PRN PRN Reason: Insomnia Metformin HCl (Metformin 500 Mg Tab) 500 mg PO BID-W/MEALS [facility] Last Admin: 01/03/23 16:08 Dose: 500 mg Metoprolol Tartrate (Metoprolol Tartrate 50 Mg Tab) 50 mg PO BID [facility] Last Admin: 01/03/23 08:58 Dose: 50 mg Miscellaneous Information (Potassium Replacement Protocol 1 Each Misc) 1 each MISCELLANE DAILY PRN; Protocol PRN Reason: Per Protocol Nicotine (Nicotine 21mg/24hr Patch) 1 patch TRANSDERM DAILY [facility] Last Admin: 01/03/23 08:58 Dose: 1 patch Pregabalin (Pregabalin 75 Mg Cap) 75 mg PO BID [facility] Last Admin: 01/03/23 08:58 Dose: 75 mg Senna (Sennosides 8.6 Mg Tab) 8.6 mg PO BID [facility] Last Admin: 01/03/23 08:58 Dose: 8.6 mg Silver Sulfadiazine (Silver Sulfadiazine 1% Cream 25 Gm Tube) 1 applic TOPICAL DAILY [facility]; Protocol Last Admin: 01/03/23 10:45 Dose: 1 applic Spironolactone (Spironolactone 25 Mg Tab) 25 mg PO DAILY [facility] Last Admin: 01/03/23 08:58 Dose: 25 mg Tamsulosin HCl (Tamsulosin 0.4 Mg Cap.Er.24h) 0.4 mg PO DAILY [facility] Last Admin: 01/03/23 08:58 Dose: 0.4 mg Physical exam: GENERAL: The patient is alert and oriented x3, not in any acute distress. Well developed, well nourished. HEENT: Pupils are round and equally reacting to light. EOMI. No scleral icterus. No conjunctival pallor. Normocephalic, atraumatic. No pharyngeal erythema. No thyromegaly. CARDIOVASCULAR: S1 and S2 present. No murmurs, rubs, or gallops. PULMONARY: Chest is clear to auscultation, no wheezing or crackles. ABDOMEN: Soft, nontender, nondistended, normoactive bowel sounds. No palpable organomegaly. MUSCULOSKELETAL: No joint swelling or deformity. -EXTREMITIES: No cyanosis, clubbing, bilateral pitting like and pedal edema. Red and swollen but nontender not warm, but nails are overgrown NEUROLOGICAL: Gross neurological examination did not reveal any focal deficits. SKIN: No rashes. no petechiae. Assessment: Acute on chronic diastolic CHF Bilateral pitting leg edema, acute on chronic chronic atrial fibrillation on Eliquis and the rate is controlled Chronic hypoxic respiratory failure with related to her oxygen via nasal cannula Diabetes mellitus Hypertension Hyperlipidemia History of osteoarthritis History of GERD Diabetic neuropathy of feet and hands Chronic back pain Polyarthralgia History of falls History of anxiety and depression, not in activation Obese with BMI 38.5 GI prophylaxis, DVT prophylaxis No code Plan: Recommend continue current medications and management with pulmonary and cardiology following. Infectious disease following as well and maintained on IV cefazolin Recommend continue with Miguel wrapping to lower extremities and local wound care. Patient was evaluated initially by podiatry and will need outpatient follow-up for is extensive poor nail care on bilateral lower extremities. Patient is continued on IV Lasix along with DuoNeb treatments. Patient of chronic hypoxic respiratory failure maintained on 3 L outpatient currently on 2 L Patient reports shortness of breath is somewhat improved continuing to report is lower extremity edema and difficulty in walking Awaiting PT/OT therapy evaluation. Given patient's significant comorbidities and noncompliance, prognosis is guarded The impression and plan of care has been dictated by Ange Becerra, Nurse Practitioner as directed. Dr. Xu MD I have performed a history and examination and MDM of this patient, discussed the same with the dictator, and agree with the dictator's assessment and plan as written ,documented as a scribe. Based on total visit time, I have performed more than 50% of the visit. Objective - Vital Signs Vital signs: Vital Signs Temp 97.3 F L 01/03/23 08:00 Pulse 75 01/03/23 08:00 Resp 18 01/03/23 08:00 BP 106/70 01/03/23 08:00 Pulse Ox 95 01/03/23 08:00 FiO2 Intake & Output 01/02/23 01/03/23 01/03/23 18:59 06:59 18:59 Intake Total 740 360 Output Total 1450 950 Balance -710 -950 360 Intake: Intake, IV Titration 200 Amount ceFAZolin 2 gm In Sodium 200 Chloride 0.9% 50 ml @ 100 mls/hr IVPB Q8HR [facility] Rx# :[id number] Oral 540 360 Output: Urine 1450 950 Other: Voiding Method External Catheter Urinal # Voids 1 # Bowel Movements 1 - Labs CBC & Chem 7: 01/01/23 08:52 01/03/23 07:16 Labs: Abnormal Lab Results - Last 24 Hours (Table) 01/02/23 01/03/23 Range/Units 20:13 07:16 Sodium 133 L (137-145) mmol/L Chloride 89 L (98-107) mmol/L Carbon Dioxide 38 H (22-30) mmol/L POC Glucose (mg/dL) 133 H (70-110) mg/dL Calcium 8.1 L (8.4-10.2) mg/dL
[2023-01-04 06:15] LABS: Glucose,Whole Blood 120 mg/dL (70-110)
[2023-01-04] MEDS: metFORMIN 500 MG TAB PO SCH ×2 (06:27→17:36)
[2023-01-04 09:00] LABS: African American GFR (CKD) >90 (>60 ml/min/1.73 sqM); Blood Urea Nitrogen 13 mg/dL (9-20); Calcium 8.3 mg/dL (8.4-10.2); Chloride 91 mmol/L (98-107); Glucose 107 mg/dL (74-99); Non-African American GFR(CKD) >90 (>60 ml/min/1.73 sqM); Potassium 3.5 mmol/L (3.5-5.1); Sodium 135 mmol/L (137-145)
[2023-01-04 09:07] LABS: Anion Gap 6 mmol/L
[2023-01-04 09:09] LABS: Carbon Dioxide 38 mmol/L (22-30)
[2023-01-04 09:22] LABS: Anisocytosis Slight; Basophils % (A) 0 %; Eosinophils # (A) 0.1 k/uL (0-0.7); Eosinophils % (A) 2 %; HCT 34.2 % (39.0-53.0); HGB 11.1 gm/dL (13.0-17.5); Lymphocytes # (A) 1.6 k/uL (1.0-4.8); Lymphocytes % (A) 21 %; MCH 28.5 pg (25.0-35.0); MCHC 32.5 g/dL (31.0-37.0); MCV 87.9 fL (80.0-100.0); Mean Platelet Volume 7.5; Monocytes # (A) 0.6 k/uL (0-1.0); Monocytes % (A) 8 %; Neutrophils % (A) 66 %; Platelet Count 258 k/uL (150-450); Poikilocytosis Slight; RBC 3.89 m/uL (4.30-5.90); RDW 18.8 % (11.5-15.5); WBC 7.6 k/uL (3.8-10.6)
[2023-01-04] MEDS: SYMBICORT 160-4.5 MCG INHALER INHALATION SCH ×2 (10:02→21:06)
[2023-01-04] MEDS: SENNOSIDES 8.6 MG TAB PO SCH ×2 (10:20→20:19)
[2023-01-04] MEDS: SPIRONOLACTONE 25 MG TAB PO SCH (10:20)
[2023-01-04] MEDS: METOPROLOL TARTRATE 50 MG TAB PO SCH ×2 (10:20→20:19)
[2023-01-04] MEDS: PREGABALIN 75 MG CAP PO SCH ×2 (10:20→20:19)
[2023-01-04] MEDS: ESCITALOPRAM 5 MG TAB PO SCH (10:20)
[2023-01-04] MEDS: FUROSEMIDE 10 MG/ML 4 ML VIAL IV SCH (10:20)
[2023-01-04] MEDS: DAPAGLIFLOZIN PROPANEDIOL 10 MG TABLET PO SCH (10:20)
[2023-01-04] MEDS: APIXABAN 5 MG TAB PO SCH ×2 (10:20→20:19)
[2023-01-04] MEDS: TAMSULOSIN 0.4 MG CAP.ER.24H PO SCH (10:20)
[2023-01-04] MEDS: NICOTINE 21MG/24HR PATCH TRANSDERM SCH (10:21)
[2023-01-04] MEDS: DULoxetine HCL 30 MG CAPSULE.DR PO SCH (10:21)
[2023-01-04 11:47] LABS: Glucose,Whole Blood 97 mg/dL (70-110)
--- NOTE | 2023-01-04 12:46 | P.PN ---
Subjective Progress Note Date: 01/04/23 I'm seeing this patient in new consultation today 01/03/2023 for an acute exacerbation of the patient's systolic congestive heart failure. Patient is a 72-year-old white male with history of multiple medical problems including severe COPD, 3 L nasal cannula oxygen dependence, systolic congestive heart fa ilure, chronic atrial fibrillation, hypertension, diabetes mellitus, degenerative joint disease, current smoker. Patient has had multiple admissions over the past year. He was recently discharged home on 11/29/2022 after treatment for an acute COPD exacerbation. He does not follow up in the office. Patient did come back to the emergency room on 12/31/2022 stating that he is unable to take care of himself because his legs are swollen and he cannot move around. Bilateral lower extremity venous Dopplers were negative for DVT. Ankle branchial index was a suboptimal study and follow-up was recommended. There was at least moderate peripheral arterial disease identified. Chest x-ray on admi ssion showed pulmonary vascular congestion and increased interstitial opacities bilaterally. No focal consolidation noted. An echocardiogram is pending. NT proBNP was non-elevated on admission at 585. Patient is receiving Lasix 40 mg 3 times a day and Aldactone. Most recent CBC from 2 days ago was unremarkable. Patient's BMP from yesterday showed a sodium 132, potassium 3.9, chloride 90, serum CO2 chronically elevated at 38, BUN 14, creatinine 0.76, glucose 133. Troponin negative 1. We were consulted earlier this morning due to the patient having increasing lethargy. The patient is currently lying in bed, on 3 L nasal cannula, in no acute distress. Oxygenating at 99%. He does awaken and answer questions. He is oriented to self and place. He is asking for Ada. He denies any shortness breath, cough, fever, chest pain. He also denies any palpitations or syncope. His legs are currently wrapped with Miguel wrap, swollen, and erythemic. Patient denies any recent injury or trauma to his lower extremities. Currently has Silvadene cream and IV cefazolin ordered. Vital signs are stable. The patient is seen today 01/04/2023 in follow-up on the selective care unit. He is currently resting comfortably in bed. Awake and alert in no acute distress. Denies any worsening shortness of breath, cough or congestion. Chest x-ray reveals mild pulmonary vascular congestion. Evidence of COPD. No infiltrate or opacities. He is complaining of some lower extremity pain and burning that is being monitored by infectious disease. His legs remain wrapped in Miguel wraps with swelling and some erythema. Remains on Silvadene cream and IV cefazolin. White count 7.6. Hemoglobin 11.1. Platelet count 258. Sodium 135. Potassium 3.5. Bicarb 38. BUN 13. Creatinine 0.77. Glucose 107. He remains on DuoNeb inhalations, Symbicort. Remains on IV diuretics. Currently in a positive balance. NicoDerm patch in place. Objective - Vital Signs Vital signs: Vital Signs Temp 98.3 F 01/04/23 08:00 Pulse 73 01/04/23 08:00 Resp 18 01/04/23 08:00 BP 115/76 01/04/23 08:00 Pulse Ox 97 01/04/23 08:00 FiO2 Intake & Output 01/03/23 01/04/23 01/04/23 18:59 06:59 18:59 Intake Total 600 540 480 Output Total 850 Balance 600 -310 480 Weight 112.9 kg Intake: Oral 600 540 480 Output: Urine 850 Other: Voiding Method Urinal # Bowel Movements 0 - Exam GENERAL EXAM: Awake, alert, obese 72-year-old male, on 2 L nasal cannula, comfortable in no apparent distress. HEAD: Normocephalic and atraumatic EYES: Normal reaction of pupils, equal size. NOSE: Clear with pink turbinates. THROAT: No erythema or exudates. Poor dentition NECK: No masses, no JVD. CHEST: No chest wall deformity. LUNGS: Equal air entry with end expiratory wheeze. no crackles, rhonchi or dullness. No conversational dyspnea or accessory muscle use. CVS: S1 and S2 normal with no audible murmur, regular rhythm. No extra heart sounds ABDOMEN: Obese abdomen with a umbilical hernia. No hepatosplenomegaly, active bowel sounds, no guarding or rigidity. SPINE: No scoliosis or deformity SKIN: Bilateral lower extremity erythema CENTRAL NERVOUS SYSTEM: No focal deficits, tone is normal in all 4 extremities. EXTREMITIES: There is bilateral lower extremity pitting edema. No clubbing, or cyanosis. Peripheral pulses are intact. - Labs CBC & Chem 7: 01/04/23 08:20 01/04/23 08:20 Labs: Abnormal Lab Results - Last 24 Hours (Table) 01/03/23 01/04/23 01/04/23 Range/Units 19:48 06:13 08:20 RBC 3.89 L (4.30-5.90) m/uL Hgb 11.1 L (13.0-17.5) gm/dL Hct 34.2 L (39.0-53.0) % RDW 18.8 H (11.5-15.5) % Sodium (137-145) mmol/L Chloride (98-107) mmol/L Carbon Dioxide (22-30) mmol/L Glucose (74-99) mg/dL POC Glucose (mg/dL) 163 H 120 H (70-110) mg/dL Calcium (8.4-10.2) mg/dL 01/04/23 Range/Units 08:20 RBC (4.30-5.90) m/uL Hgb (13.0-17.5) gm/dL Hct (39.0-53.0) % RDW (11.5-15.5) % Sodium 135 L (137-145) mmol/L Chloride 91 L (98-107) mmol/L Carbon Dioxide 38 H (22-30) mmol/L Glucose 107 H (74-99) mg/dL POC Glucose (mg/dL) (70-110) mg/dL Calcium 8.3 L (8.4-10.2) mg/dL Assessment and Plan Assessment: Acute exacerbation of the patient's known systolic congestive heart failure. Stable severe COPD Chronic hypoxic and hypercapnic respiratory failure secondary to above. Currently on 3 L nasal cannula Possible bilateral lower extremity cellulitis, patient does have history of chronic venous stasis. Tobacco dependence Primary hypertension Chronic atrial fibrillation, anticoagulated with Eliquis Diabetes mellitus type 2 with diabetic neuropathy Chronic pain Morbid obesity with a BMI of 38.5 Plan: The patient was seen and evaluated Chest x-ray, labs and medications reviewed Stable from the pulmonary standpoint Continued on antibiotics Continued on bronchodilators Continued on diuretics Titrate the FiO2 as tolerated Educated regarding the importance of complete smoking cessation NicoDerm patch is applied We will continue to follow I have personally seen and examined the patient, performed the documentation and the assessment and plan as written. Number of minutes spent on the visit: 10.
[2023-01-04 16:32] LABS: Glucose,Whole Blood 181 mg/dL (70-110)
[2023-01-04] MEDS: FUROSEMIDE 40 MG TAB PO SCH (17:36)
[2023-01-04] MEDS: CEPHALEXIN 500 MG CAP PO SCH ×2 (17:36→20:19)
--- NOTE | 2023-01-04 19:33 | P.PN ---
Subjective Progress Note Date: 01/04/23 This is 72-year-old gentleman who is somewhat of a poor historian. Has a history of hypertension, COPD requiring home oxygen, atrial fibrillation that is chronic and he is anticoagulated, type 2 diabetes, hypertension, hyperlipidemia 2 packs per day smoking which he quit 10 days ago. Had a recent admission last month for lower extremity edema and shortness of breath but did not follow-up. Had an echocardiogram with Doppler study done in February 2022 which showed an ejection fraction of 40-45% with mild TR. According to the patient he underwent cardiac catheterization many years ago in [place] showed no evidence of CAD. He does not follow with a wiener packer. Presented for progressively worsening lower extremity edema. He feels his breathing has been better since he quit smoking. He does not follow a low-sodium diet. He feels he has been compliant with his medications at home. Chest x-ray on admission showed findings suggestive of mild pulmonary edema. EKG showed atrial fibrillation with controlled ventricular response. BS duplex study was negative for DVTs. Labs showed a hemoglobin of 10.8, sodium 135, potassium is morning 3.3, normal renal function. Troponin negative 1. NT proBNP 585. Total protein and albumin low. He is currently on Lasix 80 mg by mouth every 8 hours was on 40 mg by mouth twice a day at home. Denies any current or recent complaints of chest discomf ort. Denies any dizziness or lightheadedness. He's had no syncope. He denies any PND. 01/02/2023 Patient was seen and examined resting comfortably in a recliner. He overall says he doesn't feel any better and doesn't think his edema has improved but that the edema doesn't appear to be significantly improved compared to yesterday. Echocardiogram is pending. He remains on IV Lasix 40 mg every 8 hours. Renal function is stable. 01/03 Patient seen and examined. Patient states he has a good urine output. Echocardiogram performed and shows left ventricular ejection fraction 40-45% with mild LVH, RVSP 47, mild tricuspid regurgitation and small pericardial effusion. Patient on good heart failure regimen with Farxiga, Lasix 40 mg IV every 8 hours, metoprolol 50 mg twice a day, spironolactone. Creatinine stable 0.7. 01/04 Pt reports swelling has improved. Breathing is better. Denies chest pain. PHYSICAL EXAMINATION Vital signs reviewed. CONSTITUTIONAL: No apparent distress. HEENT: Head is normocephalic. Pupils are equal, round. Sclerae anicteric. Mucous membranes of the mouth are moist. No JVD. No carotid bruit. CHEST EXAMINATION: Lungs are clear to auscultation. No chest wall tenderness is noted on palpation or with deep breathing. HEART EXAMINATION: Regular rate and rhythm. S1, S2 heard. No murmurs, gallops or rub. ABDOMEN: Soft, nontender. Positive bowel sounds. EXTREMITIES: 2+ peripheral pulses, trace lower extremity edema and no calf tenderness. BLE wrapped. NEUROLOGIC EXAMINATION: Patient is awake, alert and oriented x3. Assessment: #1 lower extremity edema with normal BNP which could be somewhat inaccurate due to patient's underlying obesity #2 chronic atrial fibrillation #3 hypertension #4 hyperlipidemia #5 COPD #6 diabetes mellitus #7 nicotine dependence #8 noncompliant #9 Cardiomyopathy, EF 40-45% Plan: He is doing well. Change lasix to PO. Creatinine is stable at 0.7. He pending rehab placement. OK to DC from cardiology standpoint. Call with any questions. Objective - Vital Signs Vital signs: Vital Signs Temp 98.3 F 01/04/23 08:00 Pulse 76 01/04/23 16:00 Resp 18 01/04/23 16:00 BP 123/76 01/04/23 16:00 Pulse Ox 98 01/04/23 16:00 FiO2 Intake & Output 01/04/23 01/04/23 01/05/23 06:59 18:59 06:59 Intake Total 540 838 Output Total 850 700 Balance -310 138 Weight 112.9 kg Intake: Oral 540 838 Output: Urine 850 700 Other: Voiding Method Urinal # Bowel Movements 0 - Labs CBC & Chem 7: 01/04/23 08:20 01/04/23 08:20 Labs: Abnormal Lab Results - Last 24 Hours (Table) 01/03/23 01/04/23 01/04/23 Range/Units 19:48 06:13 08:20 RBC 3.89 L (4.30-5.90) m/uL Hgb 11.1 L (13.0-17.5) gm/dL Hct 34.2 L (39.0-53.0) % RDW 18.8 H (11.5-15.5) % Sodium (137-145) mmol/L Chloride (98-107) mmol/L Carbon Dioxide (22-30) mmol/L Glucose (74-99) mg/dL POC Glucose (mg/dL) 163 H 120 H (70-110) mg/dL Calcium (8.4-10.2) mg/dL 01/04/23 01/04/23 Range/Units 08:20 16:29 RBC (4.30-5.90) m/uL Hgb (13.0-17.5) gm/dL Hct (39.0-53.0) % RDW (11.5-15.5) % Sodium 135 L (137-145) mmol/L Chloride 91 L (98-107) mmol/L Carbon Dioxide 38 H (22-30) mmol/L Glucose 107 H (74-99) mg/dL POC Glucose (mg/dL) 181 H (70-110) mg/dL Calcium 8.3 L (8.4-10.2) mg/dL
[2023-01-04] MEDS: ATORVASTATIN 40 MG TAB PO SCH (20:19)
[2023-01-04 20:27] LABS: Glucose,Whole Blood 140 mg/dL (70-110)
[2023-01-04] MEDS: IPRATROPIUM-ALBUTEROL 3 ML NEB INHALATION PRN (21:07)
[2023-01-05] MEDS: HYDROcodone/APAP 7.5-325MG 1 EACH TAB PO PRN ×4 (02:53→20:41)
--- NOTE | 2023-01-05 05:46 | P.PN ---
Subjective Progress Note Date: 01/04/23 This is a pleasant 71 years old male with multiple medical problems including COPD, diabetes mellitus, hypertension, hyperlipidemia, osteoarthritis, GERD, diabetic neuropathy, chronic back pain, joint disease and falls He was recently in the hospital for COPD exacerbation and bilateral lower extremity edema and chronic CHF Patient presents because of bilateral patellar leg edema swelling and redness a nd erythema slowly get worse. He denies dyspnea. No chest pain. No change in urine or bowel habits Denies smoking alcohol or illicit drugs He is on 3 L oxygen at home. He is also on a prednisone 5 mg daily placed by his PCP Dr. Alfredo Vitals are stable Labs showing mild anemia with hemoglobin 10.8, rest of CBC, BMP and liver enzymes are unremarkable. Troponin is negative. Chest x-ray: Findings are consistent with mild pulmonary congestion EKG showing atrial fibrillation with controlled rate at [address]-T changes and QTC 422. 01/01/2023 Patient with bilateral leg swelling and redness but likely secondary to medication effect as well as mild diastolic CHF. I don't think the patient has actual infection or cellulitis. Patient has good urine output on 80 mg by mouth every 8 hours. This was transcribed goes by recruitment internship Also patient placed on cefazolin by ID team Continue to discontinue Norvasc and prednisone. 01/02/2023 Patient has no new complaint His leg swelling is improving slowly and gradually, both legs are wrapped with Miguel bandage today He remains on IV Lasix 80 mg 3 times a day and cefazolin DC Norvasc and prednisone Is also on the farxiga 01/03/2023 Patient is seen in follow-up today sleeping although easily arousable being followed by cardiology along with pulmonary and infectious disease. Patient is maintained on IV cefazolin with concerns of cellulitis of bilateral lower extremities. Patient does have chronic venous stasis along with generalized edema and edema is significantly improved. No active drainage noted and will continue IV cefazolin. Patient with chronic COPD as well as chest pain and shortness of breath being evaluated by cardiology and pulmonary recommend to continue with breathing treatments and will continue oral prednisone. Patient continues to endorse poor nail hygiene requesting podiatry to address this. Johanna burnett was consulted and evaluated by podiatry initially and will need outpatient follow-up to perform this is extensive nail care. This was discussed with the patient. Patient to continue on IV Lasix and will follow-up with repeat labs. To discuss further with pulmonary as well as cardiology about discharge planning. 01/04/2023 Patient is seen this morning being followed by pulmonary and cardiology along with infectious disease. Per nursing staff patient lost IV access and difficult to restart and we'll transition to oral. Patient has been diuresed on IV Lasix and will transition to 40 mg daily and also maintained on IV cefazolin with concerns of lower extremity cellulitis and will continue with Keflex. Patient with weakness requiring increased care needs and difficult to help himself perform ADLs is now agreeable to go to rehab for strength and mobility. Case management following working on possible ECF. Patient is currently afebrile denies chest pain or worsening shortness of breath. Patient is chronically maintained on 3 L and is currently maintaining oxygen saturations above 90% on this. We'll continue with breathing treatments as well. Review of systems: Constitutional: No reports of fatigue, fever, or chills Cardiovascular: No reports of chest pain or palpitations Respiratory: reports of shortness of breath feels improved GI: No reports of nausea, vomiting, or diarrhea : No reports of dysuria or retention Neurovascular: reports of generalized weakness and difficulty walking due to his continued swelling of the lower extremities and poorly kept toenails All medications have been reviewed Active Medications Acetaminophen (Acetaminophen Tab 325 Mg Tab) 650 mg PO Q6HR PRN PRN Reason: Fever and/ or Pain Last Admin: 01/02/23 06:09 Dose: 650 mg Hydrocodone Bitart/Acetaminophen (Hydrocodone/Apap 7.5-325mg 1 Each Tab) 1 each PO Q4H PRN PRN Reason: Pain Last Admin: 01/05/23 02:53 Dose: 1 each Albuterol/Ipratropium (Ipratropium-Albuterol 3 Ml Neb) 3 ml INHALATION RT-Q6H PRN PRN Reason: Shortness Of Breath Or Wheezing Last Admin: 01/04/23 21:07 Dose: 3 ml Apixaban (Apixaban 5 Mg Tab) 5 mg PO BID [facility]; Protocol Last Admin: 01/04/23 20:19 Dose: 5 mg Atorvastatin Calcium (Atorvastatin 40 Mg Tab) 40 mg PO HS [facility] Last Admin: 01/04/23 20:19 Dose: 40 mg Budesonide/Formoterol Fumarate (Symbicort 160-4.5 Mcg Inhaler) 2 puff INHALATION RT-BID [facility] Last Admin: 01/04/23 21:06 Dose: 2 puff Cephalexin (Cephalexin 500 Mg Cap) 500 mg PO TID [facility]; Protocol Last Admin: 01/04/23 20:19 Dose: 500 mg Dapagliflozin (Dapagliflozin Propanediol 10 Mg Tablet) 10 mg PO DAILY [facility] Last Admin: 01/04/23 10:20 Dose: 10 mg Duloxetine HCl (Duloxetine Hcl 30 Mg Capsule.Dr) 30 mg PO DAILY [facility] Last Admin: 01/04/23 10:21 Dose: 30 mg Escitalopram Oxalate (Escitalopram 5 Mg Tab) 5 mg PO DAILY [facility] Last Admin: 01/04/23 10:20 Dose: 5 mg Fluticasone Propionate (Fluticasone 50mcg/[place] Nasal 16gm) 1 spray EA NOSTRIL Q12H PRN PRN Reason: nasal drainage Furosemide (Furosemide 40 Mg Tab) 40 mg PO DAILY [facility] Last Admin: 01/04/23 17:36 Dose: 40 mg Melatonin (Melatonin 3 Mg Tablet) 6 mg PO HS PRN PRN Reason: Insomnia Metformin HCl (Metformin 500 Mg Tab) 500 mg PO BID-W/MEALS [facility] Last Admin: 01/04/23 17:36 Dose: 500 mg Metoprolol Tartrate (Metoprolol Tartrate 50 Mg Tab) 50 mg PO BID [facility] Last Admin: 01/04/23 20:19 Dose: 50 mg Miscellaneous Information (Potassium Replacement Protocol 1 Each Misc) 1 each MISCELLANE DAILY PRN; Protocol PRN Reason: Per Protocol Nicotine (Nicotine 21mg/24hr Patch) 1 patch TRANSDERM DAILY [facility] Last Admin: 01/04/23 10:21 Dose: 1 patch Pregabalin (Pregabalin 75 Mg Cap) 75 mg PO BID [facility] Last Admin: 01/04/23 20:19 Dose: 75 mg Senna (Sennosides 8.6 Mg Tab) 8.6 mg PO BID [facility] Last Admin: 01/04/23 20:19 Dose: 8.6 mg Silver Sulfadiazine (Silver Sulfadiazine 1% Cream 25 Gm Tube) 1 applic TOPICAL DAILY [facility]; Protocol Last Admin: 01/04/23 10:30 Dose: Not Given Spironolactone (Spironolactone 25 Mg Tab) 25 mg PO DAILY [facility] Last Admin: 01/04/23 10:20 Dose: 25 mg Tamsulosin HCl (Tamsulosin 0.4 Mg Cap.Er.24h) 0.4 mg PO DAILY [facility] Last Admin: 01/04/23 10:20 Dose: 0.4 mg Physical exam: GENERAL: The patient is alert and oriented x3, obese. Well developed, well nourished. HEENT: Pupils are round and equally reacting to light. EOMI. No scleral icterus. No conjunctival pallor. Normocephalic, atraumatic. No pharyngeal erythema. No thyromegaly. CARDIOVASCULAR: S1 and S2 muffled PULMONARY: Breath sounds diminished bilaterally with no wheezing, coarse rhonchi noted ABDOMEN: Soft, nontender, nondistended, normoactive bowel sounds. No palpable organomegaly. MUSCULOSKELETAL: No joint swelling or deformity. -EXTREMITIES: No cyanosis, clubbing, bilateral pitting like and pedal edema. Redness and swelling improved bilateral lower extremities , nails are overgrown NEUROLOGICAL: Gross neurological examination did not reveal any focal deficits. Diffusely weak SKIN: No rashes. no petechiae. Assessment: Acute on chronic diastolic CHF Bilateral pitting leg edema, acute on chronic chronic atrial fibrillation on Eliquis and the rate is controlled Chronic hypoxic respiratory failure, wears 3 L oxygen via nasal cannula out patient Diabetes mellitus Hypertension Hyperlipidemia History of osteoarthritis History of GERD Diabetic neuropathy of feet and hands Chronic back pain Polyarthralgia History of falls History of anxiety and depression, not in activation Obese with BMI 38.5 GI prophylaxis, DVT prophylaxis No code Plan: Recommend continue current medications and management with pulmonary and cardiology following. Infectious disease following as well and maintained on IV cefazolin. Patient lost IV access and we'll transition to oral Keflex as well as Lasix Recommend continue with Miguel wrapping to lower extremities and local wound care. Patient was evaluated initially by podiatry and will need outpatient follow-up for is extensive poor nail care on bilateral lower extremities. Recommend PT/OT therapy daily and patient is now agreeable to rehab in case management following working on possible ECF. Will also require insurance authorization Given patient's significant comorbidities and noncompliance, prognosis is guarded Possible discharge in the next 24-48 hours The impression and plan of care has been dictated by Ange Becerra, Nurse Practitioner as directed. Dr. Alexander MD I have performed a history and examination and MDM of this patient, discussed the same with the dictator, and agree with the dictator's assessment and plan as written ,documented as a scribe. Based on total visit time, I have performed more than 50% of the visit. Objective - Vital Signs Vital signs: Vital Signs Temp 98.3 F 01/04/23 08:00 Pulse 76 01/04/23 13:11 Resp 18 01/04/23 13:11 BP 124/76 01/04/23 12:00 Pulse Ox 98 01/04/23 12:00 FiO2 Intake & Output 01/03/23 01/04/23 01/04/23 18:59 06:59 18:59 Intake Total 600 540 480 Output Total 850 700 Balance 600 -310 -220 Weight 112.9 kg Intake: Oral 600 540 480 Output: Urine 850 700 Other: Voiding Method Urinal # Bowel Movements 0 - Labs CBC & Chem 7: 01/04/23 08:20 01/04/23 08:20 Labs: Abnormal Lab Results - Last 24 Hours (Table) 01/03/23 01/04/23 01/04/23 Range/Units 19:48 06:13 08:20 RBC 3.89 L (4.30-5.90) m/uL Hgb 11.1 L (13.0-17.5) gm/dL Hct 34.2 L (39.0-53.0) % RDW 18.8 H (11.5-15.5) % Sodium (137-145) mmol/L Chloride (98-107) mmol/L Carbon Dioxide (22-30) mmol/L Glucose (74-99) mg/dL POC Glucose (mg/dL) 163 H 120 H (70-110) mg/dL Calcium (8.4-10.2) mg/dL 01/04/23 Range/Units 08:20 RBC (4.30-5.90) m/uL Hgb (13.0-17.5) gm/dL Hct (39.0-53.0) % RDW (11.5-15.5) % Sodium 135 L (137-145) mmol/L Chloride 91 L (98-107) mmol/L Carbon Dioxide 38 H (22-30) mmol/L Glucose 107 H (74-99) mg/dL POC Glucose (mg/dL) (70-110) mg/dL Calcium 8.3 L (8.4-10.2) mg/dL
[2023-01-05 06:11] LABS: Glucose,Whole Blood 155 mg/dL (70-110)
[2023-01-05] MEDS: metFORMIN 500 MG TAB PO SCH ×2 (06:35→16:50)
[2023-01-05] MEDS: SYMBICORT 160-4.5 MCG INHALER INHALATION SCH ×2 (07:33→20:03)
[2023-01-05] MEDS: FUROSEMIDE 40 MG TAB PO SCH (08:47)
[2023-01-05] MEDS: TAMSULOSIN 0.4 MG CAP.ER.24H PO SCH (08:47)
[2023-01-05] MEDS: PREGABALIN 75 MG CAP PO SCH ×2 (08:47→20:41)
[2023-01-05] MEDS: SENNOSIDES 8.6 MG TAB PO SCH ×2 (08:47→20:41)
[2023-01-05] MEDS: CEPHALEXIN 500 MG CAP PO SCH ×3 (08:47→20:41)
[2023-01-05] MEDS: METOPROLOL TARTRATE 50 MG TAB PO SCH ×2 (08:47→20:41)
[2023-01-05] MEDS: NICOTINE 21MG/24HR PATCH TRANSDERM SCH (08:48)
[2023-01-05] MEDS: DAPAGLIFLOZIN PROPANEDIOL 10 MG TABLET PO SCH (08:48)
[2023-01-05] MEDS: DULoxetine HCL 30 MG CAPSULE.DR PO SCH (08:48)
[2023-01-05] MEDS: APIXABAN 5 MG TAB PO SCH ×2 (08:48→20:41)
[2023-01-05] MEDS: SPIRONOLACTONE 25 MG TAB PO SCH (08:48)
[2023-01-05] MEDS: ESCITALOPRAM 5 MG TAB PO SCH (08:48)
[2023-01-05 11:25] LABS: Glucose,Whole Blood 158 mg/dL (70-110)
--- NOTE | 2023-01-05 14:23 | P.DS ---
Providers Date of admission: 12/31/22 13:40 Expected date of discharge: 01/05/23 Attending physician: Tigre Geiger MD Consults: 12/31/22 13:31 Consult Physician Routine Consulting Provider: Sajan Haile Consult Reason/Comments: b/l feet swelling Do you want consulting provider notified?: Yes 12/31/22 17:35 Consult Physician Urgent Consulting Provider: Paulo De Anda Consult Reason/Comments: lower extremity redness/swelling Do you want consulting provider notified?: Yes 01/03/23 03:31 Consult Physician Routine Consulting Provider: Calvin Martin Consult Reason/Comments: Increased shortness of breath Do you want consulting provider notified?: Yes Primary care physician: [facility] Course: Final diagnosis Acute on chronic diastolic CHF Bilateral pitting leg edema, acute on chronic Bilateral lower extremity cellulitis, present on admission, improving chronic atrial fibrillation on Eliquis and the rate is controlled Chronic hypoxic respiratory failure, wears 3 L oxygen via nasal cannula outpatient Diabetes mellitus Hypertension Hyperlipidemia History of osteoarthritis History of GERD Diabetic neuropathy of feet and hands Chronic back pain Polyarthralgia History of falls History of anxiety and depression, not in activation Obese with BMI 38.5 GI prophylaxis, DVT prophylaxis No code Discharge disposition Patient is being discharged in a stable condition with guarded prognosis to [facility]. Patient will follow-up with Dr. Villalba in the outpatient setting upon discharge. Patient to follow-up with his primary care provider Dr. Jackson in the outpatient setting on discharge. Patient is to continue with oral Keflex 500 mg 3 times daily for the next 10 days. Recommend close outpatient follow-up with primary care provider along with pulmonary and cardiology outpatient as scheduled. Would also highly recommend podiatry consult outpatient in the next 1-2 weeks. Patient was evaluated by Dr. Haile in the hospital. Total time taken is greater than 35 minutes. Hospital course This is a 72-year-old male who was recently admitted with COPD/CHF exacerbation along with generalized weakness and lower extremity edema with concerns of possible cellulitis of the lower extremity's. Patient was started on cefazolin and have transitioned oral Keflex and will continue for 10 days to complete the course. Patient also maintained on Lasix along with DuoNeb's. Patient has been cleared by cardiology and pulmonary for discharge. Patient continues with significant weakness and initially was not agreeable to rehab although is now agreeable after being evaluated by physical therapy. Patient was evaluated initially by podiatry Dr. Haile in the hospital for his extensive lower extremity edema and poorly kept toenails. Patient needs follow-up in the outpatient setting at his office to undergo extensive toenail care. Patient is medically stable for discharge and awaiting insurance authorization. Please refer to other consultation notes for further HPI. Currently no reports of chest pain, shortness of breath, or palpitations. Patient is afebrile. No reports of nausea or vomiting and patient is tolerating diet. Patient will be discharged to [facility] on the burns today. Guarded prognosis. High risk for readmissions as patient has significant comorbidities and noncompliance with medications. Physical exam: Gen: This is a 72-year-old male who is awake, alert and oriented 3, well- developed, well-nourished, obese HEENT: Head is atraumatic, normocephalic. Pupils equal, round. Sclerae is anicteric. NECK: Supple. No JVD. No lymphadenopathy. No thyromegaly. LUNGS: Diminished breath sounds bilaterally with coarse rhonchi. No intercostal retractions. HEART: S1, S2 are muffled ABDOMEN: Soft. Bowel sounds are present. No masses. No tenderness. EXTREMITIES: No pedal edema. No calf tenderness. NEUROLOGICAL: Patient is awake, alert and oriented x3. Cranial nerves 2 through 12 are grossly intact. Diffusely weak Please refer to medication reconciliation sheet for a list of medications. The impression and plan of care has been dictated by Ange Becerra, Nurse Practitioner as directed. Dr. Alexander MD I have performed a history and examination and MDM of this patient, discussed the same with the dictator, and agree with the dictator's assessment and plan as written ,documented as a scribe. Based on total visit time, I have performed more than 50% of the visit. Patient Condition at Discharge: Fair Plan - Discharge Summary Discharge Rx Participant: No New Discharge Prescriptions: New HYDROcodone/APAP 7.5-325MG [[place] 7.5-325] 1 each PO Q4H PRN #4 tab PRN Reason: Pain Dapagliflozin Propanediol [Farxiga] 10 mg PO DAILY tab Cephalexin [Keflex] 500 mg PO TID 10 Days #30 cap Furosemide [Lasix] 40 mg PO DAILY tab Sennosides [Senokot] 8.6 mg PO BID tab SILVER sulfADIAZINE CREAM [Silvadene Cream] 1 applic TOPICAL DAILY each Budesonide-Formot 160-4.5 Mcg [Symbicort 160-4.5 Mcg Inhaler] 2 puff INHALATION RT-BID each Acetaminophen Tab [Tylenol] 650 mg PO Q6HR PRN tab PRN Reason: Fever And/ Or Pain Continue Albuterol Nebulized [Ventolin Nebulized] 2.5 mg INHALATION RT-Q6H PRN PRN Reason: Shortness Of Breath Apixaban [Eliquis] 5 mg PO BID #60 tab Omeprazole 40 mg PO DAILY Escitalopram [Lexapro] 5 mg PO DAILY metFORMIN HCL [Glucophage] 500 mg PO BID tab Spironolactone [Aldactone] 25 mg PO DAILY #30 tab Fluticasone/Vilanterol [Breo Ellipta 100-25 Mcg Inhaler] 1 puff INHALATION RT-DAILY DULoxetine HCL [Cymbalta] 30 mg PO DAILY Umeclidinium [place] [Incruse Ellipta] 1 puff INHALATION RT-DAILY HYDROcodone/APAP 7.5-325MG [[place] 7.5-325] 1 tab PO Q4H PRN #4 tab PRN Reason: Pain Ipratropium-Albuterol Nebulize [Duoneb 0.5 mg-3 mg/3 ml Soln] 3 ml INHALATION RT-Q6H PRN PRN Reason: Shortness Of Breath Or Wheezing Tamsulosin [Flomax] 0.4 mg PO DAILY Fluticasone Nasal [place] [Flonase Nasal [place]] 1 spray EA NOSTRIL Q12H PRN PRN Reason: nasal drainage Potassium Chloride [Klor-Con 10 ER] 10 meq PO DAILY Theophylline Anhydrous [Theophylline] 400 mg PO DAILY Albuterol Sulfate [Proair Hfa] 2 puff INHALATION RT-Q6H PRN PRN Reason: Shortness Of Breath Metoprolol Tartrate [Lopressor] 50 mg PO BID tab Nicotine 21Mg/24Hr Patch [Habitrol] 1 patch TRANSDERM DAILY #3 patch Melatonin 6 mg PO HS PRN 10 Days #20 tab PRN Reason: Insomnia Clopidogrel [Plavix] 75 mg PO DAILY Atorvastatin Calcium [Lipitor] 40 mg PO HS Pregabalin [Lyrica] 75 mg PO BID #6 cap Discontinued predniSONE 5 mg PO DAILY Furosemide [Lasix] 40 mg PO BID #60 tab amLODIPine [Norvasc] 10 mg PO DAILY Discharge Medication List Albuterol Nebulized [Ventolin Nebulized] 2.5 mg INHALATION RT-Q6H PRN 05/08/20 [History] Apixaban [Eliquis] 5 mg PO BID #60 tab 07/08/20 [Rx] Ipratropium-Albuterol Nebulize [Duoneb 0.5 mg-3 mg/3 ml Soln] 3 ml INHALATION RT-Q6H PRN 05/02/21 [History] Tamsulosin [Flomax] 0.4 mg PO DAILY 12/07/21 [History] Albuterol Sulfate [Proair Hfa] 2 puff INHALATION RT-Q6H PRN 02/18/22 [History] Fluticasone Nasal [place] [Flonase Nasal [place]] 1 spray EA NOSTRIL Q12H PRN 02/18/22 [History] Potassium Chloride [Klor-Con 10 ER] 10 meq PO DAILY 02/18/22 [History] Theophylline Anhydrous [Theophylline] 400 mg PO DAILY 02/18/22 [History] Escitalopram [Lexapro] 5 mg PO DAILY 08/29/22 [History] Omeprazole 40 mg PO DAILY 08/29/22 [History] Metoprolol Tartrate [Lopressor] 50 mg PO BID tab 09/07/22 [Rx] metFORMIN HCL [Glucophage] 500 mg PO BID tab 09/07/22 [Rx] Melatonin 6 mg PO HS PRN 10 Days #20 tab 11/29/22 [Rx] Nicotine 21Mg/24Hr Patch [Habitrol] 1 patch TRANSDERM DAILY #3 patch 11/29/22 [Rx] Spironolactone [Aldactone] 25 mg PO DAILY #30 tab 11/29/22 [Rx] Atorvastatin Calcium [Lipitor] 40 mg PO HS 12/31/22 [History] Clopidogrel [Plavix] 75 mg PO DAILY 12/31/22 [History] DULoxetine HCL [Cymbalta] 30 mg PO DAILY 12/31/22 [History] Fluticasone/Vilanterol [Breo Ellipta 100-25 Mcg Inhaler] 1 puff INHALATION RT- DAILY 12/31/22 [History] Umeclidinium [place] [Incruse Ellipta] 1 puff INHALATION RT-DAILY 12/31/22 [History] Acetaminophen Tab [Tylenol] 650 mg PO Q6HR PRN tab 01/05/23 [Rx] Budesonide-Formot 160-4.5 Mcg [Symbicort 160-4.5 Mcg Inhaler] 2 puff INHALATION RT-BID each 01/05/23 [Rx] Cephalexin [Keflex] 500 mg PO TID 10 Days #30 cap 01/05/23 [Rx] Dapagliflozin Propanediol [Farxiga] 10 mg PO DAILY tab 01/05/23 [Rx] Furosemide [Lasix] 40 mg PO DAILY tab 01/05/23 [Rx] HYDROcodone/APAP 7.5-325MG [[place] 7.5-325] 1 each PO Q4H PRN #4 tab 01/05/23 [Rx] HYDROcodone/APAP 7.5-325MG [[place] 7.5-325] 1 tab PO Q4H PRN #4 tab 01/05/23 [Rx] Pregabalin [Lyrica] 75 mg PO BID #6 cap 01/05/23 [Rx] SILVER sulfADIAZINE CREAM [Silvadene Cream] 1 applic TOPICAL DAILY each 01/05/23 [Rx] Sennosides [Senokot] 8.6 mg PO BID tab 01/05/23 [Rx] Follow up Appointment(s)/Referral(s): Lucille Daniels MD [STAFF PHYSICIAN] - 1 Week Sajan Haile DPM [STAFF PHYSICIAN] - 1 Week [facility], [NON-STAFF] - [facility] [NON-STAFF] - Elver Jackson MD [Primary Care Provider] - 1-2 days Activity/Diet/Wound Care/Special Instructions: Patient is going to ECF Activity as tolerated Continue current medications as prescribed Continue antibiotics for 10 days limited to discontinue Continue to use Miguel wraps to lower his extremities and wound care and elevate while at rest Continue breathing treatments and supplement oxygen and follow-up pulmonary outpatient Patient needs podiatry outpatient in 1-2 weeks Discharge/Stand Alone Forms: Who Do I Call?, Community Resources, [employer] Discharge Disposition: TRANSFER TO SNF/ECF
--- NOTE | 2023-01-05 14:31 | P.PN ---
Subjective Progress Note Date: 01/04/23 Principal diagnosis: Bilateral lower extremity cellulitis Patient is a 72-year-old male with a past medical history significant for atrial fibrillation diabetes mellitus COPD hypertension hyperlipidemia and diabetic neuropathy patient did have a history of bilateral lower extremity venous stasis ulceration and cellulitis, patient presenting to the hospital for evaluation of increasing shortness of breath and bilateral extremity swelling, and concern for bilateral lower extremity cellulitis On today's evaluation that is 01/04/2023, the patient continues to be afebrile, the patient is breathing comfortably on 2 L nasal cannula oxygen, the patient denies chest pain occasional cough no abdominal pain, swelling and pain to the lower extremity has decreased in intensity Objective - Vital Signs Vital signs: Vital Signs Temp 98.3 F 01/04/23 08:00 Pulse 73 01/04/23 08:00 Resp 18 01/04/23 08:00 BP 115/76 01/04/23 08:00 Pulse Ox 97 01/04/23 08:00 FiO2 Intake & Output 01/03/23 01/04/23 01/04/23 18:59 06:59 18:59 Intake Total 600 540 480 Output Total 850 Balance 600 -310 480 Weight 112.9 kg Intake: Oral 600 540 480 Output: Urine 850 Other: Voiding Method Urinal # Bowel Movements 0 - Exam GENERAL DESCRIPTION: An elderly male up in the chair in no distress RESPIRATORY SYSTEM: Unlabored breathing , decreased breath sounds at bases HEART: S1 S2 regular rate and rhythm , ABDOMEN: Soft no tenderness EXTREMITIES: Bilateral laser currently wrapped in Miguel wrap no drainage of the dressing, and redness decreased - Labs CBC & Chem 7: 01/04/23 08:20 01/04/23 08:20 Labs: Abnormal Lab Results - Last 24 Hours (Table) 01/03/23 01/04/23 01/04/23 Range/Units 19:48 06:13 08:20 RBC 3.89 L (4.30-5.90) m/uL Hgb 11.1 L (13.0-17.5) gm/dL Hct 34.2 L (39.0-53.0) % RDW 18.8 H (11.5-15.5) % Sodium (137-145) mmol/L Chloride (98-107) mmol/L Carbon Dioxide (22-30) mmol/L Glucose (74-99) mg/dL POC Glucose (mg/dL) 163 H 120 H (70-110) mg/dL Calcium (8.4-10.2) mg/dL 01/04/23 Range/Units 08:20 RBC (4.30-5.90) m/uL Hgb (13.0-17.5) gm/dL Hct (39.0-53.0) % RDW (11.5-15.5) % Sodium 135 L (137-145) mmol/L Chloride 91 L (98-107) mmol/L Carbon Dioxide 38 H (22-30) mmol/L Glucose 107 H (74-99) mg/dL POC Glucose (mg/dL) (70-110) mg/dL Calcium 8.3 L (8.4-10.2) mg/dL Assessment and Plan (1) Bilateral lower leg cellulitis Current Visit: Yes Status: Acute Code(s): L03.116 - CELLULITIS OF LEFT LOWER LIMB; L03.115 - CELLULITIS OF RIGHT LOWER LIMB SNOMED Code(s): 102915295 Plan: 1patient was in the hospital with increasing shortness of breath also with increasing bilateral lower extremity swelling superficial ulceration, patient did have evidence of erythema warm to touch elevated inflammatory markers and a left shift on WBC of concern for possible cellulitis likely from gram-positive skin ux. 2patient with multiple antibiotic allergies that would limit the number of antibiotics safe to use 3-patient seemed to have some clinical improvement and will continue cefazolin 2 g every 8 hours and continue with Miguel wrap to the leg to keep the swelling down, with a plan to finish therapy with oral Keflex Time with Patient: Less than 30
--- NOTE | 2023-01-05 14:33 | P.PN ---
Subjective Progress Note Date: 01/05/23 Principal diagnosis: Bilateral lower extremity cellulitis Patient is a 72-year-old male with a past medical history significant for atrial fibrillation diabetes mellitus COPD hypertension hyperlipidemia and diabetic neuropathy patient did have a history of bilateral lower extremity venous stasis ulceration and cellulitis, patient presenting to the hospital for evaluation of increasing shortness of breath and bilateral extremity swelling, and concern for bilateral lower extremity cellulitis On today's evaluation that is 01/05/2023, the patient denies any fever or any chills, the patient is breathing comfortably on 2 L nasal cannula oxygen, the patient denies chest pain occasional cough no abdominal pain, the patient had been complaining of pain to the lower extremity especially at night Objective - Vital Signs Vital signs: Vital Signs Temp 97.7 F 01/05/23 11:19 Pulse 63 01/05/23 11:19 Resp 20 01/05/23 11:19 BP 113/72 01/05/23 11:19 Pulse Ox 95 01/05/23 11:19 FiO2 Intake & Output 01/04/23 01/05/23 01/05/23 18:59 06:59 18:59 Intake Total 838 618 Output Total 700 1250 425 Balance 138 -1250 193 Weight 112.9 kg Intake: Oral 838 618 Output: Urine 700 1250 425 - Exam GENERAL DESCRIPTION: An elderly male up in the chair in no distress RESPIRATORY SYSTEM: Unlabored breathing , decreased breath sounds at bases HEART: S1 S2 regular rate and rhythm , ABDOMEN: Soft no tenderness EXTREMITIES: Bilateral laser currently wrapped no drainage of the dressing, and redness decreased - Labs CBC & Chem 7: 01/04/23 08:20 01/04/23 08:20 Labs: Abnormal Lab Results - Last 24 Hours (Table) 01/04/23 01/04/23 01/05/23 Range/Units 16:29 20:26 06:09 POC Glucose (mg/dL) 181 H 140 H 155 H (70-110) mg/dL 01/05/23 Range/Units 11:24 POC Glucose (mg/dL) 158 H (70-110) mg/dL Assessment and Plan (1) Bilateral lower leg cellulitis Current Visit: Yes Status: Acute Code(s): L03.116 - CELLULITIS OF LEFT LOWER LIMB; L03.115 - CELLULITIS OF RIGHT LOWER LIMB SNOMED Code(s): 701207769 Plan: 1patient was in the hospital with increasing shortness of breath also with increasing bilateral lower extremity swelling superficial ulceration, patient did have evidence of erythema warm to touch elevated inflammatory markers and a left shift on WBC of concern for possible cellulitis likely from gram-positive skin xu. 2patient with multiple antibiotic allergies that would limit the number of antibiotics safe to use 3-patient seemed to have some clinical improvement antibiotic has been switched over to oral Keflex to continue for a week on discharge Time with Patient: Less than 30
--- NOTE | 2023-01-05 15:10 | P.PN ---
Subjective Progress Note Date: 01/05/23 I'm seeing this patient in new consultation today 01/03/2023 for an acute exacerbation of the patient's systolic congestive heart failure. Patient is a 72-year-old white male with history of multiple medical problems including severe COPD, 3 L nasal cannula oxygen dependence, systolic congestive heart fa ilure, chronic atrial fibrillation, hypertension, diabetes mellitus, degenerative joint disease, current smoker. Patient has had multiple admissions over the past year. He was recently discharged home on 11/29/2022 after treatment for an acute COPD exacerbation. He does not follow up in the office. Patient did come back to the emergency room on 12/31/2022 stating that he is unable to take care of himself because his legs are swollen and he cannot move around. Bilateral lower extremity venous Dopplers were negative for DVT. Ankle branchial index was a suboptimal study and follow-up was recommended. There was at least moderate peripheral arterial disease identified. Chest x-ray on admi ssion showed pulmonary vascular congestion and increased interstitial opacities bilaterally. No focal consolidation noted. An echocardiogram is pending. NT proBNP was non-elevated on admission at 585. Patient is receiving Lasix 40 mg 3 times a day and Aldactone. Most recent CBC from 2 days ago was unremarkable. Patient's BMP from yesterday showed a sodium 132, potassium 3.9, chloride 90, serum CO2 chronically elevated at 38, BUN 14, creatinine 0.76, glucose 133. Troponin negative 1. We were consulted earlier this morning due to the patient having increasing lethargy. The patient is currently lying in bed, on 3 L nasal cannula, in no acute distress. Oxygenating at 99%. He does awaken and answer questions. He is oriented to self and place. He is asking for [place]. He denies any shortness breath, cough, fever, chest pain. He also denies any palpitations or syncope. His legs are currently wrapped with Miguel wrap, swollen, and erythemic. Patient denies any recent injury or trauma to his lower extremities. Currently has Silvadene cream and IV cefazolin ordered. Vital signs are stable. The patient is seen today 01/04/2023 in follow-up on the selective care unit. He is currently resting comfortably in bed. Awake and alert in no acute distress. Denies any worsening shortness of breath, cough or congestion. Chest x-ray reveals mild pulmonary vascular congestion. Evidence of COPD. No infiltrate or opacities. He is complaining of some lower extremity pain and burning that is being monitored by infectious disease. His legs remain wrapped in Miguel wraps with swelling and some erythema. Remains on Silvadene cream and IV cefazolin. White count 7.6. Hemoglobin 11.1. Platelet count 258. Sodium 135. Potassium 3.5. Bicarb 38. BUN 13. Creatinine 0.77. Glucose 107. He remains on DuoNeb inhalations, Symbicort. Remains on IV diuretics. Currently in a positive balance. NicoDerm patch in place. The patient is seen today 01/05/2023 in follow-up on the selective care unit. Sitting up in a chair at the bedside. Awake and alert in no acute distress. Denies any worsening shortness of breath, cough or congestion. No fever chills. Maintaining O2 saturations in the mid 90s on 2 L/m per nasal cannula. He is afebrile. Hemodynamically stable. Bilateral lower extremity pain and edema is better controlled. He remains on Keflex. He remains on Symbicort, DuoNeb inhalations. NicoDerm patch is in place. Anticoagulated with Eliquis. Blood sugar 158. Objective - Vital Signs Vital signs: Vital Signs Temp 97.7 F 01/05/23 11:19 Pulse 63 01/05/23 11:19 Resp 20 01/05/23 11:19 BP 113/72 01/05/23 11:19 Pulse Ox 95 01/05/23 11:19 FiO2 Intake & Output 01/04/23 01/05/23 01/05/23 18:59 06:59 18:59 Intake Total 838 618 Output Total 700 1250 425 Balance 138 -1250 193 Weight 112.9 kg Intake: Oral 838 618 Output: Urine 700 1250 425 - Exam GENERAL EXAM: Awake, alert, 72-year-old male, on 2 L nasal cannula, up in a chair at the bedside, comfortable in no apparent distress. HEAD: Normocephalic and atraumatic EYES: Normal reaction of pupils, equal size. NOSE: Clear with pink turbinates. THROAT: No erythema or exudates. Poor dentition NECK: No masses, no JVD. CHEST: No chest wall deformity. LUNGS: Equal air entry with end expiratory wheeze. no crackles, rhonchi or dullness. No conversational dyspnea or accessory muscle use. CVS: S1 and S2 normal with no audible murmur, regular rhythm. No extra heart sounds ABDOMEN: Obese abdomen with a umbilical hernia. No hepatosplenomegaly, active bowel sounds, no guarding or rigidity. SPINE: No scoliosis or deformity SKIN: Bilateral lower extremity erythema CENTRAL NERVOUS SYSTEM: No focal deficits, tone is normal in all 4 extremities. EXTREMITIES: There is bilateral lower extremity pitting edema with chronic changes. No clubbing, or cyanosis. Peripheral pulses are intact. - Labs CBC & Chem 7: 01/04/23 08:20 01/04/23 08:20 Labs: Abnormal Lab Results - Last 24 Hours (Table) 01/04/23 01/04/23 01/05/23 Range/Units 16:29 20:26 06:09 POC Glucose (mg/dL) 181 H 140 H 155 H (70-110) mg/dL 01/05/23 Range/Units 11:24 POC Glucose (mg/dL) 158 H (70-110) mg/dL Assessment and Plan Assessment: Acute exacerbation of systolic congestive heart failure. Stable severe COPD Chronic hypoxic and hypercapnic respiratory failure secondary to above. Currently on 2 L nasal cannula Possible bilateral lower extremity cellulitis, patient does have history of chronic venous stasis. Tobacco dependence Primary hypertension Chronic atrial fibrillation, anticoagulated with Eliquis Diabetes mellitus type 2 with diabetic neuropathy Chronic pain Morbid obesity with an initial BMI of 38.5 Plan: The patient was seen and evaluated Labs and medications reviewed Cleared for discharge from the pulmonary standpoint Continued on antibiotics Continued on bronchodilators Continued on diuretics Educated regarding the importance of complete smoking cessation NicoDerm patch is applied Plan is for subacute rehabilitation at discharge I have personally seen and examined the patient, performed the documentation and the assessment and plan as written. Number of minutes spent on the visit: 10.
[2023-01-05] MEDS: IPRATROPIUM-ALBUTEROL 3 ML NEB INHALATION PRN (15:11)
[2023-01-05 16:17] LABS: Glucose,Whole Blood 143 mg/dL (70-110)
[2023-01-05 20:01] LABS: Glucose,Whole Blood 141 mg/dL (70-110)
[2023-01-05] MEDS: ATORVASTATIN 40 MG TAB PO SCH (20:41)
[2023-01-06] MEDS: MELATONIN 3 MG TABLET PO PRN (01:24)
[2023-01-06] MEDS: HYDROcodone/APAP 7.5-325MG 1 EACH TAB PO PRN ×4 (04:59→20:08)
[2023-01-06 06:09] LABS: Glucose,Whole Blood 100 mg/dL (70-110)
[2023-01-06] MEDS: metFORMIN 500 MG TAB PO SCH ×2 (06:31→17:14)
[2023-01-06] MEDS: IPRATROPIUM-ALBUTEROL 3 ML NEB INHALATION PRN ×4 (08:01→19:59)
[2023-01-06] MEDS: SYMBICORT 160-4.5 MCG INHALER INHALATION SCH ×2 (08:01→19:59)
[2023-01-06] MEDS: SPIRONOLACTONE 25 MG TAB PO SCH (08:08)
[2023-01-06] MEDS: PREGABALIN 75 MG CAP PO SCH ×2 (08:08→20:07)
[2023-01-06] MEDS: NICOTINE 21MG/24HR PATCH TRANSDERM SCH (08:08)
[2023-01-06] MEDS: DULoxetine HCL 30 MG CAPSULE.DR PO SCH (08:08)
[2023-01-06] MEDS: DAPAGLIFLOZIN PROPANEDIOL 10 MG TABLET PO SCH (08:08)
[2023-01-06] MEDS: FUROSEMIDE 40 MG TAB PO SCH (08:08)
[2023-01-06] MEDS: METOPROLOL TARTRATE 50 MG TAB PO SCH ×2 (08:08→20:08)
[2023-01-06] MEDS: SENNOSIDES 8.6 MG TAB PO SCH ×2 (08:08→20:07)
[2023-01-06] MEDS: APIXABAN 5 MG TAB PO SCH ×2 (08:08→20:07)
[2023-01-06] MEDS: CEPHALEXIN 500 MG CAP PO SCH ×3 (08:08→20:07)
[2023-01-06] MEDS: ESCITALOPRAM 5 MG TAB PO SCH (08:09)
[2023-01-06] MEDS: TAMSULOSIN 0.4 MG CAP.ER.24H PO SCH (08:09)
[2023-01-06 11:18] LABS: Glucose,Whole Blood 105 mg/dL (70-110)
--- NOTE | 2023-01-06 14:19 | P.PN ---
Subjective Progress Note Date: 01/06/23 Principal diagnosis: Bilateral lower extremity cellulitis Patient is a 72-year-old male with a past medical history significant for atrial fibrillation diabetes mellitus COPD hypertension hyperlipidemia and diabetic neuropathy patient did have a history of bilateral lower extremity venous stasis ulceration and cellulitis, patient presenting to the hospital for evaluation of increasing shortness of breath and bilateral extremity swelling, and concern for bilateral lower extremity cellulitis On today's evaluation that is 01/06/2023, the patient remains to be afebrile, the patient is breathing comfortably on 2 L nasal cannula oxygen, the patient denies chest pain occasional cough no abdominal pain, the patient had been complaining of pain to the lower extremity especially at night, however is getting help with the pain medication Objective - Vital Signs Vital signs: Vital Signs Temp 97.8 F 01/06/23 11:45 Pulse 80 01/06/23 11:44 Resp 16 01/06/23 11:45 BP 112/75 01/06/23 11:45 Pulse Ox 97 01/06/23 11:45 FiO2 Intake & Output 01/05/23 01/06/23 01/06/23 18:59 06:59 18:59 Intake Total 618 240 Output Total 975 1200 300 Balance -357 -1200 -60 Weight 112.9 kg 139 kg Intake: Oral 618 240 Output: Urine 975 1200 300 Other: Voiding Method Urinal # Voids 1 # Bowel Movements 1 - Exam GENERAL DESCRIPTION: An elderly male up in the chair in no distress RESPIRATORY SYSTEM: Unlabored breathing , decreased breath sounds at bases HEART: S1 S2 regular rate and rhythm , ABDOMEN: Soft no tenderness EXTREMITIES: Bilateral laser currently wrapped no drainage of the dressing, and redness decreased - Labs CBC & Chem 7: 01/04/23 08:20 01/04/23 08:20 Labs: Abnormal Lab Results - Last 24 Hours (Table) 01/05/23 01/05/23 Range/Units 16:15 19:59 POC Glucose (mg/dL) 143 H 141 H (70-110) mg/dL Assessment and Plan (1) Bilateral lower leg cellulitis Current Visit: Yes Status: Acute Code(s): L03.116 - CELLULITIS OF LEFT LOWER LIMB; L03.115 - CELLULITIS OF RIGHT LOWER LIMB SNOMED Code(s): 615629998 Plan: 1patient was in the hospital with increasing shortness of breath also with increasing bilateral lower extremity swelling superficial ulceration, patient did have evidence of erythema warm to touch elevated inflammatory markers and a left shift on WBC of concern for possible cellulitis likely from gram-positive skin xu. 2patient with multiple antibiotic allergies that would limit the number of antibiotics safe to use 3-patient seemed to have some clinical improvement, patient to continue with oral Keflex for a week on discharge and continue local care as ordered Time with Patient: Less than 30
[2023-01-06 16:22] LABS: Glucose,Whole Blood 123 mg/dL (70-110)
[2023-01-06] MEDS: ATORVASTATIN 40 MG TAB PO SCH (20:07)
[2023-01-06 20:32] LABS: Glucose,Whole Blood 164 mg/dL (70-110)
[2023-01-07] MEDS: HYDROcodone/APAP 7.5-325MG 1 EACH TAB PO PRN ×5 (00:15→23:19)
--- NOTE | 2023-01-07 04:58 | P.PN ---
Subjective Progress Note Date: 01/06/23 This is a pleasant 71 years old male with multiple medical problems including COPD, diabetes mellitus, hypertension, hyperlipidemia, osteoarthritis, GERD, diabetic neuropathy, chronic back pain, joint disease and falls He was recently in the hospital for COPD exacerbation and bilateral lower extremity edema and chronic CHF Patient presents because of bilateral patellar leg edema swelling and redness a nd erythema slowly get worse. He denies dyspnea. No chest pain. No change in urine or bowel habits Denies smoking alcohol or illicit drugs He is on 3 L oxygen at home. He is also on a prednisone 5 mg daily placed by his PCP Dr. Alfredo Vitals are stable Labs showing mild anemia with hemoglobin 10.8, rest of CBC, BMP and liver enzymes are unremarkable. Troponin is negative. Chest x-ray: Findings are consistent with mild pulmonary congestion EKG showing atrial fibrillation with controlled rate at [address]-T changes and QTC 422. 01/01/2023 Patient with bilateral leg swelling and redness but likely secondary to medication effect as well as mild diastolic CHF. I don't think the patient has actual infection or cellulitis. Patient has good urine output on 80 mg by mouth every 8 hours. This was transcribed goes by concierge Also patient placed on cefazolin by ID team Continue to discontinue Norvasc and prednisone. 01/02/2023 Patient has no new complaint His leg swelling is improving slowly and gradually, both legs are wrapped with Miguel bandage today He remains on IV Lasix 80 mg 3 times a day and cefazolin DC Norvasc and prednisone Is also on the farxiga 01/03/2023 Patient is seen in follow-up today sleeping although easily arousable being followed by cardiology along with pulmonary and infectious disease. Patient is maintained on IV cefazolin with concerns of cellulitis of bilateral lower extremities. Patient does have chronic venous stasis along with generalized edema and edema is significantly improved. No active drainage noted and will continue IV cefazolin. Patient with chronic COPD as well as chest pain and shortness of breath being evaluated by cardiology and pulmonary recommend to continue with breathing treatments and will continue oral prednisone. Patient continues to endorse poor nail hygiene requesting podiatry to address this. Johanna burnett was consulted and evaluated by podiatry initially and will need outpatient follow-up to perform this is extensive nail care. This was discussed with the patient. Patient to continue on IV Lasix and will follow-up with repeat labs. To discuss further with pulmonary as well as cardiology about discharge planning. 01/04/2023 Patient is seen this morning being followed by pulmonary and cardiology along with infectious disease. Per nursing staff patient lost IV access and difficult to restart and we'll transition to oral. Patient has been diuresed on IV Lasix and will transition to 40 mg daily and also maintained on IV cefazolin with concerns of lower extremity cellulitis and will continue with Keflex. Patient with weakness requiring increased care needs and difficult to help himself perform ADLs is now agreeable to go to rehab for strength and mobility. Case management following working on possible ECF. Patient is currently afebrile denies chest pain or worsening shortness of breath. Patient is chronically maintained on 3 L and is currently maintaining oxygen saturations above 90% on this. We'll continue with breathing treatments as well. 01/06/2023 Patient seen and evaluated sitting up in a chair currently sleeping although arousable. Patient is maintaining on his chronic 3 L of oxygen and being maintained on oral Lasix and breathing treatments. Patient continues on oral Keflex with ID following with concerns of lower extremity cellulitis. Recommend to elevate lower extremities and continue with Miguel wrapping. Patient is afebrile denies chest pain or worsening shortness of breath. Recommend physical therapy daily. Patient is awaiting insurance authorization for rehab. Patient will be going to [facility] on the [place] once authorization is obtained. Review of systems: Constitutional: No reports of fatigue, fever, or chills Cardiovascular: No reports of chest pain or palpitations Respiratory: reports of shortness of breath feels improved GI: No reports of nausea, vomiting, or diarrhea : No reports of dysuria or retention Neurovascular: reports of generalized weakness and difficulty walking due to his continued swelling of the lower extremities and poorly kept toenails All medications have been reviewed Physical exam: GENERAL: The patient is asleep but arousable, alert and oriented x3, obese. Well developed, well nourished. HEENT: Pupils are round and equally reacting to light. EOMI. No scleral icterus. No conjunctival pallor. Normocephalic, atraumatic. No pharyngeal erythema. No thyromegaly. CARDIOVASCULAR: S1 and S2 muffled PULMONARY: Breath sounds diminished bilaterally with no wheezing, coarse rhonchi noted ABDOMEN: Soft, nontender, nondistended, normoactive bowel sounds. No palpable organomegaly. MUSCULOSKELETAL: No joint swelling or deformity. -EXTREMITIES: No cyanosis, clubbing, bilateral pitting like and pedal edema. Redness and swelling improved bilateral lower extremities , nails are overgrown NEUROLOGICAL: Gross neurological examination did not reveal any focal deficits. Diffusely weak SKIN: No rashes. no petechiae. Assessment: Acute on chronic diastolic CHF Bilateral pitting leg edema, acute on chronic chronic atrial fibrillation on Eliquis and the rate is controlled Chronic hypoxic respiratory failure, wears 3 L oxygen via nasal cannula outpatient Diabetes mellitus Hypertension Hyperlipidemia History of osteoarthritis History of GERD Diabetic neuropathy of feet and hands Chronic back pain Polyarthralgia History of falls History of anxiety and depression, not in activation Obese with BMI 38.5 GI prophylaxis, DVT prophylaxis No code Plan: Recommend continue current medications and management with pulmonary and cardiology following. Infectious disease following as well and maintained on oral Keflex as well as Lasix Recommend continue with Miguel wrapping to lower extremities and local wound care. Patient was evaluated initially by podiatry and will need outpatient follow-up for is extensive poor nail care on bilateral lower extremities. Recommend PT/OT therapy daily and patient is now agreeable to rehab in case management following working on possible ECF. Continuing to await insurance authorization Given patient's significant comorbidities and noncompliance, prognosis is gua rded Possible discharge in the next 24-48 hours The impression and plan of care has been dictated by Ange Becerra, Nurse Practitioner as directed. Dr. Alexander MD I have performed a history and examination and MDM of this patient, discussed the same with the dictator, and agree with the dictator's assessment and plan as written ,documented as a scribe. Based on total visit time, I have performed more than 50% of the visit. Objective - Vital Signs Vital signs: Vital Signs Temp 98 F 01/06/23 20:00 Pulse 82 01/06/23 20:09 Resp 18 01/07/23 02:00 BP 106/70 01/07/23 00:00 Pulse Ox 95 01/06/23 20:00 FiO2 Intake & Output 01/06/23 01/06/23 01/07/23 06:59 18:59 06:59 Intake Total 1160 Output Total 1200 300 675 Balance -1200 860 -675 Weight 139 kg Intake: Oral 1160 Output: Urine 1200 300 675 Other: Voiding Method Urinal Urinal # Voids 3 # Bowel Movements 1 - Labs CBC & Chem 7: 01/04/23 08:20 01/04/23 08:20 Labs: Abnormal Lab Results - Last 24 Hours (Table) 01/06/23 01/06/23 Range/Units 16:17 20:30 POC Glucose (mg/dL) 123 H 164 H (70-110) mg/dL
[2023-01-07 06:22] LABS: Glucose,Whole Blood 101 mg/dL (70-110)
[2023-01-07] MEDS: metFORMIN 500 MG TAB PO SCH ×2 (06:34→16:14)
[2023-01-07] MEDS: DAPAGLIFLOZIN PROPANEDIOL 10 MG TABLET PO SCH (07:42)
[2023-01-07] MEDS: NICOTINE 21MG/24HR PATCH TRANSDERM SCH (07:42)
[2023-01-07] MEDS: SPIRONOLACTONE 25 MG TAB PO SCH (07:42)
[2023-01-07] MEDS: ESCITALOPRAM 5 MG TAB PO SCH (07:42)
[2023-01-07] MEDS: SENNOSIDES 8.6 MG TAB PO SCH ×2 (07:42→20:14)
[2023-01-07] MEDS: PREGABALIN 75 MG CAP PO SCH ×2 (07:43→20:14)
[2023-01-07] MEDS: METOPROLOL TARTRATE 50 MG TAB PO SCH ×2 (07:43→20:14)
[2023-01-07] MEDS: CEPHALEXIN 500 MG CAP PO SCH ×3 (07:43→20:14)
[2023-01-07] MEDS: DULoxetine HCL 30 MG CAPSULE.DR PO SCH (07:43)
[2023-01-07] MEDS: APIXABAN 5 MG TAB PO SCH ×2 (07:43→20:14)
[2023-01-07] MEDS: TAMSULOSIN 0.4 MG CAP.ER.24H PO SCH (07:43)
[2023-01-07] MEDS: FUROSEMIDE 40 MG TAB PO SCH (07:43)
[2023-01-07] MEDS: SYMBICORT 160-4.5 MCG INHALER INHALATION SCH ×2 (09:33→21:16)
[2023-01-07] MEDS: IPRATROPIUM-ALBUTEROL 3 ML NEB INHALATION PRN ×4 (09:34→21:16)
[2023-01-07 11:49] LABS: Glucose,Whole Blood 120 mg/dL (70-110)
[2023-01-07 16:35] LABS: Glucose,Whole Blood 204 mg/dL (70-110)
[2023-01-07 20:04] LABS: Glucose,Whole Blood 132 mg/dL (70-110)
[2023-01-07] MEDS: ATORVASTATIN 40 MG TAB PO SCH (20:14)
--- NOTE | 2023-01-07 21:12 | P.PN ---
Subjective Progress Note Date: 01/07/23 This is a pleasant 71 years old male with multiple medical problems including COPD, diabetes mellitus, hypertension, hyperlipidemia, osteoarthritis, GERD, diabetic neuropathy, chronic back pain, joint disease and falls He was recently in the hospital for COPD exacerbation and bilateral lower extremity edema and chronic CHF Patient presents because of bilateral patellar leg edema swelling and redness a nd erythema slowly get worse. He denies dyspnea. No chest pain. No change in urine or bowel habits Denies smoking alcohol or illicit drugs He is on 3 L oxygen at home. He is also on a prednisone 5 mg daily placed by his PCP Dr. Alfredo Vitals are stable Labs showing mild anemia with hemoglobin 10.8, rest of CBC, BMP and liver enzymes are unremarkable. Troponin is negative. Chest x-ray: Findings are consistent with mild pulmonary congestion EKG showing atrial fibrillation with controlled rate at [address]-T changes and QTC 422. 01/01/2023 Patient with bilateral leg swelling and redness but likely secondary to medication effect as well as mild diastolic CHF. I don't think the patient has actual infection or cellulitis. Patient has good urine output on 80 mg by mouth every 8 hours. This was transcribed goes by service advisor Also patient placed on cefazolin by ID team Continue to discontinue Norvasc and prednisone. 01/02/2023 Patient has no new complaint His leg swelling is improving slowly and gradually, both legs are wrapped with Miguel bandage today He remains on IV Lasix 80 mg 3 times a day and cefazolin DC Norvasc and prednisone Is also on the farxiga 01/03/2023 Patient is seen in follow-up today sleeping although easily arousable being followed by cardiology along with pulmonary and infectious disease. Patient is maintained on IV cefazolin with concerns of cellulitis of bilateral lower extremities. Patient does have chronic venous stasis along with generalized edema and edema is significantly improved. No active drainage noted and will continue IV cefazolin. Patient with chronic COPD as well as chest pain and shortness of breath being evaluated by cardiology and pulmonary recommend to continue with breathing treatments and will continue oral prednisone. Patient continues to endorse poor nail hygiene requesting podiatry to address this. Johanna burnett was consulted and evaluated by podiatry initially and will need outpatient follow-up to perform this is extensive nail care. This was discussed with the patient. Patient to continue on IV Lasix and will follow-up with repeat labs. To discuss further with pulmonary as well as cardiology about discharge planning. 01/04/2023 Patient is seen this morning being followed by pulmonary and cardiology along with infectious disease. Per nursing staff patient lost IV access and difficult to restart and we'll transition to oral. Patient has been diuresed on IV Lasix and will transition to 40 mg daily and also maintained on IV cefazolin with concerns of lower extremity cellulitis and will continue with Keflex. Patient with weakness requiring increased care needs and difficult to help himself perform ADLs is now agreeable to go to rehab for strength and mobility. Case management following working on possible ECF. Patient is currently afebrile denies chest pain or worsening shortness of breath. Patient is chronically maintained on 3 L and is currently maintaining oxygen saturations above 90% on this. We'll continue with breathing treatments as well. 01/06/2023 Patient seen and evaluated sitting up in a chair currently sleeping although arousable. Patient is maintaining on his chronic 3 L of oxygen and being maintained on oral Lasix and breathing treatments. Patient continues on oral Keflex with ID following with concerns of lower extremity cellulitis. Recommend to elevate lower extremities and continue with Miguel wrapping. Patient is afebrile denies chest pain or worsening shortness of breath. Recommend physical therapy daily. Patient is awaiting insurance authorization for rehab. Patient will be going to [facility] on the [place] once authorization is obtained. 01/07/2023 Patient is seen and evaluated in follow-up currently working with physical therapy continues with weakness with PT/OT therapy recommending rehab. Have been awaiting insurance authorization although now was told they are denying and recommending peer to peer review. Contacted insurance company and there is a scheduled review on Tuesday at 3 PM. Patient was admitted with CHF with COPD exacerbation and also lower extremity swelling with concerns of cellulitis. Cardiology and pulmonary were following and patient has transition to oral Lasix and continued on his chronic 3 L via nasal cannula. Patient is receiving treatments. Patient was seen and evaluated by podiatry due to his poorly kept toenails and feet and recommending ID consultation of which infectious disease is following and patient is maintained on oral Keflex and is having significant improvement in the lower extremity. Patient will need outpatient follow-up for vascular surgery services due to his chronic venous stasis changes most likely peripheral vascular disease. Patient with significant weakness would highly recommend physical therapy daily as well as going to rehab for strength and mobility as patient has been having difficulty managing ADLs on his own. Patient is currently afebrile with no reports of worsening shortness of breath or chest pain. Patient is tolerating diet with no reports of nausea or vomiting noted. Review of systems: Constitutional: No reports of fatigue, fever, or chills Cardiovascular: No reports of chest pain or palpitations Respiratory: reports of shortness of breath feels improved although continues with dyspnea with exertion GI: No reports of nausea, vomiting, or diarrhea : No reports of dysuria or retention Neurovascular: reports of generalized weakness and difficulty walking due to his continued swelling of the lower extremities and poorly kept toenails All medications have been reviewed Physical exam: GENERAL: The patient is asleep but arousable, alert and oriented x3, obese. Well developed, well nourished. HEENT: Pupils are round and equally reacting to light. EOMI. No scleral icterus. No conjunctival pallor. Normocephalic, atraumatic. No pharyngeal erythema. No thyromegaly. CARDIOVASCULAR: S1 and S2 muffled PULMONARY: Breath sounds diminished bilaterally with no wheezing, coarse rhonchi noted ABDOMEN: Soft, nontender, nondistended, normoactive bowel sounds. No palpable organomegaly. MUSCULOSKELETAL: No joint swelling or deformity. -EXTREMITIES: No cyanosis, clubbing, bilateral pedal edema improving. Redness and swelling improved bilateral lower extremities , nails are overgrown NEUROLOGICAL: Gross neurological examination did not reveal any focal deficits. Diffusely weak SKIN: No rashes. no petechiae. Assessment: Acute on chronic diastolic CHF Bilateral pitting leg edema, acute on chronic chronic atrial fibrillation on Eliquis and the rate is controlled Mycotic toenails and poorly kept bilaterally Chronic hypoxic respiratory failure, wears 3 L oxygen via nasal cannula outpatient Diabetes mellitus Hypertension Hyperlipidemia History of osteoarthritis History of GERD Diabetic neuropathy of feet and hands Chronic back pain Polyarthralgia History of falls History of anxiety and depression, not in activation Obese with BMI 38.5 GI prophylaxis, DVT prophylaxis No code Plan: Recommend continue current medications and management with pulmonary and cardiology following. Infectious disease following as well and maintained on oral Keflex as well as oral Lasix Recommend continue with Miguel wrapping to lower extremities and local wound care. Patient was evaluated initially by podiatry and will need outpatient follow-up for is extensive poor nail care on bilateral lower extremities. Recommend PT/OT therapy daily and patient was again evaluated today by therapy recommending rehab as patient continues with significant weakness and unable to perform ADLs on his own. Continuing to await insurance authorization which has gone to peer to peer medical review which is unable to be scheduled until Tuesday at 3 PM per insurance Will follow-up with repeat labs in the a.m. Given patient's significant comorbidities and noncompliance, prognosis is guarded The impression and plan of care has been dictated by Ange Becerra, Nurse Practitioner as directed. Dr. Alexander MD I have performed a history and examination and MDM of this patient, discussed the same with the dictator, and agree with the dictator's assessment and plan as written ,documented as a scribe. Based on total visit time, I have performed more than 50% of the visit. Objective - Vital Signs Vital signs: Vital Signs Temp 97.5 F L 01/07/23 15:35 Pulse 68 01/07/23 15:35 Resp 18 01/07/23 15:35 BP 116/68 01/07/23 15:35 Pulse Ox 96 01/07/23 15:35 FiO2 Intake & Output 01/06/23 01/07/23 01/07/23 18:59 06:59 18:59 Intake Total 1160 480 Output Total 300 1325 Balance 860 -1325 480 Intake: Oral 1160 480 Output: Urine 300 1325 Other: Voiding Method Urinal Urinal Urinal # Voids 3 1 # Bowel Movements 1 - Labs CBC & Chem 7: 01/04/23 08:20 01/04/23 08:20 Labs: Abnormal Lab Results - Last 24 Hours (Table) 01/06/23 01/06/23 01/07/23 Range/Units 16:17 20:30 11:47 POC Glucose (mg/dL) 123 H 164 H 120 H (70-110) mg/dL
[2023-01-07] MEDS: MELATONIN 3 MG TABLET PO PRN (23:19)
[2023-01-08 05:45] LABS: Glucose,Whole Blood 112 mg/dL (70-110)
[2023-01-08] MEDS: metFORMIN 500 MG TAB PO SCH ×2 (06:52→17:02)
[2023-01-08] MEDS: HYDROcodone/APAP 7.5-325MG 1 EACH TAB PO PRN ×4 (06:53→21:57)
[2023-01-08 08:20] LABS: Anisocytosis Slight; Basophils % (A) 0 %; Eosinophils # (A) 0.1 k/uL (0-0.7); Eosinophils % (A) 2 %; HCT 33.7 % (39.0-53.0); HGB 10.7 gm/dL (13.0-17.5); Lymphocytes # (A) 1.8 k/uL (1.0-4.8); Lymphocytes % (A) 23 %; MCH 28.2 pg (25.0-35.0); MCHC 31.7 g/dL (31.0-37.0); MCV 88.9 fL (80.0-100.0); Monocytes # (A) 0.8 k/uL (0-1.0); Monocytes % (A) 9 %; Neutrophils # (A) 5.2 k/uL (1.3-7.7); Neutrophils % (A) 64 %; Platelet Count 263 k/uL (150-450); Poikilocytosis Slight; RBC 3.79 m/uL (4.30-5.90); RDW 18.1 % (11.5-15.5); WBC 8.1 k/uL (3.8-10.6)
[2023-01-08] MEDS: SENNOSIDES 8.6 MG TAB PO SCH ×2 (08:22→19:32)
[2023-01-08] MEDS: TAMSULOSIN 0.4 MG CAP.ER.24H PO SCH (08:22)
[2023-01-08] MEDS: PREGABALIN 75 MG CAP PO SCH ×2 (08:22→19:32)
[2023-01-08] MEDS: CEPHALEXIN 500 MG CAP PO SCH ×3 (08:22→19:32)
[2023-01-08] MEDS: ESCITALOPRAM 5 MG TAB PO SCH (08:22)
[2023-01-08] MEDS: NICOTINE 21MG/24HR PATCH TRANSDERM SCH (08:22)
[2023-01-08] MEDS: FUROSEMIDE 40 MG TAB PO SCH (08:22)
[2023-01-08] MEDS: SPIRONOLACTONE 25 MG TAB PO SCH (08:22)
[2023-01-08] MEDS: APIXABAN 5 MG TAB PO SCH ×2 (08:22→19:32)
[2023-01-08] MEDS: DAPAGLIFLOZIN PROPANEDIOL 10 MG TABLET PO SCH (08:22)
[2023-01-08] MEDS: DULoxetine HCL 30 MG CAPSULE.DR PO SCH (08:22)
[2023-01-08] MEDS: METOPROLOL TARTRATE 50 MG TAB PO SCH ×2 (08:29→19:32)
[2023-01-08] MEDS: IPRATROPIUM-ALBUTEROL 3 ML NEB INHALATION PRN ×2 (08:34→20:48)
[2023-01-08] MEDS: SYMBICORT 160-4.5 MCG INHALER INHALATION SCH ×2 (08:35→20:48)
[2023-01-08 08:42] LABS: African American GFR (CKD) >90 (>60 ml/min/1.73 sqM); Anion Gap 5 mmol/L; Blood Urea Nitrogen 12 mg/dL (9-20); Calcium 8.7 mg/dL (8.4-10.2); Carbon Dioxide 32 mmol/L (22-30); Chloride 97 mmol/L (98-107); Glucose 87 mg/dL (74-99); Magnesium 1.8 mg/dL (1.6-2.3); Non-African American GFR(CKD) >90 (>60 ml/min/1.73 sqM); Potassium 4.2 mmol/L (3.5-5.1); Sodium 134 mmol/L (137-145)
[2023-01-08 11:43] LABS: Glucose,Whole Blood 102 mg/dL (70-110)
[2023-01-08 16:32] LABS: Glucose,Whole Blood 128 mg/dL (70-110)
--- NOTE | 2023-01-08 19:03 | P.PN ---
Subjective This is a pleasant 71 years old male with multiple medical problems including COPD, diabetes mellitus, hypertension, hyperlipidemia, osteoarthritis, GERD, diabetic neuropathy, chronic back pain, joint disease and falls He was recently in the hospital for COPD exacerbation and bilateral lower extremity edema and chronic CHF Patient presents because of bilateral patellar leg edema swelling and redness and erythema slowly get worse. He denies dyspnea. No chest pain. No change in urine or bowel habits Denies smoking alcohol or illicit drugs He is on 3 L oxygen at home. He is also on a prednisone 5 mg daily placed by his PCP Dr. Alfredo Vitals are stable Labs showing mild anemia with hemoglobin 10.8, rest of CBC, BMP and liver enzymes are unremarkable. Troponin is negative. Chest x-ray: Findings are consistent with mild pulmonary congestion EKG showing atrial fibrillation with controlled rate at [address]-T changes and QTC 422. 01/01/2023 Patient with bilateral leg swelling and redness but likely secondary to medicat ion effect as well as mild diastolic CHF. I don't think the patient has actual infection or cellulitis. Patient has good urine output on 80 mg by mouth every 8 hours. This was transcribed goes by ripening room operator Also patient placed on cefazolin by ID team Continue to discontinue Norvasc and prednisone. 01/02/2023 Patient has no new complaint His leg swelling is improving slowly and gradually, both legs are wrapped with Miguel bandage today He remains on IV Lasix 80 mg 3 times a day and cefazolin DC Norvasc and prednisone Is also on the farxiga 01/08/2023 Patient bilateral leg swelling is significantly improved. The suspicion of sigmoid this is low however he kept on Keflex Patient was cleared for discharge by cardiology and pulmonary team as well as infectious disease team He supposed to go to subacute rehab pending placement. Patient will need peer to peer evaluation prior to transfer to rehab for insurance authorization Patient is medically stable for discharge pending placement Patient today is comfortable with no new complaints. Patient eats well, no constipation urine is fine. Patient informed the need to follow-up with vascular surgery Dr. Lara in 1-2 weeks after discharge for lower extremity evaluation and he agrees. Contact information provided for Objective - Vital Signs Vital signs: Vital Signs Temp 97.7 F 01/08/23 08:00 Pulse 76 01/08/23 08:45 Resp 18 01/08/23 08:00 BP 104/63 01/08/23 08:00 Pulse Ox 94 L 01/08/23 08:35 FiO2 Intake & Output 01/07/23 01/08/23 01/08/23 18:59 06:59 18:59 Intake Total 480 720 240 Output Total 525 1000 Balance -45 -280 240 Intake: Oral 480 720 240 Output: Urine 525 1000 Other: Voiding Method Urinal Urinal Urinal # Voids 1 # Bowel Movements 1 - Exam GENERAL: The patient is alert and oriented x3, not in any acute distress. Well developed, well nourished. HEENT: Pupils are round and equally reacting to light. EOMI. No scleral icterus. No conjunctival pallor. Normocephalic, atraumatic. No pharyngeal erythema. No thyromegaly. CARDIOVASCULAR: S1 and S2 present. No murmurs, rubs, or gallops. PULMONARY: Chest is clear to auscultation, no wheezing or crackles. ABDOMEN: Soft, nontender, nondistended, normoactive bowel sounds. No palpable organomegaly. MUSCULOSKELETAL: No joint swelling or deformity. -EXTREMITIES: No cyanosis, clubbing, bilateral pitting leg edema has significantly resolved NEUROLOGICAL: Gross neurological examination did not reveal any focal deficits. SKIN: No rashes. no petechiae. - Labs CBC & Chem 7: 01/08/23 06:55 01/08/23 06:55 Labs: Abnormal Lab Results - Last 24 Hours (Table) 01/07/23 01/07/23 01/08/23 Range/Units 16:31 20:03 05:44 RBC (4.30-5.90) m/uL Hgb (13.0-17.5) gm/dL Hct (39.0-53.0) % RDW (11.5-15.5) % Sodium (137-145) mmol/L Chloride (98-107) mmol/L Carbon Dioxide (22-30) mmol/L Creatinine (0.66-1.25) mg/dL POC Glucose (mg/dL) 204 H 132 H 112 H (70-110) mg/dL 01/08/23 01/08/23 Range/Units 06:55 06:55 RBC 3.79 L (4.30-5.90) m/uL Hgb 10.7 L (13.0-17.5) gm/dL Hct 33.7 L (39.0-53.0) % RDW 18.1 H (11.5-15.5) % Sodium 134 L (137-145) mmol/L Chloride 97 L (98-107) mmol/L Carbon Dioxide 32 H (22-30) mmol/L Creatinine 0.65 L (0.66-1.25) mg/dL POC Glucose (mg/dL) (70-110) mg/dL Assessment and Plan Assessment: Acute on chronic diastolic CHF Bilateral pitting leg edema, acute on chronic chronic atrial fibrillation on Eliquis and the rate is controlled Chronic hypoxic respiratory failure with related to her oxygen via nasal cannula Diabetes mellitus Hypertension Hyperlipidemia History of osteoarthritis History of GERD Diabetic neuropathy of feet and hands Chronic back pain Polyarthralgia History of falls History of anxiety and depression, not in activation Obese with BMI 38.5 Plan: Dear by dense Currently On liquids and Keflex as well as oral Lasix needs peer to peer evaluation on tuesday for insurance authorization Instructed to follow up for vascular surgery Dr. Lara as an outpatient, nonurgent better. Patient currently asymptomatic Labs and medication were reviewed.. Continue same treatment. Continue with symptomatic treatment. Resume home medication. Monitor labs and vitals. DVT and GI prophylaxis. Further recommendations as per clinical course of the patient DVT prophylaxis: Eliquis GI Prophylaxis: Pepcid PT/Osubacute rehab pending placedPrognosis is guarded
[2023-01-08] MEDS: ATORVASTATIN 40 MG TAB PO SCH (19:32)
[2023-01-08 21:17] LABS: Glucose,Whole Blood 136 mg/dL (70-110)
[2023-01-08] MEDS: MELATONIN 3 MG TABLET PO PRN (21:58)
[2023-01-09] MEDS: HYDROcodone/APAP 7.5-325MG 1 EACH TAB PO PRN ×5 (01:40→22:30)
[2023-01-09] MEDS: metFORMIN 500 MG TAB PO SCH ×2 (06:22→16:41)
[2023-01-09 06:32] LABS: Glucose,Whole Blood 117 mg/dL (70-110)
[2023-01-09] MEDS: SYMBICORT 160-4.5 MCG INHALER INHALATION SCH ×2 (08:20→22:14)
[2023-01-09] MEDS: ESCITALOPRAM 5 MG TAB PO SCH (08:26)
[2023-01-09] MEDS: PREGABALIN 75 MG CAP PO SCH ×2 (08:27→20:48)
[2023-01-09] MEDS: APIXABAN 5 MG TAB PO SCH ×2 (08:27→20:48)
[2023-01-09] MEDS: DULoxetine HCL 30 MG CAPSULE.DR PO SCH (08:27)
[2023-01-09] MEDS: CEPHALEXIN 500 MG CAP PO SCH ×3 (08:27→20:48)
[2023-01-09] MEDS: TAMSULOSIN 0.4 MG CAP.ER.24H PO SCH (08:27)
[2023-01-09] MEDS: SPIRONOLACTONE 25 MG TAB PO SCH (08:27)
[2023-01-09] MEDS: DAPAGLIFLOZIN PROPANEDIOL 10 MG TABLET PO SCH (08:27)
[2023-01-09] MEDS: FUROSEMIDE 40 MG TAB PO SCH (08:27)
[2023-01-09] MEDS: NICOTINE 21MG/24HR PATCH TRANSDERM SCH (08:27)
[2023-01-09] MEDS: METOPROLOL TARTRATE 50 MG TAB PO SCH ×2 (08:27→20:48)
[2023-01-09] MEDS: SENNOSIDES 8.6 MG TAB PO SCH ×2 (08:27→20:49)
--- NOTE | 2023-01-09 09:04 | P.PN ---
Subjective Progress Note Date: 01/07/23 Principal diagnosis: Bilateral lower extremity cellulitis Patient is a 72-year-old male with a past medical history significant for atrial fibrillation diabetes mellitus COPD hypertension hyperlipidemia and diabetic neuropathy patient did have a history of bilateral lower extremity venous stasis ulceration and cellulitis, patient presenting to the hospital for evaluation of increasing shortness of breath and bilateral extremity swelling, and concern for bilateral lower extremity cellulitis On today's evaluation that is 01/07/2023, the patient continues to be afebrile, the patient is breathing comfortably on 2 L nasal cannula oxygen, the patient denies chest pain occasional cough no abdominal pain, the patient pain to the lower extremity has decreased in intensity Objective - Vital Signs Vital signs: Vital Signs Temp 98.2 F 01/07/23 11:04 Pulse 78 01/07/23 12:36 Resp 18 01/07/23 11:04 BP 108/68 01/07/23 11:04 Pulse Ox 100 01/07/23 11:04 FiO2 Intake & Output 01/06/23 01/07/23 01/07/23 18:59 06:59 18:59 Intake Total 1160 240 Output Total 300 1325 Balance 860 -1325 240 Intake: Oral 1160 240 Output: Urine 300 1325 Other: Voiding Method Urinal Urinal Urinal # Voids 3 1 # Bowel Movements 1 - Exam GENERAL DESCRIPTION: An elderly male up in the chair in no distress RESPIRATORY SYSTEM: Unlabored breathing , decreased breath sounds at bases HEART: S1 S2 regular rate and rhythm , ABDOMEN: Soft no tenderness EXTREMITIES: Bilateral lower extremity redness has improved still swollen - Labs CBC & Chem 7: 01/08/23 06:55 01/08/23 06:55 Labs: Abnormal Lab Results - Last 24 Hours (Table) 01/06/23 01/06/23 01/07/23 Range/Units 16:17 20:30 11:47 POC Glucose (mg/dL) 123 H 164 H 120 H (70-110) mg/dL Assessment and Plan (1) Bilateral lower leg cellulitis Current Visit: Yes Status: Acute Code(s): L03.116 - CELLULITIS OF LEFT LOWER LIMB; L03.115 - CELLULITIS OF RIGHT LOWER LIMB SNOMED Code(s): 496331685 Plan: 1patient was in the hospital with increasing shortness of breath also with increasing bilateral lower extremity swelling superficial ulceration, patient did have evidence of erythema warm to touch elevated inflammatory markers and a left shift on WBC of concern for possible cellulitis likely from gram-positive skin xu. 2patient with multiple antibiotic allergies that would limit the number of antibiotics safe to use 3-patient has shown some clinical improvement, patient to continue with oral Keflex for a week and monitor clinical course closely Time with Patient: Less than 30
--- NOTE | 2023-01-09 09:05 | P.PN ---
Subjective Progress Note Date: 01/08/23 Principal diagnosis: Bilateral lower extremity cellulitis Patient is a 72-year-old male with a past medical history significant for atrial fibrillation diabetes mellitus COPD hypertension hyperlipidemia and diabetic neuropathy patient did have a history of bilateral lower extremity venous stasis ulceration and cellulitis, patient presenting to the hospital for evaluation of increasing shortness of breath and bilateral extremity swelling, and concern for bilateral lower extremity cellulitis On today's evaluation that is 01/08/2023, the patient remains to be afebrile, the patient is breathing comfortably on 3L nasal cannula oxygen, the patient denies chest pain occasional cough no abdominal pain, the patient pain to the lower extremity has decreased in intensity, no new symptoms Objective - Vital Signs Vital signs: Vital Signs Temp 97.7 F 01/08/23 08:00 Pulse 76 01/08/23 08:45 Resp 18 01/08/23 08:00 BP 104/63 01/08/23 08:00 Pulse Ox 94 L 01/08/23 08:35 FiO2 Intake & Output 01/07/23 01/08/23 01/08/23 18:59 06:59 18:59 Intake Total 480 720 240 Output Total 525 1000 Balance -45 -280 240 Intake: Oral 480 720 240 Output: Urine 525 1000 Other: Voiding Method Urinal Urinal Urinal # Voids 1 # Bowel Movements 1 - Exam GENERAL DESCRIPTION: An elderly male up in the chair in no distress RESPIRATORY SYSTEM: Unlabored breathing , decreased breath sounds at bases HEART: S1 S2 regular rate and rhythm , ABDOMEN: Soft no tenderness EXTREMITIES: Bilateral lower extremity redness has improved still swollen - Labs CBC & Chem 7: 01/08/23 06:55 01/08/23 06:55 Labs: Abnormal Lab Results - Last 24 Hours (Table) 01/07/23 01/07/23 01/08/23 Range/Units 16:31 20:03 05:44 RBC (4.30-5.90) m/uL Hgb (13.0-17.5) gm/dL Hct (39.0-53.0) % RDW (11.5-15.5) % Sodium (137-145) mmol/L Chloride (98-107) mmol/L Carbon Dioxide (22-30) mmol/L Creatinine (0.66-1.25) mg/dL POC Glucose (mg/dL) 204 H 132 H 112 H (70-110) mg/dL 01/08/23 01/08/23 Range/Units 06:55 06:55 RBC 3.79 L (4.30-5.90) m/uL Hgb 10.7 L (13.0-17.5) gm/dL Hct 33.7 L (39.0-53.0) % RDW 18.1 H (11.5-15.5) % Sodium 134 L (137-145) mmol/L Chloride 97 L (98-107) mmol/L Carbon Dioxide 32 H (22-30) mmol/L Creatinine 0.65 L (0.66-1.25) mg/dL POC Glucose (mg/dL) (70-110) mg/dL Assessment and Plan (1) Bilateral lower leg cellulitis Current Visit: Yes Status: Acute Code(s): L03.116 - CELLULITIS OF LEFT LOWER LIMB; L03.115 - CELLULITIS OF RIGHT LOWER LIMB SNOMED Code(s): 898659149 Plan: 1patient was in the hospital with increasing shortness of breath also with increasing bilateral lower extremity swelling superficial ulceration, patient did have evidence of erythema warm to touch elevated inflammatory markers and a left shift on WBC of concern for possible cellulitis likely from gram-positive skin xu. 2patient with multiple antibiotic allergies that would limit the number of antibiotics safe to use 3-patient has shown some clinical improvement as for his bilateral leg cellulitis is concerned, patient to continue with oral Keflex for a week and monitor clinical course closely Time with Patient: Less than 30
--- NOTE | 2023-01-09 11:25 | P.PN ---
Subjective This is a pleasant 71 years old male with multiple medical problems including COPD, diabetes mellitus, hypertension, hyperlipidemia, osteoarthritis, GERD, diabetic neuropathy, chronic back pain, joint disease and falls He was recently in the hospital for COPD exacerbation and bilateral lower extremity edema and chronic CHF Patient presents because of bilateral patellar leg edema swelling and redness and erythema slowly get worse. He denies dyspnea. No chest pain. No change in urine or bowel habits Denies smoking alcohol or illicit drugs He is on 3 L oxygen at home. He is also on a prednisone 5 mg daily placed by his PCP Dr. Alfredo Vitals are stable Labs showing mild anemia with hemoglobin 10.8, rest of CBC, BMP and liver enzymes are unremarkable. Troponin is negative. Chest x-ray: Findings are consistent with mild pulmonary congestion EKG showing atrial fibrillation with controlled rate at [address]-T changes and QTC 422. 01/01/2023 Patient with bilateral leg swelling and redness but likely secondary to medicat ion effect as well as mild diastolic CHF. I don't think the patient has actual infection or cellulitis. Patient has good urine output on 80 mg by mouth every 8 hours. This was transcribed goes by figure refinisher and repairer Also patient placed on cefazolin by ID team Continue to discontinue Norvasc and prednisone. 01/02/2023 Patient has no new complaint His leg swelling is improving slowly and gradually, both legs are wrapped with Miguel bandage today He remains on IV Lasix 80 mg 3 times a day and cefazolin DC Norvasc and prednisone Is also on the farxiga 01/08/2023 Patient bilateral leg swelling is significantly improved. The suspicion of sigmoid this is low however he kept on Keflex Patient was cleared for discharge by cardiology and pulmonary team as well as infectious disease team He supposed to go to subacute rehab pending placement. Patient will need peer to peer evaluation prior to transfer to rehab for insurance authorization Patient is medically stable for discharge pending placement Patient today is comfortable with no new complaints. Patient eats well, no constipation urine is fine. Patient informed the need to follow-up with vascular surgery Dr. Lara in 1-2 weeks after discharge for lower extremity evaluation and he agrees. Contact information provided for 01/09/2023 Patient lying in bed comfortable going of the bed of the thyroid gland complaining of from chronic leg pain for many months Limits swelling significantly improved. No chest pain or dyspnea. He is on 3 L oxygen at home, we will lower his for a permanent down to 3 days to monitor Patient is a letter with a recommendation for follow-up as an outpatient and he is agreeable to it. Patient is medically stable for discharge pending placement ( will require peer to peer review on tuesday) Objective - Vital Signs Vital signs: Vital Signs Temp 97.8 F 01/09/23 08:00 Pulse 95 01/09/23 08:00 Resp 18 01/09/23 08:00 BP 108/59 01/09/23 08:00 Pulse Ox 94 L 01/09/23 08:00 FiO2 Intake & Output 01/08/23 01/09/23 01/09/23 18:59 06:59 18:59 Intake Total 1080 240 Output Total 200 1100 Balance 880 -860 Intake: Oral 1080 240 Output: Urine 200 1100 Other: Voiding Method Urinal Urinal Urinal # Voids 1 # Bowel Movements 1 - Exam GENERAL: The patient is alert and oriented x3, not in any acute distress. Well developed, well nourished. HEENT: Pupils are round and equally reacting to light. EOMI. No scleral icterus. No conjunctival pallor. Normocephalic, atraumatic. No pharyngeal erythema. No thyromegaly. CARDIOVASCULAR: S1 and S2 present. No murmurs, rubs, or gallops. PULMONARY: Chest is clear to auscultation, no wheezing or crackles. ABDOMEN: Soft, nontender, nondistended, normoactive bowel sounds. No palpable o rganomegaly. MUSCULOSKELETAL: No joint swelling or deformity. -EXTREMITIES: No cyanosis, clubbing, bilateral pitting leg edema has significantly resolved NEUROLOGICAL: Gross neurological examination did not reveal any focal deficits. SKIN: No rashes. no petechiae. - Labs CBC & Chem 7: 01/08/23 06:55 01/08/23 06:55 Labs: Abnormal Lab Results - Last 24 Hours (Table) 01/08/23 01/08/23 01/09/23 Range/Units 16:31 21:12 06:31 POC Glucose (mg/dL) 128 H 136 H 117 H (70-110) mg/dL Assessment and Plan Assessment: Acute on chronic diastolic CHF Bilateral pitting leg edema, acute on chronic chronic atrial fibrillation on Eliquis and the rate is controlled Chronic hypoxic respiratory failure with related to her oxygen via nasal cannula Diabetes mellitus Hypertension Hyperlipidemia History of osteoarthritis History of GERD Diabetic neuropathy of feet and hands Chronic back pain Polyarthralgia History of falls History of anxiety and depression, not in activation Obese with BMI 38.5 Plan: Dear by martinez Currently On liquids and Keflex as well as oral Lasix needs peer to peer evaluation on tuesday for insurance authorization Instructed to follow up for vascular surgery Dr. Lara as an outpatient, nonurgent better. Patient currently asymptomatic Labs and medication were reviewed.. Continue same treatment. Continue with symptomatic treatment. Resume home medication. Monitor labs and vitals. DVT and GI prophylaxis. Further recommendations as per clinical course of the patient DVT prophylaxis: Eliquis GI Prophylaxis: Pepcid PT/Osubacute rehab pending placedPrognosis is guarded
[2023-01-09 11:34] LABS: Glucose,Whole Blood 107 mg/dL (70-110)
[2023-01-09 16:33] LABS: Glucose,Whole Blood 114 mg/dL (70-110)
[2023-01-09 20:36] LABS: Glucose,Whole Blood 119 mg/dL (70-110)
[2023-01-09] MEDS: ACETAMINOPHEN TAB 325 MG TAB PO PRN (20:48)
[2023-01-09] MEDS: ATORVASTATIN 40 MG TAB PO SCH (20:48)
[2023-01-09] MEDS: MELATONIN 3 MG TABLET PO PRN (20:49)
[2023-01-09] MEDS: IPRATROPIUM-ALBUTEROL 3 ML NEB INHALATION PRN (22:14)
[2023-01-10] MEDS: HYDROcodone/APAP 7.5-325MG 1 EACH TAB PO PRN ×5 (04:30→21:01)
[2023-01-10 06:13] LABS: Glucose,Whole Blood 93 mg/dL (70-110)
[2023-01-10] MEDS: metFORMIN 500 MG TAB PO SCH ×2 (06:24→16:33)
[2023-01-10] MEDS: SYMBICORT 160-4.5 MCG INHALER INHALATION SCH ×2 (07:21→21:25)
[2023-01-10] MEDS: IPRATROPIUM-ALBUTEROL 3 ML NEB INHALATION PRN ×2 (07:22→21:25)
[2023-01-10] MEDS: DULoxetine HCL 30 MG CAPSULE.DR PO SCH (08:20)
[2023-01-10] MEDS: ESCITALOPRAM 5 MG TAB PO SCH (08:20)
[2023-01-10] MEDS: METOPROLOL TARTRATE 50 MG TAB PO SCH ×2 (08:20→21:45)
[2023-01-10] MEDS: SPIRONOLACTONE 25 MG TAB PO SCH (08:20)
[2023-01-10] MEDS: TAMSULOSIN 0.4 MG CAP.ER.24H PO SCH (08:20)
[2023-01-10] MEDS: DAPAGLIFLOZIN PROPANEDIOL 10 MG TABLET PO SCH (08:20)
[2023-01-10] MEDS: NICOTINE 21MG/24HR PATCH TRANSDERM SCH (08:20)
[2023-01-10] MEDS: FUROSEMIDE 40 MG TAB PO SCH (08:20)
[2023-01-10] MEDS: CEPHALEXIN 500 MG CAP PO SCH ×3 (08:20→21:46)
[2023-01-10] MEDS: PREGABALIN 75 MG CAP PO SCH ×2 (08:20→21:45)
[2023-01-10] MEDS: SENNOSIDES 8.6 MG TAB PO SCH ×2 (08:20→21:46)
[2023-01-10] MEDS: APIXABAN 5 MG TAB PO SCH ×2 (08:20→21:45)
[2023-01-10 11:14] LABS: Glucose,Whole Blood 102 mg/dL (70-110)
[2023-01-10] MEDS: ACETAMINOPHEN TAB 325 MG TAB PO PRN (11:34)
--- NOTE | 2023-01-10 16:02 | P.DS ---
Providers Date of admission: 12/31/22 13:40 Attending physician: Tigre Geiger MD Consults: 12/31/22 13:31 Consult Physician Routine Consulting Provider: Sajan Haile Consult Reason/Comments: b/l feet swelling Do you want consulting provider notified?: Yes 12/31/22 17:35 Consult Physician Urgent Consulting Provider: Paulo De Anda Consult Reason/Comments: lower extremity redness/swelling Do you want consulting provider notified?: Yes 01/03/23 03:31 Consult Physician Routine Consulting Provider: Calvin Martin Consult Reason/Comments: Increased shortness of breath Do you want consulting provider notified?: Yes Primary care physician: [facility] Hospital Course: Diagnoses Acute on chronic diastolic CHF Bilateral pitting leg edema, acute on chronic chronic atrial fibrillation on Eliquis and the rate is controlled Chronic hypoxic respiratory failure with related to her oxygen via nasal cannula Diabetes mellitus Hypertension Hyperlipidemia History of osteoarthritis History of GERD Diabetic neuropathy of feet and hands Chronic back pain Polyarthralgia History of falls History of anxiety and depression, not in activation Obese with BMI 38.5 Hospital course: This is a pleasant 71 years old male with multiple medical problems including COPD, diabetes mellitus, hypertension, hyperlipidemia, osteoarthritis, GERD, diabetic neuropathy, chronic back pain, joint disease and falls He was recently in the hospital for COPD exacerbation and bilateral lower extremity edema and chronic CHF Patient presents because of bilateral pitting leg edema swelling and redness and erythema slowly get worse. Patient has been evaluated by cardiology, infectious disease and pulmonary team. Patient was found to COPD exacerbation, CHF exacerbation and possible bilateral leg cellulitis Patient was treated with antibiotics and there, patient showed interval improvement in his leg swelling is significantly improved. Currently his Eliquis, Keflex 500 Mg As Well As Lasix. Patient Has Been Clinically Stable. He Denies Any Chest Pain or Dyspnea. No Change in Urine or Bowel Habits. No Fever Patient was cleared for discharge by all consultants Problems and management plan were discussed with the patient and he verbalized understanding and acceptance Patient was found stable and can be discharged home in guarded prognosis however he needs follow-up as an outpatient. Patient was instructed to follow up with PCP Dr. April lawson within one week and patient agrees Patient was instructed to follow up with Dr. Sanders in 1-2 weeks Because of ongoing redness in his leg and chronic back pain recommended vascular surgery evaluation with Dr. Lara which can performed as an outpatient, patient informed and he agrees to admission and divided Physical exam Gen: patient is a AAOx3, no distress CVS: S1-S2, RRR, no murmur Lungs: B/L CTA, no wheezing Abdomen: soft, no distention, no tenderness, positive bowel sounds Extremity: no leg edema or induration. Bilateral leg erythema, significantly improved. Time spent more than 35 minutes Patient Condition at Discharge: Fair Plan - Discharge Summary Discharge Rx Participant: No New Discharge Prescriptions: New HYDROcodone/APAP 7.5-325MG [Anthon 7.5-325] 1 each PO Q4H PRN #4 tab PRN Reason: Pain Dapagliflozin Propanediol [Farxiga] 10 mg PO DAILY tab Cephalexin [Keflex] 500 mg PO TID 10 Days #30 cap Furosemide [Lasix] 40 mg PO DAILY tab Sennosides [Senokot] 8.6 mg PO BID tab SILVER sulfADIAZINE CREAM [Silvadene Cream] 1 applic TOPICAL DAILY each Budesonide-Formot 160-4.5 Mcg [Symbicort 160-4.5 Mcg Inhaler] 2 puff INHALATION RT-BID each Acetaminophen Tab [Tylenol] 650 mg PO Q6HR PRN tab PRN Reason: Fever And/ Or Pain Continue Albuterol Nebulized [Ventolin Nebulized] 2.5 mg INHALATION RT-Q6H PRN PRN Reason: Shortness Of Breath Apixaban [Eliquis] 5 mg PO BID #60 tab Omeprazole 40 mg PO DAILY Escitalopram [Lexapro] 5 mg PO DAILY metFORMIN HCL [Glucophage] 500 mg PO BID tab Spironolactone [Aldactone] 25 mg PO DAILY #30 tab Fluticasone/Vilanterol [Breo Ellipta 100-25 Mcg Inhaler] 1 puff INHALATION RT-DAILY DULoxetine HCL [Cymbalta] 30 mg PO DAILY Umeclidinium Cor[place] [Incruse Ellipta] 1 puff INHALATION RT-DAILY HYDROcodone/APAP 7.5-325MG [Anthon 7.5-325] 1 tab PO Q4H PRN #4 tab PRN Reason: Pain Ipratropium-Albuterol Nebulize [Duoneb 0.5 mg-3 mg/3 ml Soln] 3 ml INHALATION RT-Q6H PRN PRN Reason: Shortness Of Breath Or Wheezing Tamsulosin [Flomax] 0.4 mg PO DAILY Fluticasone Nasal Jennings [Flonase Nasal Jennings] 1 spray EA NOSTRIL Q12H PRN PRN Reason: nasal drainage Potassium Chloride [Klor-Con 10 ER] 10 meq PO DAILY Theophylline Anhydrous [Theophylline] 400 mg PO DAILY Albuterol Sulfate [Proair Hfa] 2 puff INHALATION RT-Q6H PRN PRN Reason: Shortness Of Breath Metoprolol Tartrate [Lopressor] 50 mg PO BID tab Nicotine 21Mg/24Hr Patch [Habitrol] 1 patch TRANSDERM DAILY #3 patch Melatonin 6 mg PO HS PRN 10 Days #20 tab PRN Reason: Insomnia Clopidogrel [Plavix] 75 mg PO DAILY Atorvastatin Calcium [Lipitor] 40 mg PO HS Pregabalin [Lyrica] 75 mg PO BID #6 cap Discontinued predniSONE 5 mg PO DAILY Furosemide [Lasix] 40 mg PO BID #60 tab amLODIPine [Norvasc] 10 mg PO DAILY Discharge Medication List Albuterol Nebulized [Ventolin Nebulized] 2.5 mg INHALATION RT-Q6H PRN 05/08/20 [History] Apixaban [Eliquis] 5 mg PO BID #60 tab 07/08/20 [Rx] Ipratropium-Albuterol Nebulize [Duoneb 0.5 mg-3 mg/3 ml Soln] 3 ml INHALATION RT-Q6H PRN 05/02/21 [History] Tamsulosin [Flomax] 0.4 mg PO DAILY 12/07/21 [History] Albuterol Sulfate [Proair Hfa] 2 puff INHALATION RT-Q6H PRN 02/18/22 [History] Fluticasone Nasal Jennings [Flonase Nasal Jennings] 1 spray EA NOSTRIL Q12H PRN 02/18/22 [History] Potassium Chloride [Klor-Con 10 ER] 10 meq PO DAILY 02/18/22 [History] Theophylline Anhydrous [Theophylline] 400 mg PO DAILY 02/18/22 [History] Escitalopram [Lexapro] 5 mg PO DAILY 08/29/22 [History] Omeprazole 40 mg PO DAILY 08/29/22 [History] Metoprolol Tartrate [Lopressor] 50 mg PO BID tab 09/07/22 [Rx] metFORMIN HCL [Glucophage] 500 mg PO BID tab 09/07/22 [Rx] Melatonin 6 mg PO HS PRN 10 Days #20 tab 11/29/22 [Rx] Nicotine 21Mg/24Hr Patch [Habitrol] 1 patch TRANSDERM DAILY #3 patch 11/29/22 [Rx] Spironolactone [Aldactone] 25 mg PO DAILY #30 tab 11/29/22 [Rx] Atorvastatin Calcium [Lipitor] 40 mg PO HS 12/31/22 [History] Clopidogrel [Plavix] 75 mg PO DAILY 12/31/22 [History] DULoxetine HCL [Cymbalta] 30 mg PO DAILY 12/31/22 [History] Fluticasone/Vilanterol [Breo Ellipta 100-25 Mcg Inhaler] 1 puff INHALATION RT- DAILY 12/31/22 [History] Umeclidinium Corwith [Incruse Ellipta] 1 puff INHALATION RT-DAILY 12/31/22 [History] Acetaminophen Tab [Tylenol] 650 mg PO Q6HR PRN tab 01/05/23 [Rx] Budesonide-Formot 160-4.5 Mcg [Symbicort 160-4.5 Mcg Inhaler] 2 puff INHALATION RT-BID each 01/05/23 [Rx] Cephalexin [Keflex] 500 mg PO TID 10 Days #30 cap 01/05/23 [Rx] Dapagliflozin Propanediol [Farxiga] 10 mg PO DAILY tab 01/05/23 [Rx] Furosemide [Lasix] 40 mg PO DAILY tab 01/05/23 [Rx] HYDROcodone/APAP 7.5-325MG [Anthon 7.5-325] 1 each PO Q4H PRN #4 tab 01/05/23 [Rx] HYDROcodone/APAP 7.5-325MG [Anthon 7.5-325] 1 tab PO Q4H PRN #4 tab 01/05/23 [Rx] Pregabalin [Lyrica] 75 mg PO BID #6 cap 01/05/23 [Rx] SILVER sulfADIAZINE CREAM [Silvadene Cream] 1 applic TOPICAL DAILY each 01/05/23 [Rx] Sennosides [Senokot] 8.6 mg PO BID tab 01/05/23 [Rx] Follow up Appointment(s)/Referral(s): Lucille Daniels MD [STAFF PHYSICIAN] - 1 Week Sajan Haile DPM [STAFF PHYSICIAN] - 1 Week [facility], [NON-STAFF] - [facility] [NON-STAFF] - [facility], [NON-STAFF] - As Needed Elver Jackson MD [Primary Care Provider] - 1-2 days Patient Instructions/Handouts: Pulmonary Edema (DC), Cellulitis (GEN) Activity/Diet/Wound Care/Special Instructions: Patient is going to ECF Activity as tolerated Continue current medications as prescribed Continue antibiotics for 10 days limited to discontinue Continue to use Miguel wraps to lower his extremities and wound care and elevate while at rest Continue breathing treatments and supplement oxygen and follow-up pulmonary outpatient Patient needs podiatry outpatient in 1-2 weeks Discharge/Stand Alone Forms: Who Do I Call?, Community Resources, Personal Environmental Studies Department Chair Discharge Disposition: TRANSFER TO SNF/ECF
[2023-01-10 16:35] LABS: Glucose,Whole Blood 155 mg/dL (70-110)
[2023-01-10 20:37] LABS: Glucose,Whole Blood 131 mg/dL (70-110)
[2023-01-10] MEDS: ATORVASTATIN 40 MG TAB PO SCH (21:46)
--- NOTE | 2023-01-10 22:05 | P.PN ---
Subjective Progress Note Date: 01/09/23 Principal diagnosis: Bilateral lower extremity cellulitis Patient is a 72-year-old male with a past medical history significant for atrial fibrillation diabetes mellitus COPD hypertension hyperlipidemia and diabetic neuropathy patient did have a history of bilateral lower extremity venous stasis ulceration and cellulitis, patient presenting to the hospital for evaluation of increasing shortness of breath and bilateral extremity swelling, and concern for bilateral lower extremity cellulitis On today's evaluation that is 01/09/2023, the patient continues to be afebrile, the patient is breathing comfortably on 3L nasal cannula oxygen, the patient denies chest pain, the patient did have occasional cough no abdominal pain, the patient pain to the lower extremity has decreased in intensity Objective - Vital Signs Vital signs: Vital Signs Temp 97.4 F L 01/09/23 01:43 Pulse 87 01/09/23 01:43 Resp 15 01/09/23 01:43 BP 101/68 01/09/23 01:43 Pulse Ox 93 L 01/09/23 01:43 FiO2 Intake & Output 01/08/23 01/09/23 01/09/23 18:59 06:59 18:59 Intake Total 1080 240 Output Total 200 1100 Balance 880 -860 Intake: Oral 1080 240 Output: Urine 200 1100 Other: Voiding Method Urinal Urinal # Voids 1 # Bowel Movements 1 - Exam GENERAL DESCRIPTION: An elderly male up in the chair in no distress RESPIRATORY SYSTEM: Unlabored breathing , decreased breath sounds at bases HEART: S1 S2 regular rate and rhythm , ABDOMEN: Soft no tenderness EXTREMITIES: Bilateral lower extremity redness has improved still swollen - Labs CBC & Chem 7: 01/08/23 06:55 01/08/23 06:55 Labs: Abnormal Lab Results - Last 24 Hours (Table) 01/08/23 01/08/23 01/09/23 Range/Units 16:31 21:12 06:31 POC Glucose (mg/dL) 128 H 136 H 117 H (70-110) mg/dL Assessment and Plan (1) Bilateral lower leg cellulitis Current Visit: Yes Status: Acute Code(s): L03.116 - CELLULITIS OF LEFT LOWER LIMB; L03.115 - CELLULITIS OF RIGHT LOWER LIMB SNOMED Code(s): 791804528 Plan: 1patient was in the hospital with increasing shortness of breath also with increasing bilateral lower extremity swelling superficial ulceration, patient did have evidence of erythema warm to touch elevated inflammatory markers and a left shift on WBC of concern for possible cellulitis likely from gram-positive skin xu. 2patient with multiple antibiotic allergies that would limit the number of antibiotics safe to use 3-patient slowly clinically improving as for his bilateral leg cellulitis is concerned, patient to continue with oral Keflex and monitor clinical course closely Time with Patient: Less than 30
--- NOTE | 2023-01-10 22:06 | P.PN ---
Subjective Progress Note Date: 01/10/23 Principal diagnosis: Bilateral lower extremity cellulitis Patient is a 72-year-old male with a past medical history significant for atrial fibrillation diabetes mellitus COPD hypertension hyperlipidemia and diabetic neuropathy patient did have a history of bilateral lower extremity venous stasis ulceration and cellulitis, patient presenting to the hospital for evaluation of increasing shortness of breath and bilateral extremity swelling, and concern for bilateral lower extremity cellulitis On today's evaluation that is 01/10/2023, the patient remains to be afebrile, the patient is breathing comfortably on 3L nasal cannula oxygen, the patient denies chest pain, the patient did have occasional cough, the patient still complaining of swelling to the leg but no significant pain no abdominal pain or diarrhea Objective - Vital Signs Vital signs: Vital Signs Temp 97.5 F L 01/10/23 06:57 Pulse 68 01/10/23 07:36 Resp 18 01/10/23 06:57 BP 107/72 01/10/23 06:57 Pulse Ox 95 01/10/23 07:22 FiO2 Intake & Output 01/09/23 01/10/23 01/10/23 18:59 06:59 18:59 Output Total 750 800 300 Balance -750 -800 -300 Output: Urine 750 800 300 Other: Voiding Method Urinal Urinal - Exam GENERAL DESCRIPTION: An elderly male up in the chair in no distress RESPIRATORY SYSTEM: Unlabored breathing , decreased breath sounds at bases HEART: S1 S2 regular rate and rhythm , ABDOMEN: Soft no tenderness EXTREMITIES: Bilateral lower extremity redness has improved still swollen - Labs CBC & Chem 7: 01/08/23 06:55 01/08/23 06:55 Labs: Abnormal Lab Results - Last 24 Hours (Table) 01/09/23 01/09/23 Range/Units 16:31 20:34 POC Glucose (mg/dL) 114 H 119 H (70-110) mg/dL Assessment and Plan (1) Bilateral lower leg cellulitis Current Visit: Yes Status: Acute Code(s): L03.116 - CELLULITIS OF LEFT LOWER LIMB; L03.115 - CELLULITIS OF RIGHT LOWER LIMB SNOMED Code(s): 738241631 Plan: 1patient was in the hospital with increasing shortness of breath also with increasing bilateral lower extremity swelling superficial ulceration, patient did have evidence of erythema warm to touch elevated inflammatory markers and a left shift on WBC of concern for possible cellulitis likely from gram-positive skin xu. 2patient with multiple antibiotic allergies that would limit the number of antibiotics safe to use 3-patient slowly clinically improving as for his bilateral leg cellulitis is concerned, patient to continue with oral Keflex for another 5 days on discharge and close outpatient follow-up Time with Patient: Less than 30
[2023-01-11] MEDS: HYDROcodone/APAP 7.5-325MG 1 EACH TAB PO PRN ×2 (02:07→10:29)
[2023-01-11] MEDS: ACETAMINOPHEN TAB 325 MG TAB PO PRN ×2 (04:18→18:21)
[2023-01-11 06:09] LABS: Glucose,Whole Blood 99 mg/dL (70-110)
[2023-01-11] MEDS: metFORMIN 500 MG TAB PO SCH ×2 (06:38→17:09)
[2023-01-11] MEDS: IPRATROPIUM-ALBUTEROL 3 ML NEB INHALATION PRN ×4 (07:54→21:06)
[2023-01-11] MEDS: SYMBICORT 160-4.5 MCG INHALER INHALATION SCH ×2 (07:55→21:06)
[2023-01-11] MEDS: DAPAGLIFLOZIN PROPANEDIOL 10 MG TABLET PO SCH (08:08)
[2023-01-11] MEDS: CEPHALEXIN 500 MG CAP PO SCH ×3 (08:08→20:33)
[2023-01-11] MEDS: APIXABAN 5 MG TAB PO SCH ×2 (08:08→20:32)
[2023-01-11] MEDS: SPIRONOLACTONE 25 MG TAB PO SCH (08:09)
[2023-01-11] MEDS: SENNOSIDES 8.6 MG TAB PO SCH ×2 (08:09→20:33)
[2023-01-11] MEDS: NICOTINE 21MG/24HR PATCH TRANSDERM SCH (08:09)
[2023-01-11] MEDS: PREGABALIN 75 MG CAP PO SCH ×2 (08:09→20:33)
[2023-01-11] MEDS: DULoxetine HCL 30 MG CAPSULE.DR PO SCH (08:09)
[2023-01-11] MEDS: TAMSULOSIN 0.4 MG CAP.ER.24H PO SCH (08:09)
[2023-01-11] MEDS: FUROSEMIDE 40 MG TAB PO SCH (08:09)
[2023-01-11] MEDS: METOPROLOL TARTRATE 50 MG TAB PO SCH ×2 (08:09→20:33)
[2023-01-11] MEDS: ESCITALOPRAM 5 MG TAB PO SCH (08:09)
--- NOTE | 2023-01-11 10:46 | P.DS ---
Providers Date of admission: 12/31/22 13:40 Attending physician: Tigre Geiger MD Consults: 12/31/22 13:31 Consult Physician Routine Consulting Provider: Sajan Haile Consult Reason/Comments: b/l feet swelling Do you want consulting provider notified?: Yes 12/31/22 17:35 Consult Physician Urgent Consulting Provider: Paulo De Anda Consult Reason/Comments: lower extremity redness/swelling Do you want consulting provider notified?: Yes 01/03/23 03:31 Consult Physician Routine Consulting Provider: Calvin Martin Consult Reason/Comments: Increased shortness of breath Do you want consulting provider notified?: Yes Primary care physician: [facility] Course: Diagnoses Acute on chronic diastolic CHF Bilateral pitting leg edema, acute on chronic chronic atrial fibrillation on Eliquis and the rate is controlled Chronic hypoxic respiratory failure with related to her oxygen via nasal cannula Diabetes mellitus Hypertension Hyperlipidemia History of osteoarthritis History of GERD Diabetic neuropathy of feet and hands Chronic back pain Polyarthralgia History of falls History of anxiety and depression, not in activation Obese with BMI 38.5 Hospital course: This is a pleasant 71 years old male with multiple medical problems including COPD, diabetes mellitus, hypertension, hyperlipidemia, osteoarthritis, GERD, diabetic neuropathy, chronic back pain, joint disease and falls He was recently in the hospital for COPD exacerbation and bilateral lower extremity edema and chronic CHF Patient presents because of bilateral pitting leg edema swelling and redness and erythema slowly get worse. Patient has been evaluated by cardiology, infectious disease and pulmonary team. Patient was found to COPD exacerbation, CHF exacerbation and possible bilateral leg cellulitis Patient was treated with antibiotics and there, patient showed interval improvement in his leg swelling is significantly improved. Currently his Eliquis, Keflex 500 Mg As Well As Lasix. Patient Has Been Clinically Stable. He Denies Any Chest Pain or Dyspnea. No Change in Urine or Bowel Habits. No Fever Patient was cleared for discharge by all consultants Problems and management plan were discussed with the patient and he verbalized understanding and acceptance Patient was found stable and can be discharged to a fdc in guarded prognosis however he needs follow-up as an outpatient. Patient was instructed to follow up with PCP Dr. Jackson within one week and patient agrees Patient was instructed to follow up with Dr. Sanders in 1-2 weeks Patient was instructed to follow up with crab picker Dr. Haile 1 week Patient was instructed to follow up with vascular surgery and Dr. Lara in 1-2 weeks and he agrees Because of ongoing redness in his leg and chronic back pain recommended vascular surgery evaluation with Dr. Lara which can performed as an outpatient, patient informed and he agrees to admission and divided Also we recommend to taper off his Vida upon discharge. Patient claims that he has been getting Vida at home by his palliative care nurse. An APS was checked today last Vida prescribed for the system was on 01/2021. Patient pain is improving with improvement of his infection. Therefore I pupils provided for him upon discharge which can be stopped in 1-2 days per recommendation. Risks including but not limited to the risk of respiratory depression, and/or are explained for the patient in detail and he verbalized understanding Also we recommend to check his blood tests including CBC & BMP in 2-3 days Physical exam Gen: patient is a AAOx3, no distress CVS: S1-S2, RRR, no murmur Lungs: B/L CTA, no wheezing Abdomen: soft, no distention, no tenderness, positive bowel sounds -Extremity: no leg edema or induration. Bilateral leg erythema, significantly improved. Time spent more than 35 minutes Patient Condition at Discharge: Fair Plan - Discharge Summary Discharge Rx Participant: No New Discharge Prescriptions: New HYDROcodone/APAP 7.5-325MG [Vida 7.5-325] 1 each PO Q4H PRN #4 tab PRN Reason: Pain Acetaminophen [Tylenol] 325 mg PO Q6H 20 Days tab Dapagliflozin Propanediol [Farxiga] 10 mg PO DAILY tab Cephalexin [Keflex] 500 mg PO TID 10 Days #30 cap Furosemide [Lasix] 40 mg PO DAILY tab Sennosides [Senokot] 8.6 mg PO BID tab SILVER sulfADIAZINE CREAM [Silvadene Cream] 1 applic TOPICAL DAILY each Budesonide-Formot 160-4.5 Mcg [Symbicort 160-4.5 Mcg Inhaler] 2 puff INHALATION RT-BID each Continue Albuterol Nebulized [Ventolin Nebulized] 2.5 mg INHALATION RT-Q6H PRN PRN Reason: Shortness Of Breath Apixaban [Eliquis] 5 mg PO BID #60 tab Omeprazole 40 mg PO DAILY Escitalopram [Lexapro] 5 mg PO DAILY metFORMIN HCL [Glucophage] 500 mg PO BID tab Spironolactone [Aldactone] 25 mg PO DAILY #30 tab Fluticasone/Vilanterol [Breo Ellipta 100-25 Mcg Inhaler] 1 puff INHALATION RT-DAILY DULoxetine HCL [Cymbalta] 30 mg PO DAILY Umeclidinium Cullen [Incruse Ellipta] 1 puff INHALATION RT-DAILY HYDROcodone/APAP 7.5-325MG [Vida 7.5-325] 1 tab PO Q4H PRN #4 tab PRN Reason: Pain Ipratropium-Albuterol Nebulize [Duoneb 0.5 mg-3 mg/3 ml Soln] 3 ml INHALATION RT-Q6H PRN PRN Reason: Shortness Of Breath Or Wheezing Tamsulosin [Flomax] 0.4 mg PO DAILY Fluticasone Nasal Bentley [Flonase Nasal Bentley] 1 spray EA NOSTRIL Q12H PRN PRN Reason: nasal drainage Potassium Chloride [Klor-Con 10 ER] 10 meq PO DAILY Theophylline Anhydrous [Theophylline] 400 mg PO DAILY Albuterol Sulfate [Proair Hfa] 2 puff INHALATION RT-Q6H PRN PRN Reason: Shortness Of Breath Metoprolol Tartrate [Lopressor] 50 mg PO BID tab Nicotine 21Mg/24Hr Patch [Habitrol] 1 patch TRANSDERM DAILY #3 patch Melatonin 6 mg PO HS PRN 10 Days #20 tab PRN Reason: Insomnia Clopidogrel [Plavix] 75 mg PO DAILY Atorvastatin Calcium [Lipitor] 40 mg PO HS Pregabalin [Lyrica] 75 mg PO BID #6 cap Discontinued predniSONE 5 mg PO DAILY Furosemide [Lasix] 40 mg PO BID #60 tab amLODIPine [Norvasc] 10 mg PO DAILY Discharge Medication List Albuterol Nebulized [Ventolin Nebulized] 2.5 mg INHALATION RT-Q6H PRN 05/08/20 [History] Apixaban [Eliquis] 5 mg PO BID #60 tab 07/08/20 [Rx] Ipratropium-Albuterol Nebulize [Duoneb 0.5 mg-3 mg/3 ml Soln] 3 ml INHALATION RT-Q6H PRN 05/02/21 [History] Tamsulosin [Flomax] 0.4 mg PO DAILY 12/07/21 [History] Albuterol Sulfate [Proair Hfa] 2 puff INHALATION RT-Q6H PRN 02/18/22 [History] Fluticasone Nasal Bentley [Flonase Nasal Bent[place]] 1 spray EA NOSTRIL Q12H PRN 02/18/22 [History] Potassium Chloride [Klor-Con 10 ER] 10 meq PO DAILY 02/18/22 [History] Theophylline Anhydrous [Theophylline] 400 mg PO DAILY 02/18/22 [History] Escitalopram [Lexapro] 5 mg PO DAILY 08/29/22 [History] Omeprazole 40 mg PO DAILY 08/29/22 [History] Metoprolol Tartrate [Lopressor] 50 mg PO BID tab 09/07/22 [Rx] metFORMIN HCL [Glucophage] 500 mg PO BID tab 09/07/22 [Rx] Melatonin 6 mg PO HS PRN 10 Days #20 tab 11/29/22 [Rx] Nicotine 21Mg/24Hr Patch [Habitrol] 1 patch TRANSDERM DAILY #3 patch 11/29/22 [Rx] Spironolactone [Aldactone] 25 mg PO DAILY #30 tab 11/29/22 [Rx] Atorvastatin Calcium [Lipitor] 40 mg PO HS 12/31/22 [History] Clopidogrel [Plavix] 75 mg PO DAILY 12/31/22 [History] DULoxetine HCL [Cymbalta] 30 mg PO DAILY 12/31/22 [History] Fluticasone/Vilanterol [Breo Ellipta 100-25 Mcg Inhaler] 1 puff INHALATION RT- DAILY 12/31/22 [History] Umeclidinium Cullen [Incruse Ellipta] 1 puff INHALATION RT-DAILY 12/31/22 [History] Budesonide-Formot 160-4.5 Mcg [Symbicort 160-4.5 Mcg Inhaler] 2 puff INHALATION RT-BID each 01/05/23 [Rx] Cephalexin [Keflex] 500 mg PO TID 10 Days #30 cap 01/05/23 [Rx] Dapagliflozin Propanediol [Farxiga] 10 mg PO DAILY tab 01/05/23 [Rx] Furosemide [Lasix] 40 mg PO DAILY tab 01/05/23 [Rx] HYDROcodone/APAP 7.5-325MG [Vida 7.5-325] 1 each PO Q4H PRN #4 tab 01/05/23 [Rx] HYDROcodone/APAP 7.5-325MG [Vida 7.5-325] 1 tab PO Q4H PRN #4 tab 01/05/23 [Rx] Pregabalin [Lyrica] 75 mg PO BID #6 cap 01/05/23 [Rx] SILVER sulfADIAZINE CREAM [Silvadene Cream] 1 applic TOPICAL DAILY each 01/05/23 [Rx] Sennosides [Senokot] 8.6 mg PO BID tab 01/05/23 [Rx] Acetaminophen [Tylenol] 325 mg PO Q6H 20 Days tab 01/11/23 [Rx] Follow up Appointment(s)/Referral(s): Lucille Daniels MD [STAFF PHYSICIAN] - 1 Week Sajan Haile DPM [STAFF PHYSICIAN] - 1 Week Selena Lara DO [STAFF PHYSICIAN] - 2 Weeks (vascular surgeon) [facility], [NON-STAFF] - [facility] [NON-STAFF] - [facility], [NON-STAFF] - As Needed Elver Jackson MD [Primary Care Provider] - 1-2 days (Please call for appointment.) Patient Instructions/Handouts: Pulmonary Edema (DC), Cellulitis (GEN) Activity/Diet/Wound Care/Special Instructions: Patient is going to ECF Activity as tolerated Continue current medications as prescribed Continue antibiotics for 10 days limited to discontinue Continue to use Miguel wraps to lower his extremities and wound care and elevate while at rest Continue breathing treatments and supplement oxygen and follow-up pulmonary outpatient Patient needs podiatry outpatient in 1-2 weeks Discharge/Stand Alone Forms: Who Do I Call?, Community Resources, Personal Forging Operator Discharge Disposition: TRANSFER TO SNF/ECF
[2023-01-11 11:21] LABS: Glucose,Whole Blood 99 mg/dL (70-110)
[2023-01-11] MEDS: HYDROcodone/APAP 5-325MG 1 EACH TAB PO PRN (14:19)
--- NOTE | 2023-01-11 16:21 | P.PN ---
Subjective Progress Note Date: 01/11/23 Principal diagnosis: Bilateral lower extremity cellulitis Patient is a 72-year-old male with a past medical history significant for atrial fibrillation diabetes mellitus COPD hypertension hyperlipidemia and diabetic neuropathy patient did have a history of bilateral lower extremity venous stasis ulceration and cellulitis, patient presenting to the hospital for evaluation of increasing shortness of breath and bilateral extremity swelling, and concern for bilateral lower extremity cellulitis On today's evaluation that is 01/11/2023, the patient continues to be afebrile, the patient is breathing comfortably on 3L nasal cannula oxygen, the patient denies chest pain, the patient did have occasional dry cough, the patient still complaining of swelling to the leg and pain and is asking for more pain medication mention Tylenol is not helping Objective - Vital Signs Vital signs: Vital Signs Temp 97.3 F L 01/11/23 07:26 Pulse 82 01/11/23 11:45 Resp 18 01/11/23 07:26 BP 121/75 01/11/23 07:26 Pulse Ox 93 L 01/11/23 07:56 FiO2 Intake & Output 01/10/23 01/11/23 01/11/23 18:59 06:59 18:59 Intake Total 450 Output Total 300 1300 Balance -300 -850 Intake: Oral 450 Output: Urine 300 1300 Other: Voiding Method Urinal Urinal # Voids 1 # Bowel Movements 1 - Exam GENERAL DESCRIPTION: An elderly male up in the chair in no distress RESPIRATORY SYSTEM: Unlabored breathing , decreased breath sounds at bases HEART: S1 S2 regular rate and rhythm , ABDOMEN: Soft no tenderness EXTREMITIES: Bilateral lower extremity redness has improved still swollen - Labs CBC & Chem 7: 01/08/23 06:55 01/08/23 06:55 Labs: Abnormal Lab Results - Last 24 Hours (Table) 01/10/23 01/10/23 Range/Units 16:34 20:37 POC Glucose (mg/dL) 155 H 131 H (70-110) mg/dL Assessment and Plan (1) Bilateral lower leg cellulitis Current Visit: Yes Status: Acute Code(s): L03.116 - CELLULITIS OF LEFT LOWER LIMB; L03.115 - CELLULITIS OF RIGHT LOWER LIMB SNOMED Code(s): 540012845 Plan: 1patient was in the hospital with increasing shortness of breath also with increasing bilateral lower extremity swelling superficial ulceration, patient did have evidence of erythema warm to touch elevated inflammatory markers and a left shift on WBC of concern for possible cellulitis likely from gram-positive skin xu. 2patient with multiple antibiotic allergies that would limit the number of antibiotics safe to use 3-patient did have clinical improvement of bilateral leg cellulitis , patient is currently being treated with oral Keflex for another 4 days and close outpatient follow-up Time with Patient: Less than 30
[2023-01-11 16:46] LABS: Glucose,Whole Blood 181 mg/dL (70-110)
[2023-01-11] MEDS: ATORVASTATIN 40 MG TAB PO SCH (20:33)
[2023-01-11 21:02] LABS: Glucose,Whole Blood 103 mg/dL (70-110)
[2023-01-12] MEDS: HYDROcodone/APAP 5-325MG 1 EACH TAB PO PRN (05:18)
[2023-01-12 06:27] LABS: Glucose,Whole Blood 98 mg/dL (70-110)
[2023-01-12] MEDS: ACETAMINOPHEN TAB 325 MG TAB PO PRN (06:58)
[2023-01-12] MEDS: metFORMIN 500 MG TAB PO SCH ×2 (06:58→16:39)
[2023-01-12] MEDS: IPRATROPIUM-ALBUTEROL 3 ML NEB INHALATION PRN ×3 (08:16→21:57)
[2023-01-12] MEDS: SYMBICORT 160-4.5 MCG INHALER INHALATION SCH ×2 (08:16→21:58)
[2023-01-12] MEDS ORDERED: HYDROcodone/APAP 5-325MG 1 EACH TAB PO PRN (08:16)
[2023-01-12] MEDS ORDERED: HYDROcodone/APAP 7.5-325MG 1 EACH TAB PO PRN (08:33)
[2023-01-12] MEDS: METOPROLOL TARTRATE 50 MG TAB PO SCH ×2 (08:49→21:54)
[2023-01-12] MEDS: TAMSULOSIN 0.4 MG CAP.ER.24H PO SCH (08:49)
[2023-01-12] MEDS: SPIRONOLACTONE 25 MG TAB PO SCH (08:49)
[2023-01-12] MEDS: CEPHALEXIN 500 MG CAP PO SCH ×3 (08:50→21:54)
[2023-01-12] MEDS: NICOTINE 21MG/24HR PATCH TRANSDERM SCH (08:50)
[2023-01-12] MEDS: PREGABALIN 75 MG CAP PO SCH ×2 (08:50→21:54)
[2023-01-12] MEDS: FUROSEMIDE 40 MG TAB PO SCH (08:50)
[2023-01-12] MEDS: APIXABAN 5 MG TAB PO SCH ×2 (08:50→21:54)
[2023-01-12] MEDS: SENNOSIDES 8.6 MG TAB PO SCH ×2 (08:50→21:54)
[2023-01-12] MEDS: DULoxetine HCL 30 MG CAPSULE.DR PO SCH (08:51)
[2023-01-12] MEDS: ESCITALOPRAM 5 MG TAB PO SCH (08:51)
[2023-01-12] MEDS: DAPAGLIFLOZIN PROPANEDIOL 10 MG TABLET PO SCH (08:51)
[2023-01-12 11:29] LABS: Glucose,Whole Blood 105 mg/dL (70-110)
--- NOTE | 2023-01-12 14:06 | P.PN ---
Subjective This is a pleasant 71 years old male with multiple medical problems including COPD, diabetes mellitus, hypertension, hyperlipidemia, osteoarthritis, GERD, diabetic neuropathy, chronic back pain, joint disease and falls He was recently in the hospital for COPD exacerbation and bilateral lower extremity edema and chronic CHF Patient presents because of bilateral patellar leg edema swelling and redness and erythema slowly get worse. He denies dyspnea. No chest pain. No change in urine or bowel habits Denies smoking alcohol or illicit drugs He is on 3 L oxygen at home. He is also on a prednisone 5 mg daily placed by his PCP Dr. Alfredo Vitals are stable Labs showing mild anemia with hemoglobin 10.8, rest of CBC, BMP and liver enzymes are unremarkable. Troponin is negative. Chest x-ray: Findings are consistent with mild pulmonary congestion EKG showing atrial fibrillation with controlled rate at [address]-T changes and QTC 422. 01/01/2023 Patient with bilateral leg swelling and redness but likely secondary to medicat ion effect as well as mild diastolic CHF. I don't think the patient has actual infection or cellulitis. Patient has good urine output on 80 mg by mouth every 8 hours. This was transcribed goes by bow maker production Also patient placed on cefazolin by ID team Continue to discontinue Norvasc and prednisone. 01/02/2023 Patient has no new complaint His leg swelling is improving slowly and gradually, both legs are wrapped with Miguel bandage today He remains on IV Lasix 80 mg 3 times a day and cefazolin DC Norvasc and prednisone Is also on the farxiga 01/08/2023 Patient bilateral leg swelling is significantly improved. The suspicion of sigmoid this is low however he kept on Keflex Patient was cleared for discharge by cardiology and pulmonary team as well as infectious disease team He supposed to go to subacute rehab pending placement. Patient will need peer to peer evaluation prior to transfer to rehab for insurance authorization Patient is medically stable for discharge pending placement Patient today is comfortable with no new complaints. Patient eats well, no constipation urine is fine. Patient informed the need to follow-up with vascular surgery Dr. Lara in 1-2 weeks after discharge for lower extremity evaluation and he agrees. Contact information provided for 01/09/2023 Patient lying in bed comfortable going of the bed of the thyroid gland complaining of from chronic leg pain for many months Limits swelling significantly improved. No chest pain or dyspnea. He is on 3 L oxygen at home, we will lower his for a permanent down to 3 days to monitor Patient is a letter with a recommendation for follow-up as an outpatient and he is agreeable to it. Patient is medically stable for discharge pending placement ( will require peer to peer review on tuesday) 01/12/2023 pt is doing well overall ,no new complaint MAPS was checked today and he was on norco 7.5 mg q4hr, he said the norco 5 q8r does not help him so he agrees to increase the dose to qhr risk of 20 coagulation narcotics including but not limited to respiratory depression and are explained for him and he verbalized understanding and acceptance, he agrees to lower the dose to 7.5 mg every 8 hours but he says the 5 mg of [place] is not helping him. Patient with stable pending prior authorization for placement as well as custodial to accept him Objective - Vital Signs Vital signs: Vital Signs Temp 98.3 F 01/12/23 07:52 Pulse 99 01/12/23 08:30 Resp 18 01/12/23 08:30 BP 123/73 01/12/23 07:52 Pulse Ox 93 L 01/12/23 08:32 FiO2 Intake & Output 01/11/23 01/12/23 01/12/23 18:59 06:59 18:59 Intake Total 236 Output Total 1000 Balance -1000 236 Intake: Oral 236 Output: Urine 1000 Other: Voiding Method Urinal Urinal # Voids 1 # Bowel Movements 1 - Exam GENERAL: The patient is alert and oriented x3, not in any acute distress. Well developed, well nourished. HEENT: Pupils are round and equally reacting to light. EOMI. No scleral icterus. No conjunctival pallor. Normocephalic, atraumatic. No pharyngeal erythema. No thyromegaly. CARDIOVASCULAR: S1 and S2 present. No murmurs, rubs, or gallops. PULMONARY: Chest is clear to auscultation, no wheezing or crackles. ABDOMEN: Soft, nontender, nondistended, normoactive bowel sounds. No palpable organomegaly. MUSCULOSKELETAL: No joint swelling or deformity. -EXTREMITIES: No cyanosis, clubbing, bilateral pitting leg edema has significantly resolved NEUROLOGICAL: Gross neurological examination did not reveal any focal deficits. SKIN: No rashes. no petechiae. - Labs CBC & Chem 7: 01/08/23 06:55 01/08/23 06:55 Labs: Abnormal Lab Results - Last 24 Hours (Table) 01/11/23 Range/Units 16:40 POC Glucose (mg/dL) 181 H (70-110) mg/dL Assessment and Plan Assessment: Acute on chronic diastolic CHF Bilateral pitting leg edema, acute on chronic chronic atrial fibrillation on Eliquis and the rate is controlled Chronic hypoxic respiratory failure with related to her oxygen via nasal cannula Diabetes mellitus Hypertension Hyperlipidemia History of osteoarthritis History of GERD Diabetic neuropathy of feet and hands Chronic back pain Polyarthralgia History of falls History of anxiety and depression, not in activation Obese with BMI 38.5 Plan: Dear by dense Currently On liquids and Keflex as well as oral Lasix needs peer to peer evaluation on tuesday for insurance authorization Instructed to follow up for vascular surgery Dr. Lara as an outpatient, nonurgent better. Patient currently asymptomatic Labs and medication were reviewed.. Continue same treatment. Continue with symptomatic treatment. Resume home medication. Monitor labs and vitals. DVT and GI prophylaxis. Further recommendations as per clinical course of the patient DVT prophylaxis: Eliquis GI Prophylaxis: Pepcid PT/Osubacute rehab pending placedPrognosis is guarded
[2023-01-12 16:18] LABS: Glucose,Whole Blood 124 mg/dL (70-110)
[2023-01-12 21:14] LABS: Glucose,Whole Blood 103 mg/dL (70-110)
[2023-01-12] MEDS: ATORVASTATIN 40 MG TAB PO SCH (21:54)
[2023-01-12] MEDS: HYDROcodone/APAP 7.5-325MG 1 EACH TAB PO PRN (21:58)
[2023-01-13] MEDS: HYDROcodone/APAP 7.5-325MG 1 EACH TAB PO PRN ×4 (03:40→23:51)
[2023-01-13 06:46] LABS: Glucose,Whole Blood 100 mg/dL (70-110)
[2023-01-13] MEDS: SYMBICORT 160-4.5 MCG INHALER INHALATION SCH ×2 (08:58→21:27)
[2023-01-13] MEDS: IPRATROPIUM-ALBUTEROL 3 ML NEB INHALATION PRN ×3 (08:58→21:27)
[2023-01-13] MEDS: SPIRONOLACTONE 25 MG TAB PO SCH (09:40)
[2023-01-13] MEDS: SENNOSIDES 8.6 MG TAB PO SCH ×2 (09:40→20:19)
[2023-01-13] MEDS: FUROSEMIDE 40 MG TAB PO SCH (09:40)
[2023-01-13] MEDS: METOPROLOL TARTRATE 50 MG TAB PO SCH ×2 (09:40→22:16)
[2023-01-13] MEDS: metFORMIN 500 MG TAB PO SCH ×2 (09:40→17:52)
[2023-01-13] MEDS: DAPAGLIFLOZIN PROPANEDIOL 10 MG TABLET PO SCH (09:40)
[2023-01-13] MEDS: TAMSULOSIN 0.4 MG CAP.ER.24H PO SCH (09:40)
[2023-01-13] MEDS: APIXABAN 5 MG TAB PO SCH ×2 (09:40→20:19)
[2023-01-13] MEDS: PREGABALIN 75 MG CAP PO SCH ×2 (09:40→20:19)
[2023-01-13] MEDS: ESCITALOPRAM 5 MG TAB PO SCH (09:40)
[2023-01-13] MEDS: CEPHALEXIN 500 MG CAP PO SCH (09:40)
[2023-01-13] MEDS: DULoxetine HCL 30 MG CAPSULE.DR PO SCH (09:40)
[2023-01-13] MEDS: NICOTINE 21MG/24HR PATCH TRANSDERM SCH (09:40)
--- NOTE | 2023-01-13 09:50 | P.PN ---
Subjective This is a pleasant 71 years old male with multiple medical problems including COPD, diabetes mellitus, hypertension, hyperlipidemia, osteoarthritis, GERD, diabetic neuropathy, chronic back pain, joint disease and falls He was recently in the hospital for COPD exacerbation and bilateral lower extremity edema and chronic CHF Patient presents because of bilateral patellar leg edema swelling and redness and erythema slowly get worse. He denies dyspnea. No chest pain. No change in urine or bowel habits Denies smoking alcohol or illicit drugs He is on 3 L oxygen at home. He is also on a prednisone 5 mg daily placed by his PCP Dr. Alfredo Vitals are stable Labs showing mild anemia with hemoglobin 10.8, rest of CBC, BMP and liver enzymes are unremarkable. Troponin is negative. Chest x-ray: Findings are consistent with mild pulmonary congestion EKG showing atrial fibrillation with controlled rate at [address]-T changes and QTC 422. 01/01/2023 Patient with bilateral leg swelling and redness but likely secondary to medicat ion effect as well as mild diastolic CHF. I don't think the patient has actual infection or cellulitis. Patient has good urine output on 80 mg by mouth every 8 hours. This was transcribed goes by cocoa bean roaster Also patient placed on cefazolin by ID team Continue to discontinue Norvasc and prednisone. 01/02/2023 Patient has no new complaint His leg swelling is improving slowly and gradually, both legs are wrapped with Miguel bandage today He remains on IV Lasix 80 mg 3 times a day and cefazolin DC Norvasc and prednisone Is also on the farxiga 01/08/2023 Patient bilateral leg swelling is significantly improved. The suspicion of sigmoid this is low however he kept on Keflex Patient was cleared for discharge by cardiology and pulmonary team as well as infectious disease team He supposed to go to subacute rehab pending placement. Patient will need peer to peer evaluation prior to transfer to rehab for insurance authorization Patient is medically stable for discharge pending placement Patient today is comfortable with no new complaints. Patient eats well, no constipation urine is fine. Patient informed the need to follow-up with vascular surgery Dr. Lara in 1-2 weeks after discharge for lower extremity evaluation and he agrees. Contact information provided for 01/09/2023 Patient lying in bed comfortable going of the bed of the thyroid gland complaining of from chronic leg pain for many months Limits swelling significantly improved. No chest pain or dyspnea. He is on 3 L oxygen at home, we will lower his for a permanent down to 3 days to monitor Patient is a letter with a recommendation for follow-up as an outpatient and he is agreeable to it. Patient is medically stable for discharge pending placement ( will require peer to peer review on tuesday) 01/12/2023 pt is doing well overall ,no new complaint MAPS was checked today and he was on norco 7.5 mg q4hr, he said the norco 5 q8r does not help him so he agrees to increase the dose to qhr risk of 20 coagulation narcotics including but not limited to respiratory depression and are explained for him and he verbalized understanding and acceptance, he agrees to lower the dose to 7.5 mg every 8 hours but he says the 5 mg of [place] is not helping him. Patient with stable pending prior authorization for placement as well as [facility] to accept him 01/13/2023 Patient clinically doing well, he is clinically stable. Patient is at baseline. He denies any new complaints for me. No dyspnea. His vitals are stable This complaining from chronic leg pain. MAPS was checked yesterday and his on [place] 7.5 around every 4 hours. I discussed with him. His medication including risk of respiratory depression and he verbalized understanding however he is adamant to keep it didn't [place] 7.5. We tried [place] 5 every 8 hours and did not controlled his pain then increase it to [place] 7.5 mg every 8 hours however he called later on wanted to be increased, which we did and now he is currently on [place] 7.5 mg every 6 hours. We will keep close monitoring for him. We recommend outpatient follow-up with pain medicine. I discussed with him the recommendation for outpatient follow-up including PCP, vascular surgery, cardiology services and others and he verbalized understanding and acceptance Patient is medically stable for discharge pending authorization and placement Objective - Vital Signs Vital signs: Vital Signs Temp 98.4 F 01/13/23 07:13 Pulse 88 01/13/23 09:13 Resp 18 01/13/23 09:13 BP 113/67 01/13/23 07:13 Pulse Ox 98 01/13/23 08:59 FiO2 Intake & Output 01/12/23 01/13/23 01/13/23 18:59 06:59 18:59 Intake Total 236 480 Output Total 1000 500 Balance -764 -20 Intake: Oral 236 480 Output: Urine 1000 500 Other: Voiding Method Urinal Urinal # Voids 3 - Exam GENERAL: The patient is alert and oriented x3, not in any acute distress. Well developed, well nourished. HEENT: Pupils are round and equally reacting to light. EOMI. No scleral icterus. No conjunctival pallor. Normocephalic, atraumatic. No pharyngeal erythema. No thyromegaly. CARDIOVASCULAR: S1 and S2 present. No murmurs, rubs, or gallops. PULMONARY: Chest is clear to auscultation, no wheezing or crackles. ABDOMEN: Soft, nontender, nondistended, normoactive bowel sounds. No palpable organomegaly. MUSCULOSKELETAL: No joint swelling or deformity. -EXTREMITIES: No cyanosis, clubbing, bilateral pitting leg edema has significantly resolved NEUROLOGICAL: Gross neurological examination did not reveal any focal deficits. SKIN: No rashes. no petechiae. - Labs CBC & Chem 7: 01/08/23 06:55 01/08/23 06:55 Labs: Abnormal Lab Results - Last 24 Hours (Table) 01/12/23 Range/Units 16:17 POC Glucose (mg/dL) 124 H (70-110) mg/dL Assessment and Plan Assessment: Acute on chronic diastolic CHF Bilateral pitting leg edema, acute on chronic chronic atrial fibrillation on Eliquis and the rate is controlled Chronic hypoxic respiratory failure with related to her oxygen via nasal cannula Diabetes mellitus Hypertension Hyperlipidemia History of osteoarthritis History of GERD Diabetic neuropathy of feet and hands Chronic back pain Polyarthralgia History of falls History of anxiety and depression, not in activation Obese with BMI 38.5 Plan: Dear by martinez Currently On eliquis and Keflex as well as oral Lasix needs peer to peer evaluation on tuesday for insurance authorization Instructed to follow up for vascular surgery Dr. Lara as an outpatient, nonurgent better. Patient currently asymptomatic Labs and medication were reviewed.. Continue same treatment. Continue with symptomatic treatment. Resume home medication. Monitor labs and vitals. DVT and GI prophylaxis. Further recommendations as per clinical course of the patient DVT prophylaxis: Eliquis GI Prophylaxis: Pepcid PT/OT followed subacute rehab pending authorization Prognosis is guarded
[2023-01-13 11:34] LABS: Glucose,Whole Blood 101 mg/dL (70-110)
[2023-01-13] MEDS: ACETAMINOPHEN TAB 325 MG TAB PO PRN ×2 (13:45→20:27)
[2023-01-13 16:42] LABS: Glucose,Whole Blood 101 mg/dL (70-110)
[2023-01-13 20:18] LABS: Glucose,Whole Blood 120 mg/dL (70-110)
[2023-01-13] MEDS: ATORVASTATIN 40 MG TAB PO SCH (20:19)
[2023-01-13] MEDS: PANTOPRAZOLE 40 MG TABLET PO SCH (23:01)
[2023-01-14] MEDS: HYDROcodone/APAP 7.5-325MG 1 EACH TAB PO PRN ×3 (05:13→18:12)
[2023-01-14 06:26] LABS: Glucose,Whole Blood 105 mg/dL (70-110)
[2023-01-14] MEDS: metFORMIN 500 MG TAB PO SCH ×2 (07:29→17:22)
[2023-01-14] MEDS: SYMBICORT 160-4.5 MCG INHALER INHALATION SCH ×2 (07:48→19:16)
[2023-01-14] MEDS: TAMSULOSIN 0.4 MG CAP.ER.24H PO SCH (08:53)
[2023-01-14] MEDS: SENNOSIDES 8.6 MG TAB PO SCH ×2 (08:53→22:00)
[2023-01-14] MEDS: METOPROLOL TARTRATE 50 MG TAB PO SCH ×2 (08:53→22:00)
[2023-01-14] MEDS: FUROSEMIDE 40 MG TAB PO SCH (08:53)
[2023-01-14] MEDS: ESCITALOPRAM 5 MG TAB PO SCH (08:53)
[2023-01-14] MEDS: PREGABALIN 75 MG CAP PO SCH ×2 (08:53→22:00)
[2023-01-14] MEDS: DULoxetine HCL 30 MG CAPSULE.DR PO SCH (08:53)
[2023-01-14] MEDS: DAPAGLIFLOZIN PROPANEDIOL 10 MG TABLET PO SCH (08:54)
[2023-01-14] MEDS: NICOTINE 21MG/24HR PATCH TRANSDERM SCH (08:54)
[2023-01-14] MEDS: SPIRONOLACTONE 25 MG TAB PO SCH (08:54)
[2023-01-14] MEDS: PANTOPRAZOLE 40 MG TABLET PO SCH (08:54)
[2023-01-14] MEDS: APIXABAN 5 MG TAB PO SCH ×2 (08:54→22:00)
[2023-01-14 11:53] LABS: Glucose,Whole Blood 94 mg/dL (70-110)
--- NOTE | 2023-01-14 15:36 | P.PN ---
Subjective Progress Note Date: 01/12/23 Principal diagnosis: Bilateral lower extremity cellulitis Patient is a 72-year-old male with a past medical history significant for atrial fibrillation diabetes mellitus COPD hypertension hyperlipidemia and diabetic neuropathy patient did have a history of bilateral lower extremity venous stasis ulceration and cellulitis, patient presenting to the hospital for evaluation of increasing shortness of breath and bilateral extremity swelling, and concern for bilateral lower extremity cellulitis On today's evaluation that is 01/12/2023, the patient remains to be afebrile, the patient is breathing comfortably on 3L nasal cannula oxygen, the patient denies chest pain, the patient did have occasional cough but not bringing up any sputum, the patient still complaining of swelling and the redness has improved Objective - Vital Signs Vital signs: Vital Signs Temp 98.3 F 01/12/23 07:52 Pulse 99 01/12/23 08:30 Resp 18 01/12/23 08:30 BP 123/73 01/12/23 07:52 Pulse Ox 93 L 01/12/23 08:32 FiO2 Intake & Output 01/11/23 01/12/23 01/12/23 18:59 06:59 18:59 Intake Total 236 Output Total 1000 Balance -1000 236 Intake: Oral 236 Output: Urine 1000 Other: Voiding Method Urinal Urinal # Voids 1 # Bowel Movements 1 - Exam GENERAL DESCRIPTION: An elderly male up in the chair in no distress RESPIRATORY SYSTEM: Unlabored breathing , decreased breath sounds at bases HEART: S1 S2 regular rate and rhythm , ABDOMEN: Soft no tenderness EXTREMITIES: Bilateral lower extremity redness has improved still swollen - Labs CBC & Chem 7: 01/08/23 06:55 01/08/23 06:55 Labs: Abnormal Lab Results - Last 24 Hours (Table) 01/11/23 Range/Units 16:40 POC Glucose (mg/dL) 181 H (70-110) mg/dL Assessment and Plan (1) Bilateral lower leg cellulitis Current Visit: Yes Status: Acute Code(s): L03.116 - CELLULITIS OF LEFT LOWER LIMB; L03.115 - CELLULITIS OF RIGHT LOWER LIMB SNOMED Code(s): 282050297 Plan: 1patient was in the hospital with increasing shortness of breath also with increasing bilateral lower extremity swelling superficial ulceration, patient did have evidence of erythema warm to touch elevated inflammatory markers and a left shift on WBC of concern for possible cellulitis likely from gram-positive skin xu. 2patient with multiple antibiotic allergies that would limit the number of antibiotics safe to use 3-patient did have clinical improvement as for as bilateral leg cellulitis is concerned , patient to continue with oral Keflex and monitor clinical course closely Time with Patient: Less than 30
--- NOTE | 2023-01-14 15:37 | P.PN ---
Subjective Progress Note Date: 01/13/23 Principal diagnosis: Bilateral lower extremity cellulitis Patient is a 72-year-old male with a past medical history significant for atrial fibrillation diabetes mellitus COPD hypertension hyperlipidemia and diabetic neuropathy patient did have a history of bilateral lower extremity venous stasis ulceration and cellulitis, patient presenting to the hospital for evaluation of increasing shortness of breath and bilateral extremity swelling, and concern for bilateral lower extremity cellulitis On today's evaluation that is 01/13/2023, the patient continues to be afebrile, the patient is breathing comfortably on 3L nasal cannula oxygen, the patient denies chest pain, the patient denies any worsening cough or sputum production, the patient still complaining of pain to the leg however the redness has improved Objective - Vital Signs Vital signs: Vital Signs Temp 98.4 F 01/13/23 07:13 Pulse 88 01/13/23 09:13 Resp 18 01/13/23 09:13 BP 113/67 01/13/23 07:13 Pulse Ox 98 01/13/23 08:59 FiO2 Intake & Output 01/12/23 01/13/23 01/13/23 18:59 06:59 18:59 Intake Total 236 480 Output Total 1000 500 Balance -764 -20 Intake: Oral 236 480 Output: Urine 1000 500 Other: Voiding Method Urinal Urinal # Voids 3 - Exam GENERAL DESCRIPTION: An elderly male up in the chair in no distress RESPIRATORY SYSTEM: Unlabored breathing , decreased breath sounds at bases HEART: S1 S2 regular rate and rhythm , ABDOMEN: Soft no tenderness EXTREMITIES: Bilateral lower extremity redness has improved still swollen - Labs CBC & Chem 7: 01/08/23 06:55 01/08/23 06:55 Labs: Abnormal Lab Results - Last 24 Hours (Table) 01/12/23 Range/Units 16:17 POC Glucose (mg/dL) 124 H (70-110) mg/dL Assessment and Plan (1) Bilateral lower leg cellulitis Current Visit: Yes Status: Acute Code(s): L03.116 - CELLULITIS OF LEFT LOWER LIMB; L03.115 - CELLULITIS OF RIGHT LOWER LIMB SNOMED Code(s): 434306704 Plan: 1patient was in the hospital with increasing shortness of breath also with increasing bilateral lower extremity swelling superficial ulceration, patient did have evidence of erythema warm to touch elevated inflammatory markers and a left shift on WBC of concern for possible cellulitis likely from gram-positive skin xu. 2patient with multiple antibiotic allergies that would limit the number of antibiotics safe to use 3-patient did have clinical improvement as for as bilateral leg cellulitis is concerned , patient has received adequate antibiotic therapy, we will discontinue Keflex and monitor the patient closely off antibiotic therapy Time with Patient: Less than 30
[2023-01-14] MEDS: IPRATROPIUM-ALBUTEROL 3 ML NEB INHALATION PRN ×2 (15:43→19:18)
[2023-01-14 17:13] LABS: Glucose,Whole Blood 139 mg/dL (70-110)
[2023-01-14 20:48] LABS: Glucose,Whole Blood 165 mg/dL (70-110)
--- NOTE | 2023-01-14 21:45 | P.PN ---
Subjective This is a pleasant 71 years old male with multiple medical problems including COPD, diabetes mellitus, hypertension, hyperlipidemia, osteoarthritis, GERD, diabetic neuropathy, chronic back pain, joint disease and falls He was recently in the hospital for COPD exacerbation and bilateral lower extremity edema and chronic CHF Patient presents because of bilateral patellar leg edema swelling and redness and erythema slowly get worse. He denies dyspnea. No chest pain. No change in urine or bowel habits Denies smoking alcohol or illicit drugs He is on 3 L oxygen at home. He is also on a prednisone 5 mg daily placed by his PCP Dr. Alfredo Vitals are stable Labs showing mild anemia with hemoglobin 10.8, rest of CBC, BMP and liver enzymes are unremarkable. Troponin is negative. Chest x-ray: Findings are consistent with mild pulmonary congestion EKG showing atrial fibrillation with controlled rate at [address]-T changes and QTC 422. 01/01/2023 Patient with bilateral leg swelling and redness but likely secondary to medicat ion effect as well as mild diastolic CHF. I don't think the patient has actual infection or cellulitis. Patient has good urine output on 80 mg by mouth every 8 hours. This was transcribed goes by cut order hand Also patient placed on cefazolin by ID team Continue to discontinue Norvasc and prednisone. 01/02/2023 Patient has no new complaint His leg swelling is improving slowly and gradually, both legs are wrapped with Miguel bandage today He remains on IV Lasix 80 mg 3 times a day and cefazolin DC Norvasc and prednisone Is also on the farxiga 01/08/2023 Patient bilateral leg swelling is significantly improved. The suspicion of sigmoid this is low however he kept on Keflex Patient was cleared for discharge by cardiology and pulmonary team as well as infectious disease team He supposed to go to subacute rehab pending placement. Patient will need peer to peer evaluation prior to transfer to rehab for insurance authorization Patient is medically stable for discharge pending placement Patient today is comfortable with no new complaints. Patient eats well, no constipation urine is fine. Patient informed the need to follow-up with vascular surgery Dr. Lara in 1-2 weeks after discharge for lower extremity evaluation and he agrees. Contact information provided for 01/09/2023 Patient lying in bed comfortable going of the bed of the thyroid gland complaining of from chronic leg pain for many months Limits swelling significantly improved. No chest pain or dyspnea. He is on 3 L oxygen at home, we will lower his for a permanent down to 3 days to monitor Patient is a letter with a recommendation for follow-up as an outpatient and he is agreeable to it. Patient is medically stable for discharge pending placement ( will require peer to peer review on tuesday) 01/12/2023 pt is doing well overall ,no new complaint MAPS was checked today and he was on norco 7.5 mg q4hr, he said the norco 5 q8r does not help him so he agrees to increase the dose to qhr risk of 20 coagulation narcotics including but not limited to respiratory depression and are explained for him and he verbalized understanding and acceptance, he agrees to lower the dose to 7.5 mg every 8 hours but he says the 5 mg of [place] is not helping him. Patient with stable pending prior authorization for placement as well as [facility] to accept him 01/13/2023 Patient clinically doing well, he is clinically stable. Patient is at baseline. He denies any new complaints for me. No dyspnea. His vitals are stable This complaining from chronic leg pain. MAPS was checked yesterday and his on [place] 7.5 around every 4 hours. I discussed with him. His medication including risk of respiratory depression and he verbalized understanding however he is adamant to keep it didn't [place] 7.5. We tried [place] 5 every 8 hours and did not controlled his pain then increase it to [place] 7.5 mg every 8 hours however he called later on wanted to be increased, which we did and now he is currently on [place] 7.5 mg every 6 hours. We will keep close monitoring for him. We recommend outpatient follow-up with pain medicine. I discussed with him the recommendation for outpatient follow-up including PCP, vascular surgery, cardiology services and others and he verbalized understanding and acceptance Patient is medically stable for discharge pending authorization and placement 01/14/2023 Patient was undergoing bilateral leg pain which looks controlled, this ongoing since admission and is chronic and patient is an [place] 7.5 mg. Pain controlled. Once all the patient today he did not ask for more pain medication. No other new complaints. Labs vitals and imaging reviewed. I discussed the case with social media community manager, still pending prior authorization If no authorization obtained today revealed to check labs tonight. Objective - Vital Signs Vital signs: Vital Signs Temp 97.2 F L 01/14/23 07:20 Pulse 78 01/14/23 07:20 Resp 17 01/14/23 07:20 BP 118/66 01/14/23 07:20 Pulse Ox 98 01/14/23 07:49 FiO2 Intake & Output 01/13/23 01/14/23 01/14/23 18:59 06:59 18:59 Output Total 230 Balance -230 Output: Urine 230 Other: Voiding Method Urinal # Voids 3 - Exam GENERAL: The patient is alert and oriented x3, not in any acute distress. Well developed, well nourished. HEENT: Pupils are round and equally reacting to light. EOMI. No scleral icterus. No conjunctival pallor. Normocephalic, atraumatic. No pharyngeal erythema. No thyromegaly. CARDIOVASCULAR: S1 and S2 present. No murmurs, rubs, or gallops. PULMONARY: Chest is clear to auscultation, no wheezing or crackles. ABDOMEN: Soft, nontender, nondistended, normoactive bowel sounds. No palpable organomegaly. MUSCULOSKELETAL: No joint swelling or deformity. -EXTREMITIES: No cyanosis, clubbing, bilateral pitting leg edema has significantly resolved NEUROLOGICAL: Gross neurological examination did not reveal any focal deficits. SKIN: No rashes. no petechiae. - Labs CBC & Chem 7: 01/08/23 06:55 01/08/23 06:55 Labs: Abnormal Lab Results - Last 24 Hours (Table) 01/13/23 Range/Units 20:17 POC Glucose (mg/dL) 120 H (70-110) mg/dL Assessment and Plan Assessment: Acute on chronic diastolic CHF Bilateral pitting leg edema, acute on chronic chronic atrial fibrillation on Eliquis and the rate is controlled Chronic hypoxic respiratory failure with related to her oxygen via nasal cannula Diabetes mellitus Hypertension Hyperlipidemia History of osteoarthritis History of GERD Diabetic neuropathy of feet and hands Chronic back pain Polyarthralgia History of falls History of anxiety and depression, not in activation Obese with BMI 38.5 Plan: Dear by dense Currently On eliquis and Keflex as well as oral Lasix needs peer to peer evaluation on tuesday for insurance authorization Instructed to follow up for vascular surgery Dr. Lara as an outpatient, nonurgent better. Patient currently asymptomatic Labs and medication were reviewed.. Continue same treatment. Continue with symptomatic treatment. Resume home medication. Monitor labs and vitals. DVT and GI prophylaxis. Further recommendations as per clinical course of the patient DVT prophylaxis: Eliquis GI Prophylaxis: Pepcid PT/OT followed subacute rehab pending authorization Prognosis is guarded
[2023-01-14] MEDS: ATORVASTATIN 40 MG TAB PO SCH (22:00)
[2023-01-14 22:52] LABS: African American GFR (CKD) >90 (>60 ml/min/1.73 sqM); Anion Gap 8 mmol/L; Blood Urea Nitrogen 14 mg/dL (9-20); Calcium 8.3 mg/dL (8.4-10.2); Carbon Dioxide 30 mmol/L (22-30); Chloride 96 mmol/L (98-107); Glucose 125 mg/dL (74-99); Non-African American GFR(CKD) 88 (>60 ml/min/1.73 sqM); Potassium 4.3 mmol/L (3.5-5.1); Sodium 134 mmol/L (137-145)
[2023-01-14 23:04] LABS: Anisocytosis Slight; Basophils # (A) 0.1 k/uL (0-0.2); Basophils % (A) 1 %; Eosinophils # (A) 0.2 k/uL (0-0.7); Eosinophils % (A) 3 %; HCT 35.8 % (39.0-53.0); HGB 11.3 gm/dL (13.0-17.5); Lymphocytes # (A) 2.1 k/uL (1.0-4.8); Lymphocytes % (A) 26 %; MCH 28.1 pg (25.0-35.0); MCHC 31.6 g/dL (31.0-37.0); Mean Platelet Volume 7.7; Monocytes # (A) 0.6 k/uL (0-1.0); Monocytes % (A) 7 %; Neutrophils # (A) 4.8 k/uL (1.3-7.7); Neutrophils % (A) 60 %; Platelet Count 296 k/uL (150-450); RBC 4.02 m/uL (4.30-5.90); RDW 18.3 % (11.5-15.5)
[2023-01-15] MEDS: HYDROcodone/APAP 7.5-325MG 1 EACH TAB PO PRN ×4 (00:26→21:52)
[2023-01-15 06:24] LABS: Glucose,Whole Blood 109 mg/dL (70-110)
[2023-01-15] MEDS: PANTOPRAZOLE 40 MG TABLET PO SCH (06:24)
[2023-01-15] MEDS: metFORMIN 500 MG TAB PO SCH ×2 (06:24→17:01)
[2023-01-15] MEDS: IPRATROPIUM-ALBUTEROL 3 ML NEB INHALATION PRN ×2 (08:50→21:36)
[2023-01-15] MEDS: SYMBICORT 160-4.5 MCG INHALER INHALATION SCH ×2 (08:50→21:36)
[2023-01-15] MEDS: DULoxetine HCL 30 MG CAPSULE.DR PO SCH (09:06)
[2023-01-15] MEDS: ESCITALOPRAM 5 MG TAB PO SCH (09:06)
[2023-01-15] MEDS: DAPAGLIFLOZIN PROPANEDIOL 10 MG TABLET PO SCH (09:06)
[2023-01-15] MEDS: TAMSULOSIN 0.4 MG CAP.ER.24H PO SCH (09:06)
[2023-01-15] MEDS: SPIRONOLACTONE 25 MG TAB PO SCH (09:07)
[2023-01-15] MEDS: PREGABALIN 75 MG CAP PO SCH ×2 (09:07→21:05)
[2023-01-15] MEDS: SENNOSIDES 8.6 MG TAB PO SCH ×2 (09:07→21:05)
[2023-01-15] MEDS: METOPROLOL TARTRATE 50 MG TAB PO SCH ×2 (09:07→21:05)
[2023-01-15] MEDS: FUROSEMIDE 40 MG TAB PO SCH (09:07)
[2023-01-15] MEDS: NICOTINE 21MG/24HR PATCH TRANSDERM SCH (09:07)
[2023-01-15] MEDS: APIXABAN 5 MG TAB PO SCH ×2 (09:07→21:05)
--- NOTE | 2023-01-15 11:00 | P.PN ---
Subjective Progress Note Date: 01/15/23 Principal diagnosis: Bilateral lower extremity cellulitis Patient is a 72-year-old male with a past medical history significant for atrial fibrillation diabetes mellitus COPD hypertension hyperlipidemia and diabetic neuropathy patient did have a history of bilateral lower extremity venous stasis ulceration and cellulitis, patient presenting to the hospital for evaluation of increasing shortness of breath and bilateral extremity swelling, and concern for bilateral lower extremity cellulitis On today's evaluation that is 01/15/2023, the patient continues to be afebrile, the patient is breathing comfortably on 3L nasal cannula oxygen, the patient not a good historian as did not answer any questions, no vomiting diarrhea or any other changes reported by the nursing staff Objective - Vital Signs Vital signs: Vital Signs Temp 98.8 F 01/15/23 07:01 Pulse 76 01/15/23 09:01 Resp 18 01/15/23 07:01 BP 116/74 01/15/23 07:01 Pulse Ox 95 01/15/23 08:50 FiO2 Intake & Output 01/14/23 01/15/23 01/15/23 18:59 06:59 18:59 Intake Total 480 Output Total 300 1055 Balance -300 -575 Intake: Oral 480 Output: Urine 300 1055 Other: Voiding Method Urinal Urinal # Voids 4 1 # Bowel Movements 1 - Exam GENERAL DESCRIPTION: An elderly male up in the chair in no distress RESPIRATORY SYSTEM: Unlabored breathing , decreased breath sounds at bases HEART: S1 S2 regular rate and rhythm , ABDOMEN: Soft no tenderness EXTREMITIES: Bilateral lower extremity redness has improved still swollen - Labs CBC & Chem 7: 01/14/23 22:25 01/14/23 22:25 Labs: Abnormal Lab Results - Last 24 Hours (Table) 01/14/23 01/14/23 01/14/23 Range/Units 17:12 20:47 22:25 RBC 4.02 L (4.30-5.90) m/uL Hgb 11.3 L (13.0-17.5) gm/dL Hct 35.8 L (39.0-53.0) % RDW 18.3 H (11.5-15.5) % Sodium (137-145) mmol/L Chloride (98-107) mmol/L Glucose (74-99) mg/dL POC Glucose (mg/dL) 139 H 165 H (70-110) mg/dL Calcium (8.4-10.2) mg/dL 01/14/23 Range/Units 22:25 RBC (4.30-5.90) m/uL Hgb (13.0-17.5) gm/dL Hct (39.0-53.0) % RDW (11.5-15.5) % Sodium 134 L (137-145) mmol/L Chloride 96 L (98-107) mmol/L Glucose 125 H (74-99) mg/dL POC Glucose (mg/dL) (70-110) mg/dL Calcium 8.3 L (8.4-10.2) mg/dL Assessment and Plan (1) Bilateral lower leg cellulitis Current Visit: Yes Status: Acute Code(s): L03.116 - CELLULITIS OF LEFT LOWER LIMB; L03.115 - CELLULITIS OF RIGHT LOWER LIMB SNOMED Code(s): 980988360 Plan: 1patient was in the hospital with increasing shortness of breath also with increasing bilateral lower extremity swelling superficial ulceration, patient did have evidence of erythema warm to touch elevated inflammatory markers and a left shift on WBC of concern for possible cellulitis likely from gram-positive skin xu. 2patient with multiple antibiotic allergies that would limit the number of antibiotics safe to use 3-patient underlying cellulitis has been adequately treated, the patient is afebrile the patient white count is normal patient will be monitored closely off antibiotic therapy Time with Patient: Less than 30
[2023-01-15 11:49] LABS: Glucose,Whole Blood 89 mg/dL (70-110)
[2023-01-15 16:38] LABS: Glucose,Whole Blood 120 mg/dL (70-110)
--- NOTE | 2023-01-15 17:46 | P.PN ---
Subjective This is a pleasant 71 years old male with multiple medical problems including COPD, diabetes mellitus, hypertension, hyperlipidemia, osteoarthritis, GERD, diabetic neuropathy, chronic back pain, joint disease and falls He was recently in the hospital for COPD exacerbation and bilateral lower extremity edema and chronic CHF Patient presents because of bilateral patellar leg edema swelling and redness and erythema slowly get worse. He denies dyspnea. No chest pain. No change in urine or bowel habits Denies smoking alcohol or illicit drugs He is on 3 L oxygen at home. He is also on a prednisone 5 mg daily placed by his PCP Dr. Alfredo Vitals are stable Labs showing mild anemia with hemoglobin 10.8, rest of CBC, BMP and liver enzymes are unremarkable. Troponin is negative. Chest x-ray: Findings are consistent with mild pulmonary congestion EKG showing atrial fibrillation with controlled rate at [address]-T changes and QTC 422. 01/01/2023 Patient with bilateral leg swelling and redness but likely secondary to medicat ion effect as well as mild diastolic CHF. I don't think the patient has actual infection or cellulitis. Patient has good urine output on 80 mg by mouth every 8 hours. This was transcribed goes by news assignment editor Also patient placed on cefazolin by ID team Continue to discontinue Norvasc and prednisone. 01/02/2023 Patient has no new complaint His leg swelling is improving slowly and gradually, both legs are wrapped with Miguel bandage today He remains on IV Lasix 80 mg 3 times a day and cefazolin DC Norvasc and prednisone Is also on the farxiga 01/08/2023 Patient bilateral leg swelling is significantly improved. The suspicion of sigmoid this is low however he kept on Keflex Patient was cleared for discharge by cardiology and pulmonary team as well as infectious disease team He supposed to go to subacute rehab pending placement. Patient will need peer to peer evaluation prior to transfer to rehab for insurance authorization Patient is medically stable for discharge pending placement Patient today is comfortable with no new complaints. Patient eats well, no constipation urine is fine. Patient informed the need to follow-up with vascular surgery Dr. Lara in 1-2 weeks after discharge for lower extremity evaluation and he agrees. Contact information provided for 01/09/2023 Patient lying in bed comfortable going of the bed of the thyroid gland complaining of from chronic leg pain for many months Limits swelling significantly improved. No chest pain or dyspnea. He is on 3 L oxygen at home, we will lower his for a permanent down to 3 days to monitor Patient is a letter with a recommendation for follow-up as an outpatient and he is agreeable to it. Patient is medically stable for discharge pending placement ( will require peer to peer review on tuesday) 01/12/2023 pt is doing well overall ,no new complaint MAPS was checked today and he was on norco 7.5 mg q4hr, he said the norco 5 q8r does not help him so he agrees to increase the dose to qhr risk of 20 coagulation narcotics including but not limited to respiratory depression and are explained for him and he verbalized understanding and acceptance, he agrees to lower the dose to 7.5 mg every 8 hours but he says the 5 mg of [place] is not helping him. Patient with stable pending prior authorization for placement as well as shelter to accept him 01/13/2023 Patient clinically doing well, he is clinically stable. Patient is at baseline. He denies any new complaints for me. No dyspnea. His vitals are stable This complaining from chronic leg pain. MAPS was checked yesterday and his on [place] 7.5 around every 4 hours. I discussed with him. His medication including risk of respiratory depression and he verbalized understanding however he is adamant to keep it didn't [place] 7.5. We tried [place] 5 every 8 hours and did not controlled his pain then increase it to [place] 7.5 mg every 8 hours however he called later on wanted to be increased, which we did and now he is currently on [place] 7.5 mg every 6 hours. We will keep close monitoring for him. We recommend outpatient follow-up with pain medicine. I discussed with him the recommendation for outpatient follow-up including PCP, vascular surgery, cardiology services and others and he verbalized understanding and acceptance Patient is medically stable for discharge pending authorization and placement 01/14/2023 Patient was undergoing bilateral leg pain which looks controlled, this ongoing since admission and is chronic and patient is an [place] 7.5 mg. Pain controlled. Once all the patient today he did not ask for more pain medication. No other new complaints. Labs vitals and imaging reviewed. I discussed the case with social work nurse, still pending prior authorization If no authorization obtained today revealed to check labs tonight. 01/15/2023 patient clinically the same, with chronic leg pain, no new complaints We checked yesterday lid looks stable. Hemoglobin stable at 11.3, sodium 134, creatinine 0.8. Keflex was already discontinued Remains on Eliquis Patient remains pending prior authorization to go to rehab Objective - Vital Signs Vital signs: Vital Signs Temp 98.8 F 01/15/23 07:01 Pulse 76 01/15/23 09:01 Resp 18 01/15/23 07:01 BP 116/74 01/15/23 07:01 Pulse Ox 95 01/15/23 08:50 FiO2 Intake & Output 01/14/23 01/15/23 01/15/23 18:59 06:59 18:59 Intake Total 480 Output Total 300 1055 Balance -300 -575 Intake: Oral 480 Output: Urine 300 1055 Other: Voiding Method Urinal Urinal # Voids 4 1 # Bowel Movements 1 - Exam GENERAL: The patient is alert and oriented x3, not in any acute distress. Well developed, well nourished. HEENT: Pupils are round and equally reacting to light. EOMI. No scleral icterus. No conjunctival pallor. Normocephalic, atraumatic. No pharyngeal erythema. No thyromegaly. CARDIOVASCULAR: S1 and S2 present. No murmurs, rubs, or gallops. PULMONARY: Chest is clear to auscultation, no wheezing or crackles. ABDOMEN: Soft, nontender, nondistended, normoactive bowel sounds. No palpable organomegaly. MUSCULOSKELETAL: No joint swelling or deformity. -EXTREMITIES: No cyanosis, clubbing, bilateral pitting leg edema has significantly resolved NEUROLOGICAL: Gross neurological examination did not reveal any focal deficits. SKIN: No rashes. no petechiae. - Labs CBC & Chem 7: 01/14/23 22:25 01/14/23 22:25 Labs: Abnormal Lab Results - Last 24 Hours (Table) 01/14/23 01/14/23 01/14/23 Range/Units 17:12 20:47 22:25 RBC 4.02 L (4.30-5.90) m/uL Hgb 11.3 L (13.0-17.5) gm/dL Hct 35.8 L (39.0-53.0) % RDW 18.3 H (11.5-15.5) % Sodium (137-145) mmol/L Chloride (98-107) mmol/L Glucose (74-99) mg/dL POC Glucose (mg/dL) 139 H 165 H (70-110) mg/dL Calcium (8.4-10.2) mg/dL 01/14/23 Range/Units 22:25 RBC (4.30-5.90) m/uL Hgb (13.0-17.5) gm/dL Hct (39.0-53.0) % RDW (11.5-15.5) % Sodium 134 L (137-145) mmol/L Chloride 96 L (98-107) mmol/L Glucose 125 H (74-99) mg/dL POC Glucose (mg/dL) (70-110) mg/dL Calcium 8.3 L (8.4-10.2) mg/dL Assessment and Plan Assessment: Acute on chronic diastolic CHF Bilateral pitting leg edema, acute on chronic chronic atrial fibrillation on Eliquis and the rate is controlled Chronic hypoxic respiratory failure with related to her oxygen via nasal cannula Diabetes mellitus Hypertension Hyperlipidemia History of osteoarthritis History of GERD Diabetic neuropathy of feet and hands Chronic back pain Polyarthralgia History of falls History of anxiety and depression, not in activation Obese with BMI 38.5 Plan: Keflex was discontinued Currently On eliquis as well as oral Lasix needs peer to peer evaluation on tuesday for insurance authorization Instructed to follow up for vascular surgery Dr. Lara as an outpatient, nonurgent better. Patient currently asymptomatic Labs and medication were reviewed.. Continue same treatment. Continue with symptomatic treatment. Resume home medication. Monitor labs and vitals. DVT and GI prophylaxis. Further recommendations as per clinical course of the patient DVT prophylaxis: Eliquis GI Prophylaxis: Pepcid PT/OT followed subacute rehab pending authorization Prognosis is guarded
[2023-01-15] MEDS: ACETAMINOPHEN TAB 325 MG TAB PO PRN (19:19)
[2023-01-15 21:04] LABS: Glucose,Whole Blood 116 mg/dL (70-110)
[2023-01-15] MEDS: ATORVASTATIN 40 MG TAB PO SCH (21:05)
[2023-01-15] MEDS: MELATONIN 3 MG TABLET PO PRN (23:36)
[2023-01-16] MEDS: metFORMIN 500 MG TAB PO SCH ×2 (06:33→17:16)
[2023-01-16] MEDS: PANTOPRAZOLE 40 MG TABLET PO SCH (06:33)
--- NOTE | 2023-01-16 07:26 | XR ---
EXAMINATION TYPE: XR chest 1V DATE OF EXAM: 01/16/2023 6:51 AM COMPARISON: Chest radiographs from 01/03/2023 TECHNIQUE: XR chest 1V Frontal view of the chest. CLINICAL INDICATION:Male, 72 years old with history of chest pain; FINDINGS: Lungs/Pleura: Prominent interstitial lung markings are seen scattered throughout the lungs. No eviden ce of focal consolidation, pneumothorax. There is blunting of the costophrenic angles are poorly visu alized. Pulmonary vascularity: Unremarkable. Heart/mediastinum: Cardiomediastinal silhouette is enlarged and stable. Musculoskeletal: No acute osseous pathology. IMPRESSION: Pulmonary fibrotic changes without evidence for focal consolidation. Correlate with BNP for superimpo sed congestive heart failure.
[2023-01-16] MEDS: SYMBICORT 160-4.5 MCG INHALER INHALATION SCH ×2 (07:42→21:13)
[2023-01-16] MEDS: IPRATROPIUM-ALBUTEROL 3 ML NEB INHALATION PRN ×3 (07:42→21:12)
[2023-01-16] MEDS: DULoxetine HCL 30 MG CAPSULE.DR PO SCH (09:24)
[2023-01-16] MEDS: METOPROLOL TARTRATE 50 MG TAB PO SCH ×2 (09:24→20:56)
[2023-01-16] MEDS: DAPAGLIFLOZIN PROPANEDIOL 10 MG TABLET PO SCH (09:24)
[2023-01-16] MEDS: ESCITALOPRAM 5 MG TAB PO SCH (09:24)
[2023-01-16] MEDS: PREGABALIN 75 MG CAP PO SCH ×2 (09:25→20:56)
[2023-01-16] MEDS: TAMSULOSIN 0.4 MG CAP.ER.24H PO SCH (09:25)
[2023-01-16] MEDS: SPIRONOLACTONE 25 MG TAB PO SCH (09:25)
[2023-01-16] MEDS: SENNOSIDES 8.6 MG TAB PO SCH ×2 (09:25→20:56)
[2023-01-16] MEDS: NICOTINE 21MG/24HR PATCH TRANSDERM SCH (09:25)
[2023-01-16] MEDS: APIXABAN 5 MG TAB PO SCH ×2 (09:25→20:56)
[2023-01-16] MEDS: FUROSEMIDE 40 MG TAB PO SCH (09:25)
[2023-01-16] MEDS: HYDROcodone/APAP 7.5-325MG 1 EACH TAB PO PRN ×4 (09:25→22:44)
[2023-01-16 11:35] LABS: Glucose,Whole Blood 110 mg/dL (70-110)
[2023-01-16 16:42] LABS: Glucose,Whole Blood 125 mg/dL (70-110)
--- NOTE | 2023-01-16 17:36 | P.PN ---
Subjective This is a pleasant 71 years old male with multiple medical problems including COPD, diabetes mellitus, hypertension, hyperlipidemia, osteoarthritis, GERD, diabetic neuropathy, chronic back pain, joint disease and falls He was recently in the hospital for COPD exacerbation and bilateral lower extremity edema and chronic CHF Patient presents because of bilateral patellar leg edema swelling and redness and erythema slowly get worse. He denies dyspnea. No chest pain. No change in urine or bowel habits Denies smoking alcohol or illicit drugs He is on 3 L oxygen at home. He is also on a prednisone 5 mg daily placed by his PCP Dr. Alfredo Vitals are stable Labs showing mild anemia with hemoglobin 10.8, rest of CBC, BMP and liver enzymes are unremarkable. Troponin is negative. Chest x-ray: Findings are consistent with mild pulmonary congestion EKG showing atrial fibrillation with controlled rate at [address]-T changes and QTC 422. 01/01/2023 Patient with bilateral leg swelling and redness but likely secondary to medicat ion effect as well as mild diastolic CHF. I don't think the patient has actual infection or cellulitis. Patient has good urine output on 80 mg by mouth every 8 hours. This was transcribed goes by weight recorder Also patient placed on cefazolin by ID team Continue to discontinue Norvasc and prednisone. 01/02/2023 Patient has no new complaint His leg swelling is improving slowly and gradually, both legs are wrapped with Miguel bandage today He remains on IV Lasix 80 mg 3 times a day and cefazolin DC Norvasc and prednisone Is also on the farxiga 01/08/2023 Patient bilateral leg swelling is significantly improved. The suspicion of sigmoid this is low however he kept on Keflex Patient was cleared for discharge by cardiology and pulmonary team as well as infectious disease team He supposed to go to subacute rehab pending placement. Patient will need peer to peer evaluation prior to transfer to rehab for insurance authorization Patient is medically stable for discharge pending placement Patient today is comfortable with no new complaints. Patient eats well, no constipation urine is fine. Patient informed the need to follow-up with vascular surgery Dr. Lara in 1-2 weeks after discharge for lower extremity evaluation and he agrees. Contact information provided for 01/09/2023 Patient lying in bed comfortable going of the bed of the thyroid gland complaining of from chronic leg pain for many months Limits swelling significantly improved. No chest pain or dyspnea. He is on 3 L oxygen at home, we will lower his for a permanent down to 3 days to monitor Patient is a letter with a recommendation for follow-up as an outpatient and he is agreeable to it. Patient is medically stable for discharge pending placement ( will require peer to peer review on tuesday) 01/12/2023 pt is doing well overall ,no new complaint MAPS was checked today and he was on norco 7.5 mg q4hr, he said the norco 5 q8r does not help him so he agrees to increase the dose to qhr risk of 20 coagulation narcotics including but not limited to respiratory depression and are explained for him and he verbalized understanding and acceptance, he agrees to lower the dose to 7.5 mg every 8 hours but he says the 5 mg of [place] is not helping him. Patient with stable pending prior authorization for placement as well as intermediate to accept him 01/13/2023 Patient clinically doing well, he is clinically stable. Patient is at baseline. He denies any new complaints for me. No dyspnea. His vitals are stable This complaining from chronic leg pain. MAPS was checked yesterday and his on [place] 7.5 around every 4 hours. I discussed with him. His medication including risk of respiratory depression and he verbalized understanding however he is adamant to keep it didn't [place] 7.5. We tried [place] 5 every 8 hours and did not controlled his pain then increase it to [place] 7.5 mg every 8 hours however he called later on wanted to be increased, which we did and now he is currently on [place] 7.5 mg every 6 hours. We will keep close monitoring for him. We recommend outpatient follow-up with pain medicine. I discussed with him the recommendation for outpatient follow-up including PCP, vascular surgery, cardiology services and others and he verbalized understanding and acceptance Patient is medically stable for discharge pending authorization and placement 01/14/2023 Patient was undergoing bilateral leg pain which looks controlled, this ongoing since admission and is chronic and patient is an [place] 7.5 mg. Pain controlled. Once all the patient today he did not ask for more pain medication. No other new complaints. Labs vitals and imaging reviewed. I discussed the case with director social welfare, still pending prior authorization If no authorization obtained today revealed to check labs tonight. 01/15/2023 patient clinically the same, with chronic leg pain, no new complaints We checked yesterday lid looks stable. Hemoglobin stable at 11.3, sodium 134, creatinine 0.8. Keflex was already discontinued Remains on Eliquis Patient remains pending prior authorization to go to rehab 01/16/2023 I had several discussions with the patient on several occasions about the risk of narcotics including the risk of respiratory depression and/or , he verbalized understanding, we tried to lower the dose but he kept asking for more [place] does increase, called this morning he was on [place] 7.5 mg every 6 hours compared to hose home dose of every 4 hours, however surrounding bedside nurse called me that the patient was his [place] frequency increased to every 4 hours. Dose frequency was increased upon his request, risks are explained for him extensively. We recommend patient follow up with the pain clinic as an outpatient. However patient states that his been chronically taking [place] 7.5 mg every 6 hours, explant for the patient states risk still there despite that Prognosis is guarded Objective - Vital Signs Vital signs: Vital Signs Temp 98.1 F 01/16/23 05:30 Pulse 68 01/16/23 07:58 Resp 16 01/16/23 07:06 BP 139/83 01/16/23 07:06 Pulse Ox 95 01/16/23 07:42 FiO2 Intake & Output 01/15/23 01/16/23 01/16/23 18:59 06:59 18:59 Intake Total 378 Output Total 1710 1200 Balance -1710 -822 Intake: Oral 378 Output: Urine 1710 1200 Other: Voiding Method Urinal Urinal # Voids 0 # Bowel Movements 0 - Exam GENERAL: The patient is alert and oriented x3, not in any acute distress. Well developed, well nourished. HEENT: Pupils are round and equally reacting to light. EOMI. No scleral icterus. No conjunctival pallor. Normocephalic, atraumatic. No pharyngeal erythema. No thyromegaly. CARDIOVASCULAR: S1 and S2 present. No murmurs, rubs, or gallops. PULMONARY: Chest is clear to auscultation, no wheezing or crackles. ABDOMEN: Soft, nontender, nondistended, normoactive bowel sounds. No palpable organomegaly. MUSCULOSKELETAL: No joint swelling or deformity. -EXTREMITIES: No cyanosis, clubbing, bilateral pitting leg edema has significantly resolved NEUROLOGICAL: Gross neurological examination did not reveal any focal deficits. SKIN: No rashes. no petechiae. - Labs CBC & Chem 7: 01/14/23 22:25 01/14/23 22:25 Labs: Abnormal Lab Results - Last 24 Hours (Table) 01/15/23 01/15/23 Range/Units 16:37 21:01 POC Glucose (mg/dL) 120 H 116 H (70-110) mg/dL Assessment and Plan Assessment: Acute on chronic diastolic CHF Bilateral pitting leg edema, acute on chronic chronic atrial fibrillation on Eliquis and the rate is controlled Chronic hypoxic respiratory failure with related to her oxygen via nasal cannula Diabetes mellitus Hypertension Hyperlipidemia History of osteoarthritis History of GERD Diabetic neuropathy of feet and hands Chronic back pain Polyarthralgia History of falls History of anxiety and depression, not in activation Obese with BMI 38.5 Plan: Patient is recommended to increase his [place] 7.5 mg to his home dose of every 4 hours Keflex was discontinued Currently On eliquis as well as oral Lasix needs peer to peer evaluation on tuesday for insurance authorization Instructed to follow up for vascular surgery Dr. Lara as an outpatient, nonurgent better. Patient currently asymptomatic Labs and medication were reviewed.. Continue same treatment. Continue with symptomatic treatment. Resume home medication. Monitor labs and vitals. DVT and GI prophylaxis. Further recommendations as per clinical course of the patient DVT prophylaxis: Eliquis GI Prophylaxis: Pepcid PT/OT followed subacute rehab pending authorization Prognosis is guarded patient has capacity to make medical decision upon my evaluation
[2023-01-16] MEDS: ACETAMINOPHEN TAB 325 MG TAB PO PRN (20:55)
[2023-01-16] MEDS: MELATONIN 3 MG TABLET PO PRN (20:55)
[2023-01-16] MEDS: ATORVASTATIN 40 MG TAB PO SCH (20:56)
[2023-01-16 21:13] LABS: Glucose,Whole Blood 116 mg/dL (70-110)
[2023-01-17 05:08] LABS: Glucose,Whole Blood 97 mg/dL (70-110)
[2023-01-17] MEDS: metFORMIN 500 MG TAB PO SCH ×2 (06:25→17:25)
[2023-01-17] MEDS: PANTOPRAZOLE 40 MG TABLET PO SCH (06:25)
[2023-01-17] MEDS: SPIRONOLACTONE 25 MG TAB PO SCH (07:50)
[2023-01-17] MEDS: PREGABALIN 75 MG CAP PO SCH ×2 (07:50→20:43)
[2023-01-17] MEDS: METOPROLOL TARTRATE 50 MG TAB PO SCH ×2 (07:50→20:44)
[2023-01-17] MEDS: TAMSULOSIN 0.4 MG CAP.ER.24H PO SCH (07:50)
[2023-01-17] MEDS: FUROSEMIDE 40 MG TAB PO SCH (07:51)
[2023-01-17] MEDS: NICOTINE 21MG/24HR PATCH TRANSDERM SCH (07:51)
[2023-01-17] MEDS: SENNOSIDES 8.6 MG TAB PO SCH ×2 (07:51→20:43)
[2023-01-17] MEDS: APIXABAN 5 MG TAB PO SCH ×2 (07:51→20:44)
[2023-01-17] MEDS: HYDROcodone/APAP 7.5-325MG 1 EACH TAB PO PRN ×3 (07:51→17:25)
[2023-01-17] MEDS: DULoxetine HCL 30 MG CAPSULE.DR PO SCH (07:52)
[2023-01-17] MEDS: DAPAGLIFLOZIN PROPANEDIOL 10 MG TABLET PO SCH (07:52)
[2023-01-17] MEDS: ESCITALOPRAM 5 MG TAB PO SCH (07:52)
[2023-01-17] MEDS: SYMBICORT 160-4.5 MCG INHALER INHALATION SCH ×2 (08:05→21:54)
[2023-01-17] MEDS: IPRATROPIUM-ALBUTEROL 3 ML NEB INHALATION PRN ×2 (08:06→21:54)
--- NOTE | 2023-01-17 11:42 | P.PN ---
Subjective Progress Note Date: 01/17/23 Principal diagnosis: Bilateral lower extremity cellulitis Patient is a 72-year-old male with a past medical history significant for atrial fibrillation diabetes mellitus COPD hypertension hyperlipidemia and diabetic neuropathy patient did have a history of bilateral lower extremity venous stasis ulceration and cellulitis, patient presenting to the hospital for evaluation of increasing shortness of breath and bilateral extremity swelling, and concern for bilateral lower extremity cellulitis On today's evaluation that is 01/17/2023, the patient continues to be afebrile, the patient is breathing comfortably on 3L nasal cannula oxygen, the patient has been complaining of pain to bilateral lower extremity describing it to be more of a burning pain currently with no redness no open wound or any drainage Objective - Vital Signs Vital signs: Vital Signs Temp 97.9 F 01/17/23 07:34 Pulse 78 01/17/23 08:22 Resp 18 01/17/23 07:53 BP 127/81 01/17/23 07:34 Pulse Ox 92 L 01/17/23 08:06 FiO2 Intake & Output 01/16/23 01/17/23 01/17/23 18:59 06:59 18:59 Intake Total 120 Output Total 600 600 Balance -480 -600 Intake: Oral 120 Output: Urine 600 600 Other: Voiding Method Urinal Toilet Urinal # Voids 4 - Exam GENERAL DESCRIPTION: An elderly male up in the chair in no distress RESPIRATORY SYSTEM: Unlabored breathing , decreased breath sounds at bases HEART: S1 S2 regular rate and rhythm , ABDOMEN: Soft no tenderness EXTREMITIES: Bilateral lower extremity redness has resolved - Labs CBC & Chem 7: 01/14/23 22:25 01/14/23 22:25 Labs: Abnormal Lab Results - Last 24 Hours (Table) 01/16/23 01/16/23 Range/Units 16:40 21:12 POC Glucose (mg/dL) 125 H 116 H (70-110) mg/dL Assessment and Plan (1) Bilateral lower leg cellulitis Current Visit: Yes Status: Acute Code(s): L03.116 - CELLULITIS OF LEFT LOWER LIMB; L03.115 - CELLULITIS OF RIGHT LOWER LIMB SNOMED Code(s): 976068715 Plan: 1patient was in the hospital with increasing shortness of breath also with increasing bilateral lower extremity swelling superficial ulceration, patient did have evidence of erythema warm to touch elevated inflammatory markers and a left shift on WBC of concern for possible cellulitis likely from gram-positive skin xu. 2-patient underlying bilateral lower extremity cellulitis has been adequately treated, the patient is afebrile the patient white count is normal patient will be monitored closely off antibiotic therapy, still complaining of pain suggestive of possible neuropathy may benefit from Neurontin or Lyrica Time with Patient: Less than 30
[2023-01-17 11:48] LABS: Glucose,Whole Blood 100 mg/dL (70-110)
--- NOTE | 2023-01-17 13:19 | P.PN ---
Subjective Progress Note Date: 01/17/23 This is a pleasant 71 years old male with multiple medical problems including COPD, diabetes mellitus, hypertension, hyperlipidemia, osteoarthritis, GERD, diabetic neuropathy, chronic back pain, joint disease and falls He was recently in the hospital for COPD exacerbation and bilateral lower extremity edema and chronic CHF Patient presents because of bilateral patellar leg edema swelling and redness and erythema slowly get worse. He denies dyspnea. No chest pain. No change in urine or bowel habits Denies smoking alcohol or illicit drugs He is on 3 L oxygen at home. He is also on a prednisone 5 mg daily placed by his PCP Dr. Alfredo Vitals are stable Labs showing mild anemia with hemoglobin 10.8, rest of CBC, BMP and liver enzymes are unremarkable. Troponin is negative. Chest x-ray: Findings are consistent with mild pulmonary congestion EKG showing atrial fibrillation with controlled rate at [address]-T changes and QTC 422. 01/01/2023 Patient with bilateral leg swelling and redness but likely secondary to medication effect as well as mild diastolic CHF. I don't think the patient has actual infection or cellulitis. Patient has good urine output on 80 mg by mouth every 8 hours. This was transcribed goes by test fixture designer Also patient placed on cefazolin by ID team Continue to discontinue Norvasc and prednisone. 01/02/2023 Patient has no new complaint His leg swelling is improving slowly and gradually, both legs are wrapped with Miguel bandage today He remains on IV Lasix 80 mg 3 times a day and cefazolin DC Norvasc and prednisone Is also on the farxiga 01/08/2023 Patient bilateral leg swelling is significantly improved. The suspicion of sigmoid this is low however he kept on Keflex Patient was cleared for discharge by cardiology and pulmonary team as well as infectious disease team He supposed to go to subacute rehab pending placement. Patient will need peer to peer evaluation prior to transfer to rehab for insurance authorization Patient is medically stable for discharge pending placement Patient today is comfortable with no new complaints. Patient eats well, no constipation urine is fine. Patient informed the need to follow-up with vascular surgery Dr. Lara in 1-2 weeks after discharge for lower extremity evaluation and he agrees. Contact information provided for 01/09/2023 Patient lying in bed comfortable going of the bed of the thyroid gland complaining of from chronic leg pain for many months Limits swelling significantly improved. No chest pain or dyspnea. He is on 3 L oxygen at home, we will lower his for a permanent down to 3 days to monitor Patient is a letter with a recommendation for follow-up as an outpatient and he is agreeable to it. Patient is medically stable for discharge pending placement ( will require peer to peer review on tuesday) 01/12/2023 pt is doing well overall ,no new complaint MAPS was checked today and he was on norco 7.5 mg q4hr, he said the norco 5 q8r does not help him so he agrees to increase the dose to qhr risk of 20 coagulation narcotics including but not limited to respiratory depression and are explained for him and he verbalized understanding and acceptance, he agrees to lower the dose to 7.5 mg every 8 hours but he says the 5 mg of [place] is not helping him. Patient with stable pending prior authorization for placement as well as shelter to accept him 01/13/2023 Patient clinically doing well, he is clinically stable. Patient is at baseline. He denies any new complaints for me. No dyspnea. His vitals are stable This complaining from chronic leg pain. MAPS was checked yesterday and his on [place] 7.5 around every 4 hours. I discussed with him. His medication including risk of respiratory depression and he verbalized understanding however he is adamant to keep it didn't [place] 7.5. We tried [place] 5 every 8 hours and did not controlled his pain then increase it to [place] 7.5 mg every 8 hours however he called later on wanted to be increased, which we did and now he is currently on [place] 7.5 mg every 6 hours. We will keep close monitoring for him. We re commend outpatient follow-up with pain medicine. I discussed with him the recommendation for outpatient follow-up including PCP, vascular surgery, cardiology services and others and he verbalized understanding and acceptance Patient is medically stable for discharge pending authorization and placement 01/14/2023 Patient was undergoing bilateral leg pain which looks controlled, this ongoing since admission and is chronic and patient is an [place] 7.5 mg. Pain controlled. Once all the patient today he did not ask for more pain medication. No other new complaints. Labs vitals and imaging reviewed. I discussed the case with long term care social worker, still pending prior authorization If no authorization obtained today revealed to check labs tonight. 01/15/2023 patient clinically the same, with chronic leg pain, no new complaints We checked yesterday lid looks stable. Hemoglobin stable at 11.3, sodium 134, creatinine 0.8. Keflex was already discontinued Remains on Eliquis Patient remains pending prior authorization to go to rehab 01/16/2023 I had several discussions with the patient on several occasions about the risk of narcotics including the risk of respiratory depression and/or , he verbalized understanding, we tried to lower the dose but he kept asking for more [place] does increase, called this morning he was on [place] 7.5 mg every 6 hours compared to hose home dose of every 4 hours, however surrounding bedside nurse called me that the patient was his [place] frequency increased to every 4 hours. Dose frequency was increased upon his request, risks are explained for him extensively. We recommend patient follow up with the pain clinic as an outpatient. However patient states that his been chronically taking [place] 7.5 mg every 6 hours, explant for the patient states risk still there despite that Prognosis is guarded 01/17. Patient seen and examined. Complaining of shoulder pains. Denies any shortness of breath. Vital signs stable REVIEW OF SYSTEMS: CONSTITUTIONAL: No fever, no malaise,. CARDIOVASCULAR: No chest pain, no palpitations, no syncope. PULMONARY: No shortness of breath, no cough, GASTROINTESTINAL: No diarrhea, no nausea, no vomiting, no abdominal pain. NEUROLOGICAL: No headaches, no weakness, PHYSICAL EXAMINATION: GENERAL: The patient is alert and oriented x3, not in any acute distress. Well developed, well nourished. HEENT: Pupils are round and equally reacting to light. EOMI. No scleral icterus. No conjunctival pallor. Normocephalic, atraumatic. No pharyngeal erythema. No thyromegaly. CARDIOVASCULAR: S1 and S2 present. No murmurs, rubs, or gallops. PULMONARY: Chest is clear to auscultation, no wheezing or crackles. ABDOMEN: Soft, nontender, nondistended, normoactive bowel sounds. No palpable organomegaly. MUSCULOSKELETAL: No joint swelling or deformity. EXTREMITIES: No cyanosis, clubbing, or pedal edema. NEUROLOGICAL: Gross neurological examination did not reveal any focal deficits. SKIN: No rashes. Assessment and plan Acute on chronic diastolic CHF Bilateral pitting leg edema, acute on chronic chronic atrial fibrillation on Eliquis and the rate is controlled Chronic hypoxic respiratory failure with related to her oxygen via nasal cannula Diabetes mellitus Hypertension Hyperlipidemia History of osteoarthritis History of GERD Diabetic neuropathy of feet and hands Chronic back pain Polyarthralgia History of falls History of anxiety and depression, not in activation Obese with BMI 38.5 Plan; Monitor vital signs Monitor CBC Monitor CMP Currently On eliquis as well as oral Lasix needs peer to peer evaluation on tuesday for insurance authorization Instructed to follow up for vascular surgery Dr. Lara as an outpatient, nonurgent better. Labs and medication were reviewed.. Continue same treatment. Continue with symptomatic treatment. Objective - Vital Signs Vital signs: Vital Signs Temp 97.9 F 01/17/23 07:34 Pulse 78 01/17/23 08:22 Resp 18 01/17/23 07:53 BP 127/81 01/17/23 07:34 Pulse Ox 92 L 01/17/23 08:06 FiO2 Intake & Output 01/16/23 01/17/23 01/17/23 18:59 06:59 18:59 Intake Total 120 Output Total 600 600 Balance -480 -600 Intake: Oral 120 Output: Urine 600 600 Other: Voiding Method Urinal Toilet Urinal # Voids 4 - Labs CBC & Chem 7: 01/14/23 22:25 01/14/23 22:25 Labs: Abnormal Lab Results - Last 24 Hours (Table) 01/16/23 01/16/23 Range/Units 16:40 21:12 POC Glucose (mg/dL) 125 H 116 H (70-110) mg/dL
[2023-01-17 16:20] LABS: Glucose,Whole Blood 159 mg/dL (70-110)
[2023-01-17 19:57] LABS: Glucose,Whole Blood 180 mg/dL (70-110)
[2023-01-17] MEDS: ATORVASTATIN 40 MG TAB PO SCH (20:44)
[2023-01-18] MEDS: HYDROcodone/APAP 7.5-325MG 1 EACH TAB PO PRN ×5 (00:50→20:21)
[2023-01-18 06:08] LABS: Glucose,Whole Blood 93 mg/dL (70-110)
[2023-01-18] MEDS: PANTOPRAZOLE 40 MG TABLET PO SCH (06:22)
[2023-01-18] MEDS: IPRATROPIUM-ALBUTEROL 3 ML NEB INHALATION PRN ×3 (07:55→20:34)
[2023-01-18] MEDS: SYMBICORT 160-4.5 MCG INHALER INHALATION SCH ×2 (07:56→20:34)
[2023-01-18] MEDS: SPIRONOLACTONE 25 MG TAB PO SCH (08:21)
[2023-01-18] MEDS: METOPROLOL TARTRATE 50 MG TAB PO SCH ×2 (08:21→20:56)
[2023-01-18] MEDS: PREGABALIN 75 MG CAP PO SCH ×2 (08:21→20:34)
[2023-01-18] MEDS: metFORMIN 500 MG TAB PO SCH ×2 (08:21→16:46)
[2023-01-18] MEDS: TAMSULOSIN 0.4 MG CAP.ER.24H PO SCH (08:21)
[2023-01-18] MEDS: SENNOSIDES 8.6 MG TAB PO SCH ×2 (08:21→20:34)
[2023-01-18] MEDS: APIXABAN 5 MG TAB PO SCH ×2 (08:21→20:34)
[2023-01-18] MEDS: FUROSEMIDE 40 MG TAB PO SCH (08:21)
[2023-01-18] MEDS: DULoxetine HCL 30 MG CAPSULE.DR PO SCH (08:22)
[2023-01-18] MEDS: ESCITALOPRAM 5 MG TAB PO SCH (08:22)
[2023-01-18] MEDS: DAPAGLIFLOZIN PROPANEDIOL 10 MG TABLET PO SCH (08:22)
[2023-01-18] MEDS: NICOTINE 21MG/24HR PATCH TRANSDERM SCH (08:22)
--- NOTE | 2023-01-18 11:29 | P.PN ---
Subjective Progress Note Date: 01/14/23 Principal diagnosis: Bilateral lower extremity cellulitis Patient is a 72-year-old male with a past medical history significant for atrial fibrillation diabetes mellitus COPD hypertension hyperlipidemia and diabetic neuropathy patient did have a history of bilateral lower extremity venous stasis ulceration and cellulitis, patient presenting to the hospital for evaluation of increasing shortness of breath and bilateral extremity swelling, and concern for bilateral lower extremity cellulitis On today's evaluation that is 01/14/2023, the patient remains to be afebrile, the patient is breathing comfortably on 3L nasal cannula oxygen, the patient sleepy today, and has not a good historian, no vomiting diarrhea or any other changes reported by the nursing staff Objective - Vital Signs Vital signs: Vital Signs Temp 97.2 F L 01/14/23 07:20 Pulse 78 01/14/23 07:20 Resp 17 01/14/23 07:20 BP 118/66 01/14/23 07:20 Pulse Ox 98 01/14/23 07:49 FiO2 Intake & Output 01/13/23 01/14/23 01/14/23 18:59 06:59 18:59 Output Total 230 Balance -230 Output: Urine 230 Other: Voiding Method Urinal # Voids 3 - Exam GENERAL DESCRIPTION: An elderly male up in the chair in no distress RESPIRATORY SYSTEM: Unlabored breathing , decreased breath sounds at bases HEART: S1 S2 regular rate and rhythm , ABDOMEN: Soft no tenderness EXTREMITIES: Bilateral lower extremity redness has improved still swollen - Labs CBC & Chem 7: 01/08/23 06:55 01/08/23 06:55 Labs: Abnormal Lab Results - Last 24 Hours (Table) 01/13/23 Range/Units 20:17 POC Glucose (mg/dL) 120 H (70-110) mg/dL Assessment and Plan (1) Bilateral lower leg cellulitis Current Visit: Yes Status: Acute Code(s): L03.116 - CELLULITIS OF LEFT LOWER LIMB; L03.115 - CELLULITIS OF RIGHT LOWER LIMB SNOMED Code(s): 655584100 Plan: 1patient was in the hospital with increasing shortness of breath also with increasing bilateral lower extremity swelling superficial ulceration, patient did have evidence of erythema warm to touch elevated inflammatory markers and a left shift on WBC of concern for possible cellulitis likely from gram-positive skin xu. 2patient with multiple antibiotic allergies that would limit the number of antibiotics safe to use 3-patient underlying cellulitis has been adequately treated currently being monitor closely off antibiotic therapy Time with Patient: Less than 30
--- NOTE | 2023-01-18 11:29 | P.PN ---
Subjective Progress Note Date: 01/16/23 Principal diagnosis: Bilateral lower extremity cellulitis Patient is a 72-year-old male with a past medical history significant for atrial fibrillation diabetes mellitus COPD hypertension hyperlipidemia and diabetic neuropathy patient did have a history of bilateral lower extremity venous stasis ulceration and cellulitis, patient presenting to the hospital for evaluation of increasing shortness of breath and bilateral extremity swelling, and concern for bilateral lower extremity cellulitis On today's evaluation that is 01/16/2023, the patient remains to be afebrile, the patient is breathing comfortably on 3L nasal cannula oxygen, the patient is up in the chair has been complaining of pain to the shoulder and bilateral lower extremity asking for more pain medication not abdominal pain and no diarrhea Objective - Vital Signs Vital signs: Vital Signs Temp 98.2 F 01/16/23 13:39 Pulse 75 01/16/23 13:39 Resp 18 01/16/23 13:39 BP 101/50 01/16/23 13:39 Pulse Ox 98 01/16/23 13:39 FiO2 Intake & Output 01/15/23 01/16/23 01/16/23 18:59 06:59 18:59 Intake Total 378 Output Total 1710 1200 Balance -3800 822 Intake: Oral 378 Output: Urine 1710 1200 Other: Voiding Method Urinal Urinal Urinal # Voids 0 # Bowel Movements 0 - Exam GENERAL DESCRIPTION: An elderly male up in the chair in no distress RESPIRATORY SYSTEM: Unlabored breathing , decreased breath sounds at bases HEART: S1 S2 regular rate and rhythm , ABDOMEN: Soft no tenderness EXTREMITIES: Bilateral lower extremity redness has resolved - Labs CBC & Chem 7: 01/14/23 22:25 01/14/23 22:25 Labs: Abnormal Lab Results - Last 24 Hours (Table) 01/15/23 01/15/23 Range/Units 16:37 21:01 POC Glucose (mg/dL) 120 H 116 H (70-110) mg/dL Assessment and Plan (1) Bilateral lower leg cellulitis Current Visit: Yes Status: Acute Code(s): L03.116 - CELLULITIS OF LEFT LOWER LIMB; L03.115 - CELLULITIS OF RIGHT LOWER LIMB SNOMED Code(s): 191743339 Plan: 1patient was in the hospital with increasing shortness of breath also with increasing bilateral lower extremity swelling superficial ulceration, patient did have evidence of erythema warm to touch elevated inflammatory markers and a left shift on WBC of concern for possible cellulitis likely from gram-positive skin xu. 2-patient underlying bilateral lower extremity cellulitis has been adequately treated, the patient is afebrile the patient white count is normal patient will be monitored closely off antibiotic therapy, questions concerned were answered Time with Patient: Less than 30
[2023-01-18 11:41] LABS: Glucose,Whole Blood 96 mg/dL (70-110)
--- NOTE | 2023-01-18 12:51 | P.PN ---
Subjective Progress Note Date: 01/18/23 This is a pleasant 71 years old male with multiple medical problems including COPD, diabetes mellitus, hypertension, hyperlipidemia, osteoarthritis, GERD, diabetic neuropathy, chronic back pain, joint disease and falls He was recently in the hospital for COPD exacerbation and bilateral lower extremity edema and chronic CHF Patient presents because of bilateral patellar leg edema swelling and redness and erythema slowly get worse. He denies dyspnea. No chest pain. No change in urine or bowel habits Denies smoking alcohol or illicit drugs He is on 3 L oxygen at home. He is also on a prednisone 5 mg daily placed by his PCP Dr. Alfredo Vitals are stable Labs showing mild anemia with hemoglobin 10.8, rest of CBC, BMP and liver enzymes are unremarkable. Troponin is negative. Chest x-ray: Findings are consistent with mild pulmonary congestion EKG showing atrial fibrillation with controlled rate at [address]-T changes and QTC 422. 01/01/2023 Patient with bilateral leg swelling and redness but likely secondary to medication effect as well as mild diastolic CHF. I don't think the patient has actual infection or cellulitis. Patient has good urine output on 80 mg by mouth every 8 hours. This was transcribed goes by operations research engineer Also patient placed on cefazolin by ID team Continue to discontinue Norvasc and prednisone. 01/02/2023 Patient has no new complaint His leg swelling is improving slowly and gradually, both legs are wrapped with Miguel bandage today He remains on IV Lasix 80 mg 3 times a day and cefazolin DC Norvasc and prednisone Is also on the farxiga 01/08/2023 Patient bilateral leg swelling is significantly improved. The suspicion of sigmoid this is low however he kept on Keflex Patient was cleared for discharge by cardiology and pulmonary team as well as infectious disease team He supposed to go to subacute rehab pending placement. Patient will need peer to peer evaluation prior to transfer to rehab for insurance authorization Patient is medically stable for discharge pending placement Patient today is comfortable with no new complaints. Patient eats well, no constipation urine is fine. Patient informed the need to follow-up with vascular surgery Dr. Lara in 1-2 weeks after discharge for lower extremity evaluation and he agrees. Contact information provided for 01/09/2023 Patient lying in bed comfortable going of the bed of the thyroid gland complaining of from chronic leg pain for many months Limits swelling significantly improved. No chest pain or dyspnea. He is on 3 L oxygen at home, we will lower his for a permanent down to 3 days to monitor Patient is a letter with a recommendation for follow-up as an outpatient and he is agreeable to it. Patient is medically stable for discharge pending placement ( will require peer to peer review on tuesday) 01/12/2023 pt is doing well overall ,no new complaint MAPS was checked today and he was on norco 7.5 mg q4hr, he said the norco 5 q8r does not help him so he agrees to increase the dose to qhr risk of 20 coagulation narcotics including but not limited to respiratory depression and are explained for him and he verbalized understanding and acceptance, he agrees to lower the dose to 7.5 mg every 8 hours but he says the 5 mg of Dillon is not helping him. Patient with stable pending prior authorization for placement as well as [facility] to accept him 01/13/2023 Patient clinically doing well, he is clinically stable. Patient is at baseline. He denies any new complaints for me. No dyspnea. His vitals are stable This complaining from chronic leg pain. MAPS was checked yesterday and his on Dillon 7.5 around every 4 hours. I discussed with him. His medication including risk of respiratory depression and he verbalized understanding however he is adamant to keep it didn't Dillon 7.5. We tried Dillon 5 every 8 hours and did not controlled his pain then increase it to Dillon 7.5 mg every 8 hours however he called later on wanted to be increased, which we did and now he is currently on Dillon 7.5 mg every 6 hours. We will keep close monitoring for him. We re commend outpatient follow-up with pain medicine. I discussed with him the recommendation for outpatient follow-up including PCP, vascular surgery, cardiology services and others and he verbalized understanding and acceptance Patient is medically stable for discharge pending authorization and placement 01/14/2023 Patient was undergoing bilateral leg pain which looks controlled, this ongoing since admission and is chronic and patient is an Dillon 7.5 mg. Pain controlled. Once all the patient today he did not ask for more pain medication. No other new complaints. Labs vitals and imaging reviewed. I discussed the case with social work nurse, still pending prior authorization If no authorization obtained today revealed to check labs tonight. 01/15/2023 patient clinically the same, with chronic leg pain, no new complaints We checked yesterday lid looks stable. Hemoglobin stable at 11.3, sodium 134, creatinine 0.8. Keflex was already discontinued Remains on Eliquis Patient remains pending prior authorization to go to rehab 01/16/2023 I had several discussions with the patient on several occasions about the risk of narcotics including the risk of respiratory depression and/or , he verbalized understanding, we tried to lower the dose but he kept asking for more Dillon does increase, called this morning he was on Dillon 7.5 mg every 6 hours compared to hose home dose of every 4 hours, however surrounding bedside nurse called me that the patient was his Dillon frequency increased to every 4 hours. Dose frequency was increased upon his request, risks are explained for him extensively. We recommend patient follow up with the pain clinic as an outpatient. However patient states that his been chronically taking Dillon 7.5 mg every 6 hours, explant for the patient states risk still there despite that Prognosis is guarded 01/17. Patient seen and examined. Complaining of shoulder pains. Denies any shortness of breath. Vital signs stable 01/18. Patient laying comfortably in the bed. No acute issues overnight. Currently waiting on insurance authorization for rehab facility REVIEW OF SYSTEMS: CONSTITUTIONAL: No fever, no malaise,. CARDIOVASCULAR: No chest pain, no palpitations, no syncope. PULMONARY: No shortness of breath, no cough, GASTROINTESTINAL: No diarrhea, no nausea, no vomiting, no abdominal pain. NEUROLOGICAL: No headaches, no weakness, PHYSICAL EXAMINATION: GENERAL: The patient is alert and oriented x3, not in any acute distress. Well developed, well nourished. HEENT: Pupils are round and equally reacting to light. EOMI. No scleral icterus. No conjunctival pallor. Normocephalic, atraumatic. No pharyngeal erythema. No th yromegaly. CARDIOVASCULAR: S1 and S2 present. No murmurs, rubs, or gallops. PULMONARY: Chest is clear to auscultation, no wheezing or crackles. ABDOMEN: Soft, nontender, nondistended, normoactive bowel sounds. No palpable organomegaly. MUSCULOSKELETAL: No joint swelling or deformity. EXTREMITIES: No cyanosis, clubbing, or pedal edema. NEUROLOGICAL: Gross neurological examination did not reveal any focal deficits. SKIN: No rashes. Assessment and plan Acute on chronic diastolic CHF Bilateral pitting leg edema, acute on chronic chronic atrial fibrillation on Eliquis and the rate is controlled Chronic hypoxic respiratory failure with related to her oxygen via nasal cannula Diabetes mellitus Hypertension Hyperlipidemia History of osteoarthritis History of GERD Diabetic neuropathy of feet and hands Chronic back pain Polyarthralgia History of falls History of anxiety and depression, not in activation Obese with BMI 38.5 Plan; Monitor vital signs Currently On eliquis as well as oral Lasix continue Fraxiga Continue breathing treatments Instructed to follow up for vascular surgery Dr. Lara as an outpatient, nonurgent better. Labs and medication were reviewed.. Continue same treatment. Continue with symptomatic treatment. case management on board, currently waiting on insurance authorization for rehab facility Objective - Vital Signs Vital signs: Vital Signs Temp 97.8 F 01/18/23 06:58 Pulse 86 01/18/23 08:08 Resp 19 01/18/23 06:58 BP 121/65 01/18/23 06:58 Pulse Ox 96 01/18/23 07:56 FiO2 Intake & Output 01/17/23 01/18/23 01/18/23 18:59 06:59 18:59 Intake Total 833 Output Total 1450 200 Balance -617 -200 Intake: Oral 833 Output: Urine 1450 200 Other: Voiding Method Toilet Toilet Urinal Urinal # Voids 3 - Labs CBC & Chem 7: 01/14/23 22:25 01/14/23 22:25 Labs: Abnormal Lab Results - Last 24 Hours (Table) 01/17/23 01/17/23 Range/Units 16:18 19:56 POC Glucose (mg/dL) 159 H 180 H (70-110) mg/dL
[2023-01-18 14:55] VITALS: BMI 41.5
[2023-01-18 16:35] LABS: Glucose,Whole Blood 143 mg/dL (70-110)
[2023-01-18 20:04] LABS: Glucose,Whole Blood 97 mg/dL (70-110)
[2023-01-18] MEDS: ATORVASTATIN 40 MG TAB PO SCH (20:34)
[2023-01-19 05:46] LABS: Glucose,Whole Blood 101 mg/dL (70-110)
[2023-01-19] MEDS: PANTOPRAZOLE 40 MG TABLET PO SCH (06:20)
[2023-01-19] MEDS: SYMBICORT 160-4.5 MCG INHALER INHALATION SCH ×2 (07:30→20:46)
[2023-01-19] MEDS: NICOTINE 21MG/24HR PATCH TRANSDERM SCH (08:40)
[2023-01-19] MEDS: APIXABAN 5 MG TAB PO SCH ×2 (08:40→20:38)
[2023-01-19] MEDS: HYDROcodone/APAP 7.5-325MG 1 EACH TAB PO PRN ×4 (08:40→22:29)
[2023-01-19] MEDS: METOPROLOL TARTRATE 50 MG TAB PO SCH ×2 (08:41→20:38)
[2023-01-19] MEDS: ESCITALOPRAM 5 MG TAB PO SCH (08:41)
[2023-01-19] MEDS: SENNOSIDES 8.6 MG TAB PO SCH ×2 (08:41→20:38)
[2023-01-19] MEDS: SPIRONOLACTONE 25 MG TAB PO SCH (08:41)
[2023-01-19] MEDS: metFORMIN 500 MG TAB PO SCH ×2 (08:41→17:26)
[2023-01-19] MEDS: FUROSEMIDE 40 MG TAB PO SCH (08:41)
[2023-01-19] MEDS: PREGABALIN 75 MG CAP PO SCH ×2 (08:41→20:38)
[2023-01-19] MEDS: DAPAGLIFLOZIN PROPANEDIOL 10 MG TABLET PO SCH (08:41)
[2023-01-19] MEDS: TAMSULOSIN 0.4 MG CAP.ER.24H PO SCH (08:41)
[2023-01-19] MEDS: DULoxetine HCL 30 MG CAPSULE.DR PO SCH (08:41)
[2023-01-19 12:17] LABS: Glucose,Whole Blood 115 mg/dL (70-110)
--- NOTE | 2023-01-19 12:28 | P.PN ---
Subjective Progress Note Date: 01/19/23 This is a pleasant 71 years old male with multiple medical problems including COPD, diabetes mellitus, hypertension, hyperlipidemia, osteoarthritis, GERD, diabetic neuropathy, chronic back pain, joint disease and falls He was recently in the hospital for COPD exacerbation and bilateral lower extremity edema and chronic CHF Patient presents because of bilateral patellar leg edema swelling and redness and erythema slowly get worse. He denies dyspnea. No chest pain. No change in urine or bowel habits Denies smoking alcohol or illicit drugs He is on 3 L oxygen at home. He is also on a prednisone 5 mg daily placed by his PCP Dr. Alfredo Vitals are stable Labs showing mild anemia with hemoglobin 10.8, rest of CBC, BMP and liver enzymes are unremarkable. Troponin is negative. Chest x-ray: Findings are consistent with mild pulmonary congestion EKG showing atrial fibrillation with controlled rate at [address]-T changes and QTC 422. 01/01/2023 Patient with bilateral leg swelling and redness but likely secondary to medication effect as well as mild diastolic CHF. I don't think the patient has actual infection or cellulitis. Patient has good urine output on 80 mg by mouth every 8 hours. This was transcribed goes by tiller man Also patient placed on cefazolin by ID team Continue to discontinue Norvasc and prednisone. 01/02/2023 Patient has no new complaint His leg swelling is improving slowly and gradually, both legs are wrapped with Miguel bandage today He remains on IV Lasix 80 mg 3 times a day and cefazolin DC Norvasc and prednisone Is also on the farxiga 01/08/2023 Patient bilateral leg swelling is significantly improved. The suspicion of sigmoid this is low however he kept on Keflex Patient was cleared for discharge by cardiology and pulmonary team as well as infectious disease team He supposed to go to subacute rehab pending placement. Patient will need peer to peer evaluation prior to transfer to rehab for insurance authorization Patient is medically stable for discharge pending placement Patient today is comfortable with no new complaints. Patient eats well, no constipation urine is fine. Patient informed the need to follow-up with vascular surgery Dr. Lara in 1-2 weeks after discharge for lower extremity evaluation and he agrees. Contact information provided for 01/09/2023 Patient lying in bed comfortable going of the bed of the thyroid gland complaining of from chronic leg pain for many months Limits swelling significantly improved. No chest pain or dyspnea. He is on 3 L oxygen at home, we will lower his for a permanent down to 3 days to monitor Patient is a letter with a recommendation for follow-up as an outpatient and he is agreeable to it. Patient is medically stable for discharge pending placement ( will require peer to peer review on tuesday) 01/12/2023 pt is doing well overall ,no new complaint MAPS was checked today and he was on norco 7.5 mg q4hr, he said the norco 5 q8r does not help him so he agrees to increase the dose to qhr risk of 20 coagulation narcotics including but not limited to respiratory depression and are explained for him and he verbalized understanding and acceptance, he agrees to lower the dose to 7.5 mg every 8 hours but he says the 5 mg of Baudette is not helping him. Patient with stable pending prior authorization for placement as well as long term to accept him 01/13/2023 Patient clinically doing well, he is clinically stable. Patient is at baseline. He denies any new complaints for me. No dyspnea. His vitals are stable This complaining from chronic leg pain. MAPS was checked yesterday and his on Baudette 7.5 around every 4 hours. I discussed with him. His medication including risk of respiratory depression and he verbalized understanding however he is adamant to keep it didn't Baudette 7.5. We tried Baudette 5 every 8 hours and did not controlled his pain then increase it to Baudette 7.5 mg every 8 hours however he called later on wanted to be increased, which we did and now he is currently on Baudette 7.5 mg every 6 hours. We will keep close monitoring for him. We re commend outpatient follow-up with pain medicine. I discussed with him the recommendation for outpatient follow-up including PCP, vascular surgery, cardiology services and others and he verbalized understanding and acceptance Patient is medically stable for discharge pending authorization and placement 01/14/2023 Patient was undergoing bilateral leg pain which looks controlled, this ongoing since admission and is chronic and patient is an Baudette 7.5 mg. Pain controlled. Once all the patient today he did not ask for more pain medication. No other new complaints. Labs vitals and imaging reviewed. I discussed the case with director social service, still pending prior authorization If no authorization obtained today revealed to check labs tonight. 01/15/2023 patient clinically the same, with chronic leg pain, no new complaints We checked yesterday lid looks stable. Hemoglobin stable at 11.3, sodium 134, creatinine 0.8. Keflex was already discontinued Remains on Eliquis Patient remains pending prior authorization to go to rehab 01/16/2023 I had several discussions with the patient on several occasions about the risk of narcotics including the risk of respiratory depression and/or , he verbalized understanding, we tried to lower the dose but he kept asking for more Baudette does increase, called this morning he was on Baudette 7.5 mg every 6 hours compared to hose home dose of every 4 hours, however surrounding bedside nurse called me that the patient was his Baudette frequency increased to every 4 hours. Dose frequency was increased upon his request, risks are explained for him extensively. We recommend patient follow up with the pain clinic as an outpatient. However patient states that his been chronically taking Baudette 7.5 mg every 6 hours, explant for the patient states risk still there despite that Prognosis is guarded 01/17. Patient seen and examined. Complaining of shoulder pains. Denies any shortness of breath. Vital signs stable 01/18. Patient laying comfortably in the bed. No acute issues overnight. Currently waiting on insurance authorization for rehab facility 01/19. Patient seen and examined. No acute issues overnight 01/20. Patient seen and examined. Laying comfortably in the bed. Denies any body aches or lethargy. Denies any numbness Denies any chest pain or shortness of breath. Vital signs this morning are temperature 97.6, heart rate 90, respirations 18, blood pressure 143/74 PHYSICAL EXAMINATION: GENERAL: The patient is alert and oriented x3, not in any acute distress. Well developed, well nourished. HEENT: Pupils are round and equally reacting to light. EOMI. No scleral icterus. No conjunctival pallor. Normocephalic, atraumatic. No pharyngeal erythema. No thyromegaly. CARDIOVASCULAR: S1 and S2 present. No murmurs, rubs, or gallops. PULMONARY: Chest is clear to auscultation, no wheezing or crackles. ABDOMEN: Soft, nontender, nondistended, normoactive bowel sounds. No palpable organomegaly. MUSCULOSKELETAL: No joint swelling or deformity. EXTREMITIES: No cyanosis, clubbing, or pedal edema. NEUROLOGICAL: Gross neurological examination did not reveal any focal deficits. SKIN: No rashes. Assessment and plan Acute on chronic diastolic CHF Bilateral pitting leg edema, acute on chronic chronic atrial fibrillation on Eliquis and the rate is controlled Chronic hypoxic respiratory failure with related to her oxygen via nasal cannula Diabetes mellitus Hypertension Hyperlipidemia History of osteoarthritis History of GERD Diabetic neuropathy of feet and hands Chronic back pain Polyarthralgia History of falls History of anxiety and depression, not in activation Obese with BMI 38.5 Plan; Currently On eliquis as well as oral Lasix continue Fraxiga Continue breathing treatments Instructed to follow up for vascular surgery Dr. Lara as an outpatient, n onurgent better. case management on board, currently waiting on insurance authorization for rehab facility Continue current medical management Objective - Vital Signs Vital signs: Vital Signs Temp 97.6 F 01/19/23 07:20 Pulse 90 01/19/23 07:20 Resp 18 01/19/23 07:20 BP 143/74 01/19/23 07:20 Pulse Ox 95 01/19/23 07:20 FiO2 Intake & Output 01/18/23 01/19/23 01/19/23 18:59 06:59 18:59 Intake Total 960 480 Output Total 600 Balance 360 480 Weight 139 kg Intake: Oral 960 480 Output: Urine 600 Other: Voiding Method Toilet Urinal # Voids 3 - Labs CBC & Chem 7: 01/14/23 22:25 01/14/23 22:25 Labs: Abnormal Lab Results - Last 24 Hours (Table) 01/18/23 Range/Units 16:33 POC Glucose (mg/dL) 143 H (70-110) mg/dL
[2023-01-19] MEDS: IPRATROPIUM-ALBUTEROL 3 ML NEB INHALATION PRN ×2 (14:52→20:46)
[2023-01-19 17:09] LABS: Glucose,Whole Blood 111 mg/dL (70-110)
[2023-01-19] MEDS: ATORVASTATIN 40 MG TAB PO SCH (20:38)
[2023-01-19 20:42] LABS: Glucose,Whole Blood 112 mg/dL (70-110)
[2023-01-20] MEDS: MELATONIN 3 MG TABLET PO PRN (02:14)
[2023-01-20] MEDS: HYDROcodone/APAP 7.5-325MG 1 EACH TAB PO PRN ×5 (02:14→19:35)
[2023-01-20] MEDS: metFORMIN 500 MG TAB PO SCH ×2 (05:17→16:58)
[2023-01-20] MEDS: PANTOPRAZOLE 40 MG TABLET PO SCH (05:18)
[2023-01-20 05:45] LABS: Glucose,Whole Blood 107 mg/dL (70-110)
[2023-01-20] MEDS: APIXABAN 5 MG TAB PO SCH ×2 (08:39→19:35)
[2023-01-20] MEDS: DAPAGLIFLOZIN PROPANEDIOL 10 MG TABLET PO SCH (08:40)
[2023-01-20] MEDS: METOPROLOL TARTRATE 50 MG TAB PO SCH ×2 (08:41→19:34)
[2023-01-20] MEDS: PREGABALIN 75 MG CAP PO SCH ×2 (08:41→19:34)
[2023-01-20] MEDS: ESCITALOPRAM 5 MG TAB PO SCH (08:41)
[2023-01-20] MEDS: FUROSEMIDE 40 MG TAB PO SCH (08:41)
[2023-01-20] MEDS: DULoxetine HCL 30 MG CAPSULE.DR PO SCH (08:41)
[2023-01-20] MEDS: TAMSULOSIN 0.4 MG CAP.ER.24H PO SCH (08:42)
[2023-01-20] MEDS: SPIRONOLACTONE 25 MG TAB PO SCH (08:42)
[2023-01-20] MEDS: SENNOSIDES 8.6 MG TAB PO SCH ×2 (08:42→19:35)
[2023-01-20] MEDS: NICOTINE 21MG/24HR PATCH TRANSDERM SCH (08:43)
[2023-01-20] MEDS: ACETAMINOPHEN TAB 325 MG TAB PO PRN (08:49)
[2023-01-20] MEDS: IPRATROPIUM-ALBUTEROL 3 ML NEB INHALATION PRN ×3 (08:51→20:55)
[2023-01-20] MEDS: SYMBICORT 160-4.5 MCG INHALER INHALATION SCH ×2 (08:51→20:55)
[2023-01-20 10:03] LABS: Basophils # (A) 0.11 X 10*3/uL (0.00-0.10); Basophils % (A) 1.3 %; Eosinophils # (A) 0.28 X 10*3/uL (0.04-0.35); Eosinophils % (A) 3.4 %; HCT 36.8 % (39.6-50.0); HGB 11.6 g/dL (13.0-17.0); Immature Grans, Automated 0.9 %; Lymphocytes # (A) 2.63 X 10*3/uL (0.90-5.00); Lymphocytes % (A) 32.2 %; MCH 28.7 pg (27.0-32.0); MCHC 31.5 g/dL (32.0-37.0); MCV 91.1 fL (80.0-97.0); Mean Platelet Volume 10.6 fL (9.5-12.2); Monocytes % (A) 9.8 %; NRBC Per 100 WBC 0 /100 WBCS (0.0-0.0); Neutrophils # (A) 4.27 X 10*3/uL (1.80-7.70); Neutrophils % (A) 52.4 %; Platelet Count 318 X 10*3/uL (140-440); RBC 4.04 X 10*6/uL (4.40-5.60); WBC 8.16 X 10*3/uL (4.50-10.00)
[2023-01-20 10:34] LABS: African American GFR (CKD) 97.9 (60.0-200.0); Albumin 3.5 g/dL (3.8-4.9); Albumin/Globulin Ratio 1.94 (1.60-3.17); Anion Gap 10.9 mmol/L (10.00-18.00); BUN/Creat Ratio 18.44 Ratio (12.00-20.00); Blood Urea Nitrogen 16.6 mg/dL (9.0-27.0); Calcium 9.2 mg/dL (8.7-10.3); Carbon Dioxide 29.1 mmol/L (20.0-27.5); Globulin 1.8 g/dL (1.6-3.3); Non-African American GFR(CKD) 84.4 (60.0-200.0); Potassium 4.1 mmol/L (3.5-5.5); Total Bilirubin 0.6 mg/dL (0.30-1.20); Total Protein 5.3 g/dL (6.2-8.2)
[2023-01-20 11:29] LABS: Glucose,Whole Blood 108 mg/dL (70-110)
[2023-01-20] MEDS: LIDOCAINE 5% PATCH TOPICAL SCH (12:59)
--- NOTE | 2023-01-20 14:40 | P.PN ---
Subjective Progress Note Date: 01/20/23 This is a pleasant 71 years old male with multiple medical problems including COPD, diabetes mellitus, hypertension, hyperlipidemia, osteoarthritis, GERD, diabetic neuropathy, chronic back pain, joint disease and falls He was recently in the hospital for COPD exacerbation and bilateral lower extremity edema and chronic CHF Patient presents because of bilateral patellar leg edema swelling and redness a nd erythema slowly get worse. He denies dyspnea. No chest pain. No change in urine or bowel habits Denies smoking alcohol or illicit drugs He is on 3 L oxygen at home. He is also on a prednisone 5 mg daily placed by his PCP Dr. Alfredo Vitals are stable Labs showing mild anemia with hemoglobin 10.8, rest of CBC, BMP and liver enzymes are unremarkable. Troponin is negative. Chest x-ray: Findings are consistent with mild pulmonary congestion EKG showing atrial fibrillation with controlled rate at [address]-T changes and QTC 422. 01/01/2023 Patient with bilateral leg swelling and redness but likely secondary to medication effect as well as mild diastolic CHF. I don't think the patient has actual infection or cellulitis. Patient has good urine output on 80 mg by mouth every 8 hours. This was transcribed goes by saxophone assembler Also patient placed on cefazolin by ID team Continue to discontinue Norvasc and prednisone. 01/02/2023 Patient has no new complaint His leg swelling is improving slowly and gradually, both legs are wrapped with Mgiuel bandage today He remains on IV Lasix 80 mg 3 times a day and cefazolin DC Norvasc and prednisone Is also on the farxiga 01/03/2023 Patient is seen in follow-up today sleeping although easily arousable being followed by cardiology along with pulmonary and infectious disease. Patient is maintained on IV cefazolin with concerns of cellulitis of bilateral lower extremities. Patient does have chronic venous stasis along with generalized edema and edema is significantly improved. No active drainage noted and will continue IV cefazolin. Patient with chronic COPD as well as chest pain and shortness of breath being evaluated by cardiology and pulmonary recommend to continue with breathing treatments and will continue oral prednisone. Patient continues to endorse poor nail hygiene requesting podiatry to address this. Johanna burnett was consulted and evaluated by podiatry initially and will need outpatient follow-up to perform this is extensive nail care. This was discussed with the patient. Patient to continue on IV Lasix and will follow-up with repeat labs. To discuss further with pulmonary as well as cardiology about discharge planning. 01/04/2023 Patient is seen this morning being followed by pulmonary and cardiology along with infectious disease. Per nursing staff patient lost IV access and difficult to restart and we'll transition to oral. Patient has been diuresed on IV Lasix and will transition to 40 mg daily and also maintained on IV cefazolin with concerns of lower extremity cellulitis and will continue with Keflex. Patient with weakness requiring increased care needs and difficult to help himself perform ADLs is now agreeable to go to rehab for strength and mobility. Case management following working on possible ECF. Patient is currently afebrile denies chest pain or worsening shortness of breath. Patient is chronically maintained on 3 L and is currently maintaining oxygen saturations above 90% on this. We'll continue with breathing treatments as well. 01/06/2023 Patient seen and evaluated sitting up in a chair currently sleeping although arousable. Patient is maintaining on his chronic 3 L of oxygen and being maintained on oral Lasix and breathing treatments. Patient continues on oral Keflex with ID following with concerns of lower extremity cellulitis. Recommend to elevate lower extremities and continue with Miguel wrapping. Patient is afebrile denies chest pain or worsening shortness of breath. Recommend physical therapy daily. Patient is awaiting insurance authorization for rehab. Patient will be going to [facility] on the [address] once authorization is obtained. 01/07/2023 Patient is seen and evaluated in follow-up currently working with physical therapy continues with weakness with PT/OT therapy recommending rehab. Have been awaiting insurance authorization although now was told they are denying and recommending peer to peer review. Contacted insurance company and there is a scheduled review on Tuesday at 3 PM. Patient was admitted with CHF with COPD exacerbation and also lower extremity swelling with concerns of cellulitis. Cardiology and pulmonary were following and patient has transition to oral Lasix and continued on his chronic 3 L via nasal cannula. Patient is receiving treatments. Patient was seen and evaluated by podiatry due to his poorly kept toenails and feet and recommending ID consultation of which infectious disease is following and patient is maintained on oral Keflex and is having significant improvement in the lower extremity. Patient will need outpatient follow-up for vascular surgery services due to his chronic venous stasis changes most likely peripheral vascular disease. Patient with significant weakness would highly recommend physical therapy daily as well as going to rehab for strength and mobility as patient has been having difficulty managing ADLs on his own. Patient is currently afebrile with no reports of worsening shortness of breath or chest pain. Patient is tolerating diet with no reports of nausea or vomiting noted. 01/08/2023 Patient bilateral leg swelling is significantly improved. The suspicion of sigmoid this is low however he kept on Keflex Patient was cleared for discharge by cardiology and pulmonary team as well as infectious disease team He supposed to go to subacute rehab pending placement. Patient will need peer to peer evaluation prior to transfer to rehab for insurance authorization Patient is medically stable for discharge pending placement Patient today is comfortable with no new complaints. Patient eats well, no constipation urine is fine. Patient informed the need to follow-up with vascular surgery Dr. Lara in 1-2 weeks after discharge for lower extremity evaluation and he agrees. Contact information provided for 01/09/2023 Patient lying in bed comfortable going of the bed of the thyroid gland complaining of from chronic leg pain for many months Limits swelling significantly improved. No chest pain or dyspnea. He is on 3 L oxygen at home, we will lower his for a permanent down to 3 days to monitor Patient is a letter with a recommendation for follow-up as an outpatient and he is agreeable to it. Patient is medically stable for discharge pending placement ( will require peer to peer review on tuesday) 01/12/2023 pt is doing well overall ,no new complaint MAPS was checked today and he was on norco 7.5 mg q4hr, he said the norco 5 q8r does not help him so he agrees to increase the dose to qhr risk of 20 coagulation narcotics including but not limited to respiratory depression and are explained for him and he verbalized understanding and acceptance, he agrees to lower the dose to 7.5 mg every 8 hours but he says the 5 mg of Loda is not helping him. Patient with stable pending prior authorization for placement as well as [facility] to accept him 01/13/2023 Patient clinically doing well, he is clinically stable. Patient is at baseline. He denies any new complaints for me. No dyspnea. His vitals are stable This complaining from chronic leg pain. MAPS was checked yesterday and his on Loda 7.5 around every 4 hours. I discussed with him. His medication including risk of respiratory depression and he verbalized understanding however he is adamant to keep it didn't Loda 7.5. We tried Loda 5 every 8 hours and did not controlled his pain then increase it to Loda 7.5 mg every 8 hours however he called later on wanted to be increased, which we did and now he is currently on Loda 7.5 mg every 6 hours. We will keep close monitoring for him. We recommend outpatient follow-up with pain medicine. I discussed with him the recommendation for outpatient follow-up including PCP, vascular surgery, cardiology services and others and he verbalized understanding and acceptance Patient is medically stable for discharge pending authorization and placement 01/14/2023 Patient was undergoing bilateral leg pain which looks controlled, this ongoing since admission and is chronic and patient is an Loda 7.5 mg. Pain controlled. Once all the patient today he did not ask for more pain medication. No other new complaints. Labs vitals and imaging reviewed. I discussed the case with social work administrator, still pending prior authorization If no authorization obtained today revealed to check labs tonight. 01/15/2023 patient clinically the same, with chronic leg pain, no new complaints We checked yesterday lid looks stable. Hemoglobin stable at 11.3, sodium 134, creatinine 0.8. Keflex was already discontinued Remains on Eliquis Patient remains pending prior authorization to go to rehab 01/16/2023 I had several discussions with the patient on several occasions about the risk of narcotics including the risk of respiratory depression and/or , he verbalized understanding, we tried to lower the dose but he kept asking for more Loda does increase, called this morning he was on Loda 7.5 mg every 6 hours compared to hose home dose of every 4 hours, however surrounding bedside nurse called me that the patient was his Loda frequency increased to every 4 hours. Dose frequency was increased upon his request, risks are explained for him extensively. We recommend patient follow up with the pain clinic as an outpatient. However patient states that his been chronically taking Loda 7.5 mg every 6 hours, explant for the patient states risk still there despite that Prognosis is guarded 01/17. Patient seen and examined. Complaining of shoulder pains. Denies any shortness of breath. Vital signs stable 01/18. Patient laying comfortably in the bed. No acute issues overnight. Currently waiting on insurance authorization for rehab facility 01/19. Patient seen and examined. No acute issues overnight 01/20/2023 Patient is seen and evaluated and follow-up currently awaiting insurance authorization that has been denied requesting a peer to peer which has also been denied as patient was modified independent with physical therapy and was noted up and walking and insurance feels he does not meet Medicare guidelines to go to a custodial facility. Patient is currently afebrile with no reports of ch est pain or worsening shortness of breath. Patient is maintained on oral Lasix and has completed a course of antibiotics for bilateral lower leg swelling and cellulitis with infectious disease following. Patient also having some shoulder pain Will add a lidocaine patch and continue with current pain regimen. Lower extremity swelling has improved although continue to have some pain and burning type sensation of the lower extremities. Patient is continued on Lyrica and will continue current regimen at this time. Will discuss further with social work about discharge planning as patient lives alone and feels will have difficulty with performing ADLs. Review of systems: Constitutional: No reports of fatigue, fever, or chills Cardiovascular: No reports of chest pain or palpitations Respiratory: no reports of worsening shortness of breath, feels improved although continues with dyspnea with exertion GI: No reports of nausea, vomiting, or diarrhea : No reports of dysuria or retention Neurovascular: reports of generalized weakness and difficulty walking due to pain and burning sensation in the lower extremities All medications have been reviewed Physical exam: GENERAL: The patient is awake, alert and oriented x3, obese. Well developed, well nourished. HEENT: Pupils are round and equally reacting to light. EOMI. No scleral icterus. No conjunctival pallor. Normocephalic, atraumatic. No pharyngeal erythema. No thyromegaly. CARDIOVASCULAR: S1 and S2 muffled PULMONARY: Breath sounds diminished bilaterally with no wheezing, coarse rhonchi noted ABDOMEN: Soft, nontender, nondistended, normoactive bowel sounds. No palpable organomegaly. MUSCULOSKELETAL: No joint swelling or deformity. EXTREMITIES: No cyanosis, clubbing, bilateral pedal edema improved. Redness and swelling improved bilateral lower extremities NEUROLOGICAL: Gross neurological examination did not reveal any focal deficits. Diffusely weak SKIN: No rashes. no petechiae. Assessment: Acute on chronic diastolic CHF Bilateral pitting leg edema, acute on chronic , improving chronic atrial fibrillation on Eliquis and the rate is controlled Chronic hypoxic respiratory failure, wears 3 L oxygen via nasal cannula outpatient Diabetes mellitus Hypertension Hyperlipidemia History of osteoarthritis History of GERD Diabetic neuropathy of feet and hands Chronic back pain Polyarthralgia History of falls History of anxiety and depression, not in activation Obese with BMI 38.5 GI prophylaxis, DVT prophylaxis No code Plan: Recommend continue current medications and management and was denied insurance authorization to go to [facility]. Social work following will arrange discharge planning with possible Homecare and discuss other options Recommend continue with Miguel wrapping to lower extremities and local wound care. Patient was evaluated initially by podiatry and will need outpatient follow-up for continued nail care on bilateral feet Probable discharge in 24 hours after discussing with social work and discharge planning for a safe discharge The impression and plan of care has been dictated by Ange Becerra, Nurse Practitioner as directed. Dr. Xu MD I have performed a history and examination and MDM of this patient, discussed the same with the dictator, and agree with the dictator's assessment and plan as written ,documented as a scribe. Based on total visit time, I have performed more than 50% of the visit. Objective - Vital Signs Vital signs: Vital Signs Temp 97.6 F 01/20/23 01:43 Pulse 80 01/20/23 09:05 Resp 17 01/20/23 07:00 BP 140/82 01/20/23 07:00 Pulse Ox 96 01/20/23 08:52 FiO2 Intake & Output 01/19/23 01/20/23 01/20/23 18:59 06:59 18:59 Output Total 700 Balance -700 Output: Urine 700 Other: Voiding Method Toilet Toilet Urinal Urinal # Voids 2 - Labs CBC & Chem 7: 01/20/23 05:15 01/20/23 05:15 Labs: Abnormal Lab Results - Last 24 Hours (Table) 01/19/23 01/19/23 01/19/23 Range/Units 12:13 17:07 20:40 RBC (4.40-5.60) X 10*6/uL Hgb (13.0-17.0) g/dL Hct (39.6-50.0) % MCHC (32.0-37.0) g/dL RDW (11.5-14.5) % Immature Gran # (0.00-0.04) X 10*3/uL Basophils # (0.00-0.10) X 10*3/uL Carbon Dioxide (20.0-27.5) mmol/L POC Glucose (mg/dL) 115 H 111 H 112 H (70-110) mg/dL AST (14-35) U/L ALT (10-49) U/L Total Protein (6.2-8.2) g/dL Albumin (3.8-4.9) g/dL 01/20/23 01/20/23 Range/Units 05:15 05:15 RBC 4.04 L (4.40-5.60) X 10*6/uL Hgb 11.6 L (13.0-17.0) g/dL Hct 36.8 L (39.6-50.0) % MCHC 31.5 L (32.0-37.0) g/dL RDW 17.0 H (11.5-14.5) % Immature Gran # 0.07 H (0.00-0.04) X 10*3/uL Basophils # 0.11 H (0.00-0.10) X 10*3/uL Carbon Dioxide 29.1 H (20.0-27.5) mmol/L POC Glucose (mg/dL) (70-110) mg/dL AST 12 L (14-35) U/L ALT 9 L (10-49) U/L Total Protein 5.3 L (6.2-8.2) g/dL Albumin 3.5 L (3.8-4.9) g/dL
[2023-01-20 16:43] LABS: Glucose,Whole Blood 151 mg/dL (70-110)
[2023-01-20] MEDS: ATORVASTATIN 40 MG TAB PO SCH (19:34)
[2023-01-20 20:34] LABS: Glucose,Whole Blood 228 mg/dL (70-110)
[2023-01-21] MEDS: HYDROcodone/APAP 7.5-325MG 1 EACH TAB PO PRN ×4 (02:06→15:04)
[2023-01-21] MEDS: metFORMIN 500 MG TAB PO SCH (05:53)
[2023-01-21] MEDS: PANTOPRAZOLE 40 MG TABLET PO SCH (05:53)
[2023-01-21 06:18] LABS: Glucose,Whole Blood 139 mg/dL (70-110)
[2023-01-21] MEDS: LIDOCAINE 5% PATCH TOPICAL SCH (08:42)
[2023-01-21] MEDS: NICOTINE 21MG/24HR PATCH TRANSDERM SCH (08:43)
[2023-01-21] MEDS: DULoxetine HCL 30 MG CAPSULE.DR PO SCH (08:45)
[2023-01-21] MEDS: ESCITALOPRAM 5 MG TAB PO SCH (08:45)
[2023-01-21] MEDS: FUROSEMIDE 40 MG TAB PO SCH (08:45)
[2023-01-21] MEDS: METOPROLOL TARTRATE 50 MG TAB PO SCH (08:45)
[2023-01-21] MEDS: SPIRONOLACTONE 25 MG TAB PO SCH (08:45)
[2023-01-21] MEDS: TAMSULOSIN 0.4 MG CAP.ER.24H PO SCH (08:45)
[2023-01-21] MEDS: SENNOSIDES 8.6 MG TAB PO SCH (08:45)
[2023-01-21] MEDS: PREGABALIN 75 MG CAP PO SCH (08:46)
[2023-01-21] MEDS: DAPAGLIFLOZIN PROPANEDIOL 10 MG TABLET PO SCH (08:46)
[2023-01-21] MEDS: APIXABAN 5 MG TAB PO SCH (08:53)
[2023-01-21] MEDS: SYMBICORT 160-4.5 MCG INHALER INHALATION SCH (09:05)
[2023-01-21] MEDS: IPRATROPIUM-ALBUTEROL 3 ML NEB INHALATION PRN (09:05)
[2023-01-21 09:32] VITALS: TEMP 98.4
--- NOTE | 2023-01-21 10:00 | XR ---
EXAMINATION TYPE: XR chest 1V portable DATE OF EXAM: 01/21/2023 Comparison: 01/16/2023 Clinical History: 72-year-old male shortness of breath Findings: Heart upper limits of normal in size. Peripheral and basilar medium and coarse reticular opacities ar e redemonstrated. No consolidation or pleural effusion. Mild hyperinflation. Suspect a left basilar n ipple shadow. Impression: COPD with similar superimposed interstitial opacities mid and lower lungs., Possible sequela of CHF o r atypical pneumonias. Nodule at the left base, suspected nipple shadow. Attention on follow-up.
[2023-01-21 11:45] LABS: Glucose,Whole Blood 110 mg/dL (70-110)
[2023-01-21 15:24] VITALS: BP 129/85; PULSE 68; RESP 18
--- NOTE | 2023-01-24 06:36 | P.DS ---
Providers Date of admission: 12/31/22 13:40 Expected date of discharge: 01/21/23 Attending physician: Tigre Geiger MD Consults: 12/31/22 13:31 Consult Physician Routine Consulting Provider: Sajan Haile Consult Reason/Comments: b/l feet swelling Do you want consulting provider notified?: Yes 12/31/22 17:35 Consult Physician Urgent Consulting Provider: Paulo De Anda Consult Reason/Comments: lower extremity redness/swelling Do you want consulting provider notified?: Yes 01/03/23 03:31 Consult Physician Routine Consulting Provider: Calvin Martin Consult Reason/Comments: Increased shortness of breath Do you want consulting provider notified?: Yes [facility] care physician: [facility] Course: Final diagnosis Acute on chronic diastolic CHF Bilateral pitting leg edema, acute on chronic , improving chronic atrial fibrillation on Eliquis and the rate is controlled Chronic hypoxic respiratory failure, wears 3 L oxygen via nasal cannula outpatient Diabetes mellitus Hypertension Hyperlipidemia History of osteoarthritis History of GERD Diabetic neuropathy of feet and hands Chronic back pain Polyarthralgia History of falls History of anxiety and depression, not in activation Obese with BMI 38.5 GI prophylaxis, DVT prophylaxis No code Discharge disposition Patient is being discharged in a stable condition with guarded prognosis to home with home care. Patient will follow-up with Dr. Jackson in the outpatient setting upon discharge. Patient is to follow-up with podiatry along with pulmonary and cardiology outpatient as scheduled. Total time taken is greater than 35 minutes. Hospital course This is a 72-year-old male who was recently admitted with bilateral lower extremity swelling and edema with concerns of cellulitis along with poor self- care of bilateral feet and combination of CHF/COPD exacerbation. Patient with significant noncompliance to medications and follow-up along with continued nicotine abuse was seen and evaluated by cardiology along with pulmonary and infectious disease along with podiatry. Patient did complete course of IV antibiotics along with oral antibiotics for the cellulitis on the lower extremities and also maintained on diuretics and swelling has improved. Patient evaluated by podiatry underwent some cleaning up of the toenails and will need close follow-up for further care. Patient also maintained on IV steroids along with breathing inhalational treatments for a brief period for his COPD exacerbation. Patient chronically wears 3 L outpatient. Patient with overall weakness and dysfunction with difficulties in ADLs initially improved insurance authorization after medical review to [facility] although [facility] then denied the patient and patient along with social work/case management finding other facilities although insurance authorization for the second time was denied. Patient to follow-up with primary care provider to discuss possible long-term care options. Patient has been cleared by consultations. Please refer to other consultation notes for further HPI. Currently no reports of chest pain, shortness of breath, or palpitations. Patient is afebrile. No reports of nausea or vomiting and patient is tolerating diet. Patient will be discharged home today. Guarded prognosis and high risk for readmissions due to patient's noncompliance, significant medical comorbidities, and continued tobacco use Physical exam: Gen: This is a 72-year-old male who is awake, alert and oriented 3, well- developed, well-nourished, morbidly obese HEENT: Head is atraumatic, normocephalic. Pupils equal, round. Sclerae is anicteric. NECK: Supple. No JVD. No lymphadenopathy. No thyromegaly. LUNGS: Breath sounds diminished bilaterally with some scattered rhonchi. No intercostal retractions. HEART: Regular rate and rhythm. No murmur. ABDOMEN: Soft. Bowel sounds are present. No masses. No tenderness. EXTREMITIES: No pedal edema. No calf tenderness. Bilateral lower extremity swelling improved NEUROLOGICAL: Patient is awake, alert and oriented x3. Cranial nerves 2 through 12 are grossly intact. Diffusely weak Please refer to medication reconciliation sheet for a list of medications. The impression and plan of care has been dictated by Ange Becerra, Nurse Practitioner as directed. Dr. Jean Carlos MD I have performed a history and examination and MDM of this patient, discussed the same with the dictator, and agree with the dictator's assessment and plan as written ,documented as a scribe. Based on total visit time, I have performed more than 50% of the visit. Patient Condition at Discharge: Fair Plan - Discharge Summary Discharge Rx Participant: No New Discharge Prescriptions: New Acetaminophen [Tylenol] 325 mg PO Q6H 20 Days tab Dapagliflozin Propanediol [Farxiga] 10 mg PO DAILY #30 tablet HYDROcodone/APAP 7.5-325MG [[place] 7.5-325] 1 each PO Q4HR PRN #12 tab PRN Reason: Pain Budesonide-Formot 160-4.5 Mcg [Symbicort 160-4.5 Mcg Inhaler] 2 puff INHALATION BID #10.2 gm SILVER sulfADIAZINE CREAM [Silvadene Cream] 1 applic TOPICAL DAILY each Lidocaine 5% Patch [Lidoderm 5% Patch] 1 patch TOPICAL DAILY #30 patch Pregabalin [Lyrica] 75 mg PO BID #20 cap Acetaminophen Tab [Tylenol] 650 mg PO Q6HR PRN tab PRN Reason: Fever And/ Or Pain Continue Albuterol Nebulized [Ventolin Nebulized] 2.5 mg INHALATION RT-Q6H PRN PRN Reason: Shortness Of Breath Apixaban [Eliquis] 5 mg PO BID #60 tab Omeprazole 40 mg PO DAILY Escitalopram [Lexapro] 5 mg PO DAILY metFORMIN HCL [Glucophage] 500 mg PO BID tab Spironolactone [Aldactone] 25 mg PO DAILY #30 tab Fluticasone/Vilanterol [Breo Ellipta 100-25 Mcg Inhaler] 1 puff INHALATION RT-DAILY DULoxetine HCL [Cymbalta] 30 mg PO DAILY Umeclidinium [place] [Incruse Ellipta] 1 puff INHALATION RT-DAILY Ipratropium-Albuterol Nebulize [Duoneb 0.5 mg-3 mg/3 ml Soln] 3 ml INHALATION RT-Q6H PRN PRN Reason: Shortness Of Breath Or Wheezing Tamsulosin [Flomax] 0.4 mg PO DAILY Fluticasone Nasal [place] [Flonase Nasal [place]] 1 spray EA NOSTRIL Q12H PRN PRN Reason: nasal drainage Theophylline Anhydrous [Theophylline] 400 mg PO DAILY Albuterol Sulfate [Proair Hfa] 2 puff INHALATION RT-Q6H PRN PRN Reason: Shortness Of Breath Metoprolol Tartrate [Lopressor] 50 mg PO BID tab Nicotine 21Mg/24Hr Patch [Habitrol] 1 patch TRANSDERM DAILY #3 patch Melatonin 6 mg PO HS PRN 10 Days #20 tab PRN Reason: Insomnia Clopidogrel [Plavix] 75 mg PO DAILY Atorvastatin Calcium [Lipitor] 40 mg PO HS Discontinued HYDROcodone/APAP 7.5-325MG [Laurier 7.5-325] 1 tab PO Q4H PRN PRN Reason: Pain predniSONE 5 mg PO DAILY Furosemide [Lasix] 40 mg PO BID #60 tab amLODIPine [Norvasc] 10 mg PO DAILY Potassium Chloride [Klor-Con 10 ER] 10 meq PO DAILY Pregabalin [Lyrica] 75 mg PO BID Discharge Medication List Albuterol Nebulized [Ventolin Nebulized] 2.5 mg INHALATION RT-Q6H PRN 05/08/20 [History] Apixaban [Eliquis] 5 mg PO BID #60 tab 07/08/20 [Rx] Ipratropium-Albuterol Nebulize [Duoneb 0.5 mg-3 mg/3 ml Soln] 3 ml INHALATION RT-Q6H PRN 05/02/21 [History] Tamsulosin [Flomax] 0.4 mg PO DAILY 12/07/21 [History] Albuterol Sulfate [Proair Hfa] 2 puff INHALATION RT-Q6H PRN 02/18/22 [History] Fluticasone Nasal [place] [Flonase Nasal [place]] 1 spray EA NOSTRIL Q12H PRN 02/18/22 [History] Theophylline Anhydrous [Theophylline] 400 mg PO DAILY 02/18/22 [History] Escitalopram [Lexapro] 5 mg PO DAILY 08/29/22 [History] Omeprazole 40 mg PO DAILY 08/29/22 [History] Metoprolol Tartrate [Lopressor] 50 mg PO BID tab 09/07/22 [Rx] metFORMIN HCL [Glucophage] 500 mg PO BID tab 09/07/22 [Rx] Melatonin 6 mg PO HS PRN 10 Days #20 tab 11/29/22 [Rx] Nicotine 21Mg/24Hr Patch [Habitrol] 1 patch TRANSDERM DAILY #3 patch 11/29/22 [Rx] Spironolactone [Aldactone] 25 mg PO DAILY #30 tab 11/29/22 [Rx] Atorvastatin Calcium [Lipitor] 40 mg PO HS 12/31/22 [History] Clopidogrel [Plavix] 75 mg PO DAILY 12/31/22 [History] DULoxetine HCL [Cymbalta] 30 mg PO DAILY 12/31/22 [History] Fluticasone/Vilanterol [Breo Ellipta 100-25 Mcg Inhaler] 1 puff INHALATION RT- DAILY 12/31/22 [History] Umeclidinium [place] [Incruse Ellipta] 1 puff INHALATION RT-DAILY 12/31/22 [History] SILVER sulfADIAZINE CREAM [Silvadene Cream] 1 applic TOPICAL DAILY each 01/05/23 [Rx] Acetaminophen [Tylenol] 325 mg PO Q6H 20 Days tab 01/11/23 [Rx] Acetaminophen Tab [Tylenol] 650 mg PO Q6HR PRN tab 01/21/23 [Rx] Budesonide-Formot 160-4.5 Mcg [Symbicort 160-4.5 Mcg Inhaler] 2 puff INHALATION BID #10.2 gm 01/21/23 [Rx] Dapagliflozin Propanediol [Farxiga] 10 mg PO DAILY #30 tablet 01/21/23 [Rx] HYDROcodone/APAP 7.5-325MG [[place] 7.5-325] 1 each PO Q4HR PRN #12 tab 01/21/23 [Rx] Lidocaine 5% Patch [Lidoderm 5% Patch] 1 patch TOPICAL DAILY #30 patch 01/21/23 [Rx] Pregabalin [Lyrica] 75 mg PO BID #20 cap 01/21/23 [Rx] Follow up Appointment(s)/Referral(s): Lucille Daniels MD [STAFF PHYSICIAN] - 02/04/23 8:30 am Sajan Haile DPM [STAFF PHYSICIAN] - 01/27/23 1:15 pm Selena Lara DO [STAFF PHYSICIAN] - 2 Weeks (vascular surgeon. Office closed Tuesday. Please call office Tuesday for your appointment.) Nicolette Monk MD [STAFF PHYSICIAN] - 2 Weeks (pain management services. Please ask your PCP to refer you to pain management services. Thank you.) [facility], [NON-STAFF] - [facility] [NON-STAFF] - Elver Jackson MD [Primary Care Provider] - 1-2 days (Office closed. Please call for appointment.) Patient Instructions/Handouts: Pulmonary Edema (DC), Cellulitis (GEN) Activity/Diet/Wound Care/Special Instructions: Activity as tolerated Continue current medications as prescribed Continue to use Miguel wraps to lower his extremities and wound care and elevate while at rest Continue breathing treatments and supplement oxygen and follow-up pulmonary outpatient Patient needs podiatry outpatient in 1-2 weeks Follow-up with primary care provider on discharge Discharge/Stand Alone Forms: Who Do I Call?, Community Resources, Personal Shrimp Header Discharge Disposition: HOME WITH HOME HEALTH SERVICES
--- NOTE | 2023-01-24 14:57 | CDI ---
Documentation Clarification Form Date: 01/24/2023 2:40:02 PM From: Debbie Soto Phone: Admit Date: 12/31/2022 1:40:00 PM Patient Name: Olegario Villela Visit Number: [id number] Discharge Date: 01/21/2023 4:02:00 PM ATTENTION: The Clinical Documentation Specialists (CDI) and [facility] Coding Staff appreciate your assistance in clarifying documentation. Please respond to the clarification below the line at the bottom and electronically sign. The CDI & [facility] Coding staff will review the response and follow-up if needed. Please note: Queries are made part of the Legal Health Record. If you have any questions, please contact the author of this message via ITS. Dr. Tanvi Evangelista Cellulitis is documented per H&P and throughout the notes. Additional clarification regarding the type of cellulitis is requested. History/risk factors: 72yo M, ACCHF, A/C BLEpittingedema, A Fib ,CH/HRF on O2, DMII w PVD & neuropathy, HTN, HLD, OA, GERD, CBO, Hx falls, polyarthralgia,anxiety, depression, obesewithBMI 38.5, poor self- care, smoker, noncomplianceto medicationsandfollow-up Clinical Indicators: There is no digital hair extremities are warm to warm bilateral withpossiblesome increase in temperature distally consistent with cellulitis Treatment: Patient did complete course of IV antibiotics along with oral antibiotics for thecellulitison the lower extremities and also maintained on diuretics andswellinghas improved. Please clarify the type of cellulitis, if known: [x ] Diabetic cellulitis [ ] Chronic Cellulitis [ ] Other, please specify: [ ] Unable to determine (Template Last Revised: September 2022) MTDD
== END 2023-01-21 16:02 | disposition home health service (06) | DRG 291 ==
LOC: EC 10:59 → 3SCARD 13:40 → 4SSUR 01-09 14:25
PROVIDERS: ADMIT Internal Medicine; ATTEND Internal Medicine
DX: I11.0 Hypertensive heart disease with heart failure (principal); I50.43 Acute on chronic combined systolic (congestive) and diastolic (congestive) heart failure; I48.20 Chronic atrial fibrillation, unspecified; J96.12 Chronic respiratory failure with hypercapnia; J96.11 Chronic respiratory failure with hypoxia; L03.115 Cellulitis of right lower limb; L03.116 Cellulitis of left lower limb; L97.821 Non-pressure chronic ulcer of other part of left lower leg limited to breakdown of skin; L97.811 Non-pressure chronic ulcer of other part of right lower leg limited to breakdown of skin; I83.018 Varicose veins of right lower extremity with ulcer other part of lower leg; I83.028 Varicose veins of left lower extremity with ulcer other part of lower leg; E11.42 Type 2 diabetes mellitus with diabetic polyneuropathy; E11.51 Type 2 diabetes mellitus with diabetic peripheral angiopathy without gangrene; E11.628 Type 2 diabetes mellitus with other skin complications; B35.1 Tinea unguium; J44.9 Chronic obstructive pulmonary disease, unspecified; F32.A Depression, unspecified; E66.01 Morbid (severe) obesity due to excess calories; F10.11 Alcohol abuse, in remission; Z66 Do not resuscitate; I87.2 Venous insufficiency (chronic) (peripheral); T50.916A Underdosing of multiple unspecified drugs, medicaments and biological substances, initial encounter; S90.414A Abrasion, right lesser toe(s), initial encounter; F17.210 Nicotine dependence, cigarettes, uncomplicated; G89.29 Other chronic pain; E78.5 Hyperlipidemia, unspecified; K46.9 Unspecified abdominal hernia without obstruction or gangrene; K21.9 Gastro-esophageal reflux disease without esophagitis; M15.9 Polyosteoarthritis, unspecified; F41.9 Anxiety disorder, unspecified; M54.9 Dorsalgia, unspecified; I87.8 Other specified disorders of veins; Z74.1 Need for assistance with personal care; Z99.81 Dependence on supplemental oxygen; Z79.01 Long term (current) use of anticoagulants; Z68.38 Body mass index [BMI] 38.0-38.9, adult; Z91.148 Patient's other noncompliance with medication regimen for other reason; Z91.199 Patient's noncompliance with other medical treatment and regimen due to unspecified reason; Z88.0 Allergy status to penicillin; Z88.1 Allergy status to other antibiotic agents; Z88.8 Allergy status to other drugs, medicaments and biological substances; Z79.899 Other long term (current) drug therapy; Z79.84 Long term (current) use of oral hypoglycemic drugs; Z79.02 Long term (current) use of antithrombotics/antiplatelets; Z79.51 Long term (current) use of inhaled steroids; Z79.52 Long term (current) use of systemic steroids; Z91.81 History of falling; Z82.49 Family history of ischemic heart disease and other diseases of the circulatory system
CPT/HCPCS: 36415; 71045; 71046; 80048; 80053; 83735; 83880; 84484; 85025; 85610; 85730; 86140; 93005; 93306; 93923; 93970; 94640; 94760; 96374; 99285

== ENCOUNTER 2023-02-11 12:06 | Emergency (ER) | payer MEDICARE, OTHER ==
--- NOTE | 2023-02-11 12:22 | ED ---
Weakness HPI - General Stated complaint: CHF Time Seen by Provider: 02/11/23 12:08 Source: RN notes reviewed, old records reviewed Limitations: no limitations - History of Present Illness Initial comments: This is a 72-year-old male to the emergency department today today. Patient resents today for evaluation regards to weakness persistent weakness states that he feels weak. Patient was sent the emergency department from home health nurse for evaluation. Patient is unable to describe history is a poor historian, feels improved here in the ER, story obtained from chart MD Complaint: generalized weakness -: unknown Location: generalized Severity: moderate Severity scale (1-10): 5 Consistency: constant Improves with: none Worsens with: none Context: history of similar Associated Symptoms: denies other symptoms - Related Data Home Medications Medication Instructions Recorded Confirmed Albuterol Nebulized [Ventolin 2.5 mg INHALATION RT-Q6H PRN 05/08/20 02/11/23 Nebulized] Ipratropium-Albuterol Nebulize 3 ml INHALATION RT-Q6H PRN 05/02/21 02/11/23 [Duoneb 0.5 mg-3 mg/3 ml Soln] Tamsulosin [Flomax] 0.4 mg PO DAILY 12/07/21 02/11/23 Albuterol Sulfate [Proair Hfa] 2 puff INHALATION RT-Q6H PRN 02/18/22 02/11/23 Fluticasone Nasal [place] [Flonase 1 spray EA NOSTRIL Q12H PRN 02/18/22 02/11/23 Nasal [place]] Theophylline Anhydrous 400 mg PO DAILY 02/18/22 02/11/23 [Theophylline] Escitalopram [Lexapro] 5 mg PO DAILY 08/29/22 02/11/23 Omeprazole 40 mg PO DAILY 08/29/22 02/11/23 Atorvastatin Calcium [Lipitor] 40 mg PO HS 12/31/22 02/11/23 Clopidogrel [Plavix] 75 mg PO DAILY 12/31/22 02/11/23 DULoxetine HCL [Cymbalta] 30 mg PO DAILY 12/31/22 02/11/23 Fluticasone/Vilanterol [Breo 1 puff INHALATION RT-DAILY 12/31/22 02/11/23 Ellipta 100-25 Mcg Inhaler] Umeclidinium [place] [Incruse 1 puff INHALATION RT-DAILY 12/31/22 02/11/23 Ellipta] Acetaminophen [Tylenol] 325 mg PO Q6H 02/11/23 02/11/23 Budesonide-Formot 160-4.5 Mcg 2 puff INHALATION RT-BID 02/11/23 02/11/23 [Symbicort 160-4.5 Mcg Inhaler] HYDROcodone/APAP 7.5-325MG [[place] 1 tab PO Q4HR PRN 02/11/23 02/11/23 7.5-325] Previous Rx's Medication Instructions Recorded Apixaban [Eliquis] 5 mg PO BID #60 tab 07/08/20 Metoprolol Tartrate [Lopressor] 50 mg PO BID tab 09/07/22 metFORMIN HCL [Glucophage] 500 mg PO BID tab 09/07/22 Melatonin 6 mg PO HS PRN 10 Days #20 tab 11/29/22 Nicotine 21Mg/24Hr Patch [Habitrol] 1 patch TRANSDERM DAILY #3 patch 11/29/22 Spironolactone [Aldactone] 25 mg PO DAILY #30 tab 11/29/22 Acetaminophen Tab [Tylenol] 650 mg PO Q6HR PRN tab 01/21/23 Dapagliflozin Propanediol [Farxiga] 10 mg PO DAILY #30 tablet 01/21/23 Pregabalin [Lyrica] 75 mg PO BID #20 cap 01/21/23 Allergies Allergy/AdvReac Type Severity Reaction Status Date / Time ANJU Inhibitors Allergy Unknown - Verified 02/11/23 13:26 [facility] Allergy Anaphylaxis Verified 02/11/23 13:26 Penicillins Allergy Anaphylaxis, Verified 02/11/23 13:26 Seizure Review of Systems ROS Statement: Those systems with pertinent positive or pertinent negative responses have been documented in the HPI. ROS Other: All systems not noted in ROS Statement are negative. Past Medical History Past Medical History: Atrial Fibrillation, Asthma, COPD, Diabetes Mellitus, GERD/Reflux, Hyperlipidemia, Hypertension, Osteoarthritis (OA), Pneumonia Additional Past Medical History / Comment(s): Afib RVR, home oxygen prn, bronchitis, pt states he is on metformin to prevent becoming diabetic, neuropathy bilateral feet/L hand, chronic pain back,/bilateral hips/knees/elbows and shoulders, L heel pain, FALLS, cataracts. 11/23/22 ex-spouse phylicia Waterman reports history is accurate to her knowledge. current adominal hernia noted History of Any Multi-Drug Resistant Organisms: None Reported Past Surgical History: Appendectomy Additional Past Surgical History / Comment(s): Colonoscopy. 11/23/22 ex-spouse phylicia Waterman reports history is accurate to her knowledge. Past Anesthesia/Blood Transfusion Reactions: No Reported Reaction Past Psychological History: Unable to Obtain, Anxiety, Depression Additional Psychological History / Comment(s): 11/23/22 ex-spouse phylicia Waterman reports history is accurate to her knowledge. Smoking Status: Current every day smoker Past Alcohol Use History: None Reported Additional Past Alcohol Use History / Comment(s): Pt started smoking in 1969 and smokes 2 ppd or a little more. He states he has hx of ETOH abuse but has not drank in a few years. Past Drug Use History: None Reported Additional Drug Use History / Comment(s): Patient reports being a heavy marijua na smoker in the 1969" - Past Family History Father Family Medical History: Congestive Heart Failure (CHF), COPD Additional Family Medical History / Comment(s): Father was an alcoholic but was able to quit drinking Mother Family Medical History: Congestive Heart Failure (CHF), COPD Additional Family Medical History / Comment(s): Mother was an alcoholic. Daughter(s) Additional Family Medical History / Comment(s): Liver cancer General Exam General appearance: alert, in no apparent distress Head exam: Present: atraumatic, normocephalic, normal inspection Eye exam: Present: normal appearance, PERRL, EOMI. Absent: scleral icterus, conjunctival injection, periorbital swelling ENT exam: Present: normal exam, mucous membranes moist Neck exam: Present: normal inspection. Absent: tenderness, meningismus, lymphadenopathy Respiratory exam: Present: normal lung sounds bilaterally. Absent: respiratory distress, wheezes, rales, rhonchi, stridor Cardiovascular Exam: Present: regular rate, normal rhythm, normal heart sounds. Absent: systolic murmur, diastolic murmur, rubs, gallop, clicks GI/Abdominal exam: Present: soft, normal bowel sounds. Absent: distended, tenderness, guarding, rebound, rigid Extremities exam: Present: normal inspection, full ROM, normal capillary refill. Absent: tenderness, pedal edema, joint swelling, calf tenderness Back exam: Present: normal inspection Neurological exam: Present: alert, oriented X3, CN II-XII intact Psychiatric exam: Present: normal affect, normal mood Skin exam: Present: warm, dry, intact, normal color. Absent: rash Course Vital Signs 02/11/23 02/11/23 02/11/23 12:18 13:57 15:14 Temperature 97.7 F Pulse Rate 72 84 82 Respiratory 22 18 18 Rate Blood Pressure 133/89 146/75 136/81 O2 Sat by Pulse 98 96 96 Oximetry - Reevaluation(s) Reevaluation #1: 02/11/23 21:11 Medical records reviewed Reevaluation #2: 02/11/23 21:11 Patient relatively asymptomatic difficult. Provide history Reevaluation #3: 02/11/23 21:11 Patient informed results questions answered Reevaluation #4: 02/11/23 21:11 Was pt. sent in by a medical professional or institution? @ -no Did you speak to anyone other than the patient for history? @ -no Did you review nursing and triage notes? @ -agree Were old charts reviewed? @ -no Differential Diagnosis? @ -prior EKG interpreted by me (3pts min.)? @ -yes X-rays interpreted by me (1pt min.)? @ -yes CT interpreted by me (1pt min.)? @ -no U/S interpreted by me (1pt. min.)? @ -no What testing was considered but not performed? (CT, X-rays, U/S, labs)? Why? @ -no What meds were considered but not given? Why? @ -no Did you discuss the management of the patient with other professionals? @ -no Did you reconcile home meds? @ -no Was smoking cessation discussed for >3mins.? @ -no Was critical care preformed (if so, how long)? @ -no Were there social determinants of health that impacted care today? How? (Homelessness, low income, unemployed, alcoholism, drug addiction, transportation, low edu. Level, literacy, decrease access to med. care, penitentiary, rehab)? @ -no Was there de-escalation of care discussed even if they declined? (Discuss DNR or withdrawal of care, Hospice)? @ -no What co-morbidities impacted this encounter? (DM, HTN, Smoking, COPD, CAD, Cancer, CVA, Hep., AIDS, mental health diagnosis, sleep apnea, morbid obesity)? @ -none Was patient admitted / discharged? @ -72 male to the emergency department for evaluation of unknown complaints, patient's poor historian and be weakening improved here in the ER no acute distress of anxiety is normal and can be discharged home Discharged Undiagnosed new problem with uncertain prognosis? @ -no Drug Therapy requiring intensive monitoring for toxicity (Heparin, Nitro, Insulin, Cardizem)? @ -no Were any procedures done? @ -no Diagnosis/symptom? @ -Weakness Acute, or Chronic, or Acute on Chronic? @ -no Uncomplicated (without systemic symptoms) or Complicated (systemic symptoms)? @ -uncomplicated Side effects of treatment? @ -no Exacerbation, Progression, or Severe Exacerbation] @ -no Poses a threat to life or bodily function? @ -Yes secondary to extreme to age and comorbid conditions Reevaluation #5: Differential Weakness: Hypoglycemia, shock, sepsis, hyponatremia, anemia, infection, CT, ETOH, adverse medicine reaction, overdose, stroke, this is not meant to be an all-inclusive list. EKG Findings - EKG Comments: EKG Findings:: EKG is A. fib 79 QRS 150 QTC 446 - EKG Results: EKG: interpreted by ERMD - Dysrhythmias: Sinus rhythms and dysrhythmias: sinus tachycardia (Rhythm strip Pre Hospital shows possible V. tach versus flutter waves) Medical Decision Making - Medical Decision Making 72 male to the emergency department for evaluation of weakness, patient's found to have bilateral conjunctivitis here in the ER treated appropriately patient otherwise has normal testing and can be discharged home - Lab Data Result diagrams: 02/11/23 12:25 02/11/23 12:25 Lab Results 02/11/23 02/11/23 02/11/23 Range/Units 12:25 12:25 12:25 WBC 7.8 (3.8-10.6) k/uL RBC 4.55 (4.30-5.90) m/uL Hgb 13.1 (13.0-17.5) gm/dL Hct 40.6 (39.0-53.0) % MCV 89.1 (80.0-100.0) fL MCH 28.7 (25.0-35.0) pg MCHC 32.2 (31.0-37.0) g/dL RDW 16.9 H (11.5-15.5) % Plt Count 287 (150-450) k/uL MPV 7.5 Neutrophils % 65 % Lymphocytes % 22 % Monocytes % 7 % Eosinophils % 5 % Basophils % 0 % Neutrophils # 5.1 (1.3-7.7) k/uL Lymphocytes # 1.7 (1.0-4.8) k/uL Monocytes # 0.5 (0-1.0) k/uL Eosinophils # 0.4 (0-0.7) k/uL Basophils # 0.0 (0-0.2) k/uL Anisocytosis Slight PT 10.0 (9.0-12.0) sec INR 0.9 (<1.2) APTT 19.8 L (22.0-30.0) sec Sodium 136 L (137-145) mmol/L Potassium 4.1 (3.5-5.1) mmol/L Chloride 97 L (98-107) mmol/L Carbon Dioxide 31 H (22-30) mmol/L Anion Gap 8 mmol/L BUN 9 (9-20) mg/dL Creatinine 0.64 L (0.66-1.25) mg/dL Est GFR (CKD-EPI)AfAm >90 (>60 ml/min/1.73 sqM) Est GFR (CKD-EPI)NonAf >90 (>60 ml/min/1.73 sqM) Glucose 81 (74-99) mg/dL Plasma Lactic Acid Wes (0.7-2.0) mmol/L Calcium 9.3 (8.4-10.2) mg/dL Phosphorus 4.8 H (2.5-4.5) mg/dL Magnesium 1.9 (1.6-2.3) mg/dL Total Bilirubin 1.2 (0.2-1.3) mg/dL AST 26 (17-59) U/L ALT 13 (4-49) U/L Alkaline Phosphatase 64 (38-126) U/L Troponin I (0.000-0.034) ng/mL NT-Pro-B Natriuret Pep pg/mL Total Protein 6.0 L (6.3-8.2) g/dL Albumin 3.5 (3.5-5.0) g/dL TSH 0.870 (0.465-4.680) mIU/L Salicylates <1.0 mg/dL Acetaminophen <10.0 ug/mL 02/11/23 02/11/23 02/11/23 Range/Units 12:25 12:25 12:25 WBC (3.8-10.6) k/uL RBC (4.30-5.90) m/uL Hgb (13.0-17.5) gm/dL Hct (39.0-53.0) % MCV (80.0-100.0) fL MCH (25.0-35.0) pg MCHC (31.0-37.0) g/dL RDW (11.5-15.5) % Plt Count (150-450) k/uL MPV Neutrophils % % Lymphocytes % % Monocytes % % Eosinophils % % Basophils % % Neutrophils # (1.3-7.7) k/uL Lymphocytes # (1.0-4.8) k/uL Monocytes # (0-1.0) k/uL Eosinophils # (0-0.7) k/uL Basophils # (0-0.2) k/uL Anisocytosis PT (9.0-12.0) sec INR (<1.2) APTT (22.0-30.0) sec Sodium (137-145) mmol/L Potassium (3.5-5.1) mmol/L Chloride (98-107) mmol/L Carbon Dioxide (22-30) mmol/L Anion Gap mmol/L BUN (9-20) mg/dL Creatinine (0.66-1.25) mg/dL Est GFR (CKD-EPI)AfAm (>60 ml/min/1.73 sqM) Est GFR (CKD-EPI)NonAf (>60 ml/min/1.73 sqM) Glucose (74-99) mg/dL Plasma Lactic Acid Wes 1.2 (0.7-2.0) mmol/L Calcium (8.4-10.2) mg/dL Phosphorus (2.5-4.5) mg/dL Magnesium (1.6-2.3) mg/dL Total Bilirubin (0.2-1.3) mg/dL AST (17-59) U/L ALT (4-49) U/L Alkaline Phosphatase (38-126) U/L Troponin I <0.012 (0.000-0.034) ng/mL NT-Pro-B Natriuret Pep 463 pg/mL Total Protein (6.3-8.2) g/dL Albumin (3.5-5.0) g/dL TSH (0.465-4.680) mIU/L Salicylates mg/dL Acetaminophen ug/mL - EKG Data -: EKG Interpreted by Me - Radiology Data Radiology results: report reviewed (Chest x-rays negative for acute disease), image reviewed Disposition Clinical Impression: Weakness, Bilateral conjunctivitis Disposition: HOME SELF-CARE Condition: Fair Instructions (If sedation given, give patient instructions): Weakness (ED) Is patient prescribed a controlled substance at d/c from ED?: No Referrals: Elver Jackson MD [Primary Care Provider] - 1-2 days Time of Disposition: 14:15
[2023-02-11 12:24] VITALS: TEMP 97.7
--- NOTE | 2023-02-11 12:59 | XR ---
EXAMINATION TYPE: XR chest 1V portable DATE OF EXAM: 02/11/2023 COMPARISON: Chest x-ray January 21, 2023 HISTORY: CHF and shortness of breath TECHNIQUE: Single frontal view of the chest is obtained. FINDINGS: Background chronic parenchymal fibrotic changes are redemonstrated. There is no suspicious new focal air space opacity, pleural effusion, or pneumothorax seen. The cardiac silhouette size is stable and upper limits of normal. The osseous structures are intact. IMPRESSION: Chronic changes without acute pulmonary process.
[2023-02-11 13:37] LABS: Anisocytosis Slight; Basophils % (A) 0 %; Eosinophils # (A) 0.4 k/uL (0-0.7); Eosinophils % (A) 5 %; HCT 40.6 % (39.0-53.0); HGB 13.1 gm/dL (13.0-17.5); Lymphocytes # (A) 1.7 k/uL (1.0-4.8); Lymphocytes % (A) 22 %; MCH 28.7 pg (25.0-35.0); MCHC 32.2 g/dL (31.0-37.0); MCV 89.1 fL (80.0-100.0); Mean Platelet Volume 7.5; Monocytes # (A) 0.5 k/uL (0-1.0); Monocytes % (A) 7 %; Neutrophils # (A) 5.1 k/uL (1.3-7.7); Neutrophils % (A) 65 %; Platelet Count 287 k/uL (150-450); RBC 4.55 m/uL (4.30-5.90); RDW 16.9 % (11.5-15.5); WBC 7.8 k/uL (3.8-10.6)
[2023-02-11 13:49] LABS: ALT 13 U/L (4-49); AST 26 U/L (17-59); Acetaminophen <10.0 ug/mL; African American GFR (CKD) >90 (>60 ml/min/1.73 sqM); Albumin 3.5 g/dL (3.5-5.0); Alkaline Phosphatase 64 U/L (38-126); Anion Gap 8 mmol/L; Blood Urea Nitrogen 9 mg/dL (9-20); Calcium 9.3 mg/dL (8.4-10.2); Carbon Dioxide 31 mmol/L (22-30); Chloride 97 mmol/L (98-107); Glucose 81 mg/dL (74-99); INR 0.9 (<1.2); Magnesium 1.9 mg/dL (1.6-2.3); Non-African American GFR(CKD) >90 (>60 ml/min/1.73 sqM); Phosphorus 4.8 mg/dL (2.5-4.5); Potassium 4.1 mmol/L (3.5-5.1); Salicylate <1.0 mg/dL; Sodium 136 mmol/L (137-145); Total Bilirubin 1.2 mg/dL (0.2-1.3)
[2023-02-11 13:58] VITALS: RESP 18
[2023-02-11 14:22] LABS: Partial Thromboplastin Time 19.8 sec (22.0-30.0)
[2023-02-11] MEDS ORDERED: POLYMYXIN B-TRIMETHOPRIM SULF (10,000-1) OPHTH DROPS 10 ML BTL BOTH EYES STA (14:22)
[2023-02-11 15:15] VITALS: BP 136/81; PULSE 82
== END 2023-02-11 15:58 | disposition home or self-care (01) ==
LOC: EC 12:06
DX: R53.1 Weakness (principal); H10.9 Unspecified conjunctivitis; I48.91 Unspecified atrial fibrillation; J44.9 Chronic obstructive pulmonary disease, unspecified; E11.9 Type 2 diabetes mellitus without complications; K21.9 Gastro-esophageal reflux disease without esophagitis; E78.5 Hyperlipidemia, unspecified; I10 Essential (primary) hypertension; M19.90 Unspecified osteoarthritis, unspecified site; F41.9 Anxiety disorder, unspecified; F12.90 Cannabis use, unspecified, uncomplicated; F32.A Depression, unspecified; F17.210 Nicotine dependence, cigarettes, uncomplicated; Z79.02 Long term (current) use of antithrombotics/antiplatelets; Z79.51 Long term (current) use of inhaled steroids; Z88.0 Allergy status to penicillin; Z79.1 Long term (current) use of non-steroidal anti-inflammatories (NSAID); Z79.899 Other long term (current) drug therapy; Z88.8 Allergy status to other drugs, medicaments and biological substances
CPT/HCPCS: 36415; 71045; 80053; 80143; 80179; 83605; 83735; 83880; 84100; 84443; 84484; 85025; 85610; 85730; 93005; 99285

== ENCOUNTER 2023-04-25 15:57 | Inpatient (IN) | payer MEDICARE, OTHER ==
[2023-04-25] MEDS ORDERED: IPRATROPIUM-ALBUTEROL 3 ML NEB INHALATION STA ×2 (16:21→19:38)
--- NOTE | 2023-04-25 16:58 | XR ---
EXAMINATION TYPE: XR chest 1V portable DATE OF EXAM: 04/25/2023 4:50 PM COMPARISON: Chest radiographs from 02/11/2023 TECHNIQUE: XR chest 1V portable Frontal view of the chest. CLINICAL INDICATION:Male, 72 years old with history of sob; FINDINGS: Lungs/Pleura: There is no evidence of pleural effusion, focal consolidation, or pneumothorax. Pulmonary vascularity: Pulmonary vascular congestion. Heart/mediastinum: Cardiomediastinal silhouette is enlarged and stable. Musculoskeletal: No acute osseous pathology. IMPRESSION: Cardiomegaly, pulmonary vascular congestion and bilateral pleural effusions. Correlate with BNP for c ongestive heart failure.
[2023-04-25] MEDS ORDERED: MORPHINE SULFATE 4 MG/ML SYRINGE IVP STA (17:05)
--- NOTE | 2023-04-25 17:05 | ED ---
SOB HPI - General Chief Complaint: Shortness of Breath Stated Complaint: SAMIR Time Seen by Provider: 04/25/23 16:11 Source: patient, EMS, RN notes reviewed, old records reviewed Mode of arrival: EMS Limitations: no limitations - History of Present Illness Initial Comments: This is a 72-year-old male. He presents today for evaluation of shortness of breath severe with coughing fits. Persistent coughing symptoms here in the ER. Patient cannot catch his breath especially during attacker fit of coughing. Patient does have a trip fibrillation is in atrial fibrillation with changing heart rate. Patient does significantly have a heart rate difficult in the 120s 130s especially during coughing. Patient symptoms have been worse for a few days but significantly worse the last 2 days was unable to sleep last night. MD Complaint: shortness of breath, cough, chest pain, "asthma attack", anxiety -: days(s) Severity: severe Severity scale (1-10): 9 Consistency: constant Improves With: nothing Known History Of: COPD, asthma, congestive heart failure, recurrent pneumonia Context: recent URI, anxiety, recent illness Associated Symptoms: chest pain, cough, sputum production, orthopnea Treatments Prior to Arrival: none - Related Data Home Medications Medication Instructions Recorded Confirmed Albuterol Nebulized [Ventolin 2.5 mg INHALATION RT-Q6H PRN 05/08/20 04/25/23 Nebulized] Ipratropium-Albuterol Nebulize 3 ml INHALATION RT-Q6H PRN 05/02/21 04/25/23 [Duoneb 0.5 mg-3 mg/3 ml Soln] Tamsulosin [Flomax] 0.4 mg PO DAILY 12/07/21 04/25/23 Albuterol Sulfate [Proair Hfa] 2 puff INHALATION RT-Q6H PRN 02/18/22 04/25/23 Fluticasone Nasal [place] [Flonase 1 spr EA NOSTRIL Q12H PRN 02/18/22 04/25/23 Nasal [place]] Theophylline Anhydrous 400 mg PO DAILY 02/18/22 04/25/23 [Theophylline] Escitalopram [Lexapro] 5 mg PO DAILY 08/29/22 04/25/23 Omeprazole 40 mg PO DAILY 08/29/22 04/25/23 Atorvastatin Calcium [Lipitor] 40 mg PO HS 12/31/22 04/25/23 DULoxetine HCL [Cymbalta] 30 mg PO DAILY 12/31/22 04/25/23 Fluticasone/Vilanterol [Breo 1 puff INHALATION RT-DAILY 12/31/22 04/25/23 Ellipta 100-25 Mcg Inhaler] Budesonide-Formot 160-4.5 Mcg 2 puff INHALATION RT-BID 02/11/23 04/25/23 [Symbicort 160-4.5 Mcg Inhaler] Nicotine 21Mg/24Hr Patch [Habitrol] 1 patch TRANSDERM DAILY PRN 04/25/23 04/25/23 Potassium Chloride ER [K-Dur 10] 10 meq PO DAILY 04/25/23 04/25/23 amLODIPine [Norvasc] 10 mg PO DAILY 04/25/23 04/25/23 hydrALAZINE HCL [Apresoline] 25 mg PO BID 04/25/23 04/25/23 predniSONE 5 mg PO DAILY 04/25/23 04/25/23 Previous Rx's Medication Instructions Recorded Apixaban [Eliquis] 5 mg PO BID #60 tab 07/08/20 Metoprolol Tartrate [Lopressor] 50 mg PO BID tab 09/07/22 metFORMIN HCL [Glucophage] 500 mg PO BID tab 09/07/22 Melatonin 6 mg PO HS PRN 10 Days #20 tab 11/29/22 Spironolactone [Aldactone] 25 mg PO DAILY #30 tab 11/29/22 Acetaminophen Tab [Tylenol] 650 mg PO Q6HR PRN tab 01/21/23 Dapagliflozin Propanediol [Farxiga] 10 mg PO DAILY #30 tablet 01/21/23 Furosemide [Lasix] 40 mg PO BID #60 tab 04/29/23 predniSONE 10 mg PO DIRECTED #40 tab 04/29/23 Allergies Allergy/AdvReac Type Severity Reaction Status Date / Time ANJU Inhibitors Allergy Unknown - Verified 04/25/23 19:01 per [facility] doxycycline Allergy Anaphylaxis Verified 04/25/23 19:01 Penicillins Allergy Anaphylaxis, Verified 04/25/23 19:01 Seizure Review of Systems ROS Statement: Those systems with pertinent positive or pertinent negative responses have been documented in the HPI. ROS Other: All systems not noted in ROS Statement are negative. Past Medical History Past Medical History: Atrial Fibrillation, Asthma, COPD, Diabetes Mellitus, GERD/Reflux, Hyperlipidemia, Hypertension, Osteoarthritis (OA), Pneumonia Additional Past Medical History / Comment(s): Afib RVR, home oxygen prn, bronchitis, pt states he is on metformin to prevent becoming diabetic, neuropathy bilateral feet/L hand, chronic pain back,/bilateral hips/knees/elbows and shoulders, L heel pain, FALLS, cataracts. 11/23/22 ex-spouse phylicia Waterman reports history is accurate to her knowledge. current adominal hernia noted History of Any Multi-Drug Resistant Organisms: None Reported Past Surgical History: Appendectomy Additional Past Surgical History / Comment(s): Colonoscopy. 11/23/22 ex-spouse phylicia Waterman reports history is accurate to her knowledge. Past Anesthesia/Blood Transfusion Reactions: No Reported Reaction Past Psychological History: Unable to Obtain, Anxiety, Depression Smoking Status: Current every day smoker Past Alcohol Use History: None Reported Past Drug Use History: None Reported - Past Family History Father Family Medical History: Congestive Heart Failure (CHF), COPD Additional Family Medical History / Comment(s): Father was an alcoholic but was able to quit drinking Mother Family Medical History: Congestive Heart Failure (CHF), COPD Additional Family Medical History / Comment(s): Mother was an alcoholic. Daughter(s) Additional Family Medical History / Comment(s): Liver cancer General Exam Limitations: no limitations General appearance: alert, in no apparent distress, anxious, in distress Head exam: Present: atraumatic, normocephalic, normal inspection Eye exam: Present: normal appearance, PERRL, EOMI. Absent: scleral icterus, conjunctival injection, periorbital swelling ENT exam: Present: normal exam, mucous membranes moist Neck exam: Present: normal inspection. Absent: tenderness, meningismus, lymphadenopathy Respiratory exam: Present: respiratory distress, wheezes, accessory muscle use, decreased breath sounds, prolonged expiratory. Absent: rales, rhonchi, stridor Cardiovascular Exam: Present: tachycardia, irregular rhythm, normal heart sounds. Absent: systolic murmur, diastolic murmur, rubs, gallop, clicks GI/Abdominal exam: Present: soft, normal bowel sounds. Absent: distended, tenderness, guarding, rebound, rigid Extremities exam: Present: normal inspection, full ROM, normal capillary refill. Absent: tenderness, pedal edema, joint swelling, calf tenderness Back exam: Present: normal inspection Neurological exam: Present: alert, oriented X3, CN II-XII intact Psychiatric exam: Present: normal affect, normal mood Skin exam: Present: warm, dry, intact, normal color. Absent: rash Course Vital Signs 04/25/23 04/25/23 04/25/23 16:00 16:04 17:03 Temperature 98.7 F Pulse Rate 100 109 H Respiratory 22 22 Rate Blood Pressure 144/89 O2 Sat by Pulse 95 Oximetry 04/25/23 04/25/23 04/25/23 17:13 17:14 17:25 Temperature Pulse Rate 84 84 92 Respiratory Rate Blood Pressure O2 Sat by Pulse Oximetry 04/25/23 04/25/23 04/25/23 17:40 18:07 18:57 Temperature 98.7 F Pulse Rate 90 89 99 Respiratory 20 20 19 Rate Blood Pressure 140/77 140/65 149/64 O2 Sat by Pulse 97 98 94 L Oximetry 04/25/23 04/25/23 04/25/23 20:15 20:38 20:50 Temperature Pulse Rate 89 78 92 Respiratory 18 Rate Blood Pressure 138/63 O2 Sat by Pulse 96 Oximetry 04/25/23 21:02 Temperature Pulse Rate 82 Respiratory 20 Rate Blood Pressure 137/59 O2 Sat by Pulse 96 Oximetry - Reevaluation(s) Reevaluation #1: 04/25/23 18:49 Medical records reviewed Reevaluation #2: 04/25/23 18:49 Patient symptoms are unchanged Reevaluation #3: 04/25/23 20:25 Patient informed results questions answered Reevaluation #4: 04/25/23 18:50 Was pt. sent in by a medical professional or institution (, PA, SOFTWARE RELIABILITY ENGINEER, urgent care, hospital, or residential...) When possible be specific @ -no Did you speak to anyone other than the patient for history (EMS, parent, family, police, friend...)? What history was obtained from this source @ -no Did you review nursing and triage notes (agree or disagree)? Why? @ -agree Are old charts reviewed (outside hosp., previous admission, EMS record, old EKG, old radiological studies, urgent care reports/EKG's, residential records)? Report findings @ -yes Differential Diagnosis (chest pain, altered mental status, abdominal pain women, abdominal pain men, vaginal bleeding, weakness, fever, dyspnea, syncope, headache, dizziness, GI bleed, back pain, seizure, CVA, palpatations, mental health, musculoskeletal)? @ -prior EKG interpreted by me (3pts min.). @ -yes X-rays interpreted by me (1pt min.). @ -yes CT interpreted by me (1pt min.). @ -no U/S interpreted by me (1pt. min.). @ -no What testing was considered but not performed or refused? (CT, X-rays, U/S, labs)? Why? @ -none What meds were considered but not given or refused? Why? @ -none Did you discuss the management of the patient with other professionals (professionals i.e. , PA, SOFTWARE RELIABILITY ENGINEER, lab, RT, psych nurse, social work msw, cotton weigher, t eacher, aviation ordnance officer, manager of case management)? Give summary @ -no Was smoking cessation discussed for >3mins.? @ -no Was critical care preformed (if so, how long)? @ -no Were there social determinants of health that impacted care today? How? (Homelessness, low income, unemployed, alcoholism, drug addiction, transportation, low edu. Level, literacy, decrease access to med. care, group home, rehab)? @ -none Was there de-escalation of care discussed even if they declined (Discuss DNR or withdrawal of care, Hospice)? DNR status @ -no What co-morbidities impacted this encounter? (DM, HTN, Smoking, COPD, CAD, Cancer, CVA, ARF, Chemo, Hep., AIDS, mental health diagnosis, sleep apnea, morbid obesity)? @ -none Was patient admitted / discharged? Hospital course, mention meds given and route, prescriptions, significant lab abnormalities, going to OR and other pertinent info. @ - 72 male to the emergency department for evaluation of severe shortness of breath CHF COPD A. fib with RVR multifactorial respiratory failure. Patient be admitted for further evaluation and management. Patient states the last 3-4 days he is unable to sleep at night as he feels he will make it through the night Admitted Undiagnosed new problem with uncertain prognosis? @ -no Drug Therapy requiring intensive monitoring for toxicity (Heparin, Nitro, Insulin, Cardizem)? @ -no Were any procedures done? @ -no Diagnosis/symptom? @ -Respiratory failure secondary to A. fib with RVR, COPD and CHF Acute, or Chronic, or Acute on Chronic? @ -Acute Uncomplicated (without systemic symptoms) or Complicated (systemic symptoms)? @ -Complicated Side effects of treatment? @ -no Exacerbation, Progression, or Severe Exacerbation? @ -exacerbation Poses a threat to life or bodily function? How? (Chest pain, USA, ID, pneumonia, PE, COPD, DKA, ARF, appy, cholecystitis, CVA, Diverticulitis, Homicidal, Suicidal, threat to staff... and all critical care pts) @ -yes respiratory failure Reevaluation #5: 04/25/23 18:50 Differential Dyspnea: Coronary syndrome, arrhythmia, tamponade, asthma, COPD, pulmonary embolism, pneumonia, pneumothorax, pulmonary effusion, anaphylaxis, diabetic ketoacidosis, flailed chest, pulmonary contusion, diaphragmatic rupture, anemia, neuromuscular, this is not meant to be an all-inclusive list. - Consultations Consultation #1: Spoke with [facility] who agree to admit this patient Medical Decision Making - Medical Decision Making 72 male to the emergency department for evaluation of severe shortness of breath CHF COPD A. fib with RVR multifactorial respiratory failure. Patient be admitted for further evaluation and management. Patient states the last 3-4 days he is unable to sleep at night as he feels he will make it through the night - Lab Data Result diagrams: 04/28/23 09:01 04/28/23 09:01 Lab Results 04/25/23 04/25/23 04/25/23 Range/Units 16:45 16:45 17:36 WBC (3.8-10.6) k/uL RBC (4.30-5.90) m/uL Hgb (13.0-17.5) gm/dL Hct (39.0-53.0) % MCV (80.0-100.0) fL MCH (25.0-35.0) pg MCHC (31.0-37.0) g/dL RDW (11.5-15.5) % Plt Count (150-450) k/uL MPV Neutrophils % % Lymphocytes % % Monocytes % % Eosinophils % % Basophils % % Neutrophils # (1.3-7.7) k/uL Lymphocytes # (1.0-4.8) k/uL Monocytes # (0-1.0) k/uL Eosinophils # (0-0.7) k/uL Basophils # (0-0.2) k/uL Hypochromasia Anisocytosis PT 9.5 (9.0-12.0) sec INR 0.9 (<1.2) APTT 18.4 L (22.0-30.0) sec Sodium 132 L (137-145) mmol/L Potassium 4.9 (3.5-5.1) mmol/L Chloride 92 L (98-107) mmol/L Carbon Dioxide 35 H (22-30) mmol/L Anion Gap 5 mmol/L BUN 9 (9-20) mg/dL Creatinine 0.58 L (0.66-1.25) mg/dL Est GFR (CKD-EPI)AfAm >90 (>60 ml/min/1.73 sqM) Est GFR (CKD-EPI)NonAf >90 (>60 ml/min/1.73 sqM) Glucose 92 (74-99) mg/dL Plasma Lactic Acid Wes (0.7-2.0) mmol/L Calcium 8.5 (8.4-10.2) mg/dL Magnesium 1.8 (1.6-2.3) mg/dL Total Bilirubin 1.1 (0.2-1.3) mg/dL AST 35 (17-59) U/L ALT 15 (4-49) U/L Alkaline Phosphatase 69 (38-126) U/L Troponin I <0.012 (0.000-0.034) ng/mL NT-Pro-B Natriuret Pep 574 pg/mL Total Protein 6.3 (6.3-8.2) g/dL Albumin 3.5 (3.5-5.0) g/dL 04/25/23 04/25/23 Range/Units 17:36 17:36 WBC 10.3 (3.8-10.6) k/uL RBC 4.71 (4.30-5.90) m/uL Hgb 13.1 (13.0-17.5) gm/dL Hct 41.0 (39.0-53.0) % MCV 87.1 (80.0-100.0) fL MCH 27.7 (25.0-35.0) pg MCHC 31.9 (31.0-37.0) g/dL RDW 17.3 H (11.5-15.5) % Plt Count 158 (150-450) k/uL MPV 7.6 Neutrophils % 70 % Lymphocytes % 18 % Monocytes % 7 % Eosinophils % 3 % Basophils % 1 % Neutrophils # 7.1 (1.3-7.7) k/uL Lymphocytes # 1.8 (1.0-4.8) k/uL Monocytes # 0.8 (0-1.0) k/uL Eosinophils # 0.3 (0-0.7) k/uL Basophils # 0.1 (0-0.2) k/uL Hypochromasia Slight Anisocytosis Slight PT (9.0-12.0) sec INR (<1.2) APTT (22.0-30.0) sec Sodium (137-145) mmol/L Potassium (3.5-5.1) mmol/L Chloride (98-107) mmol/L Carbon Dioxide (22-30) mmol/L Anion Gap mmol/L BUN (9-20) mg/dL Creatinine (0.66-1.25) mg/dL Est GFR (CKD-EPI)AfAm (>60 ml/min/1.73 sqM) Est GFR (CKD-EPI)NonAf (>60 ml/min/1.73 sqM) Glucose (74-99) mg/dL Plasma Lactic Acid Wes 1.1 (0.7-2.0) mmol/L Calcium (8.4-10.2) mg/dL Magnesium (1.6-2.3) mg/dL Total Bilirubin (0.2-1.3) mg/dL AST (17-59) U/L ALT (4-49) U/L Alkaline Phosphatase (38-126) U/L Troponin I (0.000-0.034) ng/mL NT-Pro-B Natriuret Pep pg/mL Total Protein (6.3-8.2) g/dL Albumin (3.5-5.0) g/dL - EKG Data -: EKG Interpreted by Me (EKG is A. fib 90 QRS 88 QTc 381) Rate: tachycardia (Patient became significantly tachycardic in atrial fibrillation during coughing attack while was in the room) - Radiology Data Radiology results: report reviewed (Chest x-ray positive for CHF), image reviewed Disposition Clinical Impression: COPD exacerbation, Chronic atrial fibrillation, Pulmonary edema, acute, COPD with acute exacerbation, Hypoxia, Heart failure, Atrial fibrillation with RVR Disposition: ADMITTED IP TO THIS HOSP Condition: Fair Is patient prescribed a controlled substance at d/c from ED?: No Time of Disposition: 20:25
[2023-04-25 17:20] LABS: ALT 15 U/L (4-49); African American GFR (CKD) >90 (>60 ml/min/1.73 sqM); Blood Urea Nitrogen 9 mg/dL (9-20); Calcium 8.5 mg/dL (8.4-10.2); Non-African American GFR(CKD) >90 (>60 ml/min/1.73 sqM); Total Bilirubin 1.1 mg/dL (0.2-1.3); Total Protein 6.3 g/dL (6.3-8.2)
[2023-04-25 17:41] LABS: Albumin 3.5 g/dL (3.5-5.0); Anion Gap 5 mmol/L; Carbon Dioxide 35 mmol/L (22-30); Chloride 92 mmol/L (98-107); Glucose 92 mg/dL (74-99); Sodium 132 mmol/L (137-145)
[2023-04-25 17:49] LABS: NT-Pro-B-Type Natriuretic Pept 574 pg/mL
[2023-04-25 17:49] LABS: Anisocytosis Slight; Basophils # (A) 0.1 k/uL (0-0.2); Basophils % (A) 1 %; Eosinophils # (A) 0.3 k/uL (0-0.7); Eosinophils % (A) 3 %; HGB 13.1 gm/dL (13.0-17.5); Hypochromasia Slight; Lymphocytes # (A) 1.8 k/uL (1.0-4.8); Lymphocytes % (A) 18 %; MCH 27.7 pg (25.0-35.0); MCHC 31.9 g/dL (31.0-37.0); MCV 87.1 fL (80.0-100.0); Mean Platelet Volume 7.6; Monocytes # (A) 0.8 k/uL (0-1.0); Monocytes % (A) 7 %; Neutrophils # (A) 7.1 k/uL (1.3-7.7); Neutrophils % (A) 70 %; Platelet Count 158 k/uL (150-450); RBC 4.71 m/uL (4.30-5.90); RDW 17.3 % (11.5-15.5); WBC 10.3 k/uL (3.8-10.6)
[2023-04-25 17:57] LABS: INR 0.9 (<1.2); Prothrombin Time 9.5 sec (9.0-12.0)
[2023-04-25 18:06] LABS: AST 35 U/L (17-59); Alkaline Phosphatase 69 U/L (38-126); Magnesium 1.8 mg/dL (1.6-2.3); Potassium 4.9 mmol/L (3.5-5.1)
[2023-04-25 18:10] LABS: Partial Thromboplastin Time 18.4 sec (22.0-30.0)
[2023-04-25] MEDS ORDERED: ONDANSETRON 4 MG/2 ML VIAL IVP PRN (20:20)
[2023-04-25] MEDS ORDERED: NALOXONE 0.4 MG/ML 1 ML VIAL IV PRN (20:20)
[2023-04-25] MEDS: FUROSEMIDE 10 MG/ML 4 ML VIAL IV SCH (20:56)
[2023-04-26] MEDS ORDERED: IPRATROPIUM-ALBUTEROL 3 ML NEB INHALATION PRN (00:15)
[2023-04-26] MEDS ORDERED: ACETAMINOPHEN TAB 325 MG TAB PO PRN (00:20)
[2023-04-26] MEDS: MORPHINE SULFATE 4 MG/ML SYRINGE IVP PRN ×4 (00:34→17:12)
--- NOTE | 2023-04-26 05:36 | P.CNPUL ---
History of Present Illness Consult date: 04/26/23 Requesting physician: Victor Hugo Fagan Reason for consult: COPD Chief complaint: Shortness of breath and cough History of present illness: I am seeing this patient in new consultation today 04/26/2023 likely for combination of acute COPD exacerbation and mild CHF exacerbation. Patient is a 72-year-old white male with past medical history significant for severe COPD, chronic oxygen dependence on 3 L/m nasal cannula, congestive heart failure, chronic atrial fibrillation, diabetes mellitus, hyperlipidemia, hypertension, obesity, GERD, and is a chronic smoker. He does not follow with pulmonary in the outpatient setting. His PCP is Dr. Elver Santiago. Patient presented to emergency room yesterday afternoon complaining of shortness of breath along with a persistent cough that started approximately 24 hours prior to arrival. Patient states that the cough is occasionally productive. Patient denies any fever, chills, chest pain, hemoptysis. He does report occasional heart palpitations, chronic lower extremity swelling, and orthopnea when lying flat. Patient states that he also fell yesterday on his left side. He denies hitting his head. There is some obvious tenderness when palpating the left back and left lateral chest. There is no deformity or crepitus. There is a small amount of bruising in the left flank area, which is nontender and soft. He is currently sitting up in bed, on 4 L/m nasal cannula, in no acute distress. Chest x-ray on arrival showed cardiomegaly, pulmonary vascular congestion, and small to moderate bilateral pleural effusions. No obvious displaced rib fractures. NT proBNP was only mildly elevated at 574. Troponins less than 0.012. Patient has been started on Lasix 40 mg twice a day. CBC on arrival was unremarkable. BMP on arrival shows a sodium 132, potassium 4.9, chloride 92, serum bicarbonate 35, BUN 9, creatinine 0.58, glucose 92. No IV maintenance fluids. ECG on admission shows atrial fibrillation with controlled ventricular rate and no obvious acute ischemic changes. Patient appears hemodynamicly stable, and is being monitored on the cardiac stepdown unit. Review of Systems REVIEW OF SYSTEMS: CONSTITUTIONAL: Denies any recent significant weight loss or weight gain. EYES: Denies change in vision. EARS, NOSE, MOUTH, THROAT: Denies headaches, denies sore throat. CARDIOVASCULAR: See HPI RESPIRATORY: See HPI GASTROINTESTINAL: Denies change in appetite, abdominal pain, nausea and vomiting, or diarrhea GENITOURINARY: Denies hematuria, denies infections. MUSKULOSKELETAL: Denies pain, denies swelling. Left posterior/lateral chest pain reproducible with palpation INTEGUMENTARY: Denies rash, denies eczema. Chronic lower extremity swelling and flaking/erythema NEUROLOGICAL: Denies recent memory loss, no recent seizure activity. PSYCHIATRIC: Denies anxiety, denies depression. HEMATOLOGIC/LYMPHATIC: Denies anemia, denies enlarged lymph node Past Medical History Past Medical History: Atrial Fibrillation, Asthma, COPD, Diabetes Mellitus, GERD/Reflux, Hyperlipidemia, Hypertension, Osteoarthritis (OA), Pneumonia Additional Past Medical History / Comment(s): Afib RVR, home oxygen prn, bronchi tis, pt states he is on metformin to prevent becoming diabetic, neuropathy bilateral feet/L hand, chronic pain back,/bilateral hips/knees/elbows and shoulders, L heel pain, FALLS, cataracts. 11/23/22 ex-spouse phylicia Waterman reports history is accurate to her knowledge. current adominal hernia noted History of Any Multi-Drug Resistant Organisms: None Reported Past Surgical History: Appendectomy Additional Past Surgical History / Comment(s): Colonoscopy. 11/23/22 ex-spouse phylicia Waterman reports history is accurate to her knowledge. Past Anesthesia/Blood Transfusion Reactions: No Reported Reaction Past Psychological History: Unable to Obtain, Anxiety, Depression Additional Psychological History / Comment(s): 11/23/22 ex-spouse phylicia Waterman reports history is accurate to her knowledge. Smoking Status: Current every day smoker Past Alcohol Use History: None Reported Additional Past Alcohol Use History / Comment(s): Pt started smoking in 1969 and smokes 2 ppd or a little more. He states he has hx of ETOH abuse but has not drank in a few years. Past Drug Use History: None Reported Additional Drug Use History / Comment(s): Patient reports being a heavy marijuana smoker in the 1969" - Past Family History Father Family Medical History: Congestive Heart Failure (CHF), COPD Additional Family Medical History / Comment(s): Father was an alcoholic but was able to quit drinking Mother Family Medical History: Congestive Heart Failure (CHF), COPD Additional Family Medical History / Comment(s): Mother was an alcoholic. Daughter(s) Additional Family Medical History / Comment(s): Liver cancer Medications and Allergies Home Medications Medication Instructions Recorded Confirmed Type Albuterol Nebulized [Ventolin 2.5 mg INHALATION RT-Q6H PRN 05/08/20 04/25/23 History Nebulized] Apixaban [Eliquis] 5 mg PO BID #60 tab 07/08/20 04/25/23 Rx Ipratropium-Albuterol Nebulize 3 ml INHALATION RT-Q6H PRN 05/02/21 04/25/23 History [Duoneb 0.5 mg-3 mg/3 ml Soln] Tamsulosin [Flomax] 0.4 mg PO DAILY 12/07/21 04/25/23 History Albuterol Sulfate [Proair Hfa] 2 puff INHALATION RT-Q6H PRN 02/18/22 04/25/23 History Fluticasone Nasal [place] [Flonase 1 spr EA NOSTRIL Q12H PRN 02/18/22 04/25/23 History Nasal [place]] Theophylline Anhydrous 400 mg PO DAILY 02/18/22 04/25/23 History [Theophylline] Escitalopram [Lexapro] 5 mg PO DAILY 08/29/22 04/25/23 History Omeprazole 40 mg PO DAILY 08/29/22 04/25/23 History Metoprolol Tartrate [Lopressor] 50 mg PO BID tab 09/07/22 04/25/23 Rx metFORMIN HCL [Glucophage] 500 mg PO BID tab 09/07/22 04/25/23 Rx Melatonin 6 mg PO HS PRN 10 Days #20 tab 11/29/22 04/25/23 Rx Spironolactone [Aldactone] 25 mg PO DAILY #30 tab 11/29/22 04/25/23 Rx Atorvastatin Calcium [Lipitor] 40 mg PO HS 12/31/22 04/25/23 History DULoxetine HCL [Cymbalta] 30 mg PO DAILY 12/31/22 04/25/23 History Fluticasone/Vilanterol [Breo 1 puff INHALATION RT-DAILY 12/31/22 04/25/23 History Ellipta 100-25 Mcg Inhaler] Acetaminophen Tab [Tylenol] 650 mg PO Q6HR PRN tab 01/21/23 04/25/23 Rx Dapagliflozin Propanediol [Farxiga] 10 mg PO DAILY #30 tablet 01/21/23 04/25/23 Rx Budesonide-Formot 160-4.5 Mcg 2 puff INHALATION RT-BID 02/11/23 04/25/23 History [Symbicort 160-4.5 Mcg Inhaler] Furosemide [Lasix] 40 mg PO BID 04/25/23 04/25/23 History HYDROcodone/APAP 10-325MG [[place] 1 tab PO RT-QID PRN 04/25/23 04/25/23 History 10-325] Nicotine 21Mg/24Hr Patch [Habitrol] 1 patch TRANSDERM DAILY PRN 04/25/23 04/25/23 History Potassium Chloride ER [K-Dur 10] 10 meq PO DAILY 04/25/23 04/25/23 History amLODIPine [Norvasc] 10 mg PO DAILY 04/25/23 04/25/23 History diazePAM [Valium] 5 mg PO BID PRN 04/25/23 04/25/23 History hydrALAZINE HCL [Apresoline] 25 mg PO BID 04/25/23 04/25/23 History predniSONE 5 mg PO DAILY 04/25/23 04/25/23 History Allergies Allergy/AdvReac Type Severity Reaction Status Date / Time ANJU Inhibitors Allergy Unknown - Verified 04/25/23 19[facility] Allergy Anaphylaxis Verified 04/25/23 19:01 Penicillins Allergy Anaphylaxis, Verified 04/25/23 19:01 Seizure Physical Exam Vitals: Vital Signs Temp Pulse Pulse Resp BP BP Pulse Ox 04/26/23 04:00 99 17 164/74 94 L 04/26/23 02:00 20 04/26/23 00:00 98.1 F 98 18 136/71 98 04/25/23 21:02 82 20 137/59 96 04/25/23 20:50 92 04/25/23 20:38 78 04/25/23 20:15 89 18 138/63 96 04/25/23 18:57 98.7 F 99 19 149/64 94 L 04/25/23 18:07 89 20 140/65 98 04/25/23 17:40 90 20 140/77 97 04/25/23 17:25 92 04/25/23 17:14 84 04/25/23 17:13 84 04/25/23 17:03 109 H 04/25/23 16:04 22 04/25/23 16:00 98.7 F 100 22 144/89 95 Intake and Output 04/25/23 04/25/23 04/26/23 14:59 22:59 06:59 Output Total 400 250 Balance -400 -250 Output: Urine 400 250 Other: Voiding Method Urinal Weight 113.398 kg 104 kg GENERAL EXAM: Alert, obese 72-year-old white male, comfortable in no apparent distress. HEAD: Normocephalic and atraumatic EYES: Normal reaction of pupils, equal size. NOSE: Clear with pink turbinates. THROAT: No erythema or exudates. NECK: No masses, no JVD. CHEST: No chest wall deformity. No crepitus or bruising LUNGS: Equal air entry with expiratory wheezes heard throughout. On 4 L/m nasal cannula. No conversational dyspnea or accessory muscle use.. CVS: S1 and S2 normal with no audible murmur, irregular rhythm. No extra heart sounds ABDOMEN: Obese abdomen with umbilical hernia, no hepatosplenomegaly, active bowel sounds, no guarding or rigidity. SPINE: No scoliosis or deformity SKIN: No rashes CENTRAL NERVOUS SYSTEM: No focal deficits, tone is normal in all 4 extremities. EXTREMITIES: There is bilateral lower extremity mild nonpitting edema. No clubbing or cyanosis. Peripheral pulses are intact. Results - Laboratory Findings CBC and BMP: 04/25/23 17:36 04/25/23 16:45 PT/INR, D-dimer PT 9.5 sec (9.0-12.0) 04/25/23 17:36 INR 0.9 (<1.2) 04/25/23 17:36 Abnormal lab findings: Abnormal Labs 04/25/23 04/25/23 04/25/23 16:45 17:36 17:36 RDW 17.3 H APTT 18.4 L Sodium 132 L Chloride 92 L Carbon Dioxide 35 H Creatinine 0.58 L - Diagnostic Findings Chest x-ray: image reviewed Assessment and Plan Assessment: Acute on chronic hypoxemic respiratory failure likely multifactorial related to a combination of acute COPD exacerbation and mild systolic CHF exacerbation. Currently on 4 L/m nasal cannula. Admission chest x-ray shows cardiomegaly, pulmonary vascular congestion, and bilateral pleural effusions. NT proBNP only mildly elevated at 574. Severe oxygen and steroid dependent COPD Chronic atrial fibrillation, with controlled ventricular rate, normally anticoagulated on Eliquis Essential hypertension Hyperlipidemia Diabetes mellitus type 2, complicated with diabetic neuropathy Morbid obesity with a BMI of 31 kg/m Chronic pain Chronic nicotine dependence Plan: Patient's medications, labs, chest x-ray reviewed Agree with diuresis Start patient on combination of DuoNeb's, Symbicort inhaler, and IV Solu-Medrol Smoking cessation counseling performed Nicotine replacement offered We will continue to follow and make recommendations I have personally seen and examined the patient, performed the documentation and the assessment and plan as written. Number of minutes spent on the visit:20 Time with Patient: Greater than 30
[2023-04-26] MEDS: methylPREDNISolone SOD SUCCI 125 MG/2 ML VIAL IV SCH ×3 (06:15→17:11)
[2023-04-26] MEDS ORDERED: NICOTINE 21MG/24HR PATCH TRANSDERM PRN (06:38)
[2023-04-26] MEDS ORDERED: FLUTICASONE 50MCG/SPRAY NASAL 16GM EA NOSTRIL PRN (06:38)
[2023-04-26] MEDS ORDERED: DEXTROSE 50% SYRINGE 50 ML IVP PRN ×2 (06:41)
[2023-04-26] MEDS ORDERED: NON FORMULARY DRUG (Fluticasone/Vilanterol [Breo Ellipta 100-25 Mcg Inhaler] 1 EACH Blst.W INHALATION SCH (08:00)
[2023-04-26] MEDS: DULoxetine HCL 30 MG CAPSULE.DR PO SCH (08:22)
[2023-04-26] MEDS: HYDROcodone/APAP 10-325MG 1 EACH TAB PO PRN ×3 (08:23→20:46)
[2023-04-26] MEDS: FAMOTIDINE 20 MG/2 ML VIAL IV SCH ×2 (08:24→20:47)
[2023-04-26] MEDS: amLODIPine 10 MG TAB PO SCH (08:24)
[2023-04-26] MEDS: METOPROLOL TARTRATE 50 MG TAB PO SCH ×2 (08:24→20:46)
[2023-04-26] MEDS: APIXABAN 5 MG TAB PO SCH ×2 (08:24→20:46)
[2023-04-26] MEDS: SPIRONOLACTONE 25 MG TAB PO SCH (08:24)
[2023-04-26] MEDS: hydrALAZINE HCL 25 MG TAB PO SCH ×2 (08:24→20:47)
[2023-04-26] MEDS: FUROSEMIDE 10 MG/ML 4 ML VIAL IV SCH ×2 (08:24→20:47)
[2023-04-26] MEDS: TAMSULOSIN 0.4 MG CAP.ER.24H PO SCH (08:24)
--- NOTE | 2023-04-26 08:31 | P.HPIM ---
History of Present Illness This is a pleasant 71 years old male with multiple medical problems including COPD, diabetes mellitus, hypertension, hyperlipidemia, osteoarthritis, GERD, diabetic neuropathy, chronic back pain, joint disease and falls He was recently in the hospital for COPD exacerbation and bilateral lower extremity edema and chronic CHF Patient presents because of dyspnea, worsening over one week with cough and productive phlegm. Also his complaining of from left lower rib pain and tenderness. He states that he fell about 2 days ago without syncope and he fell on his bottom but he cannot remember if he hurt his chest or anywhere else. Patient denies abdominal pain vomiting diarrhea. No urinary complaints. No headache dizziness weakness or numbness. He quit smoking 1 week ago and states is done with smoking and he really wants to quit. He denies alcohol or illicit drugs. He is on 4 L oxygen at home Vitals stable and afebrile, mildly tachypneic As unremarkable CBC, INR, BMP, liver enzymes, troponin 3 are negative. ProBNP 574. Chest x-ray: Cardio megaly with pulmonary vascular congestion and bilateral pleural effusions correlate for CHF I reviewed the chest x-ray and agree EKG showing A. fib with rate controlled at 90, no significant ST-T changes. Patient currently on IV Solu-Medrol 60 mg and IV Lasix 40 mg Review of Systems Review of systems CONSTITUTIONAL: No fever, no malaise, no fatigue. HEENT: No recent visual problems or hearing problems. Denied any sore throat. CARDIOVASCULAR: No orthopnea, PND, no palpitations, no syncope. -PULMONARY: As above, no hemoptysis. GASTROINTESTINAL: No diarrhea, no nausea, no vomiting, no abdominal pain. Normoactive bowel sounds. NEUROLOGICAL: No headaches, no weakness, no numbness. HEMATOLOGICAL: Denies any bleeding or petechiae. GENITOURINARY: Denies any burning micturition, frequency, or urgency. MUSCULOSKELETAL/RHEUMATOLOGICAL: Denies any joint pain, swelling, or any muscle pain. ENDOCRINE: Denies any polyuria or polydipsia. Past Medical History Past Medical History: Atrial Fibrillation, Asthma, COPD, Diabetes Mellitus, GERD/Reflux, Hyperlipidemia, Hypertension, Osteoarthritis (OA), Pneumonia Additional Past Medical History / Comment(s): Afib RVR, home oxygen prn, bronchitis, pt states he is on metformin to prevent becoming diabetic, neuropathy bilateral feet/L hand, chronic pain back,/bilateral hips/knees/elbows and shoulders, L heel pain, FALLS, cataracts. 11/23/22 ex-spouse phylicia Waterman reports history is accurate to her knowledge. current adominal hernia noted History of Any Multi-Drug Resistant Organisms: None Reported Past Surgical History: Appendectomy Additional Past Surgical History / Comment(s): Colonoscopy. 11/23/22 ex-spouse phylicia Waterman reports history is accurate to her knowledge. Past Anesthesia/Blood Transfusion Reactions: No Reported Reaction Past Psychological History: Unable to Obtain, Anxiety, Depression Additional Psychological History / Comment(s): 11/23/22 ex-spouse phylicia Waterman reports history is accurate to her knowledge. Smoking Status: Current every day smoker Past Alcohol Use History: None Reported Additional Past Alcohol Use History / Comment(s): Pt started smoking in 1969 and smokes 2 ppd or a little more. He states he has hx of ETOH abuse but has not drank in a few years. Past Drug Use History: None Reported Additional Drug Use History / Comment(s): Patient reports being a heavy marijuana smoker in the 1969" - Past Family History Father Family Medical History: Congestive Heart Failure (CHF), COPD Additional Family Medical History / Comment(s): Father was an alcoholic but was able to quit drinking Mother Family Medical History: Congestive Heart Failure (CHF), COPD Additional Family Medical History / Comment(s): Mother was an alcoholic. Daughter(s) Additional Family Medical History / Comment(s): Liver cancer Medications and Allergies Home Medications Medication Instructions Recorded Confirmed Type Albuterol Nebulized [Ventolin 2.5 mg INHALATION RT-Q6H PRN 05/08/20 04/25/23 History Nebulized] Apixaban [Eliquis] 5 mg PO BID #60 tab 07/08/20 04/25/23 Rx Ipratropium-Albuterol Nebulize 3 ml INHALATION RT-Q6H PRN 05/02/21 04/25/23 History [Duoneb 0.5 mg-3 mg/3 ml Soln] Tamsulosin [Flomax] 0.4 mg PO DAILY 12/07/21 04/25/23 History Albuterol Sulfate [Proair Hfa] 2 puff INHALATION RT-Q6H PRN 02/18/22 04/25/23 History Fluticasone Nasal [place] [Flonase 1 spr EA NOSTRIL Q12H PRN 02/18/22 04/25/23 History Nasal [place]] Theophylline Anhydrous 400 mg PO DAILY 02/18/22 04/25/23 History [Theophylline] Escitalopram [Lexapro] 5 mg PO DAILY 08/29/22 04/25/23 History Omeprazole 40 mg PO DAILY 08/29/22 04/25/23 History Metoprolol Tartrate [Lopressor] 50 mg PO BID tab 09/07/22 04/25/23 Rx metFORMIN HCL [Glucophage] 500 mg PO BID tab 09/07/22 04/25/23 Rx Melatonin 6 mg PO HS PRN 10 Days #20 tab 11/29/22 04/25/23 Rx Spironolactone [Aldactone] 25 mg PO DAILY #30 tab 11/29/22 04/25/23 Rx Atorvastatin Calcium [Lipitor] 40 mg PO HS 12/31/22 04/25/23 History DULoxetine HCL [Cymbalta] 30 mg PO DAILY 12/31/22 04/25/23 History Fluticasone/Vilanterol [Breo 1 puff INHALATION RT-DAILY 12/31/22 04/25/23 History Ellipta 100-25 Mcg Inhaler] Acetaminophen Tab [Tylenol] 650 mg PO Q6HR PRN tab 01/21/23 04/25/23 Rx Dapagliflozin Propanediol [Farxiga] 10 mg PO DAILY #30 tablet 01/21/23 04/25/23 Rx Budesonide-Formot 160-4.5 Mcg 2 puff INHALATION RT-BID 02/11/23 04/25/23 History [Symbicort 160-4.5 Mcg Inhaler] Furosemide [Lasix] 40 mg PO BID 04/25/23 04/25/23 History HYDROcodone/APAP 10-325MG [[place] 1 tab PO RT-QID PRN 04/25/23 04/25/23 History 10-325] Nicotine 21Mg/24Hr Patch [Habitrol] 1 patch TRANSDERM DAILY PRN 04/25/23 04/25/23 History Potassium Chloride ER [K-Dur 10] 10 meq PO DAILY 04/25/23 04/25/23 History amLODIPine [Norvasc] 10 mg PO DAILY 04/25/23 04/25/23 History diazePAM [Valium] 5 mg PO BID PRN 04/25/23 04/25/23 History hydrALAZINE HCL [Apresoline] 25 mg PO BID 04/25/23 04/25/23 History predniSONE 5 mg PO DAILY 04/25/23 04/25/23 History Allergies Allergy/AdvReac Type Severity Reaction Status Date / Time ANJU Inhibitors Allergy Unknown - Verified 04/25/23 19:01 per [facility] doxycycline Allergy Anaphylaxis Verified 04/25/23 19:01 Penicillins Allergy Anaphylaxis, Verified 04/25/23 19:01 Seizure Physical Exam Vitals: Vital Signs Temp Pulse Pulse Resp BP BP Pulse Ox 04/26/23 04:00 99 17 164/74 94 L 04/26/23 02:00 20 04/26/23 00:00 98.1 F 98 18 136/71 98 04/25/23 21:02 82 20 137/59 96 04/25/23 20:50 92 04/25/23 20:38 78 04/25/23 20:15 89 18 138/63 96 04/25/23 18:57 98.7 F 99 19 149/64 94 L 04/25/23 18:07 89 20 140/65 98 04/25/23 17:40 90 20 140/77 97 04/25/23 17:25 92 04/25/23 17:14 84 04/25/23 17:13 84 04/25/23 17:03 109 H 04/25/23 16:04 22 04/25/23 16:00 98.7 F 100 22 144/89 95 Intake and Output 04/25/23 04/25/23 04/26/23 14:59 22:59 06:59 Output Total 400 650 Balance -400 -650 Output: Urine 400 650 Other: Voiding Method Urinal Weight 113.398 kg 104 kg GENERAL: The patient is alert and oriented x3, not in any acute distress. Well developed, well nourished. HEENT: Pupils are round and equally reacting to light. EOMI. No scleral icterus. No conjunctival pallor. Normocephalic, atraumatic. No pharyngeal erythema. No thyromegaly. CARDIOVASCULAR: S1 and S2 present. No murmurs, rubs, or gallops. -PULMONARY: Chest is clear to auscultation, bilateral scattered wheezing , no crackles. ABDOMEN: Soft, nontender, nondistended, normoactive bowel sounds. No palpable organomegaly. MUSCULOSKELETAL: No joint swelling or deformity. EXTREMITIES: No cyanosis, clubbing, or pedal edema. NEUROLOGICAL: Gross neurological examination did not reveal any focal deficits. SKIN: No rashes. no petechiae. Results CBC & Chem 7: 04/25/23 17:36 04/25/23 16:45 Labs: Abnormal Lab Results - Last 24 Hours (Table) 04/25/23 04/25/23 04/25/23 Range/Units 16:45 17:36 17:36 RDW 17.3 H (11.5-15.5) % APTT 18.4 L (22.0-30.0) sec Sodium 132 L (137-145) mmol/L Chloride 92 L (98-107) mmol/L Carbon Dioxide 35 H (22-30) mmol/L Creatinine 0.58 L (0.66-1.25) mg/dL Thrombosis Risk Factor Assmnt - Choose All That Apply Any of the Below Risk Factors Present?: Yes Each Factor Represents 1 point: Abnormal pulmonary function (COPD) Other Risk Factors: Yes Each Risk Factor Represents 2 Points: Age 61-74 years Other congenital or acquired thrombophilia - If yes, enter type in comment: No Thrombosis Risk Factor Assessment Total Risk Factor Score: 3 Thrombosis Risk Factor Assessment Level: Moderate Risk Assessment and Plan Assessment: Acute on chronic diastolic CHF Bilateral pitting leg edema, acute on chronic chronic atrial fibrillation on Eliquis and the rate is controlled on admission Chronic hypoxic respiratory failure with related to her oxygen via nasal cannula Diabetes mellitus Hypertension Hyperlipidemia History of osteoarthritis History of GERD Diabetic neuropathy of feet and hands Chronic back pain Polyarthralgia History of falls History of anxiety and depression, not in activation Obese with BMI 38.5 Plan: Continue with IV Solu-Medrol Continue with IV Lasix Pulmonary consult Labs and medication were reviewed.. Continue same treatment. Continue with symptomatic treatment. Resume home medication. Monitor labs and vitals. DVT and GI prophylaxis. Further recommendations as per clinical course of the patient DVT prophylaxis: Eliquis GI Prophylaxis: Pepcid PT/OT: Pending Prognosis is guarded
[2023-04-26 09:25] LABS: Anisocytosis Slight; Basophils % (A) 0 %; Eosinophils # (A) 0.1 k/uL (0-0.7); Eosinophils % (A) 1 %; HCT 40.3 % (39.0-53.0); HGB 12.9 gm/dL (13.0-17.5); Hypochromasia Slight; Lymphocytes # (A) 0.9 k/uL (1.0-4.8); Lymphocytes % (A) 6 %; MCH 28.1 pg (25.0-35.0); MCHC 31.9 g/dL (31.0-37.0); MCV 88.3 fL (80.0-100.0); Mean Platelet Volume 7.6; Monocytes # (A) 0.3 k/uL (0-1.0); Monocytes % (A) 2 %; Neutrophils # (A) 12.3 k/uL (1.3-7.7); Neutrophils % (A) 90 %; Platelet Count 193 k/uL (150-450); RBC 4.57 m/uL (4.30-5.90); RDW 17.4 % (11.5-15.5); WBC 13.7 k/uL (3.8-10.6)
[2023-04-26 09:53] LABS: ALT 15 U/L (4-49); AST 19 U/L (17-59); African American GFR (CKD) >90 (>60 ml/min/1.73 sqM); Albumin 3.7 g/dL (3.5-5.0); Alkaline Phosphatase 85 U/L (38-126); Anion Gap 7 mmol/L; Blood Urea Nitrogen 12 mg/dL (9-20); Calcium 8.7 mg/dL (8.4-10.2); Carbon Dioxide 38 mmol/L (22-30); Chloride 90 mmol/L (98-107); Glucose 101 mg/dL (74-99); Magnesium 1.8 mg/dL (1.6-2.3); Non-African American GFR(CKD) >90 (>60 ml/min/1.73 sqM); Phosphorus 4.1 mg/dL (2.5-4.5); Sodium 135 mmol/L (137-145); Total Bilirubin 1.1 mg/dL (0.2-1.3); Total Protein 6.4 g/dL (6.3-8.2)
[2023-04-26 09:54] LABS: Glucose,Whole Blood 122 mg/dL (70-110)
[2023-04-26] MEDS: INSULIN ASPART (NovoLOG) 100 UNIT/ML VIAL SQ SCH ×4 (10:10→20:46)
[2023-04-26] MEDS: SYMBICORT 160-4.5 MCG INHALER INHALATION SCH ×2 (10:14→19:42)
[2023-04-26] MEDS: DAPAGLIFLOZIN PROPANEDIOL 10 MG TABLET PO SCH (10:14)
[2023-04-26] MEDS: IPRATROPIUM-ALBUTEROL 3 ML NEB INHALATION SCH ×4 (10:14→19:42)
[2023-04-26] MEDS: metFORMIN 500 MG TAB PO SCH ×2 (10:14→17:11)
[2023-04-26 11:32] LABS: Glucose,Whole Blood 145 mg/dL (70-110)
[2023-04-26] MEDS: ESCITALOPRAM 5 MG TAB PO SCH (11:49)
[2023-04-26 12:35] VITALS: BMI 31.1
--- NOTE | 2023-04-26 12:40 | P.CRDCN ---
History of Present Illness Consult date: 04/26/23 History of present illness: History of present illness: This is a 72-year-old male with a past medical history significant for chronic atrial fibrillation on eliquis, COPD and chronic hypoxic respiratory failure with home oxygen use, hypertension, hyperlipidemia, diabetes, active tobacco use and dependence. Patient does not follow with a senior energy consultant. We have been asked to evaluate the patient for heart failure. Patient states that he has had increasing shortness of breath. He states he is always short of breath due to his COPD. He complains of cough with sputum production. He denies any fever or chills. He denies having any lower extremity edema. He denies any weight change. He has no history of cardiac surgery/stent. Patient denies having any chest pain. EKG atrial fibrillation with ventricular rate of 85 bpm Chest x-ray: Cardiomegaly, pulmonary vascular congestion bilateral pleural effusions Troponin negative 3. WBC 13.7, hemoglobin 12.9, platelet count 193. Sodium 135, potassium 4, BUN 12 and creatinine 0.64. The CO2 38. Liver function tests normal. ProBNP 574. Home cardiac medications: Amlodipine 10 mg daily, eliquis 5 mg twice daily, Lipitor 40 mg at bedtime, Farxiga 10 mg daily, Lasix 40 mg twice daily, hydralazine 25 mg twice daily, Lopressor 50 mg twice daily, nicotine patch daily, Aldactone 25 mg daily. Echocardiogram 01/03/2023 reveals EF 40-45%, moderate concentric left atrial hypertrophy, moderate pulmonary hypertension, mildly dilated right ventricle. Review Of Systems: At the time of my evaluation: Constitutional: No fever, no chills. No weakness, fatigue or lethargy. EENT: No headache. No dizziness. Lungs: + shortness of breath, + cough, + sputum production. + wheezing. Cardiovascular: No chest pain, no lower extremity edema. No palpitations. No paroxysmal nocturnal dyspnea. No orthopnea. No lightheadedness or dizziness. No syncopal episodes. Abdominal: No abdominal pain. No nausea, vomiting. No diarrhea. No constipation. No bloody or tarry stools. Musculoskeletal: No myalgias. No muscle weakness, no frequent falls. Integumentary: No wounds. No rash. No unusual bruising. Neurologic: No aphasia. No facial droop. No change in mentation. Physical examination: Gen: This is a 72-year-old male. He is resting in chair and appears to be comfortable at rest. VS: reviewed HEENT: Head is atraumatic, normocephalic. Pupils equal, round. Sclerae is anicteric. NECK: Supple. No JVD. LUNGS: Bilateral expiratory wheeze. No intercostal retractions. HEART: Regular rate and rhythm. No murmur. ABDOMEN: Soft No tenderness. EXTREMITIES: No pedal edema, chronic color changes. NEUROLOGICAL: Patient is awake, alert and oriented x3. Assessment: Acute on chronic systolic heart failure Acute COPD Chronic atrial fibrillation on eliquis Hypertension Hyperlipidemia Diabetes Active tobacco use and dependence Plan: Continue current cardiac medications Continue IV Lasix 40 mg every 12 hours for 1 more day plan to transition to oral tomorrow No need to repeat echocardiogram as this was done in December Monitor I&O, daily weights, electrolytes and renal function Further recommendations to follow based upon clinical course Thank you kindly for this consultation. Nurse practitioner note has been reviewed, I agree with documented findings and plan of care. Patient was seen and examined. Past Medical History Past Medical History: Atrial Fibrillation, Asthma, COPD, Diabetes Mellitus, GERD/Reflux, Hyperlipidemia, Hypertension, Osteoarthritis (OA), Pneumonia Additional Past Medical History / Comment(s): Afib RVR, home oxygen prn, bronchitis, pt states he is on metformin to prevent becoming diabetic, n europathy bilateral feet/L hand, chronic pain back,/bilateral hips/knees/elbows and shoulders, L heel pain, FALLS, cataracts. 11/23/22 ex-spouse phylicia Waterman reports history is accurate to her knowledge. current adominal hernia noted History of Any Multi-Drug Resistant Organisms: None Reported Past Surgical History: Appendectomy Additional Past Surgical History / Comment(s): Colonoscopy. 11/23/22 ex-spouse phylicia Waterman reports history is accurate to her knowledge. Past Anesthesia/Blood Transfusion Reactions: No Reported Reaction Past Psychological History: Unable to Obtain, Anxiety, Depression Additional Psychological History / Comment(s): 11/23/22 ex-spouse phylicia Waterman reports history is accurate to her knowledge. Smoking Status: Current every day smoker Past Alcohol Use History: None Reported Additional Past Alcohol Use History / Comment(s): Pt started smoking in 1969 and smokes 2 ppd or a little more. He states he has hx of ETOH abuse but has not drank in a few years. Past Drug Use History: None Reported Additional Drug Use History / Comment(s): Patient reports being a heavy marijuana smoker in the 1970" - Past Family History Father Family Medical History: Congestive Heart Failure (CHF), COPD Additional Family Medical History / Comment(s): Father was an alcoholic but was able to quit drinking Mother Family Medical History: Congestive Heart Failure (CHF), COPD Additional Family Medical History / Comment(s): Mother was an alcoholic. Daughter(s) Additional Family Medical History / Comment(s): Liver cancer Medications and Allergies Home Medications Medication Instructions Recorded Confirmed Type Albuterol Nebulized [Ventolin 2.5 mg INHALATION RT-Q6H PRN 05/08/20 04/25/23 History Nebulized] Apixaban [Eliquis] 5 mg PO BID #60 tab 07/08/20 04/25/23 Rx Ipratropium-Albuterol Nebulize 3 ml INHALATION RT-Q6H PRN 05/02/21 04/25/23 History [Duoneb 0.5 mg-3 mg/3 ml Soln] Tamsulosin [Flomax] 0.4 mg PO DAILY 12/07/21 04/25/23 History Albuterol Sulfate [Proair Hfa] 2 puff INHALATION RT-Q6H PRN 02/18/22 04/25/23 History Fluticasone Nasal [place] [Flonase 1 spr EA NOSTRIL Q12H PRN 02/18/22 04/25/23 History Nasal [place]] Theophylline Anhydrous 400 mg PO DAILY 02/18/22 04/25/23 History [Theophylline] Escitalopram [Lexapro] 5 mg PO DAILY 08/29/22 04/25/23 History Omeprazole 40 mg PO DAILY 08/29/22 04/25/23 History Metoprolol Tartrate [Lopressor] 50 mg PO BID tab 09/07/22 04/25/23 Rx metFORMIN HCL [Glucophage] 500 mg PO BID tab 09/07/22 04/25/23 Rx Melatonin 6 mg PO HS PRN 10 Days #20 tab 11/29/22 04/25/23 Rx Spironolactone [Aldactone] 25 mg PO DAILY #30 tab 11/29/22 04/25/23 Rx Atorvastatin Calcium [Lipitor] 40 mg PO HS 12/31/22 04/25/23 History DULoxetine HCL [Cymbalta] 30 mg PO DAILY 12/31/22 04/25/23 History Fluticasone/Vilanterol [Breo 1 puff INHALATION RT-DAILY 12/31/22 04/25/23 History Ellipta 100-25 Mcg Inhaler] Acetaminophen Tab [Tylenol] 650 mg PO Q6HR PRN tab 01/21/23 04/25/23 Rx Dapagliflozin Propanediol [Farxiga] 10 mg PO DAILY #30 tablet 01/21/23 04/25/23 Rx Budesonide-Formot 160-4.5 Mcg 2 puff INHALATION RT-BID 02/11/23 04/25/23 History [Symbicort 160-4.5 Mcg Inhaler] Furosemide [Lasix] 40 mg PO BID 04/25/23 04/25/23 History HYDROcodone/APAP 10-325MG [[place] 1 tab PO RT-QID PRN 04/25/23 04/25/23 History 10-325] Nicotine 21Mg/24Hr Patch [Habitrol] 1 patch TRANSDERM DAILY PRN 04/25/23 04/25/23 History Potassium Chloride ER [K-Dur 10] 10 meq PO DAILY 04/25/23 04/25/23 History amLODIPine [Norvasc] 10 mg PO DAILY 04/25/23 04/25/23 History diazePAM [Valium] 5 mg PO BID PRN 04/25/23 04/25/23 History hydrALAZINE HCL [Apresoline] 25 mg PO BID 04/25/23 04/25/23 History predniSONE 5 mg PO DAILY 04/25/23 04/25/23 History Allergies Allergy/AdvReac Type Severity Reaction Status Date / Time ANJU Inhibitors Allergy Unknown - Verified 04/25/23 19:01 [facility] Allergy Anaphylaxis Verified 04/25/23 19:01 Penicillins Allergy Anaphylaxis, Verified 04/25/23 19:01 Seizure Physical Exam Vitals: Vital Signs Temp Pulse Pulse Resp BP BP Pulse Ox 04/26/23 08:20 17 04/26/23 08:19 97.9 F 93 17 137/80 97 04/26/23 04:00 99 17 164/74 94 L 04/26/23 02:00 20 04/26/23 00:00 98.1 F 98 18 136/71 98 04/25/23 21:02 82 20 137/59 96 04/25/23 20:50 92 04/25/23 20:38 78 04/25/23 20:15 89 18 138/63 96 04/25/23 18:57 98.7 F 99 19 149/64 94 L 04/25/23 18:07 89 20 140/65 98 04/25/23 17:40 90 20 140/77 97 04/25/23 17:25 92 04/25/23 17:14 84 04/25/23 17:13 84 04/25/23 17:03 109 H 04/25/23 16:04 22 04/25/23 16:00 98.7 F 100 22 144/89 95 Intake and Output 04/25/23 04/26/23 04/26/23 22:59 06:59 14:59 Output Total 400 650 Balance -400 -650 Output: Urine 400 650 Other: Voiding Method Urinal Urinal Weight 113.398 kg 104 kg Results 04/26/23 08:49 04/26/23 08:49 Cardiac Enzymes 04/25/23 04/25/23 04/25/23 Range/Units 16:45 16:45 21:13 AST 35 (17-59) U/L Troponin I <0.012 <0.012 (0.000-0.034) ng/mL 04/25/23 Range/Units 23:34 AST (17-59) U/L Troponin I <0.012 (0.000-0.034) ng/mL Coagulation 04/25/23 Range/Units 17:36 PT 9.5 (9.0-12.0) sec APTT 18.4 L (22.0-30.0) sec CBC 04/25/23 Range/Units 17:36 WBC 10.3 (3.8-10.6) k/uL RBC 4.71 (4.30-5.90) m/uL Hgb 13.1 (13.0-17.5) gm/dL Hct 41.0 (39.0-53.0) % Plt Count 158 (150-450) k/uL Comprehensive Metabolic Panel 04/25/23 Range/Units 16:45 Sodium 132 L (137-145) mmol/L Potassium 4.9 (3.5-5.1) mmol/L Chloride 92 L (98-107) mmol/L Carbon Dioxide 35 H (22-30) mmol/L BUN 9 (9-20) mg/dL Creatinine 0.58 L (0.66-1.25) mg/dL Glucose 92 (74-99) mg/dL Calcium 8.5 (8.4-10.2) mg/dL AST 35 (17-59) U/L ALT 15 (4-49) U/L Alkaline Phosphatase 69 (38-126) U/L Total Protein 6.3 (6.3-8.2) g/dL Albumin 3.5 (3.5-5.0) g/dL Current Medications Generic Name Dose Route Start Last Admin Trade Name Freq PRN Reason Stop Dose Admin Acetaminophen 650 mg 04/26/23 00:20 Acetaminophen Tab 325 Mg Tab PO Q6HR PRN Fever and/ or Pain Hydrocodone Bitart/Acetaminophen 1 each 04/26/23 06:38 04/26/23 08:23 Hydrocodone/Apap 10-325mg 1 Each Tab PO 1 each RT-QID PRN Administration Shortness Of Breath Albuterol/Ipratropium 3 ml 04/26/23 08:00 Ipratropium-Albuterol 3 Ml Neb INHALATION RT-QID ALESSIO Albuterol/Ipratropium 3 ml 04/26/23 00:15 Ipratropium-Albuterol 3 Ml Neb INHALATION RT-Q4H PRN Shortness Of Breath Or Wheezing Amlodipine Besylate 10 mg 04/26/23 09:00 04/26/23 08:24 Amlodipine 10 Mg Tab PO 10 mg DAILY ALESSIO Administration Apixaban 5 mg 04/26/23 09:00 04/26/23 08:24 Apixaban 5 Mg Tab PO 5 mg BID ALESSIO Administration Protocol Atorvastatin Calcium 40 mg 04/26/23 21:00 Atorvastatin 40 Mg Tab PO HS [facility] Budesonide/Formoterol Fumarate 2 puff 04/26/23 08:00 Symbicort 160-4.5 Mcg Inhaler INHALATION RT-BID ALESSIO Dapagliflozin 10 mg 04/26/23 09:00 Dapagliflozin Propanediol 10 Mg Tablet PO DAILY [facility] Dextrose/Water 25 ml 04/26/23 06:41 Dextrose 50% Syringe 50 Ml IVP PER PROTOCOL PRN Hypoglycemia Protocol Dextrose/Water 50 ml 04/26/23 06:41 Dextrose 50% Syringe 50 Ml IVP PER PROTOCOL PRN Hypoglycemia Protocol Duloxetine HCl 30 mg 04/26/23 09:00 04/26/23 08:22 Duloxetine Hcl 30 Mg Capsule.Dr PO 30 mg DAILY ALESSIO Administration Escitalopram Oxalate 5 mg 04/26/23 09:00 Escitalopram 5 Mg Tab PO DAILY [facility] Famotidine 20 mg 04/26/23 09:00 04/26/23 08:24 Famotidine 20 Mg/2 Ml Vial IV 20 mg Q12HR ALESSIO Administration Fluticasone Propionate 1 spray 04/26/23 06:38 Fluticasone 50mcg/[place] Nasal 16gm EA NOSTRIL Q12H PRN nasal drainage Furosemide 40 mg 04/25/23 20:30 04/26/23 08:24 Furosemide 10 Mg/Ml 4 Ml Vial IV 40 mg Q12H ALESSIO Administration Hydralazine HCl 25 mg 04/26/23 09:00 04/26/23 08:24 Hydralazine Hcl 25 Mg Tab PO 25 mg BID [facility] Administration Insulin Aspart 0 unit 04/26/23 07:30 Insulin Aspart (Novolog) 100 Unit/Ml Vial SQ ACHS ALESSIO Protocol Melatonin 6 mg 04/26/23 06:38 Melatonin 3 Mg Tablet PO HS PRN Insomnia Metformin HCl 500 mg 04/26/23 07:30 Metformin 500 Mg Tab PO BID-W/MEALS [facility] Methylprednisolone Sodium Succinate 60 mg 04/26/23 06:00 04/26/23 06:15 Methylprednisolone Sod Succi 125 Mg/2 Ml Vial IV 60 mg Q6HR [facility] Administration Metoprolol Tartrate 50 mg 04/26/23 09:00 04/26/23 08:24 Metoprolol Tartrate 50 Mg Tab PO 50 mg BID [facility] Administration Morphine Sulfate 4 mg 04/25/23 17:05 04/26/23 04:46 Morphine Sulfate 4 Mg/Ml Syringe IVP 4 mg Q4HR PRN Administration Pain Naloxone HCl 0.2 mg 04/25/23 20:20 Naloxone 0.4 Mg/Ml 1 Ml Vial IV Q2M PRN Opioid Reversal Nicotine 1 patch 04/26/23 06:38 Nicotine 21mg/24hr Patch TRANSDERM DAILY PRN Nicotine Cravings Ondansetron HCl 4 mg 04/25/23 20:20 Ondansetron 4 Mg/2 Ml Vial IVP Q8HR PRN Nausea And Vomiting Spironolactone 25 mg 04/26/23 09:00 04/26/23 08:24 Spironolactone 25 Mg Tab PO 25 mg DAILY ALESSIO Administration Tamsulosin HCl 0.4 mg 04/26/23 09:00 04/26/23 08:24 Tamsulosin 0.4 Mg Cap.Er.24h PO 0.4 mg DAILY ALESSIO Administration Intake and Output 04/25/23 04/26/23 04/26/23 22:59 06:59 14:59 Output Total 400 650 Balance -400 -650 Output: Urine 400 650 Other: Voiding Method Urinal Urinal Weight 113.398 kg 104 kg 04/25/23 17:36 04/25/23 16:45
[2023-04-26 16:25] LABS: Glucose,Whole Blood 198 mg/dL (70-110)
[2023-04-26 20:11] LABS: Glucose,Whole Blood 186 mg/dL (70-110)
[2023-04-26] MEDS: ATORVASTATIN 40 MG TAB PO SCH (20:46)
[2023-04-27] MEDS: methylPREDNISolone SOD SUCCI 125 MG/2 ML VIAL IV SCH ×4 (00:15→17:58)
[2023-04-27] MEDS: MORPHINE SULFATE 4 MG/ML SYRINGE IVP PRN (01:40)
[2023-04-27 06:16] LABS: Glucose,Whole Blood 136 mg/dL (70-110)
[2023-04-27] MEDS: INSULIN ASPART (NovoLOG) 100 UNIT/ML VIAL SQ SCH ×4 (06:32→20:58)
[2023-04-27] MEDS: metFORMIN 500 MG TAB PO SCH ×2 (06:47→17:57)
[2023-04-27] MEDS: HYDROcodone/APAP 10-325MG 1 EACH TAB PO PRN ×3 (06:47→17:57)
[2023-04-27 09:18] LABS: Anisocytosis Slight; Basophils % (A) 0 %; Eosinophils % (A) 0 %; HCT 37.8 % (39.0-53.0); HGB 12.1 gm/dL (13.0-17.5); Lymphocytes # (A) 0.8 k/uL (1.0-4.8); Lymphocytes % (A) 9 %; MCH 27.6 pg (25.0-35.0); MCHC 32.1 g/dL (31.0-37.0); Mean Platelet Volume 7.6; Monocytes # (A) 0.4 k/uL (0-1.0); Monocytes % (A) 5 %; Neutrophils # (A) 7.5 k/uL (1.3-7.7); Neutrophils % (A) 86 %; Platelet Count 200 k/uL (150-450); RDW 17.3 % (11.5-15.5); WBC 8.8 k/uL (3.8-10.6)
[2023-04-27 09:21] LABS: African American GFR (CKD) >90 (>60 ml/min/1.73 sqM); Anion Gap 6 mmol/L; Blood Urea Nitrogen 21 mg/dL (9-20); Calcium 8.5 mg/dL (8.4-10.2); Carbon Dioxide 36 mmol/L (22-30); Chloride 90 mmol/L (98-107); Glucose 163 mg/dL (74-99); Non-African American GFR(CKD) >90 (>60 ml/min/1.73 sqM); Sodium 132 mmol/L (137-145)
[2023-04-27] MEDS: IPRATROPIUM-ALBUTEROL 3 ML NEB INHALATION SCH ×4 (09:22→21:15)
[2023-04-27] MEDS: SYMBICORT 160-4.5 MCG INHALER INHALATION SCH ×2 (09:22→21:15)
[2023-04-27] MEDS: DAPAGLIFLOZIN PROPANEDIOL 10 MG TABLET PO SCH (09:50)
[2023-04-27] MEDS: APIXABAN 5 MG TAB PO SCH ×2 (09:50→20:57)
[2023-04-27] MEDS: SPIRONOLACTONE 25 MG TAB PO SCH (09:50)
[2023-04-27] MEDS: FUROSEMIDE 10 MG/ML 4 ML VIAL IV SCH ×2 (09:50→20:57)
[2023-04-27] MEDS: amLODIPine 10 MG TAB PO SCH (09:50)
[2023-04-27] MEDS: METOPROLOL TARTRATE 50 MG TAB PO SCH ×2 (09:50→20:57)
[2023-04-27] MEDS: FAMOTIDINE 20 MG/2 ML VIAL IV SCH ×2 (09:50→20:57)
[2023-04-27] MEDS: TAMSULOSIN 0.4 MG CAP.ER.24H PO SCH (09:50)
[2023-04-27] MEDS: DULoxetine HCL 30 MG CAPSULE.DR PO SCH (09:50)
[2023-04-27] MEDS: hydrALAZINE HCL 25 MG TAB PO SCH ×2 (09:51→20:57)
[2023-04-27] MEDS: ESCITALOPRAM 5 MG TAB PO SCH (09:51)
[2023-04-27] MEDS: guaiFENesin-DM 100-10MG/5ML 10 ML CUP PO SCH ×3 (10:54→17:58)
[2023-04-27 11:19] LABS: Glucose,Whole Blood 199 mg/dL (70-110)
--- NOTE | 2023-04-27 11:34 | P.PN ---
Subjective Progress Note Date: 04/27/23 I am seeing this patient in new consultation today 04/26/2023 likely for combination of acute COPD exacerbation and mild CHF exacerbation. Patient is a 72-year-old white male with past medical history significant for severe COPD, chronic oxygen dependence on 3 L/m nasal cannula, congestive heart failure, chronic atrial fibrillation, diabetes mellitus, hyperlipidemia, hypertension, obesity, GERD, and is a chronic smoker. He does not follow with pulmonary in the outpatient setting. His PCP is Dr. Elver Santiago. Patient presented to emergency room yesterday afternoon complaining of shortness of breath along with a persistent cough that started approximately 24 hours prior to arrival. Patient states that the cough is occasionally productive. Patient denies any fever, chills, chest pain, hemoptysis. He does report occasional heart palpitations, chronic lower extremity swelling, and orthopnea when lying flat. Patient states that he also fell yesterday on his left side. He denies hitting his head. There is some obvious tenderness when palpating the left back and left lateral chest. There is no deformity or crepitus. There is a small amount of bruising in the left flank area, which is nontender and soft. He is currently sitting up in bed, on 4 L/m nasal cannula, in no acute distress. Chest x-ray on arrival showed cardiomegaly, pulmonary vascular congestion, and small to moderate bilateral pleural effusions. No obvious displaced rib fractures. NT proBNP was only mildly elevated at 574. Troponins less than 0.012. Patient has been started on Lasix 40 mg twice a day. CBC on arrival was unremarkable. BMP on arrival shows a sodium 132, potassium 4.9, chloride 92, serum bicarbonate 35, BUN 9, creatinine 0.58, glucose 92. No IV maintenance fluids. ECG on admission shows atrial fibrillation with controlled ventricular rate and no obvious acute ischemic changes. Patient appears hemodynamicly stable, and is being monitored on the cardiac stepdown unit. The patient is seen today 04/27/2023 in follow-up on the selective care unit. He is currently sitting up at the bedside. Awake and alert in no acute distress. 18 O2 saturations in the 90s on 3 L/m per nasal cannula. He is still somewhat bronchospastic and wheezing. Diminished. Procalcitonin was 0.07. White count 8.8. Hemoglobin 12.1. Platelets 200,000. Sodium 132. Potassium 4.0. Bicarb 36. BUN 21. Creatinine 0.76. Glucose 163. He is continued on DuoNeb inhalations, Symbicort, Solu-Medrol. Remains on IV diuretics. NicoDerm patch in place. Currently in a -1 L balance. Objective - Vital Signs Vital signs: Vital Signs Temp 97.9 F 04/27/23 09:45 Pulse 99 04/27/23 09:45 Resp 17 04/27/23 09:45 BP 123/62 04/27/23 09:45 Pulse Ox 92 L 04/27/23 09:45 FiO2 Intake & Output 04/26/23 04/27/23 04/27/23 18:59 06:59 18:59 Intake Total 560 490 Output Total 800 720 Balance -240 -720 490 Weight 104 kg 102.5 kg Intake: IV 10 Invasive Line 2 10 Oral 560 480 Output: Urine 800 720 Other: Voiding Method Urinal Urinal Urinal - Exam GENERAL EXAM: Alert, obese 72-year-old male, on 3 L nasal cannula, comfortable in no apparent distress. HEAD: Normocephalic and atraumatic EYES: Normal reaction of pupils, equal size. NOSE: Clear with pink turbinates. THROAT: No erythema or exudates. NECK: No masses, no JVD. CHEST: No chest wall deformity. No crepitus or bruising LUNGS: Equal air entry with expiratory wheezes heard throughout. No conversational dyspnea or accessory muscle use. CVS: S1 and S2 normal with no audible murmur, irregular rhythm. No extra heart sounds ABDOMEN: Obese abdomen with umbilical hernia, no hepatosplenomegaly, active bowel sounds, no guarding or rigidity. SPINE: No scoliosis or deformity SKIN: No rashes CENTRAL NERVOUS SYSTEM: No focal deficits, tone is normal in all 4 extremities. EXTREMITIES: There is bilateral lower extremity mild nonpitting edema. No clubbing or cyanosis. Peripheral pulses are intact. - Labs CBC & Chem 7: 04/27/23 07:32 04/27/23 07:32 Labs: Abnormal Lab Results - Last 24 Hours (Table) 04/26/23 04/26/23 04/26/23 Range/Units 11:29 16: 20:09 Hgb (13.0-17.5) gm/dL Hct (39.0-53.0) % RDW (11.5-15.5) % Lymphocytes # (1.0-4.8) k/uL Sodium (137-145) mmol/L Chloride (98-107) mmol/L Carbon Dioxide (22-30) mmol/L BUN (9-20) mg/dL Glucose (74-99) mg/dL POC Glucose (mg/dL) 145 H 198 H 186 H (70-110) mg/dL 04/27/23 04/27/23 04/27/23 Range/Units 06:15 07:32 07:32 Hgb 12.1 L (13.0-17.5) gm/dL Hct 37.8 L (39.0-53.0) % RDW 17.3 H (11.5-15.5) % Lymphocytes # 0.8 L (1.0-4.8) k/uL Sodium 132 L (137-145) mmol/L Chloride 90 L (98-107) mmol/L Carbon Dioxide 36 H (22-30) mmol/L BUN 21 H (9-20) mg/dL Glucose 163 H (74-99) mg/dL POC Glucose (mg/dL) 136 H (70-110) mg/dL 04/27/23 Range/Units 11:17 Hgb (13.0-17.5) gm/dL Hct (39.0-53.0) % RDW (11.5-15.5) % Lymphocytes # (1.0-4.8) k/uL Sodium (137-145) mmol/L Chloride (98-107) mmol/L Carbon Dioxide (22-30) mmol/L BUN (9-20) mg/dL Glucose (74-99) mg/dL POC Glucose (mg/dL) 199 H (70-110) mg/dL Assessment and Plan Assessment: Acute on chronic hypoxemic respiratory failure likely multifactorial related to a combination of acute COPD exacerbation and mild systolic CHF exacerbation. Currently on 3 L/m nasal cannula. Admission chest x-ray shows cardiomegaly, pulmonary vascular congestion, and bilateral pleural effusions. NT proBNP only mildly elevated at 574. Severe oxygen and steroid dependent COPD Chronic atrial fibrillation, with controlled ventricular rate, normally anticoagulated on Eliquis Essential hypertension Hyperlipidemia Diabetes mellitus type 2, complicated with diabetic neuropathy Morbid obesity with a BMI of 31 kg/m Chronic pain Chronic nicotine dependence Plan: The patient was seen and evaluated Medications and labs reviewed Continue the current treatment plan Follow-up chest x-ray in a.m. Increase his activity as tolerated Titrate down the FiO2 as tolerated Educated regarding the importance of complete smoking cessation NicoDerm patch in place We will continue to follow I have personally seen and examined the patient, performed the documentation and the assessment and plan as written. Number of minutes spent on the visit: 10.
[2023-04-27] MEDS ORDERED: guaiFENesin-DM 100-10MG/5ML 10 ML CUP PO SCH (12:00)
--- NOTE | 2023-04-27 12:06 | P.PN ---
Subjective This is a pleasant 71 years old male with multiple medical problems including COPD, diabetes mellitus, hypertension, hyperlipidemia, osteoarthritis, GERD, diabetic neuropathy, chronic back pain, joint disease and falls He was recently in the hospital for COPD exacerbation and bilateral lower extremity edema and chronic CHF Patient presents because of dyspnea, worsening over one week with cough and productive phlegm. Also his complaining of from left lower rib pain and tenderness. He states that he fell about 2 days ago without syncope and he fell on his bottom but he cannot remember if he hurt his chest or anywhere else. Patient denies abdominal pain vomiting diarrhea. No urinary complaints. No headache dizziness weakness or numbness. He quit smoking 1 week ago and states is done with smoking and he really wants to quit. He denies alcohol or illicit drugs. He is on 4 L oxygen at home Vitals stable and afebrile, mildly tachypneic As unremarkable CBC, INR, BMP, liver enzymes, troponin 3 are negative. ProBNP 574. Chest x-ray: Cardio megaly with pulmonary vascular congestion and bilateral pleural effusions correlate for CHF I reviewed the chest x-ray and agree EKG showing A. fib with rate controlled at 90, no significant ST-T changes. Patient currently on IV Solu-Medrol 60 mg and IV Lasix 40 mg 04/27/2023 Patient remains short of breath and extensively wheezing, he has loud wheezing. His oxygen saturation is the same but he hasn't mild respiratory distress He remains on IV Solu-Medrol 60 mg IV Lasix 40 mg at home dose of Eliquis 5 mg. Patient complains from rib cage pain from coughing, Robitussin DM ordered, discontinue morphine. Continue [place]. Discussed with patient and he agrees Discussed with staff Objective - Vital Signs Vital signs: Vital Signs Temp 97.8 F 04/27/23 11:38 Pulse 90 04/27/23 12:03 Resp 18 04/27/23 12:03 BP 109/71 04/27/23 11:38 Pulse Ox 96 04/27/23 11:38 FiO2 Intake & Output 04/26/23 04/27/23 04/27/23 18:59 06:59 18:59 Intake Total 560 490 Output Total 800 720 400 Balance -240 -720 90 Weight 104 kg 102.5 kg Intake: IV 10 Invasive Line 2 10 Oral 560 480 Output: Urine 800 720 400 Other: Voiding Method Urinal Urinal Urinal - Exam GENERAL: The patient is alert and oriented x3, not in any acute distress. Well developed, well nourished. HEENT: Pupils are round and equally reacting to light. EOMI. No scleral icterus. No conjunctival pallor. Normocephalic, atraumatic. No pharyngeal erythema. No thyromegaly. CARDIOVASCULAR: S1 and S2 present. No murmurs, rubs, or gallops. -PULMONARY: Chest is clear to auscultation, bilateral extensive expiratory wheezing , no crackles. ABDOMEN: Soft, nontender, nondistended, normoactive bowel sounds. No palpable organomegaly. MUSCULOSKELETAL: No joint swelling or deformity. EXTREMITIES: No cyanosis, clubbing, or pedal edema. NEUROLOGICAL: Gross neurological examination did not reveal any focal deficits. SKIN: No rashes. no petechiae. - Labs CBC & Chem 7: 04/27/23 07:32 04/27/23 07:32 Labs: Abnormal Lab Results - Last 24 Hours (Table) 04/26/23 04/26/23 04/27/23 Range/Units 16:23 20:09 06:15 Hgb (13.0-17.5) gm/dL Hct (39.0-53.0) % RDW (11.5-15.5) % Lymphocytes # (1.0-4.8) k/uL Sodium (137-145) mmol/L Chloride (98-107) mmol/L Carbon Dioxide (22-30) mmol/L BUN (9-20) mg/dL Glucose (74-99) mg/dL POC Glucose (mg/dL) 198 H 186 H 136 H (70-110) mg/dL 04/27/23 04/27/23 04/27/23 Range/Units 07:32 07:32 11:17 Hgb 12.1 L (13.0-17.5) gm/dL Hct 37.8 L (39.0-53.0) % RDW 17.3 H (11.5-15.5) % Lymphocytes # 0.8 L (1.0-4.8) k/uL Sodium 132 L (137-145) mmol/L Chloride 90 L (98-107) mmol/L Carbon Dioxide 36 H (22-30) mmol/L BUN 21 H (9-20) mg/dL Glucose 163 H (74-99) mg/dL POC Glucose (mg/dL) 199 H (70-110) mg/dL Assessment and Plan Assessment: Acute on chronic diastolic CHF Bilateral pitting leg edema, acute on chronic chronic atrial fibrillation on Eliquis and the rate is controlled on admission Chronic hypoxic respiratory failure with related to her oxygen via nasal cannula Diabetes mellitus Hypertension Hyperlipidemia History of osteoarthritis History of GERD Diabetic neuropathy of feet and hands Chronic back pain Polyarthralgia History of falls History of anxiety and depression, not in activation Obese with BMI 38.5 Plan: Continue with IV Solu-Medrol Continue with IV Lasix Pulmonary consult Labs and medication were reviewed.. Continue same treatment. Continue with symptomatic treatment. Resume home medication. Monitor labs and vitals. DVT and GI prophylaxis. Further recommendations as per clinical course of the patient DVT prophylaxis: Eliquis GI Prophylaxis: Pepcid PT/OT: Pending Prognosis is guarded
[2023-04-27] MEDS ORDERED: SIMETHICONE 80 MG CHEWABLE PO PRN (12:17)
--- NOTE | 2023-04-27 14:15 | CDI ---
Documentation Clarification Form Date: 04/27/2023 02:08:41 PM From: Teresa Carlisle RN, CCDS Admit Date: 04/25/2023 08:24:00 PM Patient Name: Olegario Villela Visit Number: [id number] Discharge Date: ATTENTION: The Clinical Documentation Specialists (CDI) and [facility] Coding Staff appreciate your assistance in clarifying documentation. Please respond to the clarification below the line at the bottom and electronically sign. The CDI & [facility] Coding staff will review the response and follow-up if needed. Please note: Queries are made part of the Legal Health Record. If you have any questions, please contact the author of this message via ITS. Dr. Tigre Vann Sheet Conflicting documentation has been found in the medical record. As attending physician, please provide clarification. 04/26 H/P and subsequent documentation: Acute on chronic diastolic heart failure. 04/26 Cardiology consult: Acute on chronic systolic heart failure. Echocardiogram 01/03/2023 reveals EF 40-45%, moderate concentric left atrial hypertrophy, moderate pulmonary hypertension, mildly dilated right ventricle. ECHO (01/03/23): Left ventricular ejection fraction is estimated at 40-45%. Left ventricular cavity size normal. Moderate concentric left ventricular hypertrophy. Mild right ventricular dilation. Moderate pulmonary hypertension. Small pericardial effusion. History/Risk Factors: Atrial Fibrillation, Asthma, COPD, Diabetes Mellitus, GERD/Reflux, Hyperlipidemia, Hypertension, Osteoarthritis (OA), Pneumonia, home oxygen prn, Current every day smoker Clinical Indicators: 72-year-old male presents for evaluation of shortness of breath severe with coughing. Respiratory exam ED: Present: respiratory distress, wheezes, accessory muscle use, decreased breath sounds, prolonged expiratory. VS 144/89 100 22 98.7 95% 4/L NC 04/25 CXR: Cardiomegaly pulmonary vascular congestion and b/l effusions 04/25 Labs: BNP 574 Treatment Cardiac/Telemetry monitoring Lasix 40MG IV Q 12 HRS Monitor I &O, Daily weights, electrolytes and renal function [id number] MG PO Daily, Eliquis 5 MG PO BID, Lipitor 40MG PO HS Apresoline 25 MG PO BID, Lopressor 50 MG PO BID Please clarify which diagnosis is most appropriate: [ ] Acute on chronic systolic heart failure. [x ] Acute on chronic diastolic heart failure. [ ] Other (please specify) [ ] Unable to determine (Template Last Revised: November 2020) MTDD
--- NOTE | 2023-04-27 15:01 | P.PN ---
Subjective Progress Note Date: 04/27/23 History of present illness: This is a 72-year-old male with a past medical history significant for chronic atrial fibrillation on eliquis, COPD and chronic hypoxic respiratory failure with home oxygen use, hypertension, hyperlipidemia, diabetes, active tobacco use and dependence. 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 We have been asked to evaluate the patient for heart failure. Patient states that he has had increasing shortness of breath. He states he is always short of breath due to his COPD. He complains of cough with sputum production. He denies any fever or chills. He denies having any lower extremity edema. He denies any weight change. He has no history of cardiac surgery/stent. Patient denies having any chest pain. EKG atrial fibrillation with ventricular rate of 85 bpm Chest x-ray: Cardiomegaly, pulmonary vascular congestion bilateral pleural effusions Troponin negative 3. WBC 13.7, hemoglobin 12.9, platelet count 193. Sodium 135, potassium 4, BUN 12 and creatinine 0.64. The CO2 38. Liver function tests normal. ProBNP 574. Home cardiac medications: Amlodipine 10 mg daily, eliquis 5 mg twice daily, Lipitor 40 mg at bedtime, Farxiga 10 mg daily, Lasix 40 mg twice daily, hydralazine 25 mg twice daily, Lopressor 50 mg twice daily, nicotine patch daily, Aldactone 25 mg daily. Echocardiogram 01/03/2023 reveals EF 40-45%, moderate concentric left atrial hypertrophy, moderate pulmonary hypertension, mildly dilated right ventricle. 04/27 Patient is seen today in follow-up. Patient is complaining of some left rib pain with deep breathing. Later, patient complained to his nurse that he had some sternal chest pain. He continues to have a small amount of lower extremity edema. He is on IV Lasix at 40 every 12 hours. Patient's negative fluid balance of 960. Weight is down 1-1/2 kg. Repeat blood work reveals sodium 132, potassium 4, BUN 21 creatinine 0.76. Troponin negative 1. Physical examination: Gen: This is a 72-year-old male. He is resting in chair and appears to be comfortable at rest. VS: reviewed HEENT: Head is atraumatic, normocephalic. Pupils equal, round. Sclerae is anicteric. NECK: Supple. No JVD. LUNGS: Bilateral expiratory wheeze. No intercostal retractions. HEART: Regular rate and rhythm. No murmur. ABDOMEN: Soft No tenderness. EXTREMITIES: tr pedal edema, chronic color changes. NEUROLOGICAL: Patient is awake, alert and oriented x3. Assessment: Acute on chronic systolic heart failure Acute COPD Chronic atrial fibrillation on eliquis Hypertension Hyperlipidemia Diabetes Active tobacco use and dependence Plan: Continue current cardiac medications Continue IV Lasix 40 mg every 12 hours for 1 more day plan to transition to oral tomorrow No need to repeat echocardiogram as this was done in December Monitor I&O, daily weights, electrolytes and renal function Further recommendations to follow based upon clinical course Plan for possible discharge home tomorrow. Nurse practitioner note has been reviewed, I agree with documented findings and plan of care. Patient was seen and examined. Objective - Vital Signs Vital signs: Vital Signs Temp 97.8 F 04/27/23 11:38 Pulse 75 04/27/23 11:38 Resp 17 04/27/23 11:38 BP 109/71 04/27/23 11:38 Pulse Ox 96 04/27/23 11:38 FiO2 Intake & Output 04/26/23 04/27/23 04/27/23 18:59 06:59 18:59 Intake Total 560 490 Output Total 800 720 400 Balance -240 -720 90 Weight 104 kg 102.5 kg Intake: IV 10 Invasive Line 2 10 Oral 560 480 Output: Urine 800 720 400 Other: Voiding Method Urinal Urinal Urinal - Labs CBC & Chem 7: 04/27/23 07:32 04/27/23 07:32 Labs: Abnormal Lab Results - Last 24 Hours (Table) 04/26/23 04/26/23 04/27/23 Range/Units 16:23 20:09 06:15 Hgb (13.0-17.5) gm/dL Hct (39.0-53.0) % RDW (11.5-15.5) % Lymphocytes # (1.0-4.8) k/uL Sodium (137-145) mmol/L Chloride (98-107) mmol/L Carbon Dioxide (22-30) mmol/L BUN (9-20) mg/dL Glucose (74-99) mg/dL POC Glucose (mg/dL) 198 H 186 H 136 H (70-110) mg/dL 04/27/23 04/27/23 04/27/23 Range/Units 07:32 07:32 11:17 Hgb 12.1 L (13.0-17.5) gm/dL Hct 37.8 L (39.0-53.0) % RDW 17.3 H (11.5-15.5) % Lymphocytes # 0.8 L (1.0-4.8) k/uL Sodium 132 L (137-145) mmol/L Chloride 90 L (98-107) mmol/L Carbon Dioxide 36 H (22-30) mmol/L BUN 21 H (9-20) mg/dL Glucose 163 H (74-99) mg/dL POC Glucose (mg/dL) 199 H (70-110) mg/dL
[2023-04-27 16:27] LABS: Glucose,Whole Blood 159 mg/dL (70-110)
[2023-04-27] MEDS: GABAPENTIN 100 MG CAP PO SCH ×2 (17:57→21:30)
[2023-04-27 20:22] LABS: Glucose,Whole Blood 255 mg/dL (70-110)
[2023-04-27] MEDS: ATORVASTATIN 40 MG TAB PO SCH (20:57)
[2023-04-27] MEDS: MELATONIN 3 MG TABLET PO PRN (21:30)
[2023-04-28] MEDS: methylPREDNISolone SOD SUCCI 125 MG/2 ML VIAL IV SCH ×4 (00:10→17:43)
[2023-04-28] MEDS: guaiFENesin-DM 100-10MG/5ML 10 ML CUP PO SCH ×4 (00:11→17:43)
[2023-04-28 06:00] LABS: Glucose,Whole Blood 183 mg/dL (70-110)
[2023-04-28] MEDS: INSULIN ASPART (NovoLOG) 100 UNIT/ML VIAL SQ SCH ×4 (06:20→21:32)
[2023-04-28] MEDS: metFORMIN 500 MG TAB PO SCH ×2 (06:20→17:43)
[2023-04-28] MEDS: SYMBICORT 160-4.5 MCG INHALER INHALATION SCH ×2 (08:53→20:41)
[2023-04-28] MEDS: IPRATROPIUM-ALBUTEROL 3 ML NEB INHALATION SCH ×4 (08:53→20:42)
[2023-04-28] MEDS: FUROSEMIDE 10 MG/ML 4 ML VIAL IV SCH ×2 (09:10→21:32)
[2023-04-28] MEDS: GABAPENTIN 100 MG CAP PO SCH ×3 (09:10→21:31)
[2023-04-28] MEDS: FAMOTIDINE 20 MG/2 ML VIAL IV SCH ×2 (09:10→21:32)
[2023-04-28] MEDS: HYDROcodone/APAP 10-325MG 1 EACH TAB PO PRN ×3 (09:10→21:31)
[2023-04-28] MEDS: ESCITALOPRAM 5 MG TAB PO SCH (09:11)
[2023-04-28] MEDS: TAMSULOSIN 0.4 MG CAP.ER.24H PO SCH (09:11)
[2023-04-28] MEDS: APIXABAN 5 MG TAB PO SCH ×2 (09:11→21:31)
[2023-04-28] MEDS: DAPAGLIFLOZIN PROPANEDIOL 10 MG TABLET PO SCH (09:11)
[2023-04-28] MEDS: amLODIPine 10 MG TAB PO SCH (09:11)
[2023-04-28] MEDS: DULoxetine HCL 30 MG CAPSULE.DR PO SCH (09:11)
[2023-04-28] MEDS: hydrALAZINE HCL 25 MG TAB PO SCH ×2 (09:11→21:31)
[2023-04-28] MEDS: SPIRONOLACTONE 25 MG TAB PO SCH (09:11)
[2023-04-28] MEDS: METOPROLOL TARTRATE 50 MG TAB PO SCH ×2 (09:11→21:31)
[2023-04-28 09:19] LABS: Anisocytosis Slight; Basophils % (A) 0 %; Eosinophils % (A) 0 %; HCT 36.6 % (39.0-53.0); Lymphocytes # (A) 0.4 k/uL (1.0-4.8); Lymphocytes % (A) 5 %; MCH 28.5 pg (25.0-35.0); MCHC 32.7 g/dL (31.0-37.0); MCV 87.3 fL (80.0-100.0); Mean Platelet Volume 8.2; Monocytes # (A) 0.4 k/uL (0-1.0); Monocytes % (A) 5 %; Neutrophils # (A) 7.8 k/uL (1.3-7.7); Neutrophils % (A) 89 %; Platelet Count 225 k/uL (150-450); RBC 4.19 m/uL (4.30-5.90); RDW 17.4 % (11.5-15.5); WBC 8.7 k/uL (3.8-10.6)
[2023-04-28 10:03] LABS: African American GFR (CKD) >90 (>60 ml/min/1.73 sqM); Blood Urea Nitrogen 22 mg/dL (9-20); Calcium 8.2 mg/dL (8.4-10.2); Chloride 89 mmol/L (98-107); Glucose 135 mg/dL (74-99); Non-African American GFR(CKD) >90 (>60 ml/min/1.73 sqM); Sodium 133 mmol/L (137-145)
[2023-04-28 10:11] LABS: Anion Gap 9 mmol/L; Carbon Dioxide 35 mmol/L (22-30)
[2023-04-28 11:35] LABS: Glucose,Whole Blood 196 mg/dL (70-110)
[2023-04-28] MEDS ORDERED: diazePAM 2 MG TAB PO STA (12:11)
--- NOTE | 2023-04-28 12:57 | P.PN ---
Subjective Progress Note Date: 04/28/23 I am seeing this patient in new consultation today 04/26/2023 likely for combination of acute COPD exacerbation and mild CHF exacerbation. Patient is a 72-year-old white male with past medical history significant for severe COPD, chronic oxygen dependence on 3 L/m nasal cannula, congestive heart failure, chronic atrial fibrillation, diabetes mellitus, hyperlipidemia, hypertension, obesity, GERD, and is a chronic smoker. He does not follow with pulmonary in the outpatient setting. His PCP is Dr. Elver Santiago. Patient presented to emergency room yesterday afternoon complaining of shortness of breath along with a persistent cough that started approximately 24 hours prior to arrival. Patient states that the cough is occasionally productive. Patient denies any fever, chills, chest pain, hemoptysis. He does report occasional heart palpitations, chronic lower extremity swelling, and orthopnea when lying flat. Patient states that he also fell yesterday on his left side. He denies hitting his head. There is some obvious tenderness when palpating the left back and left lateral chest. There is no deformity or crepitus. There is a small amount of bruising in the left flank area, which is nontender and soft. He is currently sitting up in bed, on 4 L/m nasal cannula, in no acute distress. Chest x-ray on arrival showed cardiomegaly, pulmonary vascular congestion, and small to moderate bilateral pleural effusions. No obvious displaced rib fractures. NT proBNP was only mildly elevated at 574. Troponins less than 0.012. Patient has been started on Lasix 40 mg twice a day. CBC on arrival was unremarkable. BMP on arrival shows a sodium 132, potassium 4.9, chloride 92, serum bicarbonate 35, BUN 9, creatinine 0.58, glucose 92. No IV maintenance fluids. ECG on admission shows atrial fibrillation with controlled ventricular rate and no obvious acute ischemic changes. Patient appears hemodynamicly stable, and is being monitored on the cardiac stepdown unit. The patient is seen today 04/27/2023 in follow-up on the selective care unit. He is currently sitting up at the bedside. Awake and alert in no acute distress. 18 O2 saturations in the 90s on 3 L/m per nasal cannula. He is still somewhat bronchospastic and wheezing. Diminished. Procalcitonin was 0.07. White count 8.8. Hemoglobin 12.1. Platelets 200,000. Sodium 132. Potassium 4.0. Bicarb 36. BUN 21. Creatinine 0.76. Glucose 163. He is continued on DuoNeb inhalations, Symbicort, Solu-Medrol. Remains on IV diuretics. NicoDerm patch in place. Currently in a -1 L balance. The patient is seen today 04/28/2023 in follow-up on the selective care unit. He is currently sitting up in a chair. Awake and alert in no acute distress. No worsening shortness of breath, cough or congestion. He is maintaining O2 saturations in the 90s on 4 L/m per nasal cannula. His main complaints are generalized aches and pains. White count 8.7. Hemoglobin 12.0. Platelets 225. Sodium 133. Potassium 4.0. Bicarb 35. BUN 22. Creatinine 0.70. Glucose 135. He remains on DuoNeb inhalations, Symbicort, Solu-Medrol. Remains on IV diuretics. NicoDerm patch in place. Eliquis for anticoagulation. Objective - Vital Signs Vital signs: Vital Signs Temp 96.8 F L 04/28/23 08:00 Pulse 86 04/28/23 12:15 Resp 20 04/28/23 08:00 BP 117/68 04/28/23 08:00 Pulse Ox 94 L 04/28/23 08:00 FiO2 Intake & Output 04/27/23 04/28/23 04/28/23 18:59 06:59 18:59 Intake Total 610 240 Output Total 400 225 600 Balance 210 -225 -360 Intake: IV 20 Invasive Line 2 20 Oral 590 240 Output: Urine 400 225 600 Other: Voiding Method Urinal Urinal Urinal # Voids 1 1 # Bowel Movements 1 - Exam GENERAL EXAM: Alert, obese 72-year-old male, in a chair, on 3 L nasal cannula, comfortable in no apparent distress. HEAD: Normocephalic and atraumatic EYES: Normal reaction of pupils, equal size. NOSE: Clear with pink turbinates. THROAT: No erythema or exudates. NECK: No masses, no JVD. CHEST: No chest wall deformity. No crepitus or bruising LUNGS: Equal air entry with expiratory wheezes heard throughout. CVS: S1 and S2 normal with no audible murmur, irregular rhythm. No extra heart sounds ABDOMEN: Obese abdomen with umbilical hernia, no hepatosplenomegaly, active bowel sounds, no guarding or rigidity. SPINE: No scoliosis or deformity SKIN: No rashes CENTRAL NERVOUS SYSTEM: No focal deficits, tone is normal in all 4 extremities. EXTREMITIES: There is bilateral lower extremity mild nonpitting edema. No clubbing or cyanosis. Peripheral pulses are intact. - Labs CBC & Chem 7: 04/28/23 09:04/28/23 09:01 Labs: Abnormal Lab Results - Last 24 Hours (Table) 04/27/23 04/27/23 04/28/23 Range/Units : 20:21 05:56 RBC (4.30-5.90) m/uL Hgb (13.0-17.5) gm/dL Hct (39.0-53.0) % RDW (11.5-15.5) % Neutrophils # (1.3-7.7) k/uL Lymphocytes # (1.0-4.8) k/uL Sodium (137-145) mmol/L Chloride (98-107) mmol/L Carbon Dioxide (22-30) mmol/L BUN (9-20) mg/dL Glucose (74-99) mg/dL POC Glucose (mg/dL) 159 H 255 H 183 H (70-110) mg/dL Calcium (8.4-10.2) mg/dL 04/28/23 04/28/23 04/28/23 Range/Units 09: 09: 11:33 RBC 4.19 L (4.30-5.90) m/uL Hgb 12.0 L (13.0-17.5) gm/dL Hct 36.6 L (39.0-53.0) % RDW 17.4 H (11.5-15.5) % Neutrophils # 7.8 H (1.3-7.7) k/uL Lymphocytes # 0.4 L (1.0-4.8) k/uL Sodium 133 L (137-145) mmol/L Chloride 89 L (98-107) mmol/L Carbon Dioxide 35 H (22-30) mmol/L BUN 22 H (9-20) mg/dL Glucose 135 H (74-99) mg/dL POC Glucose (mg/dL) 196 H (70-110) mg/dL Calcium 8.2 L (8.4-10.2) mg/dL Assessment and Plan Assessment: Acute on chronic hypoxemic respiratory failure likely multifactorial related to a combination of acute COPD exacerbation and mild systolic CHF exacerbation. Currently on 3 L/m nasal cannula. Admission chest x-ray shows cardiomegaly, pulmonary vascular congestion, and bilateral pleural effusions. NT proBNP only mildly elevated at 574. Remains on IV diuretics Severe oxygen and steroid dependent COPD Chronic atrial fibrillation, with controlled ventricular rate, normally antico agulated on Eliquis Essential hypertension Hyperlipidemia Diabetes mellitus type 2, complicated with diabetic neuropathy Morbid obesity with a BMI of 31 kg/m Chronic pain Chronic nicotine dependence Plan: The patient was seen and evaluated Medications and labs reviewed Continue the current treatment plan Follow-up chest x-ray in a.m. We will continue to follow I have personally seen and examined the patient, performed the documentation and the assessment and plan as written. Number of minutes spent on the visit: 10.
--- NOTE | 2023-04-28 13:50 | P.PN ---
Subjective Progress Note Date: 04/28/23 History of present illness: This is a 72-year-old male with a past medical history significant for chronic atrial fibrillation on eliquis, COPD and chronic hypoxic respiratory failure with home oxygen use, hypertension, hyperlipidemia, diabetes, active tobacco use and dependence. 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 We have been asked to evaluate the patient for heart failure. Patient states that he has had increasing shortness of breath. He states he is always short of breath due to his COPD. He complains of cough with sputum production. He denies any fever or chills. He denies having any lower extremity edema. He denies any weight change. He has no history of cardiac surgery/stent. Patient denies having any chest pain. EKG atrial fibrillation with ventricular rate of 85 bpm Chest x-ray: Cardiomegaly, pulmonary vascular congestion bilateral pleural effusions Troponin negative 3. WBC 13.7, hemoglobin 12.9, platelet count 193. Sodium 135, potassium 4, BUN 12 and creatinine 0.64. The CO2 38. Liver function tests normal. ProBNP 574. Home cardiac medications: Amlodipine 10 mg daily, eliquis 5 mg twice daily, Lipitor 40 mg at bedtime, Farxiga 10 mg daily, Lasix 40 mg twice daily, hydralazine 25 mg twice daily, Lopressor 50 mg twice daily, nicotine patch daily, Aldactone 25 mg daily. Echocardiogram 01/03/2023 reveals EF 40-45%, moderate concentric left atrial hypertrophy, moderate pulmonary hypertension, mildly dilated right ventricle. 04/27 Patient is seen today in follow-up. Patient is complaining of some left rib pain with deep breathing. Later, patient complained to his nurse that he had some sternal chest pain. He continues to have a small amount of lower extremity edema. He is on IV Lasix at 40 every 12 hours. Patient's negative fluid balance of 960. Weight is down 1-1/2 kg. Repeat blood work reveals sodium 132, potassium 4, BUN 21 creatinine 0.76. Troponin negative 1. 04/28 Patient states that his breathing is better. He continues to have wheezing. He is concerned about his chest pain on the lower lateral left ribs and pulmonary has ordered x-rays to assess for fracture as patient states he had a fall about 10 days ago. Patient has been continued on IV Lasix 40 mg every 12 hours. Blood pressure 99/54, heart rate in the 70s and 80s. Pulse ox 97% on 4 L. Repeat blood work reveals hemoglobin of 12. Sodium 133, BUN 23, creatinine 0.7. Physical examination: Gen: This is a 72-year-old male. He is resting in chair and appears to be comfortable at rest. VS: reviewed HEENT: Head is atraumatic, normocephalic. Pupils equal, round. Sclerae is anicteric. NECK: Supple. No JVD. LUNGS: Bilateral expiratory wheeze. No intercostal retractions. HEART: Regular rate and rhythm. No murmur. ABDOMEN: Soft No tenderness. EXTREMITIES: tr pedal edema, chronic color changes. NEUROLOGICAL: Patient is awake, alert and oriented x3. Assessment: Acute on chronic systolic heart failure Acute COPD Chronic atrial fibrillation on eliquis Hypertension Hyperlipidemia Diabetes Active tobacco use and dependence Plan: Continue current cardiac medications Continue IV Lasix 40 mg every 12 hours for 1 more day plan to transition to oral tomorrow No need to repeat echocardiogram as this was done in December Monitor I&O, daily weights, electrolytes and renal function Further recommendations to follow based upon clinical course Nurse practitioner note has been reviewed, I agree with documented findings and plan of care. Patient was seen and examined. Objective - Vital Signs Vital signs: Vital Signs Temp 96.8 F L 04/28/23 08:00 Pulse 100 04/28/23 09:13 Resp 20 04/28/23 08:00 BP 117/68 04/28/23 08:00 Pulse Ox 94 L 04/28/23 08:00 FiO2 Intake & Output 04/27/23 04/28/23 04/28/23 18:59 06:59 18:59 Intake Total 610 240 Output Total 400 225 600 Balance 210 -225 -360 Intake: IV 20 Invasive Line 2 20 Oral 590 240 Output: Urine 400 225 600 Other: Voiding Method Urinal Urinal Urinal # Voids 1 1 # Bowel Movements 1 - Labs CBC & Chem 7: 04/28/23 09:01 04/28/23 09:01 Labs: Abnormal Lab Results - Last 24 Hours (Table) 04/27/23 04/27/23 04/27/23 Range/Units 11:17 16:23 20:21 RBC (4.30-5.90) m/uL Hgb (13.0-17.5) gm/dL Hct (39.0-53.0) % RDW (11.5-15.5) % Neutrophils # (1.3-7.7) k/uL Lymphocytes # (1.0-4.8) k/uL Sodium (137-145) mmol/L Chloride (98-107) mmol/L Carbon Dioxide (22-30) mmol/L BUN (9-20) mg/dL Glucose (74-99) mg/dL POC Glucose (mg/dL) 199 H 159 H 255 H (70-110) mg/dL Calcium (8.4-10.2) mg/dL 04/28/23 04/28/23 04/28/23 Range/Units 05:56 09:01 09:01 RBC 4.19 L (4.30-5.90) m/uL Hgb 12.0 L (13.0-17.5) gm/dL Hct 36.6 L (39.0-53.0) % RDW 17.4 H (11.5-15.5) % Neutrophils # 7.8 H (1.3-7.7) k/uL Lymphocytes # 0.4 L (1.0-4.8) k/uL Sodium 133 L (137-145) mmol/L Chloride 89 L (98-107) mmol/L Carbon Dioxide 35 H (22-30) mmol/L BUN 22 H (9-20) mg/dL Glucose 135 H (74-99) mg/dL POC Glucose (mg/dL) 183 H (70-110) mg/dL Calcium 8.2 L (8.4-10.2) mg/dL
--- NOTE | 2023-04-28 15:14 | XR ---
EXAMINATION TYPE: XR ribs LT DATE OF EXAM: 04/28/2023 3:02 PM INDICATION: Patient age:Male; 72 years old; Reason for study: left sided pain; PHH. COMPARISON: Chest radiograph 04/25/2023 TECHNIQUE: Frontal and oblique views of the left ribs FINDINGS: The ribs have a normal appearance. No evidence of fracture. Overall, the lungs are clear. Atherosclerotic calcification of the aorta. The cardiac silhouette is normal in size. The remaining osseous structures are intact. Degenerative changes of the spine. IMPRESSION: No acute displaced rib fracture identified.
[2023-04-28 16:23] LABS: Glucose,Whole Blood 125 mg/dL (70-110)
[2023-04-28 20:04] LABS: Glucose,Whole Blood 192 mg/dL (70-110)
--- NOTE | 2023-04-28 20:04 | P.PN ---
Subjective This is a pleasant 71 years old male with multiple medical problems including COPD, diabetes mellitus, hypertension, hyperlipidemia, osteoarthritis, GERD, diabetic neuropathy, chronic back pain, joint disease and falls He was recently in the hospital for COPD exacerbation and bilateral lower extremity edema and chronic CHF Patient presents because of dyspnea, worsening over one week with cough and productive phlegm. Also his complaining of from left lower rib pain and tenderness. He states that he fell about 2 days ago without syncope and he fell on his bottom but he cannot remember if he hurt his chest or anywhere else. Patient denies abdominal pain vomiting diarrhea. No urinary complaints. No headache dizziness weakness or numbness. He quit smoking 1 week ago and states is done with smoking and he really wants to quit. He denies alcohol or illicit drugs. He is on 4 L oxygen at home Vitals stable and afebrile, mildly tachypneic As unremarkable CBC, INR, BMP, liver enzymes, troponin 3 are negative. ProBNP 574. Chest x-ray: Cardio megaly with pulmonary vascular congestion and bilateral pleural effusions correlate for CHF I reviewed the chest x-ray and agree EKG showing A. fib with rate controlled at 90, no significant ST-T changes. Patient currently on IV Solu-Medrol 60 mg and IV Lasix 40 mg 04/27/2023 Patient remains short of breath and extensively wheezing, he has loud wheezing. His oxygen saturation is the same but he hasn't mild respiratory distress He remains on IV Solu-Medrol 60 mg IV Lasix 40 mg at home dose of Eliquis 5 mg. Patient complains from rib cage pain from coughing, Robitussin DM ordered, discontinue morphine. Continue [place]. Discussed with patient and he agrees Discussed with staff 04/28/2023 Patient was admitted with CHF and COPD Remains on ampicillin withdrawal on IV Lasix He is improving slowly and gradually every day, today he is less wheezing. Oxygen saturation is a stable and he is at 4 L/m. A portable tank will be delivered for him at the time of discharge he can take with him home. I discussed with him the importance of follow-up outpatient with his physicians, he told me he does not have transportation and Dr. Chen he comes to visit him. I counseled him to call his medical insurance provider to help him with transportation. Also social media project manager on the case and introduced him to pace program which he is interested in. Bladder scan was checked and was negative PT/OT recommended SA are but patient declines therefore it C is ordered Possible discharge in 24-48 hours if he keeps improving Objective - Vital Signs Vital signs: Vital Signs Temp 98 F 04/28/23 12:00 Pulse 86 04/28/23 12:15 Resp 18 04/28/23 12:00 BP 99/54 04/28/23 12:00 Pulse Ox 97 04/28/23 12:00 FiO2 Intake & Output 04/27/23 04/28/23 04/28/23 18:59 06:59 18:59 Intake Total 610 860 Output Total 400 225 600 Balance 210 -225 260 Intake: IV 20 Invasive Line 2 20 Oral 590 860 Output: Urine 400 225 600 Other: Voiding Method Urinal Urinal Urinal # Voids 1 1 # Bowel Movements 1 - Exam GENERAL: The patient is alert and oriented x3, not in any acute distress. Well developed, well nourished. HEENT: Pupils are round and equally reacting to light. EOMI. No scleral icterus. No conjunctival pallor. Normocephalic, atraumatic. No pharyngeal erythema. No thyromegaly. CARDIOVASCULAR: S1 and S2 present. No murmurs, rubs, or gallops. -PULMONARY: Chest is clear to auscultation, bilateral extensive expiratory wheezing , no crackles. ABDOMEN: Soft, nontender, nondistended, normoactive bowel sounds. No palpable organomegaly. MUSCULOSKELETAL: No joint swelling or deformity. EXTREMITIES: No cyanosis, clubbing, or pedal edema. NEUROLOGICAL: Gross neurological examination did not reveal any focal deficits. SKIN: No rashes. no petechiae. - Labs CBC & Chem 7: 04/28/23 09:01 04/28/23 09:01 Labs: Abnormal Lab Results - Last 24 Hours (Table) 04/27/23 04/27/23 04/28/23 Range/Units 16: 20:21 05:56 RBC (4.30-5.90) m/uL Hgb (13.0-17.5) gm/dL Hct (39.0-53.0) % RDW (11.5-15.5) % Neutrophils # (1.3-7.7) k/uL Lymphocytes # (1.0-4.8) k/uL Sodium (137-145) mmol/L Chloride (98-107) mmol/L Carbon Dioxide (22-30) mmol/L BUN (9-20) mg/dL Glucose (74-99) mg/dL POC Glucose (mg/dL) 159 H 255 H 183 H (70-110) mg/dL Calcium (8.4-10.2) mg/dL 04/28/23 04/28/23 04/28/23 Range/Units 09:01 09:01 11:33 RBC 4.19 L (4.30-5.90) m/uL Hgb 12.0 L (13.0-17.5) gm/dL Hct 36.6 L (39.0-53.0) % RDW 17.4 H (11.5-15.5) % Neutrophils # 7.8 H (1.3-7.7) k/uL Lymphocytes # 0.4 L (1.0-4.8) k/uL Sodium 133 L (137-145) mmol/L Chloride 89 L (98-107) mmol/L Carbon Dioxide 35 H (22-30) mmol/L BUN 22 H (9-20) mg/dL Glucose 135 H (74-99) mg/dL POC Glucose (mg/dL) 196 H (70-110) mg/dL Calcium 8.2 L (8.4-10.2) mg/dL Assessment and Plan Assessment: Acute on chronic diastolic CHF Bilateral pitting leg edema, acute on chronic chronic atrial fibrillation on Eliquis and the rate is controlled on admission Chronic hypoxic respiratory failure with related to her oxygen via nasal cannula Diabetes mellitus Hypertension Hyperlipidemia History of osteoarthritis History of GERD Diabetic neuropathy of feet and hands Chronic back pain Polyarthralgia History of falls History of anxiety and depression, not in activation Obese with BMI 38.5 Plan: Continue with IV Solu-Medrol Continue with IV Lasix Pulmonary consult Labs and medication were reviewed.. Continue same treatment. Continue with symptomatic treatment. Resume home medication. Monitor labs and vitals. DVT and GI prophylaxis. Further recommendations as per clinical course of the patient DVT prophylaxis: Eliquis GI Prophylaxis: Pepcid PT/OT: Pending Prognosis is guarded
[2023-04-28] MEDS: MELATONIN 3 MG TABLET PO PRN (21:31)
[2023-04-28] MEDS: ATORVASTATIN 40 MG TAB PO SCH (21:31)
[2023-04-29] MEDS: guaiFENesin-DM 100-10MG/5ML 10 ML CUP PO SCH ×3 (01:08→12:30)
[2023-04-29] MEDS: methylPREDNISolone SOD SUCCI 125 MG/2 ML VIAL IV SCH ×3 (01:10→14:09)
[2023-04-29] MEDS: HYDROcodone/APAP 10-325MG 1 EACH TAB PO PRN ×3 (04:37→17:16)
[2023-04-29 05:50] LABS: Glucose,Whole Blood 169 mg/dL (70-110)
[2023-04-29] MEDS: INSULIN ASPART (NovoLOG) 100 UNIT/ML VIAL SQ SCH ×2 (05:54→14:10)
[2023-04-29] MEDS: metFORMIN 500 MG TAB PO SCH (06:28)
[2023-04-29] MEDS: SYMBICORT 160-4.5 MCG INHALER INHALATION SCH (07:26)
[2023-04-29] MEDS: IPRATROPIUM-ALBUTEROL 3 ML NEB INHALATION SCH ×3 (07:26→15:46)
[2023-04-29 08:50] VITALS: TEMP 97.7
[2023-04-29] MEDS: ESCITALOPRAM 5 MG TAB PO SCH (08:51)
[2023-04-29] MEDS: FAMOTIDINE 20 MG/2 ML VIAL IV SCH (08:51)
[2023-04-29] MEDS: DAPAGLIFLOZIN PROPANEDIOL 10 MG TABLET PO SCH (08:51)
[2023-04-29] MEDS: FUROSEMIDE 10 MG/ML 4 ML VIAL IV SCH (08:51)
[2023-04-29] MEDS: DULoxetine HCL 30 MG CAPSULE.DR PO SCH (08:52)
[2023-04-29] MEDS: SPIRONOLACTONE 25 MG TAB PO SCH (08:52)
[2023-04-29] MEDS: METOPROLOL TARTRATE 50 MG TAB PO SCH (08:52)
[2023-04-29] MEDS: TAMSULOSIN 0.4 MG CAP.ER.24H PO SCH (08:52)
[2023-04-29] MEDS: hydrALAZINE HCL 25 MG TAB PO SCH (08:52)
[2023-04-29] MEDS: amLODIPine 10 MG TAB PO SCH (08:52)
[2023-04-29] MEDS: APIXABAN 5 MG TAB PO SCH (08:52)
[2023-04-29] MEDS: GABAPENTIN 100 MG CAP PO SCH ×2 (08:52→15:53)
--- NOTE | 2023-04-29 10:37 | XR ---
EXAMINATION TYPE: XR chest 1V portable DATE OF EXAM: 04/29/2023 COMPARISON: 04/25/2023 INDICATION: CHF TECHNIQUE: Single frontal view of the chest is obtained. FINDINGS: The heart size is normal. The pulmonary vasculature is normal. The lungs are clear. IMPRESSION: 1. No acute pulmonary process.
[2023-04-29 11:10] LABS: Glucose,Whole Blood 140 mg/dL (70-110)
--- NOTE | 2023-04-29 11:48 | P.PN ---
Subjective Progress Note Date: 04/29/23 I am seeing this patient in new consultation today 04/26/2023 likely for combination of acute COPD exacerbation and mild CHF exacerbation. Patient is a 72-year-old white male with past medical history significant for severe COPD, chronic oxygen dependence on 3 L/m nasal cannula, congestive heart failure, chronic atrial fibrillation, diabetes mellitus, hyperlipidemia, hypertension, obesity, GERD, and is a chronic smoker. He does not follow with pulmonary in the outpatient setting. His PCP is Dr. Elver Santiago. Patient presented to emergency room yesterday afternoon complaining of shortness of breath along with a persistent cough that started approximately 24 hours prior to arrival. Patient states that the cough is occasionally productive. Patient denies any fever, chills, chest pain, hemoptysis. He does report occasional heart palpitations, chronic lower extremity swelling, and orthopnea when lying flat. Patient states that he also fell yesterday on his left side. He denies hitting his head. There is some obvious tenderness when palpating the left back and left lateral chest. There is no deformity or crepitus. There is a small amount of bruising in the left flank area, which is nontender and soft. He is currently sitting up in bed, on 4 L/m nasal cannula, in no acute distress. Chest x-ray on arrival showed cardiomegaly, pulmonary vascular congestion, and small to moderate bilateral pleural effusions. No obvious displaced rib fractures. NT proBNP was only mildly elevated at 574. Troponins less than 0.012. Patient has been started on Lasix 40 mg twice a day. CBC on arrival was unremarkable. BMP on arrival shows a sodium 132, potassium 4.9, chloride 92, serum bicarbonate 35, BUN 9, creatinine 0.58, glucose 92. No IV maintenance fluids. ECG on admission shows atrial fibrillation with controlled ventricular rate and no obvious acute ischemic changes. Patient appears hemodynamicly stable, and is being monitored on the cardiac stepdown unit. The patient is seen today 04/27/2023 in follow-up on the selective care unit. He is currently sitting up at the bedside. Awake and alert in no acute distress. 18 O2 saturations in the 90s on 3 L/m per nasal cannula. He is still somewhat bronchospastic and wheezing. Diminished. Procalcitonin was 0.07. White count 8.8. Hemoglobin 12.1. Platelets 200,000. Sodium 132. Potassium 4.0. Bicarb 36. BUN 21. Creatinine 0.76. Glucose 163. He is continued on DuoNeb inhalations, Symbicort, Solu-Medrol. Remains on IV diuretics. NicoDerm patch in place. Currently in a -1 L balance. The patient is seen today 04/28/2023 in follow-up on the selective care unit. He is currently sitting up in a chair. Awake and alert in no acute distress. No worsening shortness of breath, cough or congestion. He is maintaining O2 saturations in the 90s on 4 L/m per nasal cannula. His main complaints are generalized aches and pains. White count 8.7. Hemoglobin 12.0. Platelets 225. Sodium 133. Potassium 4.0. Bicarb 35. BUN 22. Creatinine 0.70. Glucose 135. He remains on DuoNeb inhalations, Symbicort, Solu-Medrol. Remains on IV diuretics. NicoDerm patch in place. Eliquis for anticoagulation. The patient is seen today 04/29/2023 in follow-up on the selective care unit. He is awake and alert in no acute distress. Sitting up in a chair at the bedside. Denies any worsening shortness of breath, cough or congestion. He continues to request excessive amounts of pain medication and is agitated when h e's not receiving it. He is continued on DuoNeb inhalations, Symbicort, IV Solu-Medrol. NicoDerm patch in place. Anticoagulated with Eliquis. NicoDerm patch in place. Continued on oral diuretics. Follow-up chest x-ray continues to show no acute pulmonary process. Blood glucose 140. Objective - Vital Signs Vital signs: Vital Signs Temp 97.7 F 04/29/23 08:50 Pulse 83 04/29/23 08:50 Resp 18 04/29/23 08:50 BP 122/64 04/29/23 08:50 Pulse Ox 98 04/29/23 08:50 FiO2 Intake & Output 04/28/23 04/29/23 04/29/23 18:59 06:59 18:59 Intake Total 1400 500 490 Output Total 1000 1450 Balance 400 -950 490 Weight 104.3 kg Intake: IV 10 Invasive Line 3 10 Oral 1400 500 480 Output: Urine 1000 1450 Other: Voiding Method Urinal Urinal Urinal # Voids 2 # Bowel Movements 1 - Exam GENERAL EXAM: Alert, somewhat agitated 72-year-old male, in a chair, on 3 L nasal cannula, comfortable in no apparent distress. HEAD: Normocephalic and atraumatic EYES: Normal reaction of pupils, equal size. NOSE: Clear with pink turbinates. THROAT: No erythema or exudates. NECK: No masses, no JVD. CHEST: No chest wall deformity. No crepitus or bruising LUNGS: Equal air entry with no rhonchi, wheeze or crackles. Diminished. CVS: S1 and S2 normal with no audible murmur, irregular rhythm. No extra heart sounds ABDOMEN: Obese abdomen with umbilical hernia, no hepatosplenomegaly, active bowel sounds, no guarding or rigidity. SPINE: No scoliosis or deformity SKIN: No rashes CENTRAL NERVOUS SYSTEM: No focal deficits, tone is normal in all 4 extremities. EXTREMITIES: There is bilateral lower extremity mild nonpitting edema. No clubbing or cyanosis. Peripheral pulses are intact. - Labs CBC & Chem 7: 04/28/23 09:01 04/28/23 09:01 Labs: Abnormal Lab Results - Last 24 Hours (Table) 04/28/23 04/28/23 04/29/23 Range/Units 16:22 20:02 05:47 POC Glucose (mg/dL) 125 H 192 H 169 H (70-110) mg/dL 04/29/23 Range/Units 11:08 POC Glucose (mg/dL) 140 H (70-110) mg/dL Assessment and Plan Assessment: Acute on chronic hypoxemic respiratory failure likely multifactorial related to a combination of acute COPD exacerbation and mild systolic CHF exacerbation. Currently on 3 L/m nasal cannula. Admission chest x-ray shows cardiomegaly, pulmonary vascular congestion, and bilateral pleural effusions. NT proBNP only mildly elevated at 574. Remains on diuretics Severe oxygen and steroid dependent COPD Chronic atrial fibrillation, with controlled ventricular rate, normally anticoagulated on Eliquis Essential hypertension Hyperlipidemia Diabetes mellitus type 2, complicated with diabetic neuropathy Morbid obesity with a BMI of 31 kg/m Chronic pain syndrome Chronic nicotine dependence Plan: The patient was seen and evaluated Medications and chest x-ray reviewed Continue the current treatment plan Increase his activity as tolerated We will continue to follow I have personally seen and examined the patient, performed the documentation and the assessment and plan as written. Number of minutes spent on the visit: 10.
--- NOTE | 2023-04-29 12:44 | P.PN ---
Subjective This is a pleasant 71 years old male with multiple medical problems including COPD, diabetes mellitus, hypertension, hyperlipidemia, osteoarthritis, GERD, diabetic neuropathy, chronic back pain, joint disease and falls He was recently in the hospital for COPD exacerbation and bilateral lower extremity edema and chronic CHF Patient presents because of dyspnea, worsening over one week with cough and productive phlegm. Also his complaining of from left lower rib pain and tenderness. He states that he fell about 2 days ago without syncope and he fell on his bottom but he cannot remember if he hurt his chest or anywhere else. Patient denies abdominal pain vomiting diarrhea. No urinary complaints. No headache dizziness weakness or numbness. He quit smoking 1 week ago and states is done with smoking and he really wants to quit. He denies alcohol or illicit drugs. He is on 4 L oxygen at home Vitals stable and afebrile, mildly tachypneic As unremarkable CBC, INR, BMP, liver enzymes, troponin 3 are negative. ProBNP 574. Chest x-ray: Cardio megaly with pulmonary vascular congestion and bilateral pleural effusions correlate for CHF I reviewed the chest x-ray and agree EKG showing A. fib with rate controlled at 90, no significant ST-T changes. Patient currently on IV Solu-Medrol 60 mg and IV Lasix 40 mg 04/27/2023 Patient remains short of breath and extensively wheezing, he has loud wheezing. His oxygen saturation is the same but he hasn't mild respiratory distress He remains on IV Solu-Medrol 60 mg IV Lasix 40 mg at home dose of Eliquis 5 mg. Patient complains from rib cage pain from coughing, Robitussin DM ordered, discontinue morphine. Continue [place]. Discussed with patient and he agrees Discussed with staff 04/28/2023 Patient was admitted with CHF and COPD Remains on ampicillin withdrawal on IV Lasix He is improving slowly and gradually every day, today he is less wheezing. Oxygen saturation is a stable and he is at 4 L/m. A portable tank will be delivered for him at the time of discharge he can take with him home. I discussed with him the importance of follow-up outpatient with his physicians, he told me he does not have transportation and Dr. Chen he comes to visit him. I counseled him to call his medical insurance provider to help him with transportation. Also psychologist social on the case and introduced him to pace program which he is interested in. Bladder scan was checked and was negative PT/OT recommended SA are but patient declines therefore it [facility] is ordered Possible discharge in 24-48 hours if he keeps improving 04/29/2023 Patient is awake and alert and is able to walk to the bathroom by himself. He still has wheezing distal 42 oxygen via nasal cannula which is his home dose. He still needs IV steroids, pulmonary team followed closely. Repeat chest x-ray showed no acute process. X-ray is negative for fracture. Glucose controlled. His IV Lasix wished oral dose today. Patient does not qualify for subacute rehab, patient informed and he agrees to go home with home care upon discharge. Objective - Vital Signs Vital signs: Vital Signs Temp 97.7 F 04/29/23 08:50 Pulse 87 04/29/23 12:11 Resp 18 04/29/23 08:50 BP 122/64 04/29/23 08:50 Pulse Ox 98 04/29/23 08:50 FiO2 Intake & Output 04/28/23 04/29/23 04/29/23 18:59 06:59 18:59 Intake Total 1400 500 490 Output Total 1000 1450 Balance 400 -950 490 Weight 104.3 kg Intake: IV 10 Invasive Line 3 10 Oral 1400 500 480 Output: Urine 1000 1450 Other: Voiding Method Urinal Urinal Urinal # Voids 2 # Bowel Movements 1 - Exam GENERAL: The patient is alert and oriented x3, not in any acute distress. Well developed, well nourished. HEENT: Pupils are round and equally reacting to light. EOMI. No scleral icterus. No conjunctival pallor. Normocephalic, atraumatic. No pharyngeal erythema. No thyromegaly. CARDIOVASCULAR: S1 and S2 present. No murmurs, rubs, or gallops. -PULMONARY: Chest is clear to auscultation, bilateral extensive expiratory wheezing , no crackles. ABDOMEN: Soft, nontender, nondistended, normoactive bowel sounds. No palpable organomegaly. MUSCULOSKELETAL: No joint swelling or deformity. EXTREMITIES: No cyanosis, clubbing, or pedal edema. NEUROLOGICAL: Gross neurological examination did not reveal any focal deficits. SKIN: No rashes. no petechiae. - Labs CBC & Chem 7: 04/28/23 09:01 04/28/23 09:01 Labs: Abnormal Lab Results - Last 24 Hours (Table) 04/28/23 04/28/23 04/29/23 Range/Units 16:22 20:02 05:47 POC Glucose (mg/dL) 125 H 192 H 169 H (70-110) mg/dL 04/29/23 Range/Units 11:08 POC Glucose (mg/dL) 140 H (70-110) mg/dL Assessment and Plan Assessment: Acute on chronic diastolic CHF Bilateral pitting leg edema, acute on chronic chronic atrial fibrillation on Eliquis and the rate is controlled on admission Chronic hypoxic respiratory failure with related to her oxygen via nasal cannula Diabetes mellitus Hypertension Hyperlipidemia History of osteoarthritis History of GERD Diabetic neuropathy of feet and hands Chronic back pain Polyarthralgia History of falls History of anxiety and depression, not in activation Obese with BMI 38.5 Plan: Continue with IV Solu-Medrol Continue with IV Lasix Pulmonary consult Labs and medication were reviewed.. Continue same treatment. Continue with symptomatic treatment. Resume home medication. Monitor labs and vitals. DVT and GI prophylaxis. Further recommendations as per clinical course of the patient DVT prophylaxis: Eliquis GI Prophylaxis: Pepcid PT/OT: Pending Prognosis is guarded
--- NOTE | 2023-04-29 12:51 | P.PN ---
Subjective Progress Note Date: 04/29/23 History of present illness: This is a 72-year-old male with a past medical history significant for chronic atrial fibrillation on eliquis, COPD and chronic hypoxic respiratory failure with home oxygen use, hypertension, hyperlipidemia, diabetes, active tobacco use and dependence. Patient does not follow with a licensed psychologist director. We have been asked to evaluate the patient for heart failure. Patient states that he has had increasing shortness of breath. He states he is always short of breath due to his COPD. He complains of cough with sputum production. He denies any fever or chills. He denies having any lower extremity edema. He denies any weight change. He has no history of cardiac surgery/stent. Patient denies having any chest pain. EKG atrial fibrillation with ventricular rate of 85 bpm Chest x-ray: Cardiomegaly, pulmonary vascular congestion bilateral pleural effusions Troponin negative 3. WBC 13.7, hemoglobin 12.9, platelet count 193. Sodium 135, potassium 4, BUN 12 and creatinine 0.64. The CO2 38. Liver function tests normal. ProBNP 574. Home cardiac medications: Amlodipine 10 mg daily, eliquis 5 mg twice daily, Lipitor 40 mg at bedtime, Farxiga 10 mg daily, Lasix 40 mg twice daily, hydralazine 25 mg twice daily, Lopressor 50 mg twice daily, nicotine patch daily, Aldactone 25 mg daily. Echocardiogram 01/03/2023 reveals EF 40-45%, moderate concentric left atrial hypertrophy, moderate pulmonary hypertension, mildly dilated right ventricle. 04/27 Patient is seen today in follow-up. Patient is complaining of some left rib pain with deep breathing. Later, patient complained to his nurse that he had some sternal chest pain. He continues to have a small amount of lower extremity edema. He is on IV Lasix at 40 every 12 hours. Patient's negative fluid balance of 960. Weight is down 1-1/2 kg. Repeat blood work reveals sodium 132, potassium 4, BUN 21 creatinine 0.76. Troponin negative 1. 04/28 Patient states that his breathing is better. He continues to have wheezing. He is concerned about his chest pain on the lower lateral left ribs and pulmonary has ordered x-rays to assess for fracture as patient states he had a fall about 10 days ago. Patient has been continued on IV Lasix 40 mg every 12 hours. Blood pressure 99/54, heart rate in the 70s and 80s. Pulse ox 97% on 4 L. Repeat blood work reveals hemoglobin of 12. Sodium 133, BUN 23, creatinine 0.7. 04/29 Patient states that he is feeling rough today. He complains of pain in all of his joints. He thinks his breathing is not quite back to baseline. Patient is on IV Lasix 40 mg every 12 hours. Blood pressure 122/64, heart rate in the 80s, telemetry is atrial fibrillation rate controlled. Physical examination: Gen: This is a 72-year-old male. He is resting in chair and appears to be comfortable at rest. VS: reviewed HEENT: Head is atraumatic, normocephalic. Pupils equal, round. Sclerae is anicteric. NECK: Supple. No JVD. LUNGS: Bilateral expiratory wheeze. No intercostal retractions. HEART: Irregular rate and rhythm. No murmur. ABDOMEN: Soft No tenderness. EXTREMITIES: tr pedal edema, chronic color changes. NEUROLOGICAL: Patient is awake, alert and oriented x3. Assessment: Acute on chronic systolic heart failure Acute COPD Chronic atrial fibrillation on eliquis Hypertension Hyperlipidemia Diabetes Active tobacco use and dependence Plan: Continue current cardiac medications Transition IV Lasix to oral 40 mg twice daily No need to repeat echocardiogram as this was done in December Monitor I&O, daily weights, electrolytes and renal function Further recommendations to follow based upon clinical course Nurse practitioner note has been reviewed, I agree with documented findings and plan of care. Patient was seen and examined. Objective - Vital Signs Vital signs: Vital Signs Temp 97.7 F 04/29/23 08:50 Pulse 83 04/29/23 08:50 Resp 18 04/29/23 08:50 BP 122/64 04/29/23 08:50 Pulse Ox 98 04/29/23 08:50 FiO2 Intake & Output 04/28/23 04/29/23 04/29/23 18:59 06:59 18:59 Intake Total 1400 500 480 Output Total 1000 1450 Balance 400 -950 480 Weight 104.3 kg Intake: Oral 1400 500 480 Output: Urine 1000 1450 Other: Voiding Method Urinal Urinal # Voids 2 # Bowel Movements 1 - Labs CBC & Chem 7: 04/28/23 09:01 04/28/23 09:01 Labs: Abnormal Lab Results - Last 24 Hours (Table) 04/28/23 04/28/23 04/28/23 Range/Units 09:01 11:33 16:22 Sodium 133 L (137-145) mmol/L Chloride 89 L (98-107) mmol/L Carbon Dioxide 35 H (22-30) mmol/L BUN 22 H (9-20) mg/dL Glucose 135 H (74-99) mg/dL POC Glucose (mg/dL) 196 H 125 H (70-110) mg/dL Calcium 8.2 L (8.4-10.2) mg/dL 04/28/23 04/29/23 Range/Units 20:02 05:47 Sodium (137-145) mmol/L Chloride (98-107) mmol/L Carbon Dioxide (22-30) mmol/L BUN (9-20) mg/dL Glucose (74-99) mg/dL POC Glucose (mg/dL) 192 H 169 H (70-110) mg/dL Calcium (8.4-10.2) mg/dL
[2023-04-29 14:19] VITALS: BP 116/84; RESP 16
[2023-04-29 15:59] VITALS: PULSE 89
[2023-04-29] MEDS ORDERED: FUROSEMIDE 40 MG TAB PO SCH (16:00)
== END 2023-04-29 17:46 | disposition home health service (06) | DRG 291 ==
LOC: EC 15:57 → 3SCARD 20:24 → OBSVTOIN 20:24 → 3SCARD 20:36
PROVIDERS: ADMIT Hospitalist; ATTEND Hospitalist
DX: I11.0 Hypertensive heart disease with heart failure (principal); I50.43 Acute on chronic combined systolic (congestive) and diastolic (congestive) heart failure; J96.21 Acute and chronic respiratory failure with hypoxia; J44.1 Chronic obstructive pulmonary disease with (acute) exacerbation; I48.20 Chronic atrial fibrillation, unspecified; E66.01 Morbid (severe) obesity due to excess calories; Z68.38 Body mass index [BMI] 38.0-38.9, adult; I27.20 Pulmonary hypertension, unspecified; F41.9 Anxiety disorder, unspecified; F17.200 Nicotine dependence, unspecified, uncomplicated; F17.210 Nicotine dependence, cigarettes, uncomplicated; Z71.6 Tobacco abuse counseling; F32.A Depression, unspecified; E78.5 Hyperlipidemia, unspecified; Z79.84 Long term (current) use of oral hypoglycemic drugs; E11.40 Type 2 diabetes mellitus with diabetic neuropathy, unspecified; E11.42 Type 2 diabetes mellitus with diabetic polyneuropathy; K21.9 Gastro-esophageal reflux disease without esophagitis; J44.9 Chronic obstructive pulmonary disease, unspecified; M54.9 Dorsalgia, unspecified; M19.90 Unspecified osteoarthritis, unspecified site; G89.4 Chronic pain syndrome; W19.XXXA Unspecified fall, initial encounter; Y92.009 Unspecified place in unspecified non-institutional (private) residence as the place of occurrence of the external cause; Z79.01 Long term (current) use of anticoagulants; Z79.52 Long term (current) use of systemic steroids; Z79.51 Long term (current) use of inhaled steroids; Z79.899 Other long term (current) drug therapy; Z80.0 Family history of malignant neoplasm of digestive organs; Z87.01 Personal history of pneumonia (recurrent); Z82.49 Family history of ischemic heart disease and other diseases of the circulatory system; Z91.81 History of falling; Z99.81 Dependence on supplemental oxygen; Z88.1 Allergy status to other antibiotic agents; Z88.0 Allergy status to penicillin
CPT/HCPCS: 36415; 71045; 80048; 80053; 83036; 83605; 83735; 83880; 84100; 84145; 84484; 85025; 85610; 85730; 93005; 94640; 96374; 96375; 99285

== ENCOUNTER 2023-06-09 20:18 | Inpatient (IN) | payer MEDICARE, OTHER ==
[2023-06-09] MEDS ORDERED: IPRATROPIUM-ALBUTEROL 3 ML NEB INHALATION STA (20:44)
[2023-06-09] MEDS ORDERED: methylPREDNISolone SOD SUCCI 125 MG/2 ML VIAL IV STA (20:44)
[2023-06-09] MEDS ORDERED: SODIUM CHLORIDE 0.9% 500 ML 500 ML IV STA (21:03)
[2023-06-09 21:12] LABS: Anisocytosis Slight; Basophils % (A) 0 %; Eosinophils % (A) 0 %; HCT 38.1 % (39.0-53.0); HGB 12.2 gm/dL (13.0-17.5); Hypochromasia Slight; Lymphocytes # (A) 0.4 k/uL (1.0-4.8); Lymphocytes % (A) 4 %; MCH 28.2 pg (25.0-35.0); MCV 87.9 fL (80.0-100.0); Mean Platelet Volume 7.6; Monocytes # (A) 0.3 k/uL (0-1.0); Monocytes % (A) 3 %; Neutrophils # (A) 8.6 k/uL (1.3-7.7); Neutrophils % (A) 91 %; Platelet Count 208 k/uL (150-450); RBC 4.34 m/uL (4.30-5.90); RDW 17.9 % (11.5-15.5); WBC 9.5 k/uL (3.8-10.6)
[2023-06-09] MEDS ORDERED: HYDROcodone/APAP 5-325MG 1 EACH TAB PO STA (21:16)
[2023-06-09 21:21] LABS: INR 0.9 (<1.2); Partial Thromboplastin Time 23.9 sec (22.0-30.0)
[2023-06-09] MEDS ORDERED: ALBUTEROL HFA INHALER INHALATION STA (21:26)
--- NOTE | 2023-06-09 21:26 | XR ---
EXAMINATION TYPE: XR chest 2V DATE OF EXAM: 06/09/2023 COMPARISON: 04/29/2023 HISTORY: 72 year-old male shortness of breath, difficulty breathing TECHNIQUE: AP and lateral views FINDINGS: Heart mildly enlarged. Diffuse interstitial opacity. Patchy posterior basilar opacity. IMPRESSION: 1. Mild cardiomegaly with diffuse interstitial changes. Correlate for CHF with pulmonary vascular con gestion. 2. Posterior basilar atelectasis versus patchy pulmonary edema or infiltrate.
[2023-06-09 21:27] LABS: ALT 24 U/L (4-49); AST 23 U/L (17-59); African American GFR (CKD) >90 (>60 ml/min/1.73 sqM); Albumin 3.1 g/dL (3.5-5.0); Alkaline Phosphatase 55 U/L (38-126); Anion Gap 6 mmol/L; Blood Urea Nitrogen 22 mg/dL (9-20); Carbon Dioxide 36 mmol/L (22-30); Chloride 90 mmol/L (98-107); Glucose 235 mg/dL (74-99); Magnesium 1.8 mg/dL (1.6-2.3); Non-African American GFR(CKD) >90 (>60 ml/min/1.73 sqM); Potassium 4.1 mmol/L (3.5-5.1); Sodium 132 mmol/L (137-145); Total Bilirubin 0.8 mg/dL (0.2-1.3); Total Protein 5.4 g/dL (6.3-8.2)
[2023-06-09 21:35] LABS: NT-Pro-B-Type Natriuretic Pept 429 pg/mL
[2023-06-09 21:54] LABS: Appearance,Urine Clear (Clear); Bilirubin,Urine Negative (Negative); Blood,Urine Negative (Negative); Color,Urine Colorless; Glucose,Urine (UA) 4+ (Negative); Ketones,Urine Negative (Negative); Leukocyte Esterase,Urine Negative (Negative); Nitrite,Urine Negative (Negative); PH, Urine 5.5 (5.0-8.0); Protein,Urine Negative (Negative); Specific Gravity,Urine 1.018 (1.001-1.035); Urobilinogen,Urine <2.0 mg/dL (<2.0)
[2023-06-09] MEDS ORDERED: NALOXONE 0.4 MG/ML 1 ML VIAL IV PRN (22:38)
[2023-06-09] MEDS ORDERED: ACETAMINOPHEN TAB 325 MG TAB PO PRN (22:39)
[2023-06-09] MEDS ORDERED: ALBUTEROL HFA INHALER INHALATION PRN (22:39)
[2023-06-09] MEDS ORDERED: SODIUM CHLORIDE 0.9% 1,000 ML IV SCH (22:45)
--- NOTE | 2023-06-09 22:53 | ED ---
General Adult HPI - General Chief complaint: Shortness of Breath Stated complaint: SOB Time Seen by Provider: 06/09/23 20:32 Source: patient, EMS, RN notes reviewed, old records reviewed Mode of arrival: EMS Limitations: no limitations - History of Present Illness Initial comments: Patient is a 72-year-old male who presents emergency Department complaining complaining of shortness of breath, weakness, fatigue, decreased appetite. Has a history of chronic hypoxic respiratory failure on 4 L nasal cannula oxygen, COPD, CHF, A. fib on blood thinners. States he lives by himself. Has been having breakthrough body aches pains as well as just generalized fatigue and feels ill. He was evaluated at [facility] where he was diagnosed with an sent home. Denies any chest pain, shortness of breath, abdominal pain, nausea, vomiting. Denies any diarrhea. States he just feels ill and has leg pain. Presents for further evaluation at this time. Is concerned as he lives at home alone. - Related Data Home Medications Medication Instructions Recorded Confirmed Albuterol Nebulized [Ventolin 2.5 mg INHALATION RT-Q6H PRN 05/08/20 06/09/23 Nebulized] Ipratropium-Albuterol Nebulize 3 ml INHALATION RT-Q6H PRN 05/02/21 06/09/23 [Duoneb 0.5 mg-3 mg/3 ml Soln] Tamsulosin [Flomax] 0.4 mg PO DAILY 12/07/21 06/09/23 Albuterol Sulfate [Proair Hfa] 2 puff INHALATION RT-Q6H PRN 02/18/22 06/09/23 Fluticasone Nasal [place] [Flonase 1 spr EA NOSTRIL Q12H PRN 02/18/22 06/09/23 Nasal [place]] Theophylline Anhydrous 400 mg PO DAILY 02/18/22 06/09/23 [Theophylline ER] Escitalopram [Lexapro] 5 mg PO DAILY 08/29/22 06/09/23 Omeprazole 40 mg PO DAILY 08/29/22 06/09/23 Atorvastatin Calcium [Lipitor] 40 mg PO HS 12/31/22 06/09/23 DULoxetine HCL [Cymbalta] 30 mg PO DAILY 12/31/22 06/09/23 Fluticasone/Vilanterol [Breo 1 puff INHALATION RT-DAILY 12/31/22 06/09/23 Ellipta 100-25 Mcg Inhaler] Budesonide-Formot 160-4.5 Mcg 2 puff INHALATION RT-BID 02/11/23 06/09/23 [Symbicort 160-4.5 Mcg Inhaler] Nicotine 21Mg/24Hr Patch [Habitrol] 1 patch TRANSDERM DAILY PRN 04/25/2305/14 Potassium Chloride ER [K-Dur 10] 10 meq PO DAILY 04/25/23 06/09/23 amLODIPine [Norvasc] 10 mg PO DAILY 04/25/23 06/09/23 hydrALAZINE HCL [Apresoline] 25 mg PO BID 04/25/23 06/09/23 predniSONE 5 mg PO DIRECTED 04/25/23 06/09/23 HYDROcodone/APAP 10-325MG [[place] 1 tab PO Q6HR PRN 06/09/23 06/09/23 10-325] Previous Rx's Medication Instructions Recorded Apixaban [Eliquis] 5 mg PO BID #60 tab 07/08/20 Metoprolol Tartrate [Lopressor] 50 mg PO BID tab 09/07/22 metFORMIN HCL [Glucophage] 500 mg PO BID tab 09/07/22 Melatonin 6 mg PO HS PRN 10 Days #20 tab 11/29/22 Spironolactone [Aldactone] 25 mg PO DAILY #30 tab 11/29/22 Acetaminophen Tab [Tylenol] 650 mg PO Q6HR PRN tab 01/21/23 Dapagliflozin Propanediol [Farxiga] 10 mg PO DAILY #30 tablet 01/21/23 Furosemide [Lasix] 40 mg PO BID #60 tab 04/29/23 Allergies Allergy/AdvReac Type Severity Reaction Status Date / Time ANJU Inhibitors Allergy Unknown - Verified 06/09/23 22:14 per [facility] doxycycline Allergy Anaphylaxis Verified 06/09/23 22:14 Penicillins Allergy Anaphylaxis, Verified 06/09/23 22:14 Seizure Review of Systems ROS Statement: Those systems with pertinent positive or pertinent negative responses have been documented in the HPI. Review of Systems: CONST: Denies fever EYES: Denies blurry vision ENT: Denies nasal congestion C/V: Denies Chest pain RESP: Endorses dyspnea GI: Denies abdominal pain : Denies dysuria SKIN: Denies rash. MSK: Denies joint pain. NEURO: Endorses fatigue ROS Other: All systems not noted in ROS Statement are negative. Past Medical History Past Medical History: Atrial Fibrillation, Asthma, COPD, Diabetes Mellitus, GERD/Reflux, Hyperlipidemia, Hypertension, Osteoarthritis (OA), Pneumonia Additional Past Medical History / Comment(s): Afib RVR, home oxygen prn, bronchitis, pt states he is on metformin to prevent becoming diabetic, neuropathy bilateral feet/L hand, chronic pain back,/bilateral hips/knees/elbows and shoulders, L heel pain, FALLS, cataracts. 11/23/22 ex-spouse phylicia Wtaerman reports history is accurate to her knowledge. current adominal hernia noted History of Any Multi-Drug Resistant Organisms: None Reported Past Surgical History: Appendectomy Additional Past Surgical History / Comment(s): Colonoscopy. 11/23/22 ex-spouse phylicia Waterman reports history is accurate to her knowledge. Past Anesthesia/Blood Transfusion Reactions: No Reported Reaction Past Psychological History: Unable to Obtain, Anxiety, Depression Smoking Status: Current every day smoker, Vaper Past Alcohol Use History: None Reported Past Drug Use History: None Reported - Past Family History Father Family Medical History: Congestive Heart Failure (CHF), COPD Additional Family Medical History / Comment(s): Father was an alcoholic but was able to quit drinking Mother Family Medical History: Congestive Heart Failure (CHF), COPD Additional Family Medical History / Comment(s): Mother was an alcoholic. Daughter(s) Additional Family Medical History / Comment(s): Liver cancer General Exam - General Exam Comments Initial Comments: General: Appears fatigued HEAD: Normal with no signs of head trauma. EYES: PERRLA, EOMI, conjunctiva normal, no discharge. ENT: Hearing grossly intact, normal oropharynx. Dry mucous membranes RESPIRATORY: Mild bilateral end-expiratory wheezing. No hypoxia and baseline 4 L nasal cannula. C/V: Regular rate and rhythm. S1 and S2 auscultated, bilateral symmetrical pitting edema of lower extremities, peripheral pulses 2+ and intact throughout ABD: Abd is soft, nontender, nondistended EXT: Normal range of motion, no obvious deformity SKIN: No rashes or lesions observed on exposed skin. NEURO: Alert and oriented x 4. Cranial nerves II-XII intact. No focal sensory or strength deficits. Limitations: no limitations Course Vital Signs 06/09/23 06/09/23 06/09/23 20:26 21:31 21:41 Temperature 97.7 F Pulse Rate 77 71 Respiratory 22 24 22 Rate Blood Pressure 134/61 125/81 O2 Sat by Pulse 97 99 Oximetry Medical Decision Making - Medical Decision Making Was pt. sent in by a medical professional or institution (, [facility], PHILOSOPHY FACULTY MEMBER, urgent care, hospital, or group home...) When possible be specific @ -No Did you speak to anyone other than the patient for history (EMS, parent, family, police, friend...)? What history was obtained from this source @ -No Did you review nursing and triage notes (agree or disagree)? Why? @ -I reviewed and agree with nursing and triage notes Were old charts reviewed (outside hosp., previous admission, EMS record, old EKG, old radiological studies, urgent care reports/EKG's, group home records)? Report findings @ -Old charts reviewed. Differential Diagnosis (chest pain, altered mental status, abdominal pain women, abdominal pain men, vaginal bleeding, weakness, fever, dyspnea, syncope, headache, dizziness, GI bleed, back pain, seizure, CVA, palpatations, mental health, musculoskeletal)? @ -Differential Weakness: Hypoglycemia, shock, sepsis, hyponatremia, anemia, infection, OR, ETOH, adverse medicine reaction, overdose, stroke, this is not meant to be an all-inclusive list. EKG interpreted by me (3pts min.). @ -As above X-rays interpreted by me (1pt min.). @ -Chest x-ray shows possible mild pulmonary vascular congestion. No obvious infiltrate. CT interpreted by me (1pt min.). @ -None done U/S interpreted by me (1pt. min.). @ -None done What testing was considered but not performed or refused? (CT, X-rays, U/S, labs)? Why? @ -None What meds were considered but not given or refused? Why? @ -None Did you discuss the management of the patient with other professionals (professionals i.e. [facility] George, PHILOSOPHY FACULTY MEMBER, lab, RT, psych nurse, social media director, division manager, teacher, vessel traffic officer, lining caser)? Give summary @ -Discussed with Dr. Monsalve who accepted the admission. Was smoking cessation discussed for >3mins.? @ -No Was critical care preformed (if so, how long)? @ -No Were there social determinants of health that impacted care today? How? (Homelessness, low income, unemployed, alcoholism, drug addiction, transportation, low edu. Level, literacy, decrease access to med. care, [place] [facility], re hab)? @ -No Was there de-escalation of care discussed even if they declined (Discuss DNR or withdrawal of care, Hospice)? DNR status @ -No What co-morbidities impacted this encounter? (DM, HTN, Smoking, COPD, CAD, Cancer, CVA, ARF, Chemo, Hep., AIDS, mental health diagnosis, sleep apnea, morbid obesity)? @ -None Was patient admitted / discharged? Hospital course, mention meds given and route, prescriptions, significant lab abnormalities, going to OR and other pertinent info. @ -Based on the patient's presentation and physical exam, concern for COVID-19 infection as well as dehydration. We will obtain infectious labs. Patient will be started on a small fluid bolus due to his history of CHF. Patient was in agreement with this plan. He will be given analgesia medications in addition to this. He will see be given a breathing treatment. Vital signs within acceptable limits and his baseline 4 L nasal cannula. Chest x-ray reveals no obvious significant pulmonary vascular congestion versus possible covid Findings. Patient's labs remarkable for a lactic acidosis of 2.7 likely secondary to dehydration. Remainder the patient's labs are within acceptable limits including a normal BNP. Patient's code positive. EKG shows A. fib without any signs of acute ischemia. I discussed results patient. He will be admitted. He was in agreement this plan. I spoke with the admitting physician, Dr. Monsalve who accepted the admission. We will continue the patient on low-dose maintenance fluid saline and restart all of his home meds. ID consulted for Covid infection. Undiagnosed new problem with uncertain prognosis? @ -No Drug Therapy requiring intensive monitoring for toxicity (Heparin, Nitro, In sulin, Cardizem)? @ -No Were any procedures done? @ -No Diagnosis/symptom? @ -Covid 19 infection, weakness, dehydration Acute, or Chronic, or Acute on Chronic? @ -Acute Uncomplicated (without systemic symptoms) or Complicated (systemic symptoms)? @ -Complicated Side effects of treatment? @ -No Exacerbation, Progression, or Severe Exacerbation? @ -No Poses a threat to life or bodily function? How? (Chest pain, [place], OR, pneumonia, PE, COPD, DKA, ARF, appy, cholecystitis, CVA, Diverticulitis, Homicidal, Suicidal, threat to staff... and all critical care pts) @ -Yes Diagnosis/symptom? @ -Chronic hypoxic respiratory failure, COPD, CHF, A. fib Acute, or Chronic, or Acute on Chronic? @ -Chronic Uncomplicated (without systemic symptoms) or Complicated (systemic symptoms)? @ -Complicated Side effects of treatment? @ -none Exacerbation, Progression, or Severe Exacerbation] @ -no Poses a threat to life or bodily function? @ -Yes, if uncontrolled - Lab Data Result diagrams: 06/09/23 20:57 06/09/23 20:57 Lab Results 06/09/23 06/09/23 06/09/23 Range/Units 20:57 20:57 20:57 WBC 9.5 (3.8-10.6) k/uL RBC 4.34 (4.30-5.90) m/uL Hgb 12.2 L (13.0-17.5) gm/dL Hct 38.1 L (39.0-53.0) % MCV 87.9 (80.0-100.0) fL MCH 28.2 (25.0-35.0) pg MCHC 32.0 (31.0-37.0) g/dL RDW 17.9 H (11.5-15.5) % Plt Count 208 (150-450) k/uL MPV 7.6 Neutrophils % 91 % Lymphocytes % 4 % Monocytes % 3 % Eosinophils % 0 % Basophils % 0 % Neutrophils # 8.6 H (1.3-7.7) k/uL Lymphocytes # 0.4 L (1.0-4.8) k/uL Monocytes # 0.3 (0-1.0) k/uL Eosinophils # 0.0 (0-0.7) k/uL Basophils # 0.0 (0-0.2) k/uL Hypochromasia Slight Anisocytosis Slight PT 10.0 (9.0-12.0) sec INR 0.9 (<1.2) APTT 23.9 (22.0-30.0) sec Sodium (137-145) mmol/L Potassium (3.5-5.1) mmol/L Chloride (98-107) mmol/L Carbon Dioxide (22-30) mmol/L Anion Gap mmol/L BUN (9-20) mg/dL Creatinine (0.66-1.25) mg/dL Est GFR (CKD-EPI)AfAm (>60 ml/min/1.73 sqM) Est GFR (CKD-EPI)NonAf (>60 ml/min/1.73 sqM) Glucose (74-99) mg/dL Plasma Lactic Acid Wes (0.7-2.0) mmol/L Calcium (8.4-10.2) mg/dL Magnesium (1.6-2.3) mg/dL Total Bilirubin (0.2-1.3) mg/dL AST (17-59) U/L ALT (4-49) U/L Alkaline Phosphatase (38-126) U/L NT-Pro-B Natriuret Pep pg/mL Total Protein (6.3-8.2) g/dL Albumin (3.5-5.0) g/dL Urine Color Colorless Urine Appearance Clear (Clear) Urine pH 5.5 (5.0-8.0) Ur Specific [place] 1.018 (1.001-1.035) Urine Protein Negative (Negative) Urine Glucose (UA) 4+ H (Negative) Urine Ketones Negative (Negative) Urine Blood Negative (Negative) Urine Nitrite Negative (Negative) Urine Bilirubin Negative (Negative) Urine Urobilinogen <2.0 (<2.0) mg/dL Ur Leukocyte Esterase Negative (Negative) Influenza Type A (PCR) (Not Detectd) Influenza Type B (PCR) (Not Detectd) RSV (PCR) (Not Detectd) SARS-CoV-2 (PCR) (Not Detectd) 06/09/23 06/09/23 06/09/23 Range/Units 20:57 20:57 20:57 WBC (3.8-10.6) k/uL RBC (4.30-5.90) m/uL Hgb (13.0-17.5) gm/dL Hct (39.0-53.0) % MCV (80.0-100.0) fL MCH (25.0-35.0) pg MCHC (31.0-37.0) g/dL RDW (11.5-15.5) % Plt Count (150-450) k/uL MPV Neutrophils % % Lymphocytes % % Monocytes % % Eosinophils % % Basophils % % Neutrophils # (1.3-7.7) k/uL Lymphocytes # (1.0-4.8) k/uL Monocytes # (0-1.0) k/uL Eosinophils # (0-0.7) k/uL Basophils # (0-0.2) k/uL Hypochromasia Anisocytosis PT (9.0-12.0) sec INR (<1.2) APTT (22.0-30.0) sec Sodium 132 L (137-145) mmol/L Potassium 4.1 (3.5-5.1) mmol/L Chloride 90 L (98-107) mmol/L Carbon Dioxide 36 H (22-30) mmol/L Anion Gap 6 mmol/L BUN 22 H (9-20) mg/dL Creatinine 0.55 L (0.66-1.25) mg/dL Est GFR (CKD-EPI)AfAm >90 (>60 ml/min/1.73 sqM) Est GFR (CKD-EPI)NonAf >90 (>60 ml/min/1.73 sqM) Glucose 235 H (74-99) mg/dL Plasma Lactic Acid Wes 2.7 H* (0.7-2.0) mmol/L Calcium 8.0 L (8.4-10.2) mg/dL Magnesium 1.8 (1.6-2.3) mg/dL Total Bilirubin 0.8 (0.2-1.3) mg/dL AST 23 (17-59) U/L ALT 24 (4-49) U/L Alkaline Phosphatase 55 (38-126) U/L NT-Pro-B Natriuret Pep 429 pg/mL Total Protein 5.4 L (6.3-8.2) g/dL Albumin 3.1 L (3.5-5.0) g/dL Urine Color Urine Appearance (Clear) Urine pH (5.0-8.0) Ur Specific [place] (1.001-1.035) Urine Protein (Negative) Urine Glucose (UA) (Negative) Urine Ketones (Negative) Urine Blood (Negative) Urine Nitrite (Negative) Urine Bilirubin (Negative) Urine Urobilinogen (<2.0) mg/dL Ur Leukocyte Esterase (Negative) Influenza Type A (PCR) Not Detected (Not Detectd) Influenza Type B (PCR) Not Detected (Not Detectd) RSV (PCR) Not Detected (Not Detectd) SARS-CoV-2 (PCR) Detected A (Not Detectd) - EKG Data -: EKG Interpreted by Me EKG Comments: 12-lead Electrocardiogram Interpretation Note EKG was reviewed and interpreted by myself. 12-lead ECG performed at 2123 is interpreted by me as revealing atrial fibrillation at a rate of 71 beats per minute. [place] is normal. QRS durations 102 ms, QTc is 419 ms.. There were no ST or T wave abnormalities to suggest myocardial ischemia or injury. R wave progression across the precordium was satisfactory. By my interpretation this EKG is non-diagnostic for acute ischemia. Disposition Clinical Impression: COVID-19 virus infection, Dehydration, Weakness Disposition: ADMITTED IP TO THIS HOSP Condition: Stable Referrals: Elver Jackson MD [Primary Care Provider] - 1-2 days Time of Disposition: 22:05
[2023-06-10] MEDS: APIXABAN 5 MG TAB PO SCH ×3 (00:03→21:39)
[2023-06-10] MEDS: HYDROcodone/APAP 5-325MG 1 EACH TAB PO PRN ×4 (01:14→16:23)
[2023-06-10] MEDS: MELATONIN 3 MG TABLET PO PRN ×2 (01:14→21:39)
[2023-06-10 05:25] LABS: Anisocytosis Slight; Basophils % (A) 0 %; Eosinophils % (A) 0 %; HGB 12.2 gm/dL (13.0-17.5); Lymphocytes # (A) 0.6 k/uL (1.0-4.8); Lymphocytes % (A) 9 %; MCH 28.3 pg (25.0-35.0); MCHC 32.1 g/dL (31.0-37.0); MCV 88.2 fL (80.0-100.0); Mean Platelet Volume 7.3; Monocytes # (A) 0.2 k/uL (0-1.0); Monocytes % (A) 3 %; Neutrophils # (A) 5.3 k/uL (1.3-7.7); Neutrophils % (A) 87 %; Platelet Count 205 k/uL (150-450); RBC 4.31 m/uL (4.30-5.90); RDW 18.3 % (11.5-15.5); WBC 6.1 k/uL (3.8-10.6)
[2023-06-10 05:48] LABS: African American GFR (CKD) >90 (>60 ml/min/1.73 sqM); Blood Urea Nitrogen 19 mg/dL (9-20); Calcium 7.9 mg/dL (8.4-10.2); Chloride 90 mmol/L (98-107); Glucose 151 mg/dL (74-99); Non-African American GFR(CKD) >90 (>60 ml/min/1.73 sqM); Potassium 4.2 mmol/L (3.5-5.1); Sodium 133 mmol/L (137-145)
[2023-06-10 05:54] LABS: Anion Gap 6 mmol/L
[2023-06-10 06:11] LABS: Carbon Dioxide 37 mmol/L (22-30)
[2023-06-10] MEDS: SYMBICORT 160-4.5 MCG INHALER INHALATION SCH ×2 (07:46→21:30)
[2023-06-10] MEDS: ALBUTEROL HFA INHALER INHALATION PRN ×3 (07:47→21:30)
[2023-06-10] MEDS: TIOTROPIUM 2.5 MCG INHALER INHALATION SCH (07:47)
[2023-06-10] MEDS ORDERED: SYMBICORT 80-4.5 MCG INHALER INHALATION SCH (08:00)
[2023-06-10] MEDS: hydrALAZINE HCL 25 MG TAB PO SCH ×2 (08:43→21:39)
[2023-06-10] MEDS: PANTOPRAZOLE 40 MG TABLET PO SCH (08:43)
[2023-06-10] MEDS: THEOPHYLLINE 24 HOUR 400 MG CAP.ER.24H PO SCH (08:43)
[2023-06-10] MEDS: DAPAGLIFLOZIN PROPANEDIOL 10 MG TABLET PO SCH ×2 (08:43→09:18)
[2023-06-10] MEDS: DULoxetine HCL 30 MG CAPSULE.DR PO SCH (08:43)
[2023-06-10] MEDS: amLODIPine 10 MG TAB PO SCH (08:43)
[2023-06-10] MEDS: METOPROLOL TARTRATE 50 MG TAB PO SCH ×2 (08:43→21:39)
[2023-06-10] MEDS: TAMSULOSIN 0.4 MG CAP.ER.24H PO SCH (08:43)
[2023-06-10] MEDS: ESCITALOPRAM 5 MG TAB PO SCH (08:43)
[2023-06-10] MEDS ORDERED: SPIRONOLACTONE 25 MG TAB PO SCH (09:00)
[2023-06-10] MEDS ORDERED: metFORMIN 500 MG TAB PO SCH (09:00)
[2023-06-10] MEDS ORDERED: POTASSIUM CHLORIDE ER 10 MEQ TAB.ER.PRT PO SCH (09:00)
[2023-06-10] MEDS ORDERED: FUROSEMIDE 40 MG TAB PO SCH (09:00)
[2023-06-10] MEDS ORDERED: FLUTICASONE 50MCG/SPRAY NASAL 16GM EA NOSTRIL PRN (09:00)
--- NOTE | 2023-06-10 12:08 | P.HPIM ---
History of Present Illness 72-year-old male came in with complaints of shortness of breath weakness and fatigue and is found to have COVID-19. Patient uses fully dysfunction at home does have history of advanced COPD, poor functionality but doesn't like rehab ilitation places as if had falls there. Patient denied any fever chills. Patient does have history of congestive heart failure patient is bit hyponatremic, serum BNP is around 400 appears to be dry. Patient was given IV fluids patient takes Lasix Aldactone at home. Patient had diastolic dysfunction as well as a systolic dysfunction with EF of around 40% from for his recent echocardiogram. REVIEW OF SYSTEMS: CONSTITUTIONAL: No fever, no malaise, no fatigue. HEENT: No recent visual problems or hearing problems. Denied any sore throat. CARDIOVASCULAR: No chest pain, orthopnea, PND, no palpitations, no syncope. PULMONARY: no hemoptysis. GASTROINTESTINAL: No diarrhea, no nausea, no vomiting, no abdominal pain. NEUROLOGICAL: No headaches, no weakness, no numbness. HEMATOLOGICAL: Denies any bleeding or petechiae. GENITOURINARY: Denies any burning micturition, frequency, or urgency. MUSCULOSKELETAL/RHEUMATOLOGICAL: Denies any joint pain, swelling, or any muscle pain. ENDOCRINE: Denies any polyuria or polydipsia. The rest of the 14-point review of systems is negative. PHYSICAL EXAMINATION: GENERAL: The patient is alert and oriented x3, not in any acute distress. Well developed, well nourished. HEENT: Pupils are round and equally reacting to light. EOMI. No scleral icterus. No conjunctival pallor. Normocephalic, atraumatic. No pharyngeal erythema. No thyromegaly. CARDIOVASCULAR: S1 and S2 present. No murmurs, rubs, or gallops. PULMONARY: Chest is clear to auscultation, no wheezing or crackles. ABDOMEN: Soft, nontender, nondistended, normoactive bowel sounds. No palpable organomegaly. MUSCULOSKELETAL: No joint swelling or deformity. EXTREMITIES: No cyanosis, clubbing, or pedal edema. NEUROLOGICAL: Gross neurological examination did not reveal any focal deficits. SKIN: No rashes. Assessment and plan -Shortness of breath: Secondary to possibly Clomid superimposed on his chronic medical problems including COPD patient is presently in place of oxygen which will be continued patient has significant generalized weakness and physical therapy and occupational therapy evaluated the patient -Hyponatremia hypovolemic hyponatremia secondary to diuretics, which are being held IV fluids will be discontinued as well as he has a history of heart failure Hepatitis failure chronic systolic as well as diastolic dysfunction without any acute exacerbation at this time -Rule out pulmonary embolism -Chronic A. fib on atrial fibrillation presently rate controlled -chronic hypoxic respiratory failure secondary to COPD without any acute exacerbation x-ray and happened type 2 diabetes mellitus -Hypertension -Lactic acidosis secondary to metformin which will be discontinued. Patient is not a candidate for metformin. -Hyperlipidemia Hypogastric region reflux disease -Diabetic peripheral neuropathy -Generalized weakness age-related muscle atrophy along with chronic medical problems physical therapy and occupation therapy evaluation -Depression DVT prophylaxis: On anticoagulation as mentioned above Past Medical History Past Medical History: Atrial Fibrillation, Asthma, COPD, Diabetes Mellitus, GERD/Reflux, Hyperlipidemia, Hypertension, Osteoarthritis (OA), Pneumonia Additional Past Medical History / Comment(s): Afib RVR, home oxygen prn, bronchitis, pt states he is on metformin to prevent becoming diabetic, neuropathy bilateral feet/L hand, chronic pain back,/bilateral hips/knees/elbows and shoulders, L heel pain, FALLS, cataracts. 11/23/22 ex-spouse phylicia Waterman reports history is accurate to her knowledge. current adominal hernia noted History of Any Multi-Drug Resistant Organisms: None Reported Past Surgical History: Appendectomy Additional Past Surgical History / Comment(s): Colonoscopy Past Anesthesia/Blood Transfusion Reactions: No Reported Reaction Past Psychological History: Unable to Obtain, Anxiety, Depression Smoking Status: Current every day smoker, Vaper Past Alcohol Use History: None Reported Additional Past Alcohol Use History / Comment(s): Pt started smoking in 1969 and smokes 2 ppd or a little more. He states he has hx of ETOH abuse but has not drank in a few years. Past Drug Use History: None Reported Additional Drug Use History / Comment(s): Patient reports being a heavy marijuana smoker in the 1969" - Past Family History Father Family Medical History: Congestive Heart Failure (CHF), COPD Additional Family Medical History / Comment(s): Father was an alcoholic but was able to quit drinking Mother Family Medical History: Congestive Heart Failure (CHF), COPD Additional Family Medical History / Comment(s): Mother was an alcoholic. Daughter(s) Additional Family Medical History / Comment(s): Liver cancer Medications and Allergies Home Medications Medication Instructions Recorded Confirmed Type Albuterol Nebulized [Ventolin 2.5 mg INHALATION RT-Q6H PRN 05/08/20 06/09/23 History Nebulized] Apixaban [Eliquis] 5 mg PO BID #60 tab 07/08/20 06/09/23 Rx Ipratropium-Albuterol Nebulize 3 ml INHALATION RT-Q6H PRN 05/02/21 06/09/23 History [Duoneb 0.5 mg-3 mg/3 ml Soln] Tamsulosin [Flomax] 0.4 mg PO DAILY 12/07/21 06/09/23 History Albuterol Sulfate [Proair Hfa] 2 puff INHALATION RT-Q6H PRN 02/18/22 06/09/23 History Fluticasone Nasal [place] [Flonase 1 spr EA NOSTRIL Q12H PRN 02/18/22 06/09/23 History Nasal [place]] Theophylline Anhydrous 400 mg PO DAILY 02/18/22 06/09/23 History [Theophylline ER] Escitalopram [Lexapro] 5 mg PO DAILY 08/29/22 06/09/23 History Omeprazole 40 mg PO DAILY 08/29/22 06/09/23 History Metoprolol Tartrate [Lopressor] 50 mg PO BID tab 09/07/22 06/09/23 Rx metFORMIN HCL [Glucophage] 500 mg PO BID tab 09/07/22 06/09/23 Rx Melatonin 6 mg PO HS PRN 10 Days #20 tab 11/29/22 06/09/23 Rx Spironolactone [Aldactone] 25 mg PO DAILY #30 tab 11/29/22 06/09/23 Rx Atorvastatin Calcium [Lipitor] 40 mg PO HS 12/31/22 06/09/23 History DULoxetine HCL [Cymbalta] 30 mg PO DAILY 12/31/22 06/09/23 History Fluticasone/Vilanterol [Breo 1 puff INHALATION RT-DAILY 12/31/22 06/09/23 History Ellipta 100-25 Mcg Inhaler] Acetaminophen Tab [Tylenol] 650 mg PO Q6HR PRN tab 01/21/23 06/09/23 Rx Dapagliflozin Propanediol [Farxiga] 10 mg PO DAILY #30 tablet 01/21/23 06/09/23 Rx Budesonide-Formot 160-4.5 Mcg 2 puff INHALATION RT-BID 02/11/23 06/09/23 History [Symbicort 160-4.5 Mcg Inhaler] Nicotine 21Mg/24Hr Patch [Habitrol] 1 patch TRANSDERM DAILY PRN 04/25/23 06/09/23 History Potassium Chloride ER [K-Dur 10] 10 meq PO DAILY 04/25/23 06/09/23 History amLODIPine [Norvasc] 10 mg PO DAILY 04/25/23 06/09/23 History hydrALAZINE HCL [Apresoline] 25 mg PO BID 04/25/23 06/09/23 History predniSONE 5 mg PO DIRECTED 04/25/23 06/09/23 History Furosemide [Lasix] 40 mg PO BID #60 tab 04/29/23 06/09/23 Rx HYDROcodone/APAP 10-325MG [[place] 1 tab PO Q6HR PRN 06/09/23 06/09/23 History 10-325] Levofloxacin [Levaquin] 750 mg PO DIRECTED 06/10/23 06/10/23 History predniSONE See Taper PO DIRECTED 06/10/23 06/10/23 History Allergies Allergy/AdvReac Type Severity Reaction Status Date / Time ANJU Inhibitors Allergy Unknown - Verified 06/09/23 22:14 per [facility] doxycycline Allergy Anaphylaxis Verified 06/09/23 22:14 Penicillins Allergy Anaphylaxis, Verified 06/09/23 22:14 Seizure Physical Exam Vitals: Vital Signs Temp Pulse Resp BP Pulse Ox 06/10/23 08:14 85 20 151/66 98 06/10/23 04:32 71 22 177/71 96 06/10/23 01:13 71 18 137/76 96 06/09/23 23:05 80 18 153/95 98 06/09/23 21:41 71 22 125/81 99 06/09/23 21:31 24 06/09/23 20:26 97.7 F 77 22 134/61 97 Intake and Output 06/09/23 06/10/23 06/10/23 22:59 06:59 14:59 Output Total 900 400 Balance -900 -400 Output: Urine 900 400 Other: # Voids 2 Weight 107.501 kg 107.501 kg Results CBC & Chem 7: 06/10/23 05:03 06/10/23 05:03 Labs: Abnormal Lab Results - Last 24 Hours (Table) 06/09/23 06/09/23 06/09/23 Range/Units 20:57 20:57 20:57 Hgb 12.2 L (13.0-17.5) gm/dL Hct 38.1 L (39.0-53.0) % RDW 17.9 H (11.5-15.5) % Neutrophils # 8.6 H (1.3-7.7) k/uL Lymphocytes # 0.4 L (1.0-4.8) k/uL Sodium 132 L (137-145) mmol/L Chloride 90 L (98-107) mmol/L Carbon Dioxide 36 H (22-30) mmol/L BUN 22 H (9-20) mg/dL Creatinine 0.55 L (0.66-1.25) mg/dL Glucose 235 H (74-99) mg/dL Plasma Lactic Acid Wes (0.7-2.0) mmol/L Calcium 8.0 L (8.4-10.2) mg/dL C-Reactive Protein (<1.0) mg/dL Total Protein 5.4 L (6.3-8.2) g/dL Albumin 3.1 L (3.5-5.0) g/dL Urine Glucose (UA) 4+ H (Negative) SARS-CoV-2 (PCR) (Not Detectd) 06/09/23 06/09/23 06/10/23 Range/Units 20:57 20:57 00:00 Hgb (13.0-17.5) gm/dL Hct (39.0-53.0) % RDW (11.5-15.5) % Neutrophils # (1.3-7.7) k/uL Lymphocytes # (1.0-4.8) k/uL Sodium (137-145) mmol/L Chloride (98-107) mmol/L Carbon Dioxide (22-30) mmol/L BUN (9-20) mg/dL Creatinine (0.66-1.25) mg/dL Glucose (74-99) mg/dL Plasma Lactic Acid Wes 2.7 H* 2.9 H* (0.7-2.0) mmol/L Calcium (8.4-10.2) mg/dL C-Reactive Protein (<1.0) mg/dL Total Protein (6.3-8.2) g/dL Albumin (3.5-5.0) g/dL Urine Glucose (UA) (Negative) SARS-CoV-2 (PCR) Detected A (Not Detectd) 06/10/23 06/10/23 06/10/23 Range/Units 05:03 05:03 05:03 Hgb 12.2 L (13.0-17.5) gm/dL Hct 38.0 L (39.0-53.0) % RDW 18.3 H (11.5-15.5) % Neutrophils # (1.3-7.7) k/uL Lymphocytes # 0.6 L (1.0-4.8) k/uL Sodium 133 L (137-145) mmol/L Chloride 90 L (98-107) mmol/L Carbon Dioxide 37 H (22-30) mmol/L BUN (9-20) mg/dL Creatinine 0.47 L (0.66-1.25) mg/dL Glucose 151 H (74-99) mg/dL Plasma Lactic Acid Wes (0.7-2.0) mmol/L Calcium 7.9 L (8.4-10.2) mg/dL C-Reactive Protein 1.3 H (<1.0) mg/dL Total Protein (6.3-8.2) g/dL Albumin (3.5-5.0) g/dL Urine Glucose (UA) (Negative) SARS-CoV-2 (PCR) (Not Detectd) Thrombosis Risk Factor Assmnt - Choose All That Apply Any of the Below Risk Factors Present?: Yes Each Factor Represents 1 point: Abnormal pulmonary function (COPD), Obesity (BMI >25) Other Risk Factors: Yes Each Risk Factor Represents 2 Points: Age 61-74 years Other congenital or acquired thrombophilia - If yes, enter type in comment: No Thrombosis Risk Factor Assessment Total Risk Factor Score: 4 Thrombosis Risk Factor Assessment Level: Moderate Risk
[2023-06-10 12:52] LABS: Glucose,Whole Blood 121 mg/dL (70-110)
[2023-06-10] MEDS: INSULIN ASPART (NovoLOG) 100 UNIT/ML VIAL SQ SCH ×3 (13:01→21:34)
--- NOTE | 2023-06-10 15:16 | P.CONS ---
History of Present Illness - Reason for Consult Consult date: 06/10/23 covid 19 infection Requesting physician: Francisco August - Chief Complaint Shortness of breath x few days - History of Present Illness Patient is a 72-year-old male with a past medical history significant for asthma/COPD diabetes mellitus hypertension hyperlipidemia atrial fibrillation patient recently did have a to admission at [facility] last 1 was on 06/04/2023 with the patient has been treated for COPD exacerbation and the patient also tested positive for COVID-19 on 06/04/2023, patient was eval by pulmonary and the patient did received a 5-day course of remdesivir, patient mention he was discharged home on 06/08/2023 however the patient mention he was not ready to be discharged as he was still complaining of shortness of breath the patient subsequently has been evaluated by his PCP who apparently gave him an intramuscular antibiotics and advised to go to the hospital patient presented to [facility] ER last night for increasing shortness of breath fatigue and decreased appetite but denies having any chest pain patient did have a cough moderate intensity but mostly clear sputum no hemoptysis denies any nausea no vomiting no abdominal pain or any diarrhea patient presented to the hospital was afebrile the patient was not hypotensive or tachycardic and is currently on 4 L nasal cannula oxygen which seem to be baseline for him, patient did have a white count of 6.1 creatinine 0.47 he did have elevated lactic acid that has subsequently normalized D-dimer is 0.33, chest x-ray mild cardiomegaly with diffuse interstitial changes correlate for CHF with pulmonary vascular congestion infectious disease was consulted for further management Review of Systems Positive point and negatives has been mentioned in the HPI, complete review of systems was performed and all other systems are negative Past Medical History Past Medical History: Atrial Fibrillation, Asthma, COPD, Diabetes Mellitus, GERD/Reflux, Hyperlipidemia, Hypertension, Osteoarthritis (OA), Pneumonia Additional Past Medical History / Comment(s): Afib RVR, home oxygen prn, bronchitis, pt states he is on metformin to prevent becoming diabetic, neuropathy bilateral feet/L hand, chronic pain back,/bilateral hips/knees/elbows and shoulders, L heel pain, FALLS, cataracts. 11/23/22 ex-spouse phylicia Waterman reports history is accurate to her knowledge. current adominal hernia noted History of Any Multi-Drug Resistant Organisms: None Reported Past Surgical History: Appendectomy Additional Past Surgical History / Comment(s): Colonoscopy Past Anesthesia/Blood Transfusion Reactions: No Reported Reaction Past Psychological History: Unable to Obtain, Anxiety, Depression Smoking Status: Current every day smoker, Vaper Past Alcohol Use History: None Reported Additional Past Alcohol Use History / Comment(s): Pt started smoking in 1969 and smokes 2 ppd or a little more. He states he has hx of ETOH abuse but has not drank in a few years. Past Drug Use History: None Reported Additional Drug Use History / Comment(s): Patient reports being a heavy marijuana smoker in the 1969" - Past Family History Father Family Medical History: Congestive Heart Failure (CHF), COPD Additional Family Medical History / Comment(s): Father was an alcoholic but was able to quit drinking Mother Family Medical History: Congestive Heart Failure (CHF), COPD Additional Family Medical History / Comment(s): Mother was an alcoholic. Daughter(s) Additional Family Medical History / Comment(s): Liver cancer Medications and Allergies Home Medications Medication Instructions Recorded Confirmed Type Albuterol Nebulized [Ventolin 2.5 mg INHALATION RT-Q6H PRN 05/08/20 06/09/23 History Nebulized] Apixaban [Eliquis] 5 mg PO BID #60 tab 07/08/20 06/09/23 Rx Ipratropium-Albuterol Nebulize 3 ml INHALATION RT-Q6H PRN 05/02/21 06/09/23 History [Duoneb 0.5 mg-3 mg/3 ml Soln] Tamsulosin [Flomax] 0.4 mg PO DAILY 12/07/21 06/09/23 History Albuterol Sulfate [Proair Hfa] 2 puff INHALATION RT-Q6H PRN 02/18/22 06/09/23 History Fluticasone Nasal [place] [Flonase 1 spr EA NOSTRIL Q12H PRN 02/18/22 06/09/23 History Nasal [place]] Theophylline Anhydrous 400 mg PO DAILY 02/18/22 06/09/23 History [Theophylline ER] Escitalopram [Lexapro] 5 mg PO DAILY 08/29/22 06/09/23 History Omeprazole 40 mg PO DAILY 08/29/22 06/09/23 History Metoprolol Tartrate [Lopressor] 50 mg PO BID tab 09/07/22 06/09/23 Rx metFORMIN HCL [Glucophage] 500 mg PO BID tab 09/07/22 06/09/23 Rx Melatonin 6 mg PO HS PRN 10 Days #20 tab 11/29/22 06/09/23 Rx Spironolactone [Aldactone] 25 mg PO DAILY #30 tab 11/29/22 06/09/23 Rx Atorvastatin Calcium [Lipitor] 40 mg PO HS 12/31/22 06/09/23 History DULoxetine HCL [Cymbalta] 30 mg PO DAILY 12/31/22 06/09/23 History Fluticasone/Vilanterol [Breo 1 puff INHALATION RT-DAILY 12/31/22 06/09/23 History Ellipta 100-25 Mcg Inhaler] Acetaminophen Tab [Tylenol] 650 mg PO Q6HR PRN tab 01/21/23 06/09/23 Rx Dapagliflozin Propanediol [Farxiga] 10 mg PO DAILY #30 tablet 01/21/23 06/09/23 Rx Budesonide-Formot 160-4.5 Mcg 2 puff INHALATION RT-BID 02/11/23 06/09/23 History [Symbicort 160-4.5 Mcg Inhaler] Nicotine 21Mg/24Hr Patch [Habitrol] 1 patch TRANSDERM DAILY PRN 04/25/23 06/09/23 History Potassium Chloride ER [K-Dur 10] 10 meq PO DAILY 04/25/23 06/09/23 History amLODIPine [Norvasc] 10 mg PO DAILY 04/25/23 06/09/23 History hydrALAZINE HCL [Apresoline] 25 mg PO BID 04/25/23 06/09/23 History Furosemide [Lasix] 40 mg PO BID #60 tab 04/29/23 06/09/23 Rx HYDROcodone/APAP 10-325MG [[place] 1 tab PO Q6HR PRN 06/09/23 06/09/23 History 10-325] predniSONE 10 mg PO DIRECTED #30 tab 06/15/23 Rx Allergies Allergy/AdvReac Type Severity Reaction Status Date / Time ANJU Inhibitors Allergy Unknown - Verified 06/09/23 22:14 per [facility] doxycycline Allergy Anaphylaxis Verified 06/09/23 22:14 Penicillins Allergy Anaphylaxis, Verified 06/09/23 22:14 Seizure Physical Exam Vitals: Vital Signs Temp Pulse Resp BP Pulse Ox 06/10/23 08:14 85 20 151/66 98 06/10/23 04:32 71 22 177/71 96 06/10/23 01:13 71 18 137/76 96 06/09/23 23:05 80 18 153/95 98 06/09/23 21:41 71 22 125/81 99 06/09/23 21:31 24 06/09/23 20:26 97.7 F 77 22 134/61 97 Intake and Output 06/09/23 06/10/23 06/10/23 22:59 06:59 14:59 Output Total 900 400 Balance -900 -400 Output: Urine 900 400 Other: # Voids 2 Weight 107.501 kg 107.501 kg GENERAL DESCRIPTION: Elderly male lying in bed, no distress. No tachypnea or accessory muscle of respiration use. HEENT: Shows Pallor , no scleral icterus. Oral mucous membrane is dry. NECK: Trachea central, no thyromegaly. LUNGS: Unlabored breathing. Decreased intensity of breath sounds HEART: S1, S2, regular rate and rhythm. No loud murmur ABDOMEN: Soft, no tenderness , EXTREMITIES: No edema of feet. SKIN: No rash, no masses palpable. NEUROLOGICAL: The patient is awake, alert, oriented x3, mood and affect normal. Results CBC & Chem 7: 06/12/23 04:55 06/15/23 06:27 Labs: Abnormal Lab Results - Last 24 Hours (Table) 06/09/23 06/09/23 06/09/23 Range/Units 20:57 20:57 20:57 Hgb 12.2 L (13.0-17.5) gm/dL Hct 38.1 L (39.0-53.0) % RDW 17.9 H (11.5-15.5) % Neutrophils # 8.6 H (1.3-7.7) k/uL Lymphocytes # 0.4 L (1.0-4.8) k/uL Sodium 132 L (137-145) mmol/L Chloride 90 L (98-107) mmol/L Carbon Dioxide 36 H (22-30) mmol/L BUN 22 H (9-20) mg/dL Creatinine 0.55 L (0.66-1.25) mg/dL Glucose 235 H (74-99) mg/dL Plasma Lactic Acid Wes (0.7-2.0) mmol/L Calcium 8.0 L (8.4-10.2) mg/dL C-Reactive Protein (<1.0) mg/dL Total Protein 5.4 L (6.3-8.2) g/dL Albumin 3.1 L (3.5-5.0) g/dL Urine Glucose (UA) 4+ H (Negative) SARS-CoV-2 (PCR) (Not Detectd) 06/09/23 06/09/23 06/10/23 Range/Units 20:57 20:57 00:00 Hgb (13.0-17.5) gm/dL Hct (39.0-53.0) % RDW (11.5-15.5) % Neutrophils # (1.3-7.7) k/uL Lymphocytes # (1.0-4.8) k/uL Sodium (137-145) mmol/L Chloride (98-107) mmol/L Carbon Dioxide (22-30) mmol/L BUN (9-20) mg/dL Creatinine (0.66-1.25) mg/dL Glucose (74-99) mg/dL Plasma Lactic Acid Wes 2.7 H* 2.9 H* (0.7-2.0) mmol/L Calcium (8.4-10.2) mg/dL C-Reactive Protein (<1.0) mg/dL Total Protein (6.3-8.2) g/dL Albumin (3.5-5.0) g/dL Urine Glucose (UA) (Negative) SARS-CoV-2 (PCR) Detected A (Not Detectd) 06/10/23 06/10/23 06/10/23 Range/Units 05:03 05:03 05:03 Hgb 12.2 L (13.0-17.5) gm/dL Hct 38.0 L (39.0-53.0) % RDW 18.3 H (11.5-15.5) % Neutrophils # (1.3-7.7) k/uL Lymphocytes # 0.6 L (1.0-4.8) k/uL Sodium 133 L (137-145) mmol/L Chloride 90 L (98-107) mmol/L Carbon Dioxide 37 H (22-30) mmol/L BUN (9-20) mg/dL Creatinine 0.47 L (0.66-1.25) mg/dL Glucose 151 H (74-99) mg/dL Plasma Lactic Acid Wes (0.7-2.0) mmol/L Calcium 7.9 L (8.4-10.2) mg/dL C-Reactive Protein 1.3 H (<1.0) mg/dL Total Protein (6.3-8.2) g/dL Albumin (3.5-5.0) g/dL Urine Glucose (UA) (Negative) SARS-CoV-2 (PCR) (Not Detectd) Assessment and Plan (1) COVID-19 virus infection Status: Acute Code(s): U07.1 - COVID-19 SNOMED Code(s): 138452052 Plan: 1patient with a COVID-19 infection with initial admission to the [facility] on 06/04/2023 there was no evidence of any pneumonia however the patient did received a 5-day course of remdesivir now presenting to [facility] and a day after getting discharged from there with increasing shortness of breath patient not running any fever did have a normal white count clinic suspicious low for secondary bacterial pneumonia and symptoms are mostly suggestive of COPD exacerbation 2we will obtain sputum for Gram stain and culture, check a procalcitonin level 3continue with the bronchodilators and steroids and hold on adding any systemic antibiotic therapy at this point We will follow on clinical condition and cultures to further adjust medication if needed Thank you for this consultation we will follow the patient along with you Dictation was produced using [employer] dictation software. please excuse any grammatical, word or spelling errors. Time with Patient: Greater than 30
[2023-06-10 17:22] LABS: Glucose,Whole Blood 144 mg/dL (70-110)
[2023-06-10] MEDS ORDERED: FAMOTIDINE 20 MG/2 ML VIAL IV PRN (18:33)
[2023-06-10 21:35] LABS: Glucose,Whole Blood 127 mg/dL (70-110)
[2023-06-10] MEDS: HYDROcodone/APAP 10-325MG 1 EACH TAB PO PRN (21:38)
[2023-06-10] MEDS: ATORVASTATIN 40 MG TAB PO SCH (21:39)
[2023-06-11] MEDS: HYDROcodone/APAP 5-325MG 1 EACH TAB PO PRN ×2 (02:14→21:23)
[2023-06-11 06:05] LABS: Glucose,Whole Blood 109 mg/dL (70-110)
[2023-06-11] MEDS: INSULIN ASPART (NovoLOG) 100 UNIT/ML VIAL SQ SCH ×4 (06:18→21:22)
[2023-06-11] MEDS: SYMBICORT 160-4.5 MCG INHALER INHALATION SCH ×2 (09:46→22:35)
[2023-06-11] MEDS: ALBUTEROL HFA INHALER INHALATION PRN ×2 (09:46→12:25)
[2023-06-11] MEDS: TIOTROPIUM 2.5 MCG INHALER INHALATION SCH (09:46)
[2023-06-11] MEDS: METOPROLOL TARTRATE 50 MG TAB PO SCH ×2 (10:01→21:23)
[2023-06-11] MEDS: THEOPHYLLINE 24 HOUR 400 MG CAP.ER.24H PO SCH (10:02)
[2023-06-11] MEDS: amLODIPine 10 MG TAB PO SCH (10:02)
[2023-06-11] MEDS: ESCITALOPRAM 5 MG TAB PO SCH (10:02)
[2023-06-11] MEDS: hydrALAZINE HCL 25 MG TAB PO SCH ×2 (10:02→21:23)
[2023-06-11] MEDS: TAMSULOSIN 0.4 MG CAP.ER.24H PO SCH (10:02)
[2023-06-11] MEDS: DAPAGLIFLOZIN PROPANEDIOL 10 MG TABLET PO SCH (10:02)
[2023-06-11] MEDS: APIXABAN 5 MG TAB PO SCH ×2 (10:02→21:23)
[2023-06-11] MEDS: PANTOPRAZOLE 40 MG TABLET PO SCH (10:15)
[2023-06-11] MEDS: HYDROcodone/APAP 10-325MG 1 EACH TAB PO PRN ×2 (10:15→15:58)
[2023-06-11 12:18] LABS: Glucose,Whole Blood 96 mg/dL (70-110)
[2023-06-11] MEDS: DULoxetine HCL 30 MG CAPSULE.DR PO SCH (12:25)
--- NOTE | 2023-06-11 13:07 | P.PN ---
Subjective Progress Note Date: 06/11/23 Principal diagnosis: Covid 19 Patient is a 72-year-old male with a past medical history significant for asthma/COPD diabetes mellitus hypertension hyperlipidemia atrial f ibrillation patient recently did have a to admission at [facility] last 1 was on 06/04/2023 with the patient has been treated for COPD exacerbation and the patient also tested positive for COVID-19 on 06/04/2023, patient was eval by pulmonary and the patient did received a 5-day course of remdesivir, patient mention he was discharged home on 06/08/2023 , subsequently presenting to this ER for evaluation of increasing shortness of breath, patient did tested positive for covid chest x-ray with mostly diffuse infiltrate. On today's evaluation that is 06/11/2023, the patient remains to be afebrile, , the patient is breathing comfortably on 4 L nasal cannula oxygen, the patient denies chest pain and no worsening cough or sputum production, patient denies abdominal pain, nausea or vomiting and no diarrhea has been reported by the nursing staff No lab draws today, he did have a normal white count 6.1 yesterday did have a propensity no 0.05 Objective - Vital Signs Vital signs: Vital Signs Temp 97.9 F 06/11/23 07:25 Pulse 75 06/11/23 07:25 Resp 22 06/11/23 07:25 BP 136/79 06/11/23 07:25 Pulse Ox 99 06/11/23 07:25 FiO2 Intake & Output 06/10/23 06/11/23 06/11/23 18:59 06:59 18:59 Output Total 400 250 Balance -400 -250 Weight 107.501 kg Output: Urine 400 250 Other: Voiding Method Toilet - Exam GENERAL DESCRIPTION: An elderly male up in the chair in no distress RESPIRATORY SYSTEM: Unlabored breathing , decreased intensity of breath sounds HEART: S1 S2 regular rate and rhythm , ABDOMEN: Soft , no tenderness EXTREMITIES: No edema feet - Labs CBC & Chem 7: 06/10/23 05:03 06/10/23 05:03 Labs: Abnormal Lab Results - Last 24 Hours (Table) 06/10/23 06/10/23 Range/Units 17:21 21:33 POC Glucose (mg/dL) 144 H 127 H (70-110) mg/dL Assessment and Plan (1) COVID-19 virus infection Current Visit: Yes Status: Acute Code(s): U07.1 - COVID-19 SNOMED Code(s): 815191220 Plan: 1patient with a COVID-19 infection with initial admission to the [facility] on 06/04/2023 there was no evidence of any pneumonia however the patient did received a 5-day course of remdesivir now presenting to [facility] and a day after getting discharged from there with increasing shortness of breath patient not running any fever did have a normal white count clinic suspicious low for secondary bacterial pneumonia and symptoms are mostly suggestive of COPD exacerbation 2patient did have normal procalcitonin level that we make bacterial pneumonia t o be less likely 3continue with the bronchodilators and steroids and no need for systemic antibiotic therapy Dictation was produced using [employer] dictation software. please excuse any grammatical, word or spelling errors. Time with Patient: Less than 30
[2023-06-11 16:04] LABS: Glucose,Whole Blood 189 mg/dL (70-110)
[2023-06-11 20:33] LABS: Glucose,Whole Blood 167 mg/dL (70-110)
--- NOTE | 2023-06-11 20:41 | P.PN ---
Subjective Progress Note Date: 06/11/23 72-year-old male came in with complaints of shortness of breath weakness and fatigue and is found to have COVID-19. Patient uses fully dysfunction at home does have history of advanced COPD, poor functionality but doesn't like rehabilitation places as if had falls there. Patient denied any fever chills. Patient does have history of congestive heart failure patient is bit hyponatremic, serum BNP is around 400 appears to be dry. Patient was given IV fluids patient takes Lasix Aldactone at home. Patient had diastolic dysfunction as well as a systolic dysfunction with EF of around 40% from for his recent echocardiogram. 06/11/2023 Patient is seen and evaluated and followed this morning continues on 4 L of oxygen which she chronically wears patient. Patient has significant past medical history of COPD most likely COPD exacerbation. ProCalcitonin was negative. Patient did receive a five-day course of remdesivir for Covid last week. Covid testing here was still positive. Patient is currently afebrile no reports of worsening shortness of breath or chest pain. Patient reports not eating very well and reports weakness. Awaiting physical therapy evaluation. Encouraged to increase activity as tolerated. Review of systems: Constitutional: reports of fatigue, no fever, or chills Cardiovascular: No reports of chest pain or palpitations Respiratory: No reports of worsening shortness of breath, reports chronic cough GI: No reports of nausea, vomiting, or diarrhea, reports not much of an : No reports of dysuria or retention Neurovascular: reports of generalized weakness All medications have been reviewed PHYSICAL EXAMINATION: GENERAL: The patient is alert and oriented x3, not in any acute distress. Well developed, well nourished. HEENT: Pupils are round and equally reacting to light. EOMI. No scleral icterus. No conjunctival pallor. Normocephalic, atraumatic. No pharyngeal erythema. No thyromegaly. CARDIOVASCULAR: S1 and S2 present. No murmurs, rubs, or gallops. PULMONARY Diminished breath sounds bilaterally with coarse scattered rhonchi noted. Forced expiratory wheezing noted. ABDOMEN: Soft, nontender, nondistended, normoactive bowel sounds. No palpable organomegaly. MUSCULOSKELETAL: No joint swelling or deformity. EXTREMITIES: No cyanosis, clubbing,mild lower extremity edema nonpitting, appears improved from previous admissions NEUROLOGICAL: Gross neurological examination did not reveal any focal deficits. Diffusely weak SKIN: No rashes. Assessment: -Shortness of breath: Secondary to possibly Covid superimposed on his chronic medical problems including COPD -Generalized weakness await physical therapy evaluation -Hyponatremia hypovolemic, hyponatremia secondary to diuretics, which are being held -History of congestive heart failure chronic systolic as well as diastolic dysfunction without any acute exacerbation at this time -Ruled out pulmonary embolism -Chronic A. fib on atrial fibrillation, presently rate controlled -chronic hypoxic respiratory failure secondary to COPD, acute exacerbation -type 2 diabetes mellitus -Hypertension -Lactic acidosis secondary to metformin which will be discontinued. Patient is not a candidate for metformin. -Hyperlipidemia -Gastroesophageal reflux disease -Diabetic peripheral neuropathy -Generalized weakness age-related muscle atrophy along with chronic medical problems physical therapy and occupation therapy evaluation -Depression history -DVT prophylaxis: On anticoagulation as mentioned above Plan: Patient to continue on current medications including inhalers as he is not able to receive DuoNeb treatment secondary to Covid Encouraged increased activity as tolerated and awaiting physical therapy evaluation as patient reports weakness Patient has had multiple hospitalizations and reports weakness and also does not like rehab and refuses to go to rehab. Will await PT evaluation Infectious disease following for Covid and patient did receive Remdesivir for 5 days last week at [facility]. Covid testing here is still positive Will follow-up on repeat labs in the a.m. The impression and plan of care has been dictated by Ange Becerra, Nurse Practitioner as directed. Dr. Jean Carlos MD I have performed a history and examination and MDM of this patient, discussed the same with the dictator, and agree with the dictator's assessment and plan as written ,documented as a scribe. Based on total visit time, I have performed more than 50% of the visit. Objective - Vital Signs Vital signs: Vital Signs Temp 97.7 F 06/11/23 01:14 Pulse 70 06/11/23 01:14 Resp 18 06/11/23 01:14 BP 137/72 06/11/23 01:14 Pulse Ox 95 06/11/23 01:14 FiO2 Intake & Output 06/10/23 06/11/23 06/11/23 18:59 06:59 18:59 Output Total 400 250 Balance -400 -250 Weight 107.501 kg Output: Urine 400 250 Other: Voiding Method Toilet - Labs CBC & Chem 7: 06/10/23 05:03 06/10/23 05:03 Labs: Abnormal Lab Results - Last 24 Hours (Table) 06/10/23 06/10/23 06/10/23 Range/Units 05:03 12:51 17:21 POC Glucose (mg/dL) 121 H 144 H (70-110) mg/dL C-Reactive Protein 1.3 H (<1.0) mg/dL 06/10/23 Range/Units 21:33 POC Glucose (mg/dL) 127 H (70-110) mg/dL C-Reactive Protein (<1.0) mg/dL
[2023-06-11] MEDS: ATORVASTATIN 40 MG TAB PO SCH (21:23)
[2023-06-11] MEDS: MELATONIN 3 MG TABLET PO PRN (21:23)
[2023-06-12] MEDS: HYDROcodone/APAP 5-325MG 1 EACH TAB PO PRN ×3 (01:26→22:28)
[2023-06-12 05:59] LABS: Glucose,Whole Blood 104 mg/dL (70-110)
[2023-06-12] MEDS: INSULIN ASPART (NovoLOG) 100 UNIT/ML VIAL SQ SCH ×4 (06:48→20:59)
[2023-06-12 06:59] LABS: Glucose,Whole Blood 96 mg/dL (70-110)
[2023-06-12] MEDS: ALBUTEROL HFA INHALER INHALATION PRN ×4 (07:44→19:57)
[2023-06-12] MEDS: SYMBICORT 160-4.5 MCG INHALER INHALATION SCH ×2 (07:44→19:58)
[2023-06-12] MEDS: TIOTROPIUM 2.5 MCG INHALER INHALATION SCH (07:44)
[2023-06-12] MEDS: ESCITALOPRAM 5 MG TAB PO SCH (09:21)
[2023-06-12] MEDS: PANTOPRAZOLE 40 MG TABLET PO SCH (09:21)
[2023-06-12] MEDS: APIXABAN 5 MG TAB PO SCH ×2 (09:21→20:59)
[2023-06-12] MEDS: METOPROLOL TARTRATE 50 MG TAB PO SCH ×2 (09:21→20:59)
[2023-06-12] MEDS: THEOPHYLLINE 24 HOUR 400 MG CAP.ER.24H PO SCH (09:21)
[2023-06-12] MEDS: DAPAGLIFLOZIN PROPANEDIOL 10 MG TABLET PO SCH (09:21)
[2023-06-12] MEDS: TAMSULOSIN 0.4 MG CAP.ER.24H PO SCH (09:21)
[2023-06-12] MEDS: hydrALAZINE HCL 25 MG TAB PO SCH ×2 (09:21→20:59)
[2023-06-12] MEDS: amLODIPine 10 MG TAB PO SCH (09:21)
[2023-06-12] MEDS: DULoxetine HCL 30 MG CAPSULE.DR PO SCH (09:22)
[2023-06-12 09:43] LABS: HCT 37.8 % (39.6-50.0); HGB 11.2 d/dL (13.0-17.0); MCH 27.1 pg (27.0-32.0); MCHC 29.6 d/dL (32.0-37.0); MCV 91.3 FL (80.0-97.0); Mean Platelet Volume 10.1 FL (9.5-12.2); NRBC Per 100 WBC 0 X 10*3/uL (0.00-0.01); Platelet Count 207 X 10*3/uL (140-440); RBC 4.14 X 10*6/uL (4.40-5.60); RDW 18.1 % (11.5-14.5); WBC 9.84 X 10*3/uL (4.50-10.00)
[2023-06-12 09:55] LABS: BUN/Creat Ratio 22.67 Ratio (12.00-20.00); Blood Urea Nitrogen 13.6 mg/dL (9.0-27.0); Calcium 8.2 mg/dL (8.7-10.3); Chloride 96 mmol/L (96-109); Glucose 81 mg/dL (70-110); Potassium 3.9 mmol/L (3.5-5.5); Sodium 140 mmol/L (135-145)
[2023-06-12 10:23] LABS: Basophils # (M) 0 X 10*3/uL (0.00-0.10); Neutrophils % (M) 89 %
[2023-06-12 11:08] LABS: Lymphocytes # (M) 0.69 X 10*3/uL (0.90-5.00); Neutrophils # (M) 8.76 X 10*3/uL (1.80-7.70)
[2023-06-12 11:15] LABS: Glucose,Whole Blood 85 mg/dL (70-110)
[2023-06-12] MEDS ORDERED: predniSONE 20 MG TAB PO STA (12:59)
[2023-06-12 17:21] LABS: Glucose,Whole Blood 249 mg/dL (70-110)
[2023-06-12] MEDS: FUROSEMIDE 40 MG TAB PO SCH (17:31)
[2023-06-12] MEDS: HYDROcodone/APAP 10-325MG 1 EACH TAB PO PRN (17:34)
--- NOTE | 2023-06-12 19:17 | XR ---
EXAMINATION TYPE: XR chest 2V DATE OF EXAM: 06/12/2023 7:07 PM CLINICAL INDICATION:Male, 72 years old with history of SOB; [facility] COMPARISON: Chest radiographs from 06/09/2023 TECHNIQUE: XR chest 2V Frontal and lateral views of the chest. FINDINGS: Lungs/Pleura: No large pleural effusion, focal consolidation, or pneumothorax. Small bibasilar opaci ties posteriorly appear similar, may represent atelectasis/infiltrate and or tiny pleural effusions. Pulmonary vascularity: Mild pulmonary vascular congestion. Some interstitial coarsening again noted. Heart/mediastinum: Cardiomediastinal silhouette is enlarged and stable. Some atherosclerotic calcific ation along the aortic arch. Musculoskeletal: No focal acute osseous pathology. Degenerative changes of the dorsal spine. Other findings: None Lines/Tubes: None. EKG leads overlie the chest. IMPRESSION: 1. Similar mild cardiomegaly with mild pulmonary vascular congestion and interstitial coarsening. Co rrelate for CHF. 2. Similar small bibasilar opacities, may represent atelectasis/infiltrate and/or tiny pleural effus ions.
[2023-06-12 20:18] LABS: Glucose,Whole Blood 287 mg/dL (70-110)
[2023-06-12] MEDS: ATORVASTATIN 40 MG TAB PO SCH (20:59)
[2023-06-12] MEDS: MELATONIN 3 MG TABLET PO PRN (20:59)
--- NOTE | 2023-06-12 21:31 | P.PN ---
Subjective Progress Note Date: 06/12/23 72-year-old male came in with complaints of shortness of breath weakness and fatigue and is found to have COVID-19. Patient uses fully dysfunction at home does have history of advanced COPD, poor functionality but doesn't like rehabilitation places as if had falls there. Patient denied any fever chills. Patient does have history of congestive heart failure patient is bit hyponatremic, serum BNP is around 400 appears to be dry. Patient was given IV fluids patient takes Lasix Aldactone at home. Patient had diastolic dysfunction as well as a systolic dysfunction with EF of around 40% from for his recent echocardiogram. 06/11/2023 Patient is seen and evaluated and followed this morning continues on 4 L of oxygen which she chronically wears patient. Patient has significant past medical history of COPD most likely COPD exacerbation. ProCalcitonin was negative. Patient did receive a five-day course of remdesivir for Covid last week. Covid testing here was still positive. Patient is currently afebrile no reports of worsening shortness of breath or chest pain. Patient reports not eating very well and reports weakness. Awaiting physical therapy evaluation. Encouraged to increase activity as tolerated. 06/12/2023 Patient is evaluated today sitting up in bed. He is weak and PT/OT will follow up with the patient tomorrow although he has refused subacute rehab. Wears 4L of oxygen chronically, currently on 5L at bedside with documented oxygen saturations of 99%. Patient can be weaned if tolerated. He has scattered wheezing throughout and reports worsening shortness of breath today. We will follow up the chest xray today. Recommend to stop the IV fluids and patient has been resumed on his home diuretic. Patient will be started on oral prednisone and will require an increase in insulin regimen to avoid hyperglycemia. Review of systems: Constitutional: reports of fatigue, no fever, or chills Cardiovascular: No reports of chest pain or palpitations Respiratory: Reports worsening shortness of breath, reports chronic cough GI: No reports of nausea, vomiting, or diarrhea, reports not much of an : No reports of dysuria or retention Neurovascular: reports of generalized weakness All medications have been reviewed PHYSICAL EXAMINATION: GENERAL: The patient is alert and oriented x3, not in any acute distress. Well developed, well nourished. HEENT: Pupils are round and equally reacting to light. EOMI. No scleral icterus. No conjunctival pallor. Normocephalic, atraumatic. No pharyngeal erythema. No thyromegaly. CARDIOVASCULAR: S1 and S2 present. No murmurs, rubs, or gallops. PULMONARY Diminished breath sounds bilaterally with coarse scattered rhonchi noted. Scattered expiratory wheezing noted throughout ABDOMEN: Soft, nontender, nondistended, normoactive bowel sounds. No palpable organomegaly. MUSCULOSKELETAL: No joint swelling or deformity. EXTREMITIES: No cyanosis, clubbing,mild lower extremity edema nonpitting, appears improved from previous admissions NEUROLOGICAL: Gross neurological examination did not reveal any focal deficits. Diffusely weak SKIN: No rashes. Assessment: -Shortness of breath: Secondary to possibly Covid superimposed on his chronic medical problems including COPD -Generalized weakness await physical therapy evaluation -Hyponatremia hypovolemic, improved with IV fluids, diuretics were held. Sodium has normalized now chest xray showing vascular congestion. -History of congestive heart failure chronic systolic as well as diastolic dysfunction without any acute exacerbation at this time -Ruled out pulmonary embolism -Chronic A. fib on atrial fibrillation, presently rate controlled -chronic hypoxic respiratory failure secondary to COPD, acute exacerbation -type 2 diabetes mellitus -Hypertension -Lactic acidosis secondary to metformin which will be discontinued. Patient is not a candidate for metformin. -Hyperlipidemia -Gastroesophageal reflux disease -Diabetic peripheral neuropathy -Generalized weakness age-related muscle atrophy along with chronic medical problems physical therapy and occupation therapy evaluation -Depression history -DVT prophylaxis: On anticoagulation as mentioned above Plan: Patient to continue on current medications including inhalers as he is not able to receive DuoNeb treatment secondary to Covid Encouraged increased activity as tolerated and awaiting physical therapy evalu ation as patient reports weakness Patient has had multiple hospitalizations and reports weakness and also does not like rehab and refuses to go to rehab. Will await PT evaluation Infectious disease following for Covid and patient did receive Remdesivir for 5 days last week at [facility]. Covid testing here is still positive Recommend to stop the IV fluids as sodium has normalized. F/U chest xray and patient will be resumed on home dose of oral lasix. Depending on the chest xray patient may require dose of IV lasix. A proBNP will also be checked. Patient has been started on oral prednisone and long active insulin as blood glucose is elevated. Recommend to continue ACHS and sliding scale insulin may need further adjustments pending blood glucose trend. Will follow-up on repeat labs in the a.m. The impression and plan of care has been dictated by Geetha Domingo, Nurse Practitioner as directed. Dr. Jean Carlos MD I have performed a history and physical examination and medical decision making of this patient, discussed the same with the dictator, and agree with the dictators assessment and plan as written, documented as a scribe. Based on total visit time, I have performed more than 50% of this visit. Objective - Vital Signs Vital signs: Vital Signs Temp 98.1 F 06/12/23 07:22 Pulse 66 06/12/23 08:00 Resp 18 06/12/23 07:22 BP 130/80 06/12/23 07:22 Pulse Ox 99 06/12/23 07:44 FiO2 Intake & Output 06/11/23 06/12/23 06/12/23 18:59 06:59 18:59 Output Total 1225 500 300 Balance -1225 -500 -300 Output: Urine 1225 500 300 Other: Voiding Method Toilet Toilet - Labs CBC & Chem 7: 06/12/23 04:55 06/12/23 04:55 Labs: Abnormal Lab Results - Last 24 Hours (Table) 06/11/23 06/11/23 06/12/23 Range/Units 16:02 20:31 04:55 RBC 4.14 L (4.40-5.60) X 10*6/uL Hgb 11.2 L (13.0-17.0) d/dL Hct 37.8 L (39.6-50.0) % MCHC 29.6 L (32.0-37.0) d/dL RDW 18.1 H (11.5-14.5) % Lymphocytes # (Manual) 0.69 L (0.90-5.00) X 10*3/uL Carbon Dioxide (21.6-31.8) mmol/L BUN/Creatinine Ratio (12.00-20.00) Ratio POC Glucose (mg/dL) 189 H 167 H (70-110) mg/dL Calcium (8.7-10.3) mg/dL 06/12/23 Range/Units 04:55 RBC (4.40-5.60) X 10*6/uL Hgb (13.0-17.0) d/dL Hct (39.6-50.0) % MCHC (32.0-37.0) d/dL RDW (11.5-14.5) % Lymphocytes # (Manual) (0.90-5.00) X 10*3/uL Carbon Dioxide 38.0 H (21.6-31.8) mmol/L BUN/Creatinine Ratio 22.67 H (12.00-20.00) Ratio POC Glucose (mg/dL) (70-110) mg/dL Calcium 8.2 L (8.7-10.3) mg/dL Assessment and Plan Time with Patient: Less than 30
[2023-06-12] MEDS: INSULIN DETEMIR (LEVEMIR) 100 UNIT/ML SYR SQ SCH (22:27)
[2023-06-13] MEDS: HYDROcodone/APAP 5-325MG 1 EACH TAB PO PRN ×4 (03:12→20:08)
[2023-06-13] MEDS: ALBUTEROL HFA INHALER INHALATION PRN ×4 (04:57→17:54)
[2023-06-13 06:01] LABS: Glucose,Whole Blood 116 mg/dL (70-110)
[2023-06-13] MEDS: INSULIN ASPART (NovoLOG) 100 UNIT/ML VIAL SQ SCH ×4 (07:04→22:29)
[2023-06-13] MEDS: TIOTROPIUM 2.5 MCG INHALER INHALATION SCH (08:07)
[2023-06-13] MEDS: SYMBICORT 160-4.5 MCG INHALER INHALATION SCH ×2 (08:07→21:45)
[2023-06-13] MEDS: ESCITALOPRAM 5 MG TAB PO SCH (08:39)
[2023-06-13] MEDS: METOPROLOL TARTRATE 50 MG TAB PO SCH ×2 (08:39→20:08)
[2023-06-13] MEDS: PANTOPRAZOLE 40 MG TABLET PO SCH (08:39)
[2023-06-13] MEDS: hydrALAZINE HCL 25 MG TAB PO SCH ×2 (08:39→20:08)
[2023-06-13] MEDS: APIXABAN 5 MG TAB PO SCH ×2 (08:39→20:09)
[2023-06-13] MEDS: predniSONE 20 MG TAB PO SCH (08:40)
[2023-06-13] MEDS: DULoxetine HCL 30 MG CAPSULE.DR PO SCH (08:40)
[2023-06-13] MEDS: TAMSULOSIN 0.4 MG CAP.ER.24H PO SCH (08:40)
[2023-06-13] MEDS: amLODIPine 10 MG TAB PO SCH (08:40)
[2023-06-13] MEDS: DAPAGLIFLOZIN PROPANEDIOL 10 MG TABLET PO SCH (08:40)
[2023-06-13] MEDS: THEOPHYLLINE 24 HOUR 400 MG CAP.ER.24H PO SCH (08:40)
[2023-06-13] MEDS: FUROSEMIDE 40 MG TAB PO SCH ×2 (08:40→16:06)
[2023-06-13 10:25] LABS: BUN/Creat Ratio 22.33 Ratio (12.00-20.00); Blood Urea Nitrogen 13.4 mg/dL (9.0-27.0); Calcium 8.1 mg/dL (8.7-10.3); Carbon Dioxide 38.6 mmol/L (21.6-31.8); Chloride 94 mmol/L (96-109); Glucose 136 mg/dL (70-110); Potassium 3.6 mmol/L (3.5-5.5); Sodium 139 mmol/L (135-145)
[2023-06-13 11:18] LABS: Glucose,Whole Blood 178 mg/dL (70-110)
--- NOTE | 2023-06-13 15:49 | P.CONS ---
History of Present Illness - Reason for Consult Consult date: 06/13/23 rehab recommendations - Chief Complaint weakness - History of Present Illness Mr Olegario Villela is a 72 y/o male who lives alone in a single story home with 3STE. Per patient, he has been managing poorly at home, uses a walker or cane as needed. Sponge bathes as doesn't like to crawl into tub. He reports he has minimal help, occasionally his neighbor helps with shopping. He does not drive. Patient has previously been to [facility] but did not like them, reports he had falls there. 1 daughter that lives in [facility]. Patient presented to [facility] on 06/09/23 with complaints of SOB, fatigue, weakness, and decreased appetite. He is chronically on 4 liters O2 at baseline. He recently went to [facility] and tested positive for COVID 19 on 06/04. He was admitted for COVID 19 infection, dehydration, generalized weakness, and leg pain. He was given IV fluids. His Oxygen was titrated for COPD exacerbation. PM&R consulted for rehab recommendations. Patient was seen by therapies, supervision with transfers and gait 20 ft but decreased strength and endurance, min assist with bathing, mod assist with LB dressing. Notes occasional cough, sometimes issues swallowing liquids but doesn't notice a cough at those times, numbness/tingling/pain in lower extremities from neuropathy. Denies VALLE, CP, SOB, abdominal pain. Last BM today. Review of Systems reviewed, negative unless stated above in HPI Past Medical History Past Medical History: Atrial Fibrillation, Asthma, COPD, Diabetes Mellitus, GERD/Reflux, Hyperlipidemia, Hypertension, Osteoarthritis (OA), Pneumonia Additional Past Medical History / Comment(s): Afib RVR, home oxygen prn, bronchitis, pt states he is on metformin to prevent becoming diabetic, neuropathy bilateral feet/L hand, chronic pain back,/bilateral hips/knees/elbows and shoulders, L heel pain, FALLS, cataracts. 11/23/22 ex-spouse phylicia Waterman reports history is accurate to her knowledge. current adominal hernia noted History of Any Multi-Drug Resistant Organisms: None Reported Past Surgical History: Appendectomy Additional Past Surgical History / Comment(s): Colonoscopy Past Anesthesia/Blood Transfusion Reactions: No Reported Reaction Past Psychological History: Unable to Obtain, Anxiety, Depression Additional Psychological History / Comment(s): 11/23/22 ex-spouse phylicia Waterman reports history is accurate to her knowledge. Smoking Status: Former smoker Past Alcohol Use History: None Reported Additional Past Alcohol Use History / Comment(s): Pt started smoking in 1969 and smokes 2 ppd or a little more. He states he has hx of ETOH abuse but has not drank in a few years. Past Drug Use History: None Reported Additional Drug Use History / Comment(s): Patient reports being a heavy marijuana smoker in the 1969" - Past Family History Father Family Medical History: Congestive Heart Failure (CHF), COPD Additional Family Medical History / Comment(s): Father was an alcoholic but was able to quit drinking Mother Family Medical History: Congestive Heart Failure (CHF), COPD Additional Family Medical History / Comment(s): Mother was an alcoholic. Daughter(s) Additional Family Medical History / Comment(s): Liver cancer Medications and Allergies Home Medications Medication Instructions Recorded Confirmed Type Albuterol Nebulized [Ventolin 2.5 mg INHALATION RT-Q6H PRN 05/08/20 06/09/23 History Nebulized] Apixaban [Eliquis] 5 mg PO BID #60 tab 07/08/20 06/09/23 Rx Ipratropium-Albuterol Nebulize 3 ml INHALATION RT-Q6H PRN 05/02/21 06/09/23 History [Duoneb 0.5 mg-3 mg/3 ml Soln] Tamsulosin [Flomax] 0.4 mg PO DAILY 12/07/21 06/09/23 History Albuterol Sulfate [Proair Hfa] 2 puff INHALATION RT-Q6H PRN 02/18/22 06/09/23 History Fluticasone Nasal Trilla [Flonase 1 spr EA NOSTRIL Q12H PRN 02/18/22 06/09/23 History Nasal Trilla] Theophylline Anhydrous 400 mg PO DAILY 02/18/22 06/09/23 History [Theophylline ER] Escitalopram [Lexapro] 5 mg PO DAILY 08/29/22 06/09/23 History Omeprazole 40 mg PO DAILY 08/29/22 06/09/23 History Metoprolol Tartrate [Lopressor] 50 mg PO BID tab 09/07/22 06/09/23 Rx metFORMIN HCL [Glucophage] 500 mg PO BID tab 09/07/22 06/09/23 Rx Melatonin 6 mg PO HS PRN 10 Days #20 tab 11/29/22 06/09/23 Rx Spironolactone [Aldactone] 25 mg PO DAILY #30 tab 11/29/22 06/09/23 Rx Atorvastatin Calcium [Lipitor] 40 mg PO HS 12/31/22 06/09/23 History DULoxetine HCL [Cymbalta] 30 mg PO DAILY 12/31/22 06/09/23 History Fluticasone/Vilanterol [Breo 1 puff INHALATION RT-DAILY 12/31/22 06/09/23 History Ellipta 100-25 Mcg Inhaler] Acetaminophen Tab [Tylenol] 650 mg PO Q6HR PRN tab 01/21/23 06/09/23 Rx Dapagliflozin Propanediol [Farxiga] 10 mg PO DAILY #30 tablet 01/21/23 06/09/23 Rx Budesonide-Formot 160-4.5 Mcg 2 puff INHALATION RT-BID 02/11/23 06/09/23 History [Symbicort 160-4.5 Mcg Inhaler] Nicotine 21Mg/24Hr Patch [Habitrol] 1 patch TRANSDERM DAILY PRN 04/25/23 06/09/23 History Potassium Chloride ER [K-Dur 10] 10 meq PO DAILY 04/25/23 06/09/23 History amLODIPine [Norvasc] 10 mg PO DAILY 04/25/23 06/09/23 History hydrALAZINE HCL [Apresoline] 25 mg PO BID 04/25/23 06/09/23 History predniSONE 5 mg PO DIRECTED 04/25/23 06/09/23 History Furosemide [Lasix] 40 mg PO BID #60 tab 04/29/23 06/09/23 Rx HYDROcodone/APAP 10-325MG [[place] 1 tab PO Q6HR PRN 06/09/23 06/09/23 History 10-325] Levofloxacin [Levaquin] 750 mg PO DIRECTED 06/10/23 06/10/23 History predniSONE See Taper PO DIRECTED 06/10/23 06/10/23 History Allergies Allergy/AdvReac Type Severity Reaction Status Date / Time ANJU Inhibitors Allergy Unknown - Verified 06/09/23 22:14 per [facility] doxycycline Allergy Anaphylaxis Verified 06/09/23 22:14 Penicillins Allergy Anaphylaxis, Verified 06/09/23 22:14 Seizure Physical Exam Vitals: Vital Signs Temp Pulse Resp BP Pulse Ox 06/13/23 13:27 98.7 F 70 16 112/71 96 06/13/23 07:35 98.4 F 60 20 130/72 98 06/13/23 01:07 98.2 F 78 18 136/70 96 06/12/23 19:05 98.5 F 82 18 137/72 97 Intake and Output 06/13/23 06/13/23 06/13/23 06:59 14:59 22:59 Output Total 1000 400 Balance -1000 -400 Output: Urine 1000 400 Other: Voiding Method Toilet Weight 124.8 kg General: WDWN, male, NAD Head: Normocephalic, atraumatic. Eyes: Symmetric Ears: Symmetric. Hearing within normal limits. Mouth: Clear. Neck: Supple. Cardiac: Regular rate and rhythm. Calves supple, non tender, 2+ LE edema Lungs: Breathing comfortably on 4L O2. Chest symmetric. Abdomen: Soft, nontender with hernia Extremities: Arthritic changes consistent with age. Neurological: Alert and oriented x4 (with self-corrections) Speech is clear and fluent without paraphasic errors Cranial nerves: CN II-XII: intact. Sensation: Intact and symmetrical limbs. Musculoskeletal: ROM WFL EXCEPT: brace left wrist. MMT UE Sh Abd EE EF FABD WE HG Right 5 5 5 5 5 5 Left 5 5 5 5 5 5 MMT LE HF KE DF EHL Right 5 5 5 5 Left 5 5 5 5 Reflexes Biceps Triceps Brachioradialis Patella Achilles Babinski Hoffmans Right 2 2 2 dec dec down neg Left 2 2 2 dec dec down neg Skin: Skin intact where visible to head, neck, and bilateral upper and lower extremities EXCEPT: IV right hand. Psych: Calm, cooperative Results CBC & Chem 7: 06/12/23 04:55 06/13/23 05:34 Labs: Abnormal Lab Results - Last 24 Hours (Table) 06/12/23 06/12/23 06/12/23 Range/Units 04:55 17:20 20:16 Neutrophils # (Manual) 8.76 H (1.80-7.70) X 10*3/uL Chloride (96-109) mmol/L Carbon Dioxide (21.6-31.8) mmol/L BUN/Creatinine Ratio (12.00-20.00) Ratio Glucose (70-110) mg/dL POC Glucose (mg/dL) 249 H 287 H (70-110) mg/dL Calcium (8.7-10.3) mg/dL 06/13/23 06/13/23 06/13/23 Range/Units 05:34 06:00 11:17 Neutrophils # (Manual) (1.80-7.70) X 10*3/uL Chloride 94 L (96-109) mmol/L Carbon Dioxide 38.6 H (21.6-31.8) mmol/L BUN/Creatinine Ratio 22.33 H (12.00-20.00) Ratio Glucose 136 H (70-110) mg/dL POC Glucose (mg/dL) 116 H 178 H (70-110) mg/dL Calcium 8.1 L (8.7-10.3) mg/dL Assessment and Plan Assessment: # Debility secondary to Recent COVID 19 infection, 06/04 positive -s/p abx -PT/OT # COPD exacerbation -on O2 and prednisone # Dehydration # Generalized weakness secondary to above # COPD, O2 dependent # Tobacco abuse # Bowel/ Bladder: Nursing to monitor and report concerns if any. # Diet-per EMR # Skin/wound: Skin/Wound care to follow as needed # Mood d/o -Cymbalta 30 mg QD, Lexapro 5 mg daily, # Pain Management Tylenol 650 mg Q 6 prn, [place] 5/325 mg Q 4 prn moderate pain, [place] 10/325 mg Q 6 prn severe pain # DVT Prophylaxis: Eliquis 5 mg BID # Comorbidities: Afib, asthma, DM, GERD, HLD, HTN, OA, neuropathy, falls, history of ETOH abuse # Your medical dx and mgt Goals: Modified Independent mobility and ADLS both basic and advanced; increased functional mobility/strength; increased balance, safety, endurance. Improvement in medical issues through your care. Barriers: endurance, lives alone, independent prior Discharge recommendation: Recommend IPR as patient was independent prior, is motivated to return home and is performing below his prior level of function. He will need insurance authorization. Patient seen and examined by Dr. Martinez, consult note remotely prepped by Kayli Elizondo PA-C
[2023-06-13 16:49] LABS: Glucose,Whole Blood 206 mg/dL (70-110)
[2023-06-13] MEDS: ATORVASTATIN 40 MG TAB PO SCH (20:08)
[2023-06-13] MEDS: MELATONIN 3 MG TABLET PO PRN (20:09)
[2023-06-13] MEDS: INSULIN DETEMIR (LEVEMIR) 100 UNIT/ML SYR SQ SCH (20:09)
[2023-06-13 21:21] LABS: Glucose,Whole Blood 172 mg/dL (70-110)
--- NOTE | 2023-06-13 23:40 | P.PN ---
Subjective Progress Note Date: 06/13/23 72-year-old male came in with complaints of shortness of breath weakness and fatigue and is found to have COVID-19. Patient uses fully dysfunction at home does have history of advanced COPD, poor functionality but doesn't like rehabilitation places as if had falls there. Patient denied any fever chills. Patient does have history of congestive heart failure patient is bit hyponatremic, serum BNP is around 400 appears to be dry. Patient was given IV fluids patient takes Lasix Aldactone at home. Patient had diastolic dysfunction as well as a systolic dysfunction with EF of around 40% from for his recent echocardiogram. 06/11/2023 Patient is seen and evaluated and followed this morning continues on 4 L of oxygen which she chronically wears patient. Patient has significant past medical history of COPD most likely COPD exacerbation. ProCalcitonin was negative. Patient did receive a five-day course of remdesivir for Covid last week. Covid testing here was still positive. Patient is currently afebrile no reports of worsening shortness of breath or chest pain. Patient reports not eating very well and reports weakness. Awaiting physical therapy evaluation. Encouraged to increase activity as tolerated. 06/12/2023 Patient is evaluated today sitting up in bed. He is weak and PT/OT will follow up with the patient tomorrow although he has refused subacute rehab. Wears 4L of oxygen chronically, currently on 5L at bedside with documented oxygen saturations of 99%. Patient can be weaned if tolerated. He has scattered wheezing throughout and reports worsening shortness of breath today. We will follow up the chest xray today. Recommend to stop the IV fluids and patient has been resumed on his home diuretic. Patient will be started on oral prednisone and will require an increase in insulin regimen to avoid hyperglycemia. 06/13/2023 Patient is seen and evaluated in follow-up currently awaiting physical therapy to evaluate the patient. Patient continues to report weakness and would like to work with physical therapy for strength and mobility and is agreeable to do so. Patient remains on 3-4 L of oxygen via nasal cannula which is chronic for him and currently receiving inhalers as patient is Covid positive unable to receive DuoNeb treatments. Patient chronically uses nebulize treatments outpatient for his chronic COPD. Patient with chronic lower extremity swelling although is improved and will continue with Miguel wraps to bilateral lower extremities and elevating well at rest. We'll place a consult for possible inpatient rehab at [facility] as patient may benefit from aggressive physical therapy as patient was independent in ADLs prior to this admission. Review of systems: Constitutional: reports of fatigue, no fever, or chills Cardiovascular: No reports of chest pain or palpitations Respiratory: No reports of worsening shortness of breath, reports chronic cough GI: No reports of nausea, vomiting, or diarrhea, reports not much of an appetite : No reports of dysuria or retention Neurovascular: reports of generalized weakness All medications have been reviewed PHYSICAL EXAMINATION: GENERAL: The patient is alert and oriented x3, not in any acute distress. Well developed, well nourished. HEENT: Pupils are round and equally reacting to light. EOMI. No scleral icterus. No conjunctival pallor. Normocephalic, atraumatic. No pharyngeal erythema. No thyromegaly. CARDIOVASCULAR: S1 and S2 present. No murmurs, rubs, or gallops. PULMONARY Diminished breath sounds bilaterally with coarse scattered rhonchi noted. Forced expiratory wheezing noted. ABDOMEN: Soft, nontender, nondistended, normoactive bowel sounds. No palpable organomegaly. MUSCULOSKELETAL: No joint swelling or deformity. EXTREMITIES: No cyanosis, clubbing,mild lower extremity edema nonpitting, appears improved from previous admissions NEUROLOGICAL: Gross neurological examination did not reveal any focal deficits. Diffusely weak SKIN: No rashes. Assessment: -Shortness of breath: Secondary to possibly Covid superimposed on his chronic medical problems including COPD -Generalized weakness await physical therapy evaluation -Hyponatremia hypovolemic, improved with IV fluids, diuretics were held. Sodium has normalized now chest xray showing vascular congestion. -History of congestive heart failure chronic systolic as well as diastolic dysfunction without any acute exacerbation at this time -Ruled out pulmonary embolism -Chronic A. fib on atrial fibrillation, presently rate controlled -chronic hypoxic respiratory failure secondary to COPD, acute exacerbation -type 2 diabetes mellitus -Hypertension -Lactic acidosis secondary to metformin which will be discontinued. Patient is not a candidate for metformin. -Hyperlipidemia -Gastroesophageal reflux disease -Diabetic peripheral neuropathy -Generalized weakness age-related muscle atrophy along with chronic medical problems physical therapy and occupation therapy evaluation -Depression history -DVT prophylaxis: On anticoagulation as mentioned above Plan: Patient to continue on current medications including inhalers as he is not able to receive DuoNeb treatment secondary to Covid Encouraged increased activity as tolerated and awaiting physical therapy evaluation as patient reports weakness. Case management to follow and will consider possible inpatient rehab and a consult was placed for [facility]. Patient has had multiple hospitalizations and reports weakness and reports eugene ford bad experiences at [facility] Infectious disease following for Covid and patient did receive Remdesivir for 5 days last week at [facility]. Covid testing here is still positive Home dose of Lasix resumed Patient has been started on oral prednisone and long active insulin as blood glucose is elevated. Recommend to continue ACHS and sliding scale insulin may need further adjustments pending blood glucose trend. Currently awaiting inpatient rehab consultation as well as insurance authoriz ation. Possible discharge in the next 24-48 hours The impression and plan of care has been dictated by Ange Becerra, Nurse Practitioner as directed. Dr. Jean Carlos MD I have performed a history and examination and MDM of this patient, discussed the same with the dictator, and agree with the dictator's assessment and plan as written ,documented as a scribe. Based on total visit time, I have performed more than 50% of the visit. Objective - Vital Signs Vital signs: Vital Signs Temp 98.4 F 06/13/23 07:35 Pulse 60 06/13/23 07:35 Resp 20 06/13/23 07:35 BP 130/72 06/13/23 07:35 Pulse Ox 98 06/13/23 07:35 FiO2 Intake & Output 06/12/23 06/13/23 06/13/23 18:59 06:59 18:59 Intake Total 720 Output Total 800 1000 Balance -80 -1000 Weight 124.8 kg Intake: Oral 720 Output: Urine 800 1000 Other: Voiding Method Toilet Toilet Toilet - Labs CBC & Chem 7: 06/12/23 04:55 06/13/23 05:34 Labs: Abnormal Lab Results - Last 24 Hours (Table) 06/12/23 06/12/23 06/12/23 Range/Units 04:55 04:55 17:20 Lymphocytes # (Manual) 0.69 L (0.90-5.00) X 10*3/uL Carbon Dioxide 38.0 H (21.6-31.8) mmol/L BUN/Creatinine Ratio 22.67 H (12.00-20.00) Ratio POC Glucose (mg/dL) 249 H (70-110) mg/dL Calcium 8.2 L (8.7-10.3) mg/dL 06/12/23 06/13/23 Range/Units 20:16 06:00 Lymphocytes # (Manual) (0.90-5.00) X 10*3/uL Carbon Dioxide (21.6-31.8) mmol/L BUN/Creatinine Ratio (12.00-20.00) Ratio POC Glucose (mg/dL) 287 H 116 H (70-110) mg/dL Calcium (8.7-10.3) mg/dL
[2023-06-14 05:31] LABS: Glucose,Whole Blood 101 mg/dL (70-110)
[2023-06-14] MEDS: INSULIN ASPART (NovoLOG) 100 UNIT/ML VIAL SQ SCH ×4 (06:06→22:15)
[2023-06-14] MEDS: HYDROcodone/APAP 5-325MG 1 EACH TAB PO PRN ×4 (06:53→18:44)
[2023-06-14] MEDS: METOPROLOL TARTRATE 50 MG TAB PO SCH ×2 (08:37→20:37)
[2023-06-14] MEDS: amLODIPine 10 MG TAB PO SCH (08:37)
[2023-06-14] MEDS: FUROSEMIDE 40 MG TAB PO SCH ×2 (08:37→16:39)
[2023-06-14] MEDS: PANTOPRAZOLE 40 MG TABLET PO SCH (08:37)
[2023-06-14] MEDS: TAMSULOSIN 0.4 MG CAP.ER.24H PO SCH (08:37)
[2023-06-14] MEDS: predniSONE 20 MG TAB PO SCH (08:37)
[2023-06-14] MEDS: APIXABAN 5 MG TAB PO SCH ×2 (08:37→20:38)
[2023-06-14] MEDS: hydrALAZINE HCL 25 MG TAB PO SCH ×2 (08:37→20:38)
[2023-06-14] MEDS: DULoxetine HCL 30 MG CAPSULE.DR PO SCH (08:38)
[2023-06-14] MEDS: ESCITALOPRAM 5 MG TAB PO SCH (08:39)
[2023-06-14] MEDS: DAPAGLIFLOZIN PROPANEDIOL 10 MG TABLET PO SCH (08:39)
[2023-06-14] MEDS: THEOPHYLLINE 24 HOUR 400 MG CAP.ER.24H PO SCH (08:40)
[2023-06-14] MEDS: TIOTROPIUM 2.5 MCG INHALER INHALATION SCH (09:13)
[2023-06-14] MEDS: ALBUTEROL HFA INHALER INHALATION PRN ×3 (09:13→21:42)
[2023-06-14] MEDS: SYMBICORT 160-4.5 MCG INHALER INHALATION SCH ×2 (09:13→21:42)
[2023-06-14 09:39] LABS: BUN/Creat Ratio 21.83 Ratio (12.00-20.00); Blood Urea Nitrogen 13.1 mg/dL (9.0-27.0); Calcium 8.5 mg/dL (8.7-10.3); Carbon Dioxide 38.6 mmol/L (21.6-31.8); Chloride 94 mmol/L (96-109); Glucose 81 mg/dL (70-110); Potassium 3.3 mmol/L (3.5-5.5); Sodium 140 mmol/L (135-145)
[2023-06-14 11:46] LABS: Glucose,Whole Blood 155 mg/dL (70-110)
[2023-06-14] MEDS ORDERED: Potassium Replacement Protocol 1 EACH MISC MISCELLANE PRN (12:59)
[2023-06-14] MEDS: POTASSIUM CHLORIDE ER 20 MEQ TAB.ER PO SCH ×3 (13:13→16:39)
--- NOTE | 2023-06-14 13:20 | P.PN ---
Subjective Progress Note Date: 06/12/23 Principal diagnosis: Covid 19 Patient is a 72-year-old male with a past medical history significant for asthma/COPD diabetes mellitus hypertension hyperlipidemia atrial f ibrillation patient recently did have a to admission at [facility] last 1 was on 06/04/2023 with the patient has been treated for COPD exacerbation and the patient also tested positive for COVID-19 on 06/04/2023, patient was eval by pulmonary and the patient did received a 5-day course of remdesivir, patient mention he was discharged home on 06/08/2023 , subsequently presenting to this ER for evaluation of increasing shortness of breath, patient did tested positive for covid chest x-ray with mostly diffuse infiltrate. On today's evaluation that is 06/12/2023, the patient continues to be afebrile, , the patient is breathing comfortably on 5L nasal cannula oxygen, the patient denies chest pain and no worsening cough or sputum production, patient denies abdominal pain and no diarrhea has been reported by the nursing staff Patient did have a white count of 9.84, creatinine 0.6, procalcitonin 0.05 Objective - Vital Signs Vital signs: Vital Signs Temp 98.3 F 06/12/23 14:04 Pulse 80 06/12/23 14:04 Resp 22 06/12/23 14:04 BP 132/65 06/12/23 14:04 Pulse Ox 93 L 06/12/23 14:04 FiO2 Intake & Output 06/12/23 06/12/23 06/13/23 06:59 18:59 06:59 Intake Total 720 Output Total 500 800 Balance -500 -80 Intake: Oral 720 Output: Urine 500 800 Other: Voiding Method Toilet Toilet - Exam GENERAL DESCRIPTION: An elderly male up in the chair in no distress RESPIRATORY SYSTEM: Unlabored breathing , decreased intensity of breath sounds HEART: S1 S2 regular rate and rhythm , ABDOMEN: Soft , no tenderness EXTREMITIES: No edema feet - Labs CBC & Chem 7: 06/12/23 04:55 06/14/23 05:54 Labs: Abnormal Lab Results - Last 24 Hours (Table) 06/12/23 06/12/23 06/12/23 Range/Units 04:55 04:55 17:20 RBC 4.14 L (4.40-5.60) X 10*6/uL Hgb 11.2 L (13.0-17.0) d/dL Hct 37.8 L (39.6-50.0) % MCHC 29.6 L (32.0-37.0) d/dL RDW 18.1 H (11.5-14.5) % Lymphocytes # (Manual) 0.69 L (0.90-5.00) X 10*3/uL Carbon Dioxide 38.0 H (21.6-31.8) mmol/L BUN/Creatinine Ratio 22.67 H (12.00-20.00) Ratio POC Glucose (mg/dL) 249 H (70-110) mg/dL Calcium 8.2 L (8.7-10.3) mg/dL 06/12/23 Range/Units 20:16 RBC (4.40-5.60) X 10*6/uL Hgb (13.0-17.0) d/dL Hct (39.6-50.0) % MCHC (32.0-37.0) d/dL RDW (11.5-14.5) % Lymphocytes # (Manual) (0.90-5.00) X 10*3/uL Carbon Dioxide (21.6-31.8) mmol/L BUN/Creatinine Ratio (12.00-20.00) Ratio POC Glucose (mg/dL) 287 H (70-110) mg/dL Calcium (8.7-10.3) mg/dL Assessment and Plan (1) COVID-19 virus infection Current Visit: Yes Status: Acute Code(s): U07.1 - SNOMED Code(s): 354898991 Plan: 1patient with a COVID-19 infection with initial admission to the [facility] on 06/04/2023 there was no evidence of any pneumonia however the patient did received a 5-day course of remdesivir now presenting to [facility] and a day after getting discharged from there with increasing shortness of breath patient not running any fever did have a normal white count clinic suspicious low for secondary bacterial pneumonia and symptoms are mostly suggestive of COPD exacerbation 2patient did have normal procalcitonin level that we make bacterial pneumonia to be less likely and no need for systemic antibiotic therapy 3patient to continue with the bronchodilators and steroids and monitor clinical course closely Dictation was produced using [employer] software. please excuse any grammatical, word or spelling errors. Time with Patient: Less than 30
--- NOTE | 2023-06-14 13:21 | P.PN ---
Subjective Progress Note Date: 06/13/23 Principal diagnosis: Covid 19 Patient is a 72-year-old male with a past medical history significant for asthma/COPD diabetes mellitus hypertension hyperlipidemia atrial f ibrillation patient recently did have a to admission at [facility] last 1 was on 06/04/2023 with the patient has been treated for COPD exacerbation and the patient also tested positive for COVID-19 on 06/04/2023, patient was eval by pulmonary and the patient did received a 5-day course of remdesivir, patient mention he was discharged home on 06/08/2023 , subsequently presenting to this ER for evaluation of increasing shortness of breath, patient did tested positive for covid chest x-ray with mostly diffuse infiltrate. On today's evaluation that is 06/13/2023, the patient denies any fever or any chills , the patient is breathing comfortably on 5 L nasal cannula oxygen, the patient denies chest pain, no worsening cough or sputum production, patient denies nausea or vomiting and no abdominal pain, no diarrhea Patient did have a white count of 9.84 as of yesterday, creatinine 0.6 Objective - Vital Signs Vital signs: Vital Signs Temp 98.4 F 06/13/23 07:35 Pulse 60 06/13/23 07:35 Resp 20 06/13/23 07:35 BP 130/72 06/13/23 07:35 Pulse Ox 98 06/13/23 07:35 FiO2 Intake & Output 06/12/23 06/13/23 06/13/23 18:59 06:59 18:59 Intake Total 720 Output Total 800 1000 Balance -80 -1000 Weight 124.8 kg Intake: Oral 720 Output: Urine 800 1000 Other: Voiding Method Toilet Toilet Toilet - Exam GENERAL DESCRIPTION: An elderly male up in the chair in no distress RESPIRATORY SYSTEM: Unlabored breathing , decreased intensity of breath sounds HEART: S1 S2 regular rate and rhythm , ABDOMEN: Soft , no tenderness EXTREMITIES: No edema feet - Labs CBC & Chem 7: 06/12/23 04:55 06/14/23 05:54 Labs: Abnormal Lab Results - Last 24 Hours (Table) 06/12/23 06/12/23 06/12/23 Range/Units 04:55 17:20 20:16 Neutrophils # (Manual) 8.76 H (1.80-7.70) X 10*3/uL Chloride (96-109) mmol/L Carbon Dioxide (21.6-31.8) mmol/L BUN/Creatinine Ratio (12.00-20.00) Ratio Glucose (70-110) mg/dL POC Glucose (mg/dL) 249 H 287 H (70-110) mg/dL Calcium (8.7-10.3) mg/dL 06/13/23 06/13/23 06/13/23 Range/Units 05:34 06:00 11:17 Neutrophils # (Manual) (1.80-7.70) X 10*3/uL Chloride 94 L (96-109) mmol/L Carbon Dioxide 38.6 H (21.6-31.8) mmol/L BUN/Creatinine Ratio 22.33 H (12.00-20.00) Ratio Glucose 136 H (70-110) mg/dL POC Glucose (mg/dL) 116 H 178 H (70-110) mg/dL Calcium 8.1 L (8.7-10.3) mg/dL Assessment and Plan (1) COVID-19 virus infection Current Visit: Yes Status: Acute Code(s): U07.1 - SNOMED Code(s): 109272347 Plan: 1patient with a COVID-19 infection with initial admission to the [facility] on 06/04/2023 there was no evidence of any pneumonia however the patient did received a 5-day course of remdesivir now presenting to [facility] and a day after getting discharged from there with increasing shortness of breath patient not running any fever did have a normal white count clinic suspicious low for secondary bacterial pneumonia and symptoms are mostly suggestive of COPD exacerbation 2patient did have normal procalcitonin level that we make bacterial pneumonia to be less likely and seems to be doing well off antibiotic therapy 3patient to continue with the bronchodilators and steroids per admitting team and monitor clinical course closely Dictation was produced using [employer] dictation software. please excuse any gram matical, word or spelling errors. Time with Patient: Less than 30
--- NOTE | 2023-06-14 16:54 | P.PN ---
Subjective Progress Note Date: 06/14/23 Principal diagnosis: Covid 19 Patient is a 72-year-old male with a past medical history significant for asthma/COPD diabetes mellitus hypertension hyperlipidemia atrial f ibrillation patient recently did have a to admission at [facility] last 1 was on 06/04/2023 with the patient has been treated for COPD exacerbation and the patient also tested positive for COVID-19 on 06/04/2023, patient was eval by pulmonary and the patient did received a 5-day course of remdesivir, patient mention he was discharged home on 06/08/2023 , subsequently presenting to this ER for evaluation of increasing shortness of breath, patient did tested positive for covid chest x-ray with mostly diffuse infiltrate. On today's evaluation that is 06/14/2023, the patient remains to be afebrile, the patient is breathing comfortably on a 5 L nasal cannula oxygen, the patient denies chest pain and no worsening cough, patient denies nausea/vomiting /diarrhea and denies abdominal pain Patient did have a white count of 9.84 as of 06/12/2023, creatinine is 0.6 Objective - Vital Signs Vital signs: Vital Signs Temp 98.0 F 06/14/23 07:39 Pulse 85 06/14/23 07:39 Resp 18 06/14/23 09:41 BP 126/82 06/14/23 07:39 Pulse Ox 99 06/14/23 07:39 FiO2 Intake & Output 06/13/23 06/14/23 06/14/23 18:59 06:59 18:59 Intake Total 1080 Output Total 1900 650 Balance -820 -650 Weight 109.6 kg Intake: Oral 1080 Output: Urine 1900 650 Other: Voiding Method Toilet Toilet Toilet # Voids 1,000 1 # Bowel Movements 1 - Exam GENERAL DESCRIPTION: An elderly male up in the chair in no distress RESPIRATORY SYSTEM: Unlabored breathing , decreased intensity of breath sounds HEART: S1 S2 regular rate and rhythm , ABDOMEN: Soft , no tenderness EXTREMITIES: No edema feet - Labs CBC & Chem 7: 06/12/23 04:55 06/14/23 05:54 Labs: Abnormal Lab Results - Last 24 Hours (Table) 06/13/23 06/13/23 06/14/23 Range/Units 16:47 21:20 05:54 Potassium 3.3 L (3.5-5.5) mmol/L Chloride 94 L (96-109) mmol/L Carbon Dioxide 38.6 H (21.6-31.8) mmol/L BUN/Creatinine Ratio 21.83 H (12.00-20.00) Ratio POC Glucose (mg/dL) 206 H 172 H (70-110) mg/dL Calcium 8.5 L (8.7-10.3) mg/dL 06/14/23 Range/Units 11:44 Potassium (3.5-5.5) mmol/L Chloride (96-109) mmol/L Carbon Dioxide (21.6-31.8) mmol/L BUN/Creatinine Ratio (12.00-20.00) Ratio POC Glucose (mg/dL) 155 H (70-110) mg/dL Calcium (8.7-10.3) mg/dL Assessment and Plan (1) COVID-19 virus infection Current Visit: Yes Status: Acute Code(s): U07.1 - COVID-19 SNOMED Code(s): 669965902 Plan: 1patient with a COVID-19 infection with initial admission to the [facility] on 06/04/2023 there was no evidence of any pneumonia however the patient did received a 5-day course of remdesivir now presenting to [facility] and a day after getting discharged from there with increasing shortness of breath patient not running any fever did have a normal white count clinic suspicious low for secondary bacterial pneumonia and symptoms are mostly suggestive of COPD exacerbation 2patient did have normal procalcitonin level that we make bacterial pneumonia to be less likely and seems to be doing well off antibiotic therapy 3patient to continue with the bronchodilators and prednisone and monitor closely off antibiotic therapy Dictation was produced using [employer] dictation software. please excuse any grammatical, word or spelling errors. Time with Patient: Less than 30
[2023-06-14 16:59] LABS: Glucose,Whole Blood 236 mg/dL (70-110)
[2023-06-14] MEDS: ATORVASTATIN 40 MG TAB PO SCH (20:37)
[2023-06-14] MEDS: MELATONIN 3 MG TABLET PO PRN (20:37)
[2023-06-14 21:00] LABS: Glucose,Whole Blood 178 mg/dL (70-110)
[2023-06-14] MEDS: INSULIN DETEMIR (LEVEMIR) 100 UNIT/ML SYR SQ SCH (22:15)
[2023-06-15] MEDS: HYDROcodone/APAP 5-325MG 1 EACH TAB PO PRN ×2 (05:05→11:32)
--- NOTE | 2023-06-15 06:17 | P.PN ---
Subjective Progress Note Date: 06/14/23 72-year-old male came in with complaints of shortness of breath weakness and fatigue and is found to have COVID-19. Patient uses fully dysfunction at home does have history of advanced COPD, poor functionality but doesn't like rehabilitation places as if had falls there. Patient denied any fever chills. Patient does have history of congestive heart failure patient is bit hyponatremic, serum BNP is around 400 appears to be dry. Patient was given IV fluids patient takes Lasix Aldactone at home. Patient had diastolic dysfunction as well as a systolic dysfunction with EF of around 40% from for his recent echocardiogram. 06/11/2023 Patient is seen and evaluated and followed this morning continues on 4 L of oxygen which she chronically wears patient. Patient has significant past medical history of COPD most likely COPD exacerbation. ProCalcitonin was negative. Patient did receive a five-day course of remdesivir for Covid last week. Covid testing here was still positive. Patient is currently afebrile no reports of worsening shortness of breath or chest pain. Patient reports not eating very well and reports weakness. Awaiting physical therapy evaluation. Encouraged to increase activity as tolerated. 06/12/2023 Patient is evaluated today sitting up in bed. He is weak and PT/OT will follow up with the patient tomorrow although he has refused subacute rehab. Wears 4L of oxygen chronically, currently on 5L at bedside with documented oxygen saturations of 99%. Patient can be weaned if tolerated. He has scattered wheezing throughout and reports worsening shortness of breath today. We will follow up the chest xray today. Recommend to stop the IV fluids and patient has been resumed on his home diuretic. Patient will be started on oral prednisone and will require an increase in insulin regimen to avoid hyperglycemia. 06/13/2023 Patient is seen and evaluated in follow-up currently awaiting physical therapy to evaluate the patient. Patient continues to report weakness and would like to work with physical therapy for strength and mobility and is agreeable to do so. Patient remains on 3-4 L of oxygen via nasal cannula which is chronic for him and currently receiving inhalers as patient is Covid positive unable to receive DuoNeb treatments. Patient chronically uses nebulize treatments outpatient for his chronic COPD. Patient with chronic lower extremity swelling although is improved and will continue with Miguel wraps to bilateral lower extremities and elevating well at rest. We'll place a consult for possible inpatient rehab at [facility] as patient may benefit from aggressive physical therapy as patient was independent in ADLs prior to this admission. 06/14/2023 Patient is seen and evaluated in follow-up today awaiting insurance authorization as patient is considering possible inpatient rehab at [facility]. Patient is afebrile with no reported of worsening shortness of breath maintained on his chronic 4 L. Patient also continues with albuterol and Symbicort and home Lasix has been resumed. Lower extremities slightly swollen will continue with Miguel wraps and elevating leg rest. Encouraged increase activity as tolerated. Patient reports continued weakness and asking when he is being discharged. Will await for insurance authorization. Review of systems: Constitutional: reports of fatigue, no fever, or chills Cardiovascular: No reports of chest pain or palpitations Respiratory: No reports of worsening shortness of breath, reports chronic cough GI: No reports of nausea, vomiting, or diarrhea, reports not much of an appetite : No reports of dysuria or retention Neurovascular: reports of generalized weakness All medications have been reviewed PHYSICAL EXAMINATION: GENERAL: The patient is alert and oriented x3, not in any acute distress. Well developed, well nourished. Obese. HEENT: Pupils are round and equally reacting to light. EOMI. No scleral icterus. No conjunctival pallor. Normocephalic, atraumatic. No pharyngeal erythema. No thyromegaly. CARDIOVASCULAR: S1 and S2 present. No murmurs, rubs, or gallops. PULMONARY Diminished breath sounds bilaterally with coarse scattered rhonchi noted. Forced expiratory wheezing noted. ABDOMEN: Soft, nontender, nondistended, normoactive bowel sounds. No palpable organomegaly. MUSCULOSKELETAL: No joint swelling or deformity. EXTREMITIES: No cyanosis, clubbing,mild lower extremity edema nonpitting, appears improved from previous admissions NEUROLOGICAL: Gross neurological examination did not reveal any focal deficits. Diffusely weak SKIN: No rashes. Assessment: -Shortness of breath: Secondary to possibly Covid superimposed on his chronic medical problems including COPD -Generalized weakness await physical therapy evaluation -Hyponatremia hypovolemic, improved with IV fluids, diuretics were held. Sodium has normalized now chest xray showing vascular congestion. -History of congestive heart failure chronic systolic as well as diastolic dysfunction without any acute exacerbation at this time -Ruled out pulmonary embolism -Chronic A. fib on atrial fibrillation, presently rate controlled -chronic hypoxic respiratory failure secondary to COPD, acute exacerbation -type 2 diabetes mellitus -Hypertension -Lactic acidosis secondary to metformin which will be discontinued. Patient is not a candidate for metformin. -Hyperlipidemia -Gastroesophageal reflux disease -Diabetic peripheral neuropathy -Generalized weakness age-related muscle atrophy along with chronic medical problems physical therapy and occupation therapy evaluation -Depression history -DVT prophylaxis: On anticoagulation as mentioned above Plan: Patient to continue on current medications including inhalers as he is not able to receive DuoNeb treatment secondary to Covid Encouraged increased activity as tolerated and awaiting physical therapy evaluation as patient reports weakness. Case management to follow and will consider possible inpatient rehab and a consult was placed for [facility]. Patient has been accepted and awaiting insurance authorization which is currently pending Patient has had multiple hospitalizations and reports weakness and reports having bad experiences at [facility] Infectious disease following for Covid and patient did receive Remdesivir for 5 days last week at [facility]. Covid testing here is still positive Home dose of Lasix resumed Patient has been started on oral prednisone and long active insulin as blood glucose is elevated. Recommend to continue ACHS and sliding scale insulin may need further adjustments pending blood glucose trend. Currently awaiting on insurance authorization. Will discuss further with case m anagement and follow-up. Possible discharge in the next 24-48 hours The impression and plan of care has been dictated by Ange Becerra, Nurse Practitioner as directed. Dr. Jean Carlos MD I have performed a history and examination and MDM of this patient, discussed the same with the dictator, and agree with the dictator's assessment and plan as written ,documented as a scribe. Based on total visit time, I have performed more than 50% of the visit. Objective - Vital Signs Vital signs: Vital Signs Temp 98.0 F 06/14/23 07:39 Pulse 85 06/14/23 07:39 Resp 19 06/14/23 07:39 BP 126/82 06/14/23 07:39 Pulse Ox 99 06/14/23 07:39 FiO2 Intake & Output 06/13/23 06/14/23 06/14/23 18:59 06:59 18:59 Intake Total 1080 Output Total 1900 650 Balance -820 -650 Weight 109.6 kg Intake: Oral 1080 Output: Urine 1900 650 Other: Voiding Method Toilet Toilet # Voids 1,000 1 # Bowel Movements 1 - Labs CBC & Chem 7: 06/12/23 04:55 06/14/23 05:54 Labs: Abnormal Lab Results - Last 24 Hours (Table) 06/12/23 06/13/23 06/13/23 Range/Units 04:55 05:34 11:17 Neutrophils # (Manual) 8.76 H (1.80-7.70) X 10*3/uL Potassium (3.5-5.5) mmol/L Chloride 94 L (96-109) mmol/L Carbon Dioxide 38.6 H (21.6-31.8) mmol/L BUN/Creatinine Ratio 22.33 H (12.00-20.00) Ratio Glucose 136 H (70-110) mg/dL POC Glucose (mg/dL) 178 H (70-110) mg/dL Calcium 8.1 L (8.7-10.3) mg/dL 06/13/23 06/13/23 06/14/23 Range/Units 16:47 21:20 05:54 Neutrophils # (Manual) (1.80-7.70) X 10*3/uL Potassium 3.3 L (3.5-5.5) mmol/L Chloride 94 L (96-109) mmol/L Carbon Dioxide 38.6 H (21.6-31.8) mmol/L BUN/Creatinine Ratio 21.83 H (12.00-20.00) Ratio Glucose (70-110) mg/dL POC Glucose (mg/dL) 206 H 172 H (70-110) mg/dL Calcium 8.5 L (8.7-10.3) mg/dL
[2023-06-15 06:46] LABS: Glucose,Whole Blood 134 mg/dL (70-110)
[2023-06-15] MEDS: INSULIN ASPART (NovoLOG) 100 UNIT/ML VIAL SQ SCH ×2 (06:56→12:26)
[2023-06-15 08:25] VITALS: BP 153/82; PULSE 70; RESP 18; TEMP 97.9
[2023-06-15] MEDS: amLODIPine 10 MG TAB PO SCH (09:15)
[2023-06-15] MEDS: APIXABAN 5 MG TAB PO SCH (09:15)
[2023-06-15] MEDS: ESCITALOPRAM 5 MG TAB PO SCH (09:16)
[2023-06-15] MEDS: FUROSEMIDE 40 MG TAB PO SCH (09:16)
[2023-06-15] MEDS: DULoxetine HCL 30 MG CAPSULE.DR PO SCH (09:16)
[2023-06-15] MEDS: hydrALAZINE HCL 25 MG TAB PO SCH (09:16)
[2023-06-15] MEDS: DAPAGLIFLOZIN PROPANEDIOL 10 MG TABLET PO SCH (09:16)
[2023-06-15] MEDS: TAMSULOSIN 0.4 MG CAP.ER.24H PO SCH (09:17)
[2023-06-15] MEDS: METOPROLOL TARTRATE 50 MG TAB PO SCH (09:17)
[2023-06-15] MEDS: predniSONE 20 MG TAB PO SCH (09:17)
[2023-06-15] MEDS: PANTOPRAZOLE 40 MG TABLET PO SCH (09:17)
[2023-06-15] MEDS: THEOPHYLLINE 24 HOUR 400 MG CAP.ER.24H PO SCH (09:17)
[2023-06-15] MEDS: SYMBICORT 160-4.5 MCG INHALER INHALATION SCH (09:52)
[2023-06-15] MEDS: TIOTROPIUM 2.5 MCG INHALER INHALATION SCH (09:52)
[2023-06-15] MEDS: ALBUTEROL HFA INHALER INHALATION PRN (09:52)
[2023-06-15 11:30] LABS: Glucose,Whole Blood 159 mg/dL (70-110)
[2023-06-15 12:08] VITALS: BMI 33.2
--- NOTE | 2023-06-15 12:14 | P.PN ---
Subjective Progress Note Date: 06/15/23 Principal diagnosis: Covid 19 Patient is a 72-year-old male with a past medical history significant for asthma/COPD diabetes mellitus hypertension hyperlipidemia atrial f ibrillation patient recently did have a to admission at [facility] last 1 was on 06/04/2023 with the patient has been treated for COPD exacerbation and the patient also tested positive for COVID-19 on 06/04/2023, patient was eval by pulmonary and the patient did received a 5-day course of remdesivir, patient mention he was discharged home on 06/08/2023 , subsequently presenting to this ER for evaluation of increasing shortness of breath, patient did tested positive for covid chest x-ray with mostly diffuse infiltrate. On today's evaluation that is 06/15/2023, the patient continues to be afebrile, the patient is breathing on 5 L nasal cannula oxygen, the patient denies chest pain and no worsening cough or sputum production, patient denies abdominal pain, no nausea/vomiting /diarrhea Patient did have a white count of 9.84 as of 06/12/2023, creatinine is 0.6, no labs were drawn today Objective - Vital Signs Vital signs: Vital Signs Temp 97.9 F 06/15/23 07:34 Pulse 70 06/15/23 08:00 Resp 18 06/15/23 08:00 BP 153/82 06/15/23 07:34 Pulse Ox 95 06/15/23 07:34 FiO2 Intake & Output 06/14/23 06/15/23 06/15/23 18:59 06:59 18:59 Intake Total 500 Output Total 950 850 200 Balance -450 -850 -200 Weight 111 kg 111 kg Intake: Oral 500 Output: Urine 950 850 200 Other: Voiding Method Toilet Toilet # Voids 1 # Bowel Movements 1 1 - Labs CBC & Chem 7: 06/12/23 04:55 06/14/23 05:54 Labs: Abnormal Lab Results - Last 24 Hours (Table) 06/14/23 06/14/23 06/15/23 Range/Units 16:55 20:59 06:44 POC Glucose (mg/dL) 236 H 178 H 134 H (70-110) mg/dL 06/15/23 Range/Units 11:28 POC Glucose (mg/dL) 159 H (70-110) mg/dL Assessment and Plan (1) COVID-19 virus infection Current Visit: Yes Status: Acute Code(s): U07.1 - COVID-19 SNOMED Code(s): 079563985 Plan: 1patient with a COVID-19 infection with initial admission to the [facility] on 06/04/2023 there was no evidence of any pneumonia however the patient did received a 5-day course of remdesivir now presenting to [facility] and a day after getting discharged from there with increasing shortness of breath patient not running any fever did have a normal white count clinic suspicious low for secondary bacterial pneumonia and symptoms are mostly suggestive of COPD exacerbation 2patient did have normal procalcitonin level that we make bacterial pneumonia to be less likely and seems to be doing well off antibiotic therapy 3patient seemed to have shown clinical improvement and will continue with the bronchodilators and prednisone and monitor closely off antibiotic therapy Dictation was produced using [employer] dictation software. please excuse any grammatical, word or spelling errors. Time with Patient: Less than 30
[2023-06-15 13:47] LABS: BUN/Creat Ratio 22.33 Ratio (12.00-20.00); Blood Urea Nitrogen 13.4 mg/dL (9.0-27.0); Calcium 8.3 mg/dL (8.7-10.3); Carbon Dioxide 34.9 mmol/L (21.6-31.8); Chloride 96 mmol/L (96-109); Glucose 98 mg/dL (70-110); Potassium 3.4 mmol/L (3.5-5.5); Sodium 142 mmol/L (135-145)
--- NOTE | 2023-06-18 10:48 | P.DS ---
Providers Date of admission: 06/09/23 22:38 Expected date of discharge: 06/15/23 Attending physician: Kay Monsalve MD Consults: 06/09/23 22:42 Consult Physician Routine Consulting Provider: Paulo De Anda Consult Reason/Comments: covid 19 infection Do you want consulting provider notified?: Yes 06/13/23 13:48 Consult Physician Urgent Consulting Provider: Bridger Monsivais Consult Reason/Comments: weakness, gait dysfunction, eval for inpatient rehab Do you want consulting provider notified?: Yes Primary care physician: [facility] Course: Final diagnosis -Shortness of breath: Secondary to possibly Covid superimposed on his chronic medical problems including COPD -Generalized weakness secondary to significant comorbidities including COPD and CHF -Hyponatremia hypovolemic, improved with IV fluids, diuretics were held. Sodium has normalized now chest xray showing vascular congestion. -History of congestive heart failure chronic systolic as well as diastolic dysfunction without any acute exacerbation at this time -Ruled out pulmonary embolism -Chronic A. fib on atrial fibrillation, presently rate controlled -chronic hypoxic respiratory failure secondary to COPD, acute exacerbation -type 2 diabetes mellitus -Hypertension -Lactic acidosis secondary to metformin -Hyperlipidemia -Gastroesophageal reflux disease -Diabetic peripheral neuropathy -Generalized weakness age-related muscle atrophy along with chronic medical problems -Depression history -DVT prophylaxis Discharge disposition Patient is being discharged in a stable condition with guarded prognosis to home with home care. Patient will follow-up with Dr. Jackson in the outpatient setting upon discharge. Patient is to continue with prednisone taper along with vitamin and zinc supplementation outpatient follow-up with pulmonary and cardiology as scheduled. Total time taken is greater than 35 minutes. Hospital course This is a 72-year-old male who was recently admitted with shortness of breath multifactorial related to COPD as well as found to be positive for Covid on previous admission at [facility]. Patient was treated with five- day course of remdesivir sent home. Patient reporting progressive weakness and continued shortness of breath. Patient was evaluated by physical therapy recommending rehab and patient was agreeable to inpatient rehab. [facility] physicians evaluated and agreed to accept the patient although continue to wait for insurance authorization. Patient did not want to wait any further for this process and reported wanted to go home. Home care is being arranged and patient instructed to follow-up with primary care provider along with cardiology and pulmonary outpatient. Currently no reports of chest pain, shortness of breath, or palpitations. Patient is afebrile. No reports of nausea or vomiting and patient is tolerating diet. Patient will be discharged today. High risk for readmissions given patient's significant comorbidities and continued noncompliance with medication and follow-up. Physical exam: Gen: This is a 72-year-old male who is awake, alert and oriented 3, well- developed, well-nourished, obese, elderly and ill-appearing HEENT: Head is atraumatic, normocephalic. Pupils equal, round. Sclerae is anicteric. NECK: Supple. No JVD. No lymphadenopathy. No thyromegaly. LUNGS: Diminished breath sounds bilaterally with no significant wheezes or than forced expiratory wheezes and scattered rhonchi. No intercostal retractions. HEART: Regular rate and rhythm. No murmur. ABDOMEN: Soft. Bowel sounds are present. No masses. No tenderness. EXTREMITIES: No pedal edema. No calf tenderness. NEUROLOGICAL: Patient is awake, alert and oriented x3. Cranial nerves 2 through 12 are grossly intact. Please refer to medication reconciliation sheet for a list of medications. The impression and plan of care has been dictated by Ange Becerra, Nurse Practitioner as directed. Dr. Jean Carlos MD I have performed a history and examination and MDM of this patient, discussed the same with the dictator, and agree with the dictator's assessment and plan as written ,documented as a scribe. Based on total visit time, I have performed more than 50% of the visit. Patient Condition at Discharge: Stable Plan - Discharge Summary Discharge Rx Participant: No New Discharge Prescriptions: New predniSONE 10 mg PO DIRECTED #30 tab Continue Albuterol Nebulized [Ventolin Nebulized] 2.5 mg INHALATION RT-Q6H PRN PRN Reason: Shortness Of Breath Apixaban [Eliquis] 5 mg PO BID #60 tab Omeprazole 40 mg PO DAILY Escitalopram [Lexapro] 5 mg PO DAILY metFORMIN HCL [Glucophage] 500 mg PO BID tab Spironolactone [Aldactone] 25 mg PO DAILY #30 tab Fluticasone/Vilanterol [Breo Ellipta 100-25 Mcg Inhaler] 1 puff INHALATION RT-DAILY DULoxetine HCL [Cymbalta] 30 mg PO DAILY Dapagliflozin Propanediol [Farxiga] 10 mg PO DAILY #30 tablet Nicotine 21Mg/24Hr Patch [Habitrol] 1 patch TRANSDERM DAILY PRN PRN Reason: Nicotine Cravings Ipratropium-Albuterol Nebulize [Duoneb 0.5 mg-3 mg/3 ml Soln] 3 ml INHALATION RT-Q6H PRN PRN Reason: Shortness Of Breath Or Wheezing Tamsulosin [Flomax] 0.4 mg PO DAILY Fluticasone Nasal [place] [Flonase Nasal [place]] 1 spr EA NOSTRIL Q12H PRN PRN Reason: nasal drainage Theophylline Anhydrous [Theophylline ER] 400 mg PO DAILY Albuterol Sulfate [Proair Hfa] 2 puff INHALATION RT-Q6H PRN PRN Reason: Shortness Of Breath Metoprolol Tartrate [Lopressor] 50 mg PO BID tab Melatonin 6 mg PO HS PRN 10 Days #20 tab PRN Reason: Insomnia Atorvastatin Calcium [Lipitor] 40 mg PO HS Acetaminophen Tab [Tylenol] 650 mg PO Q6HR PRN tab PRN Reason: Fever And/ Or Pain Budesonide-Formot 160-4.5 Mcg [Symbicort 160-4.5 Mcg Inhaler] 2 puff INHALATION RT-BID hydrALAZINE HCL [Apresoline] 25 mg PO BID Potassium Chloride ER [K-Dur 10] 10 meq PO DAILY amLODIPine [Norvasc] 10 mg PO DAILY Furosemide [Lasix] 40 mg PO BID #60 tab HYDROcodone/APAP 10-325MG [Campbell 10-325] 1 tab PO Q6HR PRN PRN Reason: Pain Discontinued predniSONE 5 mg PO DIRECTED predniSONE See Taper PO DIRECTED Levofloxacin [Levaquin] 750 mg PO DIRECTED Discharge Medication List Albuterol Nebulized [Ventolin Nebulized] 2.5 mg INHALATION RT-Q6H PRN 05/08/20 [History] Apixaban [Eliquis] 5 mg PO BID #60 tab 07/08/20 [Rx] Ipratropium-Albuterol Nebulize [Duoneb 0.5 mg-3 mg/3 ml Soln] 3 ml INHALATION RT-Q6H PRN 05/02/21 [History] Tamsulosin [Flomax] 0.4 mg PO DAILY 12/07/21 [History] Albuterol Sulfate [Proair Hfa] 2 puff INHALATION RT-Q6H PRN 02/18/22 [History] Fluticasone Nasal [place] [Flonase Nasal [place]] 1 spr EA NOSTRIL Q12H PRN 02/18/22 [History] Theophylline Anhydrous [Theophylline ER] 400 mg PO DAILY 02/18/22 [History] Escitalopram [Lexapro] 5 mg PO DAILY 08/29/22 [History] Omeprazole 40 mg PO DAILY 08/29/22 [History] Metoprolol Tartrate [Lopressor] 50 mg PO BID tab 09/07/22 [Rx] metFORMIN HCL [Glucophage] 500 mg PO BID tab 09/07/22 [Rx] Melatonin 6 mg PO HS PRN 10 Days #20 tab 11/29/22 [Rx] Spironolactone [Aldactone] 25 mg PO DAILY #30 tab 11/29/22 [Rx] Atorvastatin Calcium [Lipitor] 40 mg PO HS 12/31/22 [History] DULoxetine HCL [Cymbalta] 30 mg PO DAILY 12/31/22 [History] Fluticasone/Vilanterol [Breo Ellipta 100-25 Mcg Inhaler] 1 puff INHALATION RT- DAILY 12/31/22 [History] Acetaminophen Tab [Tylenol] 650 mg PO Q6HR PRN tab 01/21/23 [Rx] Dapagliflozin Propanediol [Farxiga] 10 mg PO DAILY #30 tablet 01/21/23 [Rx] Budesonide-Formot 160-4.5 Mcg [Symbicort 160-4.5 Mcg Inhaler] 2 puff INHALATION RT-BID 02/11/23 [History] Nicotine 21Mg/24Hr Patch [Habitrol] 1 patch TRANSDERM DAILY PRN 04/25/23 [History] Potassium Chloride ER [K-Dur 10] 10 meq PO DAILY 04/25/23 [History] amLODIPine [Norvasc] 10 mg PO DAILY 04/25/23 [History] hydrALAZINE HCL [Apresoline] 25 mg PO BID 04/25/23 [History] Furosemide [Lasix] 40 mg PO BID #60 tab 04/29/23 [Rx] HYDROcodone/APAP 10-325MG [Campbell 10-325] 1 tab PO Q6HR PRN 06/09/23 [History] predniSONE 10 mg PO DIRECTED #30 tab 06/15/23 [Rx] Follow up Appointment(s)/Referral(s): [facility], [NON-STAFF] - As Needed Care,[facility] [NON-STAFF] - As Needed Elver Jackson MD [Primary Care Provider] - 1-2 days (Office is not answering. Please call for follow-up appointment.) Activity/Diet/Wound Care/Special Instructions: Please call [facility] if you are interested in their program: #[phone] Activity Limited until follow-up Follow-up with primary care provider on discharge Follow-up pulmonary outpatient Continue taking medications as prescribed Discharge/Stand Alone Forms: Who Do I Call?, Assisted Living Facilities, Help In The Home Discharge Disposition: HOME WITH HOME HEALTH SERVICES
== END 2023-06-15 14:26 | disposition home health service (06) | DRG 178 ==
LOC: EC 20:18 → 4SSUR 22:38
PROVIDERS: ADMIT Internal Medicine; ATTEND Internal Medicine
DX: U07.1 COVID-19 (principal); E87.1 Hypo-osmolality and hyponatremia; J44.1 Chronic obstructive pulmonary disease with (acute) exacerbation; I50.42 Chronic combined systolic (congestive) and diastolic (congestive) heart failure; I48.20 Chronic atrial fibrillation, unspecified; J96.11 Chronic respiratory failure with hypoxia; E86.0 Dehydration; F17.290 Nicotine dependence, other tobacco product, uncomplicated; Z99.81 Dependence on supplemental oxygen; Z91.81 History of falling; E11.42 Type 2 diabetes mellitus with diabetic polyneuropathy; E86.1 Hypovolemia; F41.9 Anxiety disorder, unspecified; F32.A Depression, unspecified; I11.0 Hypertensive heart disease with heart failure; F10.11 Alcohol abuse, in remission; K21.9 Gastro-esophageal reflux disease without esophagitis; G89.29 Other chronic pain; T38.3X5A Adverse effect of insulin and oral hypoglycemic [antidiabetic] drugs, initial encounter; M54.9 Dorsalgia, unspecified; M19.90 Unspecified osteoarthritis, unspecified site; T50.2X5A Adverse effect of carbonic-anhydrase inhibitors, benzothiadiazides and other diuretics, initial encounter; Z63.72 Alcoholism and drug addiction in family; Z74.1 Need for assistance with personal care; Z79.01 Long term (current) use of anticoagulants; Z79.51 Long term (current) use of inhaled steroids; Z79.84 Long term (current) use of oral hypoglycemic drugs; Z79.899 Other long term (current) drug therapy; Z81.1 Family history of alcohol abuse and dependence; Z82.49 Family history of ischemic heart disease and other diseases of the circulatory system; Z82.5 Family history of asthma and other chronic lower respiratory diseases; Z87.01 Personal history of pneumonia (recurrent); Z88.1 Allergy status to other antibiotic agents
CPT/HCPCS: 36415; 71046; 80048; 80053; 81003; 83605; 83735; 83880; 84145; 85025; 85379; 85610; 85730; 86140; 87636; 93005; 94640; 94760; 96361; 96374; 96375; 99285

== ENCOUNTER 2023-08-17 16:32 | Inpatient (IN) | payer MEDICARE, OTHER ==
[2023-08-17] MEDS ORDERED: IPRATROPIUM-ALBUTEROL 3 ML NEB INHALATION STA (17:01)
[2023-08-17] MEDS ORDERED: cefTRIAXone IN SWFI 1,000 MG/10 ML SYRINGE IVP STA (17:01)
--- NOTE | 2023-08-17 18:07 | ED ---
General Adult HPI - General Chief complaint: Shortness of Breath Stated complaint: SAMIR Time Seen by Provider: 08/17/23 16:45 Source: patient, EMS, RN notes reviewed, old records reviewed Mode of arrival: EMS Limitations: no limitations - History of Present Illness Initial comments: This is a 72-year-old male who is transferred to us from [facility]. Patient was sent to us because he had an exacerbation of COPD and was still having difficulty breathing and did not feel comfortable going home. Patient was transferred to us where he has had previous visits. Patient denies any chest pain. Patient has any fever chills per patient states she does have quite a bit of a cough. Patient denies any abdominal pain. Patient denies any vomiting, diarrhea. Patient denies lightheadedness or dizziness. Patient states his swelling in the legs but that's typical. - Related Data Home Medications Medication Instructions Recorded Confirmed Albuterol Nebulized [Ventolin 2.5 mg INHALATION RT-Q6H PRN 05/08/20 06/09/23 Nebulized] Ipratropium-Albuterol Nebulize 3 ml INHALATION RT-Q6H PRN 05/02/21 06/09/23 [Duoneb 0.5 mg-3 mg/3 ml Soln] Tamsulosin [Flomax] 0.4 mg PO DAILY 12/07/21 06/09/23 Albuterol Sulfate [Proair Hfa] 2 puff INHALATION RT-Q6H PRN 02/18/22 06/09/23 Fluticasone Nasal [place] [Flonase 1 spr EA NOSTRIL Q12H PRN 02/18/22 06/09/23 Nasal [place]] Theophylline Anhydrous 400 mg PO DAILY 02/18/22 06/09/23 [Theophylline ER] Escitalopram [Lexapro] 5 mg PO DAILY 08/29/22 06/09/23 Omeprazole 40 mg PO DAILY 08/29/22 06/09/23 Atorvastatin Calcium [Lipitor] 40 mg PO HS 12/31/22 06/09/23 DULoxetine HCL [Cymbalta] 30 mg PO DAILY 12/31/22 06/09/23 Fluticasone/Vilanterol [Breo 1 puff INHALATION RT-DAILY 12/31/22 06/09/23 Ellipta 100-25 Mcg Inhaler] Budesonide-Formot 160-4.5 Mcg 2 puff INHALATION RT-BID 02/11/23 06/09/23 [Symbicort 160-4.5 Mcg Inhaler] Nicotine 21Mg/24Hr Patch [Habitrol] 1 patch TRANSDERM DAILY PRN 04/25/23 06/09/23 Potassium Chloride ER [K-Dur 10] 10 meq PO DAILY 04/25/23 06/09/23 amLODIPine [Norvasc] 10 mg PO DAILY 04/25/23 06/09/23 hydrALAZINE HCL [Apresoline] 25 mg PO BID 04/25/23 06/09/23 HYDROcodone/APAP 10-325MG [[place] 1 tab PO Q6HR PRN 06/09/23 06/09/23 10-325] Previous Rx's Medication Instructions Recorded Apixaban [Eliquis] 5 mg PO BID #60 tab 07/08/20 Metoprolol Tartrate [Lopressor] 50 mg PO BID tab 09/07/22 metFORMIN HCL [Glucophage] 500 mg PO BID tab 09/07/22 Melatonin 6 mg PO HS PRN 10 Days #20 tab 11/29/22 Spironolactone [Aldactone] 25 mg PO DAILY #30 tab 11/29/22 Acetaminophen Tab [Tylenol] 650 mg PO Q6HR PRN tab 01/21/23 Dapagliflozin Propanediol [Farxiga] 10 mg PO DAILY #30 tablet 01/21/23 Furosemide [Lasix] 40 mg PO BID #60 tab 04/29/23 predniSONE 10 mg PO DIRECTED #30 tab 06/15/23 Allergies Allergy/AdvReac Type Severity Reaction Status Date / Time ANJU Inhibitors Allergy Unknown - Verified 08/17/23 16:42 [facility] doxycycline Allergy Anaphylaxis Verified 08/17/23 16:42 Penicillins Allergy Anaphylaxis, Verified 08/17/23 16:42 Seizure Review of Systems ROS Statement: Those systems with pertinent positive or pertinent negative responses have been documented in the HPI. ROS Other: All systems not noted in ROS Statement are negative. Past Medical History Past Medical History: Atrial Fibrillation, Asthma, COPD, Diabetes Mellitus, GERD/Reflux, Hyperlipidemia, Hypertension, Osteoarthritis (OA), Pneumonia Additional Past Medical History / Comment(s): Afib RVR, home oxygen prn, bronchitis, pt states he is on metformin to prevent becoming diabetic, neuropathy bilateral feet/L hand, chronic pain back,/bilateral hips/knees/elbows and shoulders, L heel pain, FALLS, cataracts. 11/23/22 ex-spouse phylicia Waterman reports history is accurate to her knowledge. current adominal hernia noted History of Any Multi-Drug Resistant Organisms: None Reported Past Surgical History: Appendectomy Additional Past Surgical History / Comment(s): Colonoscopy Past Anesthesia/Blood Transfusion Reactions: No Reported Reaction Past Psychological History: Unable to Obtain, Anxiety, Depression Smoking Status: Current every day smoker, Vaper Past Alcohol Use History: None Reported Past Drug Use History: None Reported - Past Family History Father Family Medical History: Congestive Heart Failure (CHF), COPD Additional Family Medical History / Comment(s): Father was an alcoholic but was able to quit drinking Mother Family Medical History: Congestive Heart Failure (CHF), COPD Additional Family Medical History / Comment(s): Mother was an alcoholic. Daughter(s) Additional Family Medical History / Comment(s): Liver cancer General Exam - General Exam Comments Initial Comments: GENERAL: Patient is well-developed and well-nourished. Patient is nontoxic and well- hydrated and is in mild distress. ENT: Neck is soft and supple. No significant lymphadenopathy is noted. Oropharynx is clear. Moist mucous membranes. Neck has full range of motion without eliciting any pain. EYES: The sclera were anicteric and conjunctiva were pink and moist. Extraocular movements were intact and pupils were equal round and reactive to light. Eyelids were unremarkable. PULMONARY: Patient has expiratory wheezing and diminished breath sounds throughout CARDIOVASCULAR: There is a regular rate and rhythm without any murmurs gallops or rubs. ABDOMEN: Soft and nontender with normal bowel sounds. SKIN: Skin is clear with no lesions or rashes and otherwise unremarkable. NEUROLOGIC: Patient is alert and oriented x3. Cranial nerves II through XII are grossly intact. Motor and sensory are also intact. Normal speech, volume and content. Symmetrical smile. MUSCULOSKELETAL: Normal extremities with adequate strength and full range of motion. No lower extremity swelling or edema. No calf tenderness. LYMPHATICS: No significant lymphadenopathy is noted PSYCHIATRIC: Normal psychiatric evaluation. Limitations: no limitations Course Vital Signs 08/17/23 08/17/23 08/17/23 16:40 16:42 17:00 Temperature 97.7 F Pulse Rate 95 91 Respiratory 20 20 18 Rate Blood Pressure 147/87 147/87 O2 Sat by Pulse 98 95 Oximetry 08/17/23 08/17/23 08/17/23 17:08 17:18 17:30 Temperature Pulse Rate 96 100 94 Respiratory 20 Rate Blood Pressure 132/78 O2 Sat by Pulse 98 Oximetry 08/17/23 08/17/23 18:00 19:23 Temperature Pulse Rate 79 80 Respiratory 18 22 Rate Blood Pressure 142/67 125/80 O2 Sat by Pulse 96 97 Oximetry Medical Decision Making - Medical Decision Making EKG is interpreted by myself. EKG shows atrial fibrillation at 89 bpm QRS 100 QT interval 362 QTC of 49. Patient's EKG shows no ST segment elevation or depression. Was pt. sent in by a medical professional or institution (, PA, MANAGER FRAUD, urgent care, hospital, or detention...) When possible be specific @ -Patient was sent to us from [facility] Did you speak to anyone other than the patient for history (EMS, parent, family, police, friend...)? What history was obtained from this source @ -No Did you review nursing and triage notes (agree or disagree)? Why? @ -I reviewed and agree with nursing and triage notes Were old charts reviewed (outside hosp., previous admission, EMS record, old EKG, old radiological studies, urgent care reports/EKG's, detention records)? Report findings @ -I reviewed prior charts in the charts he came with the patient from this hospital. I also reviewed laboratory came from [facility] Differential Diagnosis (chest pain, altered mental status, abdominal pain women, abdominal pain men, vaginal bleeding, weakness, fever, dyspnea, syncope, headache, dizziness, GI bleed, back pain, seizure, CVA, palpatations, mental health, musculoskeletal)? @ -Differential Dyspnea: Coronary syndrome, arrhythmia, tamponade, asthma, COPD, pulmonary embolism, pneumonia, pneumothorax, pulmonary effusion, anaphylaxis, diabetic ketoacidosis, flailed chest, pulmonary contusion, diaphragmatic rupture, anemia, neuromuscular, this is not meant to be an all-inclusive list. EKG interpreted by me (3pts min.). @ -As above X-rays interpreted by me (1pt min.). @ -Chest x-ray shows no acute abnormality CT interpreted by me (1pt min.). @ -None done U/S interpreted by me (1pt. min.). @ -None done What testing was considered but not performed or refused? (CT, X-rays, U/S, labs)? Why? @ -None What meds were considered but not given or refused? Why? @ -None Did you discuss the management of the patient with other professionals (professionals i.e. , PA, MANAGER FRAUD, lab, RT, psych nurse, social worker aide, authorization nurse, teacher, stream control officer, oil field caser)? Give summary @ -I spoke with the [facility] agreed to admit the patient Was smoking cessation discussed for >3mins.? @ -No Was critical care preformed (if so, how long)? @ -No Were there social determinants of health that impacted care today? How? (Homelessness, low income, unemployed, alcoholism, drug addiction, transportation, low edu. Level, literacy, decrease access to med. care, snf, rehab)? @ -No Was there de-escalation of care discussed even if they declined (Discuss DNR or withdrawal of care, Hospice)? DNR status @ -No What co-morbidities impacted this encounter? (DM, HTN, Smoking, COPD, CAD, Cancer, CVA, ARF, Chemo, Hep., AIDS, mental health diagnosis, sleep apnea, morbid obesity)? @ -None Was patient admitted / discharged? Hospital course, mention meds given and route, prescriptions, significant lab abnormalities, going to OR and other pertinent info. @ -Patient was given breathing treatments emergency department. Patient oriented steroids at the other facility. Patient did get antibiotics here as well. I spoke with a [place] hospice agreed to admit the patient admitted the patient wrote admitting orders. Patient did also get a little bit of Lasix because patient had mild pulmonary edema on x-ray. Undiagnosed new problem with uncertain prognosis? @ -No Drug Therapy requiring intensive monitoring for toxicity (Heparin, Nitro, Insulin, Cardizem)? @ -No Were any procedures done? @ -No Diagnosis/symptom? @ -Mild pulmonary edema Acute, or Chronic, or Acute on Chronic? @ -Acute Uncomplicated (without systemic symptoms) or Complicated (systemic symptoms)? @ -Complicated Side effects of treatment? @ -No Exacerbation, Progression, or Severe Exacerbation? @ -No Poses a threat to life or bodily function? How? (Chest pain, [place], [place], pneumonia, PE, COPD, DKA, ARF, appy, cholecystitis, CVA, Diverticulitis, Homicidal, Suicidal, threat to staff... and all critical care pts) @ -Yes this could leave hypoxia and end organ dysfunction Diagnosis/symptom? @ -COPD exacerbation Acute, or Chronic, or Acute on Chronic? @ -, Acute Uncomplicated (without systemic symptoms) or Complicated (systemic symptoms)? @ -Complicated Side effects of treatment? @ -none Exacerbation, Progression, or Severe Exacerbation] @ -no Poses a threat to life or bodily function? @ -Yes this could lead hypoxia and end organ dysfunction Disposition Clinical Impression: Pulmonary edema, COPD exacerbation Disposition: ADMITTED IP TO THIS HOSP Referrals: Elver Jackson MD [Primary Care Provider] - 1-2 days Time of Disposition: 19:57
--- NOTE | 2023-08-17 18:25 | XR ---
EXAMINATION TYPE: XR chest 2V DATE OF EXAM: 08/17/2023 COMPARISON: 06/12/2023 INDICATION: Difficulty breathing, short of breath TECHNIQUE: Frontal and lateral views of the chest are obtained. FINDINGS: The heart size is normal. The pulmonary vasculature is upper limits of normal. There is a small pleural effusion.. IMPRESSION: 1. Correlate for mild volume overload
[2023-08-17] MEDS ORDERED: FUROSEMIDE 10 MG/ML 10 ML VIAL IV STA (19:58)
[2023-08-17] MEDS ORDERED: NALOXONE 0.4 MG/ML 1 ML VIAL IVP PRN (19:59)
[2023-08-17] MEDS: HYDROcodone/APAP 10-325MG 1 EACH TAB PO PRN (20:22)
[2023-08-17] MEDS: IPRATROPIUM-ALBUTEROL 3 ML NEB INHALATION SCH (20:39)
[2023-08-17] MEDS: methylPREDNISolone SOD SUCCI 125 MG/2 ML VIAL IV SCH (23:27)
[2023-08-18] MEDS: HYDROcodone/APAP 10-325MG 1 EACH TAB PO PRN ×4 (03:19→23:53)
[2023-08-18] MEDS: IPRATROPIUM-ALBUTEROL 3 ML NEB INHALATION PRN ×2 (03:53→08:44)
[2023-08-18] MEDS ORDERED: FUROSEMIDE 10 MG/ML 4 ML VIAL IV SCH (04:00)
[2023-08-18] MEDS ORDERED: DEXTROSE 50% SYRINGE 50 ML IVP PRN ×2 (04:44)
[2023-08-18] MEDS: methylPREDNISolone SOD SUCCI 125 MG/2 ML VIAL IV SCH ×4 (05:02→23:53)
[2023-08-18] MEDS: IPRATROPIUM-ALBUTEROL 3 ML NEB INHALATION SCH ×4 (06:34→19:59)
--- NOTE | 2023-08-18 07:41 | P.CNPUL ---
History of Present Illness Consult date: 08/18/23 Requesting physician: Victor Hugo Carreon Reason for consult: COPD Chief complaint: Shortness of breath History of present illness: I am seeing this patient in consultation today 08/18/2023 after he was transfered from [facility] for a combination of acute COPD and CHF exacerbation. Patient has a 72-year-old white male with past medical history significant for severe oxygen dependent COPD, normally maintained on 3 L/m nasal cannula, congestive heart failure, chronic atrial fibrillation, diabetes mellitus, hyperlipidemia, hypertension, obesity, GERD and is a ongoing chronic smoker. [facility], he left AGAINST MEDICAL ADVICE approximately 2 weeks ago. He was worried about his home. Apparently, he did not have heat, and he is worried about his pipes freezing. Since leaving [facility], he's been progressively more short of breath. He states that he started smoking again. Also endorses a cough with minimal sputum production. Denies any fevers, chills, chest pain, hemoptysis. He does admit some bilateral lower extremity swelling. He denies missing any doses of his medications including his diuretics. Chest x-ray on arrival to our facility was mild pulmonary vascular congestion and small to trace bilateral pleural effusions. Patient has been started on Lasix twice a day. Urinal at bedside is full. Patient is currently sitting in bed, on 4 L/m nasal cannula, in no acute distress. Heart rhythm appears atrial fibrillation with controlled ventricular rate on the bedside monitor. He has known history of A. fib. Is anticoagulated on Eliquis. He still wheezing on auscultation. He has been started on a combination of DuoNeb's, Symbicort inhaler, and IV Solu-Medrol. Labs are pending. Review of Systems REVIEW OF SYSTEMS: CONSTITUTIONAL: Denies any recent significant weight loss or weight gain. Denies fevers. EYES: Denies change in vision. EARS, NOSE, MOUTH, THROAT: Denies headaches, denies sore throat. CARDIOVASCULAR: Denies chest pain, palpitations or syncopal episodes. Admits increased lower extremity swelling RESPIRATORY: See HPI GASTROINTESTINAL: Denies change in appetite, abdominal pain, nausea and vomiting, or diarrhea GENITOURINARY: Denies hematuria, denies infections. MUSKULOSKELETAL: Denies pain, denies swelling. INTEGUMENTARY: Denies rash, denies eczema. NEUROLOGICAL: Denies recent memory loss, no recent seizure activity. PSYCHIATRIC: Denies anxiety, denies depression. HEMATOLOGIC/LYMPHATIC: Denies anemia, denies enlarged lymph node Past Medical History Past Medical History: Atrial Fibrillation, Asthma, COPD, Diabetes Mellitus, GERD/Reflux, Hyperlipidemia, Hypertension, Osteoarthritis (OA), Pneumonia Additional Past Medical History / Comment(s): Afib RVR, home oxygen prn, bronchitis, pt states he is on metformin to prevent becoming diabetic, neuropathy bilateral feet/L hand, chronic pain back,/bilateral hips/knees/elbows and shoulders, L heel pain, FALLS, cataracts. 11/23/22 ex-spouse phylicia Waterman reports history is accurate to her knowledge. current adominal hernia noted History of Any Multi-Drug Resistant Organisms: None Reported Past Surgical History: Appendectomy Additional Past Surgical History / Comment(s): Colonoscopy Past Anesthesia/Blood Transfusion Reactions: No Reported Reaction Past Psychological History: Unable to Obtain, Anxiety, Depression Smoking Status: Current every day smoker, Vaper Past Alcohol Use History: None Reported Past Drug Use History: None Reported - Past Family History Father Family Medical History: Congestive Heart Failure (CHF), COPD Additional Family Medical History / Comment(s): Father was an alcoholic but was able to quit drinking Mother Family Medical History: Congestive Heart Failure (CHF), COPD Additional Family Medical History / Comment(s): Mother was an alcoholic. Daughter(s) Additional Family Medical History / Comment(s): Liver cancer Medications and Allergies Home Medications Medication Instructions Recorded Confirmed Type Apixaban [Eliquis] 5 mg PO BID #60 tab 07/08/20 08/17/23 Rx Tamsulosin [Flomax] 0.4 mg PO DAILY 12/07/21 08/17/23 History Theophylline Anhydrous 400 mg PO DAILY 02/18/22 08/17/23 History [Theophylline ER] Escitalopram [Lexapro] 5 mg PO DAILY 08/29/22 08/17/23 History Metoprolol Tartrate [Lopressor] 50 mg PO BID tab 09/07/22 08/17/23 Rx metFORMIN HCL [Glucophage] 500 mg PO BID tab 09/07/22 08/17/23 Rx Spironolactone [Aldactone] 25 mg PO DAILY #30 tab 11/29/22 08/17/23 Rx Atorvastatin Calcium [Lipitor] 40 mg PO HS 12/31/22 08/17/23 History DULoxetine HCL [Cymbalta] 30 mg PO DAILY 12/31/22 08/17/23 History Dapagliflozin Propanediol [Farxiga] 10 mg PO DAILY #30 tablet 01/21/23 08/17/23 Rx Potassium Chloride ER [K-Dur 10] 20 meq PO DAILY 04/25/23 08/17/23 History hydrALAZINE HCL [Apresoline] 25 mg PO DAILY 04/25/23 08/17/23 History Furosemide [Lasix] 40 mg PO BID #60 tab 04/29/23 08/17/23 Rx HYDROcodone/APAP 10-325MG [[place] 1 tab PO Q4H PRN 06/09/23 08/17/23 History 10-325] Pantoprazole [Protonix] 40 mg PO DAILY 08/17/23 08/17/23 History Pregabalin [Lyrica] 75 mg PO DAILY 08/17/23 08/17/23 History diazePAM [Valium] 5 mg PO DAILY PRN 08/17/23 08/17/23 History metOLazone [Zaroxolyn] 2.5 mg PO DAILY 08/17/23 08/17/23 History Allergies Allergy/AdvReac Type Severity Reaction Status Date / Time ANJU Inhibitors Allergy Unknown - Verified 08/17/23 20:21 per [facility] doxycycline Allergy Anaphylaxis Verified 08/17/23 20:21 Penicillins Allergy Anaphylaxis, Verified 08/17/23 20:21 Seizure Physical Exam Vitals: Vital Signs Temp Pulse Resp BP Pulse Ox 08/18/23 06:42 92 08/18/23 06:34 99 08/18/23 05:00 90 14 143/87 96 08/18/23 04:06 90 08/18/23 03:55 82 08/18/23 03:00 78 16 151/72 92 L 08/17/23 22:00 79 22 135/73 96 08/17/23 20:49 73 08/17/23 20:40 82 08/17/23 19:23 80 22 125/80 97 08/17/23 19:00 79 15 114/101 96 08/17/23 18:00 79 18 142/67 96 08/17/23 17:30 94 20 132/78 98 08/17/23 17:18 100 08/17/23 17:08 96 08/17/23 17:00 91 18 147/87 95 08/17/23 16:42 20 08/17/23 16:40 97.7 F 95 20 147/87 98 Intake and Output 08/17/23 08/18/23 08/18/23 22:59 06:59 14:59 Other: Weight 112.491 kg GENERAL EXAM: Alert, obese 72-year-old white male, disheveled, comfortable in no apparent distress. HEAD: Normocephalic and atraumatic EYES: Normal reaction of pupils, equal size. NOSE: Clear with pink turbinates. THROAT: No erythema or exudates. NECK: No masses, no JVD. CHEST: No chest wall deformity. LUNGS: Equal air entry with wheezing and scattered rhonchi heard throughout. On 4 L/m nasal cannula. No conversational dyspnea or accessory muscle use.. CVS: S1 and S2 normal with no audible murmur, irregular rhythm. No extra heart sounds ABDOMEN: No hepatosplenomegaly, active bowel sounds, no guarding or rigidity. SPINE: No scoliosis or deformity SKIN: No rashes CENTRAL NERVOUS SYSTEM: No focal deficits, tone is normal in all 4 extremities. EXTREMITIES: There is 3+ bilateral pitting edema. No clubbing, or cyanosis. Peripheral pulses are intact. Results - Laboratory Findings CBC and BMP: 08/18/23 08:37 08/18/23 08:37 - Diagnostic Findings Chest x-ray: image reviewed Assessment and Plan Assessment: Acute on chronic hypoxemic respiratory failure, likely multifactorial, secondary to a combination of COPD and systolic CHF exacerbation. Chest x-ray on arrival to our facility shows cardiomegaly, mild pulmonary vascular congestion and small to trace bilateral pleural effusions. Acute exacerbation of severe oxygen dependent COPD CHF with ejection fraction of 40-45% moderate concentric LVH and moderate degree of pulmonary hypertension. Chronic atrial fibrillation, with controlled ventricular rate, normally anticoagulated on Eliquis, Essential hypertension Hyperlipidemia Diabetes mellitus type 2, complicated by diabetic neuropathy Morbid obesity with BMI of 31 kg/m Chronic pain Chronic ongoing tobacco dependence Umbilical Hernia Smoker Plan: Patient is currently on 4 L/m nasal cannula, in no acute distress. Continue sup plemental oxygen. Agree with diuresis in the form of Lasix 40 mg twice a day. Also receiving Zaroxolyn and Aldactone. Seems to be diuresing well. As far as the patient's COPD, he's been started on a combination of bronchodilators, Symbicort inhaler, and IV Solu-Medrol. Labs are pending. Empirically covered on Rocephin. Smoking cessation counseling performed. Nicotine replacement offered. Patient states that he really can't take care of himself at home, and is receptive to going back to [facility]. He just needs to secure his home first. We will continue to follow, and further recommendations are forthcoming. I have personally seen and examined the patient, performed the documentation and the assessment and plan as written. Number of minutes spent on the visit:20 This is a joint evaluation that was done along with the nurse practitioner. The patient was seen in more than 30 minutes. The patient is being seen for an acute COPD exacerbation. The patient also may have a component of CHF. The patient is a chronic smoker. The patient is oxygen dependent. The patient was given a chest x-ray in emergency that also showed a component of CHF with a small right-sided pleural effusion, fluid in the right fissure and increased 4 vessel markings. As such, the patient was restless for a component of CHF and COPD exacerbation. The patient also has an umbilical hernia. The patient is currently on bronchodilators, IV Solu-Medrol 60 mg every 6 hours, IV Rocephin is a broad-spectrum antibiotic coverage. The patient is also on a combination of Zaroxolyn 2.5 mg by mouth daily, Aldactone 25 mg by mouth daily, and Lasix 40 mg by mouth daily. Outpatient occasional resumed. He is also on into cognition without liquids on outpatient basis regarding chronic A. fib. His most recent echocardiogram showed a an ejection fraction of 40-45%. He'll be reasonable to repeat the echocardiogram to evaluate LV function and pulmonary hypertension. Time with Patient: Greater than 30
[2023-08-18 07:52] LABS: Glucose,Whole Blood 256 mg/dL (70-110)
[2023-08-18] MEDS: SYMBICORT 160-4.5 MCG INHALER INHALATION SCH ×2 (08:43→19:59)
[2023-08-18] MEDS: INSULIN ASPART (NovoLOG) 100 UNIT/ML VIAL SQ SCH ×4 (08:44→21:14)
[2023-08-18] MEDS: POTASSIUM CHLORIDE ER 20 MEQ TAB.ER PO SCH (08:45)
[2023-08-18] MEDS: PREGABALIN 75 MG CAP PO SCH (08:45)
[2023-08-18] MEDS: TAMSULOSIN 0.4 MG CAP.ER.24H PO SCH (08:45)
[2023-08-18] MEDS: hydrALAZINE HCL 25 MG TAB PO SCH (08:45)
[2023-08-18] MEDS: SPIRONOLACTONE 25 MG TAB PO SCH (08:45)
[2023-08-18] MEDS: METOPROLOL TARTRATE 50 MG TAB PO SCH ×2 (08:45→21:14)
[2023-08-18] MEDS: PANTOPRAZOLE 40 MG TABLET PO SCH (08:45)
[2023-08-18] MEDS: APIXABAN 5 MG TAB PO SCH ×2 (08:45→21:14)
[2023-08-18] MEDS: diazePAM 5 MG TAB PO PRN (08:46)
[2023-08-18] MEDS: ESCITALOPRAM 5 MG TAB PO SCH (08:46)
[2023-08-18] MEDS: FUROSEMIDE 40 MG TAB PO SCH ×2 (08:46→21:14)
[2023-08-18] MEDS: THEOPHYLLINE 24 HOUR 400 MG CAP.ER.24H PO SCH (08:46)
[2023-08-18] MEDS: DULoxetine HCL 30 MG CAPSULE.DR PO SCH (08:46)
[2023-08-18] MEDS: DAPAGLIFLOZIN PROPANEDIOL 10 MG TABLET PO SCH (08:46)
[2023-08-18] MEDS: metOLazone 2.5 MG TAB PO SCH (08:46)
[2023-08-18] MEDS: NICOTINE 21MG/24HR PATCH TRANSDERM SCH (08:46)
[2023-08-18 09:03] LABS: Anisocytosis Slight; Basophils % (A) 0 %; Eosinophils % (A) 0 %; HCT 36.6 % (39.0-53.0); HGB 11.7 gm/dL (13.0-17.5); Hypochromasia Moderate; Lymphocytes # (A) 0.4 k/uL (1.0-4.8); Lymphocytes % (A) 5 %; MCH 29.1 pg (25.0-35.0); MCHC 31.9 g/dL (31.0-37.0); MCV 91.1 fL (80.0-100.0); Mean Platelet Volume 7.5; Monocytes # (A) 0.4 k/uL (0-1.0); Monocytes % (A) 4 %; Neutrophils # (A) 7.6 k/uL (1.3-7.7); Neutrophils % (A) 90 %; Platelet Count 291 k/uL (150-450); Poikilocytosis Slight; RBC 4.02 m/uL (4.30-5.90); RDW 17.5 % (11.5-15.5); WBC 8.4 k/uL (3.8-10.6)
[2023-08-18 09:06] LABS: ALT 17 U/L (4-49); AST 18 U/L (17-59); African American GFR (CKD) >90 (>60 ml/min/1.73 sqM); Albumin 3.7 g/dL (3.5-5.0); Albumin/Globulin Ratio 1.5; Alkaline Phosphatase 66 U/L (38-126); Anion Gap 11 mmol/L; Blood Urea Nitrogen 18 mg/dL (9-20); Calcium 8.9 mg/dL (8.4-10.2); Carbon Dioxide 30 mmol/L (22-30); Chloride 94 mmol/L (98-107); Globulin 2.5 g/dL; Glucose 216 mg/dL (74-99); Non-African American GFR(CKD) >90 (>60 ml/min/1.73 sqM); Potassium 3.9 mmol/L (3.5-5.1); Sodium 135 mmol/L (137-145); Total Bilirubin 0.6 mg/dL (0.2-1.3); Total Protein 6.2 g/dL (6.3-8.2)
[2023-08-18 09:15] LABS: NT-Pro-B-Type Natriuretic Pept 1360 pg/mL
[2023-08-18] MEDS ORDERED: FLUTICASONE 50MCG/SPRAY NASAL 16GM EA NOSTRIL PRN (09:51)
[2023-08-18 11:44] LABS: Glucose,Whole Blood 169 mg/dL (70-110)
[2023-08-18] MEDS: guaiFENesin 600 MG TABLET.ER PO SCH (12:04)
[2023-08-18] MEDS ORDERED: LIDOCAINE 5% PATCH TOPICAL ONE (13:45)
[2023-08-18] MEDS ORDERED: LIDOCAINE 4% PATCH TOPICAL SCH (13:45)
[2023-08-18 16:31] LABS: Glucose,Whole Blood 187 mg/dL (70-110)
[2023-08-18 21:02] LABS: Glucose,Whole Blood 252 mg/dL (70-110)
[2023-08-18] MEDS: ATORVASTATIN 40 MG TAB PO SCH (21:14)
--- NOTE | 2023-08-18 23:39 | P.HPIM ---
History of Present Illness H&P Date: 08/18/23 Chief Complaint: Difficulty in breathing patient is a 72-year-old male with a known history of COPD on home oxygen, chronic hypoxemic respiratory failure, chronic atrial fibrillation on anticoagulation with Eliquis, hypertension, hyperlipidemia, osteoarthritis, anxiety/depression currently everyday smoker/vapor was initially presented to ER at [facility] with complaints of worsening shortness of breath. Patient was transferred to [facility] due to acute exacerbation of COPD. Otherwise patient denies any complaints of chest pain. Patient was h aving cough but unable to bring up any sputum. Denies any worsening leg swelling. Denies any fever or chills. No headache or dizziness or lightheadedness. Patient was previously admitted to hospital with similar complaints. Chest x-ray showed correlate for mild volume overload. EKG showed atrial fibrillation with heart rate 89. Laboratory showed WBC 8.4 hemoglobin 11.7 and platelets 291 and RDW 17.5, sodium 135 potassium 3.9 chloride 94 bicarb is 30 BUN 18 and creatinine 0.61 blood sugar is 216, proBNP 1360 and total protein 6.2 and albumin 3.7. COVID-19, influenza A, B, RSV not detected. Patient is currently requiring oxygen at 3 L via nasal cannula. Review of Systems Constitutional: Patient denies any fever or chills . no Generalized weakness. Abdomen: Patient denied any nausea or vomiting or abd. pain Cardiovascular: Patient denies any chest pain .+short of breath no palpitations. Respiratory: Patient complains of cough without sputum production. Complains of shortness of breath. Neurologic: Patient denied any numbness or tingling or headache. Musculoskeletal: Patient denies any complaints of joint swelling or deformity. Skin: Negative Psychiatric: Negative Endocrine: No heat or cold intolerance. No recent weight gain. Genitourinary: No dysuria or hematuria. All other 14 point ROS negative except the above. Past Medical History Past Medical History: Atrial Fibrillation, Asthma, COPD, Diabetes Mellitus, GERD/Reflux, Hyperlipidemia, Hypertension, Osteoarthritis (OA), Pneumonia Additional Past Medical History / Comment(s): Afib RVR, home oxygen prn, bronchitis, pt states he is on metformin to prevent becoming diabetic, neuropathy bilateral feet/L hand, chronic pain back,/bilateral hips/knees/elbows and shoulders, L heel pain, FALLS, cataracts. 11/23/22 ex-spouse phylicia Waterman reports history is accurate to her knowledge. current adominal hernia noted History of Any Multi-Drug Resistant Organisms: None Reported Past Surgical History: Appendectomy Additional Past Surgical History / Comment(s): Colonoscopy Past Anesthesia/Blood Transfusion Reactions: No Reported Reaction Past Psychological History: Unable to Obtain, Anxiety, Depression Smoking Status: Current every day smoker, Vaper Past Alcohol Use History: None Reported Past Drug Use History: None Reported - Past Family History Father Family Medical History: Congestive Heart Failure (CHF), COPD Additional Family Medical History / Comment(s): Father was an alcoholic but was able to quit drinking Mother Family Medical History: Congestive Heart Failure (CHF), COPD Additional Family Medical History / Comment(s): Mother was an alcoholic. Daughter(s) Additional Family Medical History / Comment(s): Liver cancer Medications and Allergies Home Medications Medication Instructions Recorded Confirmed Type Apixaban [Eliquis] 5 mg PO BID #60 tab 07/08/20 08/17/23 Rx Tamsulosin [Flomax] 0.4 mg PO DAILY 12/07/21 08/17/23 History Theophylline Anhydrous 400 mg PO DAILY 02/18/22 08/17/23 History [Theophylline ER] Escitalopram [Lexapro] 5 mg PO DAILY 08/29/22 08/17/23 History Metoprolol Tartrate [Lopressor] 50 mg PO BID tab 09/07/22 08/17/23 Rx metFORMIN HCL [Glucophage] 500 mg PO BID tab 09/07/22 08/17/23 Rx Spironolactone [Aldactone] 25 mg PO DAILY #30 tab 11/29/22 08/17/23 Rx Atorvastatin Calcium [Lipitor] 40 mg PO HS 12/31/22 08/17/23 History DULoxetine HCL [Cymbalta] 30 mg PO DAILY 12/31/22 08/17/23 History Dapagliflozin Propanediol [Farxiga] 10 mg PO DAILY #30 tablet 01/21/23 08/17/23 Rx Potassium Chloride ER [K-Dur 10] 20 meq PO DAILY 04/25/23 08/17/23 History hydrALAZINE HCL [Apresoline] 25 mg PO DAILY 04/25/23 08/17/23 History Furosemide [Lasix] 40 mg PO BID #60 tab 04/29/23 08/17/23 Rx HYDROcodone/APAP 10-325MG [[place] 1 tab PO Q4H PRN 06/09/23 08/17/23 History 10-325] Pantoprazole [Protonix] 40 mg PO DAILY 08/17/23 08/17/23 History Pregabalin [Lyrica] 75 mg PO DAILY 08/17/23 08/17/23 History diazePAM [Valium] 5 mg PO DAILY PRN 08/17/23 08/17/23 History metOLazone [Zaroxolyn] 2.5 mg PO DAILY 08/17/23 08/17/23 History Allergies Allergy/AdvReac Type Severity Reaction Status Date / Time ANJU Inhibitors Allergy Unknown - Verified 08/17/23 20:21 per [facility] doxycycline Allergy Anaphylaxis Verified 08/17/23 20:21 Penicillins Allergy Anaphylaxis, Verified 08/17/23 20:21 Seizure Physical Exam Vitals: Vital Signs Temp Pulse Pulse Resp BP BP Pulse Ox 08/18/23 12:01 85 08/18/23 11:49 82 08/18/23 08:54 85 08/18/23 08:44 80 96 08/18/23 08:40 96 20 159/83 96 08/18/23 06:42 92 08/18/23 06:34 99 08/18/23 05:00 90 14 143/87 96 08/18/23 04:06 90 08/18/23 03:55 82 08/18/23 03:00 78 16 151/72 92 L 08/17/23 22:00 79 22 135/73 96 08/17/23 20:49 73 08/17/23 20:40 82 08/17/23 19:23 80 22 125/80 97 08/17/23 19:00 79 15 114/101 96 08/17/23 18:00 79 18 142/67 96 08/17/23 17:30 94 20 132/78 98 08/17/23 17:18 100 08/17/23 17:08 96 08/17/23 17:00 91 18 147/87 95 08/17/23 16:42 20 08/17/23 16:40 97.7 F 95 20 147/87 98 Intake and Output 08/17/23 08/18/23 08/18/23 22:59 06:59 14:59 Other: Weight 112.491 kg PHYSICAL EXAMINATION: Patient is lying in the bed comfortably, no acute distress, awake alert and oriented.. HEENT: Normocephalic. Neck is supple. Pupils reactive. Nostrils clear. Oral cavity is moist. Neck reveals no JVD, carotid bruits, or thyromegaly. CHEST EXAMINATION: Trachea is central. Symmetrical expansion. Bibasilar diminished sounds and diffuse wheezing and scattered rhonchi.. CARDIAC: Normal S1, S2 with no gallops. Irregularly irregular rhythm. ABDOMEN: Soft. Bowel sounds present. Nontender. No organomegaly. No abdominal bruits. Extremities: Bilateral lower extremity trace edema. No clubbing or cyanosis Neurologically awake, alert, oriented x3 with well-coordinated movements. No focal deficits noted. Mild cognitive impairment. Skin: No rash or skin lesions. Psychiatric: Coperative. Nonsuicidal, Musculoskeletal: No joint swelling or deformity. Normal range of motion. Results CBC & Chem 7: 08/18/23 08:37 08/18/23 08:37 Labs: Abnormal Lab Results - Last 24 Hours (Table) 08/18/23 08/18/23 08/18/23 Range/Units 07:51 08:37 08:37 RBC 4.02 L (4.30-5.90) m/uL Hgb 11.7 L (13.0-17.5) gm/dL Hct 36.6 L (39.0-53.0) % RDW 17.5 H (11.5-15.5) % Lymphocytes # 0.4 L (1.0-4.8) k/uL Sodium 135 L (137-145) mmol/L Chloride 94 L (98-107) mmol/L Creatinine 0.62 L (0.66-1.25) mg/dL Glucose 216 H (74-99) mg/dL POC Glucose (mg/dL) 256 H (70-110) mg/dL Total Protein 6.2 L (6.3-8.2) g/dL 08/18/23 Range/Units 11:42 RBC (4.30-5.90) m/uL Hgb (13.0-17.5) gm/dL Hct (39.0-53.0) % RDW (11.5-15.5) % Lymphocytes # (1.0-4.8) k/uL Sodium (137-145) mmol/L Chloride (98-107) mmol/L Creatinine (0.66-1.25) mg/dL Glucose (74-99) mg/dL POC Glucose (mg/dL) 169 H (70-110) mg/dL Total Protein (6.3-8.2) g/dL Thrombosis Risk Factor Assmnt - DVT/VTE Prophylaxis DVT/VTE Prophylaxis: Pharmacologic Prophylaxis ordered Assessment and Plan Assessment: Acute on chronic hypoxemic respiratory failure secondary to COPD exacerbation and mild CHF exacerbation Acute exacerbation COPD Acute on chronic CHF with reduced ejection fraction 40 to 45% and moderate pulmonary hypertension Chronic atrial fibrillation on anticoagulation with Eliquis Hypertension Hyperlipidemia Diabetes type 2 [id number] Diabetic peripheral neuropathy Chronic ongoing active addiction Osteoarthritis GERD Anxiety/depression DVT prophylaxis patient is already on Eliquis GI prophylaxis with Protonix Plan: Patient will be continued on IV Solu-Medrol 60 mg every 6 hourly and DuoNebs. Continue with home dose of Lasix 40 mg p.o. twice daily. Received a dose of IV Lasix 80 mg x 1 in the ER. Continue with Aldactone. Patient will be continued on metoprolol and Eliquis and other blood pressure medications. Currently on ceftriaxone 1 g daily. Pulmonary is on board. Follow up closely. Time with Patient: Greater than 30
[2023-08-19] MEDS: diazePAM 5 MG TAB PO PRN ×2 (00:40→15:02)
[2023-08-19] MEDS: IPRATROPIUM-ALBUTEROL 3 ML NEB INHALATION PRN ×3 (00:59→23:57)
[2023-08-19 05:38] LABS: Glucose,Whole Blood 181 mg/dL (70-110)
[2023-08-19] MEDS: methylPREDNISolone SOD SUCCI 125 MG/2 ML VIAL IV SCH ×4 (05:45→23:02)
[2023-08-19] MEDS: HYDROcodone/APAP 10-325MG 1 EACH TAB PO PRN ×5 (05:50→23:05)
[2023-08-19] MEDS: hydrALAZINE HCL 25 MG TAB PO SCH (08:42)
[2023-08-19] MEDS: ESCITALOPRAM 5 MG TAB PO SCH (08:42)
[2023-08-19] MEDS: NICOTINE 21MG/24HR PATCH TRANSDERM SCH (08:42)
[2023-08-19] MEDS: PANTOPRAZOLE 40 MG TABLET PO SCH (08:43)
[2023-08-19] MEDS: POTASSIUM CHLORIDE ER 20 MEQ TAB.ER PO SCH (08:43)
[2023-08-19] MEDS: DAPAGLIFLOZIN PROPANEDIOL 10 MG TABLET PO SCH (08:43)
[2023-08-19] MEDS: THEOPHYLLINE 24 HOUR 400 MG CAP.ER.24H PO SCH (08:43)
[2023-08-19] MEDS: TAMSULOSIN 0.4 MG CAP.ER.24H PO SCH (08:43)
[2023-08-19] MEDS: METOPROLOL TARTRATE 50 MG TAB PO SCH ×2 (08:43→20:47)
[2023-08-19] MEDS: FUROSEMIDE 40 MG TAB PO SCH ×2 (08:43→20:48)
[2023-08-19] MEDS: SPIRONOLACTONE 25 MG TAB PO SCH (08:43)
[2023-08-19] MEDS: PREGABALIN 75 MG CAP PO SCH (08:43)
[2023-08-19] MEDS: guaiFENesin 600 MG TABLET.ER PO SCH (08:43)
[2023-08-19] MEDS: APIXABAN 5 MG TAB PO SCH ×2 (08:43→20:48)
[2023-08-19] MEDS: metOLazone 2.5 MG TAB PO SCH (08:43)
[2023-08-19 08:45] LABS: Glucose,Whole Blood 295 mg/dL (70-110)
[2023-08-19] MEDS: INSULIN ASPART (NovoLOG) 100 UNIT/ML VIAL SQ SCH ×4 (08:48→20:48)
[2023-08-19] MEDS: DULoxetine HCL 30 MG CAPSULE.DR PO SCH (08:48)
[2023-08-19] MEDS: LIDOCAINE 4% PATCH TOPICAL SCH (08:49)
[2023-08-19] MEDS: SYMBICORT 160-4.5 MCG INHALER INHALATION SCH ×2 (08:55→21:27)
[2023-08-19] MEDS: IPRATROPIUM-ALBUTEROL 3 ML NEB INHALATION SCH ×4 (08:55→21:27)
--- NOTE | 2023-08-19 09:20 | CA ---
Transthoracic Echo Report Name: Olegario Villela Age: 72 Gender: M : 1950 Exam Date: 08/18/2023 16:42 Exam Location: [facility] Ht (in): 72 Wt (lb): 248 Ordering Physician: Tang Jones MD Attending/Referring Phys: Teller Supervisor Janet Tijerina RDCS Procedure CPT: Indications: CHF follow-up Cardiac Hx: Technical Quality: Technically difficult study Contrast 1: Definity Total Dose (mL): 2 Contrast 2: Total Dose (mL): MEASUREMENTS (Male / Female) Normal Values 2D ECHO LV Diastolic Diameter PLAX 5.3 cm 4.2 - 5.9 / 3.9 - 5.3 cm LV Systolic Diameter PLAX 3.7 cm IVS Diastolic Thickness 1.4 cm 0.6 - 1.0 / 0.6 - 0.9 cm LVPW Diastolic Thickness 1.5 cm 0.6 - 1.0 / 0.6 - 0.9 cm LV Relative Wall Thickness 0.5 RV Internal Dim ED PLAX 4.5 cm LV Diastolic Volume MOD BP 78.3 cm??? 67 - 155 / 56 - 104 cm??? LV Systolic Volume MOD BP 30.8 cm??? 22 - 58 / 19 - 49 cm??? LV Ejection Fraction MOD BP 60.7 % >= 55 % LV Cardiac Index MOD BP 1862.5 cm???/min???m??? LV Diastolic Volume MOD 4C 78.7 cm??? LV Systolic Volume MOD 4C 34.7 cm??? LV Ejection Fraction MOD 4C 55.9 % LV Cardiac Index MOD 4C 1720.6 cm???/min???m??? LV Diastolic Length 4C 9.2 cm LV Systolic Length 4C 7.7 cm LV Diastolic Volume MOD 2C 93.5 cm??? LV Systolic Volume MOD 2C 47.4 cm??? LV Ejection Fraction MOD 2C 49.3 % LV Cardiac Index MOD 2C 1804.8 cm???/min???m??? LV Diastolic Length 2C 8.7 cm LV Systolic Length 2C 7.9 cm LA Volume 94.3 cm??? 18 - 58 / 22 - 52 cm??? LA Volume Index 38.9 cm???/m??? 16 - 28 cm???/m??? M-MODE Aortic Root Diameter MM 3.3 cm AV Cusp Separation MM 1.6 cm DOPPLER AV Peak Velocity 177.4 cm/s AV Peak Gradient 12.6 mmHg AV Mean Velocity 116.8 cm/s AV Mean Gradient 6.5 mmHg AV Velocity Time Integral 31.8 cm LVOT Peak Velocity 130.6 cm/s LVOT Peak Gradient 6.8 mmHg MV Area PHT 4.9 cm??? MV Deceleration Time 138.9 ms TR Peak Velocity 333.5 cm/s TR Peak Gradient 44.5 mmHg Right Ventricular Systolic Press 48.7 mmHg FINDINGS Left Ventricle Left ventricular ejection fraction is estimated at 50-55 %. Left ventricular cavity size normal. Moderate concentric left ventricular hypertrophy. Right Ventricle Severe right ventricular dilatation. Moderate pulmonary hypertension. Right ventricular systolic pressure estimated at 49 mm hg. Right Atrium Right atrium not well visualized. Left Atrium Moderately increased left atrial volume. Mildly increased left atrial area. Mitral Valve Structurally normal mitral valve. No mitral stenosis, regurgitation or prolapse. Aortic Valve Trileaflet aortic valve. Mild aortic stenosis with a peak gradient of 13 mmHg and a mean gradient of 7 mmHg. Tricuspid Valve Structurally normal tricuspid valve. Mild tricuspid regurgitation. Pulmonic Valve Pulmonic valve not well visualized. Pericardium No pericardial effusion. Aorta Normal size aortic root and proximal ascending aorta. CONCLUSIONS Normal LV systolic function Aortic sclerosis with mild aortic stenosis Previewed by: Dr. Talha Infante MD (Electronically Signed) Final Date: 19 August 2023 09:19
[2023-08-19 11:30] LABS: Glucose,Whole Blood 223 mg/dL (70-110)
[2023-08-19 11:41] LABS: % Iron Saturation 7.82 (15.00-50.00)
[2023-08-19 16:35] LABS: Glucose,Whole Blood 319 mg/dL (70-110)
--- NOTE | 2023-08-19 17:57 | P.PN ---
Subjective Progress Note Date: 08/19/23 I am seeing this patient in consultation today 08/18/2023 after he was transfered from [facility] for a combination of acute COPD and CHF exacerbation. Patient has a 72-year-old white male with past medical history significant for severe oxygen dependent COPD, normally maintained on 3 L/m nasal cannula, congestive heart failure, chronic atrial fibrillation, diabetes mellitus, hyperlipidemia, hypertension, obesity, GERD and is a ongoing chronic smoker. Patient was staying at [facility] rehab facility, he left AGAINST MEDICAL ADVICE approximately 2 weeks ago. He was worried about his home. Apparently, he did not have heat, and he is worried about his pipes freezing. Since leaving [facility], he's been progressively more short of breath. He states that he started smoking again. Also endorses a cough with minimal sputum production. Denies any fevers, chills, chest pain, hemoptysis. He does admit some bilateral lower extremity swelling. He denies missing any doses of his medications including his diuretics. Chest x-ray on arrival to our facility was mild pulmonary vascular congestion and small to trace bilateral pleural effusions. Patient has been started on Lasix twice a day. Urinal at bedside is full. Patient is currently sitting in bed, on 4 L/m nasal cannula, in no acute distress. Heart rhythm appears atrial fibrillation with controlled ventricular rate on the bedside monitor. He has known history of A. fib. Is anticoagulated on Eliquis. He still wheezing on auscultation. He has been started on a combination of DuoNeb's, Symbicort inhaler, and IV Solu-Medrol. Labs are pending. On today's evaluation, the patient continues to have increased dyspnea, chest c ongestion chest tightness and wheezing consistent with COPD exacerbation. Prominent since yesterday. The patient remains on bronchodilators and steroids. The patient is also covered with IV antibiotics. The patient is currently on Rocephin. Patient is also on Lasix 40 mg by mouth twice a day. Remains on bronchodilators. Remains on IV Solu-Medrol 60 mg every 6 hours. No new labs are available from today. Blood sugars are slightly elevated and the patient is receiving/skeletal insulin coverage. The patient is on 7 iron deficiency and hemoglobin is currently at 11.7. Serum iron is at 28. HbA1c is at 6.1. Patient is also on long-term and cognition without liquids 5 mg by mouth twice a day.he is currently on 3 L of oxygen by nasal cannula.Repeat echo cardiac exam shows a normal ejection fraction of 50-55%. The patient severe RV dilatation and mother did reveal pulmonary hypertension with a PA pressure 49. There is also mild aortic stenosis. Objective - Vital Signs Vital signs: Vital Signs Temp 97.8 F 08/19/23 08:00 Pulse 96 08/19/23 09:09 Resp 17 08/19/23 08:00 BP 144/84 08/19/23 08:00 Pulse Ox 92 L 08/19/23 08:55 FiO2 Intake & Output 08/18/23 08/19/23 08/19/23 18:59 06:59 18:59 Intake Total 800 Output Total 2300 1000 Balance -2300 -200 Intake: Oral 800 Output: Urine 2300 1000 Other: Voiding Method Urinal - Exam GENERAL EXAM: Alert, obese 72-year-old white male, disheveled, comfortable in no apparent distress. HEAD: Normocephalic and atraumatic EYES: Normal reaction of pupils, equal size. NOSE: Clear with pink turbinates. THROAT: No erythema or exudates. NECK: No masses, no JVD. CHEST: No chest wall deformity. LUNGS: Equal air entry with wheezing and scattered rhonchi heard throughout. On 4 L/m nasal cannula. No conversational dyspnea or accessory muscle use.. CVS: S1 and S2 normal with no audible murmur, irregular rhythm. No extra heart sounds ABDOMEN: No hepatosplenomegaly, active bowel sounds, no guarding or rigidity. SPINE: No scoliosis or deformity SKIN: No rashes CENTRAL NERVOUS SYSTEM: No focal deficits, tone is normal in all 4 extremities. EXTREMITIES: There is 3+ bilateral pitting edema. No clubbing, or cyanosis. Peripheral pulses are intact. - Labs CBC & Chem 7: 08/18/23 08:37 08/18/23 08:37 Labs: Abnormal Lab Results - Last 24 Hours (Table) 08/18/23 08/18/23 08/19/23 Range/Units 16:29 20:59 05:36 POC Glucose (mg/dL) 187 H 252 H 181 H (70-110) mg/dL Hemoglobin A1c (<=6.0) % Iron (65-175) UG/DL % Saturation (15.00-50.00) 08/19/23 08/19/23 08/19/23 Range/Units 05:37 05:37 08:43 POC Glucose (mg/dL) 295 H (70-110) mg/dL Hemoglobin A1c 6.1 H (<=6.0) % Iron 28 L (65-175) UG/DL % Saturation 7.82 L (15.00-50.00) 08/19/23 Range/Units 11:29 POC Glucose (mg/dL) 223 H (70-110) mg/dL Hemoglobin A1c (<=6.0) % Iron (65-175) UG/DL % Saturation (15.00-50.00) Microbiology - Last 24 Hours (Table) 08/17/23 17:40 Blood Culture - Preliminary Blood 08/17/23 17:27 Blood Culture - Preliminary Blood Assessment and Plan Assessment: Acute on chronic hypoxemic respiratory failure, likely multifactorial, secondary to a combination of COPD and systolic CHF exacerbation. Chest x-ray on arrival to our facility shows cardiomegaly, mild pulmonary vascular congestion and small to trace bilateral pleural effusions.with clinical improvement since yesterday. We'll continue same treatment for now. Acute exacerbation of severe oxygen dependent COPD CHF with ejection fraction of 40-45% moderate concentric LVH and moderate degree of pulmonary hypertension.repeat echo cardiac exam continues to show RV dilatation and moderate degree of pulmonary hypertension. Ejection fraction is improved and is currently up to 50-55%. Chronic atrial fibrillation, with controlled ventricular rate, normally anti coagulated on Eliquis, Essential hypertension Hyperlipidemia Diabetes mellitus type 2, complicated by diabetic neuropathy Morbid obesity with BMI of 31 kg/m Chronic pain Chronic ongoing tobacco dependence Umbilical Hernia Smoker Plan: patient is currently on 3 L of oxygen nasal cannula Continue bronchodilators Continue IV Solu-Medrol Continue IV Rocephin Continue diuretics and the patient is on a combination of Lasix and Zaroxolyn Continue anticoagulation with Eliquis Repeat blood work Insulin sinus tachycardia coverage for hyperglycemia We'll continue to follow. Repeat labs in the morning. repeat echocardiogram was noted
[2023-08-19 20:06] LABS: Glucose,Whole Blood 298 mg/dL (70-110)
[2023-08-19] MEDS: ATORVASTATIN 40 MG TAB PO SCH (20:48)
[2023-08-19] MEDS: MELATONIN 3 MG TABLET PO SCH (22:24)
[2023-08-19] MEDS: INSULIN DETEMIR (LEVEMIR) 100 UNIT/ML SYR SQ SCH (22:25)
[2023-08-20] MEDS: HYDROcodone/APAP 10-325MG 1 EACH TAB PO PRN ×5 (03:30→21:17)
[2023-08-20 05:33] LABS: Glucose,Whole Blood 204 mg/dL (70-110)
[2023-08-20] MEDS: INSULIN ASPART (NovoLOG) 100 UNIT/ML VIAL SQ SCH ×4 (06:59→21:23)
[2023-08-20] MEDS: methylPREDNISolone SOD SUCCI 125 MG/2 ML VIAL IV SCH ×4 (07:03→23:54)
[2023-08-20 07:54] LABS: Anisocytosis Slight; Basophils % (A) 0 %; Eosinophils % (A) 0 %; HCT 38.9 % (39.0-53.0); HGB 12.5 gm/dL (13.0-17.5); Hypochromasia Slight; Lymphocytes # (A) 0.4 k/uL (1.0-4.8); Lymphocytes % (A) 4 %; MCHC 32.2 g/dL (31.0-37.0); MCV 90.2 fL (80.0-100.0); Mean Platelet Volume 7.6; Monocytes # (A) 0.6 k/uL (0-1.0); Monocytes % (A) 5 %; Neutrophils # (A) 10.3 k/uL (1.3-7.7); Neutrophils % (A) 90 %; Platelet Count 335 k/uL (150-450); Poikilocytosis Slight; RBC 4.31 m/uL (4.30-5.90); RDW 17.1 % (11.5-15.5); WBC 11.5 k/uL (3.8-10.6)
[2023-08-20] MEDS: IPRATROPIUM-ALBUTEROL 3 ML NEB INHALATION SCH ×4 (08:07→20:41)
[2023-08-20] MEDS: SYMBICORT 160-4.5 MCG INHALER INHALATION SCH ×2 (08:07→20:41)
[2023-08-20 08:13] LABS: African American GFR (CKD) >90 (>60 ml/min/1.73 sqM); Anion Gap 15 mmol/L; Blood Urea Nitrogen 36 mg/dL (9-20); Calcium 9.4 mg/dL (8.4-10.2); Carbon Dioxide 33 mmol/L (22-30); Chloride 86 mmol/L (98-107); Glucose 288 mg/dL (74-99); Non-African American GFR(CKD) 84 (>60 ml/min/1.73 sqM); Potassium 3.5 mmol/L (3.5-5.1); Sodium 134 mmol/L (137-145)
[2023-08-20] MEDS: hydrALAZINE HCL 25 MG TAB PO SCH (09:57)
[2023-08-20] MEDS: APIXABAN 5 MG TAB PO SCH ×2 (09:57→21:17)
[2023-08-20] MEDS: FUROSEMIDE 40 MG TAB PO SCH ×2 (09:57→21:17)
[2023-08-20] MEDS: LIDOCAINE 4% PATCH TOPICAL SCH (09:57)
[2023-08-20] MEDS: POTASSIUM CHLORIDE ER 20 MEQ TAB.ER PO SCH (09:57)
[2023-08-20] MEDS: SPIRONOLACTONE 25 MG TAB PO SCH (09:57)
[2023-08-20] MEDS: PANTOPRAZOLE 40 MG TABLET PO SCH (09:57)
[2023-08-20] MEDS: NICOTINE 21MG/24HR PATCH TRANSDERM SCH (09:57)
[2023-08-20] MEDS: guaiFENesin 600 MG TABLET.ER PO SCH (09:57)
[2023-08-20] MEDS: PREGABALIN 75 MG CAP PO SCH (09:57)
[2023-08-20] MEDS: TAMSULOSIN 0.4 MG CAP.ER.24H PO SCH (09:57)
[2023-08-20] MEDS: DAPAGLIFLOZIN PROPANEDIOL 10 MG TABLET PO SCH (09:58)
[2023-08-20] MEDS: DULoxetine HCL 30 MG CAPSULE.DR PO SCH (09:58)
[2023-08-20] MEDS: ESCITALOPRAM 5 MG TAB PO SCH (09:59)
[2023-08-20] MEDS: metOLazone 2.5 MG TAB PO SCH (10:04)
[2023-08-20] MEDS: THEOPHYLLINE 24 HOUR 400 MG CAP.ER.24H PO SCH (10:04)
[2023-08-20] MEDS: METOPROLOL TARTRATE 50 MG TAB PO SCH ×2 (10:11→21:17)
[2023-08-20 10:55] LABS: Glucose,Whole Blood 272 mg/dL (70-110)
--- NOTE | 2023-08-20 15:28 | P.PN ---
Subjective Progress Note Date: 08/20/23 I am seeing this patient in consultation today 08/18/2023 after he was transfered from [facility] for a combination of acute COPD and CHF exacerbation. Patient has a 72-year-old white male with past medical history significant for severe oxygen dependent COPD, normally maintained on 3 L/m nasal cannula, congestive heart failure, chronic atrial fibrillation, diabetes mellitus, hyperlipidemia, hypertension, obesity, GERD and is a ongoing chronic smoker. Patient was staying at [facility] rehab facility, he left AGAINST MEDICAL ADVICE approximately 2 weeks ago. He was worried about his home. Apparently, he did not have heat, and he is worried about his pipes freezing. Since leaving [facility], he's been progressively more short of breath. He states that he started smoking again. Also endorses a cough with minimal sputum production. Denies any fevers, chills, chest pain, hemoptysis. He does admit some bilateral lower extremity swelling. He denies missing any doses of his medications including his diuretics. Chest x-ray on arrival to our facility was mild pulmonary vascular congestion and small to trace bilateral pleural effusions. Patient has been started on Lasix twice a day. Urinal at bedside is full. Patient is currently sitting in bed, on 4 L/m nasal cannula, in no acute distress. Heart rhythm appears atrial fibrillation with controlled ventricular rate on the bedside monitor. He has known history of A. fib. Is anticoagulated on Eliquis. He still wheezing on auscultation. He has been started on a combination of DuoNeb's, Symbicort inhaler, and IV Solu-Medrol. Labs are pending. On today's evaluation, the patient continues to have increased dyspnea, chest c ongestion chest tightness and wheezing consistent with COPD exacerbation. Prominent since yesterday. The patient remains on bronchodilators and steroids. The patient is also covered with IV antibiotics. The patient is currently on Rocephin. Patient is also on Lasix 40 mg by mouth twice a day. Remains on bronchodilators. Remains on IV Solu-Medrol 60 mg every 6 hours. No new labs are available from today. Blood sugars are slightly elevated and the patient is receiving/skeletal insulin coverage. The patient is on 7 iron deficiency and hemoglobin is currently at 11.7. Serum iron is at 28. HbA1c is at 6.1. Patient is also on long-term and cognition without liquids 5 mg by mouth twice a day.he is currently on 3 L of oxygen by nasal cannula.Repeat echo cardiac exam shows a normal ejection fraction of 50-55%. The patient severe RV dilatation and mother did reveal pulmonary hypertension with a PA pressure 49. There is also mild aortic stenosis. On today's evaluation of 08/20/2023, the patient is doing well. No new complaints on today's evaluation. Remains on the same treatment of bronchodilators and steroids and the patient is also on IV Solu-Medrol. The shortness of breath compared to yesterday. Labs are unchanged. He has a 36 with a creatinine of 0.9 and sodium levels of 134. The white cell count 11.5 with a hemoglobin of 12.5. Patient is currently on 47 with a nasal cannula with a pulse ox of 98%. Objective - Vital Signs Vital signs: Vital Signs Temp 97.9 F 08/20/23 08:00 Pulse 85 08/20/23 12:02 Resp 18 08/20/23 08:00 BP 127/73 08/20/23 08:00 Pulse Ox 96 08/20/23 08:00 FiO2 Intake & Output 08/19/23 08/20/23 08/20/23 18:59 06:59 18:59 Intake Total 1760 480 Output Total 2850 2300 1400 Balance -1090 -2300 -920 Weight 112.8 kg Intake: Oral 1760 480 Output: Urine 2850 2300 1400 Other: Voiding Method Urinal Urinal # Voids 2 - Exam GENERAL EXAM: Alert, obese 72-year-old white male, disheveled, comfortable in no apparent distress. HEAD: Normocephalic and atraumatic EYES: Normal reaction of pupils, equal size. NOSE: Clear with pink turbinates. THROAT: No erythema or exudates. NECK: No masses, no JVD. CHEST: No chest wall deformity. LUNGS: Equal air entry with wheezing and scattered rhonchi heard throughout. On 4 L/m nasal cannula. No conversational dyspnea or accessory muscle use.. CVS: S1 and S2 normal with no audible murmur, irregular rhythm. No extra heart sounds ABDOMEN: No hepatosplenomegaly, active bowel sounds, no guarding or rigidity. SPINE: No scoliosis or deformity SKIN: No rashes CENTRAL NERVOUS SYSTEM: No focal deficits, tone is normal in all 4 extremities. EXTREMITIES: There is 3+ bilateral pitting edema. No clubbing, or cyanosis. Peripheral pulses are intact. - Labs CBC & Chem 7: 08/20/23 07:36 08/20/23 07:36 Labs: Abnormal Lab Results - Last 24 Hours (Table) 08/19/23 08/19/23 08/20/23 Range/Units 16:34 20:04 05:30 WBC (3.8-10.6) k/uL Hgb (13.0-17.5) gm/dL Hct (39.0-53.0) % RDW (11.5-15.5) % Neutrophils # (1.3-7.7) k/uL Lymphocytes # (1.0-4.8) k/uL Sodium (137-145) mmol/L Chloride (98-107) mmol/L Carbon Dioxide (22-30) mmol/L BUN (9-20) mg/dL Glucose (74-99) mg/dL POC Glucose (mg/dL) 319 H 298 H 204 H (70-110) mg/dL 08/20/23 08/20/23 08/20/23 Range/Units 07:36 07:36 10:53 WBC 11.5 H (3.8-10.6) k/uL Hgb 12.5 L (13.0-17.5) gm/dL Hct 38.9 L (39.0-53.0) % RDW 17.1 H (11.5-15.5) % Neutrophils # 10.3 H (1.3-7.7) k/uL Lymphocytes # 0.4 L (1.0-4.8) k/uL Sodium 134 L (137-145) mmol/L Chloride 86 L (98-107) mmol/L Carbon Dioxide 33 H (22-30) mmol/L BUN 36 H (9-20) mg/dL Glucose 288 H (74-99) mg/dL POC Glucose (mg/dL) 272 H (70-110) mg/dL Microbiology - Last 24 Hours (Table) 08/17/23 17:40 Blood Culture - Preliminary Blood 08/17/23 17:27 Blood Culture - Preliminary Blood Assessment and Plan Assessment: Acute on chronic hypoxemic respiratory failure, likely multifactorial, secondary to a combination of COPD and systolic CHF exacerbation. Chest x-ray on arrival to our facility shows cardiomegaly, mild pulmonary vascular congestion and small to trace bilateral pleural effusions. the patient is clinically improving Acute exacerbation of severe oxygen dependent COPD CHF with ejection fraction of 40-45% moderate concentric LVH and moderate degree of pulmonary hypertension.repeat echo cardiac exam continues to show RV dilatation and moderate degree of pulmonary hypertension. Ejection fraction is improved and is currently up to 50-55%. Chronic atrial fibrillation, with controlled ventricular rate, normally anticoagulated on Eliquis, Essential hypertension Hyperlipidemia Diabetes mellitus type 2, complicated by diabetic neuropathy Morbid obesity with BMI of 31 kg/m Chronic pain Chronic ongoing tobacco dependence Umbilical Hernia Smoker Plan: Clinically improving patient is currently on 3 to 4 L of oxygen nasal cannula Continue bronchodilators Continue IV Solu-Medrol, the same dose Continue IV Rocephin Continue diuretics and the patient is on a combination of Lasix and Zaroxolyn Continue anticoagulation with Eliquis repeat echocardiogram was noted We'll continue to follow
[2023-08-20 16:29] LABS: Glucose,Whole Blood 337 mg/dL (70-110)
[2023-08-20] MEDS: MELATONIN 3 MG TABLET PO SCH (21:17)
[2023-08-20] MEDS: INSULIN DETEMIR (LEVEMIR) 100 UNIT/ML SYR SQ SCH (21:17)
[2023-08-20] MEDS: diazePAM 5 MG TAB PO PRN (21:17)
[2023-08-20] MEDS: ATORVASTATIN 40 MG TAB PO SCH (21:17)
[2023-08-20 21:20] LABS: Glucose,Whole Blood 227 mg/dL (70-110)
--- NOTE | 2023-08-21 00:14 | P.PN ---
Subjective Progress Note Date: 08/19/23 patient is a 72-year-old male with a known history of COPD on home oxygen, chronic hypoxemic respiratory failure, chronic atrial fibrillation on anticoagulation with Eliquis, hypertension, hyperlipidemia, osteoarthritis, anxiety/depression currently everyday smoker/vapor was initially presented to ER at [facility] with complaints of worsening shortness of breath. Patient was transferred to [facility] due to acute exacerbation of COPD. Otherwise patient denies any complaints of chest pain. Patient was having cough but unable to bring up any sputum. Denies any worsening leg swelling. Denies any fever or chills. No headache or dizziness or lightheadedness. Patient was previously admitted to hospital with similar complaints. Chest x-ray showed correlate for mild volume overload. EKG showed atrial fibrillation with heart rate 89. Laboratory showed WBC 8.4 hemoglobin 11.7 and platelets 291 and RDW 17.5, sodium 135 potassium 3.9 chloride 94 bicarb is 30 BUN 18 and creatinine 0.61 blood sugar is 216, proBNP 1360 and total protein 6.2 and albumin 3.7. COVID-19, influenza A, B, RSV not detected. Patient is currently requiring oxygen at 3 L via nasal cannula. 08/19/2023 Patient is currently lying in the bed. Awake alert and oriented x 3. On 3 L by nasal cannula. Still complains of shortness of breath and exertional dyspnea and also bilateral wheezing and scattered rhonchi on examination. Also complains of cough and chest congestion and unable to bring up much sputum. Patient is being current on antibiotics, ceftriaxone. Continued on IV Solu- Medrol 60 mg every 6 hourly and also on Lasix 40 mg twice daily. Patient has been afebrile. A1c 6.1 and blood sugar is slightly elevated. Patient was started Levemir 15 units at bedtime and also continued on insulin sliding scale. Current medications reviewed. Objective - Vital Signs Vital signs: Vital Signs Temp 97.7 F 08/19/23 17:41 Pulse 105 H 08/19/23 17:41 Resp 17 08/19/23 17:41 BP 120/68 08/19/23 17:41 Pulse Ox 96 08/19/23 17:41 FiO2 Intake & Output 08/19/23 08/19/23 08/20/23 06:59 18:59 06:59 Intake Total 1760 Output Total 2300 2850 Balance -2300 -1090 Intake: Oral 1760 Output: Urine 2300 2850 Other: Voiding Method Urinal - Exam PHYSICAL EXAMINATION: Patient is lying in the bed comfortably, no acute distress, awake alert and oriented.. HEENT: Normocephalic. Neck is supple. Pupils reactive. Nostrils clear. Oral cavity is moist. Neck reveals no JVD, carotid bruits, or thyromegaly. CHEST EXAMINATION: Trachea is central. Symmetrical expansion. Bibasilar diminished sounds and wheezing and scattered rhonchi.. CARDIAC: Normal S1, S2 with no gallops. Irregularly irregular rhythm. ABDOMEN: Soft. Bowel sounds present. Nontender. No organomegaly. No abdominal bruits. Extremities: Bilateral lower extremity trace edema. No clubbing or cyanosis Neurologically awake, alert, oriented x3 with well-coordinated movements. No focal deficits noted. Mild cognitive impairment. Skin: No rash or skin lesions. Psychiatric: Coperative. Nonsuicidal, Musculoskeletal: No joint swelling or deformity. Normal range of motion. - Labs CBC & Chem 7: 08/20/23 07:36 08/20/23 07:36 Labs: Abnormal Lab Results - Last 24 Hours (Table) 08/18/23 08/19/23 08/19/23 Range/Units 20:59 05:36 05:37 POC Glucose (mg/dL) 252 H 181 H (70-110) mg/dL Hemoglobin A1c 6.1 H (<=6.0) % Iron (65-175) UG/DL % Saturation (15.00-50.00) 08/19/23 08/19/23 08/19/23 Range/Units 05:37 08:43 11:29 POC Glucose (mg/dL) 295 H 223 H (70-110) mg/dL Hemoglobin A1c (<=6.0) % Iron 28 L (65-175) UG/DL % Saturation 7.82 L (15.00-50.00) 08/19/23 08/19/23 Range/Units 16:34 20:04 POC Glucose (mg/dL) 319 H 298 H (70-110) mg/dL Hemoglobin A1c (<=6.0) % Iron (65-175) UG/DL % Saturation (15.00-50.00) Microbiology - Last 24 Hours (Table) 08/17/23 17:40 Blood Culture - Preliminary Blood 08/17/23 17:27 Blood Culture - Preliminary Blood Assessment and Plan Assessment: Acute on chronic hypoxemic respiratory failure secondary to COPD exacerbation and mild CHF exacerbation Acute exacerbation COPD Acute on chronic CHF with reduced ejection fraction 40 to 45% and moderate pulmonary hypertension Chronic atrial fibrillation on anticoagulation with Eliquis Hypertension Hyperlipidemia Diabetes type 2 [id number] Diabetic peripheral neuropathy Chronic ongoing active addiction Osteoarthritis GERD Anxiety/depression DVT prophylaxis patient is already on Eliquis GI prophylaxis with Protonix Plan: Patient will be continued on IV Solu-Medrol 60 mg every 6 hourly and DuoNebs. Continue with home dose of Lasix 40 mg p.o. twice daily. Received a dose of IV Lasix 80 mg x 1 in the ER. Continue with Aldactone. Patient will be continued on metoprolol and Eliquis and other blood pressure medications. Currently on ceftriaxone 1 g daily. Pulmonary is on board. Follow up closely. Time with Patient: Greater than 30
--- NOTE | 2023-08-21 00:17 | P.PN ---
Subjective Progress Note Date: 08/20/23 patient is a 72-year-old male with a known history of COPD on home oxygen, chronic hypoxemic respiratory failure, chronic atrial fibrillation on anticoagulation with Eliquis, hypertension, hyperlipidemia, osteoarthritis, anxiety/depression currently everyday smoker/vapor was initially presented to ER at [facility] with complaints of worsening shortness of breath. Patient was transferred to [facility] due to acute exacerbation of COPD. Otherwise patient denies any complaints of chest pain. Patient was having cough but unable to bring up any sputum. Denies any worsening leg swelling. Denies any fever or chills. No headache or dizziness or lightheadedness. Patient was previously admitted to hospital with similar complaints. Chest x-ray showed correlate for mild volume overload. EKG showed atrial fibrillation with heart rate 89. Laboratory showed WBC 8.4 hemoglobin 11.7 and platelets 291 and RDW 17.5, sodium 135 potassium 3.9 chloride 94 bicarb is 30 BUN 18 and creatinine 0.61 blood sugar is 216, proBNP 1360 and total protein 6.2 and albumin 3.7. COVID-19, influenza A, B, RSV not detected. Patient is currently requiring oxygen at 3 L via nasal cannula. 08/19/2023 Patient is currently lying in the bed. Awake alert and oriented x 3. On 3 L by nasal cannula. Still complains of shortness of breath and exertional dyspnea and also bilateral wheezing and scattered rhonchi on examination. Also complains of cough and chest congestion and unable to bring up much sputum. Patient is being current on antibiotics, ceftriaxone. Continued on IV Solu- Medrol 60 mg every 6 hourly and also on Lasix 40 mg twice daily. Patient has been afebrile. A1c 6.1 and blood sugar is slightly elevated. Patient was started Levemir 15 units at bedtime and also continued on insulin sliding scale. 08/20/2023 Patient is sitting in the chair today. Breathing status is better. Wheezing is also much improved with scattered rhonchi. No complaints of chest pain. No nausea vomiting abdominal pain or diarrhea. Tolerating oral diet. Patient is being continued on IV Solu-Medrol, DuoNebs, also on home dose of Lasix 40 mg twice daily. Patient is also on antibiotics ceftriaxone and blood cultures preliminary is negative so far. Afebrile. Laboratory data showed WBC 11.5 hemoglobin 12.3 and platelets 335, sodium 134 potassium 3.5 chloride 86 bicarb is 33 BUN 36 and creatinine 0.9 and blood sugar is 288 Current medications reviewed. Objective - Vital Signs Vital signs: Vital Signs Temp 97.7 F 08/20/23 14:00 Pulse 88 08/20/23 20:51 Resp 18 08/20/23 14:00 BP 123/69 08/20/23 14:00 Pulse Ox 98 08/20/23 14:00 FiO2 Intake & Output 08/20/23 08/20/23 08/21/23 06:59 18:59 06:59 Intake Total 480 Output Total 2300 3150 Balance -2300 -2670 Weight 112.8 kg Intake: Oral 480 Output: Urine 2300 3150 Other: Voiding Method Urinal Urinal Urinal # Voids 2 - Exam PHYSICAL EXAMINATION: Patient is lying in the bed comfortably, no acute distress, awake alert and oriented.. HEENT: Normocephalic. Neck is supple. Pupils reactive. Nostrils clear. Oral cavity is moist. Neck reveals no JVD, carotid bruits, or thyromegaly. CHEST EXAMINATION: Trachea is central. Symmetrical expansion. Bibasilar diminished sounds and exp wheezing and scattered rhonchi.. CARDIAC: Normal S1, S2 with no gallops. Irregularly irregular rhythm. ABDOMEN: Soft. Bowel sounds present. Nontender. No organomegaly. No abdominal bruits. Extremities: Bilateral lower extremity trace edema. No clubbing or cyanosis Neurologically awake, alert, oriented x3 with well-coordinated movements. No focal deficits noted. Mild cognitive impairment. Skin: No rash or skin lesions. Psychiatric: Coperative. Nonsuicidal, Musculoskeletal: No joint swelling or deformity. Normal range of motion. - Labs CBC & Chem 7: 08/20/23 07:36 08/20/23 07:36 Labs: Abnormal Lab Results - Last 24 Hours (Table) 08/20/23 08/20/23 08/20/23 Range/Units 05:30 07:36 07:36 WBC 11.5 H (3.8-10.6) k/uL Hgb 12.5 L (13.0-17.5) gm/dL Hct 38.9 L (39.0-53.0) % RDW 17.1 H (11.5-15.5) % Neutrophils # 10.3 H (1.3-7.7) k/uL Lymphocytes # 0.4 L (1.0-4.8) k/uL Sodium 134 L (137-145) mmol/L Chloride 86 L (98-107) mmol/L Carbon Dioxide 33 H (22-30) mmol/L BUN 36 H (9-20) mg/dL Glucose 288 H (74-99) mg/dL POC Glucose (mg/dL) 204 H (70-110) mg/dL 08/20/23 08/20/23 08/20/23 Range/Units 10:53 16:27 21:19 WBC (3.8-10.6) k/uL Hgb (13.0-17.5) gm/dL Hct (39.0-53.0) % RDW (11.5-15.5) % Neutrophils # (1.3-7.7) k/uL Lymphocytes # (1.0-4.8) k/uL Sodium (137-145) mmol/L Chloride (98-107) mmol/L Carbon Dioxide (22-30) mmol/L BUN (9-20) mg/dL Glucose (74-99) mg/dL POC Glucose (mg/dL) 272 H 337 H 227 H (70-110) mg/dL Microbiology - Last 24 Hours (Table) 08/17/23 17:40 Blood Culture - Preliminary Blood 08/17/23 17:27 Blood Culture - Preliminary Blood Assessment and Plan Assessment: Acute on chronic hypoxemic respiratory failure secondary to COPD exacerbation and mild CHF exacerbation Acute exacerbation COPD Acute on chronic CHF with reduced ejection fraction 40 to 45% and moderate pulmonary hypertension Chronic atrial fibrillation on anticoagulation with Eliquis Hypertension Hyperlipidemia Diabetes type 2 [id number] Diabetic peripheral neuropathy Chronic ongoing active addiction Osteoarthritis GERD Anxiety/depression DVT prophylaxis patient is already on Eliquis GI prophylaxis with Protonix Plan: Patient will be continued on IV Solu-Medrol 60 mg every 6 hourly and DuoNebs.Continue with oxygen 3 L via nasal cannula. Continue with home dose of Lasix 40 mg p.o. twice daily. Received a dose of IV Lasix 80 mg x 1 in the ER. Continue with Aldactone. Patient will be continued on metoprolol and Eliquis and other blood pressure medications. Currently on ceftriaxone 1 g daily. Pulmonary is on board. Follow up closely. Time with Patient: Greater than 30
[2023-08-21] MEDS: IPRATROPIUM-ALBUTEROL 3 ML NEB INHALATION PRN (00:30)
[2023-08-21] MEDS: HYDROcodone/APAP 10-325MG 1 EACH TAB PO PRN ×4 (03:57→20:54)
[2023-08-21] MEDS: methylPREDNISolone SOD SUCCI 125 MG/2 ML VIAL IV SCH ×4 (05:47→23:58)
[2023-08-21 05:58] LABS: Glucose,Whole Blood 281 mg/dL (70-110)
[2023-08-21] MEDS: INSULIN ASPART (NovoLOG) 100 UNIT/ML VIAL SQ SCH ×4 (06:20→21:28)
[2023-08-21] MEDS: SYMBICORT 160-4.5 MCG INHALER INHALATION SCH ×2 (06:22→19:49)
[2023-08-21] MEDS: IPRATROPIUM-ALBUTEROL 3 ML NEB INHALATION SCH ×4 (06:22→19:50)
[2023-08-21 09:29] LABS: BUN/Creat Ratio 39.89 Ratio (12.00-20.00); Blood Urea Nitrogen 35.9 mg/dL (9.0-27.0); Calcium 9.3 mg/dL (8.7-10.3); Chloride 89 mmol/L (96-109); Glucose 189 mg/dL (70-110); Potassium 3.7 mmol/L (3.5-5.5); Sodium 138 mmol/L (135-145)
[2023-08-21 09:38] LABS: Basophils # (A) 0.02 X 10*3/uL (0.00-0.10); Basophils % (A) 0.2 %; Eosinophils # (A) 0 X 10*3/uL (0.04-0.35); Eosinophils % (A) 0 %; HCT 38.2 % (39.6-50.0); HGB 12.2 g/dL (13.0-17.0); Lymphocytes # (A) 0.38 X 10*3/uL (0.90-5.00); Lymphocytes % (A) 3.7 %; MCH 28.1 pg (27.0-32.0); MCHC 31.9 g/dL (32.0-37.0); Mean Platelet Volume 9.8 FL (9.5-12.2); Monocytes # (A) 0.45 X 10*3/uL (0.20-1.00); Monocytes % (A) 4.4 %; NRBC Per 100 WBC 0 X 10*3/uL (0.00-0.01); Neutrophils % (A) 90.3 %; Platelet Count 333 X 10*3/uL (140-440); RBC 4.34 X 10*6/uL (4.40-5.60); WBC 10.19 X 10*3/uL (4.50-10.00)
[2023-08-21] MEDS: NICOTINE 21MG/24HR PATCH TRANSDERM SCH (09:56)
[2023-08-21] MEDS: SPIRONOLACTONE 25 MG TAB PO SCH (09:56)
[2023-08-21] MEDS: APIXABAN 5 MG TAB PO SCH ×2 (09:56→20:55)
[2023-08-21] MEDS: guaiFENesin 600 MG TABLET.ER PO SCH (09:56)
[2023-08-21] MEDS: hydrALAZINE HCL 25 MG TAB PO SCH (09:56)
[2023-08-21] MEDS: LIDOCAINE 4% PATCH TOPICAL SCH (09:56)
[2023-08-21] MEDS: FUROSEMIDE 40 MG TAB PO SCH ×2 (09:56→20:55)
[2023-08-21] MEDS: TAMSULOSIN 0.4 MG CAP.ER.24H PO SCH (09:56)
[2023-08-21] MEDS: POTASSIUM CHLORIDE ER 20 MEQ TAB.ER PO SCH (09:57)
[2023-08-21] MEDS: METOPROLOL TARTRATE 50 MG TAB PO SCH ×2 (09:57→20:55)
[2023-08-21] MEDS: THEOPHYLLINE 24 HOUR 400 MG CAP.ER.24H PO SCH (09:57)
[2023-08-21] MEDS: PANTOPRAZOLE 40 MG TABLET PO SCH (09:57)
[2023-08-21] MEDS: metOLazone 2.5 MG TAB PO SCH (09:57)
[2023-08-21] MEDS: PREGABALIN 75 MG CAP PO SCH (09:57)
[2023-08-21 10:58] LABS: Glucose,Whole Blood 169 mg/dL (70-110)
[2023-08-21] MEDS: ESCITALOPRAM 5 MG TAB PO SCH (12:25)
[2023-08-21] MEDS: DULoxetine HCL 30 MG CAPSULE.DR PO SCH (12:25)
[2023-08-21] MEDS: DAPAGLIFLOZIN PROPANEDIOL 10 MG TABLET PO SCH (12:26)
--- NOTE | 2023-08-21 12:35 | P.PN ---
Subjective Progress Note Date: 08/21/23 I am seeing this patient in consultation today 08/18/2023 after he was transfered from [facility] for a combination of acute COPD and CHF exacerbation. Patient has a 72-year-old white male with past medical history significant for severe oxygen dependent COPD, normally maintained on 3 L/m nasal cannula, congestive heart failure, chronic atrial fibrillation, diabetes mellitus, hyperlipidemia, hypertension, obesity, GERD and is a ongoing chronic smoker. Patient was staying at [facility] rehab facility, he left AGAINST MEDICAL ADVICE approximately 2 weeks ago. He was worried about his home. Apparently, he did not have heat, and he is worried about his pipes freezing. Since leaving [facility], he's been progressively more short of breath. He states that he started smoking again. Also endorses a cough with minimal sputum production. Denies any fevers, chills, chest pain, hemoptysis. He does admit some bilateral lower extremity swelling. He denies missing any doses of his medications including his diuretics. Chest x-ray on arrival to our facility was mild pulmonary vascular congestion and small to trace bilateral pleural effusions. Patient has been started on Lasix twice a day. Urinal at bedside is full. Patient is currently sitting in bed, on 4 L/m nasal cannula, in no acute distress. Heart rhythm appears atrial fibrillation with controlled ventricular rate on the bedside monitor. He has known history of A. fib. Is anticoagulated on Eliquis. He still wheezing on auscultation. He has been started on a combination of DuoNeb's, Symbicort inhaler, and IV Solu-Medrol. Labs are pending. On today's evaluation, the patient continues to have increased dyspnea, chest c ongestion chest tightness and wheezing consistent with COPD exacerbation. Prominent since yesterday. The patient remains on bronchodilators and steroids. The patient is also covered with IV antibiotics. The patient is currently on Rocephin. Patient is also on Lasix 40 mg by mouth twice a day. Remains on bronchodilators. Remains on IV Solu-Medrol 60 mg every 6 hours. No new labs are available from today. Blood sugars are slightly elevated and the patient is receiving/skeletal insulin coverage. The patient is on 7 iron deficiency and hemoglobin is currently at 11.7. Serum iron is at 28. HbA1c is at 6.1. Patient is also on long-term and cognition without liquids 5 mg by mouth twice a day.he is currently on 3 L of oxygen by nasal cannula.Repeat echo cardiac exam shows a normal ejection fraction of 50-55%. The patient severe RV dilatation and mother did reveal pulmonary hypertension with a PA pressure 49. There is also mild aortic stenosis. On today's evaluation of 08/20/2023, the patient is doing well. No new complaints on today's evaluation. Remains on the same treatment of bronchodilators and steroids and the patient is also on IV Solu-Medrol. The shortness of breath compared to yesterday. Labs are unchanged. He has a 36 with a creatinine of 0.9 and sodium levels of 134. The white cell count 11.5 with a hemoglobin of 12.5. Patient is currently on 47 with a nasal cannula with a pulse ox of 98%. 08/21/2023, the patient is feeling better. Gradually improving in terms of COPD exacerbation. Remains on bronchodilators. Remains on steroids. Remains on IV Rocephin. Remains on diuretics. He is on a combination of Lasix and Zaroxolyn. The labs are stable. BUN is at 35 and a creatinine of 0.9. Sodium level is at 138. The white cell cause of 10.1 with a hemoglobin 12.2. Objective - Vital Signs Vital signs: Vital Signs Temp 97.5 F L 08/21/23 08:00 Pulse 82 08/21/23 08:00 Resp 18 08/21/23 08:00 BP 146/81 08/21/23 08:00 Pulse Ox 94 L 08/21/23 09:10 FiO2 Intake & Output 08/20/23 08/21/23 08/21/23 18:59 06:59 18:59 Intake Total 480 Output Total 3150 1500 Balance -2670 -1500 Weight 114.2 kg Intake: Oral 480 Output: Urine 3150 1500 Other: Voiding Method Urinal Urinal - Exam GENERAL EXAM: Alert, obese 72-year-old white male, disheveled, comfortable in no apparent distress. HEAD: Normocephalic and atraumatic EYES: Normal reaction of pupils, equal size. NOSE: Clear with pink turbinates. THROAT: No erythema or exudates. NECK: No masses, no JVD. CHEST: No chest wall deformity. LUNGS: Equal air entry with wheezing and scattered rhonchi heard throughout. On 4 L/m nasal cannula. No conversational dyspnea or accessory muscle use.. CVS: S1 and S2 normal with no audible murmur, irregular rhythm. No extra heart sounds ABDOMEN: No hepatosplenomegaly, active bowel sounds, no guarding or rigidity. SPINE: No scoliosis or deformity SKIN: No rashes CENTRAL NERVOUS SYSTEM: No focal deficits, tone is normal in all 4 extremities. EXTREMITIES: There is 3+ bilateral pitting edema. No clubbing, or cyanosis. Peripheral pulses are intact. - Labs CBC & Chem 7: 08/21/23 04:53 08/21/23 04:53 Labs: Abnormal Lab Results - Last 24 Hours (Table) 08/20/23 08/20/23 08/21/23 Range/Units 16:27 21:19 04:53 WBC 10.19 H (4.50-10.00) X 10*3/uL RBC 4.34 L (4.40-5.60) X 10*6/uL Hgb 12.2 L (13.0-17.0) g/dL Hct 38.2 L (39.6-50.0) % MCHC 31.9 L (32.0-37.0) g/dL RDW 16.0 H (11.5-14.5) % Immature Gran # 0.14 H (0.00-0.04) X 10*3/uL Neutrophils # 9.20 H (1.80-7.70) X 10*3/uL Lymphocytes # 0.38 L (0.90-5.00) X 10*3/uL Eosinophils # 0 L (0.04-0.35) X 10*3/uL Chloride (96-109) mmol/L Carbon Dioxide (21.6-31.8) mmol/L Anion Gap (4.00-12.00) mmol/L BUN (9.0-27.0) mg/dL BUN/Creatinine Ratio (12.00-20.00) Ratio Glucose (70-110) mg/dL POC Glucose (mg/dL) 337 H 227 H (70-110) mg/dL 08/21/23 08/21/23 08/21/23 Range/Units 04:53 05:57 10:57 WBC (4.50-10.00) X 10*3/uL RBC (4.40-5.60) X 10*6/uL Hgb (13.0-17.0) g/dL Hct (39.6-50.0) % MCHC (32.0-37.0) g/dL RDW (11.5-14.5) % Immature Gran # (0.00-0.04) X 10*3/uL Neutrophils # (1.80-7.70) X 10*3/uL Lymphocytes # (0.90-5.00) X 10*3/uL Eosinophils # (0.04-0.35) X 10*3/uL Chloride 89 L (96-109) mmol/L Carbon Dioxide 36.0 H (21.6-31.8) mmol/L Anion Gap 13.00 H (4.00-12.00) mmol/L BUN 35.9 H (9.0-27.0) mg/dL BUN/Creatinine Ratio 39.89 H (12.00-20.00) Ratio Glucose 189 H (70-110) mg/dL POC Glucose (mg/dL) 281 H 169 H (70-110) mg/dL Microbiology - Last 24 Hours (Table) 08/17/23 17:40 Blood Culture - Preliminary Blood 08/17/23 17:27 Blood Culture - Preliminary Blood Assessment and Plan Assessment: Acute on chronic hypoxemic respiratory failure, likely multifactorial, secondary to a combination of COPD and systolic CHF exacerbation. Chest x-ray on arrival to our facility shows cardiomegaly, mild pulmonary vascular congestion and small to trace bilateral pleural effusions. the patient is clinically improving Acute exacerbation of severe oxygen dependent COPD CHF with ejection fraction of 40-45% moderate concentric LVH and moderate degree of pulmonary hypertension.repeat echo cardiac exam continues to show RV di latation and moderate degree of pulmonary hypertension. Ejection fraction is improved and is currently up to 50-55%. Chronic atrial fibrillation, with controlled ventricular rate, normally anticoagulated on Eliquis, Essential hypertension Hyperlipidemia Diabetes mellitus type 2, complicated by diabetic neuropathy Morbid obesity with BMI of 31 kg/m Chronic pain Chronic ongoing tobacco dependence Umbilical Hernia Smoker Plan: Clinically improving, and based on that we'll continue same treatment. patient is currently on 3 to 4 L of oxygen nasal cannula Continue bronchodilators Continue IV Solu-Medrol, the same dose Continue IV Rocephin Continue diuretics and the patient is on a combination of Lasix and Zaroxolyn Continue anticoagulation with Eliquis repeat echocardiogram was noted We'll continue to follow
[2023-08-21 16:19] LABS: Glucose,Whole Blood 302 mg/dL (70-110)
[2023-08-21] MEDS: MELATONIN 3 MG TABLET PO SCH (20:55)
[2023-08-21] MEDS: ATORVASTATIN 40 MG TAB PO SCH (20:55)
[2023-08-21] MEDS: diazePAM 5 MG TAB PO PRN (20:55)
[2023-08-21 21:08] LABS: Glucose,Whole Blood 193 mg/dL (70-110)
[2023-08-21] MEDS: INSULIN DETEMIR (LEVEMIR) 100 UNIT/ML SYR SQ SCH (21:28)
--- NOTE | 2023-08-21 22:35 | P.PN ---
Subjective Progress Note Date: 08/21/23 patient is a 72-year-old male with a known history of COPD on home oxygen, chronic hypoxemic respiratory failure, chronic atrial fibrillation on anticoagulation with Eliquis, hypertension, hyperlipidemia, osteoarthritis, anxiety/depression currently everyday smoker/vapor was initially presented to ER at [facility] with complaints of worsening shortness of breath. Patient was transferred to [facility] due to acute exacerbation of COPD. Otherwise patient denies any complaints of chest pain. Patient was having cough but unable to bring up any sputum. Denies any worsening leg swelling. Denies any fever or chills. No headache or dizziness or lightheadedness. Patient was previously admitted to hospital with similar complaints. Chest x-ray showed correlate for mild volume overload. EKG showed atrial fibrillation with heart rate 89. Laboratory showed WBC 8.4 hemoglobin 11.7 and platelets 291 and RDW 17.5, sodium 135 potassium 3.9 chloride 94 bicarb is 30 BUN 18 and creatinine 0.61 blood sugar is 216, proBNP 1360 and total protein 6.2 and albumin 3.7. COVID-19, influenza A, B, RSV not detected. Patient is currently requiring oxygen at 3 L via nasal cannula. 08/19/2023 Patient is currently lying in the bed. Awake alert and oriented x 3. On 3 L by nasal cannula. Still complains of shortness of breath and exertional dyspnea and also bilateral wheezing and scattered rhonchi on examination. Also complains of cough and chest congestion and unable to bring up much sputum. Patient is being current on antibiotics, ceftriaxone. Continued on IV Solu- Medrol 60 mg every 6 hourly and also on Lasix 40 mg twice daily. Patient has been afebrile. A1c 6.1 and blood sugar is slightly elevated. Patient was started Levemir 15 units at bedtime and also continued on insulin sliding scale. 08/20/2023 Patient is sitting in the chair today. Breathing status is better. Wheezing is also much improved with scattered rhonchi. No complaints of chest pain. No nausea vomiting abdominal pain or diarrhea. Tolerating oral diet. Patient is being continued on IV Solu-Medrol, DuoNebs, also on home dose of Lasix 40 mg twice daily. Patient is also on antibiotics ceftriaxone and blood cultures preliminary is negative so far. Afebrile. Laboratory data showed WBC 11.5 hemoglobin 12.3 and platelets 335, sodium 134 potassium 3.5 chloride 86 bicarb is 33 BUN 36 and creatinine 0.9 and blood sugar is 288 08/21/2023 Patient is currently sitting in the chair. Awake alert and oriented x 3. Shortness of breath is better. Having expiratory wheezing and scattered rhonchi on exam. Currently requiring 3 L oxygen via nasal cannula. No complaints of chest pain. No headache or dizziness or lightheadedness. Patient is being continued on IV Solu-Medrol and antibiotics ceftriaxone. Currently on p.o. Lasix 40 mg twice daily. Lab data showed WBC 10.1 hemoglobin 12.2 and platelets 333 Sodium 138 potassium 3.7 chloride 89 bicarb is 36 BUN 35.9 and creatinine 0.9 and blood sugar is 189. Calcium 9.3. Current medications reviewed. Objective - Vital Signs Vital signs: Vital Signs Temp 97.3 F L 08/21/23 14:00 Pulse 96 08/21/23 14:00 Resp 19 08/21/23 14:00 BP 116/77 08/21/23 14:00 Pulse Ox 97 08/21/23 14:00 FiO2 Intake & Output 08/20/23 08/21/23 08/21/23 18:59 06:59 18:59 Intake Total 480 Output Total 3150 1500 1900 Balance -2670 -1500 -1900 Weight 114.2 kg Intake: Oral 480 Output: Urine 3150 1500 1900 Other: Voiding Method Urinal Urinal - Exam PHYSICAL EXAMINATION: Patient is lying in the bed comfortably, no acute distress, awake alert and oriented.. HEENT: Normocephalic. Neck is supple. Pupils reactive. Nostrils clear. Oral cavity is moist. Neck reveals no JVD, carotid bruits, or thyromegaly. CHEST EXAMINATION: Trachea is central. Symmetrical expansion. Bibasilar diminished sounds and exp wheezing and scattered rhonchi.. CARDIAC: Normal S1, S2 with no gallops. Irregularly irregular rhythm. ABDOMEN: Soft. Bowel sounds present. Nontender. No organomegaly. No abdominal bruits. Extremities: Bilateral lower extremity trace edema. No clubbing or cyanosis Neurologically awake, alert, oriented x3 with well-coordinated movements. No focal deficits noted. Mild cognitive impairment. Skin: No rash or skin lesions. Psychiatric: Coperative. Nonsuicidal, Musculoskeletal: No joint swelling or deformity. Normal range of motion. - Labs CBC & Chem 7: 08/21/23 04:53 08/21/23 04:53 Labs: Abnormal Lab Results - Last 24 Hours (Table) 08/20/23 08/20/23 08/21/23 Range/Units 16:27 21:19 04:53 WBC 10.19 H (4.50-10.00) X 10*3/uL RBC 4.34 L (4.40-5.60) X 10*6/uL Hgb 12.2 L (13.0-17.0) g/dL Hct 38.2 L (39.6-50.0) % MCHC 31.9 L (32.0-37.0) g/dL RDW 16.0 H (11.5-14.5) % Immature Gran # 0.14 H (0.00-0.04) X 10*3/uL Neutrophils # 9.20 H (1.80-7.70) X 10*3/uL Lymphocytes # 0.38 L (0.90-5.00) X 10*3/uL Eosinophils # 0 L (0.04-0.35) X 10*3/uL Chloride (96-109) mmol/L Carbon Dioxide (21.6-31.8) mmol/L Anion Gap (4.00-12.00) mmol/L BUN (9.0-27.0) mg/dL BUN/Creatinine Ratio (12.00-20.00) Ratio Glucose (70-110) mg/dL POC Glucose (mg/dL) 337 H 227 H (70-110) mg/dL 08/21/23 08/21/23 08/21/23 Range/Units 04:53 05:57 10:57 WBC (4.50-10.00) X 10*3/uL RBC (4.40-5.60) X 10*6/uL Hgb (13.0-17.0) g/dL Hct (39.6-50.0) % MCHC (32.0-37.0) g/dL RDW (11.5-14.5) % Immature Gran # (0.00-0.04) X 10*3/uL Neutrophils # (1.80-7.70) X 10*3/uL Lymphocytes # (0.90-5.00) X 10*3/uL Eosinophils # (0.04-0.35) X 10*3/uL Chloride 89 L (96-109) mmol/L Carbon Dioxide 36.0 H (21.6-31.8) mmol/L Anion Gap 13.00 H (4.00-12.00) mmol/L BUN 35.9 H (9.0-27.0) mg/dL BUN/Creatinine Ratio 39.89 H (12.00-20.00) Ratio Glucose 189 H (70-110) mg/dL POC Glucose (mg/dL) 281 H 169 H (70-110) mg/dL Microbiology - Last 24 Hours (Table) 08/17/23 17:40 Blood Culture - Preliminary Blood 08/17/23 17:27 Blood Culture - Preliminary Blood Assessment and Plan Assessment: Acute on chronic hypoxemic respiratory failure secondary to COPD exacerbation and mild CHF exacerbation Acute exacerbation COPD Acute on chronic CHF with reduced ejection fraction 40 to 45% and moderate pulmonary hypertension Chronic atrial fibrillation on anticoagulation with Eliquis Hypertension Hyperlipidemia Diabetes type 2 [id number] Diabetic peripheral neuropathy Chronic ongoing active addiction Osteoarthritis GERD Anxiety/depression DVT prophylaxis patient is already on Eliquis GI prophylaxis with Protonix Plan: Patient will be continued on IV Solu-Medrol 60 mg every 6 hourly and DuoNebs.Continue with oxygen 3 L via nasal cannula. Continue with home dose of Lasix 40 mg p.o. twice daily. Received a dose of IV Lasix 80 mg x 1 in the ER. Continue with Aldactone. Patient is being continued on metoprolol and Eliquis and other blood pressure medications. Currently on ceftriaxone 1 g daily. Pulmonary is on board. Follow up closely. Anticipate discharge in the next 24 to 48 hours. Time with Patient: Greater than 30
[2023-08-22] MEDS: IPRATROPIUM-ALBUTEROL 3 ML NEB INHALATION PRN ×2 (01:18→05:46)
[2023-08-22] MEDS: HYDROcodone/APAP 10-325MG 1 EACH TAB PO PRN ×5 (01:37→20:58)
[2023-08-22] MEDS: methylPREDNISolone SOD SUCCI 125 MG/2 ML VIAL IV SCH ×4 (05:34→23:36)
[2023-08-22 06:19] LABS: Glucose,Whole Blood 326 mg/dL (70-110)
[2023-08-22] MEDS: INSULIN ASPART (NovoLOG) 100 UNIT/ML VIAL SQ SCH ×4 (06:38→20:50)
[2023-08-22 09:06] LABS: Basophils # (A) 0.01 X 10*3/uL (0.00-0.10); Basophils % (A) 0.1 %; Eosinophils # (A) 0 X 10*3/uL (0.04-0.35); Eosinophils % (A) 0 %; HCT 39.9 % (39.6-50.0); HGB 12.9 g/dL (13.0-17.0); Lymphocytes # (A) 0.32 X 10*3/uL (0.90-5.00); MCH 28.4 pg (27.0-32.0); MCHC 32.3 g/dL (32.0-37.0); MCV 87.7 FL (80.0-97.0); Mean Platelet Volume 9.4 FL (9.5-12.2); Monocytes # (A) 0.44 X 10*3/uL (0.20-1.00); Monocytes % (A) 4.1 %; NRBC Per 100 WBC 0.02 X 10*3/uL (0.00-0.01); Neutrophils # (A) 9.79 X 10*3/uL (1.80-7.70); Neutrophils % (A) 91.2 %; Platelet Count 317 X 10*3/uL (140-440); RBC 4.55 X 10*6/uL (4.40-5.60); WBC 10.73 X 10*3/uL (4.50-10.00)
[2023-08-22 09:20] LABS: Calcium 9.4 mg/dL (8.7-10.3); Carbon Dioxide 36.6 mmol/L (21.6-31.8); Chloride 84 mmol/L (96-109); Glucose 242 mg/dL (70-110); Potassium 3.6 mmol/L (3.5-5.5); Sodium 137 mmol/L (135-145)
[2023-08-22] MEDS: IPRATROPIUM-ALBUTEROL 3 ML NEB INHALATION SCH ×4 (09:31→20:22)
[2023-08-22] MEDS: SYMBICORT 160-4.5 MCG INHALER INHALATION SCH ×2 (09:31→20:22)
[2023-08-22] MEDS: LIDOCAINE 4% PATCH TOPICAL SCH (09:41)
[2023-08-22] MEDS: TAMSULOSIN 0.4 MG CAP.ER.24H PO SCH (09:41)
[2023-08-22] MEDS: NICOTINE 21MG/24HR PATCH TRANSDERM SCH (09:41)
[2023-08-22] MEDS: POTASSIUM CHLORIDE ER 20 MEQ TAB.ER PO SCH (09:42)
[2023-08-22] MEDS: METOPROLOL TARTRATE 50 MG TAB PO SCH ×2 (09:42→20:51)
[2023-08-22] MEDS: APIXABAN 5 MG TAB PO SCH ×2 (09:42→20:52)
[2023-08-22] MEDS: PREGABALIN 75 MG CAP PO SCH (09:42)
[2023-08-22] MEDS: ESCITALOPRAM 5 MG TAB PO SCH (09:43)
[2023-08-22] MEDS: hydrALAZINE HCL 25 MG TAB PO SCH (09:43)
[2023-08-22] MEDS: DULoxetine HCL 30 MG CAPSULE.DR PO SCH (09:43)
[2023-08-22] MEDS: PANTOPRAZOLE 40 MG TABLET PO SCH (09:43)
[2023-08-22] MEDS: SPIRONOLACTONE 25 MG TAB PO SCH (09:43)
[2023-08-22] MEDS: FUROSEMIDE 40 MG TAB PO SCH ×2 (09:43→20:51)
[2023-08-22] MEDS: guaiFENesin 600 MG TABLET.ER PO SCH (09:43)
[2023-08-22] MEDS: metOLazone 2.5 MG TAB PO SCH (09:44)
[2023-08-22] MEDS: DAPAGLIFLOZIN PROPANEDIOL 10 MG TABLET PO SCH (09:44)
[2023-08-22] MEDS: THEOPHYLLINE 24 HOUR 400 MG CAP.ER.24H PO SCH (09:45)
[2023-08-22 11:17] LABS: Glucose,Whole Blood 274 mg/dL (70-110)
--- NOTE | 2023-08-22 14:32 | P.PN ---
Subjective Progress Note Date: 08/22/23 I am seeing this patient in consultation today 08/18/2023 after he was transfered from [facility] for a combination of acute COPD and CHF exacerbation. Patient has a 72-year-old white male with past medical history significant for severe oxygen dependent COPD, normally maintained on 3 L/m nasal cannula, congestive heart failure, chronic atrial fibrillation, diabetes mellitus, hyperlipidemia, hypertension, obesity, GERD and is a ongoing chronic smoker. Patient was staying at [facility] rehab facility, he left AGAINST MEDICAL ADVICE approximately 2 weeks ago. He was worried about his home. Apparently, he did not have heat, and he is worried about his pipes freezing. Since leaving [facility], he's been progressively more short of breath. He states that he started smoking again. Also endorses a cough with minimal sputum production. Denies any fevers, chills, chest pain, hemoptysis. He does admit some bilateral lower extremity swelling. He denies missing any doses of his medications i ncluding his diuretics. Chest x-ray on arrival to our facility was mild pulmonary vascular congestion and small to trace bilateral pleural effusions. Patient has been started on Lasix twice a day. Urinal at bedside is full. Patient is currently sitting in bed, on 4 L/m nasal cannula, in no acute distress. Heart rhythm appears atrial fibrillation with controlled ventricular rate on the bedside monitor. He has known history of A. fib. Is anticoagulated on Eliquis. He still wheezing on auscultation. He has been started on a combination of DuoNeb's, Symbicort inhaler, and IV Solu-Medrol. Labs are pending. On today's evaluation, the patient continues to have increased dyspnea, chest co ngestion chest tightness and wheezing consistent with COPD exacerbation. Prominent since yesterday. The patient remains on bronchodilators and steroids. The patient is also covered with IV antibiotics. The patient is currently on Rocephin. Patient is also on Lasix 40 mg by mouth twice a day. Remains on bronchodilators. Remains on IV Solu-Medrol 60 mg every 6 hours. No new labs are available from today. Blood sugars are slightly elevated and the patient is receiving/skeletal insulin coverage. The patient is on 7 iron deficiency and hemoglobin is currently at 11.7. Serum iron is at 28. HbA1c is at 6.1. Patient is also on long-term and cognition without liquids 5 mg by mouth twice a day.he is currently on 3 L of oxygen by nasal cannula.Repeat echo cardiac exam shows a normal ejection fraction of 50-55%. The patient severe RV dilatation and mother did reveal pulmonary hypertension with a PA pressure 49. There is also mild aortic stenosis. On today's evaluation of 08/20/2023, the patient is doing well. No new complaints on today's evaluation. Remains on the same treatment of bronchodilators and steroids and the patient is also on IV Solu-Medrol. The shortness of breath compared to yesterday. Labs are unchanged. He has a 36 with a creatinine of 0.9 and sodium levels of 134. The white cell count 11.5 with a hemoglobin of 12.5. Patient is currently on 47 with a nasal cannula with a pulse ox of 98%. 08/21/2023, the patient is feeling better. Gradually improving in terms of COPD exacerbation. Remains on bronchodilators. Remains on steroids. Remains on IV Rocephin. Remains on diuretics. He is on a combination of Lasix and Zaroxolyn. The labs are stable. BUN is at 35 and a creatinine of 0.9. Sodium level is at 138. The white cell cause of 10.1 with a hemoglobin 12.2. The patient was seen today 08/22/2023 in follow-up on the regular medical floor. He is currently sitting up in a chair at the bedside. Awake and alert in no acute distress. Improving but not quite back to baseline. Still somewhat bronchospastic and wheezing. Blood cultures revealed no growth. White count 10.7. Hemoglobin 12.9. Sodium 137. Potassium 3.6. Bicarb 37. BUN 39. Creatinine 1.0. Glucose 242. He is continued on DuoNeb inhalations, theophylline, Symbicort, Solu-Medrol. Remains on diuretics. Anticoagulated with Eliquis. NicoDerm patches in place. Objective - Vital Signs Vital signs: Vital Signs Temp 97.7 F 08/22/23 13:36 Pulse 92 08/22/23 13:36 Resp 22 08/22/23 13:36 BP 142/68 08/22/23 13:36 Pulse Ox 99 08/22/23 13:36 FiO2 Intake & Output 08/21/23 08/22/23 08/22/23 18:59 06:59 18:59 Intake Total 480 Output Total 2870 1800 700 Balance -5220 -1800 -700 Weight 114.5 kg Intake: Oral 480 Output: Urine 2870 1800 700 Other: Voiding Method Urinal # Voids 1 - Exam GENERAL EXAM: Alert, obese 72-year-old male, 3 L nasal cannula, up in a chair, comfortable in no apparent distress. HEAD: Normocephalic and atraumatic EYES: Normal reaction of pupils, equal size. NOSE: Clear with pink turbinates. THROAT: No erythema or exudates. NECK: No masses, no JVD. CHEST: No chest wall deformity. LUNGS: Equal air entry with wheezing and scattered rhonchi heard throughout. No conversational dyspnea. CVS: S1 and S2 normal with no audible murmur, irregular rhythm. No extra heart sounds ABDOMEN: No hepatosplenomegaly, active bowel sounds, no guarding or rigidity. SPINE: No scoliosis or deformity SKIN: No rashes CENTRAL NERVOUS SYSTEM: No focal deficits, tone is normal in all 4 extremities. EXTREMITIES: There is 3+ bilateral pitting edema. No clubbing, or cyanosis. Peripheral pulses are intact. - Labs CBC & Chem 7: 08/22/23 05:12 08/22/23 05:12 Labs: Abnormal Lab Results - Last 24 Hours (Table) 08/21/23 08/21/23 08/22/23 Range/Units 16:18 21:06 05:12 WBC 10.73 H (4.50-10.00) X 10*3/uL Hgb 12.9 L (13.0-17.0) g/dL RDW 16.0 H (11.5-14.5) % MPV 9.4 L (9.5-12.2) FL Immature Gran # 0.17 H (0.00-0.04) X 10*3/uL Neutrophils # 9.79 H (1.80-7.70) X 10*3/uL Lymphocytes # 0.32 L (0.90-5.00) X 10*3/uL Eosinophils # 0 L (0.04-0.35) X 10*3/uL NRBC/100 WBC Diff 0.02 H (0.00-0.01) X 10*3/uL Chloride (96-109) mmol/L Carbon Dioxide (21.6-31.8) mmol/L Anion Gap (4.00-12.00) mmol/L BUN (9.0-27.0) mg/dL BUN/Creatinine Ratio (12.00-20.00) Ratio Glucose (70-110) mg/dL POC Glucose (mg/dL) 302 H 193 H (70-110) mg/dL 08/22/23 08/22/23 08/22/23 Range/Units 05:12 06:17 11:16 WBC (4.50-10.00) X 10*3/uL Hgb (13.0-17.0) g/dL RDW (11.5-14.5) % MPV (9.5-12.2) FL Immature Gran # (0.00-0.04) X 10*3/uL Neutrophils # (1.80-7.70) X 10*3/uL Lymphocytes # (0.90-5.00) X 10*3/uL Eosinophils # (0.04-0.35) X 10*3/uL NRBC/100 WBC Diff (0.00-0.01) X 10*3/uL Chloride 84 L (96-109) mmol/L Carbon Dioxide 36.6 H (21.6-31.8) mmol/L Anion Gap 16.40 H (4.00-12.00) mmol/L BUN 39.0 H (9.0-27.0) mg/dL BUN/Creatinine Ratio 39.00 H (12.00-20.00) Ratio Glucose 242 H (70-110) mg/dL POC Glucose (mg/dL) 326 H 274 H (70-110) mg/dL Assessment and Plan Assessment: Acute on chronic hypoxemic respiratory failure, likely multifactorial, secondary to a combination of COPD and systolic CHF exacerbation. Chest x-ray on arrival to our facility shows cardiomegaly, mild pulmonary vascular congestion and small to trace bilateral pleural effusions. the patient is clinically improving Acute exacerbation of severe oxygen dependent COPD Chronic and ongoing tobacco dependence CHF with ejection fraction of 40-45% moderate concentric LVH and moderate degree of pulmonary hypertension.repeat echo cardiac exam continues to show RV dilatation and moderate degree of pulmonary hypertension. Ejection fraction is improved and is currently up to 50-55%. Chronic atrial fibrillation, with controlled ventricular rate, normally anticoagulated on Eliquis, Essential hypertension Hyperlipidemia Diabetes mellitus type 2, complicated by diabetic neuropathy Morbid obesity with BMI of 31 kg/m Chronic pain Umbilical Hernia Plan: The patient was seen and evaluated Medications and labs reviewed Continue bronchodilators, steroids Continue diuretics Anticoagulated with all of this Again educated regarding the importance of complete smoking cessation NicoDerm patch remains in place Titrate the FiO2 as tolerated We will continue to follow I have personally seen and examined the patient, performed the documentation and the assessment and plan as written. Number of minutes spent on the visit: 10.
[2023-08-22 16:23] LABS: Glucose,Whole Blood 319 mg/dL (70-110)
[2023-08-22 20:32] LABS: Glucose,Whole Blood 247 mg/dL (70-110)
[2023-08-22] MEDS: ATORVASTATIN 40 MG TAB PO SCH (20:51)
[2023-08-22] MEDS: MELATONIN 3 MG TABLET PO SCH (20:51)
[2023-08-22] MEDS: diazePAM 5 MG TAB PO PRN (20:58)
[2023-08-22] MEDS: INSULIN DETEMIR (LEVEMIR) 100 UNIT/ML SYR SQ SCH (23:02)
[2023-08-23] MEDS: HYDROcodone/APAP 10-325MG 1 EACH TAB PO PRN ×5 (01:12→20:35)
[2023-08-23] MEDS ORDERED: DEXTROSE 50% SYRINGE 50 ML IVP PRN ×2 (04:11)
[2023-08-23 05:35] LABS: Glucose,Whole Blood 188 mg/dL (70-110)
[2023-08-23] MEDS: methylPREDNISolone SOD SUCCI 125 MG/2 ML VIAL IV SCH ×4 (06:32→23:24)
--- NOTE | 2023-08-23 08:35 | XR ---
EXAMINATION TYPE: XR chest 1V portable DATE OF EXAM: 08/23/2023 Comparison: 08/17/2023 Clinical History: 72-year-old male CHF Findings: Heart normal size. Atherosclerotic arch calcifications. Right greater than left interstitial density persists but aeration is improving from prior. Patchy density peripherally in the right base remains. Hyperinflation. Impression: COPD with improving interstitial density. Mild interstitial densities remain, right greater than left .
[2023-08-23] MEDS: INSULIN ASPART (NovoLOG) 100 UNIT/ML VIAL SQ SCH ×7 (08:54→20:36)
[2023-08-23] MEDS: guaiFENesin 600 MG TABLET.ER PO SCH (08:55)
[2023-08-23] MEDS: NICOTINE 21MG/24HR PATCH TRANSDERM SCH (08:55)
[2023-08-23] MEDS: APIXABAN 5 MG TAB PO SCH ×2 (08:55→20:35)
[2023-08-23] MEDS: POTASSIUM CHLORIDE ER 20 MEQ TAB.ER PO SCH (08:55)
[2023-08-23] MEDS: PREGABALIN 75 MG CAP PO SCH (08:55)
[2023-08-23] MEDS: hydrALAZINE HCL 25 MG TAB PO SCH (08:55)
[2023-08-23] MEDS: PANTOPRAZOLE 40 MG TABLET PO SCH (08:55)
[2023-08-23] MEDS: LIDOCAINE 4% PATCH TOPICAL SCH (08:55)
[2023-08-23] MEDS: SPIRONOLACTONE 25 MG TAB PO SCH (08:56)
[2023-08-23] MEDS: FUROSEMIDE 40 MG TAB PO SCH ×2 (08:56→20:36)
[2023-08-23] MEDS: TAMSULOSIN 0.4 MG CAP.ER.24H PO SCH (08:56)
[2023-08-23] MEDS: DULoxetine HCL 30 MG CAPSULE.DR PO SCH (08:56)
[2023-08-23] MEDS: metOLazone 2.5 MG TAB PO SCH (08:56)
[2023-08-23] MEDS: THEOPHYLLINE 24 HOUR 400 MG CAP.ER.24H PO SCH (08:56)
[2023-08-23] MEDS: METOPROLOL TARTRATE 50 MG TAB PO SCH ×2 (08:56→20:36)
[2023-08-23] MEDS: DAPAGLIFLOZIN PROPANEDIOL 10 MG TABLET PO SCH (08:56)
[2023-08-23] MEDS: ESCITALOPRAM 5 MG TAB PO SCH (08:56)
[2023-08-23] MEDS: IPRATROPIUM-ALBUTEROL 3 ML NEB INHALATION SCH ×4 (09:38→21:27)
[2023-08-23] MEDS: SYMBICORT 160-4.5 MCG INHALER INHALATION SCH ×2 (09:38→21:27)
--- NOTE | 2023-08-23 09:54 | P.PN ---
Subjective Progress Note Date: 08/22/23 patient is a 72-year-old male with a known history of COPD on home oxygen, chronic hypoxemic respiratory failure, chronic atrial fibrillation on anticoagulation with Eliquis, hypertension, hyperlipidemia, osteoarthritis, anxiety/depression currently everyday smoker/vapor was initially presented to ER at [facility] with complaints of worsening shortness of breath. Patient was transferred to [facility] due to acute exacerbation of COPD. Otherwise patient denies any complaints of chest pain. Patient was having cough but unable to bring up any sputum. Denies any worsening leg swelling. Denies any fever or chills. No headache or dizziness or lightheadedness. Patient was previously admitted to hospital with similar complaints. Chest x-ray showed correlate for mild volume overload. EKG showed atrial fibrillation with heart rate 89. Laboratory showed WBC 8.4 hemoglobin 11.7 and platelets 291 and RDW 17.5, sodium 135 potassium 3.9 chloride 94 bicarb is 30 BUN 18 and creatinine 0.61 blood sugar is 216, proBNP 1360 and total protein 6.2 and albumin 3.7. COVID-19, influenza A, B, RSV not detected. Patient is currently requiring oxygen at 3 L via nasal cannula. 08/19/2023 Patient is currently lying in the bed. Awake alert and oriented x 3. On 3 L by nasal cannula. Still complains of shortness of breath and exertional dyspnea and also bilateral wheezing and scattered rhonchi on examination. Also complains of cough and chest congestion and unable to bring up much sputum. Patient is being current on antibiotics, ceftriaxone. Continued on IV Solu- Medrol 60 mg every 6 hourly and also on Lasix 40 mg twice daily. Patient has been afebrile. A1c 6.1 and blood sugar is slightly elevated. Patient was started Levemir 15 units at bedtime and also continued on insulin sliding scale. 08/20/2023 Patient is sitting in the chair today. Breathing status is better. Wheezing is also much improved with scattered rhonchi. No complaints of chest pain. No nausea vomiting abdominal pain or diarrhea. Tolerating oral diet. Patient is being continued on IV Solu-Medrol, DuoNebs, also on home dose of Lasix 40 mg twice daily. Patient is also on antibiotics ceftriaxone and blood cultures preliminary is negative so far. Afebrile. Laboratory data showed WBC 11.5 hemoglobin 12.3 and platelets 335, sodium 134 potassium 3.5 chloride 86 bicarb is 33 BUN 36 and creatinine 0.9 and blood sugar is 288 08/21/2023 Patient is currently sitting in the chair. Awake alert and oriented x 3. Shortness of breath is better. Having expiratory wheezing and scattered rhonchi on exam. Currently requiring 3 L oxygen via nasal cannula. No complaints of chest pain. No headache or dizziness or lightheadedness. Patient is being continued on IV Solu-Medrol and antibiotics ceftriaxone. Currently on p.o. Lasix 40 mg twice daily. Lab data showed WBC 10.1 hemoglobin 12.2 and platelets 333 Sodium 138 potassium 3.7 chloride 89 bicarb is 36 BUN 35.9 and creatinine 0.9 and blood sugar is 189. Calcium 9.3. 08/22/2023 Patient is seen in follow-up today with pulmonary following maintained on IV steroids along with breathing treatments. Patient continues with wheezing although not more significant than his baseline. Forced expiratory wheezing noted on exam. Pulmonary following recommending monitoring overnight and follow-up chest x-ray. Patient also with significant weakness although appears to be at baseline and is being evaluated for possible ECF. [facility] has accepted pending authorization which is pending at this time. Plan will be to go home with home care if authorization is declined. Patient is currently afebrile with no reports of chest pain. Patient continues to report chest tightness with inspiration and exertion and reports to being told he has a mass possibly. Patient will require outpatient follow-up and further testing in the outpatient setting. Review of systems: Constitutional: No reports of fatigue, fever, or chills Cardiovascular: No reports of chest pain or palpitations Respiratory: reports of shortness of breath and wheezing GI: No reports of nausea, vomiting, or diarrhea : No reports of dysuria or retention Neurovascular: reports of generalized weakness All medications have been reviewed PHYSICAL EXAMINATION: Patient is sitting up in the chair comfortably, no acute distress, awake alert and oriented.. Well-developed, well-nourished, elderly-appearing, obese HEENT: Normocephalic. Neck is supple. Pupils reactive. Nostrils clear. Oral cavity is moist. Neck reveals no JVD, carotid bruits, or thyromegaly. CHEST EXAMINATION: Trachea is central. Symmetrical expansion. Bibasilar diminished sounds and exp wheezing that is forced on exam and scattered rhonchi.. CARDIAC: Normal S1, S2 with no gallops. Irregularly irregular rhythm. ABDOMEN: Soft. Obese. Bowel sounds present. Nontender. No organomegaly. No abdominal bruits. Extremities: Bilateral lower extremity trace edema. No clubbing or cyanosis Neurologically awake, alert, oriented x3 with well-coordinated movements. No focal deficits noted. Mild cognitive impairment. Skin: No rash or skin lesions. Psychiatric: Cooperative. Non-suicidal, Musculoskeletal: No joint swelling or deformity. Normal range of motion. Assessment: Acute on chronic hypoxemic respiratory failure secondary to COPD exacerbation and mild CHF exacerbation Acute exacerbation COPD Acute on chronic CHF with reduced ejection fraction 40 to 45% and moderate pulmonary hypertension Chronic atrial fibrillation on anticoagulation with Eliquis Hypertension Hyperlipidemia Diabetes type 2 [id number] Diabetic peripheral neuropathy Chronic ongoing active addiction Osteoarthritis GERD Anxiety/depression Generalized weakness DVT prophylaxis patient is already on Eliquis GI prophylaxis with Protonix Plan: Patient will be continued on IV Solu-Medrol 60 mg every 6 hourly and DuoNebs. pulmonary following recommending monitoring overnight as patient is significantly wheezing and follow-up chest x-ray. Continue with oxygen 3 L via nasal cannula which he wears chronically in the outpatient setting. Continue with home dose of Lasix 40 mg p.o. twice daily. Received a dose of IV Lasix 80 mg x 1 in the ER. Continue with Aldactone. Patient is being continued on metoprolol and Eliquis and other blood pressure medications. PT/OT therapy evaluated the patient for possible ECF. [facility] has accepted pending insurance authorization. Case management was discussed in regards to discharge planning and if authorization is declined patient will be going home with home care. Anticipate discharge in the next 24 to 48 hours. The impression and plan of care has been dictated by Ange Becerra Nurse Practitioner as directed. Dr. Jean Carlos MD I have performed a history and examination and MDM of this patient, discussed the same with the dictator, and agree with the dictator's assessment and plan as written ,documented as a scribe. Based on total visit time, I have performed more than 50% of the visit. Objective - Vital Signs Vital signs: Vital Signs Temp 97.5 F L 08/22/23 07:10 Pulse 88 08/22/23 09:48 Resp 18 08/22/23 07:10 BP 148/80 08/22/23 07:10 Pulse Ox 95 08/22/23 07:10 FiO2 Intake & Output 08/21/23 08/22/23 08/22/23 18:59 06:59 18:59 Intake Total 480 Output Total 2870 1800 Balance -2390 -1800 Weight 114.5 kg Intake: Oral 480 Output: Urine 2870 1800 Other: Voiding Method Urinal # Voids 1 - Labs CBC & Chem 7: 08/22/23 05:12 08/22/23 05:12 Labs: Abnormal Lab Results - Last 24 Hours (Table) 08/21/23 08/21/23 08/21/23 Range/Units 10:57 16:18 21:06 WBC (4.50-10.00) X 10*3/uL Hgb (13.0-17.0) g/dL RDW (11.5-14.5) % MPV (9.5-12.2) FL Immature Gran # (0.00-0.04) X 10*3/uL Neutrophils # (1.80-7.70) X 10*3/uL Lymphocytes # (0.90-5.00) X 10*3/uL Eosinophils # (0.04-0.35) X 10*3/uL NRBC/100 WBC Diff (0.00-0.01) X 10*3/uL Chloride (96-109) mmol/L Carbon Dioxide (21.6-31.8) mmol/L Anion Gap (4.00-12.00) mmol/L BUN (9.0-27.0) mg/dL BUN/Creatinine Ratio (12.00-20.00) Ratio Glucose (70-110) mg/dL POC Glucose (mg/dL) 169 H 302 H 193 H (70-110) mg/dL 08/22/23 08/22/23 08/22/23 Range/Units 05:12 05:12 06:17 WBC 10.73 H (4.50-10.00) X 10*3/uL Hgb 12.9 L (13.0-17.0) g/dL RDW 16.0 H (11.5-14.5) % MPV 9.4 L (9.5-12.2) FL Immature Gran # 0.17 H (0.00-0.04) X 10*3/uL Neutrophils # 9.79 H (1.80-7.70) X 10*3/uL Lymphocytes # 0.32 L (0.90-5.00) X 10*3/uL Eosinophils # 0 L (0.04-0.35) X 10*3/uL NRBC/100 WBC Diff 0.02 H (0.00-0.01) X 10*3/uL Chloride 84 L (96-109) mmol/L Carbon Dioxide 36.6 H (21.6-31.8) mmol/L Anion Gap 16.40 H (4.00-12.00) mmol/L BUN 39.0 H (9.0-27.0) mg/dL BUN/Creatinine Ratio 39.00 H (12.00-20.00) Ratio Glucose 242 H (70-110) mg/dL POC Glucose (mg/dL) 326 H (70-110) mg/dL
[2023-08-23 11:41] LABS: Glucose,Whole Blood 298 mg/dL (70-110)
--- NOTE | 2023-08-23 14:13 | P.PN ---
Subjective Progress Note Date: 08/23/23 I am seeing this patient in consultation today 08/18/2023 after he was transfered from [facility] for a combination of acute COPD and CHF exacerbation. Patient has a 72-year-old white male with past medical history significant for severe oxygen dependent COPD, normally maintained on 3 L/m nasal cannula, congestive heart failure, chronic atrial fibrillation, diabetes mellitus, hyperlipidemia, hypertension, obesity, GERD and is a ongoing chronic smoker. Patient was staying at [facility] rehab facility, he left AGAINST MEDICAL ADVICE approximately 2 weeks ago. He was worried about his home. Apparently, he did not have heat, and he is worried about his pipes freezing. Since leaving [facility], he's been progressively more short of breath. He states that he started smoking again. Also endorses a cough with minimal sputum production. Denies any fevers, chills, chest pain, hemoptysis. He does admit some bilateral lower extremity swelling. He denies missing any doses of his medications i ncluding his diuretics. Chest x-ray on arrival to our facility was mild pulmonary vascular congestion and small to trace bilateral pleural effusions. Patient has been started on Lasix twice a day. Urinal at bedside is full. Patient is currently sitting in bed, on 4 L/m nasal cannula, in no acute distress. Heart rhythm appears atrial fibrillation with controlled ventricular rate on the bedside monitor. He has known history of A. fib. Is anticoagulated on Eliquis. He still wheezing on auscultation. He has been started on a combination of DuoNeb's, Symbicort inhaler, and IV Solu-Medrol. Labs are pending. On today's evaluation, the patient continues to have increased dyspnea, chest co ngestion chest tightness and wheezing consistent with COPD exacerbation. Prominent since yesterday. The patient remains on bronchodilators and steroids. The patient is also covered with IV antibiotics. The patient is currently on Rocephin. Patient is also on Lasix 40 mg by mouth twice a day. Remains on bronchodilators. Remains on IV Solu-Medrol 60 mg every 6 hours. No new labs are available from today. Blood sugars are slightly elevated and the patient is receiving/skeletal insulin coverage. The patient is on 7 iron deficiency and hemoglobin is currently at 11.7. Serum iron is at 28. HbA1c is at 6.1. Patient is also on long-term and cognition without liquids 5 mg by mouth twice a day.he is currently on 3 L of oxygen by nasal cannula.Repeat echo cardiac exam shows a normal ejection fraction of 50-55%. The patient severe RV dilatation and mother did reveal pulmonary hypertension with a PA pressure 49. There is also mild aortic stenosis. On today's evaluation of 08/20/2023, the patient is doing well. No new complaints on today's evaluation. Remains on the same treatment of bronchodilators and steroids and the patient is also on IV Solu-Medrol. The shortness of breath compared to yesterday. Labs are unchanged. He has a 36 with a creatinine of 0.9 and sodium levels of 134. The white cell count 11.5 with a hemoglobin of 12.5. Patient is currently on 47 with a nasal cannula with a pulse ox of 98%. 08/21/2023, the patient is feeling better. Gradually improving in terms of COPD exacerbation. Remains on bronchodilators. Remains on steroids. Remains on IV Rocephin. Remains on diuretics. He is on a combination of Lasix and Zaroxolyn. The labs are stable. BUN is at 35 and a creatinine of 0.9. Sodium level is at 138. The white cell cause of 10.1 with a hemoglobin 12.2. The patient was seen today 08/22/2023 in follow-up on the regular medical floor. He is currently sitting up in a chair at the bedside. Awake and alert in no acute distress. Improving but not quite back to baseline. Still somewhat bronchospastic and wheezing. Blood cultures revealed no growth. White count 10.7. Hemoglobin 12.9. Sodium 137. Potassium 3.6. Bicarb 37. BUN 39. Creatinine 1.0. Glucose 242. He is continued on DuoNeb inhalations, theophylline, Symbicort, Solu-Medrol. Remains on diuretics. Anticoagulated with Eliquis. NicoDerm patches in place. The patient is seen today 08/23/2023 in follow-up on the regular medical floor. He is awake and alert in no acute distress. Sitting up in a chair. She denies any worsening shortness of breath, cough or congestion. Maintaining good O2 saturations in the 90s on 2 L/m per nasal cannula. He is afebrile. Hemodynamically stable. Still not quite back to his baseline. Still somewhat bronchospastic and wheezing. Chest x-ray shows COPD with improving interstitial density. Mild interstitial densities remain. Right greater than left. Blood cultures revealed no growth. Blood sugar 188. He remains on DuoNeb inhalations, theophylline, Symbicort, Solu-Medrol. Remains on diuretics. Anticoagulated with Eliquis. NicoDerm patch in place. Continues to diurese well. Objective - Vital Signs Vital signs: Vital Signs Temp 97.6 F 08/23/23 07:23 Pulse 92 08/23/23 12:53 Resp 18 08/23/23 08:55 BP 130/72 08/23/23 07:23 Pulse Ox 96 08/23/23 07:23 FiO2 Intake & Output 08/22/23 08/23/23 08/23/23 18:59 06:59 18:59 Output Total 3701 1300 600 Balance -3701 -1300 -600 Weight 114.5 kg Output: Urine 3700 1300 600 Stool 1 Other: # Voids 1 - Exam GENERAL EXAM: Alert, obese 72-year-old male, on 2 L nasal cannula, comfortable in no apparent distress. HEAD: Normocephalic and atraumatic EYES: Normal reaction of pupils, equal size. NOSE: Clear with pink turbinates. THROAT: No erythema or exudates. NECK: No masses, no JVD. CHEST: No chest wall deformity. LUNGS: Equal air entry with wheezing and scattered rhonchi heard throughout. No conversational dyspnea. CVS: S1 and S2 normal with no audible murmur, irregular rhythm. No extra heart sounds ABDOMEN: No hepatosplenomegaly, active bowel sounds, no guarding or rigidity. SPINE: No scoliosis or deformity SKIN: No rashes CENTRAL NERVOUS SYSTEM: No focal deficits, tone is normal in all 4 extremities. EXTREMITIES: There is 3+ bilateral pitting edema. No clubbing, or cyanosis. Peripheral pulses are intact. - Labs CBC & Chem 7: 08/22/23 05:12 08/22/23 05:12 Labs: Abnormal Lab Results - Last 24 Hours (Table) 08/22/23 08/22/23 08/23/23 Range/Units 16:22 20:30 05:35 POC Glucose (mg/dL) 319 H 247 H 188 H (70-110) mg/dL 08/23/23 Range/Units 11:40 POC Glucose (mg/dL) 298 H (70-110) mg/dL Microbiology - Last 24 Hours (Table) 08/17/23 17:40 Blood Culture - Final Blood 08/17/23 17:27 Blood Culture - Final Blood Assessment and Plan Assessment: Acute on chronic hypoxemic respiratory failure, likely multifactorial, secondary to a combination of COPD and systolic CHF exacerbation. Follow-up chest x-ray reveals cardiomegaly, mild pulmonary vascular congestion and small to trace bilateral pleural effusions. Acute exacerbation of severe oxygen dependent COPD Chronic and ongoing tobacco dependence CHF with ejection fraction of 40-45% moderate concentric LVH and moderate degree of pulmonary hypertension.repeat echo cardiac exam continues to show RV dilatation and moderate degree of pulmonary hypertension. Ejection fraction is improved and is currently up to 50-55%. Chronic atrial fibrillation, with controlled ventricular rate, normally anticoagulated on Eliquis, Essential hypertension Hyperlipidemia Diabetes mellitus type 2, complicated by diabetic neuropathy Morbid obesity with BMI of 31 kg/m Chronic pain Umbilical Hernia Plan: The patient was seen and evaluated Chest x-ray, medications and labs reviewed Continue the current treatment plan Again educated regarding the importance of complete smoking cessation NicoDerm patch remains in place Titrate the FiO2 as tolerated Plan for probable discharge in the a.m. We will continue to follow I have personally seen and examined the patient, performed the documentation and the assessment and plan as written. Number of minutes spent on the visit: 10.
--- NOTE | 2023-08-23 14:25 | P.PN ---
Subjective Progress Note Date: 08/23/23 patient is a 72-year-old male with a known history of COPD on home oxygen, chronic hypoxemic respiratory failure, chronic atrial fibrillation on anticoagulation with Eliquis, hypertension, hyperlipidemia, osteoarthritis, anxiety/depression currently everyday smoker/vapor was initially presented to ER at [facility] with complaints of worsening shortness of breath. Patient was transferred to [facility] due to acute exacerbation of COPD. Otherwise patient denies any complaints of chest pain. Patient was having cough but unable to bring up any sputum. Denies any worsening leg swelling. Denies any fever or chills. No headache or dizziness or lightheadedness. Patient was previously admitted to hospital with similar complaints. Chest x-ray showed correlate for mild volume overload. EKG showed atrial fibrillation with heart rate 89. Laboratory showed WBC 8.4 hemoglobin 11.7 and platelets 291 and RDW 17.5, sodium 135 potassium 3.9 chloride 94 bicarb is 30 BUN 18 and creatinine 0.61 blood sugar is 216, proBNP 1360 and total protein 6.2 and albumin 3.7. COVID-19, influenza A, B, RSV not detected. Patient is currently requiring oxygen at 3 L via nasal cannula. 08/19/2023 Patient is currently lying in the bed. Awake alert and oriented x 3. On 3 L by nasal cannula. Still complains of shortness of breath and exertional dyspnea and also bilateral wheezing and scattered rhonchi on examination. Also complains of cough and chest congestion and unable to bring up much sputum. Patient is being current on antibiotics, ceftriaxone. Continued on IV Solu- Medrol 60 mg every 6 hourly and also on Lasix 40 mg twice daily. Patient has been afebrile. A1c 6.1 and blood sugar is slightly elevated. Patient was started Levemir 15 units at bedtime and also continued on insulin sliding scale. 08/20/2023 Patient is sitting in the chair today. Breathing status is better. Wheezing is also much improved with scattered rhonchi. No complaints of chest pain. No nausea vomiting abdominal pain or diarrhea. Tolerating oral diet. Patient is being continued on IV Solu-Medrol, DuoNebs, also on home dose of Lasix 40 mg twice daily. Patient is also on antibiotics ceftriaxone and blood cultures preliminary is negative so far. Afebrile. Laboratory data showed WBC 11.5 hemoglobin 12.3 and platelets 335, sodium 134 potassium 3.5 chloride 86 bicarb is 33 BUN 36 and creatinine 0.9 and blood sugar is 288 08/21/2023 Patient is currently sitting in the chair. Awake alert and oriented x 3. Shortness of breath is better. Having expiratory wheezing and scattered rhonchi on exam. Currently requiring 3 L oxygen via nasal cannula. No complaints of chest pain. No headache or dizziness or lightheadedness. Patient is being continued on IV Solu-Medrol and antibiotics ceftriaxone. Currently on p.o. Lasix 40 mg twice daily. Lab data showed WBC 10.1 hemoglobin 12.2 and platelets 333 Sodium 138 potassium 3.7 chloride 89 bicarb is 36 BUN 35.9 and creatinine 0.9 and blood sugar is 189. Calcium 9.3. 08/22/2023 Patient is seen in follow-up today with pulmonary following maintained on IV steroids along with breathing treatments. Patient continues with wheezing although not more significant than his baseline. Forced expiratory wheezing noted on exam. Pulmonary following recommending monitoring overnight and follow-up chest x-ray. Patient also with significant weakness although appears to be at baseline and is being evaluated for possible ECF. [facility] has accepted pending authorization which is pending at this time. Plan will be to go home with home care if authorization is declined. Patient is currently afebrile with no reports of chest pain. Patient continues to report chest tightness with inspiration and exertion and reports to being told he has a mass possibly. Patient will require outpatient follow-up and further testing in the outpatient setting. 08/23/2023 Patient seen and evaluated in follow-up today being followed by pulmonary maintained on IV steroids along with breathing inhalational treatments. Home medications have been reviewed and resumed and patient continues to have significant wheezing reporting shortness of breath with exertion. Patient reports to feeling weak and was evaluated by physical therapy recommending rehab and insurance authorization has been obtained and patient will be going to [facility]. Follow-up chest x-ray shows COPD with improving interstitial densities with mild interstitial densities remain greater on the right. Patient is afebrile with no reported chest pains or palpitations. Patient has been instructed to increase activity as tolerated and elevate lower extremity swelling rest. Pulmonary recommending monitoring overnight with possible discharge planning to ECF in 24 hours. Patient has had frequent hospitalizations at multiple hospitals and is high risk for readmission given patient's significant comorbidities and noncompliance. Patient reports he quit smoking 2 weeks ago and this was likely secondary to being hospitalized at [facility] as well as here. Patient does have nicotine patch. Review of systems: Constitutional: No reports of fatigue, fever, or chills Cardiovascular: No reports of chest pain or palpitations Respiratory: reports of shortness of breath and wheezing GI: No reports of nausea, vomiting, or diarrhea : No reports of dysuria or retention Neurovascular: reports of generalized weakness All medications have been reviewed PHYSICAL EXAMINATION: Patient is sitting up in the chair comfortably, no acute distress, awake alert and oriented.. Well-developed, well-nourished, elderly-appearing, obese HEENT: Normocephalic. Neck is supple. Pupils reactive. Nostrils clear. Oral cavity is moist. Neck reveals no JVD, carotid bruits, or thyromegaly. CHEST EXAMINATION: Trachea is central. Symmetrical expansion. Bibasilar diminished sounds and exp wheezing that is forced on exam and scattered rhonchi.. CARDIAC: Normal S1, S2 with no gallops. Irregularly irregular rhythm. ABDOMEN: Soft. Obese. Bowel sounds present. Nontender. No organomegaly. No abdominal bruits. Extremities: Bilateral lower extremity trace edema. No clubbing or cyanosis Neurologically awake, alert, oriented x3 with well-coordinated movements. No focal deficits noted. Mild cognitive impairment. Skin: No rash or skin lesions. Psychiatric: Cooperative. Non-suicidal, Musculoskeletal: No joint swelling or deformity. Normal range of motion. Assessment: Acute on chronic hypoxemic respiratory failure secondary to COPD exacerbation and mild CHF exacerbation Acute exacerbation COPD Acute on chronic CHF with reduced ejection fraction 40 to 45% and moderate pulm onary hypertension Chronic atrial fibrillation on anticoagulation with Eliquis Hypertension Hyperlipidemia Diabetes type 2 [id number] Diabetic peripheral neuropathy Chronic ongoing active addiction Osteoarthritis GERD Anxiety/depression Generalized weakness DVT prophylaxis patient is already on Eliquis GI prophylaxis with Protonix Plan: Patient will be continued on IV Solu-Medrol 60 mg every 6 hourly and DuoNebs. pulmonary following recommending monitoring overnight mother 24 hours. Chest x-ray shows some improvement in interstitial densities and will continue on IV steroids along with DuoNeb's and inhalers. Patient chronically wears 3 L outpatient and will continue to do so Continue with home dose of Lasix 40 mg p.o. twice daily. other home medications reviewed and resumed as appropriate Patient is being continued on metoprolol and Eliquis and other blood pressure medications. PT/OT therapy evaluated the patient for possible ECF. [facility] accept[facility] insurance authorization has been obtained. Case management following with plans of possible discharge in 24 hours Will follow-up and discuss with pulmonary on discharge planning as they're recommending monitoring overnight for another 24 hours as patient feels significantly short of breath with exertion and is high risk for readmissions and has had multiple hospitalizations at many hospitals for chronic COPD with CHF. Anticipate discharge in the next 24 hours. The impression and plan of care has been dictated by Ange Becerra, Nurse Practitioner as directed. Dr. Jean Carlos MD I have performed a history and examination and MDM of this patient, discussed the same with the dictator, and agree with the dictator's assessment and plan as written ,documented as a scribe. Based on total visit time, I have performed more than 50% of the visit. Objective - Vital Signs Vital signs: Vital Signs Temp 97.6 F 08/23/23 07:23 Pulse 92 08/23/23 09:50 Resp 18 08/23/23 07:23 BP 130/72 08/23/23 07:23 Pulse Ox 96 08/23/23 07:23 FiO2 Intake & Output 08/22/23 08/23/23 08/23/23 18:59 06:59 18:59 Output Total 3701 1300 600 Balance -3701 -1300 -600 Weight 114.5 kg Output: Urine 3700 1300 600 Stool 1 Other: # Voids 1 - Labs CBC & Chem 7: 08/22/23 05:12 08/22/23 05:12 Labs: Abnormal Lab Results - Last 24 Hours (Table) 08/22/23 08/22/23 08/22/23 Range/Units 11:16 16:22 20:30 POC Glucose (mg/dL) 274 H 319 H 247 H (70-110) mg/dL 08/23/23 Range/Units 05:35 POC Glucose (mg/dL) 188 H (70-110) mg/dL Microbiology - Last 24 Hours (Table) 08/17/23 17:40 Blood Culture - Final Blood 08/17/23 17:27 Blood Culture - Final Blood
[2023-08-23 16:53] LABS: Glucose,Whole Blood 180 mg/dL (70-110)
[2023-08-23 20:29] LABS: Glucose,Whole Blood 181 mg/dL (70-110)
[2023-08-23] MEDS: MELATONIN 3 MG TABLET PO SCH (20:35)
[2023-08-23] MEDS: ATORVASTATIN 40 MG TAB PO SCH (20:35)
[2023-08-23] MEDS: diazePAM 5 MG TAB PO PRN (20:36)
[2023-08-23] MEDS ORDERED: INSULIN DETEMIR (LEVEMIR) 100 UNIT/ML SYR SQ SCH (21:00)
[2023-08-24] MEDS: HYDROcodone/APAP 10-325MG 1 EACH TAB PO PRN ×2 (03:41→09:02)
[2023-08-24 05:55] LABS: Glucose,Whole Blood 249 mg/dL (70-110)
[2023-08-24] MEDS: INSULIN ASPART (NovoLOG) 100 UNIT/ML VIAL SQ SCH ×4 (06:12→12:30)
[2023-08-24] MEDS: methylPREDNISolone SOD SUCCI 125 MG/2 ML VIAL IV SCH ×2 (06:12→12:30)
[2023-08-24] MEDS: IPRATROPIUM-ALBUTEROL 3 ML NEB INHALATION PRN (06:22)
[2023-08-24] MEDS: NICOTINE 21MG/24HR PATCH TRANSDERM SCH (08:51)
[2023-08-24] MEDS: LIDOCAINE 4% PATCH TOPICAL SCH (08:51)
[2023-08-24] MEDS: guaiFENesin 600 MG TABLET.ER PO SCH (08:54)
[2023-08-24] MEDS: FUROSEMIDE 40 MG TAB PO SCH (08:54)
[2023-08-24] MEDS: ESCITALOPRAM 5 MG TAB PO SCH (08:54)
[2023-08-24] MEDS: TAMSULOSIN 0.4 MG CAP.ER.24H PO SCH (08:54)
[2023-08-24] MEDS: SPIRONOLACTONE 25 MG TAB PO SCH (08:54)
[2023-08-24] MEDS: APIXABAN 5 MG TAB PO SCH (08:54)
[2023-08-24] MEDS: DAPAGLIFLOZIN PROPANEDIOL 10 MG TABLET PO SCH (08:54)
[2023-08-24] MEDS: hydrALAZINE HCL 25 MG TAB PO SCH (08:54)
[2023-08-24] MEDS: metOLazone 2.5 MG TAB PO SCH (08:54)
[2023-08-24] MEDS: PREGABALIN 75 MG CAP PO SCH (08:54)
[2023-08-24] MEDS: PANTOPRAZOLE 40 MG TABLET PO SCH (08:54)
[2023-08-24] MEDS: POTASSIUM CHLORIDE ER 20 MEQ TAB.ER PO SCH (08:54)
[2023-08-24] MEDS: THEOPHYLLINE 24 HOUR 400 MG CAP.ER.24H PO SCH (08:54)
[2023-08-24] MEDS: DULoxetine HCL 30 MG CAPSULE.DR PO SCH (08:54)
[2023-08-24] MEDS: METOPROLOL TARTRATE 50 MG TAB PO SCH (08:54)
[2023-08-24 08:55] VITALS: BP 162/80; RESP 16; TEMP 97.7
[2023-08-24] MEDS: SYMBICORT 160-4.5 MCG INHALER INHALATION SCH (09:04)
[2023-08-24] MEDS: IPRATROPIUM-ALBUTEROL 3 ML NEB INHALATION SCH ×3 (09:04→15:52)
[2023-08-24] MEDS ORDERED: FUROSEMIDE 10 MG/ML 4 ML VIAL IV STA (10:58)
[2023-08-24 11:14] LABS: Glucose,Whole Blood 230 mg/dL (70-110)
--- NOTE | 2023-08-24 11:51 | P.PN ---
Subjective Progress Note Date: 08/24/23 I am seeing this patient in consultation today 08/18/2023 after he was transfered from [facility] for a combination of acute COPD and CHF exacerbation. Patient has a 72-year-old white male with past medical history significant for severe oxygen dependent COPD, normally maintained on 3 L/m nasal cannula, congestive heart failure, chronic atrial fibrillation, diabetes mellitus, hyperlipidemia, hypertension, obesity, GERD and is a ongoing chronic smoker. Patient was staying at [facility] rehab facility, he left AGAINST MEDICAL ADVICE approximately 2 weeks ago. He was worried about his home. Apparently, he did not have heat, and he is worried about his pipes freezing. Since leaving [facility], he's been progressively more short of breath. He states that he started smoking again. Also endorses a cough with minimal sputum production. Denies any fevers, chills, chest pain, hemoptysis. He does admit some bilateral lower extremity swelling. He denies missing any doses of his medications i ncluding his diuretics. Chest x-ray on arrival to our facility was mild pulmonary vascular congestion and small to trace bilateral pleural effusions. Patient has been started on Lasix twice a day. Urinal at bedside is full. Patient is currently sitting in bed, on 4 L/m nasal cannula, in no acute distress. Heart rhythm appears atrial fibrillation with controlled ventricular rate on the bedside monitor. He has known history of A. fib. Is anticoagulated on Eliquis. He still wheezing on auscultation. He has been started on a combination of DuoNeb's, Symbicort inhaler, and IV Solu-Medrol. Labs are pending. On today's evaluation, the patient continues to have increased dyspnea, chest co ngestion chest tightness and wheezing consistent with COPD exacerbation. Prominent since yesterday. The patient remains on bronchodilators and steroids. The patient is also covered with IV antibiotics. The patient is currently on Rocephin. Patient is also on Lasix 40 mg by mouth twice a day. Remains on bronchodilators. Remains on IV Solu-Medrol 60 mg every 6 hours. No new labs are available from today. Blood sugars are slightly elevated and the patient is receiving/skeletal insulin coverage. The patient is on 7 iron deficiency and hemoglobin is currently at 11.7. Serum iron is at 28. HbA1c is at 6.1. Patient is also on long-term and cognition without liquids 5 mg by mouth twice a day.he is currently on 3 L of oxygen by nasal cannula.Repeat echo cardiac exam shows a normal ejection fraction of 50-55%. The patient severe RV dilatation and mother did reveal pulmonary hypertension with a PA pressure 49. There is also mild aortic stenosis. On today's evaluation of 08/20/2023, the patient is doing well. No new complaints on today's evaluation. Remains on the same treatment of bronchodilators and steroids and the patient is also on IV Solu-Medrol. The shortness of breath compared to yesterday. Labs are unchanged. He has a 36 with a creatinine of 0.9 and sodium levels of 134. The white cell count 11.5 with a hemoglobin of 12.5. Patient is currently on 47 with a nasal cannula with a pulse ox of 98%. 08/21/2023, the patient is feeling better. Gradually improving in terms of COPD exacerbation. Remains on bronchodilators. Remains on steroids. Remains on IV Rocephin. Remains on diuretics. He is on a combination of Lasix and Zaroxolyn. The labs are stable. BUN is at 35 and a creatinine of 0.9. Sodium level is at 138. The white cell cause of 10.1 with a hemoglobin 12.2. The patient was seen today 08/22/2023 in follow-up on the regular medical floor. He is currently sitting up in a chair at the bedside. Awake and alert in no acute distress. Improving but not quite back to baseline. Still somewhat bronchospastic and wheezing. Blood cultures revealed no growth. White count 10.7. Hemoglobin 12.9. Sodium 137. Potassium 3.6. Bicarb 37. BUN 39. Creatinine 1.0. Glucose 242. He is continued on DuoNeb inhalations, theophylline, Symbicort, Solu-Medrol. Remains on diuretics. Anticoagulated with Eliquis. NicoDerm patches in place. The patient is seen today 08/23/2023 in follow-up on the regular medical floor. He is awake and alert in no acute distress. Sitting up in a chair. She denies any worsening shortness of breath, cough or congestion. Maintaining good O2 saturations in the 90s on 2 L/m per nasal cannula. He is afebrile. Hemodynamically stable. Still not quite back to his baseline. Still somewhat bronchospastic and wheezing. Chest x-ray shows COPD with improving interstitial density. Mild interstitial densities remain. Right greater than left. Blood cultures revealed no growth. Blood sugar 188. He remains on DuoNeb inhalations, theophylline, Symbicort, Solu-Medrol. Remains on diuretics. Anticoagulated with Eliquis. NicoDerm patch in place. Continues to diurese well. The patient is seen today 08/24/2023 in follow-up on the regular medical floor. He is currently sitting up in a chair at the bedside. Awake and alert in no acute distress. Feeling nearly back to his baseline. We'll short of breath. Continues with a use productive cough. No fever or chills. Maintaining good O2 saturations up to 99% on 3 L/m per nasal cannula. Blood cultures revealed no growth. Hemoglobin A1c 6.3. Glucose 134. He remains on oral diuretics. Remains in a negative balance. He remains on DuoNeb inhalations, theophylline, Symbicort, Solu-Medrol. Remains on diuretics. Continued on antibiotics in the form of ceftriaxone. Anticoagulated with Eliquis. NicoDerm patch in place. Objective - Vital Signs Vital signs: Vital Signs Temp 97.7 F 08/24/23 07:25 Pulse 88 08/24/23 09:18 Resp 16 08/24/23 09:04 BP 162/80 08/24/23 07:25 Pulse Ox 99 08/24/23 07:25 FiO2 Intake & Output 08/23/23 08/24/23 08/24/23 18:59 06:59 18:59 Output Total 600 401 Balance -600 -401 Weight 114.4 kg Output: Urine 600 400 Stool 1 Other: Voiding Method Urinal # Voids 1 - Exam GENERAL EXAM: Alert, 72-year-old male, sitting up in a chair, on 3 L nasal cannula, comfortable in no apparent distress. HEAD: Normocephalic and atraumatic EYES: Normal reaction of pupils, equal size. NOSE: Clear with pink turbinates. THROAT: No erythema or exudates. NECK: No masses, no JVD. CHEST: No chest wall deformity. LUNGS: Equal air entry with wheezing and scattered rhonchi heard throughout. No conversational dyspnea. CVS: S1 and S2 normal with no audible murmur, irregular rhythm. No extra heart sounds ABDOMEN: No hepatosplenomegaly, active bowel sounds, no guarding or rigidity. SPINE: No scoliosis or deformity SKIN: No rashes CENTRAL NERVOUS SYSTEM: No focal deficits, tone is normal in all 4 extremities. EXTREMITIES: There is 3+ bilateral pitting edema. No clubbing, or cyanosis. Peripheral pulses are intact. - Labs CBC & Chem 7: 08/22/23 05:12 08/22/23 05:12 Labs: Abnormal Lab Results - Last 24 Hours (Table) 08/23/23 08/23/23 08/23/23 Range/Units 11:40 16:51 20:28 POC Glucose (mg/dL) 298 H 180 H 181 H (70-110) mg/dL Hemoglobin A1c (<=6.0) % 08/24/23 08/24/23 08/24/23 Range/Units 05:26 05:54 11:12 POC Glucose (mg/dL) 249 H 230 H (70-110) mg/dL Hemoglobin A1c 6.3 H (<=6.0) % Assessment and Plan Assessment: Acute on chronic hypoxemic respiratory failure, likely multifactorial, secondary to a combination of COPD and systolic CHF exacerbation. Follow-up chest x-ray reveals cardiomegaly, mild pulmonary vascular congestion and small to trace bilateral pleural effusions. He remains on diuretics, continues to diurese well Acute exacerbation of severe oxygen dependent COPD Chronic and ongoing tobacco dependence CHF with ejection fraction of 40-45% moderate concentric LVH and moderate degree of pulmonary hypertension.repeat echo cardiac exam continues to show RV dila tation and moderate degree of pulmonary hypertension. Ejection fraction is improved and is currently up to 50-55%. Chronic atrial fibrillation, with controlled ventricular rate, anticoagulated on Eliquis, Essential hypertension Hyperlipidemia Diabetes mellitus type 2, complicated by diabetic neuropathy Morbid obesity with BMI of 31 kg/m Chronic pain Umbilical Hernia Plan: The patient was seen and evaluated Medications and labs reviewed Completed a course of antibiotics Continue bronchodilators, steroids Continue oral diuretics, additional Lasix 40 mg IVP 1 today Educated regarding the importance of medication compliance Educated regarding the importance of complete smoking cessation Plan will be subacute rehab at discharge This patient was seen independently by the nurse practitioner who performed the medical decision-making I have personally seen and examined the patient, performed the documentation and the assessment and plan as written. Number of minutes spent on the visit: 22.
[2023-08-24 12:48] VITALS: PULSE 84
--- NOTE | 2023-08-24 13:37 | P.DS ---
Providers Date of admission: 08/17/23 19:59 Expected date of discharge: 08/24/23 Attending physician: Gisela Munoz Consults: 08/18/23 04:42 Consult Physician Urgent Consulting Provider: Tang Jones Consult Reason/Comments: copd Do you want consulting provider notified?: Yes Primary care physician: [facility] Course: Final diagnosis Acute on chronic hypoxemic respiratory failure secondary to COPD exacerbation and mild CHF exacerbation Acute exacerbation COPD Acute on chronic CHF with reduced ejection fraction 40 to 45% and moderate pulmonary hypertension Chronic atrial fibrillation on anticoagulation with Eliquis Hypertension Hyperlipidemia Diabetes type 2 [id number] Diabetic peripheral neuropathy Chronic ongoing nicotine abuse Osteoarthritis GERD Anxiety/depression Generalized weakness DVT prophylaxis patient is already on Eliquis GI prophylaxis with Protonix Discharge disposition Patient is being discharged in a stable condition with guarded prognosis to [facility]. Patient will follow-up with Dr. Jackson in the outpatient setting upon discharge. Patient is to continue with prednisone taper along with breathing treatments including DuoNeb every 6 hours and as needed and close outpatient follow-up with cardiology as well as pulmonary as scheduled. Total time taken is greater than 35 minutes. Hospital course This is a 72-year-old male who was recently admitted with increasing shortness of breath with COPD exacerbation as well as mild CHF exacerbation and was sent here from [facility]. Patient has extensive history of COPD/CHF and extremely noncompliant with medications and has frequent rehospitalizations for this and continues to smoke. Patient reports quit smoking 2 weeks ago. Patient made mention of some physician telling him there was a mass in the lungs although unsure where and patient will follow up with pulmonary outpatient for further testing. Patient continues to report extreme difficulty with managing ADLs and weakness given patient's significant comorbidities and is seen and evaluated by physical therapy recommending rehab and patient has received insurance authorization. Patient accepted at [facility] and will be going today. Please refer to pulmonary notes for further HPI. Patient's Accu-Cheks being monitored as patient was on IV steroids during hospitalization and recommend continue with Accu-Cheks before meals and at bedtime and sliding scale and home medications have been resumed. Patient will continue prednisone taper as well. Currently no reports of chest pain, shortness of breath, or palpitations. Patient is afebrile. No reports of nausea or vomiting and patient is tolerating diet. Patient will be going to [facility] [place] today. Guarded prognosis and high risk for readmissions given patient's noncompliance, continued tobacco use, and significant comorbidities. Patient has had multiple hospitalizations here at [facility] as well as [facility]. Physical exam: Gen: This is a 72-year-old male who is awake, alert and oriented 3, well- developed, well-nourished, obese HEENT: Head is atraumatic, normocephalic. Pupils equal, round. Sclerae is anicteric. NECK: Supple. No JVD. No lymphadenopathy. No thyromegaly. LUNGS: Diminished breath sounds bilaterally with some forced expiratory wheezes and coarse scattered rhonchi. No intercostal retractions. HEART: Regular rate and rhythm. No murmur. ABDOMEN: Soft. Obese. Bowel sounds are present. No masses. No tenderness. EXTREMITIES: Mild pedal edema. Nonpitting. No calf tenderness. NEUROLOGICAL: Patient is awake, alert and oriented x3. Cranial nerves 2 through 12 are grossly intact. Diffusely weak Please refer to medication reconciliation sheet for a list of medications. The impression and plan of care has been dictated by Ange Becerra, Nurse Practitioner as directed. Dr. Jean Carlos MD I have performed a history and examination and MDM of this patient, discussed the same with the dictator, and agree with the dictator's assessment and plan as written ,documented as a scribe. Based on total visit time, I have performed more than 50% of the visit. Patient Condition at Discharge: Fair Plan - Discharge Summary Discharge Rx Participant: Yes New Discharge Prescriptions: New Budesonide-Formot 160-4.5 Mcg [Symbicort 160-4.5 Mcg Inhaler] 2 puff INHALATION RT-BID 30 Days #1 each predniSONE 10 mg PO DIRECTED #30 tab Ipratropium-Albuterol Nebulize [Duoneb 0.5 mg-3 mg/3 ml Soln] 3 ml INHALATION RT-QID each Ipratropium-Albuterol Nebulize [Duoneb 0.5 mg-3 mg/3 ml Soln] 3 ml INHALATION RT-Q2H PRN each PRN Reason: Shortness Of Breath Or Wheezing Fluticasone Nasal [place] [Flonase Nasal [place]] 2 spray EA NOSTRIL DAILY PRN #7 ml PRN Reason: Allergy Symptoms Nicotine 21Mg/24Hr Patch [Habitrol] 1 patch TRANSDERM DAILY patch Lidocaine 4% Patch 1 patch TOPICAL DAILY #30 patch guaiFENesin [Mucinex] 1,200 mg PO DAILY #20 tab Insulin Detemir (Levemir) [Levemir] 20 unit SQ HS each INSULIN ASPART (NovoLOG) [NovoLOG (formulary)] 0 unit SQ ACHS each Continue Apixaban [Eliquis] 5 mg PO BID #60 tab Escitalopram [Lexapro] 5 mg PO DAILY metFORMIN HCL [Glucophage] 500 mg PO BID tab Spironolactone [Aldactone] 25 mg PO DAILY #30 tab DULoxetine HCL [Cymbalta] 30 mg PO DAILY Dapagliflozin Propanediol [Farxiga] 10 mg PO DAILY #30 tablet metOLazone [Zaroxolyn] 2.5 mg PO DAILY Pantoprazole [Protonix] 40 mg PO DAILY Tamsulosin [Flomax] 0.4 mg PO DAILY Theophylline Anhydrous [Theophylline ER] 400 mg PO DAILY Metoprolol Tartrate [Lopressor] 50 mg PO BID tab Atorvastatin Calcium [Lipitor] 40 mg PO HS hydrALAZINE HCL [Apresoline] 25 mg PO DAILY Potassium Chloride ER [K-Dur 10] 20 meq PO DAILY Furosemide [Lasix] 40 mg PO BID #60 tab HYDROcodone/APAP 10-325MG [[place] 10-325] 1 tab PO Q4H PRN PRN Reason: Pain Pregabalin [Lyrica] 75 mg PO DAILY diazePAM [Valium] 5 mg PO DAILY PRN PRN Reason: Anxiety Discharge Medication List Apixaban [Eliquis] 5 mg PO BID #60 tab 07/08/20 [Rx] Tamsulosin [Flomax] 0.4 mg PO DAILY 12/07/21 [History] Theophylline Anhydrous [Theophylline ER] 400 mg PO DAILY 02/18/22 [History] Escitalopram [Lexapro] 5 mg PO DAILY 08/29/22 [History] Metoprolol Tartrate [Lopressor] 50 mg PO BID tab 09/07/22 [Rx] metFORMIN HCL [Glucophage] 500 mg PO BID tab 09/07/22 [Rx] Spironolactone [Aldactone] 25 mg PO DAILY #30 tab 11/29/22 [Rx] Atorvastatin Calcium [Lipitor] 40 mg PO HS 12/31/22 [History] DULoxetine HCL [Cymbalta] 30 mg PO DAILY 12/31/22 [History] Dapagliflozin Propanediol [Farxiga] 10 mg PO DAILY #30 tablet 01/21/23 [Rx] Potassium Chloride ER [K-Dur 10] 20 meq PO DAILY 04/25/23 [History] hydrALAZINE HCL [Apresoline] 25 mg PO DAILY 04/25/23 [History] Furosemide [Lasix] 40 mg PO BID #60 tab 04/29/23 [Rx] HYDROcodone/APAP 10-325MG [[place] 10-325] 1 tab PO Q4H PRN 06/09/23 [History] Pantoprazole [Protonix] 40 mg PO DAILY 08/17/23 [History] Pregabalin [Lyrica] 75 mg PO DAILY 08/17/23 [History] diazePAM [Valium] 5 mg PO DAILY PRN 08/17/23 [History] metOLazone [Zaroxolyn] 2.5 mg PO DAILY 08/17/23 [History] Budesonide-Formot 160-4.5 Mcg [Symbicort 160-4.5 Mcg Inhaler] 2 puff INHALATION RT-BID 30 Days #1 each 08/22/23 [Rx] Fluticasone Nasal [place] [Flonase Nasal [place]] 2 spray EA NOSTRIL DAILY PRN #7 ml 08/22/23 [Rx] Ipratropium-Albuterol Nebulize [Duoneb 0.5 mg-3 mg/3 ml Soln] 3 ml INHALATION RT-Q2H PRN each 08/22/23 [Rx] Ipratropium-Albuterol Nebulize [Duoneb 0.5 mg-3 mg/3 ml Soln] 3 ml INHALATION RT-QID each 08/22/23 [Rx] Lidocaine 4% Patch 1 patch TOPICAL DAILY #30 patch 08/22/23 [Rx] Nicotine 21Mg/24Hr Patch [Habitrol] 1 patch TRANSDERM DAILY patch 08/22/23 [Rx] guaiFENesin [Mucinex] 1,200 mg PO DAILY #20 tab 08/22/23 [Rx] INSULIN ASPART (NovoLOG) [NovoLOG (formulary)] 0 unit SQ ACHS each 08/24/23 [Rx] Insulin Detemir (Levemir) [Levemir] 20 unit SQ HS each 08/24/23 [Rx] predniSONE 10 mg PO DIRECTED #30 tab 08/24/23 [Rx] Follow up Appointment(s)/Referral(s): [facility], [NON-STAFF] - As Needed Elver Jackson MD [Primary Care Provider] - 1-2 days Tang Jones MD [STAFF PHYSICIAN] - 1 Week Activity/Diet/Wound Care/Special Instructions: Activity as tolerated. Patient is going to [facility] Continue medications as prescribed Continue monitoring Accu-Cheks before meals and at bedtime NovoLog sliding scale 0-150 equals 0 units 151-200 equals 2 units 201-250 equals 4 units 251-300 equals 6 units 301-350 equals 8 units 351-400 equals 10 units Please notify provider if blood sugar is 400 or above Follow-up pulmonary outpatient Follow-up cardiology outpatient Avoid tobacco use and exposure Discharge Disposition: TRANSFER TO SNF/ECF
== END 2023-08-24 16:07 | DRG 291 ==
LOC: EC 16:32 → 4SSUR 19:59
PROVIDERS: ADMIT Hospitalist; ATTEND Hospitalist
DX: I11.0 Hypertensive heart disease with heart failure (principal); I50.23 Acute on chronic systolic (congestive) heart failure; J96.21 Acute and chronic respiratory failure with hypoxia; J44.1 Chronic obstructive pulmonary disease with (acute) exacerbation; I48.20 Chronic atrial fibrillation, unspecified; E11.42 Type 2 diabetes mellitus with diabetic polyneuropathy; E66.01 Morbid (severe) obesity due to excess calories; T50.906A Underdosing of unspecified drugs, medicaments and biological substances, initial encounter; Z91.128 Patient's intentional underdosing of medication regimen for other reason; Z91.199 Patient's noncompliance with other medical treatment and regimen due to unspecified reason; E61.1 Iron deficiency; Z68.34 Body mass index [BMI] 34.0-34.9, adult; E78.5 Hyperlipidemia, unspecified; F32.A Depression, unspecified; F41.9 Anxiety disorder, unspecified; G89.29 Other chronic pain; I27.20 Pulmonary hypertension, unspecified; I35.0 Nonrheumatic aortic (valve) stenosis; K21.9 Gastro-esophageal reflux disease without esophagitis; K42.9 Umbilical hernia without obstruction or gangrene; M19.90 Unspecified osteoarthritis, unspecified site; F17.290 Nicotine dependence, other tobacco product, uncomplicated; Z71.6 Tobacco abuse counseling; Z99.81 Dependence on supplemental oxygen; Z79.01 Long term (current) use of anticoagulants; Z79.84 Long term (current) use of oral hypoglycemic drugs; Z79.51 Long term (current) use of inhaled steroids; Z79.899 Other long term (current) drug therapy; Z88.1 Allergy status to other antibiotic agents; Z88.0 Allergy status to penicillin; Z88.8 Allergy status to other drugs, medicaments and biological substances; Z82.49 Family history of ischemic heart disease and other diseases of the circulatory system; Z82.5 Family history of asthma and other chronic lower respiratory diseases
CPT/HCPCS: 71045; 71046; 80048; 80053; 83036; 83540; 83550; 83880; 84484; 85025; 87040; 87636; 93005; 93306; 94640; 94760; 96365; 96375; 96376; 99285

== ENCOUNTER 2023-08-28 17:47 | Inpatient (IN) | payer MEDICARE, OTHER ==
[2023-08-28] MEDS ORDERED: SODIUM CHLORIDE 0.9% 1,000 ML IV STA ×2 (17:54→19:43)
[2023-08-28 18:14] LABS: Anisocytosis Slight; Basophils # (A) 0.1 k/uL (0-0.2); Basophils % (A) 1 %; Eosinophils # (A) 0.2 k/uL (0-0.7); Eosinophils % (A) 1 %; HCT 38.8 % (39.0-53.0); HGB 12.8 gm/dL (13.0-17.5); Lymphocytes # (A) 2.3 k/uL (1.0-4.8); Lymphocytes % (A) 10 %; MCH 28.8 pg (25.0-35.0); MCHC 32.9 g/dL (31.0-37.0); MCV 87.3 fL (80.0-100.0); Mean Platelet Volume 8.2; Monocytes # (A) 1.5 k/uL (0-1.0); Monocytes % (A) 7 %; Neutrophils # (A) 18.2 k/uL (1.3-7.7); Neutrophils % (A) 81 %; Platelet Count 302 k/uL (150-450); RBC 4.44 m/uL (4.30-5.90); RDW 16.7 % (11.5-15.5); WBC 22.5 k/uL (3.8-10.6)
--- NOTE | 2023-08-28 18:15 | ED ---
Weakness HPI - General Stated complaint: SOB Time Seen by Provider: 08/28/23 17:49 Source: EMS, RN notes reviewed, old records reviewed Mode of arrival: EMS Limitations: altered mental status - History of Present Illness Initial comments: This is a 72-year-old male to the emergency department today for evaluation of significant weakness, headache, ears ringing, patient called EMS from [facility] to be evaluated in the emergency room. Patient is well-known to our facility for breathing issues and breathing complaints including shortness of breath cough and congestion. Patient's been without fever, significantly confused and evaluation. No travel history or sick contacts MD Complaint: generalized weakness, focal weakness -: days(s) Location: generalized Severity: moderate Severity scale (1-10): 7 Quality: sharp Consistency: constant Improves with: none Worsens with: none Context: recent illness, history of similar Associated Symptoms: denies other symptoms - Related Data Home Medications Medication Instructions Recorded Confirmed Tamsulosin [Flomax] 0.4 mg PO HS 12/07/21 09/02/23 Theophylline Anhydrous 400 mg PO DAILY@0600 02/18/22 09/02/23 [Theophylline ER] Escitalopram [Lexapro] 5 mg PO HS 08/29/22 09/02/23 Atorvastatin Calcium [Lipitor] 40 mg PO HS 12/31/22 09/02/23 DULoxetine HCL [Cymbalta] 30 mg PO HS 12/31/22 09/02/23 Dapagliflozin Propanediol [Farxiga] 10 mg PO DAILY@0600 08/28/23 09/02/23 Furosemide [Lasix] 40 mg PO BID@0600,1400 08/28/23 09/02/23 Insulin Glargine-Yfgn [Semglee 20 units SQ HS 08/28/23 09/02/23 (Yfgn) Pen] Insulin Lispro See Protocol SQ ACHS 08/28/23 09/02/23 Nicotine 21Mg/24Hr Patch [Habitrol] 1 patch TRANSDERM HS 08/28/23 09/02/23 Potassium Chloride ER [K-Dur 20] 20 meq PO DAILY 08/28/23 09/02/23 Pregabalin [Lyrica] 75 mg PO HS 08/28/23 09/02/23 Spironolactone [Aldactone] 25 mg PO DAILY@0600 08/28/23 09/02/23 guaiFENesin [Mucinex] 1,200 mg PO HS 08/28/23 09/02/23 Previous Rx's Medication Instructions Recorded Apixaban [Eliquis] 5 mg PO BID #60 tab 07/08/20 Metoprolol Tartrate [Lopressor] 50 mg PO BID tab 09/07/22 metFORMIN HCL [Glucophage] 500 mg PO BID tab 09/07/22 Budesonide-Formot 160-4.5 Mcg 2 puff INHALATION RT-BID 30 Days 08/22/23 [Symbicort 160-4.5 Mcg Inhaler] #1 each Fluticasone Nasal Republic [Flonase 2 spray EA NOSTRIL DAILY PRN #7 ml 08/22/23 Nasal Republic] Ipratropium-Albuterol Nebulize 3 ml INHALATION RT-Q2H PRN each 08/22/23 [Duoneb 0.5 mg-3 mg/3 ml Soln] Ipratropium-Albuterol Nebulize 3 ml INHALATION RT-QID each 08/22/23 [Duoneb 0.5 mg-3 mg/3 ml Soln] Lidocaine 4% Patch 1 patch TOPICAL DAILY #30 patch 08/22/23 HYDROcodone/APAP 10-325MG [Christoval 1 tab PO Q4H PRN #4 tab 08/24/23 10-325] diazePAM [Valium] 5 mg PO DAILY PRN #1 tab 08/24/23 predniSONE See Taper PO DIRECTED #30 tab 08/31/23 Allergies Allergy/AdvReac Type Severity Reaction Status Date / Time ANJU Inhibitors Allergy Unknown - Verified 09/02/23 14:53 per [facility] doxycycline Allergy Anaphylaxis Verified 09/02/23 14:53 Penicillins Allergy Anaphylaxis, Verified 09/02/23 14:53 Seizure Review of Systems ROS Statement: Those systems with pertinent positive or pertinent negative responses have been documented in the HPI. ROS Other: All systems not noted in ROS Statement are negative. Past Medical History Past Medical History: Atrial Fibrillation, Asthma, COPD, Diabetes Mellitus, GERD/Reflux, Hyperlipidemia, Hypertension, Osteoarthritis (OA), Pneumonia Additional Past Medical History / Comment(s): Afib RVR, home oxygen prn, bronchitis, pt states he is on metformin to prevent becoming diabetic, neuropa thy bilateral feet/L hand, chronic pain back,/bilateral hips/knees/elbows and shoulders, L heel pain, FALLS, cataracts. 11/23/22 ex-spouse phylicia Waterman reports history is accurate to her knowledge. current adominal hernia noted History of Any Multi-Drug Resistant Organisms: None Reported Past Surgical History: Appendectomy Additional Past Surgical History / Comment(s): Colonoscopy Past Anesthesia/Blood Transfusion Reactions: No Reported Reaction Past Psychological History: Unable to Obtain, Anxiety, Depression Smoking Status: Current every day smoker, Vaper Past Alcohol Use History: None Reported Past Drug Use History: None Reported - Past Family History Father Family Medical History: Congestive Heart Failure (CHF), COPD Additional Family Medical History / Comment(s): Father was an alcoholic but was able to quit drinking Mother Family Medical History: Congestive Heart Failure (CHF), COPD Additional Family Medical History / Comment(s): Mother was an alcoholic. Daughter(s) Additional Family Medical History / Comment(s): Liver cancer General Exam Limitations: altered mental status General appearance: alert, in no apparent distress, appears intoxicated, a nxious, in distress Head exam: Present: atraumatic, normocephalic, normal inspection Eye exam: Present: normal appearance, PERRL, EOMI. Absent: scleral icterus, conjunctival injection, periorbital swelling ENT exam: Present: normal exam, mucous membranes moist Neck exam: Present: normal inspection. Absent: tenderness, meningismus, lymphadenopathy Respiratory exam: Present: respiratory distress, wheezes, accessory muscle use, decreased breath sounds, prolonged expiratory. Absent: rales, rhonchi, stridor Cardiovascular Exam: Present: regular rate, normal rhythm, normal heart sounds. Absent: systolic murmur, diastolic murmur, rubs, gallop, clicks GI/Abdominal exam: Present: soft, normal bowel sounds. Absent: distended, tenderness, guarding, rebound, rigid Extremities exam: Present: normal inspection, full ROM, normal capillary refill. Absent: tenderness, pedal edema, joint swelling, calf tenderness Back exam: Present: normal inspection Neurological exam: Present: alert, oriented X3, CN II-XII intact Psychiatric exam: Present: normal affect, normal mood Skin exam: Present: warm, dry, intact, normal color. Absent: rash Course Vital Signs 08/28/23 08/28/23 08/28/23 17:50 18:00 18:17 Temperature 96.3 F L Pulse Rate 81 81 Respiratory 14 16 Rate Blood Pressure 69/45 71/53 O2 Sat by Pulse 96 Oximetry 08/28/23 08/28/23 08/28/23 18:20 18:25 18:30 Temperature Pulse Rate Respiratory 95 H Rate Blood Pressure 71/53 66/35 81/50 O2 Sat by Pulse Oximetry 08/28/23 08/28/23 08/28/23 18:35 18:40 18:45 Temperature Pulse Rate Respiratory Rate Blood Pressure 66/33 67/42 54/42 O2 Sat by Pulse Oximetry 08/28/23 08/28/23 08/28/23 18:48 18:50 18:55 Temperature Pulse Rate 82 Respiratory 12 12 Rate Blood Pressure 59/43 82/52 O2 Sat by Pulse 97 96 Oximetry 08/28/23 08/28/23 08/28/23 19:00 19:05 19:10 Temperature Pulse Rate Respiratory Rate Blood Pressure 54/33 70/44 79/52 O2 Sat by Pulse Oximetry 08/28/23 08/28/23 08/28/23 19:15 19:20 19:25 Temperature Pulse Rate 85 Respiratory 18 Rate Blood Pressure 95/54 84/54 121/102 O2 Sat by Pulse 96 Oximetry 08/28/23 08/28/23 08/28/23 19:30 19:35 19:40 Temperature Pulse Rate Respiratory Rate Blood Pressure 91/38 85/42 73/41 O2 Sat by Pulse Oximetry 08/28/23 08/28/23 08/28/23 19:45 19:50 19:52 Temperature Pulse Rate 81 Respiratory 12 12 Rate Blood Pressure 82/52 89/74 O2 Sat by Pulse Oximetry 08/28/23 08/28/23 08/28/23 19:55 20:00 20:05 Temperature Pulse Rate 90 Respiratory 18 Rate Blood Pressure 105/48 103/78 86/67 O2 Sat by Pulse Oximetry 08/28/23 08/28/23 08/28/23 20:10 20:15 20:20 Temperature Pulse Rate Respiratory Rate Blood Pressure 94/49 92/59 74/57 O2 Sat by Pulse Oximetry 08/28/23 08/28/23 08/28/23 20:30 20:35 20:40 Temperature Pulse Rate Respiratory Rate Blood Pressure 75/53 99/72 83/48 O2 Sat by Pulse Oximetry 08/28/23 08/28/23 08/28/23 20:45 20:50 20:55 Temperature Pulse Rate Respiratory Rate Blood Pressure 89/69 102/74 100/55 O2 Sat by Pulse Oximetry 08/28/23 08/28/23 21:24 21:44 Temperature Pulse Rate 92 94 Respiratory Rate Blood Pressure O2 Sat by Pulse Oximetry - Reevaluation(s) Reevaluation #1: 08/28/23 18:15 Records reviewed Reevaluation #2: 08/28/23 20:44 Patient's blood pressure remains labile here in the ER patient remains altered mental status unsure baseline Reevaluation #3: 08/28/23 20:44 Patient informed of results and questions answered Reevaluation #4: 08/28/23 18:15 Was pt. sent in by a medical professional or institution ([facility], [employer], urgent ca re, hospital, or longterm...) When possible be specific @ -no Did you speak to anyone other than the patient for history (EMS, parent, family, police, friend...)? What history was obtained from this source @ -no Did you review nursing and triage notes (agree or disagree)? Why? @ -agree Are old charts reviewed (outside hosp., previous admission, EMS record, old EKG, old radiological studies, urgent care reports/EKG's, longterm records)? Report findings @ -yes Differential Diagnosis (chest pain, altered mental status, abdominal pain women, abdominal pain men, vaginal bleeding, weakness, fever, dyspnea, syncope, headache, dizziness, GI bleed, back pain, seizure, CVA, palpatations, mental health, musculoskeletal)? @ -prior EKG interpreted by me (3pts min.). @ -yes X-rays interpreted by me (1pt min.). @ -yes positive for CHF CT interpreted by me (1pt min.). @ -no U/S interpreted by me (1pt. min.). @ -no What testing was considered but not performed or refused? (CT, X-rays, U/S, labs)? Why? @ -none What meds were considered but not given or refused? Why? @ -none Did you discuss the management of the patient with other professionals (professionals i.e. , [facility], [employer]STALLER, lab, RT, psych nurse, social science research assistant, cruise director, teacher, staff electronic warfare officer, spring encaser)? Give summary @ -no Was smoking cessation discussed for >3mins.? @ -no Was critical care preformed (if so, how long)? @ -yes31 Were there social determinants of health that impacted care today? How? (Homelessness, low income, unemployed, alcoholism, drug addiction, transportation, low edu. Level, literacy, decrease access to med. care, [facility], rehab)? @ -none Was there de-escalation of care discussed even if they declined (Discuss DNR or withdrawal of care, Hospice)? DNR status @ -no What co-morbidities impacted this encounter? (DM, HTN, Smoking, COPD, CAD, Cancer, CVA, ARF, Chemo, Hep., AIDS, mental health diagnosis, sleep apnea, morbid obesity)? @ -none Was patient admitted / discharged? Hospital course, mention meds given and route, prescriptions, significant lab abnormalities, going to OR and other pertinent info. @ - 72 male to the emergency department for evaluation. Patient presents the emergency department today for evaluation regards to altered mental status with occasional headaches. Patient has labile blood pressure here in the ER will be admitted for further supportive care patient is found to have also significant COPD and CHF with hypoxia Admitted Undiagnosed new problem with uncertain prognosis? @ -no Drug Therapy requiring intensive monitoring for toxicity (Heparin, Nitro, Insulin, Cardizem)? @ -no Were any procedures done? @ -no Diagnosis/symptom? @ -COPD, CHF, hypoxia, altered mental status Acute, or Chronic, or Acute on Chronic? @ -Acute Uncomplicated (without systemic symptoms) or Complicated (systemic symptoms)? @ -Complicated Side effects of treatment? @ -no Exacerbation, Progression, or Severe Exacerbation? @ -exacerbation Poses a threat to life or bodily function? How? (Chest pain, USA, ME, pneumonia, PE, COPD, DKA, ARF, appy, cholecystitis, CVA, Diverticulitis, Homicidal, Suicidal, threat to staff... and all critical care pts) @ -yes significant respiratory distress Reevaluation #5: 08/28/23 20:44 Differential Altered Mental Status: Hypoglycemia, DKA, hypercapnia, ETOH, overdose, CO poisoning, trauma, myxedema coma, HTN encephalopathy, infection, encephalitis, psychosis, intercranial hemorrhage, hepatic encephalopathy, meningitis, CVA, this is not meant to be an all-inclusive list - Consultations Consultation #1: Spoke with [facility] were agreeable with this patient EKG Findings - EKG Comments: EKG Findings:: EKG is A. fib 81 QRS 125 QTc 456 - EKG Results: EKG: interpreted by ZHANNA Medical Decision Making - Medical Decision Making 72 male to the emergency department for evaluation. Patient presents the emergency department today for evaluation regards to altered mental status with occasional headaches. Patient has labile blood pressure here in the ER will be admitted for further supportive care patient is found to have also significant COPD and CHF with hypoxia - Lab Data Result diagrams: 09/01/23 11:35 09/01/23 11:35 Lab Results 08/28/23 08/28/23 08/28/23 Range/Units 18:01 18:01 18:01 WBC 22.5 H (3.8-10.6) k/uL RBC 4.44 (4.30-5.90) m/uL Hgb 12.8 L (13.0-17.5) gm/dL Hct 38.8 L (39.0-53.0) % MCV 87.3 (80.0-100.0) fL MCH 28.8 (25.0-35.0) pg MCHC 32.9 (31.0-37.0) g/dL RDW 16.7 H (11.5-15.5) % Plt Count 302 (150-450) k/uL MPV 8.2 Neutrophils % 81 % Lymphocytes % 10 % Monocytes % 7 % Eosinophils % 1 % Basophils % 1 % Neutrophils # 18.2 H (1.3-7.7) k/uL Lymphocytes # 2.3 (1.0-4.8) k/uL Monocytes # 1.5 H (0-1.0) k/uL Eosinophils # 0.2 (0-0.7) k/uL Basophils # 0.1 (0-0.2) k/uL Anisocytosis Slight PT 10.3 (10.0-12.5) sec INR 0.9 (<1.2) APTT 23.0 (22.0-30.0) sec Sodium 123 L (137-145) mmol/L Potassium 2.8 L (3.5-5.1) mmol/L Chloride 72 L* (98-107) mmol/L Carbon Dioxide 37 H (22-30) mmol/L Anion Gap 14 mmol/L BUN 37 H (9-20) mg/dL Creatinine 1.22 (0.66-1.25) mg/dL Est GFR (CKD-EPI)AfAm 68 (>60 ml/min/1.73 sqM) Est GFR (CKD-EPI)NonAf 59 (>60 ml/min/1.73 sqM) Glucose 135 H (74-99) mg/dL Lactic Ac Sepsis Rflx Plasma Lactic Acid Wes (0.7-2.0) mmol/L Calcium 8.2 L (8.4-10.2) mg/dL Phosphorus 3.3 (2.5-4.5) mg/dL Magnesium 1.4 L (1.6-2.3) mg/dL Total Bilirubin 1.0 (0.2-1.3) mg/dL AST 23 (17-59) U/L ALT 24 (4-49) U/L Alkaline Phosphatase 67 (38-126) U/L Troponin I (0.000-0.034) ng/mL NT-Pro-B Natriuret Pep 1020 pg/mL Total Protein 5.7 L (6.3-8.2) g/dL Albumin 3.4 L (3.5-5.0) g/dL Urine Color Urine Appearance (Clear) Urine pH (5.0-8.0) Ur Specific Ta[place] (1.001-1.035) Urine Protein (Negative) Urine Glucose (UA) (Negative) Urine Ketones (Negative) Urine Blood (Negative) Urine Nitrite (Negative) Urine Bilirubin (Negative) Urine Urobilinogen (<2.0) mg/dL Ur Leukocyte Esterase (Negative) 08/28/23 08/28/23 08/28/23 Range/Units 18:01 18:01 18:34 WBC (3.8-10.6) k/uL RBC (4.30-5.90) m/uL Hgb (13.0-17.5) gm/dL Hct (39.0-53.0) % MCV (80.0-100.0) fL MCH (25.0-35.0) pg MCHC (31.0-37.0) g/dL RDW (11.5-15.5) % Plt Count (150-450) k/uL MPV Neutrophils % % Lymphocytes % % Monocytes % % Eosinophils % % Basophils % % Neutrophils # (1.3-7.7) k/uL Lymphocytes # (1.0-4.8) k/uL Monocytes # (0-1.0) k/uL Eosinophils # (0-0.7) k/uL Basophils # (0-0.2) k/uL Anisocytosis PT (10.0-12.5) sec INR (<1.2) APTT (22.0-30.0) sec Sodium (137-145) mmol/L Potassium (3.5-5.1) mmol/L Chloride (98-107) mmol/L Carbon Dioxide (22-30) mmol/L Anion Gap mmol/L BUN (9-20) mg/dL Creatinine (0.66-1.25) mg/dL Est GFR (CKD-EPI)AfAm (>60 ml/min/1.73 sqM) Est GFR (CKD-EPI)NonAf (>60 ml/min/1.73 sqM) Glucose (74-99) mg/dL Lactic Ac Sepsis Rflx Y Plasma Lactic Acid Wes 3.5 H* (0.7-2.0) mmol/L Calcium (8.4-10.2) mg/dL Phosphorus (2.5-4.5) mg/dL Magnesium (1.6-2.3) mg/dL Total Bilirubin (0.2-1.3) mg/dL AST (17-59) U/L ALT (4-49) U/L Alkaline Phosphatase (38-126) U/L Troponin I 0.015 (0.000-0.034) ng/mL NT-Pro-B Natriuret Pep pg/mL Total Protein (6.3-8.2) g/dL Albumin (3.5-5.0) g/dL Urine Color Urine Appearance (Clear) Urine pH (5.0-8.0) Ur Specific [place] (1.001-1.035) Urine Protein (Negative) Urine Glucose (UA) (Negative) Urine Ketones (Negative) Urine Blood (Negative) Urine Nitrite (Negative) Urine Bilirubin (Negative) Urine Urobilinogen (<2.0) mg/dL Ur Leukocyte Esterase (Negative) 08/28/23 Range/Units 19:42 WBC (3.8-10.6) k/uL RBC (4.30-5.90) m/uL Hgb (13.0-17.5) gm/dL Hct (39.0-53.0) % MCV (80.0-100.0) fL MCH (25.0-35.0) pg MCHC (31.0-37.0) g/dL RDW (11.5-15.5) % Plt Count (150-450) k/uL MPV Neutrophils % % Lymphocytes % % Monocytes % % Eosinophils % % Basophils % % Neutrophils # (1.3-7.7) k/uL Lymphocytes # (1.0-4.8) k/uL Monocytes # (0-1.0) k/uL Eosinophils # (0-0.7) k/uL Basophils # (0-0.2) k/uL Anisocytosis PT (10.0-12.5) sec INR (<1.2) APTT (22.0-30.0) sec Sodium (137-145) mmol/L Potassium (3.5-5.1) mmol/L Chloride (98-107) mmol/L Carbon Dioxide (22-30) mmol/L Anion Gap mmol/L BUN (9-20) mg/dL Creatinine (0.66-1.25) mg/dL Est GFR (CKD-EPI)AfAm (>60 ml/min/1.73 sqM) Est GFR (CKD-EPI)NonAf (>60 ml/min/1.73 sqM) Glucose (74-99) mg/dL Lactic Ac Sepsis Rflx Plasma Lactic Acid Wes (0.7-2.0) mmol/L Calcium (8.4-10.2) mg/dL Phosphorus (2.5-4.5) mg/dL Magnesium (1.6-2.3) mg/dL Total Bilirubin (0.2-1.3) mg/dL AST (17-59) U/L ALT (4-49) U/L Alkaline Phosphatase (38-126) U/L Troponin I (0.000-0.034) ng/mL NT-Pro-B Natriuret Pep pg/mL Total Protein (6.3-8.2) g/dL Albumin (3.5-5.0) g/dL Urine Color Light Yellow Urine Appearance Clear (Clear) Urine pH 7.0 (5.0-8.0) Ur Specific [place] 1.009 (1.001-1.035) Urine Protein Negative (Negative) Urine Glucose (UA) 3+ H (Negative) Urine Ketones Negative (Negative) Urine Blood Negative (Negative) Urine Nitrite Negative (Negative) Urine Bilirubin Negative (Negative) Urine Urobilinogen <2.0 (<2.0) mg/dL Ur Leukocyte Esterase Negative (Negative) - EKG Data -: EKG Interpreted by Co - Radiology Data Radiology results: report reviewed (Chest x-ray shows some CHF), image reviewed Disposition Clinical Impression: COPD exacerbation, Acute and chronic respiratory failure with hypoxia, Weakness, Pulmonary edema, acute, Congestive heart failure, Atrial fibrillation with RVR, Altered mental status Disposition: ADMITTED IP TO THIS HOSP Condition: Serious Is patient prescribed a controlled substance at d/c from ED?: No
[2023-08-28 18:23] LABS: ALT 24 U/L (4-49); AST 23 U/L (17-59); African American GFR (CKD) 68 (>60 ml/min/1.73 sqM); Albumin 3.4 g/dL (3.5-5.0); Alkaline Phosphatase 67 U/L (38-126); Blood Urea Nitrogen 37 mg/dL (9-20); Calcium 8.2 mg/dL (8.4-10.2); Glucose 135 mg/dL (74-99); Magnesium 1.4 mg/dL (1.6-2.3); Non-African American GFR(CKD) 59 (>60 ml/min/1.73 sqM); Phosphorus 3.3 mg/dL (2.5-4.5); Sodium 123 mmol/L (137-145); Total Protein 5.7 g/dL (6.3-8.2)
[2023-08-28 18:26] LABS: INR 0.9 (<1.2); Prothrombin Time 10.3 sec (10.0-12.5)
[2023-08-28 18:29] LABS: Anion Gap 14 mmol/L; Carbon Dioxide 37 mmol/L (22-30)
[2023-08-28 18:31] LABS: NT-Pro-B-Type Natriuretic Pept 1020 pg/mL
[2023-08-28 18:32] LABS: Chloride 72 mmol/L (98-107); Potassium 2.8 mmol/L (3.5-5.1)
[2023-08-28] MEDS ORDERED: HYDROCORTISONE SUCCINATE 100 MG/2 ML VIAL IV STA (18:45)
[2023-08-28] MEDS ORDERED: NALOXONE 0.4 MG/ML 1 ML VIAL IVP STA ×2 (18:45→19:46)
[2023-08-28] MEDS: SODIUM CHLORIDE 0.9% 1,000 ML IV STA ×2 (18:48→19:44)
[2023-08-28] MEDS ORDERED: MAGNESIUM OXIDE 400 MG TAB PO STA ×2 (19:47)
[2023-08-28] MEDS: POTASSIUM CHLORIDE 10 MEQ in WATER FOR INJECTION 1 100ML.BAG IVPB SCH ×4 (20:04→23:20)
[2023-08-28 20:05] LABS: Appearance,Urine Clear (Clear); Bilirubin,Urine Negative (Negative); Blood,Urine Negative (Negative); Color,Urine Light Yellow; Glucose,Urine (UA) 3+ (Negative); Ketones,Urine Negative (Negative); Leukocyte Esterase,Urine Negative (Negative); Nitrite,Urine Negative (Negative); Protein,Urine Negative (Negative); Specific Gravity,Urine 1.009 (1.001-1.035); Urobilinogen,Urine <2.0 mg/dL (<2.0)
[2023-08-28] MEDS: MAGNESIUM SULFATE-D5W PMX 1 GM in DEXTROSE/WATER 1 100ML.BAG IVPB SCH ×3 (20:05→22:16)
[2023-08-28] MEDS ORDERED: POTASSIUM BICARBONATE/CIT AC 20 MEQ TABLET.EFF PO ONE (20:15)
[2023-08-28] MEDS ORDERED: NALOXONE 0.4 MG/ML 1 ML VIAL IV PRN (20:39)
[2023-08-28] MEDS ORDERED: ONDANSETRON 4 MG/2 ML VIAL IVP PRN (20:39)
[2023-08-28] MEDS ORDERED: MORPHINE SULFATE 4 MG/ML SYRINGE IV PRN (20:39)
[2023-08-28] MEDS ORDERED: methylPREDNISolone SOD SUCCI 125 MG/2 ML VIAL IV STA (20:47)
[2023-08-28] MEDS ORDERED: IPRATROPIUM-ALBUTEROL 3 ML NEB INHALATION STA (20:47)
[2023-08-28] MEDS ORDERED: AZITHROMYCIN 500 MG in SODIUM CHLORIDE 0.9% 250 ML IVPB STA (20:52)
--- NOTE | 2023-08-28 21:11 | XR ---
EXAM: XR chest 1V portable CLINICAL INDICATION:Male, 72 years old with history of cough; [facility] COMPARISON: 08/23/2023 TECHNIQUE: Chest single view. FINDINGS: Study is limited with the patient's head obscuring the lung apices. Lines/tubes/devices: Electrodes over the chest. No indwelling lines are seen. Cardiomediastinum: Cardiac silhouette appears upper limits of normal in size. Partially calcified mildly tortuous aorta. Vasculature: No increased pulmonary vasculature. Lungs/pleura: No consolidation, sizeable effusion, or visible pneumothorax. Coarsened interstitial lung markings, l ikely chronic changes with minor interstitial infiltrate not excluded. Mild bibasilar atelectasis or infiltrates. No dense consolidation, sizable effusion, or pneumothorax demonstrated. Bones/soft tissues: Bony thorax appears grossly intact as seen. Degenerative changes of the shoulders. Spine is not well seen. Regional soft tissues appear unremarkable. IMPRESSION: Limited study. Mild bibasilar infiltrates or atelectasis.
[2023-08-28] MEDS ORDERED: ZINC OXIDE PASTE (Z-GUARD) 1 APPLIC TOPICAL PRN (22:29)
[2023-08-28] MEDS ORDERED: SODIUM CHLORIDE 0.9% 500 ML 500 ML IV ONE (22:39)
[2023-08-28] MEDS ORDERED: HYDROcodone/APAP 5-325MG 1 EACH TAB PO STA (22:42)
[2023-08-28] MEDS: DULoxetine HCL 30 MG CAPSULE.DR PO SCH (23:06)
[2023-08-28] MEDS: NICOTINE 21MG/24HR PATCH TRANSDERM SCH (23:07)
[2023-08-29] MEDS: ALBUTEROL NEBULIZED 2.5 MG/3 ML INHALATION SCH ×3 (00:35→08:05)
[2023-08-29] MEDS ORDERED: SODIUM CHLORIDE 0.9% 1,000 ML IV ONE (00:50)
[2023-08-29] MEDS: SODIUM CHLORIDE 0.9% 1,000 ML IV SCH ×3 (01:32→16:43)
[2023-08-29] MEDS: methylPREDNISolone SOD SUCCI 125 MG/2 ML VIAL IV SCH ×4 (03:19→20:23)
[2023-08-29 04:21] LABS: Anisocytosis Slight; Basophils % (A) 0 %; Eosinophils % (A) 0 %; HCT 35.1 % (39.0-53.0); HGB 11.8 gm/dL (13.0-17.5); Lymphocytes # (A) 0.4 k/uL (1.0-4.8); Lymphocytes % (A) 2 %; MCH 29.3 pg (25.0-35.0); MCHC 33.5 g/dL (31.0-37.0); MCV 87.3 fL (80.0-100.0); Mean Platelet Volume 7.8; Monocytes # (A) 0.2 k/uL (0-1.0); Monocytes % (A) 1 %; Neutrophils # (A) 15.3 k/uL (1.3-7.7); Neutrophils % (A) 96 %; Platelet Count 242 k/uL (150-450); RBC 4.02 m/uL (4.30-5.90); RDW 16.7 % (11.5-15.5); WBC 15.9 k/uL (3.8-10.6)
[2023-08-29 04:46] LABS: ALT 23 U/L (4-49); AST 16 U/L (17-59); African American GFR (CKD) >90 (>60 ml/min/1.73 sqM); Alkaline Phosphatase 73 U/L (38-126); Anion Gap 7 mmol/L; Blood Urea Nitrogen 25 mg/dL (9-20); Calcium 7.5 mg/dL (8.4-10.2); Carbon Dioxide 35 mmol/L (22-30); Chloride 84 mmol/L (98-107); Glucose 167 mg/dL (74-99); Magnesium 2.4 mg/dL (1.6-2.3); Non-African American GFR(CKD) >90 (>60 ml/min/1.73 sqM); Phosphorus 3.1 mg/dL (2.5-4.5); Potassium 3.3 mmol/L (3.5-5.1); Sodium 126 mmol/L (137-145); Total Bilirubin 0.6 mg/dL (0.2-1.3); Total Protein 5.2 g/dL (6.3-8.2)
[2023-08-29] MEDS ORDERED: Potassium Replacement Protocol 1 EACH MISC MISCELLANE PRN (05:06)
[2023-08-29] MEDS: POTASSIUM CHLORIDE ER 20 MEQ TAB.ER PO SCH ×4 (05:21→13:54)
[2023-08-29 06:04] LABS: Glucose,Whole Blood 178 mg/dL (70-110)
[2023-08-29] MEDS: SYMBICORT 160-4.5 MCG INHALER INHALATION SCH ×2 (08:06→20:43)
[2023-08-29] MEDS: APIXABAN 5 MG TAB PO SCH ×2 (08:36→20:22)
[2023-08-29] MEDS: LIDOCAINE 4% PATCH TOPICAL SCH (08:36)
[2023-08-29] MEDS: FUROSEMIDE 40 MG TAB PO SCH ×2 (08:36→16:19)
[2023-08-29] MEDS: PANTOPRAZOLE 40 MG/10 ML VIAL IVP SCH (08:37)
[2023-08-29] MEDS ORDERED: DEXTROSE 50% SYRINGE 50 ML IVP PRN ×2 (11:04)
[2023-08-29 11:19] LABS: Glucose,Whole Blood 487 mg/dL (70-110)
[2023-08-29] MEDS: IPRATROPIUM-ALBUTEROL 3 ML NEB INHALATION SCH ×3 (11:31→20:43)
[2023-08-29] MEDS ORDERED: INSULIN DETEMIR (LEVEMIR) 100 UNIT/ML SYR SQ STA (12:02)
[2023-08-29] MEDS: METOPROLOL TARTRATE 50 MG TAB PO SCH ×2 (12:23→20:22)
[2023-08-29] MEDS: INSULIN ASPART (NovoLOG) 100 UNIT/ML VIAL SQ SCH ×3 (12:24→20:21)
[2023-08-29] MEDS: HYDROcodone/APAP 10-325MG 1 EACH TAB PO PRN ×3 (12:24→20:22)
--- NOTE | 2023-08-29 15:49 | P.CNPUL ---
History of Present Illness Consult date: 08/29/23 Requesting physician: Tigre E Juanjo Reason for consult: COPD Chief complaint: Weakness, headache, ringing in the ears History of present illness: This is a very pleasant 72-year-old male patient with a past medical history significant for severe oxygen dependent COPD, normally maintained on 3 L/m nasal cannula, congestive heart failure, chronic atrial fibrillation, diabetes mellitus, hyperlipidemia, hypertension, obesity, GERD and is a ongoing chronic smoker. He was staying at [facility]. He was just discharged there again on 08/24/2023. He presented back to the emergency room on 08/28/2023 with complaints of weakness, ringing in his ears and headache. Chest x-ray revealed mild bibasilar infiltrates or atelectasis. White count 15.9. Hemoglobin 11.8. Platelets 242. Sodium 126. Potassium 3.3. Bicarb 35. BUN 25. Creatinine 0.73. Glucose 167. ProBNP 1000 1T. Troponin 0.025, 0.044. EKG reveals atrial fibrillation with a controlled ventricular response. He is seen today in consultation on the selective care unit. He is currently sitting up in bed. Awake and alert in no acute distress. He is maintaining O2 saturations in the 90s on 2 L/m per nasal cannula. He has normal saline at 75 ML's per hour. He has been initiated and DuoNeb inhalations, Symbicort, Solu-Medrol. NicoDerm patch in place. Anticoagulated with Eliquis. Currently on azithromycin. Pro- calcitonin pending. Review of Systems REVIEW OF SYSTEMS: CONSTITUTIONAL: Generalized weakness. Ringing in the ears. Headache. Denies any recent significant weight loss or weight gain. EYES: Denies change in vision. EARS, NOSE, MOUTH, THROAT: Denies headaches, denies sore throat. CARDIOVASCULAR: Denies chest pain, palpitations or syncopal episodes. RESPIRATORY: Denies shortness of breath, cough, congestion or hemoptysis. GASTROINTESTINAL: Denies change in appetite, denies abdominal pain GENITOURINARY: Denies hematuria, denies infections. MUSKULOSKELETAL: Denies pain, denies swelling. INTEGUMENTARY: Denies rash, denies eczema. NEUROLOGICAL: Denies recent memory loss, no recent seizure activity. PSYCHIATRIC: Denies anxiety, denies depression. HEMATOLOGIC/LYMPHATIC: Denies anemia, denies enlarged lymph nodes. Past Medical History Past Medical History: Atrial Fibrillation, Asthma, COPD, Diabetes Mellitus, GERD/Reflux, Hyperlipidemia, Hypertension, Osteoarthritis (OA), Pneumonia Additional Past Medical History / Comment(s): Afib RVR, home oxygen prn, bronchitis, pt states he is on metformin to prevent becoming diabetic, neuropathy bilateral feet/L hand, chronic pain back,/bilateral hips/knees/elbows and shoulders, L heel pain, FALLS, cataracts. 11/23/22 ex-spouse phylicia Waterman reports history is accurate to her knowledge. current adominal hernia noted History of Any Multi-Drug Resistant Organisms: None Reported Past Surgical History: Appendectomy Additional Past Surgical History / Comment(s): Colonoscopy Past Anesthesia/Blood Transfusion Reactions: No Reported Reaction Past Psychological History: Unable to Obtain, Anxiety, Depression Additional Psychological History / Comment(s): 11/23/22 ex-spouse phylicia Waterman reports history is accurate to her knowledge. Smoking Status: Former smoker Past Alcohol Use History: None Reported Additional Past Alcohol Use History / Comment(s): He states he has hx of ETOH abuse but has not drank in a few years. quit smoking july 2023 Past Drug Use History: None Reported Additional Drug Use History / Comment(s): Patient reports being a heavy marijuana smoker in the 1969" - Past Family History Father Family Medical History: Congestive Heart Failure (CHF), COPD Additional Family Medical History / Comment(s): Father was an alcoholic but was able to quit drinking Mother Family Medical History: Congestive Heart Failure (CHF), COPD Additional Family Medical History / Comment(s): Mother was an alcoholic. Daughter(s) Additional Family Medical History / Comment(s): Liver cancer Medications and Allergies Home Medications Medication Instructions Recorded Confirmed Type Apixaban [Eliquis] 5 mg PO BID #60 tab 07/08/20 08/28/23 Rx Tamsulosin [Flomax] 0.4 mg PO HS 12/07/21 08/28/23 History Theophylline Anhydrous 400 mg PO DAILY@0600 02/18/22 08/28/23 History [Theophylline ER] Escitalopram [Lexapro] 5 mg PO HS 08/29/22 08/28/23 History Metoprolol Tartrate [Lopressor] 50 mg PO BID tab 09/07/22 08/28/23 Rx metFORMIN HCL [Glucophage] 500 mg PO BID tab 09/07/22 08/28/23 Rx Atorvastatin Calcium [Lipitor] 40 mg PO HS 12/31/22 08/28/23 History DULoxetine HCL [Cymbalta] 30 mg PO HS 12/31/22 08/28/23 History hydrALAZINE HCL [Apresoline] 25 mg PO DAILY 04/25/23 08/28/23 History metOLazone [Zaroxolyn] 2.5 mg PO DAILY 08/17/23 08/28/23 History Budesonide-Formot 160-4.5 Mcg 2 puff INHALATION RT-BID 30 Days 08/22/23 08/28/23 Rx [Symbicort 160-4.5 Mcg Inhaler] #1 each Fluticasone Nasal Bud [Flonase 2 spray EA NOSTRIL DAILY PRN #7 ml 08/22/23 08/28/23 Rx Nasal Bud] Ipratropium-Albuterol Nebulize 3 ml INHALATION RT-Q2H PRN each 08/22/23 08/28/23 Rx [Duoneb 0.5 mg-3 mg/3 ml Soln] Ipratropium-Albuterol Nebulize 3 ml INHALATION RT-QID each 08/22/23 08/28/23 Rx [Duoneb 0.5 mg-3 mg/3 ml Soln] Lidocaine 4% Patch 1 patch TOPICAL DAILY #30 patch 08/22/23 08/28/23 Rx HYDROcodone/APAP 10-325MG [[place] 1 tab PO Q4H PRN #4 tab 08/24/23 08/28/23 Rx 10-325] diazePAM [Valium] 5 mg PO DAILY PRN #1 tab 08/24/23 08/28/23 Rx Dapagliflozin Propanediol [Farxiga] 10 mg PO DAILY@0600 08/28/23 08/28/23 History Furosemide [Lasix] 40 mg PO BID@0600,1400 08/28/23 08/28/23 History Insulin Glargine-Yfgn [Semglee 20 units SQ HS 08/28/23 08/28/23 History (Yfgn) Pen] Insulin Lispro See Protocol SQ ACHS 08/28/23 08/28/23 History Nicotine 21Mg/24Hr Patch [Habitrol] 1 patch TRANSDERM HS 08/28/23 08/28/23 History Potassium Chloride ER [K-Dur 20] 20 meq PO DAILY 08/28/23 08/28/23 History Pregabalin [Lyrica] 75 mg PO HS 08/28/23 08/28/23 History Spironolactone [Aldactone] 25 mg PO DAILY@0600 08/28/23 08/28/23 History guaiFENesin [Mucinex] 1,200 mg PO HS 08/28/23 08/28/23 History predniSONE See Taper PO DIRECTED 08/28/23 08/28/23 History Allergies Allergy/AdvReac Type Severity Reaction Status Date / Time ANJU Inhibitors Allergy Unknown - Verified 08/28/23 18:06 per [facility] doxycycline Allergy Anaphylaxis Verified 08/28/23 18:06 Penicillins Allergy Anaphylaxis, Verified 08/28/23 18:06 Seizure Physical Exam Vitals: Vital Signs Temp Pulse Pulse Resp BP BP Pulse Ox 08/29/23 15:24 76 08/29/23 14:00 82 18 08/29/23 11:48 82 18 128/75 97 08/29/23 11:40 80 08/29/23 11:31 80 08/29/23 08:34 98.1 F 97 18 135/74 94 L 08/29/23 08:30 97 18 08/29/23 08:17 84 08/29/23 08:06 80 95 08/29/23 04:17 85 08/29/23 04:02 80 08/29/23 03:13 98.6 F 91 20 165/69 94 L 08/29/23 02:03 95 22 145/73 95 08/29/23 00:47 84 08/29/23 00:36 87 08/28/23 23:30 98 20 90/57 93 L 08/28/23 22:00 98 F 90 24 95/59 95 08/28/23 21:56 111 H 20 99/58 96 08/28/23 21:44 94 08/28/23 21:24 92 08/28/23 20:55 100/55 08/28/23 20:50 102/74 08/28/23 20:45 89/69 08/28/23 20:40 83/48 08/28/23 20:35 99/72 08/28/23 20:30 75/53 08/28/23 20:20 74/57 08/28/23 20:15 92/59 08/28/23 20:10 94/49 08/28/23 20:05 86/67 08/28/23 20:00 103/78 08/28/23 19:55 90 18 105/48 08/28/23 19:52 12 08/28/23 19:50 81 12 89/74 08/28/23 19:45 82/52 08/28/23 19:40 73/41 08/28/23 19:35 85/42 08/28/23 19:30 91/38 08/28/23 19:25 121/102 08/28/23 19:20 85 18 84/54 96 08/28/23 19:15 95/54 08/28/23 19:10 79/52 08/28/23 19:05 70/44 08/28/23 19:00 54/33 08/28/23 18:55 82/52 96 08/28/23 18:50 82 12 59/43 97 08/28/23 18:48 12 08/28/23 18:45 54/42 08/28/23 18:40 67/42 08/28/23 18:35 66/33 08/28/23 18:30 95 H 81/50 08/28/23 18:25 66/35 08/28/23 18:20 71/53 08/28/23 18:17 81 16 71/53 08/28/23 18:00 96.3 F L 08/28/23 17:50 81 14 69/45 96 Intake and Output 08/29/23 08/29/23 08/29/23 06:59 14:59 22:59 Intake Total 420 Output Total 1800 2000 500 Balance -1800 1580 -500 Intake: Oral 420 Output: Urine 1800 1999 500 Other: Voiding Method Urinal Urinal # Voids 1 GENERAL EXAM: Alert, pleasant 72-year-old male, on 2 L nasal cannula, comfortable in no apparent distress. HEAD: Normocephalic. EYES: Normal reaction of pupils, equal size. NOSE: Clear with pink turbinates. THROAT: No erythema or exudates. NECK: No masses, no JVD. CHEST: No chest wall deformity. LUNGS: Equal air entry with no crackles, wheeze, rhonchi or dullness. Diminished. CVS: S1 and S2 normal with no audible murmur, regular rhythm. ABDOMEN: No hepatosplenomegaly, normal bowel sounds, no guarding or rigidity. SPINE: No scoliosis or deformity SKIN: No rashes CENTRAL NERVOUS SYSTEM: No focal deficits, tone is normal in all 4 extremities. EXTREMITIES: There is no peripheral edema. No clubbing, no cyanosis. Peripher al pulses are intact. Results - Laboratory Findings CBC and BMP: 08/29/23 04:02 08/29/23 10:52 PT/INR, D-dimer PT 10.3 sec (10.0-12.5) 08/28/23 18:01 INR 0.9 (<1.2) 08/28/23 18:01 Abnormal lab findings: Abnormal Labs 08/28/23 08/28/23 08/28/23 18:01 18:01 18:01 WBC 22.5 H RBC Hgb 12.8 L Hct 38.8 L RDW 16.7 H Neutrophils # 18.2 H Lymphocytes # Monocytes # 1.5 H Sodium 123 L Potassium 2.8 L Chloride 72 L* Carbon Dioxide 37 H BUN 37 H Glucose 135 H POC Glucose (mg/dL) Plasma Lactic Acid Wes 3.5 H* Calcium 8.2 L Magnesium 1.4 L AST Troponin I Total Protein 5.7 L Albumin 3.4 L Urine Glucose (UA) 08/28/23 08/28/23 08/29/23 19:42 21:12 00:10 WBC RBC Hgb Hct RDW Neutrophils # Lymphocytes # Monocytes # Sodium Potassium Chloride Carbon Dioxide BUN Glucose POC Glucose (mg/dL) Plasma Lactic Acid Wes 2.6 H* Calcium Magnesium AST Troponin I 0.044 H* Total Protein Albumin Urine Glucose (UA) 3+ H 08/29/23 08/29/23 08/29/23 00:14 04:02 04:02 WBC 15.9 H RBC 4.02 L Hgb 11.8 L Hct 35.1 L RDW 16.7 H Neutrophils # 15.3 H Lymphocytes # 0.4 L Monocytes # Sodium 126 L Potassium 3.3 L Chloride 84 L Carbon Dioxide 35 H BUN 25 H Glucose 167 H POC Glucose (mg/dL) Plasma Lactic Acid Wes 2.9 H* Calcium 7.5 L Magnesium 2.4 H AST 16 L Troponin I Total Protein 5.2 L Albumin 3.0 L Urine Glucose (UA) 08/29/23 08/29/23 08/29/23 06:03 10:52 11:17 WBC RBC Hgb Hct RDW Neutrophils # Lymphocytes # Monocytes # Sodium Potassium 3.4 L Chloride Carbon Dioxide BUN Glucose POC Glucose (mg/dL) 178 H 487 H Plasma Lactic Acid Wes Calcium Magnesium AST Troponin I Total Protein Albumin Urine Glucose (UA) - Diagnostic Findings Chest x-ray: image reviewed Assessment and Plan Assessment: Generalized weakness, headache, ringing in the ears of unclear etiology Acute on chronic hypoxemic respiratory failure secondary to an acute exacerbation of chronic obstructive pulmonary disease Chronic and ongoing tobacco dependence CHF with ejection fraction of 40-45% moderate concentric LVH and moderate degree of pulmonary hypertension.repeat echo cardiac exam continues to show RV dilatation and moderate degree of pulmonary hypertension. Ejection fraction is improved and is currently up to 50-55%. Chronic atrial fibrillation, with controlled ventricular rate, anticoagulated on Eliquis, Essential hypertension Hyperlipidemia Diabetes mellitus type 2, complicated by diabetic neuropathy Morbid obesity with BMI of 31 kg/m Chronic pain Umbilical Hernia Plan: The patient was seen and evaluated Chest x-ray, labs and medications reviewed Continue bronchodilators, steroids Check a pro-calcitonin Continue azithromycin for now Titrate the FiO2 as tolerated Educated regarding the importance of complete smoking cessation NicoDerm patch in place Anticoagulated with Eliquis We will continue to follow and make further recommendations based on his clinical status I have personally seen and examined the patient, performed the documentation and the assessment and plan as written. Number of minutes spent on the visit: 20.
[2023-08-29 16:38] LABS: Glucose,Whole Blood 187 mg/dL (70-110)
[2023-08-29 20:02] LABS: Glucose,Whole Blood 298 mg/dL (70-110)
[2023-08-29] MEDS: DULoxetine HCL 30 MG CAPSULE.DR PO SCH (20:22)
[2023-08-29] MEDS: INSULIN DETEMIR (LEVEMIR) 100 UNIT/ML SYR SQ SCH (20:22)
[2023-08-29] MEDS: ATORVASTATIN 40 MG TAB PO SCH (20:22)
[2023-08-29] MEDS: ESCITALOPRAM 5 MG TAB PO SCH (20:22)
[2023-08-29] MEDS: TAMSULOSIN 0.4 MG CAP.ER.24H PO SCH (20:22)
[2023-08-29] MEDS: NICOTINE 21MG/24HR PATCH TRANSDERM SCH (20:23)
[2023-08-29] MEDS ORDERED: AZITHROMYCIN 500 MG in SODIUM CHLORIDE 0.9% 250 ML IVPB SCH (21:00)
--- NOTE | 2023-08-29 22:50 | P.HPIM ---
History of Present Illness H&P Date: 08/29/23 Chief Complaint: Difficulty breathing and agitation Patient is a 72-year-old male with a known history of COPD on home oxygen, chronic hypoxemic respiratory failure, chronic atrial fibrillation on anticoagulation with Eliquis, hypertension, hyperlipidemia, osteoarthritis, an xiety/depression currently everyday smoker/vapor quit about 2 weeks ago presents to ER with complaints of worsening shortness of breath. Patient felt like ringing in the ear and was hallucinating and agitated. [facility] staff called EMS. Patient was confused on admission. No fevers or chills. Patient was discharged from hospital on 08/24/2023 to [facility] on the leg. He was treated for acute COPD exacerbation and pneumonia and completed antibiotic course with ceftriaxone and azithromycin. Patient is currently taking Lasix, metolazone and spironolactone. On admission blood pressure was 69/45, pulse 81 respiration 14 and pulse ox 96% on 2 L oxygen via nasal cannula. EKG showed atrial fibrillation with heart rate 81 Chest x-ray showed limited study. Mild bibasilar infiltrates or atelectasis. In the ER patient was given IV fluid bolus and was continued on IV hydration and also given antibiotics in the form of ceftriaxone azithromycin. She was started on IV Solu-Medrol and DuoNebs. Laboratory data showed WBC 22.5 hemoglobin 12.8 and platelets 302 Sodium 123 potassium 2.8 chloride 172 bicarb is 37 BUN 37 creatinine 1.22 and blood sugar 135 and lactic acid 3.5 and magnesium 1.4 proBNP 1020 and troponin 0.015 and 0.025 and 0.044 Urinalysis showed 3+ glucose Review of Systems Constitutional: Patient denies any fever or chills . Generalized weakness and fatigue. Abdomen: Patient denied any nausea or vomiting or abd. pain Cardiovascular: Patient denies any chest pain. Patient did have short of breath no palpitations. No worsening leg swelling Respiratory: patient does have cough without sputum production. Positive for shortness of breath Neurologic: Patient denied any numbness or tingling. Patient did complain of headache and ringing in the ears. Musculoskeletal: Patient denies any complaints of joint swelling or deformity. Skin: Negative Psychiatric: Negative Endocrine: No heat or cold intolerance. No recent weight gain. Genitourinary: No dysuria or hematuria. All other 14 point ROS negative except the above Past Medical History Past Medical History: Atrial Fibrillation, Asthma, COPD, Diabetes Mellitus, GERD/Reflux, Hyperlipidemia, Hypertension, Osteoarthritis (OA), Pneumonia Additional Past Medical History / Comment(s): Afib RVR, home oxygen prn, bronchitis, pt states he is on metformin to prevent becoming diabetic, neuropathy bilateral feet/L hand, chronic pain back,/bilateral hips/knees/elbows and shoulders, L heel pain, FALLS, cataracts. 11/23/22 ex-spouse phylicia Waterman reports history is accurate to her knowledge. current adominal hernia noted History of Any Multi-Drug Resistant Organisms: None Reported Past Surgical History: Appendectomy Additional Past Surgical History / Comment(s): Colonoscopy Past Anesthesia/Blood Transfusion Reactions: No Reported Reaction Past Psychological History: Unable to Obtain, Anxiety, Depression Additional Psychological History / Comment(s): 11/23/22 ex-spouse phylicia Waterman matteo rts history is accurate to her knowledge. Smoking Status: Former smoker Past Alcohol Use History: None Reported Additional Past Alcohol Use History / Comment(s): He states he has hx of ETOH abuse but has not drank in a few years. quit smoking july 2023 Past Drug Use History: None Reported Additional Drug Use History / Comment(s): Patient reports being a heavy marijuan a smoker in the 1969" - Past Family History Father Family Medical History: Congestive Heart Failure (CHF), COPD Additional Family Medical History / Comment(s): Father was an alcoholic but was able to quit drinking Mother Family Medical History: Congestive Heart Failure (CHF), COPD Additional Family Medical History / Comment(s): Mother was an alcoholic. Daughter(s) Additional Family Medical History / Comment(s): Liver cancer Medications and Allergies Home Medications Medication Instructions Recorded Confirmed Type Apixaban [Eliquis] 5 mg PO BID #60 tab 07/08/20 08/28/23 Rx Tamsulosin [Flomax] 0.4 mg PO HS 12/07/21 08/28/23 History Theophylline Anhydrous 400 mg PO DAILY@0600 02/18/22 08/28/23 History [Theophylline ER] Escitalopram [Lexapro] 5 mg PO HS 08/29/22 08/28/23 History Metoprolol Tartrate [Lopressor] 50 mg PO BID tab 09/07/22 08/28/23 Rx metFORMIN HCL [Glucophage] 500 mg PO BID tab 09/07/22 08/28/23 Rx Atorvastatin Calcium [Lipitor] 40 mg PO HS 12/31/22 08/28/23 History DULoxetine HCL [Cymbalta] 30 mg PO HS 12/31/22 08/28/23 History hydrALAZINE HCL [Apresoline] 25 mg PO DAILY 04/25/23 08/28/23 History metOLazone [Zaroxolyn] 2.5 mg PO DAILY 08/17/23 08/28/23 History Budesonide-Formot 160-4.5 Mcg 2 puff INHALATION RT-BID 30 Days 08/22/23 08/28/23 Rx [Symbicort 160-4.5 Mcg Inhaler] #1 each Fluticasone Nasal [place] [Flonase 2 spray EA NOSTRIL DAILY PRN #7 ml 08/22/23 08/28/23 Rx Nasal [place]] Ipratropium-Albuterol Nebulize 3 ml INHALATION RT-Q2H PRN each 08/22/23 08/28/23 Rx [Duoneb 0.5 mg-3 mg/3 ml Soln] Ipratropium-Albuterol Nebulize 3 ml INHALATION RT-QID each 08/22/23 08/28/23 Rx [Duoneb 0.5 mg-3 mg/3 ml Soln] Lidocaine 4% Patch 1 patch TOPICAL DAILY #30 patch 08/22/23 08/28/23 Rx HYDROcodone/APAP 10-325MG [[place] 1 tab PO Q4H PRN #4 tab 08/24/23 08/28/23 Rx 10-325] diazePAM [Valium] 5 mg PO DAILY PRN #1 tab 08/24/23 08/28/23 Rx Dapagliflozin Propanediol [Farxiga] 10 mg PO DAILY@0600 08/28/23 08/28/23 History Furosemide [Lasix] 40 mg PO BID@0600,1400 08/28/23 08/28/23 History Insulin Glargine-Yfgn [Semglee 20 units SQ HS 08/28/23 08/28/23 History (Yfgn) Pen] Insulin Lispro See Protocol SQ ACHS 08/28/23 08/28/23 History Nicotine 21Mg/24Hr Patch [Habitrol] 1 patch TRANSDERM HS 08/28/23 08/28/23 History Potassium Chloride ER [K-Dur 20] 20 meq PO DAILY 08/28/23 08/28/23 History Pregabalin [Lyrica] 75 mg PO HS 08/28/23 08/28/23 History Spironolactone [Aldactone] 25 mg PO DAILY@0600 08/28/23 08/28/23 History guaiFENesin [Mucinex] 1,200 mg PO HS 08/28/23 08/28/23 History predniSONE See Taper PO DIRECTED 08/28/23 08/28/23 History Allergies Allergy/AdvReac Type Severity Reaction Status Date / Time ANJU Inhibitors Allergy Unknown - Verified 08/28/23 18:06 per [facility] doxycycline Allergy Anaphylaxis Verified 08/28/23 18:06 Penicillins Allergy Anaphylaxis, Verified 08/28/23 18:06 Seizure Physical Exam Vitals: Vital Signs Temp Pulse Pulse Resp BP BP Pulse Ox 08/29/23 08:34 98.1 F 97 18 135/74 94 L 08/29/23 08:30 97 18 08/29/23 08:17 84 08/29/23 08:06 80 95 08/29/23 04:17 85 08/29/23 04:02 80 08/29/23 03:13 98.6 F 91 20 165/69 94 L 08/29/23 02:03 95 22 145/73 95 08/29/23 00:47 84 08/29/23 00:36 87 08/28/23 23:30 98 20 90/57 93 L 08/28/23 22:00 98 F 90 24 95/59 95 08/28/23 21:56 111 H 20 99/58 96 08/28/23 21:44 94 08/28/23 21:24 92 08/28/23 20:55 100/55 08/28/23 20:50 102/74 08/28/23 20:45 89/69 08/28/23 20:40 83/48 08/28/23 20:35 99/72 08/28/23 20:30 75/53 08/28/23 20:20 74/57 08/28/23 20:15 92/59 08/28/23 20:10 94/49 08/28/23 20:05 86/67 08/28/23 20:00 103/78 12/17/23 19:55 90 18 105/48 12/17/23 19:52 12 08/28/23 19:50 81 12 89/74 08/28/23 19:45 82/52 08/28/23 19:40 73/41 08/28/23 19:35 85/42 08/28/23 19:30 91/38 08/28/23 19:25 121/102 08/28/23 19:20 85 18 84/54 96 08/28/23 19:15 95/54 08/28/23 19:10 79/52 08/28/23 19:05 70/44 08/28/23 19:00 54/33 08/28/23 18:55 82/52 96 08/28/23 18:50 82 12 59/43 97 08/28/23 18:48 12 08/28/23 18:45 54/42 08/28/23 18:40 67/42 08/28/23 18:35 66/33 08/28/23 18:30 95 H 81/50 08/28/23 18:25 66/35 08/28/23 18:20 71/53 08/28/23 18:17 81 16 71/53 08/28/23 18:00 96.3 F L 08/28/23 17:50 81 14 69/45 96 Intake and Output 08/28/23 08/29/23 08/29/23 22:59 06:59 14:59 Intake Total 237 240 Output Total 400 1800 1300 Balance -163 -1800 -1060 Intake: Oral 237 240 Output: Urine 400 1800 1300 Other: Voiding Method Urinal Urinal Urinal # Voids 1 1 Weight 111.674 kg PHYSICAL EXAMINATION: Patient is lying in the bed comfortably, no acute distress, awake alert and oriented.. HEENT: Normocephalic. Neck is supple. Pupils reactive. Nostrils clear. Oral cavity is moist. Neck reveals no JVD, carotid bruits, or thyromegaly. CHEST EXAMINATION: Trachea is central. Symmetrical expansion. Bibasilar dim inished sounds, occasional rhonchi and wheezing. CARDIAC: Normal S1, S2 with no gallops. No murmurs. Irregularly irregular rhythm. ABDOMEN: Soft. Bowel sounds present. Nontender. No organomegaly. No abdominal bruits. Extremities: Trace bilateral pedal edema. No clubbing or cyanosis Neurologically awake, alert, oriented x3 with well-coordinated movements. No focal deficits noted Skin: No rash or skin lesions. Psychiatric: Coperative. Nonsuicidal, Musculoskeletal: No joint swelling or deformity. Results CBC & Chem 7: 08/29/23 04:02 08/29/23 10:52 Labs: Abnormal Lab Results - Last 24 Hours (Table) 08/28/23 08/28/23 08/28/23 Range/Units 18:01 18:01 18:01 WBC 22.5 H (3.8-10.6) k/uL RBC (4.30-5.90) m/uL Hgb 12.8 L (13.0-17.5) gm/dL Hct 38.8 L (39.0-53.0) % RDW 16.7 H (11.5-15.5) % Neutrophils # 18.2 H (1.3-7.7) k/uL Lymphocytes # (1.0-4.8) k/uL Monocytes # 1.5 H (0-1.0) k/uL Sodium 123 L (137-145) mmol/L Potassium 2.8 L (3.5-5.1) mmol/L Chloride 72 L* (98-107) mmol/L Carbon Dioxide 37 H (22-30) mmol/L BUN 37 H (9-20) mg/dL Glucose 135 H (74-99) mg/dL POC Glucose (mg/dL) (70-110) mg/dL Plasma Lactic Acid Wes 3.5 H* (0.7-2.0) mmol/L Calcium 8.2 L (8.4-10.2) mg/dL Magnesium 1.4 L (1.6-2.3) mg/dL AST (17-59) U/L Troponin I (0.000-0.034) ng/mL Total Protein 5.7 L (6.3-8.2) g/dL Albumin 3.4 L (3.5-5.0) g/dL Urine Glucose (UA) (Negative) 08/28/23 08/28/23 08/29/23 Range/Units 19:42 21:12 00:10 WBC (3.8-10.6) k/uL RBC (4.30-5.90) m/uL Hgb (13.0-17.5) gm/dL Hct (39.0-53.0) % RDW (11.5-15.5) % Neutrophils # (1.3-7.7) k/uL Lymphocytes # (1.0-4.8) k/uL Monocytes # (0-1.0) k/uL Sodium (137-145) mmol/L Potassium (3.5-5.1) mmol/L Chloride (98-107) mmol/L Carbon Dioxide (22-30) mmol/L BUN (9-20) mg/dL Glucose (74-99) mg/dL POC Glucose (mg/dL) (70-110) mg/dL Plasma Lactic Acid Wes 2.6 H* (0.7-2.0) mmol/L Calcium (8.4-10.2) mg/dL Magnesium (1.6-2.3) mg/dL AST (17-59) U/L Troponin I 0.044 H* (0.000-0.034) ng/mL Total Protein (6.3-8.2) g/dL Albumin (3.5-5.0) g/dL Urine Glucose (UA) 3+ H (Negative) 08/29/23 08/29/23 08/29/23 Range/Units 00:14 04:02 04:02 WBC 15.9 H (3.8-10.6) k/uL RBC 4.02 L (4.30-5.90) m/uL Hgb 11.8 L (13.0-17.5) gm/dL Hct 35.1 L (39.0-53.0) % RDW 16.7 H (11.5-15.5) % Neutrophils # 15.3 H (1.3-7.7) k/uL Lymphocytes # 0.4 L (1.0-4.8) k/uL Monocytes # (0-1.0) k/uL Sodium 126 L (137-145) mmol/L Potassium 3.3 L (3.5-5.1) mmol/L Chloride 84 L (98-107) mmol/L Carbon Dioxide 35 H (22-30) mmol/L BUN 25 H (9-20) mg/dL Glucose 167 H (74-99) mg/dL POC Glucose (mg/dL) (70-110) mg/dL Plasma Lactic Acid Wes 2.9 H* (0.7-2.0) mmol/L Calcium 7.5 L (8.4-10.2) mg/dL Magnesium 2.4 H (1.6-2.3) mg/dL AST 16 L (17-59) U/L Troponin I (0.000-0.034) ng/mL Total Protein 5.2 L (6.3-8.2) g/dL Albumin 3.0 L (3.5-5.0) g/dL Urine Glucose (UA) (Negative) 08/29/23 Range/Units 06:03 WBC (3.8-10.6) k/uL RBC (4.30-5.90) m/uL Hgb (13.0-17.5) gm/dL Hct (39.0-53.0) % RDW (11.5-15.5) % Neutrophils # (1.3-7.7) k/uL Lymphocytes # (1.0-4.8) k/uL Monocytes # (0-1.0) k/uL Sodium (137-145) mmol/L Potassium (3.5-5.1) mmol/L Chloride (98-107) mmol/L Carbon Dioxide (22-30) mmol/L BUN (9-20) mg/dL Glucose (74-99) mg/dL POC Glucose (mg/dL) 178 H (70-110) mg/dL Plasma Lactic Acid Wes (0.7-2.0) mmol/L Calcium (8.4-10.2) mg/dL Magnesium (1.6-2.3) mg/dL AST (17-59) U/L Troponin I (0.000-0.034) ng/mL Total Protein (6.3-8.2) g/dL Albumin (3.5-5.0) g/dL Urine Glucose (UA) (Negative) Thrombosis Risk Factor Assmnt - DVT/VTE Prophylaxis DVT/VTE Prophylaxis: Pharmacologic Prophylaxis ordered - Choose All That Apply Any of the Below Risk Factors Present?: Yes Each Factor Represents 1 point: Abnormal pulmonary function (COPD), Heart failure (<1month), Medical pt on bed rest, Obesity (BMI >25), Serious lung disease incl. pneumonia (< 1month), Swollen legs (current), Varicose veins Other Risk Factors: Yes Each Risk Factor Represents 2 Points: Age 61-74 years Other congenital or acquired thrombophilia - If yes, enter type in comment: No Thrombosis Risk Factor Assessment Total Risk Factor Score: 9 Thrombosis Risk Factor Assessment Level: High Risk Assessment and Plan Assessment: Generalized weakness fatigue and altered mental status with ringing in the ears/hallucinations. Possible metabolic encephalopathy Hypovolemic hyponatremia Acute on chronic hypoxemic respiratory failure secondary to COPD exacerbation and mild CHF exacerbation Acute exacerbation COPD Bibasilar atelectasis/infiltrates. Possible pneumonia Leukocytosis Chronic CHF with reduced ejection fraction 40 to 45% and moderate pulmonary hypertension. Severe right ventricular dilatation. EF improved to 50 to 55% on echocardiogram 08/18/2023 Chronic atrial fibrillation on anticoagulation with Eliquis Hypertension Hyperlipidemia Diabetes type 2 [id number] Diabetic peripheral neuropathy Chronic ongoing active addiction Osteoarthritis GERD Anxiety/depression Morbid obesity BMI 37.4 DVT prophylaxis patient is already on Eliquis GI prophylaxis with Protonix Plan: Patient was given IV fluids and was continued on IV hydration normal saline. Blood pressure did not improve and IV fluids to be on hold. Follow-up lactic acid level. Sodium level is improving and insulin regimen for better blood sugar control. Patient will be continued on IV Solu-Medrol, DuoNebs and will be continued on antibiotics, azithromycin. Follow-up procalcitonin level. Continue with oxygen supplementation and titrate down to room air. Continue with Lasix. Spironolactone and metolazone is on hold. Follow-up CBC and BMP tomorrow. Pulmonary will be consulted. Prognosis is guarded with multiple medical problems and comorbid conditions. Time with Patient: Greater than 30
[2023-08-30] MEDS: HYDROcodone/APAP 10-325MG 1 EACH TAB PO PRN ×5 (00:17→20:04)
[2023-08-30] MEDS: IPRATROPIUM-ALBUTEROL 3 ML NEB INHALATION PRN ×2 (01:03→04:04)
[2023-08-30] MEDS: SODIUM CHLORIDE 0.9% 1,000 ML IV SCH (01:58)
[2023-08-30] MEDS: diazePAM 5 MG TAB PO PRN (02:09)
[2023-08-30] MEDS: methylPREDNISolone SOD SUCCI 125 MG/2 ML VIAL IV SCH ×4 (02:09→20:04)
[2023-08-30] MEDS: THEOPHYLLINE 24 HOUR 400 MG CAP.ER.24H PO SCH (05:30)
[2023-08-30 05:56] LABS: Glucose,Whole Blood 174 mg/dL (70-110)
[2023-08-30] MEDS: INSULIN ASPART (NovoLOG) 100 UNIT/ML VIAL SQ SCH ×4 (05:58→20:04)
[2023-08-30 07:09] LABS: Anisocytosis Slight; Basophils % (A) 0 %; Eosinophils % (A) 0 %; HCT 34.3 % (39.0-53.0); HGB 11.3 gm/dL (13.0-17.5); Hypochromasia Slight; Lymphocytes # (A) 0.4 k/uL (1.0-4.8); Lymphocytes % (A) 3 %; MCH 29.4 pg (25.0-35.0); Mean Platelet Volume 8.4; Monocytes # (A) 0.5 k/uL (0-1.0); Monocytes % (A) 3 %; Neutrophils # (A) 14.5 k/uL (1.3-7.7); Neutrophils % (A) 93 %; Platelet Count 252 k/uL (150-450); RBC 3.86 m/uL (4.30-5.90); RDW 16.8 % (11.5-15.5); WBC 15.6 k/uL (3.8-10.6)
[2023-08-30] MEDS: IPRATROPIUM-ALBUTEROL 3 ML NEB INHALATION SCH ×4 (08:21→20:55)
[2023-08-30] MEDS: SYMBICORT 160-4.5 MCG INHALER INHALATION SCH ×2 (08:21→20:55)
[2023-08-30 08:26] LABS: African American GFR (CKD) >90 (>60 ml/min/1.73 sqM); Anion Gap 9 mmol/L; Blood Urea Nitrogen 27 mg/dL (9-20); Carbon Dioxide 32 mmol/L (22-30); Chloride 89 mmol/L (98-107); Glucose 161 mg/dL (74-99); Non-African American GFR(CKD) >90 (>60 ml/min/1.73 sqM); Potassium 3.8 mmol/L (3.5-5.1); Sodium 130 mmol/L (137-145)
[2023-08-30] MEDS: FUROSEMIDE 40 MG TAB PO SCH ×2 (09:17→16:02)
[2023-08-30] MEDS: APIXABAN 5 MG TAB PO SCH ×2 (09:17→20:04)
[2023-08-30] MEDS: METOPROLOL TARTRATE 50 MG TAB PO SCH ×2 (09:17→20:04)
[2023-08-30] MEDS: LIDOCAINE 4% PATCH TOPICAL SCH (09:17)
[2023-08-30] MEDS: PANTOPRAZOLE 40 MG/10 ML VIAL IVP SCH (09:18)
[2023-08-30] MEDS: POTASSIUM CHLORIDE ER 20 MEQ TAB.ER PO SCH (09:18)
--- NOTE | 2023-08-30 11:22 | CDI ---
Documentation Clarification Form Date: From: Diana Pedroza Phone: [phone] Admit Date: 08/28/2023 08:39:00 PM Patient Name: Olegario Villela Visit Number: [id number] Discharge Date: ATTENTION: The Clinical Documentation Specialists (CDI) and [facility] Coding Staff appreciate your assistance in clarifying documentation. Please respond to the clarification below the line at the bottom and electronically sign. The CDI & [facility] Coding staff will review the response and follow-up if needed. Please note: Queries are made part of the Legal Health Record. If you have any questions, please contact the author of this message via ITS. Dr. Charissa Mcnair Your patient has the documented diagnosis of unspecified CHF in the Medical H&P on 08/29. Additional information regarding the type and acuity of CHF is requested. History/Risk Factors: Clinical Indicators: "CHF with ejection fraction of 40-45% moderate concentric LVH and moderate degree of pulmonary hypertension. repeat echo cardiac exam continues to show RV dilatation and moderate degree of pulmonary hypertension. Ejection fraction is improved and is currently up to 50-55%." - Per Pulmonology Consult Note on 08/29 "mild CHF exacerbation" "Chronic CHF with reduced ejection fraction 40 to 45%" - Per Medical H&P on 08/29 VS/Pulse OX: 08/28 - Temp: 96.3, HR 81, RR 14, BP 69/45, O2 96% on 2L proBNP: 1020 Chest X Ray: 08/28 - "Limited Study: Mild bibasilar infiltrates or atelectasis" Treatment: "Continue with Lasix. Spironolactone and metolazone is on hold." - Per Medical H&P on 08/29 In your professional opinion, can you please clarify the acuity and type of CHF if known? [ x ] Acute on Chronic Systolic Heart Failure [ ] Chronic Systolic Heart Failure [ ] Other, please specify [ ] Unable to determine MTDD
[2023-08-30 11:27] LABS: Glucose,Whole Blood 260 mg/dL (70-110)
--- NOTE | 2023-08-30 11:39 | P.PN ---
Subjective Progress Note Date: 08/30/23 Principal diagnosis: Weakness, COPD. This is a very pleasant 72-year-old male patient with a past medical history significant for severe oxygen dependent COPD, normally maintained on 3 L/m nasal cannula, congestive heart failure, chronic atrial fibrillation, diabetes mellitus, hyperlipidemia, hypertension, obesity, GERD and is a ongoing chronic smoker. He was staying at [facility]. He was just discharged there again on 08/24/2023. He presented back to the emergency room on 08/28/2023 with complaints of weakness, ringing in his ears and headache. Chest x-ray revealed mild bibasilar infiltrates or atelectasis. White count 15.9. Hemoglobin 11.8. Platelets 242. Sodium 126. Potassium 3.3. Bicarb 35. BUN 25. Creatinine 0.73. Glucose 167. ProBNP 1000 1T. Troponin 0.025, 0.044. EKG reveals atrial fibrillation with a controlled ventricular response. He is seen today in consultation on the selective care unit. He is currently sitting up in bed. Awake and alert in no acute distress. He is maintaining O2 saturations in the 90s on 2 L/m per nasal cannula. He has normal saline at 75 ML's per hour. He has been initiated and DuoNeb inhalations, Symbicort, Solu-Medrol. NicoDerm patch in place. Anticoagulated with Eliquis. Currently on azithromycin. Pro- calcitonin pending. Progress note dated 08/30/2023. 72-year-old male seen yesterday in consultation. The patient has a well- established history of severe oxygen-dependent COPD. The patient is well-known to our service, has had multiple admissions, at this institution, as well as o thers in the area. The patient was actually admitted with a diagnosis of weakness, shortness of breath, and lower extremity edema. He has a history of chronic atrial fibrillation, severe oxygen dependent COPD, congestive heart failure, hyperlipidemia, hypertension, diabetes, among other things. Currently, the patient's resting comfortably, on 3 L of oxygen. The patient is getting saline at 20 mL an hour. White count 15.6, hemoglobin 11.3, hematocrit 34.8, and platelet count 252,000. Sodium 1:30, potassium 3.8, chlorides 89, CO2 32, BUN 27, and creatinine 0.58. Objective - Vital Signs Vital signs: Vital Signs Temp 97.7 F 08/30/23 09:15 Pulse 71 08/30/23 11:11 Resp 18 08/30/23 11:11 BP 145/76 08/30/23 11:11 Pulse Ox 95 08/30/23 11:11 FiO2 Intake & Output 08/29/23 08/30/23 08/30/23 18:59 06:59 18:59 Intake Total 600 Output Total 2500 2000 Balance -1899 Intake: Oral 600 Output: Urine 2500 2000 Other: Voiding Method Urinal Urinal Urinal # Voids 1 - Exam No acute distress, oriented 3. Currently on 3 L of oxygen by nasal cannula. HEENT examination is grossly unremarkable. Mucous membranes are moist. No oral lesions. Neck supple. Full range of motion. No adenopathy thyromegaly or neck vein distention. Cardiovascular examination reveals regular rhythm rate. S1-S2 normal. No S3 or S4. No discernible murmur noted. Heart sounds are distant. Heart rate 71 bpm. Lungs reveal scattered bilateral rhonchi. No wheezes. No crackles. Breath sounds are equal bilaterally but diminished throughout. 3 L saturation 95%. Abdomen obese, with bowel sounds. No masses or tenderness. Extremities are intact. Trace edema. No cyanosis or clubbing. Skin is without rash or lesion. Neurologic examination is brief but nonfocal. - Labs CBC & Chem 7: 08/30/23 06:32 08/30/23 06:32 Labs: Abnormal Lab Results - Last 24 Hours (Table) 08/29/23 08/29/23 08/29/23 Range/Units 10:52 16:37 20:00 WBC (3.8-10.6) k/uL RBC (4.30-5.90) m/uL Hgb (13.0-17.5) gm/dL Hct (39.0-53.0) % RDW (11.5-15.5) % Neutrophils # (1.3-7.7) k/uL Lymphocytes # (1.0-4.8) k/uL Sodium (137-145) mmol/L Chloride (98-107) mmol/L Carbon Dioxide (22-30) mmol/L BUN (9-20) mg/dL Creatinine (0.66-1.25) mg/dL Glucose (74-99) mg/dL POC Glucose (mg/dL) 187 H 298 H (70-110) mg/dL Calcium (8.4-10.2) mg/dL Procalcitonin 0.11 H (0.02-0.09) ng/mL 08/30/23 08/30/23 08/30/23 Range/Units 05:54 06:32 06:32 WBC 15.6 H (3.8-10.6) k/uL RBC 3.86 L (4.30-5.90) m/uL Hgb 11.3 L (13.0-17.5) gm/dL Hct 34.3 L (39.0-53.0) % RDW 16.8 H (11.5-15.5) % Neutrophils # 14.5 H (1.3-7.7) k/uL Lymphocytes # 0.4 L (1.0-4.8) k/uL Sodium 130 L (137-145) mmol/L Chloride 89 L (98-107) mmol/L Carbon Dioxide 32 H (22-30) mmol/L BUN 27 H (9-20) mg/dL Creatinine 0.58 L (0.66-1.25) mg/dL Glucose 161 H (74-99) mg/dL POC Glucose (mg/dL) 174 H (70-110) mg/dL Calcium 8.0 L (8.4-10.2) mg/dL Procalcitonin (0.02-0.09) ng/mL 08/30/23 Range/Units 11:26 WBC (3.8-10.6) k/uL RBC (4.30-5.90) m/uL Hgb (13.0-17.5) gm/dL Hct (39.0-53.0) % RDW (11.5-15.5) % Neutrophils # (1.3-7.7) k/uL Lymphocytes # (1.0-4.8) k/uL Sodium (137-145) mmol/L Chloride (98-107) mmol/L Carbon Dioxide (22-30) mmol/L BUN (9-20) mg/dL Creatinine (0.66-1.25) mg/dL Glucose (74-99) mg/dL POC Glucose (mg/dL) 260 H (70-110) mg/dL Calcium (8.4-10.2) mg/dL Procalcitonin (0.02-0.09) ng/mL Assessment and Plan Assessment: Generalized weakness, headache, ringing in the ears of unclear etiology. Acute on chronic hypoxemic respiratory failure secondary to an acute exacerbation of chronic obstructive pulmonary disease. Chronic and ongoing tobacco dependence. CHF with ejection fraction of 40-45% moderate concentric LVH and moderate degree of pulmonary hypertension.repeat echo cardiac exam continues to show RV dilatation and moderate degree of pulmonary hypertension. Ejection fraction is improved and is currently up to 50-55%. Chronic atrial fibrillation, with controlled ventricular rate, anticoagulated on Eliquis. Essential hypertension. Hyperlipidemia. Diabetes mellitus type 2, complicated by diabetic neuropathy. Morbid obesity with BMI of 31 kg/m. Chronic pain. Umbilical hernia. Plan: Plan dated 08/30/2023. The patient appears relatively stable. We have seen this patient over and over, at this institution and others. His pro-calcitonin level was just minimally elevated at 0.11. We don't believe the patient has an active infection at this time. Labs, x-rays, medications are reviewed. The patient was admitted primarily for weakness, and ringing in the ears. The patient did have some mild lower extremity edema. He is chronically short of breath, but we don't feel that he was having a COPD exacerbation. Labs, x-rays, medications are reviewed. We will continue to follow the patient, and make recommendations along the way. Prognosis is poor. Time with Patient: Less than 30
[2023-08-30 16:33] LABS: Glucose,Whole Blood 251 mg/dL (70-110)
[2023-08-30 19:54] LABS: Glucose,Whole Blood 233 mg/dL (70-110)
[2023-08-30] MEDS: INSULIN DETEMIR (LEVEMIR) 100 UNIT/ML SYR SQ SCH (20:04)
[2023-08-30] MEDS: NICOTINE 21MG/24HR PATCH TRANSDERM SCH (20:04)
[2023-08-30] MEDS: ATORVASTATIN 40 MG TAB PO SCH (20:04)
[2023-08-30] MEDS: DULoxetine HCL 30 MG CAPSULE.DR PO SCH (20:04)
[2023-08-30] MEDS: TAMSULOSIN 0.4 MG CAP.ER.24H PO SCH (20:04)
[2023-08-30] MEDS: ESCITALOPRAM 5 MG TAB PO SCH (20:06)
[2023-08-31] MEDS: diazePAM 5 MG TAB PO PRN (00:12)
[2023-08-31] MEDS: HYDROcodone/APAP 10-325MG 1 EACH TAB PO PRN ×6 (00:12→20:48)
[2023-08-31] MEDS: IPRATROPIUM-ALBUTEROL 3 ML NEB INHALATION PRN ×2 (00:14→04:39)
[2023-08-31] MEDS: methylPREDNISolone SOD SUCCI 125 MG/2 ML VIAL IV SCH ×4 (02:49→20:48)
[2023-08-31] MEDS: THEOPHYLLINE 24 HOUR 400 MG CAP.ER.24H PO SCH (04:07)
[2023-08-31 06:13] LABS: Glucose,Whole Blood 208 mg/dL (70-110)
[2023-08-31] MEDS: INSULIN ASPART (NovoLOG) 100 UNIT/ML VIAL SQ SCH ×4 (06:15→20:49)
[2023-08-31] MEDS: PANTOPRAZOLE 40 MG/10 ML VIAL IVP SCH (08:09)
[2023-08-31] MEDS: LIDOCAINE 4% PATCH TOPICAL SCH (08:09)
[2023-08-31] MEDS: FUROSEMIDE 40 MG TAB PO SCH ×2 (08:10→17:03)
[2023-08-31] MEDS: METOPROLOL TARTRATE 50 MG TAB PO SCH ×2 (08:10→20:48)
[2023-08-31] MEDS: POTASSIUM CHLORIDE ER 20 MEQ TAB.ER PO SCH (08:10)
[2023-08-31] MEDS: APIXABAN 5 MG TAB PO SCH ×2 (08:10→20:48)
[2023-08-31 08:47] LABS: Anisocytosis Slight; Basophils % (A) 0 %; Eosinophils % (A) 0 %; HCT 34.5 % (39.0-53.0); HGB 11.1 gm/dL (13.0-17.5); Hypochromasia Slight; Lymphocytes # (A) 0.3 k/uL (1.0-4.8); Lymphocytes % (A) 3 %; MCH 29.2 pg (25.0-35.0); MCHC 32.3 g/dL (31.0-37.0); MCV 90.3 fL (80.0-100.0); Mean Platelet Volume 8.4; Monocytes # (A) 0.5 k/uL (0-1.0); Monocytes % (A) 4 %; Neutrophils # (A) 11.7 k/uL (1.3-7.7); Neutrophils % (A) 93 %; Platelet Count 257 k/uL (150-450); RBC 3.82 m/uL (4.30-5.90); RDW 16.8 % (11.5-15.5); WBC 12.6 k/uL (3.8-10.6)
[2023-08-31] MEDS: IPRATROPIUM-ALBUTEROL 3 ML NEB INHALATION SCH ×4 (09:23→20:47)
[2023-08-31] MEDS: SYMBICORT 160-4.5 MCG INHALER INHALATION SCH ×2 (09:23→20:47)
[2023-08-31 09:34] LABS: African American GFR (CKD) >90 (>60 ml/min/1.73 sqM); Anion Gap 11 mmol/L; Blood Urea Nitrogen 29 mg/dL (9-20); Carbon Dioxide 32 mmol/L (22-30); Chloride 86 mmol/L (98-107); Glucose 282 mg/dL (74-99); Non-African American GFR(CKD) >90 (>60 ml/min/1.73 sqM); Potassium 3.6 mmol/L (3.5-5.1); Sodium 129 mmol/L (137-145)
[2023-08-31] MEDS ORDERED: POTASSIUM CHLORIDE ER 20 MEQ TAB.ER PO STA (10:50)
--- NOTE | 2023-08-31 11:17 | P.PN ---
Subjective Progress Note Date: 08/31/23 Principal diagnosis: Weakness, COPD. This is a very pleasant 72-year-old male patient with a past medical history significant for severe oxygen dependent COPD, normally maintained on 3 L/m nasal cannula, congestive heart failure, chronic atrial fibrillation, diabetes mellitus, hyperlipidemia, hypertension, obesity, GERD and is a ongoing chronic smoker. He was staying at [facility]. He was just discharged there again on 08/24/2023. He presented back to the emergency room on 08/28/2023 with complaints of weakness, ringing in his ears and headache. Chest x-ray revealed mild bibasilar infiltrates or atelectasis. White count 15.9. Hemoglobin 11.8. Platelets 242. Sodium 126. Potassium 3.3. Bicarb 35. BUN 25. Creatinine 0.73. Glucose 167. ProBNP 1000 1T. Troponin 0.025, 0.044. EKG reveals atrial fibrillation with a controlled ventricular response. He is seen today in consultation on the selective care unit. He is currently sitting up in bed. Awake and alert in no acute distress. He is maintaining O2 saturations in the 90s on 2 L/m per nasal cannula. He has normal saline at 75 ML's per hour. He has been initiated and DuoNeb inhalations, Symbicort, Solu-Medrol. NicoDerm patch in place. Anticoagulated with Eliquis. Currently on azithromycin. Pro- calcitonin pending. Progress note dated 08/30/2023. 72-year-old male seen yesterday in consultation. The patient has a well- established history of severe oxygen-dependent COPD. The patient is well-known to our service, has had multiple admissions, at this institution, as well as o thers in the area. The patient was actually admitted with a diagnosis of weakness, shortness of breath, and lower extremity edema. He has a history of chronic atrial fibrillation, severe oxygen dependent COPD, congestive heart failure, hyperlipidemia, hypertension, diabetes, among other things. Currently, the patient's resting comfortably, on 3 L of oxygen. The patient is getting saline at 20 mL an hour. White count 15.6, hemoglobin 11.3, hematocrit 34.8, and platelet count 252,000. Sodium 1:30, potassium 3.8, chlorides 89, CO2 32, BUN 27, and creatinine 0.58. Progress note dated 08/31/2023. 72-year-old male, who was seen in consultation 2 days ago. The patient is well- known to our service, and has had multiple admissions for COPD exacerbations, as well as hypoxemic and hypercapnic respiratory failure. Currently, labs include a white count of 12.6, hemoglobin 11.1, hematocrit 34.5, and a platelet count of 257,000. Sodium is 129, potassium 3.6, chloride 86, CO2 32, BUN 29, and creatinine 0.64. Glucose 282. Calcium is 8. The patient's major complaint today, as it's been for the last couple of days, are noises in his head, or ringing in the ears. Objective - Vital Signs Vital signs: Vital Signs Temp 97.9 F 08/31/23 08:04 Pulse 99 08/31/23 09:35 Resp 18 08/31/23 09:35 BP 127/73 08/31/23 08:04 Pulse Ox 99 08/31/23 09:24 FiO2 Intake & Output 08/30/23 08/31/23 08/31/23 18:59 06:59 18:59 Intake Total 500 Output Total 1700 800 Balance -1700 -800 500 Intake: IV 20 Invasive Line 2 10 Invasive Line 3 10 Oral 480 Output: Urine 1700 800 Other: Voiding Method Urinal Urinal Urinal # Voids 1 - Exam No acute distress, oriented 3. Currently on 2 L of oxygen by nasal cannula. HEENT examination is grossly unremarkable. Mucous membranes are moist. No oral lesions. Neck supple. Full range of motion. No adenopathy thyromegaly or neck vein di stention. Cardiovascular examination reveals regular rhythm rate. S1-S2 normal. No S3 or S4. No discernible murmur noted. Heart sounds are distant. Heart rate 99 bpm. Lungs reveal scattered bilateral rhonchi. No wheezes. No crackles. Breath sounds are equal bilaterally but diminished throughout. 2 L saturation is 99%. Abdomen obese, with bowel sounds. No masses or tenderness. Extremities are intact. Trace edema. No cyanosis or clubbing. Skin is without rash or lesion. Neurologic examination is brief but nonfocal. - Labs CBC & Chem 7: 08/31/23 08:15 08/31/23 08:15 Labs: Abnormal Lab Results - Last 24 Hours (Table) 08/30/23 08/30/23 08/30/23 Range/Units 11:26 16:31 19:52 WBC (3.8-10.6) k/uL RBC (4.30-5.90) m/uL Hgb (13.0-17.5) gm/dL Hct (39.0-53.0) % RDW (11.5-15.5) % Neutrophils # (1.3-7.7) k/uL Lymphocytes # (1.0-4.8) k/uL Sodium (137-145) mmol/L Chloride (98-107) mmol/L Carbon Dioxide (22-30) mmol/L BUN (9-20) mg/dL Creatinine (0.66-1.25) mg/dL Glucose (74-99) mg/dL POC Glucose (mg/dL) 260 H 251 H 233 H (70-110) mg/dL Calcium (8.4-10.2) mg/dL 08/31/23 08/31/23 08/31/23 Range/Units 06:11 08:15 08:15 WBC 12.6 H (3.8-10.6) k/uL RBC 3.82 L (4.30-5.90) m/uL Hgb 11.1 L (13.0-17.5) gm/dL Hct 34.5 L (39.0-53.0) % RDW 16.8 H (11.5-15.5) % Neutrophils # 11.7 H (1.3-7.7) k/uL Lymphocytes # 0.3 L (1.0-4.8) k/uL Sodium 129 L (137-145) mmol/L Chloride 86 L (98-107) mmol/L Carbon Dioxide 32 H (22-30) mmol/L BUN 29 H (9-20) mg/dL Creatinine 0.64 L (0.66-1.25) mg/dL Glucose 282 H (74-99) mg/dL POC Glucose (mg/dL) 208 H (70-110) mg/dL Calcium 8.0 L (8.4-10.2) mg/dL Assessment and Plan Assessment: Generalized weakness, headache, ringing in the ears of unclear etiology. Acute on chronic hypoxemic respiratory failure secondary to an acute exacerbation of chronic obstructive pulmonary disease. Chronic and ongoing tobacco dependence. CHF with ejection fraction of 40-45% moderate concentric LVH and moderate degree of pulmonary hypertension.repeat echo cardiac exam continues to show RV dilatation and moderate degree of pulmonary hypertension. Ejection fraction is improved and is currently up to 50-55%. Chronic atrial fibrillation, with controlled ventricular rate, anticoagulated on Eliquis. Essential hypertension. Hyperlipidemia. Diabetes mellitus type 2, complicated by diabetic neuropathy. Morbid obesity with BMI of 31 kg/m. Chronic pain. Umbilical hernia. Plan: Plan dated 08/30/2023. The patient appears relatively stable. We have seen this patient over and over, at this institution and others. His pro-calcitonin level was just minimally elevated at 0.11. We don't believe the patient has an active infection at this time. Labs, x-rays, medications are reviewed. The patient was admitted primarily for weakness, and ringing in the ears. The patient did have some mild lower extremity edema. He is chronically short of breath, but we don't feel that he was having a COPD exacerbation. Labs, x-rays, medications are reviewed. We will continue to follow the patient, and make recommendations along the way. Prognosis is poor. Plan dated 08/31/2023. The patient is seen today in room 369. His been weaned down to 2 L of oxygen. Saturations are more than adequate. The patient is complaining about noises in his head, or ringing in his ears. The primary service will be alerted. Labs, x-rays, and medications are reviewed. Clinically, he appears relatively stable, and could be discharged from the pulmonary standpoint. We'll leave that up to the primary service. Labs, x-rays, and medications are reviewed. Overall prognosis remains very guarded. Time with Patient: Less than 30
[2023-08-31 11:39] LABS: Glucose,Whole Blood 269 mg/dL (70-110)
[2023-08-31 16:49] LABS: Glucose,Whole Blood 234 mg/dL (70-110)
[2023-08-31 20:07] LABS: Glucose,Whole Blood 214 mg/dL (70-110)
[2023-08-31] MEDS: ESCITALOPRAM 5 MG TAB PO SCH (20:47)
[2023-08-31] MEDS: DULoxetine HCL 30 MG CAPSULE.DR PO SCH (20:48)
[2023-08-31] MEDS: TAMSULOSIN 0.4 MG CAP.ER.24H PO SCH (20:48)
[2023-08-31] MEDS: NICOTINE 21MG/24HR PATCH TRANSDERM SCH (20:48)
[2023-08-31] MEDS: ATORVASTATIN 40 MG TAB PO SCH (20:48)
[2023-08-31] MEDS: INSULIN DETEMIR (LEVEMIR) 100 UNIT/ML SYR SQ SCH (21:33)
--- NOTE | 2023-09-01 00:18 | P.PN ---
Subjective Progress Note Date: 08/30/23 Patient is a 72-year-old male with a known history of COPD on home oxygen, chronic hypoxemic respiratory failure, chronic atrial fibrillation on anticoagulation with Eliquis, hypertension, hyperlipidemia, osteoarthritis, anxiety/depression currently everyday smoker/vapor quit about 2 weeks ago presents to ER with complaints of worsening shortness of breath. Patient felt like ringing in the ear and was hallucinating and agitated. ECF staff called EMS. Patient was confused on admission. No fevers or chills. Patient was discharged from hospital on 08/24/[address] [facility] on the leg. He was treated for acute COPD exacerbation and pneumonia and completed antibiotic course with ceftriaxone and azithromycin. Patient is currently taking Lasix, metolazone and spironolactone. On admission blood pressure was 69/45, pulse 81 respiration 14 and pulse ox 96% on 2 L oxygen via nasal cannula. EKG showed atrial fibrillation with heart rate 81 Chest x-ray showed limited study. Mild bibasilar infiltrates or atelectasis. In the ER patient was given IV fluid bolus and was continued on IV hydration and also given antibiotics in the form of ceftriaxone azithromycin. She was started on IV Solu-Medrol and DuoNebs. Laboratory data showed WBC 22.5 hemoglobin 12.8 and platelets 302 Sodium 123 potassium 2.8 chloride 172 bicarb is 37 BUN 37 creatinine 1.22 and blood sugar 135 and lactic acid 3.5 and magnesium 1.4 proBNP 1020 and troponin 0.015 and 0.025 and 0.044 Urinalysis showed 3+ glucose 08/30/2023 Patient is currently lying in bed. Awake alert and oriented x 3. Breathing status is slightly better. Still having diffuse wheezing and scattered rhonchi on exam. Patient has been afebrile. No complaints of chest pain. Leg swelling is also improved. No nausea vomiting or diarrhea. Patient is being continued on Lasix. IV fluids on hold. Blood pressures stable. Patient is on oxygen at 3 L via nasal cannula. Tolerating oral diet. Continued on IV Solu-Medrol and DuoNebs. Laboratory data showed WBC 15.6 hemoglobin 11.3 and platelets 252 Sodium 130 potassium 3.8 chloride 89 bicarb is 32 BUN 27 creatinine 0.58 and blood sugar is 161 and calcium 8.0. Current medications reviewed. Objective - Vital Signs Vital signs: Vital Signs Temp 97.7 F 08/30/23 19:54 Pulse 75 08/30/23 21:09 Resp 24 08/30/23 19:54 BP 140/78 08/30/23 19:54 Pulse Ox 97 08/30/23 19:54 FiO2 Intake & Output 08/30/23 08/30/23 08/31/23 06:59 18:59 06:59 Output Total 1999 1700 450 Balance -19991700 -450 Output: Urine 1999 1700 450 Other: Voiding Method Urinal Urinal Urinal # Voids 1 - Exam PHYSICAL EXAMINATION: Patient is lying in the bed comfortably, no acute distress, awake alert and oriented.. HEENT: Normocephalic. Neck is supple. Pupils reactive. Nostrils clear. Oral cavity is moist. Neck reveals no JVD, carotid bruits, or thyromegaly. CHEST EXAMINATION: Trachea is central. Symmetrical expansion. Bibasilar diminished sounds, diffuse wheezing. CARDIAC: Normal S1, S2 with no gallops. No murmurs. Irregularly irregular rhythm. ABDOMEN: Soft. Bowel sounds present. Nontender. No organomegaly. No abdominal bruits. Extremities: Trace bilateral pedal edema. No clubbing or cyanosis Neurologically awake, alert, oriented x3 with well-coordinated movements. No focal deficits noted Skin: No rash or skin lesions. Psychiatric: Coperative. Nonsuicidal, Musculoskeletal: No joint swelling or deformity. - Labs CBC & Chem 7: 08/31/23 08:15 08/31/23 08:15 Labs: Abnormal Lab Results - Last 24 Hours (Table) 08/29/23 08/30/23 08/30/23 Range/Units 10:52 05:54 06:32 WBC 15.6 H (3.8-10.6) k/uL RBC 3.86 L (4.30-5.90) m/uL Hgb 11.3 L (13.0-17.5) gm/dL Hct 34.3 L (39.0-53.0) % RDW 16.8 H (11.5-15.5) % Neutrophils # 14.5 H (1.3-7.7) k/uL Lymphocytes # 0.4 L (1.0-4.8) k/uL Sodium (137-145) mmol/L Chloride (98-107) mmol/L Carbon Dioxide (22-30) mmol/L BUN (9-20) mg/dL Creatinine (0.66-1.25) mg/dL Glucose (74-99) mg/dL POC Glucose (mg/dL) 174 H (70-110) mg/dL Calcium (8.4-10.2) mg/dL Procalcitonin 0.11 H (0.02-0.09) ng/mL 08/30/23 08/30/23 08/30/23 Range/Units 06:32 11:26 16:31 WBC (3.8-10.6) k/uL RBC (4.30-5.90) m/uL Hgb (13.0-17.5) gm/dL Hct (39.0-53.0) % RDW (11.5-15.5) % Neutrophils # (1.3-7.7) k/uL Lymphocytes # (1.0-4.8) k/uL Sodium 130 L (137-145) mmol/L Chloride 89 L (98-107) mmol/L Carbon Dioxide 32 H (22-30) mmol/L BUN 27 H (9-20) mg/dL Creatinine 0.58 L (0.66-1.25) mg/dL Glucose 161 H (74-99) mg/dL POC Glucose (mg/dL) 260 H 251 H (70-110) mg/dL Calcium 8.0 L (8.4-10.2) mg/dL Procalcitonin (0.02-0.09) ng/mL 08/30/23 Range/Units 19:52 WBC (3.8-10.6) k/uL RBC (4.30-5.90) m/uL Hgb (13.0-17.5) gm/dL Hct (39.0-53.0) % RDW (11.5-15.5) % Neutrophils # (1.3-7.7) k/uL Lymphocytes # (1.0-4.8) k/uL Sodium (137-145) mmol/L Chloride (98-107) mmol/L Carbon Dioxide (22-30) mmol/L BUN (9-20) mg/dL Creatinine (0.66-1.25) mg/dL Glucose (74-99) mg/dL POC Glucose (mg/dL) 233 H (70-110) mg/dL Calcium (8.4-10.2) mg/dL Procalcitonin (0.02-0.09) ng/mL Assessment and Plan Assessment: Generalized weakness fatigue and altered mental status with ringing in the ears/hallucinations. Possible metabolic encephalopathy. improved Hypovolemic hyponatremia Acute on chronic hypoxemic respiratory failure secondary to COPD exacerbation and mild CHF exacerbation Acute exacerbation COPD Bibasilar atelectasis/infiltrates. Possible pneumonia Leukocytosis Chronic CHF with reduced ejection fraction 40 to 45% and moderate pulmonary hypertension. Severe right ventricular dilatation. EF improved to 50 to 55% on echocardiogram 08/18/2023 Chronic atrial fibrillation on anticoagulation with Eliquis Hypertension Hyperlipidemia Diabetes type 2 [id number] Diabetic peripheral neuropathy Chronic ongoing active addiction Osteoarthritis GERD Anxiety/depression Morbid obesity BMI 37.4 DVT prophylaxis patient is already on Eliquis GI prophylaxis with Protonix Plan: Patient was given IV fluids and was continued on IV hydration normal saline. Blood pressure did not improve and IV fluids to be on hold. lactic acid level normalized. Sodium level is improving and insulin regimen for better blood sugar control. Patient will be continued on IV Solu-Medrol, DuoNebs and will be continued on antibiotics, azithromycin. procalcitonin level. Continue with oxygen supplementation and titrate down to room air. Continue with Lasix. Spironolactone and metolazone is on hold. Follow-up CBC and BMP tomorrow. Pulmonary is on board. Prognosis is guarded with multiple medical problems and comorbid conditions. Time with Patient: Greater than 30
--- NOTE | 2023-09-01 00:21 | P.PN ---
Subjective Progress Note Date: 08/31/23 Patient is a 72-year-old male with a known history of COPD on home oxygen, chronic hypoxemic respiratory failure, chronic atrial fibrillation on anticoagulation with Eliquis, hypertension, hyperlipidemia, osteoarthritis, anxiety/depression currently everyday smoker/vapor quit about 2 weeks ago presents to ER with complaints of worsening shortness of breath. Patient felt like ringing in the ear and was hallucinating and agitated. ECF staff called EMS. Patient was confused on admission. No fevers or chills. Patient was discharged from hospital on 08/24/2023 to [facility] on the leg. He was treated for acute COPD exacerbation and pneumonia and completed antibiotic course with ceftriaxone and azithromycin. Patient is currently taking Lasix, metolazone and spironolactone. On admission blood pressure was 69/45, pulse 81 respiration 14 and pulse ox 96% on 2 L oxygen via nasal cannula. EKG showed atrial fibrillation with heart rate 81 Chest x-ray showed limited study. Mild bibasilar infiltrates or atelectasis. In the ER patient was given IV fluid bolus and was continued on IV hydration and also given antibiotics in the form of ceftriaxone azithromycin. She was started on IV Solu-Medrol and DuoNebs. Laboratory data showed WBC 22.5 hemoglobin 12.8 and platelets 302 Sodium 123 potassium 2.8 chloride 172 bicarb is 37 BUN 37 creatinine 1.22 and blood sugar 135 and lactic acid 3.5 and magnesium 1.4 proBNP 1020 and troponin 0.015 and 0.025 and 0.044 Urinalysis showed 3+ glucose 08/30/2023 Patient is currently lying in bed. Awake alert and oriented x 3. Breathing status is slightly better. Still having diffuse wheezing and scattered rhonchi on exam. Patient has been afebrile. No complaints of chest pain. Leg swelling is also improved. No nausea vomiting or diarrhea. Patient is being continued on Lasix. IV fluids on hold. Blood pressures stable. Patient is on oxygen at 3 L via nasal cannula. Tolerating oral diet. Continued on IV Solu-Medrol and DuoNebs. Laboratory data showed WBC 15.6 hemoglobin 11.3 and platelets 252 Sodium 130 potassium 3.8 chloride 89 bicarb is 32 BUN 27 creatinine 0.58 and blood sugar is 161 and calcium 8.0. 08/31/2023 Patient is lying in the bed. Awake alert and oriented x 3. Breathing status is better. Still having expiratory wheezing. Requiring oxygen at 2 L via nasal cannula. No complaints of chest pain. No nausea vomiting or diarrhea. Tolerating oral diet. Cough also greatly improved. Laboratory data showed WBC 12.6 hemoglobin 11.1 and platelets 257. Sodium 128 sodium 139 potassium 3.6, chloride 86 bicarb is 3032 BUN 29 and blood sugar 282. Current medications reviewed. Objective - Vital Signs Vital signs: Vital Signs Temp 97.9 F 08/31/23 11:34 Pulse 88 08/31/23 21:04 Resp 22 08/31/23 17:01 BP 143/75 08/31/23 17:01 Pulse Ox 97 08/31/23 17:01 FiO2 Intake & Output 08/31/23 08/31/23 09/01/23 06:59 18:59 06:59 Intake Total 944 Output Total 800 2325 500 Balance -592 -1054 -500 Intake: IV 20 Invasive Line 2 10 Invasive Line 3 10 Oral 924 Output: Urine 800 2325 500 Other: Voiding Method Urinal Urinal # Voids 1 - Exam PHYSICAL EXAMINATION: Patient is lying in the bed comfortably, no acute distress, awake alert and oriented.. HEENT: Normocephalic. Neck is supple. Pupils reactive. Nostrils clear. Oral cav ity is moist. Neck reveals no JVD, carotid bruits, or thyromegaly. CHEST EXAMINATION: Trachea is central. Symmetrical expansion. Bibasilar diminished sounds, diffuse wheezing. CARDIAC: Normal S1, S2 with no gallops. No murmurs. Irregularly irregular rhythm. ABDOMEN: Soft. Bowel sounds present. Nontender. No organomegaly. No abdominal bruits. Extremities: Trace bilateral pedal edema. No clubbing or cyanosis Neurologically awake, alert, oriented x3 with well-coordinated movements. No focal deficits noted Skin: No rash or skin lesions. Psychiatric: Coperative. Nonsuicidal, Musculoskeletal: No joint swelling or deformity. - Labs CBC & Chem 7: 08/31/23 08:15 08/31/23 08:15 Labs: Abnormal Lab Results - Last 24 Hours (Table) 08/31/23 08/31/23 08/31/23 Range/Units 06:11 08:15 08:15 WBC 12.6 H (3.8-10.6) k/uL RBC 3.82 L (4.30-5.90) m/uL Hgb 11.1 L (13.0-17.5) gm/dL Hct 34.5 L (39.0-53.0) % RDW 16.8 H (11.5-15.5) % Neutrophils # 11.7 H (1.3-7.7) k/uL Lymphocytes # 0.3 L (1.0-4.8) k/uL Sodium 129 L (137-145) mmol/L Chloride 86 L (98-107) mmol/L Carbon Dioxide 32 H (22-30) mmol/L BUN 29 H (9-20) mg/dL Creatinine 0.64 L (0.66-1.25) mg/dL Glucose 282 H (74-99) mg/dL POC Glucose (mg/dL) 208 H (70-110) mg/dL Calcium 8.0 L (8.4-10.2) mg/dL 08/31/23 08/31/23 08/31/23 Range/Units 11:37 16:46 20:05 WBC (3.8-10.6) k/uL RBC (4.30-5.90) m/uL Hgb (13.0-17.5) gm/dL Hct (39.0-53.0) % RDW (11.5-15.5) % Neutrophils # (1.3-7.7) k/uL Lymphocytes # (1.0-4.8) k/uL Sodium (137-145) mmol/L Chloride (98-107) mmol/L Carbon Dioxide (22-30) mmol/L BUN (9-20) mg/dL Creatinine (0.66-1.25) mg/dL Glucose (74-99) mg/dL POC Glucose (mg/dL) 269 H 234 H 214 H (70-110) mg/dL Calcium (8.4-10.2) mg/dL Assessment and Plan Assessment: Generalized weakness fatigue and altered mental status with ringing in the ears/hallucinations. Possible metabolic encephalopathy. improved Hypovolemic hyponatremia Acute on chronic hypoxemic respiratory failure secondary to COPD exacerbation and mild CHF exacerbation Acute exacerbation COPD Bibasilar atelectasis/infiltrates. Possible pneumonia Leukocytosis Chronic CHF with reduced ejection fraction 40 to 45% and moderate pulmonary hypertension. Severe right ventricular dilatation. EF improved to 50 to 55% on echocardiogram 08/18/2023 Chronic atrial fibrillation on anticoagulation with Eliquis Hypertension Hyperlipidemia Diabetes type 2 [id number] Diabetic peripheral neuropathy Chronic ongoing active addiction Osteoarthritis GERD Anxiety/depression Morbid obesity BMI 37.4 DVT prophylaxis patient is already on Eliquis GI prophylaxis with Protonix Plan: Patient was given IV fluids and was continued on IV hydration normal saline. Blood pressure did not improve and IV fluids to be on hold. lactic acid level normalized. Sodium level is improving and insulin regimen for better blood sugar control. Patient will be continued on IV Solu-Medrol, DuoNebs and will be continued on antibiotics, azithromycin. procalcitonin level. Continue with oxygen supplementation and titrate down to room air. Continue with Lasix. Spironolactone and metolazone is on hold. Follow-up CBC and BMP tomorrow. Pulmonary is on board. Prognosis is guarded with multiple medical problems and comorbid conditions. PT OT was consulted. Patient would like to be discharged home but Still dyspneic with ambulation. Anticipate discharge in the next 24 hours. Time with Patient: Greater than 30
[2023-09-01] MEDS: HYDROcodone/APAP 10-325MG 1 EACH TAB PO PRN ×4 (00:29→13:56)
[2023-09-01] MEDS: IPRATROPIUM-ALBUTEROL 3 ML NEB INHALATION PRN ×2 (01:18→05:05)
[2023-09-01] MEDS: methylPREDNISolone SOD SUCCI 125 MG/2 ML VIAL IV SCH ×2 (04:21→09:17)
[2023-09-01 06:06] LABS: Glucose,Whole Blood 231 mg/dL (70-110)
[2023-09-01] MEDS: INSULIN ASPART (NovoLOG) 100 UNIT/ML VIAL SQ SCH ×2 (06:12→12:42)
[2023-09-01] MEDS: THEOPHYLLINE 24 HOUR 400 MG CAP.ER.24H PO SCH (06:12)
[2023-09-01] MEDS: SYMBICORT 160-4.5 MCG INHALER INHALATION SCH (08:29)
[2023-09-01] MEDS: IPRATROPIUM-ALBUTEROL 3 ML NEB INHALATION SCH ×2 (08:29→11:36)
[2023-09-01] MEDS: METOPROLOL TARTRATE 50 MG TAB PO SCH (09:17)
[2023-09-01] MEDS: APIXABAN 5 MG TAB PO SCH (09:17)
[2023-09-01] MEDS: FUROSEMIDE 40 MG TAB PO SCH (09:17)
[2023-09-01] MEDS: PANTOPRAZOLE 40 MG/10 ML VIAL IVP SCH (09:17)
[2023-09-01] MEDS: POTASSIUM CHLORIDE ER 20 MEQ TAB.ER PO SCH (09:17)
[2023-09-01] MEDS: LIDOCAINE 4% PATCH TOPICAL SCH (09:18)
[2023-09-01 09:39] VITALS: TEMP 97.7
[2023-09-01 11:30] LABS: Glucose,Whole Blood 243 mg/dL (70-110)
[2023-09-01 11:55] LABS: Anisocytosis Slight; Basophils % (A) 0 %; Eosinophils % (A) 0 %; HCT 37.6 % (39.0-53.0); HGB 11.8 gm/dL (13.0-17.5); Hypochromasia Slight; Lymphocytes # (A) 0.2 k/uL (1.0-4.8); Lymphocytes % (A) 2 %; MCH 28.4 pg (25.0-35.0); MCHC 31.5 g/dL (31.0-37.0); MCV 90.1 fL (80.0-100.0); Mean Platelet Volume 7.9; Monocytes # (A) 0.5 k/uL (0-1.0); Monocytes % (A) 4 %; Neutrophils # (A) 11.8 k/uL (1.3-7.7); Neutrophils % (A) 94 %; Platelet Count 265 k/uL (150-450); RBC 4.17 m/uL (4.30-5.90); RDW 16.9 % (11.5-15.5); WBC 12.7 k/uL (3.8-10.6)
[2023-09-01 12:17] LABS: African American GFR (CKD) >90 (>60 ml/min/1.73 sqM); Anion Gap 11 mmol/L; Blood Urea Nitrogen 30 mg/dL (9-20); Calcium 8.1 mg/dL (8.4-10.2); Carbon Dioxide 31 mmol/L (22-30); Chloride 89 mmol/L (98-107); Glucose 232 mg/dL (74-99); Non-African American GFR(CKD) >90 (>60 ml/min/1.73 sqM); Potassium 4.2 mmol/L (3.5-5.1); Sodium 131 mmol/L (137-145)
[2023-09-01 13:02] VITALS: BP 164/71; PULSE 107; RESP 22
--- NOTE | 2023-09-01 22:11 | PN ---
PROGRESS NOTE DATE OF SERVICE: 09/01/2023 SUBJECTIVE: A 72-year-old male, who was admitted a couple of days ago, for confusion, dizziness, lightheadedness, and a buzzing or ringing in his ears. He also was complaining of shortness of breath. The patient is doing well. The patient continues on oxygen at 2 L. Saturations are 99%. The patient is not receiving any IV fluids. Current labs include a white count 12.7, hemoglobin 11.8, hematocrit 37.6, platelet count 265,000. Sodium 131, potassium 4.2, chloride 89, CO2 of 31, anion gap 11, BUN 30, creatinine 0.54. Glucose is 232. Calcium is 8.1. Cultures are all negative thus far. No recent chest x-ray to report. OBJECTIVE: VITAL SIGNS: Current vital signs include temperature 97.7, heart rate 89, respiratory rate 22, blood pressure 164/71 with a mean of 102. 2 L saturation is 96%. GENERAL: He appears in no acute distress. Wearing oxygen at 2 L. HEENT: Grossly unremarkable. NECK: Supple, full range of motion. No adenopathy. Neck veins are flat. CARDIOVASCULAR: Reveals regular rhythm and rate. Heart sounds are distant. Heart rate 89 beats per minute. S1, S2 normal. No distinct murmur. LUNGS: Reveal scattered rhonchi. Breath sounds equal. No wheezes or crackles. Saturations are 96% on 2 L. ABDOMEN: Soft. Bowel sounds are heard. Obese. No masses or tenderness. EXTREMITIES: Intact. Slight edema. No cyanosis or clubbing. SKIN: Without rash. NEUROLOGIC: Brief, but nonfocal. ASSESSMENT: 1. Generalized weakness, headache, ringing in the ears, of unclear etiology. 2. Acute on chronic hypoxemic respiratory failure, secondary to an acute exacerbation of chronic obstructive pulmonary disease. 3. Chronic and ongoing tobacco dependence. 4. Congestive heart failure, with ejection fraction of 40% to 45%. 5. Chronic atrial fibrillation. 6. Essential hypertension. 7. Hyperlipidemia. 8. Diabetes mellitus, type 2 with diabetic neuropathy. 9. Morbid obesity. 10.Chronic pain. 11.Umbilical hernia. PLAN: The patient is seen today in room 369. The patient is wearing oxygen. Labs, x-rays, medications are reviewed. The patient is hoping to be discharged in the near future. His primary care physician is Dr. Jackson at [facility]. He needs to follow up with Dr. Jackson. Additional recommendations and suggestions are forthcoming. He is counseled about the importance of smoking cessation. MMODL / IJN: [id number] /
--- NOTE | 2023-09-03 06:30 | P.DS ---
Providers Date of admission: 08/28/23 20:39 Expected date of discharge: 09/01/23 Attending physician: Gisela Munoz Consults: 08/29/23 11:05 Consult Physician Routine Consulting Provider: Lucille Daniels Consult Reason/Comments: COPD exac. resp failure Do you want consulting provider notified?: Yes [facility] Course: Final diagnosis Generalized weakness fatigue and altered mental status with ringing in the ears/hallucinations. Possible metabolic encephalopathy. improved Hypovolemic hyponatremia, improved sodium is 131 Acute on chronic hypoxemic respiratory failure secondary to COPD exacerbation and mild CHF exacerbation Acute exacerbation COPD Bibasilar atelectasis/infiltrates. Possible pneumonia Leukocytosis Chronic CHF with reduced ejection fraction 40 to 45% and moderate pulmonary hypertension. Severe right ventricular dilatation. EF improved to 50 to 55% on echocardiogram 08/18/2023 Chronic atrial fibrillation on anticoagulation with Eliquis Hypertension Hyperlipidemia Diabetes type 2 [id number] Diabetic peripheral neuropathy Chronic ongoing active addiction Osteoarthritis GERD Anxiety/depression Morbid obesity BMI 37.4 DVT prophylaxis patient is already on Eliquis GI prophylaxis with Protonix Discharge disposition Patient is being discharged in a stable condition with guarded prognosis to home with home care. Patient will follow-up with Dr. Jackson in the outpatient setting upon discharge. Patient is to continue with close outpatient follow-up with pulmonary and cardiology as scheduled. Total time taken is greater than 35 minutes. Hospital course This is a 72-year-old male who was recently admitted with hypotension with generalized weakness along with hypovolemic hyponatremia being closely francisca tored. Patient was started on gentle IV hydration as patient has significant CHF history and seen and evaluated by cardiology and pulmonary. Patient chronically wears oxygen outpatient as the diuretics which are currently on hold. Patient's blood pressure improved and sodium level is trending up. Patient continues with overall weakness and Homecare being arranged. Patient was recently hospitalized and discharged to [facility] although returned 2 days later. Patient is extremely noncompliant with significant comorbidities is high risk for readmissions and has had multiple hospitalizations along with ER visits. Please refer to other consultation notes for further HPI. Currently no reports of chest pain, shortness of breath, or palpitations. Patient is afebrile. No reports of nausea or vomiting and patient is tolerating diet. Patient will be discharged home today.as mentioned previously high risk for readmissions due to significant noncompliance and comorbidities. Physical exam: Gen: This is a 72-year-old male who is awake, alert and oriented 3, well- developed, well-nourished, obese HEENT: Head is atraumatic, normocephalic. Pupils equal, round. Sclerae is anicteric. NECK: Supple. No JVD. No lymphadenopathy. No thyromegaly. LUNGS: breath sounds diminished bilaterally with forced expiratory wheezes, course rhonchinoted. No intercostal retractions. HEART: Regular rate and rhythm. No murmur. ABDOMEN: Soft. Bowel sounds are present. No masses. No tenderness. EXTREMITIES:trace pedal edema. No calf tenderness. NEUROLOGICAL: Patient is awake, alert and oriented x3. Cranial nerves 2 through 12 are grossly intact. diffusely weak Please refer to medication reconciliation sheet for a list of medications. The impression and plan of care has been dictated by Ange Becerra, Nurse Practitioner as directed. Dr. Xu MD I have performed a history and examination and MDM of this patient, discussed the same with the dictator, and agree with the dictator's assessment and plan as written ,documented as a scribe. Based on total visit time, I have performed more than 50% of the visit. Patient Condition at Discharge: Serious Plan - Discharge Summary Discharge Rx Participant: No New Discharge Prescriptions: New predniSONE See Taper PO DIRECTED #30 tab Continue Apixaban [Eliquis] 5 mg PO BID #60 tab Escitalopram [Lexapro] 5 mg PO HS metFORMIN HCL [Glucophage] 500 mg PO BID tab DULoxetine HCL [Cymbalta] 30 mg PO HS Budesonide-Formot 160-4.5 Mcg [Symbicort 160-4.5 Mcg Inhaler] 2 puff INHALATION RT-BID 30 Days #1 each Nicotine 21Mg/24Hr Patch [Habitrol] 1 patch TRANSDERM HS Insulin Glargine-Yfgn [Semglee (Yfgn) Pen] 20 units SQ HS Tamsulosin [Flomax] 0.4 mg PO HS Theophylline Anhydrous [Theophylline ER] 400 mg PO DAILY@0600 Metoprolol Tartrate [Lopressor] 50 mg PO BID tab Atorvastatin Calcium [Lipitor] 40 mg PO HS Ipratropium-Albuterol Nebulize [Duoneb 0.5 mg-3 mg/3 ml Soln] 3 ml INHALATION RT-QID each Ipratropium-Albuterol Nebulize [Duoneb 0.5 mg-3 mg/3 ml Soln] 3 ml INHALATION RT-Q2H PRN each PRN Reason: Shortness Of Breath Or Wheezing Fluticasone Nasal [place] [Flonase Nasal [place]] 2 spray EA NOSTRIL DAILY PRN #7 ml PRN Reason: Allergy Symptoms Lidocaine 4% Patch 1 patch TOPICAL DAILY #30 patch HYDROcodone/APAP 10-325MG [[place] 10-325] 1 tab PO Q4H PRN #4 tab PRN Reason: Pain diazePAM [Valium] 5 mg PO DAILY PRN #1 tab PRN Reason: Anxiety Insulin Lispro See Protocol SQ ACHS Spironolactone [Aldactone] 25 mg PO DAILY@0600 Furosemide [Lasix] 40 mg PO BID@0600,1400 Potassium Chloride ER [K-Dur 20] 20 meq PO DAILY Pregabalin [Lyrica] 75 mg PO HS guaiFENesin [Mucinex] 1,200 mg PO HS Dapagliflozin Propanediol [Farxiga] 10 mg PO DAILY@0600 Discontinued metOLazone [Zaroxolyn] 2.5 mg PO DAILY predniSONE See Taper PO DIRECTED hydrALAZINE HCL [Apresoline] 25 mg PO DAILY Discharge Medication List Apixaban [Eliquis] 5 mg PO BID #60 tab 07/08/20 [Rx] Tamsulosin [Flomax] 0.4 mg PO HS 12/07/21 [History] Theophylline Anhydrous [Theophylline ER] 400 mg PO DAILY@0600 02/18/22 [History] Escitalopram [Lexapro] 5 mg PO HS 08/29/22 [History] Metoprolol Tartrate [Lopressor] 50 mg PO BID tab 09/07/22 [Rx] metFORMIN HCL [Glucophage] 500 mg PO BID tab 09/07/22 [Rx] Atorvastatin Calcium [Lipitor] 40 mg PO HS 12/31/22 [History] DULoxetine HCL [Cymbalta] 30 mg PO HS 12/31/22 [History] Budesonide-Formot 160-4.5 Mcg [Symbicort 160-4.5 Mcg Inhaler] 2 puff INHALATION RT-BID 30 Days #1 each 08/22/23 [Rx] Fluticasone Nasal [place] [Flonase Nasal [place]] 2 spray EA NOSTRIL DAILY PRN #7 ml 08/22/23 [Rx] Ipratropium-Albuterol Nebulize [Duoneb 0.5 mg-3 mg/3 ml Soln] 3 ml INHALATION RT-Q2H PRN each 08/22/23 [Rx] Ipratropium-Albuterol Nebulize [Duoneb 0.5 mg-3 mg/3 ml Soln] 3 ml INHALATION RT-QID each 08/22/23 [Rx] Lidocaine 4% Patch 1 patch TOPICAL DAILY #30 patch 08/22/23 [Rx] HYDROcodone/APAP 10-325MG [[place] 10-325] 1 tab PO Q4H PRN #4 tab 08/24/23 [Rx] diazePAM [Valium] 5 mg PO DAILY PRN #1 tab 08/24/23 [Rx] Dapagliflozin Propanediol [Farxiga] 10 mg PO DAILY@0600 08/28/23 [History] Furosemide [Lasix] 40 mg PO BID@0600,1400 08/28/23 [History] Insulin Glargine-Yfgn [Semglee (Yfgn) Pen] 20 units SQ HS 08/28/23 [History] Insulin Lispro See Protocol SQ ACHS 08/28/23 [History] Nicotine 21Mg/24Hr Patch [Habitrol] 1 patch TRANSDERM HS 08/28/23 [History] Potassium Chloride ER [K-Dur 20] 20 meq PO DAILY 08/28/23 [History] Pregabalin [Lyrica] 75 mg PO HS 08/28/23 [History] Spironolactone [Aldactone] 25 mg PO DAILY@0600 08/28/23 [History] guaiFENesin [Mucinex] 1,200 mg PO HS 08/28/23 [History] predniSONE See Taper PO DIRECTED #30 tab 08/31/23 [Rx] Follow up Appointment(s)/Referral(s): [facility], [NON-STAFF] - 1 Week (home care will call tomorrow to set up appointment ) Elver Jackson MD [Primary Care Provider] - 1-2 days (call and set up appointment, will make follow-up to see you at home) Tang Jones MD [STAFF PHYSICIAN] - 09/14/23 9:15 am (you need to go to this appointment or they will no longer see you as a patient per payroll secretary ) Patient Instructions/Handouts: COPD (Chronic Obstructive Pulmonary Disease) (DC), Hypotension (DC), Tinnitus (GEN) Discharge Disposition: HOME WITH HOME HEALTH SERVICES
== END 2023-09-01 14:05 | disposition home health service (06) | DRG 291 ==
LOC: EC 17:47 → 3SCARD 20:39
PROVIDERS: ADMIT Hospitalist; ATTEND Hospitalist
DX: I11.0 Hypertensive heart disease with heart failure (principal); G93.41 Metabolic encephalopathy; J96.21 Acute and chronic respiratory failure with hypoxia; I50.23 Acute on chronic systolic (congestive) heart failure; J44.1 Chronic obstructive pulmonary disease with (acute) exacerbation; E87.1 Hypo-osmolality and hyponatremia; I48.20 Chronic atrial fibrillation, unspecified; E86.1 Hypovolemia; E78.5 Hyperlipidemia, unspecified; K21.9 Gastro-esophageal reflux disease without esophagitis; M19.90 Unspecified osteoarthritis, unspecified site; E66.01 Morbid (severe) obesity due to excess calories; Z68.37 Body mass index [BMI] 37.0-37.9, adult; K42.9 Umbilical hernia without obstruction or gangrene; I27.20 Pulmonary hypertension, unspecified; H93.13 Tinnitus, bilateral; G89.29 Other chronic pain; F41.9 Anxiety disorder, unspecified; F32.A Depression, unspecified; F17.200 Nicotine dependence, unspecified, uncomplicated; E11.42 Type 2 diabetes mellitus with diabetic polyneuropathy; Z99.81 Dependence on supplemental oxygen; Z79.899 Other long term (current) drug therapy; Z79.84 Long term (current) use of oral hypoglycemic drugs; Z79.51 Long term (current) use of inhaled steroids; Z79.4 Long term (current) use of insulin; Z79.01 Long term (current) use of anticoagulants; Z88.0 Allergy status to penicillin; Z88.8 Allergy status to other drugs, medicaments and biological substances; Z88.1 Allergy status to other antibiotic agents; Z87.01 Personal history of pneumonia (recurrent)
CPT/HCPCS: 36415; 71045; 80048; 80053; 81003; 83605; 83735; 83880; 84100; 84132; 84145; 84484; 85025; 85610; 85730; 93005; 94640; 94760; 96361; 96365; 96367; 96368; 96375; 99291

== ENCOUNTER 2023-09-02 12:59 | Inpatient (IN) | payer MEDICARE, OTHER ==
[2023-09-02] MEDS ORDERED: MENTHOL-ZINC OXIDE OINT 113 GM TUBE TOPICAL PRN (14:58)
--- NOTE | 2023-09-02 15:57 | XR ---
EXAMINATION TYPE: XR chest 2V DATE OF EXAM: 09/02/2023 COMPARISON: 08/28/2023. HISTORY: Weakness. TECHNIQUE: Frontal and lateral views of the chest are obtained. IMPRESSION: The cardiac silhouette is mildly enlarged and the pulmonary vessels are within normal limits. There i s no focal area of consolidation. Question small bilateral pleural effusions on the lateral evaluation best visualized.
--- NOTE | 2023-09-02 17:26 | ED ---
Weakness HPI - General Chief complaint: Weakness Stated complaint: Weakness Time Seen by Provider: 09/02/23 14:40 Source: patient Mode of arrival: EMS Limitations: no limitations - History of Present Illness Initial comments: 72-year-old male well known to the emergency department who presents with weakness. He has a history of COPD, A. fib. Was recently hospitalized at our facility and discharged home yesterday. States he was discharged home with home health care. He was refusing transfer to a rehab facility. Patient subsequently went home and sat in his chair. He was defecating and urinating on himself. He was too weak to get up and ambulate. Presents again today stating that he does feel he needs to be in a nursing facility. He did not take any of his medications today. Denies any chest pain. Has chronic shortness of breath. No other alleviating, precipitating or modified factors - Related Data Home Medications Medication Instructions Recorded Confirmed Tamsulosin [Flomax] 0.4 mg PO HS 12/07/21 09/02/23 Theophylline Anhydrous 400 mg PO DAILY@0600 02/18/22 09/02/23 [Theophylline ER] Escitalopram [Lexapro] 5 mg PO HS 08/29/22 09/02/23 Atorvastatin Calcium [Lipitor] 40 mg PO HS 12/31/22 09/02/23 DULoxetine HCL [Cymbalta] 30 mg PO HS 12/31/22 09/02/23 Dapagliflozin Propanediol [Farxiga] 10 mg PO DAILY@0600 08/28/23 09/02/23 Furosemide [Lasix] 40 mg PO BID@0600,1400 08/28/23 09/02/23 Insulin Glargine-Yfgn [Semglee 20 units SQ HS 08/28/23 09/02/23 (Yfgn) Pen] Insulin Lispro See Protocol SQ ACHS 08/28/23 09/02/23 Nicotine 21Mg/24Hr Patch [Habitrol] 1 patch TRANSDERM HS 08/28/23 09/02/23 Potassium Chloride ER [K-Dur 20] 20 meq PO DAILY 08/28/23 09/02/23 Pregabalin [Lyrica] 75 mg PO HS 08/28/23 09/02/23 Spironolactone [Aldactone] 25 mg PO DAILY@0600 08/28/23 09/02/23 guaiFENesin [Mucinex] 1,200 mg PO HS 08/28/23 09/02/23 Previous Rx's Medication Instructions Recorded Apixaban [Eliquis] 5 mg PO BID #60 tab 07/08/20 Metoprolol Tartrate [Lopressor] 50 mg PO BID tab 09/07/22 metFORMIN HCL [Glucophage] 500 mg PO BID tab 09/07/22 Budesonide-Formot 160-4.5 Mcg 2 puff INHALATION RT-BID 30 Days 08/22/23 [Symbicort 160-4.5 Mcg Inhaler] #1 each Fluticasone Nasal [place] [Flonase 2 spray EA NOSTRIL DAILY PRN #7 ml 08/22/23 Nasal [place]] Ipratropium-Albuterol Nebulize 3 ml INHALATION RT-Q2H PRN each 08/22/23 [Duoneb 0.5 mg-3 mg/3 ml Soln] Ipratropium-Albuterol Nebulize 3 ml INHALATION RT-QID each 08/22/23 [Duoneb 0.5 mg-3 mg/3 ml Soln] Lidocaine 4% Patch 1 patch TOPICAL DAILY #30 patch 08/22/23 HYDROcodone/APAP 10-325MG [[place] 1 tab PO Q4H PRN #4 tab 08/24/23 10-325] diazePAM [Valium] 5 mg PO DAILY PRN #1 tab 08/24/23 predniSONE See Taper PO DIRECTED #30 tab 08/31/23 Allergies Allergy/AdvReac Type Severity Reaction Status Date / Time ANJU Inhibitors Allergy Unknown - Verified 09/02/23 14:53 per [facility] doxycycline Allergy Anaphylaxis Verified 09/02/23 14:53 Penicillins Allergy Anaphylaxis, Verified 09/02/23 14:53 Seizure Review of Systems ROS Statement: Those systems with pertinent positive or pertinent negative responses have been documented in the HPI. ROS Other: All systems not noted in ROS Statement are negative. Past Medical History Past Medical History: Atrial Fibrillation, Asthma, COPD, Diabetes Mellitus, GERD/Reflux, Hyperlipidemia, Hypertension, Osteoarthritis (OA), Pneumonia Additional Past Medical History / Comment(s): Afib RVR, home oxygen prn, bron chitis, pt states he is on metformin to prevent becoming diabetic, neuropathy bilateral feet/L hand, chronic pain back,/bilateral hips/knees/elbows and shoulders, L heel pain, FALLS, cataracts. 11/23/22 ex-spouse phylicia Waterman reports history is accurate to her knowledge. current adominal hernia noted History of Any Multi-Drug Resistant Organisms: None Reported Past Surgical History: Appendectomy Additional Past Surgical History / Comment(s): Colonoscopy Past Anesthesia/Blood Transfusion Reactions: No Reported Reaction Past Psychological History: Unable to Obtain, Anxiety, Depression Smoking Status: Former smoker Past Alcohol Use History: None Reported Past Drug Use History: None Reported - Past Family History Father Family Medical History: Congestive Heart Failure (CHF), COPD Additional Family Medical History / Comment(s): Father was an alcoholic but was able to quit drinking Mother Family Medical History: Congestive Heart Failure (CHF), COPD Additional Family Medical History / Comment(s): Mother was an alcoholic. Daughter(s) Additional Family Medical History / Comment(s): Liver cancer General Exam Limitations: no limitations General appearance: alert, in no apparent distress Head exam: Present: atraumatic, normocephalic, normal inspection Eye exam: Present: normal appearance, PERRL, EOMI. Absent: scleral icterus, conjunctival injection, periorbital swelling ENT exam: Present: normal exam, mucous membranes moist Neck exam: Present: normal inspection. Absent: tenderness, meningismus, lymphadenopathy Respiratory exam: Present: accessory muscle use, decreased breath sounds. Absent: respiratory distress, wheezes, rales, rhonchi, stridor Cardiovascular Exam: Present: normal rhythm, tachycardia, normal heart sounds. Absent: systolic murmur, diastolic murmur, rubs, gallop, clicks GI/Abdominal exam: Present: soft, normal bowel sounds. Absent: distended, tenderness, guarding, rebound, rigid exam: Present: other (soiled) Extremities exam: Present: normal inspection, full ROM, normal capillary refill. Absent: tenderness, pedal edema, joint swelling, calf tenderness Back exam: Present: normal inspection Neurological exam: Present: alert, oriented X3, CN II-XII intact Psychiatric exam: Present: normal affect, normal mood Skin exam: Present: warm, dry, intact, normal color. Absent: rash Course Vital Signs 09/02/23 09/02/23 09/02/23 13:12 17:54 18:02 Temperature 98.5 F Pulse Rate 102 H 105 H 105 H Respiratory 20 Rate Blood Pressure 108/69 O2 Sat by Pulse 96 Oximetry Medical Decision Making - Medical Decision Making Was pt. sent in by a medical professional or institution (EUGENE George, CRIME SPECIALIST, urgent care, hospital, or intermediate...) When possible be specific @ -No Did you speak to anyone other than the patient for history (EMS, parent, family, police, friend...)? What history was obtained from this source @ -No Did you review nursing and triage notes (agree or disagree)? Why? @ -I reviewed and agree with nursing and triage notes Were old charts reviewed (outside hosp., previous admission, EMS record, old EKG, old radiological studies, urgent care reports/EKG's, intermediate records)? Report findings @ -I reviewed the discharge summary from earlier today Differential Diagnosis (chest pain, altered mental status, abdominal pain women, abdominal pain men, vaginal bleeding, weakness, fever, dyspnea, syncope, headache, dizziness, GI bleed, back pain, seizure, CVA, palpatations, mental health, musculoskeletal)? @ -[Differential Weakness: Hypoglycemia, shock, sepsis, hyponatremia, anemia, infection, OR, ETOH, adverse medicine reaction, overdose, stroke, this is not meant to be an all-inclusive list. EKG interpreted by me (3pts min.). @ -Yes and demonstrates A. fib with a rate of 83. QRS 105. QTC of 396. No acute ST segment elevations or depressions X-rays interpreted by me (1pt min.). @ -Yes and demonstrates no acute process CT interpreted by me (1pt min.). @ -None done U/S interpreted by me (1pt. min.). @ -None done What testing was considered but not performed or refused? (CT, X-rays, U/S, labs)? Why? @ -None What meds were considered but not given or refused? Why? @ -None Did you discuss the management of the patient with other professionals (professionals i.e. EUGENE George, CRIME SPECIALIST, lab, RT, psych nurse, healthcare social worker, buccaro, teacher, financial services officer, rifle case repairer)? Give summary @ -Spoke with Ange from [facility] will admit the patient Was smoking cessation discussed for >3mins.? @ -No Was critical care preformed (if so, how long)? @ -No Were there social determinants of health that impacted care today? How? (Homelessness, low income, unemployed, alcoholism, drug addiction, transportation, low edu. Level, literacy, decrease access to med. care, nursing home, rehab)? @ -No Was there de-escalation of care discussed even if they declined (Discuss DNR or withdrawal of care, Hospice)? DNR status @ -No What co-morbidities impacted this encounter? (DM, HTN, Smoking, COPD, CAD, Cancer, CVA, ARF, Chemo, Hep., AIDS, mental health diagnosis, sleep apnea, morbid obesity)? @ -A. fib, COPD, chronic pain Was patient admitted / discharged? Hospital course, mention meds given and route, prescriptions, significant lab abnormalities, going to OR and other pertinent info. @ -Minute. Upon arrival patient was placed into room 20. Thorough history and physical exam was performed. Patient disheveled and covered in feces and urine. Laboratory studies are obtained. I did speak with the admitting team who was agreeable to accepting the patient. Case management will be placed on consult as patient likely requires nursing facility placement Undiagnosed new problem with uncertain prognosis? @ -No Drug Therapy requiring intensive monitoring for toxicity (Heparin, Nitro, Insulin, Cardizem)? @ -No Were any procedures done? @ -No Diagnosis/symptom? @ -Chronic generalized weakness and inability to ambulate Acute, or Chronic, or Acute on Chronic? @ -Acute on chronic Uncomplicated (without systemic symptoms) or Complicated (systemic symptoms)? @ -complicated Side effects of treatment? @ -No Exacerbation, Progression, or Severe Exacerbation? @ -No Poses a threat to life or bodily function? How? (Chest pain, USA, OR, pneumonia, PE, COPD, DKA, ARF, appy, cholecystitis, CVA, Diverticulitis, Homicidal, Suicidal, threat to staff... and all critical care pts) @ -No - Lab Data Result diagrams: 09/02/23 17:11 09/02/23 17:11 Lab Results 09/02/23 09/02/23 09/02/23 Range/Units 17:11 17:11 17:11 WBC 17.0 H (3.8-10.6) k/uL RBC 4.35 (4.30-5.90) m/uL Hgb 12.5 L (13.0-17.5) gm/dL Hct 39.1 (39.0-53.0) % MCV 89.9 (80.0-100.0) fL MCH 28.8 (25.0-35.0) pg MCHC 32.1 (31.0-37.0) g/dL RDW 17.2 H (11.5-15.5) % Plt Count 309 (150-450) k/uL MPV 8.0 Neutrophils % 86 % Lymphocytes % 7 % Monocytes % 6 % Eosinophils % 1 % Basophils % 0 % Neutrophils # 14.6 H (1.3-7.7) k/uL Lymphocytes # 1.2 (1.0-4.8) k/uL Monocytes # 1.0 (0-1.0) k/uL Eosinophils # 0.1 (0-0.7) k/uL Basophils # 0.0 (0-0.2) k/uL Hypochromasia Slight Anisocytosis Slight PT 10.3 (10.0-12.5) sec INR 0.9 (<1.2) APTT 21.7 L (22.0-30.0) sec Sodium 133 L (137-145) mmol/L Potassium 3.7 (3.5-5.1) mmol/L Chloride 87 L (98-107) mmol/L Carbon Dioxide 36 H (22-30) mmol/L Anion Gap 6 mmol/L BUN 24 H (9-20) mg/dL Creatinine 0.58 L (0.66-1.25) mg/dL Est GFR (CKD-EPI)AfAm >90 (>60 ml/min/1.73 sqM) Est GFR (CKD-EPI)NonAf >90 (>60 ml/min/1.73 sqM) Glucose 98 (74-99) mg/dL Lactic Ac Sepsis Rflx Plasma Lactic Acid Wes (0.7-2.0) mmol/L Calcium 7.9 L (8.4-10.2) mg/dL Magnesium 1.3 L (1.6-2.3) mg/dL Total Bilirubin 1.0 (0.2-1.3) mg/dL AST 18 (17-59) U/L ALT 25 (4-49) U/L Alkaline Phosphatase 62 (38-126) U/L Troponin I (0.000-0.034) ng/mL Total Protein 5.4 L (6.3-8.2) g/dL Albumin 3.3 L (3.5-5.0) g/dL 09/02/23 09/02/23 09/02/23 Range/Units 17:11 17:11 17:47 WBC (3.8-10.6) k/uL RBC (4.30-5.90) m/uL Hgb (13.0-17.5) gm/dL Hct (39.0-53.0) % MCV (80.0-100.0) fL MCH (25.0-35.0) pg MCHC (31.0-37.0) g/dL RDW (11.5-15.5) % Plt Count (150-450) k/uL MPV Neutrophils % % Lymphocytes % % Monocytes % % Eosinophils % % Basophils % % Neutrophils # (1.3-7.7) k/uL Lymphocytes # (1.0-4.8) k/uL Monocytes # (0-1.0) k/uL Eosinophils # (0-0.7) k/uL Basophils # (0-0.2) k/uL Hypochromasia Anisocytosis PT (10.0-12.5) sec INR (<1.2) APTT (22.0-30.0) sec Sodium (137-145) mmol/L Potassium (3.5-5.1) mmol/L Chloride (98-107) mmol/L Carbon Dioxide (22-30) mmol/L Anion Gap mmol/L BUN (9-20) mg/dL Creatinine (0.66-1.25) mg/dL Est GFR (CKD-EPI)AfAm (>60 ml/min/1.73 sqM) Est GFR (CKD-EPI)NonAf (>60 ml/min/1.73 sqM) Glucose (74-99) mg/dL Lactic Ac Sepsis Rflx Y Plasma Lactic Acid Wes 2.2 H* (0.7-2.0) mmol/L Calcium (8.4-10.2) mg/dL Magnesium (1.6-2.3) mg/dL Total Bilirubin (0.2-1.3) mg/dL AST (17-59) U/L ALT (4-49) U/L Alkaline Phosphatase (38-126) U/L Troponin I 0.024 (0.000-0.034) ng/mL Total Protein (6.3-8.2) g/dL Albumin (3.5-5.0) g/dL Disposition Clinical Impression: Weakness Disposition: ADMITTED IP TO THIS HOSP Condition: Stable Is patient prescribed a controlled substance at d/c from ED?: No Time of Disposition: 17:27 Decision to Admit Reason: Admit from EC Decision Date: 09/02/23 Decision Time: 17:27
[2023-09-02] MEDS ORDERED: IPRATROPIUM-ALBUTEROL 3 ML NEB INHALATION STA (17:27)
[2023-09-02 17:34] LABS: Anisocytosis Slight; Basophils % (A) 0 %; Eosinophils # (A) 0.1 k/uL (0-0.7); Eosinophils % (A) 1 %; HCT 39.1 % (39.0-53.0); HGB 12.5 gm/dL (13.0-17.5); Hypochromasia Slight; Lymphocytes # (A) 1.2 k/uL (1.0-4.8); Lymphocytes % (A) 7 %; MCH 28.8 pg (25.0-35.0); MCHC 32.1 g/dL (31.0-37.0); MCV 89.9 fL (80.0-100.0); Monocytes % (A) 6 %; Neutrophils # (A) 14.6 k/uL (1.3-7.7); Neutrophils % (A) 86 %; Platelet Count 309 k/uL (150-450); RBC 4.35 m/uL (4.30-5.90); RDW 17.2 % (11.5-15.5)
[2023-09-02 17:55] LABS: ALT 25 U/L (4-49); AST 18 U/L (17-59); African American GFR (CKD) >90 (>60 ml/min/1.73 sqM); Albumin 3.3 g/dL (3.5-5.0); Alkaline Phosphatase 62 U/L (38-126); Anion Gap 6 mmol/L; Blood Urea Nitrogen 24 mg/dL (9-20); Calcium 7.9 mg/dL (8.4-10.2); Chloride 87 mmol/L (98-107); Glucose 98 mg/dL (74-99); Magnesium 1.3 mg/dL (1.6-2.3); Non-African American GFR(CKD) >90 (>60 ml/min/1.73 sqM); Potassium 3.7 mmol/L (3.5-5.1); Sodium 133 mmol/L (137-145); Total Protein 5.4 g/dL (6.3-8.2)
[2023-09-02 18:06] LABS: Carbon Dioxide 36 mmol/L (22-30)
[2023-09-02] MEDS ORDERED: NALOXONE 0.4 MG/ML 1 ML VIAL IV PRN (18:06)
[2023-09-02 18:10] LABS: INR 0.9 (<1.2); Prothrombin Time 10.3 sec (10.0-12.5)
[2023-09-02 18:18] LABS: Partial Thromboplastin Time 21.7 sec (22.0-30.0)
[2023-09-02] MEDS ORDERED: MAGNESIUM SULFATE-D5W PMX 1 GM in DEXTROSE/WATER 1 100ML.BAG IVPB ONE (19:13)
[2023-09-02] MEDS: HYDROcodone/APAP 10-325MG 1 EACH TAB PO PRN (23:21)
[2023-09-02] MEDS: NYSTATIN 100,000 UNIT/GM POWD 15 GM TOPICAL SCH ×3 (23:22→23:24)
[2023-09-02] MEDS: ATORVASTATIN 40 MG TAB PO SCH (23:23)
[2023-09-02] MEDS: METOPROLOL TARTRATE 50 MG TAB PO SCH (23:23)
[2023-09-02] MEDS: TAMSULOSIN 0.4 MG CAP.ER.24H PO SCH (23:23)
[2023-09-02] MEDS: guaiFENesin 600 MG TABLET.ER PO SCH (23:23)
[2023-09-02] MEDS: APIXABAN 5 MG TAB PO SCH (23:23)
[2023-09-02] MEDS: PREGABALIN 75 MG CAP PO SCH (23:23)
[2023-09-02] MEDS: metFORMIN 500 MG TAB PO SCH (23:23)
[2023-09-02] MEDS: NICOTINE 21MG/24HR PATCH TRANSDERM SCH (23:23)
[2023-09-02 23:29] LABS: Glucose,Whole Blood 176 mg/dL (70-110)
[2023-09-02] MEDS: INSULIN DETEMIR (LEVEMIR) 100 UNIT/ML SYR SQ SCH (23:50)
[2023-09-02] MEDS: ESCITALOPRAM 5 MG TAB PO SCH (23:50)
[2023-09-02] MEDS: DULoxetine HCL 30 MG CAPSULE.DR PO SCH (23:50)
[2023-09-03] MEDS: IPRATROPIUM-ALBUTEROL 3 ML NEB INHALATION PRN (00:51)
[2023-09-03] MEDS: HYDROcodone/APAP 10-325MG 1 EACH TAB PO PRN ×5 (04:04→21:11)
[2023-09-03] MEDS: DAPAGLIFLOZIN PROPANEDIOL 10 MG TABLET PO SCH (05:48)
[2023-09-03] MEDS: SPIRONOLACTONE 25 MG TAB PO SCH (05:48)
[2023-09-03] MEDS: FUROSEMIDE 40 MG TAB PO SCH ×2 (05:48→14:23)
[2023-09-03] MEDS: THEOPHYLLINE 24 HOUR 400 MG CAP.ER.24H PO SCH (05:48)
[2023-09-03 06:10] LABS: Glucose,Whole Blood 139 mg/dL (70-110)
[2023-09-03] MEDS: METOPROLOL TARTRATE 50 MG TAB PO SCH ×2 (08:07→21:10)
[2023-09-03] MEDS: POTASSIUM CHLORIDE ER 20 MEQ TAB.ER PO SCH (08:07)
[2023-09-03] MEDS: metFORMIN 500 MG TAB PO SCH ×2 (08:08→21:11)
[2023-09-03] MEDS: APIXABAN 5 MG TAB PO SCH ×2 (08:09→21:11)
[2023-09-03] MEDS: NYSTATIN 100,000 UNIT/GM POWD 15 GM TOPICAL SCH ×3 (08:47→21:13)
[2023-09-03] MEDS ORDERED: FLUTICASONE 50MCG/SPRAY NASAL 16GM EA NOSTRIL PRN (09:00)
[2023-09-03 09:18] LABS: Basophils # (A) 0.02 X 10*3/uL (0.00-0.10); Basophils % (A) 0.2 %; Eosinophils # (A) 0 X 10*3/uL (0.04-0.35); Eosinophils % (A) 0 %; HCT 34.8 % (39.6-50.0); HGB 11.1 g/dL (13.0-17.0); Lymphocytes # (A) 1.45 X 10*3/uL (0.90-5.00); Lymphocytes % (A) 11.8 %; MCH 28.7 pg (27.0-32.0); MCHC 31.9 g/dL (32.0-37.0); MCV 89.9 FL (80.0-97.0); Mean Platelet Volume 10.8 FL (9.5-12.2); Monocytes # (A) 0.91 X 10*3/uL (0.20-1.00); Monocytes % (A) 7.4 %; NRBC Per 100 WBC 0 X 10*3/uL (0.00-0.01); Neutrophils # (A) 9.53 X 10*3/uL (1.80-7.70); Neutrophils % (A) 77.1 %; Platelet Count 254 X 10*3/uL (140-440); RBC 3.87 X 10*6/uL (4.40-5.60); RDW 16.6 % (11.5-14.5); WBC 12.34 X 10*3/uL (4.50-10.00)
[2023-09-03 09:22] LABS: Blood Urea Nitrogen 21.6 mg/dL (9.0-27.0); Carbon Dioxide 37.8 mmol/L (21.6-31.8); Chloride 92 mmol/L (96-109); Glucose 135 mg/dL (70-110); Potassium 3.5 mmol/L (3.5-5.5); Sodium 138 mmol/L (135-145)
[2023-09-03] MEDS: IPRATROPIUM-ALBUTEROL 3 ML NEB INHALATION SCH ×4 (09:32→21:00)
[2023-09-03] MEDS: SYMBICORT 160-4.5 MCG INHALER INHALATION SCH ×2 (09:32→21:00)
[2023-09-03 12:04] LABS: Glucose,Whole Blood 82 mg/dL (70-110)
--- NOTE | 2023-09-03 15:51 | P.HPIM ---
History of Present Illness H&P Date: 09/03/23 Chief Complaint: Weakness 72-year-old male well known to the emergency department who presents with weakness. He has a history of COPD, A. fib. Was recently hospitalized at our facility and discharged home yesterday. States he was discharged home with home health care. He was refusing transfer to a rehab facility. Patient subsequently went home and sat in his chair. He was defecating and urinating on himself. He was too weak to get up and ambulate. Presents again today stating that he does feel he needs to be in a nursing facility. He did not take any of his medications today. Denies any chest pain. Has chronic shortness of breath. No other alleviating, precipitating or modified factors Upon arrival to ED patient was found to be disheveled and covered in feces and urine EKG reveals atrial fibrillation with heart rate of [address] elevation or depression Blood work completed views a WBC of 17, hemoglobin of 12.5, platelet count of 309, sodium 133 AND 2.7, BUN/creatinine of 25/0.58, lactic acid of 2.2 and troponin at 0.0-4 Chest x-ray reported as cardiac silhouette mildly enlarged but pulmonary vessels within normal limits; questionable small bilateral pleural effusion on lateral films Patient is admitted for weakness and debility and adult failure to thrive; we will need consult with case management for discharge Past Medical History Past Medical History: Atrial Fibrillation, Asthma, COPD, Diabetes Mellitus, GERD/Reflux, Hyperlipidemia, Hypertension, Osteoarthritis (OA), Pneumonia Additional Past Medical History / Comment(s): Afib RVR, home oxygen prn, bronchitis, pt states he is on metformin to prevent becoming diabetic, neuropathy bilateral feet/L hand, chronic pain back,/bilateral hips/knees/elbows and shoulders, L heel pain, FALLS, cataracts. 11/23/22 ex-spouse phylicia Waterman reports history is accurate to her knowledge. current adominal hernia noted History of Any Multi-Drug Resistant Organisms: None Reported Past Surgical History: Appendectomy Additional Past Surgical History / Comment(s): Colonoscopy Past Anesthesia/Blood Transfusion Reactions: No Reported Reaction Past Psychological History: Unable to Obtain, Anxiety, Depression Smoking Status: Former smoker Past Alcohol Use History: None Reported Past Drug Use History: None Reported - Past Family History Father Family Medical History: Congestive Heart Failure (CHF), COPD Additional Family Medical History / Comment(s): Father was an alcoholic but was able to quit drinking Mother Family Medical History: Congestive Heart Failure (CHF), COPD Additional Family Medical History / Comment(s): Mother was an alcoholic. Daughter(s) Additional Family Medical History / Comment(s): Liver cancer Medications and Allergies Home Medications Medication Instructions Recorded Confirmed Type Apixaban [Eliquis] 5 mg PO BID #60 tab 07/08/20 09/02/23 Rx Tamsulosin [Flomax] 0.4 mg PO HS 12/07/21 09/02/23 History Theophylline Anhydrous 400 mg PO DAILY@0600 02/18/22 09/02/23 History [Theophylline ER] Escitalopram [Lexapro] 5 mg PO HS 08/29/22 09/02/23 History Metoprolol Tartrate [Lopressor] 50 mg PO BID tab 09/07/22 09/02/23 Rx metFORMIN HCL [Glucophage] 500 mg PO BID tab 09/07/22 09/02/23 Rx Atorvastatin Calcium [Lipitor] 40 mg PO HS 12/31/22 09/02/23 History DULoxetine HCL [Cymbalta] 30 mg PO HS 12/31/22 09/02/23 History Budesonide-Formot 160-4.5 Mcg 2 puff INHALATION RT-BID 30 Days 08/22/23 09/02/23 Rx [Symbicort 160-4.5 Mcg Inhaler] #1 each Fluticasone Nasal [place] [Flonase 2 spray EA NOSTRIL DAILY PRN #7 ml 08/22/23 09/02/23 Rx Nasal [place]] Ipratropium-Albuterol Nebulize 3 ml INHALATION RT-Q2H PRN each 08/22/23 09/02/23 Rx [Duoneb 0.5 mg-3 mg/3 ml Soln] Ipratropium-Albuterol Nebulize 3 ml INHALATION RT-QID each 08/22/23 09/02/23 Rx [Duoneb 0.5 mg-3 mg/3 ml Soln] Lidocaine 4% Patch 1 patch TOPICAL DAILY #30 patch 08/22/23 09/02/23 Rx HYDROcodone/APAP 10-325MG [[place] 1 tab PO Q4H PRN #4 tab 08/24/23 09/02/23 Rx 10-325] diazePAM [Valium] 5 mg PO DAILY PRN #1 tab 08/24/23 09/02/23 Rx Dapagliflozin Propanediol [Farxiga] 10 mg PO DAILY@0600 08/28/23 09/02/23 History Furosemide [Lasix] 40 mg PO BID@0600,1400 08/28/23 09/02/23 History Insulin Glargine-Yfgn [Semglee 20 units SQ HS 08/28/23 09/02/23 History (Yfgn) Pen] Insulin Lispro See Protocol SQ ACHS 08/28/23 09/02/23 History Nicotine 21Mg/24Hr Patch [Habitrol] 1 patch TRANSDERM HS 08/28/23 09/02/23 History Potassium Chloride ER [K-Dur 20] 20 meq PO DAILY 08/28/23 09/02/23 History Pregabalin [Lyrica] 75 mg PO HS 08/28/23 09/02/23 History Spironolactone [Aldactone] 25 mg PO DAILY@0600 08/28/23 09/02/23 History guaiFENesin [Mucinex] 1,200 mg PO HS 08/28/23 09/02/23 History predniSONE See Taper PO DIRECTED #30 tab 08/31/23 09/02/23 Rx Allergies Allergy/AdvReac Type Severity Reaction Status Date / Time ANJU Inhibitors Allergy Unknown - Verified 09/02/23 14:53 per [facility] doxycycline Allergy Anaphylaxis Verified 09/02/23 14:53 Penicillins Allergy Anaphylaxis, Verified 09/02/23 14:53 Seizure Physical Exam Vitals: Vital Signs Temp Pulse Pulse Resp BP BP Pulse Ox 09/03/23 09:33 97 09/03/23 07:12 98.2 F 94 19 168/66 94 L 09/03/23 01:56 97.8 F 84 18 102/67 97 09/03/23 01:02 92 09/03/23 00:54 92 09/02/23 18:02 105 H 09/02/23 17:54 105 H 09/02/23 13:12 98.5 F 102 H 20 108/69 96 Intake and Output 09/02/23 09/03/23 09/03/23 22:59 06:59 14:59 Intake Total 118 Output Total 650 Balance -650 118 Intake: Oral 118 Output: Urine 650 Other: Voiding Method Urinal # Voids 2 Weight 113.398 kg General appearance: alert, in no apparent distress Head exam: Present: atraumatic, normocephalic, normal inspection Eye exam: Present: normal appearance, PERRL, EOMI. Absent: scleral icterus, conjunctival injection, periorbital swelling Neck exam: Present: normal inspection. Absent: tenderness, meningismus, lymphadenopathy Respiratory exam: Present: accessory muscle use, decreased breath sounds. Absent: respiratory distress, wheezes, rales, rhonchi, stridor Cardiovascular Exam: Present: normal rhythm, tachycardia, normal heart sounds. Absent: systolic murmur, diastolic murmur, rubs, gallop, clicks GI/Abdominal exam: Present: soft, normal bowel sounds. Absent: distended, tenderness, guarding, rebound, rigid exam: Present: other (soiled) Extremities exam: Present: normal inspection, full ROM, normal capillary refill. Absent: tenderness, pedal edema, joint swelling, calf tenderness Neurological exam: Present: alert, oriented X3, CN II-XII intact Skin exam: Present: warm, dry, intact, normal color. Absent: rash Results CBC & Chem 7: 09/03/23 05:47 09/03/23 05:47 Labs: Abnormal Lab Results - Last 24 Hours (Table) 09/02/23 09/02/23 09/02/23 Range/Units 17:11 17:11 17:11 WBC 17.0 H (3.8-10.6) k/uL RBC (4.40-5.60) X 10*6/uL Hgb 12.5 L (13.0-17.5) gm/dL Hct (39.6-50.0) % MCHC (32.0-37.0) g/dL RDW 17.2 H (11.5-15.5) % Immature Gran # (0.00-0.04) X 10*3/uL Neutrophils # 14.6 H (1.3-7.7) k/uL Eosinophils # (0.04-0.35) X 10*3/uL APTT 21.7 L (22.0-30.0) sec Sodium 133 L (137-145) mmol/L Chloride 87 L (98-107) mmol/L Carbon Dioxide 36 H (22-30) mmol/L BUN 24 H (9-20) mg/dL Creatinine 0.58 L (0.66-1.25) mg/dL BUN/Creatinine Ratio (12.00-20.00) Ratio Glucose (70-110) mg/dL POC Glucose (mg/dL) (70-110) mg/dL Plasma Lactic Acid Wes (0.7-2.0) mmol/L Calcium 7.9 L (8.4-10.2) mg/dL Magnesium 1.3 L (1.6-2.3) mg/dL Total Protein 5.4 L (6.3-8.2) g/dL Albumin 3.3 L (3.5-5.0) g/dL 09/02/23 09/02/23 09/03/23 Range/Units 17:11 23:26 05:47 WBC 12.34 H (3.8-10.6) k/uL RBC 3.87 L (4.40-5.60) X 10*6/uL Hgb 11.1 L (13.0-17.5) gm/dL Hct 34.8 L (39.6-50.0) % MCHC 31.9 L (32.0-37.0) g/dL RDW 16.6 H (11.5-15.5) % Immature Gran # 0.43 H (0.00-0.04) X 10*3/uL Neutrophils # 9.53 H (1.3-7.7) k/uL Eosinophils # 0 L (0.04-0.35) X 10*3/uL APTT (22.0-30.0) sec Sodium (137-145) mmol/L Chloride (98-107) mmol/L Carbon Dioxide (22-30) mmol/L BUN (9-20) mg/dL Creatinine (0.66-1.25) mg/dL BUN/Creatinine Ratio (12.00-20.00) Ratio Glucose (70-110) mg/dL POC Glucose (mg/dL) 176 H (70-110) mg/dL Plasma Lactic Acid Wes 2.2 H* (0.7-2.0) mmol/L Calcium (8.4-10.2) mg/dL Magnesium (1.6-2.3) mg/dL Total Protein (6.3-8.2) g/dL Albumin (3.5-5.0) g/dL 09/03/23 09/03/23 Range/Units 05:47 06:09 WBC (3.8-10.6) k/uL RBC (4.40-5.60) X 10*6/uL Hgb (13.0-17.5) gm/dL Hct (39.6-50.0) % MCHC (32.0-37.0) g/dL RDW (11.5-15.5) % Immature Gran # (0.00-0.04) X 10*3/uL Neutrophils # (1.3-7.7) k/uL Eosinophils # (0.04-0.35) X 10*3/uL APTT (22.0-30.0) sec Sodium (137-145) mmol/L Chloride 92 L (98-107) mmol/L Carbon Dioxide 37.8 H (22-30) mmol/L BUN (9-20) mg/dL Creatinine (0.66-1.25) mg/dL BUN/Creatinine Ratio 36.00 H (12.00-20.00) Ratio Glucose 135 H (70-110) mg/dL POC Glucose (mg/dL) 139 H (70-110) mg/dL Plasma Lactic Acid Wes (0.7-2.0) mmol/L Calcium 8.0 L (8.4-10.2) mg/dL Magnesium (1.6-2.3) mg/dL Total Protein (6.3-8.2) g/dL Albumin (3.5-5.0) g/dL Thrombosis Risk Factor Assmnt - Choose All That Apply Any of the Below Risk Factors Present?: Yes Each Factor Represents 1 point: Abnormal pulmonary function (COPD), Obesity (BMI >25) Each Risk Factor Represents 2 Points: Age 61-74 years Other congenital or acquired thrombophilia - If yes, enter type in comment: No Thrombosis Risk Factor Assessment Total Risk Factor Score: 4 Thrombosis Risk Factor Assessment Level: Moderate Risk Assessment and Plan Assessment: 1. Weakness/generalized debility versus metabolic encephalopathy related to acute renal injury - Patient will be placed on slow IV fluid hydration -- We will consult PT/OT for further evaluation -- Case management for discharge planning 2. Leukocytosis with elevated lactic acid level; chest x-ray is negative for any acute process; we will order urinalysis with culture and sensitivity -- We will monitor CBC, CRP and pro-calcitonin 3. Mild KAIS[facility]; increase fluid intake; monitor renal function and electrolytes; avoid nephrotoxins and hypotension 4. Chronic hypoxic respiratory failure; continue with home oxygen therapy 5. Chronic CHF with reduced EF of 40-45% - Echocardiogram reveals slight ventricular dilation 6. Chronic atrial fibrillation; continue with systemic anticoagulation; patient remains rate controlled 7. Hypertension; metoprolol 50 g twice a day 8. Hyperlipidemia; Lipitor 40 mg 2 daily at bedtime 9. Diabetes mellitus type 2 with long-term insulin use DVT prophylaxis; SCDs CODE STATUS; full code
[2023-09-03 16:41] LABS: Glucose,Whole Blood 164 mg/dL (70-110)
[2023-09-03 19:16] LABS: Glucose,Whole Blood 197 mg/dL (70-110)
[2023-09-03] MEDS: INSULIN DETEMIR (LEVEMIR) 100 UNIT/ML SYR SQ SCH (21:10)
[2023-09-03] MEDS: DULoxetine HCL 30 MG CAPSULE.DR PO SCH (21:10)
[2023-09-03] MEDS: NICOTINE 21MG/24HR PATCH TRANSDERM SCH (21:10)
[2023-09-03] MEDS: TAMSULOSIN 0.4 MG CAP.ER.24H PO SCH (21:11)
[2023-09-03] MEDS: ATORVASTATIN 40 MG TAB PO SCH (21:11)
[2023-09-03] MEDS: ESCITALOPRAM 5 MG TAB PO SCH (21:11)
[2023-09-03] MEDS: guaiFENesin 600 MG TABLET.ER PO SCH (21:11)
[2023-09-03] MEDS: PREGABALIN 75 MG CAP PO SCH (21:11)
[2023-09-04] MEDS: HYDROcodone/APAP 10-325MG 1 EACH TAB PO PRN ×6 (00:54→23:49)
[2023-09-04] MEDS: IPRATROPIUM-ALBUTEROL 3 ML NEB INHALATION PRN ×2 (01:11→21:07)
[2023-09-04] MEDS: FUROSEMIDE 40 MG TAB PO SCH (05:47)
[2023-09-04] MEDS: DAPAGLIFLOZIN PROPANEDIOL 10 MG TABLET PO SCH (05:47)
[2023-09-04] MEDS: SPIRONOLACTONE 25 MG TAB PO SCH (05:47)
[2023-09-04] MEDS: THEOPHYLLINE 24 HOUR 400 MG CAP.ER.24H PO SCH (05:47)
[2023-09-04 06:11] LABS: Glucose,Whole Blood 70 mg/dL (70-110)
[2023-09-04 06:39] LABS: Glucose,Whole Blood 122 mg/dL (70-110)
[2023-09-04] MEDS: metFORMIN 500 MG TAB PO SCH ×2 (08:08→20:13)
[2023-09-04] MEDS: METOPROLOL TARTRATE 50 MG TAB PO SCH ×2 (08:08→20:13)
[2023-09-04] MEDS: APIXABAN 5 MG TAB PO SCH ×2 (08:08→20:13)
[2023-09-04] MEDS: NYSTATIN 100,000 UNIT/GM POWD 15 GM TOPICAL SCH ×3 (08:08→20:15)
[2023-09-04] MEDS: POTASSIUM CHLORIDE ER 20 MEQ TAB.ER PO SCH (08:08)
[2023-09-04] MEDS: IPRATROPIUM-ALBUTEROL 3 ML NEB INHALATION SCH ×4 (09:02→18:16)
[2023-09-04] MEDS: SYMBICORT 160-4.5 MCG INHALER INHALATION SCH ×2 (09:02→18:16)
[2023-09-04 10:27] LABS: HCT 34.2 % (39.6-50.0); MCH 28.6 pg (27.0-32.0); MCHC 32.2 g/dL (32.0-37.0); MCV 89.1 FL (80.0-97.0); Mean Platelet Volume 10.7 FL (9.5-12.2); NRBC Per 100 WBC 0 X 10*3/uL (0.00-0.01); Platelet Count 235 X 10*3/uL (140-440); RBC 3.84 X 10*6/uL (4.40-5.60); RDW 16.6 % (11.5-14.5); WBC 13.21 X 10*3/uL (4.50-10.00)
[2023-09-04 10:28] LABS: Basophils # (A) 0.03 X 10*3/uL (0.00-0.10); Basophils % (A) 0.2 %; Eosinophils # (A) 0 X 10*3/uL (0.04-0.35); Eosinophils % (A) 0 %; Lymphocytes # (A) 1.71 X 10*3/uL (0.90-5.00); Lymphocytes % (A) 12.9 %; Monocytes # (A) 0.79 X 10*3/uL (0.20-1.00); Neutrophils # (A) 10.34 X 10*3/uL (1.80-7.70); Neutrophils % (A) 78.3 %
--- NOTE | 2023-09-04 10:32 | XR ---
EXAMINATION TYPE: XR chest 1V portable DATE OF EXAM: 09/04/2023 10:15 AM CLINICAL INDICATION:Male, 72 years old with history of chest pain; COMPARISON: Chest radiographs from 09/02/2023. TECHNIQUE: XR chest 1V portable Frontal view of the chest. FINDINGS: Lungs/Pleura: No evidence of focal consolidation or pneumothorax. Blunting of the costophrenic angles is present. Pulmonary vascularity: Pulmonary vascular congestion. Heart/mediastinum: Cardiomediastinal silhouette is enlarged and stable. Musculoskeletal: No acute osseous pathology. IMPRESSION: Cardiomegaly, pulmonary vascular congestion and bilateral pleural effusions. Correlate with BNP for c ongestive heart failure.
[2023-09-04 10:38] LABS: Carbon Dioxide 38.1 mmol/L (21.6-31.8); Chloride 89 mmol/L (96-109); Glucose 122 mg/dL (70-110); Potassium 3.3 mmol/L (3.5-5.5); Sodium 136 mmol/L (135-145)
[2023-09-04 10:39] LABS: Calcium 7.5 mg/dL (8.7-10.3)
[2023-09-04 11:10] LABS: Glucose,Whole Blood 178 mg/dL (70-110)
[2023-09-04] MEDS ORDERED: METOPROLOL TARTRATE 25 MG TAB PO STA (11:16)
[2023-09-04 12:11] LABS: African American GFR (CKD) >90 (>60 ml/min/1.73 sqM); Blood Urea Nitrogen 21 mg/dL (9-20); Calcium 7.1 mg/dL (8.4-10.2); Chloride 82 mmol/L (98-107); Glucose 100 mg/dL (74-99); Non-African American GFR(CKD) >90 (>60 ml/min/1.73 sqM); Potassium 3.1 mmol/L (3.5-5.1); Sodium 129 mmol/L (137-145)
[2023-09-04 12:17] LABS: Anion Gap 10 mmol/L
[2023-09-04 12:44] LABS: Carbon Dioxide 37 mmol/L (22-30)
--- NOTE | 2023-09-04 13:45 | P.CRDCN ---
History of Present Illness Consult date: 09/04/23 Consult reason: chest pain History of present illness: This is Erick Loyd NP, I'm dictating on behalf of Dr. Shaikh's H&P and A&P The patient was interviewed and examined. HPI: Patient is a pleasant 72-year-old male who presented to hospital with COPD exacerbation. Patient has a pertinent past medical history that includes COPD, atrial fibrillation, asthma, diabetes, GERD, hyperlipidemia, hypertension, osteoarthritis, and pneumonia. Patient was discharged from our facility 2 days ago with home health care. Apparently he was refusing to move out of the chair, and felt too weak to get up and ambulate. He reports after presentation back to the emergency department that he is not strong enough to be home and needs to be placed in a nursing facility. In the emergency department the patient was found to be in atrial fibrillation with a controlled ventricular rate, no ST changes or T-wave inversions noted. Patient was subsequently admitted for treatment. While the patient was on the floor, he started complaining of chest pain. Repeat EKG shows atrial fibrillation with rapid ventricular response, heart rate 105. Nursing had a troponin drawn which was negative. At the bedside patient reports that he has been having some trouble breathing recently. He otherwise at this time is denying chest pain, heart palpitations, dizziness, and syncope. ROS: [No fever, chills, or rigors] [no cough, phlegm, or expectoration] [no nausea, vomiting, or diarrhea] [no hematuria, dysuria] [no musculoskelatal complaints] [no strokes or seizures] [no skin lesions] EXAMINATION: GENERAL: Well-appearing, well-nourished and in no acute distress. NECK: Supple without JVD or thyromegaly. LUNGS: Breath sounds demonstrate expiratory wheezing bilaterally. Respiration equal and unlabored. No rales or rhonchi. HEART: Irregular rate and rhythm without murmurs, rubs or gallops. S1 and S2 heard. EXTREMITIES: Normal range of motion, no edema. No clubbing or cyanosis. Peripheral pulses intact and strong. REVIEW OF LABS, ECG & MEDICAL DATA: LABS: White count 13.2, hemoglobin 11.0, platelets 235, sodium 129, potassium 3.1, BUN 21, creatinine 0.54, calcium 7.1, troponin-0.024, less than 0.012 EKG: Atrial fibrillation with rapid ventricular response IMAGING: Chest x-ray dated 09/02/2023 demonstrates the cardiac silhouette is mil dly enlarged and the pulmonary vessels are within normal limits, there is no focal area of consolidation, question small bilateral pleural effusions on the lateral evaluation best visualized. Chest x-ray dated 09/04/2023 demonstrates cardiomegaly, pulmonary vascular congestion and bilateral pleural effusions, with BNP for congestive heart failure. VITALS: Temp 98.4, pulse 112, respirations 22, blood pressure 146/67, O2 saturation 95% on 4 L IMPRESSION: 1. Acute exacerbation COPD 2. Mild exacerbation of congestive heart failure 3. Chest pain 4. Failure to thrive 5. Inability to perform ADLs PLAN: Increase metoprolol 200 mg twice a day. Give a one time dose of 25 mg of metoprolol now. Continue medical management for placement. No further recommendations from a cardiology standpoint. Thank you for the consult and allowing us to participate in the care of this patient. Past Medical History Past Medical History: Atrial Fibrillation, Asthma, COPD, Diabetes Mellitus, GERD/Reflux, Hyperlipidemia, Hypertension, Osteoarthritis (OA), Pneumonia Additional Past Medical History / Comment(s): Afib RVR, home oxygen prn, bronchitis, pt states he is on metformin to prevent becoming diabetic, neuropathy bilateral feet/L hand, chronic pain back,/bilateral hips/knees/elbows and shoulders, L heel pain, FALLS, cataracts. 11/23/22 ex-spouse phylicia Waterman reports history is accurate to her knowledge. current adominal hernia noted History of Any Multi-Drug Resistant Organisms: None Reported Past Surgical History: Appendectomy Additional Past Surgical History / Comment(s): Colonoscopy Past Anesthesia/Blood Transfusion Reactions: No Reported Reaction Past Psychological History: Unable to Obtain, Anxiety, Depression Smoking Status: Former smoker Past Alcohol Use History: None Reported Past Drug Use History: None Reported - Past Family History Father Family Medical History: Congestive Heart Failure (CHF), COPD Additional Family Medical History / Comment(s): Father was an alcoholic but was able to quit drinking Mother Family Medical History: Congestive Heart Failure (CHF), COPD Additional Family Medical History / Comment(s): Mother was an alcoholic. Daughter(s) Additional Family Medical History / Comment(s): Liver cancer Medications and Allergies Home Medications Medication Instructions Recorded Confirmed Type Apixaban [Eliquis] 5 mg PO BID #60 tab 07/08/20 09/02/23 Rx Tamsulosin [Flomax] 0.4 mg PO HS 12/07/21 09/02/23 History Theophylline Anhydrous 400 mg PO DAILY@0600 02/18/22 09/02/23 History [Theophylline ER] Escitalopram [Lexapro] 5 mg PO HS 08/29/22 09/02/23 History Metoprolol Tartrate [Lopressor] 50 mg PO BID tab 09/07/22 09/02/23 Rx metFORMIN HCL [Glucophage] 500 mg PO BID tab 09/07/22 09/02/23 Rx Atorvastatin Calcium [Lipitor] 40 mg PO HS 12/31/22 09/02/23 History DULoxetine HCL [Cymbalta] 30 mg PO HS 12/31/22 09/02/23 History Budesonide-Formot 160-4.5 Mcg 2 puff INHALATION RT-BID 30 Days 08/22/23 09/02/23 Rx [Symbicort 160-4.5 Mcg Inhaler] #1 each Fluticasone Nasal [place] [Flonase 2 spray EA NOSTRIL DAILY PRN #7 ml 08/22/23 09/02/23 Rx Nasal [place]] Ipratropium-Albuterol Nebulize 3 ml INHALATION RT-Q2H PRN each 08/22/23 09/02/23 Rx [Duoneb 0.5 mg-3 mg/3 ml Soln] Ipratropium-Albuterol Nebulize 3 ml INHALATION RT-QID each 08/22/23 09/02/23 Rx [Duoneb 0.5 mg-3 mg/3 ml Soln] Lidocaine 4% Patch 1 patch TOPICAL DAILY #30 patch 08/22/23 09/02/23 Rx HYDROcodone/APAP 10-325MG [[place] 1 tab PO Q4H PRN #4 tab 08/24/23 09/02/23 Rx 10-325] diazePAM [Valium] 5 mg PO DAILY PRN #1 tab 08/24/23 09/02/23 Rx Dapagliflozin Propanediol [Farxiga] 10 mg PO DAILY@0600 08/28/23 09/02/23 History Furosemide [Lasix] 40 mg PO BID@0600,1400 08/28/23 09/02/23 History Insulin Glargine-Yfgn [Semglee 20 units SQ HS 08/28/23 09/02/23 History (Yfgn) Pen] Insulin Lispro See Protocol SQ ACHS 08/28/23 09/02/23 History Nicotine 21Mg/24Hr Patch [Habitrol] 1 patch TRANSDERM HS 08/28/23 09/02/23 History Potassium Chloride ER [K-Dur 20] 20 meq PO DAILY 08/28/23 09/02/23 History Pregabalin [Lyrica] 75 mg PO HS 08/28/23 09/02/23 History Spironolactone [Aldactone] 25 mg PO DAILY@0600 08/28/23 09/02/23 History guaiFENesin [Mucinex] 1,200 mg PO HS 08/28/23 09/02/23 History predniSONE See Taper PO DIRECTED #30 tab 08/31/23 09/02/23 Rx Allergies Allergy/AdvReac Type Severity Reaction Status Date / Time ANJU Inhibitors Allergy Unknown - Verified 09/02/23 14:53 per [facility] doxycycline Allergy Anaphylaxis Verified 09/02/23 14:53 Penicillins Allergy Anaphylaxis, Verified 09/02/23 14:53 Seizure Physical Exam Vitals: Vital Signs Temp Pulse Pulse Resp BP Pulse Ox 09/04/23 13:18 97.5 F L 85 21 115/78 99 09/04/23 12:24 79 09/04/23 12:13 79 09/04/23 07:13 98.4 F 112 H 22 146/67 95 09/04/23 01:22 74 09/04/23 01:13 72 09/04/23 00:32 98.3 F 67 18 144/78 98 09/03/23 21:13 92 09/03/23 21:02 90 09/03/23 19:13 97.4 F L 90 19 135/78 97 09/03/23 16:04 82 09/03/23 15:55 88 09/03/23 13:40 97.6 F 88 17 104/69 97 Intake and Output 09/03/23 09/04/23 09/04/23 22:59 06:59 14:59 Output Total 200 350 Balance -200 -350 Output: Urine 200 350 Other: Voiding Method Urinal # Bowel Movements 1 Results 09/04/23 03:24 09/04/23 11:04 Cardiac Enzymes 09/04/23 Range/Units 11:04 Troponin I <0.012 (0.000-0.034) ng/mL CBC 09/04/23 Range/Units 03:24 WBC 13.21 H (4.50-10.00) X 10*3/uL RBC 3.84 L (4.40-5.60) X 10*6/uL Hgb 11.0 L (13.0-17.0) g/dL Hct 34.2 L (39.6-50.0) % Plt Count 235 (140-440) X 10*3/uL Comprehensive Metabolic Panel 09/04/23 09/04/23 Range/Units 03:24 11:04 Sodium 136 129 L (135-145) mmol/L Potassium 3.3 L 3.1 L (3.5-5.5) mmol/L Chloride 89 L 82 L (96-109) mmol/L Carbon Dioxide 38.1 H 37 H (21.6-31.8) mmol/L BUN 20.0 21 H (9.0-27.0) mg/dL Creatinine 0.8 0.54 L (0.6-1.5) mg/dL Glucose 122 H 100 H (70-110) mg/dL Calcium 7.5 L 7.1 L (8.7-10.3) mg/dL Current Medications Generic Name Dose Route Start Last Admin Trade Name Freq PRN Reason Stop Dose Admin Hydrocodone Bitart/Acetaminophen 1 each 09/02/23 22:26 09/04/23 09:52 Hydrocodone/Apap 10-325mg 1 Each Tab PO 1 each Q4H PRN Administration Pain Albuterol/Ipratropium 3 ml 09/02/23 22:26 09/04/23 01:11 Ipratropium-Albuterol 3 Ml Neb INHALATION 3 ml RT-Q2H PRN Administration Shortness Of Breath Or Wheezing Albuterol/Ipratropium 3 ml 09/03/23 08:00 09/04/23 12:12 Ipratropium-Albuterol 3 Ml Neb INHALATION 3 ml RT-QID [facility] Administration Apixaban 5 mg 09/02/23 22:30 09/04/23 08:08 Apixaban 5 Mg Tab PO 5 mg BID ALESSIO Administration Protocol Atorvastatin Calcium 40 mg 09/02/23 22:30 09/03/23 21:11 Atorvastatin 40 Mg Tab PO 40 mg HS [facility] Administration Budesonide/Formoterol Fumarate 2 puff 09/03/23 08:00 09/04/23 09:02 Symbicort 160-4.5 Mcg Inhaler INHALATION Not Given RT-BID [facility] Calamine/Phenol 1 applic 09/02/23 14:58 Menthol-Zinc Oxide Oint 113 Gm Tube TOPICAL TID PRN Skin Irritation Protocol Dapagliflozin 10 mg 09/03/23 06:00 09/04/23 05:47 Dapagliflozin Propanediol 10 Mg Tablet PO 10 mg DAILY@0600 [facility] Administration Diazepam 5 mg 09/02/23 22:26 Diazepam 5 Mg Tab PO DAILY PRN Anxiety Duloxetine HCl 30 mg 09/02/23 22:30 09/03/23 21:10 Duloxetine Hcl 30 Mg Capsule.Dr PO 30 mg HS [facility] Administration Escitalopram Oxalate 5 mg 09/02/23 22:30 09/03/23 21:11 Escitalopram 5 Mg Tab PO 5 mg HS [facility] Administration Fluticasone Propionate 2 spray 09/03/23 09:00 Fluticasone 50mcg/[place] Nasal 16gm EA NOSTRIL DAILY PRN Allergy Symptoms Furosemide 40 mg 09/03/23 06:00 09/04/23 05:47 Furosemide 40 Mg Tab PO 40 mg BID@0600,1400 [facility] Administration Guaifenesin 1,200 mg 09/02/23 22:30 09/03/23 21:11 Guaifenesin 600 Mg Tablet.Er PO 1,200 mg HS [facility] Administration Insulin Detemir 20 unit 09/02/23 22:45 09/03/23 21:10 Insulin Detemir (Levemir) 100 Unit/Ml Syr SQ 20 unit HS [facility] Administration Metformin HCl 500 mg 09/02/23 22:30 09/04/23 08:08 Metformin 500 Mg Tab PO 500 mg BID [facility] Administration Metoprolol Tartrate 100 mg 09/04/23 21:00 Metoprolol Tartrate 50 Mg Tab PO BID [facility] Naloxone HCl 0.2 mg 09/02/23 18:06 Naloxone 0.4 Mg/Ml 1 Ml Vial IV Q2M PRN Opioid Reversal Nicotine 1 patch 09/02/23 22:30 09/03/23 21:10 Nicotine 21mg/24hr Patch TRANSDERM 1 patch HS [facility] Administration Nystatin 1 applic 09/02/23 19:00 09/04/23 08:08 Nystatin 100,000 Unit/Gm Powd 15 Gm TOPICAL 1 applic TID [facility] Administration Protocol Potassium Chloride 20 meq 09/03/23 09:00 09/04/23 08:08 Potassium Chloride Er 20 Meq Tab.Er PO 20 meq DAILY [facility] Administration Pregabalin 75 mg 09/02/23 22:30 09/03/23 21:11 Pregabalin 75 Mg Cap PO 75 mg HS [facility] Administration Spironolactone 25 mg 09/03/23 06:00 09/04/23 05:47 Spironolactone 25 Mg Tab PO 25 mg DAILY@0600 [facility] Administration Tamsulosin HCl 0.4 mg 09/02/23 22:30 09/03/23 21:11 Tamsulosin 0.4 Mg Cap.Er.24h PO 0.4 mg HS [facility] Administration Theophylline 400 mg 09/03/23 06:00 09/04/23 05:47 Theophylline 24 Hour 400 Mg Cap.Er.24h PO 400 mg DAILY@0600 [facility] Administration Intake and Output 09/03/23 09/04/23 09/04/23 22:59 06:59 14:59 Output Total 200 350 Balance -200 -350 Output: Urine 200 350 Other: Voiding Method Urinal # Bowel Movements 1 09/04/23 03:24 09/04/23 11:04
[2023-09-04] MEDS: FUROSEMIDE 10 MG/ML 4 ML VIAL IV SCH ×2 (15:29→23:49)
[2023-09-04 16:05] LABS: Glucose,Whole Blood 152 mg/dL (70-110)
--- NOTE | 2023-09-04 17:10 | P.PN ---
Subjective Progress Note Date: 09/04/23 72-year-old male well known to the emergency department who presents with weakness. He has a history of COPD, A. fib. Was recently hospitalized at our facility and discharged home yesterday. States he was discharged home with home health care. He was refusing transfer to a rehab facility. Patient sub sequently went home and sat in his chair. He was defecating and urinating on himself. He was too weak to get up and ambulate. Presents again today stating that he does feel he needs to be in a nursing facility. He did not take any of his medications today. Denies any chest pain. Has chronic shortness of breath. No other alleviating, precipitating or modified factors Upon arrival to ED patient was found to be disheveled and covered in feces and urine EKG reveals atrial fibrillation with heart rate of [address] elevation or depression Blood work completed views a WBC of 17, hemoglobin of 12.5, platelet count of 309, sodium 133 AND 2.7, BUN/creatinine of 25/0.58, lactic acid of 2.2 and troponin at 0.0-4 Chest x-ray reported as cardiac silhouette mildly enlarged but pulmonary vessels within normal limits; questionable small bilateral pleural effusion on lateral films Patient is admitted for weakness and debility and adult failure to thrive; we will need consult with case management for discharge Objective - Vital Signs Vital signs: Vital Signs Temp 97.5 F L 09/04/23 13:18 Pulse 85 09/04/23 13:18 Resp 21 09/04/23 13:18 BP 115/78 09/04/23 13:18 Pulse Ox 99 09/04/23 13:18 FiO2 Intake & Output 09/03/23 09/04/23 09/04/23 18:59 06:59 18:59 Intake Total 118 Output Total 575 350 Balance -457 -350 Intake: Oral 118 Output: Urine 575 350 Other: Voiding Method Urinal # Bowel Movements 1 - Exam General appearance: alert, in no apparent distress Head exam: Present: atraumatic, normocephalic, normal inspection Eye exam: Present: normal appearance, PERRL, EOMI. Absent: scleral icterus, conjunctival injection, periorbital swelling Neck exam: Present: normal inspection. Absent: tenderness, meningismus, lymphadenopathy Respiratory exam: Present: accessory muscle use, decreased breath sounds. Absent: respiratory distress, wheezes, rales, rhonchi, stridor Cardiovascular Exam: Present: normal rhythm, tachycardia, normal heart sounds. Absent: systolic murmur, diastolic murmur, rubs, gallop, clicks GI/Abdominal exam: Present: soft, normal bowel sounds. Absent: distended, tenderness, guarding, rebound, rigid exam: Present: other (soiled) Extremities exam: Present: normal inspection, full ROM, normal capillary refill. Absent: tenderness, pedal edema, joint swelling, calf tenderness Neurological exam: Present: alert, oriented X3, CN II-XII intact Skin exam: Present: warm, dry, intact, normal color. Absent: rash - Labs CBC & Chem 7: 09/04/23 03:24 09/04/23 11:04 Labs: Abnormal Lab Results - Last 24 Hours (Table) 09/03/23 09/03/23 09/04/23 Range/Units 16:39 19:15 03:24 WBC 13.21 H (4.50-10.00) X 10*3/uL RBC 3.84 L (4.40-5.60) X 10*6/uL Hgb 11.0 L (13.0-17.0) g/dL Hct 34.2 L (39.6-50.0) % RDW 16.6 H (11.5-14.5) % Immature Gran # 0.34 H (0.00-0.04) X 10*3/uL Neutrophils # 10.34 H (1.80-7.70) X 10*3/uL Eosinophils # 0 L (0.04-0.35) X 10*3/uL Sodium (137-145) mmol/L Potassium (3.5-5.5) mmol/L Chloride (96-109) mmol/L Carbon Dioxide (21.6-31.8) mmol/L BUN (9-20) mg/dL Creatinine (0.66-1.25) mg/dL BUN/Creatinine Ratio (12.00-20.00) Ratio Glucose (70-110) mg/dL POC Glucose (mg/dL) 164 H 197 H (70-110) mg/dL Calcium (8.7-10.3) mg/dL 09/04/23 09/04/23 09/04/23 Range/Units 03:24 06:38 11:04 WBC (4.50-10.00) X 10*3/uL RBC (4.40-5.60) X 10*6/uL Hgb (13.0-17.0) g/dL Hct (39.6-50.0) % RDW (11.5-14.5) % Immature Gran # (0.00-0.04) X 10*3/uL Neutrophils # (1.80-7.70) X 10*3/uL Eosinophils # (0.04-0.35) X 10*3/uL Sodium 129 L (137-145) mmol/L Potassium 3.3 L 3.1 L (3.5-5.5) mmol/L Chloride 89 L 82 L (96-109) mmol/L Carbon Dioxide 38.1 H 37 H (21.6-31.8) mmol/L BUN 21 H (9-20) mg/dL Creatinine 0.54 L (0.66-1.25) mg/dL BUN/Creatinine Ratio 25.00 H (12.00-20.00) Ratio Glucose 122 H 100 H (70-110) mg/dL POC Glucose (mg/dL) 122 H (70-110) mg/dL Calcium 7.5 L 7.1 L (8.7-10.3) mg/dL 09/04/23 Range/Units 11:09 WBC (4.50-10.00) X 10*3/uL RBC (4.40-5.60) X 10*6/uL Hgb (13.0-17.0) g/dL Hct (39.6-50.0) % RDW (11.5-14.5) % Immature Gran # (0.00-0.04) X 10*3/uL Neutrophils # (1.80-7.70) X 10*3/uL Eosinophils # (0.04-0.35) X 10*3/uL Sodium (137-145) mmol/L Potassium (3.5-5.5) mmol/L Chloride (96-109) mmol/L Carbon Dioxide (21.6-31.8) mmol/L BUN (9-20) mg/dL Creatinine (0.66-1.25) mg/dL BUN/Creatinine Ratio (12.00-20.00) Ratio Glucose (70-110) mg/dL POC Glucose (mg/dL) 178 H (70-110) mg/dL Calcium (8.7-10.3) mg/dL Assessment and Plan Assessment: 1. Weakness/generalized debility versus metabolic encephalopathy related to acute renal injury - Patient will be placed on slow IV fluid hydration -- We will consult PT/OT for further evaluation -- Case management for discharge planning 2. Leukocytosis with elevated lactic acid level; chest x-ray is negative for any acute process; we will order urinalysis with culture and sensitivity -- We will monitor CBC, CRP and pro-calcitonin 3. Mild [facility]; increase fluid intake; monitor renal function and electrolytes; avoid nephrotoxins and hypotension 4. Chronic hypoxic respiratory failure; continue with home oxygen therapy 5. Chronic CHF with reduced EF of 40-45% - Echocardiogram reveals slight ventricular dilation 6. Chronic atrial fibrillation; continue with systemic anticoagulation; patient remains rate controlled 7. Hypertension; metoprolol 50 g twice a day 8. Hyperlipidemia; Lipitor 40 mg 2 daily at bedtime 9. Diabetes mellitus type 2 with long-term insulin use DVT prophylaxis; SCDs CODE STATUS; full code
[2023-09-04] MEDS: AZITHROMYCIN 500 MG in SODIUM CHLORIDE 0.9% 250 ML IVPB SCH (17:39)
[2023-09-04] MEDS: methylPREDNISolone SOD SUCCI 125 MG/2 ML VIAL IV SCH ×2 (17:39→23:48)
[2023-09-04 20:02] LABS: Glucose,Whole Blood 275 mg/dL (70-110)
[2023-09-04] MEDS: DULoxetine HCL 30 MG CAPSULE.DR PO SCH (20:13)
[2023-09-04] MEDS: TAMSULOSIN 0.4 MG CAP.ER.24H PO SCH (20:13)
[2023-09-04] MEDS: INSULIN ASPART (NovoLOG) 100 UNIT/ML VIAL SQ SCH (20:13)
[2023-09-04] MEDS: guaiFENesin 600 MG TABLET.ER PO SCH (20:13)
[2023-09-04] MEDS: ATORVASTATIN 40 MG TAB PO SCH (20:13)
[2023-09-04] MEDS: NICOTINE 21MG/24HR PATCH TRANSDERM SCH (20:14)
[2023-09-04] MEDS: PREGABALIN 75 MG CAP PO SCH (20:14)
[2023-09-04] MEDS: ESCITALOPRAM 5 MG TAB PO SCH (20:14)
[2023-09-04] MEDS: INSULIN DETEMIR (LEVEMIR) 100 UNIT/ML SYR SQ SCH (20:14)
[2023-09-05] MEDS: IPRATROPIUM-ALBUTEROL 3 ML NEB INHALATION PRN (00:32)
[2023-09-05] MEDS: HYDROcodone/APAP 10-325MG 1 EACH TAB PO PRN ×5 (04:19→20:49)
[2023-09-05 05:26] LABS: Glucose,Whole Blood 300 mg/dL (70-110)
[2023-09-05] MEDS: methylPREDNISolone SOD SUCCI 125 MG/2 ML VIAL IV SCH ×3 (05:49→17:52)
[2023-09-05] MEDS: THEOPHYLLINE 24 HOUR 400 MG CAP.ER.24H PO SCH (05:50)
[2023-09-05] MEDS: DAPAGLIFLOZIN PROPANEDIOL 10 MG TABLET PO SCH (05:50)
[2023-09-05] MEDS: INSULIN ASPART (NovoLOG) 100 UNIT/ML VIAL SQ SCH ×4 (05:50→20:47)
[2023-09-05] MEDS: SPIRONOLACTONE 25 MG TAB PO SCH (05:50)
[2023-09-05] MEDS: metFORMIN 500 MG TAB PO SCH ×2 (07:32→20:48)
[2023-09-05] MEDS: POTASSIUM CHLORIDE ER 20 MEQ TAB.ER PO SCH (07:32)
[2023-09-05] MEDS: METOPROLOL TARTRATE 50 MG TAB PO SCH ×2 (07:32→20:48)
[2023-09-05] MEDS: APIXABAN 5 MG TAB PO SCH ×2 (07:32→20:49)
[2023-09-05] MEDS: NYSTATIN 100,000 UNIT/GM POWD 15 GM TOPICAL SCH ×3 (08:08→20:50)
[2023-09-05] MEDS: FUROSEMIDE 10 MG/ML 4 ML VIAL IV SCH ×2 (08:19→16:18)
[2023-09-05 08:57] LABS: Basophils # (A) 0.03 X 10*3/uL (0.00-0.10); Basophils % (A) 0.2 %; Eosinophils # (A) 0 X 10*3/uL (0.04-0.35); Eosinophils % (A) 0 %; HCT 36.2 % (39.6-50.0); HGB 11.7 g/dL (13.0-17.0); Lymphocytes # (A) 0.67 X 10*3/uL (0.90-5.00); Lymphocytes % (A) 4.2 %; MCH 28.3 pg (27.0-32.0); MCHC 32.3 g/dL (32.0-37.0); MCV 87.4 FL (80.0-97.0); Mean Platelet Volume 10.5 FL (9.5-12.2); Monocytes # (A) 0.42 X 10*3/uL (0.20-1.00); Monocytes % (A) 2.7 %; NRBC Per 100 WBC 0 X 10*3/uL (0.00-0.01); Neutrophils # (A) 14.45 X 10*3/uL (1.80-7.70); Neutrophils % (A) 91.2 %; Platelet Count 231 X 10*3/uL (140-440); RBC 4.14 X 10*6/uL (4.40-5.60); RDW 16.6 % (11.5-14.5); WBC 15.84 X 10*3/uL (4.50-10.00)
[2023-09-05 09:14] LABS: Blood Urea Nitrogen 19.6 mg/dL (9.0-27.0); Calcium 7.9 mg/dL (8.7-10.3); Carbon Dioxide 33.4 mmol/L (21.6-31.8); Chloride 88 mmol/L (96-109); Glucose 156 mg/dL (70-110); Potassium 3.9 mmol/L (3.5-5.5); Sodium 136 mmol/L (135-145)
[2023-09-05] MEDS: SYMBICORT 160-4.5 MCG INHALER INHALATION SCH ×2 (09:27→22:26)
[2023-09-05] MEDS: IPRATROPIUM-ALBUTEROL 3 ML NEB INHALATION SCH ×4 (09:27→22:26)
[2023-09-05 11:28] LABS: Glucose,Whole Blood 170 mg/dL (70-110)
--- NOTE | 2023-09-05 11:52 | P.CNPUL ---
History of Present Illness Consult date: 09/05/23 Requesting physician: Gisela Munoz Reason for consult: dyspnea, cough, COPD Chief complaint: Shortness of breath, cough, congestion, weakness History of present illness: This is a 72-year-old male patient with a past medical history significant for severe oxygen dependent COPD, normally maintained on 3 L/m nasal cannula, congestive heart failure, chronic atrial fibrillation, diabetes mellitus, hyperlipidemia, hypertension, obesity, GERD and is a ongoing chronic smoker. He was staying at [facility]. He has had multiple multiple readmissions to the hospital. He was just discharged from here on 09/01/2023 to home. He had refused to go to subacute rehabilitation. He did not crop picker his medication from the pharmacy. The next day EMS was called to his house and he was still in a chair sitting in feces and urine unable to get up and get himself to the bathroom. He was admitted again on 09/02/2023. He is seen today in consultation. He sitting up in a chair. Awake and alert in no acute distress. He is maintaining O2 saturations in the mid to upper 90s on 3 L/m per nasal cannula. He is afebrile. Hemodynamically stable. The x-ray continues to show cardiomegaly with pulmonary vascular congestion and small bilateral effusions. EKG reveals atrial fibrillation with a controlled ventricular response. White count 15.8. Hemoglobin 11.7. Platelets 231. Sodium 136. Potassium 3.9. Bicarb 33. BUN 20. Creatinine 0.8. Glucose 156. BNP 429. Troponins negative . Review of Systems REVIEW OF SYSTEMS: CONSTITUTIONAL: Positive for generalized weakness. Denies any recent significant weight loss or weight gain. EYES: Denies change in vision. EARS, NOSE, MOUTH, THROAT: Denies headaches, denies sore throat. CARDIOVASCULAR: Denies chest pain, palpitations or syncopal episodes. RESPIRATORY: Denies shortness of breath, cough, congestion or hemoptysis. GASTROINTESTINAL: Denies change in appetite, denies abdominal pain GENITOURINARY: Denies hematuria, denies infections. MUSKULOSKELETAL: Denies pain, denies swelling. INTEGUMENTARY: Denies rash, denies eczema. NEUROLOGICAL: Denies recent memory loss, no recent seizure activity. PSYCHIATRIC: Denies anxiety, denies depression. HEMATOLOGIC/LYMPHATIC: Denies anemia, denies enlarged lymph nodes. Past Medical History Past Medical History: Atrial Fibrillation, Asthma, COPD, Diabetes Mellitus, GERD/Reflux, Hyperlipidemia, Hypertension, Osteoarthritis (OA), Pneumonia Additional Past Medical History / Comment(s): Afib RVR, home oxygen prn, bronchitis, pt states he is on metformin to prevent becoming diabetic, neuropa thy bilateral feet/L hand, chronic pain back,/bilateral hips/knees/elbows and shoulders, L heel pain, FALLS, cataracts. 11/23/22 ex-spouse phylicia Waterman reports history is accurate to her knowledge. current adominal hernia noted History of Any Multi-Drug Resistant Organisms: None Reported Past Surgical History: Appendectomy Additional Past Surgical History / Comment(s): Colonoscopy Past Anesthesia/Blood Transfusion Reactions: No Reported Reaction Past Psychological History: Unable to Obtain, Anxiety, Depression Smoking Status: Former smoker Past Alcohol Use History: None Reported Past Drug Use History: None Reported - Past Family History Father Family Medical History: Congestive Heart Failure (CHF), COPD Additional Family Medical History / Comment(s): Father was an alcoholic but was able to quit drinking Mother Family Medical History: Congestive Heart Failure (CHF), COPD Additional Family Medical History / Comment(s): Mother was an alcoholic. Daughter(s) Additional Family Medical History / Comment(s): Liver cancer Medications and Allergies Home Medications Medication Instructions Recorded Confirmed Type Apixaban [Eliquis] 5 mg PO BID #60 tab 07/08/20 09/02/23 Rx Tamsulosin [Flomax] 0.4 mg PO HS 12/07/21 09/02/23 History Theophylline Anhydrous 400 mg PO DAILY@0600 02/18/22 09/02/23 History [Theophylline ER] Escitalopram [Lexapro] 5 mg PO HS 08/29/22 09/02/23 History Metoprolol Tartrate [Lopressor] 50 mg PO BID tab 09/07/22 09/02/23 Rx metFORMIN HCL [Glucophage] 500 mg PO BID tab 09/07/22 09/02/23 Rx Atorvastatin Calcium [Lipitor] 40 mg PO HS 12/31/22 09/02/23 History DULoxetine HCL [Cymbalta] 30 mg PO HS 12/31/22 09/02/23 History Budesonide-Formot 160-4.5 Mcg 2 puff INHALATION RT-BID 30 Days 08/22/23 09/02/23 Rx [Symbicort 160-4.5 Mcg Inhaler] #1 each Fluticasone Nasal [place] [Flonase 2 spray EA NOSTRIL DAILY PRN #7 ml 08/22/23 09/02/23 Rx Nasal [place]] Ipratropium-Albuterol Nebulize 3 ml INHALATION RT-Q2H PRN each 08/22/23 09/02/23 Rx [Duoneb 0.5 mg-3 mg/3 ml Soln] Ipratropium-Albuterol Nebulize 3 ml INHALATION RT-QID each 08/22/23 09/02/23 Rx [Duoneb 0.5 mg-3 mg/3 ml Soln] Lidocaine 4% Patch 1 patch TOPICAL DAILY #30 patch 08/22/23 09/02/23 Rx HYDROcodone/APAP 10-325MG [[place] 1 tab PO Q4H PRN #4 tab 08/24/23 09/02/23 Rx 10-325] diazePAM [Valium] 5 mg PO DAILY PRN #1 tab 08/24/23 09/02/23 Rx Dapagliflozin Propanediol [Farxiga] 10 mg PO DAILY@0600 08/28/23 09/02/23 History Furosemide [Lasix] 40 mg PO BID@0600,1400 08/28/23 09/02/23 History Insulin Glargine-Yfgn [Semglee 20 units SQ HS 08/28/23 09/02/23 History (Yfgn) Pen] Insulin Lispro See Protocol SQ ACHS 08/28/23 09/02/23 History Nicotine 21Mg/24Hr Patch [Habitrol] 1 patch TRANSDERM HS 08/28/23 09/02/23 History Potassium Chloride ER [K-Dur 20] 20 meq PO DAILY 08/28/23 09/02/23 History Pregabalin [Lyrica] 75 mg PO HS 08/28/23 09/02/23 History Spironolactone [Aldactone] 25 mg PO DAILY@0600 08/28/23 09/02/23 History guaiFENesin [Mucinex] 1,200 mg PO HS 08/28/23 09/02/23 History predniSONE See Taper PO DIRECTED #30 tab 08/31/23 09/02/23 Rx Allergies Allergy/AdvReac Type Severity Reaction Status Date / Time ANJU Inhibitors Allergy Unknown - Verified 09/02/23 14:53 per [facility] doxycycline Allergy Anaphylaxis Verified 09/02/23 14:53 Penicillins Allergy Anaphylaxis, Verified 09/02/23 14:53 Seizure Physical Exam Vitals: Vital Signs Temp Pulse Pulse Resp BP Pulse Ox 09/05/23 09:37 91 09/05/23 09:30 96 09/05/23 09:27 89 09/05/23 07:54 98.4 F 77 19 131/78 96 09/05/23 01:19 97.5 F L 81 18 124/74 98 09/05/23 00:44 85 09/05/23 00:33 87 09/04/23 21:30 88 09/04/23 21:09 88 09/04/23 19:05 98.5 F 95 17 104/72 90 L 09/04/23 18:27 88 09/04/23 18:16 84 09/04/23 15:51 80 09/04/23 15:40 86 09/04/23 13:18 97.5 F L 85 21 115/78 99 09/04/23 12:24 79 09/04/23 12:13 79 Intake and Output 09/04/23 09/05/23 09/05/23 22:59 06:59 14:59 Output Total 3500 1800 Balance -3500 -1800 Output: Urine 3500 1800 Other: Voiding Method Urinal # Bowel Movements 1 GENERAL EXAM: Alert, obese 72-year-old male sitting up in a chair, on 3 L nasal cannula, comfortable in no apparent distress. HEAD: Normocephalic. EYES: Normal reaction of pupils, equal size. NOSE: Clear with pink turbinates. THROAT: No erythema or exudates. NECK: No masses, no JVD. CHEST: No chest wall deformity. LUNGS: Equal air entry with bibasilar crackles, diminished. CVS: S1 and S2 normal with no audible murmur, regular rhythm. ABDOMEN: No hepatosplenomegaly, normal bowel sounds, no guarding or rigidity. SPINE: No scoliosis or deformity SKIN: No rashes CENTRAL NERVOUS SYSTEM: No focal deficits, tone is normal in all 4 extremities. EXTREMITIES: There is 1+ peripheral edema. Changes of chronic venous stasis. No clubbing, no cyanosis. Peripheral pulses are intact. Results - Laboratory Findings CBC and BMP: 09/05/23 04:14 09/05/23 04:14 PT/INR, D-dimer PT 10.3 sec (10.0-12.5) 09/02/23 17:11 INR 0.9 (<1.2) 09/02/23 17:11 Abnormal lab findings: Abnormal Labs 09/02/23 09/02/23 09/02/23 17:11 17:11 17:11 WBC 17.0 H RBC Hgb 12.5 L Hct MCHC RDW 17.2 H Immature Gran # Neutrophils # 14.6 H Lymphocytes # Eosinophils # APTT 21.7 L Sodium 133 L Potassium Chloride 87 L Carbon Dioxide 36 H Anion Gap BUN 24 H Creatinine 0.58 L BUN/Creatinine Ratio Glucose POC Glucose (mg/dL) Plasma Lactic Acid Wes Calcium 7.9 L Magnesium 1.3 L Total Protein 5.4 L Albumin 3.3 L 09/02/23 09/02/23 09/03/23 17:11 23:26 05:47 WBC 12.34 H RBC 3.87 L Hgb 11.1 L Hct 34.8 L MCHC 31.9 L RDW 16.6 H Immature Gran # 0.43 H Neutrophils # 9.53 H Lymphocytes # Eosinophils # 0 L APTT Sodium Potassium Chloride Carbon Dioxide Anion Gap BUN Creatinine BUN/Creatinine Ratio Glucose POC Glucose (mg/dL) 176 H Plasma Lactic Acid Wes 2.2 H* Calcium Magnesium Total Protein Albumin 09/03/23 09/03/23 09/03/23 05:47 06:09 16:39 WBC RBC Hgb Hct MCHC RDW Immature Gran # Neutrophils # Lymphocytes # Eosinophils # APTT Sodium Potassium Chloride 92 L Carbon Dioxide 37.8 H Anion Gap BUN Creatinine BUN/Creatinine Ratio 36.00 H Glucose 135 H POC Glucose (mg/dL) 139 H 164 H Plasma Lactic Acid Wes Calcium 8.0 L Magnesium Total Protein Albumin 09/03/23 09/04/23 09/04/23 19:15 03:24 03:24 WBC 13.21 H RBC 3.84 L Hgb 11.0 L Hct 34.2 L MCHC RDW 16.6 H Immature Gran # 0.34 H Neutrophils # 10.34 H Lymphocytes # Eosinophils # 0 L APTT Sodium Potassium 3.3 L Chloride 89 L Carbon Dioxide 38.1 H Anion Gap BUN Creatinine BUN/Creatinine Ratio 25.00 H Glucose 122 H POC Glucose (mg/dL) 197 H Plasma Lactic Acid Wes Calcium 7.5 L Magnesium Total Protein Albumin 09/04/23 09/04/23 09/04/23 06:38 11:04 11:09 WBC RBC Hgb Hct MCHC RDW Immature Gran # Neutrophils # Lymphocytes # Eosinophils # APTT Sodium 129 L Potassium 3.1 L Chloride 82 L Carbon Dioxide 37 H Anion Gap BUN 21 H Creatinine 0.54 L BUN/Creatinine Ratio Glucose 100 H POC Glucose (mg/dL) 122 H 178 H Plasma Lactic Acid Wes Calcium 7.1 L Magnesium Total Protein Albumin 09/04/23 09/04/23 09/05/23 16:03 20:01 04:14 WBC 15.84 H RBC 4.14 L Hgb 11.7 L Hct 36.2 L MCHC RDW 16.6 H Immature Gran # 0.27 H Neutrophils # 14.45 H Lymphocytes # 0.67 L Eosinophils # 0 L APTT Sodium Potassium Chloride Carbon Dioxide Anion Gap BUN Creatinine BUN/Creatinine Ratio Glucose POC Glucose (mg/dL) 152 H 275 H Plasma Lactic Acid Wes Calcium Magnesium Total Protein Albumin 09/05/23 09/05/23 09/05/23 04:14 05:25 11:27 WBC RBC Hgb Hct MCHC RDW Immature Gran # Neutrophils # Lymphocytes # Eosinophils # APTT Sodium Potassium Chloride 88 L Carbon Dioxide 33.4 H Anion Gap 14.60 H BUN Creatinine BUN/Creatinine Ratio 24.50 H Glucose 156 H POC Glucose (mg/dL) 300 H 170 H Plasma Lactic Acid Wes Calcium 7.9 L Magnesium Total Protein Albumin - Diagnostic Findings Chest x-ray: image reviewed Assessment and Plan Assessment: Generalized weakness, secondary to ongoing debility and refusal to go to subacute rehabilitation, did not obtain his medications post discharge he was home for 24 hours. Found sitting in a chair in feces and urine Chronic hypoxemic respiratory failure secondary to an acute exacerbation of chronic obstructive pulmonary disease Chronic and ongoing tobacco dependence Exacerbation of diastolic CHF with ejection fraction of 40-45% moderate concentric LVH and moderate degree of pulmonary hypertension.repeat echo cardiac exam continues to show RV dilatation and moderate degree of pulmonary hype rtension. Ejection fraction is improved and is currently up to 50-55%. Chronic atrial fibrillation, with controlled ventricular rate, anticoagulated on Eliquis, Essential hypertension Hyperlipidemia Diabetes mellitus type 2, complicated by diabetic neuropathy Morbid obesity with BMI of 31 kg/m Chronic pain Umbilical Hernia Plan: The patient was seen and evaluated Chest x-ray, labs and medications reviewed Continue bronchodilators, steroids Check a pro-calcitonin Educated regarding the importance of complete smoking cessation NicoDerm patch in place Social work consult regarding frequent readmissions We will continue to follow and make further recommendations based on his clinical status I have personally seen and examined the patient, performed the documentation and the assessment and plan as written. Number of minutes spent on the visit: 20.
--- NOTE | 2023-09-05 15:45 | P.PN ---
Subjective Progress Note Date: 09/05/23 72-year-old male well known to the emergency department who presents with weakness. He has a history of COPD, A. fib. Was recently hospitalized at our facility and discharged home yesterday. States he was discharged home with home health care. He was refusing transfer to a rehab facility. Patient sub sequently went home and sat in his chair. He was defecating and urinating on himself. He was too weak to get up and ambulate. Presents again today stating that he does feel he needs to be in a nursing facility. He did not take any of his medications today. Denies any chest pain. Has chronic shortness of breath. No other alleviating, precipitating or modified factors Upon arrival to ED patient was found to be disheveled and covered in feces and urine EKG reveals atrial fibrillation with heart rate of [address] elevation or depression Blood work completed views a WBC of 17, hemoglobin of 12.5, platelet count of 309, sodium 133 AND 2.7, BUN/creatinine of 25/0.58, lactic acid of 2.2 and troponin at 0.0-4 Chest x-ray reported as cardiac silhouette mildly enlarged but pulmonary vessels within normal limits; questionable small bilateral pleural effusion on lateral films Patient is admitted for weakness and debility and adult failure to thrive; we will need consult with case management for discharge 24 hour interval change 09/05/2023 Patient is sitting up in bedside chair; reports improvement in breathing; patient reports uncontrolled pain and requesting [facility] to be changed to a stronger pain medication Vital signs are reviewed and are stable Temp 98.4, pulse 112, respirations 22, blood pressure 146/67, O2 saturation 95% on 4 L LABS: White count 13.2, hemoglobin 11.0, platelets 235, sodium 129, potassium 3.1, BUN 21, creatinine 0.54, calcium 7.1, troponin-0.024, less than 0.012 EKG: Atrial fibrillation with rapid ventricular response IMAGING: Chest x-ray dated 09/02/2023 demonstrates the cardiac silhouette is mildly enlarged and the pulmonary vessels are within normal limits, there is no focal area of consolidation, question small bilateral pleural effusions on the lateral evaluation best visualized. Chest x-ray dated 09/04/2023 demonstrates cardiomegaly, pulmonary vascular congestion and bilateral pleural effusions, with BNP for congestive heart failure. Cardiology recommending to increase metoprolol up to 200 mg twice a day with one-time extra dose of metoprolol 25 mg 1 -- Patient has been evaluated by pulmonary service; recommended to continue with current management -- Patient is agreeable to placement at this time Objective - Vital Signs Vital signs: Vital Signs Temp 98.4 F 09/05/23 07:54 Pulse 91 09/05/23 09:37 Resp 19 09/05/23 07:54 BP 131/78 09/05/23 07:54 Pulse Ox 96 09/05/23 09:30 FiO2 Intake & Output 09/04/23 09/05/23 09/05/23 18:59 06:59 18:59 Output Total 3500 1800 Balance -3500 -1800 Output: Urine 3500 1800 Other: Voiding Method Urinal # Bowel Movements 1 - Exam General appearance: alert, in no apparent distress Head exam: Present: atraumatic, normocephalic, normal inspection Eye exam: Present: normal appearance, PERRL, EOMI. Absent: scleral icterus, conjunctival injection, periorbital swelling Neck exam: Present: normal inspection. Absent: tenderness, meningismus, lymphadenopathy Respiratory exam: Present: accessory muscle use, decreased breath sounds. Absent: respiratory distress, wheezes, rales, rhonchi, stridor Cardiovascular Exam: Present: normal rhythm, tachycardia, normal heart sounds. Absent: systolic murmur, diastolic murmur, rubs, gallop, clicks GI/Abdominal exam: Present: soft, normal bowel sounds. Absent: distended, tenderness, guarding, rebound, rigid exam: Present: other (soiled) Extremities exam: Present: normal inspection, full ROM, normal capillary refill. Absent: tenderness, pedal edema, joint swelling, calf tenderness Neurological exam: Present: alert, oriented X3, CN II-XII intact Skin exam: Present: warm, dry, intact, normal color. Absent: rash - Labs CBC & Chem 7: 09/05/23 04:14 09/05/23 04:14 Labs: Abnormal Lab Results - Last 24 Hours (Table) 09/04/23 09/04/23 09/04/23 Range/Units 11:04 16:03 20:01 WBC (4.50-10.00) X 10*3/uL RBC (4.40-5.60) X 10*6/uL Hgb (13.0-17.0) g/dL Hct (39.6-50.0) % RDW (11.5-14.5) % Immature Gran # (0.00-0.04) X 10*3/uL Neutrophils # (1.80-7.70) X 10*3/uL Lymphocytes # (0.90-5.00) X 10*3/uL Eosinophils # (0.04-0.35) X 10*3/uL Sodium 129 L (137-145) mmol/L Potassium 3.1 L (3.5-5.1) mmol/L Chloride 82 L (98-107) mmol/L Carbon Dioxide 37 H (22-30) mmol/L Anion Gap (4.00-12.00) mmol/L BUN 21 H (9-20) mg/dL Creatinine 0.54 L (0.66-1.25) mg/dL BUN/Creatinine Ratio (12.00-20.00) Ratio Glucose 100 H (74-99) mg/dL POC Glucose (mg/dL) 152 H 275 H (70-110) mg/dL Calcium 7.1 L (8.4-10.2) mg/dL 09/05/23 09/05/23 09/05/23 Range/Units 04:14 04:14 05:25 WBC 15.84 H (4.50-10.00) X 10*3/uL RBC 4.14 L (4.40-5.60) X 10*6/uL Hgb 11.7 L (13.0-17.0) g/dL Hct 36.2 L (39.6-50.0) % RDW 16.6 H (11.5-14.5) % Immature Gran # 0.27 H (0.00-0.04) X 10*3/uL Neutrophils # 14.45 H (1.80-7.70) X 10*3/uL Lymphocytes # 0.67 L (0.90-5.00) X 10*3/uL Eosinophils # 0 L (0.04-0.35) X 10*3/uL Sodium (137-145) mmol/L Potassium (3.5-5.1) mmol/L Chloride 88 L (98-107) mmol/L Carbon Dioxide 33.4 H (22-30) mmol/L Anion Gap 14.60 H (4.00-12.00) mmol/L BUN (9-20) mg/dL Creatinine (0.66-1.25) mg/dL BUN/Creatinine Ratio 24.50 H (12.00-20.00) Ratio Glucose 156 H (74-99) mg/dL POC Glucose (mg/dL) 300 H (70-110) mg/dL Calcium 7.9 L (8.4-10.2) mg/dL 09/05/23 Range/Units 11:27 WBC (4.50-10.00) X 10*3/uL RBC (4.40-5.60) X 10*6/uL Hgb (13.0-17.0) g/dL Hct (39.6-50.0) % RDW (11.5-14.5) % Immature Gran # (0.00-0.04) X 10*3/uL Neutrophils # (1.80-7.70) X 10*3/uL Lymphocytes # (0.90-5.00) X 10*3/uL Eosinophils # (0.04-0.35) X 10*3/uL Sodium (137-145) mmol/L Potassium (3.5-5.1) mmol/L Chloride (98-107) mmol/L Carbon Dioxide (22-30) mmol/L Anion Gap (4.00-12.00) mmol/L BUN (9-20) mg/dL Creatinine (0.66-1.25) mg/dL BUN/Creatinine Ratio (12.00-20.00) Ratio Glucose (74-99) mg/dL POC Glucose (mg/dL) 170 H (70-110) mg/dL Calcium (8.4-10.2) mg/dL Assessment and Plan Assessment: 1. Weakness/generalized debility versus metabolic encephalopathy related to acute renal injury - Patient will be placed on slow IV fluid hydration -- We will consult PT/OT for further evaluation -- Case management for discharge planning 2. Leukocytosis with elevated lactic acid level; chest x-ray is negative for any acute process; we will order urinalysis with culture and sensitivity -- We will monitor CBC, CRP and pro-calcitonin 3. Mild [facility]; increase fluid intake; monitor renal function and electrolytes; avoid nephrotoxins and hypotension 4. Chronic hypoxic respiratory failure; continue with home oxygen therapy 5. Chronic CHF with reduced EF of 40-45% - Echocardiogram reveals slight ventricular dilation 6. Chronic atrial fibrillation; continue with systemic anticoagulation; patient remains rate controlled 7. Hypertension; metoprolol 50 g twice a day 8. Hyperlipidemia; Lipitor 40 mg 2 daily at bedtime 9. Diabetes mellitus type 2 with long-term insulin use DVT prophylaxis; SCDs CODE STATUS; full code
[2023-09-05 16:28] LABS: Glucose,Whole Blood 241 mg/dL (70-110)
[2023-09-05] MEDS: AZITHROMYCIN 500 MG in SODIUM CHLORIDE 0.9% 250 ML IVPB SCH (17:01)
[2023-09-05 20:35] LABS: Glucose,Whole Blood 286 mg/dL (70-110)
[2023-09-05] MEDS: DULoxetine HCL 30 MG CAPSULE.DR PO SCH (20:47)
[2023-09-05] MEDS: ESCITALOPRAM 5 MG TAB PO SCH (20:47)
[2023-09-05] MEDS: INSULIN DETEMIR (LEVEMIR) 100 UNIT/ML SYR SQ SCH (20:47)
[2023-09-05] MEDS: ATORVASTATIN 40 MG TAB PO SCH (20:48)
[2023-09-05] MEDS: PREGABALIN 75 MG CAP PO SCH (20:48)
[2023-09-05] MEDS: TAMSULOSIN 0.4 MG CAP.ER.24H PO SCH (20:49)
[2023-09-05] MEDS: NICOTINE 21MG/24HR PATCH TRANSDERM SCH (20:49)
[2023-09-05] MEDS: guaiFENesin 600 MG TABLET.ER PO SCH (20:49)
[2023-09-06] MEDS: methylPREDNISolone SOD SUCCI 125 MG/2 ML VIAL IV SCH ×4 (00:13→18:37)
[2023-09-06] MEDS: FUROSEMIDE 10 MG/ML 4 ML VIAL IV SCH ×3 (00:13→20:47)
[2023-09-06] MEDS: IPRATROPIUM-ALBUTEROL 3 ML NEB INHALATION PRN ×2 (00:53→05:07)
[2023-09-06] MEDS: HYDROcodone/APAP 10-325MG 1 EACH TAB PO PRN ×5 (01:23→18:41)
[2023-09-06] MEDS: diazePAM 5 MG TAB PO PRN (03:34)
[2023-09-06 05:27] LABS: Glucose,Whole Blood 181 mg/dL (70-110)
[2023-09-06] MEDS: SPIRONOLACTONE 25 MG TAB PO SCH (05:52)
[2023-09-06] MEDS: INSULIN ASPART (NovoLOG) 100 UNIT/ML VIAL SQ SCH ×4 (05:53→20:47)
[2023-09-06] MEDS: THEOPHYLLINE 24 HOUR 400 MG CAP.ER.24H PO SCH (06:05)
[2023-09-06] MEDS: DAPAGLIFLOZIN PROPANEDIOL 10 MG TABLET PO SCH (06:05)
[2023-09-06 07:52] VITALS: BMI 33.9
[2023-09-06] MEDS: SYMBICORT 160-4.5 MCG INHALER INHALATION SCH ×2 (08:49→21:09)
[2023-09-06] MEDS: IPRATROPIUM-ALBUTEROL 3 ML NEB INHALATION SCH ×4 (08:49→21:09)
[2023-09-06] MEDS: APIXABAN 5 MG TAB PO SCH ×2 (09:17→20:47)
[2023-09-06] MEDS: METOPROLOL TARTRATE 50 MG TAB PO SCH ×2 (09:17→20:47)
[2023-09-06] MEDS: metFORMIN 500 MG TAB PO SCH ×2 (09:17→20:47)
[2023-09-06] MEDS: NYSTATIN 100,000 UNIT/GM POWD 15 GM TOPICAL SCH ×3 (09:17→20:48)
[2023-09-06] MEDS: POTASSIUM CHLORIDE ER 20 MEQ TAB.ER PO SCH (09:17)
[2023-09-06 10:48] LABS: Basophils # (A) 0.02 X 10*3/uL (0.00-0.10); Basophils % (A) 0.1 %; Eosinophils # (A) 0 X 10*3/uL (0.04-0.35); Eosinophils % (A) 0 %; HCT 32.1 % (39.6-50.0); HGB 10.4 g/dL (13.0-17.0); Lymphocytes # (A) 0.55 X 10*3/uL (0.90-5.00); Lymphocytes % (A) 3.1 %; MCH 28.3 pg (27.0-32.0); MCHC 32.4 g/dL (32.0-37.0); MCV 87.5 FL (80.0-97.0); Mean Platelet Volume 11.1 FL (9.5-12.2); Monocytes % (A) 3.9 %; NRBC Per 100 WBC 0 X 10*3/uL (0.00-0.01); Neutrophils # (A) 16.33 X 10*3/uL (1.80-7.70); Neutrophils % (A) 92.2 %; Platelet Count 213 X 10*3/uL (140-440); RBC 3.67 X 10*6/uL (4.40-5.60); RDW 16.3 % (11.5-14.5); WBC 17.73 X 10*3/uL (4.50-10.00)
[2023-09-06 10:53] LABS: Blood Urea Nitrogen 20.3 mg/dL (9.0-27.0); Carbon Dioxide 35.3 mmol/L (21.6-31.8); Chloride 90 mmol/L (96-109); Glucose 218 mg/dL (70-110); Potassium 3.2 mmol/L (3.5-5.5); Sodium 136 mmol/L (135-145)
[2023-09-06 10:57] LABS: Glucose,Whole Blood 227 mg/dL (70-110)
[2023-09-06] MEDS ORDERED: Potassium Replacement Protocol 1 EACH MISC MISCELLANE PRN (12:08)
--- NOTE | 2023-09-06 12:12 | P.PN ---
Subjective 72-year-old male well known to the emergency department who presents with weakness. He has a history of COPD, A. fib. Was recently hospitalized at our facility and discharged home yesterday. States he was discharged home with home health care. He was refusing transfer to a rehab facility. Patient subsequently went home and sat in his chair. He was defecating and urinating on himself. He was too weak to get up and ambulate. Presents again today stating that he does feel he needs to be in a nursing facility. He did not take any of his medications today. Denies any chest pain. Has chronic shortness of breath. No other alleviating, precipitating or modified factors Upon arrival to ED patient was found to be disheveled and covered in feces and urine EKG reveals atrial fibrillation with heart rate of [address] elevation or depression Blood work completed views a WBC of 17, hemoglobin of 12.5, platelet count of 309, sodium 133 AND 2.7, BUN/creatinine of 25/0.58, lactic acid of 2.2 and troponin at 0.0-4 Chest x-ray reported as cardiac silhouette mildly enlarged but pulmonary vessels within normal limits; questionable small bilateral pleural effusion on lateral films Patient is admitted for weakness and debility and adult failure to thrive; we will need consult with case management for discharge 24 hour interval change 09/05/2023 Patient is sitting up in bedside chair; reports improvement in breathing; patient reports uncontrolled pain and requesting [place] to be changed to a stronger pain medication Vital signs are reviewed and are stable Temp 98.4, pulse 112, respirations 22, blood pressure 146/67, O2 saturation 95% on 4 L LABS: White count 13.2, hemoglobin 11.0, platelets 235, sodium 129, potassium 3.1, BUN 21, creatinine 0.54, calcium 7.1, troponin-0.024, less than 0.012 EKG: Atrial fibrillation with rapid ventricular response IMAGING: Chest x-ray dated 09/02/2023 demonstrates the cardiac silhouette is mildly enlarged and the pulmonary vessels are within normal limits, there is no focal area of consolidation, question small bilateral pleural effusions on the lateral evaluation best visualized. Chest x-ray dated 09/04/2023 demonstrates cardiomegaly, pulmonary vascular congestion and bilateral pleural effusions, with BNP for congestive heart failure. Cardiology recommending to increase metoprolol up to 200 mg twice a day with one-time extra dose of metoprolol 25 mg 1 -- Patient has been evaluated by pulmonary service; recommended to continue with current management 09/06/2023 Patient this morning is still tachypneic and short of breath with some expiratory wheezing, his kept on IV Lasix 40 mg every 8 hours and IV Solu-Medrol 60 mg. His creatinine 0.7 today. Postop labs look stable. Patient is asking specifically about more pain medication of opioids and Valium, risks and benefits are explained for him and he verbalized understanding and acceptance Maze on home dose of liquids, Zithromax, Solu-Medrol 60 mg on IV Lasix which going to switch him to twice daily Objective - Vital Signs Vital signs: Vital Signs Temp 98.4 F 09/06/23 07:32 Pulse 100 09/06/23 09:01 Resp 19 09/06/23 07:32 BP 124/76 09/06/23 07:32 Pulse Ox 91 L 09/06/23 08:49 FiO2 Intake & Output 09/05/23 09/06/23 09/06/23 18:59 06:59 18:59 Intake Total 480 600 Output Total 950 2175 250 Balance -470 -1575 -250 Weight 113.398 kg Intake: Oral 480 600 Output: Urine 950 2175 250 Other: Voiding Method Urinal Urinal # Bowel Movements 1 - Exam GENERAL: The patient is alert and oriented x3, not in any acute distress. Well developed, well nourished. HEENT: Pupils are round and equally reacting to light. EOMI. No scleral icterus. No conjunctival pallor. Normocephalic, atraumatic. No pharyngeal erythema. No thyromegaly. CARDIOVASCULAR: S1 and S2 present. No murmurs, rubs, or gallops. -PULMONARY: Chest is clear to auscultation, bilateral expiratory wheezing , no crackles. ABDOMEN: Soft, nontender, nondistended, normoactive bowel sounds. No palpable organomegaly. MUSCULOSKELETAL: No joint swelling or deformity. EXTREMITIES: No cyanosis, clubbing, or pedal edema. NEUROLOGICAL: Gross neurological examination did not reveal any focal deficits. SKIN: No rashes. no petechiae. - Labs CBC & Chem 7: 09/06/23 06:12 09/06/23 06:12 Labs: Abnormal Lab Results - Last 24 Hours (Table) 09/05/23 09/05/23 09/05/23 Range/Units 12:20 16:27 20:33 WBC (4.50-10.00) X 10*3/uL RBC (4.40-5.60) X 10*6/uL Hgb (13.0-17.0) g/dL Hct (39.6-50.0) % RDW (11.5-14.5) % Immature Gran # (0.00-0.04) X 10*3/uL Neutrophils # (1.80-7.70) X 10*3/uL Lymphocytes # (0.90-5.00) X 10*3/uL Eosinophils # (0.04-0.35) X 10*3/uL Potassium (3.5-5.5) mmol/L Chloride (96-109) mmol/L Carbon Dioxide (21.6-31.8) mmol/L BUN/Creatinine Ratio (12.00-20.00) Ratio Glucose (70-110) mg/dL POC Glucose (mg/dL) 241 H 286 H (70-110) mg/dL Calcium (8.7-10.3) mg/dL Procalcitonin 0.20 H (0.02-0.09) ng/mL 09/06/23 09/06/23 09/06/23 Range/Units 05:26 06:12 06:12 WBC 17.73 H (4.50-10.00) X 10*3/uL RBC 3.67 L (4.40-5.60) X 10*6/uL Hgb 10.4 L (13.0-17.0) g/dL Hct 32.1 L (39.6-50.0) % RDW 16.3 H (11.5-14.5) % Immature Gran # 0.13 H (0.00-0.04) X 10*3/uL Neutrophils # 16.33 H (1.80-7.70) X 10*3/uL Lymphocytes # 0.55 L (0.90-5.00) X 10*3/uL Eosinophils # 0 L (0.04-0.35) X 10*3/uL Potassium 3.2 L (3.5-5.5) mmol/L Chloride 90 L (96-109) mmol/L Carbon Dioxide 35.3 H (21.6-31.8) mmol/L BUN/Creatinine Ratio 29.00 H (12.00-20.00) Ratio Glucose 218 H (70-110) mg/dL POC Glucose (mg/dL) 181 H (70-110) mg/dL Calcium 8.0 L (8.7-10.3) mg/dL Procalcitonin (0.02-0.09) ng/mL 09/06/23 Range/Units 10:55 WBC (4.50-10.00) X 10*3/uL RBC (4.40-5.60) X 10*6/uL Hgb (13.0-17.0) g/dL Hct (39.6-50.0) % RDW (11.5-14.5) % Immature Gran # (0.00-0.04) X 10*3/uL Neutrophils # (1.80-7.70) X 10*3/uL Lymphocytes # (0.90-5.00) X 10*3/uL Eosinophils # (0.04-0.35) X 10*3/uL Potassium (3.5-5.5) mmol/L Chloride (96-109) mmol/L Carbon Dioxide (21.6-31.8) mmol/L BUN/Creatinine Ratio (12.00-20.00) Ratio Glucose (70-110) mg/dL POC Glucose (mg/dL) 227 H (70-110) mg/dL Calcium (8.7-10.3) mg/dL Procalcitonin (0.02-0.09) ng/mL Assessment and Plan Assessment: 1. Weakness/generalized debility versus metabolic encephalopathy ( improved ) related to acute renal injury -- We will consult PT/OT for further evaluation -- Case management for discharge planning, possible recurrent 2. Acute COPD exacerbation - Continue with IV Solu-Medrol - Pulmonary team consult 3. Mild [facility]; increase fluid intake; monitor renal function and electrolytes; avoid nephrotoxins and hypotension Improving 4. Chronic hypoxic respiratory failure; continue with home oxygen therapy 5. Acute on Chronic CHF with reduced EF of 40-45% - Echocardiogram reveals slight ventricular dilation - Continue with IV Lasix for another day and may switch him to oral dose in 24- 48 hours 6. Chronic atrial fibrillation; continue with systemic anticoagulation; patient remains rate controlled 7. Hypertension; metoprolol 50 g twice a day 8. Hyperlipidemia; Lipitor 40 mg 2 daily at bedtime 9. Diabetes mellitus type 2 with long-term insulin use DVT prophylaxis; SCDs CODE STATUS; full code
[2023-09-06 16:48] LABS: Glucose,Whole Blood 257 mg/dL (70-110)
--- NOTE | 2023-09-06 18:35 | P.PN ---
Subjective Progress Note Date: 09/06/23 This is a 72-year-old male patient with a past medical history significant for severe oxygen dependent COPD, normally maintained on 3 L/m nasal cannula, congestive heart failure, chronic atrial fibrillation, diabetes mellitus, hyperlipidemia, hypertension, obesity, GERD and is a ongoing chronic smoker. He was staying at [facility] rehab facility. He has had multiple multiple readmissions to the hospital. He was just discharged from here on 09/01/2023 to home. He had refused to go to subacute rehabilitation. He did not pepper picker his medication from the pharmacy. The next day EMS was called to his house and he was still in a chair sitting in feces and urine unable to get up and get himself to the bathroom. He was admitted again on 09/02/2023. He is seen today in consultation. He sitting up in a chair. Awake and alert in no acute distress. He is maintaining O2 saturations in the mid to upper 90s on 3 L/m per nasal cannula. He is afebrile. Hemodynamically stable. The x-ray continues to show cardiomegaly with pulmonary vascular congestion and small bilateral effusions. EKG reveals atrial fibrillation with a controlled ventricular response. White count 15.8. Hemoglobin 11.7. Platelets 231. Sodium 136. Potassium 3.9. Bicarb 33. BUN 20. Creatinine 0.8. Glucose 156. BNP 429. Troponins negative. On today's evaluation of 09/06/2023, the patient has no specific complaints. Is complaining of some ongoing shortness of breath which is attributed to his chronic COPD. The patient was hospitalized as the patient is unable to take care of himself. The patient wants to go to rehabilitation and is interested in going to [facility] on the [place]. He is on bronchodilators. He is on steroids. Is on antibiotics. Outpatient medications have been all resumed. In terms of labs , the white cell count at 17 with a hemoglobin 10.4 and a platelet count of 213, sodium is at 136, potassium is at 3.2, BUN is at 20 with a creatinine of 0.7 and a blood sugars at 257. The patient is on insulin and a formal Levemir 20 units daily at bedtime and NovoLog sliding scale coverage. He is also on a nicotine patch. He is chronically debilitated with chronic hypoxic respiratory failure and advanced COPD. Objective - Vital Signs Vital signs: Vital Signs Temp 98.4 F 09/06/23 07:32 Pulse 100 09/06/23 09:01 Resp 19 09/06/23 07:32 BP 124/76 09/06/23 07:32 Pulse Ox 91 L 09/06/23 08:49 FiO2 Intake & Output 09/05/23 09/06/23 09/06/23 18:59 06:59 18:59 Intake Total 480 600 Output Total 950 2175 250 Balance -470 -1575 -250 Weight 113.398 kg Intake: Oral 480 600 Output: Urine 950 2175 250 Other: Voiding Method Urinal Urinal # Bowel Movements 1 - Exam GENERAL EXAM: Alert, obese 72-year-old male sitting up in a chair, on 3 L nasal cannula, comfortable in no apparent distress. HEAD: Normocephalic. EYES: Normal reaction of pupils, equal size. NOSE: Clear with pink turbinates. THROAT: No erythema or exudates. NECK: No masses, no JVD. CHEST: No chest wall deformity. LUNGS: Equal air entry with bibasilar crackles, diminished. CVS: S1 and S2 normal with no audible murmur, regular rhythm. ABDOMEN: No hepatosplenomegaly, normal bowel sounds, no guarding or rigidity. SPINE: No scoliosis or deformity SKIN: No rashes CENTRAL NERVOUS SYSTEM: No focal deficits, tone is normal in all 4 extremities. EXTREMITIES: There is 1+ peripheral edema. Changes of chronic venous stasis. No clubbing, no cyanosis. Peripheral pulses are intact. - Labs CBC & Chem 7: 09/06/23 06:12 09/06/23 06:12 Labs: Abnormal Lab Results - Last 24 Hours (Table) 09/05/23 09/05/23 09/05/23 Range/Units 12:20 16:27 20:33 WBC (4.50-10.00) X 10*3/uL RBC (4.40-5.60) X 10*6/uL Hgb (13.0-17.0) g/dL Hct (39.6-50.0) % RDW (11.5-14.5) % Immature Gran # (0.00-0.04) X 10*3/uL Neutrophils # (1.80-7.70) X 10*3/uL Lymphocytes # (0.90-5.00) X 10*3/uL Eosinophils # (0.04-0.35) X 10*3/uL Potassium (3.5-5.5) mmol/L Chloride (96-109) mmol/L Carbon Dioxide (21.6-31.8) mmol/L BUN/Creatinine Ratio (12.00-20.00) Ratio Glucose (70-110) mg/dL POC Glucose (mg/dL) 241 H 286 H (70-110) mg/dL Calcium (8.7-10.3) mg/dL Procalcitonin 0.20 H (0.02-0.09) ng/mL 09/06/23 09/06/23 09/06/23 Range/Units 05:26 06:12 06:12 WBC 17.73 H (4.50-10.00) X 10*3/uL RBC 3.67 L (4.40-5.60) X 10*6/uL Hgb 10.4 L (13.0-17.0) g/dL Hct 32.1 L (39.6-50.0) % RDW 16.3 H (11.5-14.5) % Immature Gran # 0.13 H (0.00-0.04) X 10*3/uL Neutrophils # 16.33 H (1.80-7.70) X 10*3/uL Lymphocytes # 0.55 L (0.90-5.00) X 10*3/uL Eosinophils # 0 L (0.04-0.35) X 10*3/uL Potassium 3.2 L (3.5-5.5) mmol/L Chloride 90 L (96-109) mmol/L Carbon Dioxide 35.3 H (21.6-31.8) mmol/L BUN/Creatinine Ratio 29.00 H (12.00-20.00) Ratio Glucose 218 H (70-110) mg/dL POC Glucose (mg/dL) 181 H (70-110) mg/dL Calcium 8.0 L (8.7-10.3) mg/dL Procalcitonin (0.02-0.09) ng/mL 09/06/23 Range/Units 10:55 WBC (4.50-10.00) X 10*3/uL RBC (4.40-5.60) X 10*6/uL Hgb (13.0-17.0) g/dL Hct (39.6-50.0) % RDW (11.5-14.5) % Immature Gran # (0.00-0.04) X 10*3/uL Neutrophils # (1.80-7.70) X 10*3/uL Lymphocytes # (0.90-5.00) X 10*3/uL Eosinophils # (0.04-0.35) X 10*3/uL Potassium (3.5-5.5) mmol/L Chloride (96-109) mmol/L Carbon Dioxide (21.6-31.8) mmol/L BUN/Creatinine Ratio (12.00-20.00) Ratio Glucose (70-110) mg/dL POC Glucose (mg/dL) 227 H (70-110) mg/dL Calcium (8.7-10.3) mg/dL Procalcitonin (0.02-0.09) ng/mL Assessment and Plan Plan: Generalized weakness, secondary to ongoing debility and refusal to go to subacute rehabilitation, did not obtain his medications post discharge he was home for 24 hours. Found sitting in a chair in feces and urine. Obviously, the patient is unable to take care of himself and the patient will need placement. For the time being, he is interested in rehabilitation. He may need permanent placement. Chronic hypoxemic respiratory failure secondary to an acute exacerbation of chronic obstructive pulmonary disease Chronic and ongoing tobacco dependence Exacerbation of diastolic CHF with ejection fraction of 40-45% moderate concentric LVH and moderate degree of pulmonary hypertension.repeat echo cardiac exam continues to show RV dilatation and moderate degree of pulmonary hypertension. Ejection fraction is improved and is currently up to 50-55%. Chronic atrial fibrillation, with controlled ventricular rate, anticoagulated on Eliquis, Essential hypertension Hyperlipidemia Diabetes mellitus type 2, complicated by diabetic neuropathy Morbid obesity with BMI of 31 kg/m Chronic pain Umbilical Hernia Plan: Continue current treatment for now. His condition is stable Continue bronchodilators, steroids Check a pro-calcitonin is mildly elevated at 0.2 Educated regarding the importance of complete smoking cessation NicoDerm patch in place Chest exam, admission shows some cardiomegaly and mild changes of CHF, no evidence of pneumonia Social work consult regarding frequent readmissions We will continue to follow and make further recommendations based on his clinical status
[2023-09-06] MEDS: AZITHROMYCIN 500 MG in SODIUM CHLORIDE 0.9% 250 ML IVPB SCH (18:37)
[2023-09-06 19:57] LABS: Glucose,Whole Blood 216 mg/dL (70-110)
[2023-09-06] MEDS: guaiFENesin 600 MG TABLET.ER PO SCH (20:46)
[2023-09-06] MEDS: DULoxetine HCL 30 MG CAPSULE.DR PO SCH (20:46)
[2023-09-06] MEDS: INSULIN DETEMIR (LEVEMIR) 100 UNIT/ML SYR SQ SCH (20:47)
[2023-09-06] MEDS: NICOTINE 21MG/24HR PATCH TRANSDERM SCH (20:47)
[2023-09-06] MEDS: PREGABALIN 75 MG CAP PO SCH (20:47)
[2023-09-06] MEDS: TAMSULOSIN 0.4 MG CAP.ER.24H PO SCH (20:47)
[2023-09-06] MEDS: ATORVASTATIN 40 MG TAB PO SCH (20:47)
[2023-09-06] MEDS: ESCITALOPRAM 5 MG TAB PO SCH (20:47)
[2023-09-06] MEDS: PANTOPRAZOLE 40 MG TABLET PO SCH (22:29)
[2023-09-06] MEDS: MELATONIN 5 MG TABLET PO PRN (22:29)
[2023-09-07] MEDS: IPRATROPIUM-ALBUTEROL 3 ML NEB INHALATION PRN (00:20)
[2023-09-07] MEDS: diazePAM 5 MG TAB PO PRN (01:07)
[2023-09-07] MEDS: methylPREDNISolone SOD SUCCI 125 MG/2 ML VIAL IV SCH ×4 (01:07→17:48)
[2023-09-07 05:35] LABS: Glucose,Whole Blood 140 mg/dL (70-110)
[2023-09-07] MEDS: INSULIN ASPART (NovoLOG) 100 UNIT/ML VIAL SQ SCH ×4 (05:40→21:02)
[2023-09-07] MEDS: PANTOPRAZOLE 40 MG TABLET PO SCH ×2 (05:57→21:00)
[2023-09-07] MEDS: DAPAGLIFLOZIN PROPANEDIOL 10 MG TABLET PO SCH (05:57)
[2023-09-07] MEDS: THEOPHYLLINE 24 HOUR 400 MG CAP.ER.24H PO SCH (05:57)
[2023-09-07] MEDS: HYDROcodone/APAP 10-325MG 1 EACH TAB PO PRN ×4 (05:57→19:00)
[2023-09-07] MEDS: SPIRONOLACTONE 25 MG TAB PO SCH (05:57)
[2023-09-07 08:35] LABS: Basophils # (A) 0.01 X 10*3/uL (0.00-0.10); Basophils % (A) 0.1 %; Eosinophils # (A) 0 X 10*3/uL (0.04-0.35); Eosinophils % (A) 0 %; HCT 33.4 % (39.6-50.0); HGB 10.5 g/dL (13.0-17.0); Lymphocytes # (A) 0.36 X 10*3/uL (0.90-5.00); Lymphocytes % (A) 2.8 %; MCH 28.2 pg (27.0-32.0); MCHC 31.4 g/dL (32.0-37.0); MCV 89.5 FL (80.0-97.0); Monocytes # (A) 0.45 X 10*3/uL (0.20-1.00); Monocytes % (A) 3.5 %; NRBC Per 100 WBC 0 X 10*3/uL (0.00-0.01); Neutrophils # (A) 11.93 X 10*3/uL (1.80-7.70); Neutrophils % (A) 92.8 %; Platelet Count 219 X 10*3/uL (140-440); RBC 3.73 X 10*6/uL (4.40-5.60); RDW 16.7 % (11.5-14.5); WBC 12.85 X 10*3/uL (4.50-10.00)
[2023-09-07 08:43] LABS: BUN/Creat Ratio 28.86 Ratio (12.00-20.00); Blood Urea Nitrogen 20.2 mg/dL (9.0-27.0); Calcium 8.4 mg/dL (8.7-10.3); Carbon Dioxide 36.3 mmol/L (21.6-31.8); Chloride 93 mmol/L (96-109); Glucose 128 mg/dL (70-110); Potassium 3.5 mmol/L (3.5-5.5); Sodium 140 mmol/L (135-145)
[2023-09-07] MEDS: SYMBICORT 160-4.5 MCG INHALER INHALATION SCH ×2 (08:53→21:16)
[2023-09-07] MEDS: IPRATROPIUM-ALBUTEROL 3 ML NEB INHALATION SCH ×4 (08:53→21:16)
[2023-09-07] MEDS: POTASSIUM CHLORIDE ER 20 MEQ TAB.ER PO SCH (09:36)
[2023-09-07] MEDS: FUROSEMIDE 10 MG/ML 4 ML VIAL IV SCH ×2 (09:36→22:18)
[2023-09-07] MEDS: METOPROLOL TARTRATE 50 MG TAB PO SCH ×2 (09:36→20:56)
[2023-09-07] MEDS: APIXABAN 5 MG TAB PO SCH ×2 (09:36→20:56)
[2023-09-07] MEDS: metFORMIN 500 MG TAB PO SCH ×2 (09:36→20:56)
[2023-09-07] MEDS: NYSTATIN 100,000 UNIT/GM POWD 15 GM TOPICAL SCH ×3 (09:37→22:21)
[2023-09-07 12:00] LABS: Glucose,Whole Blood 315 mg/dL (70-110)
--- NOTE | 2023-09-07 12:28 | P.PN ---
Subjective 72-year-old male well known to the emergency department who presents with weakness. He has a history of COPD, A. fib. Was recently hospitalized at our facility and discharged home yesterday. States he was discharged home with home health care. He was refusing transfer to a rehab facility. Patient subsequently went home and sat in his chair. He was defecating and urinating on himself. He was too weak to get up and ambulate. Presents again today stating that he does feel he needs to be in a nursing facility. He did not take any of his medications today. Denies any chest pain. Has chronic shortness of breath. No other alleviating, precipitating or modified factors Upon arrival to ED patient was found to be disheveled and covered in feces and urine EKG reveals atrial fibrillation with heart rate of [address] elevation or depression Blood work completed views a WBC of 17, hemoglobin of 12.5, platelet count of 309, sodium 133 AND 2.7, BUN/creatinine of 25/0.58, lactic acid of 2.2 and troponin at 0.0-4 Chest x-ray reported as cardiac silhouette mildly enlarged but pulmonary vessels within normal limits; questionable small bilateral pleural effusion on lateral films Patient is admitted for weakness and debility and adult failure to thrive; we will need consult with case management for discharge 24 hour interval change 09/05/2023 Patient is sitting up in bedside chair; reports improvement in breathing; patient reports uncontrolled pain and requesting [place] to be changed to a stronger pain medication Vital signs are reviewed and are stable Temp 98.4, pulse 112, respirations 22, blood pressure 146/67, O2 saturation 95% on 4 L LABS: White count 13.2, hemoglobin 11.0, platelets 235, sodium 129, potassium 3.1, BUN 21, creatinine 0.54, calcium 7.1, troponin-0.024, less than 0.012 EKG: Atrial fibrillation with rapid ventricular response IMAGING: Chest x-ray dated 09/02/2023 demonstrates the cardiac silhouette is mildly enlarged and the pulmonary vessels are within normal limits, there is no focal area of consolidation, question small bilateral pleural effusions on the lateral evaluation best visualized. Chest x-ray dated 09/04/2023 demonstrates cardiomegaly, pulmonary vascular congestion and bilateral pleural effusions, with BNP for congestive heart failure. Cardiology recommending to increase metoprolol up to 200 mg twice a day with one-time extra dose of metoprolol 25 mg 1 -- Patient has been evaluated by pulmonary service; recommended to continue with current management 09/06/2023 Patient this morning is still tachypneic and short of breath with some expiratory wheezing, his kept on IV Lasix 40 mg every 8 hours and IV Solu-Medrol 60 mg. His creatinine 0.7 today. Postop labs look stable. Patient is asking specifically about more pain medication of opioids and Valium, risks and benefits are explained for him and he verbalized understanding and acceptance Maze on home dose of liquids, Zithromax, Solu-Medrol 60 mg on IV Lasix which going to switch him to twice daily 09/07/2023 Patient breathing is improved on close to baseline, no wheezing, mildly tachypn eic while at rest, patient is seen in bed most of the time Is hemodynamically stable Labs look stable with dilute BC at 12,000 while he is on steroids, hemoglobin and creatinine are stable and within the reference range. He remains on Zithromax, home dose of liquids 5 mg, IV Lasix 40 mg twice daily, IV Solu-Medrol Patient is getting medically stable for discharge. However patient is not helping himself regarding his discharge, for example Tylenol did not pick that ECF he needs to go for rehab. We tried to encourage the patient. As discussed with the bedside nurse and hospice case manager Patient may be considered for discharge soon Objective - Vital Signs Vital signs: Vital Signs Temp 98.3 F 09/07/23 07:17 Pulse 92 09/07/23 12:10 Resp 19 09/07/23 07:17 BP 120/73 09/07/23 07:17 Pulse Ox 93 L 09/07/23 08:54 FiO2 Intake & Output 09/06/23 09/07/23 09/07/23 18:59 06:59 18:59 Intake Total 250 750 Output Total 250 1900 800 Balance 0 -1150 -800 Weight 113.398 kg Intake: Intake, IV Titration 250 Amount Azithromycin 500 mg In 250 Sodium Chloride 0.9% 250 ml @ 250 mls/hr IVPB DAILY@1800 [facility] Rx#: [id number] Oral 750 Output: Urine 250 1900 800 Other: Voiding Method Urinal Urinal # Voids 1 # Bowel Movements 1 - Exam GENERAL: The patient is alert and oriented x3, not in any acute distress. Well developed, well nourished. HEENT: Pupils are round and equally reacting to light. EOMI. No scleral icterus. No conjunctival pallor. Normocephalic, atraumatic. No pharyngeal erythema. No thyromegaly. CARDIOVASCULAR: S1 and S2 present. No murmurs, rubs, or gallops. -PULMONARY: Chest is clear to auscultation, bilateral expiratory wheezing , no crackles. ABDOMEN: Soft, nontender, nondistended, normoactive bowel sounds. No palpable organomegaly. MUSCULOSKELETAL: No joint swelling or deformity. EXTREMITIES: No cyanosis, clubbing, or pedal edema. NEUROLOGICAL: Gross neurological examination did not reveal any focal deficits. SKIN: No rashes. no petechiae. - Labs CBC & Chem 7: 09/07/23 05:48 09/07/23 05:48 Labs: Abnormal Lab Results - Last 24 Hours (Table) 09/06/23 09/06/23 09/07/23 Range/Units 16:46 19:55 05:31 WBC (4.50-10.00) X 10*3/uL RBC (4.40-5.60) X 10*6/uL Hgb (13.0-17.0) g/dL Hct (39.6-50.0) % MCHC (32.0-37.0) g/dL RDW (11.5-14.5) % Immature Gran # (0.00-0.04) X 10*3/uL Neutrophils # (1.80-7.70) X 10*3/uL Lymphocytes # (0.90-5.00) X 10*3/uL Eosinophils # (0.04-0.35) X 10*3/uL Chloride (96-109) mmol/L Carbon Dioxide (21.6-31.8) mmol/L BUN/Creatinine Ratio (12.00-20.00) Ratio Glucose (70-110) mg/dL POC Glucose (mg/dL) 257 H 216 H 140 H (70-110) mg/dL Calcium (8.7-10.3) mg/dL 09/07/23 09/07/23 09/07/23 Range/Units 05:48 05:48 11:59 WBC 12.85 H (4.50-10.00) X 10*3/uL RBC 3.73 L (4.40-5.60) X 10*6/uL Hgb 10.5 L (13.0-17.0) g/dL Hct 33.4 L (39.6-50.0) % MCHC 31.4 L (32.0-37.0) g/dL RDW 16.7 H (11.5-14.5) % Immature Gran # 0.10 H (0.00-0.04) X 10*3/uL Neutrophils # 11.93 H (1.80-7.70) X 10*3/uL Lymphocytes # 0.36 L (0.90-5.00) X 10*3/uL Eosinophils # 0 L (0.04-0.35) X 10*3/uL Chloride 93 L (96-109) mmol/L Carbon Dioxide 36.3 H (21.6-31.8) mmol/L BUN/Creatinine Ratio 28.86 H (12.00-20.00) Ratio Glucose 128 H (70-110) mg/dL POC Glucose (mg/dL) 315 H (70-110) mg/dL Calcium 8.4 L (8.7-10.3) mg/dL Assessment and Plan Assessment: 1. Weakness/generalized debility versus metabolic encephalopathy ( improved ) related to acute renal injury -- We will consult PT/OT for further evaluation -- Case management for discharge planning, possible ECF for subacute rehab 2. Acute COPD exacerbation - Continue with IV Solu-Medrol - Pulmonary team consult 3. Mild [facility]; increase fluid intake; monitor renal function and electrolytes; avoid nephrotoxins and hypotension Improving 4. Chronic hypoxic respiratory failure; continue with home oxygen therapy 5. Acute on Chronic CHF with reduced EF of 40-45% - Echocardiogram reveals slight ventricular dilation - Continue with IV Lasix for another day and may switch him to oral dose in 24- 48 hours 6. Chronic atrial fibrillation; continue with systemic anticoagulation; patient remains rate controlled 7. Hypertension; metoprolol 50 g twice a day 8. Hyperlipidemia; Lipitor 40 mg 2 daily at bedtime 9. Diabetes mellitus type 2 with long-term insulin use DVT prophylaxis; SCDs CODE STATUS; full code
--- NOTE | 2023-09-07 13:41 | P.PN ---
Subjective Progress Note Date: 09/07/23 This is a 72-year-old male patient with a past medical history significant for severe oxygen dependent COPD, normally maintained on 3 L/m nasal cannula, congestive heart failure, chronic atrial fibrillation, diabetes mellitus, hyperlipidemia, hypertension, obesity, GERD and is a ongoing chronic smoker. He was staying at [facility] rehab facility. He has had multiple multiple readmissions to the hospital. He was just discharged from here on 09/01/2023 to home. He had refused to go to subacute rehabilitation. He did not picker packer his medication from the pharmacy. The next day EMS was called to his house and he was still in a chair sitting in feces and urine unable to get up and get himself to the bathroom. He was admitted again on 09/02/2023. He is seen today in consultation. He sitting up in a chair. Awake and alert in no acute distress. He is maintaining O2 saturations in the mid to upper 90s on 3 L/m per nasal cannula. He is afebrile. Hemodynamically stable. The x-ray continues to show cardiomegaly with pulmonary vascular congestion and small bilateral effusions. EKG reveals atrial fibrillation with a controlled ventricular response. White count 15.8. Hemoglobin 11.7. Platelets 231. Sodium 136. Potassium 3.9. Bicarb 33. BUN 20. Creatinine 0.8. Glucose 156. BNP 429. Troponins negative. On today's evaluation of 09/06/2023, the patient has no specific complaints. Is complaining of some ongoing shortness of breath which is attributed to his chronic COPD. The patient was hospitalized as the patient is unable to take care of himself. The patient wants to go to rehabilitation and is interested in going to [facility] on the burns. He is on bronchodilators. He is on steroids. Is on antibiotics. Outpatient medications have been all resumed. In terms of labs , the white cell count at 17 with a hemoglobin 10.4 and a platelet count of 213, sodium is at 136, potassium is at 3.2, BUN is at 20 with a creatinine of 0.7 and a blood sugars at 257. The patient is on insulin and a formal Levemir 20 units daily at bedtime and NovoLog sliding scale coverage. He is also on a nicotine patch. He is chronically debilitated with chronic hypoxic respiratory failure and advanced COPD. On today's evaluation of 09/07/2023, the patient's condition is stable. The pat lex's respiratory status is adequate and is gradually improving. Less short of breath compared to yesterday. Remains on broke a dilated. Remains on steroids. We'll ask case management to work on discharge planning on this patient as the patient may benefit from [facility] placement. He is still interested in ECF. No new complaints otherwise for now. The echoes at 12.8, he was to 0.5, BUN is at 20 with a creatinine of 0.7 and a sodium level is at 140. Objective - Vital Signs Vital signs: Vital Signs Temp 98.3 F 09/07/23 07:17 Pulse 88 09/07/23 09:06 Resp 19 09/07/23 07:17 BP 120/73 09/07/23 07:17 Pulse Ox 93 L 09/07/23 08:54 FiO2 Intake & Output 09/06/23 09/07/23 09/07/23 18:59 06:59 18:59 Intake Total 250 750 Output Total 250 1900 800 Balance 0 -1150 -800 Weight 113.398 kg Intake: Intake, IV Titration 250 Amount Azithromycin 500 mg In 250 Sodium Chloride 0.9% 250 ml @ 250 mls/hr IVPB DAILY@1800 [facility] Rx#: [id number] Oral 750 Output: Urine 250 1900 800 Other: Voiding Method Urinal Urinal # Voids 1 # Bowel Movements 1 - Exam GENERAL EXAM: Alert, obese 72-year-old male sitting up in a chair, on 3 L nasal cannula, comfortable in no apparent distress. HEAD: Normocephalic. EYES: Normal reaction of pupils, equal size. NOSE: Clear with pink turbinates. THROAT: No erythema or exudates. NECK: No masses, no JVD. CHEST: No chest wall deformity. LUNGS: Equal air entry with bibasilar crackles, diminished. CVS: S1 and S2 normal with no audible murmur, regular rhythm. ABDOMEN: No hepatosplenomegaly, normal bowel sounds, no guarding or rigidity. SPINE: No scoliosis or deformity SKIN: No rashes CENTRAL NERVOUS SYSTEM: No focal deficits, tone is normal in all 4 extremities. EXTREMITIES: There is 1+ peripheral edema. Changes of chronic venous stasis. No clubbing, no cyanosis. Peripheral pulses are intact. - Labs CBC & Chem 7: 09/07/23 05:48 09/07/23 05:48 Labs: Abnormal Lab Results - Last 24 Hours (Table) 09/06/23 09/06/23 09/07/23 Range/Units 16:46 19:55 05:31 WBC (4.50-10.00) X 10*3/uL RBC (4.40-5.60) X 10*6/uL Hgb (13.0-17.0) g/dL Hct (39.6-50.0) % MCHC (32.0-37.0) g/dL RDW (11.5-14.5) % Immature Gran # (0.00-0.04) X 10*3/uL Neutrophils # (1.80-7.70) X 10*3/uL Lymphocytes # (0.90-5.00) X 10*3/uL Eosinophils # (0.04-0.35) X 10*3/uL Chloride (96-109) mmol/L Carbon Dioxide (21.6-31.8) mmol/L BUN/Creatinine Ratio (12.00-20.00) Ratio Glucose (70-110) mg/dL POC Glucose (mg/dL) 257 H 216 H 140 H (70-110) mg/dL Calcium (8.7-10.3) mg/dL 09/07/23 09/07/23 Range/Units 05:48 05:48 WBC 12.85 H (4.50-10.00) X 10*3/uL RBC 3.73 L (4.40-5.60) X 10*6/uL Hgb 10.5 L (13.0-17.0) g/dL Hct 33.4 L (39.6-50.0) % MCHC 31.4 L (32.0-37.0) g/dL RDW 16.7 H (11.5-14.5) % Immature Gran # 0.10 H (0.00-0.04) X 10*3/uL Neutrophils # 11.93 H (1.80-7.70) X 10*3/uL Lymphocytes # 0.36 L (0.90-5.00) X 10*3/uL Eosinophils # 0 L (0.04-0.35) X 10*3/uL Chloride 93 L (96-109) mmol/L Carbon Dioxide 36.3 H (21.6-31.8) mmol/L BUN/Creatinine Ratio 28.86 H (12.00-20.00) Ratio Glucose 128 H (70-110) mg/dL POC Glucose (mg/dL) (70-110) mg/dL Calcium 8.4 L (8.7-10.3) mg/dL Assessment and Plan Plan: Generalized weakness, secondary to ongoing debility and refusal to go to subacute rehabilitation, did not obtain his medications post discharge he was home for 24 hours. Found sitting in a chair in feces and urine. Obviously, the patient is unable to take care of himself and the patient will need placement. For the time being, he is interested in rehabilitation. He may need permanent placement. Chronic hypoxemic respiratory failure secondary to an acute exacerbation of chronic obstructive pulmonary disease Chronic and ongoing tobacco dependence Exacerbation of diastolic CHF with ejection fraction of 40-45% moderate concentric LVH and moderate degree of pulmonary hypertension.repeat echo cardiac exam continues to show RV dilatation and moderate degree of pulmonary hypertension. Ejection fraction is improved and is currently up to 50-55%. Chronic atrial fibrillation, with controlled ventricular rate, anticoagulated on Eliquis, Essential hypertension Hyperlipidemia Diabetes mellitus type 2, complicated by diabetic neuropathy Morbid obesity with BMI of 31 kg/m Chronic pain Umbilical Hernia Plan: Clinically improving Rest or status is stable for now Continue bronchodilators, steroids Check a pro-calcitonin is mildly elevated at 0.2 Educated regarding the importance of complete smoking cessation NicoDerm patch in place Chest exam, admission shows some cardiomegaly and mild changes of CHF, no evidence of pneumonia Social work consult regarding frequent readmissions We will continue to follow and make further recommendations based on his clinical status
[2023-09-07 16:49] LABS: Glucose,Whole Blood 173 mg/dL (70-110)
[2023-09-07 19:54] LABS: Glucose,Whole Blood 269 mg/dL (70-110)
[2023-09-07] MEDS: ESCITALOPRAM 5 MG TAB PO SCH (20:56)
[2023-09-07] MEDS: ATORVASTATIN 40 MG TAB PO SCH (20:56)
[2023-09-07] MEDS: PREGABALIN 75 MG CAP PO SCH (20:56)
[2023-09-07] MEDS: TAMSULOSIN 0.4 MG CAP.ER.24H PO SCH (20:56)
[2023-09-07] MEDS: guaiFENesin 600 MG TABLET.ER PO SCH (20:56)
[2023-09-07] MEDS: NICOTINE 21MG/24HR PATCH TRANSDERM SCH (20:57)
[2023-09-07] MEDS: INSULIN DETEMIR (LEVEMIR) 100 UNIT/ML SYR SQ SCH (21:02)
[2023-09-07] MEDS: MELATONIN 5 MG TABLET PO PRN (21:05)
[2023-09-07] MEDS: DULoxetine HCL 30 MG CAPSULE.DR PO SCH (21:05)
[2023-09-08] MEDS: diazePAM 5 MG TAB PO PRN (00:06)
[2023-09-08] MEDS: methylPREDNISolone SOD SUCCI 125 MG/2 ML VIAL IV SCH ×4 (00:06→17:01)
[2023-09-08] MEDS: SPIRONOLACTONE 25 MG TAB PO SCH (05:31)
[2023-09-08] MEDS: HYDROcodone/APAP 10-325MG 1 EACH TAB PO PRN ×3 (05:31→17:46)
[2023-09-08 06:03] LABS: Glucose,Whole Blood 214 mg/dL (70-110)
[2023-09-08] MEDS: DAPAGLIFLOZIN PROPANEDIOL 10 MG TABLET PO SCH (06:12)
[2023-09-08] MEDS: PANTOPRAZOLE 40 MG TABLET PO SCH ×2 (06:13→17:01)
[2023-09-08] MEDS: THEOPHYLLINE 24 HOUR 400 MG CAP.ER.24H PO SCH (06:13)
[2023-09-08] MEDS: INSULIN ASPART (NovoLOG) 100 UNIT/ML VIAL SQ SCH ×4 (06:13→21:24)
[2023-09-08] MEDS: IPRATROPIUM-ALBUTEROL 3 ML NEB INHALATION SCH ×4 (07:48→18:12)
[2023-09-08] MEDS: SYMBICORT 160-4.5 MCG INHALER INHALATION SCH ×2 (07:49→18:12)
[2023-09-08] MEDS: metFORMIN 500 MG TAB PO SCH ×2 (08:57→21:23)
[2023-09-08] MEDS: APIXABAN 5 MG TAB PO SCH ×2 (08:57→21:23)
[2023-09-08] MEDS: FUROSEMIDE 10 MG/ML 4 ML VIAL IV SCH ×2 (08:58→21:24)
[2023-09-08] MEDS: NYSTATIN 100,000 UNIT/GM POWD 15 GM TOPICAL SCH ×2 (08:58→16:20)
[2023-09-08] MEDS: POTASSIUM CHLORIDE ER 20 MEQ TAB.ER PO SCH (09:00)
[2023-09-08] MEDS: METOPROLOL TARTRATE 50 MG TAB PO SCH ×2 (09:00→21:23)
[2023-09-08 11:16] LABS: Glucose,Whole Blood 256 mg/dL (70-110)
--- NOTE | 2023-09-08 12:57 | P.PN ---
Subjective Progress Note Date: 09/08/23 This is a 72-year-old male patient with a past medical history significant for severe oxygen dependent COPD, normally maintained on 3 L/m nasal cannula, congestive heart failure, chronic atrial fibrillation, diabetes mellitus, hyperlipidemia, hypertension, obesity, GERD and is a ongoing chronic smoker. He was staying at [facility] rehab facility. He has had multiple multiple readmissions to the hospital. He was just discharged from here on 09/01/2023 to home. He had refused to go to subacute rehabilitation. He did not warehouse order picker his medication from the pharmacy. The next day EMS was called to his house and he was still in a chair sitting in feces and urine unable to get up and get himself to the bathroom. He was admitted again on 09/02/2023. He is seen today in consultation. He sitting up in a chair. Awake and alert in no acute distress. He is maintaining O2 saturations in the mid to upper 90s on 3 L/m per nasal cannula. He is afebrile. Hemodynamically stable. The x-ray continues to show cardiomegaly with pulmonary vascular congestion and small bilateral effusions. EKG reveals atrial fibrillation with a controlled ventricular response. White count 15.8. Hemoglobin 11.7. Platelets 231. Sodium 136. Potassium 3.9. Bicarb 33. BUN 20. Creatinine 0.8. Glucose 156. BNP 429. Troponins negative. On today's evaluation of 09/06/2023, the patient has no specific complaints. Is complaining of some ongoing shortness of breath which is attributed to his chronic COPD. The patient was hospitalized as the patient is unable to take care of himself. The patient wants to go to rehabilitation and is interested in going to [facility] on the burns. He is on bronchodilators. He is on steroids. Is on antibiotics. Outpatient medications have been all resumed. In terms of labs , the white cell count at 17 with a hemoglobin 10.4 and a platelet count of 213, sodium is at 136, potassium is at 3.2, BUN is at 20 with a creatinine of 0.7 and a blood sugars at 257. The patient is on insulin and a formal Levemir 20 units daily at bedtime and NovoLog sliding scale coverage. He is also on a nicotine patch. He is chronically debilitated with chronic hypoxic respiratory failure and advanced COPD. On today's evaluation of 09/07/2023, the patient's condition is stable. The pat ient's respiratory status is adequate and is gradually improving. Less short of breath compared to yesterday. Remains on broke a dilated. Remains on steroids. We'll ask case management to work on discharge planning on this patient as the patient may benefit from penitentiary placement. He is still interested in ECF. No new complaints otherwise for now. The echoes at 12.8, he was to 0.5, BUN is at 20 with a creatinine of 0.7 and a sodium level is at 140. On 08/31/2023, no new complaints and the patient is being treated for COPD exacerbation is also being diuresed. Remains on bronchodilators. Remains on steroids. Remains on diuretics. At the same time, were looking into placement for penitentiary for this patient. Case management is on the case. No new labs are available from today. Blood sugars are slightly elevated related to the use of systemic steroids. He is currently on 3 L of O2 nasal cannula. Objective - Vital Signs Vital signs: Vital Signs Temp 98.9 F 09/08/23 07:12 Pulse 100 09/08/23 11:24 Resp 24 09/08/23 08:00 BP 129/78 09/08/23 07:12 Pulse Ox 97 09/08/23 07:12 FiO2 Intake & Output 09/07/23 09/08/23 09/08/23 18:59 06:59 18:59 Intake Total 1000 Output Total 1150 2310 280 Balance -1150 -1310 -280 Intake: Oral 1000 Output: Urine 1150 2310 280 Other: Voiding Method Urinal # Voids 1 # Bowel Movements 1 - Exam GENERAL EXAM: Alert, obese 72-year-old male sitting up in a chair, on 3 L nasal cannula, comfortable in no apparent distress. HEAD: Normocephalic. EYES: Normal reaction of pupils, equal size. NOSE: Clear with pink turbinates. THROAT: No erythema or exudates. NECK: No masses, no JVD. CHEST: No chest wall deformity. LUNGS: Equal air entry with bibasilar crackles, diminished. CVS: S1 and S2 normal with no audible murmur, regular rhythm. ABDOMEN: No hepatosplenomegaly, normal bowel sounds, no guarding or rigidity. SPINE: No scoliosis or deformity SKIN: No rashes CENTRAL NERVOUS SYSTEM: No focal deficits, tone is normal in all 4 extremities. EXTREMITIES: There is 1+ peripheral edema. Changes of chronic venous stasis. No clubbing, no cyanosis. Peripheral pulses are intact. - Labs CBC & Chem 7: 09/07/23 05:48 09/07/23 05:48 Labs: Abnormal Lab Results - Last 24 Hours (Table) 09/07/23 09/07/23 09/07/23 Range/Units 11:59 16:47 19:52 POC Glucose (mg/dL) 315 H 173 H 269 H (70-110) mg/dL 09/08/23 09/08/23 Range/Units 06:00 11:14 POC Glucose (mg/dL) 214 H 256 H (70-110) mg/dL Assessment and Plan Plan: Generalized weakness, secondary to ongoing debility and refusal to go to subacute rehabilitation, did not obtain his medications post discharge he was home for 24 hours. Found sitting in a chair in feces and urine. Obviously, the patient is unable to take care of himself and the patient will need placement. For the time being, he is interested in rehabilitation. He may need permanent placement. Chronic hypoxemic respiratory failure secondary to an acute exacerbation of chronic obstructive pulmonary disease Chronic and ongoing tobacco dependence Exacerbation of diastolic CHF with ejection fraction of 40-45% moderate concentric LVH and moderate degree of pulmonary hypertension.repeat echo cardiac exam continues to show RV dilatation and moderate degree of pulmonary hypertension. Ejection fraction is improved and is currently up to 50-55%. Chronic atrial fibrillation, with controlled ventricular rate, anticoagulated on Eliquis, Essential hypertension Hyperlipidemia Diabetes mellitus type 2, complicated by diabetic neuropathy Morbid obesity with BMI of 31 kg/m Chronic pain Umbilical Hernia Plan: We'll continue same treatment for the time being Clinically improving Continue diuretics for another 24 hours in the form of IV Lasix Continue bronchodilators, steroids, the patient is currently on IV Solu-Medrol 60 mg every 6 hours Check a pro-calcitonin is mildly elevated at 0.2 Educated regarding the importance of complete smoking cessation NicoDerm patch in place Chest exam, admission shows some cardiomegaly and mild changes of CHF, no evidence of pneumonia Social work consult regarding frequent readmissions We will continue to follow and make further recommendations based on his clinical status. The patient will likely need placement and case management is working in getting this patient place.
[2023-09-08 16:25] LABS: Glucose,Whole Blood 310 mg/dL (70-110)
--- NOTE | 2023-09-08 17:39 | P.PN ---
Subjective 72-year-old male well known to the emergency department who presents with weakness. He has a history of COPD, A. fib. Was recently hospitalized at our facility and discharged home yesterday. States he was discharged home with home health care. He was refusing transfer to a rehab facility. Patient subsequently went home and sat in his chair. He was defecating and urinating on himself. He was too weak to get up and ambulate. Presents again today stating that he does feel he needs to be in a nursing facility. He did not take any of his medications today. Denies any chest pain. Has chronic shortness of breath. No other alleviating, precipitating or modified factors Upon arrival to ED patient was found to be disheveled and covered in feces and urine EKG reveals atrial fibrillation with heart rate of [address] elevation or depression Blood work completed views a WBC of 17, hemoglobin of 12.5, platelet count of 309, sodium 133 AND 2.7, BUN/creatinine of 25/0.58, lactic acid of 2.2 and troponin at 0.0-4 Chest x-ray reported as cardiac silhouette mildly enlarged but pulmonary vessels within normal limits; questionable small bilateral pleural effusion on lateral films Patient is admitted for weakness and debility and adult failure to thrive; we will need consult with case management for discharge 24 hour interval change 09/05/2023 Patient is sitting up in bedside chair; reports improvement in breathing; patient reports uncontrolled pain and requesting [place] to be changed to a stronger pain medication Vital signs are reviewed and are stable Temp 98.4, pulse 112, respirations 22, blood pressure 146/67, O2 saturation 95% on 4 L LABS: White count 13.2, hemoglobin 11.0, platelets 235, sodium 129, potassium 3.1, BUN 21, creatinine 0.54, calcium 7.1, troponin-0.024, less than 0.012 EKG: Atrial fibrillation with rapid ventricular response IMAGING: Chest x-ray dated 09/02/2023 demonstrates the cardiac silhouette is mildly enlarged and the pulmonary vessels are within normal limits, there is no focal area of consolidation, question small bilateral pleural effusions on the lateral evaluation best visualized. Chest x-ray dated 09/04/2023 demonstrates cardiomegaly, pulmonary vascular congestion and bilateral pleural effusions, with BNP for congestive heart failure. Cardiology recommending to increase metoprolol up to 200 mg twice a day with one-time extra dose of metoprolol 25 mg 1 -- Patient has been evaluated by pulmonary service; recommended to continue with current management 09/06/2023 Patient this morning is still tachypneic and short of breath with some expiratory wheezing, his kept on IV Lasix 40 mg every 8 hours and IV Solu-Medrol 60 mg. His creatinine 0.7 today. Postop labs look stable. Patient is asking specifically about more pain medication of opioids and Valium, risks and benefits are explained for him and he verbalized understanding and acceptance Maze on home dose of liquids, Zithromax, Solu-Medrol 60 mg on IV Lasix which going to switch him to twice daily 09/07/2023 Patient breathing is improved on close to baseline, no wheezing, mildly tachypn eic while at rest, patient is seen in bed most of the time Is hemodynamically stable Labs look stable with dilute BC at 12,000 while he is on steroids, hemoglobin and creatinine are stable and within the reference range. He remains on Zithromax, home dose of liquids 5 mg, IV Lasix 40 mg twice daily, IV Solu-Medrol Patient is getting medically stable for discharge. However patient is not helping himself regarding his discharge, for example Tylenol did not pick that ECF he needs to go for rehab. We tried to encourage the patient. As discussed with the bedside nurse and clinical case manager Patient may be considered for discharge soon 09/08/2023 Patient breathing is improving slowly and gradually. Remains on IV salmeterol 60 mg and IV Lasix 40 mg twice daily Patient possible discharge to subacute rehab Sugar still uncontrolled at Levemir 10 units daily on the top of his 20 units at bedtime Possible discharge in 24-48 hours Objective - Vital Signs Vital signs: Vital Signs Temp 98.7 F 09/08/23 13:32 Pulse 96 09/08/23 15:21 Resp 21 09/08/23 13:32 BP 138/74 09/08/23 13:32 Pulse Ox 97 09/08/23 13:32 FiO2 Intake & Output 09/07/23 09/08/23 09/08/23 18:59 06:59 18:59 Intake Total 1000 480 Output Total 1150 2310 1325 Balance -1150 -1310 -845 Intake: Oral 1000 480 Output: Urine 1150 2310 1325 Other: Voiding Method Urinal # Voids 1 # Bowel Movements 1 1 - Exam GENERAL: The patient is alert and oriented x3, not in any acute distress. Well developed, well nourished. HEENT: Pupils are round and equally reacting to light. EOMI. No scleral icterus. No conjunctival pallor. Normocephalic, atraumatic. No pharyngeal erythema. No thyromegaly. CARDIOVASCULAR: S1 and S2 present. No murmurs, rubs, or gallops. -PULMONARY: Chest is clear to auscultation, bilateral expiratory wheezing , no crackles. ABDOMEN: Soft, nontender, nondistended, normoactive bowel sounds. No palpable organomegaly. MUSCULOSKELETAL: No joint swelling or deformity. EXTREMITIES: No cyanosis, clubbing, or pedal edema. NEUROLOGICAL: Gross neurological examination did not reveal any focal deficits. SKIN: No rashes. no petechiae. - Labs CBC & Chem 7: 09/07/23 05:48 09/07/23 05:48 Labs: Abnormal Lab Results - Last 24 Hours (Table) 09/07/23 09/08/23 09/08/23 Range/Units 19:52 06:00 11:14 POC Glucose (mg/dL) 269 H 214 H 256 H (70-110) mg/dL 09/08/23 Range/Units 16:23 POC Glucose (mg/dL) 310 H (70-110) mg/dL Assessment and Plan Assessment: 1. Weakness/generalized debility versus metabolic encephalopathy ( improved ) related to acute renal injury -- We will consult PT/OT for further evaluation -- Case management for discharge planning, possible ECF for subacute rehab 2. Acute COPD exacerbation - Continue with IV Solu-Medrol - Pulmonary team consult 3. Mild [facility]; increase fluid intake; monitor renal function and electrolytes; avoid nephrotoxins and hypotension Improving 4. Chronic hypoxic respiratory failure; continue with home oxygen therapy 5. Acute on Chronic CHF with reduced EF of 40-45% - Echocardiogram reveals slight ventricular dilation - Continue with IV Lasix for another day and may switch him to oral dose in 24- 48 hours 6. Chronic atrial fibrillation; continue with systemic anticoagulation; patient remains rate controlled 7. Hypertension; metoprolol 50 g twice a day 8. Hyperlipidemia; Lipitor 40 mg 2 daily at bedtime 9. Diabetes mellitus type 2 with long-term insulin use DVT prophylaxis; SCDs CODE STATUS; full code
[2023-09-08] MEDS: INSULIN DETEMIR (LEVEMIR) 100 UNIT/ML SYR SQ SCH (18:20)
[2023-09-08 20:19] LABS: Glucose,Whole Blood 235 mg/dL (70-110)
[2023-09-08] MEDS: IPRATROPIUM-ALBUTEROL 3 ML NEB INHALATION PRN (20:42)
[2023-09-08] MEDS ORDERED: INSULIN DETEMIR (LEVEMIR) 100 UNIT/ML SYR SQ SCH (21:00)
[2023-09-08] MEDS: TAMSULOSIN 0.4 MG CAP.ER.24H PO SCH (21:23)
[2023-09-08] MEDS: ATORVASTATIN 40 MG TAB PO SCH (21:23)
[2023-09-08] MEDS: guaiFENesin 600 MG TABLET.ER PO SCH (21:23)
[2023-09-08] MEDS: PREGABALIN 75 MG CAP PO SCH (21:23)
[2023-09-08] MEDS: MELATONIN 5 MG TABLET PO PRN (21:23)
[2023-09-08] MEDS: ESCITALOPRAM 5 MG TAB PO SCH (21:24)
[2023-09-08] MEDS: NICOTINE 21MG/24HR PATCH TRANSDERM SCH (21:24)
[2023-09-08] MEDS: DULoxetine HCL 30 MG CAPSULE.DR PO SCH (21:24)
[2023-09-09] MEDS: methylPREDNISolone SOD SUCCI 125 MG/2 ML VIAL IV SCH ×3 (00:17→12:00)
[2023-09-09] MEDS: diazePAM 5 MG TAB PO PRN (00:17)
[2023-09-09] MEDS: NYSTATIN 100,000 UNIT/GM POWD 15 GM TOPICAL SCH ×4 (00:22→21:14)
[2023-09-09] MEDS: IPRATROPIUM-ALBUTEROL 3 ML NEB INHALATION PRN ×2 (00:22→04:16)
[2023-09-09] MEDS: HYDROcodone/APAP 10-325MG 1 EACH TAB PO PRN ×4 (04:52→19:00)
[2023-09-09 05:55] LABS: Glucose,Whole Blood 200 mg/dL (70-110)
[2023-09-09] MEDS: PANTOPRAZOLE 40 MG TABLET PO SCH ×2 (06:45→17:05)
[2023-09-09] MEDS: THEOPHYLLINE 24 HOUR 400 MG CAP.ER.24H PO SCH (06:45)
[2023-09-09] MEDS: SPIRONOLACTONE 25 MG TAB PO SCH (06:45)
[2023-09-09] MEDS: DAPAGLIFLOZIN PROPANEDIOL 10 MG TABLET PO SCH (06:45)
[2023-09-09] MEDS: INSULIN DETEMIR (LEVEMIR) 100 UNIT/ML SYR SQ SCH ×2 (06:46→21:12)
[2023-09-09] MEDS: INSULIN ASPART (NovoLOG) 100 UNIT/ML VIAL SQ SCH ×4 (06:46→21:11)
[2023-09-09] MEDS: APIXABAN 5 MG TAB PO SCH ×2 (08:05→21:13)
[2023-09-09] MEDS: metFORMIN 500 MG TAB PO SCH ×2 (08:05→21:13)
[2023-09-09] MEDS: POTASSIUM CHLORIDE ER 20 MEQ TAB.ER PO SCH (08:05)
[2023-09-09] MEDS: METOPROLOL TARTRATE 50 MG TAB PO SCH ×2 (08:05→21:12)
[2023-09-09] MEDS: IPRATROPIUM-ALBUTEROL 3 ML NEB INHALATION SCH ×4 (08:14→20:55)
[2023-09-09] MEDS: SYMBICORT 160-4.5 MCG INHALER INHALATION SCH ×2 (08:14→20:55)
[2023-09-09] MEDS: FUROSEMIDE 10 MG/ML 4 ML VIAL IV SCH ×2 (08:52→21:11)
--- NOTE | 2023-09-09 11:05 | CDI ---
Documentation Clarification Form Date: 09/09/2023 10:32:34 AM From: Teresa Carlisle RN, CCDS Phone: [phone] Admit Date: 09/02/2023 06:06:00 PM Patient Name: Olegario Villela Visit Number: [id number] Discharge Date: ATTENTION: The Clinical Documentation Specialists (CDI) and [facility] Coding Staff appreciate your assistance in clarifying documentation. Please respond to the clarification below the line at the bottom and electronically sign. The CDI & [facility] Coding staff will review the response and follow-up if needed. Please note: Queries are made part of the Legal Health Record. If you have any questions, please contact the author of this message via ITS. Dr. Landeros E Sheet Conflicting documentation has been found in the medical record. As attending physician, please provide clarification. 09/08 Pulmonary progress note: Exacerbation of diastolic CHF with ejection fraction of 40-45% moderate concentric LVH and moderate degree of pulmonary hypertension. Repeat echo cardiac exam continues to show RV dilatation and moderate degree of pulmonary hypertension. Ejection fraction is improved and is currently up to 50-55%. 09/06 Attending progress notes: Acute on Chronic CHF with reduced EF of 40-45% - Echocardiogram reveals slight ventricular dilation 08/18/23 ECHO: Left ventricular ejection fraction is estimated at 50-55% Left ventricular cavity normal Moderate concentric left ventricular hypertrophy. Severe right ventricular dilation. Moderate pulmonary hypertension. Aortic sclerosis with mild aortic stenosis. No pericardial effusion. History/Risk Factors: Atrial Fibrillation, Asthma, COPD, Diabetes Mellitus, GERD/Reflux, Hyperlipidemia, Hypertension, Osteoarthritis Clinical Indicators: 72-year-old male present to ED with complaints of weakness. Chest x-ray dated 09/04/2023 demonstrates cardiomegaly, pulmonary vascular congestion and bilateral pleural effusions, with BNP for congestive heart failure. 124/76 115 19 98.4 93% 3/L Treatment: Compressor House Operator/Telemetry Lipitor 40 MG PO HS 09/03-09/09 Lasix 40 MG IV Q 8HR111/05 -09/06 then, Q12 HRS 09/06-09/09 Lopressor 100MG PO BID 09/04-09/09 Aldactone 25 MG PO Daily 09/03-09/09 Please clarify which diagnosis is most appropriate: [ ] Exacerbation of diastolic CHF with ejection fraction of 40-45% Ejection fraction is improved and is currently up to 50-55%. [ x ] Acute on Chronic CHF with reduced EF of 40-45% [ ] Other (please specify) [ ] Unable to determine (Template Last Revised: November 2020) MTDD
[2023-09-09 11:24] LABS: Glucose,Whole Blood 345 mg/dL (70-110)
[2023-09-09 16:19] LABS: Glucose,Whole Blood 223 mg/dL (70-110)
--- NOTE | 2023-09-09 16:49 | P.PN ---
Subjective Progress Note Date: 09/09/23 This is a 72-year-old male patient with a past medical history significant for severe oxygen dependent COPD, normally maintained on 3 L/m nasal cannula, congestive heart failure, chronic atrial fibrillation, diabetes mellitus, hyperlipidemia, hypertension, obesity, GERD and is a ongoing chronic smoker. He was staying at [facility] rehab facility. He has had multiple multiple readmissions to the hospital. He was just discharged from here on 09/01/2023 to home. He had refused to go to subacute rehabilitation. He did not picking tech his medication from the pharmacy. The next day EMS was called to his house and he was still in a chair sitting in feces and urine unable to get up and get himself to the bathroom. He was admitted again on 09/02/2023. He is seen today in consultation. He sitting up in a chair. Awake and alert in no acute distress. He is maintaining O2 saturations in the mid to upper 90s on 3 L/m per nasal cannula. He is afebrile. Hemodynamically stable. The x-ray continues to show cardiomegaly with pulmonary vascular congestion and small bilateral effusions. EKG reveals atrial fibrillation with a controlled ventricular response. White count 15.8. Hemoglobin 11.7. Platelets 231. Sodium 136. Potassium 3.9. Bicarb 33. BUN 20. Creatinine 0.8. Glucose 156. BNP 429. Troponins negative. On today's evaluation of 09/06/2023, the patient has no specific complaints. Is complaining of some ongoing shortness of breath which is attributed to his chronic COPD. The patient was hospitalized as the patient is unable to take care of himself. The patient wants to go to rehabilitation and is interested in going to [facility] on the burns. He is on bronchodilators. He is on steroids. Is on antibiotics. Outpatient medications have been all resumed. In terms of labs , the white cell count at 17 with a hemoglobin 10.4 and a platelet count of 213, sodium is at 136, potassium is at 3.2, BUN is at 20 with a creatinine of 0.7 and a blood sugars at 257. The patient is on insulin and a formal Levemir 20 units daily at bedtime and NovoLog sliding scale coverage. He is also on a nicotine patch. He is chronically debilitated with chronic hypoxic respiratory failure and advanced COPD. On today's evaluation of 09/07/2023, the patient's condition is stable. The pat ient's respiratory status is adequate and is gradually improving. Less short of breath compared to yesterday. Remains on broke a dilated. Remains on steroids. We'll ask case management to work on discharge planning on this patient as the patient may benefit from jail placement. He is still interested in ECF. No new complaints otherwise for now. The echoes at 12.8, he was to 0.5, BUN is at 20 with a creatinine of 0.7 and a sodium level is at 140. On 08/31/2023, no new complaints and the patient is being treated for COPD exacerbation is also being diuresed. Remains on bronchodilators. Remains on steroids. Remains on diuretics. At the same time, were looking into placement for jail for this patient. Case management is on the case. No new labs are available from today. Blood sugars are slightly elevated related to the use of systemic steroids. He is currently on 3 L of O2 nasal cannula. On today's evaluation of 09/09/2023, no new complaints and the patient is still being treated for COPD exacerbation and the same time he is being considered for placement. The patient on IV Solu-Medrol. The patient is on room air oxygen with a pulse ox of 96%. Hemodynamically, the patient is stable. No new labs are available from today. Objective - Vital Signs Vital signs: Vital Signs Temp 97.8 F 09/09/23 13:56 Pulse 84 09/09/23 13:56 Resp 20 09/09/23 13:56 BP 138/79 09/09/23 13:56 Pulse Ox 96 09/09/23 13:56 FiO2 Intake & Output 09/08/23 09/09/23 09/09/23 18:59 06:59 18:59 Intake Total 480 Output Total 1325 2150 Balance -845 -2150 Intake: Oral 480 Output: Urine 1325 2150 Other: Voiding Method Urinal # Bowel Movements 1 - Exam GENERAL EXAM: Alert, obese 72-year-old male sitting up in a chair, on 3 L nasal cannula, comfortable in no apparent distress. HEAD: Normocephalic. EYES: Normal reaction of pupils, equal size. NOSE: Clear with pink turbinates. THROAT: No erythema or exudates. NECK: No masses, no JVD. CHEST: No chest wall deformity. LUNGS: Equal air entry with bibasilar crackles, diminished. CVS: S1 and S2 normal with no audible murmur, regular rhythm. ABDOMEN: No hepatosplenomegaly, normal bowel sounds, no guarding or rigidity. SPINE: No scoliosis or deformity SKIN: No rashes CENTRAL NERVOUS SYSTEM: No focal deficits, tone is normal in all 4 extremities. EXTREMITIES: There is 1+ peripheral edema. Changes of chronic venous stasis. No clubbing, no cyanosis. Peripheral pulses are intact. - Labs CBC & Chem 7: 09/07/23 05:48 09/07/23 05:48 Labs: Abnormal Lab Results - Last 24 Hours (Table) 09/08/23 09/08/23 09/09/23 Range/Units 16:23 20:16 05:49 POC Glucose (mg/dL) 310 H 235 H 200 H (70-110) mg/dL 09/09/23 Range/Units 11:21 POC Glucose (mg/dL) 345 H (70-110) mg/dL Assessment and Plan Plan: Generalized weakness, secondary to ongoing debility and refusal to go to subacute rehabilitation, did not obtain his medications post discharge he was home for 24 hours. Found sitting in a chair in feces and urine. Obviously, the patient is unable to take care of himself and the patient will need placement. For the time being, he is interested in rehabilitation. He may need permanent placement. Chronic hypoxemic respiratory failure secondary to an acute exacerbation of chronic obstructive pulmonary disease, oxygen patient is improved Chronic and ongoing tobacco dependence Exacerbation of diastolic CHF with ejection fraction of 40-45% moderate concentric LVH and moderate degree of pulmonary hypertension.repeat echo cardiac exam continues to show RV dilatation and moderate degree of pulmonary hypertension. Ejection fraction is improved and is currently up to 50-55%. Chronic atrial fibrillation, with controlled ventricular rate, anticoagulated on Eliquis, Essential hypertension Hyperlipidemia Diabetes mellitus type 2, complicated by diabetic neuropathy Morbid obesity with BMI of 31 kg/m Chronic pain Umbilical Hernia Plan: We'll continue same treatment for the time being Clinically improving Continue diuretics for another 24 hours in the form of IV Lasix Continue bronchodilators Stop the IV Solu-Medrol and start the patient prednisone burst taper starting at 40 mg Check a pro-calcitonin is mildly elevated at 0.2 Educated regarding the importance of complete smoking cessation NicoDerm patch in place Chest exam, admission shows some cardiomegaly and mild changes of CHF, no evidence of pneumonia Social work consult regarding frequent readmissions We will continue to follow and make further recommendations based on his clinical status. The patient will likely need placement and case management is working in getting this patient place.
--- NOTE | 2023-09-09 20:25 | P.PN ---
Subjective 72-year-old male well known to the emergency department who presents with weakness. He has a history of COPD, A. fib. Was recently hospitalized at our facility and discharged home yesterday. States he was discharged home with home health care. He was refusing transfer to a rehab facility. Patient subsequently went home and sat in his chair. He was defecating and urinating on himself. He was too weak to get up and ambulate. Presents again today stating that he does feel he needs to be in a nursing facility. He did not take any of his medications today. Denies any chest pain. Has chronic shortness of breath. No other alleviating, precipitating or modified factors Upon arrival to ED patient was found to be disheveled and covered in feces and urine EKG reveals atrial fibrillation with heart rate of [address] elevation or depression Blood work completed views a WBC of 17, hemoglobin of 12.5, platelet count of 309, sodium 133 AND 2.7, BUN/creatinine of 25/0.58, lactic acid of 2.2 and troponin at 0.0-4 Chest x-ray reported as cardiac silhouette mildly enlarged but pulmonary vessels within normal limits; questionable small bilateral pleural effusion on lateral films Patient is admitted for weakness and debility and adult failure to thrive; we will need consult with case management for discharge 24 hour interval change 09/05/2023 Patient is sitting up in bedside chair; reports improvement in breathing; patient reports uncontrolled pain and requesting [place] to be changed to a stronger pain medication Vital signs are reviewed and are stable Temp 98.4, pulse 112, respirations 22, blood pressure 146/67, O2 saturation 95% on 4 L LABS: White count 13.2, hemoglobin 11.0, platelets 235, sodium 129, potassium 3.1, BUN 21, creatinine 0.54, calcium 7.1, troponin-0.024, less than 0.012 EKG: Atrial fibrillation with rapid ventricular response IMAGING: Chest x-ray dated 09/02/2023 demonstrates the cardiac silhouette is mildly enlarged and the pulmonary vessels are within normal limits, there is no focal area of consolidation, question small bilateral pleural effusions on the lateral evaluation best visualized. Chest x-ray dated 09/04/2023 demonstrates cardiomegaly, pulmonary vascular congestion and bilateral pleural effusions, with BNP for congestive heart failure. Cardiology recommending to increase metoprolol up to 200 mg twice a day with one-time extra dose of metoprolol 25 mg 1 -- Patient has been evaluated by pulmonary service; recommended to continue with current management 09/06/2023 Patient this morning is still tachypneic and short of breath with some expiratory wheezing, his kept on IV Lasix 40 mg every 8 hours and IV Solu-Medrol 60 mg. His creatinine 0.7 today. Postop labs look stable. Patient is asking specifically about more pain medication of opioids and Valium, risks and benefits are explained for him and he verbalized understanding and acceptance Maze on home dose of liquids, Zithromax, Solu-Medrol 60 mg on IV Lasix which going to switch him to twice daily 09/07/2023 Patient breathing is improved on close to baseline, no wheezing, mildly tachypn eic while at rest, patient is seen in bed most of the time Is hemodynamically stable Labs look stable with dilute BC at 12,000 while he is on steroids, hemoglobin and creatinine are stable and within the reference range. He remains on Zithromax, home dose of liquids 5 mg, IV Lasix 40 mg twice daily, IV Solu-Medrol Patient is getting medically stable for discharge. However patient is not helping himself regarding his discharge, for example Tylenol did not pick that ECF he needs to go for rehab. We tried to encourage the patient. As discussed with the bedside nurse and rehabilitation case coordinator Patient may be considered for discharge soon 09/08/2023 Patient breathing is improving slowly and gradually. Remains on IV salmeterol 60 mg and IV Lasix 40 mg twice daily Patient possible discharge to subacute rehab Sugar still uncontrolled at Levemir 10 units daily on the top of his 20 units at bedtime Possible discharge in 24-48 hours 09/09/2023 Patient breathing improving slowly and gradually, no chest pain no coughing. No other new complaints I have lengthy discussion with the patient about his problems and mechanism of his COPD and the treatment strategy and he verbalized understanding and accep tance. Patient cirrhosis wish to prednisone Plan to switch IV Lasix to oral dose Patient requires ECF for rehab upon discharge Possible discharge in 24-48 hours if he keeps improving Objective - Vital Signs Vital signs: Vital Signs Temp 97.8 F 09/09/23 13:56 Pulse 104 H 09/09/23 15:37 Resp 20 09/09/23 13:56 BP 138/79 09/09/23 13:56 Pulse Ox 96 09/09/23 13:56 FiO2 Intake & Output 09/08/23 09/09/23 09/09/23 18:59 06:59 18:59 Intake Total 480 Output Total 1325 2150 Balance -845 -2150 Intake: Oral 480 Output: Urine 1325 2150 Other: Voiding Method Urinal # Bowel Movements 1 - Exam GENERAL: The patient is alert and oriented x3, not in any acute distress. Well developed, well nourished. HEENT: Pupils are round and equally reacting to light. EOMI. No scleral icterus. No conjunctival pallor. Normocephalic, atraumatic. No pharyngeal erythema. No thyromegaly. CARDIOVASCULAR: S1 and S2 present. No murmurs, rubs, or gallops. -PULMONARY: Chest is clear to auscultation, bilateral expiratory wheezing , no crackles. ABDOMEN: Soft, nontender, nondistended, normoactive bowel sounds. No palpable organomegaly. MUSCULOSKELETAL: No joint swelling or deformity. EXTREMITIES: No cyanosis, clubbing, or pedal edema. NEUROLOGICAL: Gross neurological examination did not reveal any focal deficits. SKIN: No rashes. no petechiae. - Labs CBC & Chem 7: 09/07/23 05:48 09/07/23 05:48 Labs: Abnormal Lab Results - Last 24 Hours (Table) 09/08/23 09/09/23 09/09/23 Range/Units 20:16 05:49 11:21 POC Glucose (mg/dL) 235 H 200 H 345 H (70-110) mg/dL 09/09/23 Range/Units 16:17 POC Glucose (mg/dL) 223 H (70-110) mg/dL Assessment and Plan Assessment: 1. Weakness/generalized debility versus metabolic encephalopathy ( improved ) related to acute renal injury -- We will consult PT/OT for further evaluation -- Case management for discharge planning, possible ECF for subacute rehab 2. Acute COPD exacerbation - Continue with oral prednisone - Pulmonary team consult 3. Mild [facility]; increase fluid intake; monitor renal function and electrolytes; avoid nephrotoxins and hypotension Improving 4. Chronic hypoxic respiratory failure; continue with home oxygen therapy 5. Acute on Chronic CHF with reduced EF of 40-45% - Echocardiogram reveals slight ventricular dilation - Continue with IV Lasix for another day and may switch him to oral dose in 24- 48 hours 6. Chronic atrial fibrillation; continue with systemic anticoagulation; patient remains rate controlled 7. Hypertension; metoprolol 50 g twice a day 8. Hyperlipidemia; Lipitor 40 mg 2 daily at bedtime 9. Diabetes mellitus type 2 with long-term insulin use DVT prophylaxis; SCDs CODE STATUS; full code
[2023-09-09 20:40] LABS: Glucose,Whole Blood 289 mg/dL (70-110)
[2023-09-09] MEDS: NICOTINE 21MG/24HR PATCH TRANSDERM SCH (21:11)
[2023-09-09] MEDS: ESCITALOPRAM 5 MG TAB PO SCH (21:12)
[2023-09-09] MEDS: DULoxetine HCL 30 MG CAPSULE.DR PO SCH (21:12)
[2023-09-09] MEDS: guaiFENesin 600 MG TABLET.ER PO SCH (21:12)
[2023-09-09] MEDS: PREGABALIN 75 MG CAP PO SCH (21:13)
[2023-09-09] MEDS: TAMSULOSIN 0.4 MG CAP.ER.24H PO SCH (21:13)
[2023-09-09] MEDS: MELATONIN 5 MG TABLET PO PRN (21:13)
[2023-09-09] MEDS: ATORVASTATIN 40 MG TAB PO SCH (21:13)
[2023-09-09] MEDS ORDERED: MELATONIN 5 MG TABLET PO ONE (21:53)
[2023-09-10] MEDS: IPRATROPIUM-ALBUTEROL 3 ML NEB INHALATION PRN (00:02)
[2023-09-10] MEDS: HYDROcodone/APAP 10-325MG 1 EACH TAB PO PRN ×5 (00:23→20:48)
[2023-09-10] MEDS: diazePAM 5 MG TAB PO PRN (00:23)
[2023-09-10 05:41] LABS: Glucose,Whole Blood 119 mg/dL (70-110)
[2023-09-10] MEDS: INSULIN ASPART (NovoLOG) 100 UNIT/ML VIAL SQ SCH ×4 (06:03→20:47)
[2023-09-10] MEDS: PANTOPRAZOLE 40 MG TABLET PO SCH ×2 (06:39→17:12)
[2023-09-10] MEDS: THEOPHYLLINE 24 HOUR 400 MG CAP.ER.24H PO SCH (06:39)
[2023-09-10] MEDS: SPIRONOLACTONE 25 MG TAB PO SCH (06:39)
[2023-09-10] MEDS: DAPAGLIFLOZIN PROPANEDIOL 10 MG TABLET PO SCH (06:39)
[2023-09-10] MEDS: INSULIN DETEMIR (LEVEMIR) 100 UNIT/ML SYR SQ SCH ×2 (06:39→20:47)
[2023-09-10] MEDS: NYSTATIN 100,000 UNIT/GM POWD 15 GM TOPICAL SCH ×3 (07:57→21:28)
[2023-09-10] MEDS: APIXABAN 5 MG TAB PO SCH ×2 (07:58→20:49)
[2023-09-10] MEDS: METOPROLOL TARTRATE 50 MG TAB PO SCH ×2 (07:58→20:49)
[2023-09-10] MEDS: POTASSIUM CHLORIDE ER 20 MEQ TAB.ER PO SCH (07:58)
[2023-09-10] MEDS: predniSONE 20 MG TAB PO SCH (07:58)
[2023-09-10] MEDS: metFORMIN 500 MG TAB PO SCH ×2 (07:59→20:50)
[2023-09-10] MEDS ORDERED: predniSONE 20 MG TAB PO SCH (09:00)
[2023-09-10] MEDS: FUROSEMIDE 10 MG/ML 4 ML VIAL IV SCH ×2 (09:03→21:26)
[2023-09-10] MEDS: IPRATROPIUM-ALBUTEROL 3 ML NEB INHALATION SCH ×4 (09:23→18:08)
[2023-09-10] MEDS: SYMBICORT 160-4.5 MCG INHALER INHALATION SCH ×2 (09:24→18:08)
[2023-09-10 11:45] LABS: Glucose,Whole Blood 191 mg/dL (70-110)
--- NOTE | 2023-09-10 12:52 | P.PN ---
Subjective Progress Note Date: 09/10/23 This is a 72-year-old male patient with a past medical history significant for severe oxygen dependent COPD, normally maintained on 3 L/m nasal cannula, congestive heart failure, chronic atrial fibrillation, diabetes mellitus, hyperlipidemia, hypertension, obesity, GERD and is a ongoing chronic smoker. He was staying at [facility] rehab facility. He has had multiple multiple readmissions to the hospital. He was just discharged from here on 09/01/2023 to home. He had refused to go to subacute rehabilitation. He did not hot die picker his medication from the pharmacy. The next day EMS was called to his house and he was still in a chair sitting in feces and urine unable to get up and get himself to the bathroom. He was admitted again on 09/02/2023. He is seen today in consultation. He sitting up in a chair. Awake and alert in no acute distress. He is maintaining O2 saturations in the mid to upper 90s on 3 L/m per nasal cannula. He is afebrile. Hemodynamically stable. The x-ray continues to show cardiomegaly with pulmonary vascular congestion and small bilateral effusions. EKG reveals atrial fibrillation with a controlled ventricular response. White count 15.8. Hemoglobin 11.7. Platelets 231. Sodium 136. Potassium 3.9. Bicarb 33. BUN 20. Creatinine 0.8. Glucose 156. BNP 429. Troponins negative. On today's evaluation of 09/06/2023, the patient has no specific complaints. Is complaining of some ongoing shortness of breath which is attributed to his chronic COPD. The patient was hospitalized as the patient is unable to take care of himself. The patient wants to go to rehabilitation and is interested in going to [facility] on the burns. He is on bronchodilators. He is on steroids. Is on antibiotics. Outpatient medications have been all resumed. In terms of labs , the white cell count at 17 with a hemoglobin 10.4 and a platelet count of 213, sodium is at 136, potassium is at 3.2, BUN is at 20 with a creatinine of 0.7 and a blood sugars at 257. The patient is on insulin and a formal Levemir 20 units daily at bedtime and NovoLog sliding scale coverage. He is also on a nicotine patch. He is chronically debilitated with chronic hypoxic respiratory failure and advanced COPD. On today's evaluation of 09/07/2023, the patient's condition is stable. The pat lex's respiratory status is adequate and is gradually improving. Less short of breath compared to yesterday. Remains on broke a dilated. Remains on steroids. We'll ask case management to work on discharge planning on this patient as the patient may benefit from residential placement. He is still interested in ECF. No new complaints otherwise for now. The echoes at 12.8, he was to 0.5, BUN is at 20 with a creatinine of 0.7 and a sodium level is at 140. On 08/31/2023, no new complaints and the patient is being treated for COPD exacerbation is also being diuresed. Remains on bronchodilators. Remains on steroids. Remains on diuretics. At the same time, were looking into placement for residential for this patient. Case management is on the case. No new labs are available from today. Blood sugars are slightly elevated related to the use of systemic steroids. He is currently on 3 L of O2 nasal cannula. On today's evaluation of 09/09/2023, no new complaints and the patient is still being treated for COPD exacerbation and the same time he is being considered for placement. The patient on IV Solu-Medrol. The patient is on room air oxygen with a pulse ox of 96%. Hemodynamically, the patient is stable. No new labs are available from today. On 09/10/2023, no new complaints and the patient is still being treated for an acute choked exacerbation. Is currently on a prednisone burst taper starting with 40 mg. He remains on Symbicort. He is on [facility] a [id number]. Working on placement. No new labs are available from today. He is on 3 L with a pulse ox of 96% Objective - Vital Signs Vital signs: Vital Signs Temp 97.6 F 09/10/23 07:06 Pulse 98 09/10/23 09:36 Resp 18 09/10/23 09:36 BP 125/88 09/10/23 07:06 Pulse Ox 96 09/10/23 07:06 FiO2 Intake & Output 09/09/23 09/10/23 09/10/23 18:59 06:59 18:59 Output Total 1500 200 Balance -1500 -200 Output: Urine 1500 200 Other: Voiding Method Urinal Urinal # Voids 3 - Exam GENERAL EXAM: Alert, obese 72-year-old male sitting up in a chair, on 3 L nasal cannula, comfortable in no apparent distress. HEAD: Normocephalic. EYES: Normal reaction of pupils, equal size. NOSE: Clear with pink turbinates. THROAT: No erythema or exudates. NECK: No masses, no JVD. CHEST: No chest wall deformity. LUNGS: Equal air entry with bibasilar crackles, diminished. CVS: S1 and S2 normal with no audible murmur, regular rhythm. ABDOMEN: No hepatosplenomegaly, normal bowel sounds, no guarding or rigidity. SPINE: No scoliosis or deformity SKIN: No rashes CENTRAL NERVOUS SYSTEM: No focal deficits, tone is normal in all 4 extremities. EXTREMITIES: There is 1+ peripheral edema. Changes of chronic venous stasis. No clubbing, no cyanosis. Peripheral pulses are intact. - Labs CBC & Chem 7: 09/07/23 05:48 09/07/23 05:48 Labs: Abnormal Lab Results - Last 24 Hours (Table) 09/09/23 09/09/23 09/09/23 Range/Units 11:21 16:17 20:32 POC Glucose (mg/dL) 345 H 223 H 289 H (70-110) mg/dL 09/10/23 Range/Units 05:39 POC Glucose (mg/dL) 119 H (70-110) mg/dL Assessment and Plan Plan: Generalized weakness, secondary to ongoing debility and refusal to go to subacute rehabilitation, did not obtain his medications post discharge he was home for 24 hours. Found sitting in a chair in feces and urine. Obviously, the patient is unable to take care of himself and the patient will need placement. For the time being, he is interested in rehabilitation. He may need permanent placement. Chronic hypoxemic respiratory failure secondary to an acute exacerbation of chronic obstructive pulmonary disease, oxygen patient is improved, currently on 3 L Chronic and ongoing tobacco dependence Exacerbation of diastolic CHF with ejection fraction of 40-45% moderate concentric LVH and moderate degree of pulmonary hypertension.repeat echo cardiac exam continues to show RV dilatation and moderate degree of pulmonary hypertension. Ejection fraction is improved and is currently up to 50-55%. Chronic atrial fibrillation, with controlled ventricular rate, anticoagulated on Eliquis, Essential hypertension Hyperlipidemia Diabetes mellitus type 2, complicated by diabetic neuropathy Morbid obesity with BMI of 31 kg/m Chronic pain Umbilical Hernia Plan: We'll continue same treatment for the time being Patient is on 3 L O2 nasal cannula Clinically improving Continue diuretics for another 24 hours in the form of IV Lasix Obtain follow-up labs to monitor renal function Continue bronchodilators Prednisone burst taper Check a pro-calcitonin is mildly elevated at 0.2 Educated regarding the importance of complete smoking cessation NicoDerm patch in place Chest exam, admission shows some cardiomegaly and mild changes of CHF, no evidence of pneumonia Social work consult regarding frequent readmissions We will continue to follow and make further recommendations based on his clinical status. The patient will likely need placement and case management is working in getting this patient place.
[2023-09-10 16:58] LABS: Glucose,Whole Blood 350 mg/dL (70-110)
[2023-09-10 19:28] LABS: Glucose,Whole Blood 251 mg/dL (70-110)
[2023-09-10] MEDS: TAMSULOSIN 0.4 MG CAP.ER.24H PO SCH (20:49)
[2023-09-10] MEDS: PREGABALIN 75 MG CAP PO SCH (20:49)
[2023-09-10] MEDS: NICOTINE 21MG/24HR PATCH TRANSDERM SCH (20:50)
[2023-09-10] MEDS: ESCITALOPRAM 5 MG TAB PO SCH (20:50)
[2023-09-10] MEDS: ATORVASTATIN 40 MG TAB PO SCH (20:50)
[2023-09-10] MEDS: DULoxetine HCL 30 MG CAPSULE.DR PO SCH (20:50)
[2023-09-10] MEDS: MELATONIN 5 MG TABLET PO PRN (21:26)
[2023-09-10] MEDS: guaiFENesin 600 MG TABLET.ER PO SCH (21:53)
[2023-09-10 23:41] LABS: Glucose,Whole Blood 109 mg/dL (70-110)
--- NOTE | 2023-09-10 23:55 | P.PN ---
Subjective 72-year-old male well known to the emergency department who presents with weakness. He has a history of COPD, A. fib. Was recently hospitalized at our facility and discharged home yesterday. States he was discharged home with home health care. He was refusing transfer to a rehab facility. Patient subsequently went home and sat in his chair. He was defecating and urinating on himself. He was too weak to get up and ambulate. Presents again today stating that he does feel he needs to be in a nursing facility. He did not take any of his medications today. Denies any chest pain. Has chronic shortness of breath. No other alleviating, precipitating or modified factors Upon arrival to ED patient was found to be disheveled and covered in feces and urine EKG reveals atrial fibrillation with heart rate of [address] elevation or depression Blood work completed views a WBC of 17, hemoglobin of 12.5, platelet count of 309, sodium 133 AND 2.7, BUN/creatinine of 25/0.58, lactic acid of 2.2 and troponin at 0.0-4 Chest x-ray reported as cardiac silhouette mildly enlarged but pulmonary vessels within normal limits; questionable small bilateral pleural effusion on lateral films Patient is admitted for weakness and debility and adult failure to thrive; we will need consult with case management for discharge 24 hour interval change 09/05/2023 Patient is sitting up in bedside chair; reports improvement in breathing; patient reports uncontrolled pain and requesting Braggs to be changed to a stronger pain medication Vital signs are reviewed and are stable Temp 98.4, pulse 112, respirations 22, blood pressure 146/67, O2 saturation 95% on 4 L LABS: White count 13.2, hemoglobin 11.0, platelets 235, sodium 129, potassium 3.1, BUN 21, creatinine 0.54, calcium 7.1, troponin-0.024, less than 0.012 EKG: Atrial fibrillation with rapid ventricular response IMAGING: Chest x-ray dated 09/02/2023 demonstrates the cardiac silhouette is mildly enlarged and the pulmonary vessels are within normal limits, there is no focal area of consolidation, question small bilateral pleural effusions on the lateral evaluation best visualized. Chest x-ray dated 09/04/2023 demonstrates cardiomegaly, pulmonary vascular congestion and bilateral pleural effusions, with BNP for congestive heart failure. Cardiology recommending to increase metoprolol up to 200 mg twice a day with one-time extra dose of metoprolol 25 mg 1 -- Patient has been evaluated by pulmonary service; recommended to continue with current management 09/06/2023 Patient this morning is still tachypneic and short of breath with some expiratory wheezing, his kept on IV Lasix 40 mg every 8 hours and IV Solu-Medrol 60 mg. His creatinine 0.7 today. Postop labs look stable. Patient is asking specifically about more pain medication of opioids and Valium, risks and benefits are explained for him and he verbalized understanding and acceptance Maze on home dose of liquids, Zithromax, Solu-Medrol 60 mg on IV Lasix which going to switch him to twice daily 09/07/2023 Patient breathing is improved on close to baseline, no wheezing, mildly tachypn eic while at rest, patient is seen in bed most of the time Is hemodynamically stable Labs look stable with dilute BC at 12,000 while he is on steroids, hemoglobin and creatinine are stable and within the reference range. He remains on Zithromax, home dose of liquids 5 mg, IV Lasix 40 mg twice daily, IV Solu-Medrol Patient is getting medically stable for discharge. However patient is not helping himself regarding his discharge, for example Tylenol did not pick that ECF he needs to go for rehab. We tried to encourage the patient. As discussed with the bedside nurse and telehealth case manager Patient may be considered for discharge soon 09/08/2023 Patient breathing is improving slowly and gradually. Remains on IV salmeterol 60 mg and IV Lasix 40 mg twice daily Patient possible discharge to subacute rehab Sugar still uncontrolled at Levemir 10 units daily on the top of his 20 units at bedtime Possible discharge in 24-48 hours 09/09/2023 Patient breathing improving slowly and gradually, no chest pain no coughing. No other new complaints I have lengthy discussion with the patient about his problems and mechanism of his COPD and the treatment strategy and he verbalized understanding and accep tance. Patient cirrhosis wish to prednisone Plan to switch IV Lasix to oral dose Patient requires ECF for rehab upon discharge Possible discharge in 24-48 hours if he keeps improving 09/10/2023 Patient still somewhat dyspneic but close to baseline No new complaint Currently he is placed on prednisone as well as his home dose of Eliquis, Lasix and Zithromax Clonidine is added for better blood pressure control, heart rate control and also would help with the patient moved Pending prior authorization per my discussion with case management Objective - Vital Signs Vital signs: Vital Signs Temp 97.9 F 09/10/23 13:49 Pulse 96 09/10/23 13:49 Resp 17 09/10/23 13:49 BP 102/66 09/10/23 13:49 Pulse Ox 90 L 09/10/23 13:49 FiO2 Intake & Output 09/09/23 09/10/23 09/10/23 18:59 06:59 18:59 Output Total 1500 200 Balance -1500 -200 Output: Urine 1500 200 Other: Voiding Method Urinal Urinal # Voids 3 - Exam GENERAL: The patient is alert and oriented x3, not in any acute distress. Well developed, well nourished. HEENT: Pupils are round and equally reacting to light. EOMI. No scleral icterus. No conjunctival pallor. Normocephalic, atraumatic. No pharyngeal erythema. No thyromegaly. CARDIOVASCULAR: S1 and S2 present. No murmurs, rubs, or gallops. -PULMONARY: Chest is clear to auscultation, bilateral expiratory wheezing , no crackles. ABDOMEN: Soft, nontender, nondistended, normoactive bowel sounds. No palpable organomegaly. MUSCULOSKELETAL: No joint swelling or deformity. EXTREMITIES: No cyanosis, clubbing, or pedal edema. NEUROLOGICAL: Gross neurological examination did not reveal any focal deficits. SKIN: No rashes. no petechiae. - Labs CBC & Chem 7: 09/07/23 05:48 09/07/23 05:48 Labs: Abnormal Lab Results - Last 24 Hours (Table) 09/09/23 09/09/23 09/10/23 Range/Units 16:17 20:32 05:39 POC Glucose (mg/dL) 223 H 289 H 119 H (70-110) mg/dL 09/10/23 Range/Units 11:44 POC Glucose (mg/dL) 191 H (70-110) mg/dL Assessment and Plan Assessment: 1. Weakness/generalized debility versus metabolic encephalopathy ( improved ) related to acute renal injury -- We will consult PT/OT for further evaluation -- Case management for discharge planning, possible ECF for subacute rehab 2. Acute COPD exacerbation - Continue with oral prednisone - Pulmonary team consult 3. Mild [facility]; increase fluid intake; monitor renal function and electrolytes; avoid nephrotoxins and hypotension Improving 4. Chronic hypoxic respiratory failure; continue with home oxygen therapy 5. Acute on Chronic CHF with reduced EF of 40-45% - Echocardiogram reveals slight ventricular dilation - Continue with IV Lasix for another day and may switch him to oral dose in 24- 48 hours 6. Chronic atrial fibrillation; continue with systemic anticoagulation; patient remains rate controlled 7. Hypertension; metoprolol 50 g twice a day 8. Hyperlipidemia; Lipitor 40 mg 2 daily at bedtime 9. Diabetes mellitus type 2 with long-term insulin use DVT prophylaxis; SCDs CODE STATUS; full code
[2023-09-11] MEDS: diazePAM 5 MG TAB PO PRN (00:16)
[2023-09-11] MEDS: ACETAMINOPHEN TAB 325 MG TAB PO PRN (00:16)
[2023-09-11] MEDS: IPRATROPIUM-ALBUTEROL 3 ML NEB INHALATION PRN (05:59)
[2023-09-11 06:15] LABS: Glucose,Whole Blood 60 mg/dL (70-110)
[2023-09-11] MEDS: INSULIN ASPART (NovoLOG) 100 UNIT/ML VIAL SQ SCH ×4 (06:35→21:23)
[2023-09-11 06:37] LABS: Glucose,Whole Blood 75 mg/dL (70-110)
[2023-09-11] MEDS: DAPAGLIFLOZIN PROPANEDIOL 10 MG TABLET PO SCH (06:38)
[2023-09-11] MEDS: INSULIN DETEMIR (LEVEMIR) 100 UNIT/ML SYR SQ SCH ×2 (06:38→21:23)
[2023-09-11] MEDS: SPIRONOLACTONE 25 MG TAB PO SCH (06:38)
[2023-09-11] MEDS: THEOPHYLLINE 24 HOUR 400 MG CAP.ER.24H PO SCH (06:38)
[2023-09-11] MEDS: PANTOPRAZOLE 40 MG TABLET PO SCH ×2 (06:38→16:41)
[2023-09-11] MEDS: HYDROcodone/APAP 10-325MG 1 EACH TAB PO PRN ×3 (06:39→21:28)
[2023-09-11] MEDS: SYMBICORT 160-4.5 MCG INHALER INHALATION SCH ×2 (08:16→20:45)
[2023-09-11] MEDS: IPRATROPIUM-ALBUTEROL 3 ML NEB INHALATION SCH ×4 (08:16→20:45)
[2023-09-11] MEDS: metFORMIN 500 MG TAB PO SCH ×2 (08:56→21:23)
[2023-09-11] MEDS: cloNIDine HCL 0.1 MG TAB PO SCH ×2 (08:56→21:23)
[2023-09-11] MEDS: POTASSIUM CHLORIDE ER 20 MEQ TAB.ER PO SCH (08:56)
[2023-09-11] MEDS: APIXABAN 5 MG TAB PO SCH ×2 (08:57→21:23)
[2023-09-11] MEDS: predniSONE 20 MG TAB PO SCH (08:57)
[2023-09-11] MEDS: METOPROLOL TARTRATE 50 MG TAB PO SCH ×2 (08:57→21:24)
[2023-09-11] MEDS: FUROSEMIDE 10 MG/ML 4 ML VIAL IV SCH ×2 (08:57→23:44)
[2023-09-11] MEDS: NYSTATIN 100,000 UNIT/GM POWD 15 GM TOPICAL SCH ×3 (08:58→21:24)
[2023-09-11 11:40] LABS: Glucose,Whole Blood 157 mg/dL (70-110)
--- NOTE | 2023-09-11 13:20 | P.PN ---
Subjective Progress Note Date: 09/11/23 This is a 72-year-old male patient with a past medical history significant for severe oxygen dependent COPD, normally maintained on 3 L/m nasal cannula, congestive heart failure, chronic atrial fibrillation, diabetes mellitus, hyperlipidemia, hypertension, obesity, GERD and is a ongoing chronic smoker. He was staying at [facility] rehab facility. He has had multiple multiple readmissions to the hospital. He was just discharged from here on 09/01/2023 to home. He had refused to go to subacute rehabilitation. 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 The next day EMS was called to his house and he was still in a chair sitting in feces and urine unable to get up and get himself to the bathroom. He was admitted again on 09/02/2023. He is seen today in consultation. He sitting up in a chair. Awake and alert in no acute distress. He is maintaining O2 saturations in the mid to upper 90s on 3 L/m per nasal cannula. He is afebrile. Hemodynamically stable. The x-ray continues to show cardiomegaly with pulmonary vascular congestion and small bilateral effusions. EKG reveals atrial fibrillation with a controlled ventricular response. White count 15.8. Hemoglobin 11.7. Platelets 231. Sodium 136. Potassium 3.9. Bicarb 33. BUN 20. Creatinine 0.8. Glucose 156. BNP 429. Troponins negative. On today's evaluation of 09/06/2023, the patient has no specific complaints. Is complaining of some ongoing shortness of breath which is attributed to his chronic COPD. The patient was hospitalized as the patient is unable to take care of himself. The patient wants to go to rehabilitation and is interested in going to [facility] on the burns. He is on bronchodilators. He is on steroids. Is on antibiotics. Outpatient medications have been all resumed. In terms of labs , the white cell count at 17 with a hemoglobin 10.4 and a platelet count of 213, sodium is at 136, potassium is at 3.2, BUN is at 20 with a creatinine of 0.7 and a blood sugars at 257. The patient is on insulin and a formal Levemir 20 units daily at bedtime and NovoLog sliding scale coverage. He is also on a nicotine patch. He is chronically debilitated with chronic hypoxic respiratory failure and advanced COPD. On today's evaluation of 09/07/2023, the patient's condition is stable. The pat lex's respiratory status is adequate and is gradually improving. Less short of breath compared to yesterday. Remains on broke a dilated. Remains on steroids. We'll ask case management to work on discharge planning on this patient as the patient may benefit from intermediate placement. He is still interested in ECF. No new complaints otherwise for now. The echoes at 12.8, he was to 0.5, BUN is at 20 with a creatinine of 0.7 and a sodium level is at 140. On 08/31/2023, no new complaints and the patient is being treated for COPD exacerbation is also being diuresed. Remains on bronchodilators. Remains on steroids. Remains on diuretics. At the same time, were looking into placement for intermediate for this patient. Case management is on the case. No new labs are available from today. Blood sugars are slightly elevated related to the use of systemic steroids. He is currently on 3 L of O2 nasal cannula. On today's evaluation of 09/09/2023, no new complaints and the patient is still being treated for COPD exacerbation and the same time he is being considered for placement. The patient on IV Solu-Medrol. The patient is on room air oxygen with a pulse ox of 96%. Hemodynamically, the patient is stable. No new labs are available from today. On 09/10/2023, no new complaints and the patient is still being treated for an acute choked exacerbation. Is currently on a prednisone burst taper starting with 40 mg. He remains on Symbicort. He is on [facility] a [id number]. Working on placement. No new labs are available from today. He is on 3 L with a pulse ox of 96% On 09/11/2023, the patient is sitting up on a recliner. Continues to receive the same bronchodilators. Continues to be on a prednisone 40 mg by mouth daily. No new complaints. Hemodynamically stable on 40s of Oxymizer nasal cannula with a pulse ox of 99%. No chest pain. Medications remain essentially unchanged. Remains on anticoagulation with Eliquis 5 mg by mouth twice a day. Remains on Levemir insulin 20 units and a sliding scale coverage. Meanwhile, the patient continues to diabetes. Overall fluid balance is -1.5 L over the past 24 hours. He is producing excellent urine output. Electrolytes need to be checked as long as the patient remains on aggressive diuresis regimen. He remains on Lasix 40 mg IV every 12 hours. Objective - Vital Signs Vital signs: Vital Signs Temp 98.1 F 09/11/23 13:03 Pulse 117 H 09/11/23 13:03 Resp 18 09/11/23 13:03 BP 112/78 09/11/23 13:03 Pulse Ox 100 09/11/23 13:03 FiO2 Intake & Output 09/10/23 09/11/23 09/11/23 18:59 06:59 18:59 Output Total 850 Balance -850 Output: Urine 850 Other: Voiding Method Urinal # Voids 5 - Exam GENERAL EXAM: Alert, obese 72-year-old male sitting up in a chair, on 3 L nasal cannula, comfortable in no apparent distress. HEAD: Normocephalic. EYES: Normal reaction of pupils, equal size. NOSE: Clear with pink turbinates. THROAT: No erythema or exudates. NECK: No masses, no JVD. CHEST: No chest wall deformity. LUNGS: Equal air entry with bibasilar crackles, diminished. CVS: S1 and S2 normal with no audible murmur, regular rhythm. ABDOMEN: No hepatosplenomegaly, normal bowel sounds, no guarding or rigidity. SPINE: No scoliosis or deformity SKIN: No rashes CENTRAL NERVOUS SYSTEM: No focal deficits, tone is normal in all 4 extremities. EXTREMITIES: There is 1+ peripheral edema. Changes of chronic venous stasis. No clubbing, no cyanosis. Peripheral pulses are intact. - Labs CBC & Chem 7: 09/07/23 05:48 09/07/23 05:48 Labs: Abnormal Lab Results - Last 24 Hours (Table) 09/10/23 09/10/23 09/11/23 Range/Units 16:57 19:24 06:11 POC Glucose (mg/dL) 350 H 251 H 60 L (70-110) mg/dL 09/11/23 Range/Units 11:37 POC Glucose (mg/dL) 157 H (70-110) mg/dL Assessment and Plan Plan: Generalized weakness, secondary to ongoing debility and refusal to go to subacute rehabilitation, did not obtain his medications post discharge he was home for 24 hours. Found sitting in a chair in feces and urine. Obviously, the patient is unable to take care of himself and the patient will need placement. For the time being, he is interested in rehabilitation. He may need permanent placement. Chronic hypoxemic respiratory failure secondary to an acute exacerbation of chronic obstructive pulmonary disease, oxygen patient is improved, currently on 3 L Chronic and ongoing tobacco dependence Exacerbation of diastolic CHF with ejection fraction of 40-45% moderate concentric LVH and moderate degree of pulmonary hypertension.repeat echo cardiac exam continues to show RV dilatation and moderate degree of pulmonary hypertension. Ejection fraction is improved and is currently up to 50-55%. Chronic atrial fibrillation, with controlled ventricular rate, anticoagulated on Eliquis, Essential hypertension Hyperlipidemia Diabetes mellitus type 2, complicated by diabetic neuropathy Morbid obesity with BMI of 31 kg/m Chronic pain Umbilical Hernia Plan: No major change in his overall condition since yesterday We'll continue same treatment for the time being Patient is on 4 L O2 nasal cannula Clinically improving , will continue Symbicort, DuoNeb updrafts, theophylline and a prednisone burst taper Continue diuretics for another 24 hours in the form of IV Lasix Obtain follow-up labs to monitor renal function, labs are not available and this was ordered on an urgent basis Continue bronchodilators Prednisone burst taper Check a pro-calcitonin is mildly elevated at 0.2 Educated regarding the importance of complete smoking cessation NicoDerm patch in place Chest exam, admission shows some cardiomegaly and mild changes of CHF, no evidence of pneumonia Social work consult regarding frequent readmissions We will continue to follow and make further recommendations based on his clinical status. The patient will likely need placement and case management is working in getting this patient place.
[2023-09-11 14:50] LABS: Glucose,Whole Blood 252 mg/dL (70-110)
[2023-09-11 15:12] LABS: ALT 20 U/L (4-49); AST 16 U/L (17-59); African American GFR (CKD) >90 (>60 ml/min/1.73 sqM); Albumin 2.9 g/dL (3.5-5.0); Albumin/Globulin Ratio 1.3; Alkaline Phosphatase 58 U/L (38-126); Anion Gap 7 mmol/L; Blood Urea Nitrogen 31 mg/dL (9-20); Calcium 7.6 mg/dL (8.4-10.2); Carbon Dioxide 38 mmol/L (22-30); Chloride 88 mmol/L (98-107); Globulin 2.2 g/dL; Glucose 132 mg/dL (74-99); Non-African American GFR(CKD) >90 (>60 ml/min/1.73 sqM); Potassium 4.3 mmol/L (3.5-5.1); Sodium 133 mmol/L (137-145); Total Bilirubin 0.8 mg/dL (0.2-1.3); Total Protein 5.1 g/dL (6.3-8.2)
[2023-09-11 16:08] LABS: Glucose,Whole Blood 177 mg/dL (70-110)
[2023-09-11 19:46] LABS: Glucose,Whole Blood 273 mg/dL (70-110)
--- NOTE | 2023-09-11 20:53 | P.PN ---
Subjective 72-year-old male well known to the emergency department who presents with weakness. He has a history of COPD, A. fib. Was recently hospitalized at our facility and discharged home yesterday. States he was discharged home with home health care. He was refusing transfer to a rehab facility. Patient subsequently went home and sat in his chair. He was defecating and urinating on himself. He was too weak to get up and ambulate. Presents again today stating that he does feel he needs to be in a nursing facility. He did not take any of his medications today. Denies any chest pain. Has chronic shortness of breath. No other alleviating, precipitating or modified factors Upon arrival to ED patient was found to be disheveled and covered in feces and urine EKG reveals atrial fibrillation with heart rate of [address] elevation or depression Blood work completed views a WBC of 17, hemoglobin of 12.5, platelet count of 309, sodium 133 AND 2.7, BUN/creatinine of 25/0.58, lactic acid of 2.2 and troponin at 0.0-4 Chest x-ray reported as cardiac silhouette mildly enlarged but pulmonary vessels within normal limits; questionable small bilateral pleural effusion on lateral films Patient is admitted for weakness and debility and adult failure to thrive; we will need consult with case management for discharge 24 hour interval change 09/05/2023 Patient is sitting up in bedside chair; reports improvement in breathing; patient reports uncontrolled pain and requesting [place] to be changed to a stronger pain medication Vital signs are reviewed and are stable Temp 98.4, pulse 112, respirations 22, blood pressure 146/67, O2 saturation 95% on 4 L LABS: White count 13.2, hemoglobin 11.0, platelets 235, sodium 129, potassium 3.1, BUN 21, creatinine 0.54, calcium 7.1, troponin-0.024, less than 0.012 EKG: Atrial fibrillation with rapid ventricular response IMAGING: Chest x-ray dated 09/02/2023 demonstrates the cardiac silhouette is mildly enlarged and the pulmonary vessels are within normal limits, there is no focal area of consolidation, question small bilateral pleural effusions on the lateral evaluation best visualized. Chest x-ray dated 09/04/2023 demonstrates cardiomegaly, pulmonary vascular congestion and bilateral pleural effusions, with BNP for congestive heart failure. Cardiology recommending to increase metoprolol up to 200 mg twice a day with one-time extra dose of metoprolol 25 mg 1 -- Patient has been evaluated by pulmonary service; recommended to continue with current management 09/06/2023 Patient this morning is still tachypneic and short of breath with some expiratory wheezing, his kept on IV Lasix 40 mg every 8 hours and IV Solu-Medrol 60 mg. His creatinine 0.7 today. Postop labs look stable. Patient is asking specifically about more pain medication of opioids and Valium, risks and benefits are explained for him and he verbalized understanding and acceptance Maze on home dose of liquids, Zithromax, Solu-Medrol 60 mg on IV Lasix which going to switch him to twice daily 09/07/2023 Patient breathing is improved on close to baseline, no wheezing, mildly tachypn eic while at rest, patient is seen in bed most of the time Is hemodynamically stable Labs look stable with dilute BC at 12,000 while he is on steroids, hemoglobin and creatinine are stable and within the reference range. He remains on Zithromax, home dose of liquids 5 mg, IV Lasix 40 mg twice daily, IV Solu-Medrol Patient is getting medically stable for discharge. However patient is not helping himself regarding his discharge, for example Tylenol did not pick that ECF he needs to go for rehab. We tried to encourage the patient. As discussed with the bedside nurse and telehealth case manager Patient may be considered for discharge soon 09/08/2023 Patient breathing is improving slowly and gradually. Remains on IV salmeterol 60 mg and IV Lasix 40 mg twice daily Patient possible discharge to subacute rehab Sugar still uncontrolled at Levemir 10 units daily on the top of his 20 units at bedtime Possible discharge in 24-48 hours 09/09/2023 Patient breathing improving slowly and gradually, no chest pain no coughing. No other new complaints I have lengthy discussion with the patient about his problems and mechanism of his COPD and the treatment strategy and he verbalized understanding and accep tance. Patient cirrhosis wish to prednisone Plan to switch IV Lasix to oral dose Patient requires ECF for rehab upon discharge Possible discharge in 24-48 hours if he keeps improving 09/10/2023 Patient still somewhat dyspneic but close to baseline No new complaint Currently he is placed on prednisone as well as his home dose of Eliquis, Lasix and Zithromax Clonidine is added for better blood pressure control, heart rate control and also would help with the patient moved Pending prior authorization per my discussion with case management 09/11/2023 Patient breathing is improving, however he still have some wheezing which is expected to persist given his severe degree of COPD His current it continued on a prednisone 40 mg with improvement creatinine is stable therefore continue with IV Lasix 40 mg for now Check creatinine tomorrow Blood pressure is better controlled after adding clonidine His continue on Zithromax Pending placement to subacute rehab Objective - Vital Signs Vital signs: Vital Signs Temp 98.1 F 09/11/23 13:03 Pulse 84 09/11/23 15:17 Resp 18 09/11/23 13:03 BP 112/78 09/11/23 13:03 Pulse Ox 100 09/11/23 13:03 FiO2 Intake & Output 09/10/23 09/11/23 09/11/23 18:59 06:59 18:59 Output Total 850 950 Balance -850 -950 Output: Urine 850 950 Other: Voiding Method Urinal # Voids 5 - Exam GENERAL: The patient is alert and oriented x3, not in any acute distress. Well developed, well nourished. HEENT: Pupils are round and equally reacting to light. EOMI. No scleral icterus. No conjunctival pallor. Normocephalic, atraumatic. No pharyngeal erythema. No thyromegaly. CARDIOVASCULAR: S1 and S2 present. No murmurs, rubs, or gallops. -PULMONARY: Chest is clear to auscultation, bilateral expiratory wheezing , no crackles. ABDOMEN: Soft, nontender, nondistended, normoactive bowel sounds. No palpable organomegaly. MUSCULOSKELETAL: No joint swelling or deformity. EXTREMITIES: No cyanosis, clubbing, or pedal edema. NEUROLOGICAL: Gross neurological examination did not reveal any focal deficits. SKIN: No rashes. no petechiae. - Labs CBC & Chem 7: 09/07/23 05:48 09/11/23 14:15 Labs: Abnormal Lab Results - Last 24 Hours (Table) 09/10/23 09/11/23 09/11/23 Range/Units 19:24 06:11 11:37 Sodium (137-145) mmol/L Chloride (98-107) mmol/L Carbon Dioxide (22-30) mmol/L BUN (9-20) mg/dL Creatinine (0.66-1.25) mg/dL Glucose (74-99) mg/dL POC Glucose (mg/dL) 251 H 60 L 157 H (70-110) mg/dL Calcium (8.4-10.2) mg/dL AST (17-59) U/L Total Protein (6.3-8.2) g/dL Albumin (3.5-5.0) g/dL 09/11/23 09/11/23 09/11/23 Range/Units 14:15 14:49 16:05 Sodium 133 L (137-145) mmol/L Chloride 88 L (98-107) mmol/L Carbon Dioxide 38 H (22-30) mmol/L BUN 31 H (9-20) mg/dL Creatinine 0.65 L (0.66-1.25) mg/dL Glucose 132 H (74-99) mg/dL POC Glucose (mg/dL) 252 H 177 H (70-110) mg/dL Calcium 7.6 L (8.4-10.2) mg/dL AST 16 L (17-59) U/L Total Protein 5.1 L (6.3-8.2) g/dL Albumin 2.9 L (3.5-5.0) g/dL Assessment and Plan Assessment: 1. Weakness/generalized debility versus metabolic encephalopathy ( improved ) related to acute renal injury -- We will consult PT/OT for further evaluation -- Case management for discharge planning, possible ECF for subacute rehab 2. Acute COPD exacerbation - Continue with oral prednisone - Pulmonary team consult 3. Mild [facility]; increase fluid intake; monitor renal function and electrolytes; avoid nephrotoxins and hypotension Improving 4. Chronic hypoxic respiratory failure; continue with home oxygen therapy 5. Acute on Chronic CHF with reduced EF of 40-45% - Echocardiogram reveals slight ventricular dilation - Continue with IV Lasix for another day and may switch him to oral dose in 24- 48 hours 6. Chronic atrial fibrillation; continue with systemic anticoagulation; patient remains rate controlled 7. Hypertension; metoprolol 50 g twice a day 8. Hyperlipidemia; Lipitor 40 mg 2 daily at bedtime 9. Diabetes mellitus type 2 with long-term insulin use DVT prophylaxis; SCDs CODE STATUS; full code
[2023-09-11] MEDS: PREGABALIN 75 MG CAP PO SCH (21:23)
[2023-09-11] MEDS: ATORVASTATIN 40 MG TAB PO SCH (21:23)
[2023-09-11] MEDS: TAMSULOSIN 0.4 MG CAP.ER.24H PO SCH (21:23)
[2023-09-11] MEDS: guaiFENesin 600 MG TABLET.ER PO SCH (21:23)
[2023-09-11] MEDS: DULoxetine HCL 30 MG CAPSULE.DR PO SCH (21:24)
[2023-09-11] MEDS: ESCITALOPRAM 5 MG TAB PO SCH (21:24)
[2023-09-11] MEDS: NICOTINE 21MG/24HR PATCH TRANSDERM SCH (21:24)
[2023-09-12] MEDS: diazePAM 5 MG TAB PO PRN (00:13)
[2023-09-12] MEDS: MELATONIN 5 MG TABLET PO PRN (00:13)
[2023-09-12] MEDS: IPRATROPIUM-ALBUTEROL 3 ML NEB INHALATION PRN (00:32)
[2023-09-12] MEDS: THEOPHYLLINE 24 HOUR 400 MG CAP.ER.24H PO SCH (05:57)
[2023-09-12] MEDS: SPIRONOLACTONE 25 MG TAB PO SCH (05:57)
[2023-09-12] MEDS: INSULIN DETEMIR (LEVEMIR) 100 UNIT/ML SYR SQ SCH ×2 (06:04→21:31)
[2023-09-12 06:26] LABS: Glucose,Whole Blood 165 mg/dL (70-110)
[2023-09-12] MEDS: HYDROcodone/APAP 10-325MG 1 EACH TAB PO PRN ×4 (06:42→21:59)
[2023-09-12] MEDS: PANTOPRAZOLE 40 MG TABLET PO SCH ×2 (06:42→17:12)
[2023-09-12] MEDS: DAPAGLIFLOZIN PROPANEDIOL 10 MG TABLET PO SCH (06:42)
[2023-09-12] MEDS: SYMBICORT 160-4.5 MCG INHALER INHALATION SCH (08:37)
[2023-09-12] MEDS: IPRATROPIUM-ALBUTEROL 3 ML NEB INHALATION SCH ×4 (08:37→20:33)
[2023-09-12] MEDS: APIXABAN 5 MG TAB PO SCH ×2 (08:48→21:30)
[2023-09-12] MEDS: metFORMIN 500 MG TAB PO SCH ×2 (08:48→21:31)
[2023-09-12] MEDS: cloNIDine HCL 0.1 MG TAB PO SCH (08:48)
[2023-09-12] MEDS: METOPROLOL TARTRATE 50 MG TAB PO SCH ×2 (08:49→21:31)
[2023-09-12] MEDS: predniSONE 20 MG TAB PO SCH (08:49)
[2023-09-12] MEDS: NYSTATIN 100,000 UNIT/GM POWD 15 GM TOPICAL SCH ×3 (08:49→21:31)
[2023-09-12] MEDS: POTASSIUM CHLORIDE ER 20 MEQ TAB.ER PO SCH (08:49)
[2023-09-12] MEDS: FUROSEMIDE 10 MG/ML 4 ML VIAL IV SCH ×2 (09:12→21:59)
[2023-09-12 10:39] LABS: Basophils # (A) 0.02 X 10*3/uL (0.00-0.10); Basophils % (A) 0.2 %; Eosinophils # (A) 0 X 10*3/uL (0.04-0.35); Eosinophils % (A) 0 %; HCT 34.4 % (39.6-50.0); HGB 10.8 g/dL (13.0-17.0); Lymphocytes # (A) 0.93 X 10*3/uL (0.90-5.00); Lymphocytes % (A) 9.4 %; MCH 28.1 pg (27.0-32.0); MCHC 31.4 g/dL (32.0-37.0); MCV 89.6 FL (80.0-97.0); Mean Platelet Volume 10.5 FL (9.5-12.2); Monocytes # (A) 0.47 X 10*3/uL (0.20-1.00); Monocytes % (A) 4.8 %; NRBC Per 100 WBC 0 X 10*3/uL (0.00-0.01); Neutrophils # (A) 8.17 X 10*3/uL (1.80-7.70); Neutrophils % (A) 82.6 %; Platelet Count 218 X 10*3/uL (140-440); RBC 3.84 X 10*6/uL (4.40-5.60); RDW 16.7 % (11.5-14.5); WBC 9.89 X 10*3/uL (4.50-10.00)
[2023-09-12 10:54] LABS: Calcium 8.1 mg/dL (8.7-10.3); Carbon Dioxide 35.6 mmol/L (21.6-31.8); Chloride 94 mmol/L (96-109); Glucose 61 mg/dL (70-110); Potassium 3.6 mmol/L (3.5-5.5); Sodium 139 mmol/L (135-145)
[2023-09-12 11:44] LABS: Glucose,Whole Blood 363 mg/dL (70-110)
--- NOTE | 2023-09-12 14:00 | P.PN ---
Subjective Progress Note Date: 09/12/23 This is a 72-year-old male patient with a past medical history significant for severe oxygen dependent COPD, normally maintained on 3 L/m nasal cannula, congestive heart failure, chronic atrial fibrillation, diabetes mellitus, hyperlipidemia, hypertension, obesity, GERD and is a ongoing chronic smoker. He was staying at [facility] rehab facility. He has had multiple multiple readmissions to the hospital. He was just discharged from here on 09/01/2023 to home. He had refused to go to subacute rehabilitation. He did not pickle maker his medication from the pharmacy. The next day EMS was called to his house and he was still in a chair sitting in feces and urine unable to get up and get himself to the bathroom. He was admitted again on 09/02/2023. He is seen today in consultation. He sitting up in a chair. Awake and alert in no acute distress. He is maintaining O2 saturations in the mid to upper 90s on 3 L/m per nasal cannula. He is afebrile. Hemodynamically stable. The x-ray continues to show cardiomegaly with pulmonary vascular congestion and small bilateral effusions. EKG reveals atrial fibrillation with a controlled ventricular response. White count 15.8. Hemoglobin 11.7. Platelets 231. Sodium 136. Potassium 3.9. Bicarb 33. BUN 20. Creatinine 0.8. Glucose 156. BNP 429. Troponins negative. On today's evaluation of 09/06/2023, the patient has no specific complaints. Is complaining of some ongoing shortness of breath which is attributed to his chronic COPD. The patient was hospitalized as the patient is unable to take care of himself. The patient wants to go to rehabilitation and is interested in going to [facility] on the burns. He is on bronchodilators. He is on steroids. Is on antibiotics. Outpatient medications have been all resumed. In terms of labs , the white cell count at 17 with a hemoglobin 10.4 and a platelet count of 213, sodium is at 136, potassium is at 3.2, BUN is at 20 with a creatinine of 0.7 and a blood sugars at 257. The patient is on insulin and a formal Levemir 20 units daily at bedtime and NovoLog sliding scale coverage. He is also on a nicotine patch. He is chronically debilitated with chronic hypoxic respiratory failure and advanced COPD. On today's evaluation of 09/07/2023, the patient's condition is stable. The pat lex's respiratory status is adequate and is gradually improving. Less short of breath compared to yesterday. Remains on broke a dilated. Remains on steroids. We'll ask case management to work on discharge planning on this patient as the patient may benefit from skilled nursing placement. He is still interested in ECF. No new complaints otherwise for now. The echoes at 12.8, he was to 0.5, BUN is at 20 with a creatinine of 0.7 and a sodium level is at 140. On 08/31/2023, no new complaints and the patient is being treated for COPD exacerbation is also being diuresed. Remains on bronchodilators. Remains on steroids. Remains on diuretics. At the same time, were looking into placement for skilled nursing for this patient. Case management is on the case. No new labs are available from today. Blood sugars are slightly elevated related to the use of systemic steroids. He is currently on 3 L of O2 nasal cannula. On today's evaluation of 09/09/2023, no new complaints and the patient is still being treated for COPD exacerbation and the same time he is being considered for placement. The patient on IV Solu-Medrol. The patient is on room air oxygen with a pulse ox of 96%. Hemodynamically, the patient is stable. No new labs are available from today. On 09/10/2023, no new complaints and the patient is still being treated for an acute choked exacerbation. Is currently on a prednisone burst taper starting with 40 mg. He remains on Symbicort. He is on [facility] a [id number]. Working on placement. No new labs are available from today. He is on 3 L with a pulse ox of 96% On 09/11/2023, the patient is sitting up on a recliner. Continues to receive the same bronchodilators. Continues to be on a prednisone 40 mg by mouth daily. No new complaints. Hemodynamically stable on 40s of Oxymizer nasal cannula with a pulse ox of 99%. No chest pain. Medications remain essentially unchanged. Remains on anticoagulation with Eliquis 5 mg by mouth twice a day. Remains on Levemir insulin 20 units and a sliding scale coverage. Meanwhile, the patient continues to diabetes. Overall fluid balance is -1.5 L over the past 24 hours. He is producing excellent urine output. Electrolytes need to be checked as long as the patient remains on aggressive diuresis regimen. He remains on Lasix 40 mg IV every 12 hours. On 09/12/2023, the patient started complaining of shortness of breath. Earlier this morning, he had some increased bronchospasm and wheeze. Was placed in bed. He is feeling better already. He is on prednisone burst taper. He is on Symbi pardeep is on DuoNeb updrafts. He is on theophylline. He has advanced lung disease with chronic shortness of breath and dyspnea. He continues to receive diuretics and the patient is currently on Lasix 40 mg IV every 12 hours. He remains on long-term and coagulation with Eliquis. The blood work from today shows a BUN of 21 with a creatinine of 0.5 and a sodium levels of 139. Potassium is at 3.6. White cell cause of 9.8 with a hemoglobin of 10.8. Fluid balance has been -8 50 mL over the past 24 hours and the patient is headed towards another liters negative fluid balance over the next 24 hours. His been diuresing adequately during this current hospital stay. Objective - Vital Signs Vital signs: Vital Signs Temp 96.7 F L 09/12/23 07:12 Pulse 88 09/12/23 08:51 Resp 16 09/12/23 07:12 BP 120/76 09/12/23 07:12 Pulse Ox 97 09/12/23 07:12 FiO2 Intake & Output 09/11/23 09/12/23 09/12/23 18:59 06:59 18:59 Output Total 950 1116 Balance -950 -1116 Output: Urine 950 1116 Other: Voiding Method Urinal - Exam GENERAL EXAM: Alert, obese 72-year-old male sitting up in a chair, on 3 L nasal cannula, comfortable in no apparent distress. HEAD: Normocephalic. EYES: Normal reaction of pupils, equal size. NOSE: Clear with pink turbinates. THROAT: No erythema or exudates. NECK: No masses, no JVD. CHEST: No chest wall deformity. LUNGS: Equal air entry with bibasilar crackles, diminished. CVS: S1 and S2 normal with no audible murmur, regular rhythm. ABDOMEN: No hepatosplenomegaly, normal bowel sounds, no guarding or rigidity. SPINE: No scoliosis or deformity SKIN: No rashes CENTRAL NERVOUS SYSTEM: No focal deficits, tone is normal in all 4 extremities. EXTREMITIES: There is 1+ peripheral edema. Changes of chronic venous stasis. No clubbing, no cyanosis. Peripheral pulses are intact. - Labs CBC & Chem 7: 09/12/23 06:15 09/12/23 06:15 Labs: Abnormal Lab Results - Last 24 Hours (Table) 09/11/23 09/11/23 09/11/23 Range/Units 11:37 14:15 14:49 RBC (4.40-5.60) X 10*6/uL Hgb (13.0-17.0) g/dL Hct (39.6-50.0) % MCHC (32.0-37.0) g/dL RDW (11.5-14.5) % Immature Gran # (0.00-0.04) X 10*3/uL Neutrophils # (1.80-7.70) X 10*3/uL Eosinophils # (0.04-0.35) X 10*3/uL Sodium 133 L (137-145) mmol/L Chloride 88 L (98-107) mmol/L Carbon Dioxide 38 H (22-30) mmol/L BUN 31 H (9-20) mg/dL Creatinine 0.65 L (0.66-1.25) mg/dL BUN/Creatinine Ratio (12.00-20.00) Ratio Glucose 132 H (74-99) mg/dL POC Glucose (mg/dL) 157 H 252 H (70-110) mg/dL Calcium 7.6 L (8.4-10.2) mg/dL AST 16 L (17-59) U/L Total Protein 5.1 L (6.3-8.2) g/dL Albumin 2.9 L (3.5-5.0) g/dL 09/11/23 09/11/23 09/12/23 Range/Units 16:05 19:43 06:15 RBC 3.84 L (4.40-5.60) X 10*6/uL Hgb 10.8 L (13.0-17.0) g/dL Hct 34.4 L (39.6-50.0) % MCHC 31.4 L (32.0-37.0) g/dL RDW 16.7 H (11.5-14.5) % Immature Gran # 0.30 H (0.00-0.04) X 10*3/uL Neutrophils # 8.17 H (1.80-7.70) X 10*3/uL Eosinophils # 0 L (0.04-0.35) X 10*3/uL Sodium (137-145) mmol/L Chloride (98-107) mmol/L Carbon Dioxide (22-30) mmol/L BUN (9-20) mg/dL Creatinine (0.66-1.25) mg/dL BUN/Creatinine Ratio (12.00-20.00) Ratio Glucose (74-99) mg/dL POC Glucose (mg/dL) 177 H 273 H (70-110) mg/dL Calcium (8.4-10.2) mg/dL AST (17-59) U/L Total Protein (6.3-8.2) g/dL Albumin (3.5-5.0) g/dL 09/12/23 09/12/23 Range/Units 06:15 06:23 RBC (4.40-5.60) X 10*6/uL Hgb (13.0-17.0) g/dL Hct (39.6-50.0) % MCHC (32.0-37.0) g/dL RDW (11.5-14.5) % Immature Gran # (0.00-0.04) X 10*3/uL Neutrophils # (1.80-7.70) X 10*3/uL Eosinophils # (0.04-0.35) X 10*3/uL Sodium (137-145) mmol/L Chloride 94 L (98-107) mmol/L Carbon Dioxide 35.6 H (22-30) mmol/L BUN (9-20) mg/dL Creatinine 0.5 L (0.66-1.25) mg/dL BUN/Creatinine Ratio 42.00 H (12.00-20.00) Ratio Glucose 61 L (74-99) mg/dL POC Glucose (mg/dL) 165 H (70-110) mg/dL Calcium 8.1 L (8.4-10.2) mg/dL AST (17-59) U/L Total Protein (6.3-8.2) g/dL Albumin (3.5-5.0) g/dL Assessment and Plan Plan: Generalized weakness, secondary to ongoing debility and refusal to go to subacute rehabilitation, did not obtain his medications post discharge he was home for 24 hours. Found sitting in a chair in feces and urine. Obviously, the patient is unable to take care of himself and the patient will need placement. For the time being, he is interested in rehabilitation. He may need permanent placement. Chronic hypoxemic respiratory failure secondary to an acute exacerbation of chronic obstructive pulmonary disease, oxygen patient is improved, currently on 3 L Chronic and ongoing tobacco dependence Exacerbation of diastolic CHF with ejection fraction of 40-45% moderate concentric LVH and moderate degree of pulmonary hypertension.repeat echo cardiac exam continues to show RV dilatation and moderate degree of pulmonary hypertension. Ejection fraction is improved and is currently up to 50-55%. Chronic atrial fibrillation, with controlled ventricular rate, anticoagulated on Eliquis, Essential hypertension Hyperlipidemia Diabetes mellitus type 2, complicated by diabetic neuropathy Morbid obesity with BMI of 31 kg/m Chronic pain Umbilical Hernia Plan: No major change in his overall condition since yesterday, the patient's condition is chronic and he has advanced COPD. We'll continue same treatment for the time being Patient is on 4 L O2 nasal cannula Clinically improving , will continue Symbicort, DuoNeb updrafts, theophylline and a prednisone burst taper Continue diuretics for another 24 hours in the form of IV Lasix, the patient has established a significant negative fluid balance with improvement in lower extremity edema Labs are stable Continue bronchodilators Prednisone burst taper Check a pro-calcitonin is mildly elevated at 0.2 Educated regarding the importance of complete smoking cessation NicoDerm patch in place Chest exam, admission shows some cardiomegaly and mild changes of CHF, no eviden ce of pneumonia Social work consult regarding frequent readmissions We will continue to follow and make further recommendations based on his clinical status. The patient will likely need placement and case management is working in getting this patient place.
[2023-09-12 16:47] LABS: Glucose,Whole Blood 208 mg/dL (70-110)
[2023-09-12] MEDS: ACETAMINOPHEN TAB 325 MG TAB PO PRN (18:45)
--- NOTE | 2023-09-12 19:54 | P.PN ---
Subjective 72-year-old male well known to the emergency department who presents with weakness. He has a history of COPD, A. fib. Was recently hospitalized at our facility and discharged home yesterday. States he was discharged home with home health care. He was refusing transfer to a rehab facility. Patient subsequently went home and sat in his chair. He was defecating and urinating on himself. He was too weak to get up and ambulate. Presents again today stating that he does feel he needs to be in a nursing facility. He did not take any of his medications today. Denies any chest pain. Has chronic shortness of breath. No other alleviating, precipitating or modified factors Upon arrival to ED patient was found to be disheveled and covered in feces and urine EKG reveals atrial fibrillation with heart rate of [address] elevation or depression Blood work completed views a WBC of 17, hemoglobin of 12.5, platelet count of 309, sodium 133 AND 2.7, BUN/creatinine of 25/0.58, lactic acid of 2.2 and troponin at 0.0-4 Chest x-ray reported as cardiac silhouette mildly enlarged but pulmonary vessels within normal limits; questionable small bilateral pleural effusion on lateral films Patient is admitted for weakness and debility and adult failure to thrive; we will need consult with case management for discharge 24 hour interval change 09/05/2023 Patient is sitting up in bedside chair; reports improvement in breathing; patient reports uncontrolled pain and requesting Lena to be changed to a stronger pain medication Vital signs are reviewed and are stable Temp 98.4, pulse 112, respirations 22, blood pressure 146/67, O2 saturation 95% on 4 L LABS: White count 13.2, hemoglobin 11.0, platelets 235, sodium 129, potassium 3.1, BUN 21, creatinine 0.54, calcium 7.1, troponin-0.024, less than 0.012 EKG: Atrial fibrillation with rapid ventricular response IMAGING: Chest x-ray dated 09/02/2023 demonstrates the cardiac silhouette is mildly enlarged and the pulmonary vessels are within normal limits, there is no focal area of consolidation, question small bilateral pleural effusions on the lateral evaluation best visualized. Chest x-ray dated 09/04/2023 demonstrates cardiomegaly, pulmonary vascular congestion and bilateral pleural effusions, with BNP for congestive heart failure. Cardiology recommending to increase metoprolol up to 200 mg twice a day with one-time extra dose of metoprolol 25 mg 1 -- Patient has been evaluated by pulmonary service; recommended to continue with current management 09/06/2023 Patient this morning is still tachypneic and short of breath with some expiratory wheezing, his kept on IV Lasix 40 mg every 8 hours and IV Solu-Medrol 60 mg. His creatinine 0.7 today. Postop labs look stable. Patient is asking specifically about more pain medication of opioids and Valium, risks and benefits are explained for him and he verbalized understanding and acceptance Maze on home dose of liquids, Zithromax, Solu-Medrol 60 mg on IV Lasix which going to switch him to twice daily 09/07/2023 Patient breathing is improved on close to baseline, no wheezing, mildly tachypn eic while at rest, patient is seen in bed most of the time Is hemodynamically stable Labs look stable with dilute BC at 12,000 while he is on steroids, hemoglobin and creatinine are stable and within the reference range. He remains on Zithromax, home dose of liquids 5 mg, IV Lasix 40 mg twice daily, IV Solu-Medrol Patient is getting medically stable for discharge. However patient is not helping himself regarding his discharge, for example Tylenol did not pick that ECF he needs to go for rehab. We tried to encourage the patient. As discussed with the bedside nurse and manager of case Patient may be considered for discharge soon 09/08/2023 Patient breathing is improving slowly and gradually. Remains on IV salmeterol 60 mg and IV Lasix 40 mg twice daily Patient possible discharge to subacute rehab Sugar still uncontrolled at Levemir 10 units daily on the top of his 20 units at bedtime Possible discharge in 24-48 hours 09/09/2023 Patient breathing improving slowly and gradually, no chest pain no coughing. No other new complaints I have lengthy discussion with the patient about his problems and mechanism of his COPD and the treatment strategy and he verbalized understanding and accep tance. Patient cirrhosis wish to prednisone Plan to switch IV Lasix to oral dose Patient requires ECF for rehab upon discharge Possible discharge in 24-48 hours if he keeps improving 09/10/2023 Patient still somewhat dyspneic but close to baseline No new complaint Currently he is placed on prednisone as well as his home dose of Eliquis, Lasix and Zithromax Clonidine is added for better blood pressure control, heart rate control and also would help with the patient moved Pending prior authorization per my discussion with case management 09/11/2023 Patient breathing is improving, however he still have some wheezing which is expected to persist given his severe degree of COPD His current it continued on a prednisone 40 mg with improvement creatinine is stable therefore continue with IV Lasix 40 mg for now Check creatinine tomorrow Blood pressure is better controlled after adding clonidine His continue on Zithromax Pending placement to subacute rehab 09/12/2023 Patient is with a chronic wheezing and chronic dyspnea, however patient is able of talking without difficulty and his oxygen requirements are stable over several days Also patient is diuresing well with IV Lasix and creatinine stable therefore we'll keep it on diuretics that looks like patient is improving. His blood pressure in the low side decreased clonidine 0.1 mg twice daily and to once daily His sugar in the low side in the morning the patient was walking to decrease his Levemir 15 units to 20 units. This is because his IV steroids was discharged to oral prednisone Plan for patient to go to subacute rehab upon discharge Objective - Vital Signs Vital signs: Vital Signs Temp 96.7 F L 09/12/23 07:12 Pulse 88 09/12/23 08:51 Resp 16 09/12/23 07:12 BP 120/76 09/12/23 07:12 Pulse Ox 97 09/12/23 07:12 FiO2 Intake & Output 09/11/23 09/12/23 09/12/23 18:59 06:59 18:59 Output Total 950 1116 Balance -950 -1116 Output: Urine 950 1116 Other: Voiding Method Urinal - Exam GENERAL: The patient is alert and oriented x3, not in any acute distress. Well developed, well nourished. HEENT: Pupils are round and equally reacting to light. EOMI. No scleral icterus. No conjunctival pallor. Normocephalic, atraumatic. No pharyngeal erythema. No thyromegaly. CARDIOVASCULAR: S1 and S2 present. No murmurs, rubs, or gallops. -PULMONARY: Chest is clear to auscultation, bilateral expiratory wheezing , no crackles. ABDOMEN: Soft, nontender, nondistended, normoactive bowel sounds. No palpable organomegaly. MUSCULOSKELETAL: No joint swelling or deformity. EXTREMITIES: No cyanosis, clubbing, or pedal edema. NEUROLOGICAL: Gross neurological examination did not reveal any focal deficits. SKIN: No rashes. no petechiae. - Labs CBC & Chem 7: 09/12/23 06:15 09/12/23 06:15 Labs: Abnormal Lab Results - Last 24 Hours (Table) 09/11/23 09/11/23 09/11/23 Range/Units 11:37 14:15 14:49 Sodium 133 L (137-145) mmol/L Chloride 88 L (98-107) mmol/L Carbon Dioxide 38 H (22-30) mmol/L BUN 31 H (9-20) mg/dL Creatinine 0.65 L (0.66-1.25) mg/dL Glucose 132 H (74-99) mg/dL POC Glucose (mg/dL) 157 H 252 H (70-110) mg/dL Calcium 7.6 L (8.4-10.2) mg/dL AST 16 L (17-59) U/L Total Protein 5.1 L (6.3-8.2) g/dL Albumin 2.9 L (3.5-5.0) g/dL 09/11/23 09/11/23 09/12/23 Range/Units 16:05 19:43 06:23 Sodium (137-145) mmol/L Chloride (98-107) mmol/L Carbon Dioxide (22-30) mmol/L BUN (9-20) mg/dL Creatinine (0.66-1.25) mg/dL Glucose (74-99) mg/dL POC Glucose (mg/dL) 177 H 273 H 165 H (70-110) mg/dL Calcium (8.4-10.2) mg/dL AST (17-59) U/L Total Protein (6.3-8.2) g/dL Albumin (3.5-5.0) g/dL Assessment and Plan Assessment: 1. Weakness/generalized debility versus metabolic encephalopathy ( improved ) related to acute renal injury -- We will consult PT/OT for further evaluation -- Case management for discharge planning, possible ECF for subacute rehab 2. Acute COPD exacerbation - Continue with oral prednisone - Pulmonary team consult 3. Mild [facility]; increase fluid intake; monitor renal function and electrolytes; avoid nephrotoxins and hypotension Improving 4. Chronic hypoxic respiratory failure; continue with home oxygen therapy 5. Acute on Chronic CHF with reduced EF of 40-45% - Echocardiogram reveals slight ventricular dilation - Continue with IV Lasix for another day and may switch him to oral dose in 24- 48 hours 6. Chronic atrial fibrillation; continue with systemic anticoagulation; patient remains rate controlled 7. Hypertension; metoprolol 50 g twice a day 8. Hyperlipidemia; Lipitor 40 mg 2 daily at bedtime 9. Diabetes mellitus type 2 with long-term insulin use DVT prophylaxis; SCDs CODE STATUS; full code
[2023-09-12] MEDS: BUDESONIDE 0.5 MG/2 ML NEBU INHALATION SCH (20:34)
[2023-09-12] MEDS: FORMOTEROL FUMARATE 20 MCG/2 ML NEBU INHALATION SCH (20:34)
[2023-09-12 21:02] LABS: Glucose,Whole Blood 274 mg/dL (70-110)
[2023-09-12] MEDS: guaiFENesin 600 MG TABLET.ER PO SCH (21:30)
[2023-09-12] MEDS: PREGABALIN 75 MG CAP PO SCH (21:30)
[2023-09-12] MEDS: ESCITALOPRAM 5 MG TAB PO SCH (21:30)
[2023-09-12] MEDS: ATORVASTATIN 40 MG TAB PO SCH (21:30)
[2023-09-12] MEDS: DULoxetine HCL 30 MG CAPSULE.DR PO SCH (21:30)
[2023-09-12] MEDS: NICOTINE 21MG/24HR PATCH TRANSDERM SCH (21:30)
[2023-09-12] MEDS: TAMSULOSIN 0.4 MG CAP.ER.24H PO SCH (21:31)
[2023-09-13] MEDS: IPRATROPIUM-ALBUTEROL 3 ML NEB INHALATION PRN ×2 (00:04→03:58)
[2023-09-13] MEDS: ACETAMINOPHEN TAB 325 MG TAB PO PRN ×2 (00:14→20:53)
[2023-09-13] MEDS: MELATONIN 5 MG TABLET PO PRN ×2 (00:14→20:52)
[2023-09-13] MEDS: HYDROcodone/APAP 10-325MG 1 EACH TAB PO PRN ×4 (02:14→18:30)
[2023-09-13 05:38] LABS: Glucose,Whole Blood 169 mg/dL (70-110)
[2023-09-13] MEDS: THEOPHYLLINE 24 HOUR 400 MG CAP.ER.24H PO SCH (05:48)
[2023-09-13] MEDS: PANTOPRAZOLE 40 MG TABLET PO SCH ×2 (05:48→17:00)
[2023-09-13] MEDS: SPIRONOLACTONE 25 MG TAB PO SCH (05:48)
[2023-09-13] MEDS: INSULIN DETEMIR (LEVEMIR) 100 UNIT/ML SYR SQ SCH ×2 (05:49→20:51)
[2023-09-13] MEDS: DAPAGLIFLOZIN PROPANEDIOL 10 MG TABLET PO SCH (05:49)
[2023-09-13] MEDS: FUROSEMIDE 10 MG/ML 4 ML VIAL IV SCH ×2 (07:34→20:51)
[2023-09-13] MEDS: FORMOTEROL FUMARATE 20 MCG/2 ML NEBU INHALATION SCH ×2 (07:45→21:12)
[2023-09-13] MEDS: IPRATROPIUM-ALBUTEROL 3 ML NEB INHALATION SCH ×4 (07:45→21:12)
[2023-09-13] MEDS: BUDESONIDE 0.5 MG/2 ML NEBU INHALATION SCH ×2 (07:46→21:12)
[2023-09-13] MEDS ORDERED: diazePAM 2 MG TAB PO SCH (09:00)
[2023-09-13] MEDS: metFORMIN 500 MG TAB PO SCH ×2 (09:03→20:51)
[2023-09-13] MEDS: METOPROLOL TARTRATE 50 MG TAB PO SCH ×2 (09:03→20:52)
[2023-09-13] MEDS: APIXABAN 5 MG TAB PO SCH ×2 (09:03→20:51)
[2023-09-13] MEDS: cloNIDine HCL 0.1 MG TAB PO SCH (09:03)
[2023-09-13] MEDS: POTASSIUM CHLORIDE ER 20 MEQ TAB.ER PO SCH (09:03)
[2023-09-13] MEDS: NYSTATIN 100,000 UNIT/GM POWD 15 GM TOPICAL SCH ×3 (09:04→20:53)
[2023-09-13] MEDS: predniSONE 20 MG TAB PO SCH (09:04)
[2023-09-13 11:17] LABS: Glucose,Whole Blood 206 mg/dL (70-110)
--- NOTE | 2023-09-13 12:04 | P.PN ---
Subjective Progress Note Date: 09/13/23 This is a 72-year-old male patient with a past medical history significant for severe oxygen dependent COPD, normally maintained on 3 L/m nasal cannula, congestive heart failure, chronic atrial fibrillation, diabetes mellitus, hyperlipidemia, hypertension, obesity, GERD and is a ongoing chronic smoker. He was staying at [facility] rehab facility. He has had multiple multiple readmissions to the hospital. He was just discharged from here on 09/01/2023 to home. He had refused to go to subacute rehabilitation. 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 The next day EMS was called to his house and he was still in a chair sitting in feces and urine unable to get up and get himself to the bathroom. He was admitted again on 09/02/2023. He is seen today in consultation. He sitting up in a chair. Awake and alert in no acute distress. He is maintaining O2 saturations in the mid to upper 90s on 3 L/m per nasal cannula. He is afebrile. Hemodynamically stable. The x-ray continues to show cardiomegaly with pulmonary vascular congestion and small bilateral effusions. EKG reveals atrial fibrillation with a controlled ventricular response. White count 15.8. Hemoglobin 11.7. Platelets 231. Sodium 136. Potassium 3.9. Bicarb 33. BUN 20. Creatinine 0.8. Glucose 156. BNP 429. Troponins negative. On today's evaluation of 09/06/2023, the patient has no specific complaints. Is complaining of some ongoing shortness of breath which is attributed to his chronic COPD. The patient was hospitalized as the patient is unable to take care of himself. The patient wants to go to rehabilitation and is interested in going to [facility] on the [place]. He is on bronchodilators. He is on steroids. Is on antibiotics. Outpatient medications have been all resumed. In terms of labs, the white cell count at 17 with a hemoglobin 10.4 and a platelet count of 213, sodium is at 136, potassium is at 3.2, BUN is at 20 with a creatinine of 0.7 and a blood sugars at 257. The patient is on insulin and a formal Levemir 20 units daily at bedtime and NovoLog sliding scale coverage. He is also on a nicotine patch. He is chronically debilitated with chronic hypoxic respiratory failure and advanced COPD. On today's evaluation of 09/07/2023, the patient's condition is stable. The patient's respiratory status is adequate and is gradually improving. Less short of breath compared to yesterday. Remains on broke a dilated. Remains on steroids. We'll ask case management to work on discharge planning on this patient as the patient may benefit from long-term placement. He is still interested in ECF. No new complaints otherwise for now. The echoes at 12.8, he was to 0.5, BUN is at 20 with a creatinine of 0.7 and a sodium level is at 140. On 08/31/2023, no new complaints and the patient is being treated for COPD exacerbation is also being diuresed. Remains on bronchodilators. Remains on steroids. Remains on diuretics. At the same time, were looking into placement for long-term for this patient. Case management is on the case. No new labs are available from today. Blood sugars are slightly elevated related to the use of systemic steroids. He is currently on 3 L of O2 nasal cannula. On today's evaluation of 09/09/2023, no new complaints and the patient is still being treated for COPD exacerbation and the same time he is being considered for placement. The patient on IV Solu-Medrol. The patient is on room air oxygen with a pulse ox of 96%. Hemodynamically, the patient is stable. No new labs are available from today. On 09/10/2023, no new complaints and the patient is still being treated for an acute choked exacerbation. Is currently on a prednisone burst taper starting with 40 mg. He remains on Symbicort. He is on [facility] [id number]. Working on placement. No new labs are available from today. He is on 3 L with a pulse ox of 96% On 09/11/2023, the patient is sitting up on a recliner. Continues to receive the same bronchodilators. Continues to be on a prednisone 40 mg by mouth daily. No new complaints. Hemodynamically stable on 40s of Oxymizer nasal cannula with a pulse ox of 99%. No chest pain. Medications remain essentially unchanged. Remains on anticoagulation with Eliquis 5 mg by mouth twice a day. Remains on Levemir insulin 20 units and a sliding scale coverage. Meanwhile, the patient continues to diabetes. Overall fluid balance is -1.5 L over the past 24 hours. He is producing excellent urine output. Electrolytes need to be checked as long as the patient remains on aggressive diuresis regimen. He remains on Lasix 40 mg IV every 12 hours. On 09/12/2023, the patient started complaining of shortness of breath. Earlier this morning, he had some increased bronchospasm and wheeze. Was placed in bed. He is feeling better already. He is on prednisone burst taper. He is on Symbicort is on DuoNeb updrafts. He is on theophylline. He has advanced lung disease with chronic shortness of breath and dyspnea. He continues to receive diuretics and the patient is currently on Lasix 40 mg IV every 12 hours. He remains on long-term and coagulation with Eliquis. The blood work from today shows a BUN of 21 with a creatinine of 0.5 and a sodium levels of 139. Potassium is at 3.6. White cell cause of 9.8 with a hemoglobin of 10.8. Fluid balance has been -8 50 mL over the past 24 hours and the patient is headed towards another liters negative fluid balance over the next 24 hours. His been diuresing adequately during this current hospital stay. The patient is seen today 09/13/2023 in follow-up on the regular medical floor. He is currently sitting up in bed. Awake and alert in no acute distress. He is maintaining O2 saturations in the mid 90s on 4 L/m per nasal cannula. Afebrile. Hemodynamically stable. Glucose 206. He is continued on DuoNeb inhalations, Pulmicort and Perforomist inhalations, theophylline, prednisone taper. He is anticoagulated with Eliquis. Remains on IV diuretics. He is currently in a - 1.5 L balance. Objective - Vital Signs Vital signs: Vital Signs Temp 98.0 F 09/13/23 07:30 Pulse 106 H 09/13/23 08:18 Resp 19 09/13/23 07:30 BP 134/80 09/13/23 07:30 Pulse Ox 96 09/13/23 07:50 FiO2 Intake & Output 09/12/23 09/13/23 09/13/23 18:59 06:59 18:59 Output Total 1510 300 Balance -1510 -300 Output: Urine 1510 300 Other: Voiding Method Urinal - Exam GENERAL EXAM: Alert, pleasant 72-year-old male, sitting up in bed, on 4 L nasal cannula, comfortable in no apparent distress. HEAD: Normocephalic. EYES: Normal reaction of pupils, equal size. NOSE: Clear with pink turbinates. THROAT: No erythema or exudates. NECK: No masses, no JVD. CHEST: No chest wall deformity. LUNGS: Equal air entry with end expiratory wheeze. Diminished. CVS: S1 and S2 normal with no audible murmur, regular rhythm. ABDOMEN: No hepatosplenomegaly, normal bowel sounds, no guarding or rigidity. SPINE: No scoliosis or deformity SKIN: No rashes CENTRAL NERVOUS SYSTEM: No focal deficits, tone is normal in all 4 extremities. EXTREMITIES: There is 1+ peripheral edema. No clubbing, no cyanosis. Arlette pheral pulses are intact. - Labs CBC & Chem 7: 09/12/23 06:15 09/12/23 06:15 Labs: Abnormal Lab Results - Last 24 Hours (Table) 09/12/23 09/12/23 09/13/23 Range/Units 16:46 21:01 05:37 POC Glucose (mg/dL) 208 H 274 H 169 H (70-110) mg/dL 09/13/23 Range/Units 11:14 POC Glucose (mg/dL) 206 H (70-110) mg/dL Assessment and Plan Assessment: Generalized weakness, secondary to ongoing debility and refusal to go to subacute rehabilitation, did not obtain his medications post discharge he was home for 24 hours. Found sitting in a chair in feces and urine Chronic hypoxemic respiratory failure secondary to an acute exacerbation of chronic obstructive pulmonary disease Chronic and ongoing tobacco dependence Exacerbation of diastolic CHF with recent echocardiogram continues to show RV dilatation and moderate degree of pulmonary hypertension. Ejection fraction is improved and is currently 50-55%. Chronic atrial fibrillation, with controlled ventricular rate, anticoagulated on Eliquis, Essential hypertension Hyperlipidemia Diabetes mellitus type 2, complicated by diabetic neuropathy Morbid obesity with BMI of 31 kg/m Chronic pain Umbilical Hernia Plan: The patient was seen and evaluated Labs and medications reviewed Continue bronchodilators, steroids Remains on IV diuretics Again educated regarding the importance of complete smoking cessation NicoDerm patch in place The patient is considering subacute rehabilitation and/or hospice Continue the current treatment plan for now This patient was seen independently by the pulmonary nurse practitioner addressing the pulmonary issues I have personally seen and examined the patient, performed the documentation and the assessment and plan as written. Number of minutes spent on the visit: 24.
[2023-09-13 16:01] LABS: Glucose,Whole Blood 195 mg/dL (70-110)
[2023-09-13 20:28] LABS: Glucose,Whole Blood 260 mg/dL (70-110)
[2023-09-13] MEDS: ATORVASTATIN 40 MG TAB PO SCH (20:51)
[2023-09-13] MEDS: guaiFENesin 600 MG TABLET.ER PO SCH (20:51)
[2023-09-13] MEDS: ESCITALOPRAM 5 MG TAB PO SCH (20:52)
[2023-09-13] MEDS: PREGABALIN 75 MG CAP PO SCH (20:52)
[2023-09-13] MEDS: DULoxetine HCL 30 MG CAPSULE.DR PO SCH (20:52)
[2023-09-13] MEDS: TAMSULOSIN 0.4 MG CAP.ER.24H PO SCH (20:52)
[2023-09-13] MEDS: NICOTINE 21MG/24HR PATCH TRANSDERM SCH (20:53)
[2023-09-13] MEDS: diazePAM 2 MG TAB PO SCH (20:57)
[2023-09-14] MEDS: IPRATROPIUM-ALBUTEROL 3 ML NEB INHALATION PRN (03:37)
[2023-09-14] MEDS: HYDROcodone/APAP 10-325MG 1 EACH TAB PO PRN ×5 (04:14→22:17)
[2023-09-14] MEDS: PANTOPRAZOLE 40 MG TABLET PO SCH ×2 (05:50→17:39)
[2023-09-14] MEDS: DAPAGLIFLOZIN PROPANEDIOL 10 MG TABLET PO SCH (05:50)
[2023-09-14] MEDS: SPIRONOLACTONE 25 MG TAB PO SCH (05:50)
[2023-09-14] MEDS: THEOPHYLLINE 24 HOUR 400 MG CAP.ER.24H PO SCH (05:50)
[2023-09-14 05:59] LABS: Glucose,Whole Blood 181 mg/dL (70-110)
[2023-09-14] MEDS: FUROSEMIDE 10 MG/ML 4 ML VIAL IV SCH ×2 (08:27→20:29)
[2023-09-14] MEDS: IPRATROPIUM-ALBUTEROL 3 ML NEB INHALATION SCH ×4 (08:54→19:55)
[2023-09-14] MEDS: FORMOTEROL FUMARATE 20 MCG/2 ML NEBU INHALATION SCH ×2 (08:54→19:55)
[2023-09-14] MEDS: BUDESONIDE 0.5 MG/2 ML NEBU INHALATION SCH ×2 (08:54→19:55)
[2023-09-14] MEDS: metFORMIN 500 MG TAB PO SCH ×2 (09:05→20:28)
[2023-09-14] MEDS: METOPROLOL TARTRATE 50 MG TAB PO SCH ×2 (09:05→20:28)
[2023-09-14] MEDS: POTASSIUM CHLORIDE ER 20 MEQ TAB.ER PO SCH (09:06)
[2023-09-14] MEDS: cloNIDine HCL 0.1 MG TAB PO SCH (09:06)
[2023-09-14] MEDS: predniSONE 20 MG TAB PO SCH (09:06)
[2023-09-14] MEDS: APIXABAN 5 MG TAB PO SCH ×2 (09:06→20:28)
[2023-09-14] MEDS: NYSTATIN 100,000 UNIT/GM POWD 15 GM TOPICAL SCH ×3 (09:07→20:30)
[2023-09-14 10:48] LABS: Glucose,Whole Blood 230 mg/dL (70-110)
--- NOTE | 2023-09-14 11:02 | P.PN ---
Subjective Progress Note Date: 09/14/23 This is a 72-year-old male patient with a past medical history significant for severe oxygen dependent COPD, normally maintained on 3 L/m nasal cannula, congestive heart failure, chronic atrial fibrillation, diabetes mellitus, hyperlipidemia, hypertension, obesity, GERD and is a ongoing chronic smoker. He was staying at [facility] rehab facility. He has had multiple multiple readmissions to the hospital. He was just discharged from here on 09/01/2023 to home. He had refused to go to subacute rehabilitation. He did not package pick up his medication from the pharmacy. The next day EMS was called to his house and he was still in a chair sitting in feces and urine unable to get up and get himself to the bathroom. He was admitted again on 09/02/2023. He is seen today in consultation. He sitting up in a chair. Awake and alert in no acute distress. He is maintaining O2 saturations in the mid to upper 90s on 3 L/m per nasal cannula. He is afebrile. Hemodynamically stable. The x-ray continues to show cardiomegaly with pulmonary vascular congestion and small bilateral effusions. EKG reveals atrial fibrillation with a controlled ventricular response. White count 15.8. Hemoglobin 11.7. Platelets 231. Sodium 136. Potassium 3.9. Bicarb 33. BUN 20. Creatinine 0.8. Glucose 156. BNP 429. Troponins negative. On today's evaluation of 09/06/2023, the patient has no specific complaints. Is complaining of some ongoing shortness of breath which is attributed to his chronic COPD. The patient was hospitalized as the patient is unable to take care of himself. The patient wants to go to rehabilitation and is interested in going to [facility] on the burns. He is on bronchodilators. He is on steroids. Is on antibiotics. Outpatient medications have been all resumed. In terms of labs, the white cell count at 17 with a hemoglobin 10.4 and a platelet count of 213, sodium is at 136, potassium is at 3.2, BUN is at 20 with a creatinine of 0.7 and a blood sugars at 257. The patient is on insulin and a formal Levemir 20 units daily at bedtime and NovoLog sliding scale coverage. He is also on a nicotine patch. He is chronically debilitated with chronic hypoxic respiratory failure and advanced COPD. On today's evaluation of 09/07/2023, the patient's condition is stable. The patient's respiratory status is adequate and is gradually improving. Less short of breath compared to yesterday. Remains on broke a dilated. Remains on steroids. We'll ask case management to work on discharge planning on this patient as the patient may benefit from usp placement. He is still interested in ECF. No new complaints otherwise for now. The echoes at 12.8, he was to 0.5, BUN is at 20 with a creatinine of 0.7 and a sodium level is at 140. On 08/31/2023, no new complaints and the patient is being treated for COPD exacerbation is also being diuresed. Remains on bronchodilators. Remains on steroids. Remains on diuretics. At the same time, were looking into placement for usp for this patient. Case management is on the case. No new labs are available from today. Blood sugars are slightly elevated related to the use of systemic steroids. He is currently on 3 L of O2 nasal cannula. On today's evaluation of 09/09/2023, no new complaints and the patient is still being treated for COPD exacerbation and the same time he is being considered for placement. The patient on IV Solu-Medrol. The patient is on room air oxygen with a pulse ox of 96%. Hemodynamically, the patient is stable. No new labs are available from today. On 09/10/2023, no new complaints and the patient is still being treated for an acute choked exacerbation. Is currently on a prednisone burst taper starting with 40 mg. He remains on Symbicort. He is on [facility] [id number]. Working on placement. No new labs are available from today. He is on 3 L with a pulse ox of 96% On 09/11/2023, the patient is sitting up on a recliner. Continues to receive the same bronchodilators. Continues to be on a prednisone 40 mg by mouth daily. No new complaints. Hemodynamically stable on 40s of Oxymizer nasal cannula with a pulse ox of 99%. No chest pain. Medications remain essentially unchanged. Remains on anticoagulation with Eliquis 5 mg by mouth twice a day. Remains on Levemir insulin 20 units and a sliding scale coverage. Meanwhile, the patient continues to diabetes. Overall fluid balance is -1.5 L over the past 24 hours. He is producing excellent urine output. Electrolytes need to be checked as long as the patient remains on aggressive diuresis regimen. He remains on Lasix 40 mg IV every 12 hours. On 09/12/2023, the patient started complaining of shortness of breath. Earlier this morning, he had some increased bronchospasm and wheeze. Was placed in bed. He is feeling better already. He is on prednisone burst taper. He is on Symbicort is on DuoNeb updrafts. He is on theophylline. He has advanced lung disease with chronic shortness of breath and dyspnea. He continues to receive diuretics and the patient is currently on Lasix 40 mg IV every 12 hours. He remains on long-term and coagulation with Eliquis. The blood work from today shows a BUN of 21 with a creatinine of 0.5 and a sodium levels of 139. Potassium is at 3.6. White cell cause of 9.8 with a hemoglobin of 10.8. Fluid balance has been -8 50 mL over the past 24 hours and the patient is headed towards another liters negative fluid balance over the next 24 hours. His been diuresing adequately during this current hospital stay. The patient is seen today 09/13/2023 in follow-up on the regular medical floor. He is currently sitting up in bed. Awake and alert in no acute distress. He is maintaining O2 saturations in the mid 90s on 4 L/m per nasal cannula. Afebrile. Hemodynamically stable. Glucose 206. He is continued on DuoNeb inhalations, Pulmicort and Perforomist inhalations, theophylline, prednisone taper. He is anticoagulated with Eliquis. Remains on IV diuretics. He is currently in a - 1.5 L balance. The patient is seen today 09/14/2023 for follow-up on the regular medical floor. He is awake and alert in no acute distress. He is breathing is the same today as yesterday. No worse. He continues to maintain O2 saturations in the 90s on 4 L/m per nasal cannula. She's been afebrile. Hemodynamically stable. Glucose 181. He is continued on DuoNeb inhalations, Pulmicort and Perforomist inhalations, theophylline, prednisone taper. He is anticoagulated with Eliquis. Remains on IV diuretics. He is currently in a -2.1 L balance. executive communications manager still working on discharge planning regarding hospice house versus home with hospice. Objective - Vital Signs Vital signs: Vital Signs Temp 97.6 F 09/14/23 07:20 Pulse 106 H 09/14/23 09:14 Resp 19 09/14/23 07:20 BP 124/75 09/14/23 07:20 Pulse Ox 93 L 09/14/23 08:57 FiO2 Intake & Output 09/13/23 09/14/23 09/14/23 18:59 06:59 18:59 Output Total 2150 Balance -215 Output: Urine 2150 Other: Voiding Method Urinal Urinal # Voids 3 - Exam GENERAL EXAM: Alert, oriented, weak 72-year-old male, on 4 L nasal cannula, comfortable in no apparent distress. HEAD: Normocephalic. EYES: Normal reaction of pupils, equal size. NOSE: Clear with pink turbinates. THROAT: No erythema or exudates. NECK: No masses, no JVD. CHEST: No chest wall deformity. LUNGS: Equal air entry with end expiratory wheeze. Diminished. CVS: S1 and S2 normal with no audible murmur, regular rhythm. ABDOMEN: No hepatosplenomegaly, normal bowel sounds, no guarding or rigidity. SPINE: No scoliosis or deformity SKIN: No rashes CENTRAL NERVOUS SYSTEM: No focal deficits, tone is normal in all 4 extremities. EXTREMITIES: There is 1+ peripheral edema. No clubbing, no cyanosis. Peripheral pulses are intact. - Labs CBC & Chem 7: 09/12/23 06:15 09/12/23 06:15 Labs: Abnormal Lab Results - Last 24 Hours (Table) 09/13/23 09/13/23 09/13/23 Range/Units 11:14 15:59 20:26 POC Glucose (mg/dL) 206 H 195 H 260 H (70-110) mg/dL 09/14/23 09/14/23 Range/Units 05:57 10:47 POC Glucose (mg/dL) 181 H 230 H (70-110) mg/dL Assessment and Plan Assessment: Generalized weakness, secondary to ongoing debility and refusal to go to subacute rehabilitation, did not obtain his medications post discharge he was home for 24 hours. Found sitting in a chair in feces and urine Chronic hypoxemic respiratory failure secondary to an acute exacerbation of chronic obstructive pulmonary disease Chronic and ongoing tobacco dependence Exacerbation of diastolic CHF with recent echocardiogram continues to show RV dilatation and moderate degree of pulmonary hypertension. Ejection fraction is improved and is currently 50-55%. Chronic atrial fibrillation, with controlled ventricular rate, anticoagulated on Eliquis, Essential hypertension Hyperlipidemia Diabetes mellitus type 2, complicated by diabetic neuropathy Morbid obesity with BMI of 31 kg/m Chronic pain Umbilical Hernia Plan: The patient was seen and evaluated Labs and medications reviewed Continue the current treatment plan Titrate the FiO2 as tolerated Remains in a negative balance The patient is considering home with hospice or the hospice house This patient was seen independently by the pulmonary nurse practitioner addressing the pulmonary issues I have personally seen and examined the patient, performed the documentation and the assessment and plan as written. Number of minutes spent on the visit: 22.
[2023-09-14 16:56] LABS: Glucose,Whole Blood 288 mg/dL (70-110)
[2023-09-14 20:06] LABS: Glucose,Whole Blood 261 mg/dL (70-110)
[2023-09-14] MEDS: guaiFENesin 600 MG TABLET.ER PO SCH (20:28)
[2023-09-14] MEDS: ESCITALOPRAM 5 MG TAB PO SCH (20:28)
[2023-09-14] MEDS: DULoxetine HCL 30 MG CAPSULE.DR PO SCH (20:28)
[2023-09-14] MEDS: ATORVASTATIN 40 MG TAB PO SCH (20:28)
[2023-09-14] MEDS: MELATONIN 5 MG TABLET PO PRN (20:28)
[2023-09-14] MEDS: diazePAM 2 MG TAB PO SCH (20:28)
[2023-09-14] MEDS: INSULIN DETEMIR (LEVEMIR) 100 UNIT/ML SYR SQ SCH (20:29)
[2023-09-14] MEDS: TAMSULOSIN 0.4 MG CAP.ER.24H PO SCH (20:30)
[2023-09-14] MEDS: PREGABALIN 75 MG CAP PO SCH (20:30)
[2023-09-14] MEDS: NICOTINE 21MG/24HR PATCH TRANSDERM SCH (20:41)
[2023-09-14] MEDS ORDERED: guaiFENesin SYRUP 100MG/5ML 200 MG/10 ML CUP PO PRN (22:33)
[2023-09-15] MEDS: IPRATROPIUM-ALBUTEROL 3 ML NEB INHALATION PRN ×2 (00:22→03:28)
[2023-09-15] MEDS: DAPAGLIFLOZIN PROPANEDIOL 10 MG TABLET PO SCH (05:51)
[2023-09-15] MEDS: SPIRONOLACTONE 25 MG TAB PO SCH (05:51)
[2023-09-15] MEDS: PANTOPRAZOLE 40 MG TABLET PO SCH ×2 (05:51→17:09)
[2023-09-15] MEDS: THEOPHYLLINE 24 HOUR 400 MG CAP.ER.24H PO SCH (05:51)
[2023-09-15] MEDS: HYDROcodone/APAP 10-325MG 1 EACH TAB PO PRN ×4 (05:51→17:09)
[2023-09-15 05:55] LABS: Glucose,Whole Blood 149 mg/dL (70-110)
--- NOTE | 2023-09-15 07:44 | P.PN ---
Subjective 72-year-old male well known to the emergency department who presents with weakness. He has a history of COPD, A. fib. Was recently hospitalized at our facility and discharged home yesterday. States he was discharged home with home health care. He was refusing transfer to a rehab facility. Patient subsequently went home and sat in his chair. He was defecating and urinating on himself. He was too weak to get up and ambulate. Presents again today stating that he does feel he needs to be in a nursing facility. He did not take any of his medications today. Denies any chest pain. Has chronic shortness of breath. No other alleviating, precipitating or modified factors Upon arrival to ED patient was found to be disheveled and covered in feces and urine EKG reveals atrial fibrillation with heart rate of [address] elevation or depression Blood work completed views a WBC of 17, hemoglobin of 12.5, platelet count of 309, sodium 133 AND 2.7, BUN/creatinine of 25/0.58, lactic acid of 2.2 and troponin at 0.0-4 Chest x-ray reported as cardiac silhouette mildly enlarged but pulmonary vessels within normal limits; questionable small bilateral pleural effusion on lateral films Patient is admitted for weakness and debility and adult failure to thrive; we will need consult with case management for discharge 24 hour interval change 09/05/2023 Patient is sitting up in bedside chair; reports improvement in breathing; patient reports uncontrolled pain and requesting [place] to be changed to a stronger pain medication Vital signs are reviewed and are stable Temp 98.4, pulse 112, respirations 22, blood pressure 146/67, O2 saturation 95% on 4 L LABS: White count 13.2, hemoglobin 11.0, platelets 235, sodium 129, potassium 3.1, BUN 21, creatinine 0.54, calcium 7.1, troponin-0.024, less than 0.012 EKG: Atrial fibrillation with rapid ventricular response IMAGING: Chest x-ray dated 09/02/2023 demonstrates the cardiac silhouette is mildly enlarged and the pulmonary vessels are within normal limits, there is no focal area of consolidation, question small bilateral pleural effusions on the lateral evaluation best visualized. Chest x-ray dated 09/04/2023 demonstrates cardiomegaly, pulmonary vascular congestion and bilateral pleural effusions, with BNP for congestive heart failure. Cardiology recommending to increase metoprolol up to 200 mg twice a day with one-time extra dose of metoprolol 25 mg 1 -- Patient has been evaluated by pulmonary service; recommended to continue with current management 09/06/2023 Patient this morning is still tachypneic and short of breath with some expiratory wheezing, his kept on IV Lasix 40 mg every 8 hours and IV Solu-Medrol 60 mg. His creatinine 0.7 today. Postop labs look stable. Patient is asking specifically about more pain medication of opioids and Valium, risks and benefits are explained for him and he verbalized understanding and acceptance Maze on home dose of liquids, Zithromax, Solu-Medrol 60 mg on IV Lasix which going to switch him to twice daily 09/07/2023 Patient breathing is improved on close to baseline, no wheezing, mildly tachypn eic while at rest, patient is seen in bed most of the time Is hemodynamically stable Labs look stable with dilute BC at 12,000 while he is on steroids, hemoglobin and creatinine are stable and within the reference range. He remains on Zithromax, home dose of liquids 5 mg, IV Lasix 40 mg twice daily, IV Solu-Medrol Patient is getting medically stable for discharge. However patient is not helping himself regarding his discharge, for example Tylenol did not pick that ECF he needs to go for rehab. We tried to encourage the patient. As discussed with the bedside nurse and transplant case manager Patient may be considered for discharge soon 09/08/2023 Patient breathing is improving slowly and gradually. Remains on IV salmeterol 60 mg and IV Lasix 40 mg twice daily Patient possible discharge to subacute rehab Sugar still uncontrolled at Levemir 10 units daily on the top of his 20 units at bedtime Possible discharge in 24-48 hours 09/09/2023 Patient breathing improving slowly and gradually, no chest pain no coughing. No other new complaints I have lengthy discussion with the patient about his problems and mechanism of his COPD and the treatment strategy and he verbalized understanding and accep tance. Patient cirrhosis wish to prednisone Plan to switch IV Lasix to oral dose Patient requires ECF for rehab upon discharge Possible discharge in 24-48 hours if he keeps improving 09/10/2023 Patient still somewhat dyspneic but close to baseline No new complaint Currently he is placed on prednisone as well as his home dose of Eliquis, Lasix and Zithromax Clonidine is added for better blood pressure control, heart rate control and also would help with the patient moved Pending prior authorization per my discussion with case management 09/11/2023 Patient breathing is improving, however he still have some wheezing which is expected to persist given his severe degree of COPD His current it continued on a prednisone 40 mg with improvement creatinine is stable therefore continue with IV Lasix 40 mg for now Check creatinine tomorrow Blood pressure is better controlled after adding clonidine His continue on Zithromax Pending placement to subacute rehab 09/12/2023 Patient is with a chronic wheezing and chronic dyspnea, however patient is able of talking without difficulty and his oxygen requirements are stable over several days Also patient is diuresing well with IV Lasix and creatinine stable therefore we'll keep it on diuretics that looks like patient is improving. His blood pressure in the low side decreased clonidine 0.1 mg twice daily and to once daily His sugar in the low side in the morning the patient was walking to decrease his Levemir 15 units to 20 units. This is because his IV steroids was discharged to oral prednisone Plan for patient to go to subacute rehab upon discharge 09/13/2023 Patient is still complaining from shortness breath and wheezing especially when he walked into the room most of this wheezing comes from the upper airways. Also patient complains from pain since the chest wall and also hold with asking him medication which compromised his breathing is more. Patient oxygen requirement in 3-4 L/m Patient is still pending placement and other places of ECF decline patient I discussed the case with transplant case manager, looks patient and daughter requested hospice consult for information. As per staff patient has been under hospice care before Objective - Vital Signs Vital signs: Vital Signs Temp 97.8 F 09/13/23 12:13 Pulse 86 09/13/23 15:45 Resp 19 09/13/23 12:13 BP 121/77 09/13/23 12:13 Pulse Ox 97 09/13/23 12:13 FiO2 Intake & Output 09/12/23 09/13/23 09/13/23 18:59 06:59 18:59 Output Total 1510 300 Balance -1510 -300 Output: Urine 1510 300 Other: Voiding Method Urinal - Exam GENERAL: The patient is alert and oriented x3, not in any acute distress. Well developed, well nourished. HEENT: Pupils are round and equally reacting to light. EOMI. No scleral icterus. No conjunctival pallor. Normocephalic, atraumatic. No pharyngeal erythema. No thyromegaly. CARDIOVASCULAR: S1 and S2 present. No murmurs, rubs, or gallops. -PULMONARY: Chest is clear to auscultation, bilateral expiratory wheezing , no crackles. ABDOMEN: Soft, nontender, nondistended, normoactive bowel sounds. No palpable organomegaly. MUSCULOSKELETAL: No joint swelling or deformity. EXTREMITIES: No cyanosis, clubbing, or pedal edema. NEUROLOGICAL: Gross neurological examination did not reveal any focal deficits. SKIN: No rashes. no petechiae. - Labs CBC & Chem 7: 09/12/23 06:15 09/12/23 06:15 Labs: Abnormal Lab Results - Last 24 Hours (Table) 09/12/23 09/12/23 09/13/23 Range/Units 16:46 21:01 05:37 POC Glucose (mg/dL) 208 H 274 H 169 H (70-110) mg/dL 09/13/23 Range/Units 11:14 POC Glucose (mg/dL) 206 H (70-110) mg/dL Assessment and Plan Assessment: 1. Weakness/generalized debility versus metabolic encephalopathy ( improved ) related to acute renal injury -- We will consult PT/OT for further evaluation -- Case management for discharge planning, possible ECF for subacute rehab 2. Acute COPD exacerbation - Continue with oral prednisone - Pulmonary team consult 3. Mild [facility]; increase fluid intake; monitor renal function and electrolytes; avoid nephrotoxins and hypotension Improving 4. Chronic hypoxic respiratory failure; continue with home oxygen therapy 5. Acute on Chronic CHF with reduced EF of 40-45% - Echocardiogram reveals slight ventricular dilation - Continue with IV Lasix for another day and may switch him to oral dose in 24- 48 hours 6. Chronic atrial fibrillation; continue with systemic anticoagulation; patient remains rate controlled 7. Hypertension; metoprolol 50 g twice a day 8. Hyperlipidemia; Lipitor 40 mg 2 daily at bedtime 9. Diabetes mellitus type 2 with long-term insulin use DVT prophylaxis; SCDs CODE STATUS; full code
--- NOTE | 2023-09-15 07:54 | P.PN ---
Subjective 72-year-old male well known to the emergency department who presents with weakness. He has a history of COPD, A. fib. Was recently hospitalized at our facility and discharged home yesterday. States he was discharged home with home health care. He was refusing transfer to a rehab facility. Patient subsequently went home and sat in his chair. He was defecating and urinating on himself. He was too weak to get up and ambulate. Presents again today stating that he does feel he needs to be in a nursing facility. He did not take any of his medications today. Denies any chest pain. Has chronic shortness of breath. No other alleviating, precipitating or modified factors Upon arrival to ED patient was found to be disheveled and covered in feces and urine EKG reveals atrial fibrillation with heart rate of [address] elevation or depression Blood work completed views a WBC of 17, hemoglobin of 12.5, platelet count of 309, sodium 133 AND 2.7, BUN/creatinine of 25/0.58, lactic acid of 2.2 and troponin at 0.0-4 Chest x-ray reported as cardiac silhouette mildly enlarged but pulmonary vessels within normal limits; questionable small bilateral pleural effusion on lateral films Patient is admitted for weakness and debility and adult failure to thrive; we will need consult with case management for discharge 24 hour interval change 09/05/2023 Patient is sitting up in bedside chair; reports improvement in breathing; patient reports uncontrolled pain and requesting [place] to be changed to a stronger pain medication Vital signs are reviewed and are stable Temp 98.4, pulse 112, respirations 22, blood pressure 146/67, O2 saturation 95% on 4 L LABS: White count 13.2, hemoglobin 11.0, platelets 235, sodium 129, potassium 3.1, BUN 21, creatinine 0.54, calcium 7.1, troponin-0.024, less than 0.012 EKG: Atrial fibrillation with rapid ventricular response IMAGING: Chest x-ray dated 09/02/2023 demonstrates the cardiac silhouette is mildly enlarged and the pulmonary vessels are within normal limits, there is no focal area of consolidation, question small bilateral pleural effusions on the lateral evaluation best visualized. Chest x-ray dated 09/04/2023 demonstrates cardiomegaly, pulmonary vascular congestion and bilateral pleural effusions, with BNP for congestive heart failure. Cardiology recommending to increase metoprolol up to 200 mg twice a day with one-time extra dose of metoprolol 25 mg 1 -- Patient has been evaluated by pulmonary service; recommended to continue with current management 09/06/2023 Patient this morning is still tachypneic and short of breath with some expiratory wheezing, his kept on IV Lasix 40 mg every 8 hours and IV Solu-Medrol 60 mg. His creatinine 0.7 today. Postop labs look stable. Patient is asking specifically about more pain medication of opioids and Valium, risks and benefits are explained for him and he verbalized understanding and acceptance Maze on home dose of liquids, Zithromax, Solu-Medrol 60 mg on IV Lasix which going to switch him to twice daily 09/07/2023 Patient breathing is improved on close to baseline, no wheezing, mildly tachypn eic while at rest, patient is seen in bed most of the time Is hemodynamically stable Labs look stable with dilute BC at 12,000 while he is on steroids, hemoglobin and creatinine are stable and within the reference range. He remains on Zithromax, home dose of liquids 5 mg, IV Lasix 40 mg twice daily, IV Solu-Medrol Patient is getting medically stable for discharge. However patient is not helping himself regarding his discharge, for example Tylenol did not pick that ECF he needs to go for rehab. We tried to encourage the patient. As discussed with the bedside nurse and outsole caser Patient may be considered for discharge soon 09/08/2023 Patient breathing is improving slowly and gradually. Remains on IV salmeterol 60 mg and IV Lasix 40 mg twice daily Patient possible discharge to subacute rehab Sugar still uncontrolled at Levemir 10 units daily on the top of his 20 units at bedtime Possible discharge in 24-48 hours 09/09/2023 Patient breathing improving slowly and gradually, no chest pain no coughing. No other new complaints I have lengthy discussion with the patient about his problems and mechanism of his COPD and the treatment strategy and he verbalized understanding and accep tance. Patient cirrhosis wish to prednisone Plan to switch IV Lasix to oral dose Patient requires ECF for rehab upon discharge Possible discharge in 24-48 hours if he keeps improving 09/10/2023 Patient still somewhat dyspneic but close to baseline No new complaint Currently he is placed on prednisone as well as his home dose of Eliquis, Lasix and Zithromax Clonidine is added for better blood pressure control, heart rate control and also would help with the patient moved Pending prior authorization per my discussion with case management 09/11/2023 Patient breathing is improving, however he still have some wheezing which is expected to persist given his severe degree of COPD His current it continued on a prednisone 40 mg with improvement creatinine is stable therefore continue with IV Lasix 40 mg for now Check creatinine tomorrow Blood pressure is better controlled after adding clonidine His continue on Zithromax Pending placement to subacute rehab 09/12/2023 Patient is with a chronic wheezing and chronic dyspnea, however patient is able of talking without difficulty and his oxygen requirements are stable over several days Also patient is diuresing well with IV Lasix and creatinine stable therefore we'll keep it on diuretics that looks like patient is improving. His blood pressure in the low side decreased clonidine 0.1 mg twice daily and to once daily His sugar in the low side in the morning the patient was walking to decrease his Levemir 15 units to 20 units. This is because his IV steroids was discharged to oral prednisone Plan for patient to go to subacute rehab upon discharge 09/13/2023 Patient is still complaining from shortness breath and wheezing especially when he walked into the room most of this wheezing comes from the upper airways. Also patient complains from pain since the chest wall and also hold with asking him medication which compromised his breathing is more. Patient oxygen requirement in 3-4 L/m Patient is still pending placement and other places of ECF decline patient I discussed the case with outsole caser, [place] patient and daughter requested hospice consult for information. As per staff patient has been under hospice care before 09/14/2023 Patient does not improve much with treatment. Patient also was complaining from dyspnea and chest pain despite multiple medications. pt oxygen requirement is 4 l/m wbc of 9.8, hemoglobin 10.8 , creatinin 0.5 Patient remains on Eliquis, steroids and diuretics Patient and daughter requested hospice consult for information per my discussion with medical social worker. Objective - Vital Signs Vital signs: Vital Signs Temp 97.8 F 09/14/23 13:21 Pulse 105 H 09/14/23 15:45 Resp 17 09/14/23 13:21 BP 100/67 09/14/23 13:21 Pulse Ox 96 09/14/23 13:21 FiO2 Intake & Output 09/13/23 09/14/23 09/14/23 18:59 06:59 18:59 Output Total 2150 Balance -2149 Output: Urine 2150 Other: Voiding Method Urinal Urinal # Voids 3 - Exam GENERAL: The patient is alert and oriented x3, not in any acute distress. Well developed, well nourished. HEENT: Pupils are round and equally reacting to light. EOMI. No scleral icterus. No conjunctival pallor. Normocephalic, atraumatic. No pharyngeal erythema. No thyromegaly. CARDIOVASCULAR: S1 and S2 present. No murmurs, rubs, or gallops. -PULMONARY: Chest is clear to auscultation, bilateral expiratory wheezing , no crackles. ABDOMEN: Soft, nontender, nondistended, normoactive bowel sounds. No palpable organomegaly. MUSCULOSKELETAL: No joint swelling or deformity. EXTREMITIES: No cyanosis, clubbing, or pedal edema. NEUROLOGICAL: Gross neurological examination did not reveal any focal deficits. SKIN: No rashes. no petechiae. - Labs CBC & Chem 7: 09/12/23 06:15 09/12/23 06:15 Labs: Abnormal Lab Results - Last 24 Hours (Table) 09/13/23 09/14/23 09/14/23 Range/Units 20:26 05:57 10:47 POC Glucose (mg/dL) 260 H 181 H 230 H (70-110) mg/dL Assessment and Plan Assessment: 1. Weakness/generalized debility versus metabolic encephalopathy ( improved ) related to acute renal injury -- We will consult PT/OT for further evaluation -- Case management for discharge planning, possible ECF for subacute rehab 2. Acute COPD exacerbation not quite improving back to baseline as per patient has chronic wheezing and dyspnea - Continue with oral prednisone - Pulmonary team consult - None requested hospice consult for information 3. Mild [facility]; increase fluid intake; monitor renal function and electrolytes; avoid nephrotoxins and hypotension Improving 4. Chronic hypoxic respiratory failure; continue with home oxygen therapy 5. Acute on Chronic CHF with reduced EF of 40-45% - Echocardiogram reveals slight ventricular dilation - Continue with IV Lasix for another day and may switch him to oral dose in 24- 48 hours 6. Chronic atrial fibrillation; continue with systemic anticoagulation; patient remains rate controlled 7. Hypertension; metoprolol 50 g twice a day 8. Hyperlipidemia; Lipitor 40 mg 2 daily at bedtime 9. Diabetes mellitus type 2 with long-term insulin use DVT prophylaxis; SCDs CODE STATUS; full code
[2023-09-15 08:14] VITALS: RESP 23
[2023-09-15] MEDS: FUROSEMIDE 10 MG/ML 4 ML VIAL IV SCH (08:19)
[2023-09-15] MEDS: predniSONE 20 MG TAB PO SCH (08:19)
[2023-09-15] MEDS: metFORMIN 500 MG TAB PO SCH (08:20)
[2023-09-15] MEDS: POTASSIUM CHLORIDE ER 20 MEQ TAB.ER PO SCH (08:20)
[2023-09-15] MEDS: cloNIDine HCL 0.1 MG TAB PO SCH (08:20)
[2023-09-15] MEDS: METOPROLOL TARTRATE 50 MG TAB PO SCH (08:20)
[2023-09-15] MEDS: APIXABAN 5 MG TAB PO SCH (08:20)
[2023-09-15] MEDS: BUDESONIDE 0.5 MG/2 ML NEBU INHALATION SCH (08:20)
[2023-09-15] MEDS: IPRATROPIUM-ALBUTEROL 3 ML NEB INHALATION SCH ×3 (08:21→15:21)
[2023-09-15] MEDS: NYSTATIN 100,000 UNIT/GM POWD 15 GM TOPICAL SCH ×2 (08:21→16:42)
[2023-09-15] MEDS: FORMOTEROL FUMARATE 20 MCG/2 ML NEBU INHALATION SCH (08:21)
[2023-09-15 11:13] LABS: Glucose,Whole Blood 118 mg/dL (70-110)
[2023-09-15 13:48] VITALS: BP 113/61; TEMP 97.6
--- NOTE | 2023-09-15 15:42 | P.PN ---
Subjective Progress Note Date: 09/15/23 Principal diagnosis: Chronic hypoxic respiratory failure with recurrent episodes of acute exacerbation of COPD This is a 72-year-old male patient with a past medical history significant for severe oxygen dependent COPD, normally maintained on 3 L/m nasal cannula, congestive heart failure, chronic atrial fibrillation, diabetes mellitus, hyperlipidemia, hypertension, obesity, GERD and is a ongoing chronic smoker. He was staying at [facility] rehab facility. He has had multiple multiple readmissions to the hospital. He was just discharged from here on 09/01/2023 to home. He had refused to go to subacute rehabilitation. 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 The next day EMS was called to his house and he was still in a chair sitting in feces and urine unable to get up and get himself to the bathroom. He was admitted again on 09/02/2023. He is seen today in consultation. He sitting up in a chair. Awake and alert in no acute distress. He is maintaining O2 saturations in the mid to upper 90s on 3 L/m per nasal cannula. He is afebrile. Hemodynamically stable. The x-ray continues to show cardiomegaly with pulmonary vascular congestion and small bilateral effusions. EKG reveals atrial fibrillation with a controlled ventricular response. White count 15.8. Hemoglobin 11.7. Platelets 231. Sodium 136. Potassium 3.9. Bicarb 33. BUN 20. Creatinine 0.8. Glucose 156. BNP 429. Troponins negative. On today's evaluation of 09/06/2023, the patient has no specific complaints. Is complaining of some ongoing shortness of breath which is attributed to his chronic COPD. The patient was hospitalized as the patient is unable to take care of himself. The patient wants to go to rehabilitation and is interested in going to [facility] on the burns. He is on bronchodilators. He is on steroids. Is on antibiotics. Outpatient medications have been all resumed. In terms of labs, the white cell count at 17 with a hemoglobin 10.4 and a platelet count of 213, sodium is at 136, potassium is at 3.2, BUN is at 20 with a creatinine of 0.7 and a blood sugars at 257. The patient is on insulin and a formal Levemir 20 units daily at bedtime and NovoLog sliding scale coverage. He is also on a nicotine patch. He is chronically debilitated with chronic hypoxic respiratory failure and advanced COPD. On today's evaluation of 09/07/2023, the patient's condition is stable. The patient's respiratory status is adequate and is gradually improving. Less short of breath compared to yesterday. Remains on broke a dilated. Remains on steroids. We'll ask case management to work on discharge planning on this patient as the patient may benefit from fdc placement. He is still interested in ECF. No new complaints otherwise for now. The echoes at 12.8, he was to 0.5, BUN is at 20 with a creatinine of 0.7 and a sodium level is at 140. On 08/31/2023, no new complaints and the patient is being treated for COPD exacerbation is also being diuresed. Remains on bronchodilators. Remains on steroids. Remains on diuretics. At the same time, were looking into placement for fdc for this patient. Case management is on the case. No new labs are available from today. Blood sugars are slightly elevated related to the use of systemic steroids. He is currently on 3 L of O2 nasal cannula. On today's evaluation of 09/09/2023, no new complaints and the patient is still being treated for COPD exacerbation and the same time he is being considered for placement. The patient on IV Solu-Medrol. The patient is on room air oxygen with a pulse ox of 96%. Hemodynamically, the patient is stable. No new labs are available from today. On 09/10/2023, no new complaints and the patient is still being treated for an acute choked exacerbation. Is currently on a prednisone burst taper starting with 40 mg. He remains on Symbicort. He is on [facility] [id number]. Working on placement. No new labs are available from today. He is on 3 L with a pulse ox of 96% On 09/11/2023, the patient is sitting up on a recliner. Continues to receive the same bronchodilators. Continues to be on a prednisone 40 mg by mouth daily. No new complaints. Hemodynamically stable on 40s of Oxymizer nasal cannula with a pulse ox of 99%. No chest pain. Medications remain essentially unchanged. Remains on anticoagulation with Eliquis 5 mg by mouth twice a day. Remains on Levemir insulin 20 units and a sliding scale coverage. Meanwhile, the patient continues to diabetes. Overall fluid balance is -1.5 L over the pa st 24 hours. He is producing excellent urine output. Electrolytes need to be checked as long as the patient remains on aggressive diuresis regimen. He remains on Lasix 40 mg IV every 12 hours. On 09/12/2023, the patient started complaining of shortness of breath. Earlier this morning, he had some increased bronchospasm and wheeze. Was placed in bed. He is feeling better already. He is on prednisone burst taper. He is on Symbicort is on DuoNeb updrafts. He is on theophylline. He has advanced lung disease with chronic shortness of breath and dyspnea. He continues to receive diuretics and the patient is currently on Lasix 40 mg IV every 12 hours. He remains on long-term and coagulation with Eliquis. The blood work from today shows a BUN of 21 with a creatinine of 0.5 and a sodium levels of 139. Potassium is at 3.6. White cell cause of 9.8 with a hemoglobin of 10.8. Fluid balance has been -8 50 mL over the past 24 hours and the patient is headed towards another liters negative fluid balance over the next 24 hours. His been diuresing adequately during this current hospital stay. The patient is seen today 09/13/2023 in follow-up on the regular medical floor. He is currently sitting up in bed. Awake and alert in no acute distress. He is maintaining O2 saturations in the mid 90s on 4 L/m per nasal cannula. Afebrile. Hemodynamically stable. Glucose 206. He is continued on DuoNeb inhalations, Pulmicort and Perforomist inhalations, theophylline, prednisone taper. He is anticoagulated with Eliquis. Remains on IV diuretics. He is currently in a - 1.5 L balance. The patient is seen today 09/14/2023 for follow-up on the regular medical floor. He is awake and alert in no acute distress. He is breathing is the same today as yesterday. No worse. He continues to maintain O2 saturations in the 90s on 4 L/m per nasal cannula. She's been afebrile. Hemodynamically stable. Glucose 181. He is continued on DuoNeb inhalations, Pulmicort and Perforomist inh alations, theophylline, prednisone taper. He is anticoagulated with Eliquis. Remains on IV diuretics. He is currently in a -2.1 L balance. 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 Reevaluated today on 09/15/23, patient is basically the same, continues to complain of not feeling well, continues to have aches and pains, patient is maximized on therapy for his COPD, he is also anticoagulated on eliquis, remains on diuretics, not much of improvement has been made. Yesterday I discussed with the patient the issue of hospice, patient is being considered for [facility] hospice at this point. Objective - Vital Signs Vital signs: Vital Signs Temp 97.6 F 09/15/23 13:31 Pulse 90 09/15/23 15:21 Resp 23 09/15/23 13:31 BP 113/61 09/15/23 13:31 Pulse Ox 91 L 09/15/23 13:31 FiO2 Intake & Output 09/14/23 09/15/23 09/15/23 18:59 06:59 18:59 Output Total 950 1855 1500 Balance -950 -1855 -1500 Output: Urine 950 1855 1500 Other: Voiding Method Urinal Urinal - Exam GENERAL EXAM: Alert, oriented, weak 72-year-old male, on 4 L nasal cannula HEAD: Normocephalic. EYES: Normal reaction of pupils, equal size. NOSE: Clear with pink turbinates. THROAT: No erythema or exudates. NECK: No masses, no JVD. CHEST: No chest wall deformity. LUNGS: Crackles persist bilaterally with expiratory wheezing CVS: S1 and S2 normal with no audible murmur, regular rhythm. ABDOMEN: No hepatosplenomegaly, normal bowel sounds, no guarding or rigidity. SKIN: No rashes CENTRAL NERVOUS SYSTEM: No focal deficits, tone is normal in all 4 extremities. EXTREMITIES: There is 1+ peripheral edema. No clubbing, no cyanosis. Peripheral pulses are intact. - Labs CBC & Chem 7: 09/12/23 06:15 09/12/23 06:15 Labs: Abnormal Lab Results - Last 24 Hours (Table) 09/14/23 09/14/23 09/15/23 Range/Units 16:54 20:04 05:53 POC Glucose (mg/dL) 288 H 261 H 149 H (70-110) mg/dL 09/15/23 Range/Units 11:12 POC Glucose (mg/dL) 118 H (70-110) mg/dL Assessment and Plan Assessment: Impression: Chronic hypoxic respiratory failure secondary to recurrent episodes of COPD exacerbation Tobacco dependence syndrome Chronic diastolic congestive heart failure Benign essential hypertension Multiple comorbidities and multiple admissions to the hospital with COPD exacerbation and recurrent diastolic congestive heart failure Type 2 diabetes with diabetic neuropathy Chronic pain syndrome Large umbilical hernia Recommendation: Continue oxygen Continue bronchodilators Agree with hospice at fdc Patient is very agreeable to the idea of hospice and I think this is the most appropriate. We will continue to follow Time with Patient: Less than 30
[2023-09-15 15:45] VITALS: PULSE 92
[2023-09-15 16:37] LABS: Glucose,Whole Blood 289 mg/dL (70-110)
--- NOTE | 2023-09-17 17:30 | P.DS ---
Providers Date of admission: 09/02/23 18:06 Attending physician: Gisela Munoz Consults: 09/04/23 09:46 Consult Physician Stat Consulting Provider: Phong Shaikh Consult Reason/Comments: chest pain Do you want consulting provider notified?: Yes 09/04/23 13:28 Consult Physician Stat Consulting Provider: Calvin Martin Consult Reason/Comments: SOB/ pleural effusion Do you want consulting provider notified?: Yes Primary care physician: [facility] Course: Final Diagnosis Weakness/generalized debility versus metabolic encephalopathy ( improved ) related to acute renal injury Acute COPD exacerbation not quite improving back to baseline as per patient has chronic wheezing and dyspnea Mild [facility]; increase fluid intake; monitor renal function and electrolytes; avoid nephrotoxins and hypotension Chronic hypoxic respiratory failure; continue with home oxygen therapy Acute on Chronic CHF with reduced EF of 40-45% Chronic atrial fibrillation; continue with systemic anticoagulation Hypertension Hyperlipidemia Diabetes mellitus type 2 with long-term insulin use Discharge Disposition Patient is stable for [facility]. Hospital Course 72-year-old male presents with weakness and unable to ambulate at home. He has a history of COPD, A. fib. Was recently hospitalized at our facility and discharged home yesterday. States he was discharged home with home health care. He was refusing transfer to a rehab facility. Patient subsequently went home and sat in his chair. He was defecating and urinating on himself. He was too weak to get up and ambulate. Presents again today stating that he does feel he needs to be in a nursing facility. He did not take any of his medications today. Denies any chest pain. Has chronic shortness of breath. No other michelle viating, precipitating or modified factors Upon arrival to ED patient was found to be disheveled and covered in feces and urine. EKG reveals atrial fibrillation with heart rate of [address] e levation or depression. Blood work completed views a WBC of 17, hemoglobin of 12.5, platelet count of 309, sodium 133 AND 2.7, BUN/creatinine of 25/0.58, lactic acid of 2.2 and troponin at 0.0-4. Chest x-ray reported as cardiac silhouette mildly enlarged but pulmonary vessels within normal limits; questionable small bilateral pleural effusion on lateral films Patient is admitted for weakness and debility and adult failure to thrive; we will need consult with case management for discharge. He was treated with IV lasix, IV steroids and metoprolol was increased by cardiology. Patient was recommended for ECF on discharge. Patient and family have decided on hospice for his end staged COPD. Thank you for allowing us to participate with the care of this patient. The impression and plan of care has been dictated by Geetha Domingo, Nurse Practitioner as directed. Dr. Jean Carlos MD I have performed a history and physical examination and medical decision making of this patient, discussed the same with the dictator, and agree with the dictators assessment and plan as written, documented as a scribe. Based on total visit time, I have performed more than 50% of this visit. Patient Condition at Discharge: Fair Plan - Discharge Summary Discharge Rx Participant: No New Discharge Prescriptions: New Nystatin 100,000 Unit/gm Powd [Mycostatin Powder] 1 applic TOPICAL TID each Pantoprazole [Protonix] 40 mg PO AC-BID tab Continue Apixaban [Eliquis] 5 mg PO BID #60 tab Escitalopram [Lexapro] 5 mg PO HS metFORMIN HCL [Glucophage] 500 mg PO BID tab DULoxetine HCL [Cymbalta] 30 mg PO HS Budesonide-Formot 160-4.5 Mcg [Symbicort 160-4.5 Mcg Inhaler] 2 puff INHALATION RT-BID 30 Days #1 each Nicotine 21Mg/24Hr Patch [Habitrol] 1 patch TRANSDERM HS Insulin Glargine-Yfgn [Semglee (Yfgn) Pen] 20 units SQ HS Tamsulosin [Flomax] 0.4 mg PO HS Theophylline Anhydrous [Theophylline ER] 400 mg PO DAILY@0600 Metoprolol Tartrate [Lopressor] 50 mg PO BID tab Atorvastatin Calcium [Lipitor] 40 mg PO HS Ipratropium-Albuterol Nebulize [Duoneb 0.5 mg-3 mg/3 ml Soln] 3 ml INHALATION RT-QID each Ipratropium-Albuterol Nebulize [Duoneb 0.5 mg-3 mg/3 ml Soln] 3 ml INHALATION RT-Q2H PRN each PRN Reason: Shortness Of Breath Or Wheezing Fluticasone Nasal [place] [Flonase Nasal [place]] 2 spray EA NOSTRIL DAILY PRN #7 ml PRN Reason: Allergy Symptoms Lidocaine 4% Patch 1 patch TOPICAL DAILY #30 patch HYDROcodone/APAP 10-325MG [[place] 10-325] 1 tab PO Q4H PRN #4 tab PRN Reason: Pain diazePAM [Valium] 5 mg PO DAILY PRN #1 tab PRN Reason: Anxiety Insulin Lispro See Protocol SQ ACHS Spironolactone [Aldactone] 25 mg PO DAILY@0600 Furosemide [Lasix] 40 mg PO BID@0600,1400 Potassium Chloride ER [K-Dur 20] 20 meq PO DAILY Pregabalin [Lyrica] 75 mg PO HS guaiFENesin [Mucinex] 1,200 mg PO HS Dapagliflozin Propanediol [Farxiga] 10 mg PO DAILY@0600 predniSONE See Taper PO DIRECTED #15 tab Discharge Medication List Apixaban [Eliquis] 5 mg PO BID #60 tab 07/08/20 [Rx] Tamsulosin [Flomax] 0.4 mg PO HS 12/07/21 [History] Theophylline Anhydrous [Theophylline ER] 400 mg PO DAILY@0600 02/18/22 [History] Escitalopram [Lexapro] 5 mg PO HS 08/29/22 [History] Metoprolol Tartrate [Lopressor] 50 mg PO BID tab 09/07/22 [Rx] metFORMIN HCL [Glucophage] 500 mg PO BID tab 09/07/22 [Rx] Atorvastatin Calcium [Lipitor] 40 mg PO HS 12/31/22 [History] DULoxetine HCL [Cymbalta] 30 mg PO HS 12/31/22 [History] Budesonide-Formot 160-4.5 Mcg [Symbicort 160-4.5 Mcg Inhaler] 2 puff INHALATION RT-BID 30 Days #1 each 08/22/23 [Rx] Fluticasone Nasal [place] [Flonase Nasal [place]] 2 spray EA NOSTRIL DAILY PRN #7 ml 08/22/23 [Rx] Ipratropium-Albuterol Nebulize [Duoneb 0.5 mg-3 mg/3 ml Soln] 3 ml INHALATION RT-Q2H PRN each 08/22/23 [Rx] Ipratropium-Albuterol Nebulize [Duoneb 0.5 mg-3 mg/3 ml Soln] 3 ml INHALATION RT-QID each 08/22/23 [Rx] Lidocaine 4% Patch 1 patch TOPICAL DAILY #30 patch 08/22/23 [Rx] HYDROcodone/APAP 10-325MG [[place] 10-325] 1 tab PO Q4H PRN #4 tab 08/24/23 [Rx] diazePAM [Valium] 5 mg PO DAILY PRN #1 tab 08/24/23 [Rx] Dapagliflozin Propanediol [Farxiga] 10 mg PO DAILY@0600 08/28/23 [History] Furosemide [Lasix] 40 mg PO BID@0600,1400 08/28/23 [History] Insulin Glargine-Yfgn [Semglee (Yfgn) Pen] 20 units SQ HS 08/28/23 [History] Insulin Lispro See Protocol SQ ACHS 08/28/23 [History] Nicotine 21Mg/24Hr Patch [Habitrol] 1 patch TRANSDERM HS 08/28/23 [History] Potassium Chloride ER [K-Dur 20] 20 meq PO DAILY 08/28/23 [History] Pregabalin [Lyrica] 75 mg PO HS 08/28/23 [History] Spironolactone [Aldactone] 25 mg PO DAILY@0600 08/28/23 [History] guaiFENesin [Mucinex] 1,200 mg PO HS 08/28/23 [History] Nystatin 100,000 Unit/gm Powd [Mycostatin Powder] 1 applic TOPICAL TID each 09/15/23 [Rx] Pantoprazole [Protonix] 40 mg PO AC-BID tab 09/15/23 [Rx] predniSONE See Taper PO DIRECTED #15 tab 09/15/23 [Rx] Follow up Appointment(s)/Referral(s): Elver Jackson MD [Primary Care Provider] - 1-2 days (Please call for follow-up appointment.) Activity/Diet/Wound Care/Special Instructions: Discharge to [facility] Discharge Disposition: HOME WITH HOSPICE
== END 2023-09-15 17:59 | disposition hospice, home (50) | DRG 291 ==
LOC: EC 12:59 → OBSVTOIN 18:06 → 4SSUR 18:06
PROVIDERS: ADMIT Hospitalist; ATTEND Hospitalist
DX: I11.0 Hypertensive heart disease with heart failure (principal); I50.23 Acute on chronic systolic (congestive) heart failure; J96.11 Chronic respiratory failure with hypoxia; J44.1 Chronic obstructive pulmonary disease with (acute) exacerbation; I48.20 Chronic atrial fibrillation, unspecified; I27.22 Pulmonary hypertension due to left heart disease; R62.7 Adult failure to thrive; E11.42 Type 2 diabetes mellitus with diabetic polyneuropathy; E66.01 Morbid (severe) obesity due to excess calories; Z79.4 Long term (current) use of insulin; Z68.31 Body mass index [BMI] 31.0-31.9, adult; Z99.81 Dependence on supplemental oxygen; Z51.5 Encounter for palliative care; Z79.01 Long term (current) use of anticoagulants; E78.5 Hyperlipidemia, unspecified; G89.4 Chronic pain syndrome; K21.9 Gastro-esophageal reflux disease without esophagitis; M54.9 Dorsalgia, unspecified; M25.552 Pain in left hip; M25.551 Pain in right hip; M25.562 Pain in left knee; M25.561 Pain in right knee; M25.522 Pain in left elbow; M25.521 Pain in right elbow; M25.512 Pain in left shoulder; M25.511 Pain in right shoulder; Z79.84 Long term (current) use of oral hypoglycemic drugs; Z79.899 Other long term (current) drug therapy; Z79.51 Long term (current) use of inhaled steroids; Z88.8 Allergy status to other drugs, medicaments and biological substances; Z88.1 Allergy status to other antibiotic agents; Z88.0 Allergy status to penicillin; Z87.891 Personal history of nicotine dependence; Z82.5 Family history of asthma and other chronic lower respiratory diseases; Z82.49 Family history of ischemic heart disease and other diseases of the circulatory system; Z91.81 History of falling
CPT/HCPCS: 36415; 71045; 71046; 80048; 80053; 83605; 83735; 83880; 84145; 84484; 85025; 85610; 85730; 93005; 94640; 94760; 99285